=== PATIENT | female | born 1945 | race Caucasian/White ===

== ENCOUNTER 2024-01-08 07:06 | Inpatient (IN) | payer MEDICARE, BC, SELFPAY ==
[2024-01-08] VITALS (22 sets, daily range): BP systolic 117–207; BP diastolic 59–132; PULSE 105–125; RESP 14–28; TEMP 36.4–38.7; O2SAT 92–99; BMI 22.8; BMI 22.5; BMI 22.6
--- NOTE | 2024-01-08 07:14 | CT_ITS ---
EXAM: CT ANGIOGRAPHY HEAD AND NECK WITH INTRAVENOUS CONTRAST CLINICAL INDICATION: Neuro deficit, acute, stroke suspected TECHNIQUE: [place]/head and neck CT angiography protocol performed with intravenous contrast. This CT exam was performed using one or more of the following dose reduction techniques: automated exposure control, adjustment of the mA and/or kV according to patient size, and/or use of iterative reconstruction technique. MIP reconstructed images were created and reviewed. CONTRAST: IV 100mL [id number] RADIATION DOSE: Total DLP: 695.71 mGy-cm. COMPARISON: Nonenhanced cranial CT of this same date. FINDINGS: HEAD: RIGHT ANTERIOR CEREBRAL ARTERY: Nondominant/small A1 segment. No occlusion or significant stenosis. Anterior communicating artery is present. No aneurysm. RIGHT MIDDLE CEREBRAL ARTERY: Unremarkable. No occlusion or significant stenosis. No aneurysm. No filling defect. RIGHT POSTERIOR CEREBRAL ARTERY: Patent posterior communicating artery with hypoplastic P1 segment.. No occlusion or significant stenosis. No aneurysm. RIGHT INTRACRANIAL INTERNAL CAROTID ARTERY: Calcified plaque within the cavernous carotid causes less than 50% stenosis. Calcified plaque in the supraclinoid segment causes moderate stenosis. No dissection or occlusion. RIGHT INTRACRANIAL VERTEBRAL ARTERY: Nondominant. Terminates in PICA. LEFT ANTERIOR CEREBRAL ARTERY: Dominant left A1 segment. No occlusion or significant stenosis. No aneurysm. LEFT MIDDLE CEREBRAL ARTERY: Unremarkable. No occlusion or significant stenosis. No aneurysm. No filling defect. LEFT POSTERIOR CEREBRAL ARTERY: Primarily fills via the basilar tip with a tiny patent posterior communicating artery. 4 mm in length segment of moderate smooth stenosis of the proximal P2 segment, best seen on axial image 85 of series 601 and coronal image 112 of series 605. LEFT INTRACRANIAL INTERNAL CAROTID ARTERY: Calcified plaque in the cavernous carotid causes less than 50% stenosis. Calcified plaque in the supracavernous carotid causes moderate-severe stenosis. No dissection or occlusion. LEFT INTRACRANIAL VERTEBRAL ARTERY: Dominant. Calcified plaque causes mild stenosis of the fourth segment. BASILAR ARTERY: Unremarkable. No occlusion or significant stenosis. No aneurysm. OTHER VASCULATURE: No vascular malformation. The dural venous sinuses enhance normally. No enhancing intracranial mass. No acute infarction identified. NECK: RIGHT COMMON CAROTID ARTERY: Calcified plaque at the carotid bulb causes less than 50% stenosis. No significant stenosis. No dissection or occlusion. RIGHT EXTRACRANIAL INTERNAL CAROTID ARTERY: Unremarkable. No significant stenosis. No dissection or occlusion. RIGHT EXTERNAL CAROTID ARTERY: Severe stenosis at its origin due to calcified plaque. RIGHT EXTRACRANIAL VERTEBRAL ARTERY: Nondominant/very small. No dissection or occlusion. LEFT COMMON CAROTID ARTERY: Calcified plaque at the carotid bulb causes less than 50% stenosis. No significant stenosis. No dissection or occlusion. LEFT EXTRACRANIAL INTERNAL CAROTID ARTERY: Unremarkable. No significant stenosis. No dissection or occlusion. LEFT EXTERNAL CAROTID ARTERY: Calcified plaque at the origin causes less than 50% stenosis. No occlusion. LEFT EXTRACRANIAL VERTEBRAL ARTERY: Dominant. Calcified and noncalcified plaque within the first segment causes a short segment of moderate stenosis. Noncalcified plaque in the proximal second segment causes moderate eccentric stenosis. Calcified plaque in the third segment causes less than 50% stenosis. No dissection or occlusion. BRACHIOCEPHALIC AND SUBCLAVIAN ARTERIES: Unremarkable as visualized. No occlusion or significant stenosis. LUNG APICES: Visualized upper lungs are clear. The upper lobe pulmonary arteries show no filling defects. Aortic arch is normal in caliber and shows no intimal flap. HEAD and NECK: BONES/JOINTS: Severe narrowing of the upper thoracic disc spaces with flowing osteophytes. Degenerative narrowing of the C5/6 disc space. No discrete lytic or blastic abnormalities. SOFT TISSUES: Multiple thyroid nodules are present, larger on the left; calcified thyroid nodules are present and there is also a 2.8 cm heterogeneously enhancing left thyroid nodule, slightly displacing the trachea to the right. CAROTID STENOSIS REFERENCE USING NASCET CRITERIA: % ICA stenosis = (1 - narrowest ICA diameter/diameter of distal cervical ICA) x 100. Mild - <50% stenosis. Moderate - 50-69% stenosis. Severe - 70-94% stenosis. Near occlusion - 95-99% stenosis. Occluded - 100% stenosis. CT/STROKE CTA Head AND Neck W/Con IMPRESSION: No large vessel occlusion or MCA thrombus. Atherosclerotic disease with moderate-severe stenosis distal right ICA, moderate stenosis of the proximal left [employer] HEAD, and 2 segments of moderate stenoses of the left vertebral artery. 2.8 cm heterogeneously enhancing left thyroid nodule; ACR White Paper guidelines (Alfie BRITTON, et al. JACR 2015;12(2):143-50) suggest further evaluation with nonemergent thyroid ultrasound. Nonstandard communication protocol initiated and completed. N.B. : The above Results were Read Back by Marty Weaver MD to Edmond Irwin DO, and understanding confirmed on 01/08/2024 07:57:02 (ET). Electronically Signed: Marty Weaver MD at 8:01 EDT ,
--- NOTE | 2024-01-08 07:14 | EKG12_ITS ---
Test Reason : ALT LOC Blood Pressure : / mmHG Vent. Rate : 110 BPM Atrial Rate : 110 BPM P-R Int : 188 ms QRS Dur : 088 ms QT Int : 338 ms P-R-T Axes : 063 -03 045 degrees QTc Int : 457 ms Sinus tachycardia Otherwise normal ECG Confirmed by Charlie Maravilla ([id number]), makeup editor SULMA HADDAD ([id number]) on 01/09/2024 9:17:21 AM Referred By: Confirmed By:Charlie Maravilla
--- NOTE | 2024-01-08 07:14 | CT_ITS ---
STUDY: CT BRAIN WITHOUT CONTRAST REASON FOR EXAM: Female, 78 years old. Altered mental status. Stroke alert. RADIATION DOSAGE (If Supplied By Facility): CTDIvol = ( 44.99 ) mGy, DLP = ( 1659.71 ) mGycm TECHNIQUE: Transaxial CT imaging of the brain was performed without administration of intravenous contrast material. Individualized dose optimization techniques were used for this CT. COMPARISON: No relevant prior comparison study available FINDINGS: PARENCHYMA: There is no acute bleed or infarct. There are stable chronic ischemic and atrophic changes. VENTRICLES: There is no hydrocephalus. MASTOID AIR CELLS AND PARANASAL SINUSES: The visualized paranasal sinuses are clear. The mastoid air cells are clear. BONES: There is no skull fracture. SOFT TISSUES: The visualized soft tissues are within normal limits. CT/STROKE Brain/Head without Cont IMPRESSION: Stable chronic ischemic and atrophic changes. No acute intracranial abnormality. N.B. : The above Results were Read Back by Sarmad Talley MD to Corey Amador MD, and understanding confirmed on 01/08/2024 07:35:34 (ET). Electronically Signed: Sarmad Talley MD at 7:37 EDT ,
--- NOTE | 2024-01-08 07:42 | EX.ED.DYSGE1 ---
HPI History of Present Illness Chief Complaint: Alt LOC Narrative Narrative: 78-year-old female presenting with confusion. Stroke team was called due to garbled speech and confusion. was not here on arrival. Patient was met at the door by overnight ED physician and patient was taken to CT. Patient's showed up as I entered the room after CAT scan and he tells me that the last known well was 1130 last night when she started acting very erratic. He states he could hear her coming down the hallway with a walker and running into the ramirez and he feels like to look at her it looks like she could not see anything. He stated she walked out to the television and knocked off a speaker and he tried to get her back to bed. He put her in bed and lay down next to her but she was very restless and ended up walking back out to the living room onto their loveseat and was laying in odd positions per the and he states she did not look very comfortable manage to spend about 2 to 3 hours in the loveseat. Eventually he called EMS. Patient's states that they just recently moved and he states it was a very difficult move from [place]. He states that other than this she had done pretty well. She does not have a history of dementia. She does not take any sleep aids, opioids, drugs or abuse. He states that before they left [place] to move here they were constantly at the doctor's office which is more frequent than usual and as of late. Patient is unable to state her name, her speech is somewhat garbled at times. She believes her age is 33 years old. She denies any pain. also states that she was reaching for things in the air that were not there. 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 [facility] Home Medications ?Medication ?Instructions ?Recorded ?Last Taken ?Type atorvastatin 10 mg tablet 10 mg PO DAILY CHOLESTEROL 01/08/24 Unknown History carvedilol 25 mg tablet 25 mg PO BID HEART 01/08/24 Unknown History diltiazem HCl 120 mg 120 mg PO DAILY BLOOD PRESSURE 01/08/24 Unknown History capsule,extended release 24 hr duloxetine 30 mg capsule,delayed 30 mg PO DAILY DEPRESSION 01/08/24 Unknown History release glipizide 2.5 mg tablet, extended 2.5 mg PO DAILY BLOOD SUGAR 01/08/24 Unknown History release 24 hr lisinopril 20 mg tablet 20 mg PO DAILY BLOOD PRESSURE 01/08/24 Unknown History metformin 1,000 mg tablet 1,000 mg PO BID BLOOD SUGAR 01/08/24 Unknown History methimazole 5 mg tablet 5 mg PO UD THYROID 01/08/24 Unknown History omeprazole 20 mg capsule,delayed 20 mg PO DAILY GERD 01/08/24 Unknown History release Allergy/AdvReac Type Severity Reaction Status Date / Time Sulfa (Sulfonamide Allergy Intermediate NEEDS Verified 01/08/24 07:24 Antibiotics) FOLLOW-UP Social History Smoking Status: Never smoker ROS ROS ED Review of Systems ROS Unobtainable: due to mental condition and due to mental status EXAM Physical Exam Const Vital Signs: 01/08/24 07:07 01/08/24 07:14 01/08/24 07:21 Temperature 98.5 F 100.7 F H Temperature Source Oral Core Pulse Rate 105 H 115 H Respiratory Rate 22 H 20 H Blood Pressure 183/113 H 183/113 H Blood Pressure Mean 136 136 Pulse Ox 97 98 Oxygen Delivery Method Room Air Room Air Room Air 01/08/24 07:43 01/08/24 07:44 01/08/24 08:10 Temperature 100.3 F H 100.7 F H 100.8 F H Temperature Source Core Core Core Pulse Rate 115 H 118 H 120 H Respiratory Rate 14 18 20 H Blood Pressure 175/132 H 187/127 H 188/112 H Blood Pressure Mean 146 147 137 Pulse Ox 99 96 96 Oxygen Delivery Method Room Air Room Air Room Air 01/08/24 08:10 01/08/24 09:00 01/08/24 10:00 Temperature 100.8 F H 98.9 F 101.4 F H Temperature Source Core Temporal Core Pulse Rate 120 H 123 H 114 H Respiratory Rate 24 H 20 H 18 Blood Pressure 188/112 H 189/89 H 178/70 H Blood Pressure Mean 137 122 106 Pulse Ox 99 97 97 Oxygen Delivery Method Room Air Room Air Room Air Positive well nourished General Appearance ED: NAD HEENT Reports moist mucous membranes Eyes PERRL and EOMs intact bilaterally General Eye ED: Yes pale conjunctiva Chest Wall inspection of chest normal and palpation of chest normal Resp normal respiratory effort and clear to auscultation bilaterally Auscultation: Negative for rales, rhonchi or wheezes Cardio regular rate and regular rhythm GI normal to inspection, nondistended, normoactive bowel sounds Neuro oriented x3 and CN's II-XII intact bilaterally Sensorium / Orientation: alert Psych Psych Narrative: confused Attitude: agitated MDM MDM MDM Narrative Medical decision making narrative: Patient presenting with confusion. Her speech is slurred. She does not have any focal neurologic deficits or lateralizing signs or symptoms. She is able to move all 4 extremities and follow some commands. This appears to be more metabolic. Differential includes but is not limited to TIA, stroke, ACS, UTI, pneumonia, COVID, influenza, RSV, dehydration, anemia, electrolyte abnormalities. Patient has temperature of 100.3 Fahrenheit and she was given Tylenol. CBC will be obtained to assess white blood cell count, hemoglobin, platelets. BMP to assess renal function, electrolytes, glucose. High-sensitivity troponin and EKG to assess for ischemia/dysrhythmia. Chest x-ray to rule out pneumonia. Urinalysis to assess for UTI. CBC shows slight leukocytosis of 12.3. Hemoglobin 12.7. Platelets are normal 331. Creatinine today is 1.43 with no comparison because she is from out of town. Glucose 566 without anion gap and sodium noted to be low at 130 likely due to the hyperglycemia. Lactic acid minimally elevated at 2.1. High-sensitivity troponin 54. EKG interpreted by myself shows a sinus tachycardia at 110 bpm. Chest x-ray on my interpretation shows no acute cardiopulmonary process. Radiologist interprets this and agrees. CT of the brain and CTA were negative. This does appear to be more metabolic. Urinalysis is negative for infection. Patient's fever was treated with a gram of Tylenol. COVID, influenza, RSV all negative. Patient was given 2 L of IV fluids. Her blood sugar still 531. Patient was given insulin. Discussed all findings with her and we plan to admit the patient due to altered mental status and hyperglycemia. Impression: 1. Altered mental status 2. Hyperglycemia 3. Renal insufficiency Lab Data Labs: Laboratory Results - last 24 hr 01/08/24 01/08/24 01/08/24 06:48 07:42 08:21 WBC 12.3 H RBC 4.58 Hgb 12.7 Hct 40.1 MCV 87.6 MCH 27.7 MCHC 31.7 L RDW Std Deviation 39.3 RDW Coeff of Carmen 12.2 Plt Count 331 MPV 11.1 Immature Gran % (Auto) 0.200 Neut % (Auto) 88.4 H Lymph % (Auto) 6.7 L [place] % (Auto) 3.7 Eos % (Auto) 0.4 Baso % (Auto) 0.6 Absolute Neuts (auto) 10.9 H Absolute Lymphs (auto) 0.82 L Nucleated RBC % 0 PT 15.1 H INR 1.2 APTT 34.3 Sodium 130 L Potassium 4.0 Chloride 93 L Carbon Dioxide 31.0 Anion Gap 6 BUN 26 H Creatinine 1.43 H Estim Creat Clear Calc 31.33 Est GFR (MDRD) Af Amer 46 L Est GFR (MDRD) Non-Af 38 L BUN/Creatinine Ratio 18.2 Glucose 566 H* Lactic Acid 2.1 H* Calcium 10.3 H Total Bilirubin 0.60 Direct Bilirubin 0.21 AST 17 ALT 19 Alkaline Phosphatase 176 H Ammonia 13.0 Troponin I High Sens 54 Total Protein 8.4 H Albumin 4.2 Globulin 4.2 Urine Color Yellow Urine Clarity Clear Urine pH 8.0 Ur Specific [place] 1.010 Urine Protein 30 H Urine Glucose (UA) 1000 H Urine Ketones 15 H Urine Occult Blood 25 H Urine Nitrite Negative Urine Bilirubin Negative Urine Urobilinogen Normal Ur Leukocyte Esterase Negative Urine RBC 0-5 SEEN Urine WBC 0 SEEN Ur Squamous Epith Cells 0 SEEN Urine Bacteria 0 SEEN Urine Mucus 0 SEEN Radiography Diagnostic Testing: Clinical Impression(s) from Imaging Studies Brain CT 01/08/24 07:14 IMPRESSION: Stable chronic ischemic and atrophic changes. No acute intracranial abnormality. N.B. : The above Results were Read Back by Sarmad Talley MD to Corey Amador MD, and understanding confirmed on 01/08/2024 07:35:34 (ET). Electronically Signed: Sarmad Talley MD at 7:37 EDT , ADDENDUM: 01/08/24 0743 IMPRESSION: Stable chronic ischemic and atrophic changes. No acute intracranial abnormality. N.B. : The above Results were Read Back by Sarmad Talley MD to Corey Amador MD, and understanding confirmed on 01/08/2024 07:35:34 (ET). Electronically Signed: Sarmad Talley MD at 7:37 EDT , Head/Neck CTA 01/08/24 07:14 IMPRESSION: No large vessel occlusion or MCA thrombus. 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 2.8 cm heterogeneously enhancing left thyroid nodule; ACR White Paper guidelines (Judge JK, et al. JACR 2015;12(2):143-50) suggest further evaluation with nonemergent thyroid ultrasound. Nonstandard communication protocol initiated and completed. N.B. : The above Results were Read Back by Marty Weaver MD to Edmond Irwin DO, and understanding confirmed on 01/08/2024 07:57:02 (ET). Electronically Signed: Marty Weaver MD at 8:01 EDT , ADDENDUM: 01/08/24 0808 IMPRESSION: No large vessel occlusion or MCA thrombus. 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 2.8 cm heterogeneously enhancing left thyroid nodule; ACR White Paper guidelines (Alfie BRITTON, et al. JACR 2015;12(2):143-50) suggest further evaluation with nonemergent thyroid ultrasound. Nonstandard communication protocol initiated and completed. N.B. : The above Results were Read Back by Marty Weaver MD to Edmond Irwin DO, and understanding confirmed on 01/08/2024 07:57:02 (ET). Electronically Signed: Marty Weaver MD at 8:01 EDT , Chest X-Ray 01/08/24 08:10 IMPRESSION: No acute thoracic pathology. Electronically Signed: Sarmad Talley MD at 8:39 EDT , Discharge Plan Triage Chief Complaint: Alt LOC ED Provider: Edmond Irwin Dx/Rx/DC Orders Prescriptions: No Action methimazole 5 mg tablet 5 mg PO UD Rx Instructions: TAKE ONE TABLET (5 MG) BY MOUTH THREE TIMES A WEEK AND ALSO TAKE 1/2 TABLET (2.5 MG) ONCE A WEEK. diltiazem HCl 120 mg capsule,extended release 24hr 120 mg PO DAILY carvedilol 25 mg tablet 25 mg PO BID atorvastatin 10 mg tablet 10 mg PO DAILY lisinopril 20 mg tablet 20 mg PO DAILY glipizide 2.5 mg tablet extended release 24hr 2.5 mg PO DAILY metformin 1,000 mg tablet 1,000 mg PO BID omeprazole 20 mg capsule,delayed release(DR/EC) 20 mg PO DAILY duloxetine 30 mg capsule,delayed release(DR/EC) 30 mg PO DAILY Primary Care Provider: Radha Orlando Referrals: Radha Orlando DO [Primary Care Provider] - Print Language: Kyrgyz
[2024-01-08 07:53] LABS: Bacteria 0 SEEN /hpf (None Seen); Mucous, Urine 0 SEEN /hpf (<or=2+); Squamous Epithelial Cells - UA 0 SEEN /hpf (5-10); White Blood Cells 0 SEEN /hpf (0-5)
[2024-01-08 07:54] LABS: Color, Urine Yellow (Yellow); Glucose, Dipstick 1000 mg/dl (Normal); Ketone-Dipstick 15 mg/dl (Negative); Leukocyte Esterase-Dipstick Negative /ul (Negative); Nitrite-Dipstick Negative (Negative); Occult Blood-Urine 25 /ul (Negative); Protein-Dipstick 30 mg/dl (Negative); Urine Bilirubin Dipstick Negative (Negative); Urine Clarity Clear (Clear); Urine Urobilinogen Normal (Normal)
[2024-01-08] MEDS: Acetaminophen 500 MG Tablet 1000 MG PO (08:00)
[2024-01-08] MEDS: 0.9% Normal Saline (1000mL) 1,000 ML 999 ML IV ×2 (08:00→09:46)
[2024-01-08 08:04] LABS: Red Blood Cells-Urine 0-5 SEEN /hpf (0-5)
[2024-01-08 08:06] LABS: Anion Gap 6 (5-15); BUN 26 mg/dL (7-18); BUN/Creat Ratio 18.2 RATIO (10-20); Calcium,Total 10.3 mg/dL (8.5-10.1); Chloride 93 mmol/L (98-107); Creatinine, Serum 1.43 mg/dL (0.55-1.02); EST Glomerular Filtration Rate 38 mL/min (>60); Est Glom Filt Rate - Afr Amer 46 mL/min (>60); Estimated Creatinine Clearance 31.33 ml/min; Glucose 566 mg/dL (74-106); Sodium Level 130 mmol/L (136-145); Troponin-I HS 54 pg/mL (3.0-54.0)
--- NOTE | 2024-01-08 08:10 | RAD_ITS ---
STUDY: X-RAY CHEST REASON FOR EXAM: Female, 78 years old. Altered mental status TECHNIQUE: Frontal view of the chest COMPARISON: None. FINDINGS: The lungs are clear. There are no pleural effusions. There is no pneumothorax. The heart is normal in size. The visualized osseous structures are within normal limits. RAD/Chest 1 View IMPRESSION: No acute thoracic pathology. Electronically Signed: Sarmad Talley MD at 8:39 EDT ,
[2024-01-08 08:20] LABS: Absolute Lymphocyte Count 0.82 X10^3/uL (0.83-4.51); Absolute Neutrophil Count 10.9 X10^3/uL (2.0-7.7); Basophil# 0.07 X10^3/uL; Basophil% 0.6 % (0-1); Eosinophil# 0.05 X10^3/uL; Eosinophils% 0.4 % (0-5); Hematocrit 40.1 % (37-47); Hemoglobin 12.7 g/dL (12.0-15.0); Lymphocyte # 0.82 X10^3/ul (0.83-4.51); Lymphocyte % 6.7 % (19-41); Mean Corp Hgb Conc 31.7 g/dL (32-36); Mean Corpuscular Hgb 27.7 pg (27.0-32.0); Mean Corpuscular Volume 87.6 fL (81-99); Mean Platelet Vol. 11.1 fl (6.2-12.0); Monocyte# 0.46 X10^3/uL; Monocyte% 3.7 % (0-10); NRBC Flagged by Analyzer 0 % (0-5); Neutrophil # 10.86 X10^3/uL (2.7-7.7); Neutrophil % 88.4 % (47-70); Platelet Count 331 K/mm3 (150-450); RBC Distribution Width CV 12.2 % (11.6-14.6); RBC Distribution Width SD 39.3 fl (35.1-43.9); Red Blood Count 4.58 M/mm3 (4.2-5.4); White Blood Count 12.3 K/mm3 (4.4-11.0)
[2024-01-08 09:12] LABS: Lactic Acid 2.1 mmol/L (0.4-1.9)
--- NOTE | 2024-01-08 09:12 | ED.RN ---
Critical lab result of a lactic of 2.1. Dr. Irwin notified
[2024-01-08 09:28] LABS: AST(SGOT) 17 U/L (15-37); Alanine Aminotransfer ALT/SGPT 19 U/L (13-56); Albumin, Serum 4.2 g/dL (3.2-5.0); Alkaline Phosphatase 176 U/L (45-117); Bilirubin, Direct 0.21 mg/dL (0.00-0.30); Globulin 4.2 g/dL (2.2-4.2); Protein, Total 8.4 g/dL (6.4-8.2)
[2024-01-08 09:46] LABS: International Normalized Ratio 1.2; Prothrombin Time (Protime)PT. 15.1 SECONDS (11.7-14.9)
[2024-01-08 09:47] LABS: Partial Thromboplast Time 34.3 Seconds (24.1-36.2)
[2024-01-08] MEDS: LORazepam 2 MG/ML Syringe 1 MG IV (09:51)
--- NOTE | 2024-01-08 10:06 | PCM.HP.STD ---
HPI - General General Date of Admission: 01/08/24 Date of Service: 01/08/24 Chief Complaint: Altered mental status with headache HPI Narrative OLY REYES, is a 78 F who presented to [facility] ED on 01/08/2024 with altered mental status and headache. Saw patient at bedside in the ED. Patient's was there initially per ED staff but had left by the time I saw the patient. Patient was very somnolent when I saw her. Per ED staff, had been given a dose of Ativan for altered mentation with agitation, and this was quickly effective but did make her somnolent. She was maintaining her airway without issue and had good oxygen saturations, but she was not responding to any verbal commands and only arousing some to tactile stimulus. Per ED physician, on arrival patient was fairly agitated and was talking nonsensically and not answering questions appropriately. She was apparently grasping for things in the air that were not there. History is obtained from the patient's . Patient and recently moved back to [place] from [place] in early to mid November. noted that patient has had some cognitive decline over the past several months but she was still able to complete all ADLs and was not hindered much by this. He did note that since moving back they have constantly been on the go, and he has been concerned that this has been overwhelming for her and he does note that she has appeared more anxious than normal over the past month or so. Patient has history of anxiety/depression, [id number] type 2 diabetes mellitus, hypothyroidism, hypertension and hyperlipidemia. notes that they have been trying to take her medications on a regular basis but they have both missed some doses over the past few weeks. However, patient was generally in her normal state health until a few days ago. At that time she started to report a slight headache that did not seem to go away with conservative management. Patient then started to become more confused yesterday afternoon and into the evening. She seemed more agitated and twitching then normal and appeared to be having some mild hallucinations. Patient was not able to sleep much overnight and continued to have the symptoms, so brought her in for further evaluation. In the ED, patient was found to be hypertensive with sinus tachycardia and developed fever of 101F. Chest x-ray was unremarkable. UA was unremarkable. Abdomen was soft and nontender to palpation on exam. CT brain without contrast was unremarkable. CTA head/neck showed no large vessel occlusion or MCA thrombus, moderate to severe stenosis of distal right ICA and moderate stenosis of proximal left VISUAL SUPERVISOR; 2.8 cm heterogenously enhancing left thyroid nodule was also noted. Labs were notable for WBC count 12.3, sodium 130, chloride 93, BUN 26, creatinine 1.43 (baseline unknown), glucose 566, A1c 10.6, calcium 10.3. Patient was given some IV fluids and Humalog for the elevated blood sugar and was then admitted for further management. Given concern for possible meningitis, orders were placed for MRI brain with contrast and LP along with a teleneurology consult. MRI brain showed diffuse restricted diffusion in the cerebral cortex bilaterally most pronounced in the parietal occipital regions of indeterminate etiology. Unfortunately, LP was unable to be performed due to patient's severe scoliosis. Discussed patient over the phone with neurology this afternoon and is highest concern was for HSV encephalitis versus bacterial meningitis. He recommended that patient be started on vancomycin, cefepime, ampicillin and IV acyclovir for treatment. Spot EEG ordered. Also recommended that we attempt to complete an LP tomorrow if possible. He also recommended improved control of patient's blood sugars with volume resuscitation to see if this improves her mental status as well. [facility] Home Medications ?Medication ?Instructions ?Recorded ?Last Taken ?Type atorvastatin 10 mg tablet 10 mg PO DAILY CHOLESTEROL 01/08/24 Unknown History carvedilol 25 mg tablet 25 mg PO BID HEART 01/08/24 Unknown History diltiazem HCl 120 mg 120 mg PO DAILY BLOOD PRESSURE 01/08/24 Unknown History capsule,extended release 24 hr duloxetine 30 mg capsule,delayed 30 mg PO DAILY DEPRESSION 01/08/24 Unknown History release glipizide 2.5 mg tablet, extended 2.5 mg PO DAILY BLOOD SUGAR 01/08/24 Unknown History release 24 hr lisinopril 20 mg tablet 20 mg PO DAILY BLOOD PRESSURE 01/08/24 Unknown History metformin 1,000 mg tablet 1,000 mg PO BID BLOOD SUGAR 01/08/24 Unknown History methimazole 5 mg tablet 5 mg PO UD THYROID 01/08/24 Unknown History omeprazole 20 mg capsule,delayed 20 mg PO DAILY GERD 01/08/24 Unknown History release Allergy/AdvReac Type Severity Reaction Status Date / Time Sulfa (Sulfonamide Allergy Intermediate NEEDS Verified 01/08/24 07:24 Antibiotics) FOLLOW-UP Social History Smoking Status: Never smoker ROS Review of Systems ROS Unobtainable: due to encephalopathy Vital Signs Vital Signs Vital Signs: 01/08/24 07:07 01/08/24 07:14 01/08/24 07:21 Temperature 98.5 F 100.7 F H Temperature Source Oral Core Pulse Rate 105 H 115 H Respiratory Rate 22 H 20 H Blood Pressure 183/113 H 183/113 H Blood Pressure Mean 136 136 Pulse Ox 97 98 Oxygen Delivery Method Room Air Room Air Room Air 01/08/24 07:43 01/08/24 07:44 01/08/24 08:10 Temperature 100.3 F H 100.7 F H 100.8 F H Temperature Source Core Core Core Pulse Rate 115 H 118 H 120 H Respiratory Rate 14 18 20 H Blood Pressure 175/132 H 187/127 H 188/112 H Blood Pressure Mean 146 147 137 Pulse Ox 99 96 96 Oxygen Delivery Method Room Air Room Air Room Air 01/08/24 08:10 01/08/24 09:00 01/08/24 10:00 Temperature 100.8 F H 98.9 F 101.4 F H Temperature Source Core Temporal Core Pulse Rate 120 H 123 H 114 H Respiratory Rate 24 H 20 H 18 Blood Pressure 188/112 H 189/89 H 178/70 H Blood Pressure Mean 137 122 106 Pulse Ox 99 97 97 Oxygen Delivery Method Room Air Room Air Room Air Weight Weight: 64.41 kg Body Mass Index (BMI) 22.8 Physical Exam Const Constitutional Narrative: Very somnolent, not arousing to voice and minimally arousing to tactile stimulation. Maintaining airway without issue, breathing comfortably with good oxygen saturations. In no acute distress. HEENT normocephalic and head/scalp atraumatic Chest inspection of chest normal Resp normal respiratory effort, normal air movement, no use of accessory muscles and clear to auscultation bilaterally Cardio no murmurs and peripheral pulses 2+ throughout Cardio Narrative: Tachycardic, regular rhythm. GI normal to inspection, nondistended, normoactive bowel sounds, soft to palpation, non-tender and non-distended Back/Spine normal to inspection Extremity normal to inspection Skin no rashes or lesions noted Results Lab / Micro Data 01/08/24 06:48 01/08/24 06:48 Labs: Laboratory Results - last 24 hr 01/08/24 06:48: WBC 12.3 H, RBC 4.58, Hgb 12.7, Hct 40.1, MCV 87.6, MCH 27.7, MCHC 31.7 L, RDW Std Deviation 39.3, RDW Coeff of Carmen 12.2, Plt Count 331, MPV 11.1, Immature Gran % (Auto) 0.200, Neut % (Auto) 88.4 H, Lymph % (Auto) 6.7 L, Warrick % (Auto) 3.7, Eos % (Auto) 0.4, Baso % (Auto) 0.6, Absolute Neuts (auto) 10.9 H, Absolute Lymphs (auto) 0.82 L, Nucleated RBC % 0, PT 15.1 H, INR 1.2, APTT 34.3, Sodium 130 L, Potassium 4.0, Chloride 93 L, Carbon Dioxide 31.0, Anion Gap 6, BUN 26 H, Creatinine 1.43 H, Estim Creat Clear Calc 31.33, Est GFR (MDRD) Af Amer 46 L, Est GFR (MDRD) Non-Af 38 L, BUN/Creatinine Ratio 18.2, Glucose 566 H*, Calcium 10.3 H, Total Bilirubin 0.60, Direct Bilirubin 0.21, AST 17, ALT 19, Alkaline Phosphatase 176 H, Troponin I High Sens 54, Total Protein 8.4 H, Albumin 4.2, Globulin 4.2 01/08/24 07:42: Urine Color Yellow, Urine Clarity Clear, Urine pH 8.0, Ur Specific [place] 1.010, Urine Protein 30 H, Urine Glucose (UA) 1000 H, Urine Ketones 15 H, Urine Occult Blood 25 H, Urine Nitrite Negative, Urine Bilirubin Negative, Urine Urobilinogen Normal, Ur Leukocyte Esterase Negative, Urine RBC 0-5 SEEN, Urine WBC 0 SEEN, Ur Squamous Epith Cells 0 SEEN, Urine Bacteria 0 SEEN, Urine Mucus 0 SEEN 01/08/24 08:21: Lactic Acid 2.1 H*, Ammonia 13.0 Micro: Microbiology 01/08/24 07:53 Mucosa - Nasopharyngeal SARS-CoV-2, Influenza & RSV (PCR) - Final Imaging Radiology Impression Brain CT 01/08/24 07:14 IMPRESSION: Stable chronic ischemic and atrophic changes. No acute intracranial abnormality. N.B. : The above Results were Read Back by Sarmad Talley MD to Corey Amador MD, and understanding confirmed on 01/08/2024 07:35:34 (ET). Electronically Signed: Sarmad Talley MD at 7:37 EDT , ADDENDUM: 01/08/24 0743 IMPRESSION: Stable chronic ischemic and atrophic changes. No acute intracranial abnormality. N.B. : The above Results were Read Back by Sarmad Talley MD to Corey Amador MD, and understanding confirmed on 01/08/2024 07:35:34 (ET). Electronically Signed: Sarmad Talley MD at 7:37 EDT , Head/Neck CTA 01/08/24 07:14 IMPRESSION: No large vessel occlusion or MCA thrombus. Atherosclerotic disease with moderate-severe stenosis distal right ICA, moderate stenosis of the proximal left V[employer]UAL SUPERVISOR, and 2 segments of moderate stenoses of the left vertebral artery. 2.8 cm heterogeneously enhancing left thyroid nodule; ACR White Paper guidelines (Alfie BRITTON et al. JACR 2015;12(2):143-50) suggest further evaluation with nonemergent thyroid ultrasound. Nonstandard communication protocol initiated and completed. N.B. : The above Results were Read Back by Marty Weaver MD to Edmond Irwin DO, and understanding confirmed on 01/08/2024 07:57:02 (ET). Electronically Signed: Marty Weaver MD at 8:01 EDT , ADDENDUM: 01/08/24 0808 IMPRESSION: No large vessel occlusion or MCA thrombus. Atherosclerotic disease with moderate-severe stenosis distal right ICA, moderate stenosis of the proximal left VISUAL SUPERVISOR, and 2 segments of moderate stenoses of the left vertebral artery. 2.8 cm heterogeneously enhancing left thyroid nodule; ACR White Paper guidelines (Alfie JK, et al. JACR 2015;12(2):143-50) suggest further evaluation with nonemergent thyroid ultrasound. Nonstandard communication protocol initiated and completed. N.B. : The above Results were Read Back by Marty Weaver MD to Edmond Irwin DO, and understanding confirmed on 01/08/2024 07:57:02 (ET). Electronically Signed: Marty Weaver MD at 8:01 EDT , Chest X-Ray 01/08/24 08:10 IMPRESSION: No acute thoracic pathology. Electronically Signed: Sarmad Talley MD at 8:39 EDT , Assessment & Plan Assessment/Plan (1) Acute metabolic encephalopathy: (2) Meningitis: (3) Hyperglycemia due to type 2 diabetes mellitus: (4) Hyponatremia: PLAN: Plan Patient is a 78-year-old female who presented to [facility] ED on 01/08/2024 with altered mental status and headache. 1. 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 Admit under inpatient status to PCU. Teleneurology consulted. MRI brain with contrast on admit with findings concerning for encephalitis versus meningitis. LP unfortunately unable to be performed on day of admission due to severe scoliosis. Given altered mentation, febrile on admission and reported history of headaches for a few days prior to hospitalization, highest concern is for HSV encephalitis versus bacterial meningitis. Per neurology recommendations, patient started on IV vancomycin, cefepime, ampicillin and IV acyclovir. Monitor patient's mental status closely. Will discuss with radiology tomorrow about possibly retrying LP. Avoid deliriogenic medications as able. N.p.o. for now. 2. Poorly controlled type 2 diabetes mellitus with severe hyperglycemia ? A1c 10.6% on admit. Home regimen of glipizide 2.5 mg daily, metformin 1000 mg twice daily. Per , patient has never been on insulin therapy. No prior A1c's available in our system for comparison. Blood glucose 566 on admit. Bicarb normal, no anion gap, no concern for DKA. However, given metabolic encephalopathy there is concern for a possible mild HHS type picture. Patient notably did not appear significantly volume depleted on admit. Will start Lantus 15 units at night, Humalog 5 units with meals plus sliding scale insulin, adjust as needed. Patient currently n.p.o. as noted above. 3. History of hypothyroidism with thyroid nodule ? On home methimazole. TSH 0.39, free T4 1.31 on admit (both in normal range). CTA head/neck did show 2.8 cm heterogenously enhancing thyroid nodule. Thyroid ultrasound ordered for further workup, study completed but read pending. Per , patient has had thyroid nodule followed for the past few years back in [place]. Likely no further inpatient needs once ultrasound has been read, will need outpatient follow-up. 4. Hyponatremia ? Sodium 130 on admit. Chloride 93. Seems most likely secondary to dehydration versus infection. Given supplemental IV fluids on admission. Follow-up a.m. BMP. 5. Elevated creatinine ? Creatinine 1.43 on admit, baseline unknown. Suspect mild bump from baseline due to some degree of dehydration. Given IV fluids on admit as noted above. Follow-up a.m. BMP and urine output. Notably has had clear urine output since admission and UA was noninfectious appearing. Chronic medical conditions: ? Hypertension: Continue home Coreg when able, holding home lisinopril and diltiazem for now. ? Depression/anxiety: Continue home duloxetine when able. ? GERD: Continue home PPI when able. ? Hyperlipidemia: Continue home statin when able. DVT prophylaxis: Heparin subcu CODE STATUS: Full code, unverified Expected disposition: TBD Total clinical time spent by myself addressing the patient's medical issues, reviewing all the data, and collaborating with patient's care team: 75 minutes. Charges/Coding Visit Charges Inpatient E&M: 49490 Init Hosp L3
--- NOTE | 2024-01-08 10:12 | ECHOD_ITS ---
Reason For Study: TIA/CVA Procedure This was a 2D Doppler, Color Flow transthoracic echocardiogram. The study was technically difficult. The study was technically limited. PT unable to follow directions, shaking and agitated nonverbal.,. Exam performed portable in patient room. Left Ventricle Mild concentric left ventricular hypertrophy. Normal LV size. The left ventricular ejection fraction is 65 %. Unable to assess diastolic function based on available data. Right Ventricle Normal right ventricle. Atria The left atrium is moderately enlarged. Normal right atrium. Bubble contrast study is negative for PFO/ASD. Mitral Valve Severe mitral annular calcification. Mild mitral valve stenosis. Tricuspid Valve The tricuspid valve is not well visualized. Aortic Valve Mild diffuse aortic valve thickening. Mild focal aortic valve calcification. Aortic sclerosis, no stenosis. Pulmonic Valve The pulmonic valve is not well visualized. Great Vessels Mildly dilated aortic root. Pericardium/Pleural No pericardial effusion. Medication Performed a rapid injection of agitated mix of 9 cc saline and 1cc air to assess for atrial septal defect. MMode/2D Measurements & Calculations LVIDd: 3.1 cm IVSd: 1.2 cm Ao root diam: 3.3 cm LVIDs: 2.0 cm LVPWd: 1.1 cm FS: 34.2 % LAV(MOD-bp): 59.5 ml LVAd ap4: 16.2 cm2 SV(MOD-sp4): 20.6 ml LAV(MOD-bp) Indexed: 34.4 ml/m2 LVLd ap4: 6.7 cm LAV(MOD-sp2): 57.2 ml EDV(MOD-sp4): 32.2 ml LAV(MOD-sp4): 58.2 ml EDV(sp4-el): 33.1 ml LVAs ap4: 8.6 cm2 LVLs ap4: 5.6 cm ESV(MOD-sp4): 11.5 ml ESV(sp4-el): 11.3 ml EF(MOD-sp4): 64.2 % EF(sp4-el): 65.9 % SV(sp4-el): 21.8 ml LA A4 area: 19.9 cm2 LA dimension(2D): 4.2 cm Doppler Measurements & Calculations Lat Peak E' Yuval: 9.4 cm/sec MV V2 max: 192.8 cm/sec MV P1/2t max yuval: 140.8 cm/sec MV max P.9 mmHg MV P1/2t: 25.6 msec MV V2 mean: 114.4 cm/sec MV mean P.1 mmHg MV dec slope: 1610 cm/sec2 MV V2 VTI: 30.2 cm MVA(P1/2t): 8.6 cm2 Ao V2 max: 119.9 cm/sec LV V1 max: 83.7 cm/sec Ao max P.7 mmHg LV V1 max P.8 mmHg Ao V2 mean: 83.9 cm/sec LV V1 mean P.3 mmHg Ao mean P.1 mmHg LV V1 mean: 54.0 cm/sec Ao V2 VTI: 17.3 cm LV V1 VTI: 11.6 cm AV (velocity ratio): 0.67 ECHO/Echo Complete Interpretation Summary The study was technically difficult. Mild concentric left ventricular hypertrophy. The left ventricular ejection fraction is 65 %. The left atrium is moderately enlarged. Severe mitral annular calcification. Mild mitral valve stenosis. Aortic sclerosis, no stenosis. Mildly dilated aortic root. Bubble contrast study is negative for PFO/ASD. Ordering Physician: Bc Zeng Referring Physician: Radha Orlando Performed By: Ivonne Toussaint RDCS, RVT
--- NOTE | 2024-01-08 10:12 | MRI_ITS ---
STUDY: MRI BRAIN WITH AND WITHOUT CONTRAST REASON FOR EXAM: Female, 78 years old. CVA r/o, assess for infectious findings TECHNIQUE: Standardized multiplanar fat and water weighted pulse sequences were obtained. IV 13cc clariscan was administered for the contrast portion of the examination. COMPARISON: CT of the brain January 08, 2024 FINDINGS: Mild atrophy and minor periventricular white matter disease most likely representing chronic small vessel ischemic changes more pronounced in the frontal lobes. There is nonspecific restricted diffusion within the cerebral cortex bilaterally pronounced involvement of the parietal and occipital regions. Normal bilateral basal ganglia. Normal thalami. There is no extra-axial fluid accumulation. Normal flow voids within the major intracranial circulation suggesting patency by spin echo criteria. Normal venous enhancement. There is no enhancing intra-axial or extra-axial abnormality. Normal sella turcica, pituitary gland, infundibular stalk, optic chiasm and hypothalamus. Normal tectal plate and pineal gland. Normal midbrain, marlen and medulla. Normal cerebellum. Normal basal cisterns. Normal bilateral temporal bones. Normal bilateral internal auditory canals. Postsurgical changes of the orbits. Normal visualized paranasal sinuses. Normal calvarium and skull base. Normal visualized soft tissue structures. Normal visualized upper cervical spine. MRI/Brain W/WO Contrast IMPRESSION: Mild atrophy and minor periventricular white matter ischemic changes Diffuse restricted diffusion in the cerebral cortex bilaterally most pronounced in the parietal occipital regions of indeterminate etiology possibly due to inflammatory disease or less likely anoxic event. There is no enhancement following contrast administration. Clinical correlation is recommended Electronically Signed: Willie Almeida MD at 16:17 EDT ,
[2024-01-08] MEDS: Insulin Lispro 100 UNIT/ML INSULN.PEN 10 UNIT SC (10:30)
[2024-01-08 10:40] LABS: Amphetamine Urine VISTA NEGATIVE (<1000 ng/mL); Barbiturate Urine VISTA NEGATIVE (< 200 ng/mL); Benzodiazepine Urine VISTA NEGATIVE (< 200 ng/mL); Cocaine Urine VISTA NEGATIVE (< 300 ng/mL); Ecstacy Urine VISTA NEGATIVE (< 500 ng/mL); Methadone Urine VISTA NEGATIVE (< 300 ng/mL); PCP Urine VISTA NEGATIVE (< 25 ng/mL); THC Urine VISTA NEGATIVE (< 50 ng/mL); Vista UDS pH Range 6
[2024-01-08 10:55] LABS: T4 Free Direct 1.31 ng/dL (0.76-1.46); Thyroid Stim Hormone (TSH) 0.39 uIU/mL (0.358-3.74)
--- NOTE | 2024-01-08 11:09 | US_ITS ---
INDICATION: heterogenously enhancing thyroid nodule EXAMINATION: Ultrasound US Thyroid (eg thyroid, parathyroid, parotid) TECHNIQUE: An scale and color doppler imaging was performed of the thyroid gland. COMPARISON: January 08, 2024 CT. FINDINGS: RIGHT THYROID LOBE: 4.1 x 1.4 x 1.9 cm. Heterogeneous echotexture with normal vascularity. [ Nodules:. 1. Superior 0.8 x 0.7 x 0.67 mixed cystic solid isoechoic nodule wider than tall with smooth margins and macrocalcifications, TI-RAD 3 2. Mid 1.0 x 0.9 x 0.8 cm mixed cystic solid hypoechoic nodule wider than tall margins and no calcifications, TI RAD 3 3. Inferior 1.2 x 0.9 x 0.8 cm mixed cystic solid hypoechoic nodule wider than tall with smooth margins and punctate echogenic foci, TI RAD 4 LEFT THYROID LOBE: 5.5 x 2.7 x 2.7 cm. Heterogeneous echotexture with normal vascularity. [ Nodules: 1. Superior 1.2 x 1.2 x 1.1 cm mixed cystic solid isoechoic nodule wider than tall with smooth margins and no calcifications, TI RADS 2 2. Mid 1.8 x 2.3 x 2.3 cm spongiform isoechoic nodule wider than tall with smooth margins and no calcification, TI RAD 1 3. Inferior 2.3 x 2.0 x 2.3 cm mixed cystic solid hypoechoic nodule wider than tall with smooth margins and echogenic likely prominent tissue interfaces, TI RAD 3 ISTHMUS: 0.3 cm. No thyroid nodules are present. US/Thyroid IMPRESSION: Multinodular goiter with up to 2.3 cm left thyroid TI-RAD 3 lesion and 1.2 cm right thryoid TI-RAD 4 lesion for which 1 year follow-up ultrasound is recommended by ACR TI RADS criteria Electronically Signed: Danielito Moore MD at 3:00 EDT ,
[2024-01-08 11:18] LABS: Bedside Glucose > 500 mg/dL (74-106)
[2024-01-08 11:42] LABS: Hemoglobin A1c 10.6 % (3.8-5.6)
[2024-01-08 12:28] LABS: Reflex Lactate? Y
[2024-01-08] MEDS: LORazepam 2 MG/ML Syringe 0.5 MG IV (13:50)
[2024-01-08] MEDS: Insulin Lispro 100 UNIT/ML INSULN.PEN SC ×3 (16:04→21:53)
[2024-01-08 16:37] LABS: Bedside Glucose 340 mg/dL (74-106)
--- NOTE | 2024-01-08 17:10 | NEURO.CONS ---
Assessment and Plan: Neuro Assessment/Plan 78 yo woman with HTN, HLD who is presenting with confusion that developed over night, fever, and reported headache for the past few days preceding her presentation. MRI brain inconclusive for abnormal findings, will need to repeat. Presentation is concerning for INTERLOCKER infection/HSV. Attempted LP with no success due to scoliosis. HHS can cause fevers, but would expect a higher level of sugar. Hyperglycemia as a cause of her presentation remain on the differential Recommendations: -? INTERLOCKER coverage with Acyclovir/Vanc/Cef/Amp -? IR for attempting repeat LP tomorrow -? EEG -? Appropriate correction of sugar -? Medical infectious workup Will follow how she is doing tomorrow I personally attended this patient and spent a total time of 60 minutes evaluating this patient including clinical assessment, review of chart, medical history imaging, and determining appropriate treatment and workup. HPI Consult Data Date of Consult: 01/08/24 HPI Narrative HPI Narrative: 78 yo woman who presented with altered mental status She has a past medical history of HLD, HTN, DM, Hyperthyroidism Per , at baseline she uses a walker, they go out for limited walks and to the store but not much. She takes care of all her ADLs at home. Cognitively, there has been increasing amount of loss of memory over the past few years, ?things don?t stick that long?. Per , what happened last night is absolutely abnormal, She was at her baseline prior going to bed, she had a phone call with her sister right before 10 PM. She went into the master bedroom. The following events happened over the course of 3-4 hours. Shortly after going to bed, around midnight, he realized she was up moving around on her walker. She was coming down the hallway and bumping into things. When he saw her coming around the corner, she was leaning forward on the R side onto the walker, knocked over few things, she seemed confused, she was trying to express herself, but not clearly able to do so and she was getting frustrated, this gradually got worse. He got to calm her down a bit and was able to get her back in bed, she stayed there for a bit, then got up again and continued to wander around the house, and then she got very week and was unable to carry herself around. She rarely complains about headaches, but over the past couple days she has been bad headache and was taking extra OTC for headache. No prior history of seizures. She used to check her sugar at home but has not checked it in months. Usually her sugar runs in the mid 100s. In the ER, Febrile 101, WBC 12, BG 500s, Na 139, Cr 1.43, Utox negative, UA non-infections, CXR clear. TSH wnl LP was attempted but unsuccessful due to severe scoliosis MRI brain read with diffuse cortical DWI but on my personal review, these findings are not clear enough and could be artifactual due to movement. ?Will need to repeat MRI brain in a couple days. [facility] Home Medications ?Medication ?Instructions ?Recorded ?Last Taken ?Type atorvastatin 10 mg tablet 10 mg PO DAILY CHOLESTEROL 01/08/24 Unknown History carvedilol 25 mg tablet 25 mg PO BID HEART 01/08/24 Unknown History diltiazem HCl 120 mg 120 mg PO DAILY BLOOD PRESSURE 01/08/24 Unknown History capsule,extended release 24 hr duloxetine 30 mg capsule,delayed 30 mg PO DAILY DEPRESSION 01/08/24 Unknown History release glipizide 2.5 mg tablet, extended 2.5 mg PO DAILY BLOOD SUGAR 01/08/24 Unknown History release 24 hr lisinopril 20 mg tablet 20 mg PO DAILY BLOOD PRESSURE 01/08/24 Unknown History metformin 1,000 mg tablet 1,000 mg PO BID BLOOD SUGAR 01/08/24 Unknown History methimazole 5 mg tablet 5 mg PO UD THYROID 01/08/24 Unknown History omeprazole 20 mg capsule,delayed 20 mg PO DAILY GERD 01/08/24 Unknown History release Allergy/AdvReac Type Severity Reaction Status Date / Time Sulfa (Sulfonamide Allergy Intermediate NEEDS Verified 01/08/24 07:24 Antibiotics) FOLLOW-UP Social History Smoking Status: Never smoker Vital Signs Vital Signs Vital Signs: 01/08/24 07:07 01/08/24 07:14 01/08/24 07:21 Temperature 98.5 F 100.7 F H Temperature Source Oral Core Pulse Rate 105 H 115 H Respiratory Rate 22 H 20 H Respiratory Pattern Blood Pressure 183/113 H 183/113 H Blood Pressure Mean 136 136 Blood Pressure Source Blood Pressure Position Blood Pressure Location Pulse Ox 97 98 Oxygen Delivery Method Room Air Room Air Room Air 01/08/24 07:43 01/08/24 07:44 01/08/24 08:10 Temperature 100.3 F H 100.7 F H 100.8 F H Temperature Source Core Core Core Pulse Rate 115 H 118 H 120 H Respiratory Rate 14 18 20 H Respiratory Pattern Blood Pressure 175/132 H 187/127 H 188/112 H Blood Pressure Mean 146 147 137 Blood Pressure Source Blood Pressure Position Blood Pressure Location Pulse Ox 99 96 96 Oxygen Delivery Method Room Air Room Air Room Air 01/08/24 08:10 01/08/24 09:00 01/08/24 10:00 Temperature 100.8 F H 98.9 F 101.4 F H Temperature Source Core Temporal Core Pulse Rate 120 H 123 H 114 H Respiratory Rate 24 H 20 H 18 Respiratory Pattern Blood Pressure 188/112 H 189/89 H 178/70 H Blood Pressure Mean 137 122 106 Blood Pressure Source Blood Pressure Position Blood Pressure Location Pulse Ox 99 97 97 Oxygen Delivery Method Room Air Room Air Room Air 01/08/24 10:25 01/08/24 11:00 01/08/24 11:31 Temperature 101.6 F H 97.6 F L 97.6 F L Temperature Source Temporal Temporal Pulse Rate 113 H 123 H 123 H Respiratory Rate 18 18 18 Respiratory Pattern Blood Pressure 176/64 H 182/68 H 182/68 H Blood Pressure Mean 101 106 106 Blood Pressure Source Monitor Blood Pressure Position Supine Blood Pressure Location Right Arm Pulse Ox 98 98 98 Oxygen Delivery Method Room Air Room Air 01/08/24 13:02 01/08/24 13:30 01/08/24 13:34 Temperature 97.9 F Temperature Source Temporal Pulse Rate 123 H 122 H Respiratory Rate 18 18 Respiratory Pattern Normal Blood Pressure 157/92 H 152/75 H Blood Pressure Mean 113 100 Blood Pressure Source Monitor Monitor Blood Pressure Position Supine Supine Blood Pressure Location Right Arm Right Arm Pulse Ox 99 99 98 Oxygen Delivery Method Room Air Room Air Room Air 01/08/24 14:00 01/08/24 14:49 01/08/24 15:04 Temperature 100.5 F H Temperature Source Axillary Pulse Rate 117 H 117 H Respiratory Rate 20 H 20 H Respiratory Pattern Blood Pressure 166/88 H 166/88 H 193/100 H Blood Pressure Mean 114 114 131 Blood Pressure Source Monitor Monitor Monitor Blood Pressure Position Sitting Supine Supine Blood Pressure Location Right Arm Right Arm Right Arm Pulse Ox 97 97 92 Oxygen Delivery Method Room Air Room Air Room Air 01/08/24 15:14 01/08/24 15:24 01/08/24 16:06 Temperature 97.8 F Temperature Source Temporal Pulse Rate 125 H 122 H 116 H Respiratory Rate 16 20 H Respiratory Pattern Blood Pressure 207/95 H 194/106 H 149/99 H Blood Pressure Mean 132 135 115 Blood Pressure Source Monitor Monitor Monitor Blood Pressure Position Supine Supine Supine Blood Pressure Location Right Arm Left Arm Right Arm Pulse Ox 97 97 99 Oxygen Delivery Method Room Air Room Air Room Air 01/08/24 16:50 Temperature 100.6 F H Temperature Source Axillary Pulse Rate 114 H Respiratory Rate 21 H Respiratory Pattern Blood Pressure 149/99 H Blood Pressure Mean 115 Blood Pressure Source Monitor Blood Pressure Position Sitting Blood Pressure Location Right Arm Pulse Ox 99 Oxygen Delivery Method Room Air Weight Weight: 63.5 kg Body Mass Index (BMI) 22.5 EEG Results Procedure Details EEG Procedure Details: OLY REYES is a 78 year old F with a past medical history of , who presents for evaluation of Electroencephalogram on DATE at TIME NIHSS NIHSS Nursing Documentation NIHSS Nursing Documentation: NIHSS: Ischemic Stroke/TIA Start: 01/08/24 11:07 Text: For ICU Patients: NIH sroke scale at Status: Active presentation and every 2 hours or with change in RN caregiver Freq: [id number] Protocol: Activity Type Activity Date Activity User E-sign Co-sign Detail Recorded Client Recorded Date Recorded By Document 01/08/24 16:00 NB desktop 01/08/24 16:14 01/08/24 16:00 NIH Stroke Scale [NIHSS] A score of 0 is normal or asymptomatic . Total possible score is 42. Inpatient: RN or Physician to activate a stroke alert for onset of new stroke symptoms or with NIHSS increase >/= 3 points. Following change in neurological status, NIHSS will be performed per physician order or more frequently PRN. -1a. Level of Consciousness Not alert; -1b. LOC Questions Answers neither question correctly. -1c. LOC Commands Performs neither task correctly. -2. Best Gaze Partial gaze palsy; -5a. Left Arm UN=Amputation or joint fusion , explain: -'UN' explanation pt unable to follow commands -5b. Right Arm UN=Amputation or joint fusion , explain: -'UN' explanation pt unable to follow commands -6a. Left Leg UN= Amputation or joint fusion , explain: -'UN' explanation pt unable to follow commands -6b. Right Leg UN= Amputation or joint fusion , explain: -'UN' explanation pt unable to follow commands -7. Limb Ataxia UN=Amputation or joint fusion , explain -'UN' explanation pt unable to follow commands -9. Best Language Mute, global aphasia; -10. Dysarthria UN=Intubated or other physical barrier, explain: -'UN' explanation pt not responding verbally -Total 10 Query Text:A score of 0 is normal or asymptomatic. Total possible score is 42 . ED: Notify Physician for NIHSS increase by > / = 3 points. Inpatient: RN or Physician to activate a stroke alert for NIHSS increase of > / = 3 points. Coma Scale [Assess] -Eye Opening To Voice -Motor Withdraws to Pain -Verbal None [Total] -Coma Scale Total 8 Physical Exam Narrative Exam limited She is lying in bed, opens eyes to voice briefly, withdraws to pain in all extremities Lab / Micro Data 01/08/24 06:48 01/08/24 06:48 Labs: Laboratory Results - last 24 hr 01/08/24 06:48: WBC 12.3 H, RBC 4.58, Hgb 12.7, Hct 40.1, MCV 87.6, MCH 27.7, MCHC 31.7 L, RDW Std Deviation 39.3, RDW Coeff of Carmen 12.2, Plt Count 331, MPV 11.1, Immature Gran % (Auto) 0.200, Neut % (Auto) 88.4 H, Lymph % (Auto) 6.7 L, Patrick % (Auto) 3.7, Eos % (Auto) 0.4, Baso % (Auto) 0.6, Absolute Neuts (auto) 10.9 H, Absolute Lymphs (auto) 0.82 L, Nucleated RBC % 0, PT 15.1 H, INR 1.2, APTT 34.3, Sodium 130 L, Potassium 4.0, Chloride 93 L, Carbon Dioxide 31.0, Anion Gap 6, BUN 26 H, Creatinine 1.43 H, Estim Creat Clear Calc 31.33, Est GFR (MDRD) Af Amer 46 L, Est GFR (MDRD) Non-Af 38 L, BUN/Creatinine Ratio 18.2, Glucose 566 H*, Hemoglobin A1c 10.6 H, Calcium 10.3 H, Total Bilirubin 0.60, Direct Bilirubin 0.21, AST 17, ALT 19, Alkaline Phosphatase 176 H, Troponin I High Sens 54, Total Protein 8.4 H, Albumin 4.2, Globulin 4.2, TSH 0.39, Free T4 1.31 01/08/24 07:42: Urine Color Yellow, Urine Clarity Clear, Urine pH 8.0, Ur Specific [place] 1.010, Urine Protein 30 H, Urine Glucose (UA) 1000 H, Urine Ketones 15 H, Urine Occult Blood 25 H, Urine Nitrite Negative, Urine Bilirubin Negative, Urine Urobilinogen Normal, Ur Leukocyte Esterase Negative, Urine RBC 0-5 SEEN, Urine WBC 0 SEEN, Ur Squamous Epith Cells 0 SEEN, Urine Bacteria 0 SEEN, Urine Mucus 0 SEEN, Urine Opiates Screen NEGATIVE, Urine Methadone Screen NEGATIVE, Ur Barbiturates Screen NEGATIVE, Ur Phencyclidine Scrn NEGATIVE, Ur Amphetamines Screen NEGATIVE, MDMA (Ecstasy) Screen NEGATIVE, U Benzodiazepines Scrn NEGATIVE, Urine Cocaine Screen NEGATIVE, U Cannabinoids Screen NEGATIVE, Ur Drug Screen Comment 01/08/24 08:21: Lactic Acid 2.1 H*, Ammonia 13.0 01/08/24 09:53: POC Glucose > 500 H* 01/08/24 16:00: POC Glucose 340 H Micro: Microbiology 01/08/24 07:53 Mucosa - Nasopharyngeal SARS-CoV-2, Influenza & RSV (PCR) - Final Imaging Radiology Impression Brain CT 01/08/24 07:14 IMPRESSION: Stable chronic ischemic and atrophic changes. No acute intracranial abnormality. N.B. : The above Results were Read Back by Sarmad Talley MD to Corey Amador MD, and understanding confirmed on 01/08/2024 07:35:34 (ET). Electronically Signed: Sarmad Talley MD at 7:37 EDT , ADDENDUM: 01/08/24 0743 IMPRESSION: Stable chronic ischemic and atrophic changes. No acute intracranial abnormality. N.B. : The above Results were Read Back by Sarmad Talley MD to Corey Amador MD, and understanding confirmed on 01/08/2024 07:35:34 (ET). Electronically Signed: Sarmad Talley MD at 7:37 EDT , Head/Neck CTA 01/08/24 07:14 IMPRESSION: No large vessel occlusion or MCA thrombus. 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 2.8 cm heterogeneously enhancing left thyroid nodule; ACR White Paper guidelines (Judge JK, et al. JACR 2015;12(2):143-50) suggest further evaluation with nonemergent thyroid ultrasound. Nonstandard communication protocol initiated and completed. N.B. : The above Results were Read Back by Marty Weaver MD to Edmond Irwin DO, and understanding confirmed on 01/08/2024 07:57:02 (ET). Electronically Signed: Marty Weaver MD at 8:01 EDT , ADDENDUM: 01/08/24 0808 IMPRESSION: No large vessel occlusion or MCA thrombus. 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 2.8 cm heterogeneously enhancing left thyroid nodule; ACR White Paper guidelines (Alfie BRITTON, et al. JACR 2015;12(2):143-50) suggest further evaluation with nonemergent thyroid ultrasound. Nonstandard communication protocol initiated and completed. N.B. : The above Results were Read Back by Marty Weaver MD to Edmond Irwin DO, and understanding confirmed on 01/08/2024 07:57:02 (ET). Electronically Signed: Marty Weaver MD at 8:01 EDT , Chest X-Ray 01/08/24 08:10 IMPRESSION: No acute thoracic pathology. Electronically Signed: Sarmad Talley MD at 8:39 EDT , Brain MRI 01/08/24 10:12 IMPRESSION: Mild atrophy and minor periventricular white matter ischemic changes Diffuse restricted diffusion in the cerebral cortex bilaterally most pronounced in the parietal occipital regions of indeterminate etiology possibly due to inflammatory disease or less likely anoxic event. There is no enhancement following contrast administration. Clinical correlation is recommended Electronically Signed: Willie Almeida MD at 16:17 EDT , ADDENDUM: 01/08/24 1628 IMPRESSION: undefined Echocardiogram 01/08/24 10:12 Interpretation Summary The study was technically difficult. Mild concentric left ventricular hypertrophy. The left ventricular ejection fraction is 65 %. The left atrium is moderately enlarged. Severe mitral annular calcification. Mild mitral valve stenosis. Aortic sclerosis, no stenosis. Mildly dilated aortic root. Bubble contrast study is negative for PFO/ASD. Ordering Physician: Bc Zeng Referring Physician: Radha Orlando Performed By: Ivonne Toussaint, SHAHEEN, RVT Active Medications Active Medications Active Medications: Current Medications Generic Name Dose Route Start Last Admin Trade Name Freq PRN Reason Stop Dose Admin Acetaminophen 650 mg 01/08/24 11:07 Acetaminophen 325 Mg Tablet PO Q4H PRN PRN Pain 1-10 Or Fever>99.6 Aspirin 81 mg 01/09/24 08:00 Aspirin 81 Mg Tab.Chew PO BREAKFAST [facility] Atorvastatin Calcium 40 mg 01/08/24 22:00 Atorvastatin Calcium 40 Mg Tablet PO QHS [facility] Carvedilol 25 mg 01/08/24 10:25 01/08/24 11:56 Carvedilol 25 Mg Tablet PO Not Given BID [facility] Protocol Duloxetine HCl 30 mg 01/09/24 10:00 Duloxetine Hcl 30 Mg Capsule PO DAILY [facility] Glucagon 1 mg 01/08/24 11:07 Glucagon 1 Mg/Ml Syringe IM X1 PRN Hypoglycemia Protocol Hydralazine HCl 5 mg 01/08/24 11:07 Hydralazine 20 Mg/Ml Vial IV 01/09/24 11:07 Q30M PRN maintain BP parameters with HR <60 Dextrose 250 mls @ 0 mls/hr 01/08/24 11:07 Dextrose 10%-Water IV .Q0M PRN HYPOGLYCEMIA Protocol As Directed Vancomycin IV-PHARMACY TO DOSE 500 mls @ 250 mls/hr 01/08/24 15:56 1 each/ Sodium Chloride IV X1 PRN Rx to Dose Protocol Cefepime HCl 2 gm/ Sodium 100 mls @ 200 mls/hr 01/08/24 16:00 Chloride IV Q12 [facility] Vancomycin HCl 1,500 mg/ 530 mls @ 250 mls/hr 01/08/24 16:30 Sodium Chloride IV 01/08/24 18:37 X1 ONE Acyclovir Sodium 595 mg/ 261.9 mls @ 261.9 mls/hr 01/08/24 17:10 Dextrose IV Q8 [facility] Ampicillin Sodium 2 gm/ Sodium 100 mls @ 200 mls/hr 01/08/24 17:10 Chloride IV Q4 [facility] Insulin Glargine 15 unit 01/08/24 22:00 Insulin Glargine-Yfgn 100 Unit/Ml Pen SC QHS [facility] Protocol Insulin Human Lispro 5 unit 01/08/24 11:07 01/08/24 16:04 Insulin Lispro 100 Unit/Ml Insuln.Pen SC 5 unit TIDAC [facility] Administration Protocol Insulin Human Lispro 0 unit 01/08/24 11:07 01/08/24 16:05 Insulin Lispro 100 Unit/Ml Insuln.Pen SC 8 u ACHS [facility] Administration Protocol Labetalol HCl 20 mg 01/08/24 07:14 Labetalol (Compound) 20 Mg/4 Ml Syringe IV 01/09/24 07:14 X1 PRN BLOOD PRESSURE Labetalol HCl 10 - 20 mg 01/08/24 11:07 Labetalol (Compound) 20 Mg/4 Ml Syringe IV 01/09/24 11:07 Q10M PRN PRN maintain BP parameters with HR >/=60 Melatonin 3 mg 01/08/24 11:07 Melatonin 3 Mg Tablet PO QHS PRN PRN INSOMNIA Methimazole 2.5 mg 01/08/24 16:30 Methimazole 5 Mg Tablet PO DAILY [facility] Ondansetron HCl 4 mg 01/08/24 11:07 Ondansetron 4 Mg/2 Ml Vial IV Q8H PRN PRN NAUSEA/VOMITING Pantoprazole Sodium 20 mg 01/09/24 10:00 Pantoprazole Sodium 20 Mg Tablet PO DAILY [facility]ARIS Sodium Chloride 10 - 40 ml 01/08/24 11:55 0.9% Saline Lock 10 Ml Syringe IV UD PRN SALINE FLUSH
[2024-01-08] MEDS: Cefepime HCl 2 GM in 0.9% Normal Saline (100mL MB+) 100 ML IV ×2 (17:12→21:57)
[2024-01-08 17:13] LABS: Lactic Acid 1.7 mmol/L (0.4-1.9)
[2024-01-08] MEDS: Vancomycin HCl 1,500 MG in 0.9% Normal Saline (500mL Bag) 500 ML 250 MG IV (17:45)
[2024-01-08] MEDS: WATER IV (18:28)
[2024-01-08] MEDS: DEXTROSE 5% IV (18:28)
[2024-01-08] MEDS: ACYCLOVIR IV (18:28)
--- NOTE | 2024-01-08 19:37 | PCM.RX.CS ---
Consult Antibiotic Management Pharmacy has been consulted to manage selected antibiotic: Vancomycin Type of Intervention Type of Consult: New start Suspected Infection Suspected Infection: Meningitis Labs Labs: Sodium 130 mmol/L (136-145) L 01/08/24 06:48 Potassium 4.0 mmol/L (3.5-5.1) 01/08/24 06:48 Chloride 93 mmol/L (98-107) L 01/08/24 06:48 Carbon Dioxide 31.0 mmol/L (21.0-32.0) 01/08/24 06:48 Anion Gap 6 (5-15) 01/08/24 06:48 BUN 26 mg/dL (7-18) H 01/08/24 06:48 Creatinine 1.43 mg/dL (0.55-1.02) H 01/08/24 06:48 Est GFR (MDRD) Af Amer 46 mL/min (>60) L 01/08/24 06:48 Est GFR (MDRD) Non-Af 38 mL/min (>60) L 01/08/24 06:48 BUN/Creatinine Ratio 18.2 RATIO (10-20) 01/08/24 06:48 Glucose 566 mg/dL (74-106) H* 01/08/24 06:48 Microbiology Microbiology: Microbiology 01/08/24 07:53 Mucosa - Nasopharyngeal SARS-CoV-2, Influenza & RSV (PCR) - Final Dosing Weight Weight used for dosin.5 kg Goal Trough Goal Trough: 15-20 mcg/mL Pharmacy Plan for Drug Dosing Pharmacy Plan for Drug Dosing: NEW START IV VANCOMYCIN Consulting Physician: Dr. Zeng Indication: Possible meningitis Goal Trough: 15-20 SrCr: 1.43 CrCl: 31 ml/min Comments: pt received a 1500mg loading dose on 01/08/24 at 1745 Vancomycin Dose: based on patients weight and renal function, recommend an initial dose of 750mg q24h starting 01/09/24 at 1800. trough prior to the 3rd dose Pending Level: 01/10/24 at 1730 Pharmacy Service will continue to monitor and adjust dosing as required. Follow-Up Labs Follow-Up Labs: Trough: Vancomycin (01/10/24 at 1730)
[2024-01-08] MEDS: Ampicillin 2 GM in 0.9% Normal Saline (100mL MB+) 100 ML IV (19:56)
[2024-01-08] MEDS: Insulin Glargine-YFGN 100 UNIT/ML Pen 15 UNIT SC (21:55)
[2024-01-08 22:32] LABS: Bedside Glucose 240 mg/dL (74-106)
[2024-01-09] VITALS (7 sets, daily range): BP systolic 121–151; BP diastolic 63–94; PULSE 80–112; RESP 11–18; TEMP 36.5–38.1; O2SAT 96–100; BMI 22.5
[2024-01-09] MEDS: Acetaminophen 650 MG Suppository RC (02:06)
[2024-01-09] MEDS: Ampicillin 2 GM in 0.9% Normal Saline (100mL MB+) 100 ML IV ×3 (05:44→21:25)
[2024-01-09 06:39] LABS: Absolute Neutrophil Count 10.1 X10^3/uL (2.0-7.7); Basophil# 0.05 X10^3/uL; Basophil% 0.4 % (0-1); Hematocrit 34.5 % (37-47); Hemoglobin 10.9 g/dL (12.0-15.0); Lymphocyte % 13.5 % (19-41); Mean Corp Hgb Conc 31.6 g/dL (32-36); Mean Corpuscular Hgb 27.5 pg (27.0-32.0); Mean Corpuscular Volume 87.1 fL (81-99); Mean Platelet Vol. 11.1 fl (6.2-12.0); Monocyte# 1.33 X10^3/uL; NRBC Flagged by Analyzer 0 % (0-5); Neutrophil # 10.05 X10^3/uL (2.7-7.7); Neutrophil % 75.6 % (47-70); Platelet Count 286 K/mm3 (150-450); RBC Distribution Width CV 12.5 % (11.6-14.6); RBC Distribution Width SD 39.9 fl (35.1-43.9); Red Blood Count 3.96 M/mm3 (4.2-5.4); White Blood Count 13.3 K/mm3 (4.4-11.0)
[2024-01-09 07:05] LABS: Anion Gap 7 (5-15); BUN 26 mg/dL (7-18); BUN/Creat Ratio 20.6 RATIO (10-20); Calcium,Total 10.2 mg/dL (8.5-10.1); Chloride 104 mmol/L (98-107); Creatinine, Serum 1.26 mg/dL (0.55-1.02); EST Glomerular Filtration Rate 44 mL/min (>60); Est Glom Filt Rate - Afr Amer 53 mL/min (>60); Estimated Creatinine Clearance 35.56 ml/min; Glucose 218 mg/dL (74-106); Potassium 3.4 mmol/L (3.5-5.1); Sodium Level 139 mmol/L (136-145)
[2024-01-09 07:09] LABS: Cholesterol 135 mg/dL (200); High Density Lipoprotein 68 mg/dL; Triglycerides 64 mg/dL; Very Low Density Lipoprotein 13 mg/dL (5-40)
[2024-01-09] MEDS: Cefepime HCl 2 GM in 0.9% Normal Saline (100mL MB+) 100 ML IV ×2 (08:26→21:35)
[2024-01-09] MEDS: Insulin Lispro 100 UNIT/ML INSULN.PEN SC ×3 (08:26→15:47)
--- NOTE | 2024-01-09 09:19 | NEURO.PNOTE ---
Assessment and Plan: Neuro Assessment/Plan 78 yo woman with HTN, HLD who is presenting with confusion that developed over one night, fever, and reported headache for the past few days preceding her presentation. MRI brain inconclusive for abnormal findings, will need to repeat. Presentation is concerning for ACTIVITIES OFFICER infection/HSV. Attempted LP with no success due to scoliosis. HHS can cause fevers, but would expect a higher level of sugar. Hyperglycemia as a cause of her presentation remain on the differential Today she is a little bit better, she is waking up opening eyes, trying to speak, following some simple commands with coaching but inconsistently. Low grade fever 100. Recommendations: -? Would continue ACTIVITIES OFFICER coverage with Acyclovir/Vanc/Cef/Amp and touch base again wtih IR regarding re-attempting lumbar puncture -? Pending EEG - Repeat MRI brain tomorrow -? Appropriate correction of sugar -? Medical infectious workup - Will continue to follow clinically if she makes significant improvement will consider de-escalating ACTIVITIES OFFICER coverage as wouldn't expect such dramatic improvement over a day of Abx. I personally attended this patient and spent a total time of 30 minutes evaluating this patient including clinical assessment, review of chart, medical history imaging, and determining appropriate treatment and workup. Subject: Neurology Subjective No acute events over night. Temp 100 She is more awake today, remain confused. Following some simple commands intermittently. NIHSS NIHSS Nursing Documentation NIHSS Nursing Documentation: NIHSS: Ischemic Stroke/TIA Start: 01/08/24 11:07 Text: For ICU Patients: NIH sroke scale at Status: Complete presentation and every 2 hours or with change in RN caregiver Freq: [id number] Protocol: Activity Type Activity Date Activity User E-sign Co-sign Detail Recorded Client Recorded Date Recorded By Document 01/08/24 18:00 NB desktop 01/08/24 18:15 NB 01/08/24 18:00 NIH Stroke Scale [NIHSS] A score of 0 is normal or asymptomatic . Total possible score is 42. Inpatient: RN or Physician to activate a stroke alert for onset of new stroke symptoms or with NIHSS increase >/= 3 points. Following change in neurological status, NIHSS will be performed per physician order or more frequently PRN. -1a. Level of Consciousness Not alert; -1b. LOC Questions Answers neither question correctly. -1c. LOC Commands Performs neither task correctly. -2. Best Gaze Partial gaze palsy; -5a. Left Arm UN=Amputation or joint fusion , explain: -'UN' explanation pt unable to follow commands -5b. Right Arm UN=Amputation or joint fusion , explain: -'UN' explanation pt unable to follow commands -6a. Left Leg UN= Amputation or joint fusion , explain: -'UN' explanation pt unable to follow commands -6b. Right Leg UN= Amputation or joint fusion , explain: -'UN' explanation pt unable to follow commands -7. Limb Ataxia UN=Amputation or joint fusion , explain -'UN' explanation pt unable to follow commands -9. Best Language Mute, global aphasia; -10. Dysarthria UN=Intubated or other physical barrier, explain: -'UN' explanation pt not responding verbally -Total 10 Query Text:A score of 0 is normal or asymptomatic. Total possible score is 42 . ED: Notify Physician for NIHSS increase by > / = 3 points. Inpatient: RN or Physician to activate a stroke alert for NIHSS increase of > / = 3 points. Coma Scale [Assess] -Eye Opening To Voice -Motor Withdraws to Pain -Verbal None [Total] -Coma Scale Total 8 NIHSS: Ischemic Stroke/TIA Start: 01/08/24 11:07 Text: For PCU Patients: NIH and Neuro Check every 4 Status: Complete hours, PRN and with change in RN caregiver. Freq: [id number] Protocol: Activity Type Activity Date Activity User E-sign Co-sign Detail Recorded Client Recorded Date Recorded By Document 01/08/24 18:00 NB desktop 01/08/24 18:15 NB 01/08/24 18:00 NIH Stroke Scale [NIHSS] A score of 0 is normal or asymptomatic . Total possible score is 42. Inpatient: RN or Physician to activate a stroke alert for onset of new stroke symptoms or with NIHSS increase >/= 3 points. Following change in neurological status, NIHSS will be performed per physician order or more frequently PRN. -1a. Level of Consciousness Not alert; -1b. LOC Questions Answers neither question correctly. -1c. LOC Commands Performs neither task correctly. -2. Best Gaze Partial gaze palsy; -5a. Left Arm UN=Amputation or joint fusion , explain: -'UN' explanation pt unable to follow commands -5b. Right Arm UN=Amputation or joint fusion , explain: -'UN' explanation pt unable to follow commands -6a. Left Leg UN= Amputation or joint fusion , explain: -'UN' explanation pt unable to follow commands -6b. Right Leg UN= Amputation or joint fusion , explain: -'UN' explanation pt unable to follow commands -7. Limb Ataxia UN=Amputation or joint fusion , explain -'UN' explanation pt unable to follow commands -9. Best Language Mute, global aphasia; -10. Dysarthria UN=Intubated or other physical barrier, explain: -'UN' explanation pt not responding verbally -Total 10 Query Text:A score of 0 is normal or asymptomatic. Total possible score is 42 . ED: Notify Physician for NIHSS increase by > / = 3 points. Inpatient: RN or Physician to activate a stroke alert for NIHSS increase of > / = 3 points. Coma Scale [Assess] -Eye Opening To Voice -Motor Withdraws to Pain -Verbal None [Total] -Coma Scale Total 8 EEG Results Procedure Details EEG Procedure Details: OLY REYES is a 78 year old F with a past medical history of , who presents for evaluation of Electroencephalogram on DATE at TIME Objective Data Objective Data Vital Signs: Vital Signs Temp Pulse Resp BP Pulse Ox O2 Del Method 100.0 F H 91 18 144/63 H 96 Room Air 01/09/24 07:00 01/09/24 07:00 01/09/24 07:00 01/09/24 07:00 01/09/24 07:00 01/09/24 07:00 Oxygen Delivery Method Room Air Weight: 63.5 kg Body Mass Index (BMI) 22.5 Intake & Output: Intake and Output for Last 24 Hours 01/07/24 01/08/24 01/09/24 23:59 23:59 23:59 Intake Total 3091.9 / 3091.9 200 / 200 Output Total 500 / 800 650 / 650 Balance 2591.9 / 2291.9 -450 / -450 Lab / Micro Data 01/09/24 05:58 01/09/24 05:58 Labs: Laboratory Results - last 24 hr 01/08/24 06:48: WBC 12.3 H, RBC 4.58, Hgb 12.7, Hct 40.1, MCV 87.6, MCH 27.7, MCHC 31.7 L, RDW Std Deviation 39.3, RDW Coeff of Carmen 12.2, Plt Count 331, MPV 11.1, Immature Gran % (Auto) 0.200, Neut % (Auto) 88.4 H, Lymph % (Auto) 6.7 L, [place] % (Auto) 3.7, Eos % (Auto) 0.4, Baso % (Auto) 0.6, Absolute Neuts (auto) 10.9 H, Absolute Lymphs (auto) 0.82 L, Nucleated RBC % 0, PT 15.1 H, INR 1.2, APTT 34.3, Hemoglobin A1c 10.6 H, Total Bilirubin 0.60, Direct Bilirubin 0.21, AST 17, ALT 19, Alkaline Phosphatase 176 H, Total Protein 8.4 H, Albumin 4.2, Globulin 4.2, TSH 0.39, Free T4 1.31 01/08/24 07:42: Urine Opiates Screen NEGATIVE, Urine Methadone Screen NEGATIVE, Ur Barbiturates Screen NEGATIVE, Ur Phencyclidine Scrn NEGATIVE, Ur Amphetamines Screen NEGATIVE, MDMA (Ecstasy) Screen NEGATIVE, U Benzodiazepines Scrn NEGATIVE, Urine Cocaine Screen NEGATIVE, U Cannabinoids Screen NEGATIVE, Ur Drug Screen Comment 01/08/24 09:53: POC Glucose > 500 H* 01/08/24 16:00: POC Glucose 340 H 01/08/24 16:26: Lactic Acid 1.7 01/08/24 21:51: POC Glucose 240 H 01/09/24 05:58: WBC 13.3 H, RBC 3.96 L, Hgb 10.9 L, Hct 34.5 L, MCV 87.1, MCH 27.5, MCHC 31.6 L, RDW Std Deviation 39.9, RDW Coeff of Carmen 12.5, Plt Count 286, MPV 11.1, Immature Gran % (Auto) 0.500, Neut % (Auto) 75.6 H, Lymph % (Auto) 13.5 L, [place] % (Auto) 10.0, Eos % (Auto) 0.0, Baso % (Auto) 0.4, Absolute Neuts (auto) 10.1 H, Absolute Lymphs (auto) 1.80, Nucleated RBC % 0, Sodium 139, Potassium 3.4 L, Chloride 104, Carbon Dioxide 28.0, Anion Gap 7, BUN 26 H, Creatinine 1.26 H, Estim Creat Clear Calc 35.56, Est GFR (MDRD) Af Amer 53 L, Est GFR (MDRD) Non-Af 44 L, BUN/Creatinine Ratio 20.6 H, Glucose 218 H, Calcium 10.2 H, Triglycerides 64, Cholesterol 135, LDL Cholesterol 54, VLDL Cholesterol 13, HDL Cholesterol 68 Micro: Microbiology 01/08/24 07:53 Mucosa - Nasopharyngeal SARS-CoV-2, Influenza & RSV (PCR) - Final Radiography Diagnostic Testing: Radiology Impression Brain MRI 01/08/24 10:12 IMPRESSION: Mild atrophy and minor periventricular white matter ischemic changes Diffuse restricted diffusion in the cerebral cortex bilaterally most pronounced in the parietal occipital regions of indeterminate etiology possibly due to inflammatory disease or less likely anoxic event. There is no enhancement following contrast administration. Clinical correlation is recommended Electronically Signed: Willie Almeida MD at 16:17 EDT Reading Location ID and State: [facility] / [place] Tel , Service support , ADDENDUM: 01/08/24 1628 IMPRESSION: undefined Echocardiogram 01/08/24 10:12 Interpretation Summary The study was technically difficult. Mild concentric left ventricular hypertrophy. The left ventricular ejection fraction is 65 %. The left atrium is moderately enlarged. Severe mitral annular calcification. Mild mitral valve stenosis. Aortic sclerosis, no stenosis. Mildly dilated aortic root. Bubble contrast study is negative for PFO/ASD. Ordering Physician: Bc Zeng Referring Physician: Radha Orlando Performed By: Ivonne Toussaint, RDCS, RVT Physical Exam Narrative Today, she opens her eyes to voice and tries to speak. She remain confused but able to verbalize some words. She repeats name, birthday, but can not answer questions, she seems frustrated when can't bring her words out. Followed some simple commands inconsistently and with coaching. Able to raise both arms off of the bed.
[2024-01-09] MEDS: DEXTROSE 5% IV ×2 (10:31→21:21)
[2024-01-09] MEDS: WATER IV ×2 (10:31→21:21)
[2024-01-09] MEDS: ACYCLOVIR IV ×2 (10:31→21:21)
[2024-01-09 11:37] LABS: Bedside Glucose 199 mg/dL (74-106)
--- NOTE | 2024-01-09 11:48 | PN.HOSP_ITS ---
Reason for Visit Reason for Visit: Diagnoses Type 2 diabetes mellitus with hyperglycemia (01/08/24) Hypo-osmolality and hyponatremia (01/08/24) Meningitis, unspecified (01/08/24) Metabolic encephalopathy (01/08/24) Subjective Subjective No acute events overnight. Saw patient at bedside this morning, present. Patient appeared to be showing signs of improvement this morning. She opened her eyes and sat up for me on verbal command and attempted to answer my questions but had difficulty putting words together. She did have intermittent twitching noted in her shoulders and arms but this was improved from yesterday. She did not appear acutely anxious this morning. She was able to look at her and smile when I asked who he was. No other new concerns morning. Discussed with teleneurology over the phone later this morning. I notably talked with radiology this morning and they will not be able to do an LP for the patient while here due to her severe scoliosis. Neurologist had seen the patient by screen before talking with me and agreed the patient looked to be improving with treatment for encephalitis/meningitis. He requested that we repeat an MRI brain with contrast this afternoon for further evaluation. Noted that there was no need for transfer to [facility] for now for LP as patient is improving on treatment, could discuss further tomorrow if patient does not continue to improve. Objective Data Objective Data Vital Signs: Vital Signs Temp Pulse Resp BP Pulse Ox O2 Del Method 99.3 F H 91 18 144/63 H 96 Room Air 01/09/24 10:35 01/09/24 07:00 01/09/24 07:00 01/09/24 07:00 01/09/24 07:00 01/09/24 07:00 Oxygen Delivery Method Room Air Weight: 63.5 kg Body Mass Index (BMI) 22.5 Intake & Output: Intake and Output for Last 24 Hours 01/07/24 01/08/24 01/09/24 23:59 23:59 23:59 Intake Total 3091.9 / 3091.9 461.9 / 461.9 Output Total 500 / 800 650 / 650 Balance 2591.9 / 2291.9 -188.1 / -188.1 Lab / Micro Data 01/09/24 05:58 01/09/24 05:58 Labs: Laboratory Results - last 24 hr 01/08/24 16:00: POC Glucose 340 H 01/08/24 16:26: Lactic Acid 1.7 01/08/24 21:51: POC Glucose 240 H 01/09/24 05:58: WBC 13.3 H, RBC 3.96 L, Hgb 10.9 L, Hct 34.5 L, MCV 87.1, MCH 27.5, MCHC 31.6 L, RDW Std Deviation 39.9, RDW Coeff of Carmen 12.5, Plt Count 286, MPV 11.1, Immature Gran % (Auto) 0.500, Neut % (Auto) 75.6 H, Lymph % (Auto) 13.5 L, [place] % (Auto) 10.0, Eos % (Auto) 0.0, Baso % (Auto) 0.4, Absolute Neuts (auto) 10.1 H, Absolute Lymphs (auto) 1.80, Nucleated RBC % 0, Sodium 139, P otassium 3.4 L, Chloride 104, Carbon Dioxide 28.0, Anion Gap 7, BUN 26 H, C reatinine 1.26 H, Estim Creat Clear Calc 35.56, Est GFR (MDRD) Af Amer 53 L, Est GFR (MDRD) Non-Af 44 L, BUN/Creatinine Ratio 20.6 H, Glucose 218 H, Calcium 10.2 H, Triglycerides 64, Cholesterol 135, LDL Cholesterol 54, VLDL Cholesterol 13, HDL Cholesterol 68 01/09/24 11:12: POC Glucose 199 H Micro: Microbiology 01/08/24 07:53 Mucosa - Nasopharyngeal SARS-CoV-2, Influenza & RSV (PCR) - Final Radiography Diagnostic Testing: Radiology Impression Brain MRI 01/08/24 10:12 IMPRESSION: Mild atrophy and minor periventricular white matter ischemic changes Diffuse restricted diffusion in the cerebral cortex bilaterally most pronounced in the parietal occipital regions of indeterminate etiology possibly due to inflammatory disease or less likely anoxic event. There is no enhancement following contrast administration. Clinical correlation is recommended Electronically Signed: Willie Almeida MD at 16:17 EDT , ADDENDUM: 01/08/24 [id number] IMPRESSION: undefined Echocardiogram 01/08/24 10:12 Interpretation Summary The study was technically difficult. Mild concentric left ventricular hypertrophy. The left ventricular ejection fraction is 65 %. The left atrium is moderately enlarged. Severe mitral annular calcification. Mild mitral valve stenosis. Aortic sclerosis, no stenosis. Mildly dilated aortic root. Bubble contrast study is negative for PFO/ASD. Ordering Physician: Bc Zeng Referring Physician: Radha Orlando Performed By: Ivonne Toussaint, SHAHEEN, RVT Physical Exam Const alert and no apparent distress Constitutional Narrative: Elderly female, open eyes and set up to verbal command today, much improved from yesterday. Attempting to answer questions but not able to put words together yet. No agitation noted. Not in any acute distress. HEENT normocephalic and head/scalp atraumatic Eyes PERRL, EOMs intact bilaterally and conjunctivae normal Neck supple Chest inspection of chest normal Resp normal respiratory effort, normal air movement, no use of accessory muscles and clear to auscultation bilaterally Cardio regular rate, regular rhythm, no murmurs and peripheral pulses 2+ throughout GI normal to inspection, nondistended, normoactive bowel sounds, soft to palpation, non-tender and non-distended Back/Spine normal to inspection Extremity normal to inspection Skin no rashes or lesions noted Neuro no focal motor deficits and no sensory deficits noted Assessment & Plan Assessment/Plan (1) Acute metabolic encephalopathy: (2) Meningitis: (3) Hyperglycemia due to type 2 diabetes mellitus: (4) Hyponatremia: PLAN: Plan Patient is a 78-year-old female who presented to [facility] ED on 01/08/2024 with altered mental status and headache. 1. 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 Admit under inpatient status to PCU. Teleneurology followed. MRI brain with contrast on admit with findings concerning for encephalitis versus meningitis. LP unfortunately unable to be performed on day of admission due to severe scoliosis. Given altered mentation, febrile on admission and reported history of headaches for a few days prior to hospitalization, highest concern is for HSV encephalitis versus bacterial meningitis. Per neurology recommendation, patient started on IV vancomycin, cefepime, ampicillin and IV acyclovir. Showing good signs of improvement with treatment on 01/08. Per neurology recs, will repeat MRI brain with contrast this evening for further evaluation. Notably, radiology here will not be able to perform an LP so if patient shows signs of worsening or does not continue to improve, will need to consider transfer to [facility] or another tertiary center for lumbar puncture. Continue to avoid deliriogenic medications as able. Remain n.p.o. for now. 2. Poorly controlled type 2 diabetes mellitus with severe hyperglycemia ? A1c 10.6% on admit. Home regimen of glipizide 2.5 mg daily, metformin 1000 mg twice daily. Per , patient has never been on insulin therapy. No prior A1c's available in our system for comparison. Blood glucose 566 on admit. Bicarb normal, no anion gap, no concern for DKA. Had mild concern for an HHS type picture but with patient proving on treatments as noted above, suspect sugars were elevated due to active infection. Continue to treat with Lantus 15 units at night, Humalog 5 units with meals plus sliding scale insulin, adjust as needed. Patient currently n.p.o. as noted above. 3. History of hypothyroidism with thyroid nodule ? On home methimazole. TSH 0.39, free T4 1.31 on admit (both in normal range). CTA head/neck did show 2.8 cm heterogenously enhancing thyroid nodule. Thyroid ultrasound ordered for further workup, study completed but read pending. Per , patient has had thyroid nodule followed for the past few years back in [place]. Likely no further inpatient needs once ultrasound has been read, will need outpatient follow-up. 4. Hyponatremia, resolved ? Sodium 130 on admit. Chloride 93. Seems most likely secondary to dehydration versus infection. Given supplemental IV fluids on admission. Repeat sodium 139 on hospital day 2. Continue to monitor daily BMP. 5. Elevated creatinine ? Creatinine 1.43 on admit, baseline unknown. Suspect mild bump from baseline due to some degree of dehydration. Given IV fluids on admit as noted above. Creatinine improved to 1.26 on hospital day 2 and patient with adequate urine output. Notably, UA was noninfectious appearing. Continue to monitor BMP and urine output daily. Chronic medical conditions: ? Hypertension: Continue home Coreg when able, holding home lisinopril and diltiazem for now. ? Depression/anxiety: Continue home duloxetine when able. ? GERD: Continue home PPI when able. ? Hyperlipidemia: Continue home statin when able. DVT prophylaxis: Heparin subcu CODE STATUS: Full code, unverified Expected disposition: TBD Total clinical time spent by myself addressing the patient's medical issues, reviewing all the data, and collaborating with patient's care team: 35 minutes. Charges/Coding Visit Charges Inpatient E&M: 95720 Subs Hosp L2
--- NOTE | 2024-01-09 14:08 | CASEMGMT ---
Social Work- Pt presents with altered mental state and is unable to appropriately complete PHQ9 questionaire. MARILU Kincaid
[2024-01-09 16:06] LABS: Bedside Glucose 182 mg/dL (74-106)
[2024-01-09] MEDS: Vancomycin HCl 750 MG in 0.9% Normal Saline (250mL Bag) 250 ML 250 MG IV (19:00)
[2024-01-09 22:45] LABS: Bedside Glucose 171 mg/dL (74-106)
[2024-01-10 04:05] VITALS: BP 137/90; PULSE 89; RESP 14; TEMP 36.3; O2SAT 98
[2024-01-10] MEDS: Ampicillin 2 GM in 0.9% Normal Saline (100mL MB+) 100 ML IV ×3 (05:29→23:48)
[2024-01-10 05:43] LABS: Hematocrit 35.7 % (37-47); Hemoglobin 11.2 g/dL (12.0-15.0); Mean Corp Hgb Conc 31.4 g/dL (32-36); Mean Corpuscular Hgb 27.7 pg (27.0-32.0); Mean Corpuscular Volume 88.1 fL (81-99); Mean Platelet Vol. 10.7 fl (6.2-12.0); Platelet Count 246 K/mm3 (150-450); RBC Distribution Width CV 12.6 % (11.6-14.6); RBC Distribution Width SD 40.6 fl (35.1-43.9); Red Blood Count 4.05 M/mm3 (4.2-5.4); White Blood Count 8.6 K/mm3 (4.4-11.0)
[2024-01-10 06:19] LABS: Anion Gap 9 (5-15); BUN 29 mg/dL (7-18); BUN/Creat Ratio 24.2 RATIO (10-20); Calcium,Total 9.7 mg/dL (8.5-10.1); Chloride 107 mmol/L (98-107); EST Glomerular Filtration Rate 46 mL/min (>60); Est Glom Filt Rate - Afr Amer 56 mL/min (>60); Estimated Creatinine Clearance 37.34 ml/min; Glucose 225 mg/dL (74-106); Potassium 3.3 mmol/L (3.5-5.1); Sodium Level 139 mmol/L (136-145)
[2024-01-10 07:00] VITALS: BP 187/83; PULSE 95; RESP 18; TEMP 36.5; O2SAT 98
[2024-01-10] MEDS: Insulin Lispro 100 UNIT/ML INSULN.PEN SC ×3 (08:18→17:07)
--- NOTE | 2024-01-10 09:05 | PN.HOSP_ITS ---
Reason for Visit Reason for Visit: Diagnoses Type 2 diabetes mellitus with hyperglycemia (01/08/24) Hypo-osmolality and hyponatremia (01/08/24) Meningitis, unspecified (01/08/24) Metabolic encephalopathy (01/08/24) Objective Data Objective Data Vital Signs: Vital Signs Temp Pulse Resp BP Pulse Ox O2 Del Method 97.7 F L 95 18 187/83 H 98 Room Air 01/10/24 07:00 01/10/24 07:00 01/10/24 07:00 01/10/24 07:00 01/10/24 07:00 01/10/24 07:08 Oxygen Delivery Method Room Air Weight: 139 lb 15.896 oz Body Mass Index (BMI) 22.5 Intake & Output: Intake and Output for Last 24 Hours 01/08/24 01/09/24 01/10/24 23:59 23:59 23:59 Intake Total 3091.9 / 3091.9 826.9 / 826.9 561.9 / 561.9 Output Total 500 / 800 1200 / 1375 525 / 525 Balance 2591.9 / 2291.9 -373.1 / -548.1 36.9 / 36.9 Lab / Micro Data 01/10/24 05:24 01/10/24 05:24 Labs: Laboratory Results - last 24 hr 01/09/24 11:12: POC Glucose 199 H 01/09/24 15:44: POC Glucose 182 H 01/09/24 21:38: POC Glucose 171 H 01/10/24 05:24: WBC 8.6, RBC 4.05 L, Hgb 11.2 L, Hct 35.7 L, MCV 88.1, MCH 27.7, MCHC 31.4 L, RDW Std Deviation 40.6, RDW Coeff of Carmen 12.6, Plt Count 246, MPV 10.7, Sodium 139, Potassium 3.3 L, Chloride 107, Carbon Dioxide 23.0, Anion Gap 9, BUN 29 H, Creatinine 1.20 H, Estim Creat Clear Calc 37.34, Est GFR (MDRD) Af Amer 56 L, Est GFR (MDRD) Non-Af 46 L, BUN/Creatinine Ratio 24.2 H, Glucose 225 H, Calcium 9.7 Micro: Microbiology 01/08/24 07:53 Mucosa - Nasopharyngeal SARS-CoV-2, Influenza & RSV (PCR) - Final Radiography Diagnostic Testing: Radiology Impression Thyroid Ultrasound 01/08/24 11:09 IMPRESSION: Multinodular goiter with up to 2.3 cm left thyroid TI-RAD 3 lesion and 1.2 cm right thryoid TI-RAD 4 lesion for which 1 year follow-up ultrasound is recommended by ACR TI RADS criteria Electronically Signed: Danielito Moore MD at 3:00 EDT , Physical Exam Narrative Seen and examined. Blood pressure is elevated. Patient confused, noncommunicable and disoriented Physical exam General: Confused and disoriented. Eyes open. HEENT: No neck rigidity. Atraumatic, PERRLA, EOMI, Normocephalic Oral: No Gingival or Mucosal Lesions/ Ulcerations Neck: Supple, No JVD, Negative Carotid Bruits Chest wall/Lungs: Air entry diminished in bilateral lung bases. No crepitation/rhonchi Cardiovascular: Regular rate, Regular Rhythm, Normal S1, Normal S2, No M/G/R Abdomen: Bowel Sounds Present, Soft, Non Tender, Non-Distended : No dysuria. No renal angle tenderness. No suprapubic tenderness. Extremities: No edema, Capillary Refill Less than 3 Seconds Skin: No rashes, No breakdown Musculoskeletal: No Tenderness to Palpation of Joints or Extremities Neurological: Nonfocal exam. Sound with incomprehensible words. DTR 2+/4. No acute focal neurological deficit. Psych/Mental Status: Flat affect. Assessment & Plan Assessment/Plan (1) Acute metabolic encephalopathy: (2) Meningitis: (3) Hyperglycemia due to type 2 diabetes mellitus: (4) Hyponatremia: PLAN: Plan Patient is a 78-year-old female who presented to [facility] ED on 01/08/2024 with altered mental status and headache. 1. 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 Admit under inpatient status to PCU. Teleneurology followed. MRI brain with contrast on admit with findings concerning for encephalitis versus meningitis. LP unfortunately unable to be performed on day of admission due to severe scoliosis. Given altered mentation, febrile on admission and reported history of headaches for a few days prior to hospitalization, highest concern is for HSV encephalitis versus bacterial meningitis. Per neurology recommendation, patient started on IV vancomycin, cefepime, ampicillin and IV acyclovir. Showing good signs of improvement with treatment on 01/08. Per neurology recs, will repeat MRI brain with contrast this evening for further evaluation. Notably, radiology here will not be able to perform an LP so if patient shows signs of worsening or does not continue to improve, will need to consider transfer to [facility] or another tertiary center for lumbar puncture. Continue to avoid deliriogenic medications as able. Remain n.p.o. for now. 01/09: Patient very confused disoriented. Incomprehensible sound. GCS 10. Discussed with the neurologist. He states to transfer the patient to [facility] for further evaluation and management after the MRI is done. MRI could not be done as she will need propofol to sedate. 2. Poorly controlled type 2 diabetes mellitus with severe hyperglycemia ? A1c 10.6% on admit. Home regimen of glipizide 2.5 mg daily, metformin 1000 mg twice daily. Per , patient has never been on insulin therapy. No prior A1c's available in our system for comparison. Blood glucose 566 on admit. Bicarb normal, no anion gap, no concern for DKA. Had mild concern for an HHS type picture but with patient proving on treatments as noted above, suspect sugars were elevated due to active infection. Continue to treat with Lantus 15 units at night, Humalog 5 units with meals plus sliding scale insulin, adjust as needed. Patient currently n.p.o. as noted above. 01/09: Glucose level is very high. Humalog and Lantus dose increased. 3. History of hypothyroidism with thyroid nodule ? On home methimazole. TSH 0.39, free T4 1.31 on admit (both in normal range). CTA head/neck did show 2.8 cm heterogenously enhancing thyroid nodule. Thyroid ultrasound ordered for further workup, study completed but read pending. Per , patient has had thyroid nodule followed for the past few years back in [place]. Likely no further inpatient needs once ultrasound has been read, will need outpatient follow-up. 4. Hyponatremia, resolved ? Sodium 130 on admit. Chloride 93. Seems most likely secondary to dehydration versus infection. Given supplemental IV fluids on admission. Repeat sodium 139 on hospital day 2. Continue to monitor daily BMP. 5. Elevated creatinine ? Creatinine 1.43 on admit, baseline unknown. Suspect mild bump from baseline due to some degree of dehydration. Given IV fluids on admit as noted above. Creatinine improved to 1.26 on hospital day 2 and patient with adequate urine output. Notably, UA was noninfectious appearing. Continue to monitor BMP and urine output daily. 01/09: Creatinine improving. 1.2. Chronic medical conditions: ? Hypertension: Continue home Coreg when able, holding home lisinopril and diltiazem for now. ? Depression/anxiety: Continue home duloxetine when able. ? GERD: Continue home PPI when able. ? Hyperlipidemia: Continue home statin when able. DVT prophylaxis: Heparin subcu CODE STATUS: Full code, unverified Expected disposition: Transfer to [facility] Microbiology Past 72 Hours 01/08/24 07:53 Mucosa - Nasopharyngeal SARS-CoV-2, Influenza & RSV (PCR) - Final Laboratory Results 01/08/24 10:26: Enterovirus RNA (PCR) Pending 01/09/24 15:44: POC Glucose 182 H 01/09/24 21:38: POC Glucose 171 H 01/10/24 05:24: WBC 8.6, RBC 4.05 L, Hgb 11.2 L, Hct 35.7 L, MCV 88.1, MCH 27.7, MCHC 31.4 L, RDW Std Deviation 40.6, RDW Coeff of Carmen 12.6, Plt Count 246, MPV 10.7, Sodium 139, Potassium 3.3 L, Chloride 107, Carbon Dioxide 23.0, Anion Gap 9, BUN 29 H, Creatinine 1.20 H, Estim Creat Clear Calc 37.34, Est GFR (MDRD) Af Amer 56 L, Est GFR (MDRD) Non-Af 46 L, BUN/Creatinine Ratio 24.2 H, Glucose 225 H, Calcium 9.7 01/10/24 10:46: EBV Capsid Ag IgM Ab Pending, Herpes Simplex Typing Pending, MICHELINE Virus DNA (PCR) Pending 01/10/24 11:23: POC Glucose 266 H Charges/Coding Visit Charges Inpatient E&M: 37421 Subs Hosp L2
--- NOTE | 2024-01-10 09:47 | PN.NEURO_ITS ---
Assessment and Plan: Neuro Assessment/Plan 78 yo woman with HTN, HLD who is presenting with confusion that developed over the night of 01/07. She was febrile on presentation and reportedly have had worsening headache for a couple days prior to presentation. MRI brain inconclusive for abnormal findings, will need to repeat. Spot EEG with moderate slowing, and no epileptic activity. Presentation is concerning for [employer] WORKER infection/HSV. Attempted LP with no success due to scoliosis. Her blood glucose was 500 upon presentaiton and hyperglycemia/HHS was a consideration upon presentation, but would expect fever with dramatically higher numbers of sugar, and would expect further improvement by now with correction of sugars. She is more awake today, but continues to be confused and aphasic unable to carry a conversation Recommendations: -? Continue [employer] coverage with Acyclovir/Vanc/Cef/Amp - Repeat MRI brain tomorrow Transfer to [facility] for LP Under IR. Discussed with primary team. I personally attended this patient and spent a total time of 30 minutes evaluating this patient including clinical assessment, review of chart, medical history imaging, and determining appropriate treatment and workup. Subject: Neurology Subjective Afebrile over night. She is more awake this morning, but continues to be confused, aphasic, unable to speak or have a conversation NIHSS NIHSS Nursing Documentation NIHSS Nursing Documentation: NIHSS: Ischemic Stroke/TIA Start: 01/08/24 11:07 Text: For ICU Patients: NIH sroke scale at Status: Complete presentation and every 2 hours or with change in RN caregiver Freq: [id number] Protocol: Activity Type Activity Date Activity User E-sign Co-sign Detail Recorded Client Recorded Date Recorded By Document 01/08/24 18:00 NB desktop 01/08/24 18:15 NB 01/08/24 18:00 NIH Stroke Scale [NIHSS] A score of 0 is normal or asymptomatic . Total possible score is 42. Inpatient: RN or Physician to activate a stroke alert for onset of new stroke symptoms or with NIHSS increase >/= 3 points. Following change in neurological status, NIHSS will be performed per physician order or more frequently PRN. -1a. Level of Consciousness Not alert; -1b. LOC Questions Answers neither question correctly. -1c. LOC Commands Performs neither task correctly. -2. Best Gaze Partial gaze palsy; -5a. Left Arm UN=Amputation or joint fusion , explain: -'UN' explanation pt unable to follow commands -5b. Right Arm UN=Amputation or joint fusion , explain: -'UN' explanation pt unable to follow commands -6a. Left Leg UN= Amputation or joint fusion , explain: -'UN' explanation pt unable to follow commands -6b. Right Leg UN= Amputation or joint fusion , explain: -'UN' explanation pt unable to follow commands -7. Limb Ataxia UN=Amputation or joint fusion , explain -'UN' explanation pt unable to follow commands -9. Best Language Mute, global aphasia; -10. Dysarthria UN=Intubated or other physical barrier, explain: -'UN' explanation pt not responding verbally -Total 10 Query Text:A score of 0 is normal or asymptomatic. Total possible score is 42 . ED: Notify Physician for NIHSS increase by > / = 3 points. Inpatient: RN or Physician to activate a stroke alert for NIHSS increase of > / = 3 points. Coma Scale [Assess] -Eye Opening To Voice -Motor Withdraws to Pain -Verbal None [Total] -Coma Scale Total 8 NIHSS: Ischemic Stroke/TIA Start: 01/08/24 11:07 Text: For PCU Patients: NIH and Neuro Check every 4 Status: Complete hours, PRN and with change in RN caregiver. Freq: [id number] Protocol: Activity Type Activity Date Activity User E-sign Co-sign Detail Recorded Client Recorded Date Recorded By Document 01/08/24 18:00 NB desktop 01/08/24 18:15 NB 01/08/24 18:00 NIH Stroke Scale [NIHSS] A score of 0 is normal or asymptomatic . Total possible score is 42. Inpatient: RN or Physician to activate a stroke alert for onset of new stroke symptoms or with NIHSS increase >/= 3 points. Following change in neurological status, NIHSS will be performed per physician order or more frequently PRN. -1a. Level of Consciousness Not alert; -1b. LOC Questions Answers neither question correctly. -1c. LOC Commands Performs neither task correctly. -2. Best Gaze Partial gaze palsy; -5a. Left Arm UN=Amputation or joint fusion , explain: -'UN' explanation pt unable to follow commands -5b. Right Arm UN=Amputation or joint fusion , explain: -'UN' explanation pt unable to follow commands -6a. Left Leg UN= Amputation or joint fusion , explain: -'UN' explanation pt unable to follow commands -6b. Right Leg UN= Amputation or joint fusion , explain: -'UN' explanation pt unable to follow commands -7. Limb Ataxia UN=Amputation or joint fusion , explain -'UN' explanation pt unable to follow commands -9. Best Language Mute, global aphasia; -10. Dysarthria UN=Intubated or other physical barrier, explain: -'UN' explanation pt not responding verbally -Total 10 Query Text:A score of 0 is normal or asymptomatic. Total possible score is 42 . ED: Notify Physician for NIHSS increase by > / = 3 points. Inpatient: RN or Physician to activate a stroke alert for NIHSS increase of > / = 3 points. Coma Scale [Assess] -Eye Opening To Voice -Motor Withdraws to Pain -Verbal None [Total] -Coma Scale Total 8 EEG Results Procedure Details EEG Procedure Details: Procedure Orders GENERAL PROCEDURE [[id number]] ordered by Liyah Tolentino MD at 01/09/24 9202 Summary: EEG Report- [place] Inpatient routine EEG report performed at [facility] Study start time: 0958 AM on 01/09/24 End Time: 1021 AM on 01/09/24 History: Patient presenting with altered mental status and fever Indication: Rule out seizures Technical Description: This is a 18-channel digital EEG recording with time- locked video and single-channel electrocardiogram. Electrodes are placed according to the 10 to 20 International System. The patient was monitored continuously by EEG technicians and EEG recording was reviewed intermittently with annotations to the EEG record. Portions of this record are reviewed using bandpass filters of 1 to 70 Hz and sensitivity of 7mV/mm. EEG DESCRIPTION Background: This recording was obtained during awake state and sleep-like state. There is generalized continuous slowing of mixed delta/theta frequencies, at times with triphasic morphology. In the maximally alert state, a posterior dominant rhythm was a symmetric, reactive, well-modulated 6 Hz with a normal frequency-amplitude gradient. No clear sleep architecture were seen. Activation Procedures: Photic stimulation was performed. No abnormal or epileptic activity was triggered by this procedure. Sporadic Epileptiform Discharges: none Focal slow activity: none Rhythmic or Periodic activity: none Seizures: none Patient Events: none EEG DIAGNOSIS: Encephalopathy CLINICAL INTERPRETATION This is an abnormal EEG consistent with moderate diffuse encephalopathy. No epileptiform discharges or lateralizing signs were seen. Jose G Tolentino MD Objective Data Objective Data Vital Signs: Vital Signs Temp Pulse Resp BP Pulse Ox O2 Del Method 97.7 F L 95 18 187/83 H 98 Room Air 01/10/24 07:00 01/10/24 07:00 01/10/24 07:00 01/10/24 07:00 01/10/24 07:00 01/10/24 07:08 Oxygen Delivery Method Room Air Weight: 63.5 kg Body Mass Index (BMI) 22.5 Intake & Output: Intake and Output for Last 24 Hours 01/08/24 01/09/24 01/10/24 23:59 23:59 23:59 Intake Total 3091.9 / 3091.9 826.9 / 826.9 561.9 / 561.9 Output Total 500 / 800 1200 / 1375 525 / 525 Balance 2591.9 / 2291.9 -373.1 / -548.1 36.9 / 36.9 Lab / Micro Data 01/10/24 05:24 01/10/24 05:24 Labs: Laboratory Results - last 24 hr 01/09/24 11:12: POC Glucose 199 H 01/09/24 15:44: POC Glucose 182 H 01/09/24 21:38: POC Glucose 171 H 01/10/24 05:24: WBC 8.6, RBC 4.05 L, Hgb 11.2 L, Hct 35.7 L, MCV 88.1, MCH 27.7, MCHC 31.4 L, RDW Std Deviation 40.6, RDW Coeff of Carmen 12.6, Plt Count 246, MPV 10.7, Sodium 139, Potassium 3.3 L, Chloride 107, Carbon Dioxide 23.0, Anion Gap 9, BUN 29 H, Creatinine 1.20 H, Estim Creat Clear Calc 37.34, Est GFR (MDRD) Af Amer 56 L, Est GFR (MDRD) Non-Af 46 L, BUN/Creatinine Ratio 24.2 H, Glucose 225 H, Calcium 9.7 Micro: Microbiology 01/08/24 07:53 Mucosa - Nasopharyngeal SARS-CoV-2, Influenza & RSV (PCR) - Final Radiography Diagnostic Testing: Radiology Impression Thyroid Ultrasound 01/08/24 11:09 IMPRESSION: Multinodular goiter with up to 2.3 cm left thyroid TI-RAD 3 lesion and 1.2 cm right thryoid TI-RAD 4 lesion for which 1 year follow-up ultrasound is recommended by ACR TI RADS criteria Electronically Signed: Danielito Moore MD at 3:00 EDT , Physical Exam Narrative lyin in bed, alert, eyes open, looks comfortable, not following appropriately, aphasic
[2024-01-10] MEDS: WATER IV ×2 (10:13→23:47)
[2024-01-10] MEDS: ACYCLOVIR IV ×2 (10:13→23:47)
[2024-01-10] MEDS: Cefepime HCl 2 GM in 0.9% Normal Saline (100mL MB+) 100 ML IV ×2 (10:13→23:23)
[2024-01-10] MEDS: DEXTROSE 5% IV ×2 (10:13→23:47)
[2024-01-10 11:00] VITALS: BMI 22.5
[2024-01-10] MEDS: Potassium Chloride 10mEq/100mL 10 MEQ/100 ML IV.SOLN. 100 MEQ IV BOLUS ×2 (11:27→13:12)
[2024-01-10 11:49] LABS: Bedside Glucose 266 mg/dL (74-106)
[2024-01-10] MEDS: Acetaminophen 650 MG Suppository RC (13:11)
[2024-01-10 14:02] VITALS: BP 178/99; PULSE 101; RESP 18; TEMP 36.8; O2SAT 97
[2024-01-10] MEDS: Haloperidol Lactate 5 MG/ML Vial 2 MG IV (14:13)
--- NOTE | 2024-01-10 14:32 | CHAPLAIN ---
Type of Pastoral Visit _x__ Initial Visit ___ Follow-up Visit ___ On-call Visit ___ General Patient Visit ___ Spiritual Assessment ___ Family Conference ___ Bereavement ___ Rapid Response ___ Code Blue ___ Other (describe below) Pastoral Care Referral From ___ Patient ___ Family ___ Nurse ___ Physician ___ Balance Wheel Screw Hole Tapper ___ Geriatric Aide _x__ Other (describe below) Sacrament/Intervention ___ Active listening ___ Anointing ___ Presybeterian ___ Bereavement ___ Communion ___ Sara exploration ___ ___ Life review _x__ Prayer ___ Reconciliation ___ Sacrament of Sick _x__ Supportive presence ___ Wedding ___ Other (describe below) Pastoral Comments patient is limited in ability to carry on a conversation; pt does track with eyes of this relations coordinator and responds with one words to questions; pt is able to say yes to visit, to an offer of prayer, and to then say thank you, thank you,; pt is given assurance that she is in a good place with good people and that she can rest and relax
--- NOTE | 2024-01-10 15:02 | CON.PCM.ID_ITS ---
Assessment & Plan Assessment/Plan (1) Acute metabolic encephalopathy: PLAN: fever to 101.6 on admit. No neck stiffness on exam, no recent headache per . Low suspicion overall for acute bacterial meningitis. Transfer planned so LP can be obtained. Bcx neg so far. Fever has resolved. Covid and resp pcr panel neg. Brain MRI showed no enhancement. On empiric vanc/amp/cefepime/acyclovir. Will follow, thank you HPI Consult Data Date of Consult: 01/10/24 HPI Narrative Reason for Consultation: encephalopathy HPI Narrative: OLY REYES, is a 78 F with h/o DM, presented 01/07 to ED with two days progressive altered mental status, difficulty ambulating, and incomprehensible speech. No sick contacts, no recent travel, no recent bug bites/ticks, no new medications, no recent surgical procedures. Moved to [place] from [place] 11/23/23 with her . No h/o HSV or cold sores. Only animal contact is their dog, a Weimaraner. reports she had some headaches around the time of the move last month, but not since then. Pt did not want to go to hospital, called 911, she was admitted, found to have fever, started on vanc/amp/cefepime/acyclovir, seen by neuro. MRI done. LP unobtainable due to scoliosis. Today, mental status slightly better than on admit per . ROS unobtainable due to mental status PFSH Medical History unable to obtain Home Medications ?Medication ?Instructions ?Recorded ?Last Taken ?Type atorvastatin 10 mg tablet 10 mg PO DAILY CHOLESTEROL 01/08/24 Unknown History carvedilol 25 mg tablet 25 mg PO BID HEART 01/08/24 Unknown History diltiazem HCl 120 mg 120 mg PO DAILY BLOOD PRESSURE 01/08/24 Unknown History capsule,extended release 24 hr duloxetine 30 mg capsule,delayed 30 mg PO DAILY DEPRESSION 01/08/24 Unknown History release glipizide 2.5 mg tablet, extended 2.5 mg PO DAILY BLOOD SUGAR 01/08/24 Unknown History release 24 hr lisinopril 20 mg tablet 20 mg PO DAILY BLOOD PRESSURE 01/08/24 Unknown History metformin 1,000 mg tablet 1,000 mg PO BID BLOOD SUGAR 01/08/24 Unknown History methimazole 5 mg tablet 5 mg PO UD THYROID 01/08/24 Unknown History omeprazole 20 mg capsule,delayed 20 mg PO DAILY GERD 01/08/24 Unknown History release Allergy/AdvReac Type Severity Reaction Status Date / Time Sulfa (Sulfonamide Allergy Intermediate NEEDS Verified 01/08/24 07:24 Antibiotics) FOLLOW-UP Social History Smoking Status: Never smoker Physical Exam Const Constitutional Narrative: awake, tracks, does not follow commands, some intelligible speech, mild agitation Orientation / Consciousness: confused HEENT normocephalic and head/scalp atraumatic Eyes PERRL and EOMs intact bilaterally Neck supple and No nodes Neck Narrative: no meningismus Resp normal air movement and clear to auscultation bilaterally Cardio regular rate and regular rhythm GI soft to palpation, non-tender and non-distended Extremity General Extremity: Negative for edema Skin no rashes or lesions noted Neuro CN's II-XII intact bilaterally Lab / Micro Data Attestation: I reviewed the patient's lab results. 01/10/24 05:24 01/10/24 05:24 Labs: Laboratory Results - last 24 hr 01/09/24 15:44: POC Glucose 182 H 01/09/24 21:38: POC Glucose 171 H 01/10/24 05:24: WBC 8.6, RBC 4.05 L, Hgb 11.2 L, Hct 35.7 L, MCV 88.1, MCH 27.7, MCHC 31.4 L, RDW Std Deviation 40.6, RDW Coeff of Carmen 12.6, Plt Count 246, MPV 10.7, Sodium 139, Potassium 3.3 L, Chloride 107, Carbon Dioxide 23.0, Anion Gap 9, BUN 29 H, Creatinine 1.20 H, Estim Creat Clear Calc 37.34, Est GFR (MDRD) Af Amer 56 L, Est GFR (MDRD) Non-Af 46 L, BUN/Creatinine Ratio 24.2 H, Glucose 225 H, Calcium 9.7 01/10/24 11:23: POC Glucose 266 H Imaging Radiology Impression Thyroid Ultrasound 01/08/24 11:09 IMPRESSION: Multinodular goiter with up to 2.3 cm left thyroid TI-RAD 3 lesion and 1.2 cm right thryoid TI-RAD 4 lesion for which 1 year follow-up ultrasound is recommended by ACR TI RADS criteria Electronically Signed: Danielito Moore MD at 3:00 EDT ,
[2024-01-10 16:27] VITALS: BP 167/90; PULSE 104; RESP 18; TEMP 37.1; O2SAT 99
[2024-01-10 17:00] VITALS: BMI 22.5
[2024-01-10] MEDS: Insulin Lispro 100 UNIT/ML INSULN.PEN 8 UNIT SC (17:08)
[2024-01-10 17:41] LABS: Bedside Glucose 201 mg/dL (74-106)
[2024-01-10 17:59] LABS: Vancomycin, Trough Level 14.5 ug/mL (5.0-15.0)
[2024-01-10] MEDS: Vancomycin IV 1,000 MG/200 ML BAG 200 MG IV (18:52)
--- NOTE | 2024-01-10 18:58 | PCM.RX.CS ---
Consult Antibiotic Management Pharmacy has been consulted to manage selected antibiotic: Vancomycin Type of Intervention Type of Consult: Follow-up Suspected Infection Suspected Infection: Meningitis Prior Doses of Antibiotics Prior Doses of Antibiotics Received/Current Regimen: Received 1500mg iv x 1 and 750mg iv x 1. Labs Labs: Sodium 139 mmol/L (136-145) 01/10/24 05:24 Potassium 3.3 mmol/L (3.5-5.1) L 01/10/24 05:24 Chloride 107 mmol/L (98-107) 01/10/24 05:24 Carbon Dioxide 23.0 mmol/L (21.0-32.0) 01/10/24 05:24 Anion Gap 9 (5-15) 01/10/24 05:24 BUN 29 mg/dL (7-18) H 01/10/24 05:24 Creatinine 1.20 mg/dL (0.55-1.02) H 01/10/24 05:24 Est GFR (MDRD) Af Amer 56 mL/min (>60) L 01/10/24 05:24 Est GFR (MDRD) Non-Af 46 mL/min (>60) L 01/10/24 05:24 BUN/Creatinine Ratio 24.2 RATIO (10-20) H 01/10/24 05:24 Glucose 225 mg/dL (74-106) H 01/10/24 05:24 Vancomycin Trough 14.5 ug/mL (5.0-15.0) 01/10/24 17:13 Microbiology Microbiology: Microbiology 01/10/24 10:26 Mucosa - Nasopharyngeal Respiratory Panel (PCR) - Final 01/08/24 07:53 Mucosa - Nasopharyngeal SARS-CoV-2, Influenza & RSV (PCR) - Final Dosing Weight Weight used for dosin.5 kg Estimated Creatinine Clearance Estimated Creatinine Clearance: 37ml/min Goal Trough Goal Trough: 15-20 mcg/mL Pharmacy Plan for Drug Dosing Pharmacy Plan for Drug Dosing: Trough today 14.5 (~22 hrs post dose) and slightly below desired range of 15-20. Recommend increasing dose to 1000mg iv q24h with trough before 3rd dose. Pharmacy Service will continue to monitor and adjust dosing as required. Follow-Up Labs Follow-Up Labs: Trough: Vancomycin (6.29.24 @1830)
[2024-01-10 20:00] VITALS: BP 164/84; PULSE 107; RESP 18; TEMP 36.4; O2SAT 98
[2024-01-11] MEDS: Haloperidol Lactate 5 MG/ML Vial 2 MG IV
[2024-01-11 04:00] VITALS: BP 178/137; PULSE 120; RESP 18; TEMP 36.7; O2SAT 98
[2024-01-11 04:06] VITALS: BMI 22.5
[2024-01-11 04:09] LABS: Absolute Lymphocyte Count 1.26 X10^3/uL (0.83-4.51); Absolute Neutrophil Count 9.3 X10^3/uL (2.0-7.7); Basophil# 0.07 X10^3/uL; Basophil% 0.6 % (0-1); Eosinophil# 0.08 X10^3/uL; Eosinophils% 0.7 % (0-5); Hemoglobin 12.4 g/dL (12.0-15.0); Lymphocyte # 1.26 X10^3/ul (0.83-4.51); Lymphocyte % 10.9 % (19-41); Mean Corp Hgb Conc 31.8 g/dL (32-36); Mean Corpuscular Hgb 27.8 pg (27.0-32.0); Mean Corpuscular Volume 87.4 fL (81-99); Mean Platelet Vol. 10.3 fl (6.2-12.0); Monocyte# 0.85 X10^3/uL; Monocyte% 7.4 % (0-10); NRBC Flagged by Analyzer 0 % (0-5); Neutrophil # 9.25 X10^3/uL (2.7-7.7); Neutrophil % 80.1 % (47-70); Platelet Count 270 K/mm3 (150-450); RBC Distribution Width CV 12.3 % (11.6-14.6); RBC Distribution Width SD 39.7 fl (35.1-43.9); Red Blood Count 4.46 M/mm3 (4.2-5.4); White Blood Count 11.6 K/mm3 (4.4-11.0)
[2024-01-11 04:37] LABS: Anion Gap 12 (5-15); BUN 22 mg/dL (7-18); BUN/Creat Ratio 20.6 RATIO (10-20); Chloride 102 mmol/L (98-107); Creatinine, Serum 1.07 mg/dL (0.55-1.02); EST Glomerular Filtration Rate 53 mL/min (>60); Est Glom Filt Rate - Afr Amer 64 mL/min (>60); Estimated Creatinine Clearance 41.87 ml/min; Glucose 274 mg/dL (74-106); Potassium 3.5 mmol/L (3.5-5.1); Sodium Level 136 mmol/L (136-145)
[2024-01-11] MEDS: Ampicillin 2 GM in 0.9% Normal Saline (100mL MB+) 100 ML IV (05:15)
--- NOTE | 2024-01-11 07:21 | PCM.DC.SUM ---
Providers Date of Admission: 01/08/24 Date of Discharge: 01/11/24 Primary Care Physician: Dr. Radha Orlando, Consultations 01/08/24 11:07 Consult: Tele-Neurology Routine Consulting Provider: [facility] Reason for Consult: Acute Ischemic Stroke/TIA EMERGENT Consult: No Notified: Yes Date Notified: 01/08/24 Time Notified: 11:11 Method of Notification: Answering Service Method of Consult:: Telemedicine Nursing Unit Staff Notify [facility] of Tele-Neurology Consult: Yes 01/10/24 09:06 Consult: Infectious Disease Routine Consulting Provider: Martin Banuelos Reason for Consult: suspected HSV encephalitis or bact meningitis EMERGENT Consult: No Notified: Yes Date Notified: 01/10/24 Time Notified: 09:06 Method of Notification: Text Reason For Visit: ALTERED MENTAL STATUS WITH FEVERS Diagnosis Discharge Diagnosis (1) Acute metabolic encephalopathy: Status: Acute Code(s): G93.41 - Metabolic encephalopathy Plan Patient is a 78-year-old female who presented to [facility] ED on 01/08/2024 with altered mental status and headache, bizarre behavior and incoherent speech. 1. 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 Admit under inpatient status to PCU. Teleneurology followed. MRI brain with contrast on admit with findings concerning for encephalitis versus meningitis. LP unfortunately unable to be performed on day of admission due to severe scoliosis. Given altered mentation, febrile on admission and reported history of headaches for a few days prior to hospitalization, highest concern is for HSV encephalitis versus bacterial meningitis. Per neurology recommendation, patient started on IV vancomycin, cefepime, ampicillin and IV acyclovir. Showing good signs of improvement with treatment on 01/08. Per neurology recs, will repeat MRI brain with contrast this evening for further evaluation. Notably, radiology here will not be able to perform an LP so if patient shows signs of worsening or does not continue to improve, will need to consider transfer to [facility] or another tertiary center for lumbar puncture. Continue to avoid deliriogenic medications as able. Remain n.p.o. for now. 01/09: Patient very confused disoriented. Incomprehensible sound. GCS 10. Discussed with the neurologist. He states to transfer the patient to [facility] for further evaluation and management after the MRI is done. MRI could not be done as she will need propofol to sedate. 01/10: Patient is still confused and disoriented but eyes are open. Incomprehensible sounds. GCS 10. Patient is supposed to be picked up at 7:30 PM to be transferred to [facility] 2. Poorly controlled type 2 diabetes mellitus with severe hyperglycemia ? A1c 10.6% on admit. Home regimen of glipizide 2.5 mg daily, metformin 1000 mg twice daily. Per , patient has never been on insulin therapy. No prior A1c's available in our system for comparison. Blood glucose 566 on admit. Bicarb normal, no anion gap, no concern for DKA. Had mild concern for an HHS type picture but with patient proving on treatments as noted above, suspect sugars were elevated due to active infection. Continue to treat with Lantus 15 units at night, Humalog 5 units with meals plus sliding scale insulin, adjust as needed. Patient currently n.p.o. as noted above. 01/09: Glucose level is very high. Humalog and Lantus dose increased. 01/10 glucose level still high at 274 but Accu-Cheks are better. 3. History of hypothyroidism with thyroid nodule ? On home methimazole. TSH 0.39, free T4 1.31 on admit (both in normal range). CTA head/neck did show 2.8 cm heterogenously enhancing thyroid nodule. Thyroid ultrasound ordered for further workup, study completed but read pending. Per , patient has had thyroid nodule followed for the past few years back in [place]. 01/10: TSH at lower end of normal at 0.39 and free T4 at higher upper normal 1.316 and patient is on methimazole 2.5 mg daily is the lowest dose. The patient should consult his general laborer about the doses of methimazole. Thyroid ultrasound show multinodular goiter. likely no further inpatient needs once ultrasound has been read, will need outpatient follow-up. 4. Hyponatremia, resolved ? Sodium 130 on admit. Chloride 93. Seems most likely secondary to dehydration versus infection. Given supplemental IV fluids on admission. Repeat sodium 139 on hospital day 2. Continue to monitor daily BMP. 5. Elevated creatinine ? Creatinine 1.43 on admit, baseline unknown. Suspect mild bump from baseline due to some degree of dehydration. Given IV fluids on admit as noted above. Creatinine improved to 1.26 on hospital day 2 and patient with adequate urine output. Notably, UA was noninfectious appearing. Continue to monitor BMP and urine output daily. 01/09: Creatinine improving. 1.2. 01/10 creatinine 1.07. Chronic medical conditions: ? Hypertension: Continue home Coreg when able, holding home lisinopril and diltiazem for now. ? Depression/anxiety: Continue home duloxetine when able. ? GERD: Continue home PPI when able. ? Hyperlipidemia: Continue home statin when able. DVT prophylaxis: Heparin subcu CODE STATUS: Full code, unverified The patient is going for transfer to [facility] Microbiology Past 72 Hours 01/08/24 07:53 Mucosa - Nasopharyngeal SARS-CoV-2, Influenza & RSV (PCR) - Final Laboratory Results 01/08/24 10:26: Enterovirus RNA (PCR) Pending 01/09/24 15:44: POC Glucose 182 H 01/09/24 21:38: POC Glucose 171 H 01/10/24 05:24: WBC 8.6, RBC 4.05 L, Hgb 11.2 L, Hct 35.7 L, MCV 88.1, MCH 27.7, MCHC 31.4 L, RDW Std Deviation 40.6, RDW Coeff of Carmen 12.6, Plt Count 246, MPV 10.7, Sodium 139, Potassium 3.3 L, Chloride 107, Carbon Dioxide 23.0, Anion Gap 9, BUN 29 H, Creatinine 1.20 H, Estim Creat Clear Calc 37.34, Est GFR (MDRD) Af Amer 56 L, Est GFR (MDRD) Non-Af 46 L, BUN/Creatinine Ratio 24.2 H, Glucose 225 H, Calcium 9.7 01/10/24 10:46: EBV Capsid Ag IgM Ab Pending, Herpes Simplex Typing Pending, MICHELINE Virus DNA (PCR) Pending 01/10/24 11:23: POC Glucose 266 H Medications at Discharge Home Medications atorvastatin 10 mg tablet 10 mg PO DAILY CHOLESTEROL 01/08/24 carvedilol 25 mg tablet 25 mg PO BID HEART 01/08/24 diltiazem HCl 120 mg capsule,extended release 24 hr 120 mg PO DAILY BLOOD PRESSURE 01/08/24 duloxetine 30 mg capsule,delayed release 30 mg PO DAILY DEPRESSION 01/08/24 glipizide 2.5 mg tablet, extended release 24 hr 2.5 mg PO DAILY BLOOD SUGAR 01/08/24 lisinopril 20 mg tablet 20 mg PO DAILY BLOOD PRESSURE 01/08/24 metformin 1,000 mg tablet 1,000 mg PO BID BLOOD SUGAR 01/08/24 methimazole 5 mg tablet 5 mg PO UD THYROID 01/08/24 omeprazole 20 mg capsule,delayed release 20 mg PO DAILY GERD 01/08/24 Physical Exam Narrative Seen and examined. When I entered the room, IV stent was already fallen on the ground and patient bed was in disarray. The nursing staff was informed and was taking care of. Blood pressure is elevated but is variable from 121/71-178/137. Patient confused, incomprehensible words and disoriented. Nursing staff Physical exam General: Confused and disoriented. Eyes open. HEENT: No neck rigidity. Atraumatic, PERRLA, EOMI, Normocephalic Oral: No Gingival or Mucosal Lesions/ Ulcerations Neck: Supple, No JVD, Negative Carotid Bruits Chest wall/Lungs: Air entry diminished in bilateral lung bases. No crepitation/rhonchi Cardiovascular: Regular rate, Regular Rhythm, Normal S1, Normal S2, No M/G/R Abdomen: Bowel Sounds Present, Soft, Non Tender, Non-Distended : No dysuria. No renal angle tenderness. No suprapubic tenderness. Extremities: No edema, Capillary Refill Less than 3 Seconds Skin: No rashes, No breakdown Musculoskeletal: No Tenderness to Palpation of Joints or Extremities Neurological: Nonfocal exam. Sound with incomprehensible words. DTR 2+/4. No acute focal neurological deficit. Psych/Mental Status: Flat affect. Weight / BMI Weight Weight: 139 lb 15.896 oz Body Mass Index (BMI) 22.5 ABG / Lab / Microbiology Data 01/11/24 03:50 01/11/24 03:50 Laboratory: Laboratory Results - last 24 hr 01/10/24 11:23: POC Glucose 266 H 01/10/24 17:06: POC Glucose 201 H 01/10/24 17:13: Vancomycin Trough 14.5 01/11/24 03:50: WBC 11.6 H, RBC 4.46, Hgb 12.4, Hct 39.0, MCV 87.4, MCH 27.8, MCHC 31.8 L, RDW Std Deviation 39.7, RDW Coeff of Carmen 12.3, Plt Count 270, MPV 10.3, Immature Gran % (Auto) 0.300, Neut % (Auto) 80.1 H, Lymph % (Auto) 10.9 L, [place] % (Auto) 7.4, Eos % (Auto) 0.7, Baso % (Auto) 0.6, Absolute Neuts (auto) 9.3 H, Absolute Lymphs (auto) 1.26, Nucleated RBC % 0, Sodium 136, Potassium 3.5, Chloride 102, Carbon Dioxide 22.0, Anion Gap 12, BUN 22 H, Creatinine 1.07 H, Estim Creat Clear Calc 41.87, Est GFR (MDRD) Af Amer 64, Est GFR (MDRD) Non-Af 53 L, BUN/Creatinine Ratio 20.6 H, Glucose 274 H, Calcium 10.0 Microbiology: Microbiology 01/10/24 10:26 Mucosa - Nasopharyngeal Respiratory Panel (PCR) - Final 01/08/24 07:53 Mucosa - Nasopharyngeal SARS-CoV-2, Influenza & RSV (PCR) - Final Meaningful Use Info Meaningful Use Meaningful Use Diagnoses (Choose all that apply): None applicable Ischemic Stroke Statin Dosing Therapy Reference: STATIN DOSE THERAPY REFERENCE: * Patients > 75 years receive moderate or high dose statin therapy. * Patients 75 years or YOUNGER should receive HIGH intensity statin dose unless contraindicated. You will be required to document reason for non-treatment if statin daily dose does not meet guidelines. HIGH DOSE STATIN THERAPY DAILY Atorvastatin > than or = to 40 mg Rosuvastatin > than or = to 20 mg Amlodipine + Atorvastatin > than or = to 2.5/40 mg Ezetimibe + Simvastatin 10/80 mg Simvastatin 80mg Discharge Plan Admission Admit Date/Time: 01/08/24 10:07 Attending Provider: Ventura De Leon Primary Care Provider: Radha Orlando Consulting Providers: Victor Hugo Dyson; Dante Roth; Karly De Souza; Heaven Bloom; Alana Ramírez; Ortiz Sommers; Tosha Mcclellan; Jair Beard; Jose Paige; Fabrice Duenas; Mecca Braun; Danielito Betancourt; Mayela Viramontes; Eleni Perez; Jaimiematilda Cesar; Israel Kapadia; Liyah Tolentino; Margarito Walters; Veronica Stubbs; Gracie Hermosillo; Gracy Alas; Ad Chapa; Norma Brooke; KRISTY DORANTES; Leonidas Silva; Maegan Saavedra; Bc Zeng; Martin Banuelos Discharge Orders/Prescriptions Prescriptions: No Action methimazole 5 mg tablet 5 mg PO UD Rx Instructions: TAKE ONE TABLET (5 MG) BY MOUTH THREE TIMES A WEEK AND ALSO TAKE 1/2 TABLET (2.5 MG) ONCE A WEEK. diltiazem HCl 120 mg capsule,extended release 24hr 120 mg PO DAILY carvedilol 25 mg tablet 25 mg PO BID atorvastatin 10 mg tablet 10 mg PO DAILY lisinopril 20 mg tablet 20 mg PO DAILY glipizide 2.5 mg tablet extended release 24hr 2.5 mg PO DAILY metformin 1,000 mg tablet 1,000 mg PO BID omeprazole 20 mg capsule,delayed release(DR/EC) 20 mg PO DAILY duloxetine 30 mg capsule,delayed release(DR/EC) 30 mg PO DAILY Referrals / Follow Up: Radha Orlando DO [Primary Care Provider] - Disposition Discharge Orders: Discharge Patient (Routine); Ordered 01/10/24 Ordered By: Dr. Ventura De Leon Charges/Coding Visit Charges Inpatient E&M: 77017 Disch Hosp >30min
[2024-01-11 07:33] VITALS: BP 174/90; PULSE 113; RESP 20; TEMP 36.7; O2SAT 100
[2024-01-11 07:35] VITALS: PULSE 113; RESP 20; O2SAT 100
--- NOTE | 2024-01-11 07:46 | NURSING ---
Pt. was resting in bed with eyes open, appearing withdrawn @ beginning of shift with @ bedside. Pt. became aggressive with staff shortly after left @ approx. 2200. Pt. began yelling and swinging arms/grabbing @ staff. When approached by a different staff member, pt. would talk with them calmly for a few minutes but then begin yelling and attempting to hit that staff. Was approached by multiple staff members but pt. did not seem to prefer anyone. Pt. also pulled out 2 IVs and began pulling on argueta catheter tubing. Dr. Hughes was notified and gave order to give pt. haldol. This helped pt. appear to calm down somewhat but whenever reapproached by someone, pt. became aggressive/combative again. Pt. refused multiple attempts by this nurse to check blood glocose, vital signs, and hygiene care. Pt. awaiting transport to [facility]- report called to floor to JESSICA Cota, @ approx. 0445 and advised him of current hospitalization findings and current LOC/behavior.
[2024-01-11 07:57] LABS: Bedside Glucose 267 mg/dL (74-106)
[2024-01-11 08:04] VITALS: BMI 22.5
[2024-01-14 11:07] LABS: EBV Acute VCA IgM < 36.0 U/mL (0.0-35.9)
[2024-01-16 14:10] LABS: Enterovirus By PCR Negative (Negative)
== END 2024-01-11 08:07 | disposition short-term general hospital (02) | DRG 97 ==
LOC: ED 08:27 → PCU 10:43
PROVIDERS: Admitting Provider Hospitalist; Emergency Provider Student in an Organized Health Care Education/Training Program; PCP Internal Medicine; Visit Provider Internal Medicine
DX: G03.9 Meningitis, unspecified (principal); G93.41 Metabolic encephalopathy; E87.1 Hypo-osmolality and hyponatremia; I65.02 Occlusion and stenosis of left vertebral artery; E11.65 Type 2 diabetes mellitus with hyperglycemia; I10 Essential (primary) hypertension; F32.A Depression, unspecified; E03.9 Hypothyroidism, unspecified; E04.1 Nontoxic single thyroid nodule; M41.9 Scoliosis, unspecified; E78.5 Hyperlipidemia, unspecified; K21.9 Gastro-esophageal reflux disease without esophagitis; I65.21 Occlusion and stenosis of right carotid artery; F41.9 Anxiety disorder, unspecified; R50.9 Fever, unspecified; Z79.84 Long term (current) use of oral hypoglycemic drugs
CPT/HCPCS: 36415; 51702; 70450; 70496; 70498; 70553; 71045; 76536; 80048; 80061; 80076; 80202; 80307; 81001; 82140; 82962; 83036; 83605; 84439; 84443; 84484; 85025; 85027; 85610; 85730; 86665; 87040; 87255; 87498; 87631; 87633; 87798; 92610; 93005; 93306; 95819; 97802; 99285; A9575; J7030; J7040; J7050; Q9967; A4216

== ENCOUNTER 2024-06-17 12:18 | Inpatient (IN) | payer MEDICARE, BC, SELFPAY ==
[2024-06-17 12:21] VITALS: BP 149/133; PULSE 105; RESP 18; TEMP 36.8; O2SAT 97; BMI 23.7
--- NOTE | 2024-06-17 12:26 | CT_ITS ---
STUDY: CT BRAIN WITHOUT CONTRAST REASON FOR EXAM: Female, 79 years old. History of fall. RADIATION DOSAGE (If Supplied By Facility): CTDIvol = ( 44.99 ) mGy, DLP = ( 1625.96 ) mGycm TECHNIQUE: Transaxial CT imaging of the brain was performed without administration of intravenous contrast material. Individualized dose optimization techniques were used for this CT. COMPARISON: Comparison is made with prior study dated January 08, 2024. FINDINGS: Normal soft tissue structures. Normal calvarium. There is moderate cerebral atrophy with widening of the extra-axial spaces and ventricular dilatation. There are areas of decreased attenuation within the white matter tracts of the supratentorial brain, consistent with microvascular disease changes. Normal basal ganglia and thalami. Normal brainstem. Normal cerebellum. There is no intracranial hemorrhage. There are no findings of an acute ischemic infarction. Atherosclerotic plaque formation of the vertebral arteries and cavernous portions of the internal carotid arteries bilaterally. Normal visualized paranasal sinuses. CT/Brain/Head without Contrast IMPRESSION: Chronic involutional changes of the brain. Electronically Signed: Jesus Linares MD at 13:35 EST ,
--- NOTE | 2024-06-17 12:26 | CT_ITS ---
STUDY: CT CERVICAL SPINE WITHOUT CONTRAST REASON FOR EXAM: Female, 79 years old. Neck injury due to a fall. RADIATION DOSAGE (If Supplied By Facility): CTDIvol = ( 16.37 ) mGy, DLP = ( 328.51 ) mGycm TECHNIQUE: High resolution transaxial imaging was performed without contrast material. Sagittal and coronal images were reconstructed. Individualized dose optimization techniques were used for this CT. COMPARISON: None FINDINGS: Normal craniovertebral junction. Normal anterior atlantoaxial articulation. Normal odontoid process. Normal cervical lordosis. Normal vertebral bodies and posterior osseous elements. C2-3: Normal endplates. Normal disc height and morphology. Normal central canal and intervertebral neuroforamina. C3-4: Normal endplates. Normal disc height and morphology. Normal central canal and intervertebral neuroforamina. C4-5: Normal endplates. Normal disc height and morphology. Normal central canal and intervertebral neuroforamina. C5-6: Marked degree of disc space narrowing with the subchondral sclerosis and mild spondylosis. Large central disc herniation causing central canal stenosis. C6-7: Normal endplates. Normal disc height and morphology. Normal central canal and intervertebral neuroforamina. C7-T1: Normal endplates. Normal disc height and morphology. Normal central canal and intervertebral neuroforamina. Atherosclerotic plaque formation of the vertebral arteries and carotid bifurcations bilaterally. CT/Spine Cervical without Contras IMPRESSION: Multilevel degenerative changes, as described above. Large central disc herniation at the C5-C6 level causing central canal stenosis. Electronically Signed: Jesus Linares MD at 13:42 EST ,
--- NOTE | 2024-06-17 12:27 | EKG12_ITS ---
Test Reason : BACK PAIN Blood Pressure : */* mmHG Vent. Rate : 104 BPM Atrial Rate : 104 BPM P-R Int : 182 ms QRS Dur : 98 ms QT Int : 370 ms P-R-T Axes : 64 5 59 degrees QTcB Int : 486 ms Sinus tachycardia Nonspecific ST abnormality Abnormal ECG Confirmed by Charlie Maravilla ([id number]), department editor ANTONIA CADET ([id number]) on 06/18/2024 6:31:44 AM Referred By: Confirmed By: Charlie Maravilla
--- NOTE | 2024-06-17 12:28 | EDS_ITS ---
HPI HPI - Fall History of Present Illness Chief Complaint: Fall Detail of Chief Complaint: Fall with right hip injury Informant: EMS Narrative Narrative: Patient presents via EMS from home after a fall. Patient cannot give any history as she has history of confusion and dementia. Patient apparently was on a carpeted floor for about 7 hours before the called EMS. Cannot get much history from the patient and currently not present. Patient was noted to have a shortened right hip. PFSH PFSH Medical History unable to obtain Home Medications ?Medication ?Instructions ?Recorded ?Last Taken ?Type atorvastatin 10 mg tablet 10 mg PO DAILY CHOLESTEROL 01/08/24 Unknown History carvedilol 25 mg tablet 25 mg PO BID HEART 01/08/24 Unknown History diltiazem HCl 120 mg 120 mg PO DAILY BLOOD PRESSURE 01/08/24 Unknown History capsule,extended release 24 hr duloxetine 30 mg capsule,delayed 30 mg PO DAILY DEPRESSION 01/08/24 Unknown History release glipizide 2.5 mg tablet, extended 2.5 mg PO DAILY BLOOD SUGAR 01/08/24 Unknown History release 24 hr lisinopril 20 mg tablet 20 mg PO DAILY BLOOD PRESSURE 01/08/24 Unknown History metformin 1,000 mg tablet 1,000 mg PO BID BLOOD SUGAR 01/08/24 Unknown History methimazole 5 mg tablet 5 mg PO UD THYROID 01/08/24 Unknown History omeprazole 20 mg capsule,delayed 20 mg PO DAILY GERD 01/08/24 Unknown History release Allergy/AdvReac Type Severity Reaction Status Date / Time Sulfa (Sulfonamide Allergy Intermediate NEEDS Verified 01/08/24 07:24 Antibiotics) FOLLOW-UP Social History Smoking Status: Never smoker ROS ROS ED Review of Systems ROS Unobtainable: due to mental condition EXAM Physical Exam Const Vital Signs: 06/17/24 12:21 06/17/24 12:58 Temperature 98.2 F Temperature Source Oral Pulse Rate 105 H Respiratory Rate 18 Respiratory Effort Normal Respiratory Depth Normal Respiratory Pattern Normal Blood Pressure 149/133 H Blood Pressure Mean 138 Pulse Ox 97 Oxygen Delivery Method Room Air Positive well nourished and well developed General Appearance ED: well developed and NAD HEENT Reports TM's clear and moist mucous membranes HEENT Narrative: No external evidence of trauma to her head. normocephalic and atraumatic; Negative for trauma or tenderness Tympanic Membrane ED: Yes TM's clear Eyes PERRL and EOMs intact bilaterally General Eye ED: Negative for pale conjunctiva or scleral icterus Neck no lymphadenopathy, supple and no JVD General: Negative for tenderness Chest Wall inspection of chest normal and palpation of chest normal Chest: Negative for tenderness Resp normal respiratory effort and clear to auscultation bilaterally Effort and Inspection: Negative for respiratory distress or pain with movement Auscultation: Negative for rhonchi, wheezes or diminished lung sounds Cardio regular rate, regular rhythm, S1 normal heart sound, S2 normal heart sound and no murmurs Peripheral Pulses: pulses 2+ throughout GI normal to inspection, nondistended, normoactive bowel sounds, soft to palpation, non-tender, non-distended and no masses Back/Spine no CVA tenderness and no thoracic nor lumbar tenderness Extremity Extremity Narrative: Right hip-shortened and slightly externally rotated. Tenderness with range of motion and logrolling. Mild tenderness over the right hip. General Extremety ED: Negative for edema General Extremity: Negative for edema Neuro oriented x3, CN's II-XII intact bilaterally, no sensory deficits noted and gait normal Sensorium / Orientation: awake, alert, oriented to person, oriented to place and oriented to time Motor Exam: strength 5/5 throughout and strength abnormal Psych mental status grossly normal Skin no rashes or lesions noted and no wounds MDM MDM MDM Narrative Medical decision making narrative: Patient presents after a fall and unable to get up. Prior surgery to right hip 2 and half years ago in [place]. She presents with a shortened right lower extremity. is not sure if that is sequela of prior hip fracture. He thinks it is. Normally she walks with a rollator or uses wheelchair. Patient had an IV line established. CBC with differential count of 13.4 with hemoglobin 15 and platelet count of 273. Chemistries unremarkable. BUN 27 and creatinine 1.3. Glucose 465. CPK was [address] showed chronic involutional changes. CT of the C-spine showed no fractures but showed large central disc herniation at C5-6 level causing central canal stenosis. Chest x- ray unremarkable. X-ray of right hip and pelvis shows patient to be status post ORIF right intertrochanteric fracture nonhealed. Patient was given insulin 10 units subcu. She was ordered a liter normal saline fluid bolus. Case discussed with hospitalist to evaluate patient for admission. Lab Data Attestation: I reviewed the patient's lab results. Labs: Laboratory Results - last 24 hr 06/17/24 12:24 WBC 13.4 H RBC 5.79 H Hgb 15.0 Hct 48.2 H MCV 83.2 MCH 25.9 L MCHC 31.1 L RDW Std Deviation 48.9 H RDW Coeff of Carmen 16.7 H Plt Count 273 MPV 11.2 Immature Gran % (Auto) 0.500 Neut % (Auto) 90.6 H Lymph % (Auto) 4.7 L [place] % (Auto) 3.8 Eos % (Auto) 0.0 Baso % (Auto) 0.4 Absolute Neuts (auto) 12.1 H Absolute Lymphs (auto) 0.63 L Nucleated RBC % 0 Sodium 138 Potassium 3.5 Chloride 100 Carbon Dioxide 25.0 Anion Gap 14 BUN 27 H Creatinine 1.30 H Estim Creat Clear Calc 33.93 Est GFR (MDRD) Af Amer 51 L Est GFR (MDRD) Non-Af 42 L BUN/Creatinine Ratio 20.8 H Glucose 465 H* Calcium 11.4 H Total Creatine Kinase 526 H Troponin I High Sens 47 Radiography Diagnostic Testing: Clinical Impression(s) from Imaging Studies Brain CT 06/17/24 12:26 IMPRESSION: Chronic involutional changes of the brain. Electronically Signed: Jesus Linares MD at 13:35 EST , Cervical Spine CT 06/17/24 12:26 IMPRESSION: Multilevel degenerative changes, as described above. Large central disc herniation at the C5-C6 level causing central canal stenosis. Electronically Signed: Jesus Linares MD at 13:42 EST , Chest X-Ray 06/17/24 13:00 IMPRESSION: The lungs are clear. Electronically Signed: Jesus Linares MD at 13:37 EST , Hip/Pelvis X-Ray 06/17/24 13:00 IMPRESSION: Status post ORIF of a right intertrochanteric fracture. Nonhealed. Electronically Signed: Jesus Linares MD at 13:39 EST , EKG Initial EKG: Attestation: I personally reviewed and interpreted this EKG as follows: Comments: Sinus rhythm with rate of [address] changes Discharge Plan Triage Chief Complaint: Fall ED Provider: Nadeem Taylor Dx/Rx/DC Orders Clinical Impression: Fall, Dementia, Hyperglycemia, Dehydration, Acute pain of right hip Prescriptions: No Action methimazole 5 mg tablet 5 mg PO UD Rx Instructions: TAKE ONE TABLET (5 MG) BY MOUTH THREE TIMES A WEEK AND ALSO TAKE 1/2 TABLET (2.5 MG) ONCE A WEEK. diltiazem HCl 120 mg capsule,extended release 24hr 120 mg PO DAILY carvedilol 25 mg tablet 25 mg PO BID atorvastatin 10 mg tablet 10 mg PO DAILY lisinopril 20 mg tablet 20 mg PO DAILY glipizide 2.5 mg tablet extended release 24hr 2.5 mg PO DAILY metformin 1,000 mg tablet 1,000 mg PO BID omeprazole 20 mg capsule,delayed release(DR/EC) 20 mg PO DAILY duloxetine 30 mg capsule,delayed release(DR/EC) 30 mg PO DAILY Primary Care Provider: Radha Orlando Referrals: Radha Orlando DO [Primary Care Provider] - Print Language: Maltese Disposition Disposition: Acute Care Hospital [facility]
[2024-06-17] MEDS: 0.9% Normal Saline (1000mL) 1,000 ML 1000 ML IV (12:37)
[2024-06-17 12:46] LABS: Absolute Lymphocyte Count 0.63 X10^3/uL (0.83-4.51); Absolute Neutrophil Count 12.1 X10^3/uL (2.0-7.7); Basophil# 0.06 X10^3/uL; Basophil% 0.4 % (0-1); Hematocrit 48.2 % (37-47); Lymphocyte # 0.63 X10^3/ul (0.83-4.51); Lymphocyte % 4.7 % (19-41); Mean Corp Hgb Conc 31.1 g/dL (32-36); Mean Corpuscular Hgb 25.9 pg (27.0-32.0); Mean Corpuscular Volume 83.2 fL (81-99); Mean Platelet Vol. 11.2 fl (6.2-12.0); Monocyte# 0.51 X10^3/uL; Monocyte% 3.8 % (0-10); NRBC Flagged by Analyzer 0 % (0-5); Neutrophil # 12.11 X10^3/uL (2.7-7.7); Neutrophil % 90.6 % (47-70); Platelet Count 273 K/mm3 (150-450); RBC Distribution Width CV 16.7 % (11.6-14.6); RBC Distribution Width SD 48.9 fl (35.1-43.9); Red Blood Count 5.79 M/mm3 (4.2-5.4); White Blood Count 13.4 K/mm3 (4.4-11.0)
--- NOTE | 2024-06-17 13:00 | RAD_ITS ---
STUDY: X-RAY CHEST REASON FOR EXAM: Female, 79 years old. Fall TECHNIQUE: Single AP portable view of the chest. COMPARISON: Comparison is made with prior study January 08, 2024. FINDINGS: The lungs are clear and expanded. There is no demonstrated pleural abnormality. Normal size heart. Normal mediastinum and tucker. Normal visualized pulmonary arteries. There is atherosclerotic tortuosity of the aortic arch and descending thoracic aorta. There are diffuse degenerative changes of the visualized thoracic spine. Dextroscoliosis. Normal visualized ribs, clavicles, and shoulders. There is no demonstrated abnormality of the visualized soft tissue structures of the upper abdomen. RAD/Chest 1 View (Portable) IMPRESSION: The lungs are clear. Electronically Signed: Jesus Linares MD at 13:37 EST ,
--- NOTE | 2024-06-17 13:00 | RAD_ITS ---
STUDY: X-RAY - PELVIS AND RIGHT HIP REASON FOR EXAM: Female, 79 years old. Fall TECHNIQUE: 3 views of the pelvis and hip. COMPARISON: None. FINDINGS: There is a non-specific bowel gas pattern. Normal visualized soft tissue structures. There is narrowing with cortical sclerosis and osteophyte formation of the sacroiliac joint consistent with degenerative osteoarthritic changes. Normal bilateral superior and inferior pubic rami. There are degenerative changes of the pubic symphysis with articular narrowing and sclerosis. Normal bilateral ischial tuberosities. The patient is status post open reduction and internal fixation of a right anterior to enteric fracture with the side plate compressive screw and intramedullary tigist fixation device. The fracture is not healed at this time. RAD/HIP, UNI W/ Pelvis 2-3 Views IMPRESSION: Status post ORIF of a right intertrochanteric fracture. Nonhealed. Electronically Signed: Jesus Linares MD at 13:39 EST ,
[2024-06-17 13:07] LABS: Anion Gap 14 (5-15); BUN 27 mg/dL (7-18); BUN/Creat Ratio 20.8 RATIO (10-20); CPK Total, Creatine Kinase 526 U/L (26-192); Calcium,Total 11.4 mg/dL (8.5-10.1); Chloride 100 mmol/L (98-107); EST Glomerular Filtration Rate 42 mL/min (>60); Est Glom Filt Rate - Afr Amer 51 mL/min (>60); Estimated Creatinine Clearance 33.93 ml/min; Glucose 465 mg/dL (74-106); Potassium 3.5 mmol/L (3.5-5.1); Sodium Level 138 mmol/L (136-145); Troponin-I HS 47 pg/mL (3.0-54.0)
[2024-06-17 14:19] VITALS: BP 193/96; PULSE 103; RESP 18; O2SAT 98
[2024-06-17] MEDS: Insulin Lispro 100 UNIT/ML INSULN.PEN 10 UNIT SC (14:55)
--- NOTE | 2024-06-17 14:58 | PCM.HP.STD ---
HPI - General General Date of Admission: 06/17/24 Date of Service: 06/17/24 Chief Complaint: R hip pain, ams HPI Narrative OLY REYES, is a 79-year-old female history of depression, hypertension, hyperthyroidism, GERD, diabetes who presented to [facility] ED 06/17/2024 due to being unable to get up from the ground. present at bedside who provides history given patient's mental status. Reportedly yesterday evening he went up to check on her and she had slid down a chest of drawers and he does not think she fell, she laid on the ground and they had been trying to get her up to wheelchair, this morning they were still unable to get her up prompting them to come in. He remarks that if they have been able to get her into a wheelchair he likely would not brought her here. Does note that overnight she has been more altered, she was not feeling particularly well yesterday during the day so they rescheduled a doctor's appointment but he was adamant that this has nothing to do with what is currently going on and that this is all started since she slid down the doors last night. In the ED she was noted to have a shorter right leg compared to left and confirms she walks with a limp and he is unsure if legs at his baseline or not but she does not necessarily think she fell. Patient does have some right thigh pain but she cannot comment any further on that. Patient does have right ORIF on the right and hip/pelvis redemonstrated the fracture, her surgery was 2 and half years ago, unclear if this had never healed correctly or if there is new fracture and patient unable to give history. In the ED she was also noted to be hypertensive with blood pressure up to 190s, glucose 456 and patient appeared significantly volume depleted both clinically and she had a hemoglobin of 15 with a baseline between 8-9, also calcium is 11.7. Of note she was here in December and had to be transferred to [facility] due to concerns for meningitis, reports she was on antibiotics for 2 weeks for treatment for meningitis but during that hospitalization she also ended up with a bowel obstruction and she had some of her small bowel removed so she was in the hospital for a couple months and then she was in [facility] for 21 days. Has been home since then. reports she has been eating and drinking well but he agrees that she appears very dehydrated at this time. Reports her memory at baseline is not good but currently she is more altered than usual. PENDING SALE TO [facility] Medical History unable to obtain Home Medications ?Medication ?Instructions ?Recorded ?Last Taken ?Type atorvastatin 10 mg tablet 10 mg PO DAILY CHOLESTEROL 01/08/24 Unknown History carvedilol 25 mg tablet 25 mg PO BID HEART 01/08/24 Unknown History diltiazem HCl 120 mg 120 mg PO DAILY BLOOD PRESSURE 01/08/24 Unknown History capsule,extended release 24 hr duloxetine 30 mg capsule,delayed 30 mg PO DAILY DEPRESSION 01/08/24 Unknown History release glipizide 2.5 mg tablet, extended 2.5 mg PO DAILY BLOOD SUGAR 01/08/24 Unknown History release 24 hr lisinopril 20 mg tablet 20 mg PO DAILY BLOOD PRESSURE 01/08/24 Unknown History metformin 1,000 mg tablet 1,000 mg PO BID BLOOD SUGAR 01/08/24 Unknown History methimazole 5 mg tablet 5 mg PO UD THYROID 01/08/24 Unknown History omeprazole 20 mg capsule,delayed 20 mg PO DAILY GERD 01/08/24 Unknown History release Allergy/AdvReac Type Severity Reaction Status Date / Time Sulfa (Sulfonamide Allergy Intermediate NEEDS Verified 01/08/24 07:24 Antibiotics) FOLLOW-UP Social History Smoking Status: Never smoker ROS ROS Narrative Unable to obtain secondary to patient mental status Vital Signs Vital Signs Vital Signs: 06/17/24 12:21 06/17/24 12:58 06/17/24 14:19 Temperature 98.2 F Temperature Source Oral Pulse Rate 105 H 103 H Respiratory Rate 18 18 Respiratory Effort Normal Respiratory Depth Normal Respiratory Pattern Normal Blood Pressure 149/133 H 193/96 H Blood Pressure Mean 138 128 Pulse Ox 97 98 Oxygen Delivery Method Room Air Room Air Weight Weight: 66.7 kg Body Mass Index (BMI) 23.7 Physical Exam Narrative General: Patient wakes up and attempts to answer questions but has difficulty doing so due to mental status HEENT: Appears to be normocephalic Eyes: Anicteric, patient difficulty with participating in exam but extraocular movements grossly intact Neck: Supple Respiratory: Clear to auscultation bilaterally, normal respiratory effort Cardiovascular: Low-grade sinus tachycardia GI: Soft, nontender, nondistended Extremities: No edema Musculoskeletal: Moving all extremities, right extremity is shorter than left extremity Neuro: Unable to participate in neuroexam, no neck tenderness and able to move neck freely, reflexes symmetric, patient is slightly tremulous all over Skin: No rashes appreciated Psych: Cooperative Results Lab / Micro Data 06/17/24 12:24 06/17/24 12:24 Labs: Laboratory Results - last 24 hr 06/17/24 12:24: WBC 13.4 H, RBC 5.79 H, Hgb 15.0, Hct 48.2 H, MCV 83.2, MCH 25.9 L, MCHC 31.1 L, RDW Std Deviation 48.9 H, RDW Coeff of Carmen 16.7 H, Plt Count 273, MPV 11.2, Immature Gran % (Auto) 0.500, Neut % (Auto) 90.6 H, Lymph % (Auto) 4.7 L, [place] % (Auto) 3.8, Eos % (Auto) 0.0, Baso % (Auto) 0.4, Absolute Neuts (auto) 12.1 H, Absolute Lymphs (auto) 0.63 L, Nucleated RBC % 0, Sodium 138, Potassium 3.5, Chloride 100, Carbon Dioxide 25.0, Anion Gap 14, BUN 27 H, Creatinine 1.30 H, Estim Creat Clear Calc 33.93, Est GFR (MDRD) Af Amer 51 L, Est GFR (MDRD) Non-Af 42 L, BUN/Creatinine Ratio 20.8 H, Glucose 465 H*, Calcium 11.4 H, Total Creatine Kinase 526 H, Troponin I High Sens 47 Imaging Radiology Impression Brain CT 06/17/24 12:26 IMPRESSION: Chronic involutional changes of the brain. Electronically Signed: Jesus Linares MD at 13:35 EST , Cervical Spine CT 06/17/24 12:26 IMPRESSION: Multilevel degenerative changes, as described above. Large central disc herniation at the C5-C6 level causing central canal stenosis. Electronically Signed: Jesus Linares MD at 13:42 EST , Chest X-Ray 06/17/24 13:00 IMPRESSION: The lungs are clear. Electronically Signed: Jesus Linares MD at 13:37 EST , Hip/Pelvis X-Ray 06/17/24 13:00 IMPRESSION: Status post ORIF of a right intertrochanteric fracture. Nonhealed. Electronically Signed: Jesus Linares MD at 13:39 EST , Assessment & Plan Assessment/Plan (1) Dehydration: PLAN: Plan # Altered mental status, suspect metabolic encephalopathy -Patient appears significantly volume depleted, hemoglobin 15 with a baseline closer to 8-9, additionally BUN 27 creatinine 130 -Glucose 465 -Additionally patient with calcium of 11.4, though not severely elevated and is higher than patient's baseline and could be causing or contributing to the altered mental status -Will check vitamin D, Phos, PTH -Check ammonia -UA ordered -IV fluids ordered -Hold her thyroid studies as well -Per this is all been since overnight -Patient able to move her neck and has no tenderness there #Dehydration -Unclear if this is due to the elevated calcium or glucose or if those are from the dehydration -IV fluids # Right hip pain in setting of previous right ORIF -X-ray shows ORIF of right intertrochanteric fracture that is unhealed -No previous films, unclear if this is previous fracture that was not healed or new fracture -Does have shortened right extremity but has been reports she walks with a limp and is unclear if this is new or not -Will obtain CT of the limb for better characterization -May need Ortho consult -Will need PT/OT -Case management # Hypertensive urgency -Blood pressure 193/96, will resume patient's home medications carvedilol and diltiazem and add as needed medication -Given some increase in BUN and creatinine we will hold lisinopril # Hyperthyroidism -Check TSH and free T4 -Continue home methimazole #Hyperglycemia in setting of Type 2 diabetes mellitus -Received 10 units in the ED -Glucose checks and sliding scale insulin #GERD -Continue PPI #Depression/anxiety -Continue home medications #DVT ppx: SCDs Charges/Coding Visit Charges Inpatient E&M: 04374 Init Hosp L2
[2024-06-17 16:00] VITALS: BP 167/119; PULSE 109; RESP 18; O2SAT 98
[2024-06-17 16:00] LABS: PTHIN 55.4 pg/mL (18.4-80.1)
[2024-06-17] MEDS: 0.9% Normal Saline (1000mL) 1,000 ML 999 ML IV (16:18)
--- NOTE | 2024-06-17 16:20 | CT_ITS ---
CT RIGHT LOWER EXTREMITY WITH 3-D IMAGING CLINICAL INDICATION: evaluate possible new fracture TECHNIQUE: Axial CT images of the RIGHT lower extremity was performed IV contrast material. Coronal and sagittal reformats were provided. The protocol utilizes one or more of the following dose reduction techniques: automated exposure control, adjustment of mA and/or kV according to patient size,and/or use of iterative reconstruction technique. RADIATION DOSAGE (If Supplied By Facility): CTDIvol = ( 16.33 ) mGy, DLP = ( 957.54 ) mGycm COMPARISON: FINDINGS: Bones: There is an incompletely healed intertrochanteric fracture of the right hip status post ORIF with fracture fragments in near-anatomic alignment and position. The acetabulum is intact No lytic or blastic osseous masses. Soft Tissues: The deep soft tissue structures are unremarkable. The superficial soft tissues are unremarkable without evidence of edema, hematoma, or foreign body. CT/Extremity Lower without Contra IMPRESSION: Incompletely healed intertrochanteric fracture status post ORIF. Without benefit of old films for comparison purposes is difficult to say whether this represents coexisting new injury. Would recommend correlation with prior studies when available No other fractures identified. Electronically Signed: Willie Almeida MD at 17:13 EST ,
[2024-06-17 16:23] LABS: Free T3 3.8 pg/mL (2.18-3.98); Magnesium 1.6 mg/dL (1.6-2.6)
[2024-06-17 16:32] VITALS: BP 148/92; PULSE 109; RESP 16; TEMP 36.6; O2SAT 97
[2024-06-17 16:54] VITALS: BP 157/83; PULSE 108; RESP 16; TEMP 37.4; O2SAT 100
[2024-06-17] MEDS: 0.9% Normal Saline (1000mL) 1,000 ML 200 ML IV (17:16)
[2024-06-17 17:40] LABS: AST(SGOT) 33 U/L (15-37); Alanine Aminotransfer ALT/SGPT 23 U/L (13-56); Albumin, Serum 4.6 g/dL (3.2-5.0); Alkaline Phosphatase 97 U/L (45-117); Bilirubin, Direct 0.31 mg/dL (0.00-0.30); Globulin 4.4 g/dL (2.2-4.2)
[2024-06-17] MEDS: Insulin Lispro 100 UNIT/ML INSULN.PEN SC ×2 (17:50→21:05)
[2024-06-17 18:20] LABS: Bedside Glucose 335 mg/dL (74-106)
--- NOTE | 2024-06-17 18:37 | CASEMGMT ---
Care Management Face to Face with patient for initial transition planning/care coordination assessment in the ED.? This remote mortgage underwriter introduced self and role at [facility]. Patient lying in bed asleep. Patient?s at bedside who was willing to participate in assessment and is able to answer all questions appropriately.? Care providers, pharmacy, and demographics verified. Admitting Diagnosis: right hip pain, altered mental status Other diagnosis history: hypertension, hyperthyroidism, diabetes PCP: Radha Orlando Specialists: PCP referred patient to a sample taker operator through [facility], but patient?s did not remember the doctor?s name. Preferred Pharmacy: [facility] [address]. Insurance: Medicare Part A and B (primary). [place] (secondary). Prescription Benefit:?yes Living Will/HPOA: none currently, but patient?s stated they would like to complete this while patient is admitted. LNOK: , Jaime. One son, Leandro, who lives in [place]. Registration added Leandro to patient?s contact. Living Arrangements: single story home; 4 small steps to enter from garage. Patient?s reports having a basement, but reports that he and patient never have a need to go downstairs. Transportation: patient can reportedly still drive, but patient?s reports that he drives her to appointments. ? DME: rollator x2, wheelchair, cane, grab bars, shower chair, walk-in shower, raised toilet, glucometer and testing strips. HHC: Dr. Orlando reportedly set up some HHC, but patient reportedly ?got tired of it.? Patient reportedly did outpatient PT, but patient?s could not remember where. SNF/Rehab: [facility] for 3 weeks after having bout with meningitis and removal of part of small intestine. Community Resources: patient?s reports they currently do not use any resources, but patient?s stated they would be open to receiving resources that could help ?older adults.? Patient goals: Patient?s reports that patient wishes to discharge home with HHC if needed. Patient?s reports that patient ?would take more kindly to? outpatient therapy due to previous HHC not being liked. ? Disposition Plan: admission to acute; RN CM/SW team to follow for discharge planning needs that may arise. Jazmyn Cummings, [employer] POWER PLANT OPERATOR, HEEL SCOURER
[2024-06-17 18:39] LABS: Ammonia < 10.0 umol/L (11-32)
--- NOTE | 2024-06-17 20:02 | PCM.HOSP.N ---
Hospitalist Note CT scan reports incompletely healed intertrochanteric fracture status post ORIF but given no previous films it is difficult to say if this represents coexisting new injury. Order placed to request imaging from office in [place]
[2024-06-17 20:32] VITALS: BP 154/83; PULSE 109; RESP 16; TEMP 37.2; O2SAT 98
[2024-06-17] MEDS: Magnesium Sulfate 2 GM in Dextrose 5%-Water (100mL Bag) 100 ML IV (20:57)
[2024-06-17] MEDS: Acetaminophen 500 MG Tablet 1000 MG PO (20:58)
[2024-06-17] MEDS: Senna/Docusate Sodium 1 Tablet 2 TABLET PO (20:58)
[2024-06-17] MEDS: Carvedilol 25 MG Tablet PO (20:59)
[2024-06-17] MEDS: Menthol/Lanolin/Calamine/Znox 113 GM Tube 1 APPLIC TOPICAL (21:26)
[2024-06-17 21:30] LABS: Bedside Glucose 356 mg/dL (74-106)
[2024-06-18] MEDS: 0.9% Normal Saline (1000mL) 1,000 ML 200 ML IV (00:17)
[2024-06-18] MEDS: oxyCODONE 5 MG Tablet 2.5 MG PO (01:21)
[2024-06-18] MEDS: MELATONIN 3 MG TABLET PO (01:21)
[2024-06-18 02:00] VITALS: BP 126/65; PULSE 95; RESP 16; TEMP 36.6; O2SAT 98
[2024-06-18 06:43] LABS: Bedside Glucose 408 mg/dL (74-106)
[2024-06-18] MEDS: Insulin Lispro 100 UNIT/ML INSULN.PEN SC ×4 (07:31→22:20)
[2024-06-18 07:33] LABS: Absolute Lymphocyte Count 0.81 X10^3/uL (0.83-4.51); Absolute Neutrophil Count 13.1 X10^3/uL (2.0-7.7); Basophil# 0.03 X10^3/uL; Basophil% 0.2 % (0-1); Hematocrit 41.4 % (37-47); Hemoglobin 12.8 g/dL (12.0-15.0); Lymphocyte # 0.81 X10^3/ul (0.83-4.51); Lymphocyte % 5.5 % (19-41); Mean Corp Hgb Conc 30.9 g/dL (32-36); Mean Corpuscular Hgb 26.1 pg (27.0-32.0); Mean Corpuscular Volume 84.5 fL (81-99); Monocyte# 0.77 X10^3/uL; Monocyte% 5.2 % (0-10); NRBC Flagged by Analyzer 0 % (0-5); Neutrophil # 13.14 X10^3/uL (2.7-7.7); Neutrophil % 88.6 % (47-70); Platelet Count 254 K/mm3 (150-450); RBC Distribution Width CV 16.4 % (11.6-14.6); RBC Distribution Width SD 51.1 fl (35.1-43.9); White Blood Count 14.8 K/mm3 (4.4-11.0)
[2024-06-18 07:36] LABS: Mucous, Urine 0 SEEN /hpf (<or=2+)
[2024-06-18 08:00] VITALS: BP 149/74; PULSE 88; RESP 23; TEMP 37.7; O2SAT 95
[2024-06-18 08:07] LABS: Color, Urine Yellow (Yellow); Glucose, Dipstick 1000 mg/dl (Normal); Ketone-Dipstick 15 mg/dl (Negative); Leukocyte Esterase-Dipstick 500 /ul (Negative); Nitrite-Dipstick Negative (Negative); Occult Blood-Urine 150 /ul (Negative); Protein-Dipstick 500 mg/dl (Negative); Urine Bilirubin Dipstick Negative (Negative); Urine Clarity Sl. Cloudy (Clear); Urine Urobilinogen Normal (Normal)
[2024-06-18 08:14] LABS: ALB/GLOB Ratio 0.9 RATIO (0.9-2.4); AST(SGOT) 35 U/L (15-37); Alanine Aminotransfer ALT/SGPT 23 U/L (13-56); Albumin, Serum 3.4 g/dL (3.2-5.0); Alkaline Phosphatase 128 U/L (45-117); Anion Gap 8 (5-15); BUN 29 mg/dL (7-18); BUN/Creat Ratio 23.2 RATIO (10-20); Calcium,Total 9.6 mg/dL (8.5-10.1); Chloride 108 mmol/L (98-107); Creatinine, Serum 1.25 mg/dL (0.55-1.02); EST Glomerular Filtration Rate 44 mL/min (>60); Est Glom Filt Rate - Afr Amer 53 mL/min (>60); Estimated Creatinine Clearance 36.68 ml/min; Globulin 3.6 g/dL (2.2-4.2); Glucose 355 mg/dL (74-106); Phosphorus 3.1 mg/dL (2.5-4.9); Potassium 3.5 mmol/L (3.5-5.1); Sodium Level 140 mmol/L (136-145)
[2024-06-18 08:30] VITALS: O2SAT 95
[2024-06-18] MEDS: Menthol/Lanolin/Calamine/Znox 113 GM Tube 1 APPLIC TOPICAL ×2 (08:36→22:19)
[2024-06-18 08:55] LABS: White Blood Cells 10-25 SEEN /hpf (0-5)
[2024-06-18 08:56] LABS: Bacteria 2+ /hpf (None Seen); Red Blood Cells-Urine 0-5 SEEN /hpf (0-5); Squamous Epithelial Cells - UA 0-5 SEEN /hpf (5-10)
--- NOTE | 2024-06-18 09:34 | PN.HOSP_ITS ---
Reason for Visit Reason for Visit: Diagnoses Dehydration (06/17/24) Subjective Subjective Patient is a 79-year-old lady who brought from home following fall. Patient was found to have leukocytosis as well as abnormal urinalysis and assessment of acute metabolic encephalopathy made admitted to regular nursing floor. Objective Data Objective Data Vital Signs: Vital Signs Temp Pulse Resp BP Pulse Ox O2 Del Method 99.8 F H 88 23 H 149/74 H 95 Room Air 06/18/24 08:00 06/18/24 08:00 06/18/24 08:00 06/18/24 08:00 06/18/24 08:30 06/18/24 08:30 Oxygen Delivery Method Room Air Weight: 61.643 kg Body Mass Index (BMI) 20.0 Intake & Output: Intake and Output for Last 24 Hours 06/16/24 06/17/24 06/18/24 23:59 23:59 23:59 Intake Total 3140.67 / 3140.67 1263.33 / 1263.33 Output Total 250 / 250 Balance 3140.67 / 3140.67 1013.33 / 1013.33 Lab / Micro Data 06/18/24 06:09 06/18/24 06:09 Labs: Laboratory Results - last 24 hr 06/17/24 05:55: Urine Color Yellow, Urine Clarity Sl. Cloudy, Urine pH 6.0, Ur Specific Bee 1.020, Urine Protein 500 H, Urine Glucose (UA) 1000 H, Urine Ketones 15 H, Urine Occult Blood 150 H, Urine Nitrite Negative, Urine Bilirubin Negative, Urine Urobilinogen Normal, Ur Leukocyte Esterase 500 H, Urine RBC 0-5 SEEN, Urine WBC 10-25 SEEN, Ur Squamous Epith Cells 0-5 SEEN, Urine Bacteria 2+, Urine Mucus 0 SEEN 06/17/24 12:24: WBC 13.4 H, RBC 5.79 H, Hgb 15.0, Hct 48.2 H, MCV 83.2, MCH 25.9 L, MCHC 31.1 L, RDW Std Deviation 48.9 H, RDW Coeff of Carmen 16.7 H, Plt Count 273, MPV 11.2, Immature Gran % (Auto) 0.500, Neut % (Auto) 90.6 H, Lymph % (Auto) 4.7 L, [place] % (Auto) 3.8, Eos % (Auto) 0.0, Baso % (Auto) 0.4, Absolute Neuts (auto) 12.1 H, Absolute Lymphs (auto) 0.63 L, Nucleated RBC % 0, Sodium 138, Potassium 3.5, Chloride 100, Carbon Dioxide 25.0, Anion Gap 14, BUN 27 H, C reatinine 1.30 H, Estim Creat Clear Calc 33.93, Est GFR (MDRD) Af Amer 51 L, Est GFR (MDRD) Non-Af 42 L, BUN/Creatinine Ratio 20.8 H, Glucose 465 H*, Calcium 11.4 H, Total Creatine Kinase 526 H, Troponin I High Sens 47 06/17/24 12:29: Magnesium 1.6, Total Bilirubin 0.90, Direct Bilirubin 0.31 H, AST 33, ALT 23, Alkaline Phosphatase 97, Total Protein 9.0 H, Albumin 4.6, G lobulin 4.4 H, Free T4 1.50 H, Free T3 pg/dL 3.8, PTH Intact 55.4 06/17/24 17:49: POC Glucose 335 H 06/17/24 18:05: Ammonia < 10.0 L 06/17/24 21:05: POC Glucose 356 H 06/18/24 06:09: WBC 14.8 H, RBC 4.90, Hgb 12.8, Hct 41.4, MCV 84.5, MCH 26.1 L, MCHC 30.9 L, RDW Std Deviation 51.1 H, RDW Coeff of Carmen 16.4 H, Plt Count 254, MPV 11.0, Immature Gran % (Auto) 0.500, Neut % (Auto) 88.6 H, Lymph % (Auto) 5.5 L, [place] % (Auto) 5.2, Eos % (Auto) 0.0, Baso % (Auto) 0.2, Absolute Neuts (auto) 13.1 H, Absolute Lymphs (auto) 0.81 L, Nucleated RBC % 0, Sodium 140, Potassium 3.5, Chloride 108 H, Carbon Dioxide 24.0, Anion Gap 8, BUN 29 H, Creatinine 1.25 H, Estim Creat Clear Calc 36.68, Est GFR (MDRD) Af Amer 53 L, Est GFR (MDRD) Non-Af 44 L, BUN/Creatinine Ratio 23.2 H, Glucose 355 H, Calcium 9.6, Phosphorus 3.1, Total Bilirubin 0.80, AST 35, ALT 23, Alkaline Phosphatase 128 H, Total Protein 7.0, Albumin 3.4, Globulin 3.6, Albumin/Globulin Ratio 0.9, TSH 0.160 L 06/18/24 06:23: POC Glucose 408 H Radiography Diagnostic Testing: Radiology Impression Brain CT 06/17/24 12:26 IMPRESSION: Chronic involutional changes of the brain. Electronically Signed: Jesus Linares MD at 13:35 EST , Cervical Spine CT 06/17/24 12:26 IMPRESSION: Multilevel degenerative changes, as described above. Large central disc herniation at the C5-C6 level causing central canal stenosis. Electronically Signed: Jesus Linares MD at 13:42 EST , Chest X-Ray 06/17/24 13:00 IMPRESSION: The lungs are clear. Electronically Signed: Jesus Linares MD at 13:37 EST , Hip/Pelvis X-Ray 06/17/24 13:00 IMPRESSION: Status post ORIF of a right intertrochanteric fracture. Nonhealed. Electronically Signed: Jesus Linares MD at 13:39 EST , Lower Extremity CT 06/17/24 16:20 IMPRESSION: Incompletely healed intertrochanteric fracture status post ORIF. Without benefit of old films for comparison purposes is difficult to say whether this represents coexisting new injury. Would recommend correlation with prior studies when available No other fractures identified. Electronically Signed: Willie Almeida MD at 17:13 EST Reading Location ID and State: [facility] / [place] Tel , Service support , Physical Exam Narrative GENERAL: Patient is sleepy but responds to sternal rub with moaning and groaning HEENT: Atraumatic; normocephalic EYES; Anicteric, Normal Conjunctiva NECK; supple, normal thyroid, RESPIRATORY: Diminished to auscultation CARDIOVASCULAR: Regular S1 S2, GI: soft, normoactive bowel sounds, : No Renal angle tenderness; EXTREMITIES: No edema, no clubbing, MUSCULOSKELETAL: no muscle wasting NEURO: Awake; no lateralizing signs. SKIN: No Rash PSYCH; Flat affect Assessment & Plan Assessment/Plan (1) Dehydration: PLAN: Plan Patient is a 79-year-old lady who brought from home following fall. Patient was found to have leukocytosis as well as abnormal urinalysis and assessment of acute metabolic encephalopathy made admitted to regular nursing floor. 1. Acute metabolic encephalopathy ? Secondary to acute cystitis as well as dehydration admitted to regular nursing floor for further management. Per patient's had a similar presentation in December was transferred to [facility] where patient underwent lumbar puncture and was treated for suspected meningitis. An order was placed for old records and consultation placed to ID 2. Acute cystitis ? Patient was started on ceftriaxone urine culture sent 3. Acute renal insufficiency ? Creatinine from 02/07/2024 was 1.02 creatinine on admission was 1.30 patient is on IV fluids with monitoring of electrolyte 4. Right hip pain ? Patient has history of fall with hip fracture with subsequent right ORIF 2 years prior. Imaging studies obtained did show incompletely healed intertrochanteric fracture status post ORIF. Will continue with pain management with PT OT consulted for eval and treatment 5. Acute hypertensive urgency ? Blood pressure on admission was 193/96; Patient is on carvedilol diltiazem and lisinopril has not been able to take the medication given her encephalopathy was placed on hydralazine as needed patient blood pressure has since stabilized 6. Hypothyroidism ? Patient is on methimazole will resume once patient level of sensorium improves 7. Diabetes mellitus type 2 ? Patient presented with hyperglycemia patient is on metformin and glipizide held, placed on long-acting insulin in addition to Accu-Cheks before meals and at bedtime with sliding scale coverage 8. GERD ? On PPI 9. Depression with anxiety ? Plan is to resume home meds once patient level of sensorium improves 10. Dyslipidemia ? Patient is on atorvastatin 11. DVT prophylaxis Subcu heparin Time spent in the patient's overall evaluation,decision-making process, review of diagnostic data, adjustment of management, discussion with other providers, nursing nursing and ancillary staff involved in patient's care documentation, 52 Minutes Charges/Coding Visit Charges Inpatient E&M: 18993 Subs Hosp L3
[2024-06-18 10:36] LABS: Hemoglobin A1c 8.5 % (3.8-5.6)
[2024-06-18] MEDS: Ceftriaxone 1 GM/50 ML BAG IV (11:09)
[2024-06-18] MEDS: 0.9% Saline Lock 10 ML Syringe IV (11:14)
[2024-06-18 11:37] LABS: Bedside Glucose 234 mg/dL (74-106)
[2024-06-18 13:15] LABS: Vitamin D,25 Hydroxy 83.4 ng/mL
[2024-06-18 14:24] VITALS: BP 134/58; PULSE 93; RESP 20; TEMP 36.9; O2SAT 94
--- NOTE | 2024-06-18 15:18 | CON.PCM.ID_ITS ---
Assessment & Plan Assessment/Plan (1) Fall: (2) Acute metabolic encephalopathy: PLAN: H/o meningitis 12/2023 requiring transfer to [facility]. Records requested, but CSF there on 01/11/24 showed wbc 5, neg pcr panel, so not clear how true of an infection that was (she was day 3 of broad spectrum abx at that point). Will order Ucx, cont ceftriaxone. If does not improve, will need to consider brain MRI and LP. Will follow, thank you HPI Consult Data Date of Consult: 06/18/24 HPI Narrative Reason for Consultation: encephalopathy HPI Narrative: OLY REYES, is a 79 F with h/o T2DM, admitted end of December with meningitis requiring transfer to [facility] for LP and treatment. Has been doing ok since then, but noticed some trouble with speech for a day or two, then 06/17 found her down at home after about an hour, unresponsive. No recent fever, headache, neck pain, sick contacts, or travel. Admitted here, started on ceftriaxone. Pt unable to provide ROS due to mental status. [facility] Medical History Hypothyroidism Diabetes GERD (gastroesophageal reflux disease) Non-smoker Hypertension Home Medications ?Medication ?Instructions ?Recorded ?Last Taken ?Type atorvastatin 10 mg tablet 10 mg PO DAILY CHOLESTEROL 01/08/24 Unknown History carvedilol 25 mg tablet 25 mg PO BID HEART 01/08/24 Unknown History diltiazem HCl 120 mg 120 mg PO DAILY BLOOD PRESSURE 01/08/24 Unknown History capsule,extended release 24 hr duloxetine 30 mg capsule,delayed 30 mg PO DAILY DEPRESSION 01/08/24 Unknown History release glipizide 2.5 mg tablet, extended 2.5 mg PO DAILY BLOOD SUGAR 01/08/24 Unknown History release 24 hr lisinopril 20 mg tablet 20 mg PO DAILY BLOOD PRESSURE 01/08/24 Unknown History metformin 1,000 mg tablet 1,000 mg PO BID BLOOD SUGAR 01/08/24 Unknown History methimazole 5 mg tablet 5 mg PO UD THYROID 01/08/24 Unknown History omeprazole 20 mg capsule,delayed 20 mg PO DAILY GERD 01/08/24 Unknown History release Allergy/AdvReac Type Severity Reaction Status Date / Time Sulfa (Sulfonamide Allergy Intermediate NEEDS Verified 01/08/24 07:24 Antibiotics) FOLLOW-UP Surgical History (Updated 06/17/24 @ 15:36 by Wendy Lynn) History of appendectomy History of cholecystectomy Social History Smoking Status: Never smoker Physical Exam Const no apparent distress Constitutional Narrative: stirs briefly to voice/light stim but does not open eyes or speak. General Appearance: lethargic HEENT normocephalic and head/scalp atraumatic Eyes PERRL Neck supple and No nodes Resp normal air movement and clear to auscultation bilaterally Cardio regular rate, regular rhythm and no murmurs GI soft to palpation, non-tender and non-distended Extremity General Extremity: Negative for edema Skin no rashes or lesions noted Neuro Neuro Narrative: not following commands Lab / Micro Data Attestation: I reviewed the patient's lab results. 06/18/24 06:09 06/18/24 06:09 Labs: Laboratory Results - last 24 hr 06/17/24 05:55: Urine Color Yellow, Urine Clarity Sl. Cloudy, Urine pH 6.0, Ur Specific [place] 1.020, Urine Protein 500 H, Urine Glucose (UA) 1000 H, Urine Ketones 15 H, Urine Occult Blood 150 H, Urine Nitrite Negative, Urine Bilirubin Negative, Urine Urobilinogen Normal, Ur Leukocyte Esterase 500 H, Urine RBC 0-5 SEEN, Urine WBC 10-25 SEEN, Ur Squamous Epith Cells 0-5 SEEN, Urine Bacteria 2+, Urine Mucus 0 SEEN 06/17/24 12:29: Magnesium 1.6, Total Bilirubin 0.90, Direct Bilirubin 0.31 H, AST 33, ALT 23, Alkaline Phosphatase 97, Total Protein 9.0 H, Albumin 4.6, G lobulin 4.4 H, Free T4 1.50 H, Free T3 pg/dL 3.8, PTH Intact 55.4 06/17/24 17:49: POC Glucose 335 H 06/17/24 18:05: Ammonia < 10.0 L 06/17/24 21:05: POC Glucose 356 H 06/18/24 06:09: WBC 14.8 H, RBC 4.90, Hgb 12.8, Hct 41.4, MCV 84.5, MCH 26.1 L, MCHC 30.9 L, RDW Std Deviation 51.1 H, RDW Coeff of Carmen 16.4 H, Plt Count 254, MPV 11.0, Immature Gran % (Auto) 0.500, Neut % (Auto) 88.6 H, Lymph % (Auto) 5.5 L, [place] % (Auto) 5.2, Eos % (Auto) 0.0, Baso % (Auto) 0.2, Absolute Neuts (auto) 13.1 H, Absolute Lymphs (auto) 0.81 L, Nucleated RBC % 0, Sodium 140, Potassium 3.5, Chloride 108 H, Carbon Dioxide 24.0, Anion Gap 8, BUN 29 H, Creatinine 1.25 H, Estim Creat Clear Calc 36.68, Est GFR (MDRD) Af Amer 53 L, Est GFR (MDRD) Non-Af 44 L, BUN/Creatinine Ratio 23.2 H, Glucose 355 H, Hemoglobin A1c 8.5 H, Calcium 9.6, Phosphorus 3.1, Total Bilirubin 0.80, AST 35, ALT 23, Alkaline Phosphatase 128 H, Total Protein 7.0, Albumin 3.4, Globulin 3.6, Albumin/Globulin Ratio 0.9, Vitamin D 25-Hydroxy 83.4, TSH 0.160 L 06/18/24 06:23: POC Glucose 408 H 06/18/24 11:16: POC Glucose 234 H Imaging Radiology Impression Lower Extremity CT 06/17/24 16:20 IMPRESSION: Incompletely healed intertrochanteric fracture status post ORIF. Without benefit of old films for comparison purposes is difficult to say whether this represents coexisting new injury. Would recommend correlation with prior studies when available No other fractures identified. Electronically Signed: Willie Almeida MD at 17:13 EST ,
--- NOTE | 2024-06-18 18:04 | NURSING ---
Urine Culture was ordered today 06/18/24, pt had UA collected yesterday 06/17/24. This RN called spoke with Ad from lab and asked if culture could be run off the UA. Ad said it could and she would do that.
[2024-06-18 18:41] LABS: Bedside Glucose 309 mg/dL (74-106)
[2024-06-18 22:15] VITALS: BP 135/66; PULSE 91; RESP 18; TEMP 37.2; O2SAT 97
[2024-06-18] MEDS: Carvedilol 25 MG Tablet PO (22:20)
[2024-06-18] MEDS: Senna/Docusate Sodium 1 Tablet 2 TABLET PO (22:22)
[2024-06-18] MEDS: Acetaminophen 500 MG Tablet 1000 MG PO (22:22)
[2024-06-18] MEDS: Atorvastatin Calcium 10 MG Tablet PO (22:22)
[2024-06-18 23:39] LABS: Bedside Glucose 245 mg/dL (74-106)
[2024-06-19 04:28] VITALS: BP 143/76; PULSE 92; RESP 16; TEMP 37.3; O2SAT 100
[2024-06-19] MEDS: Acetaminophen 500 MG Tablet 1000 MG PO ×3 (05:34→21:25)
[2024-06-19] MEDS: Insulin Lispro 100 UNIT/ML INSULN.PEN SC ×4 (05:40→21:40)
[2024-06-19 06:02] LABS: Bedside Glucose 255 mg/dL (74-106)
[2024-06-19 08:00] VITALS: BP 145/70; PULSE 86; RESP 18; TEMP 36.7; O2SAT 95
--- NOTE | 2024-06-19 08:45 | PN.HOSP_ITS ---
Reason for Visit Reason for Visit: Diagnoses Dehydration (06/17/24) Metabolic encephalopathy (06/17/24) Unspecified fall, initial encounter (06/17/24) Subjective Subjective Patient level of sensorium much improved. Patient is awake and interactive. Patient kidney function however did worsen necessitating patient being started on IV fluid. Patient was also seen in consultation by Dr. Banuelos with ID the day prior. Urine culture still pending Objective Data Objective Data Vital Signs: Vital Signs Temp Pulse Resp BP Pulse Ox O2 Del Method 99.1 F 92 16 143/76 H 100 Room Air 06/19/24 04:28 06/19/24 04:28 06/19/24 04:28 06/19/24 04:28 06/19/24 04:28 06/19/24 04:40 Oxygen Delivery Method Room Air Weight: 61.6 kg Body Mass Index (BMI) 20.0 Intake & Output: Intake and Output for Last 24 Hours 06/17/24 06/18/24 06/19/24 23:59 23:59 23:59 Intake Total 3140.67 / 3140.67 1653.33 / 1653.33 325 / 325 Output Total 950 / 950 350 / 350 Balance 3140.67 / 3140.67 703.33 / 703.33 -25 / -25 Lab / Micro Data 06/19/24 09:02 06/19/24 09:02 Labs: Laboratory Results - last 24 hr 06/17/24 05:55: Urine RBC 0-5 SEEN, Urine WBC 10-25 SEEN, Ur Squamous Epith Cells 0-5 SEEN, Urine Bacteria 2+, Urine Mucus 0 SEEN 06/18/24 06:09: Hemoglobin A1c 8.5 H, Vitamin D 25-Hydroxy 83.4 06/18/24 11:16: POC Glucose 234 H 06/18/24 18:23: POC Glucose 309 H 06/18/24 22:10: POC Glucose 245 H 06/19/24 05:39: POC Glucose 255 H Physical Exam Narrative GENERAL: Patient is sleepy but responds to sternal rub with moaning and groaning HEENT: Atraumatic; normocephalic EYES; Anicteric, Normal Conjunctiva NECK; supple, normal thyroid, RESPIRATORY: Diminished to auscultation CARDIOVASCULAR: Regular S1 S2, GI: soft, normoactive bowel sounds, : No Renal angle tenderness; EXTREMITIES: No edema, no clubbing, MUSCULOSKELETAL: no muscle wasting NEURO: Awake; no lateralizing signs. SKIN: No Rash PSYCH; Flat affect Assessment & Plan Assessment/Plan (1) Dehydration: PLAN: Plan Patient is a 79-year-old lady who brought from home following fall. Patient was found to have leukocytosis as well as abnormal urinalysis and assessment of acute metabolic encephalopathy made admitted to regular nursing floor. 1. Acute metabolic encephalopathy ? Secondary to acute cystitis as well as dehydration admitted to regular nursing floor for further management. Per patient's had a similar presentation in December was transferred to [facility] where patient underwent lumbar puncture and was treated for suspected meningitis. An order was placed for old records and consultation placed to ID ? 06/19/2024; patient kidney function did improve 2. Acute cystitis ? Patient was started on ceftriaxone urine culture sent ? 06/19/2024; urine cultures pending 3. Acute kidney injury ? Creatinine from 02/07/2024 was 1.02 creatinine on admission was 1.30 patient is on IV fluids with monitoring of electrolyte Patient kidney function did worsen necessitating patient being started on IV fluid. P 4. Right hip pain ? Patient has history of fall with hip fracture with subsequent right ORIF 2 years prior. Imaging studies obtained did show incompletely healed intertrochanteric fracture status post ORIF. Will continue with pain management with PT OT consulted for eval and treatment 5. Acute hypertensive urgency ? Blood pressure on admission was 193/96; Patient is on carvedilol diltiazem and lisinopril has not been able to take the medication given her encephalopathy was placed on hydralazine as needed patient blood pressure has since stabilized 6. Hypothyroidism ? Patient is on methimazole will resume once patient level of sensorium improves 7. Diabetes mellitus type 2 ? Patient presented with hyperglycemia patient is on metformin and glipizide held, placed on long-acting insulin in addition to Accu-Cheks before meals and at bedtime with sliding scale coverage 8. GERD ? On PPI 9. Depression with anxiety ? Plan is to resume home meds once patient level of sensorium improves 10. Dyslipidemia ? Patient is on atorvastatin 11. DVT prophylaxis Subcu heparin Time spent in the patient's overall evaluation,decision-making process, review of diagnostic data, adjustment of management, discussion with other providers, nursing nursing and ancillary staff involved in patient's care documentation, 38 Minutes Charges/Coding Visit Charges Inpatient E&M: 73358 Subs Hosp L2
[2024-06-19 09:17] LABS: Basophil# 0.04 X10^3/uL; Basophil% 0.4 % (0-1); Eosinophil# 0.03 X10^3/uL; Eosinophils% 0.3 % (0-5); Hematocrit 37.9 % (37-47); Hemoglobin 11.9 g/dL (12.0-15.0); Mean Corp Hgb Conc 31.4 g/dL (32-36); Mean Corpuscular Hgb 26.6 pg (27.0-32.0); Mean Corpuscular Volume 84.8 fL (81-99); Mean Platelet Vol. 10.7 fl (6.2-12.0); Monocyte# 0.77 X10^3/uL; Monocyte% 8.2 % (0-10); NRBC Flagged by Analyzer 0 % (0-5); Neutrophil # 7.02 X10^3/uL (2.7-7.7); Neutrophil % 74.7 % (47-70); Platelet Count 217 K/mm3 (150-450); RBC Distribution Width CV 16.7 % (11.6-14.6); RBC Distribution Width SD 52.4 fl (35.1-43.9); Red Blood Count 4.47 M/mm3 (4.2-5.4); White Blood Count 9.4 K/mm3 (4.4-11.0)
[2024-06-19 09:36] LABS: Anion Gap 10 (5-15); BUN 43 mg/dL (7-18); BUN/Creat Ratio 27.9 RATIO (10-20); Calcium,Total 9.6 mg/dL (8.5-10.1); Chloride 108 mmol/L (98-107); Creatinine, Serum 1.54 mg/dL (0.55-1.02); EST Glomerular Filtration Rate 35 mL/min (>60); Est Glom Filt Rate - Afr Amer 42 mL/min (>60); Estimated Creatinine Clearance 29.75 ml/min; Glucose 227 mg/dL (74-106); Phosphorus 2.4 mg/dL (2.5-4.9); Potassium 3.3 mmol/L (3.5-5.1); Sodium Level 139 mmol/L (136-145)
[2024-06-19] MEDS: dilTIAZem CD 120 MG Capsule PO (09:41)
[2024-06-19] MEDS: Carvedilol 25 MG Tablet PO ×2 (09:41→21:26)
[2024-06-19] MEDS: Menthol/Lanolin/Calamine/Znox 113 GM Tube 1 APPLIC TOPICAL ×2 (09:41→21:40)
[2024-06-19] MEDS: Senna/Docusate Sodium 1 Tablet 2 TABLET PO ×2 (09:42→21:26)
[2024-06-19] MEDS: Pantoprazole Sodium 20 MG Tablet PO (09:42)
[2024-06-19] MEDS: DULoxetine Hcl 30 MG Capsule PO (09:42)
[2024-06-19] MEDS: 0.9% Saline Lock 10 ML Syringe IV (09:43)
[2024-06-19] MEDS: Ceftriaxone 1 GM/50 ML BAG IV (09:49)
--- NOTE | 2024-06-19 10:45 | PCM.PN.ID ---
Physical Exam Narrative Feeling better, no fever, no abd pain, no dysuria. No headache or neck pain. Const alert and no apparent distress Constitutional Narrative: oriented x2 Neck supple Resp normal air movement and clear to auscultation bilaterally Cardio regular rate and regular rhythm GI soft to palpation, non-tender and non-distended Skin no rashes or lesions noted ID ID: Route of nutrition/ use of supplements: [] Nutritional Intake: [] IV Site: [] Leonard Catheter: [] Assessment & Plan Assessment/Plan (1) Fall: (2) Acute metabolic encephalopathy: PLAN: H/o meningitis 12/2023 requiring transfer to [facility]. Records requested, but CSF there on 01/11/24 showed wbc 5, neg pcr panel, so not clear how true of an infection that was (she was day 3 of broad spectrum abx at that point). Pending Ucx, cont ceftriaxone. Mental status dramatically better this AM. Will follow
[2024-06-19] MEDS: 0.9% Normal Saline (1000mL) 1,000 ML 125 ML IV ×2 (11:17→18:10)
[2024-06-19 11:41] LABS: Bedside Glucose 281 mg/dL (74-106)
--- NOTE | 2024-06-19 15:58 | CASEMGMT ---
Social Work SW received referral from therapy that pt will benefit from SNF at time of discharge. SW met with pt and pt's spouse and discussed discharge plan. Pt and are agreeable that pt cannot return home at this time and will need short term rehab prior to return home. A list of SNF providers including quality and resource use data and consistent with the patient?s preferred geographic region, medical needs, and insurance network were provided from the [employer] Guide. Pt's spouse states preferred provider is [facility]. Referral made to TCU at this time. SW will await determination of acceptance. While in ED, pt's spouse requested resources for older adults. SW provided pt's spouse resources from [facility]. MARILU Chen
[2024-06-19 16:56] VITALS: BP 128/59; PULSE 72; RESP 18; TEMP 36.7; O2SAT 99
[2024-06-19 17:12] LABS: Bedside Glucose 233 mg/dL (74-106)
[2024-06-19 21:18] VITALS: BP 155/73; PULSE 71; RESP 15; TEMP 36.5; O2SAT 100
[2024-06-19] MEDS: Atorvastatin Calcium 10 MG Tablet PO (21:26)
[2024-06-19 22:12] LABS: Bedside Glucose 241 mg/dL (74-106)
[2024-06-20 02:55] VITALS: BP 138/61; PULSE 72; RESP 15; TEMP 36.4; O2SAT 98
[2024-06-20 06:30] LABS: Absolute Neutrophil Count 4.1 X10^3/uL (2.0-7.7); Basophil# 0.04 X10^3/uL; Basophil% 0.6 % (0-1); Eosinophils% 3.1 % (0-5); Hematocrit 39.3 % (37-47); Hemoglobin 12.1 g/dL (12.0-15.0); Lymphocyte % 23.1 % (19-41); Mean Corp Hgb Conc 30.8 g/dL (32-36); Mean Corpuscular Hgb 26.2 pg (27.0-32.0); Mean Corpuscular Volume 85.2 fL (81-99); Mean Platelet Vol. 10.9 fl (6.2-12.0); Monocyte# 0.58 X10^3/uL; NRBC Flagged by Analyzer 0 % (0-5); Neutrophil # 4.13 X10^3/uL (2.7-7.7); Neutrophil % 63.7 % (47-70); Platelet Count 196 K/mm3 (150-450); RBC Distribution Width CV 16.7 % (11.6-14.6); RBC Distribution Width SD 51.9 fl (35.1-43.9); Red Blood Count 4.61 M/mm3 (4.2-5.4); White Blood Count 6.5 K/mm3 (4.4-11.0)
[2024-06-20] MEDS: Insulin Lispro 100 UNIT/ML INSULN.PEN SC ×3 (06:50→16:57)
[2024-06-20] MEDS: 0.9% Normal Saline (1000mL) 1,000 ML 125 ML IV (06:51)
[2024-06-20] MEDS: Acetaminophen 500 MG Tablet 1000 MG PO ×2 (06:52→13:56)
[2024-06-20 06:54] LABS: Anion Gap 8 (5-15); BUN 46 mg/dL (7-18); Calcium,Total 9.4 mg/dL (8.5-10.1); Chloride 107 mmol/L (98-107); Creatinine, Serum 1.21 mg/dL (0.55-1.02); EST Glomerular Filtration Rate 46 mL/min (>60); Est Glom Filt Rate - Afr Amer 56 mL/min (>60); Estimated Creatinine Clearance 37.86 ml/min; Glucose 228 mg/dL (74-106); Potassium 3.1 mmol/L (3.5-5.1); Sodium Level 138 mmol/L (136-145)
[2024-06-20 07:14] LABS: Bedside Glucose 230 mg/dL (74-106)
--- NOTE | 2024-06-20 07:29 | PCM.PN.HOSP ---
Reason for Visit Reason for Visit: Diagnoses Dehydration (06/17/24) Metabolic encephalopathy (06/17/24) Unspecified fall, initial encounter (06/17/24) Subjective Subjective Patient urine cultures so far positive for gram-negative tigist lactose geriatric social worker final identification and sensitivity pending Objective Data Objective Data Vital Signs: Vital Signs Temp Pulse Resp BP Pulse Ox O2 Del Method 97.6 F L 72 15 138/61 H 98 Room Air 06/20/24 02:55 06/20/24 02:55 06/20/24 02:55 06/20/24 02:55 06/20/24 02:55 06/20/24 04:00 Oxygen Delivery Method Room Air Weight: 61.6 kg Body Mass Index (BMI) 20.0 Intake & Output: Intake and Output for Last 24 Hours 06/18/24 06/19/24 06/20/24 23:59 23:59 23:59 Intake Total 1653.33 / 1653.33 1235.42 / 1235.42 1000 / 1000 Output Total 950 / 950 350 / 550 200 / 200 Balance 703.33 / 703.33 885.42 / 685.42 800 / 800 Lab / Micro Data 06/20/24 05:59 06/20/24 05:59 Labs: Laboratory Results - last 24 hr 06/19/24 09:02: WBC 9.4, RBC 4.47, Hgb 11.9 L, Hct 37.9, MCV 84.8, MCH 26.6 L, MCHC 31.4 L, RDW Std Deviation 52.4 H, RDW Coeff of Carmen 16.7 H, Plt Count 217, MPV 10.7, Immature Gran % (Auto) 0.400, Neut % (Auto) 74.7 H, Lymph % (Auto) 16.0 L, [place] % (Auto) 8.2, Eos % (Auto) 0.3, Baso % (Auto) 0.4, Absolute Neuts (auto) 7.0, Absolute Lymphs (auto) 1.50, Nucleated RBC % 0, Sodium 139, Potassium 3.3 L, Chloride 108 H, Carbon Dioxide 22.0, Anion Gap 10, BUN 43 H, Creatinine 1.54 H, Estim Creat Clear Calc 29.75, Est GFR (MDRD) Af Amer 42 L, Est GFR (MDRD) Non-Af 35 L, BUN/Creatinine Ratio 27.9 H, Glucose 227 H, Calcium 9.6, Phosphorus 2.4 L, Magnesium 2.0 06/19/24 11:15: POC Glucose 281 H 06/19/24 16:41: POC Glucose 233 H 06/19/24 21:38: POC Glucose 241 H 06/20/24 05:59: WBC 6.5, RBC 4.61, Hgb 12.1, Hct 39.3, MCV 85.2, MCH 26.2 L, MCHC 30.8 L, RDW Std Deviation 51.9 H, RDW Coeff of Carmen 16.7 H, Plt Count 196, MPV 10.9, Immature Gran % (Auto) 0.500, Neut % (Auto) 63.7, Lymph % (Auto) 23.1, [place] % (Auto) 9.0, Eos % (Auto) 3.1, Baso % (Auto) 0.6, Absolute Neuts (auto) 4.1, Absolute Lymphs (auto) 1.50, Nucleated RBC % 0, Sodium 138, Potassium 3.1 L, Chloride 107, Carbon Dioxide 24.0, Anion Gap 8, BUN 46 H, Creatinine 1.21 H, Estim Creat Clear Calc 37.86, Est GFR (MDRD) Af Amer 56 L, Est GFR (MDRD) Non-Af 46 L, BUN/Creatinine Ratio 38.0 H, Glucose 228 H, Calcium 9.4 06/20/24 06:48: POC Glucose 230 H Micro: Microbiology 06/18/24 05:55 Urine, Clean Catch Urine Culture - Preliminary GNR lactose geriatric social worker Physical Exam Narrative GENERAL: Cooperative HEENT: Atraumatic; normocephalic EYES; Anicteric, Normal Conjunctiva NECK; supple, normal thyroid, RESPIRATORY: Diminished to auscultation CARDIOVASCULAR: Regular S1 S2, GI: soft, normoactive bowel sounds, : No Renal angle tenderness; EXTREMITIES: No edema, no clubbing, MUSCULOSKELETAL: no muscle wasting NEURO: Awake; no lateralizing signs. SKIN: No Rash PSYCH; Flat affect Assessment & Plan Assessment/Plan (1) Dehydration: PLAN: Plan Patient is a 79-year-old lady who brought from home following fall. Patient was found to have leukocytosis as well as abnormal urinalysis and assessment of acute metabolic encephalopathy made admitted to regular nursing floor. 1. Acute metabolic encephalopathy ? Secondary to acute cystitis as well as dehydration admitted to regular nursing floor for further management. Per patient's had a similar presentation in December was transferred to [facility] where patient underwent lumbar puncture and was treated for suspected meningitis. An order was placed for old records and consultation placed to ID ? 06/19/2024; patient kidney function did improve ? 06/20/2024; patient back to baseline 2. Acute cystitis with Klebsiella pneumonia ? Patient was started on ceftriaxone urine culture sent ? 06/19/2024; urine cultures pending ? 06/20/2024;Patient urine cultures positive Klebsiella pneumoniae sp pneum. Patient has been treated appropriate 3. Acute kidney injury ? Creatinine from 02/07/2024 was 1.02 creatinine on admission was 1.30 patient is on IV fluids with monitoring of electrolyte Patient kidney function did worsen necessitating patient being started on IV fluid. P 4. Right hip pain ? Patient has history of fall with hip fracture with subsequent right ORIF 2 years prior. Imaging studies obtained did show incompletely healed intertrochanteric fracture status post ORIF. Will continue with pain management with PT OT consulted for eval and treatment 5. Acute hypertensive urgency ? Blood pressure on admission was 193/96; Patient is on carvedilol diltiazem and lisinopril has not been able to take the medication given her encephalopathy was placed on hydralazine as needed patient blood pressure has since stabilized 6. Hypothyroidism ? Patient is on methimazole will resume once patient level of sensorium improves 7. Diabetes mellitus type 2 ? Patient presented with hyperglycemia patient is on metformin and glipizide held, placed on long-acting insulin in addition to Accu-Cheks before meals and at bedtime with sliding scale coverage 8. GERD ? On PPI 9. Depression with anxiety ? Plan is to resume home meds once patient level of sensorium improves 10. Dyslipidemia ? Patient is on atorvastatin 11. DVT prophylaxis Subcu heparin 12. Hypokalemia Corrected for protocol 13. Physical deconditioning ? Requested for PT OT eval and social services designee to assist with discharge planning Time spent in the patient's overall evaluation,decision-making process, review of diagnostic data, adjustment of management, discussion with other providers, nursing nursing and ancillary staff involved in patient's care documentation, 38 Minutes Charges/Coding Visit Charges Inpatient E&M: 94637 Subs Hosp L2
[2024-06-20] MEDS: Ceftriaxone 1 GM/50 ML BAG IV (08:33)
[2024-06-20] MEDS: Carvedilol 25 MG Tablet PO (08:34)
[2024-06-20] MEDS: Senna/Docusate Sodium 1 Tablet 2 TABLET PO (08:34)
[2024-06-20] MEDS: Menthol/Lanolin/Calamine/Znox 113 GM Tube 1 APPLIC TOPICAL (08:34)
[2024-06-20] MEDS: Pantoprazole Sodium 20 MG Tablet PO (08:35)
[2024-06-20] MEDS: DULoxetine Hcl 30 MG Capsule PO (08:35)
[2024-06-20] MEDS: dilTIAZem CD 120 MG Capsule PO (08:35)
[2024-06-20] MEDS: Methimazole 5 MG Tablet 2.5 MG PO (08:36)
[2024-06-20 09:00] VITALS: BP 127/63; PULSE 64; RESP 16; TEMP 36.6; O2SAT 100
--- NOTE | 2024-06-20 09:50 | CASEMGMT ---
Social Work TCU is able to accept pt. Physician notified and pt is ready for dc today. SW met with pt and her spouse and updated. they are agreeable to discharge to TCU. Discharge orders faxed to TCU and RN updated. MARILU Chen
--- NOTE | 2024-06-20 10:27 | PCM.DC.SUM ---
Providers Date of Admission: 06/17/24 Date of Discharge: 06/20/24 Primary Care Physician: Dr. Radha Orlando, DO Consultations 06/18/24 09:41 Consult: Infectious Disease Routine Consulting Provider: Martin Banuelos Reason for Consult: cystitis, recent meningitis EMERGENT Consult: No MD Notified: Yes Date Notified: 06/18/24 Time Notified: 10:21 Method of Notification: Text Reason For Visit: R HIP PAIN, AMS Diagnosis Discharge Diagnosis (1) Dehydration: Status: Acute Code(s): E86.0 - Dehydration Plan Patient is a 79-year-old lady who brought from home following fall. Patient was found to have leukocytosis as well as abnormal urinalysis and assessment of acute metabolic encephalopathy made admitted to regular nursing floor. 1. Acute metabolic encephalopathy ? Secondary to acute cystitis as well as dehydration admitted to regular nursing floor for further management. Per patient's had a similar presentation in December was transferred to [facility] where patient underwent lumbar puncture and was treated for suspected meningitis. An order was placed for old records and consultation placed to ID ? 06/19/2024; patient kidney function did improve ? 06/20/2024; patient back to baseline 2. Acute cystitis with Klebsiella pneumonia ? Patient was started on ceftriaxone urine culture sent ? 06/19/2024; urine cultures pending ? 06/20/2024;Patient urine cultures positive Klebsiella pneumoniae sp pneum. Patient has been treated appropriate 3. Acute kidney injury ? Creatinine from 02/07/2024 was 1.02 creatinine on admission was 1.30 patient is on IV fluids with monitoring of electrolyte Patient kidney function did worsen necessitating patient being started on IV fluid. P 4. Right hip pain ? Patient has history of fall with hip fracture with subsequent right ORIF 2 years prior. Imaging studies obtained did show incompletely healed intertrochanteric fracture status post ORIF. Will continue with pain management with PT OT consulted for eval and treatment 5. Acute hypertensive urgency ? Blood pressure on admission was 193/96; Patient is on carvedilol diltiazem and lisinopril has not been able to take the medication given her encephalopathy was placed on hydralazine as needed patient blood pressure has since stabilized 6. Hypothyroidism ? Patient is on methimazole will resume once patient level of sensorium improves 7. Diabetes mellitus type 2 ? Patient presented with hyperglycemia patient is on metformin and glipizide held, placed on long-acting insulin in addition to Accu-Cheks before meals and at bedtime with sliding scale coverage 8. GERD ? On PPI 9. Depression with anxiety ? Plan is to resume home meds once patient level of sensorium improves 10. Dyslipidemia ? Patient is on atorvastatin 11. DVT prophylaxis Subcu heparin 12. Hypokalemia Corrected for protocol 13. Physical deconditioning ? Requested for PT OT eval and licensed master social worker to assist with discharge planning Time spent in the patient's overall evaluation,decision-making process, review of diagnostic data, adjustment of management, discussion with other providers, nursing nursing and ancillary staff involved in patient's care documentation, 38 Minutes Medications at Discharge Home Medications atorvastatin 10 mg tablet 10 mg PO DAILY CHOLESTEROL 01/08/24 carvedilol 25 mg tablet 25 mg PO BID HEART 01/08/24 diltiazem HCl 120 mg capsule,extended release 24 hr 120 mg PO DAILY BLOOD PRESSURE 01/08/24 duloxetine 30 mg capsule,delayed release 30 mg PO DAILY DEPRESSION 01/08/24 glipizide 2.5 mg tablet, extended release 24 hr 2.5 mg PO DAILY BLOOD SUGAR 01/08/24 metformin 1,000 mg tablet 1,000 mg PO BID BLOOD SUGAR 01/08/24 methimazole 5 mg tablet 5 mg PO UD THYROID 01/08/24 omeprazole 20 mg capsule,delayed release 20 mg PO DAILY GERD 01/08/24 acetaminophen 500 mg tablet 1,000 mg (2 x 500 mg) PO Q8 #0 tabs 06/20/24 cephalexin 250 mg capsule 250 mg PO Q8 #0 caps 06/20/24 insulin lispro 100 unit/mL subcutaneous pen (Humalog KwikPen (U-100) Insulin) See Protocol subcut ACHS #0 mL 06/20/24 melatonin 3 mg tablet 3 mg PO QHS PRN PRN Insomnia #0 tabs 06/20/24 oxycodone 5 mg tablet 2.5 mg (1/2 x 5 mg) PO Q4H PRN PRN Pain Score 4-10 #0 tabs 06/20/24 potassium chloride 20 mEq tablet,extended release(part/cryst) 20 meq PO BIDCM #0 tabs 06/20/24 sennosides 8.6 mg-docusate sodium 50 mg tablet (Stimulant Laxative Plus) 2 tab PO BID #0 tabs 06/20/24 Physical Exam Narrative GENERAL: Cooperative HEENT: Atraumatic; normocephalic EYES; Anicteric, Normal Conjunctiva NECK; supple, normal thyroid, RESPIRATORY: Diminished to auscultation CARDIOVASCULAR: Regular S1 S2, GI: soft, normoactive bowel sounds, : No Renal angle tenderness; EXTREMITIES: No edema, no clubbing, MUSCULOSKELETAL: no muscle wasting NEURO: Awake; no lateralizing signs. SKIN: No Rash PSYCH; Flat affect Weight / BMI Weight Weight: 61.6 kg Body Mass Index (BMI) 20.0 ABG / Lab / Microbiology Data 06/20/24 05:59 06/20/24 05:59 Laboratory: Laboratory Results - last 24 hr 06/19/24 11:15: POC Glucose 281 H 06/19/24 16:41: POC Glucose 233 H 06/19/24 21:38: POC Glucose 241 H 06/20/24 05:59: WBC 6.5, RBC 4.61, Hgb 12.1, Hct 39.3, MCV 85.2, MCH 26.2 L, MCHC 30.8 L, RDW Std Deviation 51.9 H, RDW Coeff of Carmen 16.7 H, Plt Count 196, MPV 10.9, Immature Gran % (Auto) 0.500, Neut % (Auto) 63.7, Lymph % (Auto) 23.1, Potter % (Auto) 9.0, Eos % (Auto) 3.1, Baso % (Auto) 0.6, Absolute Neuts (auto) 4.1, Absolute Lymphs (auto) 1.50, Nucleated RBC % 0, Sodium 138, Potassium 3.1 L, Chloride 107, Carbon Dioxide 24.0, Anion Gap 8, BUN 46 H, Creatinine 1.21 H, Estim Creat Clear Calc 37.86, Est GFR (MDRD) Af Amer 56 L, Est GFR (MDRD) Non-Af 46 L, BUN/Creatinine Ratio 38.0 H, Glucose 228 H, Calcium 9.4 06/20/24 06:48: POC Glucose 230 H Microbiology: Microbiology 06/18/24 05:55 Urine, Clean Catch Urine Culture - Final Klebsiella pneumoniae sp pneum D/C Instructions Discharge Diet: 1800 Calorie Control Diet Discharge Activity: Return to Normal Activity Call your doctor if you observe: Fever of 101 or Higher, Shortness of breath, Fainting spells and Chest pain DC O2, CPAP, BIPAP Needs Additional Home O2 Discharge instructions: No DC home with Oxygen: No Meaningful Use Info Meaningful Use Meaningful Use Diagnoses (Choose all that apply): None applicable Ischemic Stroke Statin Dosing Therapy Reference: STATIN DOSE THERAPY REFERENCE: * Patients > 75 years receive moderate or high dose statin therapy. * Patients 75 years or YOUNGER should receive HIGH intensity statin dose unless contraindicated. You will be required to document reason for non-treatment if statin daily dose does not meet guidelines. HIGH DOSE STATIN THERAPY DAILY Atorvastatin > than or = to 40 mg Rosuvastatin > than or = to 20 mg Amlodipine + Atorvastatin > than or = to 2.5/40 mg Ezetimibe + Simvastatin 10/80 mg Simvastatin 80mg Discharge Plan Admission Admit Date/Time: 06/17/24 14:58 Attending Provider: Guy Frausto Primary Care Provider: Radha Orlando Consulting Providers: Kasia Arnold; Martin Banuelos Discharge Orders/Prescriptions Prescriptions: New cephalexin 250 mg Capsule 250 mg PO Q8 Qty: 0 0RF sennosides-docusate sodium [Stimulant Laxative Plus] 8.6-50 mg Tablet 2 tab PO BID Qty: 0 0RF melatonin 3 mg Tablet 3 mg PO QHS PRN PRN (Reason: Insomnia) Qty: 0 0RF acetaminophen 500 mg Tablet 1,000 mg PO Q8 Qty: 0 0RF potassium chloride 20 mEq Tablet,Er Particles/Crystals 20 meq PO BIDCM Qty: 0 0RF oxycodone 5 mg Tablet 2.5 mg PO Q4H PRN PRN (Reason: Pain Score 4-10) Qty: 0 0RF insulin lispro [Humalog KwikPen Insulin] 100 unit/mL Insulin Pen See Protocol subcut ACHS Qty: 0 0RF Protocol: 4. Sliding Scale Insulin High-Med Dosing Condition: 150-199 mg/dl = 2 units Condition: 200-259 mg/dl = 4 units Condition: 260-324 mg/dl = 6 units Condition: 325-374 mg/dl = 8 units Condition: 375-409 mg/dl = 10 units Condition: 410-449 mg/dl = 11 units Condition: Greater than 449 call physician Protocol Text: Suggested for: - Patients on Total Daily Insulin Dose of 56-80 units - Patient who are known to be insulin resistant or septic HIGH MEDIUM DOSING ALGORITHM Continued methimazole 5 mg tablet 5 mg PO UD Rx Instructions: TAKE ONE TABLET (5 MG) BY MOUTH THREE TIMES A WEEK AND ALSO TAKE 1/2 TABLET (2.5 MG) ONCE A WEEK. diltiazem HCl 120 mg capsule,extended release 24hr 120 mg PO DAILY carvedilol 25 mg tablet 25 mg PO BID atorvastatin 10 mg tablet 10 mg PO DAILY glipizide 2.5 mg tablet extended release 24hr 2.5 mg PO DAILY metformin 1,000 mg tablet 1,000 mg PO BID omeprazole 20 mg capsule,delayed release(DR/EC) 20 mg PO DAILY duloxetine 30 mg capsule,delayed release(DR/EC) 30 mg PO DAILY Discontinued lisinopril 20 mg tablet 20 mg PO DAILY Referrals / Follow Up: Fast,Radha, DO [Primary Care Provider] - Within 2 Weeks Disposition Disposition (needs filled in before D/C Order can be placed): Group Home Facility Charges/Coding Visit Charges Inpatient E&M: 44566 Disch Hosp >30min
--- NOTE | 2024-06-20 10:33 | PCM.TXEXTCAR ---
Diet Diet Order/Speech Therapy: 06/18/24 10:27 Diet: Carbohydrate Controlled Food consistency:: Regular Liquid Consistency:: Regular/Thin Type of Dietary Supplement:: 120mL Glucerna w/ meals Diet Comments: fortified pudding w/ lunch and dinner Routine Orders/Code Status Code Status: Full Code DC O2, CPAP, BIPAP needs Additional Home O2 Discharge instructions: No Therapies Physical Therapy: Eval and Treat Occupational Therapy: Eval and Treat Problem/Diagnosis (1) Dehydration: Status: Acute Code(s): E86.0 - Dehydration Plan Patient is a 79-year-old lady who brought from home following fall. Patient was found to have leukocytosis as well as abnormal urinalysis and assessment of acute metabolic encephalopathy made admitted to regular nursing floor. 1. Acute metabolic encephalopathy ? Secondary to acute cystitis as well as dehydration admitted to regular nursing floor for further management. Per patient's had a similar presentation in December was transferred to [facility] where patient underwent lumbar puncture and was treated for suspected meningitis. An order was placed for old records and consultation placed to ID ? 06/19/2024; patient kidney function did improve ? 06/20/2024; patient back to baseline 2. Acute cystitis with Klebsiella pneumonia ? Patient was started on ceftriaxone urine culture sent ? 06/19/2024; urine cultures pending ? 06/20/2024;Patient urine cultures positive Klebsiella pneumoniae sp pneum. Patient has been treated appropriate 3. Acute kidney injury ? Creatinine from 02/07/2024 was 1.02 creatinine on admission was 1.30 patient is on IV fluids with monitoring of electrolyte Patient kidney function did worsen necessitating patient being started on IV fluid. P 4. Right hip pain ? Patient has history of fall with hip fracture with subsequent right ORIF 2 years prior. Imaging studies obtained did show incompletely healed intertrochanteric fracture status post ORIF. Will continue with pain management with PT OT consulted for eval and treatment 5. Acute hypertensive urgency ? Blood pressure on admission was 193/96; Patient is on carvedilol diltiazem and lisinopril has not been able to take the medication given her encephalopathy was placed on hydralazine as needed patient blood pressure has since stabilized 6. Hypothyroidism ? Patient is on methimazole will resume once patient level of sensorium improves 7. Diabetes mellitus type 2 ? Patient presented with hyperglycemia patient is on metformin and glipizide held, placed on long-acting insulin in addition to Accu-Cheks before meals and at bedtime with sliding scale coverage 8. GERD ? On PPI 9. Depression with anxiety ? Plan is to resume home meds once patient level of sensorium improves 10. Dyslipidemia ? Patient is on atorvastatin 11. DVT prophylaxis Subcu heparin 12. Hypokalemia Corrected for protocol 13. Physical deconditioning ? Requested for PT OT eval and social sciences chair to assist with discharge planning Time spent in the patient's overall evaluation,decision-making process, review of diagnostic data, adjustment of management, discussion with other providers, nursing nursing and ancillary staff involved in patient's care documentation, 38 Minutes Allergies/Procedures Done in Hospital Allergies Sulfa (Sulfonamide Antibiotics) Allergy (Intermediate, Verified 01/08/24 07:24) NEEDS FOLLOW-UP spouse does not know reaction Type of Care/Length of Stay Estimated LOS: Convalescent Care Less Than 30 days Type of Care Needed: Skilled Rehab Potential: Good Prognosis: Good Additional Orders/Day of Discharge Day of Discharge: 06/20/24 Dietary and Speech Recommendations Dietitian Recommendations/Changes: Continue consistent carbohydrate diet without caloric restriction. Will add 120mL glucerna shake 3 times per day w/ medpass. Will add fortified pudding w/ lunch and dinner for tolerance. Consider CONSULTANTS INTERN swallowing evaluation to better provide appropriate consistency/texture of food and drink. Pt is dependent at meals---total feed. Discharge Plan Admission Admit Date/Time: 06/17/24 14:58 Attending Provider: Guy Frausto Primary Care Provider: Radha Orlando Consulting Providers: Kasia Arnold; Martin Banuelos Discharge Orders/Prescriptions Prescriptions: New cephalexin 250 mg Capsule 250 mg PO Q8 Qty: 0 0RF sennosides-docusate sodium [Stimulant Laxative Plus] 8.6-50 mg Tablet 2 tab PO BID Qty: 0 0RF melatonin 3 mg Tablet 3 mg PO QHS PRN PRN (Reason: Insomnia) Qty: 0 0RF acetaminophen 500 mg Tablet 1,000 mg PO Q8 Qty: 0 0RF potassium chloride 20 mEq Tablet,Er Particles/Crystals 20 meq PO BIDCM Qty: 0 0RF oxycodone 5 mg Tablet 2.5 mg PO Q4H PRN PRN (Reason: Pain Score 4-10) Qty: 0 0RF insulin lispro [Humalog KwikPen Insulin] 100 unit/mL Insulin Pen See Protocol subcut ACHS Qty: 0 0RF Protocol: 4. Sliding Scale Insulin High-Med Dosing Condition: 150-199 mg/dl = 2 units Condition: 200-259 mg/dl = 4 units Condition: 260-324 mg/dl = 6 units Condition: 325-374 mg/dl = 8 units Condition: 375-409 mg/dl = 10 units Condition: 410-449 mg/dl = 11 units Condition: Greater than 449 call physician Protocol Text: Suggested for: - Patients on Total Daily Insulin Dose of 56-80 units - Patient who are known to be insulin resistant or septic HIGH MEDIUM DOSING ALGORITHM Continued methimazole 5 mg tablet 5 mg PO UD Rx Instructions: TAKE ONE TABLET (5 MG) BY MOUTH THREE TIMES A WEEK AND ALSO TAKE 1/2 TABLET (2.5 MG) ONCE A WEEK. diltiazem HCl 120 mg capsule,extended release 24hr 120 mg PO DAILY carvedilol 25 mg tablet 25 mg PO BID atorvastatin 10 mg tablet 10 mg PO DAILY glipizide 2.5 mg tablet extended release 24hr 2.5 mg PO DAILY metformin 1,000 mg tablet 1,000 mg PO BID omeprazole 20 mg capsule,delayed release(DR/EC) 20 mg PO DAILY duloxetine 30 mg capsule,delayed release(DR/EC) 30 mg PO DAILY Discontinued lisinopril 20 mg tablet 20 mg PO DAILY Referrals / Follow Up: Fast,Radha, DO [Primary Care Provider] - Within 2 Weeks Disposition Disposition (needs filled in before D/C Order can be placed): [facility]
[2024-06-20] MEDS: Potassium Chloride Oral Tablet 20 MEQ 40 MEQ PO (11:36)
[2024-06-20 11:57] LABS: Bedside Glucose 350 mg/dL (74-106)
--- NOTE | 2024-06-20 12:46 | PCM.PN.ID ---
Physical Exam Narrative Feeling better, no fever, no abd pain Const alert and no apparent distress General Appearance: cooperative Resp normal air movement and clear to auscultation bilaterally Cardio regular rate and regular rhythm GI soft to palpation, non-tender and non-distended Skin no rashes or lesions noted ID ID: Route of nutrition/ use of supplements: [] Nutritional Intake: [] IV Site: [] Leonard Catheter: [] Assessment & Plan Assessment/Plan (1) Fall: (2) Acute metabolic encephalopathy: PLAN: H/o meningitis 12/2023 requiring transfer to [facility]. Records requested, but CSF there on 01/11/24 showed wbc 5, neg pcr panel, so not clear how true of an infection that was (she was day 3 of broad spectrum abx at that point). Klebs on Ucx, cont ceftriaxone. Mental status dramatically better this AM. Completing abx, discharge planned. Will follow
[2024-06-20] MEDS: Cephalexin 250 MG Capsule PO (13:56)
--- NOTE | 2024-06-20 14:44 | NURSING ---
report called and given to Shavonne in TCU
[2024-06-20 15:00] VITALS: BP 123/72; PULSE 86; RESP 16; TEMP 36.8; O2SAT 100
[2024-06-20] MEDS: Potassium Chloride Oral Tablet 20 MEQ PO (16:58)
[2024-06-20 17:17] LABS: Bedside Glucose 328 mg/dL (74-106)
== END 2024-06-20 17:35 | disposition skilled nursing facility (03) | DRG 871 ==
LOC: ED 14:08 → MS3 15:49
PROVIDERS: Admitting Provider Internal Medicine; Emergency Provider Emergency Medicine; PCP Internal Medicine; Visit Provider Internal Medicine
DX: A41.50 Gram-negative sepsis, unspecified (principal); G93.41 Metabolic encephalopathy; F03.94 Unspecified dementia, unspecified severity, with anxiety; N17.9 Acute kidney failure, unspecified; F03.93 Unspecified dementia, unspecified severity, with mood disturbance; S72.141K Displaced intertrochanteric fracture of right femur, subsequent encounter for closed fracture with nonunion; N39.0 Urinary tract infection, site not specified; E11.65 Type 2 diabetes mellitus with hyperglycemia; I16.0 Hypertensive urgency; E03.9 Hypothyroidism, unspecified; E86.0 Dehydration; K21.9 Gastro-esophageal reflux disease without esophagitis; M50.222 Other cervical disc displacement at C5-C6 level; I10 Essential (primary) hypertension; E78.5 Hyperlipidemia, unspecified; W19.XXXA Unspecified fall, initial encounter; M48.02 Spinal stenosis, cervical region; E87.8 Other disorders of electrolyte and fluid balance, not elsewhere classified; Z79.4 Long term (current) use of insulin; F41.8 Other specified anxiety disorders; E87.6 Hypokalemia; B96.1 Klebsiella pneumoniae [K. pneumoniae] as the cause of diseases classified elsewhere; B96.89 Other specified bacterial agents as the cause of diseases classified elsewhere; Z79.84 Long term (current) use of oral hypoglycemic drugs; Z98.890 Other specified postprocedural states; Z99.89 Dependence on other enabling machines and devices; Z96.698 Presence of other orthopedic joint implants; Z79.891 Long term (current) use of opiate analgesic; Z79.02 Long term (current) use of antithrombotics/antiplatelets; G47.00 Insomnia, unspecified; Z86.61 Personal history of infections of the central nervous system; Z90.49 Acquired absence of other specified parts of digestive tract
CPT/HCPCS: 36415; 70450; 71045; 72125; 73502; 73700; 80048; 80053; 80076; 81001; 82140; 82306; 82550; 82962; 83036; 83735; 83970; 84100; 84439; 84443; 84481; 84484; 85025; 87077; 87086; 87088; 87186; 93005; 97116; 97162; 97166; 97535; 97802; 99285; A4216

== ENCOUNTER 2024-06-20 17:58 | Inpatient (IN) | payer MEDICARE, BC, SELFPAY ==
[2024-06-20 18:11] VITALS: BP 176/87; PULSE 80; RESP 16; TEMP 36.6; O2SAT 100
--- NOTE | 2024-06-20 18:54 | NURSING ---
pt brought out to nurses station, pt attempting to get up on own with out assistance couple times since being transferred from acute. alarm placed in chair and bed.
--- NOTE | 2024-06-20 19:20 | HP.PCM_ITS ---
HPI - General General Date of Admission: 06/20/24 Date of Service: 06/20/24 Chief Complaint: Here for rehabilitation. HPI Narrative OLY REYES, is a 79 Female who presents with followin06/17/2024 [facility] ED with fall. Fall, right hip injury, arrived via EMS. Demented, confused, lied on carpeted floor x 7 hours after fall. attempted to get her up but was unable. Shortened right hip, usually walks with rollator or uses wheelchair. Glucose 465, CPK 526, Troponin 47. CT brain okay, CT c spine C5-6 disc herniation causing central canal stenosis. X-ray right hip showed ORIF right hip fracture, non-healed. Insulin 10 units given, IV fluids given. 06/17/2024 Admit [facility]. IV fluids for RICK, dehydration. CT right hip shows incompletely healed intertrochanteric fracture status post ORIF. 06/18/2024 Elevated WBC, abnormal urinalysis, acute encephalopathy. Ceftriaxone IV for UTI. IV fluids for RICK. PT/OT for debility. 06/18/2024 Dr. Banuelos noted history of meningitis, continue Ceftriaxone, urine culture for UTI. If no improvement in mental status, then MRI of brain, and lumbar puncture. 06/19/2024 Awake, interactive, sensorium improved. IV fluids for RICK, urine culture pending. Kidney function improved. PT/OT for debility. Feeling better, continue Ceftriaxone IV for UTI. 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 Encephalopathy resolved. Urine culture growing Klebsiella Pneumoniae, completing antibiotics. 06/20/2024 Admit to TCU with debility, here for rehabilitation, strengthening, prior to discharge home with . Resident and moved back to [place] from the [facility] 7 months ago. Their 22 year old daughter years ago and is buried here, and they wanted to be close by when they to be buried next to their daughter. They have no other children, but both have siblings in the region. [facility] Medical History Hypothyroidism Diabetes GERD (gastroesophageal reflux disease) Non-smoker Hypertension Home Medications ?Medication ?Instructions ?Recorded ?Last Taken ?Type atorvastatin 10 mg tablet 10 mg PO DAILY CHOLESTEROL 01/08/24 Unknown History carvedilol 25 mg tablet 25 mg PO BID HEART 01/08/24 Unknown History diltiazem HCl 120 mg 120 mg PO DAILY BLOOD PRESSURE 01/08/24 Unknown History capsule,extended release 24 hr duloxetine 30 mg capsule,delayed 30 mg PO DAILY DEPRESSION 01/08/24 Unknown History release glipizide 2.5 mg tablet, extended 2.5 mg PO DAILY BLOOD SUGAR 01/08/24 Unknown History release 24 hr metformin 1,000 mg tablet 1,000 mg PO BID BLOOD SUGAR 01/08/24 Unknown History methimazole 5 mg tablet 5 mg PO UD THYROID 01/08/24 Unknown History omeprazole 20 mg capsule,delayed 20 mg PO DAILY GERD 01/08/24 Unknown History release acetaminophen 500 mg tablet 1,000 mg (2 x 500 mg) PO Q8 pain 06/20/24 Unknown Rx #0 tabs cephalexin 250 mg capsule 250 mg PO Q8 antibiotic #0 caps 06/20/24 Unknown Rx insulin lispro 100 unit/mL See Protocol subcut ACHS diabetes 06/20/24 Unknown Rx subcutaneous pen (Humalog KwikPen #0 mL (U-100) Insulin) melatonin 3 mg tablet 3 mg PO QHS PRN PRN Insomnia #0 06/20/24 Unknown Rx tabs oxycodone 5 mg tablet 2.5 mg (1/2 x 5 mg) PO Q4H PRN PRN 06/20/24 Unknown Rx Pain Score 4-10 #0 tabs potassium chloride 20 mEq 20 meq PO BIDCM supplement #0 tabs 06/20/24 Unknown Rx tablet,extended release(part/cryst) sennosides 8.6 mg-docusate sodium 2 tab PO BID stool softener #0 tabs 06/20/24 Unknown Rx 50 mg tablet (Stimulant Laxative Plus) Allergy/AdvReac Type Severity Reaction Status Date / Time Sulfa (Sulfonamide Allergy Intermediate NEEDS Verified 01/08/24 07:24 Antibiotics) FOLLOW-UP Surgical History History of appendectomy History of cholecystectomy Social History (Updated 06/20/24 @ 19:[address] Leo Jacob MD) household members: spouse Smoking Status: Never smoker alcohol intake: never substance use type: does not use ROS Constitutional Constitutional: Reports weakness; Denies chills, fever(s) or weight gain ENT HEENT: Denies headache(s), nasal congestion or nasal discharge Cardiovascular Cardiovascular: Denies chest pain or palpitations Respiratory/Chest Respiratory/Chest: Denies cough, excessive phlegm production or shortness of breath with exertion Gastrointestinal Gastrointestinal: Denies abdominal pain, nausea or vomiting Genitourinary Genitourinary: Denies dysuria Musculoskeletal Musculoskeletal: Denies joint pain or joint swelling Integumentary Integumentary: Denies rash or wounds Neurologic Neurologic: Denies focal weakness, numbness or tingling Psychiatric Psychiatric: Denies anxiety, auditory hallucinations, depression, homicidal ideation or suicidal ideation Vital Signs Vital Signs Vital Signs: 06/20/24 18:11 06/20/24 18:11 Temperature 97.8 F Temperature Source Temporal Pulse Rate 80 Pulse Rhythm Regular Respiratory Rate 16 Respiratory Effort Normal Non-Labored Respiratory Depth Normal Respiratory Pattern Normal Blood Pressure 176/87 H Blood Pressure Mean 116 Blood Pressure Source Monitor Blood Pressure Position Sitting Blood Pressure Location Right Arm Pulse Ox 100 Oxygen Delivery Method Room Air Room Air Physical Exam Const alert General Appearance: cooperative HEENT normocephalic Eyes PERRL and EOMs intact bilaterally Neck supple, no JVD and no carotid bruits Resp normal respiratory effort, normal air movement and clear to auscultation bilaterally Cardio regular rate and regular rhythm GI normal to inspection, nondistended, normoactive bowel sounds, non-tender and non-distended Extremity normal capillary refill General Extremity: Negative for edema Skin no rashes or lesions noted General Skin Exam: no breakdown Psych affect normal Appearance: appropriate Assessment & Plan Assessment/Plan (1) Debility: (2) Fall: (3) Acute kidney injury: (4) Dehydration: (5) Urinary tract infection: (6) Acute encephalopathy: (7) Right hip pain: (8) Essential (primary) hypertension: (9) Hyperlipidemia, unspecified: (10) Depression: (11) Hyperglycemia due to type 2 diabetes mellitus: (12) Hyperthyroidism: PLAN: Plan 79 year old female with below past medical history hospitalized for fall, right hip pain, 2/2 urinary tract infection, RICK, dehydration, complicated by encephalopathy, admitted to TCU with debility, here for rehabilitation, strengthening, prior to discharge home with . * Debility - PT/OT. * Pain - Tylenol 1000mg q8, Oxycodone 2.5mg q4 prn pain (4-10). * Bowel - senna/colace 2 tablets bid, Magnesium citrate 300mL daily prn * Adult immunization - Administer pneumonia vaccine, covid vaccine, flu vaccine as appropriate. * DVT prophylaxis - Lovenox 30mg sc daily. * Hyperlipidemia - Atorvastatin 10mg qhs. * Hypertension - Coreg 25mg bid, Diltiazem 120mg daily. * K. Pneumoniae UTI - Cipro 250mg po bid thru 06/28/2024. * Depression - Duloxetine 30mg daily, stable chronic long term care social worker use, GDR not recommended. * Diabetes Mellitus II - Metformin 1000mg bidcm, Glipizide ER 2.5mge daily. * Insomnia - Melatonin 3mg qhs prn. * Hyperthyroidism - Methimazole 5mg 6 days per week, 2.5mg 1 day per week. * GERD - Pantoprazole 20mg daily. * Hypokalemia - KCL 20meq bidcm.
[2024-06-20 21:34] LABS: Bedside Glucose 270 mg/dL (74-106)
[2024-06-20] MEDS: Cephalexin 250 MG Capsule PO (21:35)
[2024-06-20] MEDS: Atorvastatin Calcium 10 MG Tablet PO (21:35)
[2024-06-20] MEDS: Acetaminophen 500 MG Tablet 1000 MG PO (21:35)
[2024-06-20] MEDS: Carvedilol 25 MG Tablet PO (21:35)
[2024-06-20 21:51] VITALS: BMI 24.6
[2024-06-20] MEDS: MELATONIN 3 MG TABLET PO (23:39)
[2024-06-21] MEDS: Acetaminophen 500 MG Tablet 1000 MG PO ×3 (05:28→22:15)
[2024-06-21] MEDS: Enoxaparin 30 MG/0.3 ML Syringe SC (05:28)
[2024-06-21] MEDS: Cephalexin 250 MG Capsule PO ×3 (05:28→22:15)
[2024-06-21 06:40] LABS: Bedside Glucose 303 mg/dL (74-106)
[2024-06-21 07:15] LABS: Absolute Lymphocyte Count 1.03 X10^3/uL (0.83-4.51); Absolute Neutrophil Count 3.7 X10^3/uL (2.0-7.7); Basophil# 0.03 X10^3/uL; Basophil% 0.5 % (0-1); Eosinophil# 0.24 X10^3/uL; Eosinophils% 4.3 % (0-5); Hemoglobin 11.3 g/dL (12.0-15.0); Lymphocyte # 1.03 X10^3/ul (0.83-4.51); Lymphocyte % 18.6 % (19-41); Mean Corp Hgb Conc 30.5 g/dL (32-36); Mean Corpuscular Hgb 25.6 pg (27.0-32.0); Mean Corpuscular Volume 83.9 fL (81-99); Mean Platelet Vol. 10.9 fl (6.2-12.0); Monocyte# 0.47 X10^3/uL; Monocyte% 8.5 % (0-10); NRBC Flagged by Analyzer 0 % (0-5); Neutrophil # 3.74 X10^3/uL (2.7-7.7); Neutrophil % 67.7 % (47-70); Platelet Count 224 K/mm3 (150-450); RBC Distribution Width CV 16.3 % (11.6-14.6); RBC Distribution Width SD 50.3 fl (35.1-43.9); Red Blood Count 4.41 M/mm3 (4.2-5.4); White Blood Count 5.5 K/mm3 (4.4-11.0)
[2024-06-21 07:39] LABS: Anion Gap 7 (5-15); BUN 35 mg/dL (7-18); Calcium,Total 9.3 mg/dL (8.5-10.1); Chloride 107 mmol/L (98-107); Creatinine, Serum 0.95 mg/dL (0.55-1.02); EST Glomerular Filtration Rate 61 mL/min (>60); Est Glom Filt Rate - Afr Amer 74 mL/min (>60); Estimated Creatinine Clearance 44.39 ml/min; Glucose 336 mg/dL (74-106); Potassium 3.4 mmol/L (3.5-5.1); Sodium Level 138 mmol/L (136-145)
[2024-06-21 09:40] VITALS: BP 143/54; PULSE 89; RESP 17; TEMP 36.2; O2SAT 96
[2024-06-21] MEDS: glipiZIDE 2.5 MG TAB.ER.24 PO (09:42)
[2024-06-21] MEDS: metFORMIN HCl 1,000 MG Tablet 1000 MG PO ×2 (09:43→17:55)
[2024-06-21] MEDS: Carvedilol 25 MG Tablet PO ×2 (09:43→22:15)
[2024-06-21] MEDS: dilTIAZem CD 120 MG Capsule PO (09:43)
[2024-06-21] MEDS: Potassium Chloride Oral Tablet 20 MEQ PO ×2 (09:43→17:55)
[2024-06-21] MEDS: DULoxetine Hcl 30 MG Capsule PO (09:44)
[2024-06-21] MEDS: Senna/Docusate Sodium 1 Tablet 2 TABLET PO (09:44)
[2024-06-21] MEDS: Pantoprazole Sodium 20 MG Tablet PO (09:44)
--- NOTE | 2024-06-21 10:30 | PHA.CONS_ITS ---
Documented by User: Gabriel Melton 06/21/24 11:03 TCU RX Drug Regimen Review Subjective/Objective Subjective/Objective Subjective: TCU admission note. 79 year old female with below past medical history hospitalized for fall, right hip pain, 2/2 urinary tract infection, RICK, dehydration, complicated by encephalopathy, admitted to TCU with debility, here for rehabilitation, strengthening, prior to discharge home with . Objective: Allergies Sulfa (Sulfonamide Antibiotics) Allergy (Intermediate, Verified 01/08/24 07:24) NEEDS FOLLOW-UP spouse does not know reaction Current Medications Generic Name Dose Route Start Last Admin Trade Name Freq PRN Reason Stop Dose Admin Acetaminophen 1,000 mg 06/20/24 22:00 06/21/24 05:28 Acetaminophen 500 Mg Tablet PO 1,000 mg Q8 KARIS Administration Atorvastatin Calcium 10 mg 06/20/24 22:00 06/20/24 21:35 Atorvastatin Calcium 10 Mg Tablet PO 10 mg QHS KARIS Administration Carvedilol 25 mg 06/20/24 22:00 06/21/24 09:43 Carvedilol 25 Mg Tablet PO 25 mg BID KARIS Administration Protocol Cephalexin 250 mg 06/20/24 22:00 06/21/24 05:28 Cephalexin 250 Mg Capsule PO 06/28/24 23:59 250 mg Q8 KARIS Administration Diltiazem HCl 120 mg 06/21/24 10:00 06/21/24 09:43 Diltiazem Cd 120 Mg Capsule PO 120 mg DAILY KARIS Administration Protocol Duloxetine HCl 30 mg 06/21/24 10:00 06/21/24 09:44 Duloxetine Hcl 30 Mg Capsule PO 30 mg DAILY KARIS Administration Enoxaparin Sodium 30 mg 06/21/24 06:00 06/21/24 05:28 Enoxaparin 30 Mg/0.3 Ml Syringe SC 30 mg DAILY@0600 KARIS Administration Glipizide 2.5 mg 06/21/24 08:00 06/21/24 09:42 Glipizide 2.5 Mg Tab.Er.24 PO 2.5 mg DAILYCM KARIS Administration Magnesium Citrate 300 ml 06/20/24 19:46 Magnesium Citrate 300 Ml PO DAILY PRN CONSTIPATION Melatonin 3 mg 06/20/24 18:14 06/20/24 23:39 Melatonin 3 Mg Tablet PO 3 mg QHS PRN PRN Administration Insomnia Metformin HCl 1,000 mg 06/21/24 08:00 06/21/24 09:43 Metformin Hcl 1,000 Mg Tablet PO 1,000 mg BIDCM KARIS Administration Methimazole 5 mg 06/23/24 10:00 Methimazole 5 Mg Tablet PO MoTuWe@1000 KARIS Methimazole 2.5 mg 06/27/24 10:00 Methimazole 5 Mg Tablet PO Fr@1000 [facility] Oxycodone HCl 2.5 mg 06/20/24 18:14 Oxycodone 5 Mg Tablet PO Q4H PRN PRN Pain Score 4-10 Pantoprazole Sodium 20 mg 06/21/24 10:00 06/21/24 09:44 Pantoprazole Sodium 20 Mg Tablet PO 20 mg DAILY KARIS Administration Potassium Chloride 20 meq 06/21/24 08:00 06/21/24 09:43 Potassium Chloride Oral Tablet 20 Meq PO 20 meq BIDCM KARIS Administration Senna/Docusate Sodium 2 tablet 06/20/24 22:00 06/21/24 09:44 Senna/Docusate Sodium 1 Tablet PO 2 tablet BID KARIS Administration Tuberculin PPD 0.1 ml 06/28/24 10:00 Tuberculin,Purif.Prot.Deriv. 50 Tu/Ml Vial ID 06/28/24 10:01 X1 ONE Problem List Hyperthyroidism (Acute) Depression (Acute) Hyperlipidemia, unspecified (Acute) Essential (primary) hypertension (Acute) Right hip pain (Acute) Acute encephalopathy (Acute) Urinary tract infection (Acute) Acute kidney injury (Acute) Debility (Acute) Dehydration (Acute) Fall (Acute) Hyperglycemia due to type 2 diabetes mellitus (Acute) Vital Signs Temp Pulse Resp BP Pulse Ox O2 Del Method 97.2 F L 89 17 143/54 H 96 Room Air 06/21/24 09:40 06/21/24 09:40 06/21/24 09:40 06/21/24 09:40 06/21/24 09:40 06/21/24 09:40 Oxygen Delivery Method Room Air Weight: 63.163 kg Body Mass Index (BMI) 24.6 Sodium 138 mmol/L (136-145) 06/21/24 06:49 Potassium 3.4 mmol/L (3.5-5.1) L 06/21/24 06:49 Chloride 107 mmol/L (98-107) 06/21/24 06:49 Carbon Dioxide 24.0 mmol/L (21.0-32.0) 06/21/24 06:49 Anion Gap 7 (5-15) 06/21/24 06:49 BUN 35 mg/dL (7-18) H 06/21/24 06:49 Creatinine 0.95 mg/dL (0.55-1.02) 06/21/24 06:49 Est GFR (MDRD) Af Amer 74 mL/min (>60) 06/21/24 06:49 Est GFR (MDRD) Non-Af 61 mL/min (>60) 06/21/24 06:49 BUN/Creatinine Ratio 37.0 RATIO (10-20) H 06/21/24 06:49 Glucose 336 mg/dL (74-106) H 06/21/24 06:49 Assessment/Plan: 1. Pain: acetaminophen 1000 mg PO Q8H, oxycodone 2.5 mg PO Q4H PRN pain (4-10). The patient has not required any PRN doses of oxycodone so far this admission. Please continue to monitor pain levels, PRN medication administration, LFTs (AST/ALT = 35/23 U/L on 06/18/24), for respiratory depression, constipation, dizziness/drowsiness, and for syncope/ataxia/falls. 2. Bowel: senna/docusate 2 tablets Po BID, magnesium citrate 300 mL PO daily PRN constipation. The patient has not required any PRN doses of magnesium citrate, and the patient's last bowel movement was 06/19/24. Please continue to monitor for constipation, diarrhea, bowel movements and PRN medication administrations. 3. DVT prophylaxis: enoxaparin 30 mg SC daily. Please continue to monitor for s/ s of a DVT such as pain/erythema/edema in an extremity, renal function (serum creatinine = 0.95 with creatinine clearance ~ 44 mL/min on 06/21/24), hemoglobin levels (Hgb = 11.3 g/dL on 06/21/24), platelet count (Plt = 224 K/mm3 on 06/21/24), and for s/s of bruising/bleeding. Due to improvement in renal function the enoxaparin dose will be increased to 40 mg SC daily. 4. K Pneumoniae UTI: cephalexin 250 mg PO three times daily through 06/28/24. Please continue to monitor for s/s of a UTI such as dysuria/frequency/urgency, for fever/chills (recent temp = 97.2 F), WBC counts (WBC = 5.5 K/mm3 on ), and for diarrhea. 5. Hypertension: carvedilol 25 mg PO BID, diltiazem 120 mg PO daily. Please continue to monitor blood pressures (recent range = 123-176/54-87 mmHg), heart rates (recent range = 64-109 beats/min), for fatigue and for constipation. The patient's blood pressures have mostly been elevated over the past several days. Please consider adding an additional agent for blood pressure control such as lisinopril 5 mg PO daily. 6. Diabetes Mellitus II: metformin 1000 mg PO BID with meals, glipizide ER 2.5 mg PO daily. Please continue to monitor blood glucose levels (recent range = 230-350 mg/dL), hemoglobin A1C levels (A1C = 8.5% on 06/18/24), for GI distress with metformin administration, renal function (serum creatinine = 0.95 with creatinine clearance ~ 44 mL/min and GFR = 61 mL/min on 06/21/24), and vitamin B12 levels (no recent vitamin B12 level documented). The patient's blood sugars have been significantly elevated over the past several days. Please consider the addition of a sliding scale insulin to help control the patient's blood sugars, and potentially adding a long-acting insulin once the patient's daily insulin requirements are determined using the sliding scale. 7. Hyperlipidemia: atorvastatin 10 mg PO QHS. Please continue to monitor lipid levels (cholesterol = 135 mg/dL with LDL = 54 mg/dL on 01/09/24), LFTs (AST/ALT = 35/23 U/L on 06/18/24), and for myalgias. 8. Hyperthyroidism: methimazole 2.5 mg PO on Fridays, methimazole 5 mg PO daily except Fridays. Please continue to monitor LFTs (AST/ALT = 35/23 U/L on 06/18/24), for s/s of hyper/hypothyroidism, and thyroid hormone levels (TSH = 0.160 uIU/mL with T4 = 1.50 ng/dL on 06/17/24). 9. GERD: pantoprazole 20 mg PO daily. Please continue to monitor for s/s of GERD, for diarrhea that could indicate clostridium difficile infection, for s/s of bone resorption such as fractures, and magnesium levels (Mg = 2.0 mg/dL on 06/19/24). 10. Hypokalemia: potassium chloride 20 mEq PO BID with meals. Please continue to monitor potassium levels (K = 3.4 mmol/L on 06/21/24), and for GI distress with potassium administration. 11. Insomnia: melatonin 3 mg PO QHS PRN insomnia. The patient has not required a [place] PRN doses of melatonin so far this admission. Please continue to monitor for insomnia, for PRN medication administrations, and for drowsiness/dizziness. Assessment/Plan for indications treated with psychotropic medications: 1. Depression: duloxetine 30 mg PO daily. Please see provider note regarding stable chronic long-term use GDR not recommended. Please continue to monitor for depression, for SI, LFTs (AST/ALT = 35/23 U/L on 06/18/24), sodium levels (Na = 138 mmol/L on 06/21/24), for s/s of serotonin syndrome, abdominal pain, nausea, drowsiness and fatigue. Medical chart and medication regimen reviewed. The following medication irregularities or issues were identified: 1. Hypertension: carvedilol 25 mg PO BID, diltiazem 120 mg PO daily. The patient's blood pressures have mostly been elevated over the past several days. Please consider adding an additional agent for blood pressure control such as lisinopril 5 mg PO daily. 2. Diabetes Mellitus II: metformin 1000 mg PO BID with meals, glipizide ER 2.5 mg PO daily. The patient's blood sugars have been significantly elevated over the past several days. Please consider the addition of a sliding scale insulin to help control the patient's blood sugars, and potentially adding a long-acting insulin once the patient's daily insulin requirements are determined using the sliding scale. Date Date of Note: 06/21/24 Documented by User: Dr. Leo Jacob MD 06/21/24 11:49 TCU RX Drug Regimen Review Provider Comments Provider responsibility Provider Comments to Recommendations by Pharmacy Agree
--- NOTE | 2024-06-21 11:41 | NURSING ---
Addendum entered by Whitley Jolley 06/21/24 13:30: Updated Dr. Jacob on elevated BGT. New order 10 units Lispro. VORB. Original Note: Call placed to Dr. Jacob. Updated on elevated BGT. Patient impulsive, getting up w/o assist. Patient's potassium 3.4. New order for 10 units Lispro, personal alarm, and BMP for tomorrow. VORB.
[2024-06-21 11:43] LABS: Bedside Glucose 464 mg/dL (74-106)
[2024-06-21] MEDS: Insulin Lispro 100 UNIT/ML INSULN.PEN 10 UNIT SC ×3 (12:06→17:54)
[2024-06-21 13:33] LABS: Bedside Glucose 436 mg/dL (74-106)
[2024-06-21 13:42] VITALS: BP 158/69; PULSE 87
[2024-06-21] MEDS: Losartan Potassium 100 MG Tablet PO (13:45)
[2024-06-21] MEDS: Tuberculin,Purif.prot.deriv. 50 TU/ML Vial 0.1 ML ID (13:45)
--- NOTE | 2024-06-21 17:02 | NURSING ---
Arrived in room, patient's trying to transfer patient in bathroom at the bar. Resident was standing with no staff in the room. Patient's educated not to transfer patient. Reported to RN.
[2024-06-21 17:06] LABS: Bedside Glucose 205 mg/dL (74-106)
--- NOTE | 2024-06-21 17:06 | NURSING ---
Nurse aid requested assistance with patient and family education. Aid found to be transferring patient without assistance from staff. This nurse educated patient and that staff must be present for all transfers. stated, see, leave me alone patient stated, well I'm sorry for you guys both patient and verbalized understanding. agreed to use call light when patient asks to go to the bathroom.
[2024-06-21 22:11] LABS: Bedside Glucose 84 mg/dL (74-106)
[2024-06-21 22:12] VITALS: BP 120/55; PULSE 84
[2024-06-21] MEDS: Atorvastatin Calcium 10 MG Tablet PO (22:15)
[2024-06-22] MEDS: Insulin Glargine-YFGN 100 UNIT/ML Pen 30 UNIT SC ×2 (00:40→22:24)
[2024-06-22 01:22] LABS: Bedside Glucose 173 mg/dL (74-106)
[2024-06-22 04:15] LABS: Bedside Glucose 190 mg/dL (74-106)
[2024-06-22] MEDS: Enoxaparin 40 MG/0.4 ML Syringe SC (06:10)
[2024-06-22] MEDS: Cephalexin 250 MG Capsule PO ×3 (06:10→22:20)
[2024-06-22] MEDS: Acetaminophen 500 MG Tablet 1000 MG PO ×3 (06:10→22:21)
[2024-06-22 06:54] LABS: Bedside Glucose 196 mg/dL (74-106)
[2024-06-22 08:11] VITALS: BP 133/60; PULSE 88; RESP 16; TEMP 36.5; O2SAT 96
[2024-06-22] MEDS: Insulin Lispro 100 UNIT/ML INSULN.PEN SC ×3 (08:14→17:53)
[2024-06-22] MEDS: glipiZIDE 2.5 MG TAB.ER.24 PO (08:15)
[2024-06-22] MEDS: Potassium Chloride Oral Tablet 20 MEQ PO ×2 (08:15→17:53)
[2024-06-22] MEDS: metFORMIN HCl 1,000 MG Tablet 1000 MG PO ×2 (08:15→17:53)
[2024-06-22] MEDS: dilTIAZem CD 120 MG Capsule PO (08:16)
[2024-06-22] MEDS: DULoxetine Hcl 30 MG Capsule PO (08:16)
[2024-06-22] MEDS: Carvedilol 25 MG Tablet PO ×2 (08:16→22:22)
[2024-06-22] MEDS: Losartan Potassium 100 MG Tablet PO (08:16)
[2024-06-22] MEDS: Pantoprazole Sodium 20 MG Tablet PO (08:17)
[2024-06-22] MEDS: Menthol/Lanolin/Calamine/Znox 113 GM Tube 1 APPLIC TOPICAL ×2 (08:19→22:23)
[2024-06-22 08:22] LABS: Anion Gap 6 (5-15); BUN 47 mg/dL (7-18); BUN/Creat Ratio 33.1 RATIO (10-20); Chloride 107 mmol/L (98-107); Creatinine, Serum 1.42 mg/dL (0.55-1.02); EST Glomerular Filtration Rate 38 mL/min (>60); Est Glom Filt Rate - Afr Amer 46 mL/min (>60); Glucose 207 mg/dL (74-106); Potassium 4.1 mmol/L (3.5-5.1); Sodium Level 139 mmol/L (136-145)
[2024-06-22 11:51] LABS: Bedside Glucose 168 mg/dL (74-106)
[2024-06-22 16:49] LABS: Bedside Glucose 126 mg/dL (74-106)
--- NOTE | 2024-06-22 21:30 | NURSING ---
FIELD ADMINISTRATOR informs this nurse resident's spouse is asleep in recliner in her room. This nurse gently approaches spouse to awaken him. Questions spouse when he arrived to unit and notes 0830. Notes he drove himself to the hospital and does not have any local support system. Informed during report from dayshift RN that spouse was intermittently sleeping in resident's room during the shift. Will leave a vm for SW to f/u. Staff to continue to monitor.
[2024-06-22 21:38] LABS: Bedside Glucose 102 mg/dL (74-106)
[2024-06-22] MEDS: MELATONIN 3 MG TABLET PO (22:20)
[2024-06-22] MEDS: Senna/Docusate Sodium 1 Tablet 2 TABLET PO (22:21)
[2024-06-22] MEDS: Atorvastatin Calcium 10 MG Tablet PO (22:22)
--- NOTE | 2024-06-22 22:30 | NURSING ---
HS snack of regular vanilla pudding and apple juice given prior to scheduled dose of hs Glargine. Meds given whole 1 at a time in pudding. Will continue to monitor.
[2024-06-22 22:33] VITALS: BP 146/64; PULSE 78
[2024-06-23] MEDS: Cephalexin 250 MG Capsule PO ×3 (05:55→21:05)
[2024-06-23] MEDS: Acetaminophen 500 MG Tablet 1000 MG PO ×3 (05:55→21:03)
[2024-06-23] MEDS: Enoxaparin 40 MG/0.4 ML Syringe SC (05:56)
--- NOTE | 2024-06-23 06:07 | NURSING ---
Blood sugar 61 this am. Resident is alert and talking w/ staff. 4oz of orange juice given w/ two packets of sugar, a packet of brandon crackers, and one cup of regular vanilla pudding given per assistance from staff. Will continue to monitor.
[2024-06-23 06:44] LABS: Bedside Glucose 61 mg/dL (74-106)
[2024-06-23 06:45] LABS: Bedside Glucose 119 mg/dL (74-106)
--- NOTE | 2024-06-23 07:51 | NURSING ---
Left vm for KATIE Herrera, to update on concerns about spouse as documented per previous note per this nurse.
[2024-06-23 10:09] VITALS: BP 149/74; PULSE 76; TEMP 36.7; O2SAT 96
[2024-06-23] MEDS: dilTIAZem CD 120 MG Capsule PO (10:15)
[2024-06-23] MEDS: Losartan Potassium 100 MG Tablet PO (10:15)
[2024-06-23] MEDS: metFORMIN HCl 1,000 MG Tablet 1000 MG PO ×2 (10:15→17:29)
[2024-06-23] MEDS: DULoxetine Hcl 30 MG Capsule PO (10:15)
[2024-06-23] MEDS: Potassium Chloride Oral Tablet 20 MEQ PO ×2 (10:15→17:29)
[2024-06-23] MEDS: Pantoprazole Sodium 20 MG Tablet PO (10:15)
[2024-06-23] MEDS: glipiZIDE 2.5 MG TAB.ER.24 PO (10:15)
[2024-06-23] MEDS: Carvedilol 25 MG Tablet PO ×2 (10:15→21:04)
[2024-06-23] MEDS: Methimazole 5 MG Tablet PO (10:16)
--- NOTE | 2024-06-23 10:22 | NURSING ---
Cook Night Note; Activity Asset: Darrel Sy is independent in her choice of daily activities w/reminders. She prefers to be called Mary. Her will be her every day and bring in her anything she may need. She enjoys reading books, will watch tv and rest. Welcomes visits from the drier unloader and therapy dog when available. Staff will remind her of weekly activities and respect her right to say no.
--- NOTE | 2024-06-23 11:15 | CASEMGMT ---
Addendum entered by Sharon Win 06/24/24 15:31: SW left VM with son. SW wishes to discuss son's perspective of pt and living at home alone and invite to POC meeting. Will continue to follow. Original Note: Social Work SW met with patient to complete initial assessment. Introduced self and role. present and pt agreed for remain for assessment. Verified contacts. Patient confirmed code status as full code. D/t pt's cognition, pt is unable to have advanced directives completed. SW educated to Medicare benefit and copay coverage. Pt and 's goal is for pt to return home at [facility]. made it clear that pt just needs to return to baseline - no better. We don't want to be here if we don't need to be. SW noted pt is a SPT x2 assist and recommendations home would be a one person assist, specifically having the being able to provide assistance to pt. D/t to pt's poor cognition, answered majority of assessment questions. Pt presented with blank stare, empty eyes - consistent with Dementia diagnosis. Pt struggled answering questions and deferred to . See SW assessment for details, however, this worker had discussion with about ensuring pt's safety and well-being at home. explained there are no groceries kept in the home. SW explicitly asked about breakfast, snacks, milk, coffee. denied and pt answered we go to [employer] every morning for coffee and a McMuffin. reported their son bought $500-600 worth of groceries before and it all went bad because we don't eat groceries. reported managing pt's medication, though, was not confident in telling this worker what pt is taking. SW inquired how long pt had Dementia. jokingly replied, me or her?. Before pt and moved to [place], Dr. Orlando was their PCP, and they reestablished upon return to [place] in November. Dr. Orlando noticed the Dementia and made the dx, per pt's . stated he does not leave pt home alone because pt does not want to be alone and wants to go places with . SW expressed initial concern with pt and living independently at home, and the lack of support. Though, SW explained pt is a new admission and after a week or two of therapy, IDT will better assess pt's progress and recommendations for DC. SW will assist with DC planning and encouraged to be present for therapy sessions to remain informed of pt's progress. inquired about visiting hours. SW explained therapy starts about 0900, and nighttime routine begins about 1900. agreed to visit within that timeframe and that will give him time at home to complete his errands. SW will continue to follow. OPAL ShinW
[2024-06-23 11:55] LABS: Bedside Glucose 110 mg/dL (74-106)
[2024-06-23] MEDS: Insulin Lispro 100 UNIT/ML INSULN.PEN SC (12:56)
[2024-06-23] MEDS: Menthol/Lanolin/Calamine/Znox 113 GM Tube 1 APPLIC TOPICAL ×2 (14:17→21:05)
[2024-06-23 17:28] LABS: Bedside Glucose 87 mg/dL (74-106)
[2024-06-23 17:28] LABS: Bedside Glucose 44 mg/dL (74-106)
[2024-06-23 21:00] VITALS: BP 134/64; PULSE 71; RESP 16
[2024-06-23] MEDS: Atorvastatin Calcium 10 MG Tablet PO (21:03)
[2024-06-23] MEDS: MELATONIN 3 MG TABLET PO (21:04)
[2024-06-23] MEDS: Insulin Glargine-YFGN 100 UNIT/ML Pen 20 UNIT SC (21:04)
[2024-06-23 21:29] LABS: Bedside Glucose 129 mg/dL (74-106)
[2024-06-23 22:00] VITALS: RESP 16
[2024-06-24] MEDS: Acetaminophen 500 MG Tablet 1000 MG PO ×3 (05:45→20:21)
[2024-06-24] MEDS: Cephalexin 250 MG Capsule PO ×3 (05:45→20:20)
[2024-06-24] MEDS: Enoxaparin 40 MG/0.4 ML Syringe SC (05:45)
[2024-06-24 06:32] LABS: Bedside Glucose 59 mg/dL (74-106)
[2024-06-24 06:52] LABS: Bedside Glucose 88 mg/dL (74-106)
--- NOTE | 2024-06-24 07:01 | NURSING ---
Hypoglycemia this AM, snack and juice provided. Glucose recheck 88, asymptomatic. Written communication left for Dr. Jacob.
[2024-06-24] MEDS: glipiZIDE 2.5 MG TAB.ER.24 PO (09:51)
[2024-06-24] MEDS: Potassium Chloride Oral Tablet 20 MEQ PO ×2 (09:51→17:12)
[2024-06-24] MEDS: metFORMIN HCl 1,000 MG Tablet 1000 MG PO ×2 (09:51→17:12)
[2024-06-24] MEDS: Losartan Potassium 100 MG Tablet PO (09:52)
[2024-06-24] MEDS: Carvedilol 25 MG Tablet PO ×2 (09:52→20:20)
[2024-06-24] MEDS: Pantoprazole Sodium 20 MG Tablet PO (09:52)
[2024-06-24] MEDS: DULoxetine Hcl 30 MG Capsule PO (09:52)
[2024-06-24] MEDS: Senna/Docusate Sodium 1 Tablet 2 TABLET PO ×2 (09:53→20:21)
[2024-06-24] MEDS: dilTIAZem CD 120 MG Capsule PO (09:53)
[2024-06-24] MEDS: Menthol/Lanolin/Calamine/Znox 113 GM Tube 1 APPLIC TOPICAL ×2 (09:54→20:23)
[2024-06-24] MEDS: Methimazole 5 MG Tablet PO (09:54)
[2024-06-24 10:38] VITALS: BP 138/72; PULSE 78; RESP 16; TEMP 36.6; O2SAT 98; BMI 26.1
[2024-06-24 10:40] VITALS: PULSE 78; RESP 16
--- NOTE | 2024-06-24 10:54 | NURSING ---
Offered covid vaccine, VIS provided. Resident refuses at this time.
[2024-06-24 11:58] LABS: Bedside Glucose 147 mg/dL (74-106)
--- NOTE | 2024-06-24 15:37 | CHAPLAIN ---
Type of Pastoral Visit _x__ Initial Visit ___ Follow-up Visit ___ On-call Visit ___ General Patient Visit ___ Spiritual Assessment ___ Family Conference ___ Bereavement ___ Rapid Response ___ Code Blue ___ Other (describe below) Pastoral Care Referral From _x__ Patient _x__ Family ___ Nurse ___ Physician ___ Vegetable Cook ___ Visualizer ___ Other (describe below) Sacrament/Intervention _x__ Active listening ___ Anointing ___ Baptist ___ Bereavement ___ Communion ___ Sara exploration ___ _x__ Life review _x__ Prayer ___ Reconciliation ___ Sacrament of Sick _x__ Supportive presence ___ Wedding ___ Other (describe below) Pastoral Comments patient and spouse are in the room; pt states that she is fine and asks where she is and when can she go home; spouse is more informative and details how they moved back to [place] in November to finish out their lives here and that ever since they have had bad luck and she has been sick; pt refers to her parents and living in [place] when asked about her family and life; spouse attempts to reorient pt to time and place; pt speaks of her father the bioinformatics developer; spouse admits that this is a difficult season for them and that 'both are weak in the legs'; conversation continues with orientation and clarifying comments; pt welcomes prayer for support today
[2024-06-24 17:10] LABS: Bedside Glucose 172 mg/dL (74-106)
[2024-06-24] MEDS: Atorvastatin Calcium 10 MG Tablet PO (20:21)
[2024-06-24] MEDS: MELATONIN 3 MG TABLET PO (20:21)
[2024-06-24 21:46] LABS: Bedside Glucose 90 mg/dL (74-106)
[2024-06-25] MEDS: Enoxaparin 40 MG/0.4 ML Syringe SC (05:28)
[2024-06-25] MEDS: Acetaminophen 500 MG Tablet 1000 MG PO ×3 (05:28→21:13)
[2024-06-25] MEDS: Cephalexin 250 MG Capsule PO ×3 (05:28→21:13)
[2024-06-25 06:31] LABS: Bedside Glucose 98 mg/dL (74-106)
[2024-06-25 08:45] VITALS: BP 128/54; PULSE 86; RESP 16; TEMP 36.2; O2SAT 98
[2024-06-25] MEDS: Methimazole 5 MG Tablet PO (08:52)
[2024-06-25] MEDS: Potassium Chloride Oral Tablet 20 MEQ PO ×2 (08:52→16:34)
[2024-06-25] MEDS: dilTIAZem CD 120 MG Capsule PO (08:52)
[2024-06-25] MEDS: Senna/Docusate Sodium 1 Tablet 2 TABLET PO ×2 (08:52→21:14)
[2024-06-25] MEDS: Carvedilol 25 MG Tablet PO ×2 (08:53→21:14)
[2024-06-25] MEDS: metFORMIN HCl 1,000 MG Tablet 1000 MG PO ×2 (08:53→16:34)
[2024-06-25] MEDS: DULoxetine Hcl 30 MG Capsule PO (08:53)
[2024-06-25] MEDS: Losartan Potassium 100 MG Tablet PO (08:53)
[2024-06-25] MEDS: Pantoprazole Sodium 20 MG Tablet PO (08:53)
[2024-06-25] MEDS: Menthol/Lanolin/Calamine/Znox 113 GM Tube 1 APPLIC TOPICAL ×2 (08:53→21:14)
[2024-06-25] MEDS: glipiZIDE 2.5 MG TAB.ER.24 PO (08:53)
--- NOTE | 2024-06-25 09:00 | CASEMGMT ---
Social Work SW received return VM from son. Phoned son, introduced self and role. Inquired about son's perspective on pt and living alone. Son expressed concerns and citing both cognitive impairment. Son stated pt has been declining for awhile but has noticed father declining cognitively as well. Son gave the example when son was in town when pt got hospitalized and they went to dinner, could not calculate a tip for the wire bound box machine operator, son had to assist. Son explained father would lose his thought during conversation or talk in circles. Son also confirmed the story, without prompting from this worker, of him buying pt and father $500 worth of groceries and when he returned to town, the groceries had not been touched. SW expressed the same concern IDT is noting with pt/ living together and being able to safely manage pt's meds and finances. Son agreed. SW inquired about POC. Son was not aware but agreeable to participate. SW explained if pt/ are agreeable to son participating, SW will phone son. Son appreciative. Sharon Win, OPAL MICHEL
[2024-06-25 10:00] VITALS: PULSE 86
--- NOTE | 2024-06-25 10:11 | CASEMGMT ---
Social Work IDT met with patient and for care plan meeting. agreed to include son. SW phoned. Discussed patient's progress in PT/OT/SN. Educated to Medicare benefit. Provided with written communication on insurance process and copay coverage during stay. ST evaluated pt and reported to pt being at baseline; severe Dementia. Pt was unable to recall 's name. expressed wanting pt to be able using the rollator vs the standard FWW. CLAMPER to trial safety. SW educated to insurance covering F[place] at [place]. does turn to pt to keep her involved in answering, though, pt is unable to converse appropriately. SW discussed concern with pt and home together, and being able to properly care for pt, i.e. was attempting to take pt to the bathroom upon entry to room for POC meeting. Educated to not assist pt. also admitted to drinking and eating pt's food that she does not eat on her tray. Dietary educated to allow pt to eat and drink her own tray. SW reiterated the importance of pt's nutrition and nursing tracking pt's input; explained if does eat off pt's tray, to notify nursing/hr systems analyst so pt's intake is recorded accurately. SW educated to purchase of guest tray for meals, if is interested. expressed understanding. SW discussed recommendations for AL or SNF at [place], and offered for to move in with pt. adamantly denied placement. SW offered hiring aides in the home to assist. to consider that option. SW offered to transfer pharmacy's to [facility] to allow for prepackaging of pt's meds to ensure accuracy, less room for error with . agreeable. SW stressed the concern IDT has for pt and together in the home. Suggested and son to discuss further and encouraged them to discuss financial protection. and son agreed as mentioned during SW admit assessment that son would be POA and manage the finances, but no paperwork or steps are in place to ensure that formally. SW offered to discuss further with and son the DC plan once pt is closer to [place]. Both in agreement. SW noted walking on unit with rollator, shuffled gait, at a slow pace. Solidfying concerns with being able to safely care for pt at home. SW will continue to follow. Sharon Win, RECREATIONAL THERAPIST HEEL PAINTER
[2024-06-25 11:55] LABS: Bedside Glucose 127 mg/dL (74-106)
[2024-06-25 16:31] LABS: Bedside Glucose 100 mg/dL (74-106)
[2024-06-25 20:35] VITALS: BP 149/59; PULSE 82; RESP 16
[2024-06-25] MEDS: MELATONIN 3 MG TABLET PO (21:13)
[2024-06-25] MEDS: Atorvastatin Calcium 10 MG Tablet PO (21:13)
[2024-06-25 22:50] LABS: Bedside Glucose 57 mg/dL (74-106)
[2024-06-25 22:50] LABS: Bedside Glucose 56 mg/dL (74-106)
[2024-06-25 22:55] LABS: Bedside Glucose 87 mg/dL (74-106)
[2024-06-26] MEDS: Acetaminophen 500 MG Tablet 1000 MG PO ×3 (05:20→21:11)
[2024-06-26] MEDS: Enoxaparin 40 MG/0.4 ML Syringe SC (05:20)
[2024-06-26] MEDS: Cephalexin 250 MG Capsule PO ×3 (05:20→21:11)
[2024-06-26 05:44] VITALS: PULSE 87; RESP 18; O2SAT 97
[2024-06-26 06:10] LABS: Bedside Glucose 159 mg/dL (74-106)
[2024-06-26] MEDS: metFORMIN HCl 1,000 MG Tablet 1000 MG PO ×2 (08:23→17:25)
[2024-06-26] MEDS: glipiZIDE 2.5 MG TAB.ER.24 PO (08:23)
[2024-06-26] MEDS: Losartan Potassium 100 MG Tablet PO (08:24)
[2024-06-26] MEDS: Pantoprazole Sodium 20 MG Tablet PO (08:24)
[2024-06-26] MEDS: Potassium Chloride Oral Tablet 20 MEQ PO ×2 (08:24→17:25)
[2024-06-26] MEDS: DULoxetine Hcl 30 MG Capsule PO (08:24)
[2024-06-26] MEDS: dilTIAZem CD 120 MG Capsule PO (08:24)
[2024-06-26] MEDS: Carvedilol 25 MG Tablet PO ×2 (08:24→21:11)
[2024-06-26] MEDS: Senna/Docusate Sodium 1 Tablet 2 TABLET PO ×2 (08:25→21:11)
[2024-06-26] MEDS: Menthol/Lanolin/Calamine/Znox 113 GM Tube 1 APPLIC TOPICAL ×2 (08:28→21:12)
--- NOTE | 2024-06-26 09:25 | CASEMGMT ---
Social Work SW completed BIMS (10/28) and PHQ-2 () for MDS assessment. Sharon Win MSW IDENTIFICATION OFFICER
--- NOTE | 2024-06-26 10:27 | CASEMGMT ---
Addendum entered by Sharon Win 06/26/24 16:12: SW provided verbal update to Dr. Jacob on below situation to prepare for conversation with pt and . Notified RN. Original Note: Social Work SW heard pt's personal alarm alerting as this worker was walking down the hallway. Presented to room to observe completing the transfer of pt from recliner to w/c and attempting to turn off the PA. SW silenced PA as BATCH MIXER entered room. SW began to inquire about the observation, at which time, was taking a step backwards, began losing his balance, leaning backwards into the rail of the bed, continued losing balance, but moved body to the left away from the bedrail, lowered onto the bed. Both SW and BATCH MIXER ensured his well-being, stabilizing him. SW again asked where pt was going in her w/c. stated, I'm taking her out of here! We're going to the ground floor to get some coffee!. SW explained cannot take pt off unit or transfer/ambulate her without assistance. corrected this worker, referring to the communication board in the pt's room, confirming can tx pt with WW or rollator. SW and BATCH MIXER both were unaware of the permission, but equally expressed concern for pt and safety. SW requested and pt to kindly wait for this worker to verify. aggravated with this worker throughout conversation, having disorganized flow of thinking, though blaming this worker for inserting self into this situation and not wanting to speak with this worker anymore as this worker is not of someone with authority. SW exited room to follow up with therapy. SW spoke to SPRINKLER FITTER APPRENTICE covering caseload for pt's treating SPRINKLER FITTER APPRENTICE on this date. SPRINKLER FITTER APPRENTICE explained the hand off given to her, but confirmed treating SPRINKLER FITTER APPRENTICE did write on the communication board giving permission for to transfer pt. SW spoke with Therapy Meeting Manager of the situation, and Meeting Manager agreed it is not safe for to transfer pt and revoked husbands privileges. SW requested Meeting Manager's assistance in having the conversation with the . Meeting Manager agreed. As SW and Meeting Manager entered TCU, the had patient in the w/c at the nurse's station, exiting toward the elevators. SW approached and pt requesting to stop ambulating, apologizing the pt/ cannot go off the unit. reiterated he wants to talk to someone of authority. KATIE directed to Therapy Meeting Manager. Meeting Manager explained being informed about the situation, and concerned for 's safety d/t near fall, and pt's safety, and explained discontinued ability for to transfer pt. became increasingly aggravated, though having disorganized thinking, difficulty forming thoughtful, full sentences, and not connecting ideas. Staff was present at the nurse's station and called for assistance from security. SW and Meeting Manager continued with attempts to deescalate . Acknowledged difficulty with adhering to the rules of the unit but focusing on ensuring the safety of pt/, and achieving the same goal of improving pt's strength and independence to return home together. explained, we just need time to ourselves. Meeting Manager expressed understanding and offered central lounge as a change in scenery, without the interruptions of being in pt's room, but still in close proximity to staff, if something is needed. refuted. asked to speak to the Dr on the unit. Explained the Dr will round this evening after office hours, and agreed to have Dr speak with and pt. appreciative and agreed to return pt to room. Meeting Manager erased communication on pt's whiteboard. Pt opted to remain in w/c. SW offered to get pt and coffee. Pt answered yes please, with cream but interjected speaking rudely, waving away this worker, you've done enough. I will get it. SW agreed to leave room. Security then arrived on the unit and staff in agreement that has deescalated and did not want security intervening to re-aggravate. KATIE notified nursing of pt being in a w/c w/o PA. Nurse followed up. Written communication left for Dr. Jacob to speak with and pt. -- KATIE collaborated with pai gow manager Management to apprise her of the situation. Both agreed for this worker to contact the son to update, and inquire about availability to call the , and visit pt/ to assist with planning for DC. KATIE phoned Leandro dash. Updated him on above. Son apologetic, but did note his father has always been a grumpy man; this is not related to aging or memory impairment. Son acknowledged safety is an issue and was planning on calling his father today. Son to determine when he can visit soon, agreeable pt/ need assistance in the home. SW informed there are resources available to hire aides in the home, adult day center, transportation, medication assistance, and this worker can provide son/ with resources. SW empathized with son and the difficulty of the situation and home going. Informed son this worker acknowledges will take pt home at [place], and an APS referral will be made to provide additional assistance for safety in the home. Son expressed understanding. SW appreciative. Will continue to follow. OPAL ShinW
[2024-06-26 11:46] LABS: Bedside Glucose 181 mg/dL (74-106)
[2024-06-26 13:56] VITALS: BP 119/50; PULSE 83; RESP 14; TEMP 36.9; O2SAT 95
[2024-06-26 17:06] LABS: Bedside Glucose 66 mg/dL (74-106)
[2024-06-26 18:12] LABS: Bedside Glucose 120 mg/dL (74-106)
[2024-06-26 21:10] VITALS: BP 146/66; PULSE 80; RESP 16
[2024-06-26] MEDS: Atorvastatin Calcium 10 MG Tablet PO (21:11)
[2024-06-26] MEDS: MELATONIN 3 MG TABLET PO (21:11)
[2024-06-26 21:30] LABS: Bedside Glucose 107 mg/dL (74-106)
[2024-06-27] MEDS: Enoxaparin 40 MG/0.4 ML Syringe SC (05:26)
[2024-06-27] MEDS: Cephalexin 250 MG Capsule PO ×3 (05:27→21:04)
[2024-06-27] MEDS: Acetaminophen 500 MG Tablet 1000 MG PO ×3 (05:27→21:03)
[2024-06-27 05:47] VITALS: PULSE 78; RESP 16; O2SAT 96
[2024-06-27 06:17] LABS: Absolute Lymphocyte Count 1.74 X10^3/uL (0.83-4.51); Absolute Neutrophil Count 3.3 X10^3/uL (2.0-7.7); Basophil# 0.03 X10^3/uL; Basophil% 0.5 % (0-1); Eosinophil# 0.29 X10^3/uL; Eosinophils% 4.9 % (0-5); Hematocrit 37.3 % (37-47); Hemoglobin 11.1 g/dL (12.0-15.0); Lymphocyte # 1.74 X10^3/ul (0.83-4.51); Lymphocyte % 29.2 % (19-41); Mean Corp Hgb Conc 29.8 g/dL (32-36); Mean Corpuscular Hgb 25.8 pg (27.0-32.0); Mean Corpuscular Volume 86.7 fL (81-99); Mean Platelet Vol. 10.5 fl (6.2-12.0); Monocyte# 0.56 X10^3/uL; Monocyte% 9.4 % (0-10); NRBC Flagged by Analyzer 0 % (0-5); Neutrophil # 3.29 X10^3/uL (2.7-7.7); Neutrophil % 55.3 % (47-70); Platelet Count 272 K/mm3 (150-450); RBC Distribution Width CV 17.1 % (11.6-14.6); RBC Distribution Width SD 53.7 fl (35.1-43.9)
[2024-06-27 06:28] LABS: Bedside Glucose 124 mg/dL (74-106)
[2024-06-27 06:43] LABS: Anion Gap 3 (5-15); BUN 24 mg/dL (7-18); BUN/Creat Ratio 21.1 RATIO (10-20); Calcium,Total 9.6 mg/dL (8.5-10.1); Chloride 110 mmol/L (98-107); Creatinine, Serum 1.14 mg/dL (0.55-1.02); EST Glomerular Filtration Rate 49 mL/min (>60); Est Glom Filt Rate - Afr Amer 59 mL/min (>60); Estimated Creatinine Clearance 37.97 ml/min; Glucose 111 mg/dL (74-106); Potassium 4.9 mmol/L (3.5-5.1); Sodium Level 140 mmol/L (136-145)
[2024-06-27] MEDS: metFORMIN HCl 1,000 MG Tablet 1000 MG PO ×2 (09:02→17:01)
[2024-06-27] MEDS: glipiZIDE 2.5 MG TAB.ER.24 PO (09:02)
[2024-06-27] MEDS: Losartan Potassium 100 MG Tablet PO (09:03)
[2024-06-27] MEDS: Carvedilol 25 MG Tablet PO ×2 (09:03→21:06)
[2024-06-27] MEDS: Potassium Chloride Oral Tablet 20 MEQ PO ×2 (09:03→17:01)
[2024-06-27] MEDS: dilTIAZem CD 120 MG Capsule PO (09:03)
[2024-06-27] MEDS: DULoxetine Hcl 30 MG Capsule PO (09:03)
[2024-06-27] MEDS: Pantoprazole Sodium 20 MG Tablet PO (09:04)
[2024-06-27] MEDS: Methimazole 5 MG Tablet 2.5 MG PO (09:04)
[2024-06-27] MEDS: Senna/Docusate Sodium 1 Tablet 2 TABLET PO ×2 (09:04→21:03)
[2024-06-27] MEDS: Menthol/Lanolin/Calamine/Znox 113 GM Tube 1 APPLIC TOPICAL ×2 (09:08→21:05)
--- NOTE | 2024-06-27 12:39 | NURSING ---
Mortar Worker Note; MDS for06/27/2024 Complete
[2024-06-27 15:06] VITALS: BP 127/64; PULSE 82; RESP 18; TEMP 37.1; O2SAT 97
--- NOTE | 2024-06-27 16:14 | CASEMGMT ---
Social Work SW reviewed Dr. Jacob's note from conversation with pt and . SW met with pt and at bedside. Inquired how the conversation went with Dr. Jacob, if 's questions were answered, and if he has any other questions. stated he felt the conversation was fair and satisfactory. then genuinely apologized to this worker for his behavior and demeanor toward this worker. SW appreciated the apology. Empathized with the difficulty and change in lifestyle for pt/ on following rules in the facility, not having control over this situation. SW acknowledged and commended 's attentiveness, love and advocation for pt during this stay. SW assured that this worker and IDT have the same goals for pt. SW acknowledged pt and will choose to DC home, but for this worker to assist in connecting him with support to care for pt and household tasks at home to ensure success and safety for both and pt, and reduce risk for further injury of pt or rehospitalization. agreed and stated Dr. Jacob discussed HHC and hiring caregivers, which is agreeable to. SW agreed to those resources and offered to provide list of caregivers for to discuss with son and begin contacting. SW educated that this worker will place referral to skilled HHC agency at [place]. SW inquired if had spoken to son since POC meeting. stated he spoke to him during the day yesterday and is going to contact this evening, and will indeed discuss the caregivers assistance. SW agreed and provided with the list of nonskilled HHC agencies. appreciative and is agreeable to have pt remain in TCU as needed. SW to follow up next week. OPAL Shin
[2024-06-27 21:00] VITALS: BP 117/66; PULSE 85
[2024-06-27] MEDS: Atorvastatin Calcium 10 MG Tablet PO (21:04)
[2024-06-27] MEDS: MELATONIN 3 MG TABLET PO (21:05)
[2024-06-27 21:06] LABS: Bedside Glucose 88 mg/dL (74-106)
[2024-06-28] MEDS: Enoxaparin 40 MG/0.4 ML Syringe SC (05:47)
[2024-06-28] MEDS: Acetaminophen 500 MG Tablet 1000 MG PO ×3 (05:47→20:45)
[2024-06-28] MEDS: Cephalexin 250 MG Capsule PO ×3 (05:48→20:46)
[2024-06-28 06:34] LABS: Bedside Glucose 97 mg/dL (74-106)
[2024-06-28 08:17] VITALS: BP 165/77; PULSE 82; TEMP 36.8; O2SAT 99
[2024-06-28] MEDS: glipiZIDE 2.5 MG TAB.ER.24 PO (08:24)
[2024-06-28] MEDS: Potassium Chloride Oral Tablet 20 MEQ PO ×2 (08:24→16:11)
[2024-06-28] MEDS: metFORMIN HCl 1,000 MG Tablet 1000 MG PO ×2 (08:24→16:11)
[2024-06-28] MEDS: Menthol/Lanolin/Calamine/Znox 113 GM Tube 1 APPLIC TOPICAL ×2 (08:25→20:45)
[2024-06-28] MEDS: Carvedilol 25 MG Tablet PO ×2 (08:25→20:46)
[2024-06-28] MEDS: Losartan Potassium 100 MG Tablet PO (08:25)
[2024-06-28] MEDS: dilTIAZem CD 120 MG Capsule PO (08:25)
[2024-06-28] MEDS: DULoxetine Hcl 30 MG Capsule PO (08:26)
[2024-06-28] MEDS: Pantoprazole Sodium 20 MG Tablet PO (08:26)
[2024-06-28] MEDS: Senna/Docusate Sodium 1 Tablet 2 TABLET PO ×2 (08:26→20:46)
[2024-06-28 12:05] LABS: Bedside Glucose 142 mg/dL (74-106)
[2024-06-28] MEDS: Tuberculin,Purif.prot.deriv. 50 TU/ML Vial 0.1 ML ID (15:12)
[2024-06-28 16:45] LABS: Bedside Glucose 97 mg/dL (74-106)
[2024-06-28] MEDS: MELATONIN 3 MG TABLET PO (20:45)
[2024-06-28] MEDS: Atorvastatin Calcium 10 MG Tablet PO (20:46)
[2024-06-28 22:08] LABS: Bedside Glucose 80 mg/dL (74-106)
[2024-06-29] MEDS: Acetaminophen 500 MG Tablet 1000 MG PO ×3 (05:24→20:13)
[2024-06-29] MEDS: Enoxaparin 40 MG/0.4 ML Syringe SC (05:24)
[2024-06-29 05:53] LABS: Bedside Glucose 94 mg/dL (74-106)
[2024-06-29 06:54] VITALS: PULSE 76; RESP 17
[2024-06-29 08:44] VITALS: BP 131/62; PULSE 89; RESP 16; TEMP 36.8
[2024-06-29] MEDS: glipiZIDE 2.5 MG TAB.ER.24 PO (08:50)
[2024-06-29] MEDS: Potassium Chloride Oral Tablet 20 MEQ PO ×2 (08:50→16:34)
[2024-06-29] MEDS: Menthol/Lanolin/Calamine/Znox 113 GM Tube 1 APPLIC TOPICAL ×2 (08:50→20:15)
[2024-06-29] MEDS: metFORMIN HCl 1,000 MG Tablet 1000 MG PO ×2 (08:50→16:34)
[2024-06-29] MEDS: Pantoprazole Sodium 20 MG Tablet PO (08:51)
[2024-06-29] MEDS: DULoxetine Hcl 30 MG Capsule PO (08:51)
[2024-06-29] MEDS: Carvedilol 25 MG Tablet PO ×2 (08:51→20:14)
[2024-06-29] MEDS: dilTIAZem CD 120 MG Capsule PO (08:51)
[2024-06-29] MEDS: Losartan Potassium 100 MG Tablet PO (08:51)
--- NOTE | 2024-06-29 08:55 | NURSING ---
this nurse spoke to patients about pt meals. has been eating pt meals-unsure how much pt is getting- this nurse explained to pt BS has been running low and importance of the staff getting an accurate picture of what pt is eating- requested staff be notified after pt is done eating so we can document- then can finish meal if he choses to
[2024-06-29 11:34] LABS: Bedside Glucose 214 mg/dL (74-106)
[2024-06-29 17:10] LABS: Bedside Glucose 59 mg/dL (74-106)
[2024-06-29 18:02] LABS: Bedside Glucose 112 mg/dL (74-106)
[2024-06-29] MEDS: Atorvastatin Calcium 10 MG Tablet PO (20:14)
[2024-06-29] MEDS: MELATONIN 3 MG TABLET PO (20:15)
[2024-06-29 20:17] VITALS: BP 124/62; PULSE 92
[2024-06-29 22:00] LABS: Bedside Glucose 90 mg/dL (74-106)
[2024-06-30] MEDS: Acetaminophen 500 MG Tablet 1000 MG PO ×3 (05:22→21:13)
[2024-06-30] MEDS: Enoxaparin 40 MG/0.4 ML Syringe SC (05:22)
[2024-06-30 06:45] LABS: Bedside Glucose 118 mg/dL (74-106)
[2024-06-30] MEDS: Methimazole 5 MG Tablet PO (08:07)
[2024-06-30] MEDS: metFORMIN HCl 1,000 MG Tablet 1000 MG PO (08:07)
[2024-06-30] MEDS: glipiZIDE 2.5 MG TAB.ER.24 PO (08:07)
[2024-06-30] MEDS: Pantoprazole Sodium 20 MG Tablet PO (08:07)
[2024-06-30] MEDS: DULoxetine Hcl 30 MG Capsule PO (08:08)
[2024-06-30] MEDS: Carvedilol 25 MG Tablet PO ×2 (08:08→21:13)
[2024-06-30] MEDS: dilTIAZem CD 120 MG Capsule PO (08:08)
[2024-06-30] MEDS: Menthol/Lanolin/Calamine/Znox 113 GM Tube 1 APPLIC TOPICAL ×2 (08:08→21:14)
[2024-06-30] MEDS: Potassium Chloride Oral Tablet 20 MEQ PO ×2 (08:08→17:47)
[2024-06-30] MEDS: Losartan Potassium 100 MG Tablet PO (08:08)
[2024-06-30 08:16] VITALS: BP 139/67; PULSE 78
[2024-06-30 11:46] LABS: Bedside Glucose 116 mg/dL (74-106)
[2024-06-30 15:19] VITALS: BP 130/68; PULSE 74; RESP 16; TEMP 36.6; O2SAT 99
--- NOTE | 2024-06-30 16:23 | NURSING ---
Pt Blood Sugar 42 pt Awake and able to eat and drink. Pt given apple juice peanut butter and [employer]
[2024-06-30 17:19] LABS: Bedside Glucose 42 mg/dL (74-106)
[2024-06-30 17:19] LABS: Bedside Glucose 88 mg/dL (74-106)
[2024-06-30] MEDS: metFORMIN HCl 500 MG Tablet PO (17:48)
[2024-06-30 21:00] VITALS: BP 158/83; PULSE 87; RESP 16
[2024-06-30] MEDS: Atorvastatin Calcium 10 MG Tablet PO (21:13)
[2024-06-30] MEDS: Senna/Docusate Sodium 1 Tablet 2 TABLET PO (21:13)
[2024-06-30] MEDS: MELATONIN 3 MG TABLET PO (21:13)
[2024-06-30 22:06] LABS: Bedside Glucose 146 mg/dL (74-106)
[2024-07-01] MEDS: Enoxaparin 40 MG/0.4 ML Syringe SC (05:10)
[2024-07-01] MEDS: Acetaminophen 500 MG Tablet 1000 MG PO ×3 (05:10→20:52)
[2024-07-01 05:19] VITALS: PULSE 80; RESP 16; O2SAT 96
[2024-07-01 06:23] LABS: Bedside Glucose 96 mg/dL (74-106)
[2024-07-01] MEDS: Losartan Potassium 100 MG Tablet PO (08:34)
[2024-07-01] MEDS: Carvedilol 25 MG Tablet PO ×2 (08:34→20:51)
[2024-07-01] MEDS: DULoxetine Hcl 30 MG Capsule PO (08:34)
[2024-07-01] MEDS: Methimazole 5 MG Tablet PO (08:34)
[2024-07-01] MEDS: dilTIAZem CD 120 MG Capsule PO (08:35)
[2024-07-01] MEDS: Potassium Chloride Oral Tablet 20 MEQ PO ×2 (08:35→17:38)
[2024-07-01] MEDS: Menthol/Lanolin/Calamine/Znox 113 GM Tube 1 APPLIC TOPICAL ×2 (08:35→20:55)
[2024-07-01] MEDS: Pantoprazole Sodium 20 MG Tablet PO (08:35)
[2024-07-01] MEDS: metFORMIN HCl 500 MG Tablet PO ×2 (08:35→17:38)
[2024-07-01 08:38] VITALS: BP 132/63; PULSE 80
--- NOTE | 2024-07-01 08:46 | MDS.RN ---
Information for the MDS was obtained from review of the clinical record, interview of resident, staff, and direct observation of resident?s care.
[2024-07-01 11:31] VITALS: BMI 25.2
[2024-07-01 11:45] LABS: Bedside Glucose 123 mg/dL (74-106)
[2024-07-01 16:00] VITALS: BP 133/70; PULSE 76; RESP 16; TEMP 36.7; O2SAT 97
--- NOTE | 2024-07-01 16:27 | CHAPLAIN ---
Type of Pastoral Visit ___ Initial Visit _x__ Follow-up Visit ___ On-call Visit ___ General Patient Visit ___ Spiritual Assessment ___ Family Conference ___ Bereavement ___ Rapid Response ___ Code Blue ___ Other (describe below) Pastoral Care Referral From ___ Patient _x__ Family ___ Nurse ___ Physician ___ Salesperson Art Objects ___ Group Insurance Special Agent ___ Other (describe below) Sacrament/Intervention _x__ Active listening ___ Anointing ___ Denominational ___ Bereavement ___ Communion ___ Sara exploration ___ _x__ Life review _x__ Prayer ___ Reconciliation ___ Sacrament of Sick _x__ Supportive presence ___ Wedding ___ Other (describe below) Pastoral Comments this is a follow up visit to the patient and to her spouse that is also present; pt is pleasant but confused as to where she is and what has been happening; pt does state several times that she wants to go home; spouse is more talkative and gives some stories and explanations of the situation; pt offers this shoe cleaner some beverages (did not take) and when the visit is over she asks him to stay a while longer; prayer is given;
[2024-07-01 16:59] LABS: Bedside Glucose 114 mg/dL (74-106)
[2024-07-01] MEDS: hydrOXYzine 10 MG Tablet PO (20:49)
[2024-07-01] MEDS: Atorvastatin Calcium 10 MG Tablet PO (20:51)
[2024-07-01] MEDS: MELATONIN 3 MG TABLET PO (20:51)
[2024-07-01] MEDS: Senna/Docusate Sodium 1 Tablet 2 TABLET PO (20:52)
[2024-07-02] MEDS: Acetaminophen 500 MG Tablet 1000 MG PO ×3 (06:11→19:59)
[2024-07-02] MEDS: Enoxaparin 40 MG/0.4 ML Syringe SC (06:11)
[2024-07-02 06:15] LABS: Bedside Glucose 109 mg/dL (74-106)
[2024-07-02] MEDS: metFORMIN HCl 500 MG Tablet PO ×2 (09:48→17:11)
[2024-07-02] MEDS: Carvedilol 25 MG Tablet PO ×2 (09:48→19:55)
[2024-07-02] MEDS: DULoxetine Hcl 30 MG Capsule PO (09:48)
[2024-07-02] MEDS: Pantoprazole Sodium 20 MG Tablet PO (09:48)
[2024-07-02] MEDS: Menthol/Lanolin/Calamine/Znox 113 GM Tube 1 APPLIC TOPICAL ×2 (09:48→19:53)
[2024-07-02] MEDS: Senna/Docusate Sodium 1 Tablet 2 TABLET PO (09:48)
[2024-07-02] MEDS: Losartan Potassium 100 MG Tablet PO (09:49)
[2024-07-02] MEDS: Potassium Chloride Oral Tablet 20 MEQ PO ×2 (09:49→17:11)
[2024-07-02] MEDS: Methimazole 5 MG Tablet PO (09:49)
[2024-07-02] MEDS: dilTIAZem CD 120 MG Capsule PO (09:49)
[2024-07-02 09:53] VITALS: BP 126/55; PULSE 79; RESP 17; TEMP 36.8; O2SAT 98
[2024-07-02 12:06] LABS: Bedside Glucose 159 mg/dL (74-106)
--- NOTE | 2024-07-02 15:50 | CASEMGMT ---
Addendum entered by Sharon Win 07/04/24 15:21: requesting FWW to [facility], who notified this worker. SW sent referral to [facility] via [facility]. Original Note: Social Work SW phoned son to inquire about any updates between son and father. Son denied, but is planning to call father this evening to confirm travel plans. Son explained he wants to be in town when pt gets discharged. Son can arrive 07/05, and requesting DC 07/06. SW agreed. Then son is off work for the holiday week, and can assist pt/ in the home, and arranging caregivers. SW will coordinate skilled HHC. Son agreed and appreciative. SW spoke with pt and at bedside to discuss DC. SW explained this worker spoke with son, who will call the this evening to confirm travel plans, but explained above conversation. Pt and are agreeable to DC 07/06, hiring caregivers, having son in town, and skilled HHC. SW confirmed still prefers [facility]. SW inquired about rollator. reported he has a rollator of his own at home and pt can use her rollator. and son to transport pt home. SW phoned [facility] PT/OT/SN/BEAL/SW. SW to refer to APS. Plan: DC home with 07/06, [facility] PT/OT/SN/BELA/SW Sharon Win, OPAL MICHEL
[2024-07-02 17:49] LABS: Bedside Glucose 110 mg/dL (74-106)
[2024-07-02] MEDS: MELATONIN 3 MG TABLET PO (19:54)
[2024-07-02] MEDS: Atorvastatin Calcium 10 MG Tablet PO (19:54)
[2024-07-02 21:53] LABS: Bedside Glucose 151 mg/dL (74-106)
[2024-07-03] MEDS: Enoxaparin 40 MG/0.4 ML Syringe SC (05:48)
[2024-07-03] MEDS: Acetaminophen 500 MG Tablet 1000 MG PO ×3 (05:48→20:45)
[2024-07-03 06:31] LABS: Bedside Glucose 119 mg/dL (74-106)
[2024-07-03] MEDS: Potassium Chloride Oral Tablet 20 MEQ PO ×2 (08:17→16:44)
[2024-07-03] MEDS: Senna/Docusate Sodium 1 Tablet 2 TABLET PO ×2 (08:18→20:46)
[2024-07-03] MEDS: Carvedilol 25 MG Tablet PO ×2 (08:18→20:45)
[2024-07-03] MEDS: metFORMIN HCl 500 MG Tablet PO ×2 (08:18→16:44)
[2024-07-03] MEDS: Menthol/Lanolin/Calamine/Znox 113 GM Tube 1 APPLIC TOPICAL ×2 (08:19→20:48)
[2024-07-03] MEDS: Pantoprazole Sodium 20 MG Tablet PO (08:19)
[2024-07-03] MEDS: dilTIAZem CD 120 MG Capsule PO (08:19)
[2024-07-03] MEDS: Losartan Potassium 100 MG Tablet PO (08:19)
[2024-07-03] MEDS: DULoxetine Hcl 30 MG Capsule PO (08:19)
[2024-07-03 08:23] VITALS: BP 125/62; PULSE 91; RESP 16; TEMP 36.7; O2SAT 98
--- NOTE | 2024-07-03 10:05 | MDS.RN ---
MDS pain interview completed.
[2024-07-03 12:07] LABS: Bedside Glucose 220 mg/dL (74-106)
[2024-07-03 17:01] LABS: Bedside Glucose 130 mg/dL (74-106)
--- NOTE | 2024-07-03 19:37 | DS.PCM_ITS ---
Providers Date of Admission: 06/20/24 Primary Care Physician: Dr. Radha Orlando DO Reason For Visit: FALL, RIGHT HIP PAIN, ALTERED MENTAL STATUS Diagnosis Discharge Diagnosis (1) Debility: Status: Acute Code(s): R53.81 - Other malaise (2) Fall: Status: Acute Code(s): W19.XXXA - Unspecified fall, initial encounter (3) Acute kidney injury: Status: Acute Code(s): N17.9 - Acute kidney failure, unspecified (4) Dehydration: Status: Resolved Code(s): E86.0 - Dehydration (5) Urinary tract infection: Status: Acute Code(s): N39.0 - Urinary tract infection, site not specified (6) Acute encephalopathy: Status: Acute Code(s): G93.40 - Encephalopathy, unspecified (7) Right hip pain: Status: Acute Code(s): M25.551 - Pain in right hip (8) Essential (primary) hypertension: Status: Acute Code(s): I10 - Essential (primary) hypertension (9) Hyperlipidemia, unspecified: Status: Acute Code(s): E78.5 - Hyperlipidemia, unspecified (10) Depression: Status: Acute Code(s): F32.A - Depression, unspecified (11) Hyperglycemia due to type 2 diabetes mellitus: Status: Acute Code(s): E11.65 - Type 2 diabetes mellitus with hyperglycemia (12) Hyperthyroidism: Status: Acute Code(s): E05.90 - Thyrotoxicosis, unspecified without thyrotoxic crisis or storm Plan 79 year old female with below past medical history hospitalized for fall, right hip pain, 2/2 urinary tract infection, RICK, dehydration, complicated by encephalopathy, admitted to TCU with debility, here for rehabilitation, strengthening, prior to discharge home with . * Debility - PT/OT. * Pain - Tylenol 1000mg q8, Oxycodone 2.5mg q4 prn pain (4-10). * Bowel - senna/colace 2 tablets bid, Magnesium citrate 300mL daily prn * Adult immunization - Administer pneumonia vaccine, covid vaccine, flu vaccine as appropriate. * DVT prophylaxis - Lovenox 30mg sc daily. * Hyperlipidemia - Atorvastatin 10mg qhs. * Hypertension - Coreg 25mg bid, Diltiazem 120mg daily. * K. Pneumoniae UTI - Cipro 250mg po bid thru 06/28/2024. * Depression - Duloxetine 30mg daily, stable chronic intermediate use, GDR not recommended. * Diabetes Mellitus II - Metformin 1000mg bidcm, Glipizide ER 2.5mge daily. * Insomnia - Melatonin 3mg qhs prn. * Hyperthyroidism - Methimazole 5mg 6 days per week, 2.5mg 1 day per week. * GERD - Pantoprazole 20mg daily. * Hypokalemia - KCL 20meq bidcm. Medications at Discharge Home Medications atorvastatin 10 mg tablet 10 mg PO DAILY CHOLESTEROL 01/08/24 carvedilol 25 mg tablet 25 mg PO BID HEART 01/08/24 diltiazem HCl 120 mg capsule,extended release 24 hr 120 mg PO DAILY BLOOD PRESSURE 01/08/24 duloxetine 30 mg capsule,delayed release 30 mg PO DAILY DEPRESSION 01/08/24 methimazole 5 mg tablet 5 mg PO UD THYROID 01/08/24 omeprazole 20 mg capsule,delayed release 20 mg PO DAILY GERD 01/08/24 melatonin 3 mg tablet 3 mg PO QHS PRN PRN Insomnia #0 tabs 06/20/24 potassium chloride 20 mEq tablet,extended release(part/cryst) 20 meq PO BIDCM supplement #0 tabs 06/20/24 acetaminophen 500 mg tablet 1,000 mg (2 x 500 mg) PO Q8 #0 tabs 07/03/24 losartan 100 mg tablet 100 mg PO DAILY 30 days #30 tabs 07/03/24 metformin 500 mg tablet 500 mg PO BIDCM 30 days #60 tabs 07/03/24 Hospital Course Operations None Procedures None Summary of Care Provided Minutes Spent on Discharge: 35 Hospital Course: 79 year old female with below past medical history hospitalized for fall, right hip pain, 2/2 urinary tract infection, RICK, dehydration, complicated by encephalopathy, admitted to TCU with debility, here for rehabilitation, strengthening, prior to discharge home with . Discharge home with 07/06/2024, [facility] PT/OT/SN/BEAL/SW. Physical Exam Const alert General Appearance: cooperative HEENT normocephalic Eyes PERRL and EOMs intact bilaterally Neck supple, no JVD and no carotid bruits Resp normal respiratory effort, normal air movement and clear to auscultation bilaterally Cardio regular rate and regular rhythm GI normal to inspection, nondistended, normoactive bowel sounds, non-tender and non-distended Extremity normal capillary refill General Extremity: Negative for edema Skin no rashes or lesions noted General Skin Exam: no breakdown Psych affect normal Appearance: appropriate Weight / BMI Weight Weight: 64.592 kg Body Mass Index (BMI) 25.2 ABG / Lab / Microbiology Data 06/27/24 05:38 06/27/24 05:38 Laboratory: Laboratory Results - last 24 hr 07/02/24 21:30: POC Glucose 151 H 07/03/24 06:04: POC Glucose 119 H 07/03/24 11:36: POC Glucose 220 H 07/03/24 16:36: POC Glucose 130 H Microbiology: Microbiology 06/30/24 09:45 Nasal Secretion SARS-CoV-2 Antigen (Rapid) - Final 06/23/24 05:30 Nasal Secretion SARS-CoV-2 Antigen (Rapid) - Final D/C Instructions Discharge Diet: No restrictions Discharge Activity: Return to Normal Activity, May Shower and Use Walker Weight Bearing Status: Weight bearing as tolerated Call your doctor if you observe: Fever of 101 or Higher, Inability to urinate, Inability to have a bowel movement, Shortness of breath, Dizziness, Fainting spells, Swelling in the ankles, Chest pain and Uncontrolled pain DC O2, CPAP, BIPAP Needs Home O2 Discharge instructions: No DC home with Oxygen: No Additional Instructions: Discharge home with 07/06/2024, [facility] PT/OT/SN/BEAL/SW. Meaningful Use Info Meaningful Use Meaningful Use Diagnoses (Choose all that apply): None applicable Ischemic Stroke Statin Dosing Therapy Reference: STATIN DOSE THERAPY REFERENCE: * Patients > 75 years receive moderate or high dose statin therapy. * Patients 75 years or YOUNGER should receive HIGH intensity statin dose unless contraindicated. You will be required to document reason for non-treatment if statin daily dose does not meet guidelines. HIGH DOSE STATIN THERAPY DAILY Atorvastatin > than or = to 40 mg Rosuvastatin > than or = to 20 mg Amlodipine + Atorvastatin > than or = to 2.5/40 mg Ezetimibe + Simvastatin 10/80 mg Simvastatin 80mg Discharge Plan Admission Admit Date/Time: 06/20/24 17:58 Primary Reason for Your Visit: Debility. Attending Provider: Leo Jacob Chi Primary Care Provider: Fast,Radha Instructions Additional Instructions / Restrictions: Discharge home with 07/06/2024, [facility] PT/OT/SN/BEAL/SW. Discharge Orders/Prescriptions Prescriptions: New metformin 500 mg Tablet 500 mg PO BIDCM 30 Days Qty: 60 0RF acetaminophen 500 mg Tablet 1,000 mg PO Q8 Qty: 0 0RF losartan 100 mg Tablet 100 mg PO DAILY 30 Days Qty: 30 0RF Continued melatonin 3 mg Tablet 3 mg PO QHS PRN PRN (Reason: Insomnia) Qty: 0 0RF potassium chloride 20 mEq Tablet,Er Particles/Crystals 20 meq PO BIDCM Qty: 0 0RF methimazole 5 mg tablet 5 mg PO UD Rx Instructions: TAKE ONE TABLET (5 MG) BY MOUTH THREE TIMES A WEEK AND ALSO TAKE 1/2 TABLET (2.5 MG) ONCE A WEEK. diltiazem HCl 120 mg capsule,extended release 24hr 120 mg PO DAILY carvedilol 25 mg tablet 25 mg PO BID atorvastatin 10 mg tablet 10 mg PO DAILY omeprazole 20 mg capsule,delayed release(DR/EC) 20 mg PO DAILY duloxetine 30 mg capsule,delayed release(DR/EC) 30 mg PO DAILY Discontinued cephalexin 250 mg Capsule 250 mg PO Q8 Qty: 0 0RF sennosides-docusate sodium [Stimulant Laxative Plus] 8.6-50 mg Tablet 2 tab PO BID Qty: 0 0RF acetaminophen 500 mg Tablet 1,000 mg PO Q8 Qty: 0 0RF oxycodone 5 mg Tablet 2.5 mg PO Q4H PRN PRN (Reason: Pain Score 4-10) Qty: 0 0RF insulin lispro [Humalog KwikPen Insulin] 100 unit/mL Insulin Pen See Protocol subcut ACHS Qty: 0 0RF Protocol: 4. Sliding Scale Insulin High-Med Dosing Condition: 150-199 mg/dl = 2 units Condition: 200-259 mg/dl = 4 units Condition: 260-324 mg/dl = 6 units Condition: 325-374 mg/dl = 8 units Condition: 375-409 mg/dl = 10 units Condition: 410-449 mg/dl = 11 units Condition: Greater than 449 call physician Protocol Text: Suggested for: - Patients on Total Daily Insulin Dose of 56-80 units - Patient who are known to be insulin resistant or septic HIGH MEDIUM DOSING ALGORITHM glipizide 2.5 mg tablet extended release 24hr 2.5 mg PO DAILY metformin 1,000 mg tablet 1,000 mg PO BID Referrals / Follow Up: Fast,Radha, DO [Primary Care Provider] - Disposition Disposition (needs filled in before D/C Order can be placed): Home Health Service
[2024-07-03 20:40] VITALS: O2SAT 95
[2024-07-03] MEDS: Atorvastatin Calcium 10 MG Tablet PO (20:44)
[2024-07-03] MEDS: MELATONIN 3 MG TABLET PO (20:46)
[2024-07-03 22:28] LABS: Bedside Glucose 265 mg/dL (74-106)
[2024-07-04 05:20] LABS: Absolute Lymphocyte Count 1.58 X10^3/uL (0.83-4.51); Basophil# 0.05 X10^3/uL; Basophil% 0.8 % (0-1); Eosinophil# 0.21 X10^3/uL; Eosinophils% 3.3 % (0-5); Hematocrit 36.1 % (37-47); Hemoglobin 10.9 g/dL (12.0-15.0); Lymphocyte # 1.58 X10^3/ul (0.83-4.51); Lymphocyte % 24.8 % (19-41); Mean Corp Hgb Conc 30.2 g/dL (32-36); Mean Corpuscular Volume 86.2 fL (81-99); Mean Platelet Vol. 10.2 fl (6.2-12.0); Monocyte# 0.55 X10^3/uL; Monocyte% 8.6 % (0-10); NRBC Flagged by Analyzer 0 % (0-5); Neutrophil # 3.96 X10^3/uL (2.7-7.7); Neutrophil % 62.2 % (47-70); Platelet Count 261 K/mm3 (150-450); RBC Distribution Width CV 16.9 % (11.6-14.6); RBC Distribution Width SD 52.9 fl (35.1-43.9); Red Blood Count 4.19 M/mm3 (4.2-5.4); White Blood Count 6.4 K/mm3 (4.4-11.0)
[2024-07-04 05:49] LABS: Anion Gap 3 (5-15); BUN 33 mg/dL (7-18); Calcium,Total 9.7 mg/dL (8.5-10.1); Chloride 111 mmol/L (98-107); Creatinine, Serum 1.18 mg/dL (0.55-1.02); EST Glomerular Filtration Rate 47 mL/min (>60); Est Glom Filt Rate - Afr Amer 57 mL/min (>60); Glucose 169 mg/dL (74-106); Potassium 4.9 mmol/L (3.5-5.1); Sodium Level 139 mmol/L (136-145)
[2024-07-04] MEDS: Enoxaparin 40 MG/0.4 ML Syringe SC (05:56)
[2024-07-04] MEDS: Acetaminophen 500 MG Tablet 1000 MG PO ×3 (05:56→21:26)
[2024-07-04 06:49] LABS: Bedside Glucose 151 mg/dL (74-106)
[2024-07-04 08:13] VITALS: BP 140/69; PULSE 78; RESP 17; TEMP 36.3; O2SAT 96
[2024-07-04] MEDS: dilTIAZem CD 120 MG Capsule PO (08:16)
[2024-07-04] MEDS: Potassium Chloride Oral Tablet 20 MEQ PO ×2 (08:16→16:46)
[2024-07-04] MEDS: Carvedilol 25 MG Tablet PO ×2 (08:16→21:27)
[2024-07-04] MEDS: Menthol/Lanolin/Calamine/Znox 113 GM Tube 1 APPLIC TOPICAL ×2 (08:16→21:22)
[2024-07-04] MEDS: metFORMIN HCl 500 MG Tablet PO ×2 (08:16→16:46)
[2024-07-04] MEDS: Losartan Potassium 100 MG Tablet PO (08:17)
[2024-07-04] MEDS: Senna/Docusate Sodium 1 Tablet 2 TABLET PO ×2 (08:17→21:26)
[2024-07-04] MEDS: Pantoprazole Sodium 20 MG Tablet PO (08:17)
[2024-07-04] MEDS: DULoxetine Hcl 30 MG Capsule PO (08:17)
[2024-07-04] MEDS: Methimazole 5 MG Tablet 2.5 MG PO (08:18)
[2024-07-04 11:32] LABS: Bedside Glucose 197 mg/dL (74-106)
--- NOTE | 2024-07-04 14:36 | CASEMGMT ---
SW completed a BIMS- 01/27 and PHQ 2- 07/17 for MDS assessment. [employer] PRODUCTION PROOFREADER SHAYNA
--- NOTE | 2024-07-04 16:03 | CASEMGMT ---
Social Work SW left for Wolf at [facility] to place referral. Will await return phone call. OPAL ShinW
[2024-07-04 21:25] VITALS: BP 138/63; PULSE 75; RESP 16
[2024-07-04] MEDS: MELATONIN 3 MG TABLET PO (21:26)
[2024-07-04] MEDS: Atorvastatin Calcium 10 MG Tablet PO (21:26)
[2024-07-04 21:43] LABS: Bedside Glucose 192 mg/dL (74-106)
[2024-07-05] MEDS: Acetaminophen 500 MG Tablet 1000 MG PO ×3 (05:32→20:19)
[2024-07-05] MEDS: Enoxaparin 40 MG/0.4 ML Syringe SC (05:32)
[2024-07-05 06:09] LABS: Bedside Glucose 137 mg/dL (74-106)
[2024-07-05] MEDS: Potassium Chloride Oral Tablet 20 MEQ PO ×2 (08:52→16:59)
[2024-07-05] MEDS: metFORMIN HCl 500 MG Tablet PO ×2 (08:52→16:59)
[2024-07-05] MEDS: dilTIAZem CD 120 MG Capsule PO (08:53)
[2024-07-05] MEDS: Losartan Potassium 100 MG Tablet PO (08:53)
[2024-07-05] MEDS: DULoxetine Hcl 30 MG Capsule PO (08:54)
[2024-07-05] MEDS: Carvedilol 25 MG Tablet PO ×2 (08:54→20:18)
[2024-07-05] MEDS: Pantoprazole Sodium 20 MG Tablet PO (08:54)
[2024-07-05] MEDS: Menthol/Lanolin/Calamine/Znox 113 GM Tube 1 APPLIC TOPICAL ×2 (08:55→20:18)
[2024-07-05] MEDS: Senna/Docusate Sodium 1 Tablet 2 TABLET PO ×2 (08:55→20:17)
[2024-07-05 09:01] VITALS: BP 138/66; PULSE 83; O2SAT 97
[2024-07-05 12:00] LABS: Bedside Glucose 238 mg/dL (74-106)
[2024-07-05 16:00] VITALS: RESP 22; TEMP 36.2
--- NOTE | 2024-07-05 16:24 | NURSING ---
CAUGHT WITH PT IN FRONT OF CLOSET HELPING PT GET CLOTHES OUT FOR TOMORROW. EDUCATED THEM BOTH ON CALLING FOR HELP IF PT NEEDS ANY THING. AND STATED IF PT FALLS SHE MAY GET HURT AND NOT BE ABLE TO GO HOME TOMORROW. BOTH STATED THEY UNDER STOOD BUT THIS NURSE FEELS THEY BOTH DO NOT,PT DOES HAVE DEMENTIA. NOT SURE ABOUT .
[2024-07-05 16:53] LABS: Bedside Glucose 206 mg/dL (74-106)
[2024-07-05] MEDS: hydrOXYzine 10 MG Tablet PO (20:17)
[2024-07-05] MEDS: Atorvastatin Calcium 10 MG Tablet PO (20:18)
[2024-07-05] MEDS: MELATONIN 3 MG TABLET PO (20:18)
[2024-07-05 21:27] LABS: Bedside Glucose 231 mg/dL (74-106)
[2024-07-06] MEDS: Acetaminophen 500 MG Tablet 1000 MG PO (06:11)
[2024-07-06] MEDS: Enoxaparin 40 MG/0.4 ML Syringe SC (06:11)
[2024-07-06 06:39] LABS: Bedside Glucose 143 mg/dL (74-106)
[2024-07-06] MEDS: metFORMIN HCl 500 MG Tablet PO (08:10)
[2024-07-06] MEDS: Potassium Chloride Oral Tablet 20 MEQ PO (08:11)
[2024-07-06] MEDS: Menthol/Lanolin/Calamine/Znox 113 GM Tube 1 APPLIC TOPICAL (08:12)
[2024-07-06] MEDS: Carvedilol 25 MG Tablet PO (08:14)
[2024-07-06] MEDS: dilTIAZem CD 120 MG Capsule PO (08:14)
[2024-07-06] MEDS: DULoxetine Hcl 30 MG Capsule PO (08:15)
[2024-07-06] MEDS: Losartan Potassium 100 MG Tablet PO (08:15)
[2024-07-06] MEDS: Pantoprazole Sodium 20 MG Tablet PO (08:16)
[2024-07-06 08:28] VITALS: BP 156/69; PULSE 86; RESP 16; TEMP 36.4; O2SAT 98
--- NOTE | 2024-07-07 08:22 | CASEMGMT ---
Social Work Received return call from Wolf at [facility] provided referral. Wolf plans to open the case. OPAL ShinW
== END 2024-07-06 09:40 | disposition home health service (06) | DRG 690 ==
PROVIDERS: Admitting Provider Family Medicine Geriatric Medicine; PCP Internal Medicine; Referring Provider Family Medicine Geriatric Medicine; Visit Provider Family Medicine Geriatric Medicine
DX: N39.0 Urinary tract infection, site not specified (principal); N17.9 Acute kidney failure, unspecified; B96.1 Klebsiella pneumoniae [K. pneumoniae] as the cause of diseases classified elsewhere; E11.65 Type 2 diabetes mellitus with hyperglycemia; F03.90 Unspecified dementia, unspecified severity, without behavioral disturbance, psychotic disturbance, mood disturbance, and anxiety; F32.A Depression, unspecified; I10 Essential (primary) hypertension; E05.90 Thyrotoxicosis, unspecified without thyrotoxic crisis or storm; Z79.4 Long term (current) use of insulin; E78.5 Hyperlipidemia, unspecified; K21.9 Gastro-esophageal reflux disease without esophagitis; E87.6 Hypokalemia; F41.9 Anxiety disorder, unspecified; G47.00 Insomnia, unspecified; Z79.899 Other long term (current) drug therapy; S72.141G Displaced intertrochanteric fracture of right femur, subsequent encounter for closed fracture with delayed healing; X58.XXXD Exposure to other specified factors, subsequent encounter; Z91.81 History of falling; Z79.84 Long term (current) use of oral hypoglycemic drugs
CPT/HCPCS: 36415; 80048; 82962; 85025; 87811; 92523; 97110; 97116; 97162; 97166; 97530; 97535; 97802

== ENCOUNTER → 2024-08-19 | Outpatient (CLI) | payer MEDICARE, BC, SELFPAY ==
[2024-08-19 15:53] LABS: BNP,B-Type NATRIURETIC PEPTIDE 220.1 pg/mL (0-100)
== END | disposition home or self-care (01) ==
LOC: MTLAB 13:06
PROVIDERS: PCP Internal Medicine; Referring Provider Internal Medicine; Visit Provider Internal Medicine
DX: R06.02 Shortness of breath (principal); R60.9 Edema, unspecified
CPT/HCPCS: 36415; 83880

== ENCOUNTER 2025-02-01 13:22 | Emergency (ER) | payer MEDICARE, BC, SELFPAY ==
[2025-02-01] VITALS (18 sets, daily range): BP systolic 83–119; BP diastolic 49–93; PULSE 57–74; RESP 15–118; TEMP 36.4–36.6; O2SAT 98–100; BMI 26.6
--- NOTE | 2025-02-01 14:06 | RAD_ITS ---
PROCEDURE: CHEST PA AND LATERAL 02/01/2025 REASON FOR EXAM: WEAKNESS TECHNIQUE: CHEST PA AND LATERAL COMPARISON: 06/17/2024 FINDINGS: No consolidation or edema. No effusion. Normal mediastinum RAD/Chest PA and Lateral IMPRESSION: Negative chest Reading [facility]
--- NOTE | 2025-02-01 14:06 | EKG12_ITS ---
Test Reason : GENERAL Blood Pressure : */* mmHG Vent. Rate : 71 BPM Atrial Rate : 71 BPM P-R Int : 202 ms QRS Dur : 84 ms QT Int : 388 ms P-R-T Axes : 33 6 41 degrees QTcB Int : 421 ms Normal sinus rhythm Normal ECG Confirmed by Charlie Maravilla ([id number]), news copy editor SULMA HADDAD ([id number]) on 02/03/2025 1:09:15 PM Referred By: Corey Amador Confirmed By: Charlie Maravilla
--- NOTE | 2025-02-01 14:06 | CT_ITS ---
PROCEDURE: BRAIN/HEAD WITHOUT CONTRAST 02/01/2025 REASON FOR EXAM: ALOC TECHNIQUE: BRAIN/HEAD WITHOUT CONTRAST Coronal and Sagittal reconstruction series were provided. One or more dose reduction techniques were used (e.g., Automated exposure control, adjustment of the mA and/or kV according to patient size, use of iterative reconstruction technique. RADIATION DOSE SUMMARY: CTDlvol: 45 mGy DLP: 780 mGycm COMPARISON: 06/17/2024 FINDINGS: Vascular calcification. Mild atrophy. Mild periventricular chronic small- vessel disease. Prior lacunar infarct left basal ganglia. No intracranial mass, hemorrhage or edema. CT/Brain/Head without Contrast IMPRESSION: No acute abnormality Reading [facility]
--- NOTE | 2025-02-01 14:08 | EX.ED.DYSGE1 ---
HPI History of Present Illness Chief Complaint: Wound Informant: patient, spouse/S.O. and family (Son at bedside with the patient's .) Onset/Context/Timing Onset: Days Context: Gradual Onset Timing: Continuous Current Severity: Moderate Maximum Severity: Moderate Narrative Narrative: 79-year-old female history of hypothyroidism, diabetes hypertension. According to her and son patient's had a decline over the last several days. She lowered herself to the ground and was unable to get up and laid on the floor for at least a day maybe several days. Has had decreased oral intake. No vomiting. Loose stools. No fever. Son came in from [place] when he got there his mom did not land on the floor for hours if not much longer. No recent hospitalization. Prior similar symptoms: No Recent Illness/Hospitalization: No [facility] Medical History Hypothyroidism Diabetes GERD (gastroesophageal reflux disease) Non-smoker Hypertension Home Medications ?Medication ?Instructions ?Recorded ?Last Taken ?Type atorvastatin 10 mg tablet 10 mg PO DAILY CHOLESTEROL 01/08/24 02/01/25 History carvedilol 25 mg tablet 25 mg PO BID HEART 01/08/24 02/01/25 History diltiazem HCl 120 mg 120 mg PO DAILY BLOOD PRESSURE 01/08/24 02/01/25 History capsule,extended release 24 hr duloxetine 30 mg capsule,delayed 30 mg PO DAILY DEPRESSION 01/08/24 02/01/25 History release methimazole 5 mg tablet 5 mg PO UD THYROID 01/08/24 Unknown History omeprazole 20 mg capsule,delayed 20 mg PO DAILY GERD 01/08/24 02/01/25 History release melatonin 3 mg tablet 3 mg PO QHS PRN PRN Insomnia #0 06/20/24 Unknown Rx tabs potassium chloride 20 mEq 20 meq PO BIDCM supplement #0 tabs 06/20/24 02/01/25 Rx tablet,extended release(part/cryst) acetaminophen 500 mg tablet 1,000 mg (2 x 500 mg) PO Q8 #0 tabs 07/03/24 Unknown Rx losartan 100 mg tablet 100 mg PO DAILY 30 days #30 tabs 07/03/24 02/01/25 Rx amlodipine 5 mg tablet 5 mg PO DAILY 02/01/25 02/01/25 History furosemide 40 mg tablet 40 mg PO DAILY 02/01/25 02/01/25 History glipizide 5 mg tablet 2.5 mg PO DAILY 02/01/25 02/01/25 History ibuprofen 200 mg tablet (Advil) 200 mg PO Q8H PRN fever or pain 02/01/25 02/01/25 History metformin 1,000 mg tablet 1,000 mg PO BID 02/01/25 02/01/25 History Allergy/AdvReac Type Severity Reaction Status Date / Time Sulfa (Sulfonamide Allergy Intermediate NEEDS Verified 02/01/25 13:39 Antibiotics) FOLLOW-UP Surgical History History of appendectomy History of cholecystectomy Social History household members: spouse Smoking Status: Never smoker alcohol intake: never substance use type: does not use ROS ROS ED ROS Narrative Generalized weakness. Confusion. Constitutional Constitutional ED: Denies chills or fever(s) Eyes Eyes: Denies blurry vision ENT ENT ED: Denies ear pain Cardiovascular Cardiovascular: Denies chest pain Respiratory/Chest Respiratory/Chest: Denies cough or dyspnea Gastrointestinal Gastrointestinal: Reports diarrhea; Denies abdominal pain Genitourinary Genitourinary ED: Denies dysuria or hematuria Musculoskeletal Musculoskeletal: Denies arthralgias or back pain Integumentary Denies abscess or Abrasions Neurologic Neurologic: Denies headache(s) Psychiatric Psychiatric: Denies anxiety Endocrine Endocrinology: Denies cold intolerance Hematologic/Lymphatic Hematologic/Lymphatic: Reports none Allergic/Immunologic Allergic/Immunologic ED: Denies mouth swelling, tongue swelling or urticaria EXAM Physical Exam Narrative Exam Narrative: 79-year-old female lying in bed vital signs are stable she is a borderline pressure 103/53. Pulse ox 100% on room air no signs hypoxia. Son and are at bedside. She is in no acute distress. H EENT exam pupils round reactive light. Mild dry mucous membranes. No signs of trauma to her face or scalp. Nontender no hematoma. C-spine nontender. Trachea midline. Back nontender no bruising. Lungs clear to auscultation bilaterally. Heart regular rhythm rate about 70 no murmur. Chest wall ribs nontender. Abdomen soft nontender. Moving all 4 extremities. Dorsi plantarflexion intact. Normal ase master mechanic strength. She has a wound on her right hip with surrounding redness consistent with early cellulitis and infection. There is no pus. There is no blistering. There is breakdown of the skin. There is no shortening or rotation of her hip. She is able to flex and extend the right hip. There is no septic joint. Neurologically she is awake. Her eyes are open. She will follow commands. She does not know the month, year or president [facility] states. Const Vital Signs: 02/01/25 13:25 02/01/25 13:37 02/01/25 14:29 Temperature 97.7 F L 97.7 F L Temperature Source Oral Oral Pulse Rate 74 71 70 Respiratory Rate 16 16 16 Blood Pressure 103/53 L 98/54 L 113/64 Blood Pressure Mean 69 68 80 Pulse Ox 100 98 98 Oxygen Delivery Method Room Air Room Air 02/01/25 14:37 02/01/25 15:00 Temperature 97.6 F L 97.9 F Temperature Source Oral Oral Pulse Rate 66 66 Respiratory Rate 17 20 H Blood Pressure 83/54 L 88/49 L Blood Pressure Mean 63 62 Pulse Ox 99 100 Oxygen Delivery Method Room Air Room Air Positive well developed; Negative for cachectic, contractures or unkempt General Appearance ED: well developed and NAD; Negative for unkempt, cachectic, contractures, cyanotic, diaphoretic or pallor Nutritional Appearance: Negative for cachectic HEENT Reports dry mucous membranes Mouth ED: Yes dry mucous membranes Mouth: dry mucous membranes Eyes PERRL and EOMs intact bilaterally General Eye ED: Negative for pale conjunctiva or scleral icterus Neck no lymphadenopathy, supple and no JVD Chest Wall inspection of chest normal and palpation of chest normal Resp normal respiratory effort and clear to auscultation bilaterally Cardio regular rate, regular rhythm, S1 normal heart sound, S2 normal heart sound and no murmurs GI normal to inspection, nondistended, normoactive bowel sounds, non-tender, non-distended and no masses Auscultation: normoactive bowel sounds Palpation: soft; Negative for tender, guarding or rebound tenderness present Back/Spine no CVA tenderness General Back: Negative for CVA tenderness Cervical Spine: Negative for cervical spine tenderness Thoracic Spine / Upper Back: Negative for thoracic spinal tenderness or paraspinal muscle tenderness Lumbar Spine / Lower Back: Negative for lumbar spinal tenderness Extremity Negative for normal to inspection Extremity Narrative: While in the right hip. Surrounding redness possibly early cellulitis. No pus. No blistering. Normal range of motion of the hip. No shortening or rotation. Mildly tender. General Extremety ED: Yes tenderness Neuro No oriented x3 and CN's II-XII intact bilaterally Sensorium / Orientation: alert and lethargic Motor Exam: general weakness Psych mental status grossly normal Appearance: Negative for unkempt Skin No no rashes or lesions noted, No no wounds and skin turgor normal Skin Narrative: Right hip wound. Mild cellulitis. Mildly tender. Breakdown of the skin. General Skin Exam: Negative for jaundice or pallor Lesions: No lesion noted Rashes: rashes noted Wounds: wounds noted MDM MDM MDM Narrative Medical decision making narrative: As needed. 79-year-old female generalized weakness with altered mental status. She went down at home and was unable to stand. She will need to be admitted to the hospital. CAT scan of her brain due to altered mental status this may be from dementia or infection. She has a wound on her right hip that appears to be early infection with cellulitis. She also may be dehydrated and could even have rhabdo due to her laying on the floor at home for probably more than a day. Workup with CT chest x-ray and EKG. Labs. IV fluids. IV Zosyn. Repeat exam patient is sitting upright in bed. She is hypotensive but she is tolerating it well. She is receiving her first liter of fluid which was ordered initially I have ordered a second. Hospitalist is on page for admission. No significant change in her exam. The wound on her right hip has been no significant change. There is a breakdown of skin with some mild cellulitis around it. There is no crepitus. There is no lymphangitic streaking. There is no necrotic skin. History & Record Review Discussion w/independent historian: Patient and Family Additional record(s) reviewed:: Prior inpatient record, Prior outpatient record, Prior ED visit and Prior labs Lab Data Attestation: I reviewed the patient's lab results. Lab results narrative: CBC shows a white count 8 H&H 11.4 and 33.7. Platelets 286. Electrolytes show sodium 131. Gap 14. BUN and creatinine are 53 and 1.7 consistent with dehydration. Glucose 255. Lactic acid 2.7. Liver enzymes unremarkable. CPK was 80. Urinalysis shows 10-25 white cells 5-10 epithelial cells 3+ bacteria. No nitrites. This was a cath specimen Labs are consistent with prior. Labs: Laboratory Results - last 24 hr 02/01/25 02/01/25 13:54 14:24 WBC 8.0 RBC 4.10 L Hgb 11.4 L Hct 33.7 L MCV 82.2 MCH 27.8 MCHC 33.8 RDW Std Deviation 37.4 RDW Coeff of Carmen 12.5 Plt Count 286 MPV 10.2 Immature Gran % (Auto) 0.400 Neut % (Auto) 73.1 H Lymph % (Auto) 17.7 L [place] % (Auto) 6.1 Eos % (Auto) 2.1 Baso % (Auto) 0.6 Absolute Neuts (auto) 5.9 Absolute Lymphs (auto) 1.42 Nucleated RBC % 0 Sodium 131 L Potassium 4.8 Chloride 95 L Carbon Dioxide 20.8 L Anion Gap 14 BUN 53 H Creatinine 1.70 H Estim Creat Clear Calc 25.72 L Est GFR (MDRD) Non-Af 31 L BUN/Creatinine Ratio 31.2 H Glucose 255 H Lactic Acid 2.7 H* Calcium 10.3 Total Bilirubin 0.29 AST 20 ALT 12 Alkaline Phosphatase 152 H Total Creatine Kinase 80 Total Protein 6.9 Albumin 3.4 Globulin 3.4 Albumin/Globulin Ratio 1.0 Urine Color Yellow Urine Clarity Cloudy Urine pH 5.0 Ur Specific Leonard 1.020 Urine Protein 15 H Urine Glucose (UA) 250 H Urine Ketones 5 H Urine Occult Blood 10 H Urine Nitrite Negative Urine Bilirubin Negative Urine Urobilinogen Normal Ur Leukocyte Esterase 500 H Urine RBC 0 SEEN Urine WBC 10-25 SEEN Ur Squamous Epith Cells 5-10 SEEN Ur Transition Epith Cell 0-5 SEEN Urine Bacteria 3+ Urine Mucus 0 SEEN Radiography Chest X-Ray - ED: 2 View, Read by ED Physician, Heart, Lungs, Mediastinum, Bony Structures, No Acute Disease and Chronic Changes Diagnostic Testing: Clinical Impression(s) from Imaging Studies Brain CT 02/01/25 14:06 IMPRESSION: No acute abnormality Reading Location: [facility] Chest X-Ray 02/01/25 14:06 IMPRESSION: Negative chest Reading Location: [facility] Chest x-ray, 2 views, interpreted by myself shows no acute abnormality. Chronic changes. No pneumonia. No effusion. No significant cardiomegaly. Rhythm Strip Rhythm Strip: Sinus Rhythm Rate: 71 Ectopy: None EKG Initial EKG: Attestation: I personally reviewed and interpreted this EKG as follows: Interpretation: Sinus Rhythm and No Acute Injury Pattern Comments: Normal sinus rhythm rate of 71 no acute signs of HI or ischemia. Critical Care Time Critical Care Time: Yes Critical care time (excluding procedures): 30-74 minutes, Including time spent:, Discussing w/Patient &/or Family/Fraud Analyst, Discussing w/Consultants, Arranging Admission or Transfer, Performing Direct Patient Care at Bedside and - (33 minutes) Discharge Plan Dx/Rx/DC Orders Clinical Impression: Debility, Generalized weakness, Unable to ambulate, Wound cellulitis, Acute dehydration, Acute hypotension, History of diabetes mellitus, Acute kidney injury Disposition Disposition: Acute Care Hospital [facility]
[2025-02-01 14:15] LABS: Hematocrit 33.7 % (37-47); Hemoglobin 11.4 g/dL (12.0-15.0); Immature Granulocytes Count 0.030 X10^3/uL (0.0-0.0); Mean Corp Hgb Conc 33.8 g/dL (32-36); Mean Corpuscular Volume 82.2 fL (81-99); Mean Platelet Vol. 10.2 fl (6.2-12.0); NRBC Flagged by Analyzer 0 % (0-5); Platelet Count 286 K/mm3 (150-450); RBC Distribution Width CV 12.5 % (11.6-14.6); RBC Distribution Width SD 37.4 fl (35.1-43.9); Red Blood Count 4.10 M/mm3 (4.2-5.4); White Blood Count 8.0 K/mm3 (4.4-11.0)
[2025-02-01 14:29] LABS: Mucous, Urine 0 SEEN /hpf (<or=2+); Red Blood Cells-Urine 0 SEEN /hpf (0-5)
[2025-02-01 14:35] LABS: Color, Urine Yellow (Yellow); Glucose, Dipstick 250 mg/dl (Normal); Ketone-Dipstick 5 mg/dl (Negative); Leukocyte Esterase-Dipstick 500 /ul (Negative); Nitrite-Dipstick Negative (Negative); Occult Blood-Urine 10 /ul (Negative); Protein-Dipstick 15 mg/dl (Negative); Specific Gravity, Urine 1.020 (1.002-1.030); Urine Bilirubin Dipstick Negative (Negative)
--- OUTSIDE RECORDS SUMMARY | 2025-02-01 14:35 | XMS RPT_ITS | CCD ---
Author Organization [facility] Care Team Providers Care Physical Therapy Manager Name Role Phone Christy Leonard [facility] Un[facility] Un available Ana England MD Unavailable Unavailable Primary Care Provider UnavailANNIE Mcneil Attending Unavail able SELF, SELF Referring Unavailable JAIME CHAMBERS II Attending Unavailable NATIVIDAD RAMIREZ Admitting Unavailable CONSULT, NEUROLOGY Consulting Unavailable SELF, SELF Referring Unavailable Fast DO, Julieta A Unavailable Fast DO, Julieta A Primary Care Provider MASCI, ADAN A Referring Unavailable FAST, JULIETA A Primary Care Unavailable MASCI, ADAN A Referring Unavailable MASCI, ADAN A Attending Unavailable TERESSA BRENNAN Attending Unavailable FAST, JULIETA A Primary Care Unavailable FAST, JULIETA A Primary Care Unavailable MASCI, ADAN A Referring Unavailable FAST, JULIETA A Primary Care Unavailable MASCI, ADAN A Referring Unavailable FAST, JULIETA A Primary Care Unavailable MASCI, ADAN A Referring Unavailable FAST, JULIETA A Primary Care Unavailable MASCI, ADAN A Referring Unavailable FAST, JULIETA A Primary Care Unavailable Bc Zeng Admitting Unavailable Victor Hugo Dyson Consulting Unavailable Fast, Julieta Primary Care Unavailable Ventura De Leon Attending Unavailable Adeli, Amir Consulting Unavailable Hinduja, Karly Consulting Unavailable Wolf Heaven Consulting Unavailable Zha, Alana Consulting Unavailable Tootie, Ortiz Consulting Unavailable Vy, Tosha Consulting Unavailable Jair Beard Consulting Unavailable Jose Paige Consulting Unavailable Fabrice Duenas Consulting Unavailable Mecca Braun Consulting Unavailable Danielito Betancourt Consulting Unavailable Mayela Viramontes Consulting Unavailable Eleni Perez Consulting Unavailable Alison Etienne Consulting UnavailIsrael Jain Consulting Unavailable Liyah Tolentino Consulting Unavailable Margarito Walters Consulting Unavailable Veronica Stubbs Consulting Unavailable Gracie Hermosillo Consulting Unavailable Gracy Alas Consulting Unavailable Ad Chapa Consulting Unavailable Norma Brooke Consulting Unavailable KRISTY DORANTES Consulting Unavailable Shira, Leonidas Consulting Unavailable Keri, Maegan Consulting Unavailable Bc Zeng Consulting Unavailable Martin Banuelos Consulting Unavailable Arnold, Kasia Admitting Unavailable Fast, Julieta Primary Care Unavailable Theresa Arnoldge Consulting Unavailable Guy Frausto Attending Unavailable Martin Banuelos Consulting Unavailable Fast, Julieta Primary Care Unavailable Cecil, Leo Chi Attending Unavailable Cecil, Leo Chi Referring Unavailable Cecil, Leo Chi Admitting Unavailable Arnold, Kasia Attending Unavailable Fast, Julieta Primary Care Unavailable Arnold, Kasia Consulting Unavailable Clayton, Kasia Admitting Unavailable Guy Frausto Attending Unavailable Martin Banuelos Consulting Unavailable Guy Frausto Consulting Unavailable Bc Zeng Attending Unavailable Bc Zeng Admitting Unavailable Victor Hugo Dyson Consulting Unavailable Fast, Julieta Primary Care Unavailable Adedexter, Charmainer Consulting Unavailable Karly De Souza Consulting Unavailable Heaven Bloom Consulting Unavailable Desiree, Alana Consulting Unavailable TootieOrtiz castillo Consulting Unavailable Vy, Tosha Consulting Unavailable BitJair anton Consulting Unavailable Jose Paige Consulting Unavailable Fabrice Duenas Consulting Unavailable Mecca Braun Consulting Unavailable Danielito Betancourt Consulting Unavailable Mayela Viramontes Consulting Unavailable Eleni Perez Consulting Unavailable Jaimie, Alison Cesar Consulting UnavailIsrael Jain Consulting Unavailable Tolentino, Ramgeorgiana Consulting Unavailable Margarito Walters Consulting Unavailable Veronica Stubbs Consulting Unavailable Gracie Hermosillo Consulting Unavailable Gracy Alas Consulting Unavailable Ad Chapa Consulting Unavailable oNrma Brooke Consulting Unavailable KASIA, WAGNER Consulting Unavailable Shira, Leonidas Consulting Unavailable Keri, Maegan Consulting Unavailable Bc Zeng Consulting Unavailable Ventura De Leon Attending Unavailable Martin Banuelos Consulting Unavailable Moises, Ventura Consulting Unavailable Fast, Julieta Primary Care Unavailable Rebecca Kaye Attending Unavailable Fast, Julieta Primary Care Unavailable Fast, Julieta Attending Unavailable Fast, Julieta Referring Unavailable Fast, Julieta Primary Care Unavailable Adan Perez Attending Unavailable Fast, Julieta Primary Care Unavailable Adan Perez Referring Unavailable Adan Perez Attending Unavailable Fast DO, Dr. Garcia Primary Care Provider [phone] Darion SINGER, Dr. Garcia Attending Provider Fast DO, Dr. Garcia Referring Provider [phone] Allergies Allergy Classification Reported Allergen(s) Allergy Type Date of Onset Reaction(s) Facility (12 sources) Sulfonamides (Antibiotic) Propensity to adverse reactions to drug 4 Itching [facility] (3 sources) Sulfonamides (Antibiotic); Translations: [SULFA (SULFONAMIDE ANTIBIOTICS)] Propensity to adverse reactions to drug (disorder) 4 NEEDS FOLLOW-UP [facility] Repository Comment on above: spouse does not know reaction Medications Current Medications Medication Drug Class(es) Dates Sig (Normalized) Sig (Original) acetaminophen 500 mg oral tablet (7 sources) Start: 06-20-2024 End: 07-03-2024 take 2 tablets by mouth every eight hours Acetaminophen 500 mg Tablet Active 1000 mg PO EVERY 8 HOURS 0 July 03, 2024 1:00am Start: 01-30-2024 take 650 mg by mouth every six hours as needed Acetaminophen 160 MG/5ML Solution Take 20.3 mL by mouth every 6 hours as needed for Moderate Pain. 01/30/2024 Active Start: 01-30-2024 take 650 mg by mouth every six hours as needed Start: 01-11-2024 End: 01-19-2024 take 650 mg by mouth every six hours as needed take 650 mg rectal r oute every four hours as needed Acetaminophen 650 MG Suppository Insert 1 suppository rectally every 4 hours as needed for Mild Pain. Do not exceed 4gm in 24 hrs Active ALUMINUM & MAGNESIUM HYDROXIDE PO (1 source) take 30 mL by mouth every four hours as needed ALUMINUM & MAGNESIUM HYDROXIDE PO Take 30 mL by mouth every 4 hours as needed for Other (GI distress). 225-200mg/5ml Active aspirin 81 mg delayed release oral tablet (1 source) Platelet Aggregation Inhibitor, Nonsteroidal Anti-inflammatory Drug take 1 tablet by mouth once daily aspirin, enteric coated (ASPIRIN, ENTERIC COATED) 81 mg EC tablet Take 81 mg by mouth once daily. Active atorvastatin 10 mg oral tablet (15 sources) HMG-CoA Reductase Inhibitor Start: 01-06-20 End: 01-30-20 take 1 tablet by mouth once daily Atorvastatin 10 mg tablet Active 10 mg PO DAILY January 08, 2024 12:00am carvedilol 12.5 mg oral tablet (17 sources) alpha-Adrenergic Renetta, beta-Adrenergic Renetta Start: 01-30-20 take 1 tablet by mouth twice daily carveDILOL 12.5 MG tablet Take 1 tablet by mouth 2 times daily. 01/30/2024 Active Start: 01-23-2024 End: 01-30-2024 Start: 10-11-2023 End: 01-30-2024 take 1 tablet by mouth twice daily Carvedilol 25 mg tablet Active 25 mg PO TWICE A DAY January 08, 2024 12:00am cholecalciferol 0.125 mg oral tablet (1 source) Vitamin D take 1 tablet by mouth once daily cholecalciferol (VITAMIN D-3) 5,000 unit tab Take 5,000 Units by mouth once daily. Active Dextrose, Diabetic Use, (GLUCOSE PO) (1 source) take 1 dose by mouth once as needed Dextrose, Diabetic Use, (GLUCOSE PO) Take 1 Dose by mouth once. As needed for hypoglycemic episode Active DULoxetine 30 mg delayed release oral capsule (14 sources) Serotonin and Norepinephrine Reuptake Inhibitor Start: End: take 1 capsule by mouth once daily Duloxetine 30 mg capsule,delayed release(DR/EC) Active 30 mg PO DAILY January 08, 2024 12:00am Glucagon, rDNA, (GLUCAGON EMERGENCY IJ) (1 source) Glucagon, rDNA, (GLUCAGON EMERGENCY IJ) Inject 1 mL as directed. As needed for symptomatic hypoglycemia not responsive to oral intervention symptomatic hypoglycemia no responsive to oral intervention. Active 1000 ml glucose 500 mg/ml injection (4 sources) Start: glucose 40 % gel Take 15 g by mouth As directed PRN. 01/30/2024 Active Start: 01-30-2024 Dextrose 50% i njection 15-50 mL by Intravenous route As directed PRN. 01/30/2024 Active Start: 01-30-2024 Start: 01-30-2024 guaiFENesin (1 source) take 10 mL by mouth every four hours as needed GUAIFENESIN PO Take 10 mL by mouth every 4 hours as needed for Other (cough congestion). Active 3 ml insulin glargine 100 unt/ml pen injector (2 sources) Insulin Analog Start: 07-17-202 4 inject 7 [IU] by subcutaneous injection at bedtime Lantus SoloStar 100 UNIT/ML Solution Pen-injector injection Inject 7 Units under the skin at bedtime. 01/30/2024 Active Start: 01-30-2024 Insulin lispro 100 UNIT/ML Solution (1 source) Start: 01-30-2024 inject 2 [IU] by subcutaneous injection at bedtime Insulin lispro 100 UNIT/ML Solution Inject 2 Units under the skin before meals & at bedtime. 01/30/2024 Active losartan potassium 100 mg oral tablet (1 source) Angiotensin 2 Receptor Renetta Start: 07-03-2024 take 1 tablet by mouth once daily Losartan 100 mg Tablet Active 100 mg PO DAILY 30 July 03, 2024 1:00am magnesium citrate 58.2 mg/ml oral solution (1 source) magnesium citrate Solution Take by mouth once. Active Magnesium Hydroxide (1 source) Magnesium Hydroxide (MILK OF MAGNESIA PO) Take 30 mL by mouth as needed for Other (constipation). Active melatonin 3 mg oral tablet (4 sources) Start: 06-20-2024 take 1 tablet by mouth at bedtime as needed Melatonin 3 mg Tablet Active 3 mg PO AT BEDTIME NEEDED as needed for Insomnia 0 June 20, 2024 1:00am Start: 01-30-2024 take 2 tablets by mo ut at bedtime as needed Melatonin 3 MG tablet Take 2 tablets by mouth at bedtime as needed for Insomnia. 01/30/2024 Active Start: 01-11-2024 End: 01-30-2024 metFORMIN hydrochloride 500 mg oral tablet (12 sources) Biguanide Start: 07-03-2024 take 1 tablet by mouth twice daily at mealtime Metformin 500 mg Tablet Active 500 mg PO TWICE DAILY WITH MEALS 60 July 03, 2024 1:00am Start: 07-10-2023 End: 07-09-2024 take 1 tablet by mouth twice daily Metformin 1,000 mg tablet Discontinued 1000 mg PO TWICE A DAY January 08, 2024 12:00am July 03, 2024 8:40pm methIMAzole 5 mg oral tablet (14 sources) Thyroid Hormone Synthesis Inhibitor Start: 01-08-2024 take 1 tablet by mouth three times weekly, then take 0.5 tablet by mouth every week Methimazole 5 mg tablet Active 5 mg PO DIRECTED January 08, 2024 12:00am TAKE ONE TABLET (5 MG) BY MOUTH THREE TIMES A WEEK AND ALSO TAKE 1/2 TABLET (2.5 MG) ONCE A WEEK. Start: 01-06-2024 take 1 tablet by trinity th once daily methIMAzole (TAPAZOLE) 5 mg tablet Take 1 tablet by mouth once daily. 01/06/2024 Active Start: 01-06-2024 End: 01-30-2024 take 1 tablet by mouth three times daily methIMAzole (TAPAZOLE) 5 mg tablet Take 1 tablet by mouth three times a day. 01/06/2024 Active omeprazole 20 mg delayed release oral capsule (13 sources) Proton Pump Inhibitor Start: 10-11-2023 take 1 capsule by mouth once daily Omeprazole 20 mg capsule,delayed release(DR/EC) Active 20 mg PO DAILY January 08, 2024 12:00am polyethylene glycol 3350 [id number] mg powder for oral solution (4 sources) Osmotic Laxative Start: 01-20-2024 End: 01-30-2024 take 1 dose by mouth once daily as needed Polyethylene glycol 17 g Pack packet Take 1 packet by mouth daily as needed. 01/30/2024 Active microencapsulated potassium chloride 20 meq extended release oral tablet (1 source) Start: 06-20-2024 take 1 tablet by mouth twice daily at mealtime Potassium Chloride 20 mEq Tablet,Er Particles/Crystals Active 20 meq PO TWICE DAILY WITH MEALS 0 June 20, 2024 1:00am sennosides, fpc 8.6 mg oral tablet (4 sources) Start: 01-19-2024 End: 01-30-2024 take 1 tablet by mouth every twelve hours as needed Senna 8.6 MG tablet Take 1 tablet by mouth every 12 hours as needed. 01/30/2024 Active Sodium Phosphates (FLEET ENEMA RE) (1 source) take 1 dose rectal route once Sodium Phosphates (FLEET ENEMA RE) Insert 1 Dose rectally. X2 per episodes if dulcolax suppository ineffective. Active Tuberculin PPD (TUBERSOL ID) (1 source) Start: 02-08-2024 End: 02-08-2024 Tuberculin PPD (TUBERSOL ID) Inject into the skin once. 02/08/2024 Active (1 source) Start: 01-30-2024 Completed/Discontinued Medications Medication Drug Class(es) Dates Sig (Normalized) Sig (Original) aluminum hydroxide 40 mg/ml / magnesium hydroxide 40 mg/ml / simethicone 4 mg/ml oral suspension (1 source) Start: 01-18-2024 End: 01-30-2024 take 30 mL by mouth every six hours as needed bisacodyl 10 mg rectal suppository (12 sources) Stimulant Laxative Start: 01-20-2024 End: 01-30-2024 calcium chloride 0.0014 meq/ml / potassium chloride 0.004 meq/ml / sodium chloride 0.103 meq/ml / sodium lactate 0.028 meq/ml injectable solution (6 sources) Start: 01-29-2024 End: 01-29-2024 Start: 01-20-2024 End: 01-23-2024 Start: 01-17-2024 End: 01-19-2024 cefTRIAXone 2000 mg injection (1 source) Cephalosporin Antibacterial Start: 01-11-2024 End: 01-14-2024 cephalexin 250 mg oral capsule (1 source) Cephalosporin Antibacterial Start: 06-20-2024 End: 07-03-2024 take 1 capsule by mouth every eight hours Cephalexin 250 mg Capsule Discontinued 250 mg PO EVERY 8 HOURS 0 June 20, 2024 1:00am July 03, 2024 8:40pm 24 hr dilTIAZem hydrochloride 120 mg extended release oral capsule (14 sources) Calcium Channel Renetta Start: 01-08-2024 End: 01-30-2024 Start: 01-06-2024 take 1 tablet by trinity once daily dilTIAZem (CARDIZEM) 120 mg tablet Take 120 mg by mouth once daily. 01/06/2024 Active docusate sodium 50 mg / sennosides, fpc 8.6 mg oral tablet (1 source) Start: 06-20-2024 End: 07-03-2024 Sennosides-Docusate Sodium (Stimulant Laxative Plus) 8.6-50 mg Tablet Discontinued 2 {tbl} PO TWICE A DAY 0 June 20, 2024 1:00am July 03, 2024 8:41pm 0.4 ml enoxaparin sodium 100 mg/ml prefilled syringe (1 source) Low Molecular Weight Heparin Start: 01-12-2024 End: 01-17-2024 glipiZIDE er 2.5 mg 24 hr extended release oral tablet (12 sources) Sulfonylurea Start: 10-11-2023 End: 07-03-2024 take 1 tablet by mouth once daily Glipizide 2.5 mg tablet extended release 24hr Discontinued 2.5 mg PO DAILY January 08, 2024 12:00am July 03, 2024 8:40pm End: 01-30-2024 1000 ml glucose 50 mg/ml / potassium chloride 0.02 meq/ml / sodium chloride 9 mg/ml injection (1 source) Start: 01-24-2024 End: 01-25-2024 1 ml haloperidol 5 mg/ml prefilled syringe (1 source) Typical Antipsychotic Start: 01-22-2024 End: 01-22-2024 1 ml heparin sodium, porcine 5000 unt/ml prefilled syringe (1 source) Unfractionated Heparin, Anti-coagulant Start: 01-17-2024 End: 01-30-2024 1 ml HYDROmorphone hydrochloride 1 mg/ml cartridge (1 source) Opioid Agonist Start: 01-22-2024 End: 01-22-2024 3 ml insulin lispro 100 unt/ml pen injector (1 source) Insulin Analog Start: 06-20-2024 End: 07-03-2024 Insulin Lispro (Humalog Kwikpen Insulin) 100 unit/mL Insulin Pen Discontinued 0 U SC BEFORE MEALS AND AT BEDTIME 0 June 20, 2024 1:00am July 03, 2024 8:40pm Please contact the information source for Protocol details. 10 ml iron sucrose 20 mg/ml injection (2 sources) Parenteral Iron Replacement Start: 04-29-2024 End: 04-29-2024 200 mg, INTRAVENOUS, ONCE, 1 dose, On Sun04/29/24 at 1030, Please conduct a 30 minute post dose observation. IVP over 5-10 minutes Start: 04-25-2024 End: 04-25-2024 200 mg, INTRAVENOUS, ONCE, 1 dose, On Sun04/25/24 at 1500, may administer up to 200 mg IV push over 5 minutes iron sucrose iv piggyback 20 0 mg in NaCl 0.9% 100 mL (VENOFER) (3 sources) Start: 04-23-2024 End: 04-23-2024 200 mg, INTRAVENOUS, at 400 mL/hr, Administer over 15 Minutes, ONCE, 1 dose, On 04/23/24 at 1230, Please conduct a 30 minute post dose observation. Refrigerate Start: 04-21-2024 End: 04-21-2024 200 mg, INTRAVENOUS, at 400 mL/hr, Administer over 15 Minutes, ONCE, 1 dose, On 04/21/24 at 1000, Please conduct a 30 minute post dose observation. Refrigerate Start: 04-17-2024 End: 04-17-2024 200 mg, INTRAVENOUS, at 400 mL/hr, Administer over 15 Minutes, ONCE, 1 dose, On Eli 04/17/24 at 1100, Please conduct a 30 minute post dose observation. Refrigerate 10 ml lidocaine hydrochloride 10 mg/ml injection (1 source) Antiarrhythmic, Amide Local Anesthetic Start: 01-11-2024 End: 01-11-2024 lisinopril 20 mg oral tablet (15 sources) Angiotensin Converting Enzyme Inhibitor Start: 01-06-2024 End: 06-20-2024 take 1 tablet by mouth once daily Lisinopril 20 mg tablet Discontinued 20 mg PO DAILY January 08, 2024 12:00am June 20, 2024 10:42am 50 ml magnesium sulfate 80 mg/ml injection (4 sources) Start: 01-27-2024 End: 01-27-2024 Start: 01-23-2024 End: 01-23-2024 Start: 01-19-2024 End: 01-19-2024 Start: 01-13-2024 End: 01-13-2024 1 ml morphine sulfate 2 mg/ml cartridge (1 source) Opioid Agonist Start: 01-22-2024 End: 01-30-2024 take 1 mg intravenously every three hours as needed oxyCODONE hydrochloride 5 mg oral tablet (1 source) Opioid Agonist Start: 06-20-2024 End: 07-03-2024 take 2.5 mg by mouth every four hours as needed for pain Oxycodone 5 mg Tablet Discontinued 2.5 mg PO EVERY 4 HOURS NEEDED as needed for Pain Score 4-10 0 June 20, 2024 July 03, 2024 8:41pm pantoprazole 40 mg delayed release oral tablet (3 sources) Proton Pump Inhibitor Start: 01-13-2024 End: 01-30-2024 Start: 01-12-2024 End: 01-12-2024 1000 ml potassium chloride 0 .02 meq/ml / sodium chloride 9 mg/ml injection (3 sources) Start: 01-25-2024 End: 01-27-2024 Start: 01-23-2024 End: 01-24-2024 Start: 01-11-2024 End: 01-13-2024 prochlorperazine 5 mg/ml injectable solution (1 source) Phenothiazine Start: 01-19-2024 End: 01-30-2024 take 10 mg intravenously every six hours as needed simethicone 80 mg chewable tablet (1 source) Start: 01-21-2024 End: 01-22-2024 20 ml sodium chloride 9 mg/ml injection (4 sources) Start: 01-22-2024 End: 01-22-2024 Start: 01-11-2024 End: 01-30-2024 200 ml vancomycin 5 mg/ml injection (2 sources) Glycopeptide Antibacterial Start: 01-16-2024 End: 01-18-2024 take 1000 mg intravenously every twenty-four hours Start: 01-11-2024 End: 01-13-2024 (17 sources) Start: 01-29-2024 End: 01-30-2024 [Order 1 Start] Name: insuli n glargine-yfgn (SEMGLEE) injection 7 Units Signed Summary: 7 Units, Subcutaneous, DAILY AT BEDTIME, First dose (after last modification) on Sun01/29/24 at 2100, Until Discontinued, Do not mix in syringe with other insulins. [Order 1 End] [Order 2 Start] Name: NOTIFY PHYSICIAN, OTHER Signed Summary: Routine, CONTINUOUS, Starting on Sun01/29/24 at 0722, Until Specified, Who to Notify: [facility] [employer]pensing, Call [facility]ician [facility]rentice Dispensing if a.m. Glucose is less than 80 and dose reduction not already ordered. [Order 2 End] [Order 3 Start] Name: BLOOD GLUCOSE (POC DEVICE) Signed Summary: Routine, DIRECTED, Starting on Sun01/29/24 at 0721, Until Specified, Symptoms of Hypoglycemia: sweating, shaking, fatigue, rapid pulse, slow thinking & dizziness. Notify physician w/results. Symptoms of Hyperglycemia: excessive thirst, blurred vision, excessive urination & tiredness. Notify physician w/results. If patient NPO, obtain Blood Glucose (POC) prior to administration of all insulin products. [Order 3 End] Start: 01-28-2024 End: 01-30-2024 apply 7.5 g by subcutaneous injection once [Order 1 Start] Name: Insulin lispro (HUMALOG) injection Signed Summary: Subcutaneous, 4 TIMES DAILY WITH MEALS & AT BEDTIME, First dose (after last modification) on Sun01/28/24 at 0800, Until Discontinued, Correction Factor: 151-250 = 2 unit; 251-350 = 3 units; 351-450 = 4 units; Kwikpen: Prime pen before each injection; refer to Pen Priming and Care Handout for further details. Warning! Confirm patient. Insulin pen is for labeled individual patient use ONLY. [Order 1 End] [Order 2 Start] Name: BLOOD GLUCOSE (POC DEVICE) Signed Summary: Routine, 3 TIMES DAILY BEFORE MEALS, First occurrence on Sun01/28/24 at 0745, If any Blood Glucose (POC) is greater than 300mg/dl, then repeat Blood Glucose (POC) in 2 hours. If the initial blood glucose was greater than 300mg/dl and if second blood glucose is greater than 200md/dl, then notify [facility] [employer]pensing. [Order 2 End] [Order 3 Start] Name: BLOOD GLUCOSE (POC DEVICE) Signed Summary: Routine, DIRECTED, Starting on Sun01/28/24 at 0738, Until Specified, For all Blood Glucose LESS THAN 80 mg/dL, treat per Hypoglycemia in Non- Adults Clinical Practice Guideline (CPG) and recheck glucose 15 min after treatment. Repeat per CPG until glucose GREATER THAN 80 mg/dL. Once glucose IS GREATER THAN 80 mg/dL, recheck Blood Glucose every 1 hour x2, then resume as previously ordered. For Blood Glucose LESS THAN 80 mg/dL on admission OR LESS than 45 mg/dL at any time, obtain POC Blood Glucose every 4 hours for 6 occurrences AFTER treating per CPG. Obtain blood glucose for symptoms of hypoglycemia: sweating, shaking, fatigue, rapid pulse, slow thinking & dizziness. Notify physician w/results. Obtain blood glucose for symptoms of hyperglycemia: excessive thirst, blurred vision, excessive urination & tiredness. Notify physician w/results. If patient NPO, obtain POC Blood Glucose prior to administration of any insulin products. [Order 3 End] [Order 4 Start] Name: COMMUNICATION ORDER FOR NURSING CARE: For Blood Glucose LESS THAN 80 mg/dl Signed Summary: Routine, CONTINUOUS, Starting on Sun01/28/24 at 0739, Until Specified, For Blood Glucose LESS THAN 80 mg/dl follow Hypoglycemia in Non- Adults Clinical Practice Guideline (CPG) [Order 4 End] [Order 5 Start] Name: Dextrose 50% injection 7.5-25 g Signed Summary: 7.5-25 g, Intravenous, ADMINISTER DIRECTED, Starting on Sun01/28/24 at 0738, Until Sun01/30/24 at 1811, Blood glucose <80 mg/dL, For patients who are not alert, are NPO, or are on IV insulin infusion administer as directed per Hypoglycemia in Non- Adults Clinical Practice Guideline. For Blood Glucose: 60-79 mg/dL administer 7.5 gm (15ml); 45-59 mg/dL administer 12.5 gm (25ml); less than 45mg/dL administer 25gm (50ml). ++ If additional dextrose 50% needed, contact pharmacy or obtain from [facility] ++ [Order 5 End] [Order 6 Start] Name: glucose (GLUTOSE) 40 % oral gel 1-2 Tube Signed Summary: 1-2 Tube, Oral, ADMINISTER DIRECTED, Starting on Sun01/28/24 at 0738, Until Sun01/30/24 at 1811, Blood glucose <80 mg/dL, For patients who are alert, able to tolerate PO intake and with intact cognitive status administer as directed per Hypoglycemia in Non- Adults Clinical Practice Guideline. For Blood Glucose: 60-79 mg/dL administer 1 tube; 45-59 mg/dl administer 1.5 tubes; less than 45 mg/dL administer 2 tubes. Each tube of 37.5g delivers 15g of carbohydrate. [Order 6 End] [Order 7 Start] Name: NOTIFY PHYSICIAN, Blood Glucose LESS THAN 80 mg/dl Signed Summary: Routine, CONTINUOUS, Starting on Sun01/28/24 at 0739, Until Specified, Who to Notify: [facility]ice [employer]pensing, For all Blood Glucose LESS THAN 80 mg/dl, notify Optician Apprentice Dispensing after treatment per Hypoglycemia in Non- Adults Clinical Practice Guideline [Order 7 End] Start: 01-27-2024 End: 01-30-2024 take 650 mg by mouth every six hours as needed [Order 1 Start] Name: Acetaminophen (TYLENOL) oral solution 650 mg Signed Summary: 650 mg, Oral, EVERY 6 HOURS NEEDED, Starting on 01/27/24 at 0745, Until Sun01/30/24 at 181, Moderate Pain, Maximum dose of acetaminophen is 4000 mg from all sources in 24 hours. [Order 1 End] [Order 2 Start] Name: Acetaminophen (TYLENOL) tablet 650 mg Signed Summary: 650 mg, Oral, EVERY 6 HOURS NEEDED, Starting on Sun01/27/24 at 0745, Until Sun01/30/24 at 181, Moderate Pain, Maximum dose of acetaminophen is 4000 mg from all sources in 24 hours. [Order 2 End] [Order 3 Start] Name: Acetaminophen (TYLENOL) suppository 650 mg Signed Summary: 650 mg, Rectal, EVERY 6 HOURS NEEDED, Starting on Sun01/27/24 at 0745, Until Sun01/30/24 at 181, Moderate Pain, Maximum dose of acetaminophen is 4000 mg from all sources in 24 hours. [Order 3 End] Start: 01-26-2024 End: 01-29-2024 Start: 01-25-2024 End: 01-28-2024 Start: 01-24-2024 End: 01-25-2024 Start: 01-24-2024 End: 01-27-2024 Start: 01-23-2024 End: 01-26-2024 Start: 01-22-2024 End: 01-22-2024 Start: 01-21-2024 End: 01-23-2024 Start: 01-21-2024 End: 01-30-2024 [Order 1 Start] Name: Dextro se 50% injection 7.5-25 g Signed Summary: 7.5-25 g, Intravenous, ADMINISTER DIRECTED, Starting on 01/21/24 at 0842, Until Sun01/30/24 at 1811, Blood glucose <80 mg/dL, For patients who are not alert, are NPO, or are on IV insulin infusion administer as directed per Hypoglycemia in Non- Adults Clinical Practice Guideline. For Blood Glucose: 60-79 mg/dL administer 7.5 gm (15ml); 45-59 mg/dL administer 12.5 gm (25ml); less than 45mg/dL administer 25gm (50ml). ++ If additional dextrose 50% needed, contact pharmacy or obtain from [facility] ++ [Order 1 End] [Order 2 Start] Name: glucose (GLUTOSE) 40 % oral gel 1-2 Tube Signed Summary: 1-2 Tube, Oral, ADMINISTER DIRECTED, Starting on Sun01/21/24 at 0842, Until Sun01/30/24 at 1811, Blood glucose <80 mg/dL, For patients who are alert, able to tolerate PO intake and with intact cognitive status administer as directed per Hypoglycemia in Non- Adults Clinical Practice Guideline. For Blood Glucose: 60-79 mg/dL administer 1 tube; 45-59 mg/dl administer 1.5 tubes; less than 45 mg/dL administer 2 tubes. Each tube of 37.5g delivers 15g of carbohydrate. [Order 2 End] [Order 3 Start] Name: NOTIFY PHYSICIAN, Blood Glucose LESS THAN 80 mg/dl Signed Summary: Routine, CONTINUOUS, Starting on Sun01/21/24 at 0843, Until Specified, Who to Notify: [employer] [employer], For all Blood Glucose LESS THAN 80 mg/dl, notify [employer] after treatment per Hypoglycemia in Non- Adults Clinical Practice Guideline [Order 3 End] Start: 01-19-2024 End: 01-30-2024 take 4 mg by mouth every six hours as needed [Order 1 Start] Name: Ondansetron (ZOFRAN) tablet 4 mg Signed Summary: 4 mg, Oral, EVERY 6 HOURS NEEDED, Starting on 01/19/24 at 0245, Until Sun01/30/24 at 1811, Nausea / Vomiting [Order 1 End] [Order 2 Start] Name: Ondansetron 4mg/2ml (ZOFRAN) injection 4 mg Signed Summary: 4 mg, Intravenous, EVERY 6 HOURS NEEDED, Starting on 01/19/24 at 0245, Until Sun01/30/24 at 1811, Nausea / Vomiting [Order 2 End] Start: 01-19-2024 End: 01-24-2024 take 650 mg by mouth every four hours as needed Start: 01-14-2024 End: 01-20-2024 take 2 g intravenously every twelve hours Start: 01-11-2024 End: 01-21-2024 Start: 01-11-2024 End: 01-14-2024 take 2 g intravenously every six hours Start: 01-11-2024 End: 01-12-2024 (1 source) Start: 01-22-2024 End: 01-22-2024 (2 sources) Start: 01-19-2024 End: 01-19-2024 Start: 01-13-2024 End: 01-16-2024 take 1250 mg intravenously every twenty-four hours Problems Active Problems Problem Classification Problem Date Documented Da te Episodic/Chronic Acute and unspecified renal failure (1 source) Acute renal failure syndrome; Translations: [Acute kidney failure, unspecified] 07-14-2024 Episodic Deficiency and other anemia (3 sources) Anemia; Translations: [Anemia, unspecified] Onset: 4 01-16-2024 Episodic Deficiency and other anemia (2 sources) Iron deficiency anemia; Translations: [Iron deficiency anemia, unspecified] 04-08-2024 Episodic Deficiency and other anemia (16 sources) Iron deficiency anemia secondary to inadequate dietary iron intake; Translations: [Other iron deficiency anemias] Onset: 4 04-09-2024 Episodic Deficiency and other anemia (1 source) Other iron deficiency anemias; Translations: [Iron deficiency anemia secondary to inadequate dietary iron intake] Onset: 4 Episodic Deficiency and other anemia (1 source) Iron deficiency anemia, unspecified; Translations: [Iron deficiency anemia, unspecified iron deficiency anemia type] Onset: 4 Episodic Delirium, dementia, and amnestic and other cognitive disorders (2 sources) Alzheimer's disease, unspecified; Translations: [Dementia] Onset: 4 06-17-2024 Chronic Diabetes mellitus with complications (5 sources) Insulin treated type 2 diabetes mellitus; Translations: [Type 2 diabetes mellitus with hyperglycemia] Onset: 4 01-11-2024 Chronic Diabetes mellitus without complication (1 source) Hyperglycemia; Translations: [Hyperglycemia, unspecified] 06-17-2024 Episodic Disorders of lipid metabolism (1 source) Hyperlipidemia; Translations: [Hyperlipidemia, unspecified] 06-20-2024 Chronic E Codes: Fall (2 sources) Unspecified fall, initial encounter; Translations: [Fall] Onset: 4 07-14-2024 Episodic Essential hypertension (4 sources) Essential hypertension; Translations: [Essential (primary) hypertension] Onset: 4 01-11-2024 Chronic Fluid and electrolyte disorders (7 sources) Disorder of electrolytes; Translations: [Other disorders of electrolyte and fluid balance, not elsewhere classified] Onset: 4 01-21-2024 Episodic Fracture of neck of femur (hip) (1 source) Displaced intertrochanteric fracture of right femur, subsequent encounter for closed fracture with nonunion; Translations: [Displaced intertrochanteric fracture of right femur, subsequent encounter for closed fracture with nonunion] Onset: 4 Episodic Intestinal obstruction without hernia (8 sources) Small bowel obstruction; Translations: [Unspecified intestinal obstruction, unspecified as to partial versus complete obstruction] Onset: 4 01-29-2024 Episodic Malaise and fatigue (1 source) Asthenia; Translations: [Other malaise] 06-20-2024 Episodic Meningitis (except that caused by tuberculosis or sexually transmitted disease) (5 sources) Meningitis; Translations: [Meningitis, unspecified] Onset: 4 01-14-2024 Episodic Mood disorders (1 source) Depressive disorder; Translations: [Depression] 06-20-2024 Chronic Other diseases of kidney and ureters (3 sources) Kidney disease; Translations: [Disorder of kidney and ureter, unspecified] Onset: 4 01-17-2024 Episodic Other gastrointestinal disorders (15 sources) Malabsorption - iron; Translations: [Intestinal malabsorption, unspecified] Onset: 4 04-09-2024 Chronic Other lower respiratory disease (1 source) Shortness of breath; Translations: [Shortness of breath] Onset: 5 Episodic Other nervous system disorders (1 source) Metabolic encephalopathy; Translations: [Metabolic encephalopathy] Onset: 4 Chronic Other nervous system disorders (1 source) Disorder of brain; Translations: [Encephalopathy, unspecified] 07-14-2024 Chronic Other nervous system disorders (1 source) Metabolic encephalopathy; Translations: [Metabolic encephalopathy] 06-28-2024 Chronic Other nervous system disorders (1 source) Reduced mobility; Translations: [Other abnormalities of gait and mobility] 01-14-2024 Episodic Other nervous system disorders (1 source) Impaired cognition; Translations: [Other symptoms and signs involving cognitive functions and awareness] 01-15-2024 Episodic Other nervous system disorders (2 sources) Other abnormalities of gait and mobility; Translations: [Other abnormalities of gait and mobility] Onset: 4 Episodic Other nervous system disorders (2 sources) Other symptoms and signs involving cognitive functions and awareness; Translations: [Other symptoms and signs involving cognitive functions and awareness] Onset: 4 Episodic Other non-traumatic joint disorders (2 sources) Hip pain; Translations: [Pain in right hip] 06-17-2024 Episodic Other screening for suspected conditions (not mental disorders or infectious disease) (3 sources) MRI of head abnormal; Translations: [Abnormal findings on diagnostic imaging of skull and head, not elsewhere classified] Onset: 4 01-11-2024 Episodic Residual codes; unclassified (4 sources) Delirium; Translations: [Disorientation, unspecified] Onset: 4 01-29-2024 Episodic Residual codes; unclassified (2 sources) Disorientation, unspecified; Translations: [Disorientation, unspecified] Onset: 4 Episodic Thyroid disorders (4 sources) Hyperthyroidism; Translations: [Thyrotoxicosis, unspecified without thyrotoxic crisis or storm] Onset: 4 01-11-2024 Chronic Unclassified (1 source) Non-Chemotherapy Treatment Onset: 4 Urinary tract infections (2 sources) Urinary tract infection, site not specified; Translations: [Urinary tract infectious disease] Onset: 4 07-14-2024 Episodic Past or Other Problems Problem Classification Problem Date Documented Da te Episodic/Chronic Unclassified (1 source) Onset: 01-30-2024 01-30-2024 Results Test Name Value Interpretation Reference Range Facility BNP (brain natriuretic pepti de measurement)Ordered By: Julieta Orlando on 08-19-2024 Natriuretic peptide B (Bld) [Mass/Vol] 220.1 pg/mL High 0-100 [facility] BNP,B-Type NATRIURETIC PEPTI Rah 08-19-2024 Natriuretic peptide B (Bld) [Mass/Vol] 220.1 pg/mL High 0-100 [facility] Comment on above: Performed By: #### L 503.6620 ####[facility] [address] [place], [address] Basic Metabolic Profile (BMP )on 08-01-2024 BUN Normal 7-18 [facility] Comment on above: Result Comment: Canc elled via OM: Order cancelled - Patient discharged Performed By: #### L 100.0100, L500.2500 ####[facility] [address] [place], [address] BUN/CRE Normal 10-20 [facility] Comment on above: Result Comment: Canc elled via OM: Order cancelled - Patient discharged Performed By: #### L 100.0100, L500.2500 ####[facility] [address] [place], [address] CA,Total Normal 8.5-10.1 [facility] Comment on above: Result Comment: Canc elled via OM: Order cancelled - Patient discharged Performed By: #### L 100.0100, L500.2500 ####[facility] [address] [place], [address] CL Normal 98-107 [facility] Comment on above: Result Comment: Canc elled via OM: Order cancelled - Patient discharged Performed By: #### L 100.0100, L500.2500 ####[facility] [address] [place], [address] CO2 Normal 21.0-32.0 [facility] Comment on above: Result Comment: Canc elled via OM: Order cancelled - Patient discharged Performed By: #### L 100.0100, L500.2500 ####[facility] [address] [place], [address] CREAT,SERUM Normal 0.55-1.02 [facility] Comment on above: Result Comment: Canc elled via OM: Order cancelled - Patient discharged Performed By: #### L 100.0100, L500.2500 ####[facility] [address] [place], [address] EST GFR Normal >60 [facility] Comment on above: Result Comment: Canc elled via OM: Order cancelled - Patient discharged Performed By: #### L 100.0100, L500.2500 ####[facility] [address] [place], [address] EST GFR - AA Normal >60 [facility] Comment on above: Result Comment: Canc elled via OM: Order cancelled - Patient discharged Performed By: #### L 100.0100, L500.2500 ####[facility] [address] [place], [address] GAP Normal 5-15 [facility] Comment on above: Result Comment: Canc elled via OM: Order cancelled - Patient discharged Performed By: #### L 100.0100, L500.2500 ####[facility] [address] [place], [address] GLU Normal 74-106 [facility] Comment on above: Result Comment: Canc elled via OM: Order cancelled - Patient discharged Performed By: #### L 100.0100, L500.2500 ####[facility] [address] [place], [address] Potassium Normal 3.5-5.1 [facility] Comment on above: Result Comment: Canc elled via OM: Order cancelled - Patient discharged Performed By: #### L 100.0100, L500.2500 ####[facility] [address] [place], [address] Basic Metabolic Profile (BMP) Normal 136-145 [facility] Comment on above: Result Comment: Canc elled via OM: Order cancelled - Patient discharged Performed By: #### L 100.0100, L500.2500 ####[facility] [address] [place], [address] CBC W/Diff, Automatedon - Absolute Neut Normal 2.0-7.7 [facility] Comment on above: Result Comment: Canc elled via OM: Order cancelled - Patient discharged Performed By: #### L 100.0100, L500.2500 ####[facility] [address] [place], [address] HCT Normal 37-47 [facility] Comment on above: Result Comment: Canc elled via OM: Order cancelled - Patient discharged Performed By: #### L 100.0100, L500.2500 ####[facility] [address] [place], [address] HGB Normal 12.0-15.0 [facility] Comment on above: Result Comment: Canc elled via OM: Order cancelled - Patient discharged Performed By: #### L 100.0100, L500.2500 ####[facility] [address] [place], [address] MCH Normal 27.0-32.0 [facility] Comment on above: Result Comment: Canc elled via OM: Order cancelled - Patient discharged Performed By: #### L 100.0100, L500.2500 ####[facility] [address] [place], [address] MCHC Normal 32-36 [facility] Comment on above: Result Comment: Canc elled via OM: Order cancelled - Patient discharged Performed By: #### L 100.0100, L500.2500 ####[facility] [address] [place], [address] MCV Normal 81-99 [facility] Comment on above: Result Comment: Canc elled via OM: Order cancelled - Patient discharged Performed By: #### L 100.0100, L500.2500 ####[facility] [address] [place], [address] NEUT% Normal 47-70 [facility] Comment on above: Result Comment: Canc elled via OM: Order cancelled - Patient discharged Performed By: #### L 100.0100, L500.2500 ####[facility] [address] [place], [address] PLT Normal 150-450 [facility] Comment on above: Result Comment: Canc elled via OM: Order cancelled - Patient discharged Performed By: #### L 100.0100, L500.2500 ####[facility] [address] [place], [address] RBC Normal 4.2-5.4 [facility] Comment on above: Result Comment: Canc elled via OM: Order cancelled - Patient discharged Performed By: #### L 100.0100, L500.2500 ####[facility] [address] [place], [address] RDW CV Normal 11.6-14.6 [facility] Comment on above: Result Comment: Canc elled via OM: Order cancelled - Patient discharged Performed By: #### L 100.0100, L500.2500 ####[facility] [address] [place], [address] RDW SD Normal 35.1-43.9 [facility] Comment on above: Result Comment: Canc elled via OM: Order cancelled - Patient discharged Performed By: #### L 100.0100, L500.2500 ####[facility] [address] [place], [address] WBC Normal 4.4-11.0 [facility] Comment on above: Result Comment: Canc elled via OM: Order cancelled - Patient discharged Performed By: #### L 100.0100, L500.2500 ####[facility] [address] [place], [address] Basic Metabolic Profile (BMP )on 07-25-2024 BUN Normal 7-18 [facility] Comment on above: Result Comment: Canc elled via OM: Order cancelled - Patient discharged Performed By: #### L 100.0100, L500.2500 ####[facility] [address] [place], [address] BUN/CRE Normal 10-20 [facility] Comment on above: Result Comment: Canc elled via OM: Order cancelled - Patient discharged Performed By: #### L 100.0100, L500.2500 ####[facility] [address] [place], [address] CA,Total Normal 8.5-10.1 [facility] Comment on above: Result Comment: Canc elled via OM: Order cancelled - Patient discharged Performed By: #### L 100.0100, L500.2500 ####[facility] [address] [place], [address] CL Normal 98-107 [facility] Comment on above: Result Comment: Canc elled via OM: Order cancelled - Patient discharged Performed By: #### L 100.0100, L500.2500 ####[facility] [address] [place], [address] CO2 Normal 21.0-32.0 [facility] Comment on above: Result Comment: Canc elled via OM: Order cancelled - Patient discharged Performed By: #### L 100.0100, L500.2500 ####[facility] [address] [place], [address] CREAT,SERUM Normal 0.55-1.02 [facility] Comment on above: Result Comment: Canc elled via OM: Order cancelled - Patient discharged Performed By: #### L 100.0100, L500.2500 ####[facility] [address] [place], [address] EST GFR Normal >60 [facility] Comment on above: Result Comment: Canc elled via OM: Order cancelled - Patient discharged Performed By: #### L 100.0100, L500.2500 ####[facility] [address] [place], [address] EST GFR - AA Normal >60 [facility] Comment on above: Result Comment: Canc elled via OM: Order cancelled - Patient discharged Performed By: #### L 100.0100, L500.2500 ####[facility] [address] [place], [address] GAP Normal 5-15 [facility] Comment on above: Result Comment: Canc elled via OM: Order cancelled - Patient discharged Performed By: #### L 100.0100, L500.2500 ####[facility] [address] [place], [address] GLU Normal 74-106 [facility] Comment on above: Result Comment: Canc elled via OM: Order cancelled - Patient discharged Performed By: #### L 100.0100, L500.2500 ####[facility] [address] [place], [address] Potassium Normal 3.5-5.1 [facility] Comment on above: Result Comment: Canc elled via OM: Order cancelled - Patient discharged Performed By: #### L 100.0100, L500.2500 ####[facility] [address] [place], [address] Basic Metabolic Profile (BMP) Normal 136-145 [facility] Comment on above: Result Comment: Canc elled via OM: Order cancelled - Patient discharged Performed By: #### L 100.0100, L500.2500 ####[facility] [address] [place], [address] CBC W/Diff, Automatedon 07-16 Absolute Neut Normal 2.0-7.7 [facility] Comment on above: Result Comment: Canc elled via OM: Order cancelled - Patient discharged Performed By: #### L 100.0100, L500.2500 ####[facility] [address] [place], [address] HCT Normal 37-47 [facility] Comment on above: Result Comment: Canc elled via OM: Order cancelled - Patient discharged Performed By: #### L 100.0100, L500.2500 ####[facility] [address] [place], [address] HGB Normal 12.0-15.0 [facility] Comment on above: Result Comment: Canc elled via OM: Order cancelled - Patient discharged Performed By: #### L 100.0100, L500.2500 ####[facility] [address] [place], [address] MCH Normal 27.0-32.0 [facility] Comment on above: Result Comment: Canc elled via OM: Order cancelled - Patient discharged Performed By: #### L 100.0100, L500.2500 ####[facility] [address] [place], [address] MCHC Normal 32-36 [facility] Comment on above: Result Comment: Canc elled via OM: Order cancelled - Patient discharged Performed By: #### L 100.0100, L500.2500 ####[facility] [address] [place], [address] MCV Normal 81-99 [facility] Comment on above: Result Comment: Canc elled via OM: Order cancelled - Patient discharged Performed By: #### L 100.0100, L500.2500 ####[facility] [address] [place], [address] NEUT% Normal 47-70 [facility] Comment on above: Result Comment: Canc elled via OM: Order cancelled - Patient discharged Performed By: #### L 100.0100, L500.2500 ####[facility] [address] [place], [address] PLT Normal 150-450 [facility] Comment on above: Result Comment: Canc elled via OM: Order cancelled - Patient discharged Performed By: #### L 100.0100, L500.2500 ####[facility] [address] [place], [address] RBC Normal 4.2-5.4 [facility] Comment on above: Result Comment: Canc elled via OM: Order cancelled - Patient discharged Performed By: #### L 100.0100, L500.2500 ####[facility] [address] [place], [address] RDW CV Normal 11.6-14.6 [facility] Comment on above: Result Comment: Canc elled via OM: Order cancelled - Patient discharged Performed By: #### L 100.0100, L500.2500 ####[facility] [address] [place], [address] RDW SD Normal 35.1-43.9 [facility] Comment on above: Result Comment: Canc elled via OM: Order cancelled - Patient discharged Performed By: #### L 100.0100, L500.2500 ####[facility] [address] [place], [address] WBC Normal 4.4-11.0 [facility] Comment on above: Result Comment: Canc elled via OM: Order cancelled - Patient discharged Performed By: #### L 100.0100, L500.2500 ####[facility] [address] [place], [address] Basic Metabolic Profile (BMP )on 07-18-2024 BUN Normal 7-18 [facility] Comment on above: Result Comment: Canc elled via OM: Order cancelled - Patient discharged Performed By: #### L 500.2500, L100.0100 ####[facility] [address] [place], [address] BUN/CRE Normal 10-20 [facility] Comment on above: Result Comment: Canc elled via OM: Order cancelled - Patient discharged Performed By: #### L 500.2500, L100.0100 ####[facility] [address] [place], [address] CA,Total Normal 8.5-10.1 [facility] Comment on above: Result Comment: Canc elled via OM: Order cancelled - Patient discharged Performed By: #### L 500.2500, L100.0100 ####[facility] [address] [place], [address] CL Normal 98-107 [facility] Comment on above: Result Comment: Canc elled via OM: Order cancelled - Patient discharged Performed By: #### L 500.2500, L100.0100 ####[facility] [address] [place], [address] CO2 Normal 21.0-32.0 [facility] Comment on above: Result Comment: Canc elled via OM: Order cancelled - Patient discharged Performed By: #### L 500.2500, L100.0100 ####[facility] [address] [place], [address] CREAT,SERUM Normal 0.55-1.02 [facility] [facility] Comment on above: Result Comment: Canc elled via OM: Order cancelled - Patient discharged Performed By: #### L 500.2500, L100.0100 ####[facility] [address] [place], [address] EST GFR Normal >60 [facility] Comment on above: Result Comment: Canc elled via OM: Order cancelled - Patient discharged Performed By: #### L 500.2500, L100.0100 ####[facility] [address] [place], [address] EST GFR - AA Normal >60 [facility] Comment on above: Result Comment: Canc elled via OM: Order cancelled - Patient discharged Performed By: #### L 500.2500, L100.0100 ####[facility] [address] [place], [address] GAP Normal 5-15 [facility] Comment on above: Result Comment: Canc elled via OM: Order cancelled - Patient discharged Performed By: #### L 500.2500, L100.0100 ####[facility] [address] [place], [address] GLU Normal 74-106 [facility] Comment on above: Result Comment: Canc elled via OM: Order cancelled - Patient discharged Performed By: #### L 500.2500, L100.0100 ####[facility] [address] [place], [address] Potassium Normal 3.5-5.1 [facility] Comment on above: Result Comment: Canc elled via OM: Order cancelled - Patient discharged Performed By: #### L 500.2500, L100.0100 ####[facility] [address] [place], [address] Basic Metabolic Profile (BMP) Normal 136-145 [facility] Comment on above: Result Comment: Canc elled via OM: Order cancelled - Patient discharged Performed By: #### L 500.2500, L100.0100 ####[facility] [address] [place], [address] CBC W/Diff, Automatedon 01-0 Absolute Neut Normal 2.0-7.7 [facility] Comment on above: Result Comment: Canc elled via OM: Order cancelled - Patient discharged Performed By: #### L 500.2500, L100.0100 ####[facility] [address] [place], [address] HCT Normal 37-47 [facility] Comment on above: Result Comment: Canc elled via OM: Order cancelled - Patient discharged Performed By: #### L 500.2500, L100.0100 ####[facility] [address] [place], [address] HGB Normal 12.0-15.0 [facility] Comment on above: Result Comment: Canc elled via OM: Order cancelled - Patient discharged Performed By: #### L 500.2500, L100.0100 ####[facility] [address] [place], [address] MCH Normal 27.0-32.0 [facility] Comment on above: Result Comment: Canc elled via OM: Order cancelled - Patient discharged Performed By: #### L 500.2500, L100.0100 ####[facility] [address] [place], [address] MCHC Normal 32-36 [facility] Comment on above: Result Comment: Canc elled via OM: Order cancelled - Patient discharged Performed By: #### L 500.2500, L100.0100 ####[facility] [address] [place], [address] MCV Normal 81-99 [facility] Comment on above: Result Comment: Canc elled via OM: Order cancelled - Patient discharged Performed By: #### L 500.2500, L100.0100 ####[facility] [address] [place], [address] NEUT% Normal 47-70 [facility] Comment on above: Result Comment: Canc elled via OM: Order cancelled - Patient discharged Performed By: #### L 500.2500, L100.0100 ####[facility] [address] [place], [address] PLT Normal 150-450 [facility] Comment on above: Result Comment: Canc elled via OM: Order cancelled - Patient discharged Performed By: #### L 500.2500, L100.0100 ####[facility] [address] [place], [address] RBC Normal 4.2-5.4 [facility] Comment on above: Result Comment: Canc elled via OM: Order cancelled - Patient discharged Performed By: #### L 500.2500, L100.0100 ####[facility] [address] [place], [address] RDW CV Normal 11.6-14.6 [facility] Comment on above: Result Comment: Canc elled via OM: Order cancelled - Patient discharged Performed By: #### L 500.2500, L100.0100 ####[facility] [address] [place], [address] RDW SD Normal 35.1-43.9 [facility] Comment on above: Result Comment: Canc elled via OM: Order cancelled - Patient discharged Performed By: #### L 500.2500, L100.0100 ####[facility] [address] [place], [address] WBC Normal 4.4-11.0 [facility] Comment on above: Result Comment: Canc elled via OM: Order cancelled - Patient discharged Performed By: #### L 500.2500, L100.0100 ####[facility] [address] [place], [address] Basic Metabolic Profile (BMP )on 07-11-2024 BUN Normal 7-18 [facility] Comment on above: Result Comment: Canc elled via OM: Order cancelled - Patient discharged Performed By: #### L 100.0100, L500.2500 ####[facility] [address] [place], [address] BUN/CRE Normal 10-20 [facility] Comment on above: Result Comment: Canc elled via OM: Order cancelled - Patient discharged Performed By: #### L 100.0100, L500.2500 ####[facility] [address] [place], [address] CA,Total Normal 8.5-10.1 [facility] Comment on above: Result Comment: Canc elled via OM: Order cancelled - Patient discharged Performed By: #### L 100.0100, L500.2500 ####[facility] [address] [place], [address] CL Normal 98-107 [facility] Comment on above: Result Comment: Canc elled via OM: Order cancelled - Patient discharged Performed By: #### L 100.0100, L500.2500 ####[facility] [address] [place], [address] CO2 Normal 21.0-32.0 [facility] Comment on above: Result Comment: Canc elled via OM: Order cancelled - Patient discharged Performed By: #### L 100.0100, L500.2500 ####[facility] [address] [place], [address] CREAT,SERUM Normal 0.55-1.02 [facility] Comment on above: Result Comment: Canc elled via OM: Order cancelled - Patient discharged Performed By: #### L 100.0100, L500.2500 ####[facility] [address] [place], [address] EST GFR Normal >60 [facility] Comment on above: Result Comment: Canc elled via OM: Order cancelled - Patient discharged Performed By: #### L 100.0100, L500.2500 ####[facility] [address] [place], [address] EST GFR - AA Normal >60 [facility] Comment on above: Result Comment: Canc elled via OM: Order cancelled - Patient discharged Performed By: #### L 100.0100, L500.2500 ####[facility] [address] [place], [address] GAP Normal 5-15 [facility] Comment on above: Result Comment: Canc elled via OM: Order cancelled - Patient discharged Performed By: #### L 100.0100, L500.2500 ####[facility] [address] [place], [address] GLU Normal 74-106 [facility] Comment on above: Result Comment: Canc elled via OM: Order cancelled - Patient discharged Performed By: #### L 100.0100, L500.2500 ####[facility] [address] [place], [address] Potassium Normal 3.5-5.1 [facility] Comment on above: Result Comment: Canc elled via OM: Order cancelled - Patient discharged Performed By: #### L 100.0100, L500.2500 ####[facility] [address] [place], [address] Basic Metabolic Profile (BMP) Normal 136-145 [facility] Comment on above: Result Comment: Canc elled via OM: Order cancelled - Patient discharged Performed By: #### L 100.0100, L500.2500 ####[facility] [address] [place], [address] CBC W/Diff, Automatedon 12-2 Absolute Neut Normal 2.0-7.7 [facility] Comment on above: Result Comment: Canc elled via OM: Order cancelled - Patient discharged Performed By: #### L 100.0100, L500.2500 ####[facility] [address] [place], [address] HCT Normal 37-47 [facility] Comment on above: Result Comment: Canc elled via OM: Order cancelled - Patient discharged Performed By: #### L 100.0100, L500.2500 ####[facility] [address] [place], [address] HGB Normal 12.0-15.0 [facility] Comment on above: Result Comment: Canc elled via OM: Order cancelled - Patient discharged Performed By: #### L 100.0100, L500.2500 ####[facility] [address] [place], [address] MCH Normal 27.0-32.0 [facility] Comment on above: Result Comment: Canc elled via OM: Order cancelled - Patient discharged Performed By: #### L 100.0100, L500.2500 ####[facility] [address] [place], [address] MCHC Normal 32-36 [facility] Comment on above: Result Comment: Canc elled via OM: Order cancelled - Patient discharged Performed By: #### L 100.0100, L500.2500 ####[facility] [address] [place], [address] MCV Normal 81-99 [facility] Comment on above: Result Comment: Canc elled via OM: Order cancelled - Patient discharged Performed By: #### L 100.0100, L500.2500 ####[facility] [address] [place], [address] NEUT% Normal 47-70 [facility] Comment on above: Result Comment: Canc elled via OM: Order cancelled - Patient discharged Performed By: #### L 100.0100, L500.2500 ####[facility] [address] [place], [address] PLT Normal 150-450 [facility] Comment on above: Result Comment: Canc elled via OM: Order cancelled - Patient discharged Performed By: #### L 100.0100, L500.2500 ####[facility] [address] [place], [address] RBC Normal 4.2-5.4 [facility] Comment on above: Result Comment: Canc elled via OM: Order cancelled - Patient discharged Performed By: #### L 100.0100, L500.2500 ####[facility] [address] [place], [address] RDW CV Normal 11.6-14.6 [facility] Comment on above: Result Comment: Canc elled via OM: Order cancelled - Patient discharged Performed By: #### L 100.0100, L500.2500 ####[facility] [address] [place], [address] RDW SD Normal 35.1-43.9 [facility] Comment on above: Result Comment: Canc elled via OM: Order cancelled - Patient discharged Performed By: #### L 100.0100, L500.2500 ####[facility] [address] [place], [address] WBC Normal 4.4-11.0 [facility] Comment on above: Result Comment: Canc elled via OM: Order cancelled - Patient discharged Performed By: #### L 100.0100, L500.2500 ####[facility] [address] [place], [address] Bedside Glucoseon 07-06-2024 FINGERSTICK GLU 143 mg/dL High 74-106 [facility] Comment on above: Result Comment: ADAL GEMENT OF PATIENT CARE PER NURSING PROTOCOL Performed By: #### L 501.080 ####[facility] [address] [place], [address] Bedside Glucoseon 4 FINGERSTICK GLU 231 mg/dL High 74-106 [facility] Comment on above: Result Comment: ADAL GEMENT OF PATIENT CARE PER NURSING PROTOCOL Performed By: #### L 501.080 ####[facility] [address] [place], [address] FINGERSTICK GLU 206 mg/dL High 74-106 [facility] Comment on above: Result Comment: ADAL GEMENT OF PATIENT CARE PER NURSING PROTOCOL Performed By: #### L 501.080 ####[facility] [address] [place], [address] FINGERSTICK GLU 238 mg/dL High 74-106 [facility] Comment on above: Result Comment: ADAL GEMENT OF PATIENT CARE PER NURSING PROTOCOL Performed By: #### L 501.080 ####[facility] [address] [place], [address] FINGERSTICK GLU 137 mg/dL High 74-106 [facility] Comment on above: Result Comment: ADAL GEMENT OF PATIENT CARE PER NURSING PROTOCOL Performed By: #### L 501.080 ####[facility] [address] [place], [address] Basic Metabolic Profile (BMP )on 07-04-2024 BUN/CRE 28.0 RATIO High 10-20 [facility] Comment on above: Performed By: #### L 100.0100, L500.2500 ####[facility] [address] [place], [address] CA,Total 9.7 mg/dL Normal 8.5-10.1 [facility] Comment on above: Performed By: #### L 100.0100, L500.2500 ####[facility] [address] [place], [address] Chloride [Moles/Vol] 111 mmol/L High 98-[address] [facility] Comment on above: Performed By: #### L 100.0100, L500.2500 ####[facility] [address] [place], [address] CO2 [Moles/Vol] 25.0 mmol/L Normal 21.0-32.0 [facility] Comment on above: Performed By: #### L 100.0100, L500.2500 ####[facility] [address] [place], [address] Creatinine [Mass/Vol] 1.18 mg/dL High 0.55-1.02 [facility] Comment on above: Result Comment: The validity of the calculated GFR GFRAA in patients over70 years has not been determined. Clinical correlation isessential. Performed By: #### L 100.0100, L500.2500 ####[facility] [address] [place], [address] ECRCL 36.10 ml/min Normal [facility] Comment on above: Performed By: #### L 100.0100, L500.2500 ####[facility] [address] [place], [address] EST GFR - AA 57 mL/min Low >60 [facility] Comment on above: Result Comment: Afri can Mongolian GFR Calc Performed By: #### L 100.0100, L500.2500 ####[facility] [address] [place], [address] GAP 3 Low 5-15 [facility] Comment on above: Performed By: #### L 100.0100, L500.2500 ####[facility] [address] [place], [address] GFR/1.73 sq M.predicted among non-blacks MDRD (S/P/Bld) [Vol rate/Area] 47 mL/min/{1.73_m2} Low >60 [facility] Comment on above: Result Comment: Non- GFR Calc Performed By: #### L 100.0100, L500.2500 ####[facility] [address] [place], [address] Glucose [Mass/Vol] 169 mg/dL High 74-106 [facility] Comment on above: Result Comment: Fast ing Glucose result greater than or equal to 126 mg/dLsuggests DIABETES MELLITUS per A.D.A. criteria. Performed By: #### L 100.0100, L500.2500 ####[facility] [address] [place], [address] Potassium [Moles/Vol] 4.9 mmol/L Normal 3.5-5.1 [facility] Comment on above: Performed By: #### L 100.0100, L500.2500 ####[facility] [address] [place], [address] Sodium [Moles/Vol] 139 mmol/L Normal 136-145 [facility] Comment on above: Performed By: #### L 100.0100, L500.2500 ####[facility] [address] [place], [address] Urea nitrogen [Mass/Vol] 33 mg/dL High 7-18 [facility] Comment on above: Performed By: #### L 100.0100, L500.2500 ####[facility] [address] [place], [address] Bedside Glucoseon 07-04-2024 FINGERSTICK GLU 192 mg/dL High 74-106 [facility] Comment on above: Result Comment: ADAL GEMENT OF PATIENT CARE PER NURSING PROTOCOL Performed By: #### L 501.080 ####[facility] [address] [place], [address] FINGERSTICK GLU 197 mg/dL High 74-106 [facility] Comment on above: Result Comment: ADAL GEMENT OF PATIENT CARE PER NURSING PROTOCOL Performed By: #### L 501.080 ####[facility] [address] [place], [address] FINGERSTICK GLU 151 mg/dL High 74-106 [facility] Comment on above: Result Comment: ADAL GEMENT OF PATIENT CARE PER NURSING PROTOCOL Performed By: #### L 501.080 ####[facility] [address] [place], [address] CBC W/Diff, Automatedon 12-2 0-2023 Absolute Lymph 1.58 X10 3/uL Normal 0.83-4.51 [facility] Comment on above: Performed By: #### L 100.0100, L500.2500 ####[facility] [address] [place], [address] Absolute Neut 4.0 X10 3/uL Normal 2.0-7.7 [facility] Comment on above: Performed By: #### L 100.0100, L500.2500 ####[facility] [address] [place], [address] Basophils/100 WBC (Bld) 0.8 % Normal 0-1 [facility] Comment on above: Performed By: #### L 100.0100, L500.2500 ####[facility] [address] [place], [address] Eosinophils/100 WBC (Bld) 3.3 % Normal 0-5 [facility] Comment on above: Performed By: #### L 100.0100, L500.2500 ####[facility] [address] [place], [address] Erythrocyte distribution width (RBC) [Ratio] 16.9 % High 11.6-14.6 [facility] Comment on above: Performed By: #### L 100.0100, L500.2500 ####[facility] [address] [place], [address] Hematocrit (Bld) [Volume fraction] 36.1 % Low 37-47 [facility] Comment on above: Performed By: #### L 100.0100, L500.2500 ####[facility] [address] [place], [address] Hemoglobin (Bld) [Mass/Vol] 10.9 g/dL Low 12.0-15.0 [facility] Comment on above: Performed By: #### L 100.0100, L500.2500 ####[facility] [address] [place], [address] IG% 0.300 Normal 0.0-0.9 [facility] Comment on above: Result Comment: IG% - Immature Granulocytes (promyelocytes, myelocytes andmetamyelocytes) > 1% indicates that a LEFT SHIFT is Present. Performed By: #### L 100.0100, L500.2500 ####[facility] [address] [place], [address] Lymphocytes/100 WBC (Bld) 24.8 % Normal 19-41 [facility] Comment on above: Performed By: #### L 100.0100, L500.2500 ####[facility] [address] [place], [address] MCH (RBC) [Entitic mass] 26.0 pg Low 27.0-32.0 [facility] Comment on above: Performed By: #### L 100.0100, L500.2500 ####[facility] [address] [place], [address] MCHC (RBC) [Mass/Vol] 30.2 g/dL Low 32-36 [facility] Comment on above: Performed By: #### L 100.0100, L500.2500 ####[facility] [address] [place], [address] MCV (RBC) [Entitic vol] 86.2 fL Normal 81-99 [facility] Comment on above: Performed By: #### L 100.0100, L500.2500 ####[facility] [address] [place], [address] Monocytes/100 WBC (Bld) 8.6 % Normal 0-10 [facility] Comment on above: Performed By: #### L 100.0100, L500.2500 ####[facility] [address] [place], [address] Neutrophils/100 WBC (Bld) 62.2 % Normal 47-70 [facility] Comment on above: Performed By: #### L 100.0100, L500.2500 ####[facility] [address] [place], [address] Nucleated RBC (Bld) [#/Vol] 0 10*3/uL Normal 0-5 [facility] Comment on above: Performed By: #### L 100.0100, L500.2500 ####[facility] [address] [place], [address] Platelet mean volume (Bld) [Entitic vol] 10.2 fL Normal 6.2-12.0 [facility] Comment on above: Performed By: #### L 100.0100, L500.2500 ####[facility] [address] [place], [address] Platelets (Bld) [#/Vol] 261 10*3/uL Normal 150-450 [facility] Comment on above: Performed By: #### L 100.0100, L500.2500 ####[facility] [address] [place], [address] RBC (Bld) [#/Vol] 4.19 10*6/uL Low 4.2-5.4 [facility] Comment on above: Performed By: #### L 100.0100, L500.2500 ####[facility] [address] [place], [address] RDW SD 52.9 fl High 35.1-43.9 [facility] Comment on above: Performed By: #### L 100.0100, L500.2500 ####[facility] [address] [place], [address] WBC (Bld) [#/Vol] 6.4 10*3/uL Normal 4.4-11.0 [facility] Comment on above: Performed By: #### L 100.0100, L500.2500 ####[facility] [address] [place], [address] Bedside Glucoseon 12-19-2024 FINGERSTICK GLU 265 mg/dL High 74-106 [facility] Comment on above: Result Comment: ADAL GEMENT OF PATIENT CARE PER NURSING PROTOCOL Performed By: #### L 501.080 ####[facility] [address] [place], [address] FINGERSTICK GLU 130 mg/dL High [facility]106 [facility] Comment on above: Result Comment: ADAL GEMENT OF PATIENT CARE PER NURSING PROTOCOL Performed By: #### L 501.080 ####[facility] [address] [facility] [address] FINGERSTICK GLU 220 mg/dL High [address] [place] [address] Comment on above: Result Comment: ADAL GEMENT OF PATIENT CARE PER NURSING PROTOCOL Performed By: #### L 501.080 ####[facility] [address] [facility] [address] FINGERSTICK GLU 119 mg/dL High [address] [place] [address] Comment on above: Result Comment: ADAL GEMENT OF PATIENT CARE PER NURSING PROTOCOL Performed By: #### L 501.080 ####[facility] [address] [place], [address] Bedside Glucoseon 4 FINGERSTICK GLU 151 mg/dL High [address] [place] [address] Comment on above: Result Comment: ADAL GEMENT OF PATIENT CARE PER NURSING PROTOCOL Performed By: #### L 501.080 ####[facility] [address] [place], [address] FINGERSTICK GLU 110 mg/dL High [address] [place] [address] Comment on above: Result Comment: ADAL GEMENT OF PATIENT CARE PER NURSING PROTOCOL Performed By: #### L 501.080 ####[facility] [address] [place], [address] FINGERSTICK GLU 159 mg/dL High [facility]106 [facility] Comment on above: Result Comment: ADAL GEMENT OF PATIENT CARE PER NURSING PROTOCOL Performed By: #### L 501.080 ####[facility] [address] [place], [address] FINGERSTICK GLU 109 mg/dL High [facility]106 [facility] Comment on above: Result Comment: ADAL GEMENT OF PATIENT CARE PER NURSING PROTOCOL Performed By: #### L 501.080 ####[facility] [address] [place], [address] Bedside Glucoseon 12-4 FINGERSTICK GLU 114 mg/dL High -106 [facility] Comment on above: Result Comment: ADAL GEMENT OF PATIENT CARE PER NURSING PROTOCOL Performed By: #### L 501.080 ####[facility] [address] [place], [address] FINGERSTICK GLU 123 mg/dL High -[address] [place] [address] Comment on above: Result Comment: ADAL GEMENT OF PATIENT CARE PER NURSING PROTOCOL Performed By: #### L 501.080 ####[facility] [address] [place], [address] FINGERSTICK GLU 96 mg/dL Normal -[address] [place] [address] Comment on above: Result Comment: ADAL GEMENT OF PATIENT CARE PER NURSING PROTOCOL Performed By: #### L 501.080 ####[facility] [address] [place], [address] Bedside Glucoseon 16-4 FINGERSTICK GLU 146 mg/dL High [address] [place] [address] Comment on above: Result Comment: ADAL GEMENT OF PATIENT CARE PER NURSING PROTOCOL Performed By: #### L 501.080 ####[facility] [address] [place], [address] FINGERSTICK GLU 42 mg/dL Invalid Interpretation Code 74-106 [facility] Comment on above: Result Comment: Dr Prisca griffith FollowedMANAGEMENT OF PATIENT CARE PER NURSING PROTOCOL Performed By: #### L 501.080 ####[facility] [address] [place], [address] FINGERSTICK GLU 88 mg/dL Normal 74-106 [facility] Comment on above: Result Comment: ADAL GEMENT OF PATIENT CARE PER NURSING PROTOCOL Performed By: #### L 501.080 ####[facility] [address] [place], [address] FINGERSTICK GLU 116 mg/dL High 74-106 [facility] Comment on above: Result Comment: ADAL GEMENT OF PATIENT CARE PER NURSING PROTOCOL Performed By: #### L 501.080 ####[facility] [address] [place], [address] FINGERSTICK GLU 118 mg/dL High 74-106 [facility] Comment on above: Result Comment: ADAL GEMENT OF PATIENT CARE PER NURSING PROTOCOL Performed By: #### L 501.080 ####[facility] [address] [place], [address] COVID 19 AG RAPID (RN DANIEL Head)on 06-30-2024 SARS-CoV-2 (COVID-19) RNA JAYLIN+probe Ql (Unsp spec) SARS-CoV-2 (COVID 19) Negative RAPID METHOD BinaxNow COVID[address] [facility] Comment on above: Performed By: #### M 100.505 ####[facility] [address] [place], [address] Bedside Glucoseon 06-29-2024 FINGERSTICK GLU 90 mg/dL Normal 74-106 [facility] Comment on above: Result Comment: ADAL GEMENT OF PATIENT CARE PER NURSING PROTOCOL Performed By: #### L 501.080 ####[facility] [address] [place], [address] FINGERSTICK GLU 112 mg/dL High 74-106 [facility] Comment on above: Result Comment: ADAL GEMENT OF PATIENT CARE PER NURSING PROTOCOL Performed By: #### L 501.080 ####[facility] [address] [place], [address] FINGERSTICK GLU 59 mg/dL Low 74-106 [facility] Comment on above: Result Comment: ADAL GEMENT OF PATIENT CARE PER NURSING PROTOCOL Performed By: #### L 501.080 ####[facility] [address] [place], [address] FINGERSTICK GLU 214 mg/dL High 74-106 [facility] Comment on above: Result Comment: ADAL GEMENT OF PATIENT CARE PER NURSING PROTOCOL Performed By: #### L 501.080 ####[facility] [address] [place], [address] FINGERSTICK GLU 94 mg/dL Normal 74-106 [facility] Comment on above: Result Comment: ADAL GEMENT OF PATIENT CARE PER NURSING PROTOCOL Performed By: #### L 501.080 ####[facility] [address] [place], [address] Bedside Glucoseon 06-28-2024 FINGERSTICK GLU 80 mg/dL Normal 74-106 [facility] Comment on above: Result Comment: ADAL GEMENT OF PATIENT CARE PER NURSING PROTOCOL Performed By: #### L 501.080 ####[facility] [address] [place], [address] FINGERSTICK GLU 97 mg/dL Normal 74-106 [facility] Comment on above: Result Comment: ADAL GEMENT OF PATIENT CARE PER NURSING PROTOCOL Performed By: #### L 501.080 ####[facility] [address] [place], [address] FINGERSTICK GLU 142 mg/dL High 74-106 [facility] Comment on above: Result Comment: ADAL GEMENT OF PATIENT CARE PER NURSING PROTOCOL Performed By: #### L 501.080 ####[facility] [address] [place], [address] FINGERSTICK GLU 97 mg/dL Normal 74-106 [facility] Comment on above: Result Comment: ADAL GOODEN OF PATIENT CARE PER NURSING PROTOCOL Performed By: #### L 501.080 ####[facility] [address] [place], [address] Basic Metabolic Profile (BMP )on 06-27-2024 BUN/CRE 21.1 RATIO High 10-20 [facility] Comment on above: Performed By: #### L 500.2500, L100.0100 ####[facility] [address] [place], [address] CA,Total 9.6 mg/dL Normal 8.5-10.1 [facility] Comment on above: Performed By: #### L 500.2500, L100.0100 ####[facility] [address] [place], [address] Chloride [Moles/Vol] 110 mmol/L High 98-[address] [facility] Comment on above: Performed By: #### L 500.2500, L100.0100 ####[facility] [address] [place], [address] CO2 [Moles/Vol] 27.0 mmol/L Normal 21.0-32.0 [facility] Comment on above: Performed By: #### L 500.2500, L100.0100 ####[facility] [address] [place], [address] Creatinine [Mass/Vol] 1.14 mg/dL High 0.55-1.02 [facility] Comment on above: Result Comment: The validity of the calculated GFR GFRAA in patients over70 years has not been determined. Clinical correlation isessential. Performed By: #### L 500.2500, L100.0100 ####[facility] [address] [place], [address] ECRCL 37.97 ml/min Normal [facility] Comment on above: Performed By: #### L 500.2500, L100.0100 ####[facility] [address] [place], [address] EST GFR - AA 59 mL/min Low >60 [facility] Comment on above: Result Comment: Afri can Mongolian GFR Calc Performed By: #### L 500.2500, L100.0100 ####[facility] [address] [place], [address] GAP 3 Low 5-15 [facility] Comment on above: Performed By: #### L 500.2500, L100.0100 ####[facility] [address] [place], [address] GFR/1.73 sq M.predicted among non-blacks MDRD (S/P/Bld) [Vol rate/Area] 49 mL/min/{1.73_m2} Low >60 [facility] Comment on above: Result Comment: Non- GFR Calc Performed By: #### L 500.2500, L100.0100 ####[facility] [address] [place], [address] Glucose [Mass/Vol] 111 mg/dL High 74-106 [facility] Comment on above: Result Comment: Fast ing Glucose result from 100 to 125 mg/dLsuggests IMPAIRED HOMEOSTASIS per A.D.A. criteria. Performed By: #### L 500.2500, L100.0100 ####[facility] [address] [place], [address] Potassium [Moles/Vol] 4.9 mmol/L Normal 3.5-5.1 [facility] Comment on above: Performed By: #### L 500.2500, L100.0100 ####[facility] [address] [place], [address] Sodium [Moles/Vol] 140 mmol/L Normal 136-145 [facility] Comment on above: Performed By: #### L 500.2500, L100.0100 ####[facility] [address] [place], [address] Urea nitrogen [Mass/Vol] 24 mg/dL High 7-18 [facility] Comment on above: Performed By: #### L 500.2500, L100.0100 ####[facility] [address] [place], [address] Bedside Glucoseon 06-27-2024 FINGERSTICK GLU 88 mg/dL Normal 74-106 [facility] Comment on above: Result Comment: ADAL GEMENT OF PATIENT CARE PER NURSING PROTOCOL Performed By: #### L 501.080 ####[facility] [address] [place], [address] FINGERSTICK GLU 124 mg/dL High 74-106 [facility] Comment on above: Result Comment: ADAL GEMENT OF PATIENT CARE PER NURSING PROTOCOL Performed By: #### L 501.080 ####[facility] [address] [place], [address] CBC W/Diff, Automatedon - Absolute Lymph 1.74 X10 3/uL Normal 0.83-4.51 [facility] Comment on above: Performed By: #### L 500.2500, L100.0100 ####[facility] [address] [place], [address] Absolute Neut 3.3 X10 3/uL Normal 2.0-7.7 [facility] Comment on above: Performed By: #### L 500.2500, L100.0100 ####[facility] [address] [place], [address] Basophils/100 WBC (Bld) 0.5 % Normal 0-1 [facility] Comment on above: Performed By: #### L 500.2500, L100.0100 ####[facility] [address] [place], [address] Eosinophils/100 WBC (Bld) 4.9 % Normal 0-5 [facility] Comment on above: Performed By: #### L 500.2500, L100.0100 ####[facility] [address] [place], [address] Erythrocyte distribution width (RBC) [Ratio] 17.1 % High 11.6-14.6 [facility] Comment on above: Performed By: #### L 500.2500, L100.0100 ####[facility] [address] [place], [address] Hematocrit (Bld) [Volume fraction] 37.3 % Normal 37-47 [facility] Comment on above: Performed By: #### L 500.2500, L100.0100 ####[facility] [address] [place], [address] Hemoglobin (Bld) [Mass/Vol] 11.1 g/dL Low 12.0-15.0 [facility] Comment on above: Performed By: #### L 500.2500, L100.0100 ####[facility] [address] [place], [address] IG% 0.700 Normal 0.0-0.9 [facility] Comment on above: Result Comment: IG% - Immature Granulocytes (promyelocytes, myelocytes andmetamyelocytes) > 1% indicates that a LEFT SHIFT is Present. Performed By: #### L 500.2500, L100.0100 ####[facility] [address] [place], [address] Lymphocytes/100 WBC (Bld) 29.2 % Normal 19-41 [facility] Comment on above: Performed By: #### L 500.2500, L100.0100 ####[facility] [address] [place], [address] MCH (RBC) [Entitic mass] 25.8 pg Low 27.0-32.0 [facility] Comment on above: Performed By: #### L 500.2500, L100.0100 ####[facility] [address] [place], [address] MCHC (RBC) [Mass/Vol] 29.8 g/dL Low 32-36 [facility] Comment on above: Performed By: #### L 500.2500, L100.0100 ####[facility] [address] [place], [address] MCV (RBC) [Entitic vol] 86.7 fL Normal 81-99 [facility] Comment on above: Performed By: #### L 500.2500, L100.0100 ####[facility] [address] [place], [address] Monocytes/100 WBC (Bld) 9.4 % Normal 0-10 [facility] Comment on above: Performed By: #### L 500.2500, L100.0100 ####[facility] [address] [place], [address] Neutrophils/100 WBC (Bld) 55.3 % Normal 47-70 [facility] Comment on above: Performed By: #### L 500.2500, L100.0100 ####[facility] [address] [place], [address] Nucleated RBC (Bld) [#/Vol] 0 10*3/uL Normal 0-5 [facility] Comment on above: Performed By: #### L 500.2500, L100.0100 ####[facility] [address] [place], [address] Platelet mean volume (Bld) [Entitic vol] 10.5 fL Normal 6.2-12.0 [facility] Comment on above: Performed By: #### L 500.2500, L100.0100 ####[facility] [address] [place], [address] Platelets (Bld) [#/Vol] 272 10*3/uL Normal 150-450 [facility] Comment on above: Performed By: #### L 500.2500, L100.0100 ####[facility] [address] [place], [address] RBC (Bld) [#/Vol] 4.30 10*6/uL Normal 4.2-5.4 [facility] Comment on above: Performed By: #### L 500.2500, L100.0100 ####[facility] [address] [place], [address] RDW SD 53.7 fl High 35.1-43.9 [facility] Comment on above: Performed By: #### L 500.2500, L100.0100 ####[facility] [address] [place], [address] WBC (Bld) [#/Vol] 6.0 10*3/uL Normal 4.4-11.0 [facility] Comment on above: Performed By: #### L 500.2500, L100.0100 ####[facility] [address] [place], [address] Bedside Glucoseon 06-26-2024 FINGERSTICK GLU 107 mg/dL High 74-106 [facility] Comment on above: Result Comment: ADAL GEMENT OF PATIENT CARE PER NURSING PROTOCOL Performed By: #### L 501.080 ####[facility] [address] [place], [address] FINGERSTICK GLU 120 mg/dL High 74-106 [facility] Comment on above: Result Comment: ADAL GEMENT OF PATIENT CARE PER NURSING PROTOCOL Performed By: #### L 501.080 ####[facility] [address] [place], [address] FINGERSTICK GLU 66 mg/dL Low 74-106 [facility] Comment on above: Result Comment: ADAL GEMENT OF PATIENT CARE PER NURSING PROTOCOL Performed By: #### L 501.080 ####[facility] [address] [place], [address] FINGERSTICK GLU 181 mg/dL High 74-106 [facility] Comment on above: Result Comment: ADAL GEMENT OF PATIENT CARE PER NURSING PROTOCOL Performed By: #### L 501.080 ####[facility] [address] [place], [address] FINGERSTICK GLU 159 mg/dL High 74-106 [facility] Comment on above: Result Comment: ADAL GEMENT OF PATIENT CARE PER NURSING PROTOCOL Performed By: #### L 501.080 ####[facility] [address] [place], [address] Bedside Glucoseon 06-25-2024 FINGERSTICK GLU 87 mg/dL Normal 74-106 [facility] Comment on above: Result Comment: ADAL GEMENT OF PATIENT CARE PER NURSING PROTOCOL Performed By: #### L 501.080 ####[facility] [address] [place], [address] FINGERSTICK GLU 56 mg/dL Low 74-106 [facility] Comment on above: Result Comment: ADAL GEMENT OF PATIENT CARE PER NURSING PROTOCOL Performed By: #### L 501.080 ####[facility] [address] [place], [address] FINGERSTICK GLU 57 mg/dL Low 74-106 [facility] Comment on above: Result Comment: ADAL GEMENT OF PATIENT CARE PER NURSING PROTOCOL Performed By: #### L 501.080 ####[facility] [address] [place], [address] FINGERSTICK GLU 100 mg/dL Normal 74-106 [facility] Comment on above: Result Comment: ADAL GEMENT OF PATIENT CARE PER NURSING PROTOCOL Performed By: #### L 501.080 ####[facility] [address] [place], [address] FINGERSTICK GLU 127 mg/dL High 74-106 [facility] Comment on above: Result Comment: ADAL GEMENT OF PATIENT CARE PER NURSING PROTOCOL Performed By: #### L 501.080 ####[facility] [address] [place], [address] FINGERSTICK GLU 98 mg/dL Normal 74-106 [facility] Comment on above: Result Comment: ADAL GEMENT OF PATIENT CARE PER NURSING PROTOCOL Performed By: #### L 501.080 ####[facility] [address] [place], [address] Bedside Glucoseon 06-24-2024 FINGERSTICK GLU 90 mg/dL Normal 74-106 [facility] Comment on above: Result Comment: ADAL GEMENT OF PATIENT CARE PER NURSING PROTOCOL Performed By: #### L 501.080 ####[facility] [address] [place], [address] FINGERSTICK GLU 172 mg/dL High 74-106 [facility] Comment on above: Result Comment: ADAL GEMENT OF PATIENT CARE PER NURSING PROTOCOL Performed By: #### L 501.080 ####[facility] [address] [place], [address] FINGERSTICK GLU 147 mg/dL High 74-106 [facility] Comment on above: Result Comment: ADAL GEMENT OF PATIENT CARE PER NURSING PROTOCOL Performed By: #### L 501.080 ####[facility] [address] [place], [address] FINGERSTICK GLU 88 mg/dL Normal 74-106 [facility] Comment on above: Result Comment: ADAL GEMENT OF PATIENT CARE PER NURSING PROTOCOL Performed By: #### L 501.080 ####[facility] [address] [place], [address] FINGERSTICK GLU 59 mg/dL Low 74-106 [facility] Comment on above: Result Comment: ADAL GEMENT OF PATIENT CARE PER NURSING PROTOCOL Performed By: #### L 501.080 ####[facility] [address] [place], [address] Bedside Glucoseon 06-23-2024 FINGERSTICK GLU 129 mg/dL High [address] [place] [address] Comment on above: Result Comment: ADAL GEMENT OF PATIENT CARE PER NURSING PROTOCOL Performed By: #### L 501.080 ####[facility] [address] [place], [address] FINGERSTICK GLU 44 mg/dL Invalid Interpretation Code [address] [place] [address] Comment on above: Result Comment: [facility] k GivenRepeat TestMANAGEMENT OF PATIENT CARE PER NURSING PROTOCOL Performed By: #### L 501.080 ####[facility] [address] [place], [address] FINGERSTICK GLU 87 mg/dL Normal [address] [place] [address] Comment on above: Result Comment: ADAL GEMENT OF PATIENT CARE PER NURSING PROTOCOL Performed By: #### L 501.080 ####[facility] [address] [place], [address] FINGERSTICK GLU 110 mg/dL High [address] [place] [address] Comment on above: Result Comment: ADAL GEMENT OF PATIENT CARE PER NURSING PROTOCOL Performed By: #### L 501.080 ####[facility] [address] [place], [address] FINGERSTICK GLU 119 mg/dL High [address] [place] [address] Comment on above: Result Comment: ADAL GEMENT OF PATIENT CARE PER NURSING PROTOCOL Performed By: #### L 501.080 ####[facility] [address] [place], [address] FINGERSTICK GLU 61 mg/dL Low [address] [place] [address] Comment on above: Result Comment: ADAL GEMENT OF PATIENT CARE PER NURSING PROTOCOL Performed By: #### L 501.080 ####[facility] [address] [place], [address] COVID 19 AG RAPID (JESSICA Head)on 06-23-2024 SARS-CoV-2 (COVID-19) RNA JAYLIN+probe Ql (Unsp spec) Normal [facility] Comment on above: Performed By: #### M 100.505 ####[facility] [address] [place], [address] Basic Metabolic Profile (BMP )on 06-22-2024 BUN/CRE 33.1 RATIO High 10-20 [facility] Comment on above: Performed By: #### L 500.2500 ####[facility] [address] [place], [address] CA,Total 9.0 mg/dL Normal 8.5-10.1 [facility] Comment on above: Performed By: #### L 500.2500 ####[facility] [address] [place], [address] Chloride [Moles/Vol] 107 mmol/L Normal 98-[address] [facility] Comment on above: Performed By: #### L 500.2500 ####[facility] [address] [place], [address] CO2 [Moles/Vol] 26.0 mmol/L Normal 21.0-32.0 [facility] Comment on above: Performed By: #### L 500.2500 ####[facility] [address] [place], [address] Creatinine [Mass/Vol] 1.42 mg/dL High 0.55-1.02 [facility] Comment on above: Result Comment: The validity of the calculated GFR GFRAA in patients over70 years has not been determined. Clinical correlation isessential. Performed By: #### L 500.2500 ####[facility] [address] [place], [address] ECRCL 29.70 ml/min Normal [facility] Comment on above: Performed By: #### L 500.2500 ####[facility] [address] [place], [address] EST GFR - AA 46 mL/min Low >60 [facility] Comment on above: Result Comment: Afri can Mongolian GFR Calc Performed By: #### L 500.2500 ####[facility] [address] [place], [address] GAP 6 Normal 5-15 [address] [facility] Comment on above: Performed By: #### L 500.2500 ####[facility] [address] [place], [address] GFR/1.73 sq M.predicted among non-blacks MDRD (S/P/Bld) [Vol rate/Area] 38 mL/min/{1.73_m2} Low >60 [facility] Comment on above: Result Comment: Non- GFR Calc Performed By: #### L 500.2500 ####[facility] [address] [place], [address] Glucose [Mass/Vol] 207 mg/dL High 74-106 [facility] Comment on above: Result Comment: Gluc ose result greater than or equal to 200 mg/dLsuggests DIABETES MELLITUS per A.D.A. criteria. Performed By: #### L 500.2500 ####[facility] [address] [place], [address] Potassium [Moles/Vol] 4.1 mmol/L Normal 3.5-5.1 [facility] Comment on above: Performed By: #### L 500.2500 ####[facility] [address] [place], [address] Sodium [Moles/Vol] 139 mmol/L Normal 136-145 [facility] Comment on above: Performed By: #### L 500.2500 ####[facility] [address] [place], [address] Urea nitrogen [Mass/Vol] 47 mg/dL High 7-18 [facility] Comment on above: Performed By: #### L 500.2500 ####[facility] [address] [place], [address] BUN Normal 7-18 [facility] Comment on above: Result Comment: Canc elled via OM: Order cancelled - Patient discharged Performed By: #### L 100.0100, L500.2500 ####[facility] [address] [place], [address] BUN/CRE Normal 10-20 [facility] Comment on above: Result Comment: Canc elled via OM: Order cancelled - Patient discharged Performed By: #### L 100.0100, L500.2500 ####[facility] [address] [place], [address] CA,Total Normal 8.5-10.1 [facility] Comment on above: Result Comment: Canc elled via OM: Order cancelled - Patient discharged Performed By: #### L 100.0100, L500.2500 ####[facility] [address] [place], [address] CL Normal 98-107 [facility] Comment on above: Result Comment: Canc elled via OM: Order cancelled - Patient discharged Performed By: #### L 100.0100, L500.2500 ####[facility] [address] [place], [address] CO2 Normal 21.0-32.0 [facility] Comment on above: Result Comment: Canc elled via OM: Order cancelled - Patient discharged Performed By: #### L 100.0100, L500.2500 ####[facility] [address] [place], [address] CREAT,SERUM Normal 0.55-1.02 [facility] Comment on above: Result Comment: Canc elled via OM: Order cancelled - Patient discharged Performed By: #### L 100.0100, L500.2500 ####[facility] [address] [place], [address] EST GFR Normal >60 [facility] Comment on above: Result Comment: Canc elled via OM: Order cancelled - Patient discharged Performed By: #### L 100.0100, L500.2500 ####[facility] [address] [place], [address] EST GFR - AA Normal >60 [facility] Comment on above: Result Comment: Canc elled via OM: Order cancelled - Patient discharged Performed By: #### L 100.0100, L500.2500 ####[facility] [address] [place], [address] GAP Normal 5-15 [facility] Comment on above: Result Comment: Canc elled via OM: Order cancelled - Patient discharged Performed By: #### L 100.0100, L500.2500 ####[facility] [address] [place], [address] GLU Normal 74-106 [facility] Comment on above: Result Comment: Canc elled via OM: Order cancelled - Patient discharged Performed By: #### L 100.0100, L500.2500 ####[facility] [address] [place], [address] Potassium Normal 3.5-5.1 [facility] Comment on above: Result Comment: Canc elled via OM: Order cancelled - Patient discharged Performed By: #### L 100.0100, L500.2500 ####[facility] [address] [place], [address] Basic Metabolic Profile (BMP) Normal 136-145 [facility] Comment on above: Result Comment: Canc elled via OM: Order cancelled - Patient discharged Performed By: #### L 100.0100, L500.2500 ####[facility] [address] [place], [address] Bedside Glucoseon 06-22-2024 FINGERSTICK GLU 102 mg/dL Normal 74-106 [facility] Comment on above: Result Comment: ADAL GEMENT OF PATIENT CARE PER NURSING PROTOCOL Performed By: #### L 501.080 ####[facility] [address] [place], [address] FINGERSTICK GLU 126 mg/dL High 74-106 [facility] Comment on above: Result Comment: ADAL GEMENT OF PATIENT CARE PER NURSING PROTOCOL Performed By: #### L 501.080 ####[facility] [address] [place], [address] FINGERSTICK GLU 168 mg/dL High 74-106 [facility] Comment on above: Result Comment: ADAL GEMENT OF PATIENT CARE PER NURSING PROTOCOL Performed By: #### L 501.080 ####[facility] [address] [place], [address] FINGERSTICK GLU 196 mg/dL High 74-106 [facility] Comment on above: Result Comment: ADAL GEMENT OF PATIENT CARE PER NURSING PROTOCOL Performed By: #### L 501.080 ####[facility] [address] [place], [address] FINGERSTICK GLU 190 mg/dL High 74-106 [facility] Comment on above: Result Comment: ADAL GEMENT OF PATIENT CARE PER NURSING PROTOCOL Performed By: #### L 501.080 ####[facility] [address] [place], [address] FINGERSTICK GLU 173 mg/dL High -106 [facility] Comment on above: Result Comment: ADAL GEMENT OF PATIENT CARE PER NURSING PROTOCOL Performed By: #### L 501.080 ####[facility] [address] [place], [address] CBC W/Diff, Automatedon 12-0 -2023 Absolute Neut Normal 2.0-7.7 [facility] Comment on above: Result Comment: Canc elled via OM: Order cancelled - Patient discharged Performed By: #### L 100.0100, L500.2500 ####[facility] [address] [place], [address] HCT Normal 37-47 [facility] Comment on above: Result Comment: Canc elled via OM: Order cancelled - Patient discharged Performed By: #### L 100.0100, L500.2500 ####[facility] [address] [place], [address] HGB Normal 12.0-15.0 [facility] Comment on above: Result Comment: Canc elled via OM: Order cancelled - Patient discharged Performed By: #### L 100.0100, L500.2500 ####[facility] [address] [place], [address] MCH Normal 27.0-32.0 [facility] Comment on above: Result Comment: Canc elled via OM: Order cancelled - Patient discharged Performed By: #### L 100.0100, L500.2500 ####[facility] [address] [place], [address] MCHC Normal 32-36 [facility] Comment on above: Result Comment: Canc elled via OM: Order cancelled - Patient discharged Performed By: #### L 100.0100, L500.2500 ####[facility] [address] [place], [address] MCV Normal 81-99 [facility] Comment on above: Result Comment: Canc elled via OM: Order cancelled - Patient discharged Performed By: #### L 100.0100, L500.2500 ####[facility] [address] [place], [address] NEUT% Normal 47-70 [facility] Comment on above: Result Comment: Canc elled via OM: Order cancelled - Patient discharged Performed By: #### L 100.0100, L500.2500 ####[facility] [address] [place], [address] PLT Normal 150-450 [facility] Comment on above: Result Comment: Canc elled via OM: Order cancelled - Patient discharged Performed By: #### L 100.0100, L500.2500 ####[facility] [address] [place], [address] RBC Normal 4.2-5.4 [facility] Comment on above: Result Comment: Canc elled via OM: Order cancelled - Patient discharged Performed By: #### L 100.0100, L500.2500 ####[facility] [address] [place], [address] RDW CV Normal 11.6-14.6 [facility] Comment on above: Result Comment: Canc elled via OM: Order cancelled - Patient discharged Performed By: #### L 100.0100, L500.2500 ####[facility] [address] [place], [address] RDW SD Normal 35.1-43.9 [facility] Comment on above: Result Comment: Canc elled via OM: Order cancelled - Patient discharged Performed By: #### L 100.0100, L500.2500 ####[facility] [address] [place], [address] WBC Normal 4.4-11.0 [facility] Comment on above: Result Comment: Canc elled via OM: Order cancelled - Patient discharged Performed By: #### L 100.0100, L500.2500 ####[facility] [address] [place], [address] Basic Metabolic Profile (BMP )on 06-21-2024 BUN/CRE 37.0 RATIO High 10-20 [facility] Comment on above: Performed By: #### L 100.0100, L500.2500 ####[facility] [address] [place], [address] CA,Total 9.3 mg/dL Normal 8.5-10.1 [facility] Comment on above: Performed By: #### L 100.0100, L500.2500 ####[facility] [address] [place], [address] Chloride [Moles/Vol] 107 mmol/L Normal 98-[address] [facility] Comment on above: Performed By: #### L 100.0100, L500.2500 ####[facility] [address] [place], [address] CO2 [Moles/Vol] 24.0 mmol/L Normal 21.0-32.0 [facility] Comment on above: Performed By: #### L 100.0100, L500.2500 ####[facility] [address] [place], [address] Creatinine [Mass/Vol] 0.95 mg/dL Normal 0.55-1.02 [facility] Comment on above: Result Comment: The validity of the calculated GFR GFRAA in patients over70 years has not been determined. Clinical correlation isessential. Performed By: #### L 100.0100, L500.2500 ####[facility] [address] [place], [address] ECRCL 44.39 ml/min Normal [facility] Comment on above: Performed By: #### L 100.0100, L500.2500 ####[facility] [address] [place], [address] EST GFR - AA 74 mL/min Normal >60 [facility] Comment on above: Result Comment: Afri can Mongolian GFR Calc Performed By: #### L 100.0100, L500.2500 ####[facility] [address] [place], [address] GAP 7 Normal 5-15 [facility] Comment on above: Performed By: #### L 100.0100, L500.2500 ####[facility] [address] [place], [address] GFR/1.73 sq M.predicted among non-blacks MDRD (S/P/Bld) [Vol rate/Area] 61 mL/min/{1.73_m2} Normal >60 [facility] Comment on above: Result Comment: Non- GFR Calc Performed By: #### L 100.0100, L500.2500 ####[facility] [address] [place], [address] Glucose [Mass/Vol] 336 mg/dL High 74-106 [facility] Comment on above: Result Comment: Gluc ose result greater than or equal to 200 mg/dLsuggests DIABETES MELLITUS per A.D.A. criteria. Performed By: #### L 100.0100, L500.2500 ####[facility] [address] [place], [address] Potassium [Moles/Vol] 3.4 mmol/L Low 3.5-5.1 [facility] Comment on above: Performed By: #### L 100.0100, L500.2500 ####[facility] [address] [place], [address] Sodium [Moles/Vol] 138 mmol/L Normal 136-145 [facility] Comment on above: Performed By: #### L 100.0100, L500.2500 ####[facility] [address] [place], [address] Urea nitrogen [Mass/Vol] 35 mg/dL High 7-18 [facility] Comment on above: Performed By: #### L 100.0100, L500.2500 ####[facility] [address] [place], [address] BUN Normal 7-18 [facility] Comment on above: Result Comment: Canc elled via OM: Order cancelled - Patient discharged Performed By: #### L 100.0100, L500.2500 ####[facility] [address] [place], [address] BUN/CRE Normal 10-20 [facility] Comment on above: Result Comment: Canc elled via OM: Order cancelled - Patient discharged Performed By: #### L 100.0100, L500.2500 ####[facility] [address] [place], [address] CA,Total Normal 8.5-10.1 [facility] Comment on above: Result Comment: Canc elled via OM: Order cancelled - Patient discharged Performed By: #### L 100.0100, L500.2500 ####[facility] [address] [place], [address] CL Normal 98-107 [facility] Comment on above: Result Comment: Canc elled via OM: Order cancelled - Patient discharged Performed By: #### L 100.0100, L500.2500 ####[facility] [address] [place], [address] CO2 Normal 21.0-32.0 [facility] Comment on above: Result Comment: Canc elled via OM: Order cancelled - Patient discharged Performed By: #### L 100.0100, L500.2500 ####[facility] [address] [place], [address] CREAT,SERUM Normal 0.55-1.02 [facility] Comment on above: Result Comment: Canc elled via OM: Order cancelled - Patient discharged Performed By: #### L 100.0100, L500.2500 ####[facility] [address] [place], [address] EST GFR Normal >60 [facility] Comment on above: Result Comment: Canc elled via OM: Order cancelled - Patient discharged Performed By: #### L 100.0100, L500.2500 ####[facility] [address] [place], [address] EST GFR - AA Normal >60 [facility] Comment on above: Result Comment: Canc elled via OM: Order cancelled - Patient discharged Performed By: #### L 100.0100, L500.2500 ####[facility] [address] [place], [address] GAP Normal 5-15 [facility] Comment on above: Result Comment: Canc elled via OM: Order cancelled - Patient discharged Performed By: #### L 100.0100, L500.2500 ####[facility] [address] [place], [address] GLU Normal 74-106 [facility] Comment on above: Result Comment: Canc elled via OM: Order cancelled - Patient discharged Performed By: #### L 100.0100, L500.2500 ####[facility] [address] [place], [address] Potassium Normal 3.5-5.1 [facility] Comment on above: Result Comment: Canc elled via OM: Order cancelled - Patient discharged Performed By: #### L 100.0100, L500.2500 ####[facility] [address] [place], [address] Basic Metabolic Profile (BMP) Normal 136-145 [facility] Comment on above: Result Comment: Canc elled via OM: Order cancelled - Patient discharged Performed By: #### L 100.0100, L500.2500 ####[facility] [address] [place], [address] Bedside Glucoseon 06-21-2024 FINGERSTICK GLU 84 mg/dL Normal 74-106 [facility] Comment on above: Result Comment: ADAL GEMENT OF PATIENT CARE PER NURSING PROTOCOL Performed By: #### L 501.080 ####[facility] [address] [place], [address] FINGERSTICK GLU 205 mg/dL High [address] [place] [address] Comment on above: Result Comment: ADAL GEMENT OF PATIENT CARE PER NURSING PROTOCOL Performed By: #### L 501.080 ####[facility] [address] [place], [address] FINGERSTICK GLU 436 mg/dL High [address] [place] [address] Comment on above: Result Comment: ADAL GEMENT OF PATIENT CARE PER NURSING PROTOCOL Performed By: #### L 501.080 ####[facility] [address] [place], [address] FINGERSTICK GLU 464 mg/dL Invalid Interpretation Code [address] [place] [address] Comment on above: Result Comment: Dr Prisca griffith FollowedMANAGEMENT OF PATIENT CARE PER NURSING PROTOCOL Performed By: #### L 501.080 ####[facility] [address] [place], [address] FINGERSTICK GLU 303 mg/dL High [address] [place] [address] Comment on above: Result Comment: ADAL GEMENT OF PATIENT CARE PER NURSING PROTOCOL Performed By: #### L 501.080 ####[facility] [address] [place], [address] CBC W/Diff, Automatedon 12-0 Absolute Lymph 1.03 X10 3/uL Normal 0.83-4.51 [facility] Comment on above: Performed By: #### L 100.0100, L500.2500 ####[facility] [address] [place], [address] Absolute Neut 3.7 X10 3/uL Normal 2.0-7.7 [facility] Comment on above: Performed By: #### L 100.0100, L500.2500 ####[facility] [address] [place], [address] Basophils/100 WBC (Bld) 0.5 % Normal 0-1 [facility] Comment on above: Performed By: #### L 100.0100, L500.2500 ####[facility] [address] [place], [address] Eosinophils/100 WBC (Bld) 4.3 % Normal 0-5 [facility] Comment on above: Performed By: #### L 100.0100, L500.2500 ####[facility] [address] [place], [address] Erythrocyte distribution width (RBC) [Ratio] 16.3 % High 11.6-14.6 [facility] Comment on above: Performed By: #### L 100.0100, L500.2500 ####[facility] [address] [place], [address] Hematocrit (Bld) [Volume fraction] 37.0 % Normal 37-47 [facility] Comment on above: Performed By: #### L 100.0100, L500.2500 ####[facility] [address] [place], [address] Hemoglobin (Bld) [Mass/Vol] 11.3 g/dL Low 12.0-15.0 [facility] Comment on above: Performed By: #### L 100.0100, L500.2500 ####[facility] [address] [place], [address] IG% 0.400 Normal 0.0-0.9 [facility] Comment on above: Result Comment: IG% - Immature Granulocytes (promyelocytes, myelocytes andmetamyelocytes) > 1% indicates that a LEFT SHIFT is Present. Performed By: #### L 100.0100, L500.2500 ####[facility] [address] [place], [address] Lymphocytes/100 WBC (Bld) 18.6 % Low 19-41 [facility] Comment on above: Performed By: #### L 100.0100, L500.2500 ####[facility] [address] [place], [address] MCH (RBC) [Entitic mass] 25.6 pg Low 27.0-32.0 [facility] Comment on above: Performed By: #### L 100.0100, L500.2500 ####[facility] [address] [place], [address] MCHC (RBC) [Mass/Vol] 30.5 g/dL Low 32-36 [facility] Comment on above: Performed By: #### L 100.0100, L500.2500 ####[facility] [address] [place], [address] MCV (RBC) [Entitic vol] 83.9 fL Normal 81-99 [facility] Comment on above: Performed By: #### L 100.0100, L500.2500 ####[facility] [address] [place], [address] Monocytes/100 WBC (Bld) 8.5 % Normal 0-10 [facility] Comment on above: Performed By: #### L 100.0100, L500.2500 ####[facility] [address] [place], [address] Neutrophils/100 WBC (Bld) 67.7 % Normal 47-70 [facility] Comment on above: Performed By: #### L 100.0100, L500.2500 ####[facility] [address] [place], [address] Nucleated RBC (Bld) [#/Vol] 0 10*3/uL Normal 0-5 [facility] Comment on above: Performed By: #### L 100.0100, L500.2500 ####[facility] [address] [place], [address] Platelet mean volume (Bld) [Entitic vol] 10.9 fL Normal 6.2-12.0 [facility] Comment on above: Performed By: #### L 100.0100, L500.2500 ####[facility] [address] [place], [address] Platelets (Bld) [#/Vol] 224 10*3/uL Normal 150-450 [facility] Comment on above: Performed By: #### L 100.0100, L500.2500 ####[facility] [address] [place], [address] RBC (Bld) [#/Vol] 4.41 10*6/uL Normal 4.2-5.4 [facility] Comment on above: Performed By: #### L 100.0100, L500.2500 ####[facility] [address] [place], [address] RDW SD 50.3 fl High 35.1-43.9 [facility] Comment on above: Performed By: #### L 100.0100, L500.2500 ####[facility] [address] [place], [address] WBC (Bld) [#/Vol] 5.5 10*3/uL Normal 4.4-11.0 [facility] Comment on above: Performed By: #### L 100.0100, L500.2500 ####[facility] [address] [place], [address] Absolute Neut Normal 2.0-7.7 [facility] Comment on above: Result Comment: Canc elled via OM: Order cancelled - Patient discharged Performed By: #### L 100.0100, L500.2500 ####[facility] [address] [place], [address] HCT Normal 37-47 [facility] Comment on above: Result Comment: Canc elled via OM: Order cancelled - Patient discharged Performed By: #### L 100.0100, L500.2500 ####[facility] [address] [place], [address] HGB Normal 12.0-15.0 [facility] Comment on above: Result Comment: Canc elled via OM: Order cancelled - Patient discharged Performed By: #### L 100.0100, L500.2500 ####[facility] [address] [place], [address] MCH Normal 27.0-32.0 [facility] Comment on above: Result Comment: Canc elled via OM: Order cancelled - Patient discharged Performed By: #### L 100.0100, L500.2500 ####[facility] [address] [place], [address] MCHC Normal 32-36 [facility] Comment on above: Result Comment: Canc elled via OM: Order cancelled - Patient discharged Performed By: #### L 100.0100, L500.2500 ####[facility] [address] [place], [address] MCV Normal 81-99 [facility] Comment on above: Result Comment: Canc elled via OM: Order cancelled - Patient discharged Performed By: #### L 100.0100, L500.2500 ####[facility] [address] [place], [address] NEUT% Normal 47-70 [facility] Comment on above: Result Comment: Canc elled via OM: Order cancelled - Patient discharged Performed By: #### L 100.0100, L500.2500 ####[facility] [address] [place], [address] PLT Normal 150-450 [facility] Comment on above: Result Comment: Canc elled via OM: Order cancelled - Patient discharged Performed By: #### L 100.0100, L500.2500 ####[facility] [address] [place], [address] RBC Normal 4.2-5.4 [facility] Comment on above: Result Comment: Canc elled via OM: Order cancelled - Patient discharged Performed By: #### L 100.0100, L500.2500 ####[facility] [address] [place], [address] RDW CV Normal 11.6-14.6 [facility] Comment on above: Result Comment: Canc elled via OM: Order cancelled - Patient discharged Performed By: #### L 100.0100, L500.2500 ####[facility] [address] [place], [address] RDW SD Normal 35.1-43.9 [facility] Comment on above: Result Comment: Canc elled via OM: Order cancelled - Patient discharged Performed By: #### L 100.0100, L500.2500 ####[facility] [address] [place], [address] WBC Normal 4.4-11.0 [facility] Comment on above: Result Comment: Canc elled via OM: Order cancelled - Patient discharged Performed By: #### L 100.0100, L500.2500 ####[facility] [address] [place], [address] Basic Metabolic Profile (BMP )on 06-20-2024 BUN/CRE 38.0 RATIO High 10-20 [facility] Comment on above: Performed By: #### L 500.2500, L100.0100 ####[facility] [address] [place], [address] CA,Total 9.4 mg/dL Normal 8.5-10.1 [facility] Comment on above: Performed By: #### L 500.2500, L100.0100 ####[facility] [address] [place], [address] Chloride [Moles/Vol] 107 mmol/L Normal 98-[address] [facility] Comment on above: Performed By: #### L 500.2500, L100.0100 ####[facility] [address] [place], [address] CO2 [Moles/Vol] 24.0 mmol/L Normal 21.0-32.0 [facility] Comment on above: Performed By: #### L 500.2500, L100.0100 ####[facility] [address] [place], [address] Creatinine [Mass/Vol] 1.21 mg/dL High 0.55-1.02 [facility] Comment on above: Result Comment: The validity of the calculated GFR GFRAA in patients over70 years has not been determined. Clinical correlation isessential. Performed By: #### L 500.2500, L100.0100 ####[facility] [address] [place], [address] ECRCL 37.86 ml/min Normal [facility] Comment on above: Performed By: #### L 500.2500, L100.0100 ####[facility] [address] [place], [address] EST GFR - AA 56 mL/min Low >60 [facility] Comment on above: Result Comment: Afri can Mongolian GFR Calc Performed By: #### L 500.2500, L100.0100 ####[facility] [address] [place], [address] GAP 8 Normal 5-15 [facility] Comment on above: Performed By: #### L 500.2500, L100.0100 ####[facility] [address] [place], [address] GFR/1.73 sq M.predicted among non-blacks MDRD (S/P/Bld) [Vol rate/Area] 46 mL/min/{1.73_m2} Low >60 [facility] Comment on above: Result Comment: Non- GFR Calc Performed By: #### L 500.2500, L100.0100 ####[facility] [address] [place], [address] Glucose [Mass/Vol] 228 mg/dL High 74-106 [facility] Comment on above: Result Comment: Gluc ose result greater than or equal to 200 mg/dLsuggests DIABETES MELLITUS per A.D.A. criteria. Performed By: #### L 500.2500, L100.0100 ####[facility] [address] [place], [address] Potassium [Moles/Vol] 3.1 mmol/L Low 3.5-5.1 [facility] Comment on above: Performed By: #### L 500.2500, L100.0100 ####[facility] [address] [place], [address] Sodium [Moles/Vol] 138 mmol/L Normal 136-145 [facility] Comment on above: Performed By: #### L 500.2500, L100.0100 ####[facility] [address] [place], [address] Urea nitrogen [Mass/Vol] 46 mg/dL High 7-18 [facility] Comment on above: Performed By: #### L 500.2500, L100.0100 ####[facility] [address] [place], [address] Bedside Glucoseon 06-20-2024 FINGERSTICK GLU 270 mg/dL High 74-106 [facility] Comment on above: Result Comment: ADAL GOODEN OF PATIENT CARE PER NURSING PROTOCOL Performed By: #### L 501.080 ####[facility] [address] [place], [address] FINGERSTICK GLU 328 mg/dL High 74-106 [facility] Comment on above: Result Comment: ADAL GEMENT OF PATIENT CARE PER NURSING PROTOCOL Performed By: #### L 501.080 ####[facility] [address] [place], [address] FINGERSTICK GLU 350 mg/dL High 74-106 [facility] Comment on above: Result Comment: ADAL GEMENT OF PATIENT CARE PER NURSING PROTOCOL Performed By: #### L 501.080 ####[facility] [address] [place], [address] FINGERSTICK GLU 230 mg/dL High 74-106 [facility] Comment on above: Result Comment: ADAL GEMENT OF PATIENT CARE PER NURSING PROTOCOL Performed By: #### L 501.080 ####[facility] [address] [place], [address] CBC W/Diff, Automatedon 12-0 6-4 Absolute Lymph 1.50 X10 3/uL Normal 0.83-4.51 [facility] Comment on above: Performed By: #### L 500.2500, L100.0100 ####[facility] [address] [place], [address] Absolute Neut 4.1 X10 3/uL Normal 2.0-7.7 [facility] Comment on above: Performed By: #### L 500.2500, L100.0100 ####[facility] [address] [place], [address] Basophils/100 WBC (Bld) 0.6 % Normal 0-1 [facility] Comment on above: Performed By: #### L 500.2500, L100.0100 ####[facility] [address] [place], [address] Eosinophils/100 WBC (Bld) 3.1 % Normal 0-5 [facility] Comment on above: Performed By: #### L 500.2500, L100.0100 ####[facility] [address] [place], [address] Erythrocyte distribution width (RBC) [Ratio] 16.7 % High 11.6-14.6 [facility] Comment on above: Performed By: #### L 500.2500, L100.0100 ####[facility] [address] [place], [address] Hematocrit (Bld) [Volume fraction] 39.3 % Normal 37-47 [facility] Comment on above: Performed By: #### L 500.2500, L100.0100 ####[facility] [address] [place], [address] Hemoglobin (Bld) [Mass/Vol] 12.1 g/dL Normal 12.0-15.0 [facility] Comment on above: Performed By: #### L 500.2500, L100.0100 ####[facility] [address] [place], [address] IG% 0.500 Normal 0.0-0.9 [facility] Comment on above: Result Comment: IG% - Immature Granulocytes (promyelocytes, myelocytes andmetamyelocytes) > 1% indicates that a LEFT SHIFT is Present. Performed By: #### L 500.2500, L100.0100 ####[facility] [address] [place], [address] Lymphocytes/100 WBC (Bld) 23.1 % Normal 19-41 [facility] Comment on above: Performed By: #### L 500.2500, L100.0100 ####[facility] [address] [place], [address] MCH (RBC) [Entitic mass] 26.2 pg Low 27.0-32.0 [facility] Comment on above: Performed By: #### L 500.2500, L100.0100 ####[facility] [address] [place], [address] MCHC (RBC) [Mass/Vol] 30.8 g/dL Low 32-36 [facility] Comment on above: Performed By: #### L 500.2500, L100.0100 ####[facility] [address] [place], [address] MCV (RBC) [Entitic vol] 85.2 fL Normal 81-99 [facility] Comment on above: Performed By: #### L 500.2500, L100.0100 ####[facility] [address] [place], [address] Monocytes/100 WBC (Bld) 9.0 % Normal 0-10 [facility] Comment on above: Performed By: #### L 500.2500, L100.0100 ####[facility] [address] [place], [address] Neutrophils/100 WBC (Bld) 63.7 % Normal 47-70 [facility] Comment on above: Performed By: #### L 500.2500, L100.0100 ####[facility] [address] [place], [address] Nucleated RBC (Bld) [#/Vol] 0 10*3/uL Normal 0-5 [facility] Comment on above: Performed By: #### L 500.2500, L100.0100 ####[facility] [address] [place], [address] Platelet mean volume (Bld) [Entitic vol] 10.9 fL Normal 6.2-12.0 [facility] Comment on above: Performed By: #### L 500.2500, L100.0100 ####[facility] [address] [place], [address] Platelets (Bld) [#/Vol] 196 10*3/uL Normal 150-450 [facility] Comment on above: Performed By: #### L 500.2500, L100.0100 ####[facility] [address] [place], [address] RBC (Bld) [#/Vol] 4.61 10*6/uL Normal 4.2-5.4 [facility] Comment on above: Performed By: #### L 500.2500, L100.0100 ####[facility] [address] [place], [address] RDW SD 51.9 fl High 35.1-43.9 [facility] Comment on above: Performed By: #### L 500.2500, L100.0100 ####[facility] [address] [place], [address] WBC (Bld) [#/Vol] 6.5 10*3/uL Normal 4.4-11.0 [facility] Comment on above: Performed By: #### L 500.2500, L100.0100 ####[facility] [address] [place], [address] Urine Cultureon 06-20-[address] [facility] Comment on above: Performed By: #### M 100.2200 ####[facility] [address] [place], [address] Basic Metabolic Profile (BMP )on 06-19-2024 BUN/CRE 27.9 RATIO High 10-20 [facility] Comment on above: Performed By: #### L 500.2500, L501.5200, L100.0100, L501.2300 ####[facility] [address] [place], [address] CA,Total 9.6 mg/dL Normal 8.5-10.1 [facility] Comment on above: Performed By: #### L 500.2500, L501.5200, L100.0100, L501.2300 ####[facility] [address] [place], [address] Chloride [Moles/Vol] 108 mmol/L High 98-[address] [facility] Comment on above: Performed By: #### L 500.2500, L501.5200, L100.0100, L501.2300 ####[facility] [address] [place], [address] CO2 [Moles/Vol] 22.0 mmol/L Normal 21.0-32.0 [facility] Comment on above: Performed By: #### L 500.2500, L501.5200, L100.0100, L501.2300 ####[facility] [address] [place], [address] Creatinine [Mass/Vol] 1.54 mg/dL High 0.55-1.02 [facility] Comment on above: Result Comment: The validity of the calculated GFR GFRAA in patients over70 years has not been determined. Clinical correlation isessential. Performed By: #### L 500.2500, L501.5200, L100.0100, L501.2300 ####[facility] [address] [place], [address] ECRCL 29.75 ml/min Normal [facility] Comment on above: Performed By: #### L 500.2500, L501.5200, L100.0100, L501.2300 ####[facility] [address] [place], [address] EST GFR - AA 42 mL/min Low >60 [facility] Comment on above: Result Comment: Afri can Mongolian GFR Calc Performed By: #### L 500.2500, L501.5200, L100.0100, L501.2300 ####[facility] [address] [place], [address] GAP 10 Normal 5-15 [facility] Comment on above: Performed By: #### L 500.2500, L501.5200, L100.0100, L501.2300 ####[facility] [address] [place], [address] GFR/1.73 sq M.predicted among non-blacks MDRD (S/P/Bld) [Vol rate/Area] 35 mL/min/{1.73_m2} Low >60 [facility] Comment on above: Result Comment: Non- GFR Calc Performed By: #### L 500.2500, L501.5200, L100.0100, L501.2300 ####[facility] [address] [place], [address] Glucose [Mass/Vol] 227 mg/dL High 74-106 [facility] Comment on above: Result Comment: Gluc ose result greater than or equal to 200 mg/dLsuggests DIABETES MELLITUS per A.D.A. criteria. Performed By: #### L 500.2500, L501.5200, L100.0100, L501.2300 ####[facility] [address] [place], [address] Potassium [Moles/Vol] 3.3 mmol/L Low 3.5-5.1 [facility] Comment on above: Performed By: #### L 500.2500, L501.5200, L100.0100, L501.2300 ####[facility] [address] [place], [address] Sodium [Moles/Vol] 139 mmol/L Normal 136-145 [facility] Comment on above: Performed By: #### L 500.2500, L501.5200, L100.0100, L501.2300 ####[facility] [address] [place], [address] Urea nitrogen [Mass/Vol] 43 mg/dL High 7-18 [facility] Comment on above: Performed By: #### L 500.2500, L501.5200, L100.0100, L501.2300 ####[facility] [address] [place], [address] Bedside Glucoseon 06-19-2024 FINGERSTICK GLU 241 mg/dL High 74-106 [facility] Comment on above: Result Comment: ADAL GEMENT OF PATIENT CARE PER NURSING PROTOCOL Performed By: #### L 501.080 ####[facility] [address] [place], [address] FINGERSTICK GLU 233 mg/dL High [facility]106 [facility] Comment on above: Result Comment: ADAL GEMENT OF PATIENT CARE PER NURSING PROTOCOL Performed By: #### L 501.080 ####[facility] [address] [place], [address] FINGERSTICK GLU 281 mg/dL High [facility]106 [facility] Comment on above: Result Comment: ADAL GEMENT OF PATIENT CARE PER NURSING PROTOCOL Performed By: #### L 501.080 ####[facility] [address] [place], [address] FINGERSTICK GLU 255 mg/dL High [facility]106 [facility] Comment on above: Result Comment: ADAL GEMENT OF PATIENT CARE PER NURSING PROTOCOL Performed By: #### L 501.080 ####[facility] [address] [place], [address] CBC W/Diff, Automatedon Absolute Lymph 1.50 X10 3/uL Normal 0.83-4.51 [facility] Comment on above: Performed By: #### L 500.2500, L501.5200, L100.0100, L501.2300 ####[facility] [address] [place], [address] Absolute Neut 7.0 X10 3/uL Normal 2.0-7.7 [facility] Comment on above: Performed By: #### L 500.2500, L501.5200, L100.0100, L501.2300 ####[facility] [address] [place], [address] Basophils/100 WBC (Bld) 0.4 % Normal 0-1 [facility] Comment on above: Performed By: #### L 500.2500, L501.5200, L100.0100, L501.2300 ####[facility] [address] [place], [address] Eosinophils/100 WBC (Bld) 0.3 % Normal 0-5 [facility] Comment on above: Performed By: #### L 500.2500, L501.5200, L100.0100, L501.2300 ####[facility] [address] [place], [address] Erythrocyte distribution width (RBC) [Ratio] 16.7 % High 11.6-14.6 [facility] Comment on above: Performed By: #### L 500.2500, L501.5200, L100.0100, L501.2300 ####[facility] [address] [place], [address] Hematocrit (Bld) [Volume fraction] 37.9 % Normal 37-47 [facility] Comment on above: Performed By: #### L 500.2500, L501.5200, L100.0100, L501.2300 ####[facility] [address] [place], [address] Hemoglobin (Bld) [Mass/Vol] 11.9 g/dL Low 12.0-15.0 [facility] Comment on above: Performed By: #### L 500.2500, L501.5200, L100.0100, L501.2300 ####[facility] [address] [place], [address] IG% 0.400 Normal 0.0-0.9 [facility] Comment on above: Result Comment: IG% - Immature Granulocytes (promyelocytes, myelocytes andmetamyelocytes) > 1% indicates that a LEFT SHIFT is Present. Performed By: #### L 500.2500, L501.5200, L100.0100, L501.2300 ####[facility] [address] [place], [address] Lymphocytes/100 WBC (Bld) 16.0 % Low 19-41 [facility] Comment on above: Performed By: #### L 500.2500, L501.5200, L100.0100, L501.2300 ####[facility] [address] [place], [address] MCH (RBC) [Entitic mass] 26.6 pg Low 27.0-32.0 [facility] Comment on above: Performed By: #### L 500.2500, L501.5200, L100.0100, L501.2300 ####[facility] [address] [place], [address] MCHC (RBC) [Mass/Vol] 31.4 g/dL Low 32-36 [facility] Comment on above: Performed By: #### L 500.2500, L501.5200, L100.0100, L501.2300 ####[facility] [address] [place], [address] MCV (RBC) [Entitic vol] 84.8 fL Normal 81-99 [facility] Comment on above: Performed By: #### L 500.2500, L501.5200, L100.0100, L501.2300 ####[facility] [address] [place], [address] Monocytes/100 WBC (Bld) 8.2 % Normal 0-10 [facility] Comment on above: Performed By: #### L 500.2500, L501.5200, L100.0100, L501.2300 ####[facility] [address] [place], [address] Neutrophils/100 WBC (Bld) 74.7 % High 47-70 [facility] Comment on above: Performed By: #### L 500.2500, L501.5200, L100.0100, L501.2300 ####[facility] [address] [place], [address] Nucleated RBC (Bld) [#/Vol] 0 10*3/uL Normal 0-5 [facility] Comment on above: Performed By: #### L 500.2500, L501.5200, L100.0100, L501.2300 ####[facility] [address] [place], [address] Platelet mean volume (Bld) [Entitic vol] 10.7 fL Normal 6.2-12.0 [facility] Comment on above: Performed By: #### L 500.2500, L501.5200, L100.0100, L501.2300 ####[facility] [address] [place], [address] Platelets (Bld) [#/Vol] 217 10*3/uL Normal 150-450 [facility] Comment on above: Performed By: #### L 500.2500, L501.5200, L100.0100, L501.2300 ####[facility] [address] [place], [address] RBC (Bld) [#/Vol] 4.47 10*6/uL Normal 4.2-5.4 [facility] Comment on above: Performed By: #### L 500.2500, L501.5200, L100.0100, L501.2300 ####[facility] [address] [place], [address] RDW SD 52.4 fl High 35.1-43.9 [facility] Comment on above: Performed By: #### L 500.2500, L501.5200, L100.0100, L501.2300 ####[facility] [address] [place], [address] WBC (Bld) [#/Vol] 9.4 10*3/uL Normal 4.4-11.0 [facility] Comment on above: Performed By: #### L 500.2500, L501.5200, L100.0100, L501.2300 ####[facility] [address] [place], [address] Magnesiumon 06-19-2024 Magnesium [Mass/Vol] 2.0 mg/dL Normal 1.6-2.[address] [facility] Comment on above: Performed By: #### L 500.2500, L501.5200, L100.0100, L501.2300 ####[facility] [address] [place], [address] Phosphoruson 06-19-2024 Phosphate [Mass/Vol] 2.4 mg/dL Low 2.5-4.[address] [facility] Comment on above: Performed By: #### L 500.2500, L501.5200, L100.0100, L501.2300 ####[facility] [address] [place], [address] Bedside Glucoseon 06-18-2024 FINGERSTICK GLU 245 mg/dL High 74-106 [facility] Comment on above: Result Comment: ADAL GEMENT OF PATIENT CARE PER NURSING PROTOCOL Performed By: #### L 501.080 ####[facility] [id number] [place], [address] FINGERSTICK GLU 309 mg/dL High 74-106 [facility] Comment on above: Result Comment: ADAL GEMENT OF PATIENT CARE PER NURSING PROTOCOL Performed By: #### L 501.080 ####[facility] [id number] [place], [address] FINGERSTICK GLU 234 mg/dL High 74-106 [facility] Comment on above: Result Comment: ADAL GEMENT OF PATIENT CARE PER NURSING PROTOCOL Performed By: #### L 501.080 ####[facility] [id number] [place], [place], [address] [address] GLU 408 mg/dL High 74-106 [facility] Comment on above: Result Comment: ADAL GEMENT OF PATIENT CARE PER NURSING PROTOCOL Performed By: #### L 501.080 ####[facility] [address] [place], [address] CBC W/Diff, Automatedon 12-0 -2023 Absolute Lymph 0.81 X10 3/uL Low 0.83-4.51 [facility] Comment on above: Performed By: #### L 500.4050, L100.0100, L501.9985, L501.9520, L501.2300 ####[facility] [address] [place], [address] Absolute Neut 13.1 X10 3/uL High 2.0-7.7 [facility] Comment on above: Performed By: #### L 500.4050, L100.0100, L501.9985, L501.9520, L501.2300 ####[facility] [address] [place], [address] Basophils/100 WBC (Bld) 0.2 % Normal 0-1 [facility] Comment on above: Performed By: #### L 500.4050, L100.0100, L501.9985, L501.9520, L501.2300 ####[facility] [address] [place], [address] Eosinophils/100 WBC (Bld) 0.0 % Normal 0-5 [facility] Comment on above: Performed By: #### L 500.4050, L100.0100, L501.9985, L501.9520, L501.2300 ####[facility] [address] [place], [address] Erythrocyte distribution width (RBC) [Ratio] 16.4 % High 11.6-14.6 [facility] Comment on above: Performed By: #### L 500.4050, L100.0100, L501.9985, L501.9520, L501.2300 ####[facility] [address] [place], [address] Hematocrit (Bld) [Volume fraction] 41.4 % Normal 37-47 [facility] Comment on above: Performed By: #### L 500.4050, L100.0100, L501.9985, L501.9520, L501.2300 ####[facility] [address] [place], [address] Hemoglobin (Bld) [Mass/Vol] 12.8 g/dL Normal 12.0-15.0 [facility] Comment on above: Performed By: #### L 500.4050, L100.0100, L501.9985, L501.9520, L501.2300 ####[facility] [address] [place], [address] IG% 0.500 Normal 0.0-0.9 [facility] Comment on above: Result Comment: IG% - Immature Granulocytes (promyelocytes, myelocytes andmetamyelocytes) > 1% indicates that a LEFT SHIFT is Present. Performed By: #### L 500.4050, L100.0100, L501.9985, L501.9520, L501.2300 ####[facility] [address] [place], [address] Lymphocytes/100 WBC (Bld) 5.5 % Low 19-41 [facility] Comment on above: Performed By: #### L 500.4050, L100.0100, L501.9985, L501.9520, L501.2300 ####[facility] [address] [place], [address] MCH (RBC) [Entitic mass] 26.1 pg Low 27.0-32.0 [facility] Comment on above: Performed By: #### L 500.4050, L100.0100, L501.9985, L501.9520, L501.2300 ####[facility] [address] [place], [address] MCHC (RBC) [Mass/Vol] 30.9 g/dL Low 32-36 [facility] Comment on above: Performed By: #### L 500.4050, L100.0100, L501.9985, L501.9520, L501.2300 ####[facility] [address] [place], [address] MCV (RBC) [Entitic vol] 84.5 fL Normal 81-99 [facility] Comment on above: Performed By: #### L 500.4050, L100.0100, L501.9985, L501.9520, L501.2300 ####[facility] [address] [place], [address] Monocytes/100 WBC (Bld) 5.2 % Normal 0-10 [facility] Comment on above: Performed By: #### L 500.4050, L100.0100, L501.9985, L501.9520, L501.2300 ####[facility] [address] [place], [address] Neutrophils/100 WBC (Bld) 88.6 % High 47-70 [facility] Comment on above: Performed By: #### L 500.4050, L100.0100, L501.9985, L501.9520, L501.2300 ####[facility] [address] [place], [address] Nucleated RBC (Bld) [#/Vol] 0 10*3/uL Normal 0-5 [facility] Comment on above: Performed By: #### L 500.4050, L100.0100, L501.9985, L501.9520, L501.2300 ####[facility] [address] [place], [address] Platelet mean volume (Bld) [Entitic vol] 11.0 fL Normal 6.2-12.0 [facility] Comment on above: Performed By: #### L 500.4050, L100.0100, L501.9985, L501.9520, L501.2300 ####[facility] [address] [place], [address] Platelets (Bld) [#/Vol] 254 10*3/uL Normal 150-450 [facility] Comment on above: Performed By: #### L 500.4050, L100.0100, L501.9985, L501.9520, L501.2300 ####[facility] [address] [place], [address] RBC (Bld) [#/Vol] 4.90 10*6/uL Normal 4.2-5.4 [facility] Comment on above: Performed By: #### L 500.4050, L100.0100, L501.9985, L501.9520, L501.2300 ####[facility] [address] [place], [address] RDW SD 51.1 fl High 35.1-43.9 [facility] Comment on above: Performed By: #### L 500.4050, L100.0100, L501.9985, L501.9520, L501.2300 ####[facility] [address] [place], [address] WBC (Bld) [#/Vol] 14.8 10*3/uL High 4.4-11.0 [facility] Comment on above: Performed By: #### L 500.4050, L100.0100, L501.9985, L501.9520, L501.2300 ####[facility] [address] [place], [address] Comprehensive Metabolic Prof ilon 06-18-2024 Albumin [Mass/Vol] 3.4 g/dL Normal 3.2-5.0 [facility] Comment on above: Performed By: #### L 500.4050, L100.0100, L501.9985, L501.9520, L501.2300 ####[facility] [address] [place], [address] Albumin/Globulin [Mass ratio] 0.9 {ratio} Normal 0.9-2.4 [facility] Comment on above: Performed By: #### L 500.4050, L100.0100, L501.9985, L501.9520, L501.2300 ####[facility] [address] [place], [address] ALK P 128 U/L High 45-117 [facility] Comment on above: Performed By: #### L 500.4050, L100.0100, L501.9985, L501.9520, L501.2300 ####[facility] [address] [place], [address] ALT [Catalytic activity/Vol] 23 U/L Normal 13-56 [facility] Comment on above: Performed By: #### L 500.4050, L100.0100, L501.9985, L501.9520, L501.2300 ####[facility] [address] [place], [address] AST [Catalytic activity/Vol] 35 U/L Normal 15-37 [facility] Comment on above: Performed By: #### L 500.4050, L100.0100, L501.9985, L501.9520, L501.2300 ####[facility] [address] [place], [address] Bilirubin [Mass/Vol] 0.80 mg/dL Normal 0.20-1.[address] [facility] Comment on above: Result Comment: For patients on eltrombopag therapy, use of Dimension [place] TBIL is not recommended. Performed By: #### L 500.4050, L100.0100, L501.9985, L501.9520, L501.2300 ####[facility] [address] [place], [address] BUN/CRE 23.2 RATIO High 10-20 [facility] Comment on above: Performed By: #### L 500.4050, L100.0100, L501.9985, L501.9520, L501.2300 ####[facility] [address] [place], [address] CA,Total 9.6 mg/dL Normal 8.5-10.1 [facility] Comment on above: Performed By: #### L 500.4050, L100.0100, L501.9985, L501.9520, L501.2300 ####[facility] [address] [place], [address] Chloride [Moles/Vol] 108 mmol/L High 98-[address] [facility] Comment on above: Performed By: #### L 500.4050, L100.0100, L501.9985, L501.9520, L501.2300 ####[facility] [address] [place], [address] CO2 [Moles/Vol] 24.0 mmol/L Normal 21.0-32.0 [facility] Comment on above: Performed By: #### L 500.4050, L100.0100, L501.9985, L501.9520, L501.2300 ####[facility] [address] [place], [address] Creatinine [Mass/Vol] 1.25 mg/dL High 0.55-1.02 [facility] Comment on above: Result Comment: The validity of the calculated GFR GFRAA in patients over70 years has not been determined. Clinical correlation isessential. Performed By: #### L 500.4050, L100.0100, L501.9985, L501.9520, L501.2300 ####[facility] [address] [place], [address] ECRCL 36.68 ml/min Normal [facility] Comment on above: Performed By: #### L 500.4050, L100.0100, L501.9985, L501.9520, L501.2300 ####[facility] [address] [place], [address] EST GFR - AA 53 mL/min Low >60 [facility] Comment on above: Result Comment: Afri can Mongolian GFR Calc Performed By: #### L 500.4050, L100.0100, L501.9985, L501.9520, L501.2300 ####[facility] [address] [place], [address] GAP 8 Normal 5-15 [facility] Comment on above: Performed By: #### L 500.4050, L100.0100, L501.9985, L501.9520, L501.2300 ####[facility] [address] [place], [address] GFR/1.73 sq M.predicted among non-blacks MDRD (S/P/Bld) [Vol rate/Area] 44 mL/min/{1.73_m2} Low >60 [facility] Comment on above: Result Comment: Non- GFR Calc Performed By: #### L 500.4050, L100.0100, L501.9985, L501.9520, L501.2300 ####[facility] [address] [place], [address] Globulin (S) [Mass/Vol] 3.6 g/dL Normal 2.2-4.2 [facility] Comment on above: Performed By: #### L 500.4050, L100.0100, L501.9985, L501.9520, L501.2300 ####[facility] [address] [place], [address] Glucose [Mass/Vol] 355 mg/dL High 74-106 [facility] Comment on above: Result Comment: Gluc ose result greater than or equal to 200 mg/dLsuggests DIABETES MELLITUS per A.D.A. criteria. Performed By: #### L 500.4050, L100.0100, L501.9985, L501.9520, L501.2300 ####[facility] [address] [place], [address] Potassium [Moles/Vol] 3.5 mmol/L Normal 3.5-5.1 [facility] Comment on above: Performed By: #### L 500.4050, L100.0100, L501.9985, L501.9520, L501.2300 ####[facility] [address] [place], [address] Sodium [Moles/Vol] 140 mmol/L Normal 136-145 [facility] Comment on above: Performed By: #### L 500.4050, L100.0100, L501.9985, L501.9520, L501.2300 ####[facility] [address] [place], [address] T PROT 7.0 g/dL Normal 6.4-8.2 [facility] Comment on above: Performed By: #### L 500.4050, L100.0100, L501.9985, L501.9520, L501.2300 ####[facility] [address] [place], [address] Urea nitrogen [Mass/Vol] 29 mg/dL High 7-18 [facility] Comment on above: Performed By: #### L 500.4050, L100.0100, L501.9985, L501.9520, L501.2300 ####[facility] [address] [place], [address] Consultation - Infectious Dx on 06-18-2024 Consultation - Infectious Dx Normal [facility] Hemoglobin A1con 06-18-2024 HbA1c (Bld) [Mass fraction] 8.5 % High 3.8-5.6 [facility] Comment on above: Result Comment: Norm al < 5.7 % Prediabetic 5.7 - 6.4 % Diabetic >or= 6.5 % Please note range changes. Performed By: #### L 500.4050, L100.0100, L501.9985, L501.9520, L501.2300 ####[facility] [address] [place], [address] Phosphoruson 06-18-2024 Phosphate [Mass/Vol] 3.1 mg/dL Normal 2.5-4.[address] [facility] Comment on above: Performed By: #### L 500.4050, L100.0100, L501.9985, L501.9520, L501.2300 ####[facility] [address] [place], [address] Thyroid Stim Hormone (TSH)on 06-18-2024 TSH 0.160 uIU/mL Low 0.358-3.740 [facility] Comment on above: Performed By: #### L 500.4050, L100.0100, L501.9985, L501.9520, L501.2300 ####[facility] [address] [place], [address] Urinalysis, Completeon 06-18 BACTERIA 2+ /hpf Normal None Seen [facility] Comment on above: Order Comment: SENT LABEL TO MS3 TO COLLECTCOLLECTOR TO SPECIFY Performed By: #### L 400.0001 ####[facility] [address] [place], [address] EPI,SQUAMOUS 0-5 SEEN Normal 5-10 [facility] Comment on above: Order Comment: SENT LABEL TO MS3 TO COLLECTCOLLECTOR TO SPECIFY Performed By: #### L 400.0001 ####[facility] [address] [place], [address] RBC 0-5 SEEN Normal 0-5 [facility] Comment on above: Order Comment: SENT LABEL TO MS3 TO COLLECTCOLLECTOR TO SPECIFY Performed By: #### L 400.0001 ####[facility] [address] [place], [address] WBC 10-25 SEEN Normal 0-5 [facility] Comment on above: Order Comment: SENT LABEL TO MS3 TO COLLECTCOLLECTOR TO SPECIFY Performed By: #### L 400.0001 ####[facility] [address] [place], [address] Mucus Ql (Urine sed) [address] [facility] Comment on above: Order Comment: SENT LABEL TO MS3 TO COLLECTCOLLECTOR TO SPECIFY Performed By: #### L 400.0001 ####[facility] [address] [place], [address] Vitamin D,25 Hydroxyon 06-18 Vitamin D 25-OH 83.4 ng/mL Normal [facility] Comment on above: Result Comment: Jenni min D 25(OH) Status Range Deficiency <20 ng/mL (50nmol/L) Insufficiency 20 - 30 ng/mL (50 - 75 nmol/L) Sufficiency 30 - 100 ng/mL (75 - 250 nmol/L) Toxicity >100 ng/mL (>250 nmol/L) Performed By: #### L 506.1000, L500.3400 ####[facility] [address] [place], [address] 12 Lead EKGon 06-17-[address] [facility] Ammoniaon 06-17-2024 Ammonia (P) [Mass/Vol] ug/dL Low 11-32 [facility] Comment on above: Performed By: #### L 503.5510 ####[facility] [address] [place], [address] Basic Metabolic Profile (BMP )on 06-17-2024 BUN/CRE 20.8 RATIO High 10-20 [facility] Comment on above: Order Comment: 'TROP ' Serial specimen #1, #2 or #3: 1 Performed By: #### L 500.2500, L100.0100, L501.3620, L501.4020 ####[facility] [address] [place], [address] CA,Total 11.4 mg/dL High 8.5-10.1 [facility] Comment on above: Order Comment: 'TROP ' Serial specimen #1, #2 or #3: 1 Performed By: #### L 500.2500, L100.0100, L501.3620, L501.4020 ####[facility] [address] [place], [address] Chloride [Moles/Vol] 100 mmol/L Normal 98-[address] [facility] Comment on above: Order Comment: 'TROP ' Serial specimen #1, #2 or #3: 1 Performed By: #### L 500.2500, L100.0100, L501.3620, L501.4020 ####[facility] [address] [place], [address] CO2 [Moles/Vol] 25.0 mmol/L Normal 21.0-32.0 [facility] Comment on above: Order Comment: 'TROP ' Serial specimen #1, #2 or #3: 1 Performed By: #### L 500.2500, L100.0100, L501.3620, L501.4020 ####[facility] [address] [place], [address] Creatinine [Mass/Vol] 1.30 mg/dL High 0.55-1.02 [facility] Comment on above: Order Comment: 'TROP ' Serial specimen #1, #2 or #3: 1 Result Comment: The validity of the calculated GFR GFRAA in patients over70 years has not been determined. Clinical correlation isessential. Performed By: #### L 500.2500, L100.0100, L501.3620, L501.4020 ####[facility] [address] [place], [address] ECRCL 33.93 ml/min Normal [facility] Comment on above: Order Comment: 'TROP ' Serial specimen #1, #2 or #3: 1 Performed By: #### L 500.2500, L100.0100, L501.3620, L501.4020 ####[facility] [address] [place], [address] EST GFR - AA 51 mL/min Low >60 [facility] Comment on above: Order Comment: 'TROP ' Serial specimen #1, #2 or #3: 1 Result Comment: Afri can Mongolian GFR Calc Performed By: #### L 500.2500, L100.0100, L501.3620, L501.4020 ####[facility] [address] [place], [address] GAP 14 Normal 5-15 [facility] Comment on above: Order Comment: 'TROP ' Serial specimen #1, #2 or #3: 1 Performed By: #### L 500.2500, L100.0100, L501.3620, L501.4020 ####[facility] [address] [place], [address] GFR/1.73 sq M.predicted among non-blacks MDRD (S/P/Bld) [Vol rate/Area] 42 mL/min/{1.73_m2} Low >60 [facility] Comment on above: Order Comment: 'TROP ' Serial specimen #1, #2 or #3: 1 Result Comment: Non- GFR Calc Performed By: #### L 500.2500, L100.0100, L501.3620, L501.4020 ####[facility] [address] [place], [address] Glucose [Mass/Vol] 465 mg/dL Invalid Interpretation Code 74-106 [facility] Comment on above: Order Comment: 'TROP ' Serial specimen #1, #2 or #3: 1 Result Comment: Crit ical Result(s) Called at: 13:05:53 06/17/2024 by:Marilynn Marie. Results read back by same.Glucose result greater than or equal to 200 mg/dLsuggests DIABETES MELLITUS per A.D.A. criteria. Performed By: #### L 500.2500, L100.0100, L501.3620, L501.4020 ####[facility] [address] [place], [address] Potassium [Moles/Vol] 3.5 mmol/L Normal 3.5-5.1 [facility] Comment on above: Order Comment: 'TROP ' Serial specimen #1, #2 or #3: 1 Performed By: #### L 500.2500, L100.0100, L501.3620, L501.4020 ####[facility] [address] [place], [address] Sodium [Moles/Vol] 138 mmol/L Normal 136-145 [facility] Comment on above: Order Comment: 'TROP ' Serial specimen #1, #2 or #3: 1 Performed By: #### L 500.2500, L100.0100, L501.3620, L501.4020 ####[facility] [address] [place], [address] Urea nitrogen [Mass/Vol] 27 mg/dL High 7-18 [facility] Comment on above: Order Comment: 'TROP ' Serial specimen #1, #2 or #3: 1 Performed By: #### L 500.2500, L100.0100, L501.3620, L501.4020 ####[facility] [address] [place], [address] Bedside Glucoseon 06-17-2024 FINGERSTICK GLU 356 mg/dL High 74-106 [facility] Comment on above: Result Comment: ADAL GEMENT OF PATIENT CARE PER NURSING PROTOCOL Performed By: #### L 501.080 ####[facility] [address] [place], [address] FINGERSTICK GLU 335 mg/dL High 74-106 [facility] Comment on above: Result Comment: ADAL GEMENT OF PATIENT CARE PER NURSING PROTOCOL Performed By: #### L 501.080 ####[facility] [address] [place], [address] Brain/Head without Contrasto n 06-17-2024 Brain/Head without Contrast Normal [facility] CBC W/Diff, Automatedon 12-0 Absolute Lymph 0.63 X10 3/uL Low 0.83-4.51 [facility] Comment on above: Performed By: #### L 500.2500, L100.0100, L501.3620, L501.4020 ####[facility] [address] [place], [address] Absolute Neut 12.1 X10 3/uL High 2.0-7.7 [facility] Comment on above: Performed By: #### L 500.2500, L100.0100, L501.3620, L501.4020 ####[facility] [address] [place], [address] Basophils/100 WBC (Bld) 0.4 % Normal 0-1 [facility] Comment on above: Performed By: #### L 500.2500, L100.0100, L501.3620, L501.4020 ####[facility] [address] [place], [address] Eosinophils/100 WBC (Bld) 0.0 % Normal 0-5 [facility] Comment on above: Performed By: #### L 500.2500, L100.0100, L501.3620, L501.4020 ####[facility] [address] [place], [address] Erythrocyte distribution width (RBC) [Ratio] 16.7 % High 11.6-14.6 [facility] Comment on above: Performed By: #### L 500.2500, L100.0100, L501.3620, L501.4020 ####[facility] [address] [place], [address] Hematocrit (Bld) [Volume fraction] 48.2 % High 37-47 [facility] Comment on above: Performed By: #### L 500.2500, L100.0100, L501.3620, L501.4020 ####[facility] [address] [place], [address] Hemoglobin (Bld) [Mass/Vol] 15.0 g/dL Normal 12.0-15.0 [facility] Comment on above: Performed By: #### L 500.2500, L100.0100, L501.3620, L501.4020 ####[facility] [address] [place], [address] IG% 0.500 Normal 0.0-0.9 [facility] Comment on above: Result Comment: IG% - Immature Granulocytes (promyelocytes, myelocytes andmetamyelocytes) > 1% indicates that a LEFT SHIFT is Present. Performed By: #### L 500.2500, L100.0100, L501.3620, L501.4020 ####[facility] [id number] [place], [address] Lymphocytes/100 WBC (Bld) 4.7 % Low 19-41 [facility] Comment on above: Performed By: #### L 500.2500, L100.0100, L501.3620, L501.4020 ####[facility] [id number] [place], [address] MCH (RBC) [Entitic mass] 25.9 pg Low 27.0-32.0 [facility] Comment on above: Performed By: #### L 500.2500, L100.0100, L501.3620, L501.4020 ####[facility] [id number] [place], [address] MCHC (RBC) [Mass/Vol] 31.1 g/dL Low 32-36 [facility] Comment on above: Performed By: #### L 500.2500, L100.0100, L501.3620, L501.4020 ####[facility] [id number] [place], [address] MCV (RBC) [Entitic vol] 83.2 fL Normal 81-99 [facility] Comment on above: Performed By: #### L 500.2500, L100.0100, L501.3620, L501.4020 ####[facility] [id number] [place], [address] Monocytes/100 WBC (Bld) 3.8 % Normal 0-10 [facility] Comment on above: Performed By: #### L 500.2500, L100.0100, L501.3620, L501.4020 ####[facility] [id number] [place], [address] Neutrophils/100 WBC (Bld) 90.6 % High 47-70 [facility] Comment on above: Performed By: #### L 500.2500, L100.0100, L501.3620, L501.4020 ####[facility] [address] [place], [address] Nucleated RBC (Bld) [#/Vol] 0 10*3/uL Normal 0-5 [facility] Comment on above: Performed By: #### L 500.2500, L100.0100, L501.3620, L501.4020 ####[facility] [address] [place], [address] Platelet mean volume (Bld) [Entitic vol] 11.2 fL Normal 6.2-12.0 [facility] Comment on above: Performed By: #### L 500.2500, L100.0100, L501.3620, L501.4020 ####[facility] [address] [place], [address] Platelets (Bld) [#/Vol] 273 10*3/uL Normal 150-450 [facility] Comment on above: Performed By: #### L 500.2500, L100.0100, L501.3620, L501.4020 ####[facility] [address] [place], [address] RBC (Bld) [#/Vol] 5.79 10*6/uL High 4.2-5.4 [facility] Comment on above: Performed By: #### L 500.2500, L100.0100, L501.3620, L501.4020 ####[facility] [address] [place], [address] RDW SD 48.9 fl High 35.1-43.9 [facility] Comment on above: Performed By: #### L 500.2500, L100.0100, L501.3620, L501.4020 ####[facility] [address] [place], [address] WBC (Bld) [#/Vol] 13.4 10*3/uL High 4.4-11.0 [facility] Comment on above: Performed By: #### L 500.2500, L100.0100, L501.3620, L501.4020 ####[facility] [address] [place], [address] CPK Total, Creatine Kinaseon 06-17-2024 CPK TOTAL 526 U/L High 26-192 [facility] Comment on above: Order Comment: 'TROP ' Serial specimen #1, #2 or #3: 1 Performed By: #### L 500.2500, L100.0100, L501.3620, L501.4020 ####[facility] [address] [place], [address] Chest 1 View (Portable)on Chest 1 View (Portable) Normal [facility] Emergency Department Summary on 06-17-2024 Emergency Department Summary Normal [facility] Extremity Lower without Cont raon 06-17-2024 Extremity Lower without Contra Normal [facility] Free T3on 06-17-2024 Free T3 [Mass/Vol] 3.8 pg/mL Normal 2.18-3.98 [facility] Comment on above: Performed By: #### L 501.22215, L501.5200, L506.0400 ####[facility] [address] [place], [address] H AND P Exam - Hospitaliston 06-17-2024 H&P Exam - Hospitalist Normal [facility] HIP, UNI W/ Pelvis 2-3 Views on 06-17-2024 HIP, UNI W/ Pelvis 2-[address] [facility] L501.4020on 06-17-2024 TROPONIN-I HS 47 pg/mL Normal 3.0-54.0 [facility] Comment on above: Order Comment: 'TROP ' Serial specimen #1, #2 or #3: 1 Result Comment: Plea Note: New Test Units and Gender Specific Reference Ranges. For more information see Policy Stat Procedure Grand View High Sensitivity Troponin (TNIH) and attachments. Performed By: #### L 500.2500, L100.0100, L501.3620, L501.4020 ####[facility] [address] [place], [address] Liver Profileon 06-17-2024 Albumin [Mass/Vol] 4.6 g/dL Normal 3.2-5.0 [facility] Comment on above: Performed By: #### L 506.1000, L500.3400 ####[facility] [address] [place], [address] ALK P 97 U/L Normal 45-117 [facility] Comment on above: Performed By: #### L 506.1000, L500.3400 ####[facility] [address] [place], [address] ALT [Catalytic activity/Vol] 23 U/L Normal 13-56 [facility] Comment on above: Performed By: #### L 506.1000, L500.3400 ####[facility] [address] [place], [address] AST [Catalytic activity/Vol] 33 U/L Normal 15-37 [facility] Comment on above: Performed By: #### L 506.1000, L500.3400 ####[facility] [address] [place], [address] Bilirubin [Mass/Vol] 0.90 mg/dL Normal 0.20-1.[address] [facility] Comment on above: Result Comment: For patients on eltrombopag therapy, use of Dimension Grand View TBIL is not recommended. Performed By: #### L 506.1000, L500.3400 ####[facility] [address] [place], [address] Bilirubin.direct [Mass/Vol] 0.31 mg/dL High 0.00-0.30 [facility] Comment on above: Performed By: #### L 506.1000, L500.3400 ####[facility] [address] [place], [address] Globulin (S) [Mass/Vol] 4.4 g/dL High 2.2-4.2 [facility] Comment on above: Performed By: #### L 506.1000, L500.3400 ####[facility] [address] [place], [address] T PROT 9.0 g/dL High 6.4-8.2 [facility] Comment on above: Performed By: #### L 506.1000, L500.3400 ####[facility] [address] [place], [address] Magnesiumon 06-17-2024 Magnesium [Mass/Vol] 1.6 mg/dL Normal 1.6-2.[address] [facility] Comment on above: Performed By: #### L 501.78111, L501.5200, L506.0400 ####[facility] [address] [place], [address] PTHINon 06-17-2024 PTH 55.4 pg/mL Normal 18.4-80.1 [facility] Comment on above: Performed By: #### L 509.1000 ####[facility] [address] [place], [address] Spine Cervical without Contr ason 06-17-2024 Spine Cervical without Contras Normal [facility] T4 Free Directon 06-17-2024 T4 FREE DIRECT 1.50 ng/dL High 0.76-1.46 [facility] Comment on above: Performed By: #### L 501.04462, L501.5200, L506.0400 ####[facility] [address] [place], [address] CBC W Auto Differential pane l (Bld)on 06-03-2024 Basophils (Bld) [#/Vol] 0.05 10*3/uL Normal <0.11 [facility] Comment on above: Order Comment: Speci men Type: BLOOD SPECIMENOrdering Facility: [facility] Address: [address] [place] [address] Performed By: #### 1 4196-0, 25340-3 ####[facility] JONATHANDA[address] [id number] [place] [address] [place] Basophils/100 WBC (Bld) 0.8 % Normal [facility] Comment on above: Order Comment: Speci men Type: BLOOD SPECIMENOrdering Facility: [facility] Address: [address] [place] [address] Performed By: #### 1 4196-0, 76327-9 ####[facility] MIAMIBRITTANYNaz [id number] [place] [address] [place] Differential cell count method Nom (Bld) Auto Normal [facility] Comment on above: Order Comment: Speci men Type: BLOOD SPECIMENOrdering Facility: [facility] Address: [address] [place] [address] Performed By: #### 1 4196-0, 72105-7 ####[facility] MIAMIAR[facility]ELA [id number] [place] [address] [place] Eosinophils (Bld) [#/Vol] 0.30 10*3/uL Normal <0.46 [facility] Comment on above: Order Comment: Speci men Type: BLOOD SPECIMENOrdering Facility: [facility] Address: [address] [place] [address] Performed By: #### 1 4196-0, 30496-0 ####[facility] [id number] [place] [address] [place] Eosinophils/100 WBC (Bld) 5.0 % Normal [facility] Comment on above: Order Comment: Speci men Type: BLOOD SPECIMENOrdering Facility: [facility] Address: [address] [place] [address] Performed By: #### 1 4196-0, 30631-2 ####[facility] [id number] [place] [address] [place] Erythrocyte distribution width (RBC) [Ratio] 17.2 % High 11.5-15.0 [facility] Comment on above: Order Comment: Speci men Type: BLOOD SPECIMENOrdering Facility: [facility] Address: [address] [place] [address] Performed By: #### 1 4196-0, 39780-8 ####[facility] [id number] [place] [address] [place] Hematocrit (Bld) [Volume fraction] 38.4 % Normal 36.0-46.0 [facility] Comment on above: Order Comment: Speci men Type: BLOOD SPECIMENOrdering Facility: [facility] Address: [address] [place] [address] Performed By: #### 1 4196-0, 01412-6 ####[facility] HOSPITALLINaz [id number] [place] [address] [place] Hemoglobin (Bld) [Mass/Vol] 11.6 g/dL Normal 11.5-15.5 [facility] Comment on above: Order Comment: Speci men Type: BLOOD SPECIMENOrdering Facility: [facility] Address: [address] [place] [address] Performed By: #### 1 4196-0, 79743-4 ####[facility] [id number] [place] [address] [place] Immature granulocytes (Bld) [#/Vol] 10*3/uL Normal <0.10 [facility] Comment on above: Order Comment: Speci men Type: BLOOD SPECIMENOrdering Facility: [facility] Address: [address] [place] [address] Performed By: #### 1 4196-0, 20971-4 ####[facility] [id number] [place] [address] [place] Immature granulocytes/100 WBC (Bld) 0.2 % Normal [facility] Comment on above: Order Comment: Speci men Type: BLOOD SPECIMENOrdering Facility: [facility] Address: [address] [place] [address] Performed By: #### 1 4196-0, 12192-1 ####[facility] [id number] [place] [address] [place] Lymphocytes (Bld) [#/Vol] 1.39 10*3/uL Normal 1.00-4.00 [facility] Comment on above: Order Comment: Speci men Type: BLOOD SPECIMENOrdering Facility: [facility] Address: [address] [place] [address] Performed By: #### 1 4196-0, 98682-6 ####[facility] [id number] [place] [address] [place] Lymphocytes/100 WBC (Bld) 23.0 % Normal [facility] Comment on above: Order Comment: Speci men Type: BLOOD SPECIMENOrdering Facility: [facility] Address: [address] [place] [address] Performed By: #### 1 4196-0, 92465-6 ####[facility] [id number] [place] [address] [place] MCH (RBC) [Entitic mass] 25.5 pg Low 26.0-34.0 [facility] Comment on above: Order Comment: Speci men Type: BLOOD SPECIMENOrdering Facility: [facility] Address: [address] [place] [address] Performed By: #### 1 4196-0, 84639-2 ####[facility] [id number] [place] [address] [place] MCHC (RBC) [Mass/Vol] 30.2 g/dL Low 30.5-36.0 [facility] Comment on above: Order Comment: Speci men Type: BLOOD SPECIMENOrdering Facility: [facility] Address: [address] [place] [address] Performed By: #### 1 4196-0, 33325-1 ####[facility] [id number] [place] [address] [place] MCV (RBC) [Entitic vol] 84.4 fL Normal 80.0-100.0 [facility] Comment on above: Order Comment: Speci men Type: BLOOD SPECIMENOrdering Facility: [facility] Address: [address] [place] [address] Performed By: #### 1 4196-0, 46177-7 ####[facility] [id number] [place] [address] [place] Monocytes (Bld) [#/Vol] 0.56 10*3/uL Normal <0.87 [facility] Comment on above: Order Comment: Speci men Type: BLOOD SPECIMENOrdering Facility: [facility] Address: [address] [place] [address] Performed By: #### 1 4196-0, 82346-3 ####[facility] MIAMIMAYUR[facility] [id number] [place] [address] [place] Monocytes/100 WBC (Bld) 9.3 % Normal [facility] Comment on above: Order Comment: Speci men Type: BLOOD SPECIMENOrdering Facility: [facility] Address: [address] [place] [address] Performed By: #### 1 4196-0, 14974-0 ####[facility] MIAMINCL[facility] [id number] [place] [address] [place] Neutrophils (Bld) [#/Vol] 3.74 10*3/uL Normal 1.45-7.50 [facility] Comment on above: Order Comment: Speci men Type: BLOOD SPECIMENOrdering Facility: [facility] Address: [address] [place] [address] Performed By: #### 1 4196-0, 29959-3 ####[facility] [id number] [place] [address] [place] Neutrophils/100 WBC (Bld) 61.7 % Normal [facility] Comment on above: Order Comment: Speci men Type: BLOOD SPECIMENOrdering Facility: [facility] Address: [address] [place] [address] Performed By: #### 1 4196-0, 95497-5 ####[facility] [id number] [place] [address] [place] Nucleated RBC (Bld) [#/Vol] 10*3/uL Normal <0.01 [facility] Comment on above: Order Comment: Speci men Type: BLOOD SPECIMENOrdering Facility: [facility] Address: [address] [place] [address] Performed By: #### 1 4196-0, 25757-0 ####[facility] [id number] [place] [address] [place] Nucleated RBC/100 WBC (Bld) [Ratio] 0.0 /100 WBC Normal [facility] Comment on above: Order Comment: Speci men Type: BLOOD SPECIMENOrdering Facility: [facility] Address: [address] [place] [address] Performed By: #### 1 4196-0, 77410-4 ####[facility] [id number] [place] [address] [place] Platelet mean volume (Bld) [Entitic vol] 10.0 fL Normal 9.0-12.7 [facility] Comment on above: Order Comment: Speci men Type: BLOOD SPECIMENOrdering Facility: [facility] Address: [address] [place] [address] Performed By: #### 1 4196-0, 44493-5 ####[facility] ARJUN SALDIVARNCDEXTERA [id number] [place] [address] [place] Platelets (Bld) [#/Vol] 280 10*3/uL Normal 150-400 [facility] Comment on above: Order Comment: Speci men Type: BLOOD SPECIMENOrdering Facility: [facility] Address: [address] [place] [address] Performed By: #### 1 4196-0, 50131-7 ####[facility] MIAMINCDEXTER[facility] [id number] [place] [address] [place] RBC (Bld) [#/Vol] 4.55 10*6/uL Normal 3.90-5.20 [facility] Comment on above: Order Comment: Speci men Type: BLOOD SPECIMENOrdering Facility: [facility] Address: [address] [place] [address] Performed By: #### 1 4196-0, 46476-4 ####[facility] MIAMINCL[facility] [id number] [place] [address] [place] WBC (Bld) [#/Vol] 6.05 10*3/uL Normal 3.70-11.00 [facility] Comment on above: Order Comment: Speci men Type: BLOOD SPECIMENOrdering Facility: [facility] Address: [address] [place] [address] Performed By: #### 1 4196-0, 67863-3 ####[facility] MIAMINCL[facility] [id number] [place] [address] [place] CNOVSPon 06-03-2024 CNOVSP Visit (SP) Office ([facility]) -- KERRIE KEARNEY ([id number]) 1945 F Date Time Provider Department 06/03/24 1:30 PM TERESSA BRENNAN SLIM During your visit today, we recorded the following information about you: Temperature Pulse Blood pressure Weight 97.1 degrees 78/minute 155/77 68 kg Teressa Brennan 06/03/2024 3:32 PM Signed Kerrie Kearney 1945 06/03/2024 Kerrie Kearney is a 78 year old female referred by Dr. Orlando for monoclonal gammopathy. HPI: The patient is a 78-year-old female with a past medical history significant for meningitis, elevated LFTs, cognitive impairment, imbalance, dysphagia, psoriasis, IBS, GERD, ectatic thoracic aorta, hypertension, hyperlipidemia, type 2 diabetes, thyrotoxicosis, hypothyroidism, anemia and monoclonal gammopathy. Lab work showed elevated serum kappa and lambda light chain with normal ratio. Immunofixation serum detected no monoclonal protein. Total IgM was mildly elevated at 233 mg/dL. The serum IgG and IgA levels were normal. Immunofixation spot urine was negative. CBC showed a white count of 8000. Hemoglobin 10.2 g/dL with an MCH low at 26.4 pg. MCHC was low at 31.1 g/dL. Serum creatinine 1.19 mg/dL with calcium normal at 10.2 mg/dL. Serum ferritin is 15 ng/mL. Iron saturation 9%. TIBC 371. LDH 176. Vitamin B12 was 447 pg/mL. Serum folic acid 6.6 ng/mL. Hemoglobin A1c 9.5%. Started on liquid iron supplement about a month ago. recalls getting it at [facility]. Was living in [place]. Moved back to [place] early summer. Was admitted to [facility] for meningitis 12/2023. Transferred to [facility]. Course complicated by SBO. Had surgery for that 01/22/2024. Interval Hx: I feel good. No complaints Pt presents today with her spouse. Denies new issues. No recent illness, fevers, chills or NS. Denies bleeding or bruising. No changes in bowel or bladder habits. No dark or tarry stools. Appetite is good. Energy level is stable. No N/V. PAST SURGICAL HISTORY Procedure Laterality Date APPENDECTOMY BOWEL RESECTION HX DELIVERY ONLY REMOVAL GALLBLADDER ALLERGIES Allergen Reactions Sulfa (Sulfonamide * Itching Social History Tobacco Use Smoking status: Never Smokeless tobacco: Never Vaping Use Vaping status: Never Used Substance Use Topics Alcohol use: Never Drug use: Never REVIEW OF SYSTEMS: Constitutional: No episodes of fever and night sweats. Neuro: Uses walker. All systems reviewed on 06/03/2024 with pertinent positives and negatives as outlined in the interval history. PHYSICAL EXAM: Vitals: Blood pressure 155/77, pulse 78, temperature 36.2 ?C (97.1 ?F), temperature source Temporal, weight 68 kg (150 lb), SpO2 98%. Well-appearing and in no acute distress. EYES: Sclerae are anicteric bilaterally. LYMPHATIC: There is no palpable adenopathy. RESPIRATORY: Normal passive respiration. CARDIOVASCULAR: Rhythm is regular. No murmur. ABDOMEN: The abdomen is nondistended.. Extremities: No swelling or edema. SKIN: No jaundice. I have performed the physical exam today (06/03/2024) and have edited the note to correlate with current findings. LABS: Latest Reference Range AND Units 04/08/24 14:57 06/03/24 13:24 WBC 3.70 - 11.00 k/uL 8.31 6.05 RBC 3.90 - 5.20 m/uL 3.85 (L) 4.55 Hemoglobin 11.5 - 15.5 g/dL 9.6 (L) 11.6 Hematocrit 36.0 - 46.0 % 32.1 (L) 38.4 Platelet Count 150 - 400 k/uL 317 280 MCV 80.0 - 100.0 fL 83.4 84.4 MCH 26.0 - 34.0 pg 24.9 (L) 25.5 (L) MCHC 30.5 - 36.0 g/dL 29.9 (L) 30.2 (L) MPV 9.0 - 12.7 fL 10.2 10.0 RDW-CV 11.5 - 15.0 % 13.0 17.2 (H) Retic % 0.4 - 2.0 % 0.6 Abs Retic 0.018 - 0.100 M/uL 0.029 (L): Data is abnormally low (H): Data is abnormally high Latest Reference Range AND Units 04/08/24 14:57 Ferritin 14.7 - 205.1 ng/mL 9.4 (L) Iron 41 - 186 ug/dL 20 (L) TIBC 232 - 386 ug/dL 444 (H) Transferrin Saturation 15.0 - 57.0 % 4.5 (L) (L): Data is abnormally low (H): Data is abnormally high ASSESSMENT/PLAN: (D50.9) Iron deficiency anemia, unspecified iron deficiency anemia type (primary encounter diagnosis) Assessment: -78 yo female with PMH as outlined above. -Admitted for meningitis complicated by SBO. -Mild increase in serum IgM with no MP by SPEP or AYLEEN. -Serum light chains increased but ratio normal. - reviewed with pt and spouse today, no concerns. -Iron deficient. Started oral iron supplement. -May not be absorbing well due to PPI. - received IV iron sucrose 200mg x5 - anemia improved Plan: Repeat CBC, iron studies in 3 months RTC in 6 months with labs Teressa Brennan APRN.PUBLIC HEALTH PROFESSOR I spent a total of 30 minutes on the date of the service which included preparing to see the patient, glhs-cy-uhll patient care, completing clinical documentation, and counseling and educating the patient/family/caregiver. Portions of this note including HPI, ROS, impression/plan may have b (more content not included)... Normal [facility] Ferritin SerPl-mCncon 2023 Ferritin [Mass/Vol] 183.0 ng/mL Normal 14.7-205.1 [facility] Comment on above: Order Comment: Speci men Type: BLOOD SPECIMENOrdering Facility: [facility] Address: [address] [place] [address] Performed By: #### 5 0190-8, 2276-4 ####[facility] LABCLIA [id number] [place] [address] [place] Iron and Iron binding capaci ty panelon 06-03-2024 Iron [Mass/Vol] 55 ug/dL Normal 41-186 [facility] Comment on above: Order Comment: Speci men Type: BLOOD SPECIMENOrdering Facility: [facility] Address: [address] [place] [address] Performed By: #### 5 0190-8, 2276-4 ####[facility] LABCLIA [id number] [place] [address] [place] Iron binding capacity [Mass/Vol] 303 ug/dL Normal 232-386 [facility] Comment on above: Order Comment: Speci men Type: BLOOD SPECIMENOrdering Facility: [facility] Address: [address] [place] [address] Performed By: #### 5 0190-8, 2275-4 ####[facility] LABIA [id number] [place] [address] [place] Iron/TIBC [Molar ratio] 18.2 % Normal 15.0-57.0 [facility] Comment on above: Order Comment: Speci men Type: BLOOD SPECIMENOrdering Facility: [facility] Address: [address] [place] [address] Performed By: #### 5 0190-8, 2275-4 ####[facility] LABIA [id number] [place] [address] [place] Retics #on 06-03-2024 Reticulocytes (Bld) [#/Vol] 0.93854 10*3/uL Normal 0.018-0.100 [facility] Comment on above: Order Comment: Speci men Type: BLOOD SPECIMENOrdering Facility: [facility] Address: [address] [place] [address] Performed By: #### 1 4196-0, 59963-5 ####[facility] ARJUN CASTILLOOKLAHOMA CITYARIELA [id number] [place] [address] [place] Reticulocytes (Bld) [#/Vol]o n 06-03-2024 Reticulocytes/100 RBC (Bld) 0.6 % Normal 0.4-2.0 [facility] Comment on above: Order Comment: Aime grace Type: BLOOD SPECIMENOrdering Facility: [facility] Address: [place] [address] Performed By: #### 1 4196-0, 16558-6 ####[facility] ARJUN CASTILLOOKLAHOMA CITYARIELA [id number] [address] OF [facility] CNOVSPon 04-29-2024 CNOVSP Visit (SP) Office ([facility]) -- KERRIE KEARNEY ([id number]) 1945 F Date Time Provider Department 04/29/24 10:30 AM TREATMENT RM 15 [facility] WSTRHEMAWS During your visit today, we recorded the following information about you: Temperature Pulse Respiration Blood pressure 98.2 degrees 78/minute 16/minute 144/75 Referring Provider: ADAN SCOTT [[id number]] Allergies As of Date: 04/29/2024 Noted Allergy Reaction SULFA (SULFONAMIDE ANTIBIOTICS) 04/08/2024 9 - Itching Date Reviewed: 04/29/2024 Reviewed by: Madai Hunter RN - Fully Assessed Reason for Visit: Non-Chemotherapy Treatment [795] 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] Other Visit Diagnosis:Iron deficiency anemia secondary to inadequate dietary iron intake [D50.8] Order(s):TREATMENT PARAMETER-NOT NEEDED [9990723] Order #: [id number]: 1 BCN NURSING COMMUNICATION [9990720] Order #: [id number]: 1 STANDING BCN NURSING COMMUNICATION [9990720] Order #: [id number]: 1 STANDING [] iron sucrose 200 mg injection (VENOFER)Disp: Rfl: NaCl 0.9% iv infusionDisp: Rfl: diphenhydrAMINE 50 mg injection (BENADRYL)Disp: Rfl: hydrocortisone sodium succinate (PF) 100 mg injection (Solu-CORTEF)Disp: Rfl: EPINEPHrine HCl (PF) 1 mg/mL (1 mL) 0.3 mg injectionDisp: Rfl: N NURSING COMMUNICATION [[id number]] Order #: [id number]: 1 STANDING Prescriptions as of 04/29/2024 - atorvastatin (LIPITOR) 10 mg tablet Take 1 tablet by mouth once daily. - carvedilol (COREG) 25 mg tablet Take 1 tablet by mouth two times a day. - dilTIAZem (CARDIZEM) 120 mg tablet Take 120 mg by mouth once daily. - DULoxetine (CYMBALTA) 30 mg capsule Take 1 capsule by mouth once daily. - glipiZIDE (GLUCOTROL XL) 2.5 mg 24 hr tablet Take 1 tablet by mouth once daily. - lisinopril (ZESTRIL) 20 mg tablet Take 1 tablet by mouth once daily. - methIMAzole (TAPAZOLE) 5 mg tablet Take 1 tablet by mouth three times a day. - omeprazole (PRILOSEC) 20 mg capsule Take 1 capsule by mouth once daily. - metFORMIN (GLUCOPHAGE) 1,000 mg tablet Take 1,000 mg by mouth two times a day with meals. - bisacodyl (DULCOLAX) 10 mg supp 10 mg by RECTAL route at bedtime as needed. Facility-Administered Medications as of 04/29/2024 - NaCl 0.9% iv infusion - diphenhydrAMINE 50 mg injection (BENADRYL) - hydrocortisone sodium succinate (PF) 100 mg injection (Solu-CORTEF) - EPINEPHrine HCl (PF) 1 mg/mL (1 mL) 0.3 mg injection Problem List As Of Date 04/29/2024 Noted Resolved Iron deficiency anemia secondary to inadequate *04/09/2024 Iron malabsorption [K90.9] 04/09/2024 Encounter Status:Closed by MADAI HUNTER on 04/29/24 [facility] [place] 04-28-2024 KESHIA Telephone (HEMAWS) -- KERRIE KEARNEY ([id number]) 1945 F Date Time Provider Department 04/28/24 SAMANTHA MCDONALD During your visit today, we recorded the following information about you: Samantha Mcdonald LISW 04/28/2024 11:21 AM Signed SOCIAL WORK FOLLOW UP NOTE: [facility] Pt noted on [facility] 1st time treatment report. Pt has a non-oncology regimen. No social work follow up indicated. SHAYNA Carrillo-S Allergies As of Date: 04/28/2024 Noted Allergy Reaction SULFA (SULFONAMIDE ANTIBIOTICS) 04/08/2024 9 - Itching Date Reviewed: 04/25/2024 Reviewed by: Veronique Barbour RN - Fully Assessed Reason for Visit: SOCIAL WORK SERVICES (1ST TIME TREATMENT) [Other] Prescriptions as of 04/28/2024 - atorvastatin (LIPITOR) 10 mg tablet Take 1 tablet by mouth once daily. - carvedilol (COREG) 25 mg tablet Take 1 tablet by mouth two times a day. - dilTIAZem (CARDIZEM) 120 mg tablet Take 120 mg by mouth once daily. - DULoxetine (CYMBALTA) 30 mg capsule Take 1 capsule by mouth once daily. - glipiZIDE (GLUCOTROL XL) 2.5 mg 24 hr tablet Take 1 tablet by mouth once daily. - lisinopril (ZESTRIL) 20 mg tablet Take 1 tablet by mouth once daily. - methIMAzole (TAPAZOLE) 5 mg tablet Take 1 tablet by mouth three times a day. - omeprazole (PRILOSEC) 20 mg capsule Take 1 capsule by mouth once daily. - metFORMIN (GLUCOPHAGE) 1,000 mg tablet Take 1,000 mg by mouth two times a day with meals. - bisacodyl (DULCOLAX) 10 mg supp 10 mg by RECTAL route at bedtime as needed. Problem List As Of Date 04/28/2024 Noted Resolved Iron deficiency anemia secondary to inadequate *04/09/2024 Iron malabsorption [K90.9] 04/09/2024 Encounter Status:Closed by SAMANTHA MCDONALD on 04/28/24 Normal [facility] CNOVSPon 10-11-2024 CNOVSP Visit (SP) Office (H EMAWS) -- KERRIE KEARNEY ([id number]) 1945 F Date Time Provider Department 04/25/24 3:30 PM TREATMENT RM 14 [facility] During your visit today, we recorded the following information about you: Referring Provider: ADAN SCOTT [[id number]] Allergies As of Date: 04/25/2024 Noted Allergy Reaction SULFA (SULFONAMIDE ANTIBIOTICS) 04/08/2024 9 - Itching Date Reviewed: 04/25/2024 Reviewed by: Veronique Barbour, RN - Fully Assessed Reason for Visit: Non-Chemotherapy Treatment [795] Primary Visit Diagnosis:Iron deficiency anemia secondary to inadequate dietary iron intake [D50.8] 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] Order(s):[] iron sucrose 200 mg injection (VENOFER)Disp: Rfl: TREATMENT PARAMETER-NOT NEEDED [9990723] Order #: [id number]: 1 BCN NURSING COMMUNICATION [9990720] Order #: [id number]: 1 STANDING BCN NURSING COMMUNICATION [[id number]] Order #: [id number]: 1 STANDING NaCl 0.9% iv infusionDisp: Rfl: diphenhydrAMINE 50 mg injection (BENADRYL)Disp: Rfl: hydrocortisone sodium succinate (PF) 100 mg injection (Solu-CORTEF)Disp: Rfl: EPINEPHrine HCl (PF) 1 mg/mL (1 mL) 0.3 mg injectionDisp: Rfl: BCN NURSING COMMUNICATION [9990720] Order #: [id number]: 1 STANDING BCN NURSING COMMUNICATION [9990720] Order #: [id number]: 1 STANDING sodium chloride 0.9 % (flush) 10-20 mL (BD POSIFLUSH)Disp: Rfl: sodium chloride 0.9 % (flush) 10-20 mL (BD POSIFLUSH)Disp: Rfl: [facility] NURSING COMMUNICATION [[id number]] Order #: [id number]: 1 STANDING [facility] NURSING COMMUNICATION [[id number]] Order #: [id number]: 1 STANDING Prescriptions as of 04/25/2024 - atorvastatin (LIPITOR) 10 mg tablet Take 1 tablet by mouth once daily. - carvedilol (COREG) 25 mg tablet Take 1 tablet by mouth two times a day. - dilTIAZem (CARDIZEM) 120 mg tablet Take 120 mg by mouth once daily. - DULoxetine (CYMBALTA) 30 mg capsule Take 1 capsule by mouth once daily. - glipiZIDE (GLUCOTROL XL) 2.5 mg 24 hr tablet Take 1 tablet by mouth once daily. - lisinopril (ZESTRIL) 20 mg tablet Take 1 tablet by mouth once daily. - methIMAzole (TAPAZOLE) 5 mg tablet Take 1 tablet by mouth three times a day. - omeprazole (PRILOSEC) 20 mg capsule Take 1 capsule by mouth once daily. - metFORMIN (GLUCOPHAGE) 1,000 mg tablet Take 1,000 mg by mouth two times a day with meals. - bisacodyl (DULCOLAX) 10 mg supp 10 mg by RECTAL route at bedtime as needed. Facility-Administered Medications as of 04/25/2024 - NaCl 0.9% iv infusion - diphenhydrAMINE 50 mg injection (BENADRYL) - hydrocortisone sodium succinate (PF) 100 mg injection (Solu-CORTEF) - EPINEPHrine HCl (PF) 1 mg/mL (1 mL) 0.3 mg injection - sodium chloride 0.9 % (flush) 10-20 mL (BD POSIFLUSH) - sodium chloride 0.9 % (flush) 10-20 mL (BD POSIFLUSH) Problem List As Of Date 04/25/2024 Noted Resolved Iron deficiency anemia secondary to inadequate *04/09/2024 Iron malabsorption [K90.9] 04/09/2024 Encounter Status:Closed by VERONIQUE BARBOUR on 04/25/24 [facility] CNOVSPon 04-23-2024 CNOVSP Visit (SP) Office (H EMAWS) -- KERRIE KERANEY ([id number]) 1945 F Date Time Provider Department 04/23/24 1:00 PM TREATMENT RM 15 [facility] During your visit today, we recorded the following information about you: Temperature Pulse Blood pressure 98.2 degrees 85/minute 126/64 Referring Provider: ADAN SCOTT [[id number]] Allergies As of Date: 04/23/2024 Noted Allergy Reaction SULFA (SULFONAMIDE ANTIBIOTICS) 04/08/2024 9 - Itching Date Reviewed: 04/21/2024 Reviewed by: Oksana Masters RN - Fully Assessed Reason for Visit: Non-Chemotherapy Treatment [795] 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] Other Visit Diagnosis:Iron deficiency anemia secondary to inadequate dietary iron intake [D50.8] Order(s):TREATMENT PARAMETER-NOT NEEDED [[id number]] Order #: [id number]: 1 BCN NURSING COMMUNICATION [[id number]] Order #: [id number]: 1 STANDING BCN NURSING COMMUNICATION [[id number]] Order #: [id number]: 1 STANDING [] iron sucrose iv piggyback 200 mg in NaCl 0.9% 100 mL (VENOFER)Disp: Rfl: NaCl 0.9% iv infusionDisp: Rfl: diphenhydrAMINE 50 mg injection (BENADRYL)Disp: Rfl: hydrocortisone sodium succinate (PF) 100 mg injection (Solu-CORTEF)Disp: Rfl: EPINEPHrine HCl (PF) 1 mg/mL (1 mL) 0.3 mg injectionDisp: Rfl: BCN NURSING COMMUNICATION [[id number]] Order #: [id number]: 1 STANDING Prescriptions as of 04/23/2024 - atorvastatin (LIPITOR) 10 mg tablet Take 1 tablet by mouth once daily. - carvedilol (COREG) 25 mg tablet Take 1 tablet by mouth two times a day. - dilTIAZem (CARDIZEM) 120 mg tablet Take 120 mg by mouth once daily. - DULoxetine (CYMBALTA) 30 mg capsule Take 1 capsule by mouth once daily. - glipiZIDE (GLUCOTROL XL) 2.5 mg 24 hr tablet Take 1 tablet by mouth once daily. - lisinopril (ZESTRIL) 20 mg tablet Take 1 tablet by mouth once daily. - methIMAzole (TAPAZOLE) 5 mg tablet Take 1 tablet by mouth three times a day. - omeprazole (PRILOSEC) 20 mg capsule Take 1 capsule by mouth once daily. - metFORMIN (GLUCOPHAGE) 1,000 mg tablet Take 1,000 mg by mouth two times a day with meals. - bisacodyl (DULCOLAX) 10 mg supp 10 mg by RECTAL route at bedtime as needed. Facility-Administered Medications as of 04/23/2024 - NaCl 0.9% iv infusion - diphenhydrAMINE 50 mg injection (BENADRYL) - hydrocortisone sodium succinate (PF) 100 mg injection (Solu-CORTEF) - EPINEPHrine HCl (PF) 1 mg/mL (1 mL) 0.3 mg injection Problem List As Of Date 04/23/2024 Noted Resolved Iron deficiency anemia secondary to inadequate *04/09/2024 Iron malabsorption [K90.9] 04/09/2024 Encounter Status:Closed by RADHA GRESHAM on 04/23/24 [facility] CNOVSPon 04-21-2024 CNOVSP Visit (SP) Office (H EMAWS) -- KERRIE KEARNEY ([id number]) 1945 F Date Time Provider Department 04/21/24 10:00 AM TREATMENT RM 14 [facility] During your visit today, we recorded the following information about you: Temperature Pulse Respiration Blood pressure 98.1 degrees 70/minute 14/minute 127/63 Referring Provider: ADAN SCOTT [[id number]] Allergies As of Date: 04/21/2024 Noted Allergy Reaction SULFA (SULFONAMIDE ANTIBIOTICS) 04/08/2024 9 - Itching Date Reviewed: 04/21/2024 Reviewed by: Oksana Masters RN - Fully Assessed Reason for Visit: Non-Chemotherapy Treatment [795] 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] Other Visit Diagnosis:Iron deficiency anemia secondary to inadequate dietary iron intake [D50.8] Order(s):TREATMENT PARAMETER-NOT NEEDED [[id number]] Order #: [id number]: 1 N NURSING COMMUNICATION [3270628] Order #: [id number]: 1 STANDING N NURSING COMMUNICATION [3019332] Order #: [id number]: 1 STANDING [] iron sucrose iv piggyback 200 mg in NaCl 0.9% 100 mL (VENOFER)Disp: Rfl: NaCl 0.9% iv infusionDisp: Rfl: diphenhydrAMINE 50 mg injection (BENADRYL)Disp: Rfl: hydrocortisone sodium succinate (PF) 100 mg injection (Solu-CORTEF)Disp: Rfl: EPINEPHrine HCl (PF) 1 mg/mL (1 mL) 0.3 mg injectionDisp: Rfl: N NURSING COMMUNICATION [[id number]] Order #: [id number]: 1 STANDING Prescriptions as of 04/21/2024 - atorvastatin (LIPITOR) 10 mg tablet Take 1 tablet by mouth once daily. - carvedilol (COREG) 25 mg tablet Take 1 tablet by mouth two times a day. - dilTIAZem (CARDIZEM) 120 mg tablet Take 120 mg by mouth once daily. - DULoxetine (CYMBALTA) 30 mg capsule Take 1 capsule by mouth once daily. - glipiZIDE (GLUCOTROL XL) 2.5 mg 24 hr tablet Take 1 tablet by mouth once daily. - lisinopril (ZESTRIL) 20 mg tablet Take 1 tablet by mouth once daily. - methIMAzole (TAPAZOLE) 5 mg tablet Take 1 tablet by mouth three times a day. - omeprazole (PRILOSEC) 20 mg capsule Take 1 capsule by mouth once daily. - metFORMIN (GLUCOPHAGE) 1,000 mg tablet Take 1,000 mg by mouth two times a day with meals. - bisacodyl (DULCOLAX) 10 mg supp 10 mg by RECTAL route at bedtime as needed. Facility-Administered Medications as of 04/21/2024 - NaCl 0.9% iv infusion - diphenhydrAMINE 50 mg injection (BENADRYL) - hydrocortisone sodium succinate (PF) 100 mg injection (Solu-CORTEF) - EPINEPHrine HCl (PF) 1 mg/mL (1 mL) 0.3 mg injection Problem List As Of Date 04/21/2024 Noted Resolved Iron deficiency anemia secondary to inadequate *04/09/2024 Iron malabsorption [K90.9] 04/09/2024 Encounter Status:Closed by OKSANA MASTERS on 04/21/24 Normal [facility] CNOVSPon 04-17-2024 CNOVSP Visit (SP) Office (H EMAWS) -- KERRIE KEARNEY ([id number]) 1945 F Date Time Provider Department 04/17/24 11:00 AM TREATMENT RM 16 [facility] During your visit today, we recorded the following information about you: Temperature Pulse Blood pressure 97.4 degrees 90/minute 147/72 Referring Provider: ADAN SCOTT [[id number]] Allergies As of Date: 04/17/2024 Noted Allergy Reaction SULFA (SULFONAMIDE ANTIBIOTICS) 04/08/2024 9 - Itching Date Reviewed: 04/17/2024 Reviewed by: Veronique Barbour, RN - Fully Assessed Reason for Visit: Non-Chemotherapy Treatment [795] Primary Visit Diagnosis:Iron deficiency anemia secondary to inadequate dietary iron intake [D50.8] 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] Order(s):[] iron sucrose iv piggyback 200 mg in NaCl 0.9% 100 mL (VENOFER)Disp: Rfl: NaCl 0.9% iv infusionDisp: Rfl: diphenhydrAMINE 50 mg injection (BENADRYL)Disp: Rfl: hydrocortisone sodium succinate (PF) 100 mg injection (Solu-CORTEF)Disp: Rfl: EPINEPHrine HCl (PF) 1 mg/mL (1 mL) 0.3 mg injectionDisp: Rfl: sodium chloride 0.9 % (flush) 10-20 mL (BD POSIFLUSH)Disp: Rfl: sodium chloride 0.9 % (flush) 10-20 mL (BD POSIFLUSH)Disp: Rfl: TREATMENT PARAMETER-NOT NEEDED [9990723] Order #: [id number]: 1 BCN NURSING COMMUNICATION [9990720] Order #: [id number]: 1 STANDING N NURSING COMMUNICATION [9990720] Order #: [id number]: 1 STANDING BCN NURSING COMMUNICATION [9990720] Order #: [id number]: 1 STANDING BCN NURSING COMMUNICATION [9990720] Order #: [id number]: 1 STANDING BCN NURSING COMMUNICATION [9990720] Order #: [id number]: 1 STANDING N NURSING COMMUNICATION [9990720] Order #: [id number]: 1 STANDING Prescriptions as of 04/17/2024 - atorvastatin (LIPITOR) 10 mg tablet Take 1 tablet by mouth once daily. - carvedilol (COREG) 25 mg tablet Take 1 tablet by mouth two times a day. - dilTIAZem (CARDIZEM) 120 mg tablet Take 120 mg by mouth once daily. - DULoxetine (CYMBALTA) 30 mg capsule Take 1 capsule by mouth once daily. - glipiZIDE (GLUCOTROL XL) 2.5 mg 24 hr tablet Take 1 tablet by mouth once daily. - lisinopril (ZESTRIL) 20 mg tablet Take 1 tablet by mouth once daily. - methIMAzole (TAPAZOLE) 5 mg tablet Take 1 tablet by mouth three times a day. - omeprazole (PRILOSEC) 20 mg capsule Take 1 capsule by mouth once daily. - metFORMIN (GLUCOPHAGE) 1,000 mg tablet Take 1,000 mg by mouth two times a day with meals. - bisacodyl (DULCOLAX) 10 mg supp 10 mg by RECTAL route at bedtime as needed. Facility-Administered Medications as of 04/17/2024 - NaCl 0.9% iv infusion - diphenhydrAMINE 50 mg injection (BENADRYL) - hydrocortisone sodium succinate (PF) 100 mg injection (Solu-CORTEF) - EPINEPHrine HCl (PF) 1 mg/mL (1 mL) 0.3 mg injection - sodium chloride 0.9 % (flush) 10-20 mL (BD POSIFLUSH) - sodium chloride 0.9 % (flush) 10-20 mL (BD POSIFLUSH) Problem List As Of Date 04/17/2024 Noted Resolved Iron deficiency anemia secondary to inadequate *04/09/2024 Iron malabsorption [K90.9] 04/09/2024 Encounter Status:Closed by VERONIQUE BARBOUR on 04/17/24 [facility] [place] 04-15-2024 CNPN Telephone (PFS) -- KERRIE KEARNEY ([id number]) 1945 F Date Time Provider Department 04/15/24 FINANCIAL NAVIGATOR SEKOU GARCIA During your visit today, we recorded the following information about you: Joce Bustamante 04/15/2024 10:21 AM Signed I reviewed the patient on the 1st-time treatment report. The patient does not have a cancer diagnosis or a chemo/radiation regimen. No further Financial Navigator intervention is needed at this time. Allergies As of Date: 04/15/2024 Noted Allergy Reaction SULFA (SULFONAMIDE ANTIBIOTICS) 04/08/2024 9 - Itching Date Reviewed: 04/08/2024 Reviewed by: Adan Scott DO - Fully Assessed Reason for Visit: Benefits Investigation [6778] Prescriptions as of 04/15/2024 - atorvastatin (LIPITOR) 10 mg tablet Take 1 tablet by mouth once daily. - carvedilol (COREG) 25 mg tablet Take 1 tablet by mouth two times a day. - dilTIAZem (CARDIZEM) 120 mg tablet Take 120 mg by mouth once daily. - DULoxetine (CYMBALTA) 30 mg capsule Take 1 capsule by mouth once daily. - glipiZIDE (GLUCOTROL XL) 2.5 mg 24 hr tablet Take 1 tablet by mouth once daily. - lisinopril (ZESTRIL) 20 mg tablet Take 1 tablet by mouth once daily. - methIMAzole (TAPAZOLE) 5 mg tablet Take 1 tablet by mouth three times a day. - omeprazole (PRILOSEC) 20 mg capsule Take 1 capsule by mouth once daily. - metFORMIN (GLUCOPHAGE) 1,000 mg tablet Take 1,000 mg by mouth two times a day with meals. - bisacodyl (DULCOLAX) 10 mg supp 10 mg by RECTAL route at bedtime as needed. Problem List As Of Date 04/15/2024 Noted Resolved Iron deficiency anemia secondary to inadequate *04/09/2024 Iron malabsorption [K90.9] 04/09/2024 Encounter Status:Closed by JOCE BUSTAMANTE on 04/15/24 Normal [facility] CNPWanda 04-09-2024 CNPN Telephone (HEMDANICA) -- KERRIE KEARNEY ([id number]) 1945 F Date Time Provider Department 04/09/24 ADAN SCOTT During your visit today, we recorded the following information about you: Adan Scott DO 04/09/2024 8:24 AM Signed Can let her or her know that her iron levels remain very low despite taking iron supplement. Please schedule for 5 doses of iron sucrose. Recheck CBC/iron studies and reticulocyte count about 4 to 6 weeks after completing iron then office visit with Teressa. Please fax a copy of this note as well as today's lab work to Dr. Orlando's office. DO Herb Recio Melanie, LPN 04/09/2024 8:32 AM Signed Patient's aware of all information. This note and lab results faxed to Dr. Orlando. PSS- please contact patient/ to schedule as directed below. RAJENDRA Purvis Angela 04/09/2024 11:08 AM Signed 1st attempt lvm for patient to return the call. Maria Eugenia Israel 04/09/2024 3:24 PM Signed Spouse returned call. Scheduled first 2 infusions. Spouse states will have to schedule more appointments as they go. Notes added to appointment notes for future appts. 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 - carvedilol (COREG) 25 mg tablet Take 1 tablet by mouth two times a day. - dilTIAZem (CARDIZEM) 120 mg tablet Take 120 mg by mouth once daily. - DULoxetine (CYMBALTA) 30 mg capsule Take 1 capsule by mouth once daily. - glipiZIDE (GLUCOTROL XL) 2.5 mg 24 hr tablet Take 1 tablet by mouth once daily. - lisinopril (ZESTRIL) 20 mg tablet Take 1 tablet by mouth once daily. - methIMAzole (TAPAZOLE) 5 mg tablet Take 1 tablet by mouth three times a day. - omeprazole (PRILOSEC) 20 mg capsule Take 1 capsule by mouth once daily. - metFORMIN (GLUCOPHAGE) 1,000 mg tablet Take 1,000 mg by mouth two times a day with meals. - bisacodyl (DULCOLAX) 10 mg supp 10 mg by RECTAL route at bedtime as needed. Problem List As Of Date 04/09/2024 Noted Resolved Iron deficiency anemia secondary to inadequate *04/09/2024 Iron malabsorption [K90.9] 04/09/2024 Encounter Status:Closed by CARLEEN BALES on 04/09/24 [facility] Auto Differential pane l (Bld)on 04-08-2024 Basophils (Bld) [#/Vol] 0.06 10*3/uL NINF [facility] Basophils/100 WBC (Bld) 0.7 % [facility] Differential cell count method Nom (Bld) Auto [facility] Eosinophils (Bld) [#/Vol] 0.16 10*3/uL [facility] Eosinophils/100 WBC (Bld) 1.9 % [facility] Erythrocyte distribution width (RBC) [Ratio] 13.0 % 11.5 - 15.0 % [facility] Hematocrit (Bld) [Volume fraction] 32.1 % Low 36.0 - 46.0 % [facility] Hemoglobin (Bld) [Mass/Vol] 9.6 g/dL Low 11.5 - 15.5 g/dL [facility] Immature granulocytes (Bld) [#/Vol] [facility] Immature granulocytes/100 WBC (Bld) 0.1 % [facility] Interpretation and review of laboratory results Abnormal [facility] Lymphocytes (Bld) [#/Vol] 1.47 10*3/uL [facility] Lymphocytes/100 WBC (Bld) 17.7 % [facility] MCH (RBC) [Entitic mass] 24.9 pg Low 26.0 - 34.0 pg [facility] MCHC (RBC) [Mass/Vol] 29.9 g/dL Low 30.5 - 36.0 g/dL [facility] MCV (RBC) [Entitic vol] 83.4 fL 80.0 - 100.0 fL [facility] Monocytes (Bld) [#/Vol] 0.59 10*3/uL [facility] Monocytes/100 WBC (Bld) 7.1 % [facility] Neutrophils (Bld) [#/Vol] 6.02 10*3/uL [facility] Neutrophils/100 WBC (Bld) 72.5 % [facility] Nucleated RBC (Bld) [#/Vol] [facility] Nucleated RBC/100 WBC (Bld) [Ratio] 0.0 % /100 WBC [facility] Platelet mean volume (Bld) [Entitic vol] 10.2 fL 9.0 - 12.7 fL [facility] Platelets (Bld) [#/Vol] 317 10*3/uL [facility] RBC (Bld) [#/Vol] 3.85 10*6/uL Low 3.90 - 5.2 0 m/uL [facility] WBC (Bld) [#/Vol] 8.31 10*3/uL [facility] Basophils (Bld) [#/Vol] 0.06 10*3/uL Normal <0.11 [facility] Comment on above: Order Comment: Speci men Type: BLOOD SPECIMENOrdering Facility: [facility] Address: [address] [place] [address] Performed By: #### 5 7021-8 ####[facility] JONATHANJUSTOLIA [id number] [place] [address] [place] Basophils/100 WBC (Bld) 0.7 % Normal [facility] Comment on above: Order Comment: Speci men Type: BLOOD SPECIMENOrdering Facility: [facility] Address: [address] [place] [address] Performed By: #### 5 7021-8 ####[facility] MIAMIBRITTANYLIA [id number] [place] [address] [place] Differential cell count method Nom (Bld) Auto Normal [facility] Comment on above: Order Comment: Speci men Type: BLOOD SPECIMENOrdering Facility: [facility] Address: [address] [place] [address] Performed By: #### 5 7021-8 ####[facility] H[facility]IT[facility] [id number] [place] [address] [place] Eosinophils (Bld) [#/Vol] 0.16 10*3/uL Normal <0.46 [facility] Comment on above: Order Comment: Speci men Type: BLOOD SPECIMENOrdering Facility: [facility] Address: [address] [place] [address] Performed By: #### 5 7021-8 ####[facility] MILLWNCLIA [id number] [place] [address] [place] Eosinophils/100 WBC (Bld) 1.9 % Normal [facility] Comment on above: Order Comment: Speci men Type: BLOOD SPECIMENOrdering Facility: [facility] Address: [address] [place] [address] Performed By: #### 5 7021-8 ####[facility] JONATHANWNCLIA [id number] [place] [address] [place] Erythrocyte distribution width (RBC) [Ratio] 13.0 % Normal 11.5-15.0 [facility] Comment on above: Order Comment: Speci men Type: BLOOD SPECIMENOrdering Facility: [facility] Address: [address] [place] [address] Performed By: #### 5 7021-8 ####[facility] [id number] [place] [address] [place] Hematocrit (Bld) [Volume fraction] 32.1 % Low 36.0-46.0 [facility] Comment on above: Order Comment: Speci men Type: BLOOD SPECIMENOrdering Facility: [facility] Address: [address] [place] [address] Performed By: #### 5 7021-8 ####[facility] [id number] [place] [address] [place] Hemoglobin (Bld) [Mass/Vol] 9.6 g/dL Low 11.5-15.5 [facility] Comment on above: Order Comment: Speci men Type: BLOOD SPECIMENOrdering Facility: [facility] Address: [address] [place] [address] Performed By: #### 5 7021-8 ####[facility]ITALLIA [id number] [place] [address] [place] Immature granulocytes (Bld) [#/Vol] 10*3/uL Normal <0.10 [facility] Comment on above: Order Comment: Speci men Type: BLOOD SPECIMENOrdering Facility: [facility] Address: [address] [place] [address] Performed By: #### 5 7021-8 ####[facility] MIAMINCLIA [id number] [place] [address] [place] Immature granulocytes/100 WBC (Bld) 0.1 % Normal [facility] Comment on above: Order Comment: Speci men Type: BLOOD SPECIMENOrdering Facility: [facility] Address: [address] [place] [address] Performed By: #### 5 7021-8 ####[facility]INC[facility] [id number] [place] [address] [place] Lymphocytes (Bld) [#/Vol] 1.47 10*3/uL Normal 1.00-4.00 [facility] Comment on above: Order Comment: Speci men Type: BLOOD SPECIMENOrdering Facility: [facility] Address: [address] [place] [address] Performed By: #### 5 7021-8 ####[facility] [id number] [place] [address] [place] Lymphocytes/100 WBC (Bld) 17.7 % Normal [facility] Comment on above: Order Comment: Speci men Type: BLOOD SPECIMENOrdering Facility: [facility] Address: [address] [place] [address] Performed By: #### 5 7021-8 ####[facility] MIAMINCLI [id number] [place] [address] [place] MCH (RBC) [Entitic mass] 24.9 pg Low 26.0-34.0 [facility] Comment on above: Order Comment: Speci men Type: BLOOD SPECIMENOrdering Facility: [facility] Address: [address] [place] [address] Performed By: #### 5 7021-8 ####[facility] [id number] [place] [address] [place] MCHC (RBC) [Mass/Vol] 29.9 g/dL Low 30.5-36.0 [facility] Comment on above: Order Comment: Speci men Type: BLOOD SPECIMENOrdering Facility: [facility] Address: [address] [place] [address] Performed By: #### 5 7021-8 ####[facility] JONATHANOKLAHOMA CITYARIELA [id number] [place] [address] [place] MCV (RBC) [Entitic vol] 83.4 fL Normal 80.0-100.0 [facility] Comment on above: Order Comment: Speci men Type: BLOOD SPECIMENOrdering Facility: [facility] Address: [address] [place] [address] Performed By: #### 5 7021-8 ####[facility]INC[facility] [id number] [place] [address] [place] Monocytes (Bld) [#/Vol] 0.59 10*3/uL Normal <0.87 [facility] Comment on above: Order Comment: Speci men Type: BLOOD SPECIMENOrdering Facility: [facility] Address: [address] [place] [address] Performed By: #### 5 7021-8 ####[facility] MIAMINCA [id number] [place] [address] [place] Monocytes/100 WBC (Bld) 7.1 % Normal [facility] Comment on above: Order Comment: Speci men Type: BLOOD SPECIMENOrdering Facility: [facility] Address: [address] [place] [address] Performed By: #### 5 7021-8 ####[facility] MIAMINCLIA [id number] [place] [address] [place] Neutrophils (Bld) [#/Vol] 6.02 10*3/uL Normal 1.45-7.50 [facility] Comment on above: Order Comment: Speci men Type: BLOOD SPECIMENOrdering Facility: [facility] Address: [address] [place] [address] Performed By: #### 5 7021-8 ####[facility] JONATHANWBRITTANYLIA [id number] [place] [address] [place] Neutrophils/100 WBC (Bld) 72.5 % Normal [facility] Comment on above: Order Comment: Speci men Type: BLOOD SPECIMENOrdering Facility: [facility] Address: [address] [place] [address] Performed By: #### 5 7021-8 ####[facility] MIAMIBRITTANYLIA [id number] [place] [address] [place] Nucleated RBC (Bld) [#/Vol] 10*3/uL Normal <0.01 [facility] Comment on above: Order Comment: Speci men Type: BLOOD SPECIMENOrdering Facility: [facility] Address: [address] [place] [address] Performed By: #### 5 7021-8 ####[facility] [id number] [place] [address] [place] Nucleated RBC/100 WBC (Bld) [Ratio] 0.0 /100 WBC Normal [facility] Comment on above: Order Comment: Speci men Type: BLOOD SPECIMENOrdering Facility: [facility] Address: [address] [place] [address] Performed By: #### 5 7021-8 ####[facility] HOSPITALDEXTERA [id number] [place] [address] [place] Platelet mean volume (Bld) [Entitic vol] 10.2 fL Normal 9.0-12.7 [facility] Comment on above: Order Comment: Speci men Type: BLOOD SPECIMENOrdering Facility: [facility] Address: [address] [place] [address] Performed By: #### 5 7021-8 ####[facility]ITALL[facility] [id number] [place] [address] [place] Platelets (Bld) [#/Vol] 317 10*3/uL Normal 150-400 [facility] Comment on above: Order Comment: Speci men Type: BLOOD SPECIMENOrdering Facility: [facility] Address: [address] [place] [address] Performed By: #### 5 7021-8 ####[facility]KAWNCL[facility] [id number] [place] [address] [place] RBC (Bld) [#/Vol] 3.85 10*6/uL Low 3.90-5.20 [facility] Comment on above: Order Comment: Speci men Type: BLOOD SPECIMENOrdering Facility: [facility] Address: [address] [place] [address] Performed By: #### 5 7021-8 ####[facility]AMINCL[facility] [id number] [place] [address] [place] WBC (Bld) [#/Vol] 8.31 10*3/uL Normal 3.70-11.00 [facility] Comment on above: Order Comment: Speci men Type: BLOOD SPECIMENOrdering Facility: [facility] Address: [address] [place] [address] Performed By: #### 5 7021-8 ####[facility] MIAMINCLIA [id number] [place] [address] [place] CNOVSPon 04-08-2024 CNOVSP Visit (SP) Office (H EMAWS) -- KERRIE KEARNEY ([id number]) 1945 F Date Time Provider Department 04/08/24 2:00 PM MASCI, ADAN A HEMAWS During your visit today, we recorded the following information about you: Temperature Pulse Blood pressure Weight 97.5 degrees 85/minute 129/69 66.5 kg Height 1.49 m TylerAdanDO 04/08/2024 2:57 PM Signed Kerrie Kearney is a 78 year old female referred by Dr. Orlando for monoclonal gammopathy. HPI: The patient is a 78-year-old female with a past medical history significant for meningitis, elevated LFTs, cognitive impairment, imbalance, dysphagia, psoriasis, IBS, GERD, ectatic thoracic aorta, hypertension, hyperlipidemia, type 2 diabetes, thyrotoxicosis, hypothyroidism, anemia and monoclonal gammopathy. Lab work showed elevated serum kappa and lambda light chain with normal ratio. Immunofixation serum detected no monoclonal protein. Total IgM was mildly elevated at 233 mg/dL. The serum IgG and IgA levels were normal. Immunofixation spot urine was negative. CBC showed a white count of 8000. Hemoglobin 10.2 g/dL with an MCH low at 26.4 pg. MCHC was low at 31.1 g/dL. Serum creatinine 1.19 mg/dL with calcium normal at 10.2 mg/dL. Serum ferritin is 15 ng/mL. Iron saturation 9%. TIBC 371. LDH 176. Vitamin B12 was 447 pg/mL. Serum folic acid 6.6 ng/mL. Hemoglobin A1c 9.5%. Started on liquid iron supplement about a month ago. recalls getting it at [facility]. Was living in [place]. Moved back to [place] early summer. Was admitted to [facility] for meningitis 12/2023. Transferred to [facility]. Course complicated by SBO. Had surgery for that 01/22/2024. Appetite not great. No dysphagia. No nausea. Takes PPI--No reflux. Bowels move daily. Formed stools. No black or bloody stools. PAST SURGICAL HISTORY Procedure Laterality Date BOWEL RESECTION HX ALLERGIES Allergen Reactions Sulfa (Sulfonamide * Itching Social History Tobacco Use Smoking status: Never Smokeless tobacco: Never Vaping Use Vaping status: Never Used Substance Use Topics Alcohol use: Never Drug use: Never REVIEW OF SYSTEMS: Constitutional: No episodes of fever and night sweats. Neuro: Uses walker. HEENT: No recent change in voice, vision or hearing. Resp: No cough, wheeze and hemoptysis. No shortness of breath at rest. CVS: No exertional chest pain, PND, orthopnea and LE edema. GI: See above. : No dysuria or gross hematuria. Endo: No hot flashes. No polyuria and polydipsia. No heat and cold intolerance. Musculoskeletal: Chronic LBP--curvature of spine. Pain not constant. Derm: No current rash. No history of jaundice or diffuse pruritis. Heme: No unusual bleeding and unexplained bruising. Psych: Normal mood. PHYSICAL EXAM: Vitals: Blood pressure 129/69, pulse 85, temperature 36.4 ?C (97.5 ?F), temperature source Temporal, height 149 cm (4' 10.66), weight 66.5 kg (146 lb 8 oz), SpO2 99%. Well-appearing and in no acute distress. EYES: Sclerae are anicteric bilaterally. LYMPHATIC: There is no palpable adenopathy. RESPIRATORY: Normal passive respiration. CARDIOVASCULAR: Rhythm is regular. No murmur. ABDOMEN: The abdomen is nondistended.. Extremities: No swelling or edema. SKIN: No jaundice. ASSESSMENT/PLAN: (D50.9) Iron deficiency anemia, unspecified iron deficiency anemia type (primary encounter diagnosis) Assessment: -78 yo female with PMH as outlined above. -Admitted for meningitis complicated by SBO. -Mild increase in serum IgM with no MP by SPEP or AYLEEN. -Serum light chains increased but ratio normal. -Iron deficient. Started oral iron supplement. -May not be absorbing well due to PPI. Plan: -Check CBC/Iron. -Parenteral iron if still low. I spent a total of 45 minutes on the date of the service which included preparing to see the patient, hvjo-sy-maih patient care, completing clinical documentation, obtaining and/or reviewing separately obtained history, performing a medically appropriate examination, counseling and educating the patient/family/caregiver, ordering medications, tests, or procedures, communicating with other HCPs (not separately reported), and communicating results to the patient/family/caregiver. Adan Scott DO Allergies As of Date: 04/08/2024 Noted Allergy Reaction SULFA (SULFONAMIDE ANTIBIOTICS) 04/08/2024 9 - Itching Date Reviewed: 04/08/2024 Reviewed by: Adan Scott DO - Fully Assessed Reason for Visit: New Patient [172] Primary Visit Diagnosis:Iron deficiency anemia, unspecified iron deficiency anemia type [D50.9] Order(s):COMPLETE BLOOD COUNT AND DIFFERENTIAL [SQCBCDIF] Order #: [id number] FUTURE IRON AND TIBC [SQIRON] Order #: [id number] FUTURE FERRITIN [SQFERR] Order #: [id number] FUTURE COMPREHENSIVE METABOLIC PANEL [SQCMP] Order #: [id number] FUTURE Follow-up and Disposition History for Encounter Date Pro (more content not included)... Normal [facility] metabolic 2000 panelOrdered By: Radha Mcadams on 04-08-2024 Albumin [Mass/Vol] 4.3 g/dL 3.9 - 4.9 g/dL [facility] ALP [Catalytic activity/Vol] 100 U/L 34 - 123 U/L [facility] ALT [Catalytic activity/Vol] 7 U/L 7 - 38 U/L [facility] Anion gap [Moles/Vol] 14 mmol/L 8 - 15 mmol/L [facility] AST [Catalytic activity/Vol] 11 U/L Low 13 - 35 U/L [facility] Bilirubin [Mass/Vol] 0.2 mg/dL 0.2 - 1 .3 mg/dL [facility] Calcium [Mass/Vol] 10.2 mg/dL 8.5 - 10. 2 mg/dL [facility] Chloride [Moles/Vol] 102 mmol/L 98 - 10 7 mmol/L [facility] CO2 [Moles/Vol] 20 mmol/L Low 22 - 30 mmol/L [facility] Creatinine [Mass/Vol] 1.17 mg/dL High 0.58 - 0.96 mg/dL [facility] GFR/1.73 sq M.predicted among non-blacks MDRD (S/P/Bld) [Vol rate/Area] 48 mL/min/{1.73_m2} Low - PINF [facility] Comment on above: Estimated Glomerular Filtration Rate (eGFR) is calculated using the 2020 CKD-EPI creatinine equation. This equation utilizes serum creatinine, sex, and age as parameters. The creatinine assay has traceable calibration to isotope dilution-mass spectrometry. Refer to KDIGO guidelines for clinical interpretation. In patients with unstable renal function, e.g. those with acute kidney injury, the eGFR may not accurately reflect actual GFR. Glucose [Mass/Vol] 215 mg/dL High 74 - 99 mg/dL [facility] Comment on above: The [place] Diabete s Association (ADA) provides guidance for cutoff values for fasting glucose and random glucose. The ADA defines fasting as no caloric intake for at least 8 hours. Fasting plasma glucose results between 100 to 125 mg/dL indicate increased risk for diabetes (prediabetes). Fasting plasma glucose results greater than or equal to 126 mg/dL meet the criteria for diagnosis of diabetes. In the absence of unequivocal hyperglycemia, results should be confirmed by repeat testing. In a patient with classic symptoms of hyperglycemia or hyperglycemic crisis, random plasma glucose results greater than or equal to 200 mg/dL meet the criteria for diagnosis of diabetes. Reference: Standards of Medical Care in Diabetes 2016, [place] Diabetes Association. Diabetes Care. 2016.39(Suppl 1). Interpretation and review of laboratory results Abnormal [facility] Potassium [Moles/Vol] 4.4 mmol/L 3.7 - 5.1 mmol/L [facility] Protein [Mass/Vol] 7.3 g/dL 6.3 - 8.0 g/dL [facility] Sodium [Moles/Vol] 136 mmol/L 136 - 144 mmol/L [facility] Urea nitrogen [Mass/Vol] 56 mg/dL High 7 - 21 mg/dL [facility] metabolic 2000 panelon 04-08-2024 Albumin [Mass/Vol] 4.3 g/dL Normal 3.9-4.[address] [facility] Comment on above: Order Comment: Speci men Type: BLOOD SPECIMENOrdering Facility: [facility] Address: [address] [place] [address] Performed By: #### 2 4323-8 ####[facility] [id number] [place] [address] [place] ALP [Catalytic activity/Vol] 100 U/L Normal 34-123 [facility] Comment on above: Order Comment: Speci men Type: BLOOD SPECIMENOrdering Facility: [facility] Address: [address] [place] [address] Performed By: #### 2 4323-8 ####[facility] [id number] [place] [address] [place] ALT [Catalytic activity/Vol] 7 U/L Normal 7-38 [facility] Comment on above: Order Comment: Speci men Type: BLOOD SPECIMENOrdering Facility: [facility] Address: [address] [place] [address] Performed By: #### 2 4323-8 ####[facility] JONAHTANWNCLIA [id number] [place] [address] [place] Anion gap [Moles/Vol] 14 mmol/L Normal 8-15 [facility] Comment on above: Order Comment: Speci men Type: BLOOD SPECIMENOrdering Facility: [facility] Address: [address] [place] [address] Performed By: #### 2 4323-8 ####[facility] MIAMINCL[facility] [id number] [place] [address] [place] AST [Catalytic activity/Vol] 11 U/L Low 13-35 [facility] Comment on above: Order Comment: Speci men Type: BLOOD SPECIMENOrdering Facility: [facility] Address: [address] [place] [address] Performed By: #### 2 4323-8 ####[facility]ITAL[facility] [id number] [place] [address] [place] Bilirubin [Mass/Vol] 0.2 mg/dL Normal 0.2-1.3 [facility] Comment on above: Order Comment: Speci men Type: BLOOD SPECIMENOrdering Facility: [facility] Address: [address] [place] [address] Performed By: #### 2 4323-8 ####[facility] MIAMINCLIA [id number] [place] [address] [place] Calcium [Mass/Vol] 10.2 mg/dL Normal 8.5-10.[address] [facility] Comment on above: Order Comment: Speci men Type: BLOOD SPECIMENOrdering Facility: [facility] Address: [address] [place] [address] Performed By: #### 2 4323-8 ####[facility] MILLWNCLIA [id number] [place] [address] [place] Chloride [Moles/Vol] 102 mmol/L Normal 98-107 [facility] Comment on above: Order Comment: Speci men Type: BLOOD SPECIMENOrdering Facility: [facility] Address: [address] [place] [address] Performed By: #### 2 4323-8 ####[facility] MIAMINCL[facility] [id number] [place] [address] [place] CO2 [Moles/Vol] 20 mmol/L Low 22-30 [facility] Comment on above: Order Comment: Speci men Type: BLOOD SPECIMENOrdering Facility: [facility] Address: [address] [place] [address] Performed By: #### 2 4323-8 ####[facility] [id number] [place] [address] [place] Creatinine [Mass/Vol] 1.17 mg/dL High 0.58-0.96 [facility] Comment on above: Order Comment: Speci men Type: BLOOD SPECIMENOrdering Facility: [facility] Address: [address] [place] [address] Performed By: #### 2 4323-8 ####[facility] [id number] [place] [address] [place] [facility] Creatinine and Glomerular filtration rate.predicted panel (S/P/Bld) 48 mL/min/1.73m??? Low >=60 [facility] Comment on above: Order Comment: Speci men Type: BLOOD SPECIMENOrdering Facility: [facility] Address: [address] [place] [address] Result Comment: Isabella mated Glomerular Filtration Rate (eGFR) is calculated using the 2020 CKD-EPI creatinine equation. This equation utilizes serum creatinine, sex, and age as parameters. The creatinine assay has traceable calibration to isotope dilution-mass spectrometry. Refer to KDIGO guidelines for clinical interpretation. In patients with unstable renal function, e.g. those with acute kidney injury, the eGFR may not accurately reflect actual GFR. Performed By: #### 2 4323-8 ####[facility]ANYL[facility] [id number] [place] [address] [place] Glucose [Mass/Vol] 215 mg/dL High 74-[address] [facility] Comment on above: Order Comment: Speci men Type: BLOOD SPECIMENOrdering Facility: [facility] Address: [address] [place], [place] [address] Result Comment: The [place] Diabetes Association (ADA) provides guidance for cutoff values for fasting glucose and random glucose. The ADA defines fasting as no caloric intake for at least 8 hours. Fasting plasma glucose results between 100 to 125 mg/dL indicate increased risk for diabetes (prediabetes). Fasting plasma glucose results greater than or equal to 126 mg/dL meet the criteria for diagnosis of diabetes. In the absence of unequivocal hyperglycemia, results should be confirmed by repeat testing. In a patient with classic symptoms of hyperglycemia or hyperglycemic crisis, random plasma glucose results greater than or equal to 200 mg/dL meet the criteria for diagnosis of diabetes. Reference: Standards of Medical Care in Diabetes 2016, [place] Diabetes Association. Diabetes Care. 2016.39(Suppl 1). Performed By: #### 2 4323-8 ####[facility] [id number] [place] [address] [place] Potassium [Moles/Vol] 4.4 mmol/L Normal 3.7-5.1 [facility] Comment on above: Order Comment: Speci men Type: BLOOD SPECIMENOrdering Facility: [facility] Address: [address] [place] [address] Performed By: #### 2 4323-8 ####[facility]OPKAWNCL[facility] [id number] [place] [address] [place] Protein [Mass/Vol] 7.3 g/dL Normal 6.3-8.[address] [facility] Comment on above: Order Comment: Speci men Type: BLOOD SPECIMENOrdering Facility: [facility] Address: [address] [place] [address] Performed By: #### 2 4323-8 ####[facility] [id number] [place] [address] [place] Sodium [Moles/Vol] 136 mmol/L Normal 136-[address] [facility] Comment on above: Order Comment: Speci men Type: BLOOD SPECIMENOrdering Facility: [facility] Address: [address] [place] [address] Performed By: #### 2 4323-8 ####[facility] [id number] [place] [address] [place] Urea nitrogen [Mass/Vol] 56 mg/dL High 7-21 [facility] Comment on above: Order Comment: Speci men Type: BLOOD SPECIMENOrdering Facility: [facility] Address: [address] [place] [address] Performed By: #### 2 4323-8 ####[facility] [id number] [place] [address] [place] Ferritin SerPl-mCncon 2023 Ferritin [Mass/Vol] 9.4 ng/mL Low 14.7-205.1 [facility] Comment on above: Order Comment: Speci men Type: BLOOD SPECIMENOrdering Facility: [facility] Address: [address] [place] [address] Performed By: #### 2 276-4, 43972-3 ####[facility] LABCLIA [id number] [place] [address] [place] Iron and Iron binding capaci ty panelon 04-08-2024 Iron [Mass/Vol] 20 ug/dL Low 41-186 [facility] Comment on above: Order Comment: Speci men Type: BLOOD SPECIMENOrdering Facility: [facility] Address: [address] [place], [place] [address] Performed By: #### 2 276-4, 00868-1 ####[facility] LABCLIA [id number] [place] [id number] [place] Iron binding capacity [Mass/Vol] 444 ug/dL High 232-386 [facility] Comment on above: Order Comment: Speci men Type: BLOOD SPECIMENOrdering Facility: [facility] Address: [address] [place] [address] Performed By: #### 2 276-4, 39376-4 ####[facility] LABCLIA [id number] [place] [address] [place] Iron/TIBC [Molar ratio] 4.5 % Low 15.0-57.0 [facility] Comment on above: Order Comment: Speci men Type: BLOOD SPECIMENOrdering Facility: [facility] Address: [address] [place] [address] Performed By: #### 2 276-4, 97177-7 ####[facility] LABIA [id number] [place] [address] [place] Basic Metabolic Profile (BMP )on 02-07-2024 BUN/CRE 11.8 RATIO Normal 10-20 [facility] Comment on above: Order Comment: 211.1 Performed By: #### L 500.2500, L100.0500 ####[facility] [address] [place], [address] [place],Total 9.4 mg/dL Normal 8.5-10.1 [facility] Comment on above: Order Comment: 211.1 Performed By: #### L 500.2500, L100.0500 ####[facility] [address] [place], [address] Chloride [Moles/Vol] 109 mmol/L High 98-[address] [facility] Comment on above: Order Comment: 211.1 Performed By: #### L 500.2500, L100.0500 ####[facility] [address] [place], [address] CO2 [Moles/Vol] 29.0 mmol/L Normal 21.0-32.0 [facility] Comment on above: Order Comment: . Performed By: #### L 500.2500, L100.0500 ####[facility] [address] [place], [address] Creatinine [Mass/Vol] 1.02 mg/dL Normal 0.55-1.02 [facility] Comment on above: Order Comment: .1 Result Comment: The validity of the calculated GFR GFRAA in patients over70 years has not been determined. Clinical correlation isessential. Performed By: #### L 500.2500, L100.0500 ####[facility] [address] [place], [address] EST GFR - AA 68 mL/min Normal >60 [facility] Comment on above: Order Comment: .1 Result Comment: Afri can Mongolian GFR Calc Performed By: #### L 500.2500, L100.0500 ####[facility] [address] [place], [address] GAP 4 Low 5-15 [facility] Comment on above: Order Comment: . Performed By: #### L 500.2500, L100.0500 ####[facility] [address] [place], [address] GFR/1.73 sq M.predicted among non-blacks MDRD (S/P/Bld) [Vol rate/Area] 56 mL/min/{1.73_m2} Low >60 [facility] Comment on above: Order Comment: 211.1 Result Comment: Non- GFR Calc Performed By: #### L 500.2500, L100.0500 ####[facility] [address] [place], [address] Glucose [Mass/Vol] 168 mg/dL High 74-106 [facility] Comment on above: Order Comment: 211.1 Result Comment: Fast ing Glucose result greater than or equal to 126 mg/dLsuggests DIABETES MELLITUS per A.D.A. criteria. Performed By: #### L 500.2500, L100.0500 ####[facility] [address] [place], [address] Potassium [Moles/Vol] 3.9 mmol/L Normal 3.5-5.1 [facility] Comment on above: Order Comment: . Performed By: #### L 500.2500, L100.0500 ####[facility] [address] [place], [address] Sodium [Moles/Vol] 142 mmol/L Normal 136-145 [facility] Comment on above: Order Comment: . Performed By: #### L 500.2500, L100.0500 ####[facility] [address] [place], [address] Urea nitrogen [Mass/Vol] 12 mg/dL Normal 7-18 [facility] Comment on above: Order Comment: . Performed By: #### L 500.2500, L100.0500 ####[facility] [address] [place], [address] CBC-Complete Blood Cnt No Di ffon 02-07-2024 Erythrocyte distribution width (RBC) [Ratio] 13.2 % Normal 11.6-14.6 [facility] Comment on above: Order Comment: 211. Performed By: #### L 500.2500, L100.0500 ####[facility] [address] [place], [address] Hematocrit (Bld) [Volume fraction] 29.9 % Low 37-47 [facility] Comment on above: Order Comment: 211.1 Performed By: #### L 500.2500, L100.0500 ####[facility] [address] [place], [address] Hemoglobin (Bld) [Mass/Vol] 9.1 g/dL Low 12.0-15.0 [facility] Comment on above: Order Comment: 211.1 Performed By: #### L 500.2500, L100.0500 ####[facility] [address] [place], [address] MCH (RBC) [Entitic mass] 27.2 pg Normal 27.0-32.0 [facility] Comment on above: Order Comment: 211.1 Performed By: #### L 500.2500, L100.0500 ####[facility] [address] [place], [address] MCHC (RBC) [Mass/Vol] 30.4 g/dL Low 32-36 [facility] Comment on above: Order Comment: 211.1 Performed By: #### L 500.2500, L100.0500 ####[facility] [address] [place], [address] MCV (RBC) [Entitic vol] 89.3 fL Normal 81-99 [facility] Comment on above: Order Comment: 211.1 Performed By: #### L 500.2500, L100.0500 ####[facility] [address] [place], [address] Platelet mean volume (Bld) [Entitic vol] 10.5 fL Normal 6.2-12.0 [facility] Comment on above: Order Comment: 211.1 Performed By: #### L 500.2500, L100.0500 ####[facility] [address] [place], [address] Platelets (Bld) [#/Vol] 359 10*3/uL Normal 150-450 [facility] Comment on above: Order Comment: 211.1 Performed By: #### L 500.2500, L100.0500 ####[facility] [address] [place], [address] RBC (Bld) [#/Vol] 3.35 10*6/uL Low 4.2-5.4 [facility] Comment on above: Order Comment: 211. Performed By: #### L 500.2500, L100.0500 ####[facility] [address] [place], [address] RDW SD 43.1 fl Normal 35.1-43.9 [facility] Comment on above: Order Comment: . Performed By: #### L 500.2500, L100.0500 ####[facility] [address] [place], [address] WBC (Bld) [#/Vol] 5.7 10*3/uL Normal 4.4-11.0 [facility] Comment on above: Order Comment: . Performed By: #### L 500.2500, L100.0500 ####[facility] [address] [place], [address] Basic Metabolic Profile (BMP )on 01-31-2024 BUN/CRE 12.4 RATIO Normal 10-20 [facility] Comment on above: Performed By: #### L 100.0500, L500.2500 ####[facility] [address] [place], [address] CA,Total 8.9 mg/dL Normal 8.5-10.1 [facility] Comment on above: Performed By: #### L 100.0500, L500.2500 ####[facility] [address] [place], [address] Chloride [Moles/Vol] 104 mmol/L Normal 98-[address] [facility] Comment on above: Performed By: #### L 100.0500, L500.2500 ####[facility] [address] [place], [address] CO2 [Moles/Vol] 28.0 mmol/L Normal 21.0-32.0 [facility] Comment on above: Performed By: #### L 100.0500, L500.2500 ####[facility] [address] [place], [address] Creatinine [Mass/Vol] 1.21 mg/dL High 0.55-1.02 [facility] Comment on above: Result Comment: The validity of the calculated GFR GFRAA in patients over70 years has not been determined. Clinical correlation isessential. Performed By: #### L 100.0500, L500.2500 ####[facility] [address] [place], [address] EST GFR - AA 56 mL/min Low >60 [facility] Comment on above: Result Comment: Afri can Mongolian GFR Calc Performed By: #### L 100.0500, L500.2500 ####[facility] [address] [place], [address] GAP 6 Normal 5-15 [facility] Comment on above: Performed By: #### L 100.0500, L500.2500 ####[facility] [address] [place], [address] GFR/1.73 sq M.predicted among non-blacks MDRD (S/P/Bld) [Vol rate/Area] 46 mL/min/{1.73_m2} Low >60 [facility] Comment on above: Result Comment: Non- GFR Calc Performed By: #### L 100.0500, L500.2500 ####[facility] [address] [place], [address] Glucose [Mass/Vol] 177 mg/dL High 74-106 [facility] Comment on above: Result Comment: Fast ing Glucose result greater than or equal to 126 mg/dLsuggests DIABETES MELLITUS per A.D.A. criteria. Performed By: #### L 100.0500, L500.2500 ####[facility] [address] [place], [address] Potassium [Moles/Vol] 3.9 mmol/L Normal 3.5-5.1 [facility] Comment on above: Performed By: #### L 100.0500, L500.2500 ####[facility] [address] [place], [address] Sodium [Moles/Vol] 138 mmol/L Normal 136-145 [facility] Comment on above: Performed By: #### L 100.0500, L500.2500 ####[facility] [address] [place], [address] Urea nitrogen [Mass/Vol] 15 mg/dL Normal 7-18 [facility] Comment on above: Performed By: #### L 100.0500, L500.2500 ####[facility] [address] [place], [address] CBC-Complete Blood Cnt No Di ffon 01-31-2024 Erythrocyte distribution width (RBC) [Ratio] 13.2 % Normal 11.6-14.6 [facility] Comment on above: Performed By: #### L 100.0500, L500.2500 ####[facility] [address] [place], [address] Hematocrit (Bld) [Volume fraction] 27.1 % Low 37-47 [facility] Comment on above: Performed By: #### L 100.0500, L500.2500 ####[facility] [address] [place], [address] Hemoglobin (Bld) [Mass/Vol] 8.3 g/dL Low 12.0-15.0 [facility] Comment on above: Performed By: #### L 100.0500, L500.2500 ####[facility] [address] [place], [address] MCH (RBC) [Entitic mass] 27.4 pg Normal 27.0-32.0 [facility] Comment on above: Performed By: #### L 100.0500, L500.2500 ####[facility] [address] [place], [address] MCHC (RBC) [Mass/Vol] 30.6 g/dL Low 32-36 [facility] Comment on above: Performed By: #### L 100.0500, L500.2500 ####[facility] [address] [place], [address] MCV (RBC) [Entitic vol] 89.4 fL Normal 81-99 [facility] Comment on above: Performed By: #### L 100.0500, L500.2500 ####[facility] [address] [place], [address] Platelet mean volume (Bld) [Entitic vol] 10.4 fL Normal 6.2-12.0 [facility] Comment on above: Performed By: #### L 100.0500, L500.2500 ####[facility] [address] [place], [address] Platelets (Bld) [#/Vol] 337 10*3/uL Normal 150-450 [facility] Comment on above: Performed By: #### L 100.0500, L500.2500 ####[facility] [address] [place], [address] RBC (Bld) [#/Vol] 3.03 10*6/uL Low 4.2-5.4 [facility] Comment on above: Performed By: #### L 100.0500, L500.2500 ####[facility] [address] [place], [address] RDW SD 42.4 fl Normal 35.1-43.9 [facility] Comment on above: Performed By: #### L 100.0500, L500.2500 ####[facility] [address] [place], [address] WBC (Bld) [#/Vol] 8.1 10*3/uL Normal 4.4-11.0 [facility] Comment on above: Performed By: #### L 100.0500, L500.2500 ####[facility] [address] [place], [address] BASIC METABOLIC PANELon - Anion gap [Moles/Vol] 11 mmol/L 7 - 17 [facility]L [facility] Calcium [Mass/Vol] 8.6 mg/dL 8.6 - 10. 5 mg/dL [facility] Chloride [Moles/Vol] 101 mmol/L 98 - 10 8 mmol/L [facility] CO2 [Moles/Vol] 26 mmol/L 21 - 31 mmol/L [facility] Creatinine [Mass/Vol] 1.19 mg/dL 0.50 - 1.20 mg/dL [facility] eGFR, CKD-EPI, Female 47 Low - PINF [facility] Glucose [Mass/Vol] 231 mg/dL High 70 - 99 mg/dL [facility] Interpretation and review of laboratory results Abnormal [facility] Osmolality Calc [Osmolality] 292 [facility] Potassium [Moles/Vol] 4.0 mmol/L 3.5 - 5.0 mmol/L [facility] Sodium [Moles/Vol] 134 mmol/L Low 135 - 145 mmol/L [facility] Urea nitrogen [Mass/Vol] 18 mg/dL 7 - 25 mg/dL [facility] Urea nitrogen/Creatinine [Mass ratio] 15 mg/[facility] Anion gap [Moles/Vol] 11 mmol/L Normal 7-17 [facility] Comment on above: Performed By: #### B FLD #### U [facility] (DEFAULT) [address] [place] [address] Calcium [Mass/Vol] 8.6 mg/dL Normal 8.6-10.5 [facility] Comment on above: Performed By: #### B FLD #### [facility] [facility] (DEFAULT) [address] [place] [address] Chloride [Moles/Vol] 101 mmol/L Normal 98-[address] [facility] Comment on above: Performed By: #### B FLD #### [place] [facility] (DEFAULT) [address] [place] [address] CO2 [Moles/Vol] 26 mmol/L Normal 21-31 [facility] Comment on above: Performed By: #### Genia FLD #### [facility] (DEFAULT) [address] [place] [address] Creatinine [Mass/Vol] 1.19 mg/dL Normal 0.50-1.20 [facility] Comment on above: Performed By: #### B FLD #### [facility] [facility] (DEFAULT) [address] [place] [address] GFR/1.73 sq M.predicted among non-blacks MDRD (S/P/Bld) [Vol rate/Area] 47 mL/min/{1.73_m2} Low >=[address] [facility] Comment on above: Result Comment: Repo rted eGFR is based on the CKD-EPI 2020 equation using creatinine, age, and sex. Performed By: #### B FLD #### [facility] (DEFAULT) [address] [place] [address] Glucose [Mass/Vol] 231 mg/dL High 70-99 [facility] Comment on above: Performed By: #### B FLD #### [place] [facility] (DEFAULT) [address] [address] Osmolality [Osmolality] 292 mosm/kg Normal 278-[address] [facility] Comment on above: Performed By: #### B FLD #### [place] [facility] (DEFAULT) [address] [address] Potassium [Moles/Vol] 4.0 mmol/L Normal 3.5-5.0 [facility] Comment on above: Performed By: #### B FLD #### [facility] (DEFAULT) [address] [place] [address] Sodium [Moles/Vol] 134 mmol/L Low 135-145 [facility] Comment on above: Performed By: #### B FLD #### [facility] (DEFAULT) [address] [place] [address] Urea nitrogen [Mass/Vol] 18 mg/dL Normal 7-[address] [facility] Comment on above: Performed By: #### B FLD #### U [facility] (DEFAULT) [address] [place] [address] Urea nitrogen/Creatinine [Mass ratio] 15 mg/mg Normal [facility] Comment on above: Performed By: #### B FLD #### [facility] (DEFAULT) [address] [place] [address] CBC,PLATELETSon 01-30-2024 Erythrocyte distribution width (RBC) [Ratio] 13.0 % 10.8 - 14.9 % [facility] Hematocrit (Bld) [Volume fraction] 29.7 % Low 34.9 - 44.3 % [facility] Hemoglobin (Bld) [Mass/Vol] 9.1 g/dL Low 11.4 - 15.2 g/dL [facility] Interpretation and review of laboratory results Abnormal [facility] MCH (RBC) [Entitic mass] 27.4 pg 25.9 - 33.9 pg [facility] MCHC (RBC) [Mass/Vol] 30.6 g/dL Low 31.4 - 35.9 g/dL [facility] MCV (RBC) [Entitic vol] 89.5 fL 79.6 - 97.7 fL [facility] Platelet mean volume (Bld) [Entitic vol] 10.8 fL 8.5 - 12.2 fL [facility] Platelets (Bld) [#/Vol] 343 10*3/uL 150 - 393 K/uL [facility] RBC (Bld) [#/Vol] 3.32 10*6/uL Low [facility] WBC (Bld) [#/Vol] 9.55 10*3/uL 3.99 - 11. 19 K/uL [facility] Hematocrit (Bld) [Volume fraction] 29.7 % Low 34.9-44.[address] [facility] Comment on above: Performed By: #### S URGP #### [facility] (DEFAULT) [address] [address] Hemoglobin (Bld) [Mass/Vol] 9.1 g/dL Low 11.4-15.[address] [facility] Comment on above: Performed By: #### S URGP #### [facility] (DEFAULT) [address] [address] MCV (RBC) [Entitic vol] 89.5 fL Normal 79.6-97.[address] [facility] Comment on above: Performed By: #### S URGP #### [facility] (DEFAULT) [address] [address] Mean Cell Hgb 27.4 pg Normal 25.9-33.[address] [facility] Comment on above: Performed By: #### S URGP #### [facility] (DEFAULT) [address] [address] Mean Cell Hgb Conc 30.6 g/dL Low 31.4-35.9 [facility] Comment on above: Performed By: #### S URGP #### [facility] (DEFAULT) [address] [address] Platelet mean volume (Bld) [Entitic vol] 10.8 fL Normal 8.5-12.[address] [facility] Comment on above: Performed By: #### S URGP #### [facility] (DEFAULT) [address] [address] Platelets (Bld) [#/Vol] 343 10*3/uL Normal 150-[address] [facility] Comment on above: Performed By: #### S URGP #### [facility] (DEFAULT) [address] [place] [address] RBC (Bld) [#/Vol] 3.32 10*6/uL Low 3.91-5.[address] [facility] Comment on above: Performed By: #### S URGP #### U [facility] (DEFAULT) [address] [place] [address] RBC Distribution 13.0 % Normal 10.8-14.9 [facility] Comment on above: Performed By: #### S URGP #### U [facility] (DEFAULT) [address] [place] [address] WBC (Bld) [#/Vol] 9.55 10*3/uL Normal 3.99-11.[address] [facility] Comment on above: Performed By: #### S URGP #### [facility] (DEFAULT) [address] [place] [address] GLUCOSE POCon 01-30-2024 Glucose [Mass/Vol] 227 mg/dL High 70 - 99 mg/dL [facility] Interpretation and review of laboratory results Abnormal [facility] POC Sample Type CAPBL [facility] Glucose [Mass/Vol] 225 mg/dL High 70 - 99 mg/dL [facility] Interpretation and review of laboratory results Abnormal [facility] POC Sample Type CAPBL [facility] MAGNESIUMon 01-30-2024 Interpretation and review of laboratory results Normal [facility] Magnesium [Mass/Vol] 1.6 mg/dL 1.6 - 2 .6 mg/dL [facility] Magnesium [Mass/Vol] 1.6 mg/dL Normal 1.6-2.[address] [facility] Comment on above: Performed By: #### S URGP #### [facility] (DEFAULT) [address] [place] [address] No Panel Informationon 01-29 [facility] BASIC METABOLIC PANELon 01-13 Anion gap [Moles/Vol] 12 mmol/L 7 - 17 mmol/L [facility] Calcium [Mass/Vol] 8.3 mg/dL Low 8.6 - 10. 5 mg/dL [facility] Chloride [Moles/Vol] 104 mmol/L 98 - 10 8 mmol/L [facility] CO2 [Moles/Vol] 26 mmol/L 21 - 31 mmol/L [facility] Creatinine [Mass/Vol] 1.30 mg/dL High 0.50 - 1.20 mg/dL [facility] eGFR, CKD-EPI, Female 43 Low - PINF [facility] Glucose [Mass/Vol] 240 mg/dL High 70 - 99 mg/dL [facility] Interpretation and review of laboratory results Abnormal [facility] Osmolality Calc [Osmolality] 300 [facility] Potassium [Moles/Vol] 3.8 mmol/L 3.5 - 5.0 mmol/L [facility] Sodium [Moles/Vol] 138 mmol/L 135 - 145 mmol/L [facility] Urea nitrogen [Mass/Vol] 18 mg/dL 7 - 25 mg/dL [facility] Urea nitrogen/Creatinine [Mass ratio] 14 mg/mg [facility] Anion gap [Moles/Vol] 12 mmol/L Normal 7-17 [facility] Comment on above: Performed By: #### José 7C, MGO #### [facility] (DEFAULT) [address] [place] [address] Calcium [Mass/Vol] 8.3 mg/dL Low 8.6-10.5 [facility] Comment on above: Performed By: #### José 7C, MGO #### [facility] (DEFAULT) [address] [place] [address] Chloride [Moles/Vol] 104 mmol/L Normal 98-[address] [facility] Comment on above: Performed By: #### José Quiñones, MGO #### [facility] (DEFAULT) [address] [place] [address] CO2 [Moles/Vol] 26 mmol/L Normal 21-31 [facility] Comment on above: Performed By: #### José Quiñones, MGO #### [facility] (DEFAULT) [address] [place] [address] Creatinine [Mass/Vol] 1.30 mg/dL High 0.50-1.20 [facility] Comment on above: Performed By: #### José Quiñones, MGO #### [facility] (DEFAULT) [address] [place] [address] GFR/1.73 sq M.predicted among non-blacks MDRD (S/P/Bld) [Vol rate/Area] 43 mL/min/{1.73_m2} Low >=[address] [facility] Comment on above: Result Comment: Repo rted eGFR is based on the CKD-EPI 2020 equation using creatinine, age, and sex. Performed By: #### José Quiñones, MGO #### [facility] (DEFAULT) [address] [place] [address] Glucose [Mass/Vol] 240 mg/dL High 70-99 [facility] Comment on above: Performed By: #### José Quiñones, MGO #### [facility] (DEFAULT) [address] [place] [address] Osmolality [Osmolality] 300 mosm/kg Normal 278-[address] [facility] Comment on above: Performed By: #### José Quiñones, MGO #### [facility] (DEFAULT) [address] [place] [address] Potassium [Moles/Vol] 3.8 mmol/L Normal 3.5-5.0 [facility] Comment on above: Performed By: #### C 7C, MGO #### [facility] (DEFAULT) [address] [place] [address] Sodium [Moles/Vol] 138 mmol/L Normal 135-145 [facility] Comment on above: Performed By: #### C 7C, MGO #### [facility] (DEFAULT) [address] [place] [address] Urea nitrogen [Mass/Vol] 18 mg/dL Normal 7-[address] [facility] Comment on above: Performed By: #### C 7C, MGO #### [facility] (DEFAULT) [address] [place] [address] Urea nitrogen/Creatinine [Mass ratio] 14 mg/mg Normal [facility] Comment on above: Performed By: #### C 7C, MGO #### [facility] (DEFAULT) [address] [place] [address] GLUCOSE POCon 01-29-2024 Glucose [Mass/Vol] 213 mg/dL High 70 - 99 mg/dL [facility] [facility] Interpretation and review of laboratory results Abnormal [facility] POC Sample Type CAPBL [facility] Glucose [Mass/Vol] 164 mg/dL High 70 - 99 mg/dL [facility] Interpretation and review of laboratory results Abnormal [facility] POC Sample Type CAPBL [facility] Glucose [Mass/Vol] 191 mg/dL High 70 - 99 mg/dL [facility] Interpretation and review of laboratory results Abnormal [facility] POC Sample Type CAPBL [facility] Glucose [Mass/Vol] 231 mg/dL High 70 - 99 mg/dL [facility] Interpretation and review of laboratory results Abnormal [facility] POC Sample Type CAPBL [facility] MAGNESIUMon 01-29-2024 Interpretation and review of laboratory results Normal [facility] Magnesium [Mass/Vol] 1.6 mg/dL 1.6 - 2 .6 mg/dL [facility] Magnesium [Mass/Vol] 1.6 mg/dL Normal 1.6-2.[address] [facility] Comment on above: Performed By: #### C 7C, MGO #### [facility] (DEFAULT) [address] [place] [id number] BASIC METABOLIC PANELon 01-13 Anion gap [Moles/Vol] 12 mmol/L 7 - 17 mmol/L [facility] Calcium [Mass/Vol] 8.5 mg/dL Low 8.6 - 10. 5 mg/dL [facility] Chloride [Moles/Vol] 103 mmol/L 98 - 10 8 mmol/L [facility] CO2 [Moles/Vol] 26 mmol/L 21 - 31 mmol/L [facility] Creatinine [Mass/Vol] 1.15 mg/dL 0.50 - 1.20 mg/dL [facility] eGFR, CKD-EPI, Female 49 Low - PINF [facility] Glucose [Mass/Vol] 221 mg/dL High 70 - 99 mg/dL [facility] Interpretation and review of laboratory results Abnormal [facility] Osmolality Calc [Osmolality] 295 [facility] Potassium [Moles/Vol] 4.0 mmol/L 3.5 - 5.0 mmol/L [facility] Sodium [Moles/Vol] 137 mmol/L 135 - 145 mmol/L [facility] Urea nitrogen [Mass/Vol] 14 mg/dL 7 - 25 mg/dL [facility] Urea nitrogen/Creatinine [Mass ratio] 12 mg/mg [facility] Anion gap [Moles/Vol] 12 mmol/L Normal 7-17 [facility] Comment on above: Performed By: #### M GO, CHM7, HFP #### U [facility] (DEFAULT) [address] [place] [address] Calcium [Mass/Vol] 8.5 mg/dL Low 8.6-10.5 [facility] Comment on above: Performed By: #### LYN MALONEY, HFP #### U [facility] (DEFAULT) [address] [place] [address] Chloride [Moles/Vol] 103 mmol/L Normal 98-[address] [facility] Comment on above: Performed By: #### LYN MALONEY, HFP #### [place] [facility] (DEFAULT) [address] [place] [address] CO2 [Moles/Vol] 26 mmol/L Normal 21-31 [facility] Comment on above: Performed By: #### LYN MALONEY, HFP #### [place] [facility] (DEFAULT) [address] [place] [address] Creatinine [Mass/Vol] 1.15 mg/dL Normal 0.50-1.20 [facility] Comment on above: Performed By: #### LYN MALONEY, HFP #### [place] [facility] (DEFAULT) [address] [place] [address] GFR/1.73 sq M.predicted among non-blacks MDRD (S/P/Bld) [Vol rate/Area] 49 mL/min/{1.73_m2} Low >=[address] [facility] Comment on above: Result Comment: Repo rted eGFR is based on the CKD-EPI 2020 equation using creatinine, age, and sex. Performed By: #### LYN MALONEY, HFP #### U [facility] (DEFAULT) [address] [place] [address] Glucose [Mass/Vol] 221 mg/dL High 70-99 [facility] Comment on above: Performed By: #### LYN MALONEY, HFP #### U [facility] (DEFAULT) [address] [place] [address] Osmolality [Osmolality] 295 mosm/kg Normal 278-[address] [facility] Comment on above: Performed By: #### LYN MALONEY, HFP #### [facility] (DEFAULT) [address] [place] [address] Potassium [Moles/Vol] 4.0 mmol/L Normal 3.5-5.0 [facility] Comment on above: Performed By: #### SILVIA MALONEY7, HFP #### [facility] (DEFAULT) [address] [place] [address] Sodium [Moles/Vol] 137 mmol/L Normal 135-145 [facility] Comment on above: Performed By: #### LYN MALONEY, HFP #### [facility] (DEFAULT) [address] [place] [address]1045 Urea nitrogen [Mass/Vol] 14 mg/dL Normal 7-[address] [facility] Comment on above: Performed By: #### LYN MALONEY, HFP #### [facility] (DEFAULT) [address] [place] [address] Urea nitrogen/Creatinine [Mass ratio] 12 mg/mg Normal [facility] Comment on above: Performed By: #### LYN MALONEY, HFP #### [facility] (DEFAULT) [address] [place] [address] CBC,PLATELETSon 01-28-2024 Erythrocyte distribution width (RBC) [Ratio] 12.8 % 10.8 - 14.9 % [facility] Hematocrit (Bld) [Volume fraction] 31.7 % Low 34.9 - 44.3 % [facility] Hemoglobin (Bld) [Mass/Vol] 10.0 g/dL Low 11.4 - 15.2 g/dL [facility] Interpretation and review of laboratory results Abnormal [facility] MCH (RBC) [Entitic mass] 28.2 pg 25.9 - 33.9 pg [facility] MCHC (RBC) [Mass/Vol] 31.5 g/dL 31.4 - 35.9 g/dL [facility] MCV (RBC) [Entitic vol] 89.3 fL 79.6 - 97.7 fL [facility] Platelet mean volume (Bld) [Entitic vol] 10.5 fL 8.5 - 12.2 fL [facility] Platelets (Bld) [#/Vol] 362 10*3/uL 150 - 393 K/uL [facility] RBC (Bld) [#/Vol] 3.55 10*6/uL Low [facility] WBC (Bld) [#/Vol] 7.66 10*3/uL 3.99 - 11. 19 K/uL [facility] Hematocrit (Bld) [Volume fraction] 31.7 % Low 34.9-44.[address] [facility] Comment on above: Performed By: #### José 7C, MGO #### [facility] (DEFAULT) [address] [address] Hemoglobin (Bld) [Mass/Vol] 10.0 g/dL Low 11.4-15.[address] [facility] Comment on above: Performed By: #### José 7C, MGO #### [facility] (DEFAULT) [address] [address] MCV (RBC) [Entitic vol] 89.3 fL Normal 79.6-97.[address] [facility] Comment on above: Performed By: #### C 7C, MGO #### [facility] (DEFAULT) [address] [place] [address] Mean Cell Hgb 28.2 pg Normal 25.9-33.[address] [facility] Comment on above: Performed By: #### C 7C, MGO #### [facility] (DEFAULT) [address] [place] [address]641 Mean Cell Hgb Conc 31.5 g/dL Normal 31.4-35.9 [facility] Comment on above: Performed By: #### C 7C, MGO #### [facility] (DEFAULT) [address] [place] [address] Platelet mean volume (Bld) [Entitic vol] 10.5 fL Normal 8.5-12.[address] [facility] Comment on above: Performed By: #### José Quiñones, MGO #### [facility] (DEFAULT) [address] [place] [address] Platelets (Bld) [#/Vol] 362 10*3/uL Normal 150-[address] [facility] Comment on above: Performed By: #### José 7C, MGO #### [facility] (DEFAULT) [address] [place] [address] RBC (Bld) [#/Vol] 3.55 10*6/uL Low 3.91-5.[address] [facility] Comment on above: Performed By: #### José 7C, MGO #### [facility] (DEFAULT) [address] [place] [address]96 RBC Distribution 12.8 % Normal 10.8-14.9 [facility] Comment on above: Performed By: #### José Quiñones, MGO #### [facility] (DEFAULT) [address] [place] [address] WBC (Bld) [#/Vol] 7.66 10*3/uL Normal 3.99-11.[address] [facility] Comment on above: Performed By: #### José 7C, MGO #### [facility] (DEFAULT) [address] [place] [address]473 GLUCOSE POCon 01-28-2024 Glucose [Mass/Vol] 234 mg/dL High 70 - 99 mg/dL [facility] Interpretation and review of laboratory results Abnormal [facility] POC Sample Type CAPBL [facility] Glucose [Mass/Vol] 193 mg/dL High 70 - 99 mg/dL [facility] Glucose [Mass/Vol] 185 mg/dL High 70 - 99 mg/dL [facility] Glucose [Mass/Vol] 195 mg/dL High 70 - 99 mg/dL [facility] Interpretation and review of laboratory results Abnormal [facility] Glucose [Mass/Vol] 202 mg/dL High 70 - 99 mg/dL [facility] Glucose [Mass/Vol] 258 mg/dL High 70 - 99 mg/dL [facility] MAGNESIUMon 01-28-2024 Interpretation and review of laboratory results Normal [facility] Magnesium [Mass/Vol] 1.9 mg/dL 1.6 - 2 .6 mg/dL [facility] Magnesium [Mass/Vol] 1.9 mg/dL Normal 1.6-2.[address] [facility] Comment on above: Performed By: #### M GIOVANNI, M7, HFP #### [facility] (DEFAULT) [address] [place] [address] No Panel Informationon 01-27 Interpretation and review of laboratory results Abnormal [facility] POC Sample Type [facility] Interpretation and review of laboratory results Abnormal [facility] POC Sample Type [facility] BASIC METABOLIC PANELon 01-13 Anion gap [Moles/Vol] 9 mmol/L 7 - 17 mmol/L [facility] Calcium [Mass/Vol] 8.3 mg/dL Low 8.6 - 10. 5 mg/dL [facility] Chloride [Moles/Vol] 105 mmol/L 98 - 10 8 mmol/L [facility] CO2 [Moles/Vol] 28 mmol/L 21 - 31 mmol/L [facility] Creatinine [Mass/Vol] 1.03 mg/dL 0.50 - 1.20 mg/dL [facility] eGFR, CKD-EPI, Female 56 Low - PINF [facility] Glucose [Mass/Vol] 143 mg/dL High 70 - 99 mg/dL [facility] Osmolality Calc [Osmolality] 291 [facility] Potassium [Moles/Vol] 3.9 mmol/L 3.5 - 5.0 mmol/L [facility] Sodium [Moles/Vol] 138 mmol/L 135 - 145 mmol/L [facility] Urea nitrogen [Mass/Vol] 12 mg/dL 7 - 25 mg/dL [facility] Urea nitrogen/Creatinine [Mass ratio] 12 mg/mg [facility] Anion gap [Moles/Vol] 9 mmol/L Normal 7-17 [facility] Comment on above: Performed By: #### T YPEC #### [facility] (DEFAULT) [address] [address] Calcium [Mass/Vol] 8.3 mg/dL Low 8.6-10.5 [facility] Comment on above: Performed By: #### T YPEC #### [facility] (DEFAULT) [address] [address] Chloride [Moles/Vol] 105 mmol/L Normal 98-[address] [facility] Comment on above: Performed By: #### T YPEC #### [facility] (DEFAULT) [address] [place] [address]752 CO2 [Moles/Vol] 28 mmol/L Normal 21-31 [facility] Comment on above: Performed By: #### T YPEC #### [facility] (DEFAULT) [address] [address] Creatinine [Mass/Vol] 1.03 mg/dL Normal 0.50-1.20 [facility] Comment on above: Performed By: #### T YPEC #### [facility] (DEFAULT) [address] [address] GFR/1.73 sq M.predicted among non-blacks MDRD (S/P/Bld) [Vol rate/Area] 56 mL/min/{1.73_m2} Low >=[address] [facility] Comment on above: Result Comment: Repo rted eGFR is based on the CKD-EPI 2021 equation using creatinine, age, and sex. Performed By: #### T YPEC #### U [facility] (DEFAULT) [address] [place] [address] Glucose [Mass/Vol] 143 mg/dL High 70-99 [facility] Comment on above: Performed By: #### T YPEC #### U [facility] (DEFAULT) [address] [place] [address]697 Osmolality [Osmolality] 291 mosm/kg Normal 278-[address] [facility] Comment on above: Performed By: #### T YPEC #### U [facility] (DEFAULT) [address] [place] [address] Potassium [Moles/Vol] 3.9 mmol/L Normal 3.5-5.0 [facility] Comment on above: Performed By: #### T YPEC #### U [facility] (DEFAULT) [address] [place] [address]16 Sodium [Moles/Vol] 138 mmol/L Normal 135-145 [facility] Comment on above: Performed By: #### T YPEC #### U [facility] (DEFAULT) [address] [place] [address] 89445 Urea nitrogen [Mass/Vol] 12 mg/dL Normal 7-[address] [facility] Comment on above: Performed By: #### T YPEC #### U [facility] (DEFAULT) [address] [place] [address]07 Urea nitrogen/Creatinine [Mass ratio] 12 mg/mg Normal [facility] Comment on above: Performed By: #### T YPEC #### U [facility] (DEFAULT) [address] [place] [address] 17151 GLUCOSE POCon 01-27-2024 Glucose [Mass/Vol] 129 mg/dL High 70 - 99 mg/dL [facility] Glucose [Mass/Vol] 149 mg/dL High 70 - 99 mg/dL [facility] Glucose [Mass/Vol] 174 mg/dL High 70 - 99 mg/dL [facility] Interpretation and review of laboratory results Abnormal [facility] POC Sample Type CAPBL [facility] Glucose [Mass/Vol] 206 mg/dL High 70 - 99 mg/dL [facility] Interpretation and review of laboratory results Abnormal [facility] POC Sample Type CAPBL [facility] MAGNESIUMon 01-27-2024 Magnesium [Mass/Vol] 1.5 mg/dL Low 1.6 - 2 .6 mg/dL [facility] Magnesium [Mass/Vol] 1.5 mg/dL Low 1.6-2.[address] [facility] Comment on above: Performed By: #### T YPEC #### [facility] (DEFAULT) [address] [place] [address] No Panel Informationon 01-26 Interpretation and review of laboratory results Abnormal [facility] POC Sample Type CAPBL [facility] Interpretation and review of laboratory results Abnormal [facility] BASIC METABOLIC PANELOrdered By: Tessie Trevizo on 01-26-2024 Anion gap [Moles/Vol] 12 mmol/L 7 - 17 mmol/L [facility] Calcium [Mass/Vol] 8.3 mg/dL Low 8.6 - 10. 5 mg/dL [facility] Chloride [Moles/Vol] 103 mmol/L 98 - 10 8 mmol/L [facility] CO2 [Moles/Vol] 24 mmol/L 21 - 31 mmol/L [facility] Creatinine [Mass/Vol] 1.11 mg/dL 0.50 - 1.20 mg/dL [facility] eGFR, CKD-EPI, Female 52 Low - PINF [facility] Glucose [Mass/Vol] 222 mg/dL High 70 - 99 mg/dL [facility] Interpretation and review of laboratory results Abnormal [facility] Osmolality Calc [Osmolality] 293 [facility] Potassium [Moles/Vol] 4.1 mmol/L 3.5 - 5.0 mmol/L [facility] Sodium [Moles/Vol] 135 mmol/L 135 - 145 mmol/L [facility] Urea nitrogen [Mass/Vol] 16 mg/dL 7 - 25 mg/dL [facility] Urea nitrogen/Creatinine [Mass ratio] 14 mg/mg [facility] CBC,PLATELETSon 01-26-2024 Hematocrit (Bld) [Volume fraction] 29.3 % Low 34.9-44.[address] [facility] Comment on above: Performed By: #### T YPEC #### [facility] (DEFAULT) [address] [address] Hemoglobin (Bld) [Mass/Vol] 9.3 g/dL Low 11.4-15.[address] [facility] Comment on above: Performed By: #### T YPEC #### [facility] (DEFAULT) [address] [address] MCV (RBC) [Entitic vol] 88.3 fL Normal 79.6-97.[address] [facility] Comment on above: Performed By: #### T YPEC #### [facility] (DEFAULT) [address] [address] Mean Cell Hgb 28.0 pg Normal 25.9-33.[address] [facility] Comment on above: Performed By: #### T YPEC #### [facility] (DEFAULT) [address] [address] Mean Cell Hgb Conc 31.7 g/dL Normal 31.4-35.9 [facility] Comment on above: Performed By: #### T YPEC #### [facility] (DEFAULT) [address] [address] Platelet mean volume (Bld) [Entitic vol] 11.1 fL Normal 8.5-12.[address] [facility] Comment on above: Performed By: #### T YPEC #### [facility] (DEFAULT) [address] [place] [address] Platelets (Bld) [#/Vol] 297 10*3/uL Normal 150-[address] [facility] Comment on above: Performed By: #### T YPEC #### [facility] (DEFAULT) [address] [place] [address] RBC (Bld) [#/Vol] 3.32 10*6/uL Low 3.91-5.[address] [facility] Comment on above: Performed By: #### T YPEC #### [facility] (DEFAULT) [address] [place] [address] RBC Distribution 12.9 % Normal 10.8-14.9 [facility] Comment on above: Performed By: #### T YPEC #### [facility] (DEFAULT) [address] [place] [address] WBC (Bld) [#/Vol] 6.83 10*3/uL Normal 3.99-11.[address] [facility] Comment on above: Performed By: #### T YPEC #### [facility] (DEFAULT) [address] [place] [address]69 Erythrocyte distribution width (RBC) [Ratio] 12.9 % 10.8 - 14.9 % [facility] Hematocrit (Bld) [Volume fraction] 29.3 % Low 34.9 - 44.3 % [facility] Hemoglobin (Bld) [Mass/Vol] 9.3 g/dL Low 11.4 - 15.2 g/dL [facility] Interpretation and review of laboratory results Abnormal [facility] MCH (RBC) [Entitic mass] 28.0 pg 25.9 - 33.9 pg [facility] MCHC (RBC) [Mass/Vol] 31.7 g/dL 31.4 - 35.9 g/dL [facility] MCV (RBC) [Entitic vol] 88.3 fL 79.6 - 97.7 fL [facility] Platelet mean volume (Bld) [Entitic vol] 11.1 fL 8.5 - 12.2 fL [facility] Platelets (Bld) [#/Vol] 297 10*3/uL 150 - 393 K/uL [facility] RBC (Bld) [#/Vol] 3.32 10*6/uL Low [facility] WBC (Bld) [#/Vol] 6.83 10*3/uL 3.99 - 11. 19 K/uL [facility] GLUCOSE POCon 01-26-2024 Glucose [Mass/Vol] 178 mg/dL High 70 - 99 mg/dL [facility] Interpretation and review of laboratory results Abnormal [facility] POC Sample Type CAPBL [facility] Glucose [Mass/Vol] 203 mg/dL High 70 - 99 mg/dL [facility] Interpretation and review of laboratory results Abnormal [facility] POC Sample Type CAPBL [facility] MAGNESIUMon 01-26-2024 Interpretation and review of laboratory results Normal [facility] Magnesium [Mass/Vol] 1.6 mg/dL 1.6 - 2 .6 mg/dL [facility] No Panel InformationOrdered By: Tessie Trevizo on 01-26-2024 [facility] XR ABDOMEN 1 VIEW PORTABLEon 01-26-2024 XR ABDOMEN 1 VIEW PORTABLE EXAM: XR ABDOMEN 1 VIEW PORTABLE, 01/26/2024 05:51 AM COMPARISON: Abdominal radiograph from January 25, 2024. CLINICAL INDICATIONS: serial exams, s/p laporotomy FINDINGS: Tubes: Drainage catheter in the pelvis. Leonard catheter in the bladder. Bowel gas pattern: Stable dilation most of the small bowel keeping with ileus. Colon is normal in caliber. No visible free air. Abnormal calcifications/Radiopaciti es: None. Bones: No acute abnormality. Sigmoid curvature of the thoracolumbar spine. Partially imaged right femoral fixation hardware. Other findings: None. IMPRESSION: Persistent ileus. Normal [facility] XR Abdomen Single viewon RADIOLOGY RADIOLOGY [facility] Radiology Study observation (narrative) [facility] XR Abdomen Single viewOrdere d By: Nichole Burnett on 01-26-2024 [facility] Work Phone: BASIC METABOLIC PANELon 01-13 Anion gap [Moles/Vol] 12 mmol/L Normal 7-17 [facility] Comment on above: Performed By: #### SILVIA MALONEY7, HFP #### [facility] (DEFAULT) [address] [place] [address] Calcium [Mass/Vol] 8.3 mg/dL Low 8.6-10.5 [facility] Comment on above: Performed By: #### LYN MALONEY, HFP #### [facility] (DEFAULT) [address] [place] [address] Chloride [Moles/Vol] 103 mmol/L Normal 98-[address] [facility] Comment on above: Performed By: #### SILVIA MALONEY7, HFP #### [facility] (DEFAULT) [address] [place] [address] CO2 [Moles/Vol] 24 mmol/L Normal 21-31 [facility] Comment on above: Performed By: #### LYN MALONEY, HFP #### [facility] (DEFAULT) [address] [place] [address] Creatinine [Mass/Vol] 1.11 mg/dL Normal 0.50-1.20 [facility] Comment on above: Performed By: #### SILVIA MALONEY7, HFP #### [facility] (DEFAULT) [address] [place] [address] GFR/1.73 sq M.predicted among non-blacks MDRD (S/P/Bld) [Vol rate/Area] 52 mL/min/{1.73_m2} Low >=[address] [facility] Comment on above: Result Comment: Repo rted eGFR is based on the CKD-EPI 2020 equation using creatinine, age, and sex. Performed By: #### LYN MALONEY, HFP #### [facility] (DEFAULT) [address] [place] [address] 38621 Glucose [Mass/Vol] 222 mg/dL High 70-99 [facility] Comment on above: Performed By: #### LYN MALONEY, HFP #### [facility] (DEFAULT) [address] [place] [address] 73166 Osmolality [Osmolality] 293 mosm/kg Normal 278-[address] [facility] Comment on above: Performed By: #### LYN MALONEY, HFP #### [facility] (DEFAULT) [address] [place] [address] 08650 Potassium [Moles/Vol] 4.1 mmol/L Normal 3.5-5.0 [facility] Comment on above: Performed By: #### LYN MALONEY, HFP #### [facility] (DEFAULT) [address] [place] [address] 66517 Sodium [Moles/Vol] 135 mmol/L Normal 135-145 [facility] Comment on above: Performed By: #### LYN MALONEY, HFP #### [facility] (DEFAULT) [address] [place] [address] 94963 Urea nitrogen [Mass/Vol] 16 mg/dL Normal 7-[address] [facility] Comment on above: Performed By: #### LYN MALONEY, HFP #### [facility] (DEFAULT) [address] [place] [address] 56608 Urea nitrogen/Creatinine [Mass ratio] 14 mg/mg Normal [facility] Comment on above: Performed By: #### LYN MALONEY, HFP #### [facility] (DEFAULT) [address] [place] [address] 99061 Anion gap [Moles/Vol] 12 mmol/L 7 - 17 mmol/L [facility] Calcium [Mass/Vol] 8.6 mg/dL 8.6 - 10. 5 mg/dL [facility] Chloride [Moles/Vol] 100 mmol/L 98 - 10 8 mmol/L [facility] CO2 [Moles/Vol] 25 mmol/L 21 - 31 mmol/L [facility] Creatinine [Mass/Vol] 1.11 mg/dL 0.50 - 1.20 mg/dL [facility] eGFR, CKD-EPI, Female 52 Low - PINF [facility] Glucose [Mass/Vol] 177 mg/dL High 70 - 99 mg/dL [facility] Interpretation and review of laboratory results Abnormal [facility] Osmolality Calc [Osmolality] 288 [facility] Potassium [Moles/Vol] 4.4 mmol/L 3.5 - 5.0 mmol/L [facility] Sodium [Moles/Vol] 133 mmol/L Low 135 - 145 mmol/L [facility] Urea nitrogen [Mass/Vol] 19 mg/dL 7 - 25 mg/dL [facility] Urea nitrogen/Creatinine [Mass ratio] 17 mg/mg [facility] Anion gap [Moles/Vol] 12 mmol/L Normal 7-17 [facility] Comment on above: Performed By: #### S URGP #### [facility] (DEFAULT) [address] [place] [address] Calcium [Mass/Vol] 8.6 mg/dL Normal 8.6-10.5 [facility] Comment on above: Performed By: #### S URGP #### [facility] (DEFAULT) [address] [place] [address] Chloride [Moles/Vol] 100 mmol/L Normal 98-[address] [facility] Comment on above: Performed By: #### S URGP #### [facility] (DEFAULT) [address] [place] [address] CO2 [Moles/Vol] 25 mmol/L Normal 21-31 [facility] Comment on above: Performed By: #### S URGP #### [facility] (DEFAULT) [address] [place] [address] 35236 Creatinine [Mass/Vol] 1.11 mg/dL Normal 0.50-1.20 [facility] Comment on above: Performed By: #### S URGP #### [facility] (DEFAULT) [address] [place] [address] 26794 GFR/1.73 sq M.predicted among non-blacks MDRD (S/P/Bld) [Vol rate/Area] 52 mL/min/{1.73_m2} Low >=[address] [facility] Comment on above: Result Comment: Repo rted eGFR is based on the CKD-EPI 2020 equation using creatinine, age, and sex. Performed By: #### S URGP #### [facility] (DEFAULT) [address] [address] Glucose [Mass/Vol] 177 mg/dL High 70-99 [facility] Comment on above: Performed By: #### S URGP #### [facility] (DEFAULT) [address] [address] Osmolality [Osmolality] 288 mosm/kg Normal 278-[address] [facility] Comment on above: Performed By: #### S URGP #### [facility] (DEFAULT) [address] [address] Potassium [Moles/Vol] 4.4 mmol/L Normal 3.5-5.0 [facility] Comment on above: Performed By: #### S URGP #### [facility] (DEFAULT) [address] [address] Sodium [Moles/Vol] 133 mmol/L Low 135-145 [facility] Comment on above: Performed By: #### S URGP #### [facility] (DEFAULT) [address] [place] [address] 47749 Urea nitrogen [Mass/Vol] 19 mg/dL Normal 7-[address] [facility] Comment on above: Performed By: #### S URGP #### [facility] (DEFAULT) [address] [place] [address] 39609 Urea nitrogen/Creatinine [Mass ratio] 17 mg/mg Normal [facility] Comment on above: Performed By: #### S URGP #### [facility] (DEFAULT) [address] [place] [address] GLUCOSE POCon 01-25-2024 Glucose [Mass/Vol] 361 mg/dL High 70 - 99 mg/dL [facility] Interpretation and review of laboratory results Abnormal [facility] POC Sample Type CAPBL [facility] Glucose [Mass/Vol] 182 mg/dL High 70 - 99 mg/dL [facility] Glucose [Mass/Vol] 213 mg/dL High 70 - 99 mg/dL [facility] Glucose [Mass/Vol] 204 mg/dL High 70 - 99 mg/dL [facility] Glucose [Mass/Vol] 222 mg/dL High 70 - 99 mg/dL [facility] Glucose [Mass/Vol] 219 mg/dL High 70 - 99 mg/dL [facility] MAGNESIUMon 01-25-2024 Magnesium [Mass/Vol] 1.6 mg/dL Normal 1.6-2.[address] [facility] Comment on above: Performed By: #### M GIOVANNI, CHM7, HFP #### [facility] (DEFAULT) [address] [place] [address] Interpretation and review of laboratory results Normal [facility] Magnesium [Mass/Vol] 1.7 mg/dL 1.6 - 2 .6 mg/dL [facility] Magnesium [Mass/Vol] 1.7 mg/dL Normal 1.6-2.[address] [facility] Comment on above: Performed By: #### S URGP #### [facility] (DEFAULT) [address] [place] [address]20[address] No Panel Informationon 01-24 Interpretation and review of laboratory results Abnormal [facility] POC Sample Type CAPBL [facility] ABD[facility]EN 1 VIEW PORTABLEon 01-25-2024 XR ABDOMEN 1 VIEW PORTABLE EXAM: XR ABDOMEN 1 VIEW PORTABLE, 01/25/2024 08:09 AM COMPARISON: Compared to prior study dated January 24, 2024 CLINICAL INDICATIONS: serial exams, ileus, s/p SBO w/ laparotomy and necrotic bowel removal FINDINGS/IMPRESSION: Tubes: A Leonard catheter is noted. Bowel gas pattern: Persistent gaseous dilatation of multiple loops of small bowel appear slightly increase in the right hemiabdomen since prior exam. No visible free air. Left-sided skin paula are noted. Partially imaged right femoral fixation hardware. Normal [facility] XR Abdomen Single viewon RADIOLOGY RADIOLOGY [facility] Radiology Study observation (narrative) [facility] XR Abdomen Single viewOrdere d By: Kalen Mayberry on 01-25-2024 [facility] Work Phone: BASIC METABOLIC PANELon 01-13 Anion gap [Moles/Vol] 16 mmol/L 7 - 17 mmol/L [facility] Calcium [Mass/Vol] 8.7 mg/dL 8.6 - 10. 5 mg/dL [facility] Chloride [Moles/Vol] 97 mmol/L Low 98 - 10 8 mmol/L [facility] CO2 [Moles/Vol] 23 mmol/L 21 - 31 mmol/L [facility] Creatinine [Mass/Vol] 1.24 mg/dL High 0.50 - 1.20 mg/dL [facility] eGFR, CKD-EPI, Female 45 Low - PINF [facility] Glucose [Mass/Vol] 122 mg/dL High 70 - 99 mg/dL [facility] Interpretation and review of laboratory results Abnormal [facility] Osmolality Calc [Osmolality] 283 [facility] Potassium [Moles/Vol] 4.8 mmol/L 3.5 - 5.0 mmol/L [facility] Sodium [Moles/Vol] 131 mmol/L Low 135 - 145 mmol/L [facility] Urea nitrogen [Mass/Vol] 23 mg/dL 7 - 25 mg/dL [facility] Urea nitrogen/Creatinine [Mass ratio] 19 mg/mg [facility] Anion gap [Moles/Vol] 16 mmol/L Normal 7-17 [facility] Comment on above: Performed By: #### José 7C, MGO #### [facility] (DEFAULT) [address] [place] [address]45 Calcium [Mass/Vol] 8.7 mg/dL Normal 8.6-10.5 [facility] Comment on above: Performed By: #### José 7C, MGO #### [facility] (DEFAULT) [address] [place] [address] 77581 Chloride [Moles/Vol] 97 mmol/L Low 98-[address] [facility] Comment on above: Performed By: #### José 7C, MGO #### [facility] (DEFAULT) [address] [place] [address] 57040 CO2 [Moles/Vol] 23 mmol/L Normal 21-31 [facility] Comment on above: Performed By: #### José 7C, MGO #### [facility] (DEFAULT) [address] [place] [address] 38687 Creatinine [Mass/Vol] 1.24 mg/dL High 0.50-1.20 [facility] Comment on above: Performed By: #### José 7C, MGO #### [facility] (DEFAULT) [address] [place] [address] 06764 GFR/1.73 sq M.predicted among non-blacks MDRD (S/P/Bld) [Vol rate/Area] 45 mL/min/{1.73_m2} Low >=[address] [facility] Comment on above: Result Comment: Repo rted eGFR is based on the CKD-EPI 2020 equation using creatinine, age, and sex. Performed By: #### José 7C, MGO #### [facility] (DEFAULT) [address] [place] [address] 11649 Glucose [Mass/Vol] 122 mg/dL High 70-99 [facility] Comment on above: Performed By: #### José 7C, MGO #### [facility] (DEFAULT) [address] [place] [address] 39197 Osmolality [Osmolality] 283 mosm/kg Normal 278-[address] [facility] Comment on above: Performed By: #### José 7C, MGO #### [facility] (DEFAULT) [address] [place] [address] 54649 Potassium [Moles/Vol] 4.8 mmol/L Normal 3.5-5.0 [facility] Comment on above: Performed By: #### José 7C, MGO #### [facility] (DEFAULT) [address] [place] [address] 93351 Sodium [Moles/Vol] 131 mmol/L Low 135-145 [facility] Comment on above: Performed By: #### José 7C, MGO #### [facility] (DEFAULT) [address] [place] [address] 61548 Urea nitrogen [Mass/Vol] 23 mg/dL Normal 7-[address] [facility] Comment on above: Performed By: #### José 7C, MGO #### [facility] (DEFAULT) [address] [place] [address] 93563 Urea nitrogen/Creatinine [Mass ratio] 19 mg/mg Normal [facility] Comment on above: Performed By: #### José 7C, MGO #### [facility] (DEFAULT) [address] [place] [address] 12222 CBC,PLATELETSon 01-24-2024 Erythrocyte distribution width (RBC) [Ratio] 13.0 % 10.8 - 14.9 % [facility] Hematocrit (Bld) [Volume fraction] 31.8 % Low 34.9 - 44.3 % [facility] Hemoglobin (Bld) [Mass/Vol] 10.0 g/dL Low 11.4 - 15.2 g/dL [facility] Interpretation and review of laboratory results Abnormal [facility] MCH (RBC) [Entitic mass] 27.7 pg 25.9 - 33.9 pg [facility] MCHC (RBC) [Mass/Vol] 31.4 g/dL 31.4 - 35.9 g/dL [facility] MCV (RBC) [Entitic vol] 88.1 fL 79.6 - 97.7 fL [facility] Platelet mean volume (Bld) [Entitic vol] 11.3 fL 8.5 - 12.2 fL [facility] Platelets (Bld) [#/Vol] 263 10*3/uL 150 - 393 K/uL [facility] RBC (Bld) [#/Vol] 3.61 10*6/uL Low [facility] WBC (Bld) [#/Vol] 10.65 10*3/uL 3.99 - 11 .19 K/uL [facility] Hematocrit (Bld) [Volume fraction] 31.8 % Low 34.9-44.[address] [facility] Comment on above: Performed By: #### LYN MALONEY, HFP #### [facility] (DEFAULT) [address] [address] Hemoglobin (Bld) [Mass/Vol] 10.0 g/dL Low 11.4-15.[address] [facility] Comment on above: Performed By: #### LYN MALONEY, HFP #### [facility] (DEFAULT) [address] [address] MCV (RBC) [Entitic vol] 88.1 fL Normal 79.6-97.[address] [facility] Comment on above: Performed By: #### LYN MALONEY, HFP #### [facility] (DEFAULT) [address] [place] [address] 34005 Mean Cell Hgb 27.7 pg Normal 25.9-33.[address] [facility] Comment on above: Performed By: #### LYN MALONEY, HFP #### [place] [facility] (DEFAULT) [address] [place] [address] 82819 Mean Cell Hgb Conc 31.4 g/dL Normal 31.4-35.9 [facility] Comment on above: Performed By: #### LYN MALONEY, HFP #### [place] [facility] (DEFAULT) [address] [place] [address] 41593 Platelet mean volume (Bld) [Entitic vol] 11.3 fL Normal 8.5-12.[address] [facility] Comment on above: Performed By: #### LYN MALONEY, HFP #### [facility] (DEFAULT) [address] [place] [address] 88266 Platelets (Bld) [#/Vol] 263 10*3/uL Normal 150-[address] [facility] Comment on above: Performed By: #### LYN MALONEY, HFP #### [facility] (DEFAULT) [address] [place] [address] 41654 RBC (Bld) [#/Vol] 3.61 10*6/uL Low 3.91-5.[address] [facility] Comment on above: Performed By: #### LYN MALONEY, HFP #### [facility] (DEFAULT) [address] [place] [address] 94323 RBC Distribution 13.0 % Normal 10.8-14.9 [facility] Comment on above: Performed By: #### LYN MALONEY, HFP #### [facility] (DEFAULT) [address] [place] [address] 57331 WBC (Bld) [#/Vol] 10.65 10*3/uL Normal 3.99-11.[address] [facility] Comment on above: Performed By: #### LYN MALONEY, HFP #### [facility] (DEFAULT) [address] [place] [address] GLUCOSE POCon 01-24-2024 Glucose [Mass/Vol] 108 mg/dL High 70 - 99 mg/dL [facility] Interpretation and review of laboratory results Abnormal [facility] Glucose [Mass/Vol] 103 mg/dL High 70 - 99 mg/dL [facility] Interpretation and review of laboratory results Abnormal [facility] POC Sample Type CAPBL [facility] Glucose [Mass/Vol] 117 mg/dL High 70 - 99 mg/dL [facility] Interpretation and review of laboratory results Abnormal [facility] POC Sample Type CAPBL [facility] Glucose [Mass/Vol] 112 mg/dL High 70 - 99 mg/dL [facility] Interpretation and review of laboratory results Abnormal [facility] POC Sample Type CAPBL [facility] MAGNESIUMon 01-24-2024 Interpretation and review of laboratory results Normal [facility] Magnesium [Mass/Vol] 2.0 mg/dL 1.6 - 2 .6 mg/dL [facility] Magnesium [Mass/Vol] 2.0 mg/dL Normal 1.6-2.[address] [facility] Comment on above: Performed By: #### C 7C, MGO #### [facility] (DEFAULT) [address] [place] [address] XR ABDOMEN 1 VIEWon 01-24-20 24 XR ABDOMEN 1 VIEW EXAM: XR ABDOMEN 1 V IEW, 01/24/2024 08:59 AM COMPARISON: Abdominal radiograph January 21, 2024. CLINICAL INDICATIONS: POD2 small bowel resection; assess for post-op ileus FINDINGS: Tubes: Gastric tube tip terminates in the expected region of the mid stomach. Surgical drain terminates in the left lower quadrant. Leonard catheter in place. Bowel gas pattern: Dilated small bowel in the upper abdomen and left hemiabdomen. Scattered gas within nondilated colon. No visible free air. Abnormal calcifications/Radiopaciti es: None. Bones: Partially visualized right femoral hardware. Similar dextrocurvature of the thoracolumbar spine with multilevel degenerative changes. Other findings: None. IMPRESSION: Dilated small bowel loops which could indicate obstruction versus ileus. Normal [facility] XR Abdomen Single viewon RADIOLOGY RADIOLOGY [facility] Radiology Study observation (narrative) [facility] XR Abdomen Single viewOrdere d By: Charlie Olivera on 01-24-2024 [facility] BASIC METABOLIC PANELon 01-13 Anion gap [Moles/Vol] 10 mmol/L 7 - 17 mmol/L [facility] Calcium [Mass/Vol] 6.2 mg/dL Low 8.6 - 10. 5 mg/dL [facility] Chloride [Moles/Vol] 111 mmol/L High 98 - 10 8 mmol/L [facility] CO2 [Moles/Vol] 20 mmol/L Low 21 - 31 mmol/L [facility] Creatinine [Mass/Vol] 0.95 mg/dL 0.50 - 1.20 mg/dL [facility] eGFR, CKD-EPI, Female 62 - PINF [facility] Glucose [Mass/Vol] 105 mg/dL High 70 - 99 mg/dL [facility] Interpretation and review of laboratory results Abnormal [facility] Osmolality Calc [Osmolality] 291 [facility] Potassium [Moles/Vol] 3.4 mmol/L Low 3.5 - 5.0 mmol/L [facility] Sodium [Moles/Vol] 138 mmol/L 135 - 145 mmol/L [facility] Urea nitrogen [Mass/Vol] 20 mg/dL 7 - 25 mg/dL [facility] Urea nitrogen/Creatinine [Mass ratio] 21 mg/mg [facility] Anion gap [Moles/Vol] 10 mmol/L Normal 7-17 [facility] Comment on above: Performed By: #### José 7C, MGO #### [facility] (DEFAULT) [address] [place] [address] 33482 Calcium [Mass/Vol] 6.2 mg/dL Low 8.6-10.5 [facility] Comment on above: Performed By: #### José 7C, MGO #### [facility] (DEFAULT) [address] [place] [address] 67664 Chloride [Moles/Vol] 111 mmol/L High 98-[address] [facility] Comment on above: Performed By: #### José 7C, MGO #### [facility] (DEFAULT) [address] [place] [address] 33876 CO2 [Moles/Vol] 20 mmol/L Low 21-31 [facility] Comment on above: Performed By: #### José 7C, MGO #### [facility] (DEFAULT) [address] [place] [address] 29877 Creatinine [Mass/Vol] 0.95 mg/dL Normal 0.50-1.20 [facility] Comment on above: Performed By: #### José 7C, MGO #### [facility] (DEFAULT) [address] [place] [address] 38790 GFR/1.73 sq M.predicted among non-blacks MDRD (S/P/Bld) [Vol rate/Area] 62 mL/min/{1.73_m2} Normal >=[address] [facility] Comment on above: Result Comment: Repo rted eGFR is based on the CKD-EPI 2020 equation using creatinine, age, and sex. Performed By: #### José 7C, MGO #### [facility] (DEFAULT) [address] [place] [address] 46[address] Glucose [Mass/Vol] 105 mg/dL High 70-99 [facility] Comment on above: Performed By: #### C 7C, MGO #### [facility] (DEFAULT) [address] [place] [address]43 Osmolality [Osmolality] 291 mosm/kg Normal 278-[address] [facility] Comment on above: Performed By: #### C 7C, MGO #### [facility] (DEFAULT) [address] [place] [address] 19964 Potassium [Moles/Vol] 3.4 mmol/L Low 3.5-5.0 [facility] Comment on above: Performed By: #### C 7C, MGO #### [facility] (DEFAULT) [address] [place] [address] 28071 Sodium [Moles/Vol] 138 mmol/L Normal 135-145 [facility] Comment on above: Performed By: #### José 7C, MGO #### [facility] (DEFAULT) [address] [place] [address] 96149 Urea nitrogen [Mass/Vol] 20 mg/dL Normal 7-[address] [facility] Comment on above: Performed By: #### José 7C, MGO #### [facility] (DEFAULT) [address] [place] [address] 33269 Urea nitrogen/Creatinine [Mass ratio] 21 mg/mg Normal [facility] Comment on above: Performed By: #### C 7C, MGO #### [facility] (DEFAULT) [address] [place] [address] 99244 GLUCOSE POCon 01-23-2024 Glucose [Mass/Vol] 117 mg/dL High 70 - 99 mg/dL [facility] Interpretation and review of laboratory results Abnormal [facility] POC Sample Type CAPBL [facility] Glucose [Mass/Vol] 130 mg/dL High 70 - 99 mg/dL [facility] Interpretation and review of laboratory results Abnormal [facility] POC Sample Type [facility] Glucose [Mass/Vol] 119 mg/dL High 70 - 99 mg/dL [facility] Interpretation and review of laboratory results Abnormal [facility] POC Sample Type CAPBL [facility] Glucose [Mass/Vol] 135 mg/dL High 70 - 99 mg/dL [facility] Interpretation and review of laboratory results Abnormal [facility] POC Sample Type CAPBL [facility] MAGNESIUMon 01-23-2024 Interpretation and review of laboratory results Abnormal [facility] Magnesium [Mass/Vol] 1.2 mg/dL Low 1.6 - 2 .6 mg/dL [facility] Magnesium [Mass/Vol] 1.2 mg/dL Low 1.6-2.[address] [facility] Comment on above: Performed By: #### C 7C, MGO #### [facility] (DEFAULT) [address] [place] [address] ABORH TYPE RECONFIRMATIONon 01-22-2024 ABO/RH(D) TYPE Positive [facility] ABO/RH(D) TYPE Positive Normal [facility] Comment on above: Performed By: #### T YPEC #### [facility] (DEFAULT) [address] [address] BASIC METABOLIC PANELon Anion gap [Moles/Vol] 16 mmol/L 7 - 17 mmol/L [facility] Calcium [Mass/Vol] 9.4 mg/dL 8.6 - 10. 5 mg/dL [facility] Chloride [Moles/Vol] 95 mmol/L Low 98 - 10 8 mmol/L [facility] CO2 [Moles/Vol] 26 mmol/L 21 - 31 mmol/L [facility] Creatinine [Mass/Vol] 1.17 mg/dL 0.50 - 1.20 mg/dL [facility] eGFR, CKD-EPI, Female 48 Low - PINF [facility] Glucose [Mass/Vol] 150 mg/dL High 70 - 99 mg/dL [facility] Interpretation and review of laboratory results Abnormal [facility] Osmolality Calc [Osmolality] 287 [facility] Potassium [Moles/Vol] 3.8 mmol/L 3.5 - 5.0 mmol/L [facility] Sodium [Moles/Vol] 133 mmol/L Low 135 - 145 mmol/L [facility] Urea nitrogen [Mass/Vol] 24 mg/dL 7 - 25 mg/dL [facility] Urea nitrogen/Creatinine [Mass ratio] 21 mg/mg [facility] Anion gap [Moles/Vol] 16 mmol/L Normal 7-17 [facility] Comment on above: Performed By: #### YLN MALONEY, HFP #### [facility] (DEFAULT) [address] [place] [address] Calcium [Mass/Vol] 9.4 mg/dL Normal 8.6-10.5 [facility] Comment on above: Performed By: #### LYN MALONEY, HFP #### [facility] (DEFAULT) [address] [place] [address] Chloride [Moles/Vol] 95 mmol/L Low 98-[address] [facility] Comment on above: Performed By: #### LYN MALONEY, HFP #### [facility] (DEFAULT) [address] [place] [address] CO2 [Moles/Vol] 26 mmol/L Normal 21-31 [facility] Comment on above: Performed By: #### LYN MALONEY, HFP #### [facility] (DEFAULT) [address] [place] [address] Creatinine [Mass/Vol] 1.17 mg/dL Normal 0.50-1.20 [facility] Comment on above: Performed By: #### LYN MALONEY, HFP #### [facility] (DEFAULT) [address] [place] [address] GFR/1.73 sq M.predicted among non-blacks MDRD (S/P/Bld) [Vol rate/Area] 48 mL/min/{1.73_m2} Low >=[address] [facility] Comment on above: Result Comment: Repo rted eGFR is based on the CKD-EPI 2020 equation using creatinine, age, and sex. Performed By: #### LYN MALONEY, HFP #### [place] [facility] (DEFAULT) [address] [place] [address] Glucose [Mass/Vol] 150 mg/dL High 70-99 [facility] Comment on above: Performed By: #### LYN MALONEY, HFP #### [place] [facility] (DEFAULT) [address] [place] [address] Osmolality [Osmolality] 287 mosm/kg Normal 278-[address] [facility] Comment on above: Performed By: #### LYN MALONEY, HFP #### [place] [facility] (DEFAULT) [address] [place] [address] Potassium [Moles/Vol] 3.8 mmol/L Normal 3.5-5.0 [facility] Comment on above: Performed By: #### LYN MALONEY, HFP #### [place] [facility] (DEFAULT) [address] [place] [address] Sodium [Moles/Vol] 133 mmol/L Low 135-145 [facility] Comment on above: Performed By: #### LYN MALONEY, HFP #### [place] [facility] (DEFAULT) [address] [place] [address] Urea nitrogen [Mass/Vol] 24 mg/dL Normal 7-[address] [facility] Comment on above: Performed By: #### LYN MALONEY, HFP #### [place] [facility] (DEFAULT) [address] [place] [address] Urea nitrogen/Creatinine [Mass ratio] 21 mg/mg Normal [facility] Comment on above: Performed By: #### M GO, CHM7, HFP #### [facility] (DEFAULT) [address] [place] [address] CARDIAC RHYTHM (SCANNED)on 0 01-22-2024 [facility] CBC,PLATELETSon 01-22-2024 Erythrocyte distribution width (RBC) [Ratio] 13.1 % 10.8 - 14.9 % [facility] Hematocrit (Bld) [Volume fraction] 32.9 % Low 34.9 - 44.3 % [facility] Hemoglobin (Bld) [Mass/Vol] 10.3 g/dL Low 11.4 - 15.2 g/dL [facility] Interpretation and review of laboratory results Abnormal [facility] MCH (RBC) [Entitic mass] 27.6 pg 25.9 - 33.9 pg [facility] MCHC (RBC) [Mass/Vol] 31.3 g/dL Low 31.4 - 35.9 g/dL [facility] MCV (RBC) [Entitic vol] 88.2 fL 79.6 - 97.7 fL [facility] Platelet mean volume (Bld) [Entitic vol] 11.0 fL 8.5 - 12.2 fL [facility] Platelets (Bld) [#/Vol] 256 10*3/uL 150 - 393 K/uL [facility] RBC (Bld) [#/Vol] 3.73 10*6/uL Low [facility] WBC (Bld) [#/Vol] 8.11 10*3/uL 3.99 - 11. 19 K/uL [facility] Hematocrit (Bld) [Volume fraction] 32.9 % Low 34.9-44.[address] [facility] Comment on above: Performed By: #### T YPEC #### [facility] (DEFAULT) [address] [place] [address] Hemoglobin (Bld) [Mass/Vol] 10.3 g/dL Low 11.4-15.[address] [facility] Comment on above: Performed By: #### T YPEC #### U [facility] (DEFAULT) [address] [address] MCV (RBC) [Entitic vol] 88.2 fL Normal 79.6-97.[address] [facility] Comment on above: Performed By: #### T YPEC #### [facility] (DEFAULT) [address] [address] Mean Cell Hgb 27.6 pg Normal 25.9-33.[address] [facility] Comment on above: Performed By: #### T YPEC #### [facility] (DEFAULT) [address] [address] Mean Cell Hgb Conc 31.3 g/dL Low 31.4-35.9 [facility] Comment on above: Performed By: #### T YPEC #### [facility] (DEFAULT) [address] [address] Platelet mean volume (Bld) [Entitic vol] 11.0 fL Normal 8.5-12.[address] [facility] Comment on above: Performed By: #### T YPEC #### [facility] (DEFAULT) [address] [address] Platelets (Bld) [#/Vol] 256 10*3/uL Normal 150-[address] [facility] Comment on above: Performed By: #### T YPEC #### [facility] (DEFAULT) [address] [address] RBC (Bld) [#/Vol] 3.73 10*6/uL Low 3.91-5.[address] [facility] Comment on above: Performed By: #### T YPEC #### [facility] (DEFAULT) [address] [address] RBC Distribution 13.1 % Normal 10.8-14.9 [facility] Comment on above: Performed By: #### T YPEC #### [facility] (DEFAULT) [address] [place] [address] WBC (Bld) [#/Vol] 8.11 10*3/uL Normal 3.99-11.[address] [facility] Comment on above: Performed By: #### T YPEC #### [facility] (DEFAULT) [address] [place] [address] CT ABDOMEN/PELVIS WITH CONTR Monse 01-22-2024 CT ABDOMEN/PELVIS WITH CONTRAST EXAM: CT ABDOMEN/PELVIS WITH CONTRAST, 01/22/2024 01:50 AM COMPARISON: No prior studies available for comparison. CLINICAL INDICATIONS: Concern for SBO TECHNIQUE: CT scanning was performed of the abdomen and pelvis following the administration of intravenous contrast. PROTOCOL: Standard. CONTRAST: iohexol (OMNIPAQUE) 350 MG/ML injection 1-171 mL; Route of Administration: Intravenous; Dose: 90 mL. FINDINGS: Lung Bases: Small bilateral pleural effusions with adjacent atelectasis. Liver: Normal. Gallbladder: Cholecystectomy. Bile Ducts: Mildly dilated, which may be normal for a patient after cholecystectomy. Spleen: Normal. Pancreas: Mildly atrophic. No ductal dilatation. Adrenals: Normal. Kidneys: Bilateral kidneys are mildly atrophic with some cortical scarring, small hypoattenuating lesions are present which are too small adequately characterize but likely represent cysts. No hydronephrosis or stones. Gastrointestinal: NG tube seen with tip in the body of the stomach. There is fluid-filled distention of the stomach and small bowel. The small bowel is dilated up to 4.5 cm and demonstrates mild bowel wall thickening. There is are 2 suspected transition point in the right mid abdomen seen on series 2 image 108 and 109 with decompressed bowel concerning for a closed loop obstruction. Status post appendectomy. The colon is unremarkable. Peritoneum/retroperitoneum : Moderate volume ascites. Lymph nodes: No enlarged or morphologically abnormal lymph nodes. Vasculature: The abdominal aorta is tortuous and demonstrates mild to moderate atherosclerotic disease. Patent celiac and superior mesenteric arteries. Patent portal, splenic, and superior mesenteric veins. Bladder: Normal. Pelvic Organs: Hysterectomy. No adnexal mass. Body Wall: Normal. Bones: Severe dextroscoliosis of the lumbar spine with a stepwise lateral translation of the L2-4 vertebral bodies. There is significant degenerative disease throughout the visualized spine. No acute fractures. Right femoral fixation. No suspicious osseous lesion. IMPRESSION: 1. Small bowel dilation and mild bowel wall thickening with transition points in the right lower quadrant demonstrating interposed decompressed small bowel concerning for a closed loop obstruction. 2. Moderate volume ascites. 3. Small bilateral pleural effusions. 4. Severe dextroscoliosis and degenerative changes of the lumbar spine.. I personally viewed and interpreted these images and I have reviewed and approved this report. Normal [facility] CT Abdomen and Pelvis W cont rast Cherelle 01-22-2024 [facility] (narrative[facility] CT Abdomen and Pelvis W cont rast IVOrdered By: Doron Rodrigez on 01-22-2024 [facility] ENCEPHALOPATHY, AUTOIMMUNE E VALUATION, CSFon 01-22-2024 AMPAR2 IgG Cell binding assay immunofluorescent assay Ql (CSF) Negative Negative [facility] Amphiphysin Ab IF Ql (CSF) Negative Negative [facility] Annotation comment [Interpretation] Narrative None. [facility] Contactin-associated protein 2 IgG Cell binding assay immunofluorescent assay Ql (CSF) Negative Negative [facility] CV2 Ab IF Ql (CSF) Negative Negative [facility] Dipeptidyl aminopeptidase-like protein 6 IgG Cell binding assay immunofluorescent assay Ql (CSF) Negative Negative [facility] GABABR IgG Cell binding assay immunofluorescent assay Ql (CSF) Negative Negative [facility] Glial fibrillary acidic protein alpha subunit IgG IF Ql (CSF) Negative Negative [facility] Glial nuclear type 1 Ab IF Ql (CSF) Negative Negative [facility] Glutamate decarboxylase 65 IgG+IgM IA (CSF) [Moles/Vol] 0.00 nmol/L NINF - 0.02 nmol/L [facility] IgLON5 CBA, CSF Negative Negative [facility] [employer] Operator review Roger (Unsp spec) [Interp] SEE COMMENTS [facility] Leucine-rich glioma-inactivated protein 1 IgG Cell binding assay immunofluorescent assay Ql (CSF) Negative Negative [facility] Metabotropic glutamate receptor 1 IgG IF Ql (CSF) Negative Negative [facility] Neurochondrin IFA, CSF Negative Negative [facility] Neuronal nuclear type 1 Ab IF Ql (CSF) Negative Negative [facility] Neuronal nuclear type 2 Ab IF Ql (CSF) Negative Negative [facility] Neuronal nuclear type 3 Ab IF Ql (CSF) Negative [facility] NIF IFA, CSF Negative Negative [facility] NMDAR subunit 1 IgG Cell binding assay immunofluorescent assay Ql (CSF) Negative Negative [facility] PACKAGE LINER-1 Ab IF Ql (CSF) Negative Negative [facility] PACKAGE LINER-2 Ab IF Ql (CSF) Negative Negative [facility] PACKAGE LINER-Tr Ab IF Ql (CSF) Negative Negative [facility] PDE10A AB IFA, CSF Negative [facility] IFA, CSF Negative Negative [facility] Tripartite Motif-Containing Protein 46 IgG IFA, CSF Negative Negative [facility] GLUCOSE POCon 01-22-2024 Glucose [Mass/Vol] 156 mg/dL High 70 - 99 mg/dL [facility] Interpretation and review of laboratory results Abnormal [facility] POC Sample Type [facility] Glucose [Mass/Vol] 139 mg/dL High 70 - 99 mg/dL [facility] Interpretation and review of laboratory results Abnormal [facility] POC Sample Type [facility] Glucose [Mass/Vol] 156 mg/dL High 70 - 99 mg/dL [facility] Interpretation and review of laboratory results Abnormal [facility] POC Sample Type [facility] Glucose [Mass/Vol] 120 mg/dL High 70 - 99 mg/dL [facility] Interpretation and review of laboratory results Abnormal [facility] POC Sample Type [facility] Glucose [Mass/Vol] 149 mg/dL High 70 - 99 mg/dL [facility] Interpretation and review of laboratory results Abnormal [facility] POC Sample Type CAPBL [facility] Glucose [Mass/Vol] 141 mg/dL High 70 - 99 mg/dL [facility] Interpretation and review of laboratory results Abnormal [facility] POC Sample Type CAPBL [facility] Glucose [Mass/Vol] 152 mg/dL High 70 - 99 mg/dL [facility] Interpretation and review of laboratory results Abnormal [facility] POC [facility] FUNCTION PANELon Albumin [Mass/Vol] 3.4 g/dL Low 3.5 - 5.0 g/dL [facility] ALP [Catalytic activity/Vol] 72 U/L 32 - 126 U/L [facility] ALT [Catalytic activity/Vol] 10 U/L 9 - 48 U/L [facility] AST [Catalytic activity/Vol] 19 U/L 10 - 39 U/L [facility] Bilirubin [Mass/Vol] 0.5 mg/dL NINF - 1.5 mg/dL [facility] Bilirubin.direct [Mass/Vol] 0.1 mg/dL NINF - 0.3 mg/dL [facility] Interpretation and review of laboratory results Abnormal [facility] Protein [Mass/Vol] 6.3 g/dL Low 6.4 - 8.3 g/dL [facility] Albumin [Mass/Vol] 3.4 g/dL Low 3.5-5.0 [facility] Comment on above: Performed By: #### S URGP #### [facility] (DEFAULT) [address] [place] [address] ALP [Catalytic activity/Vol] 72 U/L Normal 32-[address] [facility] Comment on above: Performed By: #### S URGP #### [facility] (DEFAULT) [address] [place] [address] ALT [Catalytic activity/Vol] 10 U/L Normal 9-[address] [facility] Comment on above: Performed By: #### S URGP #### [facility] (DEFAULT) [address] [place] [address] AST [Catalytic activity/Vol] 19 U/L Normal 10-[address] [facility] Comment on above: Performed By: #### S URGP #### [facility] (DEFAULT) [address] [place] [address] Bilirubin [Mass/Vol] 0.5 mg/dL Normal <1.[address] [facility] Comment on above: Performed By: #### S URGP #### [facility] (DEFAULT) [address] [place] [address] Bilirubin.indirect [Mass/Vol] 0.1 mg/dL Normal <0.[address] [facility] Comment on above: Performed By: #### S URGP #### [facility] (DEFAULT) [address] [place] [address] Protein [Mass/Vol] 6.3 g/dL Low 6.4-8.3 [facility] Comment on above: Performed By: #### S URGP #### [facility] (DEFAULT) [address] [place] [address] LACTATE, BLOODOrdered By: Er in Traver on 01-22-2024 Interpretation and review of laboratory results Normal [facility] Lactate [Moles/Vol] 1.4 mmol/L 0.5 - 1. 6 mmol/L [facility] LACTATE, BLOODon 01-22-2024 Lactate, Blood 1.4 mmol/L Normal 0.5-1.[address] [facility] Comment on above: Performed By: #### M GO, CHM7, HFP #### [facility] (DEFAULT) [address] [place] [address] MAGNESIUMon 01-22-2024 Interpretation and review of laboratory results Normal [facility] Magnesium [Mass/Vol] 1.8 mg/dL 1.6 - 2 .6 mg/dL [facility] Magnesium [Mass/Vol] 1.8 mg/dL Normal 1.6-2.[address] [facility] Comment on above: Performed By: #### LYN MALONEY, HFP #### [facility] (DEFAULT) [address] [place] [address] No Panel Informationon 01-21 [facility] PROTIME-INRon 01-22-2024 INR Coag (Bld) [Relative time] 1.0 {INR} 0.9 - 1.1 [facility] Interpretation and review of laboratory results Normal [facility] PT Coag (PPP) [Time] 13.3 s [facility] INR Coag (PPP) [Relative time] 1.0 {INR} Normal 0.9-1.[address] [facility] Comment on above: Performed By: #### LYN MALONEY, HFP #### [facility] (DEFAULT) [address] [place] [address] PT Coag (PPP) [Time] 13.3 s Normal 11.9-14.[address] [facility] Comment on above: Performed By: #### LYN MALONEY, HFP #### [facility] (DEFAULT) [address] [place] [address] SURG PATH REQUESTon 01-22-20 Case Report Normal [facility] Comment on above: Result Comment: Surg ical Pathology Report Case: [id number] Authorizing Provider: Jacob Chester MD Collected: 01/22/2024 03:02 PM Ordering Location: [facility] Received: 01/23/2024 08:05 AM Pathologist: Rosario Thornton MD Specimen: TISSUE, small bowel Performed By: #### S URGP #### [facility] (DEFAULT) [address] [place] [address] Clinical History Small bowel obstruction. Normal [facility] Comment on above: Performed By: #### S URGP #### [facility] (DEFAULT) [address] [address] Gross Description Normal [facility] Comment on above: Result Comment: The specimen is received in one properly labeled container with the patient's name and accession number. A. The specimen is designated small bowel and consists of an unoriented portion of bowel measuring 14.8 cm in length with a diameter ranging from 1.2 to 3.2 cm. The specimen is unoriented and arbitrarily designated as margin #1 and margin #2. The serosal surface is pale varela to focally dark brown with attached dark brown mesenteric fat. Opening of the bowel reveals a focal varela-green varela-brown roughened area (5.4 x 3.2 cm) located 2.5 cm from margin #1 and 9.1 cm from the margin #2. The remaining mucosa is varela-brown and edematous. Sectioning of the attached fat reveals a dark brown to focally hemorrhagic cut surface. RS 6 Cassettes: A1, margin #1, shave, bisected; A2, margin #2, shave, bisected; A3, varela-brown ragged mucosa; A4, uninvolved mucosa; A5, enrollment representative section of hemorrhagic dark brown areas with the mesenteric fat; A6, additional enrollment representative section mesenteric fat to include vasculature Lab Use Only: JobID [id number] Grosser for this case was: Iman Aponte Performed By: #### S URGP #### [facility] (DEFAULT) [address] [address] Microscopic Description A microscopic examination was performed. Normal [facility] Comment on above: Performed By: #### S URGP #### [facility] (DEFAULT) [address] [address] Pathologic Diagnosis [facility] Comment on above: Result Comment: Navi weller bowel, excision: Small bowel with focal ischemic injury Viable margins Performed By: #### S URGP #### [facility] (DEFAULT) [address] [place] [address] Professional Interpretation Performed at: Normal [facility] Comment on above: Result Comment: [facility] For Immediate Release to Patient's MyChart? Yes [address] [address] Performed By: #### S URGP #### [facility] (DEFAULT) [address] [place] [address] TYPE AND SCREENon 01-22-2024 ABO/RH(D) TYPE Positive [facility] ABO/RH(D) TYPE Positive Normal [facility] Comment on above: Performed By: #### M GO, CHM7, HFP #### [facility] (DEFAULT) [address] [place] [address] BASIC METABOLIC PANELOrdered By: Thierno Morelos on 01-21-2024 Anion gap [Moles/Vol] 11 mmol/L 7 - 17 mmol/L [facility] Calcium [Mass/Vol] 9.5 mg/dL 8.6 - 10. 5 mg/dL [facility] Chloride [Moles/Vol] 96 mmol/L Low 98 - 10 8 mmol/L [facility] CO2 [Moles/Vol] 31 mmol/L 21 - 31 mmol/L [facility] Creatinine [Mass/Vol] 1.52 mg/dL High 0.50 - 1.20 mg/dL [facility] eGFR, CKD-EPI, Female 35 Low - PINF [facility] Glucose [Mass/Vol] 206 mg/dL High 70 - 99 mg/dL [facility] Interpretation and review of laboratory results Abnormal [facility] Osmolality Calc [Osmolality] 293 [facility] Potassium [Moles/Vol] 3.8 mmol/L 3.5 - 5.0 mmol/L [facility] Sodium [Moles/Vol] 134 mmol/L Low 135 - 145 mmol/L [facility] Urea nitrogen [Mass/Vol] 26 mg/dL High 7 - 25 mg/dL [facility] Urea nitrogen/Creatinine [Mass ratio] 17 mg/mg [facility] BASIC METABOLIC PANELon 07-0 Anion gap [Moles/Vol] 11 mmol/L Normal 7-17 [facility] Comment on above: Performed By: #### S URGP #### [facility] (DEFAULT) [address] [place] [address] 34367 Calcium [Mass/Vol] 9.5 mg/dL Normal 8.6-10.5 [facility] Comment on above: Performed By: #### S URGP #### [facility] (DEFAULT) [address] [place] [address] 00541 Chloride [Moles/Vol] 96 mmol/L Low 98-[address] [facility] Comment on above: Performed By: #### S URGP #### [facility] (DEFAULT) [address] [place] [address] 99600 CO2 [Moles/Vol] 31 mmol/L Normal 21-31 [facility] Comment on above: Performed By: #### S URGP #### [facility] (DEFAULT) [address] [place] [address] 89826 Creatinine [Mass/Vol] 1.52 mg/dL High 0.50-1.20 [facility] Comment on above: Performed By: #### S URGP #### [facility] (DEFAULT) [address] [place] [address] 83350 GFR/1.73 sq M.predicted among non-blacks MDRD (S/P/Bld) [Vol rate/Area] 35 mL/min/{1.73_m2} Low >=[address] [facility] Comment on above: Result Comment: Repo rted eGFR is based on the CKD-EPI 2020 equation using creatinine, age, and sex. Performed By: #### S URGP #### [facility] (DEFAULT) [address] [place] [address] 87540 Glucose [Mass/Vol] 206 mg/dL High 70-99 [facility] Comment on above: Performed By: #### S URGP #### [facility] (DEFAULT) [address] [place] [address] 24564 Osmolality [Osmolality] 293 mosm/kg Normal 278-[address] [facility] Comment on above: Performed By: #### S URGP #### [facility] (DEFAULT) [address] [place] [address] 79322 Potassium [Moles/Vol] 3.8 mmol/L Normal 3.5-5.0 [facility] Comment on above: Performed By: #### S URGP #### [facility] (DEFAULT) [address] [place] [address] 80253 Sodium [Moles/Vol] 134 mmol/L Low 135-145 [facility] Comment on above: Performed By: #### S URGP #### [facility] (DEFAULT) [address] [place] [address] 52608 Urea nitrogen [Mass/Vol] 26 mg/dL High 7-[address] [facility] Comment on above: Performed By: #### S URGP #### [facility] (DEFAULT) [address] [place] [address] 87060 Urea nitrogen/Creatinine [Mass ratio] 17 mg/mg Normal [facility] Comment on above: Performed By: #### S URGP #### [facility] (DEFAULT) [address] [place] [address] 19644 GLUCOSE POCon 01-21-2024 Glucose [Mass/Vol] 185 mg/dL High 70 - 99 mg/dL [facility] Glucose [Mass/Vol] 161 mg/dL High 70 - 99 mg/dL [facility] Glucose [Mass/Vol] 193 mg/dL High 70 - 99 mg/dL [facility] Interpretation and review of laboratory results Abnormal [facility] POC Sample Type CAPBL [facility] MAGNESIUMon 01-21-2024 Interpretation and review of laboratory results Normal [facility] Magnesium [Mass/Vol] 2.0 mg/dL 1.6 - 2 .6 mg/dL [facility] Magnesium [Mass/Vol] 2.0 mg/dL Normal 1.6-2.[address] [facility] Comment on above: Performed By: #### T YPEC #### [facility] (DEFAULT) [address] [place] [address] 68523 No Panel Informationon 01-20 Interpretation and review of laboratory results Abnormal [facility] POC Sample Type CAPBL [facility] TSH W/FT4 REFLEXon Interpretation and review of laboratory results Normal [facility] TSH Qn 3.805 m[IU]/L [facility] TSH 3.805 uIU/mL Normal 0.550-4.[address] [facility] Comment on above: Performed By: #### S URGP #### [facility] (DEFAULT) [address] [place] [address] 61912 XR ABDOMEN 1 VIEW PORTABLEon 01-21-2024 XR ABDOMEN 1 VIEW PORTABLE EXAM: XR ABDOMEN 1 VIEW PORTABLE, 01/21/2024 23:45 PM COMPARISON: January 21, 2024 CLINICAL INDICATIONS: ng confirmation FINDINGS: Limited field of view radiograph of the upper abdomen was obtained to evaluate enteric tube positioning. The NG tube is located with its tip and side-port projecting over the mid gastric body.. Gaseous dilatation of bowel in the left abdomen is similar to prior film. No gross free air. IMPRESSION: Enteric tube within the stomach. Normal [facility] XR ABDOMEN 1 VIEW PORTABLE EXAM: XR ABDOMEN 1 VIEW PORTABLE, 01/21/2024 06:41 AM COMPARISON: January 20, 2024 CLINICAL INDICATIONS: NG tube placement FINDINGS: Tubes: NG tube tip and sidehole are in the stomach. Bowel gas pattern: Persistent gas-filled and dilated loops of small bowel in the left upper quadrant and central abdomen. Pelvis is excluded. No visible free air. Abnormal calcifications/Radiopaciti es: None. Bones: No acute abnormality. Severe degenerative changes of the spine with a scoliosis. Other findings: Low lung volumes. IMPRESSION: Satisfactory position of the nasogastric tube. Normal [facility] XR Abdomen Single viewon [facility] X[facility] Abdomen Single viewOrdere d By: Carmelo Rosales on 01-21-2024 [facility] Work Phone: BASIC METABOLIC PANELOrdered By: Alba Ambrose on 01-20-2024 Anion gap [Moles/Vol] 14 mmol/L 7 - 17 mmol/L [facility] Calcium [Mass/Vol] 9.6 mg/dL 8.6 - 10. 5 mg/dL [facility] Chloride [Moles/Vol] 100 mmol/L 98 - 10 8 mmol/L [facility] CO2 [Moles/Vol] 26 mmol/L 21 - 31 mmol/L [facility] Creatinine [Mass/Vol] 1.42 mg/dL High 0.50 - 1.20 mg/dL [facility] eGFR, CKD-EPI, Female 38 Low - PINF [facility] Glucose [Mass/Vol] 216 mg/dL High 70 - 99 mg/dL [facility] Interpretation and review of laboratory results Abnormal [facility] Osmolality Calc [Osmolality] 298 [facility] Potassium [Moles/Vol] 5.0 mmol/L 3.5 - 5.0 mmol/L [facility] Sodium [Moles/Vol] 135 mmol/L 135 - 145 mmol/L [facility] Urea nitrogen [Mass/Vol] 27 mg/dL High 7 - 25 mg/dL [facility] Urea nitrogen/Creatinine [Mass ratio] 19 mg/mg [facility] BASIC METABOLIC PANELon 07-0 Anion gap [Moles/Vol] 14 mmol/L Normal 7-17 [facility] Comment on above: Performed By: #### B FLD #### [facility] (DEFAULT) [address] [place] [address] 99116 Calcium [Mass/Vol] 9.6 mg/dL Normal 8.6-10.5 [facility] Comment on above: Performed By: #### B FLD #### [facility] (DEFAULT) [address] [place] [address] 22471 Chloride [Moles/Vol] 100 mmol/L Normal 98-[address] [facility] Comment on above: Performed By: #### B FLD #### [facility] (DEFAULT) [address] [place] [address] 67918 CO2 [Moles/Vol] 26 mmol/L Normal 21-31 [facility] Comment on above: Performed By: #### B FLD #### [facility] (DEFAULT) [address] [place] [address] 60843 Creatinine [Mass/Vol] 1.42 mg/dL High 0.50-1.20 [facility] Comment on above: Performed By: #### B FLD #### [facility] (DEFAULT) [address] [place] [address] 79537 GFR/1.73 sq M.predicted among non-blacks MDRD (S/P/Bld) [Vol rate/Area] 38 mL/min/{1.73_m2} Low >=[address] [facility] Comment on above: Result Comment: Repo rted eGFR is based on the CKD-EPI 2020 equation using creatinine, age, and sex. Performed By: #### B FLD #### [facility] (DEFAULT) [address] [place] [address] 07289 Glucose [Mass/Vol] 216 mg/dL High 70-99 [facility] Comment on above: Performed By: #### B FLD #### [facility] (DEFAULT) [address] [place] [address] 98576 Osmolality [Osmolality] 298 mosm/kg Normal 278-[address] [facility] Comment on above: Performed By: #### B FLD #### [facility] (DEFAULT) [address] [place] [address] 14360 Potassium [Moles/Vol] 5.0 mmol/L Normal 3.5-5.0 [facility] Comment on above: Performed By: #### B FLD #### [facility] (DEFAULT) [address] [place] [address] 47619 Sodium [Moles/Vol] 135 mmol/L Normal 135-145 [facility] Comment on above: Performed By: #### B FLD #### [facility] (DEFAULT) [address] [place] [address] 75454 Urea nitrogen [Mass/Vol] 27 mg/dL High 7-[address] [facility] Comment on above: Performed By: #### B FLD #### [facility] (DEFAULT) [address] [place] [address] 67529 Urea nitrogen/Creatinine [Mass ratio] 19 mg/mg Normal [facility] Comment on above: Performed By: #### B FLD #### [facility] (DEFAULT) [address] [place] [address] 12424 CBC,PLATELETSon 01-20-2024 Erythrocyte distribution width (RBC) [Ratio] 13.3 % 10.8 - 14.9 % [facility] Hematocrit (Bld) [Volume fraction] 37.2 % 34.9 - 44.3 % [facility] Hemoglobin (Bld) [Mass/Vol] 11.5 g/dL 11.4 - 15.2 g/dL [facility] Interpretation and review of laboratory results Abnormal [facility] MCH (RBC) [Entitic mass] 27.9 pg 25.9 - 33.9 pg [facility] MCHC (RBC) [Mass/Vol] 30.9 g/dL Low 31.4 - 35.9 g/dL [facility] MCV (RBC) [Entitic vol] 90.3 fL 79.6 - 97.7 fL [facility] Platelet mean volume (Bld) [Entitic vol] 11.3 fL 8.5 - 12.2 fL [facility] Platelets (Bld) [#/Vol] 235 10*3/uL 150 - 393 K/uL [facility] RBC (Bld) [#/Vol] 4.12 10*6/uL [facility] WBC (Bld) [#/Vol] 11.68 10*3/uL High 3.99 - 11 .19 K/uL [facility] Hematocrit (Bld) [Volume fraction] 37.2 % Normal 34.9-44.[address] [facility] Comment on above: Performed By: #### LYN MALONEY, HFP #### [facility] (DEFAULT) [address] [address] Hemoglobin (Bld) [Mass/Vol] 11.5 g/dL Normal 11.4-15.[address] [facility] Comment on above: Performed By: #### LYN MALONEY, HFP #### [facility] (DEFAULT) [address] [place] [address] 20684 MCV (RBC) [Entitic vol] 90.3 fL Normal 79.6-97.[address] [facility] Comment on above: Performed By: #### LYN MALONEY, HFP #### [facility] (DEFAULT) [address] [place] [address] 50350 Mean Cell Hgb 27.9 pg Normal 25.9-33.[address] [facility] Comment on above: Performed By: #### LYN MALONEY, HFP #### [facility] (DEFAULT) [address] [place] [address] 58251 Mean Cell Hgb Conc 30.9 g/dL Low 31.4-35.9 [facility] Comment on above: Performed By: #### LYN MALONEY, HFP #### [facility] (DEFAULT) [address] [place] [address] 78626 Platelet mean volume (Bld) [Entitic vol] 11.3 fL Normal 8.5-12.[address] [facility] Comment on above: Performed By: #### LYN MALONEY, HFP #### [facility] (DEFAULT) [address] [place] [address] 14604 Platelets (Bld) [#/Vol] 235 10*3/uL Normal 150-[address] [facility] Comment on above: Performed By: #### LYN MALONEY, HFP #### [facility] (DEFAULT) [address] [place] [address] 92861 RBC (Bld) [#/Vol] 4.12 10*6/uL Normal 3.91-5.[address] [facility] Comment on above: Performed By: #### LYN MALONEY, HFP #### [facility] (DEFAULT) [address] [place] [address] 01879 RBC Distribution 13.3 % Normal 10.8-14.9 [facility] Comment on above: Performed By: #### LYN MALONEY, HFP #### [facility] (DEFAULT) [address] [place] [address] 93966 WBC (Bld) [#/Vol] 11.68 10*3/uL High 3.99-11.[address] [facility] Comment on above: Performed By: #### LYN MALONEY, HFP #### [facility] (DEFAULT) [address] [place] [address] 58074 GLUCOSE POCon 01-20-2024 Glucose [Mass/Vol] 237 mg/dL High 70 - 99 mg/dL [facility] Interpretation and review of laboratory results Abnormal [facility] POC Sample Type CAPBL [facility] Glucose [Mass/Vol] 296 mg/dL High 70 - 99 mg/dL [facility] Interpretation and review of laboratory results Abnormal [facility] POC Sample Type CAPBL [facility] Glucose [Mass/Vol] 210 mg/dL High 70 - 99 mg/dL [facility] Interpretation and review of laboratory results Abnormal [facility] POC Sample Type CAPBL [facility] Glucose [Mass/Vol] 184 mg/dL High 70 - 99 mg/dL [facility] Interpretation and review of laboratory results Abnormal [facility] POC Sample Type CAPBL [facility] Glucose [Mass/Vol] 248 mg/dL High 70 - 99 mg/dL [facility] Interpretation and review of laboratory results Abnormal [facility] POC Sample Type CAPBL [facility] Glucose [Mass/Vol] 253 mg/dL High 70 - 99 mg/dL [facility] Interpretation and review of laboratory results Abnormal [facility] POC Sample Type CAPBL [facility] MAGNESIUMon 01-20-2024 Interpretation and review of laboratory results Normal [facility] Magnesium [Mass/Vol] 2.6 mg/dL 1.6 - 2 .6 mg/dL [facility] Magnesium [Mass/Vol] 2.6 mg/dL Normal 1.6-2.[address] [facility] Comment on above: Performed By: #### B FLD #### [facility] (DEFAULT) [address] [place] [address] 61901 XR ABDOMEN 1 VIEW PORTABLEon 01-20-2024 XR ABDOMEN 1 VIEW PORTABLE EXAM: XR ABDOMEN 1 VIEW PORTABLE, 01/20/2024 08:34 AM COMPARISON: January 19, 2024 CLINICAL INDICATIONS: follow up of ileus FINDINGS: Tubes: None. Bowel gas pattern: Persistent and overall similar gaseous dilation of small bowel. Minimal visible colonic gas. No visible free air. Abnormal calcifications/Radiopaciti es: None. Bones: Advanced degenerative changes with a rightward lumbar scoliosis. ORIF of the right hip. Other findings: None. IMPRESSION: Unchanged likely small bowel ileus versus less likely obstruction. Normal [facility] XR Abdomen Single viewon RADIOLOGY RADIOLOGY [facility] Radiology [facility]narrative) [facility] BASIC METABOLIC PANELOrdered By: Jet Reed on 01-19-2024 Anion gap [Moles/Vol] 14 mmol/L 7 - 17 mmol/L [facility] Calcium [Mass/Vol] 9.4 mg/dL 8.6 - 10. 5 mg/dL [facility] Chloride [Moles/Vol] 97 mmol/L Low 98 - 10 8 mmol/L [facility] CO2 [Moles/Vol] 26 mmol/L 21 - 31 mmol/L [facility] Creatinine [Mass/Vol] 1.33 mg/dL High 0.50 - 1.20 mg/dL [facility] eGFR, CKD-EPI, Female 41 Low - PINF [facility] Glucose [Mass/Vol] 283 mg/dL High 70 - 99 mg/dL [facility] Interpretation and review of laboratory results Abnormal [facility] Osmolality Calc [Osmolality] 295 [facility] Potassium [Moles/Vol] 4.0 mmol/L 3.5 - 5.0 mmol/L [facility] Sodium [Moles/Vol] 133 mmol/L Low 135 - 145 mmol/L [facility] Urea nitrogen [Mass/Vol] 24 mg/dL 7 - 25 mg/dL [facility] Urea nitrogen/Creatinine [Mass ratio] 18 mg/mg [facility] BASIC METABOLIC PANELon Anion gap [Moles/Vol] 14 mmol/L Normal 7-17 [facility] Comment on above: Performed By: #### C 7C, MGO #### [facility] (DEFAULT) [address] [place] [address] 76940 Calcium [Mass/Vol] 9.4 mg/dL Normal 8.6-10.5 [facility] Comment on above: Performed By: #### C 7C, MGO #### [facility] (DEFAULT) [address] [place] [address] 16463 Chloride [Moles/Vol] 97 mmol/L Low 98-[address] [facility] Comment on above: Performed By: #### C 7C, MGO #### [facility] (DEFAULT) [address] [place] [address] 39270 CO2 [Moles/Vol] 26 mmol/L Normal 21-31 [facility] Comment on above: Performed By: #### José 7C, MGO #### [facility] (DEFAULT) [address] [place] [address] 16700 Creatinine [Mass/Vol] 1.33 mg/dL High 0.50-1.20 [facility] Comment on above: Performed By: #### José 7C, MGO #### [facility] (DEFAULT) [address] [place] [address] 08652 GFR/1.73 sq M.predicted among non-blacks MDRD (S/P/Bld) [Vol rate/Area] 41 mL/min/{1.73_m2} Low >=[address] [facility] Comment on above: Result Comment: Repo rted eGFR is based on the CKD-EPI 2020 equation using creatinine, age, and sex. Performed By: #### C 7C, MGO #### [facility] (DEFAULT) [address] [place] [address] 45283 Glucose [Mass/Vol] 283 mg/dL High 70-99 [facility] Comment on above: Performed By: #### C 7C, MGO #### [facility] (DEFAULT) [address] [place] [address] 92370 Osmolality [Osmolality] 295 mosm/kg Normal 278-[address] [facility] Comment on above: Performed By: #### C 7C, MGO #### [facility] (DEFAULT) [address] [place] [address] Potassium [Moles/Vol] 4.0 mmol/L Normal 3.5-5.0 [facility] Comment on above: Performed By: #### José 7C, MGO #### [facility] (DEFAULT) [address] [place] [address] Sodium [Moles/Vol] 133 mmol/L Low 135-145 [facility] Comment on above: Performed By: #### José 7C, MGO #### [facility] (DEFAULT) [address] [place] [address] Urea nitrogen [Mass/Vol] 24 mg/dL Normal 7-[address] [facility] Comment on above: Performed By: #### José 7C, MGO #### [facility] (DEFAULT) [address] [place] [address] 82445 Urea nitrogen/Creatinine [Mass ratio] 18 mg/mg Normal [facility] Comment on above: Performed By: #### José 7C, MGO #### [facility] (DEFAULT) [address] [place] [address] 18477 GLUCOSE POCon 01-19-2024 Glucose [Mass/Vol] 283 mg/dL High 70 - 99 mg/dL [facility] Glucose [Mass/Vol] 294 mg/dL High 70 - 99 mg/dL [facility] Glucose [Mass/Vol] 276 mg/dL High 70 - 99 mg/dL [facility] Glucose [Mass/Vol] 268 mg/dL High 70 - 99 mg/dL [facility] Glucose [Mass/Vol] 246 mg/dL High 70 - 99 mg/dL [facility] MAGNESIUMon 01-19-2024 Interpretation and review of laboratory results Abnormal [facility] Magnesium [Mass/Vol] 1.4 mg/dL Low 1.6 - 2 .6 mg/dL [facility] Magnesium [Mass/Vol] 1.4 mg/dL Low 1.6-2.[address] [facility] Comment on above: Performed By: #### C 7C, MGO #### [facility] (DEFAULT) [address] [place] [address] No Panel Informationon 01-18 Interpretation and review of laboratory results Abnormal [facility] POC Sample Type CAPBL [facility] Interpretation and review of laboratory results Abnormal [facility] POC Sample Type CAPBL [facility] Portable XR Chest Viewson RADIOLOGY RADIOLOGY [facility] Portable XR Chest ViewsOrder ed By: Laisha Tolentino on 01-19-2024 [facility] Work Phone: XR ABDOMEN 1 VIEW PORTABLEon 01-19-2024 XR ABDOMEN 1 VIEW PORTABLE EXAM: XR ABDOMEN 1 VIEW PORTABLE, 01/19/2024 03:11 AM COMPARISON: No prior abdominal radiographs available for comparison. CLINICAL INDICATIONS: increaseing nausea/vomtiing, eval for bstruction/ileus FINDINGS: Tubes: None. Bowel gas pattern: Air-filled and mildly dilated loops of small bowel primarily in the left abdomen. No visible colonic gas. No visible free air. Abnormal calcifications/Radiopaciti es: None. Bones: ORIF of the right hip/proximal femur. Severe scoliosis of the lumbar spine with advanced degenerative changes. Other findings: None. IMPRESSION: Ileus versus small bowel obstruction. Normal [facility] XR Abdomen Single viewon RADIOLOGY RADIOLOGY [facility] Radiology Study observation (narrative) [facility] XR Abdomen Single viewOrdere d By: Malina Leonard on 01-19-2024 [facility] Work Phone: XR CHEST 1 VIEW PORTABLEon 0 01-19-2024 XR CHEST 1 VIEW PORTABLE EXAM: XR CHEST 1 VIEW PORTABLE, 01/18/2024 23:39 PM COMPARISON: No prior studies available for comparison. CLINICAL INDICATIONS: concern for aspiratoon RELEVANT CLINICAL HISTORY: FINDINGS: (Adequate technique) Implanted Devices: None Thorax: No acute findings in the chest. IMPRESSION: No acute cardiopulmonary disease Normal [facility] BASIC METABOLIC PANELon Anion gap [Moles/Vol] 12 mmol/L 7 - 17 mmol/L [facility] Calcium [Mass/Vol] 9.7 mg/dL 8.6 - 10. 5 mg/dL [facility] Chloride [Moles/Vol] 102 mmol/L 98 - 10 8 mmol/L [facility] CO2 [Moles/Vol] 29 mmol/L 21 - 31 mmol/L [facility] Creatinine [Mass/Vol] 1.56 mg/dL High 0.50 - 1.20 mg/dL [facility] eGFR, CKD-EPI, Female 34 Low - PINF [facility] Glucose [Mass/Vol] 162 mg/dL High 70 - 99 mg/dL [facility] [facility] Interpretation and review of laboratory results Abnormal [facility] Osmolality Calc [Osmolality] 299 [facility] Potassium [Moles/Vol] 4.0 mmol/L 3.5 - 5.0 mmol/L [facility] Sodium [Moles/Vol] 139 mmol/L 135 - 145 mmol/L [facility] Urea nitrogen [Mass/Vol] 24 mg/dL 7 - 25 mg/dL [facility] Urea nitrogen/Creatinine [Mass ratio] 15 mg/mg [facility] Anion gap [Moles/Vol] 12 mmol/L Normal 7-17 [facility] Comment on above: Performed By: #### M GIOVANNI, CHM7, HFP #### [facility] (DEFAULT) [address] [place] [address] Calcium [Mass/Vol] 9.7 mg/dL Normal 8.6-10.5 [facility] Comment on above: Performed By: #### LYN MALONEY, HFP #### [facility] (DEFAULT) [address] [place] [address] 63484 Chloride [Moles/Vol] 102 mmol/L Normal 98-[address] [facility] Comment on above: Performed By: #### LYN MALONEY, HFP #### [facility] (DEFAULT) [address] [place] [address] 33923 CO2 [Moles/Vol] 29 mmol/L Normal 21-31 [facility] Comment on above: Performed By: #### LYN MALONEY, HFP #### [facility] (DEFAULT) [address] [place] [address] 40933 Creatinine [Mass/Vol] 1.56 mg/dL High 0.50-1.20 [facility] Comment on above: Performed By: #### LYN MALONEY, HFP #### [place] [facility] (DEFAULT) [address] [place] [address] 82134 GFR/1.73 sq M.predicted among non-blacks MDRD (S/P/Bld) [Vol rate/Area] 34 mL/min/{1.73_m2} Low >=[address] [facility] Comment on above: Result Comment: Repo rted eGFR is based on the CKD-EPI 2020 equation using creatinine, age, and sex. Performed By: #### LYN MALONEY, HFP #### [facility] (DEFAULT) [address] [place] [address] 70508 Glucose [Mass/Vol] 162 mg/dL High 70-99 [facility] Comment on above: Performed By: #### LYN MALONEY, HFP #### [facility] (DEFAULT) [address] [place] [address] 74968 Osmolality [Osmolality] 299 mosm/kg Normal 278-[address] [facility] Comment on above: Performed By: #### M GO, CHM7, HFP #### [facility] (DEFAULT) [address] [place] [address] 88930 Potassium [Moles/Vol] 4.0 mmol/L Normal 3.5-5.0 [facility] Comment on above: Performed By: #### Brian DAVILA CHM7, HFP #### [facility] (DEFAULT) [address] [place] [address] 58992 Sodium [Moles/Vol] 139 mmol/L Normal 135-145 [facility] Comment on above: Performed By: #### Brian DAVILA CHM7, HFP #### [facility] (DEFAULT) [address] [place] [address] 75133 Urea nitrogen [Mass/Vol] 24 mg/dL Normal 7-[address] [facility] Comment on above: Performed By: #### Brian DAVILA CHM7, HFP #### [facility] (DEFAULT) [address] [place] [address] 31320 Urea nitrogen/Creatinine [Mass ratio] 15 mg/mg Normal [facility] Comment on above: Performed By: #### Brian DAVILA CHM7, HFP #### [facility] (DEFAULT) [address] [place] [address] 84551 CBC,PLATELETSon 01-18-2024 Erythrocyte distribution width (RBC) [Ratio] 13.0 % 10.8 - 14.9 % [facility] Hematocrit (Bld) [Volume fraction] 34.9 % 34.9 - 44.3 % [facility] Hemoglobin (Bld) [Mass/Vol] 10.7 g/dL Low 11.4 - 15.2 g/dL [facility] Interpretation and review of laboratory results Abnormal [facility] MCH (RBC) [Entitic mass] 27.1 pg 25.9 - 33.9 pg [facility] MCHC (RBC) [Mass/Vol] 30.7 g/dL Low 31.4 - 35.9 g/dL [facility] MCV (RBC) [Entitic vol] 88.4 fL 79.6 - 97.7 fL [facility] Platelet mean volume (Bld) [Entitic vol] 11.1 fL 8.5 - 12.2 fL [facility] Platelets (Bld) [#/Vol] 251 10*3/uL 150 - 393 K/uL [facility] RBC (Bld) [#/Vol] 3.95 10*6/uL [facility] WBC (Bld) [#/Vol] 6.73 10*3/uL 3.99 - 11. 19 K/uL [facility] Hematocrit (Bld) [Volume fraction] 34.9 % Normal 34.9-44.[address] [facility] Comment on above: Performed By: #### José 7C, MGO #### [facility] (DEFAULT) [address] [place] [address] 32268 Hemoglobin (Bld) [Mass/Vol] 10.7 g/dL Low 11.4-15.[address] [facility] Comment on above: Performed By: #### José 7C, MGO #### [facility] (DEFAULT) [address] [place] [address] 22257 MCV (RBC) [Entitic vol] 88.4 fL Normal 79.6-97.[address] [facility] Comment on above: Performed By: #### José 7C, MGO #### [facility] (DEFAULT) [address] [place] [address] 64444 Mean Cell Hgb 27.1 pg Normal 25.9-33.[address] [facility] Comment on above: Performed By: #### José 7C, MGO #### [facility] (DEFAULT) [address] [place] [address] 57654 Mean Cell Hgb Conc 30.7 g/dL Low 31.4-35.9 [facility] Comment on above: Performed By: #### José 7C, MGO #### [facility] (DEFAULT) [address] [place] [address] 24694 Platelet mean volume (Bld) [Entitic vol] 11.1 fL Normal 8.5-12.[address] [facility] Comment on above: Performed By: #### José 7C, MGO #### [facility] (DEFAULT) [address] [place] [address] 83443 Platelets (Bld) [#/Vol] 251 10*3/uL Normal 150-[address] [facility] Comment on above: Performed By: #### José 7C, MGO #### [facility] (DEFAULT) [address] [place] [address] 75764 RBC (Bld) [#/Vol] 3.95 10*6/uL Normal 3.91-5.[address] [facility] Comment on above: Performed By: #### José 7C, MGO #### [facility] (DEFAULT) [address] [place] [address] 69381 RBC Distribution 13.0 % Normal 10.8-14.9 [facility] Comment on above: Performed By: #### José 7C, MGO #### [facility] (DEFAULT) [address] [place] [address] 43825 WBC (Bld) [#/Vol] 6.73 10*3/uL Normal 3.99-11.[address] [facility] Comment on above: Performed By: #### José 7C, MGO #### [facility] (DEFAULT) [address] [place] [address] 69252 GLUCOSE POCon 01-18-2024 Glucose [Mass/Vol] 256 mg/dL High 70 - 99 mg/dL [facility] Interpretation and review of laboratory results Abnormal [facility] POC Sample Type CAPBL [facility] Glucose [Mass/Vol] 194 mg/dL High 70 - 99 mg/dL [facility] Interpretation and review of laboratory results Abnormal [facility] POC Sample Type CAPBL [facility] Portable XR Chest Viewson Radiology Study observation (narrative) [facility] VANCOMYCIN LEVEL, TROUGH (DE E DRUG LEVEL)on 01-18-2024 Interpretation and review of laboratory results Abnormal [facility] Vancomycin trough [Mass/Vol] 21.0 ug/mL High Therapeutic Range: 10.0-20.0 mcg/mL mcg/mL [facility] Vancomycin, Trough 21.0 mcg/mL High Therapeut ic Range: 10.0-20.0 mcg/mL [facility] Comment on above: Order Comment: Pleas e draw level at specified interval PRIOR to next dose. Performed By: #### B FLD #### [facility] (DEFAULT) [address] [place] [address] BASIC METABOLIC PANELon Anion gap [Moles/Vol] 14 mmol/L 7 - 17 mmol/L [facility] Calcium [Mass/Vol] 9.3 mg/dL 8.6 - 10. 5 mg/dL [facility] Chloride [Moles/Vol] 102 mmol/L 98 - 10 8 mmol/L [facility] CO2 [Moles/Vol] 26 mmol/L 21 - 31 mmol/L [facility] Creatinine [Mass/Vol] 1.63 mg/dL High 0.50 - 1.20 mg/dL [facility] eGFR, CKD-EPI, Female 32 Low - PINF [facility] Glucose [Mass/Vol] 251 mg/dL High 70 - 99 mg/dL [facility] Interpretation and review of laboratory results Abnormal [facility] Osmolality Calc [Osmolality] 303 [facility] Potassium [Moles/Vol] 3.9 mmol/L 3.5 - 5.0 mmol/L [facility] Sodium [Moles/Vol] 138 mmol/L 135 - 145 mmol/L [facility] Urea nitrogen [Mass/Vol] 25 mg/dL 7 - 25 mg/dL [facility] Urea nitrogen/Creatinine [Mass ratio] 15 [facility]SE [facility]Con 01-17-2024 Glucose [Mass/Vol] 240 mg/dL High 70 - 99 mg/dL [facility] Interpretation and review of laboratory results Abnormal [facility] POC Sample Type [facility] Glucose [Mass/Vol] 242 mg/dL High 70 - 99 mg/dL [facility] Interpretation and review of laboratory results Abnormal [facility] POC Sample Type CAP[facility] Glucose [Mass/Vol] 174 mg/dL High 70 - 99 mg/dL [facility] Interpretation and review of laboratory results Abnormal [facility] POC Sample Type CAPBL [facility] Glucose [Mass/Vol] 174 mg/dL High 70 - 99 mg/dL [facility] Interpretation and review of laboratory results Abnormal [facility] POC Sample Type CAPBL [facility] BASIC METABOLIC PANELon 07-0 -2023 Anion gap [Moles/Vol] 14 mmol/L Normal 7-17 [facility] Comment on above: Performed By: #### LYN MALONEY, HFP #### [facility] (DEFAULT) [address] [place] [address] Calcium [Mass/Vol] 9.3 mg/dL Normal 8.6-10.5 [facility] Comment on above: Performed By: #### LYN MALONEY, HFP #### [facility] (DEFAULT) [address] [place] [address] Chloride [Moles/Vol] 102 mmol/L Normal 98-[address] [facility] Comment on above: Performed By: #### LYN MALONEY, HFP #### [facility] (DEFAULT) [address] [place] [address] CO2 [Moles/Vol] 26 mmol/L Normal 21-31 [facility] Comment on above: Performed By: #### LYN MALONEY, HFP #### [facility] (DEFAULT) [address] [place] [address] 22808 Creatinine [Mass/Vol] 1.63 mg/dL High 0.50-1.20 [facility] Comment on above: Performed By: #### LYN MALONEY, HFP #### [facility] (DEFAULT) [address] [place] [address] 21836 GFR/1.73 sq M.predicted among non-blacks MDRD (S/P/Bld) [Vol rate/Area] 32 mL/min/{1.73_m2} Low >=[address] [facility] Comment on above: Result Comment: Repo rted eGFR is based on the CKD-EPI 2020 equation using creatinine, age, and sex. Performed By: #### LYN MALONEY, HFP #### [facility] [facility] (DEFAULT) [address] [place] [address] 82563 Glucose [Mass/Vol] 251 mg/dL High 70-99 [facility] Comment on above: Performed By: #### LYN MALONEY, HFP #### [facility] (DEFAULT) [address] [place] [address] 55166 Osmolality [Osmolality] 303 mosm/kg Normal 278-[address] [facility] Comment on above: Performed By: #### LYN MALONEY, HFP #### [place] [facility] (DEFAULT) [address] [place] [address] 02040 Potassium [Moles/Vol] 3.9 mmol/L Normal 3.5-5.0 [facility] Comment on above: Performed By: #### LYN MALONEY, HFP #### [facility] (DEFAULT) [address] [place] [address] 04565 Sodium [Moles/Vol] 138 mmol/L Normal 135-145 [facility] Comment on above: Performed By: #### LYN MALONEY, HFP #### [facility] (DEFAULT) [address] [place] [address] Urea nitrogen [Mass/Vol] 25 mg/dL Normal 7-[address] [facility] Comment on above: Performed By: #### M LYN DAVILA, HFP #### [facility] (DEFAULT) [address] [place] [address] Urea nitrogen/Creatinine [Mass ratio] 15 mg/mg Normal [facility] Comment on above: Performed By: #### LYN MALONEY, HFP #### [facility] (DEFAULT) [address] [place] [address] Anion gap [Moles/Vol] 13 mmol/L 7 - 17 mmol/L [facility] Calcium [Mass/Vol] 9.6 mg/dL 8.6 - 10. 5 mg/dL [facility] Chloride [Moles/Vol] 107 mmol/L 98 - 10 8 mmol/L [facility] CO2 [Moles/Vol] 25 mmol/L 21 - 31 mmol/L [facility] Creatinine [Mass/Vol] 1.05 mg/dL 0.50 - 1.20 mg/dL [facility] eGFR, CKD-EPI, Female 55 Low - PINF [facility] Glucose [Mass/Vol] 136 mg/dL High 70 - 99 mg/dL [facility] Interpretation and review of laboratory results Abnormal [facility] Osmolality Calc [Osmolality] 299 [facility] Potassium [Moles/Vol] 3.7 mmol/L 3.5 - 5.0 mmol/L [facility] Sodium [Moles/Vol] 141 mmol/L 135 - 145 mmol/L [facility] Urea nitrogen [Mass/Vol] 19 mg/dL 7 - 25 mg/dL [facility] Urea nitrogen/Creatinine [Mass ratio] 18 mg/mg [facility] Anion gap [Moles/Vol] 13 mmol/L Normal 7-17 [facility] Comment on above: Performed By: #### José 7C, MGO #### [facility] (DEFAULT) [address] [place] [address] 09266 Calcium [Mass/Vol] 9.6 mg/dL Normal 8.6-10.5 [facility] Comment on above: Performed By: #### C 7C, MGO #### [facility] (DEFAULT) [address] [place] [address] 89335 Chloride [Moles/Vol] 107 mmol/L Normal 98-[address] [facility] Comment on above: Performed By: #### C 7C, MGO #### [facility] (DEFAULT) [address] [place] [address] 74170 CO2 [Moles/Vol] 25 mmol/L Normal 21-31 [facility] Comment on above: Performed By: #### C 7C, MGO #### [facility] (DEFAULT) [address] [place] [address] 19423 Creatinine [Mass/Vol] 1.05 mg/dL Normal 0.50-1.20 [facility] Comment on above: Performed By: #### C 7C, MGO #### [facility] (DEFAULT) [address] [place] [address] 33490 GFR/1.73 sq M.predicted among non-blacks MDRD (S/P/Bld) [Vol rate/Area] 55 mL/min/{1.73_m2} Low >=[address] [facility] Comment on above: Result Comment: Repo rted eGFR is based on the CKD-EPI 2020 equation using creatinine, age, and sex. Performed By: #### C 7C, MGO #### [facility] (DEFAULT) [address] [place] [address] 72725 Glucose [Mass/Vol] 136 mg/dL High 70-99 [facility] Comment on above: Performed By: #### C 7C, MGO #### [facility] (DEFAULT) [address] [place] [address] 22414 Osmolality [Osmolality] 299 mosm/kg Normal 278-[address] [facility] Comment on above: Performed By: #### C 7C, MGO #### [facility] (DEFAULT) [address] [place] [address] 54589 Potassium [Moles/Vol] 3.7 mmol/L Normal 3.5-5.0 [facility] Comment on above: Performed By: #### C 7C, MGO #### [facility] (DEFAULT) [address] [place] [address] 95903 Sodium [Moles/Vol] 141 mmol/L Normal 135-145 [facility] Comment on above: Performed By: #### C 7C, MGO #### [facility] (DEFAULT) [address] [place] [address] 92466 Urea nitrogen [Mass/Vol] 19 mg/dL Normal 7-[address] [facility] Comment on above: Performed By: #### C 7C, MGO #### [facility] (DEFAULT) [address] [place] [address] 37586 Urea nitrogen/Creatinine [Mass ratio] 18 mg/mg Normal [facility] Comment on above: Performed By: #### C 7C, MGO #### [facility] (DEFAULT) [address] [place] [address] 51014 CBC,PLATELETSon 01-16-2024 Erythrocyte distribution width (RBC) [Ratio] 12.9 % 10.8 - 14.9 % [facility] Hematocrit (Bld) [Volume fraction] 35.4 % 34.9 - 44.3 % [facility] Hemoglobin (Bld) [Mass/Vol] 11.1 g/dL Low 11.4 - 15.2 g/dL [facility] Interpretation and review of laboratory results Abnormal [facility] MCH (RBC) [Entitic mass] 27.8 pg 25.9 - 33.9 pg [facility] MCHC (RBC) [Mass/Vol] 31.4 g/dL 31.4 - 35.9 g/dL [facility] MCV (RBC) [Entitic vol] 88.5 fL 79.6 - 97.7 fL [facility] Platelet mean volume (Bld) [Entitic vol] 10.5 fL 8.5 - 12.2 fL [facility] Platelets (Bld) [#/Vol] 249 10*3/uL 150 - 393 K/uL [facility] RBC (Bld) [#/Vol] 4.00 10*6/uL [facility] WBC (Bld) [#/Vol] 6.67 10*3/uL 3.99 - 11. 19 K/uL [facility] Hematocrit (Bld) [Volume fraction] 35.4 % Normal 34.9-44.[address] [facility] Comment on above: Performed By: #### LYN MALONEY, HFP #### [facility] (DEFAULT) [address] [place] [address] 90452 Hemoglobin (Bld) [Mass/Vol] 11.1 g/dL Low 11.4-15.[address] [facility] Comment on above: Performed By: #### LYN MALONEY, HFP #### [facility] (DEFAULT) [address] [place] [address] 89399 MCV (RBC) [Entitic vol] 88.5 fL Normal 79.6-97.[address] [facility] Comment on above: Performed By: #### LYN MALONEY, HFP #### [facility] (DEFAULT) [address] [place] [address] 66367 Mean Cell Hgb 27.8 pg Normal 25.9-33.[address] [facility] Comment on above: Performed By: #### SILVIA MALONEY7, HFP #### [facility] (DEFAULT) [address] [place] [address] 29016 Mean Cell Hgb Conc 31.4 g/dL Normal 31.4-35.9 [facility] Comment on above: Performed By: #### Brian DAVILA CHM7, HFP #### [facility] (DEFAULT) [address] [place] [address] 38293 Platelet mean volume (Bld) [Entitic vol] 10.5 fL Normal 8.5-12.[address] [facility] Comment on above: Performed By: #### SILVIA MALONEY7, HFP #### [facility] (DEFAULT) [address] [place] [address] 36962 Platelets (Bld) [#/Vol] 249 10*3/uL Normal 150-[address] [facility] Comment on above: Performed By: #### M SILVIA DAVILA7, HFP #### [facility] (DEFAULT) [address] [place] [address] 08674 RBC (Bld) [#/Vol] 4.00 10*6/uL Normal 3.91-5.[address] [facility] Comment on above: Performed By: #### Brian DAVILA CHM7, HFP #### [facility] (DEFAULT) [address] [place] [address] 54357 RBC Distribution 12.9 % Normal 10.8-14.9 [facility] Comment on above: Performed By: #### SILVIA MALONEY7, HFP #### [facility] (DEFAULT) [address] [place] [address] 08321 WBC (Bld) [#/Vol] 6.67 10*3/uL Normal 3.99-11.[address] [facility] Comment on above: Performed By: #### Brian DAVILA CHM7, HFP #### [facility] (DEFAULT) [address] [place] [address] 80943 Enterovirus By PCRon 024 ENTEROVIRUS PCR Negative Normal Negative [facility] Comment on above: Result Comment: No E nteroviral RNA Detected.This test was developed and its performance characteristicsdetermined by [facility]. It has not been cleared or approvedby the Food and Drug Administration. The FDA hasdetermined that such clearance or approval is notnecessary.Performed at: [address] [id number] Director: Johnathon Malik MD, Phone: [phone] Performed By: #### L [id number] ####[facility] [id number] [place], [address] GLUCOSE POCon 01-16-2024 Glucose [Mass/Vol] 295 mg/dL High 70 - 99 mg/dL [facility] Glucose [Mass/Vol] 230 mg/dL High 70 - 99 mg/dL [facility] Glucose [Mass/Vol] 132 mg/dL High 70 - 99 mg/dL [facility] Glucose [Mass/Vol] 266 mg/dL High 70 - 99 mg/dL [facility] Glucose [Mass/Vol] 284 mg/dL High 70 - 99 mg/dL [facility] Glucose [Mass/Vol] 278 mg/dL High 70 - 99 mg/dL [facility] LYME ABon 01-16-2024 B. burgdorferi IgM IA Qn (S) Negative Negative [facility] Interpretation and review of laboratory results Normal [facility] No Panel Informationon 01-15 Interpretation and review of laboratory results Abnormal [facility] POC Sample Type CAPBL [facility] TSH W/FT4 REFLEXon Interpretation and review of laboratory results Normal [facility] TSH Qn 1.610 m[IU]/L [facility] TSH 1.610 uIU/mL Normal 0.550-4.[address] [facility] Comment on above: Performed By: #### C 7C, MGO #### [facility] (DEFAULT) [address] [place] [address] VANCOMYCIN LEVEL, TROUGH (DE E DRUG LEVEL)on 01-16-2024 Interpretation and review of laboratory results Abnormal [facility] Vancomycin trough [Mass/Vol] 20.9 ug/mL High Therapeutic Range: 10.0-20.0 mcg/mL mcg/mL [facility] Vancomycin, Trough 20.9 mcg/mL High Therapeut ic Range: 10.0-20.0 mcg/mL [facility] Comment on above: Order Comment: Pleas e draw level at specified interval PRIOR to next dose. Performed By: #### M GIOVANNI, M7, [facility] #### [facility] (DEFAULT) [address] [place] [address] GLUCOSE POCon 01-15-2024 Glucose [Mass/Vol] 331 mg/dL High 70 - 99 mg/dL [facility] Interpretation and review of laboratory results Abnormal [facility] [facility] POC Sample Type CAPBL [facility] Glucose [Mass/Vol] 187 mg/dL High 70 - 99 mg/dL [facility] Glucose [Mass/Vol] 276 mg/dL High 70 - 99 mg/dL [facility] No Panel Informationon 01-14 Interpretation and review of laboratory results Abnormal [facility] POC Sample Type CAPBL [facility] PLATELET COUNTon 01-15-2024 Interpretation and review of laboratory results Normal [facility] Platelet mean volume (Bld) [Entitic vol] 11.1 fL 8.5 - 12.2 fL [facility] Platelets (Bld) [#/Vol] 252 10*3/uL 150 - 393 K/uL [facility] Platelet mean volume (Bld) [Entitic vol] 11.1 fL Normal 8.5-12.[address] [facility] Comment on above: Performed By: #### T YPEC #### [facility] (DEFAULT) [address] [place] [address] Platelets (Bld) [#/Vol] 252 10*3/uL Normal 150-[address] [facility] Comment on above: Performed By: #### T YPEC #### [facility] (DEFAULT) [address] [place] [address] BASIC METABOLIC PANELon Anion gap [Moles/Vol] 13 mmol/L 7 - 17 mmol/L [facility] Calcium [Mass/Vol] 9.1 mg/dL 8.6 - 10. 5 mg/dL [facility] Chloride [Moles/Vol] 106 mmol/L 98 - 10 8 mmol/L [facility] CO2 [Moles/Vol] 22 mmol/L 21 - 31 mmol/L [facility] Creatinine [Mass/Vol] 1.12 mg/dL 0.50 - 1.20 mg/dL [facility] eGFR, CKD-EPI, Female 51 Low - PINF [facility] Glucose [Mass/Vol] 182 mg/dL High 70 - 99 mg/dL [facility] Interpretation and review of laboratory results Abnormal [facility] Osmolality Calc [Osmolality] 295 [facility] Potassium [Moles/Vol] 3.7 mmol/L 3.5 - 5.0 mmol/L [facility] Sodium [Moles/Vol] 137 mmol/L 135 - 145 mmol/L [facility] Urea nitrogen [Mass/Vol] 21 mg/dL 7 - 25 mg/dL [facility] Urea nitrogen/Creatinine [Mass ratio] 19 mg/mg [facility] Anion gap [Moles/Vol] 13 mmol/L Normal 7-17 [facility] Comment on above: Performed By: #### José 7C, MGO #### [facility] (DEFAULT) [address] [place] [address] Calcium [Mass/Vol] 9.1 mg/dL Normal 8.6-10.5 [facility] Comment on above: Performed By: #### José 7C, MGO #### [facility] (DEFAULT) [address] [place] [address] Chloride [Moles/Vol] 106 mmol/L Normal 98-[address] [facility] Comment on above: Performed By: #### José 7C, MGO #### [facility] (DEFAULT) [address] [place] [address] CO2 [Moles/Vol] 22 mmol/L Normal 21-31 [facility] Comment on above: Performed By: #### José 7C, MGO #### [facility] (DEFAULT) [address] [place] [address] Creatinine [Mass/Vol] 1.12 mg/dL Normal 0.50-1.20 [facility] Comment on above: Performed By: #### José 7C, MGO #### [facility] (DEFAULT) [address] [place] [address] GFR/1.73 sq M.predicted among non-blacks MDRD (S/P/Bld) [Vol rate/Area] 51 mL/min/{1.73_m2} Low >=[address] [facility] Comment on above: Result Comment: Repo rted eGFR is based on the CKD-EPI 2020 equation using creatinine, age, and sex. Performed By: #### José 7C, MGO #### [facility] (DEFAULT) [address] [place] [address] Glucose [Mass/Vol] 182 mg/dL High 70-99 [facility] Comment on above: Performed By: #### José Quiñones, MGO #### [facility] (DEFAULT) [address] [place] [address] Osmolality [Osmolality] 295 mosm/kg Normal 278-[address] [facility] Comment on above: Performed By: #### José 7C, MGO #### [facility] (DEFAULT) [address] [place] [address] Potassium [Moles/Vol] 3.7 mmol/L Normal 3.5-5.0 [facility] Comment on above: Performed By: #### José 7C, MGO #### [facility] (DEFAULT) [address] [place] [address] Sodium [Moles/Vol] 137 mmol/L Normal 135-145 [facility] Comment on above: Performed By: #### José 7C, MGO #### [facility] (DEFAULT) [address] [place] [address] Urea nitrogen [Mass/Vol] 21 mg/dL Normal 7-[address] [facility] Comment on above: Performed By: #### José 7C, MGO #### [facility] (DEFAULT) [address] [place] [address] Urea nitrogen/Creatinine [Mass ratio] 19 mg/mg Normal [facility] Comment on above: Performed By: #### José 7C, MGO #### [facility] (DEFAULT) [address] [place] [address] CBC,PLATELETSon 01-14-2024 Erythrocyte distribution width (RBC) [Ratio] 12.5 % 10.8 - 14.9 % [facility] Hematocrit (Bld) [Volume fraction] 34.1 % Low 34.9 - 44.3 % [facility] Hemoglobin (Bld) [Mass/Vol] 10.6 g/dL Low 11.4 - 15.2 g/dL [facility] Interpretation and review of laboratory results Abnormal [facility] MCH (RBC) [Entitic mass] 27.9 pg 25.9 - 33.9 pg [facility] MCHC (RBC) [Mass/Vol] 31.1 g/dL Low 31.4 - 35.9 g/dL [facility] MCV (RBC) [Entitic vol] 89.7 fL 79.6 - 97.7 fL [facility] Platelet mean volume (Bld) [Entitic vol] 10.6 fL 8.5 - 12.2 fL [facility] Platelets (Bld) [#/Vol] 218 10*3/uL 150 - 393 K/uL [facility] RBC (Bld) [#/Vol] 3.80 10*6/uL Low [facility] WBC (Bld) [#/Vol] 6.23 10*3/uL 3.99 - 11. 19 K/uL [facility] Hematocrit (Bld) [Volume fraction] 34.1 % Low 34.9-44.[address] [facility] Comment on above: Performed By: #### Brian DAVILA CHM7, HFP #### [facility] (DEFAULT) [address] [place] [address] Hemoglobin (Bld) [Mass/Vol] 10.6 g/dL Low 11.4-15.[address] [facility] Comment on above: Performed By: #### Brian DAVILA CHM7, HFP #### [facility] (DEFAULT) [address] [place] [address] MCV (RBC) [Entitic vol] 89.7 fL Normal 79.6-97.[address] [facility] Comment on above: Performed By: #### LYN MALONEY, HFP #### [facility] (DEFAULT) [address] [place] [address] Mean Cell Hgb 27.9 pg Normal 25.9-33.[address] [facility] Comment on above: Performed By: #### LYN MALONEY, HFP #### [facility] (DEFAULT) [address] [place] [address] Mean Cell Hgb Conc 31.1 g/dL Low 31.4-35.9 [facility] Comment on above: Performed By: #### LYN MALONEY, HFP #### [facility] (DEFAULT) [address] [place] [address] Platelet mean volume (Bld) [Entitic vol] 10.6 fL Normal 8.5-12.[address] [facility] Comment on above: Performed By: #### Brian DAVILA CHM7, HFP #### [facility] (DEFAULT) [address] [place] [address] Platelets (Bld) [#/Vol] 218 10*3/uL Normal 150-[address] [facility] Comment on above: Performed By: #### Brian DAVILA CHM7, HFP #### [facility] (DEFAULT) [address] [place] [address] RBC (Bld) [#/Vol] 3.80 10*6/uL Low 3.91-5.[address] [facility] Comment on above: Performed By: #### M GIOVANNI CHM7, HFP #### [facility] (DEFAULT) [address] [place] [address]8485 RBC Distribution 12.5 % Normal 10.8-14.9 [facility] Comment on above: Performed By: #### M GIOVANNI CHM7, HFP #### [facility] (DEFAULT) [address] [place] [address] WBC (Bld) [#/Vol] 6.23 10*3/uL Normal 3.99-11.[address] [facility] Comment on above: Performed By: #### Brian DAVILA CHM7, HFP #### [facility] (DEFAULT) [address] [place] [address] CSF DIFFERENTIALOrdered By: Montez Davis on 01-14-2024 Basophils/100 WBC Manual cnt (CSF) 0 % [facility] Work Phone: Cells Counted Total (CSF) [#] 100 [facility] Work Phone: Eosinophils/100 WBC Manual cnt (CSF) 0 % [facility] Work Phone: Interpretation and review of laboratory results Abnormal [facility] Work Phone: Lymphocytes/100 WBC Manual cnt (CSF) 48 % 40 - 80 % [facility] Work Phone: Monocytes+Macrophages /100 WBC (CSF) 6 % Low 15 - 45 % [facility] Work Phone: Neutrophils/100 WBC Manual cnt (CSF) 44 % High NINF - 6 % [facility] Work Phone: Nucleated RBC/100 WBC (Bld) [Ratio] 2 % [facility] Work Phone: Pathologist review Roger (Unsp spec) [Interp] Montez Davis MD [facility] Work Phone: Pathology report comments [Interpretation] Narrative q6anbFAiJOMydSPnTVAaI1brrn AnXBNqxQPlH1DxvgeuFScyBM6g WV7dhFcpdQIwjCQsPOLcCjZxq6 qsd888lHUgw8tsMOHFDVcyVSAM VWs9bFzkY14dz4R3PbueI18ukV RsMTA8UELnIXThgJTyPDNeWOG7 PSBivTIdU8tnRCRhMU0ghgsoCP ujCFfxINHuiXC7VIMpgXCyI2Sc ZRIjFSxoEVGutgz7OiVeSu4dvQ VyeTcyMFxwYXJkXHBsYWluXGZz LhUbLVzbjp87OUM5o8nieGLyDQ knKstzsOOupvY2YDbGLEVWYQqT TwFzDW2gBLdKO6ZJLYoECfzxBw yyL1bzsSR2f4aceQUaa8z5GZjg DRO9hG6xAINgJFW8wRMpD5IgEK 0pE4EfdTXomcSuRRBpKpHcLxam e5BwxHDgnHJyc3PhnP0eZHZ7aL YzIF4mNLFnop2crLTxgD5ioADk kEY9z9B3BESdtJkrLVGjDLAewd WsMGLMt4NuPGfzrFillkZ6nCTi CCzbZG8vn4XueQ4qVT0sHTZ3lY Q4auGicbElb12dJH0qXNXdz7gl gNUkYOdhBcnxfJSrdmM1WEqABY PYQGeOJiJrGJ7zXTxQV0SWWzT5 UkD0BqB2ORksvWinKjgnbxCucU JjQtIeqM0fiQqiuE5kKcEhZBIo RJQzrcasQSMnULHxddy9SBIAZZ EZGBiEER7ZOITUYDHPXE5DYVbU DqXfMroaV3iuTWV1WiB8HbL9Ui X5BZDWJWJRCXmQPG2QHKBOEFYP ZB5GBvXwV6hMBFYYXrAhXEYQEG NJQBZwQeMMCV3kC6uGTZVAUpDw QLCZNONPUEPrCF1VWTGXGYTTJI 1TLZBJQ41IDIZZJKEAK8WAB5mJ FVSnd3BttMNPo5T2SYLguLciJW QoMVMdTpJoFlCwZF8zNTgMN3AY E0xTBAQnPCZWOCZGKSEvUO9BUH dAJB7EMXUiIEBJQOZDHBIwDtGJ HT0kVIsFIV8BDVYmCKSHAGADFW QtMO6ANWBTHF4CCAHOFDFCH45J UOMUESAOJ7LKA5rNKNQBSGIKKj KTQjKOIT2OYPNKANBDET0OIkZ3 [facility] Work Phone: Tube number Nom (CSF) [ID] CSF TUBE 4 [facility] Work Phone: [facility] Work Phone: EBV Acute VCA IgMon 01-14-20 24 EBV Ab VCA, IgM < 36.0 Normal 0.0-35.9 [facility] Comment on above: Result Comment: Nega tive <36.0 Equivocal 36.0 - 43.9 Positive >43.9 Performed By: #### L 800.7510, L7000.8600, L3100.5900 ####[facility] [id number] [place], [place], [id number] GLUCOSE POCon 01-14-2024 Glucose [Mass/Vol] 253 mg/dL High 70 - 99 mg/dL [facility] Interpretation and review of laboratory results Abnormal [facility] POC Sample Type CAPBL [facility] Glucose [Mass/Vol] 251 mg/dL High 70 - 99 mg/dL [facility] Glucose [Mass/Vol] 241 mg/dL High 70 - 99 mg/dL [facility] Glucose [Mass/Vol] 168 mg/dL High 70 - 99 mg/dL [facility] Interpretation and review of laboratory results Abnormal [facility] POC Sample Type CAPBL [facility] HSV Culture and Typingon HSV CULT/TYPING Comment Normal . [facility] Comment on above: Result Comment: Jigar Middleton Herpes simplex virus isolated. Performed By: #### L 800.7510, L7000.8600, L3100.5900 ####[facility] [id number] [place], [place], [id number] MICHELINE Virus Whole Blood DNA, PC Iain 01-14-2024 JCV WB DNA PCR Normal [facility] Comment on above: Result Comment: TEST RESULTS LIMITSJC Virus DNA,PCR (WholeBlood) Negative Negative No JCV DNA detectedThis test was developed and its performance characteristicsdetermined by [employer]. It has not been cleared or approvedby the Food and Drug Administration. The FDA has determinedthat such clearance or approval is not necessary. ___ TESTING PERFORMED AT [facility]. ORIGINAL REPORT ON FILE IN LAB CONTAINS ADDITIONAL TEST SITE INFORMATION. Performed By: #### L 800.7510, L7000.8600, L3100.5900 ####[facility] [id number] [place], [place], [address] MAGNESIUMon 01-14-2024 Interpretation and review of laboratory results Normal [facility] Magnesium [Mass/Vol] 2.2 mg/dL 1.6 - 2 .6 mg/dL [facility] Magnesium [Mass/Vol] 2.2 mg/dL Normal 1.6-2.[address] [facility] Comment on above: Performed By: #### C 7C, MGO #### [facility] (DEFAULT) [address] [place] [address] No Panel Informationon 01-13 Interpretation and review of laboratory results Abnormal [facility] POC Sample Type CAPBL [facility] BASIC METABOLIC PANELon 12-16 Anion gap [Moles/Vol] 13 mmol/L 7 - 17 mmol/L [facility] Calcium [Mass/Vol] 9.5 mg/dL 8.6 - 10. 5 mg/dL [facility] Chloride [Moles/Vol] 105 mmol/L 98 - 10 8 mmol/L [facility] CO2 [Moles/Vol] 25 mmol/L 21 - 31 mmol/L [facility] Creatinine [Mass/Vol] 0.93 mg/dL 0.50 - 1.20 mg/dL [facility] eGFR, CKD-EPI, Female 64 - PINF [facility] Glucose [Mass/Vol] 159 mg/dL High 70 - 99 mg/dL [facility] Osmolality Calc [Osmolality] 297 [facility] Potassium [Moles/Vol] 3.9 mmol/L 3.5 - 5.0 mmol/L [facility] Sodium [Moles/Vol] 139 mmol/L 135 - 145 mmol/L [facility] Urea nitrogen [Mass/Vol] 20 mg/dL 7 - 25 mg/dL [facility] Urea nitrogen/Creatinine [Mass ratio] 22 mg/mg [facility] Anion gap [Moles/Vol] 13 mmol/L Normal 7-17 [facility] Comment on above: Performed By: #### C 7C, MGO #### [facility] (DEFAULT) [address] [place] [address] Calcium [Mass/Vol] 9.5 mg/dL Normal 8.6-10.5 [facility] Comment on above: Performed By: #### José 7C, MGO #### [facility] (DEFAULT) [address] [place] [address] Chloride [Moles/Vol] 105 mmol/L Normal 98-[address] [facility] Comment on above: Performed By: #### José 7C, MGO #### [facility] (DEFAULT) [address] [place] [address]96 CO2 [Moles/Vol] 25 mmol/L Normal 21-31 [facility] Comment on above: Performed By: #### José 7C, MGO #### [facility] (DEFAULT) [address] [place] [address]444 Creatinine [Mass/Vol] 0.93 mg/dL Normal 0.50-1.20 [facility] Comment on above: Performed By: #### José 7C, MGO #### [facility] (DEFAULT) [address] [place] [address] 67850 GFR/1.73 sq M.predicted among non-blacks MDRD (S/P/Bld) [Vol rate/Area] 64 mL/min/{1.73_m2} Normal >=[address] [facility] Comment on above: Result Comment: Repo rted eGFR is based on the CKD-EPI 2020 equation using creatinine, age, and sex. Performed By: #### José 7C, MGO #### [facility] (DEFAULT) [address] [place] [address]449 Glucose [Mass/Vol] 159 mg/dL High 70-99 [facility] Comment on above: Performed By: #### José 7C, MGO #### [facility] (DEFAULT) [address] [place] [address]777 Osmolality [Osmolality] 297 mosm/kg Normal 278-[address] [facility] Comment on above: Performed By: #### José 7C, MGO #### [facility] (DEFAULT) [address] [place] [address] 32970 Potassium [Moles/Vol] 3.9 mmol/L Normal 3.5-5.0 [facility] Comment on above: Performed By: #### C 7C, MGO #### [facility] (DEFAULT) [address] [place] [address] Sodium [Moles/Vol] 139 mmol/L Normal 135-145 [facility] Comment on above: Performed By: #### C 7C, MGO #### [facility] (DEFAULT) [address] [place] [address] 38877 Urea nitrogen [Mass/Vol] 20 mg/dL Normal 7-[address] [facility] Comment on above: Performed By: #### C 7C, MGO #### [facility] (DEFAULT) [address] [place] [address] 74970 Urea nitrogen/Creatinine [Mass ratio] 22 mg/mg Normal [facility] Comment on above: Performed By: #### C 7C, MGO #### [facility] (DEFAULT) [address] [place] [address] 96560 Bacteria identified Cx Nom ( Body fld)Ordered By: Lina Guaman on 01-13-2024 Bacteria identified Cx Nom (Unsp spec) NO GROWTH DAY 2 OF 2 [facility] Microscopic observation Other stain Nom (Unsp spec) Cytocentrifuge preparation [facility] Microscopic observation Other stain Nom (Unsp spec) Neutrophils, Rare [facility] Microscopic observation Other stain Nom (Unsp spec) Mononuclear cells present [facility] Microscopic observation Other stain Nom (Unsp spec) No organisms seen [facility] CBC,PLATELETSon 01-13-2024 Erythrocyte distribution width (RBC) [Ratio] 12.5 % 10.8 - 14.9 % [facility] Hematocrit (Bld) [Volume fraction] 39.2 % 34.9 - 44.3 % [facility] Hemoglobin (Bld) [Mass/Vol] 12.3 g/dL 11.4 - 15.2 g/dL [facility] Interpretation and review of laboratory results Normal [facility] MCH (RBC) [Entitic mass] 27.6 pg 25.9 - 33.9 pg [facility] MCHC (RBC) [Mass/Vol] 31.4 g/dL 31.4 - 35.9 g/dL [facility] MCV (RBC) [Entitic vol] 88.1 fL 79.6 - 97.7 fL [facility] Platelet mean volume (Bld) [Entitic vol] 10.5 fL 8.5 - 12.2 fL [facility] Platelets (Bld) [#/Vol] 254 10*3/uL 150 - 393 K/uL [facility] RBC (Bld) [#/Vol] 4.45 10*6/uL [facility] WBC (Bld) [#/Vol] 8.81 10*3/uL 3.99 - 11. 19 K/uL [facility] Hematocrit (Bld) [Volume fraction] 39.2 % Normal 34.9-44.[address] [facility] Comment on above: Performed By: #### B FLD #### [facility] (DEFAULT) [address] [place] [address] Hemoglobin (Bld) [Mass/Vol] 12.3 g/dL Normal 11.4-15.[address] [facility] Comment on above: Performed By: #### B FLD #### [facility] (DEFAULT) [address] [place] [address] MCV (RBC) [Entitic vol] 88.1 fL Normal 79.6-97.[address] [facility] Comment on above: Performed By: #### B FLD #### [facility] (DEFAULT) [address] [place] [address] Mean Cell Hgb 27.6 pg Normal 25.9-33.[address] [facility] Comment on above: Performed By: #### B FLD #### [facility] (DEFAULT) [address] [address] Mean Cell Hgb Conc 31.4 g/dL Normal 31.4-35.9 [facility] Comment on above: Performed By: #### B FLD #### [facility] (DEFAULT) [address] [address] Platelet mean volume (Bld) [Entitic vol] 10.5 fL Normal 8.5-12.[address] [facility] Comment on above: Performed By: #### B FLD #### [facility] (DEFAULT) [address] [address] Platelets (Bld) [#/Vol] 254 10*3/uL Normal 150-[address] [facility] Comment on above: Performed By: #### B FLD #### [place] (DEFAULT) [address] [address] RBC (Bld) [#/Vol] 4.45 10*6/uL Normal 3.91-5.[address] [facility] Comment on above: Performed By: #### B FLD #### [facility] (DEFAULT) [address] [address] RBC Distribution 12.5 % Normal 10.8-14.9 [facility] Comment on above: Performed By: #### B FLD #### [facility] (DEFAULT) [address] [place] [address]50 WBC (Bld) [#/Vol] 8.81 10*3/uL Normal 3.99-11.[address] [facility] Comment on above: Performed By: #### B FLD #### [facility] (DEFAULT) [address] [address] Culture, Blood (WB)on 2023 CUB No growth in [address] [facility] Comment on above: Performed By: #### L 500.3400, M200.1000, L503.6005, L503.5510 ####[facility] [id number] [place], [place], [address] Performed By: #### M 200.1000 ####[facility] [id number] [facility] [place], [address] GLUCOSE POCon 01-13-2024 Glucose [Mass/Vol] 350 mg/dL High 70 - 99 mg/dL [facility] Interpretation and review of laboratory results Abnormal [facility] POC Sample Type CAPBL [facility] Glucose [Mass/Vol] 339 mg/dL High 70 - 99 mg/dL [facility] Interpretation and review of laboratory results Abnormal [facility] POC Sample Type CAPBL [facility] Glucose [Mass/Vol] 143 mg/dL High 70 - 99 mg/dL [facility] Glucose [Mass/Vol] 179 mg/dL High 70 - 99 mg/dL [facility] Glucose [Mass/Vol] 264 mg/dL High 70 - 99 mg/dL [facility] Interpretation and review of laboratory results Abnormal [facility] POC Sample Type CAPBL [facility] LYME DISEASE BY PCR, FLUIDon 01-13-2024 B. burgdorferi oppA2 gene JAYLIN+non-probe Ql (Unsp spec) Negative Negative [facility] B. garinii+afzelii oppA2 gene JAYLIN+non-probe Ql (Unsp spec) Negative Negative [facility] B. mayonii oppA2 gene JAYLIN+non-probe Ql (Unsp spec) Negative Negative [facility] Microbiologist review Roger (Unsp spec) [Interp] SEE COMMENTS [facility] Specimen source Nom (Unsp spec) [facility] MAGNESIUMon 01-13-2024 Magnesium [Mass/Vol] 1.4 mg/dL Low 1.6 - 2 .6 mg/dL [facility] Magnesium [Mass/Vol] 1.4 mg/dL Low 1.6-2.[address] [facility] Comment on above: Performed By: #### C 7C, MGO #### [facility] (DEFAULT) [address] [place] [address] No Panel Informationon 01-12 Interpretation and review of laboratory results Abnormal [facility] POC Sample Type CAPBL [facility] Interpretation and review of laboratory results Abnormal [facility] VANCOMYCIN LEVEL, TROUGH (DE E DRUG LEVEL)on 01-13-2024 Interpretation and review of laboratory results Normal [facility] Vancomycin trough [Mass/Vol] 13.6 ug/mL Therapeutic Range: 10.0-20.0 mcg/mL mcg/mL [facility] Vancomycin, Trough 13.6 mcg/mL Normal Therapeut ic Range: 10.0-20.0 mcg/mL [facility] Comment on above: Order Comment: Pleas e draw level at specified interval PRIOR to next dose. Performed By: #### M GIOVANNI, CHM7, HFP #### [facility] (DEFAULT) [address] [address] Basic Metabolic Profile (BMP )on 01-12-2024 BUN Normal 7-18 [facility] Comment on above: Result Comment: Canc elled via OM: Order cancelled - Patient discharged Performed By: #### L 500.2500, L100.0100 ####[facility] [address] [place], [address] BUN/CRE Normal 10-20 [facility] Comment on above: Result Comment: Canc elled via OM: Order cancelled - Patient discharged Performed By: #### L 500.2500, L100.0100 ####[facility] [address] [place], [address] CA,Total Normal 8.5-10.1 [facility] Comment on above: Result Comment: Canc elled via OM: Order cancelled - Patient discharged Performed By: #### L 500.2500, L100.0100 ####[facility] [address] [place], [address] CL Normal 98-107 [facility] Comment on above: Result Comment: Canc elled via OM: Order cancelled - Patient discharged Performed By: #### L 500.2500, L100.0100 ####[facility] [address] [place], [address] CO2 Normal 21.0-32.0 [facility] Comment on above: Result Comment: Canc elled via OM: Order cancelled - Patient discharged Performed By: #### L 500.2500, L100.0100 ####[facility] [address] [place], [address] CREAT,SERUM Normal 0.55-1.02 [facility] Comment on above: Result Comment: Canc elled via OM: Order cancelled - Patient discharged Performed By: #### L 500.2500, L100.0100 ####[facility] [address] [place], [address] EST GFR Normal >60 [facility] Comment on above: Result Comment: Canc elled via OM: Order cancelled - Patient discharged Performed By: #### L 500.2500, L100.0100 ####[facility] [address] [place], [address] EST GFR - AA Normal >60 [facility] Comment on above: Result Comment: Canc elled via OM: Order cancelled - Patient discharged Performed By: #### L 500.2500, L100.0100 ####[facility] [address] [place], [address] GAP Normal 5-15 [facility] Comment on above: Result Comment: Canc elled via OM: Order cancelled - Patient discharged Performed By: #### L 500.2500, L100.0100 ####[facility] [address] [place], [address] GLU Normal 74-106 [facility] Comment on above: Result Comment: Canc elled via OM: Order cancelled - Patient discharged Performed By: #### L 500.2500, L100.0100 ####[facility] [address] [place], [address] Potassium Normal 3.5-5.1 [facility] Comment on above: Result Comment: Canc elled via OM: Order cancelled - Patient discharged Performed By: #### L 500.2500, L100.0100 ####[facility] [address] [place], [address] Basic Metabolic Profile (BMP) Normal 136-145 [facility] Comment on above: Result Comment: Canc elled via OM: Order cancelled - Patient discharged Performed By: #### L 500.2500, L100.0100 ####[facility] [address] [place], [address] CBC W/Diff, Automatedon 06-2 Absolute Neut Normal 2.0-7.7 [facility] Comment on above: Result Comment: Canc elled via OM: Order cancelled - Patient discharged Performed By: #### L 500.2500, L100.0100 ####[facility] [address] [place], [address] HCT Normal 37-47 [facility] Comment on above: Result Comment: Canc elled via OM: Order cancelled - Patient discharged Performed By: #### L 500.2500, L100.0100 ####[facility] [address] [place], [address] HGB Normal 12.0-15.0 [facility] Comment on above: Result Comment: Canc elled via OM: Order cancelled - Patient discharged Performed By: #### L 500.2500, L100.0100 ####[facility] [address] [place], [address] MCH Normal 27.0-32.0 [facility] Comment on above: Result Comment: Canc elled via OM: Order cancelled - Patient discharged Performed By: #### L 500.2500, L100.0100 ####[facility] [address] [place], [address] MCHC Normal 32-36 [facility] Comment on above: Result Comment: Canc elled via OM: Order cancelled - Patient discharged Performed By: #### L 500.2500, L100.0100 ####[facility] [address] [place], [address] MCV Normal 81-99 [facility] Comment on above: Result Comment: Canc elled via OM: Order cancelled - Patient discharged Performed By: #### L 500.2500, L100.0100 ####[facility] [address] [place], [address] NEUT% Normal 47-70 [facility] Comment on above: Result Comment: Canc elled via OM: Order cancelled - Patient discharged Performed By: #### L 500.2500, L100.0100 ####[facility] [address] [place], [address] PLT Normal 150-450 [facility] Comment on above: Result Comment: Canc elled via OM: Order cancelled - Patient discharged Performed By: #### L 500.2500, L100.0100 ####[facility] [address] [place], [address] RBC Normal 4.2-5.4 [facility] Comment on above: Result Comment: Canc elled via OM: Order cancelled - Patient discharged Performed By: #### L 500.2500, L100.0100 ####[facility] [address] [place], [address] RDW CV Normal 11.6-14.6 [facility] Comment on above: Result Comment: Canc elled via OM: Order cancelled - Patient discharged Performed By: #### L 500.2500, L100.0100 ####[facility] [address] [place], [address] RDW SD Normal 35.1-43.9 [facility] Comment on above: Result Comment: Canc elled via OM: Order cancelled - Patient discharged Performed By: #### L 500.2500, L100.0100 ####[facility] [address] [place], [address] WBC Normal 4.4-11.0 [facility] Comment on above: Result Comment: Canc elled via OM: Order cancelled - Patient discharged Performed By: #### L 500.2500, L100.0100 ####[facility] [address] [place], [address] CBC,PLATELETSon 01-12-2024 Erythrocyte distribution width (RBC) [Ratio] 12.6 % 10.8 - 14.9 % [facility] Hematocrit (Bld) [Volume fraction] 36.9 % 34.9 - 44.3 % [facility] Hemoglobin (Bld) [Mass/Vol] 11.6 g/dL 11.4 - 15.2 g/dL [facility] Interpretation and review of laboratory results Normal [facility] MCH (RBC) [Entitic mass] 27.4 pg 25.9 - 33.9 pg [facility] MCHC (RBC) [Mass/Vol] 31.4 g/dL 31.4 - 35.9 g/dL [facility] MCV (RBC) [Entitic vol] 87.2 fL 79.6 - 97.7 fL [facility] Platelet mean volume (Bld) [Entitic vol] 11.4 fL 8.5 - 12.2 fL [facility] Platelets (Bld) [#/Vol] 273 10*3/uL 150 - 393 K/uL [facility] RBC (Bld) [#/Vol] 4.23 10*6/uL [facility] WBC (Bld) [#/Vol] 7.52 10*3/uL 3.99 - 11. 19 K/uL [facility] Hematocrit (Bld) [Volume fraction] 36.9 % Normal 34.9-44.[address] [facility] Comment on above: Performed By: #### S URGP #### [facility] (DEFAULT) [address] [address] Hemoglobin (Bld) [Mass/Vol] 11.6 g/dL Normal 11.4-15.[address] [facility] Comment on above: Performed By: #### S URGP #### [facility] (DEFAULT) [address] [place] [address] MCV (RBC) [Entitic vol] 87.2 fL Normal 79.6-97.[address] [facility] Comment on above: Performed By: #### S URGP #### [facility] (DEFAULT) [address] [address] Mean Cell Hgb 27.4 pg Normal 25.9-33.[address] [facility] Comment on above: Performed By: #### S URGP #### [facility] (DEFAULT) [address] [place] [address] Mean Cell Hgb Conc 31.4 g/dL Normal 31.4-35.9 [facility] Comment on above: Performed By: #### S URGP #### [facility] (DEFAULT) [address] [address] Platelet mean volume (Bld) [Entitic vol] 11.4 fL Normal 8.5-12.[address] [facility] Comment on above: Performed By: #### S URGP #### [facility] (DEFAULT) [address] [place] [address] Platelets (Bld) [#/Vol] 273 10*3/uL Normal 150-[address] [facility] Comment on above: Performed By: #### S URGP #### [facility] (DEFAULT) [address] [place] [address] RBC (Bld) [#/Vol] 4.23 10*6/uL Normal 3.91-5.[address] [facility] Comment on above: Performed By: #### S URGP #### [facility] (DEFAULT) [address] [place] [address] RBC Distribution 12.6 % Normal 10.8-14.9 [facility] Comment on above: Performed By: #### S URGP #### [facility] (DEFAULT) [address] [place] [address] WBC (Bld) [#/Vol] 7.52 10*3/uL Normal 3.99-11.[address] [facility] Comment on above: Performed By: #### S URGP #### [facility] (DEFAULT) [address] [place] [address] CHEM 7 (LYTES,BUN,CREA,GLUC) Ordered By: Rodrigue Jeffries on 01-12-2024 Anion gap [Moles/Vol] 17 mmol/L 7 - 17 mmol/L [facility] Chloride [Moles/Vol] 106 mmol/L 98 - 10 8 mmol/L [facility] CO2 [Moles/Vol] 21 mmol/L 21 - 31 mmol/L [facility] Creatinine [Mass/Vol] 0.98 mg/dL 0.50 - 1.20 mg/dL [facility] eGFR, CKD-EPI, Female 60 - PINF [facility] Glucose [Mass/Vol] 215 mg/dL High 70 - 99 mg/dL [facility] Interpretation and review of laboratory results Abnormal [facility] Osmolality Calc [Osmolality] 303 [facility] Potassium [Moles/Vol] 4.1 mmol/L 3.5 - 5.0 mmol/L [facility] Sodium [Moles/Vol] 140 mmol/L 135 - 145 mmol/L [facility] Urea nitrogen [Mass/Vol] 21 mg/dL 7 - 25 mg/dL [facility] Urea nitrogen/Creatinine [Mass ratio] 21 mg/mg [facility] CHEM 7 (LYTES,BUN,CREA,GLUC) on 01-12-2024 Anion gap [Moles/Vol] 17 mmol/L Normal 7-17 [facility] Comment on above: Performed By: #### LYN MALONEY, HFP #### [facility] (DEFAULT) [address] [place] [address] Chloride [Moles/Vol] 106 mmol/L Normal 98-[address] [facility] Comment on above: Performed By: #### LYN MALONEY, HFP #### [facility] (DEFAULT) [address] [place] [address] CO2 [Moles/Vol] 21 mmol/L Normal 21-31 [facility] Comment on above: Performed By: #### LYN MALONEY, HFP #### [facility] (DEFAULT) [address] [place] [address] Creatinine [Mass/Vol] 0.98 mg/dL Normal 0.50-1.20 [facility] Comment on above: Performed By: #### LYN MALONEY, HFP #### [facility] (DEFAULT) [address] [place] [address] GFR/1.73 sq M.predicted among non-blacks MDRD (S/P/Bld) [Vol rate/Area] 60 mL/min/{1.73_m2} Normal >=[address] [facility] Comment on above: Result Comment: Repo rted eGFR is based on the CKD-EPI 2020 equation using creatinine, age, and sex. Performed By: #### LYN MALONEY, HFP #### [facility] (DEFAULT) [address] [place] [address] Glucose [Mass/Vol] 215 mg/dL High 70-99 [facility] Comment on above: Performed By: #### LYN MALONEY, HFP #### [facility] (DEFAULT) [address] [place] [address] Osmolality [Osmolality] 303 mosm/kg Normal 278-[address] [facility] Comment on above: Performed By: #### LYN MALONEY, HFP #### [facility] (DEFAULT) [address] [place] [address] Potassium [Moles/Vol] 4.1 mmol/L Normal 3.5-5.0 [facility] Comment on above: Performed By: #### LYN MALONEY, HFP #### [facility] (DEFAULT) [address] [place] [address] Sodium [Moles/Vol] 140 mmol/L Normal 135-145 [facility] Comment on above: Performed By: #### LYN MALONEY, HFP #### [facility] (DEFAULT) [address] [place] [address] Urea nitrogen [Mass/Vol] 21 mg/dL Normal 7-[address] [facility] Comment on above: Performed By: #### LYN MALONEY, HFP #### [facility] (DEFAULT) [address] [place] [address] Urea nitrogen/Creatinine [Mass ratio] 21 mg/mg Normal [facility] Comment on above: Performed By: #### LYN MALONEY, HFP #### [facility] (DEFAULT) [address] [place] [address] EXTRA STERILEon 01-12-2024 [facility] GLUCOSE POCon 01-12-2024 Glucose [Mass/Vol] 213 mg/dL High 70 - 99 mg/dL [facility] Interpretation and review of laboratory results Abnormal [facility] POC Sample Type CAPBL [facility] Glucose [Mass/Vol] 198 mg/dL High 70 - 99 mg/dL [facility] Interpretation and review of laboratory results Abnormal [facility] POC Sample Type CAPBL [facility] Glucose [Mass/Vol] 278 mg/dL High 70 - 99 mg/dL [facility] Interpretation and review of laboratory results Abnormal [facility] POC Sample Type CAPBL [facility] Glucose [Mass/Vol] 273 mg/dL High 70 - 99 mg/dL [facility] Glucose [Mass/Vol] 243 mg/dL High 70 - 99 mg/dL [facility] Glucose [Mass/Vol] 230 mg/dL High 70 - 99 mg/dL [facility] HEPATIC FUNCTION PANELon Albumin [Mass/Vol] 3.4 g/dL Low 3.5 - 5.0 g/dL [facility] ALP [Catalytic activity/Vol] 91 U/L 32 - 126 U/L [facility] ALT [Catalytic activity/Vol] 8 U/L Low 9 - 48 U/L [facility] AST [Catalytic activity/Vol] 20 U/L 10 - 39 U/L [facility] Bilirubin [Mass/Vol] 0.4 mg/dL NINF - 1.5 mg/dL [facility] Bilirubin.direct [Mass/Vol] 0.1 mg/dL NINF - 0.3 mg/dL [facility] Interpretation and review of laboratory results Abnormal [facility] Protein [Mass/Vol] 6.3 g/dL Low 6.4 - 8.3 g/dL [facility] Albumin [Mass/Vol] 3.4 g/dL Low 3.5-5.0 [facility] Comment on above: Performed By: #### M GIOVANNI, CHM7, HFP #### [facility] (DEFAULT) [address] [place] [address] ALP [Catalytic activity/Vol] 91 U/L Normal 32-[address] [facility] Comment on above: Performed By: #### LYN MALONEY, HFP #### [facility] (DEFAULT) [address] [place] [address] ALT [Catalytic activity/Vol] 8 U/L Low 9-[address] [facility] Comment on above: Performed By: #### LYN MALONEY, HFP #### [facility] (DEFAULT) [address] [place] [address] AST [Catalytic activity/Vol] 20 U/L Normal 10-[address] [facility] Comment on above: Performed By: #### LYN MALONEY, HFP #### [facility] (DEFAULT) [address] [place] [address] Bilirubin [Mass/Vol] 0.4 mg/dL Normal <1.[address] [facility] Comment on above: Performed By: #### LYN MALONEY, HFP #### [facility] (DEFAULT) [address] [place] [address] Bilirubin.indirect [Mass/Vol] 0.1 mg/dL Normal <0.[address] [facility] Comment on above: Performed By: #### LYN MALONEY, HFP #### [facility] (DEFAULT) [address] [place] [address] Protein [Mass/Vol] 6.3 g/dL Low 6.4-8.3 [facility] Comment on above: Performed By: #### LYN MALONEY, HFP #### [facility] (DEFAULT) [address] [place] [address] MAGNESIUMon 01-12-2024 Interpretation and review of laboratory results Abnormal [facility] Magnesium [Mass/Vol] 1.4 mg/dL Low 1.6 - 2 .6 mg/dL [facility] Magnesium [Mass/Vol] 1.4 mg/dL Low 1.6-2.[address] [facility] Comment on above: Performed By: #### M GO, CHM7, HFP #### [facility] (DEFAULT) [address] [place] [address] No Panel Informationon 01-11 Interpretation and review of laboratory results Abnormal [facility] POC Sample Type CAPBL [facility] BODY FLUID CULTURE AND DIREC T SMEARon 01-11-2024 Bacteria identified Cx Nom (Unsp spec) NO GROWTH DAY 2 OF 2 Normal [facility] Comment on above: Performed By: #### B FLD #### [facility] (DEFAULT) [address] [address] Microscopic observation Gram stain Nom (Unsp spec) Normal [facility] Comment on above: Result Comment: Cyto centrifuge preparation Neutrophils, Rare Mononuclear cells present No organisms seen Performed By: #### B FLD #### [facility] (DEFAULT) [address] [place] [address] Basic Metabolic Profile (BMP )on 01-11-2024 BUN/CRE 20.6 RATIO High 10-20 [facility] Comment on above: Performed By: #### L 500.2500, L100.0100 ####[facility] [address] [place], [address] CA,Total 10.0 mg/dL Normal 8.5-10.1 [facility] Comment on above: Performed By: #### L 500.2500, L100.0100 ####[facility] [address] [place], [address] Chloride [Moles/Vol] 102 mmol/L Normal 98-[address] [facility] Comment on above: Performed By: #### L 500.2500, L100.0100 ####[facility] [address] [place], [address] CO2 [Moles/Vol] 22.0 mmol/L Normal 21.0-32.0 [facility] Comment on above: Performed By: #### L 500.2500, L100.0100 ####[facility] [address] [place], [address] Creatinine [Mass/Vol] 1.07 mg/dL High 0.55-1.02 [facility] Comment on above: Result Comment: The validity of the calculated GFR GFRAA in patients over70 years has not been determined. Clinical correlation isessential. Performed By: #### L 500.2500, L100.0100 ####[facility] [address] [place], [address] ECRCL 41.87 ml/min Normal [facility] Comment on above: Performed By: #### L 500.2500, L100.0100 ####[facility] [address] [place], [address] EST GFR - AA 64 mL/min Normal >60 [facility] Comment on above: Result Comment: Afri can Mongolian GFR Calc Performed By: #### L 500.2500, L100.0100 ####[facility] [address] [place], [address] GAP 12 Normal 5-15 [facility] Comment on above: Performed By: #### L 500.2500, L100.0100 ####[facility] [address] [place], [address] GFR/1.73 sq M.predicted among non-blacks MDRD (S/P/Bld) [Vol rate/Area] 53 mL/min/{1.73_m2} Low >60 [facility] Comment on above: Result Comment: Non- GFR Calc Performed By: #### L 500.2500, L100.0100 ####[facility] [address] [place], [address] Glucose [Mass/Vol] 274 mg/dL High 74-106 [facility] Comment on above: Result Comment: Gluc ose result greater than or equal to 200 mg/dLsuggests DIABETES MELLITUS per A.D.A. criteria. Performed By: #### L 500.2500, L100.0100 ####[facility] [address] [place], [address] Potassium [Moles/Vol] 3.5 mmol/L Normal 3.5-5.1 [facility] Comment on above: Performed By: #### L 500.2500, L100.0100 ####[facility] [address] [place], [address] Sodium [Moles/Vol] 136 mmol/L Normal 136-145 [facility] Comment on above: Performed By: #### L 500.2500, L100.0100 ####[facility] [address] [place], [address] Urea nitrogen [Mass/Vol] 22 mg/dL High 7-18 [facility] Comment on above: Performed By: #### L 500.2500, L100.0100 ####[facility] [address] [place], [address] Bedside Glucoseon 01-11-2024 FINGERSTICK GLU 267 mg/dL High 74-106 [facility] Comment on above: Result Comment: ADAL GOODEN OF PATIENT CARE PER NURSING PROTOCOL Performed By: #### L 501.080 ####[facility] [address] [place], [address] CBC AND ELECTRONIC DIFFOrder ed By: Aparna Amezcua on 01-11-2024 Basophils (Bld) [#/Vol] 0.06 10*3/uL 0.00 - 0.15 [facility] [facility] Bas[facility]/100 [facility]Bld) 0.7 % [facility] Differential cell count method Nom (Bld) Electronic Differential [facility] Eosinophils (Bld) [#/Vol] K/uL 0.00 - 0.42 K/uL [facility] Eosinophils/100 WBC (Bld) 0.3 % [facility] Erythrocyte distribution width (RBC) [Ratio] 12.5 % 10.8 - 14.9 % [facility] Hematocrit (Bld) [Volume fraction] 38.5 % 34.9 - 44.3 % [facility] Hemoglobin (Bld) [Mass/Vol] 12.4 g/dL 11.4 - 15.2 g/dL [facility] Immature granulocytes (Bld) [#/Vol] K/uL NINF - 0.08 K/uL [facility] Immature granulocytes/100 WBC (Bld) 0.2 % [facility] Interpretation and review of laboratory results Abnormal [facility] Lymphocytes (Bld) [#/Vol] 1.06 10*3/uL Low 1.16 - 3.51 K/uL [facility] Lymphocytes/100 WBC (Bld) 11.7 % [facility] MCH (RBC) [Entitic mass] 27.9 pg 25.9 - 33.9 pg [facility] MCHC (RBC) [Mass/Vol] 32.2 g/dL 31.4 - 35.9 g/dL [facility] MCV (RBC) [Entitic vol] 86.7 fL 79.6 - 97.7 fL [facility] Monocytes (Bld) [#/Vol] 0.62 10*3/uL 0.22 - 0.87 K/uL [facility] Monocytes/100 WBC (Bld) 6.9 % [facility] Neutrophils (Bld) [#/Vol] 7.24 10*3/uL 1.64 - 7.28 K/uL [facility] Nucleated RBC/100 WBC (Bld) [Ratio] 0.0 % [facility] Platelet mean volume (Bld) [Entitic vol] 10.8 fL 8.5 - 12.2 fL [facility] Platelets (Bld) [#/Vol] 274 10*3/uL 150 - 393 K/uL [facility] RBC (Bld) [#/Vol] 4.44 10*6/uL [facility] Segmented neutrophils/100 WBC (Bld) 80.2 % [facility] WBC (Bld) [#/Vol] 9.03 10*3/uL 3.99 - 11. 19 K/uL [facility] CBC AND ELECTRONIC DIFFon Abs Eos Auto < Normal 0.00-0.[address] [facility] Comment on above: Performed By: #### S URGP #### [facility] (DEFAULT) [address] [place] [address] Basophils (Bld) [#/Vol] 0.06 10*3/uL Normal 0.00-0.[address] [facility] Comment on above: Performed By: #### S URGP #### [facility] (DEFAULT) [address] [place] [address] Basophils/100 WBC (Bld) 0.7 % Normal [facility] Comment on above: Performed By: #### S URGP #### [facility] (DEFAULT) [address] [place] [address] DIFF STATUS Electronic Differential Normal [facility] Comment on above: Performed By: #### S URGP #### [facility] (DEFAULT) [address] [place] [address] Eosinophils/100 WBC (Bld) 0.3 % Normal [facility] Comment on above: Performed By: #### S URGP #### [facility] (DEFAULT) [address] [address] Hematocrit (Bld) [Volume fraction] 38.5 % Normal 34.9-44.[address] [facility] Comment on above: Performed By: #### S URGP #### [facility] (DEFAULT) [address] [address] Hemoglobin (Bld) [Mass/Vol] 12.4 g/dL Normal 11.4-15.[address] [facility] Comment on above: Performed By: #### S URGP #### [facility] (DEFAULT) [address] [place] [address] Immature Grans % 0.2 % Normal [facility] Comment on above: Performed By: #### S URGP #### [facility] (DEFAULT) [address] [address] Immature Grans Absolute < Normal <=0.[address] [facility] Comment on above: Performed By: #### S URGP #### [facility] (DEFAULT) [address] [address] Lymphocytes (Bld) [#/Vol] 1.06 10*3/uL Low 1.16-3.[address] [facility] Comment on above: Performed By: #### S URGP #### [facility] (DEFAULT) [address] [address] Lymphocytes/100 WBC (Bld) 11.7 % Normal [facility] Comment on above: Performed By: #### S URGP #### [facility] (DEFAULT) [address] [address] MCV (RBC) [Entitic vol] 86.7 fL Normal 79.6-97.[address] [facility] Comment on above: Performed By: #### S URGP #### [facility] (DEFAULT) [address] [address] Mean Cell Hgb 27.9 pg Normal 25.9-33.[address] [facility] Comment on above: Performed By: #### S URGP #### [facility] (DEFAULT) [address] [address] Mean Cell Hgb Conc 32.2 g/dL Normal 31.4-35.9 [facility] Comment on above: Performed By: #### S URGP #### [facility] (DEFAULT) [address] [place] [address] Monocytes (Bld) [#/Vol] 0.62 10*3/uL Normal 0.22-0.[address] [facility] Comment on above: Performed By: #### S URGP #### [facility] (DEFAULT) [address] [place] [address] Monocytes/100 WBC (Bld) 6.9 % Normal [facility] Comment on above: Performed By: #### S URGP #### [facility] (DEFAULT) [address] [place] [address] Nucleated RBC 0.0 /100 WBC Normal <=0.2 [facility] Comment on above: Performed By: #### S URGP #### [facility] (DEFAULT) [address] [place] [address] Platelet mean volume (Bld) [Entitic vol] 10.8 fL Normal 8.5-12.[address] [facility] Comment on above: Performed By: #### S URGP #### [facility] (DEFAULT) [address] [address] Platelets (Bld) [#/Vol] 274 10*3/uL Normal 150-[address] [facility] Comment on above: Performed By: #### S URGP #### [facility] (DEFAULT) [address] [address] RBC (Bld) [#/Vol] 4.44 10*6/uL Normal 3.91-5.[address] [facility] Comment on above: Performed By: #### S URGP #### [facility] (DEFAULT) [address] [place] [address]35 RBC Distribution 12.5 % Normal 10.8-14.9 [facility] Comment on above: Performed By: #### S URGP #### [facility] (DEFAULT) [address] [address] Segs + Bands Auto 80.2 % Normal [facility] Comment on above: Performed By: #### S URGP #### [facility] (DEFAULT) [address] [address] Segs + Bands,Absolute Auto 7.24 K/uL Normal 1.64-7.[address] [facility] Comment on above: Performed By: #### S URGP #### [facility] (DEFAULT) [address] [place] [address] WBC (Bld) [#/Vol] 9.03 10*3/uL Normal 3.99-11.[address] [facility] Comment on above: Performed By: #### S URGP #### [facility] (DEFAULT) [address] [place] [address] CBC W/Diff, Automatedon 12-15 Absolute Lymph 1.26 X10 3/uL Normal 0.83-4.51 [facility] Comment on above: Performed By: #### L 500.2500, L100.0100 ####[facility] [address] [place], [address] Absolute Neut 9.3 X10 3/uL High 2.0-7.7 [facility] Comment on above: Performed By: #### L 500.2500, L100.0100 ####[facility] [address] [place], [address] Basophils/100 WBC (Bld) 0.6 % Normal 0-1 [facility] Comment on above: Performed By: #### L 500.2500, L100.0100 ####[facility] [id number] [place], [address] Eosinophils/100 WBC (Bld) 0.7 % Normal 0-5 [facility] Comment on above: Performed By: #### L 500.2500, L100.0100 ####[facility] [address] [place], [address] Erythrocyte distribution width (RBC) [Ratio] 12.3 % Normal 11.6-14.6 [facility] Comment on above: Performed By: #### L 500.2500, L100.0100 ####[facility] [id number] [place], [address] Hematocrit (Bld) [Volume fraction] 39.0 % Normal 37-47 [facility] Comment on above: Performed By: #### L 500.2500, L100.0100 ####[facility] [id number] [place], [address] Hemoglobin (Bld) [Mass/Vol] 12.4 g/dL Normal 12.0-15.0 [facility] Comment on above: Performed By: #### L 500.2500, L100.0100 ####[facility] [address] [place], [address] IG% 0.300 Normal 0.0-0.9 [facility] Comment on above: Result Comment: IG% - Immature Granulocytes (promyelocytes, myelocytes andmetamyelocytes) > 1% indicates that a LEFT SHIFT is Present. Performed By: #### L 500.2500, L100.0100 ####[facility] [address] [place], [address] Lymphocytes/100 WBC (Bld) 10.9 % Low 19-41 [facility] Comment on above: Performed By: #### L 500.2500, L100.0100 ####[facility] [address] [place], [address] MCH (RBC) [Entitic mass] 27.8 pg Normal 27.0-32.0 [facility] Comment on above: Performed By: #### L 500.2500, L100.0100 ####[facility] [address] [place], [address] MCHC (RBC) [Mass/Vol] 31.8 g/dL Low 32-36 [facility] Comment on above: Performed By: #### L 500.2500, L100.0100 ####[facility] [id number] [place], [address] MCV (RBC) [Entitic vol] 87.4 fL Normal 81-99 [facility] Comment on above: Performed By: #### L 500.2500, L100.0100 ####[facility] [address] [place], [address] Monocytes/100 WBC (Bld) 7.4 % Normal 0-10 [facility] Comment on above: Performed By: #### L 500.2500, L100.0100 ####[facility] [address] [place], [address] Neutrophils/100 WBC (Bld) 80.1 % High 47-70 [facility] Comment on above: Performed By: #### L 500.2500, L100.0100 ####[facility] [id number] [place], [address] Nucleated RBC (Bld) [#/Vol] 0 10*3/uL Normal 0-5 [facility] Comment on above: Performed By: #### L 500.2500, L100.0100 ####[facility] [address] [place], [address] Platelet mean volume (Bld) [Entitic vol] 10.3 fL Normal 6.2-12.0 [facility] Comment on above: Performed By: #### L 500.2500, L100.0100 ####[facility] [address] [place], [address] Platelets (Bld) [#/Vol] 270 10*3/uL Normal 150-450 [facility] Comment on above: Performed By: #### L 500.2500, L100.0100 ####[facility] [address] [place], [address] RBC (Bld) [#/Vol] 4.46 10*6/uL Normal 4.2-5.4 [facility] Comment on above: Performed By: #### L 500.2500, L100.0100 ####[facility] [address] [place], [address] RDW SD 39.7 fl Normal 35.1-43.9 [facility] Comment on above: Performed By: #### L 500.2500, L100.0100 ####[facility] [address] [place], [address] WBC (Bld) [#/Vol] 11.6 10*3/uL High 4.4-11.0 [facility] Comment on above: Performed By: #### L 500.2500, L100.0100 ####[facility] [id number] [place], [address] CHEM 7 (LYTES,BUN,CREA,GLUC) Ordered By: Kwaku Schwab on 01-11-2024 Anion gap [Moles/Vol] 24 mmol/L High 7 - 17 mmol/L [facility] Chloride [Moles/Vol] 99 mmol/L 98 - 10 8 mmol/L [facility] CO2 [Moles/Vol] 18 mmol/L Low 21 - 31 mmol/L [facility] Creatinine [Mass/Vol] 1.11 mg/dL 0.50 - 1.20 mg/dL [facility] eGFR, CKD-EPI, Female 52 Low - PINF [facility] Glucose [Mass/Vol] 294 mg/dL High 70 - 99 mg/dL [facility] Interpretation and review of laboratory results Abnormal [facility] Osmolality Calc [Osmolality] 303 [facility] Potassium [Moles/Vol] 4.1 mmol/L 3.5 - 5.0 mmol/L [facility] Sodium [Moles/Vol] 137 mmol/L 135 - 145 mmol/L [facility] Urea nitrogen [Mass/Vol] 23 mg/dL 7 - 25 mg/dL [facility] Urea nitrogen/Creatinine [Mass ratio] 21 [facility] 7 (LYTES,BUN,CREA,GLUC) on 01-11-2024 Anion gap [Moles/Vol] 24 mmol/L High 7-17 [facility] Comment on above: Performed By: #### José Quiñones, MGO #### [facility] (DEFAULT) [address] [place] [address] Chloride [Moles/Vol] 99 mmol/L Normal 98-[address] [facility] Comment on above: Performed By: #### José Quiñones, MGO #### [facility] (DEFAULT) [address] [place] [address] CO2 [Moles/Vol] 18 mmol/L Low 21-31 [facility] Comment on above: Performed By: #### José Quiñones, MGO #### [facility] (DEFAULT) [address] [place] [address] Creatinine [Mass/Vol] 1.11 mg/dL Normal 0.50-1.20 [facility] Comment on above: Performed By: #### José Quiñones, MGO #### [facility] (DEFAULT) [address] [place] [address] GFR/1.73 sq M.predicted among non-blacks MDRD (S/P/Bld) [Vol rate/Area] 52 mL/min/{1.73_m2} Low >=[address] [facility] Comment on above: Result Comment: Repo rted eGFR is based on the CKD-EPI 2020 equation using creatinine, age, and sex. Performed By: #### José Quiñones, MGO #### [facility] (DEFAULT) [address] [place] [address] Glucose [Mass/Vol] 294 mg/dL High 70-99 [facility] Comment on above: Performed By: #### José 7C, MGO #### [facility] (DEFAULT) [address] [place] [address] Osmolality [Osmolality] 303 mosm/kg Normal 278-[address] [facility] Comment on above: Performed By: #### José Quiñones, MGO #### [facility] (DEFAULT) [address] [place] [address] Potassium [Moles/Vol] 4.1 mmol/L Normal 3.5-5.0 [facility] Comment on above: Performed By: #### C 7C, MGO #### [facility] (DEFAULT) [address] [place] [address] Sodium [Moles/Vol] 137 mmol/L Normal 135-145 [facility] Comment on above: Performed By: #### C 7C, MGO #### [facility] (DEFAULT) [address] [place] [address] Urea nitrogen [Mass/Vol] 23 mg/dL Normal 7-[address] [facility] Comment on above: Performed By: #### José 7C, MGO #### [facility] (DEFAULT) [address] [place] [address] Urea nitrogen/Creatinine [Mass ratio] 21 mg/mg Normal [facility] Comment on above: Performed By: #### José 7C, MGO #### [facility] (DEFAULT) [address] [place] [address] CSF DIFFERENTIALon 4 Basophils (Csf) 0 % Normal [facility] Comment on above: Result Comment: The reference range has not been established for this parameter for this fluid. Clinical correlation is recommended. Performed By: #### L AB951 #### [facility] (DEFAULT) [address] [place] [address] Cells Counted (CSF) [address] [facility] Comment on above: Performed By: #### L AB951 #### [facility] (DEFAULT) [address] [address] Comment (Csf) Normal [facility] Comment on above: Result Comment: No u nequivocal organisms seen. Blood is present. Acute and chronic inflammatory cells present. Correlation with gram stain and culture recommended. Performed By: #### L AB951 #### [facility] (DEFAULT) [address] [place] [address] CSF Tube Number CSF TUBE 4 Normal [facility] Comment on above: Performed By: #### L AB951 #### [facility] (DEFAULT) [address] [place] [address] Performed By: #### B FLD #### [facility] (DEFAULT) [address] [place] [address] Differential Reviewed By Montez Davis MD Normal [facility] Comment on above: Performed By: #### L AB951 #### [facility] (DEFAULT) [address] [place] [address] Eosinophils (Csf) 0 % Normal [facility] Comment on above: Result Comment: The reference range has not been established for this parameter for this fluid. Clinical correlation is recommended. Performed By: #### L AB951 #### [facility] (DEFAULT) [address] [address] Lymphocytes (Csf) 48 % Normal 40-80 [facility] Comment on above: Performed By: #### L AB951 #### [facility] (DEFAULT) [address] [address] Monocytes/Macrophages , CSF 6 % Low 15-[address] [facility] Comment on above: Performed By: #### L AB951 #### [facility] (DEFAULT) [address] [address] Neutrophils (Csf) 44 % High <=6 [facility] Comment on above: Performed By: #### L AB951 #### [facility] (DEFAULT) [address] [address] Nucleated RBC/100 WBC (Bld) [Ratio] 2 % Normal [facility] Comment on above: Result Comment: The reference range has not been established for this parameter for this fluid. Clinical correlation is recommended. Performed By: #### L AB951 #### [facility] (DEFAULT) [address] [place] [address] CSF FLUID COUNT ONLYOrdered By: Lottie White on 01-11-2024 Appearance (Body fld) [facility] Appearance (Body fld) Not Indicated [facility] Interpretation and review of laboratory results Abnormal [facility] RBC Manual cnt (CSF) [#/Vol] 248 /uL High NINF - 3 /uL [facility] Tube number Nom (CSF) [ID] CSF TUBE 4 [facility] WBC Manual cnt (CSF) [#/Vol] 5 /uL NINF - 6 /uL [facility] CSF FLUID COUNT ONLYon 01-10 Gross Appearance (Csf) Normal [facility] Comment on above: Result Comment: Eliz Stone Performed By: #### B FLD #### [facility] (DEFAULT) [address] [place] [address] RBC (Bld) [#/Vol] 0.98926 10*6/uL High <[address] [facility] Comment on above: Performed By: #### B FLD #### [facility] (DEFAULT) [address] [place] [address] Supernatant (Csf) Not Indicated Normal [facility] Comment on above: Performed By: #### B FLD #### [facility] (DEFAULT) [address] [place] [address] Total Nucleated Cells (TNC CSF) 5 /uL Normal <[address] [facility] Comment on above: Performed By: #### B FLD #### [facility] (DEFAULT) [address] [place] [address] CSF TECH DIFFERENTIALOrdered By: Adry Bernard on 01-11-2024 [facility] ENCEPHALOPATHY, AUTOIMMUNE E VALUATION, CSFon 01-11-2024 AGNA-1,CSF Negative Normal Negative [facility] Comment on above: Result Comment: ADDITIONAL INFORMATION This test was developed and its performance characteristics determined by [facility] in a manner consistent with CLIA requirements. This test has not been cleared or approved by the [place]. Food and Drug Administration. Performed By: #### Genia FLGennaro #### CORINNE [facility] (DEFAULT) [address] [place] [address] AMPA-R AB CBA, CSF Negative Normal Negative [facility] Comment on above: Result Comment: ADDITIONAL INFORMATION This test was developed and its performance characteristics determined by [facility] in a manner consistent with CLIA requirements. This test has not been cleared or approved by the [place]. Food and Drug Administration. Performed By: ###Glenna Cormier FLGennaro #### Breanne [facility] (DEFAULT) [address] [place] [address] AMPHIPHYSIN AB, CSF Negative Normal Negative [facility] Comment on above: Result Comment: ADDITIONAL INFORMATION This test was developed and its performance characteristics determined by [facility] in a manner consistent with CLIA requirements. This test has not been cleared or approved by the [place].S. Food and Drug Administration. Performed By: #### Genia FLD #### OS[facility] (DEFAULT) [address] [place] [address] LANRE-1, CSF Negative Normal Negative [facility] Comment on above: Result Comment: ADDITIONAL INFORMATION This test was developed and its performance characteristics determined by [facility] in a manner consistent with CLIA requirements. This test has not been cleared or approved by the [place]. Food and Drug Administration. Performed By: #### Genia FLD #### OS[facility] (DEFAULT) [address] [place] [address] LANRE-2,CSF Negative Normal Negative [facility] Comment on above: Result Comment: ADDITIONAL INFORMATION This test was developed and its performance characteristics determined by [facility] in a manner consistent with CLIA requirements. This test has not been cleared or approved by the [place]. Food and Drug Administration. Performed By: #### B FLD #### [facility] (DEFAULT) [address] [place] [address] LANRE-3,CSF Negative Normal Negative [facility] Comment on above: Result Comment: ADDITIONAL INFORMATION This test was developed and its performance characteristics determined by [facility] in a manner consistent with CLIA requirements. This test has not been cleared or approved by the [place].S. Food and Drug Administration. Performed By: #### Genia FLD #### [facility] (DEFAULT) [address] [place] [address] CASPR2-IgG CBA, CSF Negative Normal Negative [facility] Comment on above: Result Comment: ADDITIONAL INFORMATION This test was developed and its performance characteristics determined by [facility] in a manner consistent with CLIA requirements. This test has not been cleared or approved by the [place].S. Food and Drug Administration. Performed By: #### B FLD #### [facility] (DEFAULT) [address] [place] [id number] CRMP-5-IGG,CSF Negative Normal Negative [facility] Comment on above: Result Comment: ADDITIONAL INFORMATION This test was developed and its performance characteristics determined by [facility] in a manner consistent with CLIA requirements. This test has not been cleared or approved by the U.S. Food and Drug Administration. Performed By: ###Glenna BAUTISTA #### [facility] (DEFAULT) [address] [place] [id number] DPPX AB CBA,CSF Negative Normal Negative [facility] Comment on above: Result Comment: ADDITIONAL INFORMATION This test was developed and its performance characteristics determined by [facility] in a manner consistent with CLIA requirements. This test has not been cleared or approved by the U.S. Food and Drug Administration. Performed By: ###Glenna BAUTISTA #### [facility] (DEFAULT) [address] [place] [id number] Encephalopathy, Interpretation, CSF SEE COMMENTS Normal [facility] Comment on above: Result Comment: No i nformative autoantibodies were detected in this evaluation. However, a negative result does not exclude autoimmune encephalopathy, idiopathic or paraneoplastic. Sensitivity and specificity of antibody testing are enhanced by testing both serum and CSF. Performed By: ##Kevin B MICHELE #### [facility] (DEFAULT) [address] [place] [id number] RICH-B-R AB CBA, CSF Negative Normal Negative [facility] Comment on above: Result Comment: ADDITIONAL INFORMATION This test was developed and its performance characteristics determined by [facility] in a manner consistent with CLIA requirements. This test has not been cleared or approved by the U.S. Food and Drug Administration. Performed By: #### B FLGennaro #### [facility] (DEFAULT) [address] [place] [id number] AB ASSAY, CSF 0.00 nmol/L Normal <= 0.[address] [facility] Comment on above: Result Comment: ADDITIONAL INFORMATION This test was developed and its performance characteristics determined by [facility] in a manner consistent with CLIA requirements. This test has not been cleared or approved by the U.S. Food and Drug Administration. Performed By: #### B FLD #### [facility] (DEFAULT) [address] [place] [address] GFAP IFA, CSF Negative Normal Negative [facility] Comment on above: Result Comment: ADDITIONAL INFORMATION This test was developed and its performance characteristics determined by [facility] in a manner consistent with CLIA requirements. This test has not been cleared or approved by the U.S. Food and Drug Administration. Performed By: #### Genia FLD #### [facility] (DEFAULT) [address] [place] [address] IFA Notes None. Normal [facility] Comment on above: Performed By: #### Genia FLD #### [facility] (DEFAULT) [address] [place] [address] IgLON5 CBA, CSF Negative Normal Negative [facility] Comment on above: Result Comment: ADDITIONAL INFORMATION This test was developed and its performance characteristics determined by [facility] in a manner consistent with CLIA requirements. This test has not been cleared or approved by the U.S. Food and Drug Administration. Performed By: #### Genia FLD #### [facility] (DEFAULT) [address] [place] [address] LGI1-IgG,CBA,csf Negative Normal Negative [facility] Comment on above: Result Comment: ADDITIONAL INFORMATION This test was developed and its performance characteristics determined by [facility] in a manner consistent with CLIA requirements. This test has not been cleared or approved by the U.S. Food and Drug Administration. Performed By: ###Glenna BAUTISTA #### [facility] (DEFAULT) [address] [place] [address] MGLUR1 AB, IFA, CSF Negative Normal Negative [facility] Comment on above: Result Comment: ADDITIONAL INFORMATION This test was developed and its performance characteristics determined by [facility] in a manner consistent with CLIA requirements. This test has not been cleared or approved by the U.S. Food and Drug Administration. Performed By: ###Glenna Cormier FLGennaro #### [facility] (DEFAULT) [address] [place] [phone] Neurochondrin IFA, CSF Negative Normal Negative [facility] Comment on above: Result Comment: ADDITIONAL INFORMATION This test was developed and its performance characteristics determined by [facility] in a manner consistent with CLIA requirements. This test has not been cleared or approved by the U.S. Food and Drug Administration. Performed By: #### Genia FLGennaro #### [facility] (DEFAULT) [address] [place] [address] 22535 NIF IFA, CSF Negative Normal Negative [facility] Comment on above: Result Comment: ADDITIONAL INFORMATION This test was developed and its performance characteristics determined by [facility] in a manner consistent with CLIA requirements. This test has not been cleared or approved by the U.S. Food and Drug Administration. Performed By: #### Genia FLD #### [facility] (DEFAULT) [address] [place] [id number] NMDA-R AB CBA, CSF Negative Normal Negative [facility] Comment on above: Result Comment: ADDITIONAL INFORMATION This test was developed and its performance characteristics determined by [facility] in a manner consistent with CLIA requirements. This test has not been cleared or approved by the U.S. Food and Drug Administration. Performed By: #### B FLD #### [facility] (DEFAULT) [address] [place] [address] PACKAGE LINER-1,CSF Negative Normal Negative [facility] Comment on above: Result Comment: ADDITIONAL INFORMATION This test was developed and its performance characteristics determined by [facility] in a manner consistent with CLIA requirements. This test has not been cleared or approved by the U.S. Food and Drug Administration. Performed By: #### Genia FLD #### [facility] (DEFAULT) [address] [place] [address] PACKAGE LINER-2,CSF Negative Normal Negative [facility] Comment on above: Result Comment: ADDITIONAL INFORMATION This test was developed and its performance characteristics determined by [facility] in a manner consistent with CLIA requirements. This test has not been cleared or approved by the U.S. Food and Drug Administration. Performed By: #### B FLD #### [facility] (DEFAULT) [address] [place] [address] PACKAGE LINER-TR,CSF Negative Normal Negative [facility] Comment on above: Result Comment: ADDITIONAL INFORMATION This test was developed and its performance characteristics determined by [facility] in a manner consistent with CLIA requirements. This test has not been cleared or approved by the U.S. Food and Drug Administration. Performed By: #### Genia FLD #### [facility] (DEFAULT) [address] [address] PDE10A AB IFA, CSF Negative Normal Negative [facility] Comment on above: Result Comment: ADDITIONAL INFORMATION This test was developed and its performance characteristics determined by [facility] in a manner consistent with CLIA requirements. This test has not been cleared or approved by the U.S. Food and Drug Administration. Performed By: ###Glenna Cormier FLD #### [facility] (DEFAULT) [address] [place] [id number] Septin-7 IFA, CSF Negative Normal Negative [facility] Comment on above: Result Comment: ADDITIONAL INFORMATION This test was developed and its performance characteristics determined by [facility] in a manner consistent with CLIA requirements. This test has not been cleared or approved by the U.S. Food and Drug Administration. Performed By: #### Genia FLD #### [facility] (DEFAULT) [address] [place] [phone] Tripartite Motif-Containing Protein 46 IgG IFA, CSF Negative Normal Negative [facility] Comment on above: Result Comment: ADDITIONAL INFORMATION This test was developed and its performance characteristics determined by [facility] in a manner consistent with CLIA requirements. This test has not been cleared or approved by the U.S. Food and Drug Administration. Test Performed by: [address] [address] Sales And Service Advisor: Dennis Shields Ph.D.; CLIA# [id number] Performed By: ###Glenna Cormier FLD #### [facility] (DEFAULT) [address] [address] GENERAL PROCEDUREon 01-11-20 [facility] Radiology Study observation (narrative) [facility] GLUCOSE POCon 01-11-2024 Glucose [Mass/Vol] 268 mg/dL High 70 - 99 mg/dL [facility] Interpretation and review of laboratory results Abnormal [facility] POC Sample Type CAPBL [facility] 1 AND 2 ANTIBODIES/P24 A NTIGENOrdered By: Sandy Fernandez on 01-11-2024 HIV 1+2 Ab+HIV1 p24 Ag IA Ql Non-Reactive Non Reactive [facility] Interpretation and review of laboratory results Normal [facility] HIV 1 AND 2 ANTIBODIES/P24 A NTIGENon 01-11-2024 HIV-1/HIV-2 Ab With p24 Antigen Non-Reactive Normal Non Reactive [facility] Comment on above: Performed By: #### S URGP #### [facility] (DEFAULT) [address] [address] LYME ABon 01-11-2024 Lyme Antibody Negative Normal Negative [facility] Comment on above: Performed By: #### M GO, CHM7, HFP #### [facility] (DEFAULT) [address] [address] LYME DISEASE BY PCR, FLUIDon 01-11-2024 B. BURGDORFERI AB Negative Normal Negative [facility] Comment on above: Performed By: #### B FLD #### [facility] (DEFAULT) [address] [address] B. garinii/B. afzelii Negative Normal Negative [facility] Comment on above: Performed By: #### B FLD #### [facility] (DEFAULT) [address] [address] B. mayonii Negative Normal Negative [facility] Comment on above: Performed By: #### B FLD #### [facility] (DEFAULT) [address] [address] Borrelia Species DNA Detection by PCR SEE COMMENTS Normal [facility] Comment on above: Result Comment: If c linical features of illness are highly indicative of Lyme neuroborreliosis, additional serological testing would be recommended. ADDITIONAL INFORMATION This test was developed and its performance characteristics determined by [facility] in a manner consistent with CLIA requirements. This test has not been cleared or approved by the U.S. Food and Drug Administration. Test Performed by: [facility] [place] [address] Sales And Service Advisor: Dennis Shields Ph.D.; CLIA# [id number] Performed By: #### B FLD #### [facility] (DEFAULT) [address] [address] Borrelia Species Source csf Normal [facility] Comment on above: Performed By: #### B FLD #### [facility] (DEFAULT) [address] [address] MENINGITIS/ENCEPHALITIS PANE L, CSFOrdered By: Binu Gamino on 01-11-2024 C. gattii+neoformans DNA JAYLIN+non-probe Ql (CSF) Not detected Not Detected [facility] CMV DNA JAYLIN+non-probe Ql (CSF) Not detected Not Detected [facility] E. coli K1 DNA JAYLIN+non-probe Ql (CSF) Not detected Not Detected [facility] Enterovirus RNA JAYLIN+non-probe Ql (CSF) Not detected Not Detected [facility] H. influenzae DNA JAYLIN+non-probe Ql (CSF) Not detected Not Detected [facility] HHV 6 DNA JAYLIN+non-probe Ql (CSF) Not detected Not Detected [facility] HSV 1 DNA JAYLIN+non-probe Ql (CSF) Not detected Not Detected [facility] HSV 2 DNA JAYLIN+non-probe Ql (CSF) Not detected Not Detected [facility] Interpretation and review of laboratory results Normal [facility] L. monocytogenes DNA JAYLIN+non-probe Ql (CSF) Not detected Not Detected [facility] N. meningitidis DNA JAYLIN+non-probe Ql (CSF) Not detected Not Detected [facility] Parechovirus A RNA JAYLIN+non-probe Ql (CSF) Not detected Not Detected [facility] S. agalactiae DNA JAYLIN+non-probe Ql (CSF) Not detected Not Detected [facility] S. pneumoniae DNA JAYLIN+non-probe Ql (CSF) Not detected Not Detected [facility] VZV DNA JAYLIN+non-probe Ql (CSF) Not detected Not Detected [facility] MENINGITIS/ENCEPHALITIS PANE L, CSFon 01-11-2024 CMV DNA Not detected Normal Not Detected [facility] Comment on above: Order Comment: A neg ative result does not exclude the possibility of STEWARD/STEWARDESS [employer] infection and should not be used as the sole basis for diagnosis, treatment, or other management decisions. Negative results may occur when the concentration of organism(s), virus(es), or yeast in the specimen is below the limit of detection. The ME panel does not distinguish between latent and active herpesvirus infections(CMV, HHV-6). This test was performed using a film array method for the detection of: Escherichia coli K1, Haemophilus influenza, Listeria monocytogenes, Neisseria meningitidis, Streptococcus agalactiae, Streptococcus pneumoniae, Cytomegalovirus, Enterovirus, Herpes Simplex virus 1 and 2, Human Herpesvirus 6, Human parechovirus, Varicella zoster virus, and Cryptococcus neoformans/bárbara. Performed By: #### B FLD #### [facility] (DEFAULT) [address] [place] [address] Cryptococcus Bárbara/Neoformans DNA Not detected Normal Not Detected [facility] Comment on above: Order Comment: A neg ative result does not exclude the possibility of STEWARD/[employer]EW[employer]ESS [employer] infection and should not be used as the sole basis for diagnosis, treatment, or other management decisions. Negative results may occur when the concentration of organism(s), virus(es), or yeast in the specimen is below the limit of detection. The ME panel does not distinguish between latent and active herpesvirus infections(CMV, HHV-6). This test was performed using a film array method for the detection of: Escherichia coli K1, Haemophilus influenza, Listeria monocytogenes, Neisseria meningitidis, Streptococcus agalactiae, Streptococcus pneumoniae, Cytomegalovirus, Enterovirus, Herpes Simplex virus 1 and 2, Human Herpesvirus 6, Human parechovirus, Varicella zoster virus, and Cryptococcus neoformans/bárbara. Performed By: #### B FLD #### [facility] (DEFAULT) [address] [place] [address] E. Coli K1 DNA Not detected Normal Not Detected [facility] Comment on above: Order Comment: A neg ative result does not exclude the possibility of STEWARD/[employer]ESS [employer] infection and should not be used as the sole basis for diagnosis, treatment, or other management decisions. Negative results may occur when the concentration of organism(s), virus(es), or yeast in the specimen is below the limit of detection. The ME panel does not distinguish between latent and active herpesvirus infections(CMV, HHV-6). This test was performed using a film array method for the detection of: Escherichia coli K1, Haemophilus influenza, Listeria monocytogenes, Neisseria meningitidis, Streptococcus agalactiae, Streptococcus pneumoniae, Cytomegalovirus, Enterovirus, Herpes Simplex virus 1 and 2, Human Herpesvirus 6, Human parechovirus, Varicella zoster virus, and Cryptococcus neoformans/bárbara. Performed By: #### B FLD #### [facility] (DEFAULT) [address] [place] [address] Enterovirus RNA Not detected Normal Not Detected [facility] Comment on above: Order Comment: A neg ative result does not exclude the possibility of STEWARD/STEW[employer]ESS [employer] infection and should not be used as the sole basis for diagnosis, treatment, or other management decisions. Negative results may occur when the concentration of organism(s), virus(es), or yeast in the specimen is below the limit of detection. The ME panel does not distinguish between latent and active herpesvirus infections(CMV, HHV-6). This test was performed using a film array method for the detection of: Escherichia coli K1, Haemophilus influenza, Listeria monocytogenes, Neisseria meningitidis, Streptococcus agalactiae, Streptococcus pneumoniae, Cytomegalovirus, Enterovirus, Herpes Simplex virus 1 and 2, Human Herpesvirus 6, Human parechovirus, Varicella zoster virus, and Cryptococcus neoformans/bárbara. Performed By: #### B FLD #### [facility] (DEFAULT) [address] [address] Haemophilus Influenza DNA Not detected Normal Not Detected [facility] Comment on above: Order Comment: A neg ative result does not exclude the possibility of STEWARD/[employer]ESS [employer] infection and should not be used as the sole basis for diagnosis, treatment, or other management decisions. Negative results may occur when the concentration of organism(s), virus(es), or yeast in the specimen is below the limit of detection. The ME panel does not distinguish between latent and active herpesvirus infections(CMV, HHV-6). This test was performed using a film array method for the detection of: Escherichia coli K1, Haemophilus influenza, Listeria monocytogenes, Neisseria meningitidis, Streptococcus agalactiae, Streptococcus pneumoniae, Cytomegalovirus, Enterovirus, Herpes Simplex virus 1 and 2, Human Herpesvirus 6, Human parechovirus, Varicella zoster virus, and Cryptococcus neoformans/bárbara. Performed By: #### B FLD #### [facility] (DEFAULT) [address] [address] Hhv-6 DNA Not detected Normal Not Detected [facility] Comment on above: Order Comment: A neg ative result does not exclude the possibility of STEWARD/[employer]ESS [employer] infection and should not be used as the sole basis for diagnosis, treatment, or other management decisions. Negative results may occur when the concentration of organism(s), virus(es), or yeast in the specimen is below the limit of detection. The ME panel does not distinguish between latent and active herpesvirus infections(CMV, HHV-6). This test was performed using a film array method for the detection of: Escherichia coli K1, Haemophilus influenza, Listeria monocytogenes, Neisseria meningitidis, Streptococcus agalactiae, Streptococcus pneumoniae, Cytomegalovirus, Enterovirus, Herpes Simplex virus 1 and 2, Human Herpesvirus 6, Human parechovirus, Varicella zoster virus, and Cryptococcus neoformans/bárbara. Performed By: #### B FLD #### [facility] (DEFAULT) [address] [place] [address] Hsv-1 DNA Not detected Normal Not Detected [facility] Comment on above: Order Comment: A neg ative result does not exclude the possibility of STEWARD/STEW[employer]ESS [employer] infection and should not be used as the sole basis for diagnosis, treatment, or other management decisions. Negative results may occur when the concentration of organism(s), virus(es), or yeast in the specimen is below the limit of detection. The ME panel does not distinguish between latent and active herpesvirus infections(CMV, HHV-6). This test was performed using a film array method for the detection of: Escherichia coli K1, Haemophilus influenza, Listeria monocytogenes, Neisseria meningitidis, Streptococcus agalactiae, Streptococcus pneumoniae, Cytomegalovirus, Enterovirus, Herpes Simplex virus 1 and 2, Human Herpesvirus 6, Human parechovirus, Varicella zoster virus, and Cryptococcus neoformans/bárbara. Performed By: #### B FLD #### [facility] (DEFAULT) [address] [place] [address] Hsv-2 DNA Not detected Normal Not Detected [facility] Comment on above: Order Comment: A neg ative result does not exclude the possibility of STEWARD/STEW[employer]ESS [employer] infection and should not be used as the sole basis for diagnosis, treatment, or other management decisions. Negative results may occur when the concentration of organism(s), virus(es), or yeast in the specimen is below the limit of detection. The ME panel does not distinguish between latent and active herpesvirus infections(CMV, HHV-6). This test was performed using a film array method for the detection of: Escherichia coli K1, Haemophilus influenza, Listeria monocytogenes, Neisseria meningitidis, Streptococcus agalactiae, Streptococcus pneumoniae, Cytomegalovirus, Enterovirus, Herpes Simplex virus 1 and 2, Human Herpesvirus 6, Human parechovirus, Varicella zoster virus, and Cryptococcus neoformans/bárbara. Performed By: #### B FLD #### [facility] (DEFAULT) [address] [place] [address] Human Parechovirus RNA Not detected Normal Not Detected [facility] Comment on above: Order Comment: A neg ative result does not exclude the possibility of STEWARD/[employer]ESS [employer] infection and should not be used as the sole basis for diagnosis, treatment, or other management decisions. Negative results may occur when the concentration of organism(s), virus(es), or yeast in the specimen is below the limit of detection. The ME panel does not distinguish between latent and active herpesvirus infections(CMV, HHV-6). This test was performed using a film array method for the detection of: Escherichia coli K1, Haemophilus influenza, Listeria monocytogenes, Neisseria meningitidis, Streptococcus agalactiae, Streptococcus pneumoniae, Cytomegalovirus, Enterovirus, Herpes Simplex virus 1 and 2, Human Herpesvirus 6, Human parechovirus, Varicella zoster virus, and Cryptococcus neoformans/bárbara. Performed By: #### B FLD #### [facility] (DEFAULT) [address] [place] [address] Listeria Monocytogenes DNA Not detected Normal Not Detected [facility] Comment on above: Order Comment: A neg ative result does not exclude the possibility of STEWARD/STEW[employer]ESS [employer] infection and should not be used as the sole basis for diagnosis, treatment, or other management decisions. Negative results may occur when the concentration of organism(s), virus(es), or yeast in the specimen is below the limit of detection. The ME panel does not distinguish between latent and active herpesvirus infections(CMV, HHV-6). This test was performed using a film array method for the detection of: Escherichia coli K1, Haemophilus influenza, Listeria monocytogenes, Neisseria meningitidis, Streptococcus agalactiae, Streptococcus pneumoniae, Cytomegalovirus, Enterovirus, Herpes Simplex virus 1 and 2, Human Herpesvirus 6, Human parechovirus, Varicella zoster virus, and Cryptococcus neoformans/bárbara. Performed By: #### B FLD #### [facility] (DEFAULT) [address] [place] [id number] Neisseria Meningitidis DNA Not detected Normal Not Detected [facility] Comment on above: Order Comment: A neg ative result does not exclude the possibility of STEWARD/STEWARDESS RAILRO[employer] DINING CAR infection and should not be used as the sole basis for diagnosis, treatment, or other management decisions. Negative results may occur when the concentration of organism(s), virus(es), or yeast in the specimen is below the limit of detection. The ME panel does not distinguish between latent and active herpesvirus infections(CMV, HHV-6). This test was performed using a film array method for the detection of: Escherichia coli K1, Haemophilus influenza, Listeria monocytogenes, Neisseria meningitidis, Streptococcus agalactiae, Streptococcus pneumoniae, Cytomegalovirus, Enterovirus, Herpes Simplex virus 1 and 2, Human Herpesvirus 6, Human parechovirus, Varicella zoster virus, and Cryptococcus neoformans/bárbara. Performed By: #### B FLD #### [facility] (DEFAULT) [address] [address] Streptococcus Agalactiae DNA Not detected Normal Not Detected [facility] Comment on above: Order Comment: A neg ative result does not exclude the possibility of STEWARD/STEWARDESS RAILRO[employer] DINING [employer] infection and should not be used as the sole basis for diagnosis, treatment, or other management decisions. Negative results may occur when the concentration of organism(s), virus(es), or yeast in the specimen is below the limit of detection. The ME panel does not distinguish between latent and active herpesvirus infections(CMV, HHV-6). This test was performed using a film array method for the detection of: Escherichia coli K1, Haemophilus influenza, Listeria monocytogenes, Neisseria meningitidis, Streptococcus agalactiae, Streptococcus pneumoniae, Cytomegalovirus, Enterovirus, Herpes Simplex virus 1 and 2, Human Herpesvirus 6, Human parechovirus, Varicella zoster virus, and Cryptococcus neoformans/bárbara. Performed By: #### B FLD #### [facility] (DEFAULT) [address] [address] Streptococcus Pneumoniae DNA Not detected Normal Not Detected [facility] Comment on above: Order Comment: A neg ative result does not exclude the possibility of STEWARD/STEWARDESS RAILRO[employer] DINING [employer] infection and should not be used as the sole basis for diagnosis, treatment, or other management decisions. Negative results may occur when the concentration of organism(s), virus(es), or yeast in the specimen is below the limit of detection. The ME panel does not distinguish between latent and active herpesvirus infections(CMV, HHV-6). This test was performed using a film array method for the detection of: Escherichia coli K1, Haemophilus influenza, Listeria monocytogenes, Neisseria meningitidis, Streptococcus agalactiae, Streptococcus pneumoniae, Cytomegalovirus, Enterovirus, Herpes Simplex virus 1 and 2, Human Herpesvirus 6, Human parechovirus, Varicella zoster virus, and Cryptococcus neoformans/bárbara. Performed By: #### B FLD #### [facility] (DEFAULT) [address] [address] Varicella Zoster DNA Not detected Normal Not Detected [facility] Comment on above: Order Comment: A neg ative result does not exclude the possibility of STEWARD/STEWARDESS RAILRO[employer] DINING [employer] infection and should not be used as the sole basis for diagnosis, treatment, or other management decisions. Negative results may occur when the concentration of organism(s), virus(es), or yeast in the specimen is below the limit of detection. The ME panel does not distinguish between latent and active herpesvirus infections(CMV, HHV-6). This test was performed using a film array method for the detection of: Escherichia coli K1, Haemophilus influenza, Listeria monocytogenes, Neisseria meningitidis, Streptococcus agalactiae, Streptococcus pneumoniae, Cytomegalovirus, Enterovirus, Herpes Simplex virus 1 and 2, Human Herpesvirus 6, Human parechovirus, Varicella zoster virus, and Cryptococcus neoformans/bárbara. Performed By: #### B FLD #### [facility] (DEFAULT) [address] [place] [address] PROTEIN & GLUCOSE, CSFOrdere d By: Mackenzie Barnes on 01-11-2024 Glucose (CSF) [Mass/Vol] 143 mg/dL High 40 - 70 mg/dL [facility] Interpretation and review of laboratory results Abnormal [facility] Protein (CSF) [Mass/Vol] 88 mg/dL High 15 - 45 mg/dL [facility] PROTEIN & GLUCOSE, CSFon CSF Glucose 143 mg/dL High 40-[address] [facility] Comment on above: Performed By: #### B FLD #### [facility] (DEFAULT) [address] [place] [address] CSF Protein 88 mg/dL High 15-[address] [facility] Comment on above: Performed By: #### B FLD #### [facility] (DEFAULT) [address] [place] [address] PT,INR,PTTon 01-11-2024 aPTT Coag (PPP) [Time] 32.7 s [facility] INR Coag (Bld) [Relative time] 1.1 {INR} 0.9 - 1.1 [facility] Interpretation and review of laboratory results Abnormal [facility] PT Coag (PPP) [Time] 14.6 s High [facility] aPTT Coag (Bld) [Time] 32.7 s Normal 24.0-34.[address] [facility] Comment on above: Performed By: #### LYN MALONEY, HFP #### [facility] (DEFAULT) [address] [place] [address] INR Coag (PPP) [Relative time] 1.1 {INR} Normal 0.9-1.[address] [facility] Comment on above: Performed By: #### LYN MALONEY, HFP #### [facility] (DEFAULT) [address] [place] [address] PT Coag (PPP) [Time] 14.6 s High 11.9-14.[address] [facility] Comment on above: Performed By: #### LYN MALONEY, HFP #### [facility] (DEFAULT) [address] [place] [address] RF Guidance for fluid aspira tion of Lumbar spine spaceon 01-11-2024 RADIOLOGY RADIOLOGY [facility] Radiology Study observation (narrative) [facility] RF Guidance for fluid aspira tion of Lumbar spine spaceOrdered By: Que Morelos on 01-11-2024 [facility] Work Phone: RPR WITH TITERon 01-11-2024 Reagin Ab RPR Ql (S) Non-Reactive Normal Non Reactive [facility] Comment on above: Performed By: #### LYN MALONEY, HFP #### [facility] (DEFAULT) [address] [place] [address] T. pallidum Ab Ql (S)Ordered By: Rox Victor on 01-11-2024 Interpretation and review of laboratory results Normal [facility] Reagin Ab RPR Ql (S) Non-Reactive Non Reactive [facility] XR FLUORO LUMBAR PUNCTUREon 01-11-2024 XR FLUORO LUMBAR PUNCTURE EXAM: XR FLUORO LUMBAR PUNCTURE, 01/11/2024 15:04 PM CLINICAL INDICATIONS: 78 years Female Meningitis. RELEVANT CLINICAL HISTORY: Concern for meningitis. COMPARISON: No priors available for comparison. TECHNIQUE AND FINDINGS: TOTAL FLUORO TIME: 0.2 minutes Consent: The risks, benefits, and alternatives of procedure were discussed with the patient's spouse who provided written and verbal consent over the phone with a witness. Position: The patient was placed in a prone position on the fluoroscopy table. The overlying skin was marked, prepped and sterilely draped and prepped utilizing sterile barrier technique at the appropriate vertebral body level. Procedure: A time-out was performed. 3ml 1% Lidocaine was used to locally anesthetize the puncture site. Lumbar puncture was performed under fluoroscopic guidance at the L2-L3 level using a 3.5 inch 20 gauge spinal needle. Opening pressure was 13 cm H2O. 14 ml of clear slightly xanthochromic cerebrospinal fluid was removed and sent to the laboratory for analysis. Closing pressure was <9 cm H2O. The needle was then removed and a bandage applied to the site. The patient tolerated the procedure well without any immediate complications. Blood loss: None. IMPRESSION: Successful fluoroscopic-guided lumbar puncture with 14 ml of clear slightly xanthochromic CSF removed. Opening pressure: 13 cm H2O. Closing pressure: <9 cm H2O. Lumbar puncture performed by ISMA Burrell. Dr. Que Moerlos was physically present for the edwards components of the procedure and was immediately available throughout the remaining portions of the procedure. I personally viewed and interpreted these images and I have reviewed and approved this report. Normal [facility] Basic Metabolic Profile (BMP )on 01-10-2024 BUN/CRE 24.2 RATIO High 10-20 [facility] Comment on above: Performed By: #### L 100.0500, L500.2500 ####[facility] [address] [place], [place], [id number] CA,Total 9.7 mg/dL Normal 8.5-10.1 [facility] Comment on above: Performed By: #### L 100.0500, L500.2500 ####[facility] [address] [place], [address] Chloride [Moles/Vol] 107 mmol/L Normal 98-[address] [facility] Comment on above: Performed By: #### L 100.0500, L500.2500 ####[facility] [address] [place], [address] CO2 [Moles/Vol] 23.0 mmol/L Normal 21.0-32.0 [facility] Comment on above: Performed By: #### L 100.0500, L500.2500 ####[facility] [address] [place], [address] Creatinine [Mass/Vol] 1.20 mg/dL High 0.55-1.02 [facility] Comment on above: Result Comment: The validity of the calculated GFR GFRAA in patients over70 years has not been determined. Clinical correlation isessential. Performed By: #### L 100.0500, L500.2500 ####[facility] [address] [place], [address] ECRCL 37.34 ml/min Normal [facility] Comment on above: Performed By: #### L 100.0500, L500.2500 ####[facility] [address] [place], [address] EST GFR - AA 56 mL/min Low >60 [facility] Comment on above: Result Comment: Afri can Mongolian GFR Calc Performed By: #### L 100.0500, L500.2500 ####[facility] [address] [place], [address] GAP 9 Normal 5-15 [facility] Comment on above: Performed By: #### L 100.0500, L500.2500 ####[facility] [address] [place], [address] GFR/1.73 sq M.predicted among non-blacks MDRD (S/P/Bld) [Vol rate/Area] 46 mL/min/{1.73_m2} Low >60 [facility] Comment on above: Result Comment: Non- GFR Calc Performed By: #### L 100.0500, L500.2500 ####[facility] [address] [place], [address] Glucose [Mass/Vol] 225 mg/dL High 74-106 [facility] Comment on above: Result Comment: Gluc ose result greater than or equal to 200 mg/dLsuggests DIABETES MELLITUS per A.D.A. criteria. Performed By: #### L 100.0500, L500.2500 ####[facility] [address] [place], [address] Potassium [Moles/Vol] 3.3 mmol/L Low 3.5-5.1 [facility] Comment on above: Performed By: #### L 100.0500, L500.2500 ####[facility] [address] [place], [address] Sodium [Moles/Vol] 139 mmol/L Normal 136-145 [facility] Comment on above: Performed By: #### L 100.0500, L500.2500 ####[facility] [address] [place], [address] Urea nitrogen [Mass/Vol] 29 mg/dL High 7-18 [facility] Comment on above: Performed By: #### L 100.0500, L500.2500 ####[facility] [address] [place], [address] Bedside Glucoseon 01-10-2024 FINGERSTICK GLU 201 mg/dL High 74-106 [facility] Comment on above: Result Comment: ADAL GEMENT OF PATIENT CARE PER NURSING PROTOCOL Performed By: #### L 501.080 ####[facility] [address] [place], [address] FINGERSTICK GLU 266 mg/dL High 74-106 [facility] Comment on above: Result Comment: ADAL GEMENT OF PATIENT CARE PER NURSING PROTOCOL Performed By: #### L 501.080 ####[facility] [address] [place], [address] CBC-Complete Blood Cnt No Di ffon 01-10-2024 Erythrocyte distribution width (RBC) [Ratio] 12.6 % Normal 11.6-14.6 [facility] Comment on above: Performed By: #### L 100.0500, L500.2500 ####[facility] [address] [place], [address] Hematocrit (Bld) [Volume fraction] 35.7 % Low 37-47 [facility] Comment on above: Performed By: #### L 100.0500, L500.2500 ####[facility] [address] [place], [address] Hemoglobin (Bld) [Mass/Vol] 11.2 g/dL Low 12.0-15.0 [facility] Comment on above: Performed By: #### L 100.0500, L500.2500 ####[facility] [address] [place], [address] MCH (RBC) [Entitic mass] 27.7 pg Normal 27.0-32.0 [facility] Comment on above: Performed By: #### L 100.0500, L500.2500 ####[facility] [address] [place], [address] MCHC (RBC) [Mass/Vol] 31.4 g/dL Low 32-36 [facility] Comment on above: Performed By: #### L 100.0500, L500.2500 ####[facility] [address] [place], [address] MCV (RBC) [Entitic vol] 88.1 fL Normal 81-99 [facility] Comment on above: Performed By: #### L 100.0500, L500.2500 ####[facility] [address] [place], [address] Platelet mean volume (Bld) [Entitic vol] 10.7 fL Normal 6.2-12.0 [facility] Comment on above: Performed By: #### L 100.0500, L500.2500 ####[facility] [address] [place], [address] Platelets (Bld) [#/Vol] 246 10*3/uL Normal 150-450 [facility] Comment on above: Performed By: #### L 100.0500, L500.2500 ####[facility] [address] [place], [address] RBC (Bld) [#/Vol] 4.05 10*6/uL Low 4.2-5.4 [facility] Comment on above: Performed By: #### L 100.0500, L500.2500 ####[facility] [address] [place], [address] RDW SD 40.6 fl Normal 35.1-43.9 [facility] Comment on above: Performed By: #### L 100.0500, L500.2500 ####[facility] [address] [place], [address] WBC (Bld) [#/Vol] 8.6 10*3/uL Normal 4.4-11.0 [facility] Comment on above: Performed By: #### L 100.0500, L500.2500 ####[facility] [address] [place], [address] Consultation - Infectious Dx on 01-10-2024 Consultation - Infectious Dx Normal [facility] RESPIRATORY PANEL MOLECULARo n 01-10-[address] [facility] Comment on above: Performed By: #### M 100.638 ####[facility] [address] [place], [address] Vancomycin, Trough Levelon 0 01-10-2024 VANCO, TROUGH 14.5 ug/mL Normal 5.0-15.0 [facility] Comment on above: Order Comment: Comme nts: Trough to be drawn 30 mins prior to scheduled [id number] Result Comment: VANC OMYCIN STANDARED DRUG THERAPY TROUGH LEVEL: 5.0 - 15.0 mg/LVANCOMYCIN HIGH INTENSITY THERAPY TROUGH LEVEL: 15.0 - 20.0 mg/LHigh Intensity therapy recommended for serious lifethreatening infections include:- Nlfheanpgo-Csdbxjqebutr-Kxwbbkeuh (Ventilator/Healtcare Associated)-SepsisPLEASE CONTACT PHARMACY SERVICES (#4811) FOR INTERPRETATIONOF RESULTS. Performed By: #### L 501.8820 ####[facility] [address] [place], [address] Basic Metabolic Profile (BMP )on 01-09-2024 BUN/CRE 20.6 RATIO High 10-20 [facility] Comment on above: Performed By: #### L 100.0100, L500.2500 ####[facility] [address] [place], [address] CA,Total 10.2 mg/dL High 8.5-10.1 [facility] Comment on above: Performed By: #### L 100.0100, L500.2500 ####[facility] [address] [place], [address] Chloride [Moles/Vol] 104 mmol/L Normal 98-[address] [facility] Comment on above: Performed By: #### L 100.0100, L500.2500 ####[facility] [address] [place], [address] CO2 [Moles/Vol] 28.0 mmol/L Normal 21.0-32.0 [facility] Comment on above: Performed By: #### L 100.0100, L500.2500 ####[facility] [address] [place], [address] Creatinine [Mass/Vol] 1.26 mg/dL High 0.55-1.02 [facility] Comment on above: Result Comment: The validity of the calculated GFR GFRAA in patients over70 years has not been determined. Clinical correlation isessential. Performed By: #### L 100.0100, L500.2500 ####[facility] [address] [place], [address] ECRCL 35.56 ml/min Normal [facility] Comment on above: Performed By: #### L 100.0100, L500.2500 ####[facility] [address] [place], [address] EST GFR - AA 53 mL/min Low >60 [facility] Comment on above: Result Comment: Afri can Mongolian GFR Calc Performed By: #### L 100.0100, L500.2500 ####[facility] [address] [place], [address] GAP 7 Normal 5-15 [facility] Comment on above: Performed By: #### L 100.0100, L500.2500 ####[facility] [address] [place], [address] GFR/1.73 sq M.predicted among non-blacks MDRD (S/P/Bld) [Vol rate/Area] 44 mL/min/{1.73_m2} Low >60 [facility] Comment on above: Result Comment: Non- GFR Calc Performed By: #### L 100.0100, L500.2500 ####[facility] [address] [place], [address] Glucose [Mass/Vol] 218 mg/dL High 74-106 [facility] Comment on above: Result Comment: Gluc ose result greater than or equal to 200 mg/dLsuggests DIABETES MELLITUS per A.D.A. criteria. Performed By: #### L 100.0100, L500.2500 ####[facility] [address] [place], [address] Potassium [Moles/Vol] 3.4 mmol/L Low 3.5-5.1 [facility] Comment on above: Performed By: #### L 100.0100, L500.2500 ####[facility] [address] [place], [address] Sodium [Moles/Vol] 139 mmol/L Normal 136-145 [facility] Comment on above: Performed By: #### L 100.0100, L500.2500 ####[facility] [address] [place], [address] Urea nitrogen [Mass/Vol] 26 mg/dL High 7-18 [facility] Comment on above: Performed By: #### L 100.0100, L500.2500 ####[facility] [address] [place], [address] Bedside Glucoseon 01-09-2024 FINGERSTICK GLU 171 mg/dL High 74-106 [facility] Comment on above: Result Comment: ADAL GEMENT OF PATIENT CARE PER NURSING PROTOCOL Performed By: #### L 501.080 ####[facility] [address] [place], [address] FINGERSTICK GLU 182 mg/dL High 74-106 [facility] Comment on above: Result Comment: ADAL GEMENT OF PATIENT CARE PER NURSING PROTOCOL Performed By: #### L 501.080 ####[facility] [address] [place], [address] FINGERSTICK GLU 199 mg/dL High 74-106 [facility] Comment on above: Result Comment: ADAL GEMENT OF PATIENT CARE PER NURSING PROTOCOL Performed By: #### L 501.080 ####[facility] [address] [place], [address] CBC W/Diff, Automatedon 06-2 Absolute Lymph 1.80 X10 3/uL Normal 0.83-4.51 [facility] Comment on above: Performed By: #### L 100.0100, L500.2500 ####[facility] [address] [place], [address] Absolute Neut 10.1 X10 3/uL High 2.0-7.7 [facility] Comment on above: Performed By: #### L 100.0100, L500.2500 ####[facility] [address] [place], [address] Basophils/100 WBC (Bld) 0.4 % Normal 0-1 [facility] Comment on above: Performed By: #### L 100.0100, L500.2500 ####[facility] [address] [place], [address] Eosinophils/100 WBC (Bld) 0.0 % Normal 0-5 [facility] Comment on above: Performed By: #### L 100.0100, L500.2500 ####[facility] [address] [place], [address] Erythrocyte distribution width (RBC) [Ratio] 12.5 % Normal 11.6-14.6 [facility] Comment on above: Performed By: #### L 100.0100, L500.2500 ####[facility] [address] [place], [address] Hematocrit (Bld) [Volume fraction] 34.5 % Low 37-47 [facility] Comment on above: Performed By: #### L 100.0100, L500.2500 ####[facility] [address] [place], [address] Hemoglobin (Bld) [Mass/Vol] 10.9 g/dL Low 12.0-15.0 [facility] Comment on above: Performed By: #### L 100.0100, L500.2500 ####[facility] [address] [place], [address] IG% 0.500 Normal 0.0-0.9 [facility] Comment on above: Result Comment: IG% - Immature Granulocytes (promyelocytes, myelocytes andmetamyelocytes) > 1% indicates that a LEFT SHIFT is Present. Performed By: #### L 100.0100, L500.2500 ####[facility] [address] [place], [address] Lymphocytes/100 WBC (Bld) 13.5 % Low 19-41 [facility] Comment on above: Performed By: #### L 100.0100, L500.2500 ####[facility] [address] [place], [address] MCH (RBC) [Entitic mass] 27.5 pg Normal 27.0-32.0 [facility] Comment on above: Performed By: #### L 100.0100, L500.2500 ####[facility] [address] [place], [address] MCHC (RBC) [Mass/Vol] 31.6 g/dL Low 32-36 [facility] Comment on above: Performed By: #### L 100.0100, L500.2500 ####[facility] [address] [place], [address] MCV (RBC) [Entitic vol] 87.1 fL Normal 81-99 [facility] Comment on above: Performed By: #### L 100.0100, L500.2500 ####[facility] [address] [place], [address] Monocytes/100 WBC (Bld) 10.0 % Normal 0-10 [facility] Comment on above: Performed By: #### L 100.0100, L500.2500 ####[facility] [address] [place], [address] Neutrophils/100 WBC (Bld) 75.6 % High 47-70 [facility] Comment on above: Performed By: #### L 100.0100, L500.2500 ####[facility] [address] [place], [address] Nucleated RBC (Bld) [#/Vol] 0 10*3/uL Normal 0-5 [facility] Comment on above: Performed By: #### L 100.0100, L500.2500 ####[facility] [address] [place], [address] Platelet mean volume (Bld) [Entitic vol] 11.1 fL Normal 6.2-12.0 [facility] Comment on above: Performed By: #### L 100.0100, L500.2500 ####[facility] [address] [place], [address] Platelets (Bld) [#/Vol] 286 10*3/uL Normal 150-450 [facility] Comment on above: Performed By: #### L 100.0100, L500.2500 ####[facility] [address] [place], [address] RBC (Bld) [#/Vol] 3.96 10*6/uL Low 4.2-5.4 [facility] Comment on above: Performed By: #### L 100.0100, L500.2500 ####[facility] [address] [place], [address] RDW SD 39.9 fl Normal 35.1-43.9 [facility] Comment on above: Performed By: #### L 100.0100, L500.2500 ####[facility] [address] [place], [address] WBC (Bld) [#/Vol] 13.3 10*3/uL High 4.4-11.0 [facility] Comment on above: Performed By: #### L 100.0100, L500.2500 ####[facility] [address] [place], [address] Lipid Profileon 01-09-2024 Cholesterol [Mass/Vol] 135 mg/dL Normal 200 [facility] Comment on above: Order Comment: Comme nts: NPO at [place] prior to lipid panel Result Comment: <200 mg/dL Desirable 200-240 mg/dL Borderline >240 mg/dL High Risk Performed By: #### L 500.4100 ####[facility] [address] [place], [address] Cholesterol in HDL [Mass/Vol] 68 mg/dL Normal [facility] Comment on above: Order Comment: Comme nts: NPO at [place] prior to lipid panel Result Comment: The drugs N-Acetylcysteine and Metamizole may falselydepress this assay. Reference Range HDL <40 mg/dL Low HDL Cholesterol HDL >or= 60 mg/dL High HDL Cholesterol Performed By: #### L 500.4100 ####[facility] [address] [place], [address] Cholesterol in LDL [Mass/Vol] 54 mg/dL Normal 0-130 [facility] Comment on above: Order Comment: Comme nts: NPO at [place] prior to lipid panel Performed By: #### L 500.4100 ####[facility] [address] [place], [address] Cholesterol in VLDL [Mass/Vol] 13 mg/dL Normal 5-40 [facility] Comment on above: Order Comment: Comme nts: NPO at [place] prior to lipid panel Performed By: #### L 500.4100 ####[facility] [address] [place], [address] Triglyceride [Mass/Vol] 64 mg/dL Normal [facility] Comment on above: Order Comment: Comme nts: NPO at [place] prior to lipid panel Result Comment: The drugs N-Acetylcysteine and Metamizole may falselydepress this assay.Serum Triglycerides Reference Interval Normal <150 mg/dL Borderline high 150 - 199 mg/dL High 200 - 499 mg/dL Very High > or = 500 mg/dL Performed By: #### L 500.4100 ####[facility] [address] [place], [address] 12 Lead EKGon 01-08-2024 [address] [facility] Ammoniaon 01-08-2024 Ammonia (P) [Moles/Vol] 13.0 umol/L Normal 11-32 [facility] Comment on above: Performed By: #### L 500.3400, M200.1000, L503.6005, L503.5510 ####[facility] [address] [place], [address] Basic Metabolic Profile (BMP )on 01-08-2024 BUN/CRE 18.2 RATIO Normal 10-20 [facility] Comment on above: Order Comment: 'TROP ' Serial specimen #1, #2 or #3: 1 Performed By: #### L 300.3900, L300.4310, L100.0100, L500.2500, L501.4020 ####[facility] [address] [place], [address] CA,Total 10.3 mg/dL High 8.5-10.1 [facility] Comment on above: Order Comment: 'TROP ' Serial specimen #1, #2 or #3: 1 Performed By: #### L 300.3900, L300.4310, L100.0100, L500.2500, L501.4020 ####[facility] [address] [place], [address] Chloride [Moles/Vol] 93 mmol/L Low 98-[address] [facility] Comment on above: Order Comment: 'TROP ' Serial specimen #1, #2 or #3: 1 Performed By: #### L 300.3900, L300.4310, L100.0100, L500.2500, L501.4020 ####[facility] [address] [place], [address] CO2 [Moles/Vol] 31.0 mmol/L Normal 21.0-32.0 [facility] Comment on above: Order Comment: 'TROP ' Serial specimen #1, #2 or #3: 1 Performed By: #### L 300.3900, L300.4310, L100.0100, L500.2500, L501.4020 ####[facility] [address] [place], [address] Creatinine [Mass/Vol] 1.43 mg/dL High 0.55-1.02 [facility] Comment on above: Order Comment: 'TROP ' Serial specimen #1, #2 or #3: 1 Result Comment: The validity of the calculated GFR GFRAA in patients over70 years has not been determined. Clinical correlation isessential. Performed By: #### L 300.3900, L300.4310, L100.0100, L500.2500, L501.4020 ####[facility] [address] [place], [address] ECRCL 31.33 ml/min Normal [facility] Comment on above: Order Comment: 'TROP ' Serial specimen #1, #2 or #3: 1 Performed By: #### L 300.3900, L300.4310, L100.0100, L500.2500, L501.4020 ####[facility] [address] [place], [address] EST GFR - AA 46 mL/min Low >60 [facility] Comment on above: Order Comment: 'TROP ' Serial specimen #1, #2 or #3: 1 Result Comment: Afri can Mongolian GFR Calc Performed By: #### L 300.3900, L300.4310, L100.0100, L500.2500, L501.4020 ####[facility] [address] [place], [address] GAP 6 Normal 5-15 [facility] Comment on above: Order Comment: 'TROP ' Serial specimen #1, #2 or #3: 1 Performed By: #### L 300.3900, L300.4310, L100.0100, L500.2500, L501.4020 ####[facility] [address] [place], [address] GFR/1.73 sq M.predicted among non-blacks MDRD (S/P/Bld) [Vol rate/Area] 38 mL/min/{1.73_m2} Low >60 [facility] Comment on above: Order Comment: 'TROP ' Serial specimen #1, #2 or #3: 1 Result Comment: Non- GFR Calc Performed By: #### L 300.3900, L300.4310, L100.0100, L500.2500, L501.4020 ####[facility] [address] [place], [address] Glucose [Mass/Vol] 566 mg/dL Invalid Interpretation Code [address]106 [facility] Comment on above: Order Comment: 'TROP ' Serial specimen #1, #2 or #3: 1 Result Comment: Crit ical Result(s) Called at: 08:03:04 01/08/2024 by:SAI Saldana. Results read back by same.Glucose result greater than or equal to 200 mg/dLsuggests DIABETES MELLITUS per A.D.A. criteria. Performed By: #### L 300.3900, L300.4310, L100.0100, L500.2500, L501.4020 ####[facility] [address] [place], [address] Potassium [Moles/Vol] 4.0 mmol/L Normal 3.5-5.1 [facility] Comment on above: Order Comment: 'TROP ' Serial specimen #1, #2 or #3: 1 Performed By: #### L 300.3900, L300.4310, L100.0100, L500.2500, L501.4020 ####[facility] [address] [place], [address] Sodium [Moles/Vol] 130 mmol/L Low 136-145 [facility] Comment on above: Order Comment: 'TROP ' Serial specimen #1, #2 or #3: 1 Performed By: #### L 300.3900, L300.4310, L100.0100, L500.2500, L501.4020 ####[facility] [address] [place], [address] Urea nitrogen [Mass/Vol] 26 mg/dL High 7-18 [facility] Comment on above: Order Comment: 'TROP ' Serial specimen #1, #2 or #3: 1 Performed By: #### L 300.3900, L300.4310, L100.0100, L500.2500, L501.4020 ####[facility] [address] [place], [address] Bedside Glucoseon 01-08-2024 FINGERSTICK GLU 240 mg/dL High 74-106 [facility] Comment on above: Result Comment: ADAL GEMENT OF PATIENT CARE PER NURSING PROTOCOL Performed By: #### L 501.080 ####[facility] [address] [place], [address] FINGERSTICK GLU 340 mg/dL High 74-106 [facility] Comment on above: Result Comment: ADAL GEMENT OF PATIENT CARE PER NURSING PROTOCOL Performed By: #### L 501.080 ####[facility] [address] [place], [address] FINGERSTICK GLU > 500 Invalid Interpretation Code 74-106 [facility] Comment on above: Result Comment: Dr Prisca griffith FollowedMANAGEMENT OF PATIENT CARE PER NURSING PROTOCOL Performed By: #### L 501.080 ####[facility] [address] [place], [address] Brain W/WO Contraston 2023 Brain W/WO Contrast Normal [facility] CBC W/Diff, Automatedon 12-15 Absolute Lymph 0.82 X10 3/uL Low 0.83-4.51 [facility] Comment on above: Performed By: #### L 300.3900, L300.4310, L100.0100, L500.2500, L501.4020 ####[facility] [address] [place], [address] Absolute Neut 10.9 X10 3/uL High 2.0-7.7 [facility] Comment on above: Performed By: #### L 300.3900, L300.4310, L100.0100, L500.2500, L501.4020 ####[facility] [address] [place], [address] Basophils/100 WBC (Bld) 0.6 % Normal 0-1 [facility] Comment on above: Performed By: #### L 300.3900, L300.4310, L100.0100, L500.2500, L501.4020 ####[facility] [address] [place], [address] Eosinophils/100 WBC (Bld) 0.4 % Normal 0-5 [facility] Comment on above: Performed By: #### L 300.3900, L300.4310, L100.0100, L500.2500, L501.4020 ####[facility] [address] [place], [address] Erythrocyte distribution width (RBC) [Ratio] 12.2 % Normal 11.6-14.6 [facility] Comment on above: Performed By: #### L 300.3900, L300.4310, L100.0100, L500.2500, L501.4020 ####[facility] [address] [place], [address] Hematocrit (Bld) [Volume fraction] 40.1 % Normal 37-47 [facility] Comment on above: Performed By: #### L 300.3900, L300.4310, L100.0100, L500.2500, L501.4020 ####[facility] [address] [place], [address] Hemoglobin (Bld) [Mass/Vol] 12.7 g/dL Normal 12.0-15.0 [facility] Comment on above: Performed By: #### L 300.3900, L300.4310, L100.0100, L500.2500, L501.4020 ####[facility] [address] [place], [address] IG% 0.200 Normal 0.0-0.9 [facility] Comment on above: Result Comment: IG% - Immature Granulocytes (promyelocytes, myelocytes andmetamyelocytes) > 1% indicates that a LEFT SHIFT is Present. Performed By: #### L 300.3900, L300.4310, L100.0100, L500.2500, L501.4020 ####[facility] [address] [place], [address] Lymphocytes/100 WBC (Bld) 6.7 % Low 19-41 [facility] Comment on above: Performed By: #### L 300.3900, L300.4310, L100.0100, L500.2500, L501.4020 ####[facility] [address] [place], [address] MCH (RBC) [Entitic mass] 27.7 pg Normal 27.0-32.0 [facility] Comment on above: Performed By: #### L 300.3900, L300.4310, L100.0100, L500.2500, L501.4020 ####[facility] [address] [place], [address] MCHC (RBC) [Mass/Vol] 31.7 g/dL Low 32-36 [facility] Comment on above: Performed By: #### L 300.3900, L300.4310, L100.0100, L500.2500, L501.4020 ####[facility] [address] [place], [address] MCV (RBC) [Entitic vol] 87.6 fL Normal 81-99 [facility] Comment on above: Performed By: #### L 300.3900, L300.4310, L100.0100, L500.2500, L501.4020 ####[facility] [address] [place], [address] Monocytes/100 WBC (Bld) 3.7 % Normal 0-10 [facility] Comment on above: Performed By: #### L 300.3900, L300.4310, L100.0100, L500.2500, L501.4020 ####[facility] [address] [place], [address] Neutrophils/100 WBC (Bld) 88.4 % High 47-70 [facility] Comment on above: Performed By: #### L 300.3900, L300.4310, L100.0100, L500.2500, L501.4020 ####[facility] [address] [place], [address] Nucleated RBC (Bld) [#/Vol] 0 10*3/uL Normal 0-5 [facility] Comment on above: Performed By: #### L 300.3900, L300.4310, L100.0100, L500.2500, L501.4020 ####[facility] [address] [place], [address] Platelet mean volume (Bld) [Entitic vol] 11.1 fL Normal 6.2-12.0 [facility] Comment on above: Performed By: #### L 300.3900, L300.4310, L100.0100, L500.2500, L501.4020 ####[facility] [address] [place], [address] Platelets (Bld) [#/Vol] 331 10*3/uL Normal 150-450 [facility] Comment on above: Performed By: #### L 300.3900, L300.4310, L100.0100, L500.2500, L501.4020 ####[facility] [address] [place], [address] RBC (Bld) [#/Vol] 4.58 10*6/uL Normal 4.2-5.4 [facility] Comment on above: Performed By: #### L 300.3900, L300.4310, L100.0100, L500.2500, L501.4020 ####[facility] [address] [place], [address] RDW SD 39.3 fl Normal 35.1-43.9 [facility] Comment on above: Performed By: #### L 300.3900, L300.4310, L100.0100, L500.2500, L501.4020 ####[facility] [address] [place], [address] WBC (Bld) [#/Vol] 12.3 10*3/uL High 4.4-11.0 [facility] Comment on above: Performed By: #### L 300.3900, L300.4310, L100.0100, L500.2500, L501.4020 ####[facility] [address] [place], [address] Chest 1 Viewon 01-08-20[address] [facility] Echo Completeon 01-08-[address] [facility] Emergency Department Summary on 01-08-2024 Emergency Department Summary Normal [facility] H AND P Exam - Hospitaliston 01-08-2024 H&P Exam - Hospitalist Normal [facility] Hemoglobin A1con 01-08-2024 HbA1c (Bld) [Mass fraction] 10.6 % High 3.8-5.6 [facility] Comment on above: Result Comment: Norm al < 5.7 % Prediabetic 5.7 - 6.4 % Diabetic >or= 6.5 % Please note range changes. Performed By: #### L 501.9985, L501.9520, L506.0400 ####[facility] [address] [place], [address] L501.4020on 01-08-2024 TROPONIN-I HS 54 pg/mL Normal 3.0-54.0 [facility] Comment on above: Order Comment: 'TROP ' Serial specimen #1, #2 or #3: 1 Result Comment: Plea se Note: New Test Units and Gender Specific Reference Ranges. For more information see Policy Stat Procedure [place] High Sensitivity Troponin (TNIH) and attachments. Performed By: #### L 300.3900, L300.4310, L100.0100, L500.2500, L501.4020 ####[facility] [address] [place], [address] Lactic Acidon 01-08-2024 Lactate [Moles/Vol] 1.7 mmol/L Normal 0.4-1.9 [facility] Comment on above: Order Comment: PT IN ULTRASOUND, FLOOR WILL CALL WHEN BACK Performed By: #### L 503.6005 ####[facility] [address] [place], [address] Lactate [Moles/Vol] 2.1 mmol/L Invalid Interpretation Code 0.4-1.9 [facility] Comment on above: Order Comment: Y Result Comment: Crit ical Result(s) Called at: 09:10:50 01/08/2024 by: BALJINDER TO KARLOS GUADALUPE. Results read back by same. Performed By: #### L 500.3400, M200.1000, L503.6005, L503.5510 ####[facility] [address] [place], [address] Liver Profileon 01-08-2024 Albumin [Mass/Vol] 4.2 g/dL Normal 3.2-5.0 [facility] Comment on above: Performed By: #### L 500.3400, M200.1000, L503.6005, L503.5510 ####[facility] [address] [place], [address] ALK P 176 U/L High 45-117 [facility] Comment on above: Performed By: #### L 500.3400, M200.1000, L503.6005, L503.5510 ####[facility] [address] [place], [address] ALT [Catalytic activity/Vol] 19 U/L Normal 13-56 [facility] Comment on above: Performed By: #### L 500.3400, M200.1000, L503.6005, L503.5510 ####[facility] [address] [place], [address] AST [Catalytic activity/Vol] 17 U/L Normal 15-37 [facility] Comment on above: Performed By: #### L 500.3400, M200.1000, L503.6005, L503.5510 ####[facility] [address] [place], [address] Bilirubin [Mass/Vol] 0.60 mg/dL Normal 0.20-1.[address] [facility] Comment on above: Result Comment: For patients on eltrombopag therapy, use of Dimension [place] TBIL is not recommended. Performed By: #### L 500.3400, M200.1000, L503.6005, L503.5510 ####[facility] [address] [place], [address] Bilirubin.direct [Mass/Vol] 0.21 mg/dL Normal 0.00-0.30 [facility] Comment on above: Performed By: #### L 500.3400, M200.1000, L503.6005, L503.5510 ####[facility] [address] [place], [address] Globulin (S) [Mass/Vol] 4.2 g/dL Normal 2.2-4.2 [facility] Comment on above: Performed By: #### L 500.3400, M200.1000, L503.6005, L503.5510 ####[facility] [address] [place], [address] T PROT 8.4 g/dL High 6.4-8.2 [facility] Comment on above: Performed By: #### L 500.3400, M200.1000, L503.6005, L503.5510 ####[facility] [address] [place], [address] M100.678on 01-08-2024 M100.678 SARS-CoV-2 (COVID 19 ) Negative INFLUENZA A Negative INFLUENZA B Negative RSV PCR Negative Normal [facility] Comment on above: Performed By: #### M 100.678 ####[facility] [address] [place], [address] MR/CON.PCM.NEon 01-08-2024 MR/CON.PCM.NE Normal [facility] Partial Thromboplast Timeon 01-08-2024 aPTT Coag (Bld) [Time] 34.3 s Normal 24.1-36.2 [facility] Comment on above: Performed By: #### L 300.3900, L300.4310, L100.0100, L500.2500, L501.4020 ####[facility] [address] [place], [address] Prothrombin Time w/INRon INR Coag (PPP) [Relative time] 1.2 {INR} Normal [facility] Comment on above: Performed By: #### L 300.3900, L300.4310, L100.0100, L500.2500, L501.4020 ####[facility] [address] [place], [address] PT Coag (PPP) [Time] 15.1 s High 11.7-14.[address] [facility] Comment on above: Performed By: #### L 300.3900, L300.4310, L100.0100, L500.2500, L501.4020 ####[facility] [address] [place], [address] STROKE Brain/Head without Co nton 01-08-2024 STROKE Brain/Head without Cont Normal [facility] STROKE CTA Head AND Neck W/C onon 01-08-2024 STROKE CTA Head AND Neck W/Con Normal [facility] T4 Free Directon 01-08-2024 T4 FREE DIRECT 1.31 ng/dL Normal 0.76-1.46 [facility] Comment on above: Performed By: #### L 501.9985, L501.9520, L506.0400 ####[facility] [address] [place], [address] Thyroidon 01-08-[address] [facility] Thyroid Stim Hormone (TSH)on 01-08-2024 TSH 0.39 uIU/mL Normal 0.358-3.74 [facility] Comment on above: Performed By: #### L 501.9985, L501.9520, L506.0400 ####[facility] [address] [place], [address] Urinalysis, Completeon 01-07 RBC 0-5 SEEN Normal 0-5 [facility] Comment on above: Order Comment: COLLE CTOR TO SPECIFY Performed By: #### L 400.0001 ####[facility] [address] [place], [address] BACTERIA 0 SEEN Normal None Seen [facility] Comment on above: Order Comment: COLLE CTOR TO SPECIFY Performed By: #### L 400.0001 ####[facility] [address] [place], [address] EPI,SQUAMOUS 0 SEEN Normal 5-10 [facility] Comment on above: Order Comment: LUCIA CTOR TO SPECIFY Performed By: #### L 400.0001 ####[facility] [address] [place], [address] Mucus Ql (Urine sed) [address] [facility] Comment on above: Order Comment: COLLE CTOR TO SPECIFY Performed By: #### L 400.0001 ####[facility] [address] [place], [address] WBC 0 SEEN Normal 0-5 [facility] Comment on above: Order Comment: COLLE CTOR TO SPECIFY Performed By: #### L 400.0001 ####[facility] [address] [facility] [id number] Urine Drug Screen (VISTA)on 01-08-2024 AMPHETAMINES Negative Normal <1000 ng/mL [facility] Comment on above: Performed By: #### L 505.5000 ####[facility] [address] [place] [id number] BARBITIURATES Negative Normal < 200 ng/mL [facility] Comment on above: Performed By: #### L 505.5000 ####[facility] [address] [place], [address] BENZODIAZIPINE Negative Normal < 200 ng/mL [facility] Comment on above: Performed By: #### L 505.5000 ####[facility] [address] [place] [id number] COCAINE Negative Normal < 300 ng/mL [facility] Comment on above: Performed By: #### L 505.5000 ####[facility] [address] [place], [address] ECSTACY Negative Normal < 500 ng/mL [facility] Comment on above: Performed By: #### L 505.5000 ####[facility] [id number] [place] [id number] METHADONE Negative Normal < 300 ng/mL [facility] Comment on above: Performed By: #### L 505.5000 ####[facility] [id number] [place], [address] OPIATES Negative Normal < 300 ng/mL [facility] Comment on above: Performed By: #### L 505.5000 ####[facility] [id number] [place], [address] PCP Negative Normal < 25 ng/mL [facility] Comment on above: Performed By: #### L 505.5000 ####[facility] [id number] [place], [address] THC Negative Normal < 50 ng/mL [facility] Comment on above: Performed By: #### L 505.5000 ####[facility] [id number] [place], [address] VISTA UDS PH [address] [facility] Comment on above: Performed By: #### L 505.5000 ####[facility] [address] [place], [address] Vital Signs Date Time Vital Sign Value Performing Clinician Facility 06-03-2024 13:44-0500 Body mass index (BMI) [Ratio] 30.65 kg/m2 Teressa Brennan Work Phone: [facility] 06-03-2024 13:44-0500 Body temperature 97.11 [degF] Teressa Brennan Work Phone: [facility] 06-03-2024 13:44-0500 Body weight 68.04 kg Teressa Brennan Work Phone: [facility] 06-03-2024 13:44-0500 Diastolic blood pressure 77 mm[Hg] Teressa Brennan Work Phone: [facility] 06-03-2024 13:44-0500 Heart rate 78 /min Teressa Brennan Work Phone: [facility] 06-03-2024 13:44-0500 SaO2% (BldA) [Mass fraction] 98 % Teressa Brennan Work Phone: [facility] 06-03-2024 13:44-0500 Systolic blood pressure 155 mm[Hg] Teressa Brennan Work Phone: [facility] 04-29-2024 10:11-0400 Body temperature 98.2 [degF] Treatment Wstr Work Phone: [facility] 04-29-2024 10:11-0400 Diastolic blood pressure 75 mm[Hg] Treatment Wstr Work Phone: [facility] 04-29-2024 10:11-0400 Heart rate 78 /min Treatment Wstr Work Phone: [facility] 04-29-2024 10:11-0400 Respiratory rate 16 /min Treatment Wstr Work Phone: [facility] 04-29-2024 10:11-0400 SaO2% (BldA) [Mass fraction] 98 % Treatment Wstr Work Phone: [facility] 04-29-2024 10:11-0400 Systolic blood pressure 144 mm[Hg] Treatment Wstr Work Phone: [facility] 04-23-2024 12:42-0400 Body temperature 98.2 [degF] Treatment Wstr Work Phone: [facility] 04-23-2024 12:42-0400 Diastolic blood pressure 64 mm[Hg] Treatment Wstr Work Phone: [facility] 04-23-2024 12:42-0400 Heart rate 85 /min Treatment Wstr Work Phone: [facility] 04-23-2024 12:42-0400 SaO2% (BldA) [Mass fraction] 98 % Treatment Wstr Work Phone: [facility] 04-23-2024 12:42-0400 Systolic blood pressure 126 mm[Hg] Treatment Wstr Work Phone: [facility] 04-21-2024 10:00-0400 Body temperature 98.1 [degF] Treatment Wstr Work Phone: [facility] 04-21-2024 10:00-0400 Diastolic blood pressure 63 mm[Hg] Treatment Wstr Work Phone: [facility] 04-21-2024 10:00-0400 Heart rate 70 /min Treatment Wstr Work Phone: [facility] 04-21-2024 10:00-0400 Respiratory rate 14 /min Treatment Wstr Work Phone: [facility] 04-21-2024 10:00-0400 SaO2% (BldA) [Mass fraction] 98 % Treatment Wstr Work Phone: [facility] 04-21-2024 10:00-0400 Systolic blood pressure 127 mm[Hg] Treatment Wstr Work Phone: [facility] 04-17-2024 11:11-0400 Diastolic blood pressure 72 mm[Hg] Treatment Wstr Work Phone: [facility] 04-17-2024 11:11-0400 Heart rate 90 /min Treatment Wstr Work Phone: [facility] 04-17-2024 11:11-0400 Systolic blood pressure 147 mm[Hg] Treatment Wstr Work Phone: [facility] 04-17-2024 10:00-0400 Body temperature 97.39 [degF] Treatment Wstr Work Phone: [facility] 04-08-2024 14:11-0400 Body height 149 cm Adan Mayi DO Work Phone: [facility] 04-08-2024 14:11-0400 Body mass index (BMI) [Ratio] 29.93 kg/m2 Adan Olverai DO Work Phone: [facility] 04-08-2024 14:11-0400 Body temperature 97.5 [degF] Adan Scott DO Work Phone: [facility] 04-08-2024 14:11-0400 Body weight 66.45 kg Adan Scott DO Work Phone: [facility] 04-08-2024 14:11-0400 Diastolic blood pressure 69 mm[Hg] Adna Scott DO Work Phone: [facility] 04-08-2024 14:11-0400 Heart rate 85 /min Adan Scott DO Work Phone: [facility] 04-08-2024 [id number] SaO2% (BldA) [Mass fraction] 99 % Adan Scott DO Work Phone: [facility] 04-08-2024 [id number] Systolic blood pressure 129 mm[Hg] Adan Olverai DO Work Phone: [facility] 02-05-2024 15:28-0400 Body height 154.9 cm Annie Kearney MD Work Phone: [facility] 02-05-2024 15:28-0400 Body temperature 98.8 [degF] Annie Kearney MD Work Phone: [facility] 02-05-2024 15:28-0400 Diastolic blood pressure 76 mm[Hg] Annie Kearney MD Work Phone: [facility] 02-05-2024 15:28-0400 Heart rate 68 /min Annie Kearney MD Work Phone: [facility] 02-05-2024 15:28-0400 Systolic blood pressure 161 mm[Hg] Annie Kearney MD Work Phone: [facility] 01-30-2024 11:57-0400 Body temperature 97.7 [degF] Natividad Ramirez MD Work Phone: [facility] 01-30-2024 11:57-0400 Diastolic blood pressure 65 mm[Hg] Natividad Ramirez MD Work Phone: [facility] 01-30-2024 11:57-0400 Heart rate 73 /min Natividad Ramirez MD Work Phone: [facility] 01-30-2024 11:57-0400 Respiratory rate 18 /min Natividad Ramirez MD Work Phone: [facility] 01-30-2024 11:57-0400 SaO2% (BldA) [Mass fraction] 98 % Natividad Ramirez MD Work Phone: [facility] 01-30-2024 11:57-0400 Systolic blood pressure 147 mm[Hg] Natividad Ramirez MD Work Phone: [facility] 01-27-2024 00:00-0400 Body mass index (BMI) [Ratio] 29.37 kg/m2 Natividad Ramirez MD Work Phone: [facility] 01-27-2024 00:00-0400 Body weight 70.5 kg Natividad Ramirez MD Work Phone: [facility] 01-11-2024 11:49-0400 Body height 154.9 cm Natividad Ramirez MD Work Phone: [facility] Encounters Encounter Date Encounter Type Care Provider Facility Start: 08-19-2024 End: 08-19-[address] [facility] Start: 08-19-2024 End: 08-19-2024 ambulatory Julieta Fast Facility:[facility] Start: 06-20-2024 End: 07-06-2024 Evaluation and management of inpatient Julieta Fast Facility:[facility] Start: 06-17-2024 ambulatory Kasia Arnold Facility:[facility] Start: 06-17-2024 End: 06-20-2024 Evaluation and management of inpatient Kasia Arnold Facility:[facility] Start: 06-03-2024 End: 06-03-2024 Patient encounter procedure Teressa Brennan Work Phone: Hematology/Oncology Start: 06-03-2024 End: 06-03-2024 ambulatory Teressa Brennan Work Phone: Hematology/Oncology Comment on above: Iron deficiency anem ia secondary to inadequate dietary iron intake (Primary Dx); Iron deficiency anemia, unspecified iron deficiency anemia type Start: 04-29-2024 End: 04-29-2024 ambulatory ADAN SCOTT Hematology/Oncology Comment on above: Iron malabsorption ( Primary Dx); Iron deficiency anemia secondary to inadequate dietary iron intake Start: 04-29-2024 End: 04-29-2024 Patient encounter procedure Treatment Rm 15 [facility] Work Phone: Hematology/Oncology Start: 04-28-2024 End: 04-28-2024 Telephone encounter Samantha CORRAL Hematology/Oncology Comment on above: SOCIAL WORK SERVICES (1ST TIME TREATMENT) Start: 04-25-2024 End: 04-25-2024 ambulatory ADAN SCOTT Hematology/Oncology Comment on above: Iron deficiency anem ia secondary to inadequate dietary iron intake (Primary Dx); Iron malabsorption Start: 04-25-2024 End: 04-25-2024 Patient encounter procedure Treatment Rm 14 [facility] [employer] Work Phone: Hematology/Oncology Start: 04-23-2024 End: 04-23-2024 ambulatory ADAN SCOTT Hematology/Oncology Comment on above: Iron malabsorption ( Primary Dx); Iron deficiency anemia secondary to inadequate dietary iron intake Start: 04-23-2024 End: 04-23-2024 Patient encounter procedure Treatment Rm 15 [facility] [employer] Work Phone: Hematology/Oncology Start: 04-21-2024 End: 04-21-2024 ambulatory ADAN SCOTT Hematology/Oncology Comment on above: Iron malabsorption ( Primary Dx); Iron deficiency anemia secondary to inadequate dietary iron intake Start: 04-21-2024 End: 04-21-2024 Patient encounter procedure Treatment Rm 14 [facility] [employer] Work Phone: Hematology/Oncology Start: 04-17-2024 End: 04-17-2024 ambulatory ADAN SCOTT Hematology/Oncology Comment on above: Iron deficiency anem ia secondary to inadequate dietary iron intake (Primary Dx); Iron malabsorption Start: 04-17-2024 End: 04-17-2024 Patient encounter procedure Treatment Rm 16 [facility] Work Phone: Hematology/Oncology Start: 04-15-2024 End: 04-15-2024 Telephone encounter Financial Navigator [employer] Work Phone: Financial Services Comment on above: Benefits Investigati on Start: 04-09-2024 End: 04-09-2024 Telephone encounter Adan Scott DO Work Phone: Hematology/Oncology Start: 04-08-2024 End: 04-08-2024 ambulatory Adan Scott DO Work Phone: Hematology/Oncology Comment on above: Iron deficiency anem ia, unspecified iron deficiency anemia type (Primary Dx) Start: 04-08-2024 End: 04-08-2024 Patient encounter procedure Adan Childs Tyler SINGER Work Phone: Hematology/Oncology Start: 02-07-2024 ambulatory Julieta Fast Facility:[facility] Start: 02-05-2024 ambulatory ANNIE KEARNEY Facility:[facility] Start: 02-05-2024 End: 02-05-2024 Patient encounter procedure Annie Kearney MD Work Phone: Trauma Surgery [facility] Comment on above: SBO (small bowel obs truction) (Primary Dx) Start: 01-31-2024 ambulatory Julieta Fast Facility:[facility] Start: 01-11-2024 End: 01-30-2024 Evaluation and management of inpatient Natividad Ramirez MD Work Phone: [facility] Start: 01-08-2024 ambulatory Julieta Fast Facility:[facility] Start: 01-08-2024 ambulatory Bc Zeng Fac ility:[facility] Start: 01-08-2024 End: 01-11-2024 Evaluation and management of inpatient Bc Zeng Facility:[facility] Procedures Date Procedure Procedure Detail Performing Clinician Start: 01-30-2024 Glucose measurement, blood Jaime Chambers MD Work Phone: Start: 01-30-2024 Glucose measurement, blood Jaime Chambers MD Work Phone: Start: 01-30-2024 Basic metabolic pane l calcium total Martin Kapadia MD Work Phone: Start: 01-29-2024 Glucose measurement, blood Jaime Chambers MD Work Phone: Start: 01-29-2024 Glucose measurement, blood Jaime Chambers MD Work Phone: Start: 01-29-2024 Glucose measurement, blood Jaime Chambers MD Work Phone: Start: 01-29-2024 Glucose measurement, blood Jaime Chambers MD Work Phone: Start: 01-29-2024 Basic metabolic pane l calcium total Martin Kapadia MD Work Phone: Start: 01-28-2024 Glucose measurement, blood Jaime Chambers MD Work Phone: Start: 01-28-2024 Glucose measurement, blood Jaime Chambers MD Work Phone: Start: 01-28-2024 Glucose measurement, blood Jaime Chambers MD Work Phone: Start: 01-28-2024 Glucose measurement, blood Jaime Chambers MD Work Phone: Start: 01-28-2024 Basic metabolic pane l calcium total Martin Kapadia MD Work Phone: Start: 01-27-2024 Glucose measurement, blood Jaime Chambers MD Work Phone: Start: 01-27-2024 Glucose measurement, blood Jaime Chambers MD Work Phone: Start: 01-27-2024 Glucose measurement, blood Jaime Chambers MD Work Phone: Start: 01-27-2024 Glucose measurement, blood Jaime Chambers MD Work Phone: Start: 01-27-2024 Basic metabolic pane l calcium total Martin Kapadia MD Work Phone: Start: 01-26-2024 Blood count complete automated Martin Kapadia MD Work Phone: Start: 01-26-2024 Glucose measurement, blood Jaime Chambers MD Work Phone: Start: 01-26-2024 Glucose measurement, blood Jaime Chambers MD Work Phone: Start: 01-26-2024 Glucose measurement, blood Jaime Chambers MD Work Phone: Start: 01-26-2024 Radiologic exam abdo men 1 view Jaime Chambers MD Work Phone: Start: 01-26-2024 Glucose measurement, blood Jaime Chambers MD Work Phone: Start: 01-25-2024 Basic metabolic pane l calcium total Martin Kapadia MD Work Phone: Start: 01-25-2024 Glucose measurement, blood Jaime Chambers MD Work Phone: Start: 01-25-2024 Glucose measurement, blood Jaime Chambers MD Work Phone: Start: 01-25-2024 Glucose measurement, blood Jaime Chambers MD Work Phone: Start: 01-25-2024 Glucose measurement, blood Jaime Chambers MD Work Phone: Start: 01-25-2024 Radiologic exam abdo men 1 view Jaime Chambers MD Work Phone: Start: 01-25-2024 Basic metabolic pane l calcium total Martin Kapadia MD Work Phone: Start: 01-24-2024 Glucose measurement, blood Jaime Chambers MD Work Phone: Start: 01-24-2024 Glucose measurement, blood Jaime Chambers MD Work Phone: Start: 01-24-2024 Glucose measurement, blood Jaime Chamebrs MD Work Phone: Start: 01-24-2024 Radiologic exam abdo men 1 view Josh Camacho MD Work Phone: Start: 01-24-2024 Glucose measurement, blood Jaime Chambers MD Work Phone: Start: 01-24-2024 Glucose measurement, blood Jaime Chambers MD Work Phone: Start: 01-24-2024 Basic metabolic pane l calcium total Martin Kapadia MD Work Phone: Start: 01-24-2024 Glucose measurement, blood Jaime Chambers MD Work Phone: Start: 01-23-2024 Glucose measurement, blood Martin Kapadia MD Work Phone: Start: 01-23-2024 Glucose measurement, blood Martin Kapadia MD Work Phone: Start: 01-23-2024 Glucose measurement, blood Martin Kapadia MD Work Phone: Start: 01-23-2024 Basic metabolic pane l calcium total Martin Kapadia MD Work Phone: Start: 01-22-2024 Glucose measurement, blood Martin Kapadia MD Work Phone: Start: 01-22-2024 End: 01-22-2024 Glucose measurement, blood Martin khan MD Work Phone: Start: 01-22-2024 Glucose measurement, blood Martin Kapadia MD Work Phone: Start: 01-22-2024 CARDIAC RHYTHM (SCANNED) Other Other Start: 01-22-2024 End: 01-22-2024 Exploratory laparotomy celiotomy w/wo biopsy spx Jacob Chester MD Work Phone: Start: 01-22-2024 End: 01-22-2024 Laps abd prtm&omentum dx w/wo spec br/wa spx Jacob Chester MD Work Phone: Start: 01-22-2024 Glucose measurement, blood Martin Kapadia MD Work Phone: Start: 01-22-2024 Antibody screen Natividad garcia MD Work Phone: Start: 01-22-2024 ABORH TYPE RECONFIRMATION Marlen Richards DO Work Phone: Start: 01-22-2024 Antibody screen KRISTY KEARNEY Comment on above: Performed By: #### M GIOVANNI, CHM7, HFP #### [facility] [address] [place] [address] Start: 01-22-2024 Bilirubin direct Titus Acevedo MD Work Phone: Start: 01-22-2024 Blood typing serologic abo Titus Acevedo MD Work Phone: Start: 01-22-2024 Glucose measurement, blood Martin Kapadia MD Work Phone: Start: 01-22-2024 Comprehensive metabo lic panel Martin Kapadia MD Work Phone: Start: 01-22-2024 Glucose measurement, blood Martin Kapadia MD Work Phone: Start: 01-22-2024 Ct abdomen & pelvis w/contrast material Titus Acevedo MD Work Phone: Start: 01-21-2024 Radiologic exam abdo men 1 view Titus Acevedo MD Work Phone: Start: 01-21-2024 Glucose measurement, blood Martin Kapadia MD Work Phone: Start: 01-21-2024 Glucose measurement, blood Martin Kapadia MD Work Phone: Start: 01-21-2024 Glucose measurement, blood Martin Kapadia MD Work Phone: Start: 01-21-2024 Glucose measurement, blood Martin Kapadia MD Work Phone: Start: 01-21-2024 Radiologic exam abdo men 1 view Lety Rodriguez MD Work Phone: Start: 01-21-2024 Basic metabolic pane l calcium total Martin Kapadia MD Work Phone: Start: 01-20-2024 Glucose measurement, blood Martin Kapadia MD Work Phone: Start: 01-20-2024 Glucose measurement, blood aMrtin Kapadia MD Work Phone: Start: 01-20-2024 Glucose measurement, blood Martin Kapadia MD Work Phone: Start: 01-20-2024 Glucose measurement, blood Martin aKpadia MD Work Phone: Start: 01-20-2024 Radiologic exam abdo men 1 view Martin Kapadia MD Work Phone: Start: 01-20-2024 Basic metabolic pane l calcium total Martin Kapadia MD Work Phone: Start: 01-19-2024 Glucose measurement, blood Martin Kapadia MD Work Phone: Start: 01-19-2024 Glucose measurement, blood Martin Kapadia MD Work Phone: Start: 01-19-2024 Glucose measurement, blood Martin Kapadia MD Work Phone: Start: 01-19-2024 Glucose measurement, blood Martin Kapadia MD Work Phone: Start: 01-19-2024 Basic metabolic pane l calcium total Martin Kapadia MD Work Phone: Start: 01-19-2024 Radiologic exam abdo men 1 view Mick Alas MD Work Phone: Start: 01-19-2024 Glucose measurement, blood Martin Kapadia MD Work Phone: Start: 01-18-2024 Radiologic exam ches t single view Mick Alas MD Work Phone: Start: 01-18-2024 Drug screen quantita tive vancomycin Rico J Brigitte [facility] Start: 01-18-2024 Glucose measurement, blood Martin Kapadia MD Work Phone: Start: 01-18-2024 Glucose measurement, blood Martin Kapadia MD Work Phone: Start: 01-18-2024 Glucose measurement, blood Martin Kapadia MD Work Phone: Start: 01-18-2024 Glucose measurement, blood Martin Kapadia MD Work Phone: Start: 01-18-2024 Basic metabolic pane l calcium total Martin Kapadia MD Work Phone: Start: 01-17-2024 Glucose measurement, blood Martin Kapadia MD Work Phone: Start: 01-17-2024 Glucose measurement, blood Martin Kapadia MD Work Phone: Start: 01-17-2024 Glucose measurement, blood Martin Kapadia MD Work Phone: Start: 01-17-2024 Glucose measurement, blood Martin Kapadia MD Work Phone: Start: 01-16-2024 Basic metabolic pane l calcium total Martin Kapadia MD Work Phone: Start: 01-16-2024 Drug screen quantita tive vancomycin Ricoradha Boyceuse [facility] Start: 01-16-2024 Glucose measurement, blood Martin Kapadia MD Work Phone: Start: 01-16-2024 Glucose measurement, blood Martin Kapadia MD Work Phone: Start: 01-16-2024 Glucose measurement, blood Martin Kapadia MD Work Phone: Start: 01-16-2024 Glucose measurement, blood Martin Kapadia MD Work Phone: Start: 01-16-2024 Basic metabolic pane l calcium total Sunitha Brian Corley DO Work Phone: Start: 01-15-2024 Glucose measurement, blood Martin Kapadia MD Work Phone: Start: 01-15-2024 Glucose measurement, blood Martin Kapadia MD Work Phone: Start: 01-15-2024 Glucose measurement, blood Martin Kapadia MD Work Phone: Start: 01-15-2024 Glucose measurement, blood Martin Kapadia MD Work Phone: Start: 01-15-2024 Glucose measurement, blood Martin Kapadia MD Work Phone: Start: 01-15-2024 Blood count platelet automated Terrence Augustine MD Work Phone: Start: 01-14-2024 Glucose measurement, blood Sunitha M Jory DO Work Phone: Start: 01-14-2024 Glucose measurement, blood Sunitha M Jory DO Work Phone: Start: 01-14-2024 Glucose measurement, blood Sunitha M Jory DO Work Phone: Start: 01-14-2024 Glucose measurement, blood Sunitha M Jory DO Work Phone: Start: 01-14-2024 Basic metabolic pane l calcium total Sunitha M Blanchard DO Work Phone: Start: 01-13-2024 Drug screen quantita tive vancomycin Roddy P Counts [facility] Work Phone: Start: 01-13-2024 Glucose measurement, blood Sunitha M Blanchard DO Work Phone: Start: 01-13-2024 Glucose measurement, blood Sunitha M Blanchard DO Work Phone: Start: 01-13-2024 Glucose measurement, blood Sunitha M Blanchard DO Work Phone: Start: 01-13-2024 Glucose measurement, blood Sunitha M Blanchard DO Work Phone: Start: 01-13-2024 Basic metabolic pane l calcium total Sunitha M Blanchard DO Work Phone: Start: 01-12-2024 Glucose measurement, blood Sunitha M Blanchard DO Work Phone: Start: 01-12-2024 Glucose measurement, blood Sunitha M Blanchard DO Work Phone: Start: 01-12-2024 Glucose measurement, blood Sunitha M Blanchard DO Work Phone: Start: 01-12-2024 Glucose measurement, blood Sunitha M Blanchard DO Work Phone: Start: 01-12-2024 Assay of magnesium Ko Augustine MD Work Phone: Start: 01-12-2024 Hepatic function panel Alisha Armendariz MD, MPH Work Phone: Start: 01-12-2024 IP CONSULT TO SPEECH THERAPY Ron Hand MD Work Phone: Start: 01-12-2024 Glucose measurement, blood Sunitha M Blanchard DO Work Phone: Start: 01-11-2024 Glucose measurement, blood Sunitha M Jory DO Work Phone: Start: 01-11-2024 IP CONSULT TO SPEECH THERAPY Terrence Augustine MD Work Phone: Start: 01-11-2024 Glucose measurement, blood Sunitha M Jory DO Work Phone: Start: 01-11-2024 Cell count misc body fluids w/differential count Terrence Augustine MD Work Phone: Start: 01-11-2024 Concentration infect ious agents Terrence Augustine MD Work Phone: Start: 01-11-2024 EXTRA STERILE Provider Not In System Start: 01-11-2024 EXTRA TUBES Provider N ot In System Start: 01-11-2024 Glucose body fluid o ther than blood Terrence Augustine MD Work Phone: Start: 01-11-2024 Diagnostic lumbar sp inal puncture w/fluor or ct Terrence Augustine MD Work Phone: Start: 01-11-2024 GENERAL PROCEDURE Delicia Momin RA Start: 01-11-2024 Glucose measurement, blood Natividad Ramirez MD Work Phone: Start: 01-11-2024 Antibody borrelia burgdorferi lyme disease Terrence Augustine MD Work Phone: Start: 01-11-2024 Iaad ia hiv-1 ag w/h iv-1 & hiv-2 antbdy single Terrence Augustine MD Work Phone: Start: 01-11-2024 CBC AND ELECTRONIC DIFF Terrence Augustine MD Work Phone: Start: 01-11-2024 Complete blood count with white cell differential, automated Terrence Augustine MD Work Phone: Start: 01-11-2024 Creatinine blood Terrence Augustine MD Work Phone: Plan of Treatment Date Care Activity Detail Author Start: 04-08-2027 Diabetes Screening Diabetes Screenin g [facility] Start: 12-03-2024 End: 12-03-2024 ambulatory Bowdonsaira Carmona [facility] Comment on above: CBC/IRON STUDIES* 6 MO OV/LABS EARLY* Start: 09-03-2024 End: 09-03-2024 ambulatory 09/03/2024 11:30 AM EST Results Only [place] [facility] [address] [place] [address] CBC/IRON STUDIES* [facility] Comment on above: CBC/IRON STUDIES* Start: 06-03-2024 End: 06-03-2024 [facility]ulatory [facility] Laboratory Comment on above: labs ov Start: 04-29-2024 End: 04-29-2024 ambulatory 04/29/2024 10:30 AM EDT Visit (SP) Office Hematology/Oncology [address] [place] [address] 2ND Hematology/Oncology Comment on above: 2ND Start: 04-25-2024 End: 04-25-2024 ambulatory 04/25/2024 3:30 PM EDT Visit (SP) Office Hematology/Oncology [address] [place] [address] 2ND Hematology/Oncology Comment on above: 2ND Start: 04-23-2024 End: 04-23-2024 ambulatory 04/23/2024 1:00 PM EDT Visit (SP) Office Hematology/Oncology [address] [place] [address] 2ND Hematology/Oncology Comment on above: 2ND Start: 04-21-2024 End: 04-21-2024 ambulatory 04/21/2024 10:00 AM EDT Visit (SP) Office Hematology/Oncology [address] [place] [address] 2ND Hematology/Oncology Comment on above: 2ND Start: 04-17-2024 End: 04-17-2024 ambulatory 04/17/2024 11:00 AM EDT Visit (SP) Office Hematology/Oncology [address] [place] [address] 2nd Hematology/Oncology Comment on above: 2nd Start: 04-08-2024 End: 07-08-2024 Ferritin [Mass/volume] in Serum or Plasma [facility] Comment on above: Expected: 04/08/2024 , Expires: 07/08/2024 Start: 04-08-2024 End: 07-08-2024 Iron and Iron binding capacity panel - Serum or Plasma [facility] Work Phone: Comment on above: Expected: 04/08/2024 , Expires: 07/08/2024 Start: 03-16-2024 Covid-19 Vaccine () Covid-19 Vaccine () [facility] Start: 03-16-2024 Influenza vaccination [facility] Start: 03-13-2024 Tetanus vaccination [facility] Start: 03-13-2024 Urine microalbumin profile DTaP,Tdap,Td Vaccine (2 - Td or Tdap) [facility] Start: 02-05-2024 End: 02-05-2024 ambulatory Trauma Surgery [facility] Start: 11-29-2023 Screening for malign ant neoplasm of breast [facility] Start: 07-16-2023 Advance Directive Discussion Advance Directive Discussion [facility] Start: 03-16-2023 COVID-19 VACCINE ( season) COVID-19 VACCINE () [facility] Start: 03-16-2023 [facility] Start: 2022 RSV Vaccine (1 - 1-d ose 75+ series) RSV Vaccine (1 - 1-dose 75+ series) [facility] Start: 10-16-2015 Pneumococcal Vaccine : 65+ (2 of 2 - PPSV23 or PCV20) Pneumococcal Vaccine: 65+ (2 of 2 - PPSV23 or PCV20) [facility] Start: 12-10-2014 Pneumococcal vaccination [facility] Start: 08-28-2014 Shingrix Vaccine (2 of 3) Shingrix Vaccine (2 of 3) [facility] Start: 08-28-2014 Zoster vaccine hzv l shaq for subcutaneous use ZOSTER (SHINGLES) VACCINE (2 of 3) [facility] Start: 08-28-2014 [facility] Start: 2012 Screening for osteoporosis Bone Density Screening [facility] Start: 1992 Screening for malign ant neoplasm of colon [facility] Start: 1968 Screening for malign ant neoplasm of cervix [facility] Start: 1965 Anxiety Screening Anxiety Screening [facility] Start: 1965 Depression Screening Depression Scre ening [facility] Start: 1965 Hepatitis C screening Hepatitis C Sc reening [facility] Start: 1945 Hepatitis C screening [facility] Start: 1945 Screening for osteoporosis [facility] SURG PATH REQUEST [facility] Immunizations Immunization Date Immunization Notes Care Provider Fa cility 03-23-2022 influenza virus vaccine, unspecified formulation Annie Kearney MD Work Phone: [facility] 07-03-2014 zoster vaccine, unspecified formulation Annie Kearney MD Work Phone: [facility] Payers Date Payer Category Payer Self-pay 2019 Unknown [id number] 2019 Unknown [id number] 2012 Medicare [id number] 2012 Medicare [id number] 1945 Unknown [id number] 1945 Unknown [id number] Unknown [id number] Unknown [id number] Unknown [id number] Unknown [id number] Unknown [id number] Unknown [id number] Unknown [id number] Unknown [id number] Unknown [id number] Unknown [id number] Unknown [id number] Unknown [id number] Unknown [id number] Unknown PAOLA Burdick *DO NOT USE* [id number] Social History Date Type Detail Facility Tobacco smoking stat us NCIS Tobacco smoking consumption unknown [facility] Start: 1945 Sex assigned at [facility] Start: 02-05-2024 End: 06-20-2024 Tobacco smoking status NCIS Never smoked tobacco [facility] Start: 02-05-2024 End: 04-08-2024 Tobacco use and exposure Smokeless tobacco non-user [facility] Start: 02-05-2024 Alcoholic beverage intake Ex-drinker (finding) [facility] Start: 02-05-2024 End: 06-03-2024 History of Social function [facility] Start: 02-05-2024 End: 06-03-2024 Tobacco use panel [facility] Start: 04-08-2024 End: 06-03-2024 Alcoholic beverage intake Lifetime non-drinker (finding) [facility] National Score (1-100), lower number is lower risk 64 [facility] Start: 1945 Sex Assigned At Female [facility] Clinical Notes 01-11-2024 to 07-03-2024 Teressa Brennan - 06/03/2024 1:30 PM ESTTelephone Encounter - Samantha Mcdonald LISW - 04/28/2024 11:20 AM EDTTelephone Encounter - Samantha Mcdonald LISW - 04/28/2024 11:20 AM EDTAttachments Note Date & Type Note Facility 07-03-2024 Note [facility] 06-20-2024 Note [facility] 06-20-2024 Note [facility] 06-03-2024 History of Present illness Narrative Kerrie Kearney 1945 06/03/2024 Kerrie Kearney is a 78 year old female referred by Dr. Orlando for monoclonal gammopathy. HPI: The patient is a 78-year-old female with a past medical history significant for meningitis, elevated LFTs, cognitive impairment, imbalance, dysphagia, psoriasis, IBS, GERD, ectatic thoracic aorta, hypertension, hyperlipidemia, type 2 diabetes, thyrotoxicosis, hypothyroidism, anemia and monoclonal gammopathy. Lab work showed elevated serum kappa and lambda light chain with normal ratio. Immunofixation serum detected no monoclonal protein. Total IgM was mildly elevated at 233 mg/dL. The serum IgG and IgA levels were normal. Immunofixation spot urine was negative. CBC showed a white count of 8000. Hemoglobin 10.2 g/dL with an MCH low at 26.4 pg. MCHC was low at 31.1 g/dL. Serum creatinine 1.19 mg/dL with calcium normal at 10.2 mg/dL. Serum ferritin is 15 ng/mL. Iron saturation 9%. TIBC 371. LDH 176. Vitamin B12 was 447 pg/mL. Serum folic acid 6.6 ng/mL. Hemoglobin A1c 9.5%. Started on liquid iron supplement about a month ago. recalls getting it at [facility]. Was living in [place]. Moved back to [place] early summer. Was admitted to [facility] for meningitis 12/2023. Transferred to [facility]. Course complicated by SBO. Had surgery for that 01/22/2024. Interval Hx: I feel good. No complaints Pt presents today with her spouse. Denies new issues. No recent illness, fevers, chills or NS. Denies bleeding or bruising. No changes in bowel or bladder habits. No dark or tarry stools. Appetite is good. Energy level is stable. No N/V. PAST SURGICAL HISTORY Procedure Laterality Date APPENDECTOMY BOWEL RESECTION HX DELIVERY ONLY REMOVAL GALLBLADDER ALLERGIES Allergen Reactions Sulfa (Sulfonamide * Itching Social History Tobacco Use Smoking status: Never Smokeless tobacco: Never Vaping Use Vaping status: Never Used Substance Use Topics Alcohol use: Never Drug use: Never REVIEW OF SYSTEMS: Constitutional: No episodes of fever and night sweats. Neuro: Uses walker. All systems reviewed on 06/03/2024 with pertinent positives and negatives as outlined in the interval history. PHYSICAL EXAM: Vitals: Blood pressure 155/77, pulse 78, temperature 36.2 C (97.1 F), temperature source Temporal, weight 68 kg (150 lb), SpO2 98%. Well-appearing and in no acute distress. EYES: Sclerae are anicteric bilaterally. LYMPHATIC: There is no palpable adenopathy. RESPIRATORY: Normal passive respiration. CARDIOVASCULAR: Rhythm is regular. No murmur. ABDOMEN: The abdomen is nondistended.. Extremities: No swelling or edema. SKIN: No jaundice. I have performed the physical exam today (06/03/2024) and have edited the note to correlate with current findings. LABS: Latest Reference Range & Units 04/08/24 14:57 06/03/24 13:24 WBC 3.70 - 11.00 k/uL 8.31 6.05 RBC 3.90 - 5.20 m/uL 3.85 (L) 4.55 Hemoglobin 11.5 - 15.5 g/dL 9.6 (L) 11.6 Hematocrit 36.0 - 46.0 % 32.1 (L) 38.4 Platelet Count 150 - 400 k/uL 317 280 MCV 80.0 - 100.0 fL 83.4 84.4 MCH 26.0 - 34.0 pg 24.9 (L) 25.5 (L) MCHC 30.5 - 36.0 g/dL 29.9 (L) 30.2 (L) MPV 9.0 - 12.7 fL 10.2 10.0 RDW-CV 11.5 - 15.0 % 13.0 17.2 (H) Retic % 0.4 - 2.0 % 0.6 Abs Retic 0.018 - 0.100 M/uL 0.029 (L): Data is abnormally low (H): Data is abnormally high Latest Reference Range & Units 04/08/24 14:57 Ferritin 14.7 - 205.1 ng/mL 9.4 (L) Iron 41 - 186 ug/dL 20 (L) TIBC 232 - 386 ug/dL 444 (H) Transferrin Saturation 15.0 - 57.0 % 4.5 (L) (L): Data is abnormally low (H): Data is abnormally high ASSESSMENT/PLAN: (D50.9) Iron deficiency anemia, unspecified iron deficiency anemia type (primary encounter diagnosis) Assessment: -78 yo female with PMH as outlined above. -Admitted for meningitis complicated by SBO. -Mild increase in serum IgM with no MP by SPEP or AYLEEN. -Serum light chains increased but ratio normal. - reviewed with pt and spouse today, no concerns. -Iron deficient. Started oral iron supplement. -May not be absorbing well due to PPI. - received IV iron sucrose 200mg x5 - anemia improved Plan: Repeat CBC, iron studies in 3 months RTC in 6 months with labs Teressa Brennan APRN.PUBLIC HEALTH PROFESSOR I spent a total of 30 minutes on the date of the service which included preparing to see the patient, [id number] patient care, completing clinical documentation, and counseling and educating the patient/family/caregiver. Portions of this note including HPI, ROS, impression/plan may have been copied forward as to provide important historical information essential in contributing to medical decision making. Documentation has been reviewed and edited as necessary to support clinical decision making for today's visit and to reflect my own independent evaluation of this patient. documented in this encounter [facility] 06-03-2024 Note HNO ID: [id number] Author: TERESSA BRENNAN, ? Service: ? Author Type: Nurse Practitioner Type: Progress Notes Filed: 06/03/2024 15:32 Note Text: Kerrie Kearney 1945 06/03/2024 Kerrie Kearney is a 78 year old female referred by Dr. Orlando for monoclonal gammopathy. HPI: The patient is a 78-year-old female with a past medical history significant for meningitis, elevated LFTs, cognitive impairment, imbalance, dysphagia, psoriasis, IBS, GERD, ectatic thoracic aorta, hypertension, hyperlipidemia, type 2 diabetes, thyrotoxicosis, hypothyroidism, anemia and monoclonal gammopathy. Lab work showed elevated serum kappa and lambda light chain with normal ratio. Immunofixation serum detected no monoclonal protein. Total IgM was mildly elevated at 233 mg/dL. The serum IgG and IgA levels were normal. Immunofixation spot urine was negative. CBC showed a white count of 8000. Hemoglobin 10.2 g/dL with an MCH low at 26.4 pg. MCHC was low at 31.1 g/dL. Serum creatinine 1.19 mg/dL with calcium normal at 10.2 mg/dL. Serum ferritin is 15 ng/mL. Iron saturation 9%. TIBC 371. LDH 176. Vitamin B12 was 447 pg/mL. Serum folic acid 6.6 ng/mL. Hemoglobin A1c 9.5%. Started on liquid iron supplement about a month ago. recalls getting it at [facility]. Was living in [place]. Moved back to [place] early summer. Was admitted to [facility] for meningitis 12/2023. Transferred to [facility]. Course complicated by SBO. Had surgery for that 01/22/2024. Interval Hx: I feel good. No complaints Pt presents today with her spouse. Denies new issues. No recent illness, fevers, chills or NS. Denies bleeding or bruising. No changes in bowel or bladder habits. No dark or tarry stools. Appetite is good. Energy level is stable. No N/V. PAST SURGICAL HISTORY Procedure Laterality Date APPENDECTOMY BOWEL RESECTION HX DELIVERY ONLY REMOVAL GALLBLADDER ALLERGIES Allergen Reactions Sulfa (Sulfonamide * Itching Social History Tobacco Use Smoking status: Never Smokeless tobacco: Never Vaping Use Vaping status: Never Used Substance Use Topics Alcohol use: Never Drug use: Never REVIEW OF SYSTEMS: Constitutional: No episodes of fever and night sweats. Neuro: Uses walker. All systems reviewed on 06/03/2024 with pertinent positives and negatives as outlined in the interval history. PHYSICAL EXAM: Vitals: Blood pressure 155/77, pulse 78, temperature 36.2 ?C (97.1 ?F), temperature source Temporal, weight 68 kg (150 lb), SpO2 98%. Well-appearing and in no acute distress. EYES: Sclerae are anicteric bilaterally. LYMPHATIC: There is no palpable adenopathy. RESPIRATORY: Normal passive respiration. CARDIOVASCULAR: Rhythm is regular. No murmur. ABDOMEN: The abdomen is nondistended.. Extremities: No swelling or edema. SKIN: No jaundice. I have performed the physical exam today (06/03/2024) and have edited the note to correlate with current findings. LABS: Latest Reference Range AND Units 04/08/24 14:57 06/03/24 13:24 WBC 3.70 - 11.00 k/uL 8.31 6.05 RBC 3.90 - 5.20 m/uL 3.85 (L) 4.55 Hemoglobin 11.5 - 15.5 g/dL 9.6 (L) 11.6 Hematocrit 36.0 - 46.0 % 32.1 (L) 38.4 Platelet Count 150 - 400 k/uL 317 280 MCV 80.0 - 100.0 fL 83.4 84.4 MCH 26.0 - 34.0 pg 24.9 (L) 25.5 (L) MCHC 30.5 - 36.0 g/dL 29.9 (L) 30.2 (L) MPV 9.0 - 12.7 fL 10.2 10.0 RDW-CV 11.5 - 15.0 % 13.0 17.2 (H) Retic % 0.4 - 2.0 % 0.6 Abs Retic 0.018 - 0.100 M/uL 0.029 (L): Data is abnormally low (H): Data is abnormally high Latest Reference Range AND Units 09/24/24 14:57 Ferritin 14.7 - 205.1 ng/mL 9.4 (L) Iron 41 - 186 ug/dL 20 (L) TIBC 232 - 386 ug/dL 444 (H) Transferrin Saturation 15.0 - 57.0 % 4.5 (L) (L): Data is abnormally low (H): Data is abnormally high ASSESSMENT/PLAN: (D50.9) Iron deficiency anemia, unspecified iron deficiency anemia type (primary encounter diagnosis) Assessment: -78 yo female with PMH as outlined above. -Admitted for meningitis complicated by SBO. -Mild increase in serum IgM with no MP by SPEP or AYLEEN. -Serum light chains increased but ratio normal. - reviewed with pt and spouse today, no concerns. -Iron deficient. Started oral iron supplement. -May not be absorbing well due to PPI. - received IV iron sucrose 200mg x5 - anemia improved Plan: Repeat CBC, iron studies in 3 months RTC in 6 months with labs Teressa Brennan APRN.PUBLIC HEALTH PROFESSOR I spent a total of 30 minutes on the date of the service which included preparing to see the patient, [id number] patient care, completing clinical documentation, and counseling and educating the patient/family/caregiver. Portions of this note including HPI, ROS, impression/plan may have been copied forward as to provide important historical information essential in contributing to medical decision making. Documentation has been reviewed and edited as necessary to support clinical decision making for today's visit and to reflect my own independ (more content not included)... [facility] 04-28-2024 Telephone encounter Note SOCIAL WORK FOLLOW UP NOTE: CANCER CENTER Pt noted on [facility] 1st time treatment report. Pt has a non-oncology regimen. No social work follow up indicated. SHAYNA Carrillo-S [facility] 04-28-2024 Miscellaneous Notes SOCIAL WORK FOLLOW UP NOTE: CANCER CENTER Pt noted on [facility] 1st time treatment report. Pt has a non-oncology regimen. No social work follow up indicated. SHAYNA Carrillo-S documented in this encounter [facility] 04-15-2024 Telephone encounter Note I reviewed the patient on the 1st-time treatment report. The patient does not have a cancer diagnosis or a chemo/radiation regimen. No further Financial Navigator intervention is needed at this time. [facility] 04-15-2024 Miscellaneous Notes I reviewed the patient on the 1st-time treatment report. The patient does not have a cancer diagnosis or a chemo/radiation regimen. No further Financial Navigator intervention is needed at this time. documented in this encounter [facility] 04-09-2024 Telephone encounter Note Spouse returned call. Scheduled first 2 infusions. Spouse states will have to schedule more appointments as they go. Notes added to appointment notes for future appts. [facility] Work Phone: 04-09-2024 Miscellaneous Notes Spouse returned call. Scheduled first 2 infusions. Spouse states will have to schedule more appointments as they go. Notes added to appointment notes for future appts. 1st attempt lvm for patient to return the call. Belen Nix Patient's aware of all information. This note and lab results faxed to Dr. Orlando. AGNIESZKA- please contact patient/ to schedule as directed below. Carleen Bales LPN Can let her or her know that her iron levels remain very low despite taking iron supplement. Please schedule for 5 doses of iron sucrose. Recheck CBC/iron studies and reticulocyte count about 4 to 6 weeks after completing iron then office visit with Teressa. Please fax a copy of this note as well as today's lab work to Dr. Orlando's office. Adan Scott DO documented in this encounter [facility] 04-09-2024 Telephone encounter Note 1st attempt lvm for patient to return the call. Belen Nix [facility] 04-09-2024 Telephone encounter Note Patient's aware of all information. This note and lab results faxed to Dr. Orlando. PSS- please contact patient/ to schedule as directed below. Carleen Bales LPN [facility] 04-09-2024 Telephone encounter Note Can let her or her know that her iron levels remain very low despite taking iron supplement. Please schedule for 5 doses of iron sucrose. Recheck CBC/iron studies and reticulocyte count about 4 to 6 weeks after completing iron then office visit with Teressa. Please fax a copy of this note as well as today's lab work to Dr. Orlando's office. Adan Scott DO [facility] 04-08-2024 Note HNO ID: [id number] Author: ADAN SCOTT DO Service: ? Author Type: Physician Type: Progress Notes Filed: 04/08/2024 14:57 Note Text: Kerrie Kearney is a 78 year old female referred by Dr. Orlando for monoclonal gammopathy. HPI: The patient is a 78-year-old female with a past medical history significant for meningitis, elevated LFTs, cognitive impairment, imbalance, dysphagia, psoriasis, IBS, GERD, ectatic thoracic aorta, hypertension, hyperlipidemia, type 2 diabetes, thyrotoxicosis, hypothyroidism, anemia and monoclonal gammopathy. Lab work showed elevated serum kappa and lambda light chain with normal ratio. Immunofixation serum detected no monoclonal protein. Total IgM was mildly elevated at 233 mg/dL. The serum IgG and IgA levels were normal. Immunofixation spot urine was negative. CBC showed a white count of 8000. Hemoglobin 10.2 g/dL with an MCH low at 26.4 pg. MCHC was low at 31.1 g/dL. Serum creatinine 1.19 mg/dL with calcium normal at 10.2 mg/dL. Serum ferritin is 15 ng/mL. Iron saturation 9%. TIBC 371. LDH 176. Vitamin B12 was 447 pg/mL. Serum folic acid 6.6 ng/mL. Hemoglobin A1c 9.5%. Started on liquid iron supplement about a month ago. recalls getting it at [facility]. Was living in [place]. Moved back to [place] early summer. Was admitted to [facility] for meningitis 12/2023. Transferred to [facility]. Course complicated by SBO. Had surgery for that 01/22/2024. Appetite not great. No dysphagia. No nausea. Takes PPI--No reflux. Bowels move daily. Formed stools. No black or bloody stools. PAST SURGICAL HISTORY Procedure Laterality Date BOWEL RESECTION HX ALLERGIES Allergen Reactions Sulfa (Sulfonamide * Itching Social History Tobacco Use Smoking status: Never Smokeless tobacco: Never Vaping Use Vaping status: Never Used Substance Use Topics Alcohol use: Never Drug use: Never REVIEW OF SYSTEMS: Constitutional: No episodes of fever and night sweats. Neuro: Uses walker. HEENT: No recent change in voice, vision or hearing. Resp: No cough, wheeze and hemoptysis. No shortness of breath at rest. CVS: No exertional chest pain, PND, orthopnea and LE edema. GI: See above. : No dysuria or gross hematuria. Endo: No hot flashes. No polyuria and polydipsia. No heat and cold intolerance. Musculoskeletal: Chronic LBP--curvature of spine. Pain not constant. Derm: No current rash. No history of jaundice or diffuse pruritis. Heme: No unusual bleeding and unexplained bruising. Psych: Normal mood. PHYSICAL EXAM: Vitals: Blood pressure 129/69, pulse 85, temperature 36.4 ?C (97.5 ?F), temperature source Temporal, height 149 cm (4' 10.66), weight 66.5 kg (146 lb 8 oz), SpO2 99%. Well-appearing and in no acute distress. EYES: Sclerae are anicteric bilaterally. LYMPHATIC: There is no palpable adenopathy. RESPIRATORY: Normal passive respiration. CARDIOVASCULAR: Rhythm is regular. No murmur. ABDOMEN: The abdomen is nondistended.. Extremities: No swelling or edema. SKIN: No jaundice. ASSESSMENT/PLAN: (D50.9) Iron deficiency anemia, unspecified iron deficiency anemia type (primary encounter diagnosis) Assessment: -78 yo female with PMH as outlined above. -Admitted for meningitis complicated by SBO. -Mild increase in serum IgM with no MP by SPEP or AYLEEN. -Serum light chains increased but ratio normal. -Iron deficient. Started oral iron supplement. -May not be absorbing well due to PPI. Plan: -Check CBC/Iron. -Parenteral iron if still low. I spent a total of 45 minutes on the date of the service which included preparing to see the patient, [id number] patient care, completing clinical documentation, obtaining and/or reviewing separately obtained history, performing a medically appropriate examination, counseling and educating the patient/family/caregiver, ordering medications, tests, or procedures, communicating with other HCPs (not separately reported), and communicating results to the patient/family/caregiver. Adan Scott DO [facility] 04-08-2024 History of Present illness Narrative Kerrie Kearney is a 78 year old female referred by Dr. Orlando for monoclonal gammopathy. HPI: The patient is a 78-year-old female with a past medical history significant for meningitis, elevated LFTs, cognitive impairment, imbalance, dysphagia, psoriasis, IBS, GERD, ectatic thoracic aorta, hypertension, hyperlipidemia, type 2 diabetes, thyrotoxicosis, hypothyroidism, anemia and monoclonal gammopathy. Lab work showed elevated serum kappa and lambda light chain with normal ratio. Immunofixation serum detected no monoclonal protein. Total IgM was mildly elevated at 233 mg/dL. The serum IgG and IgA levels were normal. Immunofixation spot urine was negative. CBC showed a white count of 8000. Hemoglobin 10.2 g/dL with an MCH low at 26.4 pg. MCHC was low at 31.1 g/dL. Serum creatinine 1.19 mg/dL with calcium normal at 10.2 mg/dL. Serum ferritin is 15 ng/mL. Iron saturation 9%. TIBC 371. LDH 176. Vitamin B12 was 447 pg/mL. Serum folic acid 6.6 ng/mL. Hemoglobin A1c 9.5%. Started on liquid iron supplement about a month ago. recalls getting it at [facility]. Was living in [place]. Moved back to [place] early summer. Was admitted to [facility] for meningitis 12/2023. Transferred to [facility]. Course complicated by SBO. Had surgery for that 01/22/2024. Appetite not great. No dysphagia. No nausea. Takes PPI--No reflux. Bowels move daily. Formed stools. No black or bloody stools. PAST SURGICAL HISTORY Procedure Laterality Date BOWEL RESECTION HX ALLERGIES Allergen Reactions Sulfa (Sulfonamide * Itching Social History Tobacco Use Smoking status: Never Smokeless tobacco: Never Vaping Use Vaping status: Never Used Substance Use Topics Alcohol use: Never Drug use: Never REVIEW OF SYSTEMS: Constitutional: No episodes of fever and night sweats. Neuro: Uses walker. HEENT: No recent change in voice, vision or hearing. Resp: No cough, wheeze and hemoptysis. No shortness of breath at rest. CVS: No exertional chest pain, PND, orthopnea and LE edema. GI: See above. : No dysuria or gross hematuria. Endo: No hot flashes. No polyuria and polydipsia. No heat and cold intolerance. Musculoskeletal: Chronic LBP--curvature of spine. Pain not constant. Derm: No current rash. No history of jaundice or diffuse pruritis. Heme: No unusual bleeding and unexplained bruising. Psych: Normal mood. PHYSICAL EXAM: Vitals: Blood pressure 129/69, pulse 85, temperature 36.4 C (97.5 F), temperature source Temporal, height 149 cm (4' 10.66), weight 66.5 kg (146 lb 8 oz), SpO2 99%. Well-appearing and in no acute distress. EYES: Sclerae are anicteric bilaterally. LYMPHATIC: There is no palpable adenopathy. RESPIRATORY: Normal passive respiration. CARDIOVASCULAR: Rhythm is regular. No murmur. ABDOMEN: The abdomen is nondistended.. Extremities: No swelling or edema. SKIN: No jaundice. ASSESSMENT/PLAN: (D50.9) Iron deficiency anemia, unspecified iron deficiency anemia type (primary encounter diagnosis) Assessment: -78 yo female with PMH as outlined above. -Admitted for meningitis complicated by SBO. -Mild increase in serum IgM with no MP by SPEP or AYLEEN. -Serum light chains increased but ratio normal. -Iron deficient. Started oral iron supplement. -May not be absorbing well due to PPI. Plan: -Check CBC/Iron. -Parenteral iron if still low. I spent a total of 45 minutes on the date of the service which included preparing to see the patient, [id number] patient care, completing clinical documentation, obtaining and/or reviewing separately obtained history, performing a medically appropriate examination, counseling and educating the patient/family/caregiver, ordering medications, tests, or procedures, communicating with other HCPs (not separately reported), and communicating results to the patient/family/caregiver. Adan Scott DO documented in this encounter [facility] 02-05-2024 History of Present illness Narrative Subjective: Kerrie Kearney presents to the clinic 2 weeks following laparotomy for small bowel obstruction. Eating a regular diet without difficulty. Bowel movement are Normal. The patient is not having any pain.. Objective: BP 161/76 Pulse 68 Temp 98.8 F (37.1 C) Ht 1.549 m (5' 1) BMI 29.37 kg/m Smoking Status Never General: alert, cooperative, no distress, appears stated age Abdomen: soft, bowel sounds active, non-tender Incision: healing well, no drainage, no erythema, no hernia, no seroma, no swelling, no dehiscence, incision well approximated Assessment: Doing well postoperatively. Plan: 1. Continue any current medications. 2. Wound care discussed. I removed her drain and took out her paula 3. Pt is to increase activities as tolerated. 4. Follow up: PRN documented in this encounter [facility] 01-30-2024 Hospital course Narrative Hospital Medicine Discharge Summary Patient Name Kerrie Kearney Age (Date of ) 78 y.o. (1945) Admit Date 01/11/2024 Discharge Date 01/30/2024 Inpatient Days 19 Primary Diagnoses Acute on chronic cognitive impairment; Presumed meningitis; Small Bowel Obstruction s/p bowel resection 01/22/24 Secondary Diagnoses DM2; HTN; RICK; Thyroid Nodule; Chronic Anemia Action Items Take all medications as prescribed F/up w/ Surgery in ~10-14d for PAOLA drain removal F/up w/ PCP regarding goiter. Repeat Thyroid US in 1 year Start insulin. Stop PO DM2 meds Dear Doctors, I recently had the opportunity to care for Kerrie Kearney during her recent hospital stay at [facility]. As you may know, Ms. Kearney is a 78y/o F w/ h/o chronic cognitive impairment, DM2, hyperthyroidism, an dHTN who was transferred to [facility] on 01/11/24 from [place] for evaluation of encephalopathy and fevers concerning for meningitis. Pt was empirically treated for meningitis as her CSF studies were obtained following initiation of abx. She did have some improvement in her confusion but her baseline cognitive state is poor to begin with. Her describes her as frequently not knowing where she is or the date. He states she can typically carry on a conversation however. Pt's hospital stay was complicated by SBO requiring laparotomy w/ bowel resection on 01/22/24. She has recovered bowel function and is tolerating PO well. She has a PAOLA drain in place that she will f/up w/ Surgery as outpt for removal. Some of her medications were adjusted during the hospital stay including initiation of insulin for DM control, and adjustment of her BP regimen for BP control and RICK (now resolved). She also was incidentally found to have a mulitnodular goiter on imaging. After US obtained it was recommended she have repeat imaging in 1 year w/ Thyroid US. Pt remained sitter and restraint free ~48h prior to discharge. Was pleasant and redirectable. She will discharge to SNF for further care and rehab. Notably, her would like her to be able to return home. He is also responsible for her care but there were RN concerns about his ability to do so given the amount of assistance pt requires. He was agreeable to SNF discharge at least temporarily. Upon discharge the patient's code was Full Code Please see the remainder of this document for relevant data from this admission as well as the patient's discharge instructions and follow-up appointments.. An electronic copy of the patient's records can be obtained via [facility] at [email or web address] It has been my pleasure participating in this patient's care. Please contact me with any questions or concerns regarding her hospital stay. The total time of discharge was 50 minutes. Sincerely, Jaime Chambers II, MD Division of Hospital Medicine Relevant Data from this Admission Vitals BP: 147/65 Pulse (Heart Rate): 73 Resp Rate: 18 Temp: 97.7 F (36.5 C) O2 Sat (%): 98 % Weight: 70.5 kg (155 lb 6.8 oz) Physical Exam on Discharge GEN: lying comfortably in bed, NAD CV: RRR, no m/r/g LUNGS: clear bilaterally, no accessory muscle use ABD: soft, nontender, ND, normal bowel sounds, no HSM, surgical laparotomy scar w/ paula noted w/o surrounding erythema, drain in place EXT: warm and well perfused, no c/c/e NEURO: nothing focal, conversationally confused, A&Ox1 (although did know she was in a hospital today) Lab Results Component Value Date SODIUM 134 (L) 01/30/2024 POTASSIUM 4.0 01/30/2024 MAGNESIUM 1.6 01/30/2024 BUN 18 01/30/2024 CREATSERUM 1.19 01/30/2024 Lab Results Component Value Date WBC 9.55 01/30/2024 HGB 9.1 (L) 01/30/2024 PLATELET 343 01/30/2024 INR 1.0 01/22/2024 Lab Results Component Value Date ALBUMIN 3.4 (L) 01/22/2024 BILITOTAL 0.5 01/22/2024 BILIDIRECT 0.1 01/22/2024 ALKPHOS 72 01/22/2024 ALT 10 01/22/2024 AST 19 01/22/2024 TP 6.3 (L) 01/22/2024 Autoimmune encephalopathy panel - neg Meningitis/Encephalitis panel - neg Lyme/RPR/HIV - negative XR ABDOMEN 1 VIEW PORTABLE Final Result IMPRESSION: Persistent ileus. ABDOMEN 1 VIEW PORTABLE Final Result FINDINGS/IMPRESSION: Tubes: A Leonard catheter is noted. Bowel gas pattern: Persistent gaseous dilatation of multiple loops of small bowel appear slightly increase in the right hemiabdomen since prior exam. No visible free air. Left-sided skin paula are noted. Partially imaged right femoral fixation hardware. ABDOMEN 1 VIEW Final Result IMPRESSION: Dilated small bowel loops which could indicate obstruction versus ileus. ABDOMEN/PELVIS WITH CONTRAST Final Result IMPRESSION: 1. Small bowel dilation and mild bowel wall thickening with transition points in the right lower quadrant demonstrating interposed decompressed small bowel concerning for a closed loop obstruction. 2. Moderate volume ascites. 3. Small bilateral pleural effusions. 4. Severe dextroscoliosis and degenerative changes of the lumbar spine.. I personally viewed and interpreted these images and I have reviewed and approved this report. ABDOMEN 1 VIEW PORTABLE Final Result IMPRESSION: Enteric tube within the stomach. ABDOMEN 1 VIEW PORTABLE Final Result IMPRESSION: Satisfactory position of the nasogastric tube. ABDOMEN 1 VIEW PORTABLE Final Result IMPRESSION: Unchanged likely small bowel ileus versus less likely obstruction. ABDOMEN 1 VIEW PORTABLE Final Result IMPRESSION: Ileus versus small bowel obstruction. CHEST 1 VIEW PORTABLE Final Result IMPRESSION: No acute cardiopulmonary disease FLUORO LUMBAR PUNCTURE Final Result IMPRESSION: Successful fluoroscopic-guided lumbar puncture with 14 ml of clear slightly xanthochromic CSF removed. Opening pressure: 13 cm H2O. Closing pressure: <9 cm H2O. Lumbar puncture performed by ISMA Burrell. Dr. Que Morelos was physically present for the edwards components of the procedure and was immediately available throughout the remaining portions of the procedure. I personally viewed and interpreted these images and I have reviewed and approved this report. 01/22/24 Laparoscopy Abdomen/Peritoneum/Omentum - 20cm necrotic bowel resected. Pathology PENDING @ Discharge BMI (Calculated): 27.6 Patient Instructions on Discharge Future Appointments Date Time Provider Department Center 02/05/2024 2:15 PM Annie Kearney MD [facility] Jacob Chester MD [address] [place] [address] 6th Floor [place] [id number] Follow up Plesae make an appointment 2-3 weeks following initial surgery date [facility] [address] [facility] [address] Medication List START taking these medications Acetaminophen 160 MG/5ML SOLN Commonly known as: TYLENOL Take 20.3 mL by mouth every 6 hours as needed for Moderate Pain. Dextrose 50% injection 15-50 mL by Intravenous route As directed PRN. glucose 40 % gel Commonly known as: GLUTOSE Take 15 g by mouth As directed PRN. Insulin lispro 100 UNIT/ML SOLN Commonly known as: HUMALOG Inject 2 Units under the skin before meals & at bedtime. Lantus SoloStar 100 UNIT/ML SOPN injection Generic drug: insulin glargine Inject 7 Units under the skin at bedtime. Melatonin 3 MG TABS Take 2 tablets by mouth at bedtime as needed for Insomnia. Polyethylene glycol 17 g PACK packet Commonly known as: MIRALAX Take 1 packet by mouth daily as needed. sennosides 8.6 MG TABS Commonly known as: SENNA Take 1 tablet by mouth every 12 hours as needed. CHANGE how you take these medications carveDILOL 12.5 MG TABS Commonly known as: COREG Take 1 tablet by mouth 2 times daily. What changed: medication strength how much to take when to take this CONTINUE taking these medications Atorvastatin 10 MG TABS Commonly known as: LIPITOR Diltiazem 120 MG cap XR capsule XL Commonly known as: CARDIZEM CD DULoxetine [address] Commonly known as: CYMBALTA Lisinopril 20 MG TABS Commonly known as: PRINIVIL methimazole 5 MG TABS Commonly known as: TAPAZOLE omeprazole [address] capsule Commonly known as: PRILOSEC STOP taking these medications glipiZIDE 2.5 MG TABS documented in this encounter [facility] 01-30-2024 History of Present illness Narrative Social Work Final Discharge Plan and Transportation Final Discharge Planning Discharge Disposition: Jail Facility Services at Discharge: Physical Therapy, Occupational Therapy, Jail Community Agency Name(s) For Handoff: [facility] Phone For Handoff: [phone] Fax For Handoff: [phone] Additional Community Agency Name(s): no Selected Continued Care - Admitted Since 01/11/2024 Destination Coordination complete. Service Provider Selected Services Address Phone Fax Patient Preferred [facility] [address] [facility] [place] [address] [phone] -- Plan Plan: Discharge to shelter facility Patient/Family In Agreement With Plan: yes Transportation Transport Request Mode of Transfer: [facility] Name of Discharge Transport Company: [employer] [facility] ETA: 1400 on 01/29 Patient medically stable for discharge per physician/medical team. confirmed with [facility] that they are able to accept the patient this date. Insurance pre-certification is not required and a hospital exemption has been completed. SW arranged transport as indicated above, ETA is 1400 on 01/29. The patient has no specialized equipment needs for transportation. AVS/GAURI completed from a SW standpoint. SW updated the bedside RN, CCM, facility and patient/enrollment representative of the discharge plan and transport time. Patient/Orthotics Assistant remain in agreement with the discharge plan. Bedside RN to call report and fax AVS/GAURI. Ambulance form left at the community outreach coordinator desk with a request for a printed transfer report. Discharge Instruction for Bedside RN: 1. Confirm the Ambulatory Order is in the GAURI. 2. Print the GAURI and AVS. 3. Print the Discharge Summary for facilities (if available). 4. Fax GAURI, AVS and Discharge Summary (when applicable) to agency or facility. 5. Call the agency or facility for report. OPAL Escobar, MARILU Court Attendant, Transplant 01/29/24 1537 Outlier Review Reviewing for: Outlier Meeting Medical Necessity: Yes Medical Necessity Summary: RICK Barriers: Standard Treatment/Therapy;Medical Complications Barrier(s) Comments: Sitter free for almost 24 hours, should be able to discharge to SNF in a day Intervention: No intervention needed Escalated to: None Required OPAL Escobar LSW Court Attendant, Transplant Hospital Medicine Daily Progress Note SUBJECTIVE: Pt doing well this morning. She did not require a sitter in person overnight. She is doing well w/ OT. She did not have any urinary incontinence overnight and got up to the bathroom for voiding. Per d/w her , he is agreeable for pt to discharge to SNF for continued recovery. OBJECTIVE FINDINGS: Physical Exam: Vital Signs (24hrs): Temp: [97.7 F (36.5 C)-98.9 F (37.2 C)] 98.9 F (37.2 C) Pulse (Heart Rate): [71-82] 82 Resp Rate: [16-20] 16 BP: (135-155)/(63-68) 135/63 O2 Sat (%): [95 %-96 %] 96 % O2 Device: room air (01/29/24 1100) Flow (L/min): 0 (01/29/24 1000) GEN: lying comfortably in bed, NAD CV: RRR, no m/r/g LUNGS: clear bilaterally, no accessory muscle use ABD: soft, nontender, ND, normal bowel sounds, no HSM, surgical laparotomy scar w/ paula noted w/o surrounding erythema, drain in place EXT: warm and well perfused, no c/c/e NEURO: nothing focal, conversationally confused, A&Ox1 (although did know she was in a hospital today) Labs Reviewed in [facility]: Lab Results Component Value Date SODIUM 138 01/29/2024 POTASSIUM 3.8 01/29/2024 CREATSERUM 1.30 (H) 01/29/2024 BMI: 27.6 IMPRESSION/PLAN: Kerrie Kearney is a 78 y.o. female with a history of chronic cognitive impairment, hyperthyroidism, DM2, and HTN who presented on 01/11/2024 as a transfer from [place] for further evaluation of encephalopathy and fevers with concern for meningitis. She completed a course of empiric antibiotics for meningitis but hospital course has been complicated by SBO. Small Bowel Obstruction: After complaining of some mild abd pain - followed by vomiting - KUB on 01/18 revealed an ileus vs SBO. Initially seemed to be an ileus as abd exam was fairly benign and she had a few small BMs. However, she later developed worsening feculent vomiting late on 01/[address] demonstrated concern for closed loop small bowel obstruction. -S/p Ex Lap on 01/21 with MERCEDES and SBR with resection of 20cm of necrotic bowel. -Surgery following. Appreciate their assistance -NG removed 01/23. Pt tolerated dinner. + BM beginning 01/24. -continue Regular Carb Controlled diet today -Surgical drain in place. Continue to monitor output. Appreciate Surgery's assistance with management - Surgery to f/up in 2 weeks (~02/10/24)for drain removal or if output <50ml/day it can be removed earlier - bowel regimen PRN - removed leonard catheter 01/28/24 Acute Metabolic Encephalopathy / Presumed Meningitis: Presented with acute confusion (in setting of chronic mild cognitive impairment), headaches, slurred speech, and difficulty ambulating. Febrile to 101.6F at OSH with MRI showing some diffuse restricted diffusion in the cerebral cortex bilaterally most pronounced in the parietal occipital regions - possibly due to inflammation. LP (after a few days of atbx) was largely unrevealing with 5 WBC (44% PMNs), 248 RBC, protein 88, glucose 143, negative culture, negative encephalitis panel, and negative paraneoplastic panel. Ultimately, exact etiology of presentation unclear - but clinically concerning for meningitis. -Evaluated by Neurology and ID. Completed 14 days of empiric antibiotics (Meropenem and Vanc) on 01/20/24 -Continue delirium precautions -DC sitter today - will try abdominal binder to see if this also helps prevent pt from trying to remove PAOLA drain HTN: Normotensive on admission. Home regimen: Coreg 25mg BID, Diltiazem 120mg, Lisinopril 20mg. -Continue Coreg. Reduce dose to 12.5mg BID -Continue Diltiazem 120mg -Continue Lisinopril RICK: slightly worse today -Continue to monitor Cr, renally dose meds, and avoid potentially nephrotoxic agents as able - hold lisinopril today - IVF x12h today @ 75ml/hr DM2 with Hyperglycemia: Hyperglycemic in the 500s on presentation - with A1c 10.6%. Previously on Metformin and Glipizide at home. -Evaluated by Endocrinology and started on Insulin. Plan to continue at discharge. -Continue Lantus 7U this evening w/ increasing PO intake, and SSI for now (plan to switch to fixed dosing at discharge) -Appreciate DM educator and RN's assistance with teaching -Will need all insulin / glucometer supplies at discharge Hyperthyroidism: TSH and fT4 wnl at OSH. Continue home Methimazole. Thyroid Nodules: CTA at OSH revealed incidental 2.8cm L thyroid nodule. Subsequent US showed multinodular goiter with up to 2.3 cm left thyroid TI-RAD 3 lesion and 1.2cm right thyroid TI-RA 4 lesion. Follow up as outpatient for further management / repeat US in 1 year. Oropharyngeal Dysphagia: Has had some dysphagia in setting of encephalopathy but has subsequently been cleared for regular diet once able to resume PO intake. Anxiety: Continue home Cymbalta Hyponatremia: recurring, possibly related to hypotonic saline. Adjust IVF as above. Chronic Anemia: 2/2 chronic disease and phlebotomy. Otherwise, no overt blood loss noted. Continue to monitor FEN: Full liquids + IVF DVT Prophylaxis: SubQ Heparin Code status: Full Code Pt's , Jaime @ [phone], updated via phone 01/29/24 Dispo: Continue inpatient management. Eventually discharge to SNF (she will not need pre-cert) Isac Chambers MD Acute Occupational Therapy Treatment Prior Gross Functional Mobility: used device Current AM-PAC score(s): CURRENT AM-PAC Activity Raw Score: 16 Based on the above AM-PAC score(s), and OT clinical judgment, discharge destination recommendation is: Jail Facility Barriers to discharge home: Patient needs assistance with functional mobility, Patient needs assistance with ADLs, Patient needs assistance with IADLs (see note below), Patient needs assistance with medication management, Patient needs assistance with self-care for medical condition (see note below), Cognitive impairments that impact safety (see note below) Mobility equipment available at home: rollator, straight cane ADL equipment available at home: shower chair, grab bars Equipment recommendations for discharge: 2 wheeled walker, raised toilet seat, bathing equipment, dressing equipment, toileting equipment Current therapy frequency recommendation(s) in acute: 5 times a week Activity Recommendations for outside of rehab session: 1 person assist with gait belt and 2 wheeled walker for short distance mobility. Precautions and Weightbearing Status: OT Existing Precautions/Restrictions: fall, abdominal (Exit alarm.) No critical lines at this time Patient Safety Communication Prior to Visit: Nursing Subjective: Pt reported, It'll feel good to get up! at start of therapy session. Pain: General Pain Documentation (Adult, OB, Peds) Presence of Pain: reports pain/discomfort Pain Location: abdomen Objective/Observation: Vitals/Vitals Responses to Treatment: No adverse reactions noted. O2 Device: room air Vision Screen Currently wearing corrective lenses: No Visual Impairments Observed?: No Speech Speech: no gross deficits noted Hearing Hearing: hard of hearing (Mild.) Cognition Overall Cognitive Status: Impaired Arousal/Alertness: Delayed responses to stimuli Orientation Level: Oriented to person, Oriented to place (Pt oriented to place with multiple choice options, but unable to accurately report month/year.) Following Commands: Follows one step commands with increased time, Follows one step commands with repetition Safety Judgment: Decreased awareness of need for assistance, Decreased awareness of need for safety Awareness of Errors: Decreased awareness of errors Deficits: Decreased awareness of deficits Attention Span: Attends with cues to redirect, Difficulty attending to directions, Difficulty dividing attention Memory: Decreased nursing home memory, Decreased short term memory Problem Solving: Assistance required to identify errors made, Assistance required to generate solutions, Assistance required to implement solutions Cognition Comments: Delayed processing rate/motor planning; Mild-moderate confusion; Easily distracted and limited short-term recall; Overall, decreased insight into deficits/safety awareness. ADL Assessment/Intervention: Grooming Assistance: (CGA-minimal assistance) Grooming Location: seated at sink, standing at sink Grooming Deficit: Wash/dry face, Oral care, Brushing hair, Sequencing, Problem solving, Follows safety/precautions, Retrieval of items, Balance, Increased time to complete Grooming Skilled Rationale (Verbal/Tactile/Visual/Demonstrati on): Setup, Cues for increased safety, Technique of activity, Cues for cognitive deficit, Facilitate postural control, Facilitate positioning Grooming Intervention/Details: Pt mostly required CGA-minimal assistance x 1 to ensure maintenance of standing balance while completing ADL tasks (often assuming flexed/kyphotic posture when not cued). Pt required mildly increased time/effort to manipulate ADL tools/equipment, presenting with mild fine motor coordination/precision limitations. Pt also required mild cues for overall efficient sequencing/problem solving of tasks. Overall, increased time/effort for completion. Toilet Assistance: Moderate Toileting Location: toilet Toileting Deficit: Perineal hygiene, Sequencing, Problem solving, Follows safety/precautions, Balance, Increased time to complete Toilet Skilled Rationale (Verbal/Tactile/Visual/Demonstrati on): Setup, Technique of activity, Cues for cognitive deficit, Cues for increased safety, Facilitate postural control, Facilitate positioning Toileting Intervention/Details: Pt required minimal assistance for safe toilet transfer, however, required moderate assistance for hygiene/mercedes-care performance in standing position due to standing balance limitations and fatigue level. Extremity Assessments: See OT Evaluation flowsheet for Extremity Measurement updates. Balance: Sitting Balance Static Sitting-Level of Assistance: Standby Dynamic Sitting-Level of Assistance: Standby Sitting Balance Skilled Intervention/Details: Seated EOB for about 5 minutes with no difficulty, mostly requiring cues for safety. Standing Balance Static Standing-Level of Assistance: Contact guard Dynamic Standing-Level of Assistance: Contact guard, Minimum assistance Standing Balance Skilled Intervention/Details: Standing for about 6-8 minutes while completing functional transfers/mobility, grooming at sink, and toileting, mostly requiring cues for safety, with mild unsteadiness, and for overall kyphotic/flexed posture. Skin and Edema: Skin Integrity Skin Integrity Description: WFL (Visible areas.) Edema Edema: none noted Mobility Assessment/Intervention: Supine to Sit Mobility Clare Level: Supine->Sit: stand-by assist Bed Features/Set-up: Supine->Sit: Head of bed elevated, Use of bed rail Skilled Rationale: Cues for increased safety, Technique of activity, Verbal cues, Sequencing, Positioning, Hand placement Skilled Intervention/Details: Supine->Sit: Cues for sequencing/safety/use of log-roll technique; Mildly increased time/effort for performance due to pain. Transfer Assessment/Intervention: Sit to Stand Transfer Clare Level: Sit->Stand: contact guard assist (x 1 trial from EOB.) Assistive Device: Sit->Stand: gait belt, 2 wheeled walker Skilled Rationale: Cues for increased safety, Technique of activity, Tactile cues, Verbal cues, Hand placement Skilled Intervention/Details: Sit->Stand: Cues for safety/hand placement on walker. Stand to Sit Transfer Clare Level: Stand->Sit: contact guard assist Assistive Device: Stand->Sit: gait belt, 2 wheeled walker Skilled Rationale: Cues for increased safety, Technique of activity, Tactile cues, Verbal cues, Hand placement Toilet Transfer Clare Level: Toilet: minimum assist (75% patient effort) Assistive Device: Toilet: gait belt, 2 wheeled walker Skilled Rationale: Cues for increased safety, Technique of activity, Controlled descent for sitting, Upright gaze/neck extension, Full extension to upright positioning/posture, Facilitate anterior shift, Tactile cues, Verbal cues, Hand placement, Sequencing, Positioning Skilled Intervention/Details: Toilet: Cues for sequencing/safety/hand placement on walker/grab bars, as well as assisting with eccentric control/body positioning upon descent and initial hip extension and assumption of upright posture upon standing (low elevation surface). Functional Mobility: Functional Mobility Clare Level: Functional Mobility/Gait: (CGA-minimal assistance) Assistive Device: Functional Mobility/Gait: 2 wheeled walker, gait belt (Non-skid socks.) Functional Mobility Distance: Distance needed to access restroom (To restroom and then sink within room.) Skilled Intervention/Details - Functional Mobility/Gait: No LOB/SOB experienced; Pt mildly unsteady and mobilizing at a decreased rate, requiring increased cues/assistance for body positioning within walker, overall walker management, and to assume/maintain upright versus kyphotic/flexed posture. Outcome Score(s): CURRENT AM-PAC Daily Activity Inpatient Short Form Putting on/Taking Off Lower Body Clothin - A Lot of Assistance Bathin - A Lot of Assistance Toiletin - A Lot of Assistance Putting on/Taking Off Upper Body Clothin - A Little Assistance Groomin - A Little Assistance Eatin - No Assistance CURRENT AM-PAC Activity Raw Score: 16 CURRENT AM-PAC Activity Functional Limitation/Modifier: 53.32% Currently Impaired in Daily Activity - CK Assessment & Plan: Pt is demonstrating Fair progress in occupational therapy goals this date, primarily in bed mobility, static seated balance, dynamic seated balance, static standing balance, functional transfers, left UE ROM, right UE ROM, vision, speech, and alertness. However, pt's barriers to discharge and overall inhibitors in ADL/IADL/functional transfer performance/independence include pt's deficits in endurance/activity tolerance, dynamic standing balance, functional mobility, left UE strength, right UE strength, left UE coordination, right UE coordination, and cognition. Pt would benefit from continued acute occupational therapy services prior to discharge to address noted deficits and progress towards achieving increased independence in occupational performance. Patient Instruction/Education this session: Learners: Patient Education provided: Balance training, Bed mobility, Discharge recommendations, Plan of care, Positioning, Role of this discipline, Safety, Activity outside of therapy, Fall precautions, Functional transfers, Gait training safety, Precautions/weight bearing status Plan for next session: Therapist to address further dynamic standing balance/activity tolerance, lower body ADL performance (with use of AE, as needed), and higher-level cognition. Acute OT Goals Plan of Care by Fanny Fregoso OT at 01/29/2024 9:16 AM Version 1 of 1 Problem: OT - ADLs Goal: Lower Body Dressing - Patient will complete lower body dressing tasks with standby assistance using adaptive equipment/compensatory strategies as needed for improved ability to complete self-care activities. Outcome: Ongoing Goal: Bathing - Patient will perform full body bathing routine with standby assistance while seated for improved ability to complete self-care activities Outcome: Ongoing Problem: OT - Strength/ROM Goal: Strength/ROM ADL Participation - Patient will participate in UE exercise program with independence to prevent deconditioning while in hospital and to max UE ROM/Coordination/strength for ADLs. Outcome: Ongoing Problem: OT - Transfers Goal: Transfers Toilet/ Bedside Commode - Patient will transfer to/from toilet/bedside commode with standby assistance for improved ability to safely complete ADLs. Outcome: Progressing Problem: OT - Endurance Goal: Endurance Functional Mobility - Patient will complete distance needed for common household mobility with no greater than 0 rest breaks for improved tolerance to safely complete I/ADL's Outcome: Progressing Problem: OT - Cognition Goal: Cognition Simple ADL - Patient will demonstrate improved cognition, completing simple ADL task for 8-10 minutes with no greater than min cues required to maintain attention. Outcome: Progressing OT treatment consisted of the following to work and progress towards the above goal(s): OT Evaluation and Treatment Time Self Care/Home Management (ADLs) Time Entry: 12 Therapeutic Activity Time Entry: 12 Treating Therapist: Fanny Fregoso OT Additional Details: OT Co-Eval/Treatment Information Co-evaluation/co-treatment performed?: No simultaneous skilled care performed PPE used during patient interaction: facemask, gloves Patient location at end of session: chair Alarms on at end of session: RN aware, chair alarm Needs in reach. Time In: 914 Time Out: 938 Total Visit Time: 24 minutes Total Treatment Time (skilled, billable minutes): 24 minutes Upon discontinuation of Acute Care Occupational Therapy Services or patient discharge from the hospital this note represents the current Occupational Therapy Discharge Summary. [facility] Daily Progress Note SUBJECTIVE: Pt doing well this morning. She does not recall having a BM yesterday. She states she feels well. She denies questions this morning. Per SW, her accepting facility will require her to go without in person & video sitter x24h before they will accept her. OBJECTIVE FINDINGS: Physical Exam: Vital Signs (24hrs): Temp: [97.6 F (36.4 C)-98.7 F (37.1 C)] 98.1 F (36.7 C) Pulse (Heart Rate): [70-92] 83 Resp Rate: [18] 18 BP: (124-167)/(60-77) 135/63 O2 Sat (%): [96 %-100 %] 97 % O2 Device: room air (01/28/24799) Flow (L/min): 0 (01/28/24799) GEN: lying comfortably in bed, NAD CV: RRR, no m/r/g LUNGS: clear bilaterally, no accessory muscle use ABD: soft, nontender, ND, normal bowel sounds, no HSM, surgical laparotomy scar w/ paula noted w/o surrounding erythema, drain in place EXT: warm and well perfused, no c/c/e NEURO: nothing focal, conversationally confused, A&Ox1 Labs Reviewed in Epic: Lab Results Component Value Date SODIUM 137 01/28/2024 POTASSIUM 4.0 01/28/2024 CREATSERUM 1.15 01/28/2024 WBC 7.66 01/28/2024 HGB 10.0 (L) 01/28/2024 PLATELET 362 01/28/2024 BMI: 27.6 IMPRESSION/PLAN: Kerrie Kearney is a 78 y.o. female with a history of chronic cognitive impairment, hyperthyroidism, DM2, and HTN who presented on 01/11/2024 as a transfer from [place] for further evaluation of encephalopathy and fevers with concern for meningitis. She completed a course of empiric antibiotics for meningitis but hospital course has been complicated by SBO. Small Bowel Obstruction: After complaining of some mild abd pain - followed by vomiting - KUB on 01/18 revealed an ileus vs SBO. Initially seemed to be an ileus as abd exam was fairly benign and she had a few small BMs. However, she later developed worsening feculent vomiting late on 01/[address] demonstrated concern for closed loop small bowel obstruction. -S/p Ex Lap on 01/21 with MERCEDES and SBR with resection of 20cm of necrotic bowel. -Surgery following. Appreciate their assistance -NG removed 01/23. Pt tolerated dinner. + BM beginning 01/24. -continue Regular Carb Controlled diet today -Surgical drain in place. Continue to monitor output. Appreciate Surgery's assistance with management - Surgery to f/up in 2 weeks (~02/10/24)for drain removal or if output <50ml/day it can be removed earlier - bowel regimen PRN - remove leonard catheter 01/28/24 Acute Metabolic Encephalopathy / Presumed Meningitis: Presented with acute confusion (in setting of chronic mild cognitive impairment), headaches, slurred speech, and difficulty ambulating. Febrile to 101.6F at OSH with MRI showing some diffuse restricted diffusion in the cerebral cortex bilaterally most pronounced in the parietal occipital regions - possibly due to inflammation. LP (after a few days of atbx) was largely unrevealing with 5 WBC (44% PMNs), 248 RBC, protein 88, glucose 143, negative culture, negative encephalitis panel, and negative paraneoplastic panel. Ultimately, exact etiology of presentation unclear - but clinically concerning for meningitis. -Evaluated by Neurology and ID. Completed 14 days of empiric antibiotics (Meropenem and Vanc) on 01/20/24 -Continue delirium precautions -Continue sitter for now given some ongoing impulsivity to prevent line removal. Will need to discontinue prior to discharge to SNF. -will try to see how involved sitter must be in order to prevent self harm - will try abdominal binder to see if this also helps prevent pt from trying to remove PAOLA drain HTN: Normotensive on admission. Home regimen: Coreg 25mg BID, Diltiazem 120mg, Lisinopril 20mg. -Continue Coreg. Reduce dose to 12.5mg BID (01/22) -Continue Diltiazem 120mg -Continue Lisinopril RICK: @ baseline ~0.9-1.1. -Continue to monitor Cr, renally dose meds, and avoid potentially nephrotoxic agents as able DM2 with Hyperglycemia: Hyperglycemic in the 500s on presentation - with A1c 10.6%. Previously on Metformin and Glipizide at home. -Evaluated by Endocrinology and started on Insulin. Plan to continue at discharge. -Continue Lantus 4U this evening w/ increasing PO intake, and increase SSI for now (plan to switch to fixed dosing at discharge) -Appreciate DM educator and RN's assistance with teaching -Will need all insulin / glucometer supplies at discharge Hyperthyroidism: TSH and fT4 wnl at OSH. Continue home Methimazole. Thyroid Nodules: CTA at OSH revealed incidental 2.8cm L thyroid nodule. Subsequent US showed multinodular goiter with up to 2.3 cm left thyroid TI-RAD 3 lesion and 1.2cm right thyroid TI-RA 4 lesion. Follow up as outpatient for further management / repeat US in 1 year. Oropharyngeal Dysphagia: Has had some dysphagia in setting of encephalopathy but has subsequently been cleared for regular diet once able to resume PO intake. Anxiety: Continue home Cymbalta Hyponatremia: recurring, possibly related to hypotonic saline. Adjust IVF as above. Chronic Anemia: 2/2 chronic disease and phlebotomy. Otherwise, no overt blood loss noted. Continue to monitor FEN: Full liquids + IVF DVT Prophylaxis: SubQ Heparin Code status: Full Code Pt's , Jaime @ [phone], updated at bedside 01/27/24 Dispo: Continue inpatient management. Eventually discharge to SNF (she will not need pre-cert) Isac Chambers MD Acute Care Surgery Progress Note S: No acute events overnight. Afebrile and hemodynamically stable. Tolerating a regular diet with no nausea or vomiting. Having ongoing bowel function. Remains confused and disoriented on exam. PAOLA with 230cc output in past 24 hours. O: BP 147/77 (BP Location: Left arm, BP Position: Lying) Pulse 86 Temp 98.4 F (36.9 C) (Oral) Resp 18 Ht 1.549 m (5' 1) Wt 70.5 kg (155 lb 6.8 oz) SpO2 96% BMI 29.37 kg/m I/O last 3 completed shifts: In: 1895.4 [P.O.:695; I.V.:1200.4] Out: 4440 [Urine:4210; Other:230] Physical Exam: Gen: lying in bed, NAD Lungs: no increased work of breathing Cardiac: regular rate and rhythm Abdomen: soft, non-distended, appropriately tender; midline incision c/d/I closed with paula; paola drain in RLQ with light serosanguinous output Labs: WBC/Hgb/Hct/Plts: 6.83/9.3/29.3/297 (01/25 2309) Na/K+/Phos/Mg/Ca: 138/3.9/--/1.5/8.3 (01/26 417) Bun/Creat/Cl/CO2/Glucose: 12/1.03/105/28/143 (01/26 417) A/P: Kerrie Kearney is a 78 y.o. female with PMH cognitive impairment, hyperthyroidism, T2DM, HTN, and prior open cholecystectomy, appendectomy, ZE/BSO, and who presents with encephalopathy. 5 Days Post-Op s/p small bowel resection (Dr. Chester). Plan: - Progressing well following surgery - Paula to remain in place 10-14 days - If patient remains in the hospital at POD[facility], please reach out to surgery for removal - Plan for discharge with PAOLA drain in place - If drain output <50cc/24h prior to discharge please reach out to surgery team - Please provide drain teaching, supplies, and output logs on discharge - Pain control per primary team - Outpatient follow up with surgery in 2-3 weeks (schedulers emailed) - AVS updated with post operative and wound care - ACS will sign off Irene Ahmadi MD Acute Care Surgery 01/27/24 Associated attestation - Tena Sherman MD, MPH - 01/27/2024 4:39 PM EDT Images from the original note were not included. I have seen and examined this patient with the resident on 01/27/2024. I personally obtained edwards and critical portions of the history and physical exam. I reviewed the resident's documentation and discussed the patient with them. I agree with the medical decision making as documented below. I personally read and reviewed any images obtained in the last 24 hours. In brief, this is a 78 yo F with h/o HTN, T2DM, and hyperthyroidism who presented with closed loop SBO 01/21, now s/p XL, MERCEDES, SBR. HDS, AF. Tolerating a regular diet, continues to have bowel movements. Abdomen soft, ND, NT, drain with s/s fluid c/w ascites, incision c/d/I with paula. WBC WNL. - Patient recovering well. Can follow-up with ACS for staple removal and drain removal in 2 weeks. ACS will sign off, please call back if any questions or concerns. Tena Sherman MD MPH [employer] teacher Division of Trauma, Critical Care, Burn Hospital Medicine Daily Progress Note SUBJECTIVE: Pt seen at bedside this morning w/ RN and . Yesterday evening pt became agitated at and required JUANJO for de-escalation. He was upset by this event yesterday and feels responsible. Pt this morning has no recollection of event and denies any complaints. She is able to tell me about her 14y/o dog, Iliana, today. She cannot recall her son's birthday. She is oriented only to self this morning. She tolerated a full liquid diet well and continued to have BMs yesterday. OBJECTIVE FINDINGS: Physical Exam: Vital Signs (24hrs): Temp: [97.4 F (36.3 C)-98.5 F (36.9 C)] 98.1 F (36.7 C) Pulse (Heart Rate): [70-80] 80 Resp Rate: [16-18] 18 BP: (138-180)/(65-93) 167/93 O2 Sat (%): [96 %-98 %] 96 % Weight: [70.5 kg (155 lb 6.8 oz)] 70.5 kg (155 lb 6.8 oz) O2 Device: room air (01/27/24 0839) Flow (L/min): 0 (01/25/24 0920) GEN: lying comfortably in bed, NAD CV: RRR, no m/r/g LUNGS: clear bilaterally, no accessory muscle use ABD: soft, nontender, ND, normal bowel sounds, no HSM, surgical laparotomy scar w/ paula noted w/o surrounding erythema, drain in place EXT: warm and well perfused, no c/c/e NEURO: nothing focal, conversationally confused, A&Ox1 Labs Reviewed in [facility]: Lab Results Component Value Date SODIUM 138 01/27/2024 POTASSIUM 3.9 01/27/2024 CREATSERUM 1.03 01/27/2024 BMI: 27.6 IMPRESSION/PLAN: Kerrie Kearney is a 78 y.o. female with a history of chronic cognitive impairment, hyperthyroidism, DM2, and HTN who presented on 01/11/2024 as a transfer from [place] for further evaluation of encephalopathy and fevers with concern for meningitis. She completed a course of empiric antibiotics for meningitis but hospital course has been complicated by SBO. Small Bowel Obstruction: After complaining of some mild abd pain - followed by vomiting - KUB on 01/18 revealed an ileus vs SBO. Initially seemed to be an ileus as abd exam was fairly benign and she had a few small BMs. However, she later developed worsening feculent vomiting late on 01/[address] demonstrated concern for closed loop small bowel obstruction. -S/p Ex Lap on 01/21 with MERCEDES and SBR with resection of 20cm of necrotic bowel. -Surgery following. Appreciate their assistance -NG removed 01/23. Pt tolerated dinner. + BM beginning 01/24. -advance to Regular Carb Controlled diet today -Surgical drain in place. Continue to monitor output. Appreciate Surgery's assistance with management. Output slowing down per RN. Given persistent high output, may need to consider discharge w/ drain in place - adjust bowel regimen to PRN given pt had x5 BMs yesterday Acute Metabolic Encephalopathy / Presumed Meningitis: Presented with acute confusion (in setting of chronic mild cognitive impairment), headaches, slurred speech, and difficulty ambulating. Febrile to 101.6F at OSH with MRI showing some diffuse restricted diffusion in the cerebral cortex bilaterally most pronounced in the parietal occipital regions - possibly due to inflammation. LP (after a few days of atbx) was largely unrevealing with 5 WBC (44% PMNs), 248 RBC, protein 88, glucose 143, negative culture, negative encephalitis panel, and negative paraneoplastic panel. Ultimately, exact etiology of presentation unclear - but clinically concerning for meningitis. -Evaluated by Neurology and ID. Completed 14 days of empiric antibiotics (Meropenem and Vanc) on 01/20/24 -Continue delirium precautions -Continue sitter for now given some ongoing impulsivity to prevent line removal. Will need to discontinue prior to discharge to SNF. HTN: Normotensive on admission. Home regimen: Coreg 25mg BID, Diltiazem 120mg, Lisinopril 20mg. -Continue Coreg. Reduce dose to 12.5mg BID (01/22) -Continue Diltiazem 120mg -Resume Lisinopril RICK: @ baseline ~0.9-1.1. -DC IVF -Continue to monitor Cr, renally dose meds, and avoid potentially nephrotoxic agents as able DM2 with Hyperglycemia: Hyperglycemic in the 500s on presentation - with A1c 10.6%. Previously on Metformin and Glipizide at home. -Evaluated by Endocrinology and started on Insulin. Plan to continue at discharge. -Continue Lantus 4U this evening w/ increasing PO intake, and SSI for now (plan to switch to fixed dosing at discharge) -Appreciate DM educator and RN's assistance with teaching -Will need all insulin / glucometer supplies at discharge Hyperthyroidism: TSH and fT4 wnl at OSH. Continue home Methimazole. Thyroid Nodules: CTA at OSH revealed incidental 2.8cm L thyroid nodule. Subsequent US showed multinodular goiter with up to 2.3 cm left thyroid TI-RAD 3 lesion and 1.2cm right thyroid TI-RA 4 lesion. Follow up as outpatient for further management / repeat US in 1 year. Oropharyngeal Dysphagia: Has had some dysphagia in setting of encephalopathy but has subsequently been cleared for regular diet once able to resume PO intake. Anxiety: Continue home Cymbalta Hyponatremia: recurring, possibly related to hypotonic saline. Adjust IVF as above. Chronic Anemia: 2/2 chronic disease and phlebotomy. Otherwise, no overt blood loss noted. Continue to monitor FEN: Full liquids + IVF DVT Prophylaxis: SubQ Heparin Code status: Full Code Pt's , Jaime @ [phone], updated at bedside 01/27/24 Dispo: Continue inpatient management. Eventually discharge to SNF (she will not need pre-cert) Isac Chambers MD [facility] Daily Progress Note SUBJECTIVE: Pt seen at bedside this morning w/ RN and . reports pt has been forgetful but she is generally much more lucid than she currently is. She was A&Ox1 this morning. He did state she may struggle w/ knowing where she is or when it is at baseline. Pt denies passing gas or having BM but she had x2 BMs yesterday and another this morning. She is tolerating her diet well w/o pain. would like to get her to SNF prior to transitioning her back to home w/ HHC upon discharge. Her BGLs climbed yesterday evening so dextrose was removed from her IVF overnight. OBJECTIVE FINDINGS: Physical Exam: Vital Signs (24hrs): Temp: [97.4 F (36.3 C)-98 F (36.7 C)] 98 F (36.7 C) Pulse (Heart Rate): [74-80] 76 Resp Rate: [16-18] 16 BP: (129-177)/(62-86) 177/80 O2 Sat (%): [96 %-98 %] 98 % O2 Device: room air (01/26/24 0744) Flow (L/min): 0 (01/25/24 0920) GEN: lying comfortably in bed, NAD CV: RRR, no m/r/g LUNGS: clear bilaterally, no accessory muscle use ABD: soft, nontender, ND, normal bowel sounds, no HSM, surgical laparotomy scar w/ paula noted w/o surrounding erythema, drain in place EXT: warm and well perfused, no c/c/e NEURO: nothing focal, conversationally confused, A&Ox1 Labs Reviewed in [facility]: Lab Results Component Value Date WBC 6.83 01/26/2024 HGB 9.3 (L) 01/26/2024 PLATELET 297 01/26/2024 Images/Report Reviewed XR ABDOMEN 1 VIEW Final Result FINDINGS/IMPRESSION: Persistent ileus BMI: 27.6 IMPRESSION/PLAN: Kerrie Kearney is a 78 y.o. female with a history of chronic cognitive impairment, hyperthyroidism, DM2, and HTN who presented on 01/11/2024 as a transfer from [place] for further evaluation of encephalopathy and fevers with concern for meningitis. She completed a course of empiric antibiotics for meningitis but hospital course has been complicated by SBO. Small Bowel Obstruction: After complaining of some mild abd pain - followed by vomiting - KUB on 01/18 revealed an ileus vs SBO. Initially seemed to be an ileus as abd exam was fairly benign and she had a few small BMs. However, she later developed worsening feculent vomiting late on 01/[address] demonstrated concern for closed loop small bowel obstruction. -S/p Ex Lap on 01/21 with MERCEDES and SBR with resection of 20cm of necrotic bowel. -Surgery following. Appreciate their assistance -NG removed 01/23. Pt tolerated dinner. + BM beginning 01/24. -per d/w Surgery, may advance diet today slowly - full liquids today -Surgical drain in place. Continue to monitor output. Appreciate Surgery's assistance with management. Given persistent high output, may need to consider discharge w/ drain in place - schedule Tylenol to try to minimize needs for opiate/narcotic pain meds Acute Metabolic Encephalopathy / Presumed Meningitis: Presented with acute confusion (in setting of chronic mild cognitive impairment), headaches, slurred speech, and difficulty ambulating. Febrile to 101.6F at OSH with MRI showing some diffuse restricted diffusion in the cerebral cortex bilaterally most pronounced in the parietal occipital regions - possibly due to inflammation. LP (after a few days of atbx) was largely unrevealing with 5 WBC (44% PMNs), 248 RBC, protein 88, glucose 143, negative culture, negative encephalitis panel, and negative paraneoplastic panel. Ultimately, exact etiology of presentation unclear - but clinically concerning for meningitis. -Evaluated by Neurology and ID. Completed 14 days of empiric antibiotics (Meropenem and Vanc) on 01/20/24 -Continue delirium precautions -Continue sitter for now given some ongoing impulsivity to prevent line removal. Will need to discontinue prior to discharge to SNF. HTN: Normotensive on admission. Home regimen: Coreg 25mg BID, Diltiazem 120mg, Lisinopril 20mg. -Continue Coreg. Reduce dose to 12.5mg BID (01/22) -Continue Diltiazem 120mg -Holding home Lisinopril for RICK RICK: @ baseline ~0.9-1.1. -Continue IVF. Dextrose removed from IVF. Can discontinue as PO improves -Continue to monitor Cr, renally dose meds, and avoid potentially nephrotoxic agents as able DM2 with Hyperglycemia: Hyperglycemic in the 500s on presentation - with A1c 10.6%. Previously on Metformin and Glipizide at home. -Evaluated by Endocrinology and started on Insulin. Plan to continue at discharge. -Continue Lantus, increase to 4U this evening w/ increasing PO intake, and SSI for now (plan to switch to fixed dosing at discharge) -Appreciate DM educator and RN's assistance with teaching -Will need all insulin / glucometer supplies at discharge Hyperthyroidism: TSH and fT4 wnl at OSH. Continue home Methimazole. Thyroid Nodules: CTA at OSH revealed incidental 2.8cm L thyroid nodule. Subsequent US showed multinodular goiter with up to 2.3 cm left thyroid TI-RAD 3 lesion and 1.2cm right thyroid TI-RA 4 lesion. Follow up as outpatient for further management / repeat US in 1 year. Oropharyngeal Dysphagia: Has had some dysphagia in setting of encephalopathy but has subsequently been cleared for regular diet once able to resume PO intake. Anxiety: Continue home Cymbalta Hyponatremia: recurring, possibly related to hypotonic saline. Adjust IVF as above. Chronic Anemia: 2/2 chronic disease and phlebotomy. Otherwise, no overt blood loss noted. Continue to monitor FEN: Full liquids + IVF DVT Prophylaxis: SubQ Heparin Code status: Full Code Pt's , Jaime @ [phone], updated at bedside 01/26/24 Dispo: Continue inpatient management. Eventually discharge to SNF (she will not need pre-cert) Isac Chambers MD Acute Care Surgery Progress Note S: No acute events overnight. Afebrile and hemodynamically stable. Remains confused and intermittently disoriented, has a sitter currently. Patient denies nausea or vomiting. Continue to pass gas and had another BM early this morning. She is tolerating a diet. PAOLA with 270cc output over past 24 hours. O: BP 177/80 (BP Location: Left arm, BP Position: Lying) Pulse 76 Temp 98 F (36.7 C) (Oral) Resp 16 Ht 1.549 m (5' 1) Wt 66.2 kg (146 lb) SpO2 98% BMI 27.59 kg/m I/O last 3 completed shifts: In: 2553.6 [P.O.:895; I.V.:1658.6] Out: 3655 [Urine:3275; Other:380] Physical Exam: Gen: lying in bed, NAD Lungs: no increased work of breathing Cardiac: regular rate and rhythm Abdomen: soft, non-distended, appropriately tender; midline incision c/d/I closed with paula; paola drain in RLQ with serosanguinous output Labs: Na/K+/Phos/Mg/Ca: 135/4.1/--/1.6/8.3 (01/24 2309) Bun/Creat/Cl/CO2/Glucose: 16/1.11/103/24/203 (01/24 2309-01/257) A/P: Kerrie Kearney is a 78 y.o. female with PMH cognitive impairment, hyperthyroidism, T2DM, HTN, and prior open cholecystectomy, appendectomy, ZE/BSO, and who presents with encephalopathy. 4 Days Post-Op s/p small bowel resection (Dr. Chester). Plan: - Patient with ongoing bowel function; okay to DC daily KUB - Obtain daily labs - Paula to remain in place 10-14 days - PAOLA to remain in place, may be discharged with drain in place given ongoing high output - Pain control per primary team - ACS will continue to follow Irene Ahmadi MD Acute Care Surgery 01/26/24 Associated attestation - Jacob Chester MD - 01/26/2024 7:24 PM EDT Acute Care Surgery Attending Attestation Kerrie Kearney was seen and examined with Irene Ahmadi MD on 01/26/24. I personally reviewed relevant laboratory results and studies, as well as preformed critical components of the physical exam. Discussed the plan of care with the resident physician. I agree with the history, physical exam, assessment, and plan of care. Continues to have bowel function though she does not remember. OK to advance diet as tolerated. Jacob Chester MD Acute Care Surgery Fellow Division of Trauma, Critical Care and Burn Department of Surgery NUTRITION FOLLOW-UP Pt with identified nutrition risk factors: Current admit, PMHx, Advanced age, and Altered mental status Nutrition Plan of Care: 1. Continue current diet order. 2. Will provide any flavor Ensure Clear (240 kcal, 8g PRO each)or equivalent based on availability once daily with Dinner to increase calorie and protein intake and to improve po intake 3. Monitor Weight status, Nutrition related Labs, Po intake & GI function -Please obtain a current wt to assist with determining malnutrition risk. 4. Monitor and encourage po intakes with goal of average po being 50-100%. -Please consistently document PO intake (including supplements) to assist with monitoring trends and plan of care goals. 5. Jet Pilot to follow. Samantha Robin NDTR Pager#[phone] ___ Pt unavailable and information obtained via chart review: Pt was with PT care when I stopped by Diet order: DIET CLEAR LIQUID Carb Controlled Per doc flow sheet: Po average over past five days is 100% of 1 meals. Admit wt: 146 Last recorded : Weight: 66.2 kg (146 lb) Height: 154.9 cm (5' 1) unable to assess weight changes Net IO Since Admission: 5,095.68 mL [01/25/24 1402] Skin Arnoldo Score: 15 STAND skin bundle initiated Active Wounds: Wound Incision 01/22/24 1409 Midline Abdomen (3) Wound Incision 01/22/24 1430 Abdomen (3) Edema: - Meds- Acetaminophen 650 mg Oral Q6H Or Acetaminophen 650 mg Oral Q6H Or Acetaminophen 650 mg Rectal Q6H Atorvastatin 10 mg Oral QHS carveDILOL 6.25 mg Oral BID Diltiazem 120 mg Oral Daily DULoxetine 30 mg Oral Daily heparin 5,000 Units Subcutaneous Q8H insulin glargine 2 Units Subcutaneous QHS Insulin lispro Subcutaneous TID AC [Held by provider] Lisinopril 20 mg Oral Daily methimazole 5 mg Oral Once per day on Sunday Pantoprazole 40 mg Oral BID Polyethylene glycol 17 g Oral Daily Senna 8.6 mg Oral Q12H Labs- Latest Reference Range & Units Most Recent SODIUM 135 - 145 mmol/L 133 (L) 01/25/24 06:14 POTASSIUM 3.5 - 5.0 mmol/L 4.4 01/25/24 06:14 CHLORIDE 98 - 108 mmol/L 100 01/25/24 06:14 CARBON DIOXIDE (CO2) 21 - 31 mmol/L 25 01/25/24 06:14 BUN 7 - 25 mg/dL 19 01/25/24 06:14 Creatinine 0.50 - 1.20 mg/dL 1.11 01/25/24 06:14 BUN/CREA RATIO 17 01/25/24 06:14 eGFR, CKD-EPI, Female >=60 mL/min/1.73m2 52 (L) 01/25/24 06:14 MAGNESIUM 1.6 - 2.6 mg/dL 1.7 01/25/24 06:14 CALCIUM 8.6 - 10.5 mg/dL 8.6 01/25/24 06:14 ANION GAP 7 - 17 mmol/L 12 01/25/24 06:14 OSMOLALITY (CALC) 278 - 305 mOsm/kg 288 01/25/24 06:14 BILIRUBIN, TOTAL <1.5 mg/dL 0.5 01/22/24 06:19 PROTEIN, TOTAL 6.4 - 8.3 g/dL 6.3 (L) 01/22/24 06:19 Albumin 3.5 - 5.0 g/dL 3.4 (L) 01/22/24 06:19 GI-Last Bowel Movement: 01/25/24 ELMER LujanR Pager:[phone] [facility] Daily Progress Note SUBJECTIVE: Pt reports that she is doing fairly well this morning. She denies flatus or BMs but she was laying in feces on the bed this morning. She has no recollection of having a BM. She denies pain. No concerns per RN overnight. She ate most of her dinner w/o difficulty last night. OBJECTIVE FINDINGS: Physical Exam: Vital Signs (24hrs): Temp: [97.3 F (36.3 C)-98.3 F (36.8 C)] 97.8 F (36.6 C) Pulse (Heart Rate): [67-81] 77 Resp Rate: [14-18] 18 BP: (124-174)/(61-97) 174/86 O2 Sat (%): [91 %-97 %] 97 % O2 Device: room air (01/25/24 0920) Flow (L/min): 0 (01/25/24 0920) GEN: lying comfortably in bed, NAD CV: RRR, no m/r/g LUNGS: clear bilaterally, no accessory muscle use ABD: soft, nontender, ND, normal bowel sounds, no HSM, surgical laparotomy scar w/ paula noted w/o surrounding erythema, drain in place EXT: warm and well perfused, no c/c/e NEURO: nothing focal, conversationally confused, A&Ox1 Labs Reviewed in Epic: Lab Results Component Value Date SODIUM 133 (L) 01/25/2024 POTASSIUM 4.4 01/25/2024 CREATSERUM 1.11 01/25/2024 XR ABDOMEN 1 VIEW Final Result FINDINGS/IMPRESSION: Tubes: A Leonard catheter is noted. Bowel gas pattern: Persistent gaseous dilatation of multiple loops of small bowel appear slightly increase in the right hemiabdomen since prior exam. No visible free air. Left-sided skin paula are noted. Partially imaged right femoral fixation hardware. BMI: 27.6 IMPRESSION/PLAN: Kerrie Kearney is a 78 y.o. female with a history of chronic cognitive impairment, hyperthyroidism, DM2, and HTN who presented on 01/11/2024 as a transfer from [place] for further evaluation of encephalopathy and fevers with concern for meningitis. She completed a course of empiric antibiotics for meningitis but hospital course has been complicated by SBO. Small Bowel Obstruction: After complaining of some mild abd pain - followed by vomiting - KUB on 01/18 revealed an ileus vs SBO. Initially seemed to be an ileus as abd exam was fairly benign and she had a few small BMs. However, she later developed worsening feculent vomiting late on 01/[address] demonstrated concern for closed loop small bowel obstruction. -S/p Ex Lap on 01/21 with MERCEDES and SBR with resection of 20cm of necrotic bowel. -Surgery following. Appreciate their assistance -NG removed 01/23. Pt tolerated dinner. + BM 01/24 am. -Continue clears and advance diet slowly -Surgical drain in place. Continue to monitor output. Appreciate Surgery's assistance with management. - daily Abd Xrays for evaluation - schedule Tylenol to try to minimize needs for opiate/narcotic pain meds Acute Metabolic Encephalopathy / Presumed Meningitis: Presented with acute confusion (in setting of chronic mild cognitive impairment), headaches, slurred speech, and difficulty ambulating. Febrile to 101.6F at OSH with MRI showing some diffuse restricted diffusion in the cerebral cortex bilaterally most pronounced in the parietal occipital regions - possibly due to inflammation. LP (after a few days of atbx) was largely unrevealing with 5 WBC (44% PMNs), 248 RBC, protein 88, glucose 143, negative culture, negative encephalitis panel, and negative paraneoplastic panel. Ultimately, exact etiology of presentation unclear - but clinically concerning for meningitis. -Evaluated by Neurology and ID. Completed 14 days of empiric antibiotics (Meropenem and Vanc) on 01/20/24 -Continue delirium precautions -Continue sitter for now given some ongoing impulsivity to prevent line removal HTN: Normotensive on admission. Home regimen: Coreg 25mg BID, Diltiazem 120mg, Lisinopril 20mg. -Continue Coreg. Reduce dose to 12.5mg BID (01/22) -Continue Diltiazem 120mg -Holding home Lisinopril for RICK RICK: Cr 1.2 from baseline ~0.9-1.1. -Continue IVF. Change to D5.09+20meqKCl d/t hyponatremia and lack of PO intake -Continue to monitor Cr, renally dose meds, and avoid potentially nephrotoxic agents as able DM2 with Hyperglycemia: Hyperglycemic in the 500s on presentation - with A1c 10.6%. Previously on Metformin and Glipizide at home. -Evaluated by Endocrinology and started on Insulin. Plan to continue at discharge. -Continue Lantus (reduced while NPO, may need to uptitrate as PO increases) and SSI for now (plan to switch to fixed dosing at discharge) -Appreciate DM educator and RN's assistance with teaching -Will need all insulin / glucometer supplies at discharge Hyperthyroidism: TSH and fT4 wnl at OSH. Continue home Methimazole. Thyroid Nodules: CTA at OSH revealed incidental 2.8cm L thyroid nodule. Subsequent US showed multinodular goiter with up to 2.3 cm left thyroid TI-RAD 3 lesion and 1.2cm right thyroid TI-RA 4 lesion. Follow up as outpatient for further management / repeat US in 1 year. Oropharyngeal Dysphagia: Has had some dysphagia in setting of encephalopathy but has subsequently been cleared for regular diet once able to resume PO intake. Anxiety: Continue home Cymbalta Hyponatremia: recurring, possibly related to hypotonic saline. Adjust IVF as above. Chronic Anemia: 2/2 chronic disease and phlebotomy. Otherwise, no overt blood loss noted. Continue to monitor FEN: DIET NPO with meds DVT Prophylaxis: SubQ Heparin Code status: Full Code Pt's , Jaime @ [phone], on 01/24/24 w/o answer Dispo: Continue inpatient management. Eventually discharge to SNF (she will not need pre-cert) Isac Chambers MD Acute Physical Therapy Treatment Prior Gross Functional Mobility: used device Current AM-PAC score(s): CURRENT AM-PAC Mobility Raw Score: 16 Based on the above AM-PAC score(s) and PT clinical judgment, patient is a good [facility] Facility Barriers to discharge home: Patient needs assistance with functional mobility Mobility equipment available at home: rollator, straight cane ADL equipment available at home: shower chair, grab bars Equipment needed for discharge: to be determined Current therapy frequency recommendation in acute: Therapy Frequency: 5 times a week Activity Recommendations for outside of rehab session: x1 bed to chair with walker Precautions and Weightbearing Status: Existing Precautions/Restrictions: fall, abdominal Urinary catheter (JPx1) Patient Safety Communication Prior to Visit: Nursing Subjective: Patient supine in bed and agreeable to therapy. Pain: General Pain Documentation (Adult, OB, Peds) Presence of Pain: reports pain/discomfort Pain Location: abdomen Objective/Observation: Vitals/Vitals Responses to Treatment: VSS O2 Device: room air Cognition Overall Cognitive Status: Impaired Arousal/Alertness: Delayed responses to stimuli Orientation Level: Oriented to person (repeated re-orientation throughout with limited carry-over) Extremity Assessments: See PT Evaluation flowsheet for Extremity Measurement updates. Skin and Edema: Balance: Sitting Balance Static Sitting-Level of Assistance: Standby Dynamic Sitting-Level of Assistance: Contact guard Skilled Rationale: Verbal cues, Hand placement, Positioning, Finding/maintaining midline positioning Sitting Balance Skilled Intervention/Details: Sitting EOB ~2 minutes with no LOB and cues for upright posture. Standing Balance Static Standing-Level of Assistance: Contact guard Dynamic Standing-Level of Assistance: Minimum assistance Standing-Balance Support: Gait belt, 2 wheeled walker Skilled Rationale: Verbal cues, Hand placement, Positioning, Full extension to upright positioning/posture, Upright gaze/neck extension Standing Balance Skilled Intervention/Details: Educated for maintaining appropriate ANGELINA and staying within base of walker to improve stability and decrease postural sway. Mobility Assessment/Intervention: Supine to Sit Mobility Clare Level: Supine->Sit: minimum assist (75% patient effort) Bed Features/Set-up: Supine->Sit: Head of bed elevated, Use of bed rail Skilled Rationale: Verbal cues, Hand placement, Sequencing, Technique of activity Skilled Intervention/Details: Supine->Sit: Educated for log roll with cues for sequencing Transfer Assessment/Intervention: Sit to Stand Transfer Clare Level: Sit->Stand: minimum assist (75% patient effort) Assistive Device: Sit->Stand: gait belt, 2 wheeled walker Skilled Rationale: Verbal cues, Sequencing, Hand placement, Facilitate anterior shift Skilled Intervention/Details: Sit->Stand: Educated for pushing from seat with BUE x1 from EOB, x3 from recliner. Stand to Sit Transfer Clare Level: Stand->Sit: minimum assist (75% patient effort) Assistive Device: Stand->Sit: gait belt, armed chair Skilled Rationale: Verbal cues, Hand placement, Controlled descent for sitting Skilled Intervention/Details: Stand->Sit: Cues for reaching ack for seat with fair compliance this date. Bed-Chair Transfer Clare Level: Bed<->Chair: minimum assist (75% patient effort) Assistive Device: Bed<->Chair: gait belt, 2 wheeled walker Skilled Rationale: Verbal cues, Sequencing Gait/Functional Mobility Assessment/Intervention: Gait Assessment Clare Level: Gait: minimum assist (75% patient effort) Physical Assist: Gait: chair follow Assistive Device: Gait: gait belt, 2 wheeled walker Ambulation Distance (Feet): 30 (30x1, 20x1) Gait Deviations Identified: decreased gait speed, decreased chris, decreased heel strike, decreased stride length, flexed posture, increased postural sway, narrow base of support Gait Skilled Rationale: verbal, tactile, upright posture, increase step length, increase step width, improve foot placement, increase foot clearance, proximity of assistive device Skilled Intervention/Details - Gait: Educated for increasing ANGELINA and stride length to improve independence with fair carry-over. Frequent cues for staying within base of walker to improve stability and independence. Stairs Assessment/Intervention: CURRENT [facility] Basic Mobility Inpatient Short Form Turning over in bed: 3 - A Little Assistance Moving from lying on back to sittin - A Little Assistance Moving to and from bed to chair: 3 - A Little Assistance Sitting/standing from chair: 3 - A Little Assistance Walk in hospital room: 3 - A Little Assistance Climbing 3-5 steps with a railin - Total Assistance CURRENT [facility] Mobility Raw Score: 16 CURRENT [facility] Mobility Functional Limitation: 54.16% Impaired in Basic Mobility Assessment & Plan: Patient progressing with improved bed mobility, transfers, and gait training this date with improved carry-over of education. Patient continues to be limited by impaired balance, strength, and safety judgment with increased risk for falls. Patient would benefit from continued PT to improve functional mobility, independence, and decrease risk for falls to improve quality of life and allow for safe return to prior living environment. Patient Instruction/Education this session: Learners: Patient Education provided: Activity outside of therapy, Plan of care Plan for next session: Progress gait and transfers Acute PT Goals Plan of Care by Leonel Whitaker PT at 01/25/2024 9:35 AM Version 1 of 1 Problem: PT - General Goals Goal: Supine <-> Sit Transfers - Patient will perform supine to/from sit transfers with standby assistance and without use of hospital bed features in order to improve functional mobility and safety. Outcome: Progressing Goal: Sit <-> Stand Transfers - Patient will perform sit to/from stand transfers with standby assistance and wheeled walker in order to improve functional mobility and safety. Outcome: Progressing Goal: Ambulation - Patient will ambulate 100 feet with standby assistance and wheeled walker to improve ability to safely navigate home and community. Outcome: Progressing PT treatment consisted of the following to progress towards the above goal(s): PT Evaluation and Treatment Time Therapeutic Activity Time Entry: 13 Gait Training Time Entry: 11 Treating Therapist: Leonel Whitaker PT Additional Details: PT Co-Eval/Treatment Information Co-evaluation/co-treatment performed?: No simultaneous skilled care performed Assisted by during session: UMER Fuentes PPE used during patient interaction: gloves Patient location at end of session: chair Alarms on at end of session: RN aware, none altered Needs in reach. Time In: 934 Time Out: 958 Total Visit Time: 24 minutes Total Treatment Time (skilled, billable minutes): 24 minutes Upon discontinuation of Acute Care Physical Therapy Services or patient discharge from the hospital this note represents the current Physical Therapy Discharge Summary. Acute Care Surgery Progress Note S: No acute events overnight. Patient resting in bed this morning. Pain well controlled. O: BP 162/75 (BP Location: Left arm, BP Position: Lying) Pulse 67 Temp 97.8 F (36.6 C) (Axillary) Resp 14 Ht 1.549 m (5' 1) Wt 66.2 kg (146 lb) SpO2 95% BMI 27.59 kg/m I/O last 3 completed shifts: In: 180 [P.O.:180] Out: 3120 [Urine:2750; Other:370] Physical Exam: Gen: lying in bed, NAD Lungs: no increased work of breathing Cardiac: regular rate and rhythm Abdomen: soft, non-distended, appropriately tender; midline incision c/d/I closed with apula; paola drain in RLQ with serosanguinous output (370) Labs: Na/K+/Phos/Mg/Ca: 133/4.4/--/1.7/8.6 (01/24 614) Bun/Creat/Cl/CO2/Glucose: 19/1.11/100/25/177 (01/24 614) A/P: Kerrie Kearney is a 78 y.o. female with PMH cognitive impairment, hyperthyroidism, T2DM, HTN, and prior open cholecystectomy, appendectomy, ZE/BSO, and who presents with encephalopathy. POD2 s/p small bowel resection (Dr. Chester). - AROBF - Obtain daily AXR - Obtain daily labs - Pain control per primary team - ACS will continue to follow Josh Camacho MD Acute Care Surgery Pager #: [phone] 01/25/24 Associated attestation - Jacob Chester MD - 01/25/2024 10:57 AM EDT Acute Care Surgery Attending Attestation Kerrie Kearney was seen and examined with Josh Camacho MD on 01/25/24. I personally reviewed relevant laboratory results and studies, as well as preformed critical components of the physical exam. Discussed the plan of care with the resident physician. I agree with the history, physical exam, assessment, and plan of care. Up in a chair. No complaints. Has not passed flatus yet or any Bms. Asking when she can go home. Unfortunately XR today with loops even more dilated than before. She is high aspiration risk. Would re insert NG to suction and wait until she opens up. Jacob Chester MD Acute Care Surgery Fellow Division of Trauma, Critical Care and Burn Department of Surgery Acute Physical Therapy Treatment Prior Gross Functional Mobility: used device Current AM-PAC score(s): CURRENT AM-PAC Mobility Raw Score: 12 Based on the above AM-PAC score(s) and PT clinical judgment, patient is a good [facility] Facility Barriers to discharge home: Patient needs assistance with functional mobility Mobility equipment available at home: rollator, straight cane ADL equipment available at home: shower chair, grab bars Equipment needed for discharge: to be determined Current therapy frequency recommendation in acute: Therapy Frequency: 5 times a week Activity Recommendations for outside of rehab session: 1 person assist with 2 wheeled walker to side-step to bedside commode/chair. Precautions and Weightbearing Status: Existing Precautions/Restrictions: fall, abdominal Urinary catheter (JPx1, NGT) Patient Safety Communication Prior to Visit: Nursing Subjective: Patient seated in recliner and agreeable to therapy. Pain: General Pain Documentation (Adult, OB, Peds) Presence of Pain: reports pain/discomfort Pain Location: abdomen Objective/Observation: Vitals/Vitals Responses to Treatment: VSS O2 Device: room air Cognition Overall Cognitive Status: Impaired Arousal/Alertness: Delayed responses to stimuli Orientation Level: Oriented to person Extremity Assessments: See PT Evaluation flowsheet for Extremity Measurement updates. Skin and Edema: Balance: Standing Balance Static Standing-Level of Assistance: Minimum assistance Dynamic Standing-Level of Assistance: Minimum assistance Standing-Balance Support: Gait belt, 2 wheeled walker Skilled Rationale: Verbal cues, Positioning, Upright gaze/neck extension, Finding/maintaining midline positioning, Hand placement Standing Balance Skilled Intervention/Details: Frequent cues for maintaining appropriate ANGELINA and head up to improve stability. patient requires frequent cues for hand placement on walker often resting elbows on walker. Mobility Assessment/Intervention: Transfer Assessment/Intervention: Sit to Stand Transfer Clare Level: Sit->Stand: moderate assist (50% patient effort) Assistive Device: Sit->Stand: gait belt, 2 wheeled walker Skilled Rationale: Verbal cues, Hand placement, Sequencing, Full extension to upright positioning/posture, Facilitate anterior shift Skilled Intervention/Details: Sit->Stand: x7 from recliner with frequent cues for hand placement and sequencing. patient requires cues for keeping feet back during transfers to facilitate improved BLE engagement. Stand to Sit Transfer Clare Level: Stand->Sit: minimum assist (75% patient effort) Assistive Device: Stand->Sit: gait belt, armed chair Skilled Rationale: Verbal cues, Hand placement, Controlled descent for sitting Skilled Intervention/Details: Stand->Sit: max cues for reaching back with poor compliance throughout. Educated for backing up to seat to improve safety and improve controlled descent. Gait/Functional Mobility Assessment/Intervention: Stairs Assessment/Intervention: CURRENT [facility] Basic Mobility Inpatient Short Form Turning over in bed: 3 - A Little Assistance Moving from lying on back to sittin - A Lot of Assistance Moving to and from bed to chair: 2 - A Lot of Assistance Sitting/standing from chair: 2 - A Lot of Assistance Walk in hospital room: 2 - A Lot of Assistance Climbing 3-5 steps with a railin - Total Assistance CURRENT [facility] Mobility Raw Score: 12 CURRENT [facility] Mobility Functional Limitation: 68.66% Impaired in Basic Mobility Interventions: Standing marching and heel raises x10 bilaterally with BUE support and max cues for sequencing to improve standing balance with functional tasks. Assessment & Plan: Patient making slow progress limited by impaired cognition and balance and strength. Patient with inconsistent carry-over of education throughout session and poor insight to impairments. Patient would benefit from continued PT to improve balance, gait, and functional mobility for improved quality of life. Patient Instruction/Education this session: Learners: Patient, Spouse Education provided: Discharge recommendations, Activity outside of therapy, Precautions/weight bearing status Plan for next session: Progress transfers and gait Acute PT Goals Plan of Care by Leonel Whitaker PT at 01/24/2024 1:43 PM Version 1 of 1 Problem: PT - General Goals Goal: Supine <-> Sit Transfers - Patient will perform supine to/from sit transfers with standby assistance and without use of hospital bed features in order to improve functional mobility and safety. Outcome: Ongoing Goal: Ambulation - Patient will ambulate 100 feet with standby assistance and wheeled walker to improve ability to safely navigate home and community. Outcome: Ongoing Goal: Stairs - Patient will ascend/descend 3 stairs with standby assistance, least restrictive device, and no railing(s) to improve ability to safely navigate home and community. Outcome: Ongoing Problem: PT - General Goals Goal: Sit <-> Stand Transfers - Patient will perform sit to/from stand transfers with standby assistance and wheeled walker in order to improve functional mobility and safety. Outcome: Progressing PT treatment consisted of the following to progress towards the above goal(s): PT Evaluation and Treatment Time Therapeutic Activity Time Entry: 26 Treating Therapist: Leonel Petrozzi, PT Additional Details: PT Co-Eval/Treatment Information Co-evaluation/co-treatment performed?: No simultaneous skilled care performed PPE used during patient interaction: gloves Patient location at end of session: chair Alarms on at end of session: RN aware, none altered Needs in reach. Time In: 1343 Time Out: 1409 Total Visit Time: 26 minutes Total Treatment Time (skilled, billable minutes): 26 minutes Upon discontinuation of Acute Care Physical Therapy Services or patient discharge from the hospital this note represents the current Physical Therapy Discharge Summary. [facility] Daily Progress Note SUBJECTIVE: Pt reports that she is doing fairly well this morning. She is uncertain if she is passing gas but she does not think she is. She has not had any BMs per RN. She tolerated clamping of NG this morning w/o residuals. She states her pain is fairly well controlled at this time. She remains pleasantly confused and commented that this provider shares the same name w/ her several times during my bedside evaluation. OBJECTIVE FINDINGS: Physical Exam: Vital Signs (24hrs): Temp: [97.6 F (36.4 C)-98.8 F (37.1 C)] 98.3 F (36.8 C) Pulse (Heart Rate): [80-88] 81 Resp Rate: [18-27] 20 BP: (123-157)/(58-78) 143/78 O2 Sat (%): [91 %-96 %] 94 % O2 Device: room air (01/24/24 0904) Flow (L/min): 0 (01/23/241922) GEN: sitting upright comfortably in chair, NAD CV: RRR, no m/r/g LUNGS: clear bilaterally, no accessory muscle use ABD: soft, mild diffuse TTP w/o rebound/guarding, ND, normal bowel sounds, no HSM, surgical laparotomy scar w/ paula noted w/o surrounding erythema, drain in place EXT: warm and well perfused, no c/c/e NEURO: nothing focal, conversationally confused, A&Ox2 Labs Reviewed in Epic: Lab Results Component Value Date SODIUM 131 (L) 01/24/2024 POTASSIUM 4.8 01/24/2024 CREATSERUM 1.24 (H) 01/24/2024 WBC 10.65 01/24/2024 HGB 10.0 (L) 01/24/2024 PLATELET 263 01/24/2024 XR ABDOMEN 1 VIEW Final Result IMPRESSION: Dilated small bowel loops which could indicate obstruction versus ileus. BMI: 27.6 IMPRESSION/PLAN: Kerrie Kearney is a 78 y.o. female with a history of chronic cognitive impairment, hyperthyroidism, DM2, and HTN who presented on 01/11/2024 as a transfer from [place] for further evaluation of encephalopathy and fevers with concern for meningitis. She completed a course of empiric antibiotics for meningitis but hospital course has been complicated by SBO. Small Bowel Obstruction: After complaining of some mild abd pain - followed by vomiting - KUB on 01/18 revealed an ileus vs SBO. Initially seemed to be an ileus as abd exam was fairly benign and she had a few small BMs. However, she later developed worsening feculent vomiting late on 01/[address] demonstrated concern for closed loop small bowel obstruction. -S/p Ex Lap on 01/21 with MERCEDES and SBR with resection of 20cm of necrotic bowel. -Surgery following. Appreciate their assistance -Leave NG in place for now - with plans to hook to suction if any recurrent nausea / vomiting. If continues to do well w/o residuals, will consider removal w/ gentle PO intake. -Continue NPO for now until pt passing gas and / or moving bowels -Surgical drain in place. Continue to monitor output. Appreciate Surgery's assistance with management. - daily Abd Xrays for evaluation - schedule Tylenol to try to minimize needs for opiate/narcotic pain meds Acute Metabolic Encephalopathy / Presumed Meningitis: Presented with acute confusion (in setting of chronic mild cognitive impairment), headaches, slurred speech, and difficulty ambulating. Febrile to 101.6F at OSH with MRI showing some diffuse restricted diffusion in the cerebral cortex bilaterally most pronounced in the parietal occipital regions - possibly due to inflammation. LP (after a few days of atbx) was largely unrevealing with 5 WBC (44% PMNs), 248 RBC, protein 88, glucose 143, negative culture, negative encephalitis panel, and negative paraneoplastic panel. Ultimately, exact etiology of presentation unclear - but clinically concerning for meningitis. -Evaluated by Neurology and ID. Completed 14 days of empiric antibiotics (Meropenem and Vanc) on 01/20/24 -Continue delirium precautions -Continue sitter for now given some ongoing impulsivity to prevent line removal HTN: Normotensive on admission. Home regimen: Coreg 25mg BID, Diltiazem 120mg, Lisinopril 20mg. -Continue Coreg. Reduce dose to 12.5mg BID (01/22) -Continue Diltiazem 120mg -Holding home Lisinopril for RICK RICK: Cr 1.2 from baseline ~0.9-1.1. -Continue IVF. Change to D5.45+20meqKCl d/t hyponatremia and lack of PO intake -Continue to monitor Cr, renally dose meds, and avoid potentially nephrotoxic agents as able DM2 with Hyperglycemia: Hyperglycemic in the 500s on presentation - with A1c 10.6%. Previously on Metformin and Glipizide at home. -Evaluated by Endocrinology and started on Insulin. Plan to continue at discharge. -Continue Lantus (reduced while NPO) and SSI for now (plan to switch to fixed dosing at discharge) -Appreciate DM educator and RN's assistance with teaching -Will need all insulin / glucometer supplies at discharge Hyperthyroidism: TSH and fT4 wnl at OSH. Continue home Methimazole. Thyroid Nodules: CTA at OSH revealed incidental 2.8cm L thyroid nodule. Subsequent US showed multinodular goiter with up to 2.3 cm left thyroid TI-RAD 3 lesion and 1.2cm right thyroid TI-RA 4 lesion. Follow up as outpatient for further management / repeat US in 1 year. Oropharyngeal Dysphagia: Has had some dysphagia in setting of encephalopathy but has subsequently been cleared for regular diet once able to resume PO intake. Anxiety: Continue home Cymbalta Hyponatremia: recurring, possibly related to hypotonic saline. Adjust IVF as above. Chronic Anemia: 2/2 chronic disease and phlebotomy. Otherwise, no overt blood loss noted. Continue to monitor FEN: DIET NPO with meds DVT Prophylaxis: SubQ Heparin Code status: Full Code Pt's , Jaime @ [phone], on 01/24/24 w/o answer Dispo: Continue inpatient management. Eventually discharge to SNF (she will not need pre-cert) Isac Chambers MD Acute Occupational Therapy Treatment Prior Gross Functional Mobility: used device Current AM-PAC score(s): CURRENT AM-PAC Activity Raw Score: 14 Based on the above AM-PAC score(s), and OT clinical judgment, discharge destination recommendation is: Jail Facility Barriers to discharge home: Patient needs assistance with functional mobility, Patient needs assistance with ADLs, Patient needs assistance with IADLs (see note below), Patient needs assistance with medication management, Patient needs assistance with self-care for medical condition (see note below), Pain management concerns, Cognitive impairments that impact safety (see note below), Assistance needed to ensure precautions are maintained (see note below) Mobility equipment available at home: rollator, straight cane ADL equipment available at home: shower chair, grab bars Equipment recommendations for discharge: 2 wheeled walker, raised toilet seat, shower chair, bathing equipment, dressing equipment, toileting equipment Current therapy frequency recommendation(s) in acute: 5 times a week Activity Recommendations for outside of rehab session: 1 person assist with 2 wheeled walker to side-step to bedside commode/chair. Precautions and Weightbearing Status: OT Existing Precautions/Restrictions: abdominal, fall, cardiac (sitter) Urinary catheter, Telemetry Patient Safety Communication Prior to Visit: Nursing Subjective: Pt pleasant and agreeable to OT session, reports abdominal pain but unsure why she is having it. My parents are coming to see me later.: Pain: General Pain Documentation (Adult, OB, Peds) Presence of Pain: reports pain/discomfort Pain Location: abdomen DVPRS (Defense and Veterans Pain Rating Scale) DVPRS: Rest: 6- moderate pain DVPRS: Activity: 7- severe pain Objective/Observation: Vitals/Vitals Responses to Treatment: VSS on tele/pulse ox O2 Device: room air Cognition Overall Cognitive Status: Impaired Arousal/Alertness: Delayed responses to stimuli Orientation Level: Oriented to person (pt not aware of place - able to recall hospital at end of session after informed twice during session; re-oriented to date/situation as well) Following Commands: Follows one step commands with increased time, Follows one step commands with repetition Safety Judgment: Decreased awareness of need for assistance, Decreased awareness of need for safety Awareness of Errors: Assistance required to identify errors made, Assistance required to correct errors made Deficits: Decreased awareness of deficits Attention Span: Difficulty dividing attention, Attends with cues to redirect Memory: Decreased short term memory, 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, Decreased recall of recent events, Decreased recall of biographical information, Decreased recall of precautions (no recall of abdominal precautions (re-educated with no carryover at end of session)) Problem Solving: Assistance required to identify errors made, Assistance required to generate solutions, Assistance required to implement solutions Cognition Comments: Pleasantly confused; poor short terl recall of education/information throughout session ADL Assessment/Intervention: ADLs: Eating Assistance: Grooming Assistance: Contact guard assist Grooming Location: seated at sink, standing at sink Grooming Deficit: Wash/dry face, Oral care, Brushing hair, Initiation, Sequencing, Problem solving, Follows safety/precautions, Balance, Retrieval of items, Pain, Generalized weakness, Activity tolerance, Increased time to complete Grooming Skilled Rationale (Verbal/Tactile/Visual/Demonstrati on): Facilitate positioning, Cues for cognitive deficit, Technique of activity, Standing with assistive device, Cues for increased safety, Setup, Supervision Grooming Intervention/Details: Pt stood to brush teeth and wash face, sat to brush hair d/t fatigue. Moderate cueing throughout for simple sequencing and problem solving. Bathing Assistance: UE Dressing Assistance: LE Dressing Assistance: Toilet Assistance: Extremity Assessments: See OT Evaluation flowsheet for Extremity Measurement updates. Balance: Sitting Balance Static Sitting-Level of Assistance: Standby Dynamic Sitting-Level of Assistance: Contact guard Skilled Rationale: Positioning Sitting Balance Skilled Intervention/Details: no LOB EOB during scooting and in prep for standing Standing Balance Static Standing-Level of Assistance: Contact guard Dynamic Standing-Level of Assistance: Minimum assistance Standing-Balance Support: Gait belt, 2 wheeled walker Skilled Rationale: Positioning, Hand placement, Verbal cues, Full extension to upright positioning/posture, Technique of activity, Cues for increased safety Standing Balance Skilled Intervention/Details: Pt tolerated standing sinkside ~6 minutes for g/h w/ forward flexed position and B elbow supported on sink during oral hygiene; able to improve upright positioning w/ cueing during facewashing w/ unilateral UE support on sink edge. Skin and Edema: Mobility Assessment/Intervention: Supine to Sit Mobility Clare Level: Supine->Sit: moderate assist (50% patient effort) Bed Features/Set-up: Supine->Sit: Head of bed elevated, Use of bed rail Skilled Rationale: Positioning, Hand placement, Verbal cues, Technique of activity, Full extension to upright positioning/posture Skilled Intervention/Details: Supine->Sit: Cues for logroll, assist w/ trunk to upright Sit to Supine Mobility Clare Level: Sit->Supine: not tested Transfer Assessment/Intervention: Sit to Stand Transfer Clare Level: Sit->Stand: moderate assist (50% patient effort) Assistive Device: Sit->Stand: gait belt, 2 wheeled walker Skilled Rationale: Positioning, Hand placement, Verbal cues, Full extension to upright positioning/posture Skilled Intervention/Details: Sit->Stand: x1 from EOB, x1 from recliner - cueing each time for hand placement and anterior weightshifting Stand to Sit Transfer Clare Level: Stand->Sit: minimum assist (75% patient effort) Assistive Device: Stand->Sit: gait belt, 2 wheeled walker, armed chair Skilled Rationale: Positioning, Hand placement, Verbal cues, Tactile cues, Controlled descent for sitting, Technique of activity, Cues for increased safety Skilled Intervention/Details: Stand->Sit: x2 to recliner, cueing for proximity, hand placement, and controlled descent Bed-Chair Transfer Clare Level: Bed<->Chair: minimum assist (75% patient effort) Assistive Device: Bed<->Chair: gait belt, 2 wheeled walker Skilled Rationale: Positioning, Hand placement, Verbal cues, Facilitate anterior shift, Full extension to upright positioning/posture, Controlled descent for sitting, Technique of activity, Cues for increased safety Skilled Intervention/Details: Bed<->Chair: Pt performs stand-step transfer bed>recliner w/ Min A at 2ww - pt forward flexed, minimal correction after cueing for upright positioning Functional Mobility: Outcome Score(s): \ CURRENT [facility] Daily Activity Inpatient Short Form Putting on/Taking Off Lower Body Clothin - Total Assistance Bathin - A Lot of Assistance Toiletin - Total Assistance Putting on/Taking Off Upper Body Clothin - A Little Assistance Groomin - A Little Assistance Eatin - No Assistance CURRENT [facility] Activity Raw Score: 14 CURRENT [facility] Activity Functional Limitation/Modifier: 59.67% Currently Impaired in Daily Activity - CK Interventions: Assessment & Plan: Pt tolerated OT session well overall this date. Pt progress towards OT goals is ongoing. Pt continues to be limited most by impaired cognition, pain, impaired activity tolerance, impaired balance, weakness, abdominal precautions, and fatigue during functional mobility and ADL performance. Pt will continue to benefit from skilled OT services to maximize independence and safety with ADLs/functional mobility and reduce burden of care at discharge. Patient Instruction/Education this session: Learners: Patient Education provided: Precautions/weight bearing status Teaching method: Verbal Education/Instruction Learner response: Needs review Learning preferences: Auditory Learning considerations: Cognition Plan for next session: Standing balance/activity tolerance, lower body ADLs (with use of AE PRN), fxl cog Acute OT Goals Plan of Care by Kamilah Diaz OT at 01/24/2024 9:04 AM Version 1 of 1 Problem: OT - Transfers Goal: Transfers Toilet/ Bedside Commode - Patient will transfer to/from toilet/bedside commode with standby assistance for improved ability to safely complete ADLs. Outcome: Ongoing Problem: OT - Cognition Goal: Cognition Simple ADL - Patient will demonstrate improved cognition, completing simple ADL task for 8-10 minutes with no greater than min cues required to maintain attention. Outcome: Ongoing OT treatment consisted of the following to work and progress towards the above goal(s): OT Evaluation and Treatment Time Self Care/Home Management (ADLs) Time Entry: 20 Therapeutic Activity Time Entry: 13 Treating Therapist: Kamilah Diaz OT Additional Details: OT Co-Eval/Treatment Information Co-evaluation/co-treatment performed?: No simultaneous skilled care performed PPE used during patient interaction: facemask, gloves Patient location at end of session: chair, RN aware Alarms on at end of session: chair alarm, RN aware (sitter outside door) Needs in reach. Time In: 903 Time Out: 936 Total Visit Time: 33 minutes Total Treatment Time (skilled, billable minutes): 33 minutes Upon discontinuation of Acute Care Occupational Therapy Services or patient discharge from the hospital this note represents the current Occupational Therapy Discharge Summary. Acute Care Surgery Progress Note S: No acute events overnight. Patient resting in bed this morning. Pain well controlled. Unable to ascertain if patient is passing flatus due to current mental status. O: BP 140/65 (BP Location: Left arm, BP Position: Lying) Pulse 80 Temp 98.1 F (36.7 C) (Oral) Resp 18 Ht 1.549 m (5' 1) Wt 66.2 kg (146 lb) SpO2 94% BMI 27.59 kg/m I/O last 3 completed shifts: In: 0 Out: 1460 [Urine:1175; Other:285] Physical Exam: Gen: lying in bed, NAD Lungs: no increased work of breathing Cardiac: regular rate and rhythm Abdomen: soft, non-distended, appropriately tender; midline incision c/d/I closed with paula; paola drain in RLQ with serosanguinous output (285) Labs: WBC/Hgb/Hct/Plts: 10.65/10.0/31.8/263 (01/23 318) Na/K+/Phos/Mg/Ca: 131/4.8/--/2.0/8.7 (01/23 318) Bun/Creat/Cl/CO2/Glucose: 23/1.24/97/23/117 (01/23 318-01/23 607) A/P: Kerrie Kearney is a 78 y.o. female with PMH cognitive impairment, hyperthyroidism, T2DM, HTN, and prior open cholecystectomy, appendectomy, ZE/BSO, and who presents with encephalopathy. POD1 s/p small bowel resection (Dr. Chester). - AROBF - Maintain drain to self-suction - Take down dressing - KUB - Pain control per primary team - ACS will continue to follow Josh Camacho MD Acute Care Surgery Pager #: [phone] 01/24/24 Associated attestation - Jacob Chester MD - 01/24/2024 10:40 AM EDT Acute Care Surgery Attending Attestation Kerrie Kearney was seen and examined with Josh Camacho MD on 01/24/24. I personally reviewed relevant laboratory results and studies, as well as preformed critical components of the physical exam. Discussed the plan of care with the resident physician. I agree with the history, physical exam, assessment, and plan of care. She is unsure if passing flatus or BMS. NG has been clamped since yesterday morning. AXR with remnant dilated loops, may have ileus though gastric bubble not present. Check NG residuals. If low, may pull and start sips of clears. Obtain daily AXR. Jacob Chester MD Acute Care Surgery Fellow Division of Trauma, Critical Care and Burn Department of Surgery [facility] Daily Progress Note Physician: Martin Kapadia III, MD, Attending Physician, 6 service Today's Date: 01/23/2024 Patient: Kerrie Kearney, : 1945, Admitted: 01/11/2024, Length of stay: 12 days IMPRESSION/PLAN: Krerie Kearney is a 78 y.o. female with a history of chronic cognitive impairment, hyperthyroidism, DMt2, and HTN who presented on 01/11/2024 as a transfer from [place] for further evaluation of encephalopathy and fevers with concern for meningitis. She completed a course of empiric antibiotics for meningitis but hospital course has been complicated by SBO. Small Bowel Obstruction: After complaining of some mild abd pain - followed by vomiting - KUB on 01/18 revealed an ileus vs SBO. Initially seemed to be an ileus as abd exam was fairly benign and she had a few small BMs. However, she later developed worsening feculent vomiting late on 01/[address] demonstrated concern for closed loop small bowel obstruction. -S/p Ex Lap on 01/21 with MERCEDES and SBR with resection of 20cm of necrotic bowel. -Surgery following. Appreciate their assistance -Leave NG in place for now - with plans to hook to suction if any recurrent nausea / vomiting. -Continue NPO for now until pt passing gas and / or moving bowels -Surgical drain in place. Continue to monitor output. Appreciate Surgery's assistance with management. Acute Metabolic Encephalopathy / Presumed Meningitis: Presented with acute confusion (in setting of chronic mild cognitive impairment), headaches, slurred speech, and difficulty ambulating. Febrile to 101.6F at OSH with MRI showing some diffuse restricted diffusion in the cerebral cortex bilaterally most pronounced in the parietal occipital regions - possibly due to inflammation. LP (after a few days of atbx) was largely unrevealing with 5 WBC (44% PMNs), 248 RBC, protein 88, glucose 143, negative culture, negative encephalitis panel, and negative paraneoplastic panel. Ultimately, exact etiology of presentation unclear - but clinically concerning for meningitis. -Evaluated by Neurology and ID. Completed 14 days of empiric antibiotics (Meropenem and Vanc) on 01/20/24 -Continue delirium precautions -Continue sitter for now given some ongoing impulsivity to prevent line removal HTN: Normotensive on admission. Home regimen: Coreg 25mg BID, Diltiazem 120mg, Lisinopril 20mg. -Continue Coreg. Reduce dose to 12.5mg BID (01/22) -Continue Diltiazem 120mg -Holding home Lisinopril for RICK RICK: Cr jumped to 1.6 on - from baseline ~0.9-1.1. Suspect related to elevated Vanc trough plus some effect from Lisinopril -Continue IVF -Appreciate Pharm help with Vanc adjustment -Continue to monitor Cr, renally dose meds, and avoid potentially nephrotoxic agents as able DMt2 with Hyperglycemia: Hyperglycemic in the 500s on presentation - with A1c 10.6%. Previously on Metformin and Glipizide at home. -Evaluated by Endocrinology and started on Insulin. Plan to continue at discharge. -Continue Lantus (reduced while NPO) and SSI for now (plan to switch to fixed dosing at discharge) -Appreciate DM educator and RN's assistance with teaching -Will need all insulin / glucometer supplies at discharge Hyperthyroidism: TSH and fT4 wnl at OSH. Continue home Methimazole. Thyroid Nodules: CTA at OSH revealed incidental 2.8cm L thyroid nodule. Subsequent US showed multinodular goiter with up to 2.3 cm left thyroid TI-RAD 3 lesion and 1.2cm right thyroid TI-RA 4 lesion. Follow up as outpatient for further management / repeat US in 1 year. Oropharyngeal Dysphagia: Has had some dysphagia in setting of encephalopathy but has subsequently been cleared for regular diet. Continue to monitor. Anxiety: Continue home Cymbalta Hyponatremia: 2/2 dehydration and hyperglycemia. Improved with hydration. Continue to monitor. Chronic Anemia: 2/2 chronic disease and phlebotomy. Otherwise, no overt blood loss noted. Continue to monitor FEN: DIET NPO with meds DVT Prophylaxis: SubQ Heparin Code status: Full Code Dispo: Continue inpatient management. Eventually discharge to SNF (she will not need pre-cert) INTERVAL HISTORY/SUBJECTIVE: Had surgery yesterday. It went well. Having some pain but not terrible. at bedside. Pt actually seemed more alert and with it today. No flatus or BMs yet. Discussed plans to remain NPO until showing return of bowel function. OBJECTIVE: Vitals: [range] current Temp: [97.2 F (36.2 C)-97.9 F (36.6 C)] 97.5 F (36.4 C) Pulse (Heart Rate): [60-74] 74 Resp Rate: [12-24] 18 BP: (103-137)/(53-71) 113/64 O2 Sat (%): [90 %-100 %] 98 % O2 Device: nasal cannula (01/23/24314) Flow (L/min): 2 (01/23/24314) Intake/Output last 3 shifts: I/O last 3 completed shifts: In: 1600 [I.V.:1500; IV Piggyback:100] Out: 2560 [Urine:715; Other:1645] Body mass index is 27.59 kg/m . Physical Exam: General: Alert. In no acute distress. Respiratory: Normal Respiratory effort. Lungs clear to auscultation bilaterally. Cardiovascular: Normal rate & regular rhythm. Normal S1 and S2. No murmurs, rubs, or gallops appreciated. Abdomen: Distended but soft. Mild tenderness around surgical incisions. Bowel sounds are hypoactive. Drain in place. Extremities: Warm and well perfused. No peripheral edema Neurological: Oriented to person and place. Not year. Clear memory deficits noted. No focal motor deficits appreciated. Skin: Ex Lap incisions. Some mild bruising on arms. CURRENT MEDICATIONS: Current Facility-Administered Medications Medication Dose Route Frequency Provider Last Rate Last Admin Acetaminophen (TYLENOL) oral solution 650 mg 650 mg Oral Q4H PRN Mick Alas MD 650 mg at 01/21/24 0532 Or Acetaminophen (TYLENOL) tablet 650 mg 650 mg Oral Q4H PRN Mick Alas MD Or Acetaminophen (TYLENOL) suppository 650 mg 650 mg Rectal Q4H PRN Mick Alas MD alum/mag hydrox.-simethicone oral suspension 30 mL 30 mL Oral Q6H PRN Martin Kapadia III, MD 30 mL at 01/18/24 1327 Atorvastatin (LIPITOR) tablet 10 mg 10 mg Oral QHS Martin Kapadia III, MD bisacodyl (DULCOLAX) suppository 10 mg 10 mg Rectal Daily PRN Martin Kapadia III, MD 10 mg at 01/20/24 1648 carveDILOL (COREG) tablet 6.25 mg 6.25 mg Oral BID Martin Kapadia III, MD Insulin regular (HUMULIN R;NOVOLIN R) injection Subcutaneous Q6H Martin Kapadia III, MD 2 Units at 01/22/24 1810 And Dextrose 50% injection 7.5-25 g 7.5-25 g Intravenous As directed PRN Martin Kapadia III, MD And glucose (GLUTOSE) 40 % oral gel 1-2 Tube 1-2 Tube Oral As directed PRN Martin Kapadia III, MD Diltiazem (CARDIZEM CD) capsule XL 120 mg 120 mg Oral Daily Martin Kapadia III, MD 120 mg at 01/22/24 0855 DULoxetine (CYMBALTA) capsule DR 30 mg 30 mg Oral Daily Sunitha Corley, DO 30 mg at 01/22/24 0855 Heparin injection 5,000 Units 5,000 Units Subcutaneous Q8H Martin Kapadia III, MD 5,000 Units at 01/21/24 2018 insulin glargine-yfgn (SEMGLEE) injection 4 Units 4 Units Subcutaneous QHS Titus Acevedo MD 4 Units at 01/22/24 2325 [Held by provider] Lisinopril (PRINIVIL) tablet 20 mg 20 mg Oral Daily Sunitha Corley, DO 20 mg at 01/16/24 0841 Magnesium sulfate 4 g in sterile water 50 ml premix IVPB 4 g Intravenous Once Titus Acevedo MD 12.5 mL/hr at 01/23/24 0501 4 g at 01/23/24 0501 Melatonin tablet 6 mg 6 mg Oral QHS PRN Terrence Augustine MD 6 mg at 01/16/242057 methimazole (TAPAZOLE) tablet 5 mg 5 mg Oral Once per day on Sunday Terrence Augustine MD 5 mg at 01/21/24 0859 Morphine (PF) injection 1 mg 1 mg Intravenous Q3H PRN Que Machado MD 1 mg at 01/22/241949 Ondansetron (ZOFRAN) tablet 4 mg 4 mg Oral Q6H PRN Mick Alas MD Or Ondansetron 4mg/2ml (ZOFRAN) injection 4 mg 4 mg Intravenous Q6H PRN Mick Alas MD 4 mg at 01/21/24 2253 Pantoprazole (PROTONIX) tablet DR 40 mg 40 mg Oral BID Martin Kapadia III, MD 40 mg at 01/22/24 0854 Polyethylene glycol (MIRALAX) packet 17 g 17 g Oral Daily Martin Kapadia III, MD 17 g at 01/21/24 0859 Potassium chloride 10 mEq in sterile water 100 ml premix IVPB 10 mEq Intravenous Once Titus Acevedo MD Followed by Potassium chloride 10 mEq in sterile water 100 ml premix IVPB 10 mEq Intravenous Once Titus Acevedo MD Prochlorperazine (COMPAZINE) injection 10 mg 10 mg Intravenous Q6H PRN Mick Alas MD Senna (SENOKOT) tablet 8.6 mg 8.6 mg Oral Q12H Martin Kapadia III, MD 8.6 mg at 01/22/24 0855 sodium chloride 0.45% 1,000 ml with potassium chloride 20 mEq premix IV solution Intravenous Continuous Martin Kapadia III, MD Sodium chloride 0.9% IV solution 250 mL 250 mL Intravenous PRN Terrence Augustine MD 20 mL/hr at 01/23/24 0513 250 mL at 01/23/24 0513 DATA REVIEW: CBC: Chem: Na/K+/Phos/Mg/Ca: 138/3.4/--/1.2/6.2 (01/22 311) Bun/Creat/Cl/CO2/Glucose: 20/0.95/111/20/119 (01/22 311-01/23 612) Coags: MRI Brain With and Without Contrast - 01/08/24 IMPRESSION: Mild atrophy and minor periventricular white matter ischemic changes Diffuse restricted diffusion in the cerebral cortex bilaterally most pronounced in the parietal occipital regions of indeterminate etiology possibly due to inflammatory disease or less likely anoxic event. There is no enhancement following contrast administration. Clinical correlation is recommended TTE - 01/08/24 Interpretation Summary The study was technically difficult. Mild concentric left ventricular hypertrophy. The left ventricular ejection fraction is 65 %. The left atrium is moderately enlarged. Severe mitral annular calcification. Mild mitral valve stenosis. Aortic sclerosis, no stenosis. Mildly dilated aortic root. Bubble contrast study is negative for PFO/ASD. CT Stroke - 01/08/24 IMPRESSION: Stable chronic ischemic and atrophic changes. No acute intracranial abnormality. All lab, imaging, and procedure results from the last 24 hours were personally reviewed. Signed, Martin Kapadia III, MD Acute Occupational Therapy Treatment Prior Gross Functional Mobility: used device Current AM-PAC score(s): CURRENT AM-PAC Activity Raw Score: 14 Based on the above AM-PAC score(s), and OT clinical judgment, discharge destination recommendation is: [facility] Facility *Pt may decline SNF placement. If pt discharges home, she would benefit from initial 24 hour care, use of AE/DME (noted below), and Home Health Services. Barriers to discharge home: Patient needs assistance with functional mobility, Patient needs assistance with ADLs, Patient needs assistance with IADLs (see note below), Patient needs assistance with medication management, Patient needs assistance with self-care for medical condition (see note below), Pain management concerns, Cognitive impairments that impact safety (see note below), Assistance needed to ensure precautions are maintained (see note below) Mobility equipment available at home: rollator, straight cane ADL equipment available at home: shower chair, grab bars Equipment recommendations for discharge: 2 wheeled walker, raised toilet seat, bathing equipment, dressing equipment, toileting equipment Current therapy frequency recommendation(s) in acute: 5 times a week Activity Recommendations for outside of rehab session: 1 person assist with 2 wheeled walker to side-step to bedside commode/chair. Precautions and Weightbearing Status: OT Existing Precautions/Restrictions: fall, abdominal, cardiac, supplemental oxygen (Sitter.) Urinary catheter, Telemetry (NG.) Patient Safety Communication Prior to Visit: Nursing Subjective: Pt reported, I'm having some pain when completing standing activities. Pain: General Pain Documentation (Adult, OB, Peds) Presence of Pain: reports pain/discomfort Pain Location: back, abdomen DVPRS (Defense and Veterans Pain Rating Scale) DVPRS: Rest: 6- moderate pain DVPRS: Activity: 8- severe pain Objective/Observation: Vitals/Vitals Responses to Treatment: No adverse reactions noted. O2 Device: nasal cannula Vision Screen Currently wearing corrective lenses: No Visual Impairments Observed?: No Speech Speech: no gross deficits noted Hearing Hearing: hard of hearing (Mild.) Cognition Overall Cognitive Status: Impaired Arousal/Alertness: Delayed responses to stimuli Orientation Level: Oriented to person, Oriented to place Following Commands: Follows one step commands with increased time, Follows one step commands with repetition Safety Judgment: Decreased awareness of need for assistance, Decreased awareness of need for safety Awareness of Errors: Assistance required to identify errors made, Assistance required to correct errors made Deficits: Decreased awareness of deficits Attention Span: Difficulty attending to directions, Difficulty dividing attention Memory: Decreased short term memory Problem Solving: Assistance required to identify errors made, Assistance required to generate solutions, Assistance required to implement solutions Cognition Comments: Delayed processing rate/motor planning; Mild-moderate pleasant confusion; Overall, decreased insight into deficits/safety awareness. Pt's spouse present and reporting pt appears close to baseline level of cognitive performance. ADL Assessment/Intervention: Grooming Assistance: (CGA-minimal assistance) Grooming Location: seated at sink, standing at sink Grooming Deficit: Wash/dry face, Oral care, Brushing hair, Initiation, Sequencing, Problem solving, Follows safety/precautions, Balance, Retrieval of items, Pain, Generalized weakness, Activity tolerance, Increased time to complete Grooming Skilled Rationale (Verbal/Tactile/Visual/Demonstrati on): Setup, Cues for increased safety, Technique of activity, Cues for cognitive deficit, Facilitate postural control, Facilitate positioning, Maintain precautions Grooming Intervention/Details: Pt set-up oral care task seated, requiring mildly increased time/effort to manipulate tools due to mild bilateral fine motor coordination/precision limitations. Standing, pt completed oral care task with CGA-minimal assistance x 1 for balance and overall sequencing (brushing, rinsing, and then spitting). Overall, increased cues/assistance to ensure maintain of upright versus kyphotic posture, anticipate pt increasingly limited by pain. Secondary to fatigue/pain, further washing of face/brushing hair completed seated with SBA. Extremity Assessments: See OT Evaluation flowsheet for Extremity Measurement updates. Balance: Sitting Balance Static Sitting-Level of Assistance: Standby Dynamic Sitting-Level of Assistance: Contact guard Sitting Balance Skilled Intervention/Details: Seated EOB for about 6 minutes, mostly requiring cues for safety. Standing Balance Static Standing-Level of Assistance: Contact guard, Minimum assistance Dynamic Standing-Level of Assistance: Minimum assistance Standing Balance Skilled Intervention/Details: Standing for about 3-4 minutes at a time (x several trials) while completing functional transfers/mobility and grooming at sink, mostly requiring cues for safety and with initial hip extension and assumption of upright versus kyphotic posture. Skin and Edema: Skin Integrity Skin Integrity Description: WFL (Visible areas.) Edema Edema: none noted Mobility Assessment/Intervention: Supine to Sit Mobility Clare Level: Supine->Sit: moderate assist (50% patient effort) Physical Assist: Supine->Sit: 2 person assist Bed Features/Set-up: Supine->Sit: Head of bed elevated, Use of bed rail Skilled Rationale: Cues for increased safety, Initiation and execution of task, Technique of activity, Full extension to upright positioning/posture, Facilitate anterior shift, Tactile cues, Verbal cues, Hand placement, Sequencing, Positioning Skilled Intervention/Details: Supine->Sit: Cues for initiation/sequencing/safety/use of log-roll technique, as well as assisting with upper trunk support, LEs, and aligning hips to midline. Increased time/effort for performance due to pain. Transfer Assessment/Intervention: Sit to Stand Transfer Clare Level: Sit->Stand: moderate assist (50% patient effort) (x 1 trial from EOB; x 2 trials from bedside chair.) Assistive Device: Sit->Stand: gait belt, 2 wheeled walker Skilled Rationale: Cues for increased safety, Initiation and execution of task, Technique of activity, Upright gaze/neck extension, Full extension to upright positioning/posture, Facilitate anterior shift, Ischial assist, Arm in arm, Tactile cues, Verbal cues, Hand placement Skilled Intervention/Details: Sit->Stand: Cues for initiation/sequencing/safety/hand placement on walker (minimal carryover between trials), as well as assisting with initial hip extension and assumption of upright versus kyphotic posture. Increased time/effort to assume full upright posture due to pain. Stand to Sit Transfer Clare Level: Stand->Sit: minimum assist (75% patient effort) Assistive Device: Stand->Sit: gait belt, 2 wheeled walker Skilled Rationale: Cues for increased safety, Initiation and execution of task, Technique of activity, Controlled descent for sitting, Ischial assist, Arm in arm, Tactile cues, Verbal cues, Hand placement Bed-Chair Transfer Clare Level: Bed<->Chair: minimum assist (75% patient effort) (EOB>Bedside chair.) Assistive Device: Bed<->Chair: gait belt, 2 wheeled walker Skilled Rationale: Cues for increased safety, Initiation and execution of task, Technique of activity, Upright gaze/neck extension, Controlled descent for sitting, Full extension to upright positioning/posture, Facilitate anterior shift, Arm in arm, Ischial assist, Tactile cues, Verbal cues, Hand placement, Sequencing, Positioning Skilled Intervention/Details: Bed<->Chair: Cues for inititaion/sequencing/safety/walke r management, as well as assisting with maintenance of upright versus kyphotic/flexed posture. Functional Mobility: Functional Mobility Clare Level: Functional Mobility/Gait: minimum assist (75% patient effort) Physical Assist: Functional Mobility/Gait: chair follow Assistive Device: Functional Mobility/Gait: 2 wheeled walker, gait belt (Non-skid socks.) Functional Mobility Distance: (Few feet from bedside chair to sink within room.) Skilled Intervention/Details - Functional Mobility/Gait: No LOB/SOB experienced; Mild unsteadiness with pt mobilizing at a significant decreased rate and with cues to achieve/maintain upright posture (anticipate flexed/kyphotic secondary to pain). Mild cues/assistance also required for walker management. Outcome Score(s): CURRENT [facility] Daily Activity Inpatient Short Form Putting on/Taking Off Lower Body Clothin - Total Assistance Bathin - A Lot of Assistance Toiletin - Total Assistance Putting on/Taking Off Upper Body Clothin - A Little Assistance Groomin - A Little Assistance Eatin - No Assistance CURRENT [facility] Activity Raw Score: 14 CURRENT [facility] Activity Functional Limitation/Modifier: 59.67% Currently Impaired in Daily Activity - CK Interventions: Intervention 1 Intervention Name: Therapist provided pt with education on abdominal precautions with pt verbalizing understanding and requiring mild-moderate cues for adherence throughout session. Assessment & Plan: Pt is demonstrating Fair progress in occupational therapy goals this date, primarily in static seated balance, dynamic seated balance, left UE ROM, right UE ROM, vision, speech, and alertness. However, pt's barriers to discharge and overall inhibitors in ADL/IADL/functional transfer performance/independence include pt's deficits in endurance/activity tolerance, bed mobility, static standing balance, dynamic standing balance, functional transfers, functional mobility, left UE strength, right UE strength, left UE coordination, right UE coordination, and cognition. Pt would benefit from continued acute occupational therapy services prior to discharge to address noted deficits and progress towards achieving increased independence in occupational performance. Patient Instruction/Education this session: Learners: Patient, Spouse Education provided: Balance training, Bed mobility, Discharge recommendations, Plan of care, Positioning, Role of this discipline, Safety, Activity outside of therapy, Fall precautions, Functional transfers, Gait training safety, Pain management Plan for next session: Therapist to address further dynamic standing balance/activity tolerance, lower body ADL performance (with use of AE, as needed), and overall cognitive functioning. Acute OT Goals Plan of Care by Fanny Fregoso OT at 01/23/2024 11:49 AM Version 1 of 1 Problem: OT - ADLs Goal: Lower Body Dressing - Patient will complete lower body dressing tasks with standby assistance using adaptive equipment/compensatory strategies as needed for improved ability to complete self-care activities. Outcome: Ongoing Goal: Bathing - Patient will perform full body bathing routine with standby assistance while seated for improved ability to complete self-care activities Outcome: Ongoing Problem: OT - Transfers Goal: Transfers Toilet/ Bedside Commode - Patient will transfer to/from toilet/bedside commode with standby assistance for improved ability to safely complete ADLs. Outcome: Ongoing Problem: OT - Strength/ROM Goal: Strength/ROM ADL Participation - Patient will participate in UE exercise program with independence to prevent deconditioning while in hospital and to max UE ROM/Coordination/strength for ADLs. Outcome: Ongoing Problem: OT - Endurance Goal: Endurance Functional Mobility - Patient will complete distance needed for common household mobility with no greater than 0 rest breaks for improved tolerance to safely complete I/ADL's Outcome: Progressing Problem: OT - Cognition Goal: Cognition Simple ADL - Patient will demonstrate improved cognition, completing simple ADL task for 8-10 minutes with no greater than min cues required to maintain attention. Outcome: Progressing OT treatment consisted of the following to work and progress towards the above goal(s): OT Evaluation and Treatment Time Self Care/Home Management (ADLs) Time Entry: 15 Therapeutic Activity Time Entry: 14 Treating Therapist: Fanny Fregoso OT Additional Details: OT Co-Eval/Treatment Information Co-evaluation/co-treatment performed?: Yes, simultaneous billable skilled care was necessary due to medical complexity and functional deficits Other discipline: PT Rationale for need to co-eval/treat: cognitive issues, coordination issues, postural control Co-treatment goal focus: balance, mobility, transfer, endurance, coordination, self-care, cognition, strength PPE used during patient interaction: facemask, gloves Patient location at end of session: chair Alarms on at end of session: RN aware, Other (Sitter present.) Needs in reach. Time In: 1148 Time Out: 1217 Total Visit Time: 29 minutes Total Treatment Time (skilled, billable minutes): 29 minutes Upon discontinuation of Acute Care Occupational Therapy Services or patient discharge from the hospital this note represents the current Occupational Therapy Discharge Summary. Acute Physical Therapy Treatment Prior Gross Functional Mobility: used device Current AM-PAC score(s): CURRENT AM-PAC Mobility Raw Score: 11 Based on the above AM-PAC score(s) and PT clinical judgment, patient is a good candidate for discharge to [facility] Facility Barriers to discharge home: Patient needs assistance with functional mobility Mobility equipment available at home: rollator, straight cane ADL equipment available at home: shower chair, grab bars Equipment needed for discharge: to be determined Current therapy frequency recommendation in acute: Therapy Frequency: 5 times a week Activity Recommendations for outside of rehab session: 01/22: x1 person assist, 2 wheeled walker with gait belt pivot transfer to chair (2nd person for line management) Precautions and Weightbearing Status: Existing Precautions/Restrictions: abdominal, fall Urinary catheter, Telemetry (NG.) Patient Safety Communication Prior to Visit: Nursing Subjective: Pain: General Pain Documentation (Adult, OB, Peds) Presence of Pain: reports pain/discomfort Pain Location: back, abdomen DVPRS (Defense and Veterans Pain Rating Scale) DVPRS: Rest: 6- moderate pain DVPRS: Activity: 8- severe pain Objective/Observation: Vitals/Vitals Responses to Treatment: no adverse response with HR and SPO2 WFL throughout, denying LH Cognition Overall Cognitive Status: Impaired Arousal/Alertness: Delayed responses to stimuli Orientation Level: Oriented to person, Oriented to place (Is it the 1899s? Per team not oriented to date at baseline) Following Commands: Follows one step commands with increased time, Follows one step commands with repetition Safety Judgment: Decreased awareness of need for assistance, Decreased awareness of need for safety Awareness of Errors: Assistance required to identify errors made Deficits: Decreased awareness of deficits Attention Span: Difficulty attending to directions Memory: Decreased short term memory, Decreased recall of precautions Problem Solving: Assistance required to identify errors made Cognition Comments: ongoing decreased insight/ awareness/ recall with repeat assist for abdominal precautions and hand placement with delayed initiation and motor planning further limited by post surgical pain Extremity Assessments: See PT Evaluation flowsheet for Extremity Measurement updates. Skin and Edema: Balance: Sitting Balance Static Sitting-Level of Assistance: Standby Dynamic Sitting-Level of Assistance: Contact guard Sitting Balance Skilled Intervention/Details: ~6 min cues for posterior tripod/ decreased pain. Dependent assist for anterior scoot/ feet to floor to reduce pain response Standing Balance Static Standing-Level of Assistance: Contact guard, Minimum assistance Dynamic Standing-Level of Assistance: Minimum assistance Standing Balance Skilled Intervention/Details: Stands 3 trials up to 3 min with increased flexion, chair posterior to perform oral hygiene with safety cues and attempted increase in upright but limited by pain Mobility Assessment/Intervention: Supine to Sit Mobility Clare Level: Supine->Sit: moderate assist (50% patient effort) Physical Assist: Supine->Sit: 2 person assist Bed Features/Set-up: Supine->Sit: Head of bed elevated, Use of bed rail Skilled Intervention/Details: Supine->Sit: Logroll to L for abdominal with step by step sequencing for safety/ participation Transfer Assessment/Intervention: Sit to Stand Transfer Clare Level: Sit->Stand: moderate assist (50% patient effort) Physical Assist: Sit->Stand: 1 person + 1 person to manage equipment Assistive Device: Sit->Stand: gait belt, 2 wheeled walker Skilled Intervention/Details: Sit->Stand: EOB x1, recliner x2. Cues for hand, initiation, and assisted anterior wt shift with decreased upright Stand to Sit Transfer Clare Level: Stand->Sit: moderate assist (50% patient effort) Physical Assist: Stand->Sit: 1 person + 1 person to manage equipment Assistive Device: Stand->Sit: gait belt, 2 wheeled walker Skilled Rationale: Hand placement, Maintain precautions, Cues for increased safety Bed-Chair Transfer Clare Level: Bed<->Chair: minimum assist (75% patient effort) Physical Assist: Bed<->Chair: 1 person + 1 person to manage equipment Assistive Device: Bed<->Chair: gait belt, 2 wheeled walker Skilled Rationale: Cues for increased safety Skilled Intervention/Details: Bed<->Chair: EOB to chair R with steps fwd and chair brought to her Gait/Functional Mobility Assessment/Intervention: Gait Assessment Clare Level: Gait: (min to mod assist) Physical Assist: Gait: 1 person + 1 person to manage equipment, chair follow Assistive Device: Gait: gait belt, 2 wheeled walker Ambulation Distance (Feet): 4 (x2) Gait Deviations Identified: antalgic, decreased chris, decreased heel strike, decreased stride length, flexed posture Gait Skilled Rationale: verbal Skilled Intervention/Details - Gait: assisted proximity to 2WW, cues for increased stance width with decreased tolerance to upright/ progression returning to sitting 2/2 pain Stairs Assessment/Intervention: Outcome Score(s): CURRENT [facility] Basic Mobility Inpatient Short Form Turning over in bed: 2 - A Lot of Assistance Moving from lying on back to sittin - A Lot of Assistance Moving to and from bed to chair: 2 - A Lot of Assistance Sitting/standing from chair: 2 - A Lot of Assistance Walk in hospital room: 2 - A Lot of Assistance Climbing 3-5 steps with a railin - Total Assistance CURRENT [facility] Mobility Raw Score: 11 CURRENT [facility] Mobility Functional Limitation: 72.57% Impaired in Basic Mobility Interventions: Assessment & Plan: Pt limited by increased pain s/p small bowel resection yesterday with increased bed mobility and transfer assist needs and decreased gait distance with precaution education and adherence assist. She is also limited by cognition / decreased recall with delayed motor planning and decreased carryover Patient Instruction/Education this session: Learners: Patient, Spouse Education provided: Precautions/weight bearing status, Safety, Functional transfers, Gait training safety Teaching method: Verbal Education/Instruction Learner response: Returns demonstration, Needs review Learning preferences: Auditory Learning considerations: Cognition Plan for next session: progress OOB mobility Acute PT Goals Plan of Care by Annie Bush, PT at 01/23/2024 11:46 AM Version 1 of 1 Problem: PT - General Goals Goal: Supine <-> Sit Transfers - Patient will perform supine to/from sit transfers with standby assistance and without use of hospital bed features in order to improve functional mobility and safety. Outcome: Ongoing Goal: Sit <-> Stand Transfers - Patient will perform sit to/from stand transfers with standby assistance and wheeled walker in order to improve functional mobility and safety. Outcome: Ongoing Goal: Ambulation - Patient will ambulate 100 feet with standby assistance and wheeled walker to improve ability to safely navigate home and community. Outcome: Ongoing PT treatment consisted of the following to progress towards the above goal(s): PT Evaluation and Treatment Time Therapeutic Activity Time Entry: 21 Neuromuscular Re-Education Time Entry: 10 Treating Therapist: Annie Bush PT Additional Details: PT Co-Eval/Treatment Information Co-evaluation/co-treatment performed?: Yes, simultaneous billable skilled care was necessary due to medical complexity and functional deficits Other discipline: OT Rationale for need to co-eval/treat: cognitive issues, postural control Co-treatment goal focus: mobility PPE used during patient interaction: gloves Patient location at end of session: chair Alarms on at end of session: (PACKAGE LINER present for care setup following tx) Needs in reach. Time In: 1146 Time Out: 1217 Total Visit Time: 31 minutes Total Treatment Time (skilled, billable minutes): 31 minutes Upon discontinuation of Acute Care Physical Therapy Services or patient discharge from the hospital this note represents the current Physical Therapy Discharge Summary. Acute Care Surgery Progress Note S: No acute events overnight. Patient resting in bed this morning. Pain well controlled. Communicative. O: BP 110/61 (BP Location: Left arm, BP Position: Lying) Pulse 77 Temp 97.7 F (36.5 C) (Oral) Resp 17 Ht 1.549 m (5' 1) Wt 66.2 kg (146 lb) SpO2 97% BMI 27.59 kg/m I/O last 3 completed shifts: In: 1600 [I.V.:1500; IV Piggyback:100] Out: 2560 [Urine:715; Other:1645] Physical Exam: Gen: lying in bed, NAD Lungs: no increased work of breathing Cardiac: regular rate and rhythm Abdomen: soft, non-distended, appropriately tender; midline incision c/d/I; paola drain in RLQ with serosanguinous output Labs: Na/K+/Phos/Mg/Ca: 138/3.4/--/1.2/6.2 (01/22 311) Bun/Creat/Cl/CO2/Glucose: 20/0.95/111/20/119 (01/22 311-01/23 612) A/P: Kerrie Kearney is a 78 y.o. female with PMH cognitive impairment, hyperthyroidism, T2DM, HTN, and prior open cholecystectomy, appendectomy, ZE/BSO, and who presents with encephalopathy. POD1 s/p small bowel resection (Dr. Chester). - AROBF - Maintain drain to self-suction - Pain control per primary team - Replete electrolytes - ACS will follow Josh Camacho MD Acute Care Surgery 01/23/24 Associated attestation - Jacob Chester MD - 01/23/2024 11:46 AM EDT Acute Care Surgery Attending Attestation Kerrie Kearney was seen and examined with Josh Camacho MD on 01/23/24. I personally reviewed relevant laboratory results and studies, as well as preformed critical components of the physical exam. Discussed the plan of care with the resident physician. I agree with the history, physical exam, assessment, and plan of care. Minor incisional pain. NG output around 1L. Unsure if passing gas. PAOLA with serosanguineous output, about 350 cc. Keep for now. Jacob Chester MD Acute Care Surgery Fellow Division of Trauma, Critical Care and Burn Department of Surgery Acute Care Surgery Progress Note/Postoperative Check SUBJECTIVE: Patient seen postoperatively. Reports no pain. NG in place and to LIWS. OBJECTIVE: Temp Av.7 F (36.5 C) Min: 97.2 F (36.2 C) Max: 99.1 F (37.3 C)Systolic (24hrs), Av , Min:103 , Max:167 Diastolic (24hrs), Av, Min:53, Max:75 Pulse Av.4 Min: 60 Max: 74 O2 Sat (%): 98 % (01/21 2309) O2 Device: nasal cannula (01/21 2309) Flow (L/min): 2 (01/21 2309) I/O last 3 completed shifts: In: 1600 [I.V.:1500; IV Piggyback:100] Out: 2980 [Urine:590; Other:2190] Physical Exam: GEN: Resting comfortably, in no acute distress. CARD: Regular rate, extremities are warm and well perfused. RESP: No respiratory distress on room air. ABD: Soft, appropriately tender, non-distended. NG in place with minimal output. Drain serosanguinous. EXT: No peripheral edema. SKIN: Warm, dry, and intact. Labs: WBC/Hgb/Hct/Plts: 8.11/10.3/32.9/256 (01/21 358) Na/K+/Phos/Mg/Ca: 133/3.8/--/1.8/9.4 (01/21 358) Bun/Creat/Cl/CO2/Glucose: 24/1.17/95/26/135 (01/21 358-01/21 2307) Ptt/Pt/Inr: --/13.3/1.0 (01/21 619) ASSESSMENT & PLAN: Kerrie Kearney is a 78 y.o. female with PMH cognitive impairment, hyperthyroidism, T2DM, HTN, and prior open cholecystectomy, appendectomy, ZE/BSO, and who presents with encephalopathy. Imaging shows concern for a closed loop bowel obstruction. She is now s/p ex lap and SBR for ischemic closed loop obstruction. - NPO, NG to LIWS (discussed with bedside RN), mIVF - OK to give PO meds with clamping of NG - Would utilize multimodal pain control as able (tylenol, ibuprofen, gabapentin) prior to opioids - Await return of bowel function - OK for DVT prophylaxis - Do not allow PO including ice chips while patient has NG in given mental status - Maintain drain to self-suction Plan discussed with acute care surgery attending. Opal Whaley MD PGY-3 Department of Surgery [phone] [facility] Medicine Daily Progress Note Physician: Martin Kapadia III, MD, Attending Physician, GM6 service Today's Date: 01/22/2024 Patient: Kerrie Kearney, : 1945, Admitted: 01/11/2024, Length of stay: 11 days IMPRESSION/PLAN: Kerrie Kearney is a 78 y.o. female with a history of chronic cognitive impairment, hyperthyroidism, DMt2, and HTN who presented on 01/11/2024 as a transfer from [place] for further evaluation of encephalopathy and fevers with concerns for meningitis. Hospital course has been prolonged by Ileus SBO: Pt complained of abd pain on 01/17 - followed by some vomiting that evening with KUB on 01/18 revealing an ileus vs SBO. Initially seemed like it was an ileus as she had a couple small BMs but after developing worsening feculent vomiting late on 01/20, CT was obtained and demonstrated concern for closed loop small bowel obstruction. -Surgery planning to take to OR today (01/21) -Continue NG to suction -Continue NPO for now Acute Metabolic Encephalopathy / Presumed Meningitis: Presented with acute confusion (in setting of chronic mild cognitive impairment), headaches, and difficulty ambulating. Febrile to 101F at OSH with imaging. Head CT negative for acute pathology. MRI showed some diffuse restricted diffusion in the cerebral cortex bilaterally most pronounced in the parietal occipital regions - possibly due to inflammation. LP (after a few days of atbx) was largely unrevealing with 5 WBC (44% PMNs), 248 RBC, protein 88, glucose 143, negative culture, negative encephalitis panel, and negative paraneoplastic panel. Ultimately, exact etiology of presentation unclear - but clinically difficult to concerning for meningitis. -Evaluated by Neurology and ID. Completed 14 days of empiric antibiotics (Meropenem and Vanc) on 01/20/24 -Continue delirium precautions -Continue sitter for now given some ongoing impulsivity. HTN: Normotensive on admission. Home regimen: Coreg 25mg BID, Diltiazem 120mg, Lisinopril 20mg. -Continue home Coreg, Diltiazem -Holding home Lisinopril for RICK RICK: Cr jumped to 1.6 on m - from baseline ~0.9-1.1. Suspect related to elevated Vanc trough plus some effect from Lisinopril -Continue IVF -Appreciate Pharm help with Vanc adjustment -Continue to monitor Cr, renally dose meds, and avoid potentially nephrotoxic agents as able DMt2 with Hyperglycemia: Hyperglycemic in the 500s on presentation - with A1c 10.6%. Previously on Metformin and Glipizide at home. -Evaluated by Endocrinology and started on Insulin. Plan to continue at discharge. -Continue Lantus and SSI for now (plan to switch to fixed dosing at discharge) -Appreciate DM educator and RN's assistance with teaching -Will need all insulin / glucometer supplies at discharge Hyperthyroidism: TSH and fT4 wnl at OSH. Continue home Methimazole. Thyroid Nodules: CTA at OSH revealed incidental 2.8cm L thyroid nodule. Subsequent US showed multinodular goiter with up to 2.3 cm left thyroid TI-RAD 3 lesion and 1.2cm right thyroid TI-RA 4 lesion. Follow up as outpatient for further management / repeat US in 1 year. Oropharyngeal Dysphagia: Has had some dysphagia in setting of encephalopathy but has subsequently been cleared for regular diet. Continue to monitor. Anxiety: Continue home Cymbalta Hyponatremia: 2/2 dehydration and hyperglycemia. Improved with hydration. Continue to monitor. Chronic Anemia: 2/2 chronic disease and phlebotomy. Otherwise, no overt blood loss noted. Continue to monitor FEN: DIET NPO with meds DVT Prophylaxis: SubQ Heparin Code status: Full Code Dispo: Continue inpatient management. Eventually discharge to SNF INTERVAL HISTORY/SUBJECTIVE: Had worsening vomiting last night, ultimately turning feculent. CT was obtained and was concerning for closed loop obstruction. Surgery was consulted. at bedside on my exam. Pt oriented to person and place but extremely forgetful and doesn't remember anything from last night... talked about plans for surgery. OBJECTIVE: Vitals: [range] current Temp: [98 F (36.7 C)-98.7 F (37.1 C)] 98 F (36.7 C) Pulse (Heart Rate): [65-71] 70 Resp Rate: [14-16] 16 BP: (161-168)/(75-81) 167/75 O2 Sat (%): [92 %-96 %] 96 % O2 Device: room air (01/22/24 0336) Flow (L/min): 0 (01/17/24 0742) Intake/Output last 3 shifts: I/O last 3 completed shifts: In: 1881 [I.V.:1881] Out: 700 [Other:700] Body mass index is 27.59 kg/m . Physical Exam: General: Alert. In no acute distress. Respiratory: Normal Respiratory effort. Lungs clear to auscultation bilaterally. Cardiovascular: Normal rate & regular rhythm. Normal S1 and S2. No murmurs, rubs, or gallops appreciated. Abdomen: Distended but soft and generally non-tender. Bowel sounds are hypoactive Extremities: Warm and well perfused. No peripheral edema Neurological: Oriented to person and place. Not year. Clear memory deficits noted. No focal motor deficits appreciated. Skin: No acute rashes or excoriations noted on exposed skin. CURRENT MEDICATIONS: Current Facility-Administered Medications Medication Dose Route Frequency Provider Last Rate Last Admin Acetaminophen (TYLENOL) oral solution 650 mg 650 mg Oral Q4H PRN Mick Alas MD 650 mg at 01/21/24 0532 Or Acetaminophen (TYLENOL) tablet 650 mg 650 mg Oral Q4H PRN Mick Alas MD Or Acetaminophen (TYLENOL) suppository 650 mg 650 mg Rectal Q4H PRN Mick Alas MD alum/mag hydrox.-simethicone oral suspension 30 mL 30 mL Oral Q6H PRN Martin Kapadia III, MD 30 mL at 01/18/24 1327 Atorvastatin (LIPITOR) tablet 10 mg 10 mg Oral QHS , DO 10 mg at 01/21/242017 bisacodyl (DULCOLAX) suppository 10 mg 10 mg Rectal Daily PRN Martin Kapadia III, MD 10 mg at 01/20/24 1648 carveDILOL (COREG) tablet 25 mg 25 mg Oral BID , DO 25 mg at 01/21/24 1718 Insulin regular (HUMULIN R;NOVOLIN R) injection Subcutaneous Q6H Martin Kapadia III, MD 2 Units at 01/22/24 0004 And Dextrose 50% injection 7.5-25 g 7.5-25 g Intravenous As directed PRN Martin Kapadia III, MD And glucose (GLUTOSE) 40 % oral gel 1-2 Tube 1-2 Tube Oral As directed PRN Martin Kapadia III, MD Diltiazem (CARDIZEM CD) capsule XL 120 mg 120 mg Oral Daily , DO 120 mg at 01/21/24 0859 DULoxetine (CYMBALTA) capsule DR 30 mg 30 mg Oral Daily , DO 30 mg at 01/21/24 0859 [Held by provider] Heparin injection 5,000 Units 5,000 Units Subcutaneous Q8H Martin Kapadia III, MD 5,000 Units at 01/21/242017 insulin glargine-yfgn (SEMGLEE) injection 4 Units 4 Units Subcutaneous QHS Titus Acevedo MD 4 Units at 01/22/24 0004 Lactated ringers IV solution Intravenous Continuous Martin Kapadia III, MD 100 mL/hr at 01/21/242105 New Bag at 01/21/242105 [Held by provider] Lisinopril (PRINIVIL) tablet 20 mg 20 mg Oral Daily Sunitha Corley, DO 20 mg at 01/16/24 0841 Melatonin tablet 6 mg 6 mg Oral QHS PRN Terrence Augustine MD 6 mg at 01/16/242057 methimazole (TAPAZOLE) tablet 5 mg 5 mg Oral Once per day on Sunday Terrence Augustine MD 5 mg at 01/21/2459 Ondansetron (ZOFRAN) tablet 4 mg 4 mg Oral Q6H PRN Mick Alas MD Or Ondansetron 4mg/2ml (ZOFRAN) injection 4 mg 4 mg Intravenous Q6H PRN Mick Alas MD 4 mg at 01/21/24 225 Pantoprazole (PROTONIX) tablet DR 40 mg 40 mg Oral BID Martin Kapadia III, MD 40 mg at 01/21/24 1718 Polyethylene glycol (MIRALAX) packet 17 g 17 g Oral Daily Martin Kapadia III, MD 17 g at 01/21/24 0859 Prochlorperazine (COMPAZINE) injection 10 mg 10 mg Intravenous Q6H PRN Mick Alas MD Senna (SENOKOT) tablet 8.6 mg 8.6 mg Oral Q12H Martin Kapadia III, MD 8.6 mg at 01/21/242017 simethicone (MYLICON) chewable tablet 80 mg 80 mg Oral 4x daily Martin Kapadia III, MD 80 mg at 01/21/24 225 Sodium chloride 0.9% IV solution 250 mL 250 mL Intravenous PRN Terrence Augustine MD Stopped at 01/20/24 1740 DATA REVIEW: CBC: WBC/Hgb/Hct/Plts: 8.11/10.3/32.9/256 (01/21 358) Chem: Na/K+/Phos/Mg/Ca: 133/3.8/--/1.8/9.4 (01/21 358) Bun/Creat/Cl/CO2/Glucose: 24/1.17/95/26/149 (01/21 358-01/22 556) Coags: All lab, imaging, and procedure results from the last 24 hours were personally reviewed. Signed, Martin Kapadia III, MD Occupational Therapy Attempt Note 01/22/2024 OT Therapy Completed: Attempted Attempted Reason: Patient is unavailable due to test/procedure (Pt off floor at OR.) Fanny Fregoso OT Time In: 1246 Time Out: 1246 Total Visit Time: 0 minutes Total Treatment Time (skilled, billable minutes): 0 minutes Physical Therapy Attempt Note 01/22/2024 PT Therapy Completed: Attempted Attempted Reason: Patient is unavailable due to test/procedure Bernardo Molina PT Time In: 1241 Time Out: 1241 Total Visit Time: 0 minutes Total Treatment Time (skilled, billable minutes): 0 minutes 01/22/24 1219 Outlier Review Reviewing for: Outlier Meeting Medical Necessity: Yes Medical Necessity Summary: surgery for new SBO, Acute Metabolic Encephalopathy w/ sitter, diabetes with new insulin requirements Barriers: Medical Complications;Standard Treatment/Therapy Barrier(s) Comments: starting intervention for SBO, eventual plan for SNF Intervention: No intervention needed Escalated to: None Required OPAL Escobar, PRECISION ASSEMBLER Court Attendant, [facility] Medicine Daily Progress Note Physician: Martin Kapadia III, MD, Attending Physician, GM6 service Today's Date: 01/21/2024 Patient: Kerrie Kearney, : 1945, Admitted: 01/11/2024, Length of stay: 10 days IMPRESSION/PLAN: Kerrie Kearney is a 78 y.o. female with a history of chronic cognitive impairment, hyperthyroidism, DMt2, and HTN who presented on 01/11/2024 as a transfer from [place] for further evaluation of encephalopathy and fevers with concerns for meningitis. Hospital course has been prolonged by Ileus Abdominal Pain / Ileus: C/o abdominal pain 01/17 am - followed by vomiting later in the evening. KUB demonstrated evidence of Ileus vs SBO. She's had a few BMs since then - suggesting against SBO (though they've all been relatively small...). Etiology is unclear at this point - decreased mobility is likely contributing. -Had worsening nausea / vomiting on 8 am. NG was placed with production of a few 100ccs of bilious followed by almost feculent appearing fluids. Planned to leave NG to [facility] but she ended up pulling out her tube within an hour or so.... as her symptoms were not uncontrolled at that point, opted to leave NG out. -Continue scheduled Senna and Miralax. Gave enema 01/20 but no success -Start scheduled Simethicone -Keep NPO for now. Continue mIVF -Continue to move / get out of bed as much as possible. Appreciate RN's assistance with this -If recurrent vomiting over night, will replace NG. -Will repeat KUB on 01/21. Will consider CT if still having significant issues Acute Metabolic Encephalopathy / Presumed Meningitis: Presented with acute confusion (in setting of chronic mild cognitive impairment), headaches, and difficulty ambulating. Febrile to 101F at OSH with imaging. Head CT negative for acute pathology. MRI showed some diffuse restricted diffusion in the cerebral cortex bilaterally most pronounced in the parietal occipital regions - possibly due to inflammation. LP (after a few days of atbx) was largely unrevealing with 5 WBC (44% PMNs), 248 RBC, protein 88, glucose 143, negative culture, negative encephalitis panel, and negative paraneoplastic panel. Ultimately, exact etiology of presentation unclear - but clinically difficult to concerning for meningitis. -Evaluated by Neurology and ID. Completed 14 days of empiric antibiotics (Meropenem and Vanc) on 01/20/24 -Continue delirium precautions -Continue sitter for now given some ongoing impulsivity. Anticipate can remove soon. HTN: Normotensive on admission. Home regimen: Coreg 25mg BID, Diltiazem 120mg, Lisinopril 20mg. -Continue home Coreg, Diltiazem -Holding home Lisinopril for RICK RICK: Cr jumped to 1.6 on 74am - from baseline ~0.9-1.1. Suspect related to elevated Vanc trough plus some effect from Lisinopril -Continue IVF -Appreciate Pharm help with Vanc adjustment -Continue to monitor Cr, renally dose meds, and avoid potentially nephrotoxic agents as able DMt2 with Hyperglycemia: Hyperglycemic in the 500s on presentation - with A1c 10.6%. Previously on Metformin and Glipizide at home. -Evaluated by Endocrinology and started on Insulin. Plan to continue at discharge. -Continue Lantus and SSI for now (plan to switch to fixed dosing at discharge) -Appreciate DM educator and RN's assistance with teaching -Will need all insulin / glucometer supplies at discharge Hyperthyroidism: TSH and fT4 wnl at OSH. Continue home Methimazole. Thyroid Nodules: CTA at OSH revealed incidental 2.8cm L thyroid nodule. Subsequent US showed multinodular goiter with up to 2.3 cm left thyroid TI-RAD 3 lesion and 1.2cm right thyroid TI-RA 4 lesion. Follow up as outpatient for further management / repeat US in 1 year. Oropharyngeal Dysphagia: Has had some dysphagia in setting of encephalopathy but has subsequently been cleared for regular diet. Continue to monitor. Anxiety: Continue home Cymbalta Hyponatremia: 2/2 dehydration and hyperglycemia. Improved with hydration. Continue to monitor. Chronic Anemia: 2/2 chronic disease and phlebotomy. Otherwise, no overt blood loss noted. Continue to monitor FEN: DIET NPO with meds DVT Prophylaxis: SubQ Heparin Code status: Full Code Dispo: Continue inpatient management. Eventually discharge to SNF INTERVAL HISTORY/SUBJECTIVE: Had small BM last night around 1999. Around 530 am started having worsening abdominal discomfort and nausea then vomiting this am. NG was placed with production of green bile - followed by more feculent appearance.... KUB with ongoing ileus. She pulled the NG out on her own like an hour or so later. When I saw her, she was oriented to person and place - not year. She could not remember the issues she had over night.... she reported a little nausea but denied significant pain. No dyspnea. Burping a fair amount. Doesn't really feel like needs to move her bowels. at bedside. Discussed plan OBJECTIVE: Vitals: [range] current Temp: [97.4 F (36.3 C)-98.7 F (37.1 C)] 98.1 F (36.7 C) Pulse (Heart Rate): [62-70] 68 Resp Rate: [16-19] 16 BP: (133-146)/(61-67) 138/66 O2 Sat (%): [91 %-98 %] 92 % O2 Device: room air (01/21/24 0337) Flow (L/min): 0 (01/17/24 0742) Intake/Output last 3 shifts: I/O last 3 completed shifts: In: 1324.4 [P.O.:479; I.V.:633.9; IV Piggyback:211.5] Out: - Body mass index is 27.59 kg/m . Physical Exam: General: Alert. In no acute distress. Respiratory: Normal Respiratory effort. Lungs clear to auscultation bilaterally. Cardiovascular: Normal rate & regular rhythm. Normal S1 and S2. No murmurs, rubs, or gallops appreciated. Abdomen: A little distended but soft and generally non-tender. Bowel sounds are hypoactive Extremities: Warm and well perfused. No peripheral edema Neurological: Oriented to person and place. Not year. Clear memory deficits noted. No focal motor deficits appreciated. Skin: No acute rashes or excoriations noted on exposed skin. CURRENT MEDICATIONS: Current Facility-Administered Medications Medication Dose Route Frequency Provider Last Rate Last Admin Acetaminophen (TYLENOL) oral solution 650 mg 650 mg Oral Q4H PRN Mick Alas MD 650 mg at 01/21/24 0532 Or Acetaminophen (TYLENOL) tablet 650 mg 650 mg Oral Q4H PRN Mick Alas MD Or Acetaminophen (TYLENOL) suppository 650 mg 650 mg Rectal Q4H PRN Mick Alas MD alum/mag hydrox.-simethicone oral suspension 30 mL 30 mL Oral Q6H PRN Martin Kapadia III, MD 30 mL at 01/18/24 1327 Atorvastatin (LIPITOR) tablet 10 mg 10 mg Oral QHS , DO 10 mg at 01/20/242025 bisacodyl (DULCOLAX) suppository 10 mg 10 mg Rectal Daily PRN Martin Kapadia III, MD 10 mg at 01/20/24 1648 carveDILOL (COREG) tablet 25 mg 25 mg Oral BID , DO 25 mg at 01/20/24 1612 Insulin lispro (HUMALOG) injection Subcutaneous 4x daily w/meals, HS Himanshu Rouse MD 2 Units at 01/20/242030 And Insulin lispro (HUMALOG) injection Subcutaneous PRN Himanshu Rouse MD 5 Units at 01/15/241820 And Dextrose 50% injection 7.5-25 g 7.5-25 g Intravenous As directed PRN Himanshu Rouse MD And glucose (GLUTOSE) 40 % oral gel 1-2 Tube 1-2 Tube Oral As directed PRN Himanshu Rouse MD Diltiazem (CARDIZEM CD) capsule XL 120 mg 120 mg Oral Daily , DO 120 mg at 01/20/24 09 DULoxetine (CYMBALTA) capsule DR 30 mg 30 mg Oral Daily , DO 30 mg at 01/20/24 09 Heparin injection 5,000 Units 5,000 Units Subcutaneous Q8H Martin Kapadia III, MD 5,000 Units at 01/20/242030 insulin glargine-yfgn (SEMGLEE) injection 8 Units 8 Units Subcutaneous QHS Terrence Augustine MD 8 Units at 01/20/242030 Lactated ringers IV solution Intravenous Continuous Martin Kapadia III, MD 100 mL/hr at 01/20/242153 New Bag at 01/20/242153 [Held by provider] Lisinopril (PRINIVIL) tablet 20 mg 20 mg Oral Daily , DO 20 mg at 01/16/24 0841 Melatonin tablet 6 mg 6 mg Oral QHS PRN Terrence Augustine MD 6 mg at 01/16/242057 methimazole (TAPAZOLE) tablet 5 mg 5 mg Oral Once per day on Sunday Terrence Augustine MD 5 mg at 01/18/24 0808 Ondansetron (ZOFRAN) tablet 4 mg 4 mg Oral Q6H PRN Mick Alas MD Or Ondansetron 4mg/2ml (ZOFRAN) injection 4 mg 4 mg Intravenous Q6H PRN Mick Alas MD 4 mg at 01/21/24 0537 Pantoprazole (PROTONIX) tablet DR 40 mg 40 mg Oral Daily Sunitha Corley DO 40 mg at 01/20/24 0902 Polyethylene glycol (MIRALAX) packet 17 g 17 g Oral Daily Martin Kapadia III, MD 17 g at 01/20/24 1241 Prochlorperazine (COMPAZINE) injection 10 mg 10 mg Intravenous Q6H PRN Mick Alas MD Senna (SENOKOT) tablet 8.6 mg 8.6 mg Oral Q12H Martin Kapadia III, MD 8.6 mg at 01/20/242025 Sodium chloride 0.9% IV solution 250 mL 250 mL Intravenous PRN Terrence Augustine MD 20 mL/hr at 01/20/24 1737 250 mL at 01/20/24 1737 DATA REVIEW: CBC: Chem: Na/K+/Phos/Mg/Ca: 134/3.8/--/2.0/9.5 (01/20 345) Bun/Creat/Cl/CO2/Glucose: 26/1.52/96/31/206 (01/20 345) Coags: All lab, imaging, and procedure results from the last 24 hours were personally reviewed. Signed, Martin Kapadia III, MD Placement Plan Expected Discharge Date: 01/22/2024 Referred Level of Care: shelter facility Barriers: medical readiness and transportation Current Referrals and Status 1. [facility]...... accepted and reserved. KATIE contacted pt's spouse, Jaime. Spouse reported he toured [facility] and confirmed [facility] was choice. SW messaged SNF about pt completing antibiotics, but may still be a few days from discharge due to needing NG placed. AnyMARILU Acosta IRP Fire Hazard Inspector Please note that I am float social scientist and am not the primary social scientist for this service and/or patient. Please contact primary social scientist during the week for any additional needs. Contact info for weekend CM and SW staff (8:00am - 4:30pm): [facility]: CCM: [phone] / Court Attendant: [phone] Munoz: [facility]: [phone] / Court Attendant: [phone] Gregory: [facility] : [phone] / Court Attendant: [phone] Nikolay/MICU/PCU Jose: [facility]: [phone] / Court Attendant: [phone] [facility] Daily Progress Note Physician: Martin Kapadia III, MD, Attending Physician, [facility] service Today's Date: 01/20/2024 Patient: Kerrie Kearney, : 1945, Admitted: 01/11/2024, Length of stay: 9 days IMPRESSION/PLAN: Kerrie Kearney is a 78 y.o. female with a history of chronic cognitive impairment, hyperthyroidism, DMt2, and HTN who presented on 01/11/2024 as a transfer from [place] for further evaluation of encephalopathy and fevers with concerns for meningitis. Acute Metabolic Encephalopathy / Presumed Meningitis: Presented with acute confusion, headaches, and difficulty ambulating. Febrile to 101F at OSH with imaging. Head CT negative for acute pathology. MRI showed some diffuse restricted diffusion in the cerebral cortex bilaterally most pronounced in the parietal occipital regions - possibly due to inflammation. LP (after a few days of atbx) was largely unrevealing with 5 WBC (44% PMNs), 248 RBC, protein 88, glucose 143, negative culture, and negative encephalitis panel. Ultimately, exact etiology of presentation unclear - but clinically highly concerning for meningitis. -Evaluated by Neurology and ID. Completed 14 days of empiric antibiotics (Meropenem and Vanc) on 01/20/24 -Continue delirium precautions -Continue sitter for now given some ongoing impulsivity. Hopefully remove tomorrow Abdominal Pain / Ileus: C/o abdominal pain 01/17 am - followed by vomiting later in the evening. KUB demonstrated evidence of Ileus vs SBO (though no clear transition point). Pt had bowel movement 01/18 am, though, suggesting against bowel obstruction. -KUB updated 01/19 and shows persistent ileus... -Continue scheduled Senna. Add Miralax and will give a suppository -Doing ok with CLD so will try to advance diet this evening. -Move / get out of bed as much as possible -If recurrent vomiting, will have low threshold for NG for decompression - and might consider CT HTN: Normotensive on admission. Home regimen: Coreg 25mg BID, Diltiazem 120mg, Lisinopril 20mg. -Continue home Coreg, Diltiazem -Holding home Lisinopril for RICK -May fold in some Hydralazine to quill picking machine operator the slack while Lisinopril is held RICK: Cr jumped to 1.6 on 74am - from baseline ~0.9-1.1. Suspect related to elevated Vanc trough plus some effect from Lisinopril -Continue some IVF -Appreciate Pharm help with Vanc adjustment -Continue to monitor Cr, renally dose meds, and avoid potentially nephrotoxic agents as able DMt2 with Hyperglycemia: Hyperglycemic in the 500s on presentation - with A1c 10.6%. Previously on Metformin and Glipizide at home. -Evaluated by Endocrinology and started on Insulin. Plan to continue at discharge. -Continue Lantus and SSI for now (plan to switch to fixed dosing at discharge) -Appreciate DM educator and RN's assistance with teaching -Will need all insulin / glucometer supplies at discharge Hyperthyroidism: TSH and fT4 wnl at OSH. Continue home Methimazole. Thyroid Nodules: CTA at OSH revealed incidental 2.8cm L thyroid nodule. Subsequent US showed multinodular goiter with up to 2.3 cm left thyroid TI-RAD 3 lesion and 1.2cm right thyroid TI-RA 4 lesion. Follow up as outpatient for further management / repeat US in 1 year. Oropharyngeal Dysphagia: Has had some dysphagia in setting of encephalopathy but has subsequently been cleared for regular diet. Continue to monitor. Anxiety: Continue home Cymbalta Hyponatremia: 2/2 dehydration and hyperglycemia. Improved with hydration. Continue to monitor. Chronic Anemia: 2/2 chronic disease and phlebotomy. Otherwise, no overt blood loss noted. Continue to monitor FEN: DIET CARB CONTROLLED DVT Prophylaxis: SubQ Heparin Code status: Full Code Dispo: due to logistical reasons, will remain inpatient while completing course of IV antibiotics. Working on discharge to SNF after completion of atbx INTERVAL HISTORY/SUBJECTIVE: No acute events over night. Denies any abdominal pain or nausea. She did have a small BM. She's actually wanting to get out of here. Mentation is same. at bedside. We talked about the Ileus and how I want to see her doing better from this before getting her out of here OBJECTIVE: Vitals: [range] current Temp: [97.3 F (36.3 C)-98.7 F (37.1 C)] 98.7 F (37.1 C) Pulse (Heart Rate): [63-70] 70 Resp Rate: [16-19] 16 BP: (119-162)/(59-69) 133/65 O2 Sat (%): [91 %-98 %] 98 % O2 Device: room air (01/20/241999) Flow (L/min): 0 (01/17/24 0742) Intake/Output last 3 shifts: I/O last 3 completed shifts: In: 794.7 [P.O.:354; I.V.:229.2; IV Piggyback:211.5] Out: - Body mass index is 27.59 kg/m . Physical Exam: General: Alert. In no acute distress. Respiratory: Normal Respiratory effort. Lungs clear to auscultation bilaterally. Cardiovascular: Normal rate & regular rhythm. Normal S1 and S2. No murmurs, rubs, or gallops appreciated. Abdomen: A little distended but soft and generally non-tender. Normal bowel sounds. Extremities: Warm and well perfused. No peripheral edema Neurological: Oriented to person and place. Not year. Clear memory deficits noted. No focal motor deficits appreciated. Skin: No acute rashes or excoriations noted on exposed skin. CURRENT MEDICATIONS: Current Facility-Administered Medications Medication Dose Route Frequency Provider Last Rate Last Admin Acetaminophen (TYLENOL) oral solution 650 mg 650 mg Oral Q4H PRN Mick Alas MD 650 mg at 01/19/24 0226 Or Acetaminophen (TYLENOL) tablet 650 mg 650 mg Oral Q4H PRN Mick Alas MD Or Acetaminophen (TYLENOL) suppository 650 mg 650 mg Rectal Q4H PRN Mick Alas MD alum/mag hydrox.-simethicone oral suspension 30 mL 30 mL Oral Q6H PRN Martin Kapadia III, MD 30 mL at 01/18/24 1327 Atorvastatin (LIPITOR) tablet 10 mg 10 mg Oral QHS , DO 10 mg at 01/20/242025 bisacodyl (DULCOLAX) suppository 10 mg 10 mg Rectal Daily PRN Martin Kapadia III, MD 10 mg at 01/20/24 1648 carveDILOL (COREG) tablet 25 mg 25 mg Oral BID , DO 25 mg at 01/20/24 1612 Insulin lispro (HUMALOG) injection Subcutaneous 4x daily w/meals, HS Himanshu Rouse MD 2 Units at 01/20/242030 And Insulin lispro (HUMALOG) injection Subcutaneous PRN Himanshu Rouse MD 5 Units at 01/15/24 182 And Dextrose 50% injection 7.5-25 g 7.5-25 g Intravenous As directed PRN Himanshu Rouse MD And glucose (GLUTOSE) 40 % oral gel 1-2 Tube 1-2 Tube Oral As directed PRN Himanshu Rouse MD Diltiazem (CARDIZEM CD) capsule XL 120 mg 120 mg Oral Daily , DO 120 mg at 01/20/24 0902 DULoxetine (CYMBALTA) capsule DR 30 mg 30 mg Oral Daily , DO 30 mg at 01/20/24 09 Heparin injection 5,000 Units 5,000 Units Subcutaneous Q8H Martin Kapadia III, MD 5,000 Units at 01/20/242030 insulin glargine-yfgn (SEMGLEE) injection 8 Units 8 Units Subcutaneous QHS Terrence Augustine MD 8 Units at 01/20/242030 Lactated ringers IV solution Intravenous Continuous Martni Kapadia III, MD 100 mL/hr at 01/20/242153 New Bag at 01/20/242153 [Held by provider] Lisinopril (PRINIVIL) tablet 20 mg 20 mg Oral Daily , DO 20 mg at 01/16/24 0841 Melatonin tablet 6 mg 6 mg Oral QHS PRN Terrence Augustine MD 6 mg at 01/16/242057 methimazole (TAPAZOLE) tablet 5 mg 5 mg Oral Once per day on Sunday Terrence Augustine MD 5 mg at 01/18/24 08 Ondansetron (ZOFRAN) tablet 4 mg 4 mg Oral Q6H PRN Mick Alas MD Or Ondansetron 4mg/2ml (ZOFRAN) injection 4 mg 4 mg Intravenous Q6H PRN Mick Alas MD 4 mg at 01/20/24 1319 Pantoprazole (PROTONIX) tablet DR 40 mg 40 mg Oral Daily , DO 40 mg at 01/20/24 09 Polyethylene glycol (MIRALAX) packet 17 g 17 g Oral Daily Martin Kapadia III, MD 17 g at 01/20/24 1241 Prochlorperazine (COMPAZINE) injection 10 mg 10 mg Intravenous Q6H PRN Mick Alas MD Senna (SENOKOT) tablet 8.6 mg 8.6 mg Oral Q12H Martin Kapadia III, MD 8.6 mg at 01/20/242025 Sodium chloride 0.9% IV solution 250 mL 250 mL Intravenous PRN Terrence Augustine MD 20 mL/hr at 01/20/24 173 250 mL at 01/20/241736 DATA REVIEW: CBC: WBC/Hgb/Hct/Plts: 11.68/11.5/37.2/235 (01/19 542) Chem: Na/K+/Phos/Mg/Ca: 135/5.0/--/2.6/9.6 (01/19 542) Bun/Creat/Cl/CO2/Glucose: 27/1.42/100/26/237 (01/19 542-01/20 2004) Coags: All lab, imaging, and procedure results from the last 24 hours were personally reviewed. Signed, Martin Kapadia III, MD [facility] Daily Progress Note Physician: Martin Kapadia III, MD, Attending Physician, 6 service Today's Date: 01/19/2024 Patient: Kerrie Kearney, : 1945, Admitted: 01/11/2024, Length of stay: 8 days IMPRESSION/PLAN: Kerrie Kearney is a 78 y.o. female with a history of chronic cognitive impairment, hyperthyroidism, DMt2, and HTN who presented on 01/11/2024 as a transfer from [place] for further evaluation of encephalopathy and fevers with concerns for meningitis. Acute Metabolic Encephalopathy / Presumed Meningitis: Presented with acute confusion, headaches, and difficulty ambulating. Febrile to 101F at OSH with imaging. Head CT negative for acute pathology. MRI showed some diffuse restricted diffusion in the cerebral cortex bilaterally most pronounced in the parietal occipital regions - possibly due to inflammation. LP (after a few days of atbx) was largely unrevealing with 5 WBC (44% PMNs), 248 RBC, protein 88, glucose 143, negative culture, and negative encephalitis panel. Ultimately, exact etiology of presentation unclear - but clinically highly concerning for meningitis. -Evaluated by Neurology and ID. Plans are to complete 14 days of antibiotics empirically for meningitis (end date: 01/19). -Continue delirium precautions -Continue sitter for now given some ongoing impulsivity HTN: Normotensive on admission. Home regimen: Coreg 25mg BID, Diltiazem 120mg, Lisinopril 20mg. 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 Suspect related to elevated Vanc trough plus some effect from Lisinopril -Continue some IVF -Appreciate Pharm help with Vanc adjustment -Continue to monitor Cr, renally dose meds, and avoid potentially nephrotoxic agents as able Abdominal Pain / Ileus: C/o abdominal pain 7/5 am - followed by vomiting later in the evening. KUB demonstrated evidence of Ileus vs SBO (though no clear transition point). Pt had bowel movement 01/18 am, though, suggesting against bowel obstruction. -Will try to advance diet back to [facility] today (01/18) -Schedule Senna -Move / get out of bed as much as possible -If recurrent vomiting, will have low threshold for NG for decompression - and might consider CT DMt2 with Hyperglycemia: Hyperglycemic in the 500s on presentation - with A1c 10.6%. Previously on Metformin and Glipizide at home. -Evaluated by Endocrinology and started on Insulin. Plan to continue at discharge. -Continue Lantus and SSI for now (plan to switch to fixed dosing at discharge) -Appreciate DM educator and RN's assistance with teaching -Will need all insulin / glucometer supplies at discharge Hyperthyroidism: TSH and fT4 wnl at OSH. Continue home Methimazole. Thyroid Nodules: CTA at OSH revealed incidental 2.8cm L thyroid nodule. Subsequent US showed multinodular goiter with up to 2.3 cm left thyroid TI-RAD 3 lesion and 1.2cm right thyroid TI-RA 4 lesion. Follow up as outpatient for further management / repeat US in 1 year. Oropharyngeal Dysphagia: Has had some dysphagia in setting of encephalopathy but has subsequently been cleared for regular diet. Continue to monitor. Anxiety: Continue home Cymbalta Hyponatremia: 2/2 dehydration and hyperglycemia. Improved with hydration. Continue to monitor. Chronic Anemia: 2/2 chronic disease and phlebotomy. Otherwise, no overt blood loss noted. Continue to monitor FEN: DIET NPO with meds DVT Prophylaxis: SubQ Heparin Code status: Full Code Dispo: due to logistical reasons, will remain inpatient while completing course of IV antibiotics. Working on discharge to SNF after completion of atbx INTERVAL HISTORY/SUBJECTIVE: Had some ongoing abdominal discomfort last evening - followed by actual vomiting unfortunately. XRs were obtained and demonstrated signs of an ileus. On my exam, pt is resting comfortably. She denies any issues with abdominal discomfort and says she doesn't even really remember last night that much.... sitter tells me pt had a BM earlier (per RN it was described as mushy). OBJECTIVE: Vitals: [range] current Temp: [98.4 F (36.9 C)-99.4 F (37.4 C)] 98.4 F (36.9 C) Pulse (Heart Rate): [73-90] 74 Resp Rate: [18-20] 18 BP: (111-155)/(55-86) 128/86 O2 Sat (%): [93 %-98 %] 97 % O2 Device: room air (01/19/24 0314) Flow (L/min): 0 (01/17/24 0742) Intake/Output last 3 shifts: I/O last 3 completed shifts: In: 1263 [P.O.:1263] Out: 350 [Urine:350] Body mass index is 27.59 kg/m . Physical Exam: General: Alert. In no acute distress. Respiratory: Normal Respiratory effort. Lungs clear to auscultation bilaterally. Cardiovascular: Normal rate & regular rhythm. Normal S1 and S2. No murmurs, rubs, or gallops appreciated. Abdomen: A little distended but soft and generally non-tender. Normal bowel sounds. Extremities: Warm and well perfused. No peripheral edema Neurological: Oriented to person and place. Not year. Clear memory deficits noted. No focal motor deficits appreciated. Skin: No acute rashes or excoriations noted on exposed skin. CURRENT MEDICATIONS: Current Facility-Administered Medications Medication Dose Route Frequency Provider Last Rate Last Admin Acetaminophen (TYLENOL) oral solution 650 mg 650 mg Oral Q4H PRN Mick Alas MD 650 mg at 01/19/24 0226 Or Acetaminophen (TYLENOL) tablet 650 mg 650 mg Oral Q4H PRN Mick Alas MD Or Acetaminophen (TYLENOL) suppository 650 mg 650 mg Rectal Q4H PRN Mick Alas MD alum/mag hydrox.-simethicone oral suspension 30 mL 30 mL Oral Q6H PRN Martin Kapadia III, MD 30 mL at 01/18/24 1327 Atorvastatin (LIPITOR) tablet 10 mg 10 mg Oral QHS Sunitha Corley DO 10 mg at 01/18/24 2100 carveDILOL (COREG) tablet 25 mg 25 mg Oral BID , DO 25 mg at 01/18/24 1628 Insulin lispro (HUMALOG) injection Subcutaneous 4x daily w/meals, HS Himanshu Rouse MD 3 Units at 01/18/242100 And Insulin lispro (HUMALOG) injection Subcutaneous PRN Himanshu Rouse MD 5 Units at 01/15/24 182 And Dextrose 50% injection 7.5-25 g 7.5-25 g Intravenous As directed PRN Himanshu Rouse MD And glucose (GLUTOSE) 40 % oral gel 1-2 Tube 1-2 Tube Oral As directed PRN Himanshu Rouse MD Diltiazem (CARDIZEM CD) capsule XL 120 mg 120 mg Oral Daily , DO 120 mg at 01/18/24 0805 DULoxetine (CYMBALTA) capsule DR 30 mg 30 mg Oral Daily , DO 30 mg at 01/18/24 0808 Heparin injection 5,000 Units 5,000 Units Subcutaneous Q8H Martin Kapadia III, MD 5,000 Units at 01/18/24 2238 insulin glargine-yfgn (SEMGLEE) injection 8 Units 8 Units Subcutaneous QHS Terrence Augustine MD 8 Units at 01/18/242100 [Held by provider] Lisinopril (PRINIVIL) tablet 20 mg 20 mg Oral Daily , DO 20 mg at 01/16/24 0841 Melatonin tablet 6 mg 6 mg Oral QHS PRN Terrence Augustine MD 6 mg at 01/16/242057 Meropenem (MERREM) 2 g in Sodium chloride 0.9%, with overfill 110 mL (total volume) IVPB 2 g Intravenous Q12HNS Rin Morales, RPH 36.7 mL/hr at 01/19/24 0610 2 g at 01/19/24 0610 methimazole (TAPAZOLE) tablet 5 mg 5 mg Oral Once per day on Sunday Terrence Augustine MD 5 mg at 01/18/24 0808 Ondansetron (ZOFRAN) tablet 4 mg 4 mg Oral Q6H PRN Mick Alas MD Or Ondansetron 4mg/2ml (ZOFRAN) injection 4 mg 4 mg Intravenous Q6H PRN Mick Alas MD 4 mg at 01/19/24 0250 Pantoprazole (PROTONIX) tablet DR 40 mg 40 mg Oral Daily Sunitha Corley, DO 40 mg at 01/18/24 0805 Prochlorperazine (COMPAZINE) injection 10 mg 10 mg Intravenous Q6H PRN Mick Alas MD Sodium chloride 0.9% IV solution 250 mL 250 mL Intravenous PRN Terrence Augustine MD 20 mL/hr at 01/19/24 0609 250 mL at 01/19/24 0609 Sodium chloride 0.9% IV solution Intravenous Continuous Martin Kapadia III, MD Vancomycin HCl in NaCl (Vancocin) 1,250 mg 287.5 ml premade IVPB 1,250 mg Intravenous Q48H Carleen Gould, [facility] DATA REVIEW: CBC: Chem: Na/K+/Phos/Mg/Ca: 133/4.0/--/--/9.4 (01/18 032) Bun/Creat/Cl/CO2/Glucose: 24/1.33/97/26/283 (01/18 321) Coags: All lab, imaging, and procedure results from the last 24 hours were personally reviewed. Signed, Martin Kapadia III, MD Placement Plan Expected Discharge Date: 01/21/2024 Referred Level of Care: skilled Barriers: medical readiness Current Referrals and Status 1. [facility] (RESERVED) KATIE met with patient's at bedside for follow up re:SNF selection. reported [facility] is a mile from their home and it would be convenient although he had not been in it. SW answered questions he had and encouraged him to tour. agreed to tour with his son tomorrow; son is arriving today from [place]. in agreement with reserving [facility] and will update KATIE if they change their mind. requested SW reach out to [facility] to see if patient would have a private room. SW messaged [facility]. also states he is willing to transport patient to [facility], since he did not want transportation to delay her discharge. SW agreed to follow up with the team to see if patient could go safely by car. SW agreed to update him accordingly. 1520 SW followed up with patient and patient's at bedside to let them know SW did not have any updates from [facility] at this time but that SW would keep them posted tomorrow if there was any response. Lydia South MOLD INSPECTOR,PRECISION ASSEMBLER SW IRP, Please note that I am the weekend IRP and am not the primary social scientist for this service and/or patient. Please contact primary social scientist during the week for any additional needs. Contact info for weekend CM and SW staff (8:00am - 4:30pm): [facility]: CCM: [phone] / Court Attendant: [phone] Munoz: CCM: [phone] / Court Attendant: [phone] Gregory: CCM : [phone] / Court Attendant: [phone] Ross/MICU/PCU Jose: CCM: [phone] / Court Attendant: [phone] Department of Pharmacy Pharmacokinetics Progress Note Patient: Kerrie Kearney Room/Bed: [facility]/A Assessment and Plan: Based upon drug level assessment and interpretation (steady state), I have changed the vancomycin dose and/or dosing interval to 1250 mg IV every 48 hours to start at 1400 on 01/19/24. A pharmacist will continue to follow and order drug levels and adjust dosing as clinically appropriate. I have modified the orders in IHIS to reflect the above plan. Vancomycin regimen at time of level: Vancomycin 1000 mg IV every 24 hours Last Dose Administered: Dose: Date: Time: 1000 mg 01/17/242100 Levels: 21 mcg/mL drawn at 2006 on 01/18/24. Level was a trough. Most Recent Labs: WBC Count Date Value Ref Range Status 01/18/2024 6.73 3.99 - 11.19 K/uL Final BUN Date Value Ref Range Status 01/18/2024 24 7 - 25 mg/dL Final Creatinine Date Value Ref Range Status 01/18/2024 1.56 (H) 0.50 - 1.20 mg/dL Final I/O last 3 completed shifts: In: 1518 [P.O.:1518] Out: 350 [Urine:350] Estimated Creatinine Clearance: 27 mL/min (A) (by C-G formula based on SCr of 1.56 mg/dL (H)). and renal function is worsening. Ongoing Vancomycin Monitoring: The following trough goal is recommended for ongoing therapy based on the suspected/confirmed source of infection and today s calculations: Goal trough range: 15-20 mcg/mL If therapy is to be continued after discharge, please contact pharmacy for appropriate dosing. Please feel free to contact me with any further questions. Name: Carleen Gould RPH Phone: [phone] Date/Time: 01/18/2024 9:08 PM NUTRITION RISK SCREENING NOTE Nutrition Risk Identified: current admit, past medical history, advanced age, inadequate PO intake, nausea Nutrition Plan of Care: 1. Diet Order: continue current diet order 2. Oral Supplement: encourage high protein foods Will provide. 3. Follow up: monitor for significant weight changes, monitor for GI symptoms, monitor skin integrity, encourage PO intake with goal of 75%, administrative dietitian to follow __ Kerrie Kearney is a 78 y.o. female admitted with a past medical history of hypertension, diabetes mellitus and hyperthyroidism who presented to [facility] on 01/07 with a chief complaint of confusion. Past medical history reviewed in chart: Diet order: DIET REGULAR Nutrition Risk Factor Screening Appetite: poor Patient c/o: nausea GI: Last Bowel Movement: 01/18/24 Chewing / Swallowing Problems: no issues with chewing and/or swallowing Cultural or Quaker Restrictions/Preferences: None Food Allergies: None Skin Integrity / Arnoldo Score Reviewed: yes Arnoldo Score: 17 Active Wounds: Edema: none Net IO Since Admission: 4,750.81 mL [01/18/24 1350] Weight Changes: Weight Changes: unsure of any weight changes Anthropometrics Height: 154.9 cm (5' 1) Admit wt: 146 lb IBW: 105 lb %IBW: 139% UBW: 150 lb %UBW: 98% Wt Readings from Last 10 Encounters: 01/11/24 66.2 kg (146 lb) Malnutrition weight loss criteria: (NR-S 01/17* declines supplements) Pt stated having a poor appetite/PO consuming <50% of all meals, thru out this admission with usual PO prior(small frequent meals thru out the day). Pt has been having ongoing episodes of Nausea this admission. Pt was offered supplements until PO improve however declines, dislike the taste. Pt has no other nutritional concerns and denies V, diarrhea, constipation,chewing/swallow issues or severe weight changes over the past three months. Follow for tolerance to PO and weight changes. Bib Sage DTR Pager: [phone] Placement Plan Expected Discharge Date: 01/21/2024 Referred Level of Care: SNF Barriers: Medical stability, Facility choice Current Referrals and Status 1. [facility] - Accepted 2. [facility] - Accepted 3. [facility] - Accepted Went to pt's room to provide SNF list, but no family at bedside. Called and left message for pt's spouse Isac requesting a call back. Will provide list to him when he returns the call. SW will follow. ADDENDUM 15:29: Spoke with pt's spouse Isac via phone. Verbally went over the list of accepting facilities and emailed him the list, per his request. Isac advised that he will review and should have a choice facility by Sunday. Will request weekend SW assistance in following up. JAMAR Mccain Court Attendant *Please note that I am a float social scientist and that I may not cover the same service everyday. Please call the main Social Work office at for up to date coverage. For Social Work assistance for the weekend, please contact for assistance as needed (8:00am - 4:30pm): BAS: [phone] or [phone] Tammy: [phone] or [phone] Gregory: [phone] or [phone] Ross/MICU/PCU Jose: [phone] or [phone] [facility] Daily Progress Note Physician: Martin Kapadia III, MD, Attending Physician, 6 service Today's Date: 01/18/2024 Patient: Kerrie Kearney, : 1945, Admitted: 01/11/2024, Length of stay: 7 days IMPRESSION/PLAN: Kerrie Kearney is a 78 y.o. female with a history of chronic cognitive impairment, hyperthyroidism, DMt2, and HTN who presented on 01/11/2024 as a transfer from [place] for further evaluation of encephalopathy and fevers with concerns for meningitis. Acute Metabolic Encephalopathy / Presumed Meningitis: Presented with acute confusion, headaches, and difficulty ambulating. Febrile to 101F at OSH with imaging. Head CT negative for acute pathology. MRI showed some diffuse restricted diffusion in the cerebral cortex bilaterally most pronounced in the parietal occipital regions - possibly due to inflammation. LP (after a few days of atbx) was largely unrevealing with 5 WBC (44% PMNs), 248 RBC, protein 88, glucose 143, negative culture, and negative encephalitis panel. Ultimately, exact etiology of presentation unclear - but clinically highly concerning for meningitis. -Evaluated by Neurology and ID. Plans are to complete 14 days of antibiotics empirically for meningitis (end date: 01/19). Will plan to keep her here through that date (as not a candidate for PICC and seems unnecessary to pursue a tunneled line with only a few days of atbx left). -Continue sitter for now given some ongoing impulsivity -Continue delirium precautions HTN: Normotensive on admission. Home regimen: Coreg 25mg BID, Diltiazem 120mg, Lisinopril 20mg. 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 Suspect related to elevated Vanc trough plus some effect from Lisinopril -Continue some IVF -Appreciate Pharm help with Vanc adjustment -Continue to monitor Cr, renally dose meds, and avoid potentially nephrotoxic agents as able Abdominal Discomfort: Complained of some lower abdominal discomfort on 01/17. Had BM and didn't seem to affect it. Denies dysuria and PVR negative. Unclear to what to make of it at this time. -Will try some PRN Maalox -Continue to ensure moving bowels -If worsening, will likely order KUB - vs other testing DMt2 with Hyperglycemia: Hyperglycemic in the 500s on presentation - with A1c 10.6%. Previously on Metformin and Glipizide at home. -Evaluated by Endocrinology and started on Insulin. Plan to continue at discharge. -Continue Lantus and SSI for now (plan to switch to fixed dosing at discharge) -Appreciate DM educator and RN's assistance with teaching -Will need all insulin / glucometer supplies at discharge Hyperthyroidism: TSH and fT4 wnl at OSH. Continue home Methimazole. Thyroid Nodules: CTA at OSH revealed incidental 2.8cm L thyroid nodule. Subsequent US showed multinodular goiter with up to 2.3 cm left thyroid TI-RAD 3 lesion and 1.2cm right thyroid TI-RA 4 lesion. Follow up as outpatient for further management / repeat US in 1 year. Oropharyngeal Dysphagia: Has had some dysphagia in setting of encephalopathy but has subsequently been cleared for regular diet. Continue to monitor. Anxiety: Continue home Cymbalta Hyponatremia: 2/2 dehydration and hyperglycemia. Improved with hydration. Continue to monitor. Chronic Anemia: 2/2 chronic disease and phlebotomy. Otherwise, no overt blood loss noted. Continue to monitor FEN: DIET REGULAR DVT Prophylaxis: SubQ Heparin Code status: Full Code Dispo: due to logistical reasons, will remain inpatient while completing course of IV antibiotics. Working on discharge to SNF after completion of atbx INTERVAL HISTORY/SUBJECTIVE: No acute events over night but, unfortunately, she's having some abdominal pain this am. Has a hard time describing it. It doesn't feel like she has to poop and it didn't improve after she pooped this am. No dysuria. Baseline urinary incontinence unchanged. Not a lot of appetite. No nausea. Otherwise, mentation stable. No SOB or CP. at bedside. Discussed plans for management OBJECTIVE: Vitals: [range] current Temp: [98.4 F (36.9 C)-99 F (37.2 C)] 98.4 F (36.9 C) Pulse (Heart Rate): [73-93] 73 Resp Rate: [14-20] 20 BP: (111-181)/(55-82) 111/55 O2 Sat (%): [94 %-98 %] 94 % O2 Device: room air (01/18/24 1122) Flow (L/min): 0 (01/17/24 0742) Intake/Output last 3 shifts: I/O last 3 completed shifts: In: 1752.5 [P.O.:1218; I.V.:334.5; IV Piggyback:200] Out: 1050 [Urine:1050] Body mass index is 27.59 kg/m . Physical Exam: General: Alert. In no acute distress. Respiratory: Normal Respiratory effort. Lungs clear to auscultation bilaterally. Cardiovascular: Normal rate & regular rhythm. Normal S1 and S2. No murmurs, rubs, or gallops appreciated. Abdomen: Soft, non-distended. A little tender in lower abdomen but no rebound/guarding. Normal bowel sounds. Extremities: Warm and well perfused. No peripheral edema Neurological: Oriented to person and place. Not year. Clear memory deficits noted. No focal motor deficits appreciated. Skin: No acute rashes or excoriations noted on exposed skin. CURRENT MEDICATIONS: Current Facility-Administered Medications Medication Dose Route Frequency Provider Last Rate Last Admin Acetaminophen (TYLENOL) tablet 650 mg 650 mg Oral Q6H PRN Terrence Augustine MD 650 mg at 01/18/24 0813 alum/mag hydrox.-simethicone oral suspension 30 mL 30 mL Oral Q6H PRN Martin Kapadia III, MD Atorvastatin (LIPITOR) tablet 10 mg 10 mg Oral QHS Sunitha M Jory, DO 10 mg at 01/17/242109 carveDILOL (COREG) tablet 25 mg 25 mg Oral BID , DO 25 mg at 01/18/24 08 Insulin lispro (HUMALOG) injection Subcutaneous 4x daily w/meals, HS Himanshu Rouse MD 5 Units at 01/18/24 0935 And Insulin lispro (HUMALOG) injection Subcutaneous PRN Himanshu Rouse MD 5 Units at 01/15/24 1821 And Dextrose 50% injection 7.5-25 g 7.5-25 g Intravenous As directed PRN Himanshu Rouse MD And glucose (GLUTOSE) 40 % oral gel 1-2 Tube 1-2 Tube Oral As directed PRN Himanshu Rouse MD Diltiazem (CARDIZEM CD) capsule XL 120 mg 120 mg Oral Daily , DO 120 mg at 01/18/24 0805 DULoxetine (CYMBALTA) capsule DR 30 mg 30 mg Oral Daily , DO 30 mg at 01/18/24 0808 Heparin injection 5,000 Units 5,000 Units Subcutaneous Q8H Martin Kapadia III, MD 5,000 Units at 01/18/24 0804 insulin glargine-yfgn (SEMGLEE) injection 8 Units 8 Units Subcutaneous QHS Terrence Augustine MD 8 Units at 01/17/24 2110 Lactated ringers IV solution Intravenous Continuous Martin Kapadia III, MD 100 mL/hr at 01/18/24 1044 New Bag at 01/18/24 1044 [Held by provider] Lisinopril (PRINIVIL) tablet 20 mg 20 mg Oral Daily , DO 20 mg at 01/16/24 0841 Melatonin tablet 6 mg 6 mg Oral QHS PRN Terrence Augustine MD 6 mg at 01/16/242057 Meropenem (MERREM) 2 g in Sodium chloride 0.9%, with overfill 110 mL (total volume) IVPB 2 g Intravenous Q12HNS Rin Morales, RPH 36.7 mL/hr at 01/18/24 0621 2 g at 01/18/24 0621 methimazole (TAPAZOLE) tablet 5 mg 5 mg Oral Once per day on Sunday Terrence Augustine MD 5 mg at 01/18/24 0808 Pantoprazole (PROTONIX) tablet DR 40 mg 40 mg Oral Daily Sunitha M Jory, DO 40 mg at 01/18/24 0805 Sodium chloride 0.9% IV solution 250 mL 250 mL Intravenous PRN Terrence Augustine MD 20 mL/hr at 01/17/24 1706 250 mL at 01/17/24 170 Vancomycin HCl in NaCl (VANCOCIN) 1,000 mg in 200 ml NS premix IVPB 1,000 mg Intravenous Q24H Lina Stubbs, RPH 100 mL/hr at 01/17/242100 1,000 mg at 01/17/242100 DATA REVIEW: CBC: WBC/Hgb/Hct/Plts: 6.73/10.7/34.9/251 (01/17 226) Chem: Na/K+/Phos/Mg/Ca: 139/4.0/--/--/9.7 (01/17 226) Bun/Creat/Cl/CO2/Glucose: 24/1.56/102/29/256 (01/17 226-01/17 1126) Coags: All lab, imaging, and procedure results from the last 24 hours were personally reviewed. Signed, Martin Kapadia III, MD Placement Plan Expected Discharge Date: 01/21/2024 Referred Level of Care: SNF Barriers: acceptance, choice, precert, transport Current Referrals and Status [facility] - accepted [facility] - accepted [facility] - accepted [facility] - under review [facility] - under review [facility] - under review sent clinical updates, updated facilities that patient will finish her IV abx prior to DC. Extended Aidin timer until tomorrow and asked reviewing facilities to provide determination. [facility] [address] Attendant - Surgical ICU Hospital Medicine Daily Progress Note Physician: Martin Kapadia III, MD, Attending Physician, GM6 service Today's Date: 01/17/2024 Patient: Kerrie Kearney, : 1945, Admitted: 01/11/2024, Length of stay: 6 days IMPRESSION/PLAN: Kerrie Kearney is a 78 y.o. female with a history of chronic cognitive impairment, hyperthyroidism, DMt2, and HTN who presented on 01/11/2024 as a transfer from [place] for further evaluation of encephalopathy and fevers with concerns for meningitis. Acute Metabolic Encephalopathy / Presumed Meningitis: Presented with acute confusion, headaches, and difficulty ambulating. Febrile to 101F at OSH with imaging. Head CT negative for acute pathology. MRI showed some diffuse restricted diffusion in the cerebral cortex bilaterally most pronounced in the parietal occipital regions - possibly due to inflammation. LP (after a few days of atbx) was largely unrevealing with 5 WBC (44% PMNs), 248 RBC, protein 88, glucose 143, negative culture, and negative encephalitis panel. Ultimately, exact etiology of presentation unclear - but clinically highly concerning for meningitis. -Evaluated by Neurology and ID. Plans are to complete 14 days of antibiotics empirically for meningitis (end date: 01/19). Will plan to keep her here through that date (as not a candidate for PICC and seems unnecessary to pursue a tunneled line with only a few days of atbx left). -Continue sitter for now given some ongoing impulsivity -Continue delirium precautions HTN: Normotensive on admission. Home regimen: Coreg 25mg BID, Diltiazem 120mg, Lisinopril 20mg. -Continue home Coreg, Diltiazem -Hold home Lisinopril for RICK RICK: Mild RICK on 01/16. Vanc trough up. Probably related to that and Lisinopril -Hold Lisinopril -Trial some IV fluids -Appreciate Pharm help with Vanc adjustment -Continue to monitor Cr, renally dose meds, and avoid potentially nephrotoxic agents as able DMt2 with Hyperglycemia: Hyperglycemic in the 500s on presentation - with A1c 10.6%. Previously on Metformin and Glipizide at home. -Evaluated by Endocrinology and started on Insulin. Plan to continue at discharge. -Continue Lantus and SSI for now (plan to switch to fixed dosing at discharge) -Appreciate DM educator and RN's assistance with teaching -Will need all insulin / glucometer supplies at discharge Hyperthyroidism: TSH and fT4 wnl at OSH. Continue home Methimazole. Thyroid Nodules: CTA at OSH revealed incidental 2.8cm L thyroid nodule. Subsequent US showed multinodular goiter with up to 2.3 cm left thyroid TI-RAD 3 lesion and 1.2cm right thyroid TI-RA 4 lesion. Follow up as outpatient for further management / repeat US in 1 year. Oropharyngeal Dysphagia: Has had some dysphagia in setting of encephalopathy but has subsequently been cleared for regular diet. Continue to monitor. Anxiety: Continue home Cymbalta Hyponatremia: 2/2 dehydration and hyperglycemia. Improved with hydration. Continue to monitor. Chronic Anemia: 2/2 chronic disease and phlebotomy. Otherwise, no overt blood loss noted. Continue to monitor FEN: DIET REGULAR DVT Prophylaxis: SubQ Heparin Code status: Full Code Dispo: due to logistical reasons, will remain inpatient while completing course of IV antibiotics. Working on discharge to SNF after completion of atbx INTERVAL HISTORY/SUBJECTIVE: Bladder scan elevated this AM but able to urinate with some extra assistance / sitting up. Oriented to person and place. Not year. Denied any complaints. at bedside. Reports she is essentially at baseline. Discussed SNF recommendations and he ultimately agreed that it is needed and is willing to pursue this. OBJECTIVE: Vitals: [range] current Temp: [97.1 F (36.2 C)-98 F (36.7 C)] 97.9 F (36.6 C) Pulse (Heart Rate): [61-76] 72 Resp Rate: [16-18] 18 BP: (111-182)/(56-76) 182/76 O2 Sat (%): [96 %-100 %] 99 % O2 Device: room air (01/17/24 0717) Flow (L/min): 0 (01/12/24 1903) Intake/Output last 3 shifts: I/O last 3 completed shifts: In: 600 [P.O.:600] Out: 300 [Urine:300] Body mass index is 27.59 kg/m . Physical Exam: General: Alert. In no acute distress. Respiratory: Normal Respiratory effort. Lungs clear to auscultation bilaterally. Cardiovascular: Normal rate & regular rhythm. Normal S1 and S2. No murmurs, rubs, or gallops appreciated. Abdomen: Soft, non-distended, non-tender. No rebound/guarding. Normal bowel sounds. Extremities: Warm and well perfused. No peripheral edema Neurological: Oriented to person and place. Not year. Clear memory deficits noted. No focal motor deficits appreciated. Skin: No acute rashes or excoriations noted on exposed skin. CURRENT MEDICATIONS: Current Facility-Administered Medications Medication Dose Route Frequency Provider Last Rate Last Admin Acetaminophen (TYLENOL) tablet 650 mg 650 mg Oral Q6H PRN Terrence Augustine MD 650 mg at 01/16/24 1003 Atorvastatin (LIPITOR) tablet 10 mg 10 mg Oral QHS , DO 10 mg at 01/16/242057 carveDILOL (COREG) tablet 25 mg 25 mg Oral BID , DO 25 mg at 01/16/24 171 Insulin lispro (HUMALOG) injection Subcutaneous 4x daily w/meals, HS Himanshu Rouse MD 3 Units at 01/16/242057 And Insulin lispro (HUMALOG) injection Subcutaneous PRN Himanshu Rouse MD 5 Units at 01/15/241820 And Dextrose 50% injection 7.5-25 g 7.5-25 g Intravenous As directed PRN Himanshu Rouse MD And glucose (GLUTOSE) 40 % oral gel 1-2 Tube 1-2 Tube Oral As directed PRN Himanshu Rouse MD Diltiazem (CARDIZEM CD) capsule XL 120 mg 120 mg Oral Daily , DO 120 mg at 01/16/24 0841 DULoxetine (CYMBALTA) capsule DR 30 mg 30 mg Oral Daily , DO 30 mg at 01/16/24 0843 Enoxaparin Sodium (LOVENOX) injection 40 mg 40 mg Subcutaneous Q24H Terrence Augustine MD 40 mg at 01/16/24 0841 insulin glargine-yfgn (SEMGLEE) injection 8 Units 8 Units Subcutaneous QHS Terrence Augustine MD 8 Units at 01/16/242058 Lisinopril (PRINIVIL) tablet 20 mg 20 mg Oral Daily , DO 20 mg at 01/16/24 0841 Melatonin tablet 6 mg 6 mg Oral QHS PRN Terrence Augustine MD 6 mg at 01/16/242057 Meropenem (MERREM) 2 g in Sodium chloride 0.9%, with overfill 110 mL (total volume) IVPB 2 g Intravenous Q12HNS Rin Morales, RPH 36.7 mL/hr at 01/17/24 0618 2 g at 01/17/24 0618 methimazole (TAPAZOLE) tablet 5 mg 5 mg Oral Once per day on Sunday Terrence Augustine MD 5 mg at 01/16/24 0840 Pantoprazole (PROTONIX) tablet DR 40 mg 40 mg Oral Daily Sunitha Brian Jory, DO 40 mg at 01/16/24 0841 Sodium chloride 0.9% IV solution 250 mL 250 mL Intravenous PRN Terrence Augustine MD 20 mL/hr at 01/16/24 1750 250 mL at 01/16/24 1750 Vancomycin HCl in NaCl (VANCOCIN) 1,000 mg in 200 ml NS premix IVPB 1,000 mg Intravenous Q24H Lina Stubbs, RPH 100 mL/hr at 01/16/24 2252 1,000 mg at 01/16/242251 DATA REVIEW: CBC: Chem: Bun/Creat/Cl/CO2/Glucose: --/--/--/--/278 (01/15 2041) Coags: All lab, imaging, and procedure results from the last 24 hours were personally reviewed. Signed, Martin Kapadia III, MD Department of Pharmacy Pharmacokinetics Progress Note Patient: Kerrie Kearney Room/Bed: [facility] Assessment and Plan: Based upon drug level assessment and interpretation (steady state), I have changed the vancomycin dose and/or dosing interval to 1000 mg IV every 24 hours to start at 2230 on 01/15. A pharmacist will continue to follow and order drug levels and adjust dosing as clinically appropriate. I have modified the orders in IHIS to reflect the above plan. Vancomycin regimen at time of level: Vancomycin 1250 mg IV every 24 hours Last Dose Administered: Dose: Date: Time: 1250mg 01/15 2132 Levels: 20.9 mcg/mL drawn at 2120 on 01/15. Level was a trough drawn ~1hr late. Most Recent Labs: WBC Count Date Value Ref Range Status 01/16/2024 6.67 3.99 - 11.19 K/uL Final BUN Date Value Ref Range Status 01/16/2024 19 7 - 25 mg/dL Final Creatinine Date Value Ref Range Status 01/16/2024 1.05 0.50 - 1.20 mg/dL Final I/O last 3 completed shifts: In: 600 [P.O.:600] Out: - Estimated Creatinine Clearance: 40 mL/min (by C-G formula based on SCr of 1.05 mg/dL). Ongoing Vancomycin Monitoring: The following trough goal is recommended for ongoing therapy based on the suspected/confirmed source of infection and today s calculations: Goal trough range: 15-20 mcg/mL If therapy is to be continued after discharge, please contact pharmacy for appropriate dosing. Please feel free to contact me with any further questions. Name: Lina Stubbs RPH Phone: [phone] Date/Time: 01/16/2024 10:07 PM Acute Care Speech Language Pathology Treatment Diet Recommendations: Recommended Method of Nutrition: PO Recommended Diet Grade: regular Recommended Liquid Consistency: liquid- thin (IDDSI 0) Recommended Medication Administration (as appropriate per MD): Per patient preference Type of Cues/Supervision: intermittent supervision Assistance: nurse/aide, family Best mode of Communication: verbal Discharge Recommendations: Based on the below outcome measures/assessment score(s) and FRAME CLEANER clinical judgment, discharge destination recommendation is: no skilled FRAME CLEANER services anticipated Acute FRAME CLEANER Outcomes Tracking Communicate basic wants and needs?: yes Demo insight/appreciation of deficits?: no Complete basic problem solving?: no Current therapy frequency recommendation in acute: Swallow Therapy Frequency: no therapy warranted Clinical Impression: Kerrie Kearney appears to present with functional oropharyngeal swallow function. Denied subjective concerns. Subjective information: Upright in chair, family present. They denied concerns since upgrade and SO reported she ate an embarassing amount Pain: ,Nonverbal indicator not present Precautions: Patient Safety Communication Prior to Visit: Nursing Lines/Tubes/Drains (Rehab Status): Telemetry Existing Precautions/Restrictions: fall Respiratory Status: O2 Sat (%): 97 % (01/15 1220) O2 Device: room air (01/15 1055) Acute FRAME CLEANER Goals Plan of Care by MAYRA Prakash at 01/16/2024 2:40 PM Version 1 of 1 Problem: Dysphagia Goal: Ongoing Assessment - Patient will participate in ongoing assessment by accepting various PO consistency trials with appropriate participation/oral acceptance and no significant respiratory complications to determine readiness for diet advancement vs MBS. Addressed via regular solids - self-fed trials. With redirection to support attention to po, acceptance, mastication, oral clearance were independent. She appeared to initiate a pharyngeal swallow. No overt signs of penetration/aspiration. Pt denied globus sensation. Unable to fade cues to redirect attention. However, skilled FRAME CLEANER services no longer appear warranted as long as patient has assist to support attention to po intake. Outcome: Met Patient Education/Instruction Learners: Patient, Spouse Education provided: Dysphagia recommendations/impressions Teaching method: Verbal Education/Instruction, Demonstration Learner response: Applies knowledge Learning preferences: Auditory Learning considerations: No barriers/ready to learn Patient Instruction/Education comments: FRAME CLEANER signing off, positioning during po intake Plan for next session: sign off FRAME CLEANER Outcomes: FOIS7 Speech Language Pathologist: MAYRA Prakash Time In: 1415 Time Out: 1430 Total Visit Time: 15 minutes Total Treatment Time (skilled, billable minutes): 15 minutes Non-billable assistance during session: na Assisted by during session: na PPE used during patient interaction: gloves Patient location/status at end of session: chair Patient alarms at end of session: none altered Needs in reach. FRAME CLEANER Evaluation and Treatment Time Swallowing Dysfunction Treatment 31055: 15 Upon discontinuation of Acute Care Speech Therapy Services or patient discharge from the hospital this note represents the current Speech Therapy Discharge Summary [facility] Medicine Daily Progress Note Physician: Martin Kapadia III, MD, Attending Physician, 6 service Today's Date: 01/16/2024 Patient: Kerrie Kearney, : 1945, Admitted: 01/11/2024, Length of stay: 5 days IMPRESSION/PLAN: Kerrie Kearney is a 78 y.o. female with a history of chronic cognitive impairment, hyperthyroidism, DMt2, and HTN who presented on 01/11/2024 as a transfer from [place] for further evaluation of encephalopathy and fevers with concerns for meningitis. Acute Metabolic Encephalopathy / Presumed Meningitis: Presented with acute confusion, headaches, and difficulty ambulating. Febrile to 101F at OSH with imaging. Head CT negative for acute pathology. MRI showed some diffuse restricted diffusion in the cerebral cortex bilaterally most pronounced in the parietal occipital regions - possibly due to inflammation. LP (after a few days of atbx) was largely unrevealing with 5 WBC (44% PMNs), 248 RBC, protein 88, glucose 143, negative culture, and negative encephalitis panel. Ultimately, exact etiology of presentation unclear - but clinically highly concerning for meningitis. -Evaluated by Neurology and ID. Plans are to complete 14 days of antibiotics empirically for meningitis (end date: 01/19). Will plan to keep her here through that date (as not a candidate for PICC and seems unnecessary to pursue a tunneled line with only a few days of atbx left). -Continue sitter for now given some ongoing impulsivity -Continue delirium precautions HTN: Normotensive on admission. Home regimen: Coreg 25mg BID, Diltiazem 120mg, Lisinopril 20mg. -Continue home Coreg, Diltiazem, and Lisinopril DMt2 with Hyperglycemia: Hyperglycemic in the 500s on presentation - with A1c 10.6%. Previously on Metformin and Glipizide at home. -Evaluated by Endocrinology and started on Insulin. Plan to continue at discharge. -Continue Lantus and SSI for now (plan to switch to fixed dosing at discharge) -Appreciate DM educator and RN's assistance with teaching -Will need all insulin / glucometer supplies at discharge Hyperthyroidism: TSH and fT4 wnl at OSH. Continue home Methimazole. Thyroid Nodules: CTA at OSH revealed incidental 2.8cm L thyroid nodule. Subsequent US showed multinodular goiter with up to 2.3 cm left thyroid TI-RAD 3 lesion and 1.2cm right thyroid TI-RA 4 lesion. Follow up as outpatient for further management / repeat US in 1 year. Oropharyngeal Dysphagia: Has had some dysphagia in setting of encephalopathy but has subsequently been cleared for regular diet. Continue to monitor. Anxiety: Continue home Cymbalta Hyponatremia: 2/2 dehydration and hyperglycemia. Improved with hydration. Continue to monitor. Chronic Anemia: 2/2 chronic disease and phlebotomy. Otherwise, no overt blood loss noted. Continue to monitor FEN: DIET REGULAR DVT Prophylaxis: SubQ Lovenox Code status: Full Code Dispo: due to logistical reasons, will remain inpatient while completing course of IV antibiotics. SNF strongly recommended at discharge. Working with to get him on board with this plan INTERVAL HISTORY/SUBJECTIVE: Assumed care today from prior provider. No acute issues over night. On my exam, she oriented to person. She was able to select hospital from multiple choices for location. She guessed that the year was 1914... she denied any pain or dyspnea. OBJECTIVE: Vitals: [range] current Temp: [97 F (36.1 C)-98.2 F (36.8 C)] 97.3 F (36.3 C) Pulse (Heart Rate): [67-74] 67 Resp Rate: [15-18] 16 BP: (143-161)/(63-74) 145/69 O2 Sat (%): [96 %-98 %] 96 % O2 Device: room air (01/16/24 0607) Flow (L/min): 0 (01/12/24 1903) Intake/Output last 3 shifts: I/O last 3 completed shifts: In: 637 [P.O.:637] Out: 500 [Urine:500] Body mass index is 27.59 kg/m . Physical Exam: General: Alert. In no acute distress. Respiratory: Normal Respiratory effort. Lungs clear to auscultation bilaterally. Cardiovascular: Normal rate & regular rhythm. Normal S1 and S2. No murmurs, rubs, or gallops appreciated. Abdomen: Soft, non-distended, non-tender. No rebound/guarding. Normal bowel sounds. Extremities: Warm and well perfused. No peripheral edema Neurological: Oriented to person - and place with multiple choice. Not year. Clear memory deficits noted. No focal motor deficits appreciated. Skin: No acute rashes or excoriations noted on exposed skin. CURRENT MEDICATIONS: Current Facility-Administered Medications Medication Dose Route Frequency Provider Last Rate Last Admin Acetaminophen (TYLENOL) tablet 650 mg 650 mg Oral Q6H PRN Terrence Augustine MD 650 mg at 01/15/242035 Atorvastatin (LIPITOR) tablet 10 mg 10 mg Oral QHS , DO 10 mg at 01/15/242035 carveDILOL (COREG) tablet 25 mg 25 mg Oral BID , DO 25 mg at 01/15/24 172 Insulin lispro (HUMALOG) injection Subcutaneous 4x daily w/meals, HS Himanshu Rouse MD 3 Units at 01/15/242040 And Insulin lispro (HUMALOG) injection Subcutaneous PRN Himanshu Rouse MD 5 Units at 01/15/241820 And Dextrose 50% injection 7.5-25 g 7.5-25 g Intravenous As directed PRN Himanshu Rouse MD And glucose (GLUTOSE) 40 % oral gel 1-2 Tube 1-2 Tube Oral As directed PRN Himanshu Rouse MD Diltiazem (CARDIZEM CD) capsule XL 120 mg 120 mg Oral Daily , DO 120 mg at 01/15/24923 DULoxetine (CYMBALTA) capsule DR 30 mg 30 mg Oral Daily , DO 30 mg at 01/15/24923 Enoxaparin Sodium (LOVENOX) injection 40 mg 40 mg Subcutaneous Q24H Terrence Augustine MD 40 mg at 01/15/24929 insulin glargine-yfgn (SEMGLEE) injection 8 Units 8 Units Subcutaneous QHS Terrence Augustine MD 8 Units at 01/15/242035 Lisinopril (PRINIVIL) tablet 20 mg 20 mg Oral Daily , DO 20 mg at 01/15/24923 Melatonin tablet 6 mg 6 mg Oral QHS PRN Terrence Augustine MD 6 mg at 01/13/242114 Meropenem (MERREM) 2 g in Sodium chloride 0.9%, with overfill 110 mL (total volume) IVPB 2 g Intravenous Q12HNS Rin Morales, RPH 36.7 mL/hr at 01/16/24 0605 2 g at 01/16/24 06 methimazole (TAPAZOLE) tablet 5 mg 5 mg Oral Once per day on Sunday Terrence Augustine MD 5 mg at 01/14/24 09 Pantoprazole (PROTONIX) tablet DR 40 mg 40 mg Oral Daily , DO 40 mg at 01/15/24923 Sodium chloride 0.9% IV solution 250 mL 250 mL Intravenous PRN Terrence Augustine MD 20 mL/hr at 01/14/242145 250 mL at 01/14/242145 Vancomycin HCl in NaCl (Vancocin) 1,250 mg 287.5 ml premade IVPB 1,250 mg Intravenous Q24H Samantha Vallejo, [facility] 143.8 mL/hr at 01/15/242131 1,250 mg at 01/15/242131 DATA REVIEW: CBC: WBC/Hgb/Hct/Plts: 6.67/11.1/35.4/249 (01/15 609) Chem: Bun/Creat/Cl/CO2/Glucose: --/--/--/--/276 (01/14 153) Coags: All lab, imaging, and procedure results from the last 24 hours were personally reviewed. Signed, Martin Kapadia III, MD Acute Physical Therapy Treatment Prior Gross Functional Mobility: used device Current AM-PAC score(s): CURRENT AM-PAC Mobility Raw Score: 16 Based on the above AM-PAC score(s) and PT clinical judgment, patient is a good candidate for discharge to [facility] Barriers to discharge home: Patient needs assistance with functional mobility Mobility equipment available at home: rollator, straight cane ADL equipment available at home: shower chair, grab bars Equipment needed for discharge: to be determined Current therapy frequency recommendation in acute: Therapy Frequency: 5 times a week Precautions and Weightbearing Status: Existing Precautions/Restrictions: fall Telemetry Patient Safety Communication Prior to Visit: Nursing Subjective: Pt agreed to PT Pain: General Pain Documentation (Adult, OB, Peds) Presence of Pain: not present: non-verbal indicator of pain/discomfort Presence of Pain Score (Auto-calculated): 0 Objective/Observation: Vitals/Vitals Responses to Treatment: no adverse response to PT O2 Device: room air Cognition Overall Cognitive Status: Impaired Arousal/Alertness: Delayed responses to stimuli Orientation Level: Oriented to person, Oriented to place (picked year with 2 choices) Following Commands: Follows one step commands with repetition, Follows one step commands with increased time Safety Judgment: Decreased awareness of need for safety, Decreased awareness of need for assistance Awareness of Errors: Assistance required to identify errors made, Assistance required to correct errors made Deficits: Decreased awareness of deficits Extremity Assessments: See PT Evaluation flowsheet for Extremity Measurement updates. Skin and Edema: Balance: Sitting Balance Static Sitting-Level of Assistance: Standby Skilled Rationale: Verbal cues, Tactile cues, Hand placement, Technique of activity Sitting Balance Skilled Intervention/Details: Static sitting with SBA with flexed posture noted Mobility Assessment/Intervention: Supine to Sit Mobility Clare Level: Supine->Sit: stand-by assist Skilled Rationale: Verbal cues, Tactile cues, Hand placement, Full extension to upright positioning/posture, Technique of activity Skilled Intervention/Details: Supine->Sit: supine to sit to EOB with SBA and increased time Transfer Assessment/Intervention: Sit to Stand Transfer Clare Level: Sit->Stand: minimum assist (75% patient effort) Assistive Device: Sit->Stand: gait belt, 2 wheeled walker Skilled Rationale: Verbal cues, Tactile cues, Hand placement, Full extension to upright positioning/posture Skilled Intervention/Details: Sit->Stand: x1 trial from EOB, x1 trial from toilet. Verbal/tactile cues for instruction on hand placement and faciliation of anterior weight shift required to initiate transfer. Gait/Functional Mobility Assessment/Intervention: Gait Assessment Clare Level: Gait: (min to mod A) Assistive Device: Gait: gait belt, 2 wheeled walker Ambulation Distance (Feet): (20, seated break, 20 feet') Gait Deviations Identified: decreased chris, decreased gait speed, decreased heel strike, decreased step length, decreased stride length, flexed posture Gait Skilled Rationale: verbal, tactile, upright posture, increase step length, keeping hands on assistive device, proximity of assistive device, increase foot clearance Skilled Intervention/Details - Gait: verbal/tactile cues for faciliation of gait mechanics (increased bilat foot clearance, increased bilat step length), correction of flexed posture, and WW management. Pt min A for amb with mod A required with promotion of upright posture. Outcome Score(s): CURRENT [facility] Basic Mobility Inpatient Short Form Turning over in bed: 3 - A Little Assistance Moving from lying on back to sittin - A Little Assistance Moving to and from bed to chair: 3 - A Little Assistance Sitting/standing from chair: 3 - A Little Assistance Walk in hospital room: 3 - A Little Assistance Climbing 3-5 steps with a railin - Total Assistance CURRENT [facility] Mobility Raw Score: 16 CURRENT [facility] Mobility Functional Limitation: 54.16% Impaired in Basic Mobility Assessment & Plan: Pt tolerated PT session well with focus on sitting balance, sit to/from stand transfers, gait training, and supine to sit transfer . Pt would benefit from continued PT services to address deficits/impairments including: decreased strength, decreased balance, decreased functional endurance, impaired bed mobility, and altered gait mechanics in order to progress I with functional mobility. Patient Instruction/Education this session: Learners: Patient, Spouse Education provided: Fall precautions, Plan of care, Discharge recommendations Teaching method: Verbal Education/Instruction Patient Instruction/Education comments: Pt's spouse educated on PT recommendation of SNF and reasoning for recommendation. Plan for next session: progress amb, transfers, balance Acute PT Goals Plan of Care by Karuna Masters PT at 01/16/2024 12:06 PM Version 1 of 1 Problem: PT - General Goals Goal: Supine <-> Sit Transfers - Patient will perform supine to/from sit transfers with standby assistance and without use of hospital bed features in order to improve functional mobility and safety. Outcome: Progressing Goal: Sit <-> Stand Transfers - Patient will perform sit to/from stand transfers with standby assistance and wheeled walker in order to improve functional mobility and safety. Outcome: Progressing Goal: Ambulation - Patient will ambulate 100 feet with standby assistance and wheeled walker to improve ability to safely navigate home and community. Outcome: Progressing PT treatment consisted of the following to progress towards the above goal(s): PT Evaluation and Treatment Time Therapeutic Activity Time Entry: 14 Gait Training Time Entry: 10 Treating Therapist: Karuna Masters PT Additional Details: PT Co-Eval/Treatment Information Co-evaluation/co-treatment performed?: Yes, simultaneous billable skilled care was necessary due to medical complexity and functional deficits Other discipline: OT Rationale for need to co-eval/treat: postural control Co-treatment goal focus: balance, mobility, transfer PPE used during patient interaction: gloves Patient location at end of session: chair Alarms on at end of session: chair alarm, RN aware Needs in reach. Time In: 1031 Time Out: 1055 Total Visit Time: 24 minutes Total Treatment Time (skilled, billable minutes): 24 minutes Upon discontinuation of Acute Care Physical Therapy Services or patient discharge from the hospital this note represents the current Physical Therapy Discharge Summary. Acute Occupational Therapy Treatment Prior Gross Functional Mobility: used device Current AM-PAC score(s): CURRENT AM-PAC Activity Raw Score: 16 Based on the above AM-PAC score(s), and OT clinical judgment, discharge destination recommendation is: Jail Facility *If pt and spouse decide to discharge home, pt would benefit from initial 24 hour care, use of AE/DME (noted below), and home health services. Barriers to discharge home: Patient needs assistance with functional mobility, Patient needs assistance with ADLs, Patient needs assistance with IADLs (see note below), Patient needs assistance with medication management, Patient needs assistance with self-care for medical condition (see note below), Cognitive impairments that impact safety (see note below) Mobility equipment available at home: rollator, straight cane ADL equipment available at home: shower chair, grab bars Equipment recommendations for discharge: 2 wheeled walker, bedside commode, bathing equipment, dressing equipment, toileting equipment Current therapy frequency recommendation(s) in acute: 5 times a week Activity Recommendations for outside of rehab session: 1 person assist with 2 wheeled walker and gait belt for short distance mobility in room. Precautions and Weightbearing Status: OT Existing Precautions/Restrictions: fall, cardiac (Exit alarm; Sitter.) Telemetry Patient Safety Communication Prior to Visit: Nursing Subjective: Pt's spouse present and reporting desire to have pt discharge home, however, reports recently experiencing several falls of his own and planning to call the fire department to assist with getting pt into the home. Pain: General Pain Documentation (Adult, OB, Peds) Presence of Pain: reports pain/discomfort Pain Location: head, headache Objective/Observation: Vitals/Vitals Responses to Treatment: No adverse reactions noted. O2 Device: room air Vision Screen Currently wearing corrective lenses: No Visual Impairments Observed?: No Speech Speech: no gross deficits noted Hearing Hearing: hard of hearing (Mild.) Cognition Overall Cognitive Status: Impaired Arousal/Alertness: Delayed responses to stimuli Orientation Level: Oriented to person, Oriented to place (Pt able to report current month, but not year.) Following Commands: Follows one step commands with increased time, Follows one step commands with repetition Safety Judgment: Decreased awareness of need for assistance, Decreased awareness of need for safety Awareness of Errors: Decreased awareness of errors Deficits: Decreased awareness of deficits Attention Span: Difficulty attending to directions, Difficulty dividing attention Memory: Decreased short term memory Problem Solving: Assistance required to identify errors made, Assistance required to generate solutions, Assistance required to implement solutions Cognition Comments: Delayed processing rate/motor planning; Moderate confusion; Overall, decreased insight into deficits/safety awareness; Pt's spouse present and reporting pt is presenting at baseline level in relation to cognition. ADL Assessment/Intervention: Grooming Assistance: Contact guard assist Grooming Location: standing at sink Grooming Deficit: Brushing hair, Problem solving, Follows safety/precautions, Balance, Retrieval of items, Generalized weakness, Activity tolerance, Increased time to complete, Wash/dry hands Grooming Skilled Rationale (Verbal/Tactile/Visual/Demonstrati on): Setup, Cues for increased safety, Technique of activity, Cues for cognitive deficit, Facilitate postural control, Facilitate positioning Grooming Intervention/Details: Pt mostly requiring CGA to ensure standing balance maintenance, assuming a more flexed posture with increased participation in ADL activities and fatigue onset. Mild cues also required for overall efficient/safe performance of tasks with pt appearing mildly delayed in processing rate/motor planning. Toilet Assistance: Moderate Toileting Location: toilet Toileting Deficit: Perineal hygiene, Problem solving, Follows safety/precautions, Balance, Generalized weakness, Activity tolerance, Increased time to complete Toilet Skilled Rationale (Verbal/Tactile/Visual/Demonstrati on): Setup, Cues for increased safety, Technique of activity, Cues for cognitive deficit, Facilitate postural control, Facilitate positioning Toileting Intervention/Details: Pt required minimal assistance for safe toilet transfer, completing aspects of hygiene/mercedes-care seated with CGA for seated balance maintenance. However, further moderate assistance required to ensure thorough hygiene/mercedes-care completed in standing position. Pt appearing mostly limited in performance by deficits in dynamic standing balance/activity tolerance and cognitive processing/problem solving. Pt also required moderate assistance to don/re-don underwear pre/post toileting task. Extremity Assessments: See OT Evaluation flowsheet for Extremity Measurement updates. Balance: Sitting Balance Static Sitting-Level of Assistance: Standby Dynamic Sitting-Level of Assistance: Contact guard Sitting Balance Skilled Intervention/Details: Seated EOB for about 5 minutes with no difficulty, mostly requiring cues for safety. Standing Balance Static Standing-Level of Assistance: Contact guard Dynamic Standing-Level of Assistance: Minimum assistance Standing Balance Skilled Intervention/Details: Standing for about 4-5 minutes at a time (X several trials) while completing functional transfers/mobility and toileting, mostly requiring cues for safety and with initial hip extension and assumption of upright versus kyphotic posture. Skin and Edema: Skin Integrity Skin Integrity Description: WFL (Visible areas.) Edema Edema: none noted Mobility Assessment/Intervention: Supine to Sit Mobility Clare Level: Supine->Sit: stand-by assist Bed Features/Set-up: Supine->Sit: Head of bed elevated, Use of bed rail Skilled Rationale: Cues for increased safety, Technique of activity, Verbal cues Skilled Intervention/Details: Supine->Sit: Cues for safety; Mildly increased time/effort to align hips. Transfer Assessment/Intervention: Sit to Stand Transfer Clare Level: Sit->Stand: minimum assist (75% patient effort) (x 1 trial from EOB.) Assistive Device: Sit->Stand: gait belt, 2 wheeled walker Skilled Rationale: Cues for increased safety, Technique of activity, Full extension to upright positioning/posture, Facilitate anterior shift, Upright gaze/neck extension, Tactile cues, Hand placement, Verbal cues Skilled Intervention/Details: Sit->Stand: Cues for safety/hand placement on walker, as well as assisting with initial hip extension and assumption of upright versus kyphotic posture. Stand to Sit Transfer Clare Level: Stand->Sit: minimum assist (75% patient effort) Assistive Device: Stand->Sit: gait belt, 2 wheeled walker Skilled Rationale: Cues for increased safety, Technique of activity, Controlled descent for sitting, Tactile cues, Verbal cues, Hand placement Toilet Transfer Clare Level: Toilet: minimum assist (75% patient effort) Assistive Device: Toilet: 2 wheeled walker, gait belt, grab bars Skilled Rationale: Cues for increased safety, Technique of activity, Upright gaze/neck extension, Controlled descent for sitting, Full extension to upright positioning/posture, Facilitate anterior shift, Tactile cues, Verbal cues, Hand placement Skilled Intervention/Details: Toilet: Cues for safety/hand placement on walker/grab bars, as well as assisting with initial hip extension and assumption of upright versus kyphotic posture upon standing and eccentric control/body alignment upon descent. Functional Mobility: Functional Mobility Clare Level: Functional Mobility/Gait: minimum assist (75% patient effort) Assistive Device: Functional Mobility/Gait: 2 wheeled walker, gait belt (Non-skid socks.) Functional Mobility Distance: Distance needed to access restroom Skilled Intervention/Details - Functional Mobility/Gait: No LOB/SOB experienced; Mild unsteadiness with pt requiring cues to ensure maintenance of upright posture (often kyphotic and with attempts to rest forearms on walker with fatigue onset) and for overall walker management (body positioning within walker and navigating in environment). Pt mobilizes at a decreased rate overall. Outcome Score(s): CURRENT [facility] Daily Activity Inpatient Short Form Putting on/Taking Off Lower Body Clothin - A Lot of Assistance Bathin - A Lot of Assistance Toiletin - A Lot of Assistance Putting on/Taking Off Upper Body Clothin - A Little Assistance Groomin - A Little Assistance Eatin - No Assistance CURRENT [facility] Activity Raw Score: 16 CURRENT [facility] Activity Functional Limitation/Modifier: 53.32% Currently Impaired in Daily Activity - CK Assessment & Plan: Pt is demonstrating Fair progress in occupational therapy goals this date, primarily in bed mobility, static seated balance, dynamic seated balance, static standing balance, left UE ROM, right UE ROM, vision, speech, and alertness. However, pt's barriers to discharge and overall inhibitors in ADL/IADL/functional transfer performance/independence include pt's deficits in endurance/activity tolerance, dynamic standing balance, functional transfers, functional mobility, left UE coordination, right UE coordination, and cognition. Pt would benefit from continued acute occupational therapy services prior to discharge to address noted deficits and progress towards achieving increased independence in occupational performance. Patient Instruction/Education this session: Learners: Patient, Spouse Education provided: Balance training, Bed mobility, Discharge recommendations, Plan of care, Positioning, Role of this discipline, Safety, Activity outside of therapy, Fall precautions, Functional transfers, Gait training safety Plan for next session: Therapist to address further dynamic standing balance/functional mobility, lower body ADL engagement, and cognitive functioning. Acute OT Goals Plan of Care by Fanny Fregoso OT at 01/16/2024 10:32 AM Version 1 of 1 Problem: OT - ADLs Goal: Lower Body Dressing - Patient will complete lower body dressing tasks with standby assistance using adaptive equipment/compensatory strategies as needed for improved ability to complete self-care activities. Outcome: Ongoing Goal: Bathing - Patient will perform full body bathing routine with standby assistance while seated for improved ability to complete self-care activities Outcome: Ongoing Problem: OT - Strength/ROM Goal: Strength/ROM ADL Participation - Patient will participate in UE exercise program with independence to prevent deconditioning while in hospital and to max UE ROM/Coordination/strength for ADLs. Outcome: Ongoing Problem: OT - Transfers Goal: Transfers Toilet/ Bedside Commode - Patient will transfer to/from toilet/bedside commode with standby assistance for improved ability to safely complete ADLs. Outcome: Progressing Problem: OT - Endurance Goal: Endurance Functional Mobility - Patient will complete distance needed for common household mobility with no greater than 0 rest breaks for improved tolerance to safely complete I/ADL's Outcome: Progressing Problem: OT - Cognition Goal: Cognition Simple ADL - Patient will demonstrate improved cognition, completing simple ADL task for 8-10 minutes with no greater than min cues required to maintain attention. Outcome: Progressing OT treatment consisted of the following to work and progress towards the above goal(s): OT Evaluation and Treatment Time Self Care/Home Management (ADLs) Time Entry: 12 Therapeutic Activity Time Entry: 12 Treating Therapist: Fanny Fregoso OT Additional Details: OT Co-Eval/Treatment Information Co-evaluation/co-treatment performed?: Yes, simultaneous billable skilled care was necessary due to medical complexity and functional deficits Other discipline: PT Rationale for need to co-eval/treat: cognitive issues, coordination issues, postural control Co-treatment goal focus: balance, mobility, transfer, endurance, coordination, self-care, cognition, strength PPE used during patient interaction: facemask, gloves Patient location at end of session: chair Alarms on at end of session: RN aware, chair alarm Needs in reach. Time In: 1031 Time Out: 1055 Total Visit Time: 24 minutes Total Treatment Time (skilled, billable minutes): 24 minutes Upon discontinuation of Acute Care Occupational Therapy Services or patient discharge from the hospital this note represents the current Occupational Therapy Discharge Summary. [facility] Progress Note Patient: Kerrie Kearney, : 1945, Impression / Plan Kerrie Kearney is a 78 y.o. female with PMH HTN, DM2, hyperthyroidism who presented from OSH on 01/07 with altered mental status, headache, and fever. Transferred to [facility] for LP, neurology and further care due to concern for meningitis or encephalitis. Acute metabolic encephalopathy, fever, headaches - improved Delirium, on top of suspected nursing home cognitive decline Suspected bacterial meningitis -Per OSH records, had reported patient acting different, difficulty ambulating, headaches for a couple days prior. Febrile in OSH ED to 101. Concern for meningitis or encephalitis. OSH unable to do LP due to scoliosis so transferred to [facility] -Mental status overall much improved from OSH, had garbled speech, confusion, restlessness, unable to state her name, reaching for things in the air. She remains A&Ox1-2 with poor memory, says she is currently at baseline and the best he has seen her -CT head and CTA negative -For infectious w/up, UA and CXR unremarkable, COVID/flu/RSV neg. Blood cx sent -Mild leukocytosis of 12.3 on admission, lactate 2.1 -HIV, RPR negative -MRI brain showed diffuse restricted diffusion in cerebral cortex bilaterally most pronounced in parietal occipital regions of indeterminate etiology -LP under fluoro completed 01/10 -Only 5 WBCs. Elevated protein and glucose -Meningitis/encephalitis panel negative -Autoimmune encepahlopathy panel in process, lyme negative -Appreciate Neurology and ID - Given substantial improvement in mental status after receiving abx will treat for presumed meningitis although cultures were negative (suspect LP profile was not overtly infectious because she had already received 3 days of empiric treatment prior to LP) -OPAT note placed 01/13: Meropenem 2g q12h and vancomycin x 14 days (EOT 01/20/2024) -Unfortunately, PICC team evaluated patient and her veins are too small for PICC or midline -Discussed with ID and no oral abx options for patient -SNF unlikely to take central line. Case management checking with SNFs to see if they would take her with a peripheral IV -PT/OT recommends SNF however patient and prefer home with home health -I don't think patient or will be able to manage IV abx at home. After today she has 5 days left of IV abx so options are either SNF (looking to see if they will take her with PIV) or stay in hospital until completion of abx -If remains inpatient until completion of IV abx, family prefers home with home health so then could discharge home on 01/20 Dysphagia -Complicated by AMS. Has since improved, speech cleared her for regular diet Hyperglycemia, with previously non insulin dependent DM2- history of DM type 2 on glipizide and metformin only -A1C 10.6% at OSH on admission -Glucose in 500s at OSH. S/p IVFs and insulin -Continue glargine 8 units for now, lispro SSI, will uptitrate as needed -Endocrine consulted, initially recommend basal bolus regimen with SSI at discharge - personally discussed with them today regarding a simpler regimen, seems overwhelmed with SSI and I don't think he could manage at home -Plan for glargine 8 units, scheduled lispro 2 units for small meal/4 units for big meal - might need titration prior to discharge -linseed oil refiner consulted to help teach how to do insulin -insulin is new for patient, she will need all new supplies prior to discharge Hyperthyroidism, with left thyroid nodule - cont Methimazole. TSH/T4 wnl at OSH. 2.8cm L thyroid nodule incidentally noted on CTA -Thyroid ultrasound done at OSH shows multinodular goiter with up to 2.3 cm left thyroid TI-RAD 3 lesion and 1.2cm right thyroid TI-RA 4 lesion for which 1 year follow up ultrasound is recommended HTN: Continue coreg, resumed home lisinopril and diltiazem Depression/anxiety: continue home duloxetine GERD: home PPI HLD: statin Resolved at OSH: Hyponatremia, mild RICK: Cr 1.4 on admission, unclear baseline but has now trended down to 1. Continue to monitor Complexity. Any conditions listed below are present on admission unless otherwise specified. . DVT prophylaxis with lovenox Anticipated Disposition: TBD - while on IV abx only options are SNF (if will take her with peripheral IV) or stay in hospital until abx completed on 01/19. After that, pt and family prefer home with home health Code status is Full Code Interval History / Subjective Pt seen and examined at bedside. Laying in bed, feels ok. at bedside. She is able to tell me name and place but disoriented to time and situation, similar to yesterday. says this is baseline. She has no complaints Objective Temp: [97 F (36.1 C)-97.9 F (36.6 C)] 97 F (36.1 C) Pulse (Heart Rate): [58-78] 74 Resp Rate: [15-17] 15 BP: (131-194)/(62-77) 143/63 O2 Sat (%): [97 %-100 %] 98 % Physical Exam General: awake and alert, calm, NAD, pleasantly confused Cardiac: RRR Lungs: CTAB, normal effort Abdomen: soft, nontender, nondistended, +BS Extremities: no LE edema Neuro: A&Ox1-2 to self and being in the hospital but not which one, disoriented to time and situation, follows commands easily Data Review WBC/Hgb/Hct/Plts: --/--/--/252 (01/14 333) Bun/Creat/Cl/CO2/Glucose: --/--/--/--/253 (01/13 2139) Sunitha Corley DO Division of Hospital Medicine [facility] Acute Occupational Therapy Treatment Prior Gross Functional Mobility: used device Current AM-PAC score(s): CURRENT AM-PAC Activity Raw Score: 14 Based on the above AM-PAC score(s), and OT clinical judgment, discharge destination recommendation is: Jail Facility Barriers to discharge home: Patient needs assistance with functional mobility, Patient needs assistance with ADLs, Patient needs assistance with IADLs (see note below), Patient needs assistance with medication management, Patient needs assistance with self-care for medical condition (see note below), Cognitive impairments that impact safety (see note below) Mobility equipment available at home: rollator, straight cane ADL equipment available at home: shower chair, grab bars Equipment recommendations for discharge: 2 wheeled walker, wheelchair, bedside commode, bathing equipment, dressing equipment, toileting equipment Current therapy frequency recommendation(s) in acute: 5 times a week Activity Recommendations for outside of rehab session: 2 person side-steps to bedside chair with gait belt versus quincy lift with fatigue onset. Precautions and Weightbearing Status: OT Existing Precautions/Restrictions: fall, cardiac (Sitter.) Telemetry Patient Safety Communication Prior to Visit: Nursing Subjective: Pt reported, I'm falling forward when therapist cueing pt to correct posture in standing and presenting with significant retropulsive lean. Pain: General Pain Documentation (Adult, OB, Peds) Presence of Pain: denies pain/discomfort Presence of Pain Score (Auto-calculated): 0 Objective/Observation: Vitals/Vitals Responses to Treatment: No adverse reactions noted. O2 Device: room air Vision Screen Currently wearing corrective lenses: No Visual Impairments Observed?: No Speech Speech: no gross deficits noted Hearing Hearing: hard of hearing (Mild.) Cognition Overall Cognitive Status: Impaired Arousal/Alertness: Delayed responses to stimuli Orientation Level: Oriented to person, Oriented to place (Pt reported current date as January 1941.) Following Commands: Follows one step commands with increased time, Follows one step commands with repetition Safety Judgment: Decreased awareness of need for assistance, Decreased awareness of need for safety Awareness of Errors: Decreased awareness of errors Deficits: Decreased awareness of deficits Attention Span: Attends with cues to redirect, Difficulty attending to directions, Difficulty dividing attention 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 ADL Assessment/Intervention: UE Dressing Assistance: Moderate UE Dressing Location: seated in chair UE Dressing Deficit: Retrieval of items, Attention, Initiation, Sequencing, Problem solving, Follows safety/precautions, Balance, Increased time to complete (Changing soiled hospital gown.) UE Dressing Skilled Rationale (Verbal/Tactile/Visual/Demonstrati on): Setup, Cues for increased safety, Technique of activity, Cues for cognitive deficit, Facilitate postural control, Facilitate positioning UE Dressing Intervention/Details: Pt required moderate cues/assistance in order to initiate/sequence/problem solve changing soiled hospital gown, demonstrating adequate UE ROM/strength for performance, but mostly limited by cognition. LE Dressing Assistance: Maximal LE Dressing Location: edge of bed LE Dressing Deficit: Don/doff R sock, Don/doff L sock, Retrieval of items, Initiation, Sequencing, Problem solving, Follows safety/precautions, Attention, Balance, Increased time to complete, Generalized weakness LE Dressing Skilled Rationale (Verbal/Tactile/Visual/Demonstrati on): Setup, Cues for increased safety, Technique of activity, Cues for cognitive deficit, Facilitate postural control, Facilitate positioning LE Dressing Intervention/Details: Pt unable to achieve a figure-4 position seated EOB (appears secondary to limitations in balance, LE flexibility/strength, and overall difficulty sequencing performance cognitively) and, in turn, requiring max assistance to don bilateral hospital socks safely. Increased time/effort for management. Toilet Assistance: Total Toileting Location: other, see comments (Pt found incontinent of urine upon standing trial.) Toileting Deficit: Bladder incontinence, Perineal hygiene Toileting Intervention/Details: Pt requiring moderate-max assistance x 1 and 2 wheeled walker to maintain static standing balance and, in turn, dependent for hygiene/mercedes-care performance in this position this date (completed once transferred to bedside chair). Extremity Assessments: See OT Evaluation flowsheet for Extremity Measurement updates. Balance: Sitting Balance Static Sitting-Level of Assistance: Standby Dynamic Sitting-Level of Assistance: Contact guard Sitting Balance Skilled Intervention/Details: Seated EOB for about 10 minutes while completing lower body dressing, mostly requiring cues for safety. Standing Balance Static Standing-Level of Assistance: Moderate assistance Dynamic Standing-Level of Assistance: Moderate assistance, Maximum assistance Standing Balance Skilled Intervention/Details: Standing for about 1-2 minutes at a time (x several trials) while completing functional transfers/mobility and toileting, mostly requiring cues for safety and with initial hip extension, retropulsive lean, and overall upright versus kyphotic posturing. Skin and Edema: Skin Integrity Skin Integrity Description: WFL (Visible areas.) Edema Edema: none noted Mobility Assessment/Intervention: Supine to Sit Mobility Clare Level: Supine->Sit: moderate assist (50% patient effort) Bed Features/Set-up: Supine->Sit: Head of bed elevated, Use of bed rail Skilled Rationale: Cues for increased safety, Initiation and execution of task, Technique of activity, Full extension to upright positioning/posture, Facilitate anterior shift, Tactile cues, Verbal cues, Hand placement, Sequencing, Positioning Skilled Intervention/Details: Supine->Sit: Cues for initiation/sequencing/safety, as well as assisting with upper trunk support, LEs, and aligning hips to midline. Increased time/effort for performance with pt appearing increasingly limited in performance by cognition/comprehension of task. Transfer Assessment/Intervention: Sit to Stand Transfer Clare Level: Sit->Stand: moderate assist (50% patient effort) (Moderate-max assistance; x 3 trials from EOB; x 1 trial from bedside chair.) Assistive Device: Sit->Stand: gait belt, 2 wheeled walker (Arm and arm assist.) Skilled Rationale: Cues for increased safety, Initiation and execution of task, Technique of activity, Upright gaze/neck extension, Full extension to upright positioning/posture, Facilitate anterior shift, Ischial assist, Arm in arm, Tactile cues, Verbal cues, Hand placement, Sequencing, Positioning Skilled Intervention/Details: Sit->Stand: Cues for initiation/sequencing/safety/hand placement, as well as assisting with initial hip extension, retropulsive lean, and overall upright versus kyphotic posturing. Pt completed initial stands from EOB with moderate assistance and 2 wheeled walker, but progressed to requiring max assistance (arm and arm assist, no DME) when preparing to transfer to bedside chair due to fatigue onset, weakness, and decreased comprehension of task. Pt further required moderate-max assistance x 1 and 2 wheeled walker to complete remaining transfer from bedside chair. Stand to Sit Transfer Clare Level: Stand->Sit: moderate assist (50% patient effort) Assistive Device: Stand->Sit: gait belt, 2 wheeled walker Skilled Rationale: Cues for increased safety, Technique of activity, Controlled descent for sitting, Ischial assist, Arm in arm, Tactile cues, Verbal cues, Hand placement, Sequencing, Positioning Bed-Chair Transfer Clare Level: Bed<->Chair: moderate assist (50% patient effort) (EOB>Bedside chair.) Physical Assist: Bed<->Chair: 2 person assist Assistive Device: Bed<->Chair: gait belt (Arm and arm assist; Non-skid socks.) Skilled Rationale: Cues for increased safety, Initiation and execution of task, Technique of activity, Upright gaze/neck extension, Finding/maintaining midline positioning, Controlled descent for sitting, Full extension to upright positioning/posture, Facilitate anterior shift, Ischial assist, Arm in arm, Tactile cues, Verbal cues, Hand placement, Sequencing, Positioning Skilled Intervention/Details: Bed<->Chair: Cues for initiation/sequencing/safety, as well as assisting with maintenance of upright posture and side-stepping to the right to align hips to chair prior to initiation of descent. Pt with increased difficulty sequencing/problem solving transfer, requiring increased passive assistance for safety. Pt also requiring assistance to efficiently laterally weight shift and with decreased LE clearance when side-stepping to the right. Functional Mobility: Functional Mobility Skilled Intervention/Details - Functional Mobility/Gait: Attempted mobilizing from EOB, but pt with decreased standing balance and ability to sequence steps/walker management despite therapist cueing/education. Outcome Score(s): CURRENT [facility] Daily Activity Inpatient Short Form Putting on/Taking Off Lower Body Clothin - A Lot of Assistance Bathin - A Lot of Assistance Toiletin - A Lot of Assistance Putting on/Taking Off Upper Body Clothin - A Lot of Assistance Groomin - A Little Assistance Eatin - A Little Assistance CURRENT [facility] Activity Raw Score: 14 CURRENT [facility] Activity Functional Limitation/Modifier: 59.67% Currently Impaired in Daily Activity - CK Assessment & Plan: Pt is demonstrating Fair minus progress in occupational therapy goals this date, primarily in static seated balance, dynamic seated balance, left UE ROM, right UE ROM, left UE strength, right UE strength, vision, speech, and alertness. However, pt's barriers to discharge and overall inhibitors in ADL/IADL/functional transfer performance/independence include pt's deficits in endurance/activity tolerance, bed mobility, static standing balance, dynamic standing balance, functional transfers, functional mobility, left UE coordination, right UE coordination, and cognition. Pt would benefit from continued acute occupational therapy services prior to discharge to address noted deficits and progress towards achieving increased independence in occupational performance. Patient Instruction/Education this session: Learners: Patient, Spouse Education provided: Balance training, Bed mobility, Discharge recommendations, Plan of care, Positioning, Role of this discipline, Safety, Activity outside of therapy, Fall precautions, Functional transfers Plan for next session: Therapist to address further standing balance/functional transfers and mobility, lower body ADL management with use of AE, and cognitive functioning. Acute OT Goals Plan of Care by Fanny Fregoso OT at 01/15/2024 10:11 AM Version 1 of 1 Problem: OT - ADLs Goal: Bathing - Patient will perform full body bathing routine with standby assistance while seated for improved ability to complete self-care activities Outcome: Ongoing Problem: OT - Transfers Goal: Transfers Toilet/ Bedside Commode - Patient will transfer to/from toilet/bedside commode with standby assistance for improved ability to safely complete ADLs. Outcome: Ongoing Problem: OT - Endurance Goal: Endurance Functional Mobility - Patient will complete distance needed for common household mobility with no greater than 0 rest breaks for improved tolerance to safely complete I/ADL's Outcome: Ongoing Problem: OT - Strength/ROM Goal: Strength/ROM ADL Participation - Patient will participate in UE exercise program with independence to prevent deconditioning while in hospital and to max UE ROM/Coordination/strength for ADLs. Outcome: Ongoing Problem: OT - ADLs Goal: Lower Body Dressing - Patient will complete lower body dressing tasks with standby assistance using adaptive equipment/compensatory strategies as needed for improved ability to complete self-care activities. Outcome: Progressing Problem: OT - Cognition Goal: Cognition Simple ADL - Patient will demonstrate improved cognition, completing simple ADL task for 8-10 minutes with no greater than min cues required to maintain attention. Outcome: Progressing OT treatment consisted of the following to work and progress towards the above goal(s): OT Evaluation and Treatment Time Self Care/Home Management (ADLs) Time Entry: 12 Therapeutic Activity Time Entry: 12 Treating Therapist: Fanny Fregoso OT Additional Details: OT Co-Eval/Treatment Information Co-evaluation/co-treatment performed?: No simultaneous skilled care performed PPE used during patient interaction: facemask, gloves Patient location at end of session: chair Alarms on at end of session: RN aware, Other (Sitter present.) Needs in reach. Time In: 1010 Time Out: 1034 Total Visit Time: 24 minutes Total Treatment Time (skilled, billable minutes): 24 minutes Upon discontinuation of Acute Care Occupational Therapy Services or patient discharge from the hospital this note represents the current Occupational Therapy Discharge Summary. NEUROLOGY IN-PATIENT FOLLOW-UP NOTE Reason for consultation: AMS, headache, and fever, transferred here for possible meningitis vs encephalitis, LP done yesterday, appreciate recs for any further infectious workup and abx management HPI: Kerrie Kearney is a 78 y.o. female with a PMH of HLD, HTN, DM, hyperthyroidism, who presents with with fevers, headache, and AMS with concerns for meningitis. INTERVAL HISTORY: 01/13- spoke with and patient at bedside. He reports she has short term memory issues at baseline. He feels like she is near normal but not back to baseline, would typically know location. She denies complaints, she does not remember what brought her to the hospital. PHYSICAL EXAM Temp: [96.9 F (36.1 C)-97.8 F (36.6 C)] 97.6 F (36.4 C) Pulse (Heart Rate): [56-68] 58 Resp Rate: [16] 16 BP: (108-142)/(52-67) 131/62 O2 Sat (%): [96 %-99 %] 99 % Body mass index is 27.59 kg/m . General: Laying comfortably in chair; in no acute distress. NEUROLOGICAL EXAMINATION MENTAL STATUS: awake and alert; oriented to person, place (knows she is in a hospital, but does not know which hospital or city/state), is NOT oriented to year, and month. Does know the president. good attention- can recite days of the week backwards. Normal mood and affect. Fund of knowledge intact. Delayed recall - can remember 1/3 words but with category cue only LANGUAGE/SPEECH: fluent; comprehension - Can follow simple one step commands. Has difficulty with 2 step command crossing midline (but may be affected by her poor hearing); object naming intact; repetition intact. CRANIAL NERVES CN II: Regards examiner, tracks examiner. Normal conjunctivae and lids. traffic checker III, IV and : extraocular movements intact. No nystagmus. CN VII: Face symmetric CN VIII: Hearing diminished, can only hear finger rub right next to ears MOTOR: Normal bulk. Moves all extremities antigravity. Laboratory data: Serum: Normal: RPR, HIV Abnormal: Pending: lyme CSF: TNC 5, RBC 248, glucose 143, protein 88, gram stain neg, biofire neg Normal: Lyme negative Abnormal: Pending: AIE panel Imaging/diagnostic procedures: MRI brain ([facility]): diffuse DWI changes in cerebral cortex bilaterally, most pronounced in parietal occipital region on official read, but per attending neurologist read changes may have been 2/2 motion artifact. ASSESSMENT/PLAN Impression: Kerrie Kearney is a 78 y.o. female with a PMH of HLD, HTN, DM, hyperthyroidism, who presents with with fevers, headache, and AMS with concerns for meningitis. Patient's initial presentation of BEAL, photophobia, AMS, and fever is consistent with meningitis, and is supported by the substantial improvement in mental status after receiving empiric antimicrobials. Suspect LP profile was not overtly infectious because she had already received 3 days of empiric meningitis treatment prior to the LP and was already substantially improving (from not opening eyes and not responsive to alert and oriented to name and hospital but not year). Interval: 01/13- patient continues to improve, near but not at baseline per . Given age and underlying memory issues, it may take more time for her to return to normal. Recommendations: - Would complete full course of antibiotics given improvement and CSF results were obtained while on antibiotics, we defer to ID - Neurology will follow up results of AIE panel, but seems less likely to be autoimmune - If patient/ are interested in following up at [facility], can place AMB referral to Neurology - in comments PLEASE WRITE hospital follow up, 2-4 weeks from discharge, resident clinic - [facility] if able. Otherwise if they would like to remain local, can follow up with PCP who can refer to local neurologist. - Neurology will sign off at this time Thank you for the consultation. If you have any further questions, please contact the neurology consultation resident. Andressa Carrington MD [facility] Department of Neurology Patient seen and staffed with Dr. Silva Associated attestation - Leonidas Silva MD - 01/15/2024 6:53 AM EDT Attending Physician Note (GC) I interviewed and examined this patient with the resident. I reviewed the history and exam detailed in the note. I agree with the medical decision making with the following comment(s): Interval Hx: 78yoF admitted on 01/11/2024 as outside hospital transfer for delirium and fever (c/f meningoencephalitis). Neurology was consulted for recommendations on further management. She was started on empiric antibiotics for presumed infectious meningoencephalitis. CSF was obtained after ~3 days of abx and was notable for elevated protein and glucose. Today, her at bedside reports that she is almost back to baseline mental status. She has some memory impairment at baseline. PE: On exam, she is AAOx1 (self ; knew she was in hospital but not city), follows simple (but not 2 step) commands, and was able to name/repeat No gross CN abnormality DATA: Labs/imaging reviewed CSF was obtained after ~3 days of abx on 01/11/2024 and was notable for elevated protein and glucose. OSH Brain MRI reported to have DWI changes, but on my review of images no ADC/FLAIR correlate and overall not impressive Routine EEG on 01/09/2024 was c/w nonspecific encephalopathy w/o focal/epileptiform abnormality A/P: 78yoF with delirium secondary to infectious meningoencephalitis. Her mental status is improved since starting antibiotics. -no further neurologic workup -agree with PT/OT ; prefers to care for patient at home if possible -delirium precautions -would be reasonable to complete antibiotic course due to clinical improvement ; defer to ID on antibiotic management -consider outpatient neurology referral for evaluation of baseline memory impairment Rest per resident note Neurology consult team will sign off Please contact us if any further assistance is needed Leonidas Silva MD [employer] Department of Neurology, Epilepsy Division [facility] Acute Care Speech Language Pathology Treatment Diet Recommendations: Recommended Method of Nutrition: PO Recommended Diet Grade: regular Recommended Liquid Consistency: liquid- thin (IDDSI 0) Recommended Medication Administration (as appropriate per MD): Per patient preference Swallow Strategies: (Small sips, bites and liquid washes) Type of Cues/Supervision: 1:1 supervision Assistance: nurse/aide, family Discharge Recommendations: Based on the below outcome measures/assessment score(s), FOIS, and FRAME CLEANER clinical judgment, discharge destination recommendation is: Deferred to PT/OT recomendations related to mobility Barriers to discharge home: Need for 1:1 assist to ensure safety with all PO intake Supporting factors for discharge setting: Impaired swallow function limiting nutritional status and safety with oral intake Acute FRAME CLEANER Outcomes Tracking Communicate basic wants and needs?: yes Demo insight/appreciation of deficits?: unable to determine Complete basic problem solving?: unable to determine Current therapy frequency recommendation in acute: Swallow Therapy Frequency: 3 times a week Clinical Impression: Presumed functional oropharyngeal swallow function. Recommend advancing diet to regular solids/ thin liquids with supervision to ensure small bites, liquid washes. Subjective information: Patient seen sitting upright in bed, alert and agreeable to tx. and sitter present in room. Pain: General Pain Documentation (Adult, OB, Peds) Presence of Pain: denies pain/discomfort Presence of Pain Score (Auto-calculated): 0 Precautions: Patient Safety Communication Prior to Visit: Nursing Lines/Tubes/Drains (Rehab Status): No critical lines at this time Existing Precautions/Restrictions: fall Respiratory Status: Room air O2 Sat (%): 99 % (01/13 1506) O2 Device: room air (01/13 150) Acute FRAME CLEANER Goals Plan of Care by MAYRA Cramer at 01/14/2024 3:33 PM Version 1 of 1 Problem: Dysphagia Goal: Ongoing Assessment - Patient will participate in ongoing assessment by accepting various PO consistency trials with appropriate participation/oral acceptance and no significant respiratory complications to determine readiness for diet advancement vs MBS. Outcome: Ongoing Patient Education/Instruction Learners: Patient, Spouse Education provided: Dysphagia recommendations/impressions Teaching method: Verbal Education/Instruction Learner response: Needs review Learning preferences: Auditory Learning considerations: Cognition Stroke education: Role of rehabilitation discipline Plan for next session: Determine ongoing safety/ independence with diet advancement Speech Language Pathologist: MAYRA Cramer Time In: 1533 Time Out: 1550 Total Visit Time: 17 minutes Total Treatment Time (skilled, billable minutes): 17 minutes PPE used during patient interaction: facemask, gloves Patient location/status at end of session: bed with head of bed elevated Patient alarms at end of session: none altered Needs in reach. FRAME CLEANER Evaluation and Treatment Time Swallowing Dysfunction Treatment [id number]: 17 Upon discontinuation of Acute Care Speech Therapy Services or patient discharge from the hospital this note represents the current Speech Therapy Discharge Summary Department of Pharmacy Renal Documentation Note Patient: Kerrie Kearney Room/Bed: 08/A Assessment and Plan: The patient is currently prescribed Meropenem 1 G every 12 hours. The patient's most recent renal function markers include: Weight: Wt Readings from Last 1 Encounters: 01/11/24 66.2 kg (146 lb) Estimated Creatinine Clearance: 37 mL/min (by C-G formula based on SCr of 1.12 mg/dL). Based on these values - The following adjustments have been made: meropenem 2 G every 12 hours. I have modified the orders in IHIS to reflect the above plan.. Please contact with any questions, Name: Rin Morales RPH Phone: [phone] Date/Time: 01/14/2024 1:38 PM Discharge Planning Patient Assessment Admission Assessment Patient Assessment Completed: Initial Anticipated discharge disposition: Jail Facility Reason for Admission: Kerrie Kearney is a 78 y.o. female with PMH HTN, DM2, hyperthyroidism who presented from OSH on 01/07 with altered mental status, headache, and fever. Transferred to [facility] for LP, neurology and further care due to concern for meningitis or encephalitis Is the patient able to participate in the assessment?: No Explanation of why patient is unable to participate: weakness Information source: Spouse, Review of Medical Record Information Source Name/Contact: Jaime Caio Demographics Verified and Updated: Yes Has the patient been admitted to any hospital in the last 30 days?: No Advanced Care Planning Has the patient completed Advance Directives?: Not Completed Legal Next of Kin Does the patient have a Guardian?: No Spouse: Yes Name and Contact information: Jaime Caio Outpatient Providers Does patient have a primary care physician? : No Is the patient agreeable to a referral or information on a primary care physician?: Patient Agreeable Referral for primary care physician made to: Local PCP office contacted, Resources for local provider given Does the patient follow any specialists?: Yes Reviewed and updated Care Team?: Yes No care senior stereo compiler team lead to display Environment/Caregivers Is the patient from a facility or fdc?: No Patient lives with: Spouse or Partner Living Environment: House Does the patient have a first floor set-up with bed and bathroom?: Yes Patient Caregiving Responsibilities: Spouse Patient-identified caregiver/support network: Family Who does the patient identify as a teachable caregiver(s)?: Spouse or Partner, Other Family Services Does the patient use a home health or hospice agency?: No Current with dialysis?: No Does the patient use any community programs or services?: No Does patient use DME? : walker Does the patient use oxygen?: No Does patient use medical supplies? : glucose testing strips How does patient obtain supplies?: pharmacy Would you like to add additional medical suppliers?: No Anticipated Changes Related to Illness/Injury? : No Initial ADLs Prior to Arrival What is the patient's baseline physical functioning prior to this acute illness?: independent What is the patient's baseline cognitive functioning prior to this acute illness?: assist with decision making, intermittent supervision Is the patient's baseline functioning changed by this acute illness? : No Concerns with patient being able to care for themselves at home? : Yes Are there therapy or specialists consults?: Yes Select consult type: OT, PT Does the patient's home require any home modifications for discharge? : Unknown at this time CM to recommend therapy or other consults? : No Medication Management Does the patient have prescription insurance coverage? : Yes Is the patient on Anticoagulation? : No [id number] [place] [address] [facility] [address] [facility] AT [phone] 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 : No Employed?: Yes Coping/Stress Concerns about patient s coping and stress?: No Concerns about patient s caregiver s coping and stress?: Yes Referrals to address coping or stress concerns: Other Initial Discharge Planning Anticipated discharge disposition: Jail Facility Transportation Available for Discharge: Ambulance, Private Vehicle, Family or Friend Anticipated DME: none Anticipated Services at Discharge: DME, Physical Therapy, Occupational Therapy, Outpatient follow up Patient Assessment Completed: Initial Expected Discharge Date: 01/14/2024 Care Management Plan Spouse present during this admission. Confirmed couple relocated back to [place] from [place]. Patient going to need SNF at discharge. PT/OT rec's skilled rehabilitation. Plan of IV antibiotic at discharge. Plan to re-visit discharge plan with the family. Will determine next level of care closer to discharge. Phylicia ORELLANA RN Clinical Scheduler Maintenance [phone] Outpatient Parenteral Antibiotic Therapy (OPAT): For patients who will be discharged on parenteral (IV) antibiotic therapy, please utilize the OPAT discharge orderset. For patients who are on oral antibiotic therapy, utilization of this orderset is not necessary. Diagnosis: STEWARD/STEWARDESS RAILROAD DINING CAR Meningitis Antibiotic(s) with dose: The dosing of these antibiotics is based on today's PK/PD calculations and is subject to change. Please evaluate the patient's medication list and carefully verify their dosing, and infusion rate prior to discharge. Do not hesitate to call the on-call ID Team with any questions. - Meropenem 2 gm every 12 hour as an intermittent infusion - Vancomycin (Please refer to the most recent inpatient pharmacy note for dose at discharge and for goal vancomycin level) as an intermittent infusion Duration of Therapy: Total Duration of therapy: 14 days Meropenem - Start Date: 01/07/2024; Stop Date: 01/20/2024 Vancomycin - Start Date: 01/07/2024; Stop Date: 01/20/2024 Does Patient Need Oral Antibiotic Therapy at the End of Parenteral Therapy: No OPAT ID Providers: (ID Attending): Dr. Ana England Labs: Please have the [facility] or [facility] obtain the following labs and fax to [phone], attention (ID Attending): Dr. Ana England - Chem-6 (Including serum creatinine) without Glucose every Sunday - CBC w/diff every Sunday - Vancomycin trough level. (Please refer to the most recent pharmacy note for the goal outpatient Vancomycin level; a vancomycin level and chem-6 checked every Sunday and for the first two weeks after being discharged from the hospital then every Sunday on a weekly basis) - Hepatic Function Panel every Sunday Imaging: No Follow-up: No - patient does not require follow-up in the ID Clinic If the patient is being [facility] we will defer ID Care to the Infectious Disease Providers at the [facility] facility. Please instruct the facility that if the patient requires ID Follow-up after discharge, then they should call our office to arrange for an appointment. Central Access: Can Central Access be removed at the end of therapy: Yes Iker Sanford MD INFECTIOUS DISEASE FOLLOW-UP NOTE - ID Team 2 IDENTIFYING INFORMATION PATIENT: Kerrie Kearney REFERRING PROVIDER: Sunitha Corley DO ADMIT DATE: 01/11/2024 TODAY'S DATE: 01/14/2024 REASON FOR CONSULT AMS, headache, and fever, transferred here for possible meningitis vs encephalitis, LP done yesterday, appreciate recs for any further infectious workup and abx management ASSESSMENT Kerrie Kearney is a 78 y.o. female with diabetes mellitus, hypertension, and hyperthyroidism admitted as transfer after presenting with acute encephalopathy with Infectious Diseases consulted for evaluation of STEWARD/STEWARDESS RAILROAD DINING CAR infection. Acute encephalopathy, concern for bacterial meningitis Received extensive antibiotic therapy prior to transfer with LP performed (unsuccessful with Acyclovir, Ampicillin, Cefepime, and Vancomycin started on 01/07/2024 prior to transfer). Given rapidity of symptom onset with possible preceding GI symptoms, will plan to treat with antibiotics for a total 14-day course. Given need to provide coverage of Listeria, especially with GI symptoms, will transition Ampicillin & Ceftriaxone to Meropenem to simplify dosing for home. Type 2 diabetes mellitus Estimated Creatinine Clearance: 37 mL/min (by C-G formula based on SCr of 1.12 mg/dL). RECOMMENDATIONS Diagnostics Continue to monitor previously obtained cultures. Therapeutics Discontinue Ceftriaxone and Ampicillin. Start Meropenem 2g every 12 hours (ASP: [id number]) based on current renal function. Continue Vancomycin with goal trough 15-20. End of therapy of 01/20/2024 based on start date of 01/07/2024 at [facility]. ID Team 2 will sign-off at this time. If you have any questions, please reach out to the ID Team 2. Discussed with attending, Dr. England. The ID Team pagers are available - Sunday through Sunday from 7:00am to 6:00pm. For emergent or after hour issues, please call the on-call/1st-call ID fellow pager. [facility] - [facility] Infectious Disease - Iker Sanford MD Infectious Disease Fellow, PGY-6 SUBJECTIVE/INTERVAL HISTORY at bedside today. Report that her symptoms/mental status changes happened over short period of time with confusion and she did have fevers along with possible diarrhea. Review of systems otherwise negative, unless noted above. INPATIENT MEDICATIONS ampicillin 2 g Intravenous Q6HNS Atorvastatin 10 mg Oral QHS carveDILOL 25 mg Oral BID cefTRIAXone 2 g Intravenous Q12H Diltiazem 120 mg Oral Daily DULoxetine 30 mg Oral Daily enoxaparin 40 mg Subcutaneous Q24H insulin glargine 8 Units Subcutaneous QHS Insulin lispro Subcutaneous 4x daily w/meals, HS Lisinopril 20 mg Oral Daily methimazole 5 mg Oral Once per day on Sunday Pantoprazole 40 mg Oral Daily vancomycin 1,250 mg Intravenous Q24H Allergies Not on File PHYSICAL EXAM Temp: [96.9 F (36.1 C)-97.8 F (36.6 C)] 96.9 F (36.1 C) Pulse (Heart Rate): [56-68] 60 Resp Rate: [16-18] 16 BP: (108-159)/(52-77) 142/67 O2 Sat (%): [96 %-99 %] 99 % Physical Exam Constitutional: General: She is not in acute distress. HENT: Head: Atraumatic. Cardiovascular: Rate and Rhythm: Normal rate. Heart sounds: Normal heart sounds. Pulmonary: Effort: Pulmonary effort is normal. Abdominal: General: There is no distension. Palpations: Abdomen is soft. Tenderness: There is no abdominal tenderness. Skin: General: Skin is warm. Neurological: Mental Status: She is alert. LABS AND IMAGING Lab Results Component Value Date WBC 6.23 01/14/2024 HGB 10.6 (L) 01/14/2024 HCT 34.1 (L) 01/14/2024 PLATELET 218 01/14/2024 MCV 89.7 01/14/2024 Lab Results Component Value Date SODIUM 137 01/14/2024 POTASSIUM 3.7 01/14/2024 CHLORIDE 106 01/14/2024 CO2 22 01/14/2024 BUN 21 01/14/2024 CREATSERUM 1.12 01/14/2024 Microbiologic Data (personally reviewed): Blood (01/08/2024, [place]): No growth CSF (01/11/2024): No growth Glu 143, Pr 88 TNC 5, RBC 248 MEID Negative Lyme Negative HIV (01/11/2024): Non-Reactive RPR (01/11/2024): Non-Reactive Imaging (personally reviewed): CT Head (01/08/2024): Chronic ischemic changes. Associated attestation - Ana England MD - 01/14/2024 2:13 PM EDT I saw, examined, and discussed the patient with Dr. Sanford. I agree with the history, examination, and medical decision making as noted above by the fellow. Briefly, sudden onset of enceaphalopathy preceeded by BEAL and diarrhea. LP is benign, but after 4 days of broad spectrum abx. Will plan 14 day course of meningitis treatment. Patient and wish to go home. Will change ceftriaxone and amp to meropenem to make the regimen easier. Continue vancomycin. Opat to follow Ana England MD Division of Infectious Diseases Pager: [phone] Hospital Medicine Progress Note Patient: Kerrie Kearney, : 1945, Impression / Plan Kerrie Kearney is a 78 y.o. female with PMH HTN, DM2, hyperthyroidism who presented from OSH on 01/07 with altered mental status, headache, and fever. Transferred to [facility] for LP, neurology and further care due to concern for meningitis or encephalitis. Acute metabolic encephalopathy, fever, headaches Possible delirium Likely meningitis -Per OSH records, had reported patient acting different, difficulty ambulating, headaches for a couple days prior. Febrile in OSH ED to 101. Concern for meningitis or encephalitis. OSH unable to do LP due to scoliosis so transferred to [facility] -Mental status overall seems improved from OSH, had garbled speech, confusion, restlessness, unable to state her name, reaching for things in the air - she is a little more oriented now and calm, still confused but seems a bit less so compared to admission records -CT head and CTA negative -For infectious w/up, UA and CXR unremarkable, COVID/flu/RSV neg. Blood cx sent -Mild leukocytosis of 12.3 on admission, lactate 2.1 -HIV, RPR negative -MRI brain showed diffuse restricted diffusion in cerebral cortex bilaterally most pronounced in parietal occipital regions of indeterminate etiology -LP under fluoro completed 01/10 -Only 5 WBCs. Elevated protein and glucose -Meningitis/encephalitis panel negative -Autoimmune encepahlopathy panel in process, lyme negative -Neurology and ID consulted, appreciate recs. Personally discussed with ID today. Given substantial improvement in mental status after receiving abx will treat for presumed meningitis although cultures were negative (suspect LP profile was not overtly infectious because she had already received 3 days of empiric treatment prior to LP) -ID to place OPAT note today -Awaiting PT/OT recs. If home going, patient will need PICC and HHC for IV abx -Continue vancomycin, ampicillin, and ceftriaxone for now - may switch to vanc and meropenem for simpler dosing if patient going home Dysphagia -Complicated by AMS. Seen by speech and cleared for pureed diet Hyperglycemia, with previously non insulin dependent DM2- history of DM type 2 on glipizide and metformin only -A1C 10.6% at OSH on admission -Glucose in 500s at OSH. S/p IVFs and insulin -Continue glargine 8 units for now, lispro SSI, will uptitrate as needed -Endocrine and metals sales representative consulted. Will need insulin supplies prior to discharge and to make sure either she or her can administer insulin Hyperthyroidism, with left thyroid nodule - cont Methimazole. TSH/T4 wnl at OSH. 2.8cm L thyroid nodule incidentally noted on CTA -Thyroid ultrasound done at OSH shows multinodular goiter with up to 2.3 cm left thyroid TI-RAD 3 lesion and 1.2cm right thyroid TI-RA 4 lesion for which 1 year follow up ultrasound is recommended HTN: Continue coreg, resume home lisinopril and diltiazem Depression/anxiety: continue home duloxetine GERD: home PPI HLD: statin Resolved at OSH: Hyponatremia, mild RICK: Cr 1.4 on admission, unclear baseline but has now trended down to 1. Continue to monitor Complexity. Any conditions listed below are present on admission unless otherwise specified. . DVT prophylaxis with lovenox Anticipated Disposition: TBD, pending PT/OT Code status is Full Code Interval History / Subjective Pt seen and examined at bedside. Up in recliner eating breakfast. at bedside. He feels she looks much better and back to her baseline. She is disoriented to name of hospital, time and situation but he says this is about normal for her. She is alert and answering questions Objective Temp: [96.9 F (36.1 C)-97.8 F (36.6 C)] 97.5 F (36.4 C) Pulse (Heart Rate): [56-68] 58 Resp Rate: [16-18] 16 BP: (108-142)/(52-77) 127/56 O2 Sat (%): [96 %-99 %] 98 % Physical Exam General: awake and alert, calm, NAD, up in recliner Cardiac: RRR Lungs: CTAB, normal effort Abdomen: soft, nontender, nondistended, +BS Extremities: no LE edema Neuro: A&Ox1-2 to self and being in the hospital but not which one, disoriented to time and situation, follows commands easily Data Review WBC/Hgb/Hct/Plts: 6.23/10.6/34.1/218 (01/13 418) Na/K+/Phos/Mg/Ca: 137/3.7/--/2.2/9.1 (01/13 418) Bun/Creat/Cl/CO2/Glucose: 21/1.12/106/22/182 (01/13 418) Sunitha Corley DO Division of Hospital Medicine [facility] Acute Physical Therapy Evaluation Prior Gross Functional Mobility: used device Current AM-PAC score(s): CURRENT AM-PAC Mobility Raw Score: 15 Based on the above AM-PAC score(s) and PT clinical judgment, patient is a good candidate for discharge to Jail Facility Barriers to discharge home: Patient needs assistance with functional mobility Mobility equipment available at home: rollator, straight cane ADL equipment available at home: shower chair, grab bars Equipment needed for discharge: to be determined Current therapy frequency recommendation in acute: Therapy Frequency: 5 times a week Activity Recommendations for outside of rehab session: assist x1 bed to chair Precautions and Weightbearing Status: Existing Precautions/Restrictions: fall No critical lines at this time Patient Safety Communication Prior to Visit: Nursing Subjective: Pt lethargic but agreeable to therapy services. Pain: General Pain Documentation (Adult, OB, Peds) Presence of Pain: reports pain/discomfort Pain Location: abdomen DVPRS (Defense and Veterans Pain Rating Scale) DVPRS: Rest: 3- mild pain DVPRS: Activity: 3- mild pain Home Setting Residence: House (One-level home.) Lives With: spouse Patient receives help from : none Patient reported support for discharge plannin hour supervision, 24 hour physical assistance First floor setup: bedroom, walk-in shower, grab bars Number of stairs to enter home: 3 Number of stairs in home: 0 Stair Railings at Home: entry - no rail Mobility Equipment Available: rollator, straight cane ADL Equipment Available: shower chair, grab bars Home Environment Details: Secondary to pt's current deficits in cognition/mentation, unable to ensure accuracy of Occupational Profile information collected via pt this date. Previous Level of Function Gross Functional Mobility: used device Assistive Device: 4 wheeled walker Prior level ADL Overview: Independent with all ADLs Dominant Hand: Left Bathing: independent Bed Mobility: independent Transfers: independent Stairs: independent Ambulation: modified independent with home, modified independent with community Prior Level of Function Details: Secondary to pt's current deficits in cognition/mentation, unable to ensure accuracy of Occupational Profile information collected via pt this date; Pt endorses use of walker at all times when mobilizing; Pt states she has experienced a few recent falls in the past 3 months, but unable to report etiology. Vocation: retired Objective/Observation: Vitals/Vitals Responses to Treatment: WFL O2 Device: room air Cognition Overall Cognitive Status: Impaired Arousal/Alertness: Delayed responses to stimuli Orientation Level: Oriented to person Following Commands: Follows one step commands with repetition, Follows one step commands with increased time Safety Judgment: Decreased awareness of need for assistance, Decreased awareness of need for safety Awareness of Errors: Assistance required to identify errors made, Assistance required to correct errors made, Decreased awareness of errors Deficits: Decreased awareness of deficits Cognition Comments: Pt requires continuous cueing and redirection for safety. Vision Screen Currently wearing corrective lenses: No Speech Speech: no gross deficits noted Hearing Hearing: no gross deficits noted Extremity Assessments: RLE Assessment RLE Assessment: (4/5 grossly) LLE Assessment LLE Assessment: (4/5 grossly) Sensation Overall Sensation: Intact Mobility Assessment: Supine to Sit Mobility Clare Level: Supine->Sit: moderate assist (50% patient effort) Bed Features/Set-up: Supine->Sit: Head of bed elevated, Use of bed rail Skilled Rationale: Positioning, Hand placement, Verbal cues Skilled Intervention/Details: Supine->Sit: Max cueing for initiation and technique of activity. Balance: Sitting Balance Static Sitting-Level of Assistance: Standby Dynamic Sitting-Level of Assistance: Standby Skilled Rationale: Positioning, Hand placement, Verbal cues Sitting Balance Skilled Intervention/Details: Pt sat EOB roughly 6 min with SBA. Pt used B UE support on the bed to maintain balance during dynamic sitting. Standing Balance Static Standing-Level of Assistance: Minimum assistance Dynamic Standing-Level of Assistance: Minimum assistance Standing-Balance Support: Gait belt, 2 wheeled walker Skilled Rationale: Positioning, Verbal cues, Full extension to upright positioning/posture Standing Balance Skilled Intervention/Details: Pt stood roughly 30 sec with 2WW and Min A. Pt required cueing to fully extend. Transfer Assessment: Sit to Stand Transfer Clare Level: Sit->Stand: minimum assist (75% patient effort) Assistive Device: Sit->Stand: gait belt, 2 wheeled walker Skilled Rationale: Positioning, Hand placement, Verbal cues, Full extension to upright positioning/posture, Finding/maintaining midline positioning Skilled Intervention/Details: Sit->Stand: x1 from EOB Stand to Sit Transfer Clare Level: Stand->Sit: minimum assist (75% patient effort) Assistive Device: Stand->Sit: gait belt, 2 wheeled walker Skilled Rationale: Positioning, Hand placement, Verbal cues Gait/Functional Mobility: Gait Assessment Clare Level: Gait: minimum assist (75% patient effort) Physical Assist: Gait: chair follow Assistive Device: Gait: gait belt, 2 wheeled walker Ambulation Distance (Feet): 6 Gait Deviations Identified: decreased chris, decreased gait speed, decreased heel strike, flexed posture, decreased weight shifting, decreased step length, increased knee flexion Gait Skilled Rationale: tactile, verbal, upright posture, safety to avoid obstacles Skilled Intervention/Details - Gait: Pt ambulated 6 ft in room. Pt required max cueing to extend knees in stance and decrease trunk flexion. Pt ambulated with shuffling pattern and decreased cadenced. Stairs: Outcome Score(s): CURRENT AM-PAC Basic Mobility Inpatient Short Form Turning over in bed: 3 - A Little Assistance Moving from lying on back to sittin - A Lot of Assistance Moving to and from bed to chair: 3 - A Little Assistance Sitting/standing from chair: 3 - A Little Assistance Walk in hospital room: 3 - A Little Assistance Climbing 3-5 steps with a railin - Total Assistance CURRENT -[facility] Mobility Raw Score: 15 CURRENT -[facility] Mobility Functional Limitation: 57.70% Impaired in Basic Mobility Interventions: Assessment & Plan: Patient was admitted for Confusion [R41.0] and seen for therapy evaluation related to deficits in functional mobility. Exam findings include impairments in: Balance, Coordination, Transfers, Gait/Locomotion, Strength. These impairments contribute to functional limitations including Decreased ambulation distance/endurance, Difficulty stair climbing/descent, Increased fall risk, Limited standing tolerance, Difficulty with bed mobility, Difficulty with transfers, Decreased functional mobility. Current clinical presentation is Evolving - changing/inconsistent clinical characteristics (Moderate). Patient history factors impacting Plan Of Care include . Patient will benefit from skilled physical therapy to address these impairments, functional limitations, and participation restrictions and has good rehab potential to achieve therapy goals. Planned Therapy Interventions: balance training, endurance, gait training, neuromuscular re-education, strengthening, transfer training, bed mobility training Patient Instruction/Education this session: Learners: Patient Education provided: Activity outside of therapy, Plan of care Teaching method: Verbal Education/Instruction Learner response: Needs review Learning preferences: Auditory Learning considerations: Cognition Plan for next session: Progress ambulation distance and LE strengthening Acute PT Goals Plan of Care by Karuna Masters, PT at 01/14/2024 12:07 PM Version 1 of 1 Problem: PT - General Goals Goal: Supine <-> Sit Transfers - Patient will perform supine to/from sit transfers with standby assistance and without use of hospital bed features in order to improve functional mobility and safety. Outcome: Ongoing Goal: Sit <-> Stand Transfers - Patient will perform sit to/from stand transfers with standby assistance and wheeled walker in order to improve functional mobility and safety. Outcome: Ongoing Goal: Ambulation - Patient will ambulate 100 feet with standby assistance and wheeled walker to improve ability to safely navigate home and community. Outcome: Ongoing Goal: Stairs - Patient will ascend/descend 3 stairs with standby assistance, least restrictive device, and no railing(s) to improve ability to safely navigate home and community. Outcome: Ongoing PT treatment consisted of the following to progress towards the above goal(s): PT Evaluation and Treatment Time PT Evaluation (Moderate) Time Entry: 18 Evaluating Therapist: Yamila Connolly Additional Details: PT Co-Eval/Treatment Information Co-evaluation/co-treatment performed?: Yes, simultaneous billable skilled care was necessary due to medical complexity and functional deficits Other discipline: OT Rationale for need to co-eval/treat: cognitive issues, coordination issues, postural control, alertness/arousal Co-treatment goal focus: balance, mobility, transfer Evaluation Complexity Components History: Moderate (1-2 personal factors and/or comorbidities) Body Systems Review: Moderate (Addressing a total of 3 or more elements) Clinical Presentation: Evolving - changing/inconsistent clinical characteristics (Moderate) Clinical Decision Making: Moderate Time In: 753 Time Out: 811 Total Visit Time: 18 minutes Total Treatment Time (skilled, billable minutes): 18 minutes PPE used during patient interaction: gloves Patient location at end of session: chair Alarms on at end of session: chair alarm Needs in reach. Upon discontinuation of Acute Care Physical Therapy Services or patient discharge from the hospital this note represents the current Physical Therapy Discharge Summary. Associated attestation - Karuna Masters, PT - 01/14/2024 3:13 PM EDT I, Karuna Masters, PT, provided direct guidance in the room during this patient care session. I attest that all documentation reflects accurate skilled clinical decisions and judgements. Acute Occupational Therapy Evaluation Prior Gross Functional Mobility: used device Current AM-PAC score(s): CURRENT AM-PAC Activity Raw Score: 16 Based on the above AM-PAC score(s) and OT clinical judgment, discharge destination recommendation is: [facility] Facility Barriers to discharge home: Patient unable to navigate stairs to enter home, Patient needs assistance with functional mobility, Patient needs assistance with ADLs, Patient needs assistance with IADLs (see note below), Patient needs assistance with medication management, Patient needs assistance with self-care for medical condition (see note below), Cognitive impairments that impact safety (see note below) Mobility equipment available at home: rollator, straight cane ADL equipment available at home: shower chair, grab bars Equipment recommendations for discharge: 2 wheeled walker Current therapy frequency recommendation(s) in acute: 5 times a week Activity Recommendations for outside of rehab session: 1 person assist with 2 wheeled walker and gait belt for short distance mobility within room. Precautions and Weightbearing Status: OT Existing Precautions/Restrictions: fall (Exit alarm; Confusion/dementia precautions; Sitter.) No critical lines at this time Patient Safety Communication Prior to Visit: Nursing Subjective: Pt reported, Where am I? How did I get here? several times during session despite therapist re-education/cueing. Pain: General Pain Documentation (Adult, OB, Peds) Presence of Pain: reports pain/discomfort Pain Location: abdomen Home Setting Residence: House (One-level home.) Lives With: spouse Patient receives help from : none Patient reported support for discharge plannin hour supervision, 24 hour physical assistance First floor setup: bedroom, walk-in shower, grab bars Number of stairs to enter home: 3 Number of stairs in home: 0 Stair Railings at Home: entry - no rail Mobility Equipment Available: rollator, straight cane ADL Equipment Available: shower chair, grab bars Home Environment Details: Secondary to pt's current deficits in cognition/mentation, unable to ensure accuracy of Occupational Profile information collected via pt this date. Previous Level of Function Gross Functional Mobility: used device Assistive Device: 4 wheeled walker Prior level ADL Overview: Independent with all ADLs Dominant Hand: Left Bathing: independent Bed Mobility: independent Transfers: independent Stairs: independent Ambulation: modified independent with home, modified independent with community Prior Level of Function Details: Secondary to pt's current deficits in cognition/mentation, unable to ensure accuracy of Occupational Profile information collected via pt this date; Pt endorses use of walker at all times when mobilizing; Pt states she has experienced a few recent falls in the past 3 months, but unable to report etiology. Vocation: retired IADL History IADLs: independent Objective/Observation: Vitals/Vitals Responses to Treatment: No adverse reactions noted. O2 Device: room air Vision Screen Currently wearing corrective lenses: No Visual Impairments Observed?: No Speech Speech: no gross deficits noted Hearing Hearing: hard of hearing (Mild.) Cognition Overall Cognitive Status: Impaired Arousal/Alertness: Delayed responses to stimuli Orientation Level: Oriented to person Following Commands: Follows one step commands with increased time, Follows one step commands with repetition Safety Judgment: Decreased awareness of need for assistance, Decreased awareness of need for safety Awareness of Errors: Decreased awareness of errors Deficits: Decreased awareness of deficits Attention Span: Attends with cues to redirect, Difficulty attending to directions, Difficulty dividing attention 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 ADLs: ADL Anticipated Performance (ADLs not directly observed this session): Eating, Grooming, Bathing, UE Dressing, LE Dressing, Toileting Eating Assistance: Independent Eating Location: chair Grooming Assistance: Minimal Grooming Location: seated in chair Bathing Assistance: Moderate Bathing Location: seated in chair UE Dressing Assistance: Minimal UE Dressing Location: seated in chair LE Dressing Assistance: Maximal LE Dressing Location: seated in chair, standing Toilet Assistance: Maximal Toileting Location: bedside commode Extremity Assessments: RUE Assessment RUE Assessment: Within Functional Limits Right UE Assessment Details: About 4/5-4+/5 grossly; Moderate grasp strength. LUE Assessment LUE Assessment: Within Functional Limits Left UE Assessment Details: About 4/5-4+/5 grossly; Moderate grasp strength. Balance: Sitting Balance Static Sitting-Level of Assistance: Standby Dynamic Sitting-Level of Assistance: Contact guard Sitting Balance Skilled Intervention/Details: Seated EOB for about 10 minutes with no difficulty, mostly requiring cues for safety. Standing Balance Static Standing-Level of Assistance: Contact guard, Minimum assistance Dynamic Standing-Level of Assistance: Minimum assistance Standing Balance Skilled Intervention/Details: Standing for about 4-5 minutes while completing functional transfers/mobility, mostly requiring cues for safety and with initial hip extension, mild retropulsive lean, and overall upright versus kyphotic posturing. Neuro: Sensation Overall Sensation: Intact Fine Motor Coordination Left Hand, Finger To Nose: moderate impairment Right Hand, Finger To Nose: moderate impairment Left Hand Thumb/Finger Opposition Skills: moderate impairment Right Hand Thumb/Finger Opposition Skills: moderate impairment Left Hand, Diadochokinesis Skills: moderate impairment Right Hand, Diadochokinesis Skills: moderate impairment Skin and Edema: Skin Integrity Skin Integrity Description: WFL (Visible areas.) Edema Edema: none noted Mobility Assessment: Supine to Sit Mobility Clare Level: Supine->Sit: moderate assist (50% patient effort) Bed Features/Set-up: Supine->Sit: Head of bed elevated, Use of bed rail Skilled Rationale: Cues for increased safety, Initiation and execution of task, Technique of activity, Full extension to upright positioning/posture, Facilitate anterior shift, Tactile cues, Verbal cues, Hand placement, Sequencing, Positioning Skilled Intervention/Details: Supine->Sit: Cues for initiation/sequencing/safety, as well as assisting with upper trunk support, LEs, and aligning hips to midline. Increased time/effort for performance with pt appearing increasingly limited in performance by cognition/comprehension of task. Transfer Assessment: Sit to Stand Transfer Clare Level: Sit->Stand: minimum assist (75% patient effort) (x 1 trial from EOB.) Assistive Device: Sit->Stand: gait belt, 2 wheeled walker Skilled Rationale: Cues for increased safety, Initiation and execution of task, Technique of activity, Full extension to upright positioning/posture, Facilitate anterior shift, Upright gaze/neck extension, Arm in arm, Tactile cues, Verbal cues, Hand placement Skilled Intervention/Details: Sit->Stand: Cues for initiation/sequencing/safety/hand placement on walker, as well as assisting with initial hip extension, mild retropulsive lean, and overall upright versus kyphotic posturing. Stand to Sit Transfer Clare Level: Stand->Sit: minimum assist (75% patient effort) Assistive Device: Stand->Sit: gait belt, 2 wheeled walker Skilled Rationale: Cues for increased safety, Initiation and execution of task, Technique of activity, Controlled descent for sitting, Arm in arm, Tactile cues, Verbal cues, Hand placement Functional Mobility: Functional Mobility Clare Level: Functional Mobility/Gait: minimum assist (75% patient effort) Physical Assist: Functional Mobility/Gait: chair follow Assistive Device: Functional Mobility/Gait: 2 wheeled walker, gait belt (Non-skid socks.) Functional Mobility Distance: (From EOB to entrance of room.) Skilled Intervention/Details - Functional Mobility/Gait: No LOB/SOB experienced; Mild-moderate unsteadiness with pt requiring increased cues to maintain upright versus kyphotic posturing, to maintain adequate positioning within walker, and for overall walker management. Pt often mobilizing with narrow base of support and shuffled steps, mobilizing at a moderately reduced rate overall. Outcome Score(s): CURRENT AM-PAC Daily Activity Inpatient Short Form Putting on/Taking Off Lower Body Clothin - A Lot of Assistance Bathin - A Lot of Assistance Toiletin - A Lot of Assistance Putting on/Taking Off Upper Body Clothin - A Little Assistance Groomin - A Little Assistance Eatin - No Assistance CURRENT AM-PAC Activity Raw Score: 16 CURRENT AM-PAC Activity Functional Limitation/Modifier: 53.32% Currently Impaired in Daily Activity - CK Assessment & Plan: Patient was admitted for AMS, headache, and fevers and found to have acute metabolic encephalopathy/possible delirium and seen for therapy evaluation related to impairments in endurance/activity tolerance, bed mobility, functional transfers/mobility, standing balance, UE coordination/precision, and cognition limiting pt's safe/independent ADL/IADL performance this date. Exam findings include impairments in: attention, balance, cognitive impairments, coordination, endurance, motor function, posture, transfers. These impairments contribute to occupational performance limitations including bathing, dressing, grooming, toileting, functional mobility, ADL transfers, community integration, leisure integration, home management tasks, shopping/errands, driving/transportation. The following factors impact the plan of care: Hx of depression and anxiety. Psychosocial Factors Positive indicators for performance: Adequate support system, Positive interpersonal relationships, Active participation in community/group program, Positive coping mechanisms Possible barriers for performance: None Patient will benefit from skilled occupational therapy to address these impairments, occupational performance limitations, and participation restrictions. Patient's rehab potential is: good. Planned Therapy Interventions (OT Eval): ADL retraining, balance training, bed mobility training, cognitive training, fine motor coordination training, functional activity tolerance, motor coordination training, transfer training Patient Instruction/Education this session: Learners: Patient Education provided: Balance training, Bed mobility, Discharge recommendations, Plan of care, Positioning, Role of this discipline, Safety, Activity outside of therapy, Fall precautions, Functional transfers, Gait training safety Teaching method: Verbal Education/Instruction Learner response: Needs review Learning preferences: Auditory Learning considerations: Cognition Stroke education: Role of rehabilitation discipline, Recovery process Plan for next session: Therapist to address further dynamic standing balance/functional mobility, cognitive functioning, and ADL engagement. Acute OT Goals Plan of Care by Fanny Fregoso OT at 01/14/2024 7:55 AM Version 1 of 1 Problem: OT - ADLs Goal: Lower Body Dressing - Patient will complete lower body dressing tasks with standby assistance using adaptive equipment/compensatory strategies as needed for improved ability to complete self-care activities. Outcome: Ongoing Goal: Bathing - Patient will perform full body bathing routine with standby assistance while seated for improved ability to complete self-care activities Outcome: Ongoing Problem: OT - Transfers Goal: Transfers Toilet/ Bedside Commode - Patient will transfer to/from toilet/bedside commode with standby assistance for improved ability to safely complete ADLs. Outcome: Ongoing Problem: OT - Endurance Goal: Endurance Functional Mobility - Patient will complete distance needed for common household mobility with no greater than 0 rest breaks for improved tolerance to safely complete I/ADL's Outcome: Ongoing Problem: OT - Strength/ROM Goal: Strength/ROM ADL Participation - Patient will participate in UE exercise program with independence to prevent deconditioning while in hospital and to max UE ROM/Coordination/strength for ADLs. Outcome: Ongoing Problem: OT - Cognition Goal: Cognition Simple ADL - Patient will demonstrate improved cognition, completing simple ADL task for 8-10 minutes with no greater than min cues required to maintain attention. Outcome: Ongoing OT treatment consisted of the following to work and progress towards the above goal(s): OT Evaluation and Treatment Time OT Evaluation (Moderate) Time Entry: 18 Evaluating Therapist: Fanny Fregoso OT Additional Details: OT Co-Eval/Treatment Information Co-evaluation/co-treatment performed?: Yes, simultaneous billable skilled care was necessary due to medical complexity and functional deficits Other discipline: PT Rationale for need to co-eval/treat: cognitive issues, coordination issues, postural control OT Evaluation Complexity Occupational Profile and Client History: Moderate - expanded history Assessment of Occupational Performance: Moderate (3-5 performance deficits) Clinical Decision/Performance Deficits: Moderate (detailed assessments w/several treatment options) Time In: 753 Time Out: 811 Total Visit Time: 18 minutes Total Treatment Time (skilled, billable minutes): 18 minutes PPE used during patient interaction: facemask, gloves Patient location at end of session: chair Alarms on at end of session: RN aware, chair alarm, Other (Sitter present.) Needs in reach. Upon discontinuation of Acute Care Occupational Therapy Services or patient discharge from the hospital this note represents the current Occupational Therapy Discharge Summary. Department of Pharmacy Pharmacokinetics Progress Note Patient: Kerrie Kearney [facility] Assessment and Plan: Based upon drug level assessment and interpretation (steady state), I have changed the vancomycin dose and/or dosing interval to 1250 mg IV every 24 hours to start at 2230 on 01/13/24. A pharmacist will continue to follow and order drug levels and adjust dosing as clinically appropriate. I have modified the orders in IS to reflect the above plan. Vancomycin regimen at time of level: Vancomycin 1000 mg IV every 24 hours Last Dose Administered: Dose: Date: Time: 1000 mg 01/12/242156 Levels: 13.6 mcg/mL drawn at 2138 on 01/12. Level was a trough. Most Recent Labs: WBC Count Date Value Ref Range Status 01/13/2024 8.81 3.99 - 11.19 K/uL Final BUN Date Value Ref Range Status 01/13/2024 20 7 - 25 mg/dL Final Creatinine Date Value Ref Range Status 01/13/2024 0.93 0.50 - 1.20 mg/dL Final I/O last 3 completed shifts: In: 940.4 [P.O.:905; I.V.:0.4; IV Piggyback:35] Out: 900 [Urine:900] Estimated Creatinine Clearance: 45 mL/min (by C-G formula based on SCr of 0.93 mg/dL). Ongoing Vancomycin Monitoring: The following trough goal is recommended for ongoing therapy based on the suspected/confirmed source of infection and today s calculations: Goal trough range: 15-20 mcg/mL If therapy is to be continued after discharge, please contact pharmacy for appropriate dosing. Please feel free to contact me with any further questions. Name: Samantha Vallejo RPH Phone: [phone] Date/Time: 01/13/2024 10:08 PM [facility] Progress Note Patient: Kerrie Kearney, : 1945, Impression / Plan Kerrie Kearney is a 78 y.o. female with PMH HTN, DM2, hyperthyroidism who presented from OSH on 6/25 with altered mental status, headache, and fever. Transferred to [facility] for LP, neurology and further care due to concern for meningitis or encephalitis. Acute metabolic encephalopathy, fever, headaches Possible delirium -Per OSH records, had reported patient acting different, difficulty ambulating, headaches for a couple days prior. Febrile in OSH ED to 101. Concern for meningitis or encephalitis. OSH unable to do LP due to scoliosis so transferred to [facility] -Mental status overall seems improved from OSH, had garbled speech, confusion, restlessness, unable to state her name, reaching for things in the air - she is a little more oriented now and calm, still confused but seems a bit less so compared to admission records -CT head and CTA negative -For infectious w/up, UA and CXR unremarkable, COVID/flu/RSV neg. Blood cx sent -Mild leukocytosis of 12.3 on admission, lactate 2.1 -HIV, RPR negative -MRI brain showed diffuse restricted diffusion in cerebral cortex bilaterally most pronounced in parietal occipital regions of indeterminate etiology -LP under fluoro completed 01/10 -Only 5 WBCs. Elevated protein and glucose -Meningitis/encephalitis panel negative -Autoimmune encepahlopathy panel in process, lyme negative -Neurology consulted, appreciate recs. Personally discussed today. Given substantial improvement in mental status after receiving abx would continue for now, suspect LP profile was not overtly infectious because she had already received 3 days of empiric treatment prior to LP -Appreciate ID recs, continue vanc/ceftriaxone/ampicillin, stop acyclovir, follow up CSF cx -Continue acyclovir, vancomycin, ampicillin, and ceftriaxone for now Dysphagia -Complicated by AMS. Seen by speech and cleared for pureed diet Hyperglycemia, with previously non insulin dependent DM2- history of DM type 2 on glipizide and metformin only -A1C 10.6% at OSH on admission -Glucose in 500s at OSH. S/p IVFs and insulin -Continue glargine 8 units for now, lispro SSI, will uptitrate as needed -linseed oil refiner consulted. Will need insulin supplies prior to discharge Hyperthyroidism, with left thyroid nodule - cont Methimazole. TSH/T4 wnl at OSH. 2.8cm L thyroid nodule incidentally noted on CTA -Thyroid ultrasound done at OSH shows multinodular goiter with up to 2.3 cm left thyroid TI-RAD 3 lesion and 1.2cm right thyroid TI-RA 4 lesion for which 1 year follow up ultrasound is recommended HTN: Continue coreg, resume home lisinopril and diltiazem Depression/anxiety: continue home duloxetine GERD: home PPI HLD: statin Resolved at OSH: Hyponatremia, mild RICK: Cr 1.4 on admission, unclear baseline but has now trended down to 1. Continue to monitor Complexity. Hypomagnesemia - Continue to monitor and replete. Any conditions listed below are present on admission unless otherwise specified. . DVT prophylaxis with lovenox Anticipated Disposition: TBD, pending PT/OT Code status is Full Code Interval History / Subjective Pt seen and examined at bedside. Awake and alert, disoriented to place, time and situation. She does not remember why she is here and says her and son went beserk last night but she is unable to specify further. She is eating breakfast calmly with no complaints Objective Temp: [97.1 F (36.2 C)-97.9 F (36.6 C)] 97.2 F (36.2 C) Pulse (Heart Rate): [62-83] 62 Resp Rate: [16-17] 17 BP: (109-193)/(57-82) 112/58 O2 Sat (%): [96 %-100 %] 98 % Physical Exam General: awake and alert, NAD, calm but confused Cardiac: RRR Lungs: CTAB, normal effort Abdomen: soft, nontender, nondistended, +BS Extremities: no LE edema Neuro: A&Ox1 to self, disoriented to place time and situation, no focal deficits and follows commands easily Data Review WBC/Hgb/Hct/Plts: 8.81/12.3/39.2/254 (01/12 603) Na/K+/Phos/Mg/Ca: 139/3.9/--/1.4/9.5 (01/12 603) Bun/Creat/Cl/CO2/Glucose: 20/0.93/105/25/159 (01/12 603) Sunitha Corley DO Division of Hospital Medicine [facility] ..BEHAVIORAL EMERGENCY RESPONSE TEAM ([facility]) PCT NOTE 01/12/2024 Kerrie Kearney : 1945 Pt was observed awake in bed speaking with a visitor. Sitter is present at the bedside and indicates the Pt has no issues to report. Pt has no needs of [facility] at this time. Staff are encouraged to utilize [facility] as a resource if/when behavior or emotional issues arise. UMER Riley [facility] Pager: [phone] [facility] Phone: [phone] Hospital Medicine Progress Note Patient: Kerrie Kearney, : 1945, Impression / Plan Kerrie Kearney is a 78 y.o. female with PMH HTN, DM2, hyperthyroidism who presented from OSH on 01/07 with altered mental status, headache, and fever. Transferred to [facility] for LP, neurology and further care due to concern for meningitis or encephalitis. Acute metbaolic encephalopathy, fever, headaches Possible delirium -Per OSH records, had reported patient acting different, difficulty ambulating, headaches for a couple days prior. Febrile in OSH ED to 101. Concern for meningitis or encephalitis. OSH unable to do LP due to scoliosis so transferred to [facility] -Mental status overall seems improved from OSH, had garbled speech, confusion, restlessness, unable to state her name, reaching for things in the air - she is a little more oriented now and calm, still confused but seems a bit less so compared to admission records -CT head and CTA negative -For infectious w/up, UA and CXR unremarkable, COVID/flu/RSV neg. Blood cx sent -Mild leukocytosis of 12.3 on admission, lactate 2.1 -HIV, RPR negative -MRI brain showed diffuse restricted diffusion in cerebral cortex bilaterally most pronounced in parietal occipital regions of indeterminate etiology -LP under fluoro completed yesterday -Only 5 WBCs. Elevated protein and glucose -Meningitis/encephalitis panel negative -Autoimmune encepahlopathy panel, lyme negative -Neurology and ID consults -Continue acyclovir, vancomycin, ampicillin, and ceftriaxone for now Hyperglycemia, with previously non insulin dependent DM2- history of DM type 2 on glipizide and metformin only -A1C 10.6% at OSH on admission -Glucose in 500s at OSH. S/p IVFs and insulin -Continue glargine 8 units for now, lispro SSI, will uptitrate as needed -linseed oil refiner consult and will need insulin supplies prior to discharge Hyperthyroidism, with left thyroid nodule - cont Methimazole. TSH/T4 wnl at OSH. 2.8cm L thyroid nodule incidentally noted on CTA -Thyroid ultrasound done at OSH shows multinodular goiter with up to 2.3 cm left thyroid TI-RAD 3 lesion and 1.2cm right thyroid TI-RA 4 lesion for which 1 year follow up ultrasound is recommended HTN: holding home lisinopril, diltiazem. Resume coreg. Will add back agents as needed Depression/anxiety: continue home duloxetine GERD: home PPI HLD: statin Resolved at OSH: Hyponatremia, mild RICK: Cr 1.4 on admission, unclear baseline but has now trended down to 1. Continue to monitor Complexity. Hypomagnesemia - Continue to monitor and replete. Any conditions listed below are present on admission unless otherwise specified. . DVT prophylaxis with lovenox Anticipated Disposition: TBD, pending PT/OT Code status is Full Code Interval History / Subjective Pt seen and examined at bedside. She is awake and alert. Able to tell me she is in the hospital but confused about which one, city, month/year - even though nurse had just told her which hospital she was at not too long ago. She does not remember the past few days or why she is in the hospital. Follows commands, able to identify objects. Denies headaches or subjective fevers Discussed with over the phone, he feels like her mental status is improved from a few days ago but not back to baseline yet. He thinks she seems to recall more than before and conversation is more appropriate Objective Temp: [97.7 F (36.5 C)-99 F (37.2 C)] 98.3 F (36.8 C) Pulse (Heart Rate): [90-114] 100 Resp Rate: [17-24] 18 BP: (148-192)/(68-109) 154/75 O2 Sat (%): [79 %-100 %] 98 % Weight: [66.2 kg (146 lb)] 66.2 kg (146 lb) Physical Exam General: awake and alert, NAD, confused Cardiac: RRR Lungs: CTAB, normal effort Abdomen: soft, nontender, nondistended, +BS Extremities: no LE edema Neuro: A&Ox1-2 to self and being in hospital but not which one, disoriented to time and situation, no focal deficits and follows commands, able to identify objects appropriately and repeat sentences with a bit of delay Data Review WBC/Hgb/Hct/Plts: 7.52/11.6/36.9/273 (01/11 439) Na/K+/Phos/Mg/Ca: 140/4.1/--/1.4/-- (01/11 439) Bun/Creat/Cl/CO2/Glucose: 21/0.98/106/21/215 (01/11 439) Ptt/Pt/Inr: 32.7/14.6/1.1 (01/10 1113) Sunitha Corley DO Division of Hospital Medicine [facility] Images from the original note were not included. Inpatient Neurology Consultation Note Physician: Alisha Armendariz MD, MPH, PGY-3 Patient: Kerrie Kearney, 1945, [id number] ADMIT DATE: 01/11/2024 Date of face to face patient encounter: 01/12/2024 Reason for Consultation AMS, headache, and fever, transferred here for possible meningitis vs encephalitis, LP done yesterday, appreciate recs for any further infectious workup and abx management History of Present Illness: Kerrie Kearney is a 78 y.o. female with a PMH of HLD, HTN, DM, hyperthyroidism, who presents with with fevers, headache, and AMS with concerns for meningitis. Per HPI from Dr. Tolentino at [facility]: Per , at baseline she uses a walker, they go out for limited walks and to the store but not much. She takes care of all her ADLs at home. Cognitively, there has been increasing amount of loss of memory over the past few years, things don t stick that long . Per , what happened last night is absolutely abnormal, She was at her baseline prior going to bed, she had a phone call with her sister right before 10 PM. She went into the master bedroom. The following events happened over the course of 3-4 hours. Shortly after going to bed, around midnight, he realized she was up moving around on her walker. She was coming down the hallway and bumping into things. When he saw her coming around the corner, she was leaning forward on the R side onto the walker, knocked over few things, she seemed confused, she was trying to express herself, but not clearly able to do so and she was getting frustrated, this gradually got worse. He got to calm her down a bit and was able to get her back in bed, she stayed there for a bit, then got up again and continued to wander around the house, and then she got very weak and was unable to carry herself around. She rarely complains about headaches, but over the past couple days she has been bad headache and was taking extra OTC for headache. No prior history of seizures. She used to check her sugar at home but has not checked it in months. Usually her sugar runs in the mid 100s. In the ER, Febrile 101, WBC 12, BG 500s, Na 139, Cr 1.43, Utox negative, UA non-infections, CXR clear. TSH wnl LP was attempted but unsuccessful due to severe scoliosis MRI brain read with diffuse cortical DWI but on my personal review, these findings are not clear enough and could be artifactual due to movement. Will need to repeat MRI brain in a couple days. At [facility], she was started on vanc, cefepime, ampicillin, and acyclovir on 01/07 (called OSH to confirm). rEEG showed generalized slowing with some triphasics. She was transferred to [facility] on 01/11/24 given inability to obtain an LP. LP was performed by IR on 01/11/24. She was continued on vanc, ampicillin, and acyclovir, but cefepime was transitioned to ceftriaxone. While at [facility], she has been afebrile, but tachycardic. On further history from son and , her initial presentation was keeping her eyes closed and not really responding to stimuli. Was very agitated and had ocassional myoclonic jerks. Medical and Surgical History: No past medical history on file. No past surgical history on file. Social History: Social History Tobacco Use Smoking status: Not on file Smokeless tobacco: Not on file Substance Use Topics Alcohol use: Not on file Social History Substance and Sexual Activity Drug Use Not on file Social History Social History Narrative Not on file Family History: family history is not on file. Medications: Prior to Admission Medications: Medications Prior to Admission Medication Sig Dispense Refill Last Dose Atorvastatin 10 MG tablet Take 1 tablet by mouth daily. carveDILOL 25 MG tablet Take 1 tablet by mouth 2 times daily with meals. Diltiazem 120 MG Cap SR 24HR capsule XL Take 1 capsule by mouth daily. DULoxetine [address] Particles capsule DR Take 1 capsule by mouth daily. glipiZIDE 2.5 MG tablet Take 2.5 mg by mouth 2 times daily. Lisinopril 20 MG tablet Take 1 tablet by mouth daily. methimazole 5 MG tablet Take 1 tablet by mouth 3 times daily. omeprazole [address] capsule Take 1 capsule by mouth daily. Current Scheduled Medications: Acyclovir (ZOVIRAX) 300 mg in Sodium chloride 0.9%, with overfill 116 mL (total volume) IVPB, 5 mg/kg (Order-Specific), Q12HNS Ampicillin (OMNIPEN) 2 g in sodium chloride 0.9% (MB PLUS) 100 mL (total volume) IVPB, 2 g, Q6HNS cefTRIAXone (ROCEPHIN) 2 g in dextrose 50mL premix IVPB, 2 g, Q12H Enoxaparin Sodium (LOVENOX) injection 40 mg, 40 mg, Q24H insulin glargine-yfgn (SEMGLEE) injection 8 Units, 8 Units, QHS Insulin regular (HUMULIN R;NOVOLIN R) injection, , Q6H methimazole (TAPAZOLE) tablet 5 mg, 5 mg, Once per day on Sunday Pantoprazole (PROTONIX) injection 40 mg, 40 mg, Daily Vancomycin HCl in NaCl (VANCOCIN) 1,000 mg in 200 ml NS premix IVPB, 20 mg/kg (Adjusted), Q24H Current PRN Medications: Acetaminophen, 650 mg, Q6H PRN Dextrose, 7.5-25 g, As directed PRN And glucose, 1-2 Tube, As directed PRN Melatonin, 6 mg, QHS PRN Sodium chloride 0.9%, 250 mL, PRN Allergies: Not on File Physical Exam General Examination Temp: [97.7 F (36.5 C)-99 F (37.2 C)] 98.3 F (36.8 C) Pulse (Heart Rate): [90-114] 100 Resp Rate: [17-24] 18 BP: (148-192)/(68-109) 154/75 O2 Sat (%): [79 %-100 %] 98 % Weight: [66.2 kg (146 lb)] 66.2 kg (146 lb) Body mass index is 27.59 kg/m . GENERAL: Laying comfortably in bed; in no acute distress. Neurologic Examination Mental status: awake and alert; oriented to name and place, but not specific hospital or year. Normal mood and affect. Speech/language: fluent, follows most commands Cranial nerves: CN II: Visual roberts intact to confrontation. Differed pupillary exam given photophobia traffic checker III, IV and : extraocular movements intact. No nystagmus CN V: Facial sensation is intact to light touch. CN VII: Facial strength normal with symmetric movement. CN VIII: Hearing is grossly intact. CN IX and X: Soft palate elevates symmetrically in the midline CN XI: Shoulder shrug and sternocleidomastoid strength (R/L) 5/5 CN XII: Tongue is midline with normal movement; no fasciculations. Motor: Normal bulk and tone. No pronator drift. Significant negative myoclonus in BUE SA EE EF WE WF Sheeter Machine Operator HF KE KF DF PF Right 5 5 5 5 5 5 4+ 5 5 5 5 Left 5 5 5 5 5 5 5 5 5 5 5 Reflexes: Right Left Comments Biceps 2 2 Triceps 2 2 Brachioradialis 2 2 Patellar 1 1 Achilles 1 1 Jaw jerk Durbin Palmomental Babinski Down Up Sensation: Intact to light touch throughout Coordination/Complex Motor: - Nuqpse-ve-vszt intact bilaterally without dysmetria Data Review: Lytes: Na/K+/Phos/Mg/Ca: 140/4.1/--/1.4/-- (01/11 439) Chem: Bun/Creat/Cl/CO2/Glucose: 21/0.98/106/21/215 (01/11 439) CBC: WBC/Hgb/Hct/Plts: 7.52/11.6/36.9/273 (01/11 439) Coags: Ptt/Pt/Inr: 32.7/14.6/1.1 (01/10 1113) MRI brain ([facility]): diffuse DWI changes in cerebral cortex bilaterally, most pronounced in parietal occipital region on official read, but per attending neurologist read changes may have been 2/2 motion artifact. Serum: Normal: RPR, HIV Abnormal: Pending: lyme CSF: TNC 5, RBC 248, glucose 143, protein 88, gram stain neg, biofire neg Normal: Abnormal: Pending: lyme, AIE panel Impression Kerrie Kearney is a 78 y.o. female with a PMH of HLD, HTN, DM, hyperthyroidism, who presents with with fevers, headache, and AMS with concerns for meningitis. Patient's initial presentation of BEAL, photophobia, AMS, and fever is consistent with meningitis, and is supported by the substantial improvement in mental status after receiving empiric antimicrobials. Suspect LP profile was not overtly infectious because she had already received 3 days of empiric meningitis treatment prior to the LP and was already substantially improving (from not opening eyes and not responsive to alert and oriented to name and hospital but not year). HSV was negative in the biofire. Would recommend ID consult to assess for continued need for acyclovir as well as for abx management. Would not recommend an MRI brain unless patient does not continue to improve, at which point will have to consider alternative etiologies. Recommendations Agree with ID consult for assistance with abx If patient does not continue to improve, will consider MRI brain Neurology will continue to follow. Thank you for the consultation. If you have any further questions, please contact Neurology Team A. Plan discussed with Dr. Reagan who agrees with the plan and will addend this note for final recommendations. Alisha Armendariz MD, MPH Neurology Resident, PGY-3 Associated attestation - Chava Reagan MD, PhD - 01/13/2024 2:01 PM EDT Neurology Attending Attestation I personally obtained the history, reviewed the data and examined the patient and the note by Dr. Armendariz accurately reports my findings and decision making. Discussed patient on 01/12/24. Staffed patient in person on 01/13/24. Patient history c/w meningitis and she is improving on empiric Abx at this time. If patient continue to improve, no further workup at this time. Please see resident note for full recommendations. Chava Reagan M.D., Ph.D. Acute Care Speech-Language Pathology Clinical Swallow Evaluation Diet recommendation: Recommended Method of Nutrition: PO Recommended Diet Grade: dysphagia- pureed (IDDSI 4) Recommended Liquid Consistency: liquid- thin (IDDSI 0) Recommended Medication Administration (as appropriate per MD): In puree, Whole, Crushed Swallow Strategies: (small sips) Type of Cues/Supervision: 1:1 supervision Assistance: nurse/aide, family Other Recommendations: Discharge Recommendations: Based on the below outcome measures/assessment score(s) and FRAME CLEANER clinical judgment, discharge destination recommendation is: Deferred to PT/OT recomendations related to mobility Acute FRAME CLEANER Outcomes Tracking Communicate basic wants and needs?: yes Demo insight/appreciation of deficits?: no Complete basic problem solving?: no Current therapy frequency recommendation in acute care: Swallow Therapy Frequency: 3 times a week Date of Admission: 01/11/2024 Date of Evaluation: 01/12/2024 Attending Physician: Sunitha Corley DO General Patient Information Name: Kerrie Kearney Gender: female Date of : 1945 Primary Diagnosis: No diagnosis found. No past medical history on file. No past surgical history on file. Pain: General Pain Documentation (Adult, OB, Peds) Presence of Pain: denies pain/discomfort Presence of Pain Score (Auto-calculated): 0 Precautions: Patient Safety Communication Prior to Visit: Nursing Lines/Tubes/Drains (Rehab Status): Telemetry Patient History Comments: Pt is a 78 y.o. female who presents per chart with a past medical history of hypertension, diabetes mellitus and hyperthyroidism who presented to [facility] on 01/07 with a chief complaint of confusion. Of note this history is obtained from outside hospital documentation as the patient can not provide history. It seems that she was last known well at 11:30 p.m. the evening before presentation. noted she was having unusual behaviors, and difficulty ambulating. At [facility] she underwent a stroke alert and a tele neurology consultation. Her initial CT and CTA were free of evidence of a CVA. She was noted to be febrile in the emergency department, raising the concern for infectious cause of her delirium. Eventually she underwent an MRI of the brain which demonstrated diffuse restricted diffusion in the cerebral cortex bilaterally most pronounced in the parietal occipital region. Tele neurology consultation was most concern for encephalitis or meningitis and she was referred to [facility]. LP was attempted but not successfully completed. She has been on vancomycin, cefepime, ampicillin, and acyclovir. She was noted to have a blood sugar of greater than 500 on presentation, with pseudo hyponatremia. This has improved with insulin administration Admitting physician noted that patient may have had several weeks of more subtle difficulties prior to the more dramatic changes over last several days. Prior FRAME CLEANER history: none on file. Current Method of Nutrition: Route of Nutrition: NPO, No alternative means Respiratory Status: O2 Device: room air O2 Sat (%): 98 % Resp Rate: 18 Subjective information: Awake and alert, family members at bedside. Noted to be confused. RN reports patient coughing with intake overnight. Exam limited by cognition: No (confused but did not limit exam) Objective Evaluation: Oral Motor: Cranial Nerve Exam CN V (Trigeminal) strong equal bilateral strength of masseter and temporal muscles CN VII (Facial) strong bilateral movement of upper and lower face CN IX (Glossopharyngeal) voice quality strong and clear CN X (Vagus) uvula is midline CN XI (Accessory) raises head off pillow without difficulty CN XII (Hypoglossal) clearly articulated speech Vocal Quality: WDL GRBAS: A perceptual rating scale for voice parameters Rating scale of 0 to 3 0 = no impairment 1 = minimal to mild impairment 2 = moderate impairment 3 = severe impairment Subjective Voice Evaluation Grade of dysphonia (G): 0 Roughness (R): 0 Breathiness (B): 0 Asthenia (A): 0 Strain (S): 0 Positioning: High Hoffman's (60-90 degrees) Anticipatory Phase: Intact Foods and Liquids Trialed: Modality: Amount: Ice Teaspoon x3 Thin Teaspoon x3 Thin Straw x8 Dysphagia- pureed (IDDSI 4) Teaspoon x5 Oral Phase Function Comments Oral Mucosa Intact Dentition Natural teeth Labial Closure Intact Mastication Unable to assess Oral Stasis Absent Cough before the swallow Absent Oral Phase Summary: oral phase intact with consistencies assessed. did not present chewable solids due to mental status. Pharyngeal Phase Function Comments Perceived Swallow Present Cough Response Yes, Immediate (x1) Throat Clear No Subjective Complaint of Residue Absent Pharyngeal Phase Summary: demonstrated overt s/s of aspiration x1 including immediate cough with thin liquids. likely isolated occurrence. Voice and Swallow Outcomes: Functional Oral Intake Scale: Level 5 - Total oral intake of multiple consistencies requiring special prep Clinical Impression: Kerrie Kearney presents with possible oropharyngeal dysphagia in the setting of admission for confusion. Given current presentation, recommend diet of puree solids and thin liquids, with 1:1 supervision during intake. Recommend meds crushed or whole in puree. FRAME CLEANER to follow for ongoing dysphagia management and determine readiness for diet advancement vs need for instrumental swallow study. Anticipate improvement as mental status improves. Plan for next session: determine readiness for diet advancement vs need for MBS Patient Education/Instruction Learners: Patient, Family Education provided: Dysphagia recommendations/impressions, Role of this discipline, Plan of care Teaching method: Verbal Education/Instruction Learner response: Needs review (needs review with patient, family demonstrated understanding) Learning preferences: Auditory Learning considerations: Cognition Stroke education: Role of rehabilitation discipline Acute FRAME CLEANER Goals Plan of Care by MAYRA Campbell at 01/12/2024 9:49 AM Version 1 of 1 Problem: Dysphagia Goal: Ongoing Assessment - Patient will participate in ongoing assessment by accepting various PO consistency trials with appropriate participation/oral acceptance and no significant respiratory complications to determine readiness for diet advancement vs MBS. Outcome: Ongoing Speech Language Pathologist: MAYRA Campbell Time In: 948 Time Out: 1002 Total Visit Time: 13 minutes Total Treatment Time (skilled, billable minutes): 13 minutes PPE used during patient interaction: facemask, gloves, protective eye shield Patient location/status at end of session: bed with head of bed elevated Patient alarms at end of session: none altered Needs in reach. FRAME CLEANER Evaluation and Treatment Time Swallowing Eval 81311: 13 Upon discontinuation of Acute Care Speech Therapy Services or patient discharge from the hospital this note represents the current Speech Therapy Discharge Summary Patient Information: Inpatient/Outpatient: Inpatient Weight: N/A Code Status: Full IV: N/A Only Outpatient Blacksmith Hammer Operator: N/A Phone Number: N/A Procedure Information: Exam: Lumbar Puncture with Fluroscopy Needle In: 1445 Needle Out: 1457 Attending: Jethro Fellow: N/A Resident: N/A RA: Liliane Patient Summary: Pre Pain: N/A Post Pain: N/A Are Pre/Post vitals in IHIS:Yes Things To Do: Document CSF collected in IHIS:Yes CSF taken to lab:Yes Report Handoff: Patient to lie flat until:1557 Department of Pharmacy Outside Facility Transfer Note Patient: Kerrie Kearney Room/Bed: 0876/A Patient has transferred from an outside hospital ([facility]). I have contacted the facility and confirmed the following antimicrobial, antiepileptic, and anticoagulant medications were received by the patient prior to arrival at [facility]: Antimicrobials: Vancomycin 1 g on 01/09 @ 1852 Acyclovir 595 mg on 01/09 @ 2347 Ampicillin 2 g on 01/10@0515 Cefepime2 g on 01/09 @ 2323 Please feel free to contact me with any further questions. Name: Rin Morales RPH Phone #: [phone] Date/Time: 01/11/2024 1:39 PM Department of Pharmacy Renal Documentation Note Patient: Kerrie Kearney Room/Bed: 0876/A Assessment and Plan: The patient is currently prescribed acyclovir 300 mg every 8 hours and ampicillin 2 G every 4 hours. The patient's most recent renal function markers include: Weight: Wt Readings from Last 1 Encounters: 01/11/24 66.2 kg (146 lb) Estimated Creatinine Clearance: 38 mL/min (by C-G formula based on SCr of 1.11 mg/dL). Based on these values - The following adjustments have been made: acyclovir 300mg every 12 hours and ampicillin 2 G every 6 hours. I have modified the orders in IHIS to reflect the above plan.. Please contact with any questions, Name: Rin Morales RPH Phone: [phone] Date/Time: 01/11/2024 1:02 PM H&P Procedure Update: I have reviewed the previous H&P and verify there aren't relevant updates. CBC Lab Results Component Value Date WBC 9.03 01/11/2024 HGB 12.4 01/11/2024 HCT 38.5 01/11/2024 PLATELET 274 01/11/2024 MCV 86.7 01/11/2024 EDIF Lab Results Component Value Date RBCDISTRIBU 12.5 01/11/2024 GRNLOCYT 80.2 01/11/2024 LYMPHOCYT 11.7 01/11/2024 MONOCYTELEC 6.9 01/11/2024 EOSINOPHILS 0.3 01/11/2024 BASOPHILS 0.7 01/11/2024 LYMPHOCYTABS 1.06 (L) 01/11/2024 EOSINOPHLABS <0.04 01/11/2024 PLATELET 274 01/11/2024 MPV 10.8 01/11/202401/10 INR 1.1 acyclovir 5 mg/kg (Order-Specific) Intravenous Q8H ampicillin 2 g Intravenous Q4H cefTRIAXone 2 g Intravenous Q24H [START ON 01/12/2024] enoxaparin 40 mg Subcutaneous Q24H insulin glargine 10 Units Subcutaneous QHS Insulin regular Subcutaneous Q6H methimazole 5 mg Oral TID Pantoprazole 40 mg Oral Daily vancomycin 20 mg/kg (Adjusted) Intravenous Q24H Not on File Consent will be signed and operative site(s) confirmed with the patient/spouse. Procedure and Vascular Access Pre-Procedure Evaluation Note A consult has been placed for a lumbar puncture on this patient. This is a diagnostic procedure. For this procedure, laterality is N/A. Diagnostic labs have been ordered by the referring team. If not these will need to be ordered prior to the procedure. Labwork has been reviewed: No results found for: INR No results found for: PLATELET No results found for: HGB The labs are unacceptable to proceed with the procedure. Current Allergies:Not on File The medication list has been reviewed. Prior to starting the procedure, there is not medication to hold. Code status is None The patient is not able to provide consent. Consent will be obtained and matches procedure being performed. The estimated start time for this procedure is pending INR/plt, primary team note, which has been communicated to the RN and the primary service. The patient is not required to be NPO. PVAT WOJCIECH: HUSSEIN Gill Contact # [phone] documented in this encounter [facility] 01-29-2024 Miscellaneous Notes Problem: Adult Inpatient Plan of Care Goal: Plan of Care Review Outcome: Progressing Goal: Patient-Specific Goal (Individualized) Outcome: Progressing Goal: Absence of Hospital-Acquired Illness or Injury Outcome: Progressing Goal: Optimal Comfort and Wellbeing Outcome: Progressing Goal: Readiness for Transition of Care Outcome: Progressing Problem: Pain Acute Goal: Optimal Pain Control and Function Outcome: Progressing Problem: Fall Injury Risk Goal: Fall/Trauma/Injury Risk: Absence of Trauma/Injury/Falls Description: Patient will demonstrate the desired outcomes. Outcome: Progressing Goal: Knowledge of risk factors/behavior modification Description: Knowledge of risk factors/behavior modification for fall/injury prevention Outcome: Progressing Thierno Mcnamara RN Problem: OT - ADLs Goal: Lower Body Dressing - Patient will complete lower body dressing tasks with standby assistance using adaptive equipment/compensatory strategies as needed for improved ability to complete self-care activities. Outcome: Ongoing Goal: Bathing - Patient will perform full body bathing routine with standby assistance while seated for improved ability to complete self-care activities Outcome: Ongoing Problem: OT - Strength/ROM Goal: Strength/ROM ADL Participation - Patient will participate in UE exercise program with independence to prevent deconditioning while in hospital and to max UE ROM/Coordination/strength for ADLs. Outcome: Ongoing Problem: OT - Transfers Goal: Transfers Toilet/ Bedside Commode - Patient will transfer to/from toilet/bedside commode with standby assistance for improved ability to safely complete ADLs. Outcome: Progressing Problem: OT - Endurance Goal: Endurance Functional Mobility - Patient will complete distance needed for common household mobility with no greater than 0 rest breaks for improved tolerance to safely complete I/ADL's Outcome: Progressing Problem: OT - Cognition Goal: Cognition Simple ADL - Patient will demonstrate improved cognition, completing simple ADL task for 8-10 minutes with no greater than min cues required to maintain attention. Outcome: Progressing Problem: Adult Inpatient Plan of Care Goal: Plan of Care Review Outcome: Progressing Goal: Patient-Specific Goal (Individualized) Outcome: Progressing Goal: Absence of Hospital-Acquired Illness or Injury Outcome: Progressing Goal: Readiness for Transition of Care Outcome: Progressing Problem: Adult Inpatient Plan of Care Goal: Plan of Care Review Outcome: Progressing Goal: Patient-Specific Goal (Individualized) Outcome: Progressing Goal: Absence of Hospital-Acquired Illness or Injury Outcome: Progressing Goal: Optimal Comfort and Wellbeing Outcome: Progressing Goal: Readiness for Transition of Care Outcome: Progressing Problem: Pain Acute Goal: Optimal Pain Control and Function Outcome: Progressing Problem: Fall Injury Risk Goal: Fall/Trauma/Injury Risk: Absence of Trauma/Injury/Falls Description: Patient will demonstrate the desired outcomes. Outcome: Progressing Goal: Knowledge of risk factors/behavior modification Description: Knowledge of risk factors/behavior modification for fall/injury prevention Outcome: Progressing Thierno Mcnamara RN BEHAVIORAL EMERGENCY RESPONSE TEAM (JUANJO) RN NOTE 01/28/2024 Kerrie Kearney : 1945 JUANJO rounds: Pt was observed sitting in recliner chair and watching tv. PACKAGE LINER/sitter provided 1:1 safety monitoring in room. Pt expressed hopefulness for discharge soon and denied needs at this time. No behavioral issues or distress noted. Call JUANJO as needed to use as a resource for pt. JUANJO is available daily between [phone]. Oneil ORELLANA, JESSICA- JUANJO Pager: [phone] JUANJO Problem: Adult Inpatient Plan of Care Goal: Plan of Care Review Outcome: Progressing Goal: Patient-Specific Goal (Individualized) Outcome: Progressing Goal: Absence of Hospital-Acquired Illness or Injury Outcome: Progressing Goal: Optimal Comfort and Wellbeing Outcome: Progressing Goal: Readiness for Transition of Care Outcome: Progressing Problem: Pain Acute Goal: Optimal Pain Control and Function Outcome: Progressing Problem: Fall Injury Risk Goal: Fall/Trauma/Injury Risk: Absence of Trauma/Injury/Falls Description: Patient will demonstrate the desired outcomes. Outcome: Progressing Goal: Knowledge of risk factors/behavior modification Description: Knowledge of risk factors/behavior modification for fall/injury prevention Outcome: Progressing Problem: OT - ADLs Goal: Lower Body Dressing - Patient will complete lower body dressing tasks with standby assistance using adaptive equipment/compensatory strategies as needed for improved ability to complete self-care activities. Outcome: Progressing Goal: Bathing - Patient will perform full body bathing routine with standby assistance while seated for improved ability to complete self-care activities Outcome: Progressing Problem: OT - Transfers Goal: Transfers Toilet/ Bedside Commode - Patient will transfer to/from toilet/bedside commode with standby assistance for improved ability to safely complete ADLs. Outcome: Progressing Problem: OT - Endurance Goal: Endurance Functional Mobility - Patient will complete distance needed for common household mobility with no greater than 0 rest breaks for improved tolerance to safely complete I/ADL's Outcome: Progressing Problem: OT - Strength/ROM Goal: Strength/ROM ADL Participation - Patient will participate in UE exercise program with independence to prevent deconditioning while in hospital and to max UE ROM/Coordination/strength for ADLs. Outcome: Progressing Problem: OT - Cognition Goal: Cognition Simple ADL - Patient will demonstrate improved cognition, completing simple ADL task for 8-10 minutes with no greater than min cues required to maintain attention. Outcome: Progressing Problem: PT - General Goals Goal: Supine <-> Sit Transfers - Patient will perform supine to/from sit transfers with standby assistance and without use of hospital bed features in order to improve functional mobility and safety. Outcome: Progressing Goal: Sit <-> Stand Transfers - Patient will perform sit to/from stand transfers with standby assistance and wheeled walker in order to improve functional mobility and safety. Outcome: Progressing Goal: Ambulation - Patient will ambulate 100 feet with standby assistance and wheeled walker to improve ability to safely navigate home and community. Outcome: Progressing Goal: Stairs - Patient will ascend/descend 3 stairs with standby assistance, least restrictive device, and no railing(s) to improve ability to safely navigate home and community. Outcome: Progressing Problem: Adult Inpatient Plan of Care Goal: Plan of Care Review Outcome: Progressing Goal: Patient-Specific Goal (Individualized) Outcome: Progressing Goal: Absence of Hospital-Acquired Illness or Injury Outcome: Progressing Goal: Optimal Comfort and Wellbeing Outcome: Progressing Goal: Readiness for Transition of Care Outcome: Progressing Problem: Pain Acute Goal: Optimal Pain Control and Function Outcome: Progressing Problem: Fall Injury Risk Goal: Fall/Trauma/Injury Risk: Absence of Trauma/Injury/Falls Description: Patient will demonstrate the desired outcomes. Outcome: Progressing Goal: Knowledge of risk factors/behavior modification Description: Knowledge of risk factors/behavior modification for fall/injury prevention Outcome: Progressing Thierno Mcnamara RN Secure message to MD Chambers Patient becoming agitated and making comments that Im gonna kill my as soon as I see him again When I entered the room she was calm with me but she did shake her fists saying how chanell she was with him when trying to call him and he didn't respond. Is there anything I can possibly give her to calm her down? BEHAVIORAL EMERGENCY RESPONSE TEAM (JUANJO) RN NOTE 01/26/2024 Kerrie Kearney : 1945 Sitter Rounds: Pt observed sitting up in recliner talking with and two other visitors. Sitter present in room. Sitter reports no concerns. Patient's RN reports no behavioral concerns for JUANJO at this time. Migdalia Valenzuela RN- JUANJO Pager: [phone] JUANJO Phone: [phone] Notified regarding hyperglycemia 361. Had 53 carbs at dinner, no other meals charted for day. Will remove dextrose from IV fluids, change lispro coverage for nighttime coverage. Monitor response. Ian Bell MD Secure chat to MD Bell: patient blood sugar is currently 361. She does not get lispro at night and its only ordered with her meals. She is only getting 2 units of Glargine. Do we want to change the lispro order? also would you want to change her ivf to fluids without dextrose? Thanks JESSICA Willis [phone] Paged : [phone] Caio: Pt. blood sugar 361. Lispro is only ordered with meals not bedtime. She got 2 units of glargine. Do we want to change that order. Also her fluids are with dextrose. should we change to without? Thanks JESSICA Willis [phone] 1. Continue current diet order. 2. Will provide any flavor Ensure Clear (240 kcal, 8g PRO each)or equivalent based on availability once daily with Dinner to increase calorie and protein intake and to improve po intake 3. Monitor Weight status, Nutrition related Labs, Po intake & GI function -Please obtain a current wt to assist with determining malnutrition risk. 4. Monitor and encourage po intakes with goal of average po being 50-100%. -Please consistently document PO intake (including supplements) to assist with monitoring trends and plan of care goals. 5. Jet Pilot to follow. BEHAVIORAL EMERGENCY RESPONSE TEAM (JUANJO) RN NOTE 01/25/2024 Kerrie Kearney : 1945 JUANJO rounds: Pt was observed sleeping in recliner chair and was not disturbed at this time. PACKAGE LINER/sitter provided 1:1 safety monitoring in room and pt's was visiting at bedside. No behavioral issues or distress noted. Call JUANJO as needed to use as a resource for pt. JUANJO is available daily between [phone]. Oneil ORELLANA, RN- JUANJO Pager: [phone] JUANJO Problem: PT - General Goals Goal: Supine <-> Sit Transfers - Patient will perform supine to/from sit transfers with standby assistance and without use of hospital bed features in order to improve functional mobility and safety. Outcome: Progressing Goal: Sit <-> Stand Transfers - Patient will perform sit to/from stand transfers with standby assistance and wheeled walker in order to improve functional mobility and safety. Outcome: Progressing Goal: Ambulation - Patient will ambulate 100 feet with standby assistance and wheeled walker to improve ability to safely navigate home and community. Outcome: Progressing Problem: Adult Inpatient Plan of Care Goal: Plan of Care Review Outcome: Progressing Goal: Patient-Specific Goal (Individualized) Outcome: Progressing Goal: Absence of Hospital-Acquired Illness or Injury Outcome: Progressing Goal: Optimal Comfort and Wellbeing Outcome: Progressing Goal: Readiness for Transition of Care Outcome: Progressing Problem: Pain Acute Goal: Optimal Pain Control and Function Outcome: Progressing Problem: Fall Injury Risk Goal: Fall/Trauma/Injury Risk: Absence of Trauma/Injury/Falls Description: Patient will demonstrate the desired outcomes. Outcome: Progressing Goal: Knowledge of risk factors/behavior modification Description: Knowledge of risk factors/behavior modification for fall/injury prevention Outcome: Progressing Problem: OT - ADLs Goal: Lower Body Dressing - Patient will complete lower body dressing tasks with standby assistance using adaptive equipment/compensatory strategies as needed for improved ability to complete self-care activities. Outcome: Progressing Goal: Bathing - Patient will perform full body bathing routine with standby assistance while seated for improved ability to complete self-care activities Outcome: Progressing Problem: OT - Transfers Goal: Transfers Toilet/ Bedside Commode - Patient will transfer to/from toilet/bedside commode with standby assistance for improved ability to safely complete ADLs. Outcome: Progressing Problem: OT - Endurance Goal: Endurance Functional Mobility - Patient will complete distance needed for common household mobility with no greater than 0 rest breaks for improved tolerance to safely complete I/ADL's Outcome: Progressing Problem: OT - Strength/ROM Goal: Strength/ROM ADL Participation - Patient will participate in UE exercise program with independence to prevent deconditioning while in hospital and to max UE ROM/Coordination/strength for ADLs. Outcome: Progressing Problem: OT - Cognition Goal: Cognition Simple ADL - Patient will demonstrate improved cognition, completing simple ADL task for 8-10 minutes with no greater than min cues required to maintain attention. Outcome: Progressing Problem: PT - General Goals Goal: Supine <-> Sit Transfers - Patient will perform supine to/from sit transfers with standby assistance and without use of hospital bed features in order to improve functional mobility and safety. Outcome: Progressing Goal: Sit <-> Stand Transfers - Patient will perform sit to/from stand transfers with standby assistance and wheeled walker in order to improve functional mobility and safety. Outcome: Progressing Goal: Ambulation - Patient will ambulate 100 feet with standby assistance and wheeled walker to improve ability to safely navigate home and community. Outcome: Progressing Goal: Stairs - Patient will ascend/descend 3 stairs with standby assistance, least restrictive device, and no railing(s) to improve ability to safely navigate home and community. Outcome: Progressing Problem: PT - General Goals Goal: Supine <-> Sit Transfers - Patient will perform supine to/from sit transfers with standby assistance and without use of hospital bed features in order to improve functional mobility and safety. Outcome: Ongoing Goal: Ambulation - Patient will ambulate 100 feet with standby assistance and wheeled walker to improve ability to safely navigate home and community. Outcome: Ongoing Goal: Stairs - Patient will ascend/descend 3 stairs with standby assistance, least restrictive device, and no railing(s) to improve ability to safely navigate home and community. Outcome: Ongoing Problem: PT - General Goals Goal: Sit <-> Stand Transfers - Patient will perform sit to/from stand transfers with standby assistance and wheeled walker in order to improve functional mobility and safety. Outcome: Progressing BEHAVIORAL EMERGENCY RESPONSE TEAM (JUANJO) RN NOTE 01/24/2024 Kerrie Kearney : 1945 JUANJO rounds: Pt was observed sitting up in chair and visiting with . PACKAGE LINER/sitter was checking pt's blood glucose. No behavioral issues, distress, or needs noted for the JUANJO at this time. Call JUANJO as needed to use as a resource for pt. JUANJO is available daily between [phone]. Oneil ORELLANA, RN- JUANJO Pager: [phone] JUANJO Problem: OT - Transfers Goal: Transfers Toilet/ Bedside Commode - Patient will transfer to/from toilet/bedside commode with standby assistance for improved ability to safely complete ADLs. Outcome: Ongoing Problem: OT - Cognition Goal: Cognition Simple ADL - Patient will demonstrate improved cognition, completing simple ADL task for 8-10 minutes with no greater than min cues required to maintain attention. Outcome: Ongoing Problem: Adult Inpatient Plan of Care Goal: Plan of Care Review Outcome: Progressing Goal: Patient-Specific Goal (Individualized) Outcome: Progressing Goal: Absence of Hospital-Acquired Illness or Injury Outcome: Progressing Goal: Optimal Comfort and Wellbeing Outcome: Progressing Goal: Readiness for Transition of Care Outcome: Progressing Problem: Pain Acute Goal: Optimal Pain Control and Function Outcome: Progressing Problem: Fall Injury Risk Goal: Fall/Trauma/Injury Risk: Absence of Trauma/Injury/Falls Description: Patient will demonstrate the desired outcomes. Outcome: Progressing Goal: Knowledge of risk factors/behavior modification Description: Knowledge of risk factors/behavior modification for fall/injury prevention Outcome: Progressing Problem: OT - ADLs Goal: Lower Body Dressing - Patient will complete lower body dressing tasks with standby assistance using adaptive equipment/compensatory strategies as needed for improved ability to complete self-care activities. Outcome: Progressing Goal: Bathing - Patient will perform full body bathing routine with standby assistance while seated for improved ability to complete self-care activities Outcome: Progressing Problem: OT - Transfers Goal: Transfers Toilet/ Bedside Commode - Patient will transfer to/from toilet/bedside commode with standby assistance for improved ability to safely complete ADLs. Outcome: Progressing Problem: OT - Endurance Goal: Endurance Functional Mobility - Patient will complete distance needed for common household mobility with no greater than 0 rest breaks for improved tolerance to safely complete I/ADL's Outcome: Progressing Problem: OT - Strength/ROM Goal: Strength/ROM ADL Participation - Patient will participate in UE exercise program with independence to prevent deconditioning while in hospital and to max UE ROM/Coordination/strength for ADLs. Outcome: Progressing Problem: OT - Cognition Goal: Cognition Simple ADL - Patient will demonstrate improved cognition, completing simple ADL task for 8-10 minutes with no greater than min cues required to maintain attention. Outcome: Progressing Problem: PT - General Goals Goal: Supine <-> Sit Transfers - Patient will perform supine to/from sit transfers with standby assistance and without use of hospital bed features in order to improve functional mobility and safety. Outcome: Progressing Goal: Sit <-> Stand Transfers - Patient will perform sit to/from stand transfers with standby assistance and wheeled walker in order to improve functional mobility and safety. Outcome: Progressing Goal: Ambulation - Patient will ambulate 100 feet with standby assistance and wheeled walker to improve ability to safely navigate home and community. Outcome: Progressing Goal: Stairs - Patient will ascend/descend 3 stairs with standby assistance, least restrictive device, and no railing(s) to improve ability to safely navigate home and community. Outcome: Progressing BEHAVIORAL EMERGENCY RESPONSE TEAM (JUANJO) RN NOTE 01/23/2024 Kerrie Kearney : 1945 JUANJO sitter round: PACKAGE LINER/sitter at bedside providing care I did not disturb at this time. JUANJO is available as a resource daily from [phone]. Contact if needs arise. Ashley Stallworth RN-[facility] Pager: [phone] JUANJO Phone: [phone] Problem: OT - ADLs Goal: Lower Body Dressing - Patient will complete lower body dressing tasks with standby assistance using adaptive equipment/compensatory strategies as needed for improved ability to complete self-care activities. Outcome: Ongoing Goal: Bathing - Patient will perform full body bathing routine with standby assistance while seated for improved ability to complete self-care activities Outcome: Ongoing Problem: OT - Transfers Goal: Transfers Toilet/ Bedside Commode - Patient will transfer to/from toilet/bedside commode with standby assistance for improved ability to safely complete ADLs. Outcome: Ongoing Problem: OT - Strength/ROM Goal: Strength/ROM ADL Participation - Patient will participate in UE exercise program with independence to prevent deconditioning while in hospital and to max UE ROM/Coordination/strength for ADLs. Outcome: Ongoing Problem: OT - Endurance Goal: Endurance Functional Mobility - Patient will complete distance needed for common household mobility with no greater than 0 rest breaks for improved tolerance to safely complete I/ADL's Outcome: Progressing Problem: OT - Cognition Goal: Cognition Simple ADL - Patient will demonstrate improved cognition, completing simple ADL task for 8-10 minutes with no greater than min cues required to maintain attention. Outcome: Progressing Problem: PT - General Goals Goal: Supine <-> Sit Transfers - Patient will perform supine to/from sit transfers with standby assistance and without use of hospital bed features in order to improve functional mobility and safety. Outcome: Ongoing Goal: Sit <-> Stand Transfers - Patient will perform sit to/from stand transfers with standby assistance and wheeled walker in order to improve functional mobility and safety. Outcome: Ongoing Goal: Ambulation - Patient will ambulate 100 feet with standby assistance and wheeled walker to improve ability to safely navigate home and community. Outcome: Ongoing Patient Mg 1.3 and K 3.4. MD Titus Acevedo notified. Orders placed for replacements. Patient post-op after ex lap, MERCEDES, SBR C/o pain. Ordered morphine 3 mg prn IV Que Machado MD Kerrie Caio ([id number]) PRE OPERATIVE DIAGNOSIS Small bowel obstruction [K56.609] POST OPERATIVE DIAGNOSIS Small bowel obstruction [K56.609] PROCEDURE PERFORMED 1) diagnostic laparoscopy 2) exploratory laparotomy 3) lysis of adhesions x2 hours 4) small bowel resection with stapled side to side anastomosis PRIMARY CLOSURE Yes INTRAOPERATIVE FINDINGS Dense omental and interloop adhesions in the pelvis forming a closed loop obstruction 20 cm of necrotic bowel RLQ drain in pelvis SURGEON Surgeons and Role: * Jacob Chester MD - Primary ANESTHESIOLOGIST Anesthesiologist: Vinod Duke MD; Michelle Woodruff MD PATCH MACHINE OPERATOR: Gilda Meyers APRN-PATCH MACHINE OPERATOR Resin Coater: KYA Emmanuel SURGICAL STAFF Acetylene Torch Operator: Joce Mei RN Physician Carry In Worker: Alisha Trimble, PAC Relief Acetylene Torch Operator: Amber Chacon RN Scrub Person: Annie Webb RN Resident Assisting: Josh Camacho MD; Mariela Carrillo MD COMPLICATIONS None ESTIMATED BLOOD LOSS 100 ml SPECIMENS ID Type Source Tests Collected by Time Destination 1 : small bowel Permanent TISSUE SURG PATH REQUEST Jacob Chester MD 01/22/2024 1502 Jacob Chester MD January 22, 2024 4:37 PM [facility] Trauma, Critical Care, and Burn Surgery Operative Report Name: Kerrie Kearney Date of : 1945 Date of Operation: 01/22/2024 Preoperative Diagnosis: closed loop small bowel obstruction Postoperative Diagnosis: closed loop small bowel obstruction, necrotic bowel Findings: Dense omental and interloop adhesions in the pelvis forming a closed loop obstruction 20 cm of necrotic bowel RLQ drain in pelvis Procedure(s) Preformed: 1) diagnostic laparoscopy 2) exploratory laparotomy 3) lysis of adhesions x2 hours 4) small bowel resection with stapled side to side anastomosis Surgeon: Jacob Chester MD Anesthesiologist: Michelle Woodruff MD Surgical Staff: Acetylene Torch Operator: Joce Mei RN Physician Carry In Worker: Alisha Trimble PAC Relief Acetylene Torch Operator: Amber Chacon RN Scrub Person: Annie Webb RN Resident Assisting: Josh Camacho MD; Mariela Carrillo MD Anesthesia: General Specimen(s): ID Type Source Tests Collected by Time Destination 1 : small bowel Permanent TISSUE SURG PATH REQUEST Jacob Chester MD 01/22/2024 1502 Estimated Blood Loss: 100 mL Complication(s): None Indication for Operation: 78 year old female with history of cognitive impairment and multiple abdominal surgeries including open cholecystectomy, appendectomy, ZE/BSO who is admitted to the medical service for ileus vs SBO. CT was done demonstrating possible closed loop bowel obstruction. WBC normal, abdominal exam relatively soft and benign. Will proceed to the OR for diagnostic laparoscopy, possible laparotomy. Description of Procedure: The procedure, alternatives, risk, limitations, and benefits were discussed at length with the patient and their family . All questions were answered and the patient and their family understood the surgical indication. After obtaining informed consent, the patient was brought to the operating room. She was placed in supine position ensuring all bony prominences were padded. Sequential compression device was applied to the ankles for deep venous thrombi prophylaxis prior to the induction of anesthesia. General endotracheal anesthesia was induced. Preoperative prophylactic antibiotics were given. A leonard catheter was in-place upon arrival to the operating room. A time out was completed, verify correct patient, allergies, procedure, site, and positioning prior to the beginning of the procedure with anesthesia, surgical aide, operating room nurse, and members of the surgical team. The surgical site was then prepped with chlorhexidine and allowed to the appropriate amount of time to dry. Site was then draped in standard sterile fashion. Supraumbilical incision was made and dissection down to the fascia, which was elevated and incised. The peritoneum was elevated and incised with entry into the abdominal cavity. Finger-sweep was done without significant adhesions. Stay sutures were placed. 12 mm Chavo port was placed and the abdomen insufflated. A 5 mm port was a handsbreadth above this. The omentum was lifted off the small bowel. There was a segment that was clearly necrotic in the mid abdomen deep within adhesions. We thus decided to open. A midline incision was made incorporating the two port sites. There were dense adhesions in the pelvis and interloop adhesions that were forming a closed loop obstruction around the 20 cm of necrotic bowel. We spent 2 hours lysing adhesions. The small bowel was ran from terminal ileum to ligament of Treitz. We resected the 20 cm of small bowel with BRYAN blue linear staplers. The intervening mesentery was ligated with Ligasure. The rest of the small bowel was healthy without ischemia or serosal injuries. We performed a side by side small bowel anastomosis with BRYAN blue load. The common channel was stapled off with another blue load. The mesenteric defect was closed with 3-0 vicryl. The staple line was imbricated with 3-0 silk. The abdomen was irrigated until effluent ran clear. A 19 Fr PAOLA drain was placed in the pelvis and brought out through the right lower quadrant. A drain stitch was placed. The fascia was closed with #1 PDS in a continuous fashion. The skin was stapled. Kerrie Kearney tolerated the procedure well without any complications. She was extubated in the operating room and taken to the post-anesthesia care unit hemodynamically stable. She will return to floor once meeting post-anesthesia care unit discharge criteria. I was present for the critical and edwards portions of the procedure and was immediately available to provide assistance throughout the entirety of the case. Jacob Chester MD Acute Care Surgery Fellow Division of Trauma, Critical Care, and Burn Department of Surgery Overnight Cross-Cover: Previous Progress Notes and/or H&P Reviewed. Patient with nausea, currently NPO. Glucose much better controlled and now down to 161. Will reduce Lantus dose to 4 units until PO intake improves. Continue regular SSI. Update, 11:51 PM - patient developed brown-black emesis. NG placed and confirmed on KUB. Abdomen is soft, non-tender/non-distended on examination. Will keep NG to LIWS. [place] mitts ordered as patient pulled out NG tube earlier today. Will obtain CT abdomen/pelvis to evaluate for SBO now that NG is in place. Update, 4:38 AM - discussed CT with radiology, concerning for closed loop SBO. Will consult gen surg. Checking CBC, chem, LFTs, lactate, INR, and T/C. Continue NPO with NG to LIWS. Titus Acevedo MD [facility] RN sent page to MD Martin Kapadia III regarding patient report of nausea and increasing abdominal pain. Order placed for NG to suction and KUB. NG placed without difficulty, patient tolerating. Patient reporting abdominal pain/burning, prn tylenol administered. MD Lety Rodriguez notified of patient symptom. No orders received. Problem: Adult Inpatient Plan of Care Goal: Plan of Care Review Outcome: Progressing Goal: Patient-Specific Goal (Individualized) Outcome: Progressing Goal: Absence of Hospital-Acquired Illness or Injury Outcome: Progressing Goal: Optimal Comfort and Wellbeing Outcome: Progressing Problem: Pain Acute Goal: Optimal Pain Control and Function Outcome: Progressing Problem: Fall Injury Risk Goal: Fall/Trauma/Injury Risk: Absence of Trauma/Injury/Falls Description: Patient will demonstrate the desired outcomes. Outcome: Progressing Goal: Knowledge of risk factors/behavior modification Description: Knowledge of risk factors/behavior modification for fall/injury prevention Outcome: Progressing Pt diet advanced to clears. Pt currently tolerating sprite, water and sips of broth. Will continue to monitor and encourage small sips. Administered morning medications in applesauce one by one giving patient breaks between each medication. Patient tolerated well, no emesis noted during or after administration. Patient reporting abdominal discomfort. PRN tylenol switched to liquid PO as patient did not tolerate tablet earlier in the shift. Liquid tylenol administered, patient began vomiting shortly after. MD Mick Alas notified that patient not tolerating anything by mouth at this time. Patient made NPO and abdominal xray ordered. Now multiple episodes of emesis this evening. Did not toelrate talbet or liquid tylenol CXR with some dilated loops, will formally eval with Abd XR to start, will make NPO for now. If concerns for obstruction/ileus may need to transition PO options to alternatives if constitutes to not tolerate. Has had Bms per I&O x3 Already on IVF Anti-emetic PRNs added RN called to room by sitter for patient report of lower back pain. PRN tylenol administered without difficulty, one minute after administration patient began vomiting. Patient with auditory gurgling and congested cough. Vitals obtained and oxygen saturation 94% on room air. Patient in no apparent distress, reports abdominal pain resolved after throwing up. MD Mick Alas notified of situation, cxray ordered. BEHAVIORAL EMERGENCY RESPONSE TEAM (JUANJO) RN NOTE 01/18/2024 Kerrie Kearney : 1945 JUANJO rounds: Pt was observed resting in bed and visiting with spouse. This RN introduced self and provided education on the role of JUANJO. Pt denied needs at this time and did not appear to be in distress. No behavioral issues noted. Pt was being monitored via video sitter. Call JUANJO as needed to use as a resource for pt. JUANJO is available daily between [phone]. Oneil ORELLANA, RN- JUANJO Pager: [phone] JUANJO Problem: Adult Inpatient Plan of Care Goal: Plan of Care Review Outcome: Progressing Goal: Patient-Specific Goal (Individualized) Outcome: Progressing Goal: Absence of Hospital-Acquired Illness or Injury Outcome: Progressing Goal: Optimal Comfort and Wellbeing Outcome: Progressing Goal: Readiness for Transition of Care Outcome: Progressing Problem: Pain Acute Goal: Optimal Pain Control and Function Outcome: Progressing Problem: Fall Injury Risk Goal: Fall/Trauma/Injury Risk: Absence of Trauma/Injury/Falls Description: Patient will demonstrate the desired outcomes. Outcome: Progressing Goal: Knowledge of risk factors/behavior modification Description: Knowledge of risk factors/behavior modification for fall/injury prevention Outcome: Progressing Problem: Adult Inpatient Plan of Care Goal: Plan of Care Review Outcome: Not Progressing Goal: Patient-Specific Goal (Individualized) Outcome: Not Progressing Goal: Absence of Hospital-Acquired Illness or Injury Outcome: Not Progressing Goal: Optimal Comfort and Wellbeing Outcome: Not Progressing Goal: Readiness for Transition of Care Outcome: Not Progressing Problem: Pain Acute Goal: Optimal Pain Control and Function Outcome: Not Progressing Problem: Fall Injury Risk Goal: Fall/Trauma/Injury Risk: Absence of Trauma/Injury/Falls Description: Patient will demonstrate the desired outcomes. Outcome: Not Progressing Goal: Knowledge of risk factors/behavior modification Description: Knowledge of risk factors/behavior modification for fall/injury prevention Outcome: Not Progressing Problem: OT - ADLs Goal: Lower Body Dressing - Patient will complete lower body dressing tasks with standby assistance using adaptive equipment/compensatory strategies as needed for improved ability to complete self-care activities. Outcome: Not Progressing Goal: Bathing - Patient will perform full body bathing routine with standby assistance while seated for improved ability to complete self-care activities Outcome: Not Progressing Problem: OT - Transfers Goal: Transfers Toilet/ Bedside Commode - Patient will transfer to/from toilet/bedside commode with standby assistance for improved ability to safely complete ADLs. Outcome: Not Progressing Problem: OT - Endurance Goal: Endurance Functional Mobility - Patient will complete distance needed for common household mobility with no greater than 0 rest breaks for improved tolerance to safely complete I/ADL's Outcome: Not Progressing Problem: OT - Strength/ROM Goal: Strength/ROM ADL Participation - Patient will participate in UE exercise program with independence to prevent deconditioning while in hospital and to max UE ROM/Coordination/strength for ADLs. Outcome: Not Progressing Problem: OT - Cognition Goal: Cognition Simple ADL - Patient will demonstrate improved cognition, completing simple ADL task for 8-10 minutes with no greater than min cues required to maintain attention. Outcome: Not Progressing Problem: PT - General Goals Goal: Supine <-> Sit Transfers - Patient will perform supine to/from sit transfers with standby assistance and without use of hospital bed features in order to improve functional mobility and safety. Outcome: Not Progressing Goal: Sit <-> Stand Transfers - Patient will perform sit to/from stand transfers with standby assistance and wheeled walker in order to improve functional mobility and safety. Outcome: Not Progressing Goal: Ambulation - Patient will ambulate 100 feet with standby assistance and wheeled walker to improve ability to safely navigate home and community. Outcome: Not Progressing Goal: Stairs - Patient will ascend/descend 3 stairs with standby assistance, least restrictive device, and no railing(s) to improve ability to safely navigate home and community. Outcome: Not Progressing Problem: Dysphagia Goal: Ongoing Assessment - Patient will participate in ongoing assessment by accepting various PO consistency trials with appropriate participation/oral acceptance and no significant respiratory complications to determine readiness for diet advancement vs MBS. Outcome: Met Problem: PT - General Goals Goal: Supine <-> Sit Transfers - Patient will perform supine to/from sit transfers with standby assistance and without use of hospital bed features in order to improve functional mobility and safety. Outcome: Progressing Goal: Sit <-> Stand Transfers - Patient will perform sit to/from stand transfers with standby assistance and wheeled walker in order to improve functional mobility and safety. Outcome: Progressing Goal: Ambulation - Patient will ambulate 100 feet with standby assistance and wheeled walker to improve ability to safely navigate home and community. Outcome: Progressing BEHAVIORAL EMERGENCY RESPONSE TEAM (JUANJO) RN NOTE 01/16/2024 Kerrie Kearney : 1945 Sitter Rounds: Patient resting in recliner and spouse seated on bench in room. Sitter present in room and denies having any behavioral concerns for JUANJO. JUANJO availability explained to sitter. Migdalia Valenzuela RN-[facility] Pager: [phone] JUANJO Phone: [phone] Problem: OT - ADLs Goal: Lower Body Dressing - Patient will complete lower body dressing tasks with standby assistance using adaptive equipment/compensatory strategies as needed for improved ability to complete self-care activities. Outcome: Ongoing Goal: Bathing - Patient will perform full body bathing routine with standby assistance while seated for improved ability to complete self-care activities Outcome: Ongoing Problem: OT - Strength/ROM Goal: Strength/ROM ADL Participation - Patient will participate in UE exercise program with independence to prevent deconditioning while in hospital and to max UE ROM/Coordination/strength for ADLs. Outcome: Ongoing Problem: OT - Transfers Goal: Transfers Toilet/ Bedside Commode - Patient will transfer to/from toilet/bedside commode with standby assistance for improved ability to safely complete ADLs. Outcome: Progressing Problem: OT - Endurance Goal: Endurance Functional Mobility - Patient will complete distance needed for common household mobility with no greater than 0 rest breaks for improved tolerance to safely complete I/ADL's Outcome: Progressing Problem: OT - Cognition Goal: Cognition Simple ADL - Patient will demonstrate improved cognition, completing simple ADL task for 8-10 minutes with no greater than min cues required to maintain attention. Outcome: Progressing Problem: Adult Inpatient Plan of Care Goal: Plan of Care Review Outcome: Progressing Goal: Patient-Specific Goal (Individualized) Outcome: Progressing Goal: Absence of Hospital-Acquired Illness or Injury Outcome: Progressing Goal: Optimal Comfort and Wellbeing Outcome: Progressing Goal: Readiness for Transition of Care Outcome: Progressing Problem: Pain Acute Goal: Optimal Pain Control and Function Outcome: Progressing Problem: Fall Injury Risk Goal: Fall/Trauma/Injury Risk: Absence of Trauma/Injury/Falls Description: Patient will demonstrate the desired outcomes. Outcome: Progressing Goal: Knowledge of risk factors/behavior modification Description: Knowledge of risk factors/behavior modification for fall/injury prevention Outcome: Progressing Problem: Adult Inpatient Plan of Care Goal: Plan of Care Review Outcome: Progressing Goal: Patient-Specific Goal (Individualized) Outcome: Progressing Goal: Absence of Hospital-Acquired Illness or Injury Outcome: Progressing Goal: Optimal Comfort and Wellbeing Outcome: Progressing Goal: Readiness for Transition of Care Outcome: Progressing Problem: Pain Acute Goal: Optimal Pain Control and Function Outcome: Progressing Problem: Fall Injury Risk Goal: Fall/Trauma/Injury Risk: Absence of Trauma/Injury/Falls Description: Patient will demonstrate the desired outcomes. Outcome: Progressing Goal: Knowledge of risk factors/behavior modification Description: Knowledge of risk factors/behavior modification for fall/injury prevention Outcome: Progressing BEHAVIORAL EMERGENCY RESPONSE TEAM (JUANJO) RN NOTE 01/15/2024 Kerrie Kearney : 1945 Sitter Rounds: Pt working with OT when JUANJO was rounding. Patient's present and observing. Sitter in room. JUANJO did not disrupt care. No needs reported for JUANJO at this time. Migdalia Valenzuela RN- JUANJO Pager: [phone] JUANJO Phone: [phone] Problem: OT - ADLs Goal: Bathing - Patient will perform full body bathing routine with standby assistance while seated for improved ability to complete self-care activities Outcome: Ongoing Problem: OT - Transfers Goal: Transfers Toilet/ Bedside Commode - Patient will transfer to/from toilet/bedside commode with standby assistance for improved ability to safely complete ADLs. Outcome: Ongoing Problem: OT - Endurance Goal: Endurance Functional Mobility - Patient will complete distance needed for common household mobility with no greater than 0 rest breaks for improved tolerance to safely complete I/ADL's Outcome: Ongoing Problem: OT - Strength/ROM Goal: Strength/ROM ADL Participation - Patient will participate in UE exercise program with independence to prevent deconditioning while in hospital and to max UE ROM/Coordination/strength for ADLs. Outcome: Ongoing Problem: OT - ADLs Goal: Lower Body Dressing - Patient will complete lower body dressing tasks with standby assistance using adaptive equipment/compensatory strategies as needed for improved ability to complete self-care activities. Outcome: Progressing Problem: OT - Cognition Goal: Cognition Simple ADL - Patient will demonstrate improved cognition, completing simple ADL task for 8-10 minutes with no greater than min cues required to maintain attention. Outcome: Progressing Problem: Dysphagia Goal: Ongoing Assessment - Patient will participate in ongoing assessment by accepting various PO consistency trials with appropriate participation/oral acceptance and no significant respiratory complications to determine readiness for diet advancement vs MBS. Outcome: Ongoing Problem: PT - General Goals Goal: Supine <-> Sit Transfers - Patient will perform supine to/from sit transfers with standby assistance and without use of hospital bed features in order to improve functional mobility and safety. Outcome: Ongoing Goal: Sit <-> Stand Transfers - Patient will perform sit to/from stand transfers with standby assistance and wheeled walker in order to improve functional mobility and safety. Outcome: Ongoing Goal: Ambulation - Patient will ambulate 100 feet with standby assistance and wheeled walker to improve ability to safely navigate home and community. Outcome: Ongoing Goal: Stairs - Patient will ascend/descend 3 stairs with standby assistance, least restrictive device, and no railing(s) to improve ability to safely navigate home and community. Outcome: Ongoing Problem: Pain Acute Goal: Optimal Pain Control and Function Outcome: Progressing Problem: Fall Injury Risk Goal: Fall/Trauma/Injury Risk: Absence of Trauma/Injury/Falls Description: Patient will demonstrate the desired outcomes. Outcome: Progressing Goal: Knowledge of risk factors/behavior modification Description: Knowledge of risk factors/behavior modification for fall/injury prevention Outcome: Progressing Problem: OT - ADLs Goal: Lower Body Dressing - Patient will complete lower body dressing tasks with standby assistance using adaptive equipment/compensatory strategies as needed for improved ability to complete self-care activities. Outcome: Ongoing Goal: Bathing - Patient will perform full body bathing routine with standby assistance while seated for improved ability to complete self-care activities Outcome: Ongoing Problem: OT - Transfers Goal: Transfers Toilet/ Bedside Commode - Patient will transfer to/from toilet/bedside commode with standby assistance for improved ability to safely complete ADLs. Outcome: Ongoing Problem: OT - Endurance Goal: Endurance Functional Mobility - Patient will complete distance needed for common household mobility with no greater than 0 rest breaks for improved tolerance to safely complete I/ADL's Outcome: Ongoing Problem: OT - Strength/ROM Goal: Strength/ROM ADL Participation - Patient will participate in UE exercise program with independence to prevent deconditioning while in hospital and to max UE ROM/Coordination/strength for ADLs. Outcome: Ongoing Problem: OT - Cognition Goal: Cognition Simple ADL - Patient will demonstrate improved cognition, completing simple ADL task for 8-10 minutes with no greater than min cues required to maintain attention. Outcome: Ongoing Problem: Adult Inpatient Plan of Care Goal: Plan of Care Review Outcome: Progressing Goal: Patient-Specific Goal (Individualized) Outcome: Progressing Goal: Absence of Hospital-Acquired Illness or Injury Outcome: Progressing Goal: Optimal Comfort and Wellbeing Outcome: Progressing Goal: Readiness for Transition of Care Outcome: Progressing Problem: Pain Acute Goal: Optimal Pain Control and Function Outcome: Progressing Problem: Fall Injury Risk Goal: Fall/Trauma/Injury Risk: Absence of Trauma/Injury/Falls Description: Patient will demonstrate the desired outcomes. Outcome: Progressing Goal: Knowledge of risk factors/behavior modification Description: Knowledge of risk factors/behavior modification for fall/injury prevention Outcome: Progressing Problem: Dysphagia Goal: Ongoing Assessment - Patient will participate in ongoing assessment by accepting various PO consistency trials with appropriate participation/oral acceptance and no significant respiratory complications to determine readiness for diet advancement vs MBS. Outcome: Progressing Problem: Adult Inpatient Plan of Care Goal: Plan of Care Review Outcome: Progressing Goal: Patient-Specific Goal (Individualized) Outcome: Progressing Goal: Absence of Hospital-Acquired Illness or Injury Outcome: Progressing Goal: Optimal Comfort and Wellbeing Outcome: Progressing Goal: Readiness for Transition of Care Outcome: Progressing Problem: Pain Acute Goal: Optimal Pain Control and Function Outcome: Progressing Problem: Fall Injury Risk Goal: Fall/Trauma/Injury Risk: Absence of Trauma/Injury/Falls Description: Patient will demonstrate the desired outcomes. Outcome: Progressing Goal: Knowledge of risk factors/behavior modification Description: Knowledge of risk factors/behavior modification for fall/injury prevention Outcome: Progressing Problem: Dysphagia Goal: Ongoing Assessment - Patient will participate in ongoing assessment by accepting various PO consistency trials with appropriate participation/oral acceptance and no significant respiratory complications to determine readiness for diet advancement vs MBS. Outcome: Ongoing Problem: Adult Inpatient Plan of Care Goal: Plan of Care Review Outcome: Progressing Goal: Patient-Specific Goal (Individualized) Outcome: Progressing Goal: Absence of Hospital-Acquired Illness or Injury Outcome: Progressing Goal: Optimal Comfort and Wellbeing Outcome: Progressing Goal: Readiness for Transition of Care Outcome: Progressing Problem: Pain Acute Goal: Optimal Pain Control and Function Outcome: Progressing Problem: Fall Injury Risk Goal: Fall/Trauma/Injury Risk: Absence of Trauma/Injury/Falls Description: Patient will demonstrate the desired outcomes. Outcome: Progressing Goal: Knowledge of risk factors/behavior modification Description: Knowledge of risk factors/behavior modification for fall/injury prevention Outcome: Progressing Problem: Dysphagia Goal: IOPI - Patient will participate in initial IOPI pressure (kPA) assessment session to identify initial anterior and posterior strength measures to determine need for skllied intervention Outcome: Progressing Goal: Effortful Swallow Goal - Patient will complete repetitions of effortful swallow until reaching a self-reported level of fatigue (7/10 rating) to improve pharyngeal clearance and airway protection during the swallow Outcome: Progressing Goal: MBS - Patient will participate in Modified Barium Swallow (MBS) Study to objectively assess oropharyngeal swallow function to most appropriately guide FRAME CLEANER plan of care Outcome: Progressing Goal: FEES - Patient will participate in Fiberoptic Endoscopic Evaluation of Swallowing (FEES) study to objectively assess pharyngeal swallow function to most appropriately guide FRAME CLEANER plan of care Outcome: Progressing Problem: FRAME CLEANER - Cognition Goal: Ongoing Assessment - Patient will participate in ongoing dynamic assessment of motor speech, expressive/receptive language, and cognitive-linguistic skills across 1 session to better assess deficits and most appropriately guide FRAME CLEANER plan of care Outcome: Progressing Problem: FRAME CLEANER - Language Goal: Communicate Wants/Needs - Patient will independently communicate basic wants/needs via any communication modality on at least 3 opportunities to improve functional communication and ability to direct care Outcome: Progressing Problem: FRAME CLEANER - AAC Goal: Utilization - Patient will use augmentative and alternative communication/speech generating device to communicate wants/needs/ideas on at least 5 occurrences to demonstrate improved independence communicating Outcome: Progressing Problem: FRAME CLEANER - Disorders of Consciousness Goal: Emergence - Patient will demonstrate emergence from disorders of consciousness as evidenced by accurate yes/no responses OR functional object use OR discriminatory choice making in 6/6 trials across at least 2-3 consecutive sessions. Outcome: Progressing Goal: Auditory Localized Response - Patient will demonstrate a localized response to auditory simulation in at least 2/4 opportunities in 2-3 consecutive sessions as a prerequisite sensory skill in preparation for auditory comprehension. Outcome: Progressing Goal: Object/Word ID - Patient will accurately identify words/objects from field of 2 via any modality, given no more than one repetition of cue within a 10 second interval, as a precursor for reading/augmentative and alternative communication. Outcome: Progressing Goal: Visual Tracking - Patient will visually track objects/photos across at least a 45-degree range within visual abilities via vertical or horizontal plane as a prerequisite skill for reading. Outcome: Progressing Goal: Object Manipulation - Patient will achieve object manipulation of at least 2 separate stimuli, max cues across 2-3 consecutive sessions as a precursor for augmentative and alternative communication. Outcome: Progressing Overnight Call: Previous Progress Notes and/or H&P Reviewed. NOTIFIED patient coughing whenever trying to eat, concern for potential aspiration Made NPO, speech eval in a.m. Patient was given Lantus 8 units last night, monitor sugars closely Presented to bedside for planned LP and after examination determined patient has significant scoliosis and will need referral to fluoroscopy for further workup. Team notified. documented in this encounter [facility] 01-26-2024 Consult note Formatting of th is note might be different from the original. PIV with Ultrasound Consultation and Evaluation Note: Assessment: Patient assessed and evaluated for peripheral IV insertion using ultrasound guidance. ID band present, allergies and limb precautions verified with patient/nurse. No evidence of ecchymosis, infiltration, hematoma, edema, or any condition that would prevent safe insertion of a peripheral IV with ultrasound. Insertion: Ultrasound guided PIV: 22 gauge 1.75 inch length Nexiva catheter inserted into left forearm site. Peripheral IV placed per aseptic technique using a chlorascrub swab for 30 seconds at insertion site under ultrasound guidance on 1 attempt, per [id number]. [] Used 0.5ml 1% lidocaine subcutaneously at insertion site [] Obtained labs. ( labeled labs checked against patients name band, placed labels on tubes and tubes left at bedside ) [X] Call light in reach. [X] Bed low and locked position. [X] Tray table within reach. Reassessment: Flushes easily, no edema, or leakage noted. Occlusive dressing applied. Denies pain at site. Patient tolerated procedure well. Education: Patient/Family informed to notify nurse of any complications including pain, redness, swelling, or leakage post insertion. Extra insertion Note if applicable: Associated Order(s): IP CONSULT TO SURGERY - GENERAL (EMERGENT) Acute Care Surgery Consult Note Patient: Kerrie Kearney Date: 01/22/2024 5:18 AM Consulting Service: gen med 6 Reason for Consult: 78 yo F with vomiting, initial concern for ileus since 01/17 - CT obtained this evening with concern for SBO HPI: Kerrie Kearney is a 78 y.o. female with PMH cognitive impairment, hyperthyroidism, T2DM, HTN, and prior open cholecystectomy, appendectomy, ZE/BSO, and who presents with encephalopathy. Acute care surgery is consulted to evaluate for small bowel obstruction. The patient has been admitted since 01/11/24 for acute confusion, headaches, and difficulty ambulating with fevers. He was evaluated by neurology and ID and completed 14 days of empiric antibiotics. On 01/17 AM, she developed some abdominal pain and nausea. KUB showed evidence of ileus vs SBO. She has had multiple bowel movements but overnight developed recurrent vomiting requiring replacement of an NG and CT imaging. CT shows concern for closed loop small bowel obstruction. The patient is afebrile and hemodynamically within normal limits. Labs show a normal WBC at 8.1. Lactate is pending. Since placement, NG has had about 500 cc of bilious output. She has one stool recorded from 01/19. The patient is encephalopathic at baseline and unable to answer questions. The patient is not anticoagulated. The patient is not on steroids or chemotherapy. REVIEW OF SYSTEMS: (all positives in bold, otherwise negative) Unable to obtain due to mental status. Medical History PAST MEDICAL/SURGICAL HISTORY PMH: cognitive impairment, hyperthyroidism, T2DM, HTN PSH: open cholecystectomy, appendectomy, ZE/BSO, and MEDS Current Outpatient Medications Medication Instructions Atorvastatin (LIPITOR) 10 mg, Oral, DAILY carveDILOL (COREG) 25 mg, Oral, 2 TIMES DAILY WITH MEALS Diltiazem (CARDIZEM CD) 120 mg, Oral, DAILY DULoxetine (CYMBALTA) 30 mg, Oral, DAILY glipiZIDE 2.5 mg, Oral, 2 TIMES DAILY Lisinopril (PRINIVIL) 20 mg, Oral, DAILY methimazole (TAPAZOLE) 5 mg, Oral, 3 TIMES DAILY omeprazole (PRILOSEC) 20 mg, Oral, DAILY FAMILY HISTORY Her family history is not on file. SOCIAL HISTORY has no history on file for tobacco use, alcohol use, and drug use. ALLERGIES Patient has no allergy information on record. Vitals/Physical Exam VITALS: Temp: [98 F (36.7 C)-99.1 F (37.3 C)] 98 F (36.7 C) Pulse (Heart Rate): [65-71] 70 Resp Rate: [14-17] 16 BP: (161-168)/(75-81) 167/75 O2 Sat (%): [92 %-96 %] 96 % O2 Sat (%): 96 % (01/22 336) O2 Device: room air (01/22 336) PHYSICAL EXAM Constitutional: No acute distress. HEENT: Head normocephalic, atraumatic. Cardiovascular: Regular rate and rhythm. Pulmonary/Chest: Unlabored breathing on room air. Abdomen: Soft, non-distended, non-tender. Open cholecystectomy incision. Extremities: Moving all extremities equally and purposefully. Neurological: Alert, oriented. No gross deficits. Skin: No rash noted. Psychiatric: Mood, affect, and memory normal. Labs/Imaging LABS: Recent Labs 01/22/24 0358 WBC 8.11 HGB 10.3* PLATELET 256 CREATSERUM 1.17 Recent Labs 01/22/24 0358 SODIUM 133* POTASSIUM 3.8 CHLORIDE 95* CO2 26 BUN 24 CREATSERUM 1.17 MAGNESIUM 1.8 No results for input(s): PT, PTT, INR in the last 72 hours. No results for input(s): AST, ALT, BILITOTAL, BILIDIRECT, TOTALPROTEIN, ALBUMIN, ALBUMINALB, ALBUMINFLD, ALBUMINCSF, ALBUMINSERUM, ALKPHOS, PREALBUMIN in the last 72 hours. Invalid input(s): ALB IMAGING CT ABDOMEN/PELVIS WITH CONTRAST XR ABDOMEN 1 VIEW PORTABLE Final Result IMPRESSION: Enteric tube within the stomach. ABDOMEN 1 VIEW PORTABLE Final Result IMPRESSION: Satisfactory position of the nasogastric tube. ABDOMEN 1 VIEW PORTABLE Final Result IMPRESSION: Unchanged likely small bowel ileus versus less likely obstruction. ABDOMEN 1 VIEW PORTABLE Final Result IMPRESSION: Ileus versus small bowel obstruction. CHEST 1 VIEW PORTABLE Final Result IMPRESSION: No acute cardiopulmonary disease FLUORO LUMBAR PUNCTURE Final Result IMPRESSION: Successful fluoroscopic-guided lumbar puncture with 14 ml of clear slightly xanthochromic CSF removed. Opening pressure: 13 cm H2O. Closing pressure: <9 cm H2O. Lumbar puncture performed by ISMA Burrell. Dr. Que Morelos was physically present for the edwards components of the procedure and was immediately available throughout the remaining portions of the procedure. I personally viewed and interpreted these images and I have reviewed and approved this report. Assessment/Plan Kerrie Kearney is a 78 y.o. female with PMH cognitive impairment, hyperthyroidism, T2DM, HTN, and prior open cholecystectomy, appendectomy, ZE/BSO, and who presents with encephalopathy. Acute care surgery is consulted to evaluate for small bowel obstruction. Imaging shows concern for a closed loop bowel obstruction. - NPO, IVF, NG decompression - Given closed loop physiology, will require operative intervention with diagnostic laparoscopy, possible exploratory laparotomy, possible bowel resection today - Booked and consented - Zosyn preoperatively (ordered) - Labs WNL - ACS will follow The plan was discussed with attending Dr. Galaviz. Thank you for the consultation and the opportunity to participate in the care of this patient. Oapl Whaley MD PGY-3 Department of Surgery [phone] Associated attestation - Jacob Chester MD - 01/22/2024 1:47 PM EDT Acute Care Surgery Attending Attestation Kerrie Kearney was seen and examined with Opal Whaley MD on 01/22/24. I personally reviewed relevant laboratory results and studies, as well as preformed critical components of the physical exam. Discussed the plan of care with the resident physician. I agree with the history, physical exam, assessment, and plan of care. 78 year old female with history of cognitive impairment and multiple abdominal surgeries including open cholecystectomy, appendectomy, ZE/BSO who is admitted to the medical service for ileus vs SBO. CT was done demonstrating possible closed loop bowel obstruction. WBC normal, abdominal exam relatively soft and benign. Will proceed to the OR for diagnostic laparoscopy, possible laparotomy. Jacob Chester MD Acute Care Surgery Fellow Division of Trauma, Critical Care and Burn Department of Surgery Images from the original note were not included. DIABETES EDUCATION CONSULT Kerrie Kearney is a 78 y.o. female admitted 01/11/2024. Consult received for diabetes education. Met with pt to review DM learning needs, barriers, and self management plan. Pt was resting in bed quietly, awake, alert and oriented x 3, zero s/sx of acute distress noted at the time of this encounter. Pt's was present at her bedside for support and actively participated in this DM self-management education. Bedside nursing staff to reinforce Diabetes Education: [x]Practicing checking glucoses Testing your blood sugar video [x]Practicing and teachback of insulin injection How to use insulin pen video [x]Carb control/portion control reinforcement Carbohydrates and Blood Sugar video Diabetes Education Resources: Link to diabetes education book in North Korean: DiabetesEducation.pdf Link to diabetes education book in Polish: DiabetesEducation_SP.pdf Diabetes videos: [email or web address]/osumych art/Content/StdDocument.[email or web address]?DOCHW [email or web address] Link to order the diabetes education books (you would login and select your location, select the disease, diabetes and then you will see the option to order the book): [email or web address] ng DM History: Type of Diabetes: Type 2 Diabetes Mellitus (T2DM) Date of diagnosis: > 10 years. Outpatient physician: None Last Seen: (n/a) Diabetes Complications: none known Home blood glucoses: Checking blood sugars about 0 times per day. Type of glucometer/strips: regular glucometer. Usual results are (n/a) Home diabetes medications: see med rec Intervention: (Diabetes Education): [x]Diabetes Education booklet provided to patient [x]Pathophysiology of Type 1 or 2 Diabetes [x]Target glucose range and target A1c [x]Self monitoring of glucose [x]Self administration of insulin [x]Nutrition modification/ plate method [x]Benefits of exercise [x]How to assess and treat hypoglycemia [x]How to assess and treat hyperglycemia [x]Sick day rules [x]Who to contact in an emergency [x]DKA prevention and symptoms Goals: Pt's goals for better outcomes: Zero goal set at the time of this encounter I recommend checking blood sugar 2 x daily (fasting), and at HS Diabetes Supplies: Denied difficulties obtaining medication and supplies. - Glucose monitoring supplies for twice daily: Glucose test strips: dispense 100 with 1 refill - Patient prefers any brand or substitute brand covered by insurance, Lancets: dispense 100 with 1 refill, and alcohol swabs: dispense 100 with 1 refill - The patient will need script for new glucometer: yes: Patient prefers any brand or substitute brand covered by insurance Insulin: New to insulin [x]YES []NO New to meal time insulin [x]YES []NO Insulin teaching done including site rotation, how to administer insulin []YES []NO Return demonstration [x]YES []NO (done by pt's ) Pt will benefit from a simple regimen. Pt and are unable to follow meal time insulin with corrections. Follow Up: [x]Per inpatient diabetes team note []Follow up with outpatient Diabetes Education Classes [x]Follow up with PCP Evaluation: Pt seen at her bedside today; we were able to complete DM education: Self monitoring blood sugar (SMBG) discussed. . We discussed before meals and bedtime, we also reviewed how to use BG levels to dose insulin before meals at home. How to self administer insulin, return demonstration provided by pt's with prompting. The plan is to reinforce this education consistent with each dose of insulin required to increase patient's confidence to self inject. Continue to reinforce self-management. Follow-up needed to reinforce this DM self-management education. Thank you, Agustin Pinzon CLINICAL SAFETY SPECIALIST-[employer] Claims Service Adjustor- Endocrinology, Diabetes & Metabolism Associated Order(s): IP CONSULT TO ENDOCRINOLOGY - DIABETES Images from the original note were not included. [facility] Inpatient Diabetes Consults - Initial Consult Note- TEAM 2 Assessment Uncontrolled Type 2 Diabetes Mellitus (A1c 10.6) with microvascular complications of nephropathy and retinopathy Admitted with concern for meningitis with AMS. Toxic MNG () On home methimazole 5mg 3 x per week under primary team. Barriers to Diabetes Self-Care: Cognitive issues .PMH: HTN, multinodular goiter with hyperthyroidism, CKD stage 3a/b, GERD, depression, hyperlipidemia. Adjusted carb coverage for post-prandial hyperglycemia. Plan 1. Hospital Plan: with this degree of hyperglycemia (A1c 10.6 and OSH BG 566), will need basal bolus regimen. Basal: Insulin glargine: 8 units at bedtime, continued Prandial: Insulin lispro: 1 unit per 12 gram carbs qachs & prn Correction: Insulin lispro: 1 unit(s) per every 50 mg/dL above 150 mg/dL qachs 2. Discharge Plan: Anticipated discharge disposition: Jail Facility Tentative Discharge Plan: If patient is requiring more/less prandial or basal insulin at the time of discharge, based on above titrations, please update the discharge recommendations. can be done by primary team. Glargine insulin 8 units nightly Lispro 2 units for a small meal and 4 units for a large meal Lispro correction scale Pre-meal blood sugar Add # units 201 to 250 1 251 to 300 2 301 to 350 3 351 to 400 4 401 or higher 5 3. Follow up needed: PCP after discharge from facility 4. Diabetes Education: Educator will attempt to meet with pt's CONSULT SIGN OFF See details from: Clinical Practice Guideline Inpatient Management of Diabetes Mellitus (DM): Non- Adults For avoidance of AM/fasting hypoglycemia, lower basal insulin by 10-20% if AM blood glucose is lower than target. For management of AM/fasting hyperglycemia, increase basal insulin by 10-20%, as long as there is no uncovered overnight carb intake. For avoidance of post-prandial hypoglycemia, lower prandial/correction insulin by 10-20% For management of post-prandial hyperglycemia, increase prandial/correction insulin by 10-20%. Thank you for allowing us to participate in the care of this patient. Our consult team will sign off today. If primary team having difficulty keeping patient within hospital targets after making insulin adjustments, please contact our team for additional assistance. Additional consult does not need placed. For provider vice president of operations, please use QGENDA : TEAM 2 Thank you for allowing us to participate in your patient's care. Diabetes consult: Kerrie Kearney is a 78 y.o. female being seen for diabetes management consult for T2DM, uncontrolled. HPI: Patient is not able to provide any history. History obtained from chart. She lives with her and she is not sure about her DM meds or degree of control. She denies feeling of confusion, pain, CP/SOB or any other complaints. Per chart, moved from [place] to [place] in 2023. Presented to OSH 01-07 with confusion. She had stroke alert there and also noted to have a fever. MRI showed diffuse restricted diffusion in the cerebral cortex bilaterally most pronounced in the parietal occipital region. Tele neurology consultation was most concern for encephalitis or meningitis and she was referred to [facility]. Currently on treatment with meropenem for concern for meningitis with PICC placement. At OSH, BG was 566 and was treated with basal 15 units + Lispro 5 units per meal. BG was 294 on admission. Pt was started on 8 units basal by primary team and 1:20 ICR. 10.6% at OSH on admission -Glucose in 500s at OSH. S/p IVFs and insulin Fasting blood glucose has improved but she has post-prandial elevated values. PMH: HTN, multinodular goiter with hyperthyroidism, CKD stage 3a/b, GERD, depression, hyperlipidemia. Per chart: patient has history of toxic multinodular goiter. She has been on methimazole 5 mg times per week Reason for Endocrinology-Diabetes Consult: A1C 10.7 with new insulin requirement. Appreciate recs for optimization of glucose Current inpatient diabetes medications at time of initial consult: Glargine 8 units nightly Lispro 1 unit insulin = 20 grams carbs every meal and at bedtime Correction Factor: 151-250 = 1 unit; 251-350 = 2 units; 351-450 = 3 units; Diabetes History: Type of Diabetes: Type 2 Diabetes Mellitus (T2DM) Date of diagnosis: > 20 years Outpatient physician: ? Prior was with: [facility] [address] [id number] Diabetes Complications: retinopathy and nephropathy Date of most recent dilated eye exam: unsure DKA occurrences: none Home blood glucoses: Thinks is checking blood glucose but does not recall any values From -2023 note: No blood sugar record available for review today. Reports checking 5-10 times per month, glucose range 200-250. Home diabetes medications: per chart/dispense report Metformin 1000mg twice daily Glipizide 2.5mg 1 per day Trulicity 1.5mg weekly - not able to obtain BP Medication(s): lisinopril and carvedilol Cholesterol Medication: atorvastatin Home diet/meal plan: unknown Hemoglobin A1c this admission: No results found for: HGBA1C HgbA1c 10.6 25-24 Hemoglobin A1c 8.5 (A) 08/02/2023 Inpatient Glucoses: Diet: Current Diet Orders Procedures DIET REGULAR With supervision Standing Status: Standing Number of Occurrences: 1 PMH: PMH: HTN, multinodular goiter with hyperthyroidism, CKD, GERD, depression, hyperlipidemia. SOCIAL HISTORY Lives with FAMILY HISTORY: unable to obtain due to AMS Her family history is not on file. REVIEW OF SYSTEMS: limited due to AMS but she denies confusion, pain, CP, SOB, bowel changes or any concerns. PHYSICAL EXAM General/Constitutional: female, who looks her stated age of 78 y.o.. No acute distress. Vital Signs: BP 131/62 (BP Location: Right arm, BP Position: Lying) Pulse 58 Temp 97.6 F (36.4 C) (Oral) Resp 16 Ht 1.549 m (5' 1) Wt 66.2 kg (146 lb) SpO2 99% BMI 27.59 kg/m , Wt Readings from Last 2 Encounters: 01/11/24 66.2 kg (146 lb) , Body mass index is 27.59 kg/m . O2 Sat (%): [96 %-99 %] 99 % O2 Device: room air Head: Normocephalic and atraumatic. Eyes: Sclerae and conjunctiva are clear. Neck: Supple, non-tender. . Cardiac: Regular rhythm, normal rate. No peripheral edema. Pulmonary/Chest: Lungs are clear to ascultation bilaterally with normal respiratory effort. Abdominal: Non-distended, normoactive bowel sounds. Soft, non-tender. Musculoskeletal: No bony deformities, normal muscle mass and tone Extremities: No cyanosis or clubbing Periperal Vascular Exam: 2+ dorsalis pedis pulses. Neurological: Conscious, alert but not oriented. Skin: Skin is warm and dry. Psychiatric: Appropriate mood and affect for her clinical situation. LABS 01-08-24 Lipids No results found for: HGBA1C No results found for: CHOLESTEROL, TRIG, HDL, LDLCALC, LDLDIRECT Creatinine Date Value Ref Range Status 01/14/2024 1.12 0.50 - 1.20 mg/dL Final No results found for: MICROALBUMIN, MICROALBUPOC Lab Results Component Value Date ALT 8 (L) 01/12/2024 AST 20 01/12/2024 No results found for: TSH, O9LTQMI, T4FREE Cardiac echo: EF = Results for orders placed in visit on 01/08/24 ECHOCARDIOGRAM (OUTSIDE) (Final) Diabetes Education Consult Note: Kerrie Kearney is a 78 y.o pt admitted on 01/11/2024, consult receive for diabetes education to review learning needs, barriers and DM self-management plan, DM education attempted today, pt was sitting up in fartun at her bedside, awake, alert and oriented, however pt was pleasantly confused, DM education deferred for 01/15/2024, DM education will be done with pt's . Thank you, Agustin Pinzon APRN - [employer] Claims Service Adjustor/Endo. Diabetes & Metabolism VASCULAR ACCESS NOTE: Thank you for your referral to the Vascular Access Team. Consulted for placement of: [] PIV [] Midline [x] PICC [] Arms assessed for device placement, viable vessels identified: No device placed due to: [] Awaiting OPAT/final recommendations from ID [] Awaiting approval from nephrology in the presence of CKD 3 or higher [] Awaiting patient to be 24 hours fever free and/or 48 hours of negative blood cultures [] Awaiting TPN approval [] Already has adequate access for therapies prescribed [] No viable veins (see description below) [] Patient refused [] Both arms found to have contraindications for line placement [] Continued malposition despite multiple attempts [] Accessed vein successfully, but PICC catheter would not advance [x] Patient unable to give consent, no POA/unable to reach POA Additional note: I will continue to attempt to reach Mr. Kearney. PICC pager [phone] PIV pager [phone] Associated Order(s): IP CONSULT TO INFECTIOUS DISEASE INFECTIOUS DISEASE CONSULT NOTE Referring MD: Sunitha Corley DO Reason for Consult: AMS, headache, and fever, transferred here for possible meningitis vs encephalitis, LP done yesterday, appreciate recs for any further infectious workup and abx management HPI: Kerrie Kearney is a 78 y.o. female with a PMH of DM HTN and hyperthyroidism. Admitted 01/11/2024 as a transfer from [facility] for neurological evaluation, LP for c/f meningitis/encephalitis. ID is c/for the same When we met the patient she was awake and was talking but she didn't remember why she was here, and was AAOx1. Her was at bedside and gave the hx. It seems that she was last known well at 11:30 p.m. on 01/06. noted she was having sudden onset unusual behaviors (running into ramirez, knocking out the television speaker), and difficulty ambulating, confusion and difficulty talking. Before this she was absolutely normal and was on a phone call with her sister. Of note patient and her recently moved from [place] which seemed to be a very difficult move, she had also c/o some headaches in the past few days. She was taken to [place] by EMS on 01/07 she underwent a stroke alert and a tele neurology consultation. Her initial CT and CTA were free of evidence of a CVA. Per documentation she was noted to be febrile to 101 in the emergency department, it seems like Neurology was consulted over the phone, they were concerned for infectious cause of her delirium hence she underwent an MRI of the brain which demonstrated diffuse restricted diffusion in the cerebral cortex bilaterally most pronounced in the parietal occipital region, LP was unsuccessful given scoliosis. Vancomycin, cefepime, ampicillin, and acyclovir were started on 01/06. An EEG showed diffuse slowing. Once transferred here LP was done w neg meningitis encephalitis panel, gluc 143, prot 88, RBC 248, TNC 5. She was continued on all the antibiotics She was noted to have a blood sugar of greater than 500 on presentation, with pseudo hyponatremia. This has improved with insulin and saline administration. Here she's been afebrile and HD stable. She denies any headache, neck stiffness fevers. She has no rash on her body. They own a dog, no bites or scratches. WBC 7.52 Antibiotics Received: Acyclovir Ampicillin Ceftriaxone Vancomycin Review of Systems - GENERAL: Patient denies fever, chills, weight loss, fatigue, night sweats EYES: Patient denies blurry vision, eye pain HENT: Patient denies headache, hearing loss, sore throat, dysphagia, sinus pain CARDIO: Patient denies chest pain, palpitations, orthopnea PULM: Patient denies shortness of breath, wheezing, cough, sputum, hemoptysis GI: Patient denies nausea, vomiting, diarrhea, abdominal pain, blood in stool : Patient denies urinary frequency, urgency, dysuria, urethral discharge MSK: Patient denies joint pain, back pain, swelling SKIN: Patient denies rash, redness HEME: Patient denies easy bruising, bleeding Past Medical History No past medical history on file. Surgical History No past surgical history on file. Social History Social History Socioeconomic History Marital status: Social Determinants of Health Financial Resource Strain: Low Risk (07/25/2023) Received from [facility] Overall Financial Resource Strain (CARDIA) Difficulty of Paying Living Expenses: Not very hard Food Insecurity: No Food Insecurity (07/25/2023) Received from [facility] Hunger Vital Sign Worried About Running Out of Food in the Last Year: Never true Ran Out of Food in the Last Year: Never true Transportation Needs: No Transportation Needs (07/25/2023) Received from [facility] PRAPARE - Transportation Lack of Transportation (Medical): No Lack of Transportation (Non-Medical): No Physical Activity: Insufficiently Active (07/25/2023) Received from [facility] Exercise Vital Sign Days of Exercise per Week: 1 day Minutes of Exercise per Session: 10 min Stress: No Stress Concern Present (07/25/2023) Received from [facility] [place] [facility] [employer] - Occupational Stress Questionnaire Feeling of Stress : Not at all Social Connections: Moderately Integrated (07/25/2023) Received from [facility] Social Network How would you rate your social network (family, work, friends)?: Adequate participation with social networks Intimate Partner Violence: Not At Risk (07/25/2023) Received from [facility] HITS Over the last 12 months how often did your partner physically hurt you?: 1 Over the last 12 months how often did your partner insult you or talk down to you?: 2 Over the last 12 months how often did your partner threaten you with physical harm?: 1 Over the last 12 months how often did your partner scream or curse at you?: 1 Housing Stability: Low Risk (07/25/2023) Received from [facility] Housing Stability Vital Sign Unable to Pay for Housing in the Last Year: No Number of Places Lived in the Last Year: 1 Unstable Housing in the Last Year: No Family History No family history on file. Inpatient Medications: acyclovir 5 mg/kg (Order-Specific) Intravenous Q12HNS ampicillin 2 g Intravenous Q6HNS cefTRIAXone 2 g Intravenous Q12H enoxaparin 40 mg Subcutaneous Q24H insulin glargine 8 Units Subcutaneous QHS Insulin regular Subcutaneous Q6H methimazole 5 mg Oral Once per day on Sunday Pantoprazole 40 mg Intravenous Daily vancomycin 20 mg/kg (Adjusted) Intravenous Q24H Not on File OBJECTIVE FINDINGS: Vital Signs (24hrs): Temp: [97.7 F (36.5 C)-99 F (37.2 C)] 97.9 F (36.6 C) Pulse (Heart Rate): [90-114] 104 Resp Rate: [17-24] 18 BP: (148-192)/(68-109) 148/68 O2 Sat (%): [79 %-100 %] 98 % Weight: [66.2 kg (146 lb)] 66.2 kg (146 lb) Physical Exam: GEN: Awake, resting comfortably EYES: EOMI, no scleral icterus HENT: MMM. No oral lesions. Fair dentition. NECK: Supple, no cervical lymphadenopathy or meningismus. CARDIO: RRR, no murmur. PULM/CHEST: CTAB. No increased work of breathing ABD: Soft, not tender or distended MSK: no obvious effusion, swelling, increased warmth, or erythema of major joints. No pedal edema. SKIN: scabbed wound on the L sims NEURO: AOx1. Moves all four extremities. Diagnostic Data: CBC Lab Results Component Value Date WBC 7.52 01/12/2024 HGB 11.6 01/12/2024 HCT 36.9 01/12/2024 PLATELET 273 01/12/2024 MCV 87.2 01/12/2024 EDIF Lab Results Component Value Date RBCDISTRIBU 12.6 01/12/2024 GRNLOCYT 80.2 01/11/2024 LYMPHOCYT 11.7 01/11/2024 MONOCYTELEC 6.9 01/11/2024 EOSINOPHILS 0.3 01/11/2024 BASOPHILS 0.7 01/11/2024 LYMPHOCYTABS 1.06 (L) 01/11/2024 EOSINOPHLABS <0.04 01/11/2024 PLATELET 273 01/12/2024 MPV 11.4 01/12/2024 Lab Results Component Value Date SODIUM 140 01/12/2024 POTASSIUM 4.1 01/12/2024 CHLORIDE 106 01/12/2024 CO2 21 01/12/2024 BUN 21 01/12/2024 CREATSERUM 0.98 01/12/2024 GLUCOSE 215 (H) 01/12/2024 No results found for: ALT, TRANSFERASEA, AST, GGT, GAMMAGT, ALKPHOS, BILITOTAL, BILIDIRECT No results found for: SEDRATE No results found for: CRP Urinalysis No results found for: SPGRVTYUR, SPECGRAVUR, GLUCOSEURINE, BILIRUBINURI, KETONESURINE, BLOODURINE, PHURINE, NITRITEURINE, NITRITESURIN, LEUKOCESTUR, WBCURINE, RBCURINE, BACTERIAURIN Microbiology and Other Significant ID Labs: (personally reviewed) 01/10 LP gluc 143, prot 88, RBC 248, TNC 5, neg meningitis encephalitis panel. Paolo no organisms on gram rare neutros Imaging: (personally reviewed) CT head stroke w/o 01/08 Mastoid air cells are clear, stable chronic ischemic and atrophic changes. Addendum report mentioned that findings could represent atypical appearance of anterior reversible encephalopathy under the appropriate clinical circumstances CTA 09/10 no large vessel occlusion or MCA thrombus, moderate to severe stenosis of distal right ICA and moderate stenosis of proximal left PACKAGE LINER; 2.8 cm heterogenously enhancing left thyroid nodule was also noted. MRI brain with and without contrast 01/07 Mild atrophy and minor periventricular white matter ischemic changes Diffuse restricted diffusion in the cerebral cortex bilaterally most pronounced in the parietal occipital regions of indeterminate etiology possibly due to inflammatory disease or less likely anoxic event. There is no enhancement following contrast administration. Clinical correlation is recommended ASSESSMENT: Kerrie Kearney is a 78 y.o. female with a PMH of DM HTN and hyperthyroidism. Admitted 01/11/2024 as a transfer from [facility] for neurological evaluation, LP for c/f meningitis/encephalitis. ID is c/for the same AMS: on reviewing hx, fever happened in [place] [facility]. AMS had started at home w confusion, difficulty talking and ambulation, which was all sudden in onset. Doubt that an infectious pathology is at play here fernanda w unimpressive LP findings and neg meningitis encephalitis panel. Do not think HSV encephalitis is at play here hence can stop acyclovir. Can continue the rest of the antibx till cx finalize. MRI w restricted diffusion in cerebral cortex (neurology consulted) Fever: none here but noted to be 101 at [place]. Doesn't appear that bcx were obtained Estimated Creatinine Clearance: 43 mL/min (by C-G formula based on SCr of 0.98 mg/dL). RECOMMENDATIONS: Diagnostics: Agree w neurology Will follow CSF cx Therapeutics: Please stop acyclovir Can continue vancomycin ceftriaxone and ampicillin as you are ID team 2 will follow. Please call with questions. Myrna Singleton Infectious Diseases Fellow The ID Team pagers are available - Sunday through Sunday from 7:00 am to 06:00 pm. For emergent or after hour issues, please call the on-call/1st-call ID fellow pager. [facility] - [facility] - ID ATTENDING NOTE I have seen and examined this patient personally on 01/12/2024. I have independently verified Dr. Myrna Singleton's history and physical examination findings and I agree with the assessment and plan with my edits added. I have discussed the case and supervised the medical decision making. Pt admitted with change in mental status/empirically started on broad antimicrobial prior to transfer. Clinically improving. Work-up negative thus far with negative CSF meningitis panel. Agree with stopping acyclovir for now, pending final CXs. Ron Guaman MD documented in this encounter [facility] 01-22-2024 Nurse Note Report given to recovery room, Aure Aguilar RN. Pt breathing responsively, on oxygen, transported in hospital bed with anesthesiologist. documented in this encounter [facility] 01-14-2024 Hospital Discharge instructions Jaime Chambers II, MD - 01/14/2024 8:07 AM EDT Take all medications as prescribed You will have follow up with Surgery for drain removal as an outpatient Some medications may have changed/started/stopped during this hospitalization. Please review your medication list closely and take as prescribed. An incidental goiter was noted on your thyroid imaging. You should have further outpatient follow with your Primary Care Doctor and repeat Ultrasound imaging in 1 year Patient Experience Survey Reminder You may receive a survey in the mail within a few weeks regarding your hospitalization. This helps us to improve the care and services we provide at [facility]. We truly appreciate you taking the time to fill this out. We particularly welcome any specific comments you may have (good or bad!) regarding your experience at [facility] so that we may use them to continue to strive towards excellence for our patients. Notify Physician. Who To Call: Emergencies: Call 911. Go directly to [facility] or nearest Emergency Room. Trauma/Emergency General Surgery - Questions M-F 8a-4:00p. - For non-emergency questions call the Surgery Clinic at [phone]. - Eves, weekends and holidays - Ask to page the Trauma/Emergency General Surgery resident vice president of operations. - Clinical Casemanager: Leonel Arita RN. [phone]. Personal Responsibilities: Driving Restriction: - You should not return to driving at this time. - Your doctor will discuss recommendations at your follow-up appointment. - You should have a relative or friend bring you to your follow-up appointment(s). - Do not operate a motor vehicle while taking new prescription medications. - Your new medication(s) may impair your ability to operate a vehicle safely. Return To Work (RTW) Recommendations: - Ask your doctor when you can RTW and if you have any physical restrictions. Documentation Requests from Insurance or Employer: - Your CCM, SW supervisor [employer] can provide you with a work excuse. - Family Medical Leave, Short Term Disability or other documents can be sent to your casemanager or clinic staff for completion. - Fax documents with your full name, date of and medical record number to clinic [phone]. [employer] a return fax number. - Anticipate < 10 business days for document completion. To Request Your Medical Records: [facility] Department of Medical Information Management: - The care you receive at [facility] is documented on your Electronic Medical Record (EMR) - You may request information from your medical record or participate in your care through [employer], which provides a portion of your overall medical record and offers communication services with your providers offices. - To request information from your medical record: Download, complete and return this authorization form: [email or web address]~/[email or web address]/[facility] centerMedical/Patient-Car e/Krnrcva-iwk-Xopyvqq-Guide/Medica l-Records/Xivomcbppgoen-[email or web address]-Xhkczf d-uw-Yawkvxv-[email or web address]=en [facility] Medical Information Management Office: - [facility] at [phone] Mon- Fri 8am- 7pm - [facility] at [phone] Mon-Sun 8am- 7pm For Copies of [facility] Digital Radiologic Imaging on DVD Contact: - [facility] Department of Radiology Imaging Informatics PACS - PACS- [employer] [facility] - p [phone]. Hours Mon-Fri 9:00am to 3:00pm Personal Health Information: - Carry an up to date list of all of your medicines in your wallet or purse in case of an emergency. - Include both prescriptions and over the counter medicines and any vitamin or herbal products you use. - Be sure you share your medicine list with all of your doctors, including your dentist. - Keep your medicine list up to date anytime you have a medicine stopped or started, or if a dose changes. - Keep a list of emergency contact persons whom you want contacted in the event of an emergency. Important Information for Follow-up Appointments: Please be prepared for your appointments: - Please arrive 15 minutes early for new patient registration and any tests/scans. Items to bring with you: - For your appointments please bring your photo ID and your insurance card. - Bring gonzales, check or credit card for any insurance co-pays. - Bring a list of your current medications (names, dose, when taken). - Bring a list of all your current health care providers. - You should also bring a copy of your hospital discharge instructions. Determine coverage: - It is your responsibility to check that this appointment is covered by your insurance. - If the appointment requires prior-authorization or physician referral, you must bring that prior-authorization # or paperwork to your visit. - You need to verify if the doctor you are scheduled to see is a participant in your insurance plan by calling your carrier. - If your insurance will not authorize this visit or you have no insurance coverage, you will need to make a gonzales payment at the time of the appointment. [facility] Follow-up Appointments: Driving and Parking Recommendations for Follow-up Appointments: - See the first page of this AVS (After Visit Summary) for your scheduled and/or recommended follow-up appointments. - Always call to verify all appointments 2-3 days prior to the appointment. - Always verify the location of your follow-up appointments. There are multiple clinic locations. - Always verify the date, time and location of all previously scheduled appointments. - [email or web address] [email or web address]. [facility], [facility] Map: [email or web address]/~/[facility]/Files/Shared/Locations/Driving- Directions/[facility]iz-Agjmvh-Cqj.[email or web address]?la=en Trauma and Emergency General Surgery Clinic: [email or web address]~/[email or web address] [email or web address]/Files/Shared/Locations/Driving- Directions/[facility]/Dri_Dir _[facility].pdf Irene Ahmadi MD - 01/27/2024 12:18 PM EDT Incision located: abdomen FOR YOUR INCISION CARE + - Please clean it daily with mild soap and water. - Keep it dry for the rest of the day. - You do not need to cover your incision. - Watch for increasing redness, pus-like discharge or apart of the incision. - Do not let the water from the shower stream hit the incision directly. - If you have paula tentative removal will be in 14 days (02/02/24 - 02/06/24). If paula remain in place at dates listed please reach out to physicians office for removal. The following attachments cannot be sent through Care Everywhere.Wound Drainage Record Sheet (Rhett Garcia) (North Korean)Wound Drain Care (Rhett Garcia) ([place] Korean)documented in this encounter [facility] 01-11-2024 History and physical note Hospital Medicine Admission History & Physical Patient: Kerrie Kearney, : 1945, Date of face to face patient encounter: 01/11/2024 Impression / Plan Delirium, fever acute: Immediate diagnostic concern is for encephalitis or meningitis Consult to P that for LP this afternoon, if unsuccessful will arrange for sedated LP Your treatment with acyclovir, vancomycin, ampicillin, ceftriaxone At this point there is no ongoing benefit to dexamethasone. Ddx includes NMS/ serotonin syndrome, but is not on high risk medications. Exam limited so unable to properly assess for clonus. Ddx also includes [employer] lyme and syphillis. Will grab CSF lyme, HIV, RPR, serum lyme. Auto-immune encephalopathy panel as well. Hyperglycemia - history of DM type 2 on glipizide and metformin only. Treated at [facility] with 15 units. While NPO will start with 10 units here and adjust. Low regular insulin q 6 while NPO Hyperthyroidism - cont Methimazole. Unclear underlying etiology. TSH and T4 in range at [facility]. Resolved at [facility] Hyponatremia Mild RICK 1.4->1.2 Complexity. Any conditions listed below are present on admission unless otherwise specified. .None DVT prophylaxis with lovenox Anticipated Disposition: inpatient Code status is full Chief Complaint Confusion History of Presenting Illness Kerrie Kearney is a 78 y.o. female with a past medical history of hypertension, diabetes mellitus and hyperthyroidism who presented to [facility] on 01/07 with a chief complaint of confusion. Of note this history is obtained from outside hospital documentation as the patient can not provide history. It seems that she was last known well at 11:30 p.m. the evening before presentation. noted she was having unusual behaviors, and difficulty ambulating. At [place] she underwent a stroke alert and a tele neurology consultation. Her initial CT and CTA were free of evidence of a CVA. She was noted to be febrile in the emergency department, raising the concern for infectious cause of her delirium. Eventually she underwent an MRI of the brain which demonstrated diffuse restricted diffusion in the cerebral cortex bilaterally most pronounced in the parietal occipital region. Tele neurology consultation was most concern for encephalitis or meningitis and she was referred to [facility]. LP was attempted but not successfully completed. She has been on vancomycin, cefepime, ampicillin, and acyclovir. She was noted to have a blood sugar of greater than 500 on presentation, with pseudo hyponatremia. This has improved with insulin administration Admitting physician noted that patient may have had several weeks of more subtle difficulties prior to the more dramatic changes over last several days. Review of Systems ROS not reliably obtained History PMH Hyperthyroidism - unclear type. HTN Social History Unable to obtain Family History Unable to obtain. Medications / Allergies Prior to Admission Medications Prescriptions Atorvastatin 10 MG tablet Sig: Take 1 tablet by mouth daily. DULoxetine [address] Particles capsule DR Sig: Take 1 capsule by mouth daily. Diltiazem 120 MG Cap SR 24HR capsule XL Sig: Take 1 capsule by mouth daily. Lisinopril 20 MG tablet Sig: Take 1 tablet by mouth daily. carveDILOL 25 MG tablet Sig: Take 1 tablet by mouth 2 times daily with meals. glipiZIDE 2.5 MG tablet Sig: Take 2.5 mg by mouth 2 times daily. methimazole 5 MG tablet Sig: Take 1 tablet by mouth 3 times daily. omeprazole [address] capsule Sig: Take 1 capsule by mouth daily. Facility-Administered Medications: None Not on File Objective Findings BP 167/88 (BP Location: Right arm, BP Position: Lying) Pulse 112 Temp 97.8 F (36.6 C) (Oral) Resp 17 SpO2 100% Physical Exam Gen: confused, Awake, NAD Eyes: PERRLA, EOMI, no icterus ENT: MMM, trachea midline, no cervical tenderness or nuchal rigidity. Resp: CTA, normal respiratory effort Cardio: RRR, normal S1, S2, +2 murmu noted at the R sternal border. No LIDIA. GI: S/NT/ND, NABS MS: No joint effusions or erythema Skin: R sims with wound.. Neuro: traffic checker 3-7, 9-11 intact and equal. Strength grossly equal in muscle groups of the bilateral UEs and LEs. Psych: Ox0, appropriate affect and cognition Data Review [facility] labs, imaging reviewed. Discuseed with PVAT documented in this encounter [facility] 01-11-2024 Note [facility] Evaluation note Diagnosis Delirium- Primary Other alteration of consciousness Meningitis Meningitis, unspecified Decreased functional mobility Impaired cognition Unspecified persistent mental disorders due to conditions classified elsewhere Small bowel obstruction Unspecified intestinal obstruction Delirium Other alteration of consciousness SBO (small bowel obstruction) Unspecified intestinal obstruction Abnormal MRI of head Nonspecific (abnormal) findings on radiological and other examination of skull and head Essential hypertension Unspecified essential hypertension Type 2 diabetes mellitus with hyperglycemia, with long-term current use of insulin Hyperthyroidism Thyrotoxicosis without mention of goiter or other cause, without mention of thyrotoxic crisis or storm Anemia (Low HGB) Anemia, unspecified Renal disease (High Serum Creatinine) Unspecified disorder of kidney and ureter Electrolyte disorder (K, Cl, or Na) Electrolyte and fluid disorders not elsewhere classified SBO (small bowel obstruction) Unspecified intestinal obstruction [facility] Diagnosis SBO (small bowel obstruction)- Primary Unspecified intestinal obstruction [facility] Diagnosis Iron deficiency anemia, unspecified iron deficiency anemia type- Primary [facility]* Diagnosis 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 documented in this encounter [facility]* Diagnosis 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 [facility] Diagnosis 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 documented [facility]* Diagnosis 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 documented [facility]* Diagnosis 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 [facility]* Diagnosis 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 documented [facility] this encounter [facility]* Diagnosis Iron deficiency anemia secondary to inadequate dietary iron intake- Primary Iron deficiency anemia, unspecified iron deficiency anemia type documented [facility] this encounter [facility] noteNo assessment information availableWBlanchard [facility] Work Phone: Reason for referral (narrative)No reason for referral information availableWBlanchard Valley Health System [facility] Work Phone: Reason for Referral Specialty Diagnoses / Procedures Referred By Lester head Referred To Contact Social Work Diagnoses Decreased functional mobility Delirium Jaime Chambers II, MD [address] [place] [address] Referral ID Status Reason Start Date Expiration Date V isits Requested Visits Authorized [id number] New Request 01/29/2024 02/22/2025 1 1 Specialty Diagnoses / Procedures Referred By Contac t Referred To Contact [facility] [address] [place] [id number] Referral ID Status Reason Start Date Expiration Date Visits Re quested Visits Authorized Specialty Diagnoses / Procedures Referred By Contac t Referred To Contact Neurology Diagnoses Impaired cognition Sunitha Corley, DO [address] [address] Referral ID Status Reason Start Date Expiration Date V isits Requested Visits Authorized [id number] New Request 01/15/2024 02/08/2025 1 1 Specialty Diagnoses / Procedures Referred By Contac t Referred To Contact Social Work Diagnoses Meningitis Decreased functional mobility Sunitha Corley, DO [address] [address] Referral ID Status Reason Start Date Expiration Date V isits Requested Visits Authorized [id number] New Request 01/14/2024 02/07/2025 1 1 Specialty Diagnoses / Procedures Referred By Contac t Referred To Contact Interventional Radiology [facility] [address] [place] [phone] Advance Directives Date Activated Date Inactivated Comments 01/11/2024 11:49 AM Date Activated Date Inactivated Comments 01/11/2024 11:49 AM Summary Purpose Family History No Family History Records FoundNo Family History Records FoundNo Family History Records Found Additional Source Comments Reason for Visit (unrecogniz ed section and content) Specialty Diagnoses / Procedures Referred By Contac t Referred To Contact Diagnoses Confusion Natividad Guzman MD [address] [place] [address] [facility] [address] [place] [address] Referral ID Status Reason Start Date Expiration Date Visits Re quested Visits Authorized [id number] 1 1 Reason Comments Follow-up Reason Comments New Patient Reason Comments Benefits Investigation Reason Comments Non-Chemotherapy Treatment Specialty Diagnoses / Procedures Referred By Contac t Referred To Contact Diagnoses Iron malabsorption Iron deficiency anemia secondary to inadequate dietary iron intake Procedures IRON SUCROSE INJECTION PER 1 MG Adan Scott, DO [address] [place] [address] [facility] [address] [place] [address] Referral ID Status Reason Start Date Expiration Date V isits Requested Visits Authorized [id number] Authorized 04/09/2024 07/15/2024 0 99 Reason Comments SOCIAL WORK SERVICES (1ST TIME TREATMENT ) Referral ID Status Reason Start Date Expiration Date V isits Requested Visits Authorized [id number] Authorized 04/09/2024 07/15/2024 99 99 Reason Comments Established Patient Scheduled Active and Recently Administ ered Medications (unrecognized section and content) Medication Order 01/28/2024 01/29/2024 01/30/2024 Atorvastatin (LIPITOR) tablet 10 mg 10 mg, Oral, DAILY AT BEDTIME, First dose (after last modification) on Sun01/23/24 at 2100, Until Discontinued 2002 (Given - Provider: Balbir Pelletier RN) 2056 (Given - Provider: Lisa Cornejo RN) carveDILOL (COREG) tablet 12.5 mg 12.5 mg, Oral, 2 TIMES DAILY, First dose (after last modification) on Sun01/29/24 at 0900, Until Discontinued, Hold for SBP <100 or HR <60 0858 (Given - Provider: Thierno Mcnamara RN)1643 (Given - Provider: Thierno Mcnamara RN) 0838 (Given - Provider: Lucita Levy, JESSICA)1700 (Canceled Entry - Provider: System Discharge - Comment: Automatically canceled at discontinue of medication order) carveDILOL (COREG) tablet 6.25 mg (CANCELED) 6.25 mg, Oral, 2 TIMES DAILY, First dose (after last modification) on Sun01/23/24 at 0900, Until Discontinued, Hold for SBP <100 or HR <60 0820 (Given - Provider: Thierno Mcnamara RN)1709 (Given - Provider: Thierno Mcnamara RN) Diltiazem (CARDIZEM CD) capsule XL 120 mg 120 mg, Oral, DAILY, First dose on Sun01/13/24 at 0900, Until Discontinued, Slow release product. Do not chew or crush. Hold for SBP <100 or HR <60 0820 (Given - Provider: Thierno Mcnamara RN) 0858 (Given - Provider: Thierno Mcnamara RN) 0838 (Given - Provider: Lucita Levy, JESSICA) DULoxetine (CYMBALTA) capsule DR 30 mg 30 mg, Oral, DAILY, First dose on 01/12/24 at 1130, Until Discontinued, Swallow capsule whole; do not crush or chew. May add contents of capsule to apple juice or applesauce (but NOT chocolate) taking care not to crush the pellets and damage the enteric coating. 0819 (Given - Provider: Thierno Mcnamara RN) 0858 (Given - Provider: Thierno Mcnamara RN) 0838 (Given - Provider: Lucita Levy, JESSICA) Heparin injection 5,000 Units 5,000 Units, Subcutaneous, EVERY 8 HOURS (0800/1600/2200), First dose on Eli 01/17/24 at 0800, Until Discontinued 0820 (Given - Provider: Thierno Mcnamara RN)1710 (Given - Provider: Thierno Mcnamara RN)2222 (Given - Provider: Balbir Pelletier, JESSICA) 0858 (Given - Provider: Thierno Mcnamara RN)1643 (Given - Provider: Thierno Mcnamara RN)2056 (Given - Provider: Lisa Cornejo, JESSICA) 0838 (Given - Provider: Lucita Levy, JESSICA)1600 (Canceled Entry - Provider: System Discharge - Comment: Automatically canceled at discontinue of medication order) insulin glargine-yfgn (SEMGLEE) injection 4 Units (CANCELED) 4 Units, Subcutaneous, DAILY AT BEDTIME, First dose (after last modification) on 01/26/24 at 2100, Until Discontinued, Do not mix in syringe with other insulins. 2003 (Given - Provider: Balbir Pelletier, JESSICA - Comment: Bgl 234 ) insulin glargine-yfgn (SEMGLEE) injection 7 Units(Linked Group 1) 7 Units, Subcutaneous, DAILY AT BEDTIME, First dose (after last modification) on Sun01/29/24 at 2100, Until Discontinued, Do not mix in syringe with other insulins. 2056 (Given - Provider: Lisa Cornejo RN) Insulin lispro (HUMALOG) injection(Linked Group 2) Subcutaneous, 4 TIMES DAILY WITH MEALS & AT BEDTIME, First dose (after last modification) on Sun01/28/24 at 0800, Until Discontinued, Correction Factor: 151-250 = 2 unit; 251-350 = 3 units; 351-450 = 4 units; Kwikpen: Prime pen before each injection; refer to Pen Priming and Care Handout for further details. Warning! Confirm patient. Insulin pen is for labeled individual patient use ONLY. 0831 (Given - Provider: Thierno Mcnamara RN)1347 (Given - Provider: Thierno Mcnamara RN)1713 (Given - Provider: Thierno Mcnamara, RN)2004 (Given - Provider: Balbir Pelletier RN - Comment: Bgl 234) 0907 (Given - Provider: Thierno Mcnamara RN)1317 (Given - Provider: Thierno Mcnamara RN)1734 (Given - Provider: Thierno Mcnamara RN)2056 (Given - Provider: Lisa Cornejo RN) 1036 (Given - Provider: Lucita Levy RN - Comment: ate late)1236 (Given - Provider: Lucita Levy RN)1700 (Canceled Entry - Provider: System Discharge - Comment: Automatically canceled at discontinue of medication order) Lisinopril (PRINIVIL) tablet 20 mg 20 mg, Oral, DAILY, First dose (after last modification) on Sun01/27/24 at 1030, Until Discontinued 0820 (Given - Provider: Thierno Mcnamara RN) 0721 (Held by provider - Provider: Jaime Chambers II, MD - Reason: Other)0900 (Automatically Held - Provider: Jaime Chambers II, MD) 0807 (Unheld by provider - Provider: Jaime Chambers II, MD)0838 (Given - Provider: Lucita Levy, JESSICA) methimazole (TAPAZOLE) tablet 5 mg 5 mg, Oral, THREE TIMES WEEKLY (Once per day on Sunday), First dose (after last reorder) on Sun01/11/24 at 1700, Until Discontinued, Swallow tablet whole; do not crush, split or chew. Contact pharmacy if alternate route or dose is needed. 0819 (Given - Provider: Thierno Mcnamara RN) 0838 (Given - Provider: Lucita Levy, RN) Pantoprazole (PROTONIX) tablet DR 40 mg 40 mg, Oral, 2 TIMES DAILY, First dose (after last modification) on Sun01/21/24 at 0900, Until Discontinued, Swallow whole; do not crush or chew., Indications: Continuation of Home Therapy 0820 (Given - Provider: Thierno Mcnamara, RN)1709 (Given - Provider: Thierno Mcnamara RN) 0858 (Given - Provider: Thierno Mcnamara RN)1643 (Given - Provider: Thierno Mcnamara, JESSICA) 0838 (Given - Provider: Lucita Levy, RN)1700 (Canceled Entry - Provider: System Discharge - Comment: Automatically canceled at discontinue of medication order) Continuous Medication Order 01/28/2024 01/29/2024 01/30/2024 Lactated ringers IV solution () Intravenous, at 75 mL/hr, CONTINUOUS, Starting on Sun01/29/24 at 0730, Until Sun01/29/24 at 1929 0903 ($$New Bag$$ - Provider: Thierno Mcnamara RN)1254 (Paused - Provider: Thierno Mcnamara RN)1315 (Restarted - Provider: Thierno Mcnamara RN)1436 (Paused - Provider: Thierno Mcnamara, RN)1451 (Paused - Provider: Thierno Mcnamara, RN)1502 (Restarted - Provider: Thierno Mcnamara, RN)1513 (Paused - Provider: Thierno Mcnamara, RN)1557 (Restarted - Provider: Thierno Mcnamara, RN)1603 (Paused - Provider: Thierno Mcnamara, RN)1626 (Restarted - Provider: Thierno Mcnamara, RN)1643 (Rate/Dose Verify - Provider: Thierno Mcnamara RN)1813 (Paused - Provider: Lisa Cornejo, RN)1817 (Restarted - Provider: Lisa Cornejo, RN)1827 (Paused - Provider: Lisa Cornejo, RN)1837 (Restarted - Provider: Lisa Cornejo, RN)1916 (Paused - Provider: Lisa Cornejo, RN)1933 (Restarted - Provider: Lisa Cornejo RN)1933 (Paused - Provider: Lisa Cornejo RN)2043 (Restarted - Provider: Lisa Cornejo RN)2055 (Rate/Dose Verify - Provider: Lisa Cornejo RN) 53 (Stopped - Provider: Lisa Cornejo RN) PRN Medication Order 01/28/2024 01/29/2024 01/30/2024 Acetaminophen (TYLENOL) oral solution 650 mg(Linked Group 3) 650 mg, Oral, EVERY 6 HOURS NEEDED, Starting on 01/27/24 at 0745, Until Sun01/30/24 at 1811, Moderate Pain, Maximum dose of acetaminophen is 4000 mg from all sources in 24 hours. Acetaminophen (TYLENOL) suppository 650 mg(Linked Group 3) 650 mg, Rectal, EVERY 6 HOURS NEEDED, Starting on 01/27/24 at 0745, Until Sun01/30/24 at 1811, Moderate Pain, Maximum dose of acetaminophen is 4000 mg from all sources in 24 hours. Acetaminophen (TYLENOL) tablet 650 mg(Linked Group 3) 650 mg, Oral, EVERY 6 HOURS NEEDED, Starting on 01/27/24 at 0745, Until Sun01/30/24 at 1811, Moderate Pain, Maximum dose of acetaminophen is 4000 mg from all sources in 24 hours. alum/mag hydrox.-simethicone oral suspension 30 mL 30 mL, Oral, EVERY 6 HOURS NEEDED, Starting on 01/18/24 at 1151, Until Sun01/30/24 at 1811, Indigestion, abdominal pain, Per 5 mL is equivalent to: (Alum-Mag Hydroxide 200-225 mg and Simethicone 20 mg) and (Alum-Mag Hydroxide 200-200 mg and Simethicone 20 mg) bisacodyl (DULCOLAX) suppository 10 mg 10 mg, Rectal, DAILY NEEDED, Starting on 01/20/24 at 1159, Until Sun01/30/24 at 1811, Constipation 1st Line Dextrose 50% injection 7.5-25 g(Linked Group 4) 7.5-25 g, Intravenous, ADMINISTER DIRECTED, Starting on 01/21/24 at 0842, Until Sun01/30/24 at 1811, Blood glucose <80 mg/dL, For patients who are not alert, are NPO, or are on IV insulin infusion administer as directed per Hypoglycemia in Non- Adults Clinical Practice Guideline. For Blood Glucose: 60-79 mg/dL administer 7.5 gm (15ml); 45-59 mg/dL administer 12.5 gm (25ml); less than 45mg/dL administer 25gm (50ml). ++ If additional dextrose 50% needed, contact pharmacy or obtain from [facility] cart ++ Dextrose 50% injection 7.5-25 g(Linked Group 2) 7.5-25 g, Intravenous, ADMINISTER DIRECTED, Starting on Sun01/28/24 at 0738, Until Sun01/30/24 at 181, Blood glucose <80 mg/dL, For patients who are not alert, are NPO, or are on IV insulin infusion administer as directed per Hypoglycemia in Non- Adults Clinical Practice Guideline. For Blood Glucose: 60-79 mg/dL administer 7.5 gm (15ml); 45-59 mg/dL administer 12.5 gm (25ml); less than 45mg/dL administer 25gm (50ml). ++ If additional dextrose 50% needed, contact pharmacy or obtain from [facility] ++ glucose (GLUTOSE) 40 % oral gel 1-2 Tube(Linked Group 4) 1-2 Tube, Oral, ADMINISTER DIRECTED, Starting on Sun01/21/24 at 0842, Until Sun01/30/24 at 181, Blood glucose <80 mg/dL, For patients who are alert, able to tolerate PO intake and with intact cognitive status administer as directed per Hypoglycemia in Non- Adults Clinical Practice Guideline. For Blood Glucose: 60-79 mg/dL administer 1 tube; 45-59 mg/dl administer 1.5 tubes; less than 45 mg/dL administer 2 tubes. Each tube of 37.5g delivers 15g of carbohydrate. glucose (GLUTOSE) 40 % oral gel 1-2 Tube(Linked Group 2) 1-2 Tube, Oral, ADMINISTER DIRECTED, Starting on Sun01/28/24 at 0738, Until Sun01/30/24 at 1811, Blood glucose <80 mg/dL, For patients who are alert, able to tolerate PO intake and with intact cognitive status administer as directed per Hypoglycemia in Non- Adults Clinical Practice Guideline. For Blood Glucose: 60-79 mg/dL administer 1 tube; 45-59 mg/dl administer 1.5 tubes; less than 45 mg/dL administer 2 tubes. Each tube of 37.5g delivers 15g of carbohydrate. Melatonin tablet 6 mg 6 mg, Oral, DAILY AT BEDTIME NEEDED, Starting on Sun01/11/24 at 1149, Until Sun01/30/24 at 1810, Insomnia Morphine (PF) injection 1 mg 1 mg, Intravenous, EVERY 3 HOURS NEEDED, Starting on Sun01/22/24 at 1937, Until Sun01/30/24 at 1810, Severe Pain, Moderate Pain Ondansetron (ZOFRAN) tablet 4 mg(Linked Group 5) 4 mg, Oral, EVERY 6 HOURS NEEDED, Starting on 01/19/24 at 0245, Until Sun01/30/24 at 1810, Nausea / Vomiting Ondansetron 4mg/2ml (ZOFRAN) injection 4 mg(Linked Group 5) 4 mg, Intravenous, EVERY 6 HOURS NEEDED, Starting on Sun01/19/24 at 0245, Until Sun01/30/24 at 1810, Nausea / Vomiting Polyethylene glycol (MIRALAX) packet 17 g 17 g, Oral, DAILY NEEDED, Starting on Sun01/27/24 at 0945, Until Sun01/30/24 at 1810, Constipation 1st Line Prochlorperazine (COMPAZINE) injection 10 mg 10 mg, Intravenous, EVERY 6 HOURS NEEDED, Starting on 01/19/24 at 0245, Until Sun01/30/24 at 1810, Refractory Nausea Vomiting, For IV route: dilute dose with 10mL normal saline and give by slow IV push at a rate of 5mg/min. Maximum of 40mg/day. Senna (SENOKOT) tablet 8.6 mg 8.6 mg, Oral, EVERY 12 HOURS NEEDED, Starting on 01/27/24 at 0945, Until Sun01/30/24 at 1810, Constipation 2nd Line Sodium chloride 0.9% IV solution 250 mL Intravenous, at 20 mL/hr, NEEDED, Starting on Sun01/11/24 at 1148, Until Sun01/30/24 at 1810, Carrier Fluid - See Admin. Inst, 250mL 0.9NS to be used as carrier fluid for intermittent small volume or piggyback medication administration as needed. Infusion rate of the carrier fluid should be set at 20 mL/hr unless the rate as the intermittent medication is less than 20 mL/hr. For intermittent medications with a rate less than 20 mL/hr set the carrier fluid at that rate of the intermittent or piggy back medication. Linked Groups Order Group 1: insulin glargine-yfgn (SEMGLEE) injection 7 UnitsJump to med 7 Units, Subcutaneous, DAILY AT BEDTIME, First dose (after last modification) on Sun01/29/24 at 2100, Until Discontinued, Do not mix in syringe with other insulins. And NOTIFY PHYSICIAN, OTHER (CANCELED) Routine, CONTINUOUS, Starting on Sun01/29/24 at 0722, Until Specified, Who to Notify: [employer] [employer], Call [employer] if a.m. Glucose is less than 80 and dose reduction not already ordered. And BLOOD GLUCOSE (POC DEVICE) (CANCELED) Routine, DIRECTED, Starting on Sun01/29/24 at 0721, Until Specified, Symptoms of Hypoglycemia: sweating, shaking, fatigue, rapid pulse, slow thinking & dizziness. Notify physician w/results. Symptoms of Hyperglycemia: excessive thirst, blurred vision, excessive urination & tiredness. Notify physician w/results. If patient NPO, obtain Blood Glucose (POC) prior to administration of all insulin products. Group 2: Insulin lispro (HUMALOG) injectionJump to med Subcutaneous, 4 TIMES DAILY WITH MEALS & AT BEDTIME, First dose (after last modification) on Sun01/28/24 at 0800, Until Discontinued, Correction Factor: 151-250 = 2 unit; 251-350 = 3 units; 351-450 = 4 units; Kwikpen: Prime pen before each injection; refer to Pen Priming and Care Handout for further details. Warning! Confirm patient. Insulin pen is for labeled individual patient use ONLY. And BLOOD GLUCOSE (POC DEVICE) (CANCELED) Routine, 3 TIMES DAILY BEFORE MEALS, First occurrence on Sun01/28/24 at 0745, If any Blood Glucose (POC) is greater than 300mg/dl, then repeat Blood Glucose (POC) in 2 hours. If the initial blood glucose was greater than 300mg/dl and if second blood glucose is greater than 200md/dl, then notify [employer]. And BLOOD GLUCOSE (POC DEVICE) (CANCELED) Routine, DIRECTED, Starting on Sun01/28/24 at 0738, Until Specified, For all Blood Glucose LESS THAN 80 mg/dL, treat per Hypoglycemia in Non- Adults Clinical Practice Guideline (CPG) and recheck glucose 15 min after treatment. Repeat per CPG until glucose GREATER THAN 80 mg/dL. Once glucose IS GREATER THAN 80 mg/dL, recheck Blood Glucose every 1 hour x2, then resume as previously ordered. For Blood Glucose LESS THAN 80 mg/dL on admission OR LESS than 45 mg/dL at any time, obtain POC Blood Glucose every 4 hours for 6 occurrences AFTER treating per CPG. Obtain blood glucose for symptoms of hypoglycemia: sweating, shaking, fatigue, rapid pulse, slow thinking & dizziness. Notify physician w/results. Obtain blood glucose for symptoms of hyperglycemia: excessive thirst, blurred vision, excessive urination & tiredness. Notify physician w/results. If patient NPO, obtain POC Blood Glucose prior to administration of any insulin products. And COMMUNICATION ORDER FOR NURSING CARE: For Blood Glucose LESS THAN 80 mg/dl (CANCELED) Routine, CONTINUOUS, Starting on Sun01/28/24 at 0739, Until Specified, For Blood Glucose LESS THAN 80 mg/dl follow Hypoglycemia in Non- Adults Clinical Practice Guideline (CPG) And Dextrose 50% injection 7.5-25 gJump to med 7.5-25 g, Intravenous, ADMINISTER DIRECTED, Starting on Sun01/28/24 at 0738, Until Sun01/30/24 at 1811, Blood glucose <80 mg/dL, For patients who are not alert, are NPO, or are on IV insulin infusion administer as directed per Hypoglycemia in Non- Adults Clinical Practice Guideline. For Blood Glucose: 60-79 mg/dL administer 7.5 gm (15ml); 45-59 mg/dL administer 12.5 gm (25ml); less than 45mg/dL administer 25gm (50ml). ++ If additional dextrose 50% needed, contact pharmacy or obtain from [facility] ++ And glucose (GLUTOSE) 40 % oral gel 1-2 TubeJump to med 1-2 Tube, Oral, ADMINISTER DIRECTED, Starting on Sun01/28/24 at 0738, Until Sun01/30/24 at 1811, Blood glucose <80 mg/dL, For patients who are alert, able to tolerate PO intake and with intact cognitive status administer as directed per Hypoglycemia in Non- Adults Clinical Practice Guideline. For Blood Glucose: 60-79 mg/dL administer 1 tube; 45-59 mg/dl administer 1.5 tubes; less than 45 mg/dL administer 2 tubes. Each tube of 37.5g delivers 15g of carbohydrate. And NOTIFY PHYSICIAN, Blood Glucose LESS THAN 80 mg/dl (CANCELED) Routine, CONTINUOUS, Starting on Sun01/28/24 at 0739, Until Specified, Who to Notify: [employer], For all Blood Glucose LESS THAN 80 mg/dl, notify [employer] after treatment per Hypoglycemia in Non- Adults Clinical Practice Guideline Group 3: Acetaminophen (TYLENOL) oral solution 650 mgJump to med 650 mg, Oral, EVERY 6 HOURS NEEDED, Starting on Sun01/27/24 at 0745, Until Sun01/30/24 at 1811, Moderate Pain, Maximum dose of acetaminophen is 4000 mg from all sources in 24 hours. Or Acetaminophen (TYLENOL) tablet 650 mgJump to med 650 mg, Oral, EVERY 6 HOURS NEEDED, Starting on Sun01/27/24 at 0745, Until Sun01/30/24 at 1811, Moderate Pain, Maximum dose of acetaminophen is 4000 mg from all sources in 24 hours. Or Acetaminophen (TYLENOL) suppository 650 mgJump to med 650 mg, Rectal, EVERY 6 HOURS NEEDED, Starting on Sun01/27/24 at 0745, Until Sun01/30/24 at 1811, Moderate Pain, Maximum dose of acetaminophen is 4000 mg from all sources in 24 hours. Group 4: Insulin regular (HUMULIN R;NOVOLIN R) injection (CANCELED) Subcutaneous, EVERY 6 HOURS, First dose on Sun01/21/24 at 0845, Until Discontinued, Correction factor parameters most appropriate for NPO or tube feeding patients: Blood glucose under 60 = call H.O.; 151 - 200 = 2 units; 201 - 250 = 4 units; 251 - 300 = 6 units; 301 - 350 = 8 units; 351 - 400 = 10 units; Over 400 = call H.O. An initial vial will be sent from the pharmacy without prompting. Replacement vials require a MAR request when needed. Pyxis has a vial for emergent doses only. And BLOOD GLUCOSE (POC DEVICE) (CANCELED) Routine, EVERY 6 HOURS, First occurrence on Sun01/21/24 at 1200, If any Blood Glucose (POC) is greater than 300mg/dl, treat per correction factor orders; and repeat Blood Glucose (POC) in 2 hours if second blood glucose is greater than 200mg/dl, then notify house supervisor. And BLOOD GLUCOSE (POC DEVICE) (CANCELED) Routine, PRN, Starting on Sun01/21/24 at 0842, Until Specified, For all Blood Glucose LESS THAN 80 mg/dL, treat per Hypoglycemia in Non- Adults Clinical Practice Guideline (CPG) and recheck glucose 15 min after treatment. Repeat per CPG until glucose GREATER THAN 80 mg/dL. Once glucose IS GREATER THAN 80 mg/dL, recheck Blood Glucose every 1 hour x2, then resume as previously ordered. For Blood Glucose LESS THAN 80 mg/dL on admission OR LESS than 45 mg/dL at any time, obtain POC Blood Glucose every 4 hours for 6 occurrences AFTER treating per CPG. Obtain blood glucose for symptoms of hypoglycemia: sweating, shaking, fatigue, rapid pulse, slow thinking & dizziness. Notify physician w/results. Obtain blood glucose for symptoms of hyperglycemia: excessive thirst, blurred vision, excessive urination & tiredness. Notify physician w/results. If patient NPO, obtain POC Blood Glucose prior to administration of any insulin products. And COMMUNICATION ORDER FOR NURSING CARE: For Blood Glucose LESS THAN 80 mg/dl (CANCELED) Routine, CONTINUOUS, Starting on Sun01/21/24 at 0843, Until Specified, For Blood Glucose LESS THAN 80 mg/dl follow Hypoglycemia in Non- Adults Clinical Practice Guideline (CPG) And Dextrose 50% injection 7.5-25 gJump to med 7.5-25 g, Intravenous, ADMINISTER DIRECTED, Starting on Sun01/21/24 at 0842, Until Sun01/30/24 at 1811, Blood glucose <80 mg/dL, For patients who are not alert, are NPO, or are on IV insulin infusion administer as directed per Hypoglycemia in Non- Adults Clinical Practice Guideline. For Blood Glucose: 60-79 mg/dL administer 7.5 gm (15ml); 45-59 mg/dL administer 12.5 gm (25ml); less than 45mg/dL administer 25gm (50ml). ++ If additional dextrose 50% needed, contact pharmacy or obtain from [facility] ++ And glucose (GLUTOSE) 40 % oral gel 1-2 TubeJump to med 1-2 Tube, Oral, ADMINISTER DIRECTED, Starting on Sun01/21/24 at 0842, Until Sun01/30/24 at 1811, Blood glucose <80 mg/dL, For patients who are alert, able to tolerate PO intake and with intact cognitive status administer as directed per Hypoglycemia in Non- Adults Clinical Practice Guideline. For Blood Glucose: 60-79 mg/dL administer 1 tube; 45-59 mg/dl administer 1.5 tubes; less than 45 mg/dL administer 2 tubes. Each tube of 37.5g delivers 15g of carbohydrate. And NOTIFY PHYSICIAN, Blood Glucose LESS THAN 80 mg/dl (CANCELED) Routine, CONTINUOUS, Starting on Sun01/21/24 at 0843, Until Specified, Who to Notify: [employer], For all Blood Glucose LESS THAN 80 mg/dl, notify [employer]ice [employer] after treatment per Hypoglycemia in Non- Adults Clinical Practice Guideline Group 5: Ondansetron (ZOFRAN) tablet 4 mgJump to med 4 mg, Oral, EVERY 6 HOURS NEEDED, Starting on 01/19/24 at 0245, Until Sun01/30/24 at 1811, Nausea / Vomiting Or Ondansetron 4mg/2ml (ZOFRAN) injection 4 mgJump to med 4 mg, Intravenous, EVERY 6 HOURS NEEDED, Starting on 01/19/24 at 0245, Until Sun01/30/24 at 1811, Nausea / Vomiting Care Teams (unrecognized sec tion and content) Physical Therapy Manager Relationship Specialty Start Date End Date Charlie Mosquera [facility] Pharmacist Infectious Disease 01/18/24 01/20/24 Ana England MD [address] [place] [address] Infectious Disease Infectious Disease 01/18/24 01/20/24 Physical Therapy Manager Relationship Specialty Start Date End Date Julieta Orlando DO [address] [address] Internal Medicine 04/08/24 Physical Therapy Manager Relationship Specialty Start Date End Date Fast, Julieta A, DO [address] [facility] [address] [place] [address] PCP - General Internal Medicine 04/09/24 Fast, Julieta A, DO [address] [facility] [address] [place] [address] Internal Medicine 04/08/24 Physical Therapy Manager Relationship Specialty Start Date End Date Fast, Julieta A, DO [address] [facility] [address] [place] [address] PCP - General Internal Medicine 04/09/24 Fast, Julieta A, DO [address] [facility] [address] [place] [address] Internal Medicine 04/08/24 Physical Therapy Manager Relationship Specialty Start Date End Date Fast, Julieta A, DO [address] [facility] [address] [place] [address] PCP - General Internal Medicine 04/09/24 Fast, Julieta A, DO [address] [facility] [address] [place] [address] Internal Medicine 04/08/24 Physical Therapy Manager Relationship Specialty Start Date End Date Fast, Julieta A, DO [address] [facility] [address] [place] [address] PCP - General Internal Medicine 04/09/24 Fast, Julieta A, DO [address] [facility] [address] [place] [address] Internal Medicine 04/08/24 Physical Therapy Manager Relationship Specialty Start Date End Date Fast, Julieta A, DO [address] [facility] [address] [place] [address] PCP - General Internal Medicine 04/09/24 Julieta Orlando DO [address] [facility] [address] [place] [address] Internal Medicine 04/08/24 Physical Therapy Manager Relationship Specialty Start Date End Date Julieta Orlando DO [address] [facility] [address] [place] [address] PCP - General Internal Medicine 04/09/24 Julieta Orlando DO [address] [facility] [address] [place] [address] Internal Medicine 04/08/24 Physical Therapy Manager Relationship Specialty Start Date End Date Julieta Orlando DO [address] [facility] [address] [place] [address] PCP - General Internal Medicine 04/09/24 Julieta Orlando DO [address] [facility] [address] [place] [address] Internal Medicine 04/08/24 Team Status: Active Member Role Status Dates Dr. Julieta Orlando DO Family Provider Active Dr. Julieta Orlando DO Primary Care Provider Active Team Status: Inactive Member Role Status Dates Dr. Julieta Orlando DO Primary Care Provider Active Start: August 19, 2024 End: August 19, 2024 Dr. Julieta Orlando DO Attending Provider Active St art: August 19, 2024 End: August 19, 2024 Dr. Julieta Orlando DO Referring Provider Active St art: August 19, 2024 End: August [birth year], 2024 INFORMATION SOURCE (unrecogn ized section and content) DATE CREATED AUTHOR 03/02/2024 [facility] DATE CREATED AUTHOR AUTHOR'S ORGANIZ ATION 06/06/2024 [facility] DATE CREATED AUTHOR AUTHOR'S ORGANPAULINO ATION 09/05/2024 [facility] Source Comments (unrecognize d section and content) In the event this informatio n is protected by the Federal Confidentiality of Alcohol and Drug Abuse Patient Records regulations: The Federal rules restrict any use of the information to criminally investigate or prosecute any alcohol or drug abuse patient.[facility] the event this information is protected by the Federal Confidentiality of Alcohol and Drug Abuse Patient Records regulations: The Federal rules restrict any use of the information to criminally investigate or prosecute any alcohol or drug abuse patient.[facility] the event this information is protected by the Federal Confidentiality of Alcohol and Drug Abuse Patient Records regulations: The Federal rules restrict any use of the information to criminally investigate or prosecute any alcohol or drug abuse patient.[facility] Center[facility] the event this information is protected by the Federal Confidentiality of Alcohol and Drug Abuse Patient Records regulations: The Federal rules restrict any use of the information to criminally investigate or prosecute any alcohol or drug abuse patient.[facility] Center[facility] the event this information is protected by the Federal Confidentiality of Alcohol and Drug Abuse Patient Records regulations: The Federal rules restrict any use of the information to criminally investigate or prosecute any alcohol or drug abuse patient.[facility] CenterIn the event this information is protected by the Federal Confidentiality of Alcohol and Drug Abuse Patient Records regulations: The Federal rules restrict any use of the information to criminally investigate or prosecute any alcohol or drug abuse patient.[facility] CenterIn the event this information is protected by the Federal Confidentiality of Alcohol and Drug Abuse Patient Records regulations: The Federal rules restrict any use of the information to criminally investigate or prosecute any alcohol or drug abuse patient.[facility] CenterIn the event this information is protected by the Federal Confidentiality of Alcohol and Drug Abuse Patient Records regulations: The Federal rules restrict any use of the information to criminally investigate or prosecute any alcohol or drug abuse patient.[facility] CenterIn the event this information is protected by the Federal Confidentiality of Alcohol and Drug Abuse Patient Records regulations: The Federal rules restrict any use of the information to criminally investigate or prosecute any alcohol or drug abuse patient.[facility] CenterIn the event this information is protected by the Federal Confidentiality of Alcohol and Drug Abuse Patient Records regulations: The Federal rules restrict any use of the information to criminally investigate or prosecute any alcohol or drug abuse patient.[facility] Goals (unrecognized section and content) Goals may be documented in a n alternate section FOR RECORDS PERTAINING TO PATIENTS WHO ARE OR HAVE BEEN ENROLLED IN A CHEMICAL DEPENDENCY/SUBSTANCEABUSE PROGRAM, SOME INFORMATION MAY BE OMITTED. This clinical summary was aggregated from multiple sources. Caution should be exercised in using it in the provision of clinical care. This summary normalizes information from multiple sources, and as a consequence, information in this document may materially change the coding, format and clinical context of patient data. In addition, data may be omitted in some cases. CLINICAL DECISIONS SHOULD BE BASED ON THE PRIMARY CLINICAL RECORDS. [facility] [employer] [facility]. provides no warranty or guarantee of the accuracy or completeness of information in this document.
[2025-02-01 14:41] LABS: AST(SGOT) 20 U/L (<=31); Alanine Aminotransfer ALT/SGPT 12 U/L (<=34); Albumin, Serum 3.4 g/dL (3.4-4.8); Alkaline Phosphatase 152 U/L (35-104); Anion Gap 14 (5-15); BUN 53 mg/dL (4-19); BUN/Creat Ratio 31.2 RATIO (10-20); CPK Total, Creatine Kinase 80 U/L (24-195); Calcium,Total 10.3 mg/dL (7.6-11.0); Carbon Dioxide 20.8 mmol/L (21.0-32.0); Chloride 95 mmol/L (98-108); Estimated Creatinine Clearance 25.72 ml/min (50-250); Globulin 3.4 g/dL (2.2-4.2); Glucose 255 mg/dL (70-99); Potassium 4.8 mmol/L (3.3-5.1)
[2025-02-01 14:46] LABS: Squamous Epithelial Cells - UA 5-10 SEEN /hpf (5-10); Transitional Epithelial - Ur 0-5 SEEN /hpf (0-5)
[2025-02-01] MEDS: Piperacil/Tazobactam 4.5 GM in 0.9% Normal Saline (100mL MB+) 100 ML IV (14:46)
[2025-02-01] MEDS: 0.9% Normal Saline (1000mL) 1,000 ML 1000 ML IV (14:46)
--- NOTE | 2025-02-01 15:25 | RAD_ITS ---
PROCEDURE: HIP, UNI W/ PELVIS 2-3 VIEWS 02/01/2025 REASON FOR EXAM: RIGHT HIP WOUND TECHNIQUE: HIP, UNI W/ PELVIS 2-3 VIEWS COMPARISON: Right hip CT and right hip radiographs 06/17/2024. FINDINGS: Hardware: Prior ORIF of the right intertrochanteric fracture. Interval migration of the femoral neck hardware component through the femoral head, into the acetabulum. Bones: No obvious acute fracture. Mild interval osseous healing of the prior right intertrochanteric fracture. There is foreshortening of the right leg, similar to prior examination. Joints: Fixation of the right femoral head secondary to migrated hardware. 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 Soft tissues: Vascular calcifications. Other: Severe lumbar spondylosis and rightward curvature of the lumbar spine. RAD/HIP, UNI W/ Pelvis 2-3 Views IMPRESSION: 1. No obvious acute fracture. 2. Migration of the right femoral neck hardware component through the femoral h ead, into the acetabulum. 3. Foreshortening of the right leg, similar to prior. However, CT examination of the right hip may be useful for further evaluation if clinically indicated. Reading Location: [id number]
--- OUTSIDE RECORDS SUMMARY | 2025-02-01 15:44 | XMS RPT_ITS | CCD ---
Author Organization [facility] Care Team Providers Care Whiskey Filterer Name Role Phone [facility] Leonard [facility] Un[facility] Un available Ana England MD Unavailable [...] Chapa Consulting Unavailable Norma Brooke Consulting Unavailable KASIA, WAGNER Consulting Unavailable Shira, Leonidas Consulting Unavailable Keri, Maegan Consulting Unavailable Bc Zeng Consulting Unavailable Ventura De Leon Attending Unavailable Martin Banuelos Consulting Unavailable Moises, Ventura Consulting Unavailable Fast, Julieta Primary Care Unavailable Rebecca Kaye Attending Unavailable Fast, Julieta Primary Care Unavailable Fast, Ujlieta Attending Unavailable Fast, Julieta Referring Unavailable Fast, Julieta Primary Care Unavailable Adan Perez Attending Unavailable Fast, Julieta Primary Care Unavailable Adan Perez Referring Unavailable Adan Perez Attending Unavailable Fast DO, Dr. Garcia Primary Care Provider [phone] Darion SINGER, Dr. Garcia Attending Provider Fast DO, Dr. Garcia Referring Provider Allergies Allergy Classification Reported Allergen(s) Allergy Type Date of Onset Reaction(s) Facility (12 sources) Sulfonamides (Antibiotic) Propensity to adverse reactions to drug 4 Itching [facility] (3 sources) Sulfonamides (Antibiotic); Translations: [SULFA (SULFONAMIDE ANTIBIOTICS)] Propensity to adverse reactions to drug (disorder) 4 NEEDS FOLLOW-UP [facility] Repository Comment on above: spouse [...] January 08, 2024 12:00am polyethylene glycol 3350 42663 mg powder for oral solution (4 sources) [...] MEALS 0 June 20, 2024 1:00am sennosides, halfway 8.6 mg oral tablet (4 sources) Start: [...] Active docusate sodium 50 mg / sennosides, halfway 8.6 mg oral tablet (1 source) Start: [...] at 0722, Until Specified, Who to Notify: 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 Glucose is less than 80 [...] glucose is greater than 200md/dl, then notify [employer] Worker. [Order 2 End] [Order 3 Start] Name: [...] 50% needed, contact pharmacy or obtain from [facility] cart ++ [Order 5 End] [Order 6 [...] at 0739, Until Specified, Who to Notify: Geothermal Sheet Metal Worker, For all Blood Glucose LESS THAN 80 mg/dl, notify [employer] Sheet Metal Worker after treatment per Hypoglycemia in Non- Adults [...] 50% needed, contact pharmacy or obtain from [facility] ++ [Order 1 End] [Order 2 [...] at 0843, Until Specified, Who to Notify: Geothermal Sheet Metal Worker, For all Blood Glucose LESS THAN 80 mg/dl, notify Ge[employer] Sheet Metal Worker after treatment per Hypoglycemia in Non- Adults [...] B (Bld) [Mass/Vol] 220.1 pg/mL High 0-100 [facility] BNP,B-Type NATRIURETIC PEPTI Rah 08-19-2024 Natriuretic peptide B (Bld) [Mass/Vol] 220.1 pg/mL High 0-100 [facility] Comment on above: Performed By: #### L 503.6620 ####[facility] [address] [place], [address] Basic Metabolic Profile (BMP )on 08-01-2024 BUN Normal 7-18 [facility] Comment on above: Result Comment: Canc elled via OM: Order cancelled - Patient discharged Performed By: #### L 100.0100, L500.2500 ####[facility] [address] [place], [address] BUN/CRE Normal 10-20 [facility] Comment on above: Result Comment: Canc elled via OM: Order cancelled - Patient discharged Performed By: #### L 100.0100, L500.2500 ####[facility] [address] [place], [address] CA,Total Normal 8.5-10.1 [facility] Comment on above: Result Comment: Canc elled via OM: Order cancelled - Patient discharged Performed By: #### L 100.0100, L500.2500 ####[facility] [address] [place], [address] CL Normal 98-107 [facility] Comment on above: Result Comment: Canc elled via OM: Order cancelled - Patient discharged Performed By: #### L 100.0100, L500.2500 ####[facility] [address] [place], [address] CO2 Normal 21.0-32.0 [facility] Comment on above: Result Comment: Canc elled via OM: Order cancelled - Patient discharged Performed By: #### L 100.0100, L500.2500 ####[facility] [address] [place], [address] CREAT,SERUM Normal 0.55-1.02 [facility] Comment on above: Result Comment: Canc elled via OM: Order cancelled - Patient discharged Performed By: #### L 100.0100, L500.2500 ####[facility] [address] [place], [address] EST GFR Normal >60 [facility] Comment on above: Result Comment: Canc elled via OM: Order cancelled - Patient discharged Performed By: #### L 100.0100, L500.2500 ####[facility] [address] [place], [address] EST GFR - AA Normal >60 [facility] Comment on above: Result Comment: Canc elled via OM: Order cancelled - Patient discharged Performed By: #### L 100.0100, L500.2500 ####[facility] [address] [place], [address] GAP Normal 5-15 [facility] Comment on above: Result Comment: Canc elled via OM: Order cancelled - Patient discharged Performed By: #### L 100.0100, L500.2500 ####[facility] [address] [place], [address] GLU Normal 74-106 [facility] Comment on above: Result Comment: Canc elled via OM: Order cancelled - Patient discharged Performed By: #### L 100.0100, L500.2500 ####[facility] [address] [place], [address] Potassium Normal 3.5-5.1 [facility] Comment on above: Result Comment: Canc elled via OM: Order cancelled - Patient discharged Performed By: #### L 100.0100, L500.2500 ####[facility] [address] [place], [address] Basic Metabolic Profile (BMP) Normal 136-145 [facility] Comment on above: Result Comment: Canc elled via OM: Order cancelled - Patient discharged Performed By: #### L 100.0100, L500.2500 ####[facility] [address] [place], [address] CBC W/Diff, Automatedon - Absolute Neut Normal 2.0-7.7 [facility] Comment on above: Result Comment: Canc elled via OM: Order cancelled - Patient discharged Performed By: #### L 100.0100, L500.2500 ####[facility] [address] [place], [address] HCT Normal 37-47 [facility] Comment on above: Result Comment: Canc elled via OM: Order cancelled - Patient discharged Performed By: #### L 100.0100, L500.2500 ####[facility] [address] [place], [address] HGB Normal 12.0-15.0 [facility] Comment on above: Result Comment: Canc elled via OM: Order cancelled - Patient discharged Performed By: #### L 100.0100, L500.2500 ####[facility] [address] [place], [address] MCH Normal 27.0-32.0 [facility] Comment on above: Result Comment: Canc elled via OM: Order cancelled - Patient discharged Performed By: #### L 100.0100, L500.2500 ####[facility] [address] [place], [address] MCHC Normal 32-36 [facility] Comment on above: Result Comment: Canc elled via OM: Order cancelled - Patient discharged Performed By: #### L 100.0100, L500.2500 ####[facility] [address] [place], [address] MCV Normal 81-99 [facility] Comment on above: Result Comment: Canc elled via OM: Order cancelled - Patient discharged Performed By: #### L 100.0100, L500.2500 ####[facility] [address] [place], [address] NEUT% Normal 47-70 [facility] Comment on above: Result Comment: Canc elled via OM: Order cancelled - Patient discharged Performed By: #### L 100.0100, L500.2500 ####[facility] [address] [place], [address] PLT Normal 150-450 [facility] Comment on above: Result Comment: Canc elled via OM: Order cancelled - Patient discharged Performed By: #### L 100.0100, L500.2500 ####[facility] [address] [place], [address] RBC Normal 4.2-5.4 [facility] Comment on above: Result Comment: Canc elled via OM: Order cancelled - Patient discharged Performed By: #### L 100.0100, L500.2500 ####[facility] [address] [place], [address] RDW CV Normal 11.6-14.6 [facility] Comment on above: Result Comment: Canc elled via OM: Order cancelled - Patient discharged Performed By: #### L 100.0100, L500.2500 ####[facility] [address] [place], [address] RDW SD Normal 35.1-43.9 [facility] Comment on above: Result Comment: Canc elled via OM: Order cancelled - Patient discharged Performed By: #### L 100.0100, L500.2500 ####[facility] [address] [place], [address] WBC Normal 4.4-11.0 [facility] Comment on above: Result Comment: Canc elled via OM: Order cancelled - Patient discharged Performed By: #### L 100.0100, L500.2500 ####[facility] [address] [place], [address] Basic Metabolic Profile (BMP )on 07-25-2024 BUN Normal 7-18 [facility] Comment on above: Result Comment: Canc elled via OM: Order cancelled - Patient discharged Performed By: #### L 100.0100, L500.2500 ####[facility] [address] [place], [address] BUN/CRE Normal 10-20 [facility] Comment on above: Result Comment: Canc elled via OM: Order cancelled - Patient discharged Performed By: #### L 100.0100, L500.2500 ####[facility] [address] [place], [address] CA,Total Normal 8.5-10.1 [facility] Comment on above: Result Comment: Canc elled via OM: Order cancelled - Patient discharged Performed By: #### L 100.0100, L500.2500 ####[facility] [address] [place], [address] CL Normal 98-107 [facility] Comment on above: Result Comment: Canc elled via OM: Order cancelled - Patient discharged Performed By: #### L 100.0100, L500.2500 ####[facility] [address] [place], [address] CO2 Normal 21.0-32.0 [facility] Comment on above: Result Comment: Canc elled via OM: Order cancelled - Patient discharged Performed By: #### L 100.0100, L500.2500 ####[facility] [address] [place], [address] CREAT,SERUM Normal 0.55-1.02 [facility] Comment on above: Result Comment: Canc elled via OM: Order cancelled - Patient discharged Performed By: #### L 100.0100, L500.2500 ####[facility] [address] [place], [address] EST GFR Normal >60 [facility] Comment on above: Result Comment: Canc elled via OM: Order cancelled - Patient discharged Performed By: #### L 100.0100, L500.2500 ####[facility] [address] [place], [address] EST GFR - AA Normal >60 [facility] Comment on above: Result Comment: Canc elled via OM: Order cancelled - Patient discharged Performed By: #### L 100.0100, L500.2500 ####[facility] [address] [place], [address] GAP Normal 5-15 [facility] Comment on above: Result Comment: Canc elled via OM: Order cancelled - Patient discharged Performed By: #### L 100.0100, L500.2500 ####[facility] [address] [place], [address] GLU Normal 74-106 [facility] Comment on above: Result Comment: Canc elled via OM: Order cancelled - Patient discharged Performed By: #### L 100.0100, L500.2500 ####[facility] [address] [place], [address] Potassium Normal 3.5-5.1 [facility] Comment on above: Result Comment: Canc elled via OM: Order cancelled - Patient discharged Performed By: #### L 100.0100, L500.2500 ####[facility] [address] [place], [address] Basic Metabolic Profile (BMP) Normal 136-145 [facility] Comment on above: Result Comment: Canc elled via OM: Order cancelled - Patient discharged Performed By: #### L 100.0100, L500.2500 ####[facility] [address] [place], [address] CBC W/Diff, Automatedon 07-16 Absolute Neut Normal 2.0-7.7 [facility] Comment on above: Result Comment: Canc elled via OM: Order cancelled - Patient discharged Performed By: #### L 100.0100, L500.2500 ####[facility] [address] [place], [address] HCT Normal 37-47 [facility] Comment on above: Result Comment: Canc elled via OM: Order cancelled - Patient discharged Performed By: #### L 100.0100, L500.2500 ####[facility] [address] [place], [address] HGB Normal 12.0-15.0 [facility] Comment on above: Result Comment: Canc elled via OM: Order cancelled - Patient discharged Performed By: #### L 100.0100, L500.2500 ####[facility] [address] [place], [address] MCH Normal 27.0-32.0 [facility] Comment on above: Result Comment: Canc elled via OM: Order cancelled - Patient discharged Performed By: #### L 100.0100, L500.2500 ####[facility] [address] [place], [address] MCHC Normal 32-36 [facility] Comment on above: Result Comment: Canc elled via OM: Order cancelled - Patient discharged Performed By: #### L 100.0100, L500.2500 ####[facility] [address] [place], [address] MCV Normal 81-99 [facility] Comment on above: Result Comment: Canc elled via OM: Order cancelled - Patient discharged Performed By: #### L 100.0100, L500.2500 ####[facility] [address] [place], [address] NEUT% Normal 47-70 [facility] Comment on above: Result Comment: Canc elled via OM: Order cancelled - Patient discharged Performed By: #### L 100.0100, L500.2500 ####[facility] [address] [place], [address] PLT Normal 150-450 [facility] Comment on above: Result Comment: Canc elled via OM: Order cancelled - Patient discharged Performed By: #### L 100.0100, L500.2500 ####[facility] [address] [place], [address] RBC Normal 4.2-5.4 [facility] Comment on above: Result Comment: Canc elled via OM: Order cancelled - Patient discharged Performed By: #### L 100.0100, L500.2500 ####[facility] [address] [place], [address] RDW CV Normal 11.6-14.6 [facility] Comment on above: Result Comment: Canc elled via OM: Order cancelled - Patient discharged Performed By: #### L 100.0100, L500.2500 ####[facility] [address] [place], [address] RDW SD Normal 35.1-43.9 [facility] Comment on above: Result Comment: Canc elled via OM: Order cancelled - Patient discharged Performed By: #### L 100.0100, L500.2500 ####[facility] [address] [place], [address] WBC Normal 4.4-11.0 [facility] Comment on above: Result Comment: Canc elled via OM: Order cancelled - Patient discharged Performed By: #### L 100.0100, L500.2500 ####[facility] [address] [place], [address] Basic Metabolic Profile (BMP )on 07-18-2024 BUN Normal 7-18 [facility] Comment on above: Result Comment: Canc elled via OM: Order cancelled - Patient discharged Performed By: #### L 500.2500, L100.0100 ####[facility] [address] [place], [address] BUN/CRE Normal 10-20 [facility] Comment on above: Result Comment: Canc elled via OM: Order cancelled - Patient discharged Performed By: #### L 500.2500, L100.0100 ####[facility] [address] [place], [address] CA,Total Normal 8.5-10.1 [facility] Comment on above: Result Comment: Canc elled via OM: Order cancelled - Patient discharged Performed By: #### L 500.2500, L100.0100 ####[facility] [address] [place], [address] CL Normal 98-107 [facility] Comment on above: Result Comment: Canc elled via OM: Order cancelled - Patient discharged Performed By: #### L 500.2500, L100.0100 ####[facility] [address] [place], [address] CO2 Normal 21.0-32.0 [facility] Comment on above: Result Comment: Canc elled via OM: Order cancelled - Patient discharged Performed By: #### L 500.2500, L100.0100 ####[facility] [address] [place], [address] CREAT,SERUM Normal 0.55-1.02 [facility] Comment on above: Result Comment: Canc elled via OM: Order cancelled - Patient discharged Performed By: #### L 500.2500, L100.0100 ####[facility] [address] [place], [address] EST GFR Normal >60 [facility] Comment on above: Result Comment: Canc elled via OM: Order cancelled - Patient discharged Performed By: #### L 500.2500, L100.0100 ####[facility] [address] [place], [address] EST GFR - AA Normal >60 [facility] Comment on above: Result Comment: Canc elled via OM: Order cancelled - Patient discharged Performed By: #### L 500.2500, L100.0100 ####[facility] [address] [place], [address] GAP Normal 5-15 [facility] Comment on above: Result Comment: Canc elled via OM: Order cancelled - Patient discharged Performed By: #### L 500.2500, L100.0100 ####[facility] [address] [place], [address] GLU Normal 74-106 [facility] Comment on above: Result Comment: Canc elled via OM: Order cancelled - Patient discharged Performed By: #### L 500.2500, L100.0100 ####[facility] [address] [place], [address] Potassium Normal 3.5-5.1 [facility] Comment on above: Result Comment: Canc elled via OM: Order cancelled - Patient discharged Performed By: #### L 500.2500, L100.0100 ####[facility] [address] [place], [address] Basic Metabolic Profile (BMP) Normal 136-145 [facility] Comment on above: Result Comment: Canc elled via OM: Order cancelled - Patient discharged Performed By: #### L 500.2500, L100.0100 ####[facility] [address] [place], [address] CBC W/Diff, Automatedon 01-0 Absolute Neut Normal 2.0-7.7 [facility] Comment on above: Result Comment: Canc elled via OM: Order cancelled - Patient discharged Performed By: #### L 500.2500, L100.0100 ####[facility] [address] [place], [address] HCT Normal 37-47 [facility] Comment on above: Result Comment: Canc elled via OM: Order cancelled - Patient discharged Performed By: #### L 500.2500, L100.0100 ####[facility] [address] [place], [address] HGB Normal 12.0-15.0 [facility] Comment on above: Result Comment: Canc elled via OM: Order cancelled - Patient discharged Performed By: #### L 500.2500, L100.0100 ####[facility] [address] [place], [address] MCH Normal 27.0-32.0 [facility] Comment on above: Result Comment: Canc elled via OM: Order cancelled - Patient discharged Performed By: #### L 500.2500, L100.0100 ####[facility] [address] [place], [address] MCHC Normal 32-36 [facility] Comment on above: Result Comment: Canc elled via OM: Order cancelled - Patient discharged Performed By: #### L 500.2500, L100.0100 ####[facility] [address] [place], [address] MCV Normal 81-99 [facility] Comment on above: Result Comment: Canc elled via OM: Order cancelled - Patient discharged Performed By: #### L 500.2500, L100.0100 ####[facility] [address] [place], [address] NEUT% Normal 47-70 [facility] Comment on above: Result Comment: Canc elled via OM: Order cancelled - Patient discharged Performed By: #### L 500.2500, L100.0100 ####[facility] [address] [place], [address] PLT Normal 150-450 [facility] Comment on above: Result Comment: Canc elled via OM: Order cancelled - Patient discharged Performed By: #### L 500.2500, L100.0100 ####[facility] [address] [place], [address] RBC Normal 4.2-5.4 [facility] Comment on above: Result Comment: Canc elled via OM: Order cancelled - Patient discharged Performed By: #### L 500.2500, L100.0100 ####[facility] [address] [place], [address] RDW CV Normal 11.6-14.6 [facility] Comment on above: Result Comment: Canc elled via OM: Order cancelled - Patient discharged Performed By: #### L 500.2500, L100.0100 ####[facility] [address] [place], [address] RDW SD Normal 35.1-43.9 [facility] Comment on above: Result Comment: Canc elled via OM: Order cancelled - Patient discharged Performed By: #### L 500.2500, L100.0100 ####[facility] [address] [place], [address] WBC Normal 4.4-11.0 [facility] Comment on above: Result Comment: Canc elled via OM: Order cancelled - Patient discharged Performed By: #### L 500.2500, L100.0100 ####[facility] [address] [place], [address] Basic Metabolic Profile (BMP )on 07-11-2024 BUN Normal 7-18 [facility] Comment on above: Result Comment: Canc elled via OM: Order cancelled - Patient discharged Performed By: #### L 100.0100, L500.2500 ####[facility] [address] [place], [address] BUN/CRE Normal 10-20 [facility] Comment on above: Result Comment: Canc elled via OM: Order cancelled - Patient discharged Performed By: #### L 100.0100, L500.2500 ####[facility] [address] [place], [address] CA,Total Normal 8.5-10.1 [facility] Comment on above: Result Comment: Canc elled via OM: Order cancelled - Patient discharged Performed By: #### L 100.0100, L500.2500 ####[facility] [address] [place], [address] CL Normal 98-107 [facility] Comment on above: Result Comment: Canc elled via OM: Order cancelled - Patient discharged Performed By: #### L 100.0100, L500.2500 ####[facility] [address] [place], [address] CO2 Normal 21.0-32.0 [facility] Comment on above: Result Comment: Canc elled via OM: Order cancelled - Patient discharged Performed By: #### L 100.0100, L500.2500 ####[facility] [address] [place], [address] CREAT,SERUM Normal 0.55-1.02 [facility] Comment on above: Result Comment: Canc elled via OM: Order cancelled - Patient discharged Performed By: #### L 100.0100, L500.2500 ####[facility] [address] [place], [address] EST GFR Normal >60 [facility] Comment on above: Result Comment: Canc elled via OM: Order cancelled - Patient discharged Performed By: #### L 100.0100, L500.2500 ####[facility] [address] [place], [address] EST GFR - AA Normal >60 [facility] Comment on above: Result Comment: Canc elled via OM: Order cancelled - Patient discharged Performed By: #### L 100.0100, L500.2500 ####[facility] [address] [place], [address] GAP Normal 5-15 [facility] Comment on above: Result Comment: Canc elled via OM: Order cancelled - Patient discharged Performed By: #### L 100.0100, L500.2500 ####[facility] [address] [place], [address] GLU Normal 74-106 [facility] Comment on above: Result Comment: Canc elled via OM: Order cancelled - Patient discharged Performed By: #### L 100.0100, L500.2500 ####[facility] [address] [place], [address] Potassium Normal 3.5-5.1 [facility] Comment on above: Result Comment: Canc elled via OM: Order cancelled - Patient discharged Performed By: #### L 100.0100, L500.2500 ####[facility] [address] [place], [address] Basic Metabolic Profile (BMP) Normal 136-145 [facility] Comment on above: Result Comment: Canc elled via OM: Order cancelled - Patient discharged Performed By: #### L 100.0100, L500.2500 ####[facility] [address] [place], [address] CBC W/Diff, Automatedon 12-2 Absolute Neut Normal 2.0-7.7 [facility] Comment on above: Result Comment: Canc elled via OM: Order cancelled - Patient discharged Performed By: #### L 100.0100, L500.2500 ####[facility] [address] [place], [address] HCT Normal 37-47 [facility] Comment on above: Result Comment: Canc elled via OM: Order cancelled - Patient discharged Performed By: #### L 100.0100, L500.2500 ####[facility] [address] [place], [address] HGB Normal 12.0-15.0 [facility] Comment on above: Result Comment: Canc elled via OM: Order cancelled - Patient discharged Performed By: #### L 100.0100, L500.2500 ####[facility] [address] [place], [address] MCH Normal 27.0-32.0 [facility] Comment on above: Result Comment: Canc elled via OM: Order cancelled - Patient discharged Performed By: #### L 100.0100, L500.2500 ####[facility] [address] [place], [address] MCHC Normal 32-36 [facility] Comment on above: Result Comment: Canc elled via OM: Order cancelled - Patient discharged Performed By: #### L 100.0100, L500.2500 ####[facility] [address] [place], [address] MCV Normal 81-99 [facility] Comment on above: Result Comment: Canc elled via OM: Order cancelled - Patient discharged Performed By: #### L 100.0100, L500.2500 ####[facility] [address] [place], [address] NEUT% Normal 47-70 [facility] Comment on above: Result Comment: Canc elled via OM: Order cancelled - Patient discharged Performed By: #### L 100.0100, L500.2500 ####[facility] [address] [place], [address] PLT Normal 150-450 [facility] Comment on above: Result Comment: Canc elled via OM: Order cancelled - Patient discharged Performed By: #### L 100.0100, L500.2500 ####[facility] [address] [place], [address] RBC Normal 4.2-5.4 [facility] Comment on above: Result Comment: Canc elled via OM: Order cancelled - Patient discharged Performed By: #### L 100.0100, L500.2500 ####[facility] [address] [place], [address] RDW CV Normal 11.6-14.6 [facility] Comment on above: Result Comment: Canc elled via OM: Order cancelled - Patient discharged Performed By: #### L 100.0100, L500.2500 ####[facility] [address] [place], [address] RDW SD Normal 35.1-43.9 [facility] Comment on above: Result Comment: Canc elled via OM: Order cancelled - Patient discharged Performed By: #### L 100.0100, L500.2500 ####[facility] [address] [place], [address] WBC Normal 4.4-11.0 [facility] Comment on above: Result Comment: Canc elled via OM: Order cancelled - Patient discharged Performed By: #### L 100.0100, L500.2500 ####[facility] [address] [place], [address] Bedside Glucoseon 07-06-2024 FINGERSTICK GLU 143 mg/dL High 74-106 [facility] Comment on above: Result Comment: ADAL GEMENT OF PATIENT CARE PER NURSING PROTOCOL Performed By: #### L 501.080 ####[facility] [address] [place], [address] Bedside Glucoseon 4 FINGERSTICK GLU 231 mg/dL High 74-106 [facility] Comment on above: Result Comment: ADAL GEMENT OF PATIENT CARE PER NURSING PROTOCOL Performed By: #### L 501.080 ####[facility] [address] [place], [address] FINGERSTICK GLU 206 mg/dL High 74-106 [facility] Comment on above: Result Comment: ADAL GEMENT OF PATIENT CARE PER NURSING PROTOCOL Performed By: #### L 501.080 ####[facility] [address] [place], [address] FINGERSTICK GLU 238 mg/dL High 74-106 [facility] Comment on above: Result Comment: ADAL GEMENT OF PATIENT CARE PER NURSING PROTOCOL Performed By: #### L 501.080 ####[facility] [address] [place], [address] FINGERSTICK GLU 137 mg/dL High 74-106 [facility] Comment on above: Result Comment: ADAL GEMENT OF PATIENT CARE PER NURSING PROTOCOL Performed By: #### L 501.080 ####[facility] [address] [place], [address] Basic Metabolic Profile (BMP )on 07-04-2024 BUN/CRE 28.0 RATIO High 10-20 [facility] Comment on above: Performed By: #### L 100.0100, L500.2500 ####[facility] [address] [place], [address] CA,Total 9.7 mg/dL Normal 8.5-10.1 [facility] Comment on above: Performed By: #### L 100.0100, L500.2500 ####[facility] [address] [place], [address] Chloride [Moles/Vol] 111 mmol/L High 98-107 [facility] Comment on above: Performed By: #### L 100.0100, L500.2500 ####[facility] [address] [place], [address] CO2 [Moles/Vol] 25.0 mmol/L Normal 21.0-32.0 [facility] Comment on above: Performed By: #### L 100.0100, L500.2500 ####[facility] [address] [place], [address] Creatinine [Mass/Vol] 1.18 mg/dL High 0.55-1.02 [facility] Comment on above: Result Comment: The validity of the calculated GFR GFRAA in patients over70 years has not been determined. Clinical correlation isessential. Performed By: #### L 100.0100, L500.2500 ####[facility] [address] [place], [address] ECRCL 36.10 ml/min Normal [facility] Comment on above: Performed By: #### L 100.0100, L500.2500 ####[facility] [address] [place], [address] EST GFR - AA 57 mL/min Low >60 [facility] Comment on above: Result Comment: Afri can Citizen [place] GFR Calc Performed By: #### L 100.0100, L500.2500 ####[facility] [address] [place], [address] GAP 3 Low 5-15 [facility] Comment on above: Performed By: #### L 100.0100, L500.2500 ####[facility] [address] [place], [address] GFR/1.73 sq M.predicted among non-blacks MDRD (S/P/Bld) [Vol rate/Area] 47 mL/min/{1.73_m2} Low >60 [facility] Comment on above: Result Comment: Non- GFR Calc Performed By: #### L 100.0100, L500.2500 ####[facility] [address] [place], [address] Glucose [Mass/Vol] 169 mg/dL High 74-106 [facility] Comment on above: Result Comment: Fast ing Glucose result greater than or equal to 126 mg/dLsuggests DIABETES MELLITUS per A.D.A. criteria. Performed By: #### L 100.0100, L500.2500 ####[facility] [address] [place], [address] Potassium [Moles/Vol] 4.9 mmol/L Normal 3.5-5.1 [facility] Comment on above: Performed By: #### L 100.0100, L500.2500 ####[facility] [address] [place], [address] Sodium [Moles/Vol] 139 mmol/L Normal 136-145 [facility] Comment on above: Performed By: #### L 100.0100, L500.2500 ####[facility] [address] [place], [address] Urea nitrogen [Mass/Vol] 33 mg/dL High 7-18 [facility] Comment on above: Performed By: #### L 100.0100, L500.2500 ####[facility] [address] [place], [address] Bedside Glucoseon 07-04-2024 FINGERSTICK GLU 192 mg/dL High 74-106 [facility] Comment on above: Result Comment: ADAL GEMENT OF PATIENT CARE PER NURSING PROTOCOL Performed By: #### L 501.080 ####[facility] [address] [place], [address] FINGERSTICK GLU 197 mg/dL High 74-106 [facility] Comment on above: Result Comment: ADAL GEMENT OF PATIENT CARE PER NURSING PROTOCOL Performed By: #### L 501.080 ####[facility] [address] [place], [address] FINGERSTICK GLU 151 mg/dL High 74-106 [facility] Comment on above: Result Comment: ADAL GEMENT OF PATIENT CARE PER NURSING PROTOCOL Performed By: #### L 501.080 ####[facility] [address] [place], [address] CBC W/Diff, Automatedon 12-2 0-2023 Absolute Lymph 1.58 X10 3/uL Normal 0.83-4.51 [facility] Comment on above: Performed By: #### L 100.0100, L500.2500 ####[facility] [address] [place], [address] Absolute Neut 4.0 X10 3/uL Normal 2.0-7.7 [facility] Comment on above: Performed By: #### L 100.0100, L500.2500 ####[facility] [address] [place], [address] Basophils/100 WBC (Bld) 0.8 % Normal 0-1 [facility] Comment on above: Performed By: #### L 100.0100, L500.2500 ####[facility] [address] [place], [address] Eosinophils/100 WBC (Bld) 3.3 % Normal 0-5 [facility] Comment on above: Performed By: #### L 100.0100, L500.2500 ####[facility] [address] [place], [address] Erythrocyte distribution width (RBC) [Ratio] 16.9 % High 11.6-14.6 [facility] Comment on above: Performed By: #### L 100.0100, L500.2500 ####[facility] [address] [place], [address] Hematocrit (Bld) [Volume fraction] 36.1 % Low 37-47 [facility] Comment on above: Performed By: #### L 100.0100, L500.2500 ####[facility] [address] [place], [address] Hemoglobin (Bld) [Mass/Vol] 10.9 g/dL Low 12.0-15.0 [facility] Comment on above: Performed By: #### L 100.0100, L500.2500 ####[facility] [address] [place], [address] IG% 0.300 Normal 0.0-0.9 [facility] Comment on above: Result Comment: IG% - Immature Granulocytes (promyelocytes, myelocytes andmetamyelocytes) > 1% indicates that a LEFT SHIFT is Present. Performed By: #### L 100.0100, L500.2500 ####[facility] [address] [place], [address] Lymphocytes/100 WBC (Bld) 24.8 % Normal 19-41 [facility] Comment on above: Performed By: #### L 100.0100, L500.2500 ####[facility] [address] [place], [address] MCH (RBC) [Entitic mass] 26.0 pg Low 27.0-32.0 [facility] Comment on above: Performed By: #### L 100.0100, L500.2500 ####[facility] [address] [place], [address] MCHC (RBC) [Mass/Vol] 30.2 g/dL Low 32-36 [facility] Comment on above: Performed By: #### L 100.0100, L500.2500 ####[facility] [address] [place], [address] MCV (RBC) [Entitic vol] 86.2 fL Normal 81-99 [facility] Comment on above: Performed By: #### L 100.0100, L500.2500 ####[facility] [address] [place], [address] Monocytes/100 WBC (Bld) 8.6 % Normal 0-10 [facility] Comment on above: Performed By: #### L 100.0100, L500.2500 ####[facility] [address] [place], [address] Neutrophils/100 WBC (Bld) 62.2 % Normal 47-70 [facility] Comment on above: Performed By: #### L 100.0100, L500.2500 ####[facility] [address] [place], [address] Nucleated RBC (Bld) [#/Vol] 0 10*3/uL Normal 0-5 [facility] Comment on above: Performed By: #### L 100.0100, L500.2500 ####[facility] [address] [place], [address] Platelet mean volume (Bld) [Entitic vol] 10.2 fL Normal 6.2-12.0 [facility] Comment on above: Performed By: #### L 100.0100, L500.2500 ####[facility] [address] [place], [address] Platelets (Bld) [#/Vol] 261 10*3/uL Normal 150-450 [facility] Comment on above: Performed By: #### L 100.0100, L500.2500 ####[facility] [address] [place], [address] RBC (Bld) [#/Vol] 4.19 10*6/uL Low 4.2-5.4 [facility] Comment on above: Performed By: #### L 100.0100, L500.2500 ####[facility] [address] [place], [address] RDW SD 52.9 fl High 35.1-43.9 [facility] Comment on above: Performed By: #### L 100.0100, L500.2500 ####[facility] [address] [place], [address] WBC (Bld) [#/Vol] 6.4 10*3/uL Normal 4.4-11.0 [facility] Comment on above: Performed By: #### L 100.0100, L500.2500 ####[facility] [address] [place], [address] Bedside Glucoseon 12-19-2024 FINGERSTICK GLU 265 mg/dL High 74-106 [facility] Comment on above: Result Comment: ADAL GEMENT OF PATIENT CARE PER NURSING PROTOCOL Performed By: #### L 501.080 ####[facility] [address] [place], [address] FINGERSTICK GLU 130 mg/dL High [facility]106 [facility] Comment on above: Result Comment: ADAL GEMENT OF PATIENT CARE PER NURSING PROTOCOL Performed By: #### L 501.080 ####[facility] [address] [facility] [address] FINGERSTICK GLU 220 mg/dL High [address] [place] [address] Comment on above: Result Comment: ADAL GEMENT OF PATIENT CARE PER NURSING PROTOCOL Performed By: #### L 501.080 ####[facility] [address] [facility] [address] FINGERSTICK GLU 119 mg/dL High [address] [place] [address] Comment on above: Result Comment: ADAL GEMENT OF PATIENT CARE PER NURSING PROTOCOL Performed By: #### L 501.080 ####[facility] [address] [place], [address] Bedside Glucoseon 4 FINGERSTICK GLU 151 mg/dL High [address] [place] [address] Comment on above: Result Comment: ADAL GEMENT OF PATIENT CARE PER NURSING PROTOCOL Performed By: #### L 501.080 ####[facility] [address] [place], [address] FINGERSTICK GLU 110 mg/dL High [address] [place] [address] Comment on above: Result Comment: ADAL GEMENT OF PATIENT CARE PER NURSING PROTOCOL Performed By: #### L 501.080 ####[facility] [address] [place], [address] FINGERSTICK GLU 159 mg/dL High [facility]106 [facility] Comment on above: Result Comment: ADAL GEMENT OF PATIENT CARE PER NURSING PROTOCOL Performed By: #### L 501.080 ####[facility] [address] [place], [address] FINGERSTICK GLU 109 mg/dL High [facility]106 [facility] Comment on above: Result Comment: ADAL GEMENT OF PATIENT CARE PER NURSING PROTOCOL Performed By: #### L 501.080 ####[facility] [address] [place], [address] Bedside Glucoseon 12-4 FINGERSTICK GLU 114 mg/dL High -106 [facility] Comment on above: Result Comment: ADAL GEMENT OF PATIENT CARE PER NURSING PROTOCOL Performed By: #### L 501.080 ####[facility] [address] [place], [address] FINGERSTICK GLU 123 mg/dL High -[address] [place] [address] Comment on above: Result Comment: ADAL GEMENT OF PATIENT CARE PER NURSING PROTOCOL Performed By: #### L 501.080 ####[facility] [address] [place], [address] FINGERSTICK GLU 96 mg/dL Normal -[address] [place] [address] Comment on above: Result Comment: ADAL GEMENT OF PATIENT CARE PER NURSING PROTOCOL Performed By: #### L 501.080 ####[facility] [address] [place], [address] Bedside Glucoseon 16-4 FINGERSTICK GLU 146 mg/dL High [address] [place] [address] Comment on above: Result Comment: ADAL GEMENT OF PATIENT CARE PER NURSING PROTOCOL Performed By: #### L 501.080 ####[facility] [address] [place], [address] FINGERSTICK GLU 42 mg/dL Invalid Interpretation Code 74-106 [facility] Comment on above: Result Comment: Dr Prisca griffith FollowedMANAGEMENT OF PATIENT CARE PER NURSING PROTOCOL Performed By: #### L 501.080 ####[facility] [address] [place], [address] FINGERSTICK GLU 88 mg/dL Normal 74-106 [facility] Comment on above: Result Comment: ADAL GEMENT OF PATIENT CARE PER NURSING PROTOCOL Performed By: #### L 501.080 ####[facility] [address] [place], [address] FINGERSTICK GLU 116 mg/dL High 74-106 [facility] Comment on above: Result Comment: ADAL GEMENT OF PATIENT CARE PER NURSING PROTOCOL Performed By: #### L 501.080 ####[facility] [address] [place], [address] FINGERSTICK GLU 118 mg/dL High 74-106 [facility] Comment on above: Result Comment: ADAL GEMENT OF PATIENT CARE PER NURSING PROTOCOL Performed By: #### L 501.080 ####[facility] [address] [place], [address] COVID 19 AG RAPID (RN DANIEL Head)on 06-30-2024 SARS-CoV-2 (COVID-19) RNA JAYLIN+probe Ql (Unsp spec) SARS-CoV-2 (COVID 19) Negative RAPID METHOD BinaxNow COVID19 Ag Card Normal [facility] Comment on above: Performed By: #### M 100.505 ####[facility] [address] [place], [address] Bedside Glucoseon 06-29-2024 FINGERSTICK GLU 90 mg/dL Normal 74-106 [facility] Comment on above: Result Comment: ADAL GEMENT OF PATIENT CARE PER NURSING PROTOCOL Performed By: #### L 501.080 ####[facility] [address] [place], [address] FINGERSTICK GLU 112 mg/dL High 74-106 [facility] Comment on above: Result Comment: ADAL GEMENT OF PATIENT CARE PER NURSING PROTOCOL Performed By: #### L 501.080 ####[facility] [address] [place], [address] FINGERSTICK GLU 59 mg/dL Low 74-106 [facility] Comment on above: Result Comment: ADAL GEMENT OF PATIENT CARE PER NURSING PROTOCOL Performed By: #### L 501.080 ####[facility] [address] [place], [address] FINGERSTICK GLU 214 mg/dL High 74-106 [facility] Comment on above: Result Comment: ADAL GEMENT OF PATIENT CARE PER NURSING PROTOCOL Performed By: #### L 501.080 ####[facility] [address] [place], [address] FINGERSTICK GLU 94 mg/dL Normal 74-106 [facility] Comment on above: Result Comment: ADAL GEMENT OF PATIENT CARE PER NURSING PROTOCOL Performed By: #### L 501.080 ####[facility] [address] [place], [address] Bedside Glucoseon 06-28-2024 FINGERSTICK GLU 80 mg/dL Normal 74-106 [facility] Comment on above: Result Comment: ADAL GEMENT OF PATIENT CARE PER NURSING PROTOCOL Performed By: #### L 501.080 ####[facility] [address] [place], [address] FINGERSTICK GLU 97 mg/dL Normal 74-106 [facility] Comment on above: Result Comment: ADAL GEMENT OF PATIENT CARE PER NURSING PROTOCOL Performed By: #### L 501.080 ####[facility] [address] [place], [address] FINGERSTICK GLU 142 mg/dL High 74-106 [facility] Comment on above: Result Comment: ADAL GEMENT OF PATIENT CARE PER NURSING PROTOCOL Performed By: #### L 501.080 ####[facility] [address] [place], [address] FINGERSTICK GLU 97 mg/dL Normal 74-106 [facility] Comment on above: Result Comment: ADAL GOODEN OF PATIENT CARE PER NURSING PROTOCOL Performed By: #### L 501.080 ####[facility] [address] [place], [address] Basic Metabolic Profile (BMP )on 06-27-2024 BUN/CRE 21.1 RATIO High 10-20 [facility] Comment on above: Performed By: #### L 500.2500, L100.0100 ####[facility] [address] [place], [address] CA,Total 9.6 mg/dL Normal 8.5-10.1 [facility] Comment on above: Performed By: #### L 500.2500, L100.0100 ####[facility] [address] [place], [address] Chloride [Moles/Vol] 110 mmol/L High 98-107 [facility] Comment on above: Performed By: #### L 500.2500, L100.0100 ####[facility] [address] [place], [address] CO2 [Moles/Vol] 27.0 mmol/L Normal 21.0-32.0 [facility] Comment on above: Performed By: #### L 500.2500, L100.0100 ####[facility] [address] [place], [address] Creatinine [Mass/Vol] 1.14 mg/dL High 0.55-1.02 [facility] Comment on above: Result Comment: The validity of the calculated GFR GFRAA in patients over70 years has not been determined. Clinical correlation isessential. Performed By: #### L 500.2500, L100.0100 ####[facility] [address] [place], [address] ECRCL 37.97 ml/min Normal [facility] Comment on above: Performed By: #### L 500.2500, L100.0100 ####[facility] [address] [place], [address] EST GFR - AA 59 mL/min Low >60 [facility] Comment on above: Result Comment: Afri can Citizen [place] GFR Calc Performed By: #### L 500.2500, L100.0100 ####[facility] [address] [place], [address] GAP 3 Low 5-15 [facility] Comment on above: Performed By: #### L 500.2500, L100.0100 ####[facility] [address] [place], [address] GFR/1.73 sq M.predicted among non-blacks MDRD (S/P/Bld) [Vol rate/Area] 49 mL/min/{1.73_m2} Low >60 [facility] Comment on above: Result Comment: Non- GFR Calc Performed By: #### L 500.2500, L100.0100 ####[facility] [address] [place], [address] Glucose [Mass/Vol] 111 mg/dL High 74-106 [facility] Comment on above: Result Comment: Fast ing Glucose result from 100 to 125 mg/dLsuggests IMPAIRED HOMEOSTASIS per A.D.A. criteria. Performed By: #### L 500.2500, L100.0100 ####[facility] [address] [place], [address] Potassium [Moles/Vol] 4.9 mmol/L Normal 3.5-5.1 [facility] Comment on above: Performed By: #### L 500.2500, L100.0100 ####[facility] [address] [place], [address] Sodium [Moles/Vol] 140 mmol/L Normal 136-145 [facility] Comment on above: Performed By: #### L 500.2500, L100.0100 ####[facility] [address] [place], [address] Urea nitrogen [Mass/Vol] 24 mg/dL High 7-18 [facility] Comment on above: Performed By: #### L 500.2500, L100.0100 ####[facility] [address] [place], [address] Bedside Glucoseon 06-27-2024 FINGERSTICK GLU 88 mg/dL Normal 74-106 [facility] Comment on above: Result Comment: ADAL GEMENT OF PATIENT CARE PER NURSING PROTOCOL Performed By: #### L 501.080 ####[facility] [address] [place], [address] FINGERSTICK GLU 124 mg/dL High 74-106 [facility] Comment on above: Result Comment: ADAL GEMENT OF PATIENT CARE PER NURSING PROTOCOL Performed By: #### L 501.080 ####[facility] [address] [place], [address] CBC W/Diff, Automatedon - Absolute Lymph 1.74 X10 3/uL Normal 0.83-4.51 [facility] [facility] Comment on above: Performed By: #### L 500.2500, L100.0100 ####[facility] [address] [place], [address] Absolute Neut 3.3 X10 3/uL Normal 2.0-7.7 [facility] Comment on above: Performed By: #### L 500.2500, L100.0100 ####[facility] [address] [place], [address] Basophils/100 WBC (Bld) 0.5 % Normal 0-1 [facility] Comment on above: Performed By: #### L 500.2500, L100.0100 ####[facility] [address] [place], [address] Eosinophils/100 WBC (Bld) 4.9 % Normal 0-5 [facility] Comment on above: Performed By: #### L 500.2500, L100.0100 ####[facility] [address] [place], [address] Erythrocyte distribution width (RBC) [Ratio] 17.1 % High 11.6-14.6 [facility] Comment on above: Performed By: #### L 500.2500, L100.0100 ####[facility] [address] [place], [address] Hematocrit (Bld) [Volume fraction] 37.3 % Normal 37-47 [facility] Comment on above: Performed By: #### L 500.2500, L100.0100 ####[facility] [address] [place], [address] Hemoglobin (Bld) [Mass/Vol] 11.1 g/dL Low 12.0-15.0 [facility] Comment on above: Performed By: #### L 500.2500, L100.0100 ####[facility] [address] [place], [address] IG% 0.700 Normal 0.0-0.9 [facility] Comment on above: Result Comment: IG% - Immature Granulocytes (promyelocytes, myelocytes andmetamyelocytes) > 1% indicates that a LEFT SHIFT is Present. Performed By: #### L 500.2500, L100.0100 ####[facility] [address] [place], [address] Lymphocytes/100 WBC (Bld) 29.2 % Normal 19-41 [facility] Comment on above: Performed By: #### L 500.2500, L100.0100 ####[facility] [address] [place], [address] MCH (RBC) [Entitic mass] 25.8 pg Low 27.0-32.0 [facility] Comment on above: Performed By: #### L 500.2500, L100.0100 ####[facility] [address] [place], [address] MCHC (RBC) [Mass/Vol] 29.8 g/dL Low 32-36 [facility] Comment on above: Performed By: #### L 500.2500, L100.0100 ####[facility] [address] [place], [address] MCV (RBC) [Entitic vol] 86.7 fL Normal 81-99 [facility] Comment on above: Performed By: #### L 500.2500, L100.0100 ####[facility] [address] [place], [address] Monocytes/100 WBC (Bld) 9.4 % Normal 0-10 [facility] Comment on above: Performed By: #### L 500.2500, L100.0100 ####[facility] [address] [place], [address] Neutrophils/100 WBC (Bld) 55.3 % Normal 47-70 [facility] Comment on above: Performed By: #### L 500.2500, L100.0100 ####[facility] [address] [place], [address] Nucleated RBC (Bld) [#/Vol] 0 10*3/uL Normal 0-5 [facility] Comment on above: Performed By: #### L 500.2500, L100.0100 ####[facility] [address] [place], [address] Platelet mean volume (Bld) [Entitic vol] 10.5 fL Normal 6.2-12.0 [facility] Comment on above: Performed By: #### L 500.2500, L100.0100 ####[facility] [address] [place], [address] Platelets (Bld) [#/Vol] 272 10*3/uL Normal 150-450 [facility] Comment on above: Performed By: #### L 500.2500, L100.0100 ####[facility] [address] [place], [address] RBC (Bld) [#/Vol] 4.30 10*6/uL Normal 4.2-5.4 [facility] Comment on above: Performed By: #### L 500.2500, L100.0100 ####[facility] [address] [place], [address] RDW SD 53.7 fl High 35.1-43.9 [facility] Comment on above: Performed By: #### L 500.2500, L100.0100 ####[facility] [address] [place], [address] WBC (Bld) [#/Vol] 6.0 10*3/uL Normal 4.4-11.0 [facility] Comment on above: Performed By: #### L 500.2500, L100.0100 ####[facility] [address] [place], [address] Bedside Glucoseon 06-26-2024 FINGERSTICK GLU 107 mg/dL High 74-106 [facility] Comment on above: Result Comment: ADAL GEMENT OF PATIENT CARE PER NURSING PROTOCOL Performed By: #### L 501.080 ####[facility] [address] [place], [address] FINGERSTICK GLU 120 mg/dL High 74-106 [facility] Comment on above: Result Comment: ADAL GEMENT OF PATIENT CARE PER NURSING PROTOCOL Performed By: #### L 501.080 ####[facility] [address] [place], [address] FINGERSTICK GLU 66 mg/dL Low 74-106 [facility] Comment on above: Result Comment: ADAL GEMENT OF PATIENT CARE PER NURSING PROTOCOL Performed By: #### L 501.080 ####[facility] [address] [place], [address] FINGERSTICK GLU 181 mg/dL High 74-106 [facility] Comment on above: Result Comment: ADAL GEMENT OF PATIENT CARE PER NURSING PROTOCOL Performed By: #### L 501.080 ####[facility] [address] [place], [address] FINGERSTICK GLU 159 mg/dL High 74-106 [facility] Comment on above: Result Comment: ADAL GEMENT OF PATIENT CARE PER NURSING PROTOCOL Performed By: #### L 501.080 ####[facility] [address] [place], [address] Bedside Glucoseon 06-25-2024 FINGERSTICK GLU 87 mg/dL Normal 74-106 [facility] Comment on above: Result Comment: ADAL GEMENT OF PATIENT CARE PER NURSING PROTOCOL Performed By: #### L 501.080 ####[facility] [address] [place], [address] FINGERSTICK GLU 56 mg/dL Low 74-106 [facility] Comment on above: Result Comment: ADAL GEMENT OF PATIENT CARE PER NURSING PROTOCOL Performed By: #### L 501.080 ####[facility] [address] [place], [address] FINGERSTICK GLU 57 mg/dL Low 74-106 [facility] Comment on above: Result Comment: ADAL GEMENT OF PATIENT CARE PER NURSING PROTOCOL Performed By: #### L 501.080 ####[facility] [address] [place], [address] FINGERSTICK GLU 100 mg/dL Normal 74-106 [facility] Comment on above: Result Comment: ADAL GEMENT OF PATIENT CARE PER NURSING PROTOCOL Performed By: #### L 501.080 ####[facility] [address] [place], [address] FINGERSTICK GLU 127 mg/dL High 74-106 [facility] Comment on above: Result Comment: ADAL GEMENT OF PATIENT CARE PER NURSING PROTOCOL Performed By: #### L 501.080 ####[facility] [address] [place], [address] FINGERSTICK GLU 98 mg/dL Normal 74-106 [facility] Comment on above: Result Comment: ADAL GEMENT OF PATIENT CARE PER NURSING PROTOCOL Performed By: #### L 501.080 ####[facility] [address] [place], [address] Bedside Glucoseon 06-24-2024 FINGERSTICK GLU 90 mg/dL Normal 74-106 [facility] Comment on above: Result Comment: ADAL GEMENT OF PATIENT CARE PER NURSING PROTOCOL Performed By: #### L 501.080 ####[facility] [address] [place], [address] FINGERSTICK GLU 172 mg/dL High 74-106 [facility] Comment on above: Result Comment: ADAL GEMENT OF PATIENT CARE PER NURSING PROTOCOL Performed By: #### L 501.080 ####[facility] [address] [place], [address] FINGERSTICK GLU 147 mg/dL High 74-106 [facility] Comment on above: Result Comment: ADAL GEMENT OF PATIENT CARE PER NURSING PROTOCOL Performed By: #### L 501.080 ####[facility] [address] [place], [address] FINGERSTICK GLU 88 mg/dL Normal 74-106 [facility] Comment on above: Result Comment: ADAL GEMENT OF PATIENT CARE PER NURSING PROTOCOL Performed By: #### L 501.080 ####[facility] [address] [place], [address] FINGERSTICK GLU 59 mg/dL Low 74-106 [facility] Comment on above: Result Comment: ADAL GEMENT OF PATIENT CARE PER NURSING PROTOCOL Performed By: #### L 501.080 ####[facility] [address] [place], [address] Bedside Glucoseon 06-23-2024 FINGERSTICK GLU 129 mg/dL High [address] [place] [address] Comment on above: Result Comment: ADAL GEMENT OF PATIENT CARE PER NURSING PROTOCOL Performed By: #### L 501.080 ####[facility] [address] [place], [address] FINGERSTICK GLU 44 mg/dL Invalid Interpretation Code [address] [place] [address] Comment on above: Result Comment: [facility] k GivenRepeat TestMANAGEMENT OF PATIENT CARE PER NURSING PROTOCOL Performed By: #### L 501.080 ####[facility] [address] [place], [address] FINGERSTICK GLU 87 mg/dL Normal [address] [place] [address] Comment on above: Result Comment: ADAL GEMENT OF PATIENT CARE PER NURSING PROTOCOL Performed By: #### L 501.080 ####[facility] [address] [place], [address] FINGERSTICK GLU 110 mg/dL High [address] [place] [address] Comment on above: Result Comment: ADAL GEMENT OF PATIENT CARE PER NURSING PROTOCOL Performed By: #### L 501.080 ####[facility] [address] [place], [address] FINGERSTICK GLU 119 mg/dL High [address] [place] [address] Comment on above: Result Comment: ADAL GEMENT OF PATIENT CARE PER NURSING PROTOCOL Performed By: #### L 501.080 ####[facility] [address] [place], [address] FINGERSTICK GLU 61 mg/dL Low [address] [place] [address] Comment on above: Result Comment: ADAL GEMENT OF PATIENT CARE PER NURSING PROTOCOL Performed By: #### L 501.080 ####[facility] [address] [place], [address] COVID 19 AG RAPID (JESSICA Head)on 06-23-2024 SARS-CoV-2 (COVID-19) RNA JAYLIN+probe Ql (Unsp spec) Normal [facility] Comment on above: Performed By: #### M 100.505 ####[facility] [address] [place], [address] Basic Metabolic Profile (BMP )on 06-22-2024 BUN/CRE 33.1 RATIO High 10-20 [facility] Comment on above: Performed By: #### L 500.2500 ####[facility] [address] [place], [address] CA,Total 9.0 mg/dL Normal 8.5-10.1 [facility] Comment on above: Performed By: #### L 500.2500 ####[facility] [address] [place], [address] Chloride [Moles/Vol] 107 mmol/L Normal 98-107 [facility] Comment on above: Performed By: #### L 500.2500 ####[facility] [address] [place], [address] CO2 [Moles/Vol] 26.0 mmol/L Normal 21.0-32.0 [facility] Comment on above: Performed By: #### L 500.2500 ####[facility] [address] [place], [address] Creatinine [Mass/Vol] 1.42 mg/dL High 0.55-1.02 [facility] Comment on above: Result Comment: The validity of the calculated GFR GFRAA in patients over70 years has not been determined. Clinical correlation isessential. Performed By: #### L 500.2500 ####[facility] [address] [place], [address] ECRCL 29.70 ml/min Normal [facility] Comment on above: Performed By: #### L 500.2500 ####[facility] [address] [place], [address] EST GFR - AA 46 mL/min Low >60 [facility] Comment on above: Result Comment: Afri can [place] GFR Calc Performed By: #### L 500.2500 ####[facility] [address] [place], [address] GAP 6 Normal 5-15 [facility] Comment on above: Performed By: #### L 500.2500 ####[facility] [address] [place], [address] GFR/1.73 sq M.predicted among non-blacks MDRD (S/P/Bld) [Vol rate/Area] 38 mL/min/{1.73_m2} Low >60 [facility] Comment on above: Result Comment: Non- GFR Calc Performed By: #### L 500.2500 ####[facility] [address] [place], [address] Glucose [Mass/Vol] 207 mg/dL High 74-106 [facility] Comment on above: Result Comment: Gluc ose result greater than or equal to 200 mg/dLsuggests DIABETES MELLITUS per A.D.A. criteria. Performed By: #### L 500.2500 ####[facility] [address] [place], [address] Potassium [Moles/Vol] 4.1 mmol/L Normal 3.5-5.1 [facility] Comment on above: Performed By: #### L 500.2500 ####[facility] [address] [place], [address] Sodium [Moles/Vol] 139 mmol/L Normal 136-145 [facility] Comment on above: Performed By: #### L 500.2500 ####[facility] [address] [place], [address] Urea nitrogen [Mass/Vol] 47 mg/dL High 7-18 [facility] Comment on above: Performed By: #### L 500.2500 ####[facility] [address] [place], [address] BUN Normal 7-18 [facility] Comment on above: Result Comment: Canc elled via OM: Order cancelled - Patient discharged Performed By: #### L 100.0100, L500.2500 ####[facility] [address] [place], [address] BUN/CRE Normal 10-20 [facility] Comment on above: Result Comment: Canc elled via OM: Order cancelled - Patient discharged Performed By: #### L 100.0100, L500.2500 ####[facility] [address] [place], [address] CA,Total Normal 8.5-10.1 [facility] Comment on above: Result Comment: Canc elled via OM: Order cancelled - Patient discharged Performed By: #### L 100.0100, L500.2500 ####[facility] [address] [place], [address] CL Normal 98-107 [facility] Comment on above: Result Comment: Canc elled via OM: Order cancelled - Patient discharged Performed By: #### L 100.0100, L500.2500 ####[facility] [address] [place], [address] CO2 Normal 21.0-32.0 [facility] Comment on above: Result Comment: Canc elled via OM: Order cancelled - Patient discharged Performed By: #### L 100.0100, L500.2500 ####[facility] [address] [place], [address] CREAT,SERUM Normal 0.55-1.02 [facility] Comment on above: Result Comment: Canc elled via OM: Order cancelled - Patient discharged Performed By: #### L 100.0100, L500.2500 ####[facility] [address] [place], [address] EST GFR Normal >60 [facility] Comment on above: Result Comment: Canc elled via OM: Order cancelled - Patient discharged Performed By: #### L 100.0100, L500.2500 ####[facility] [address] [place], [address] EST GFR - AA Normal >60 [facility] Comment on above: Result Comment: Canc elled via OM: Order cancelled - Patient discharged Performed By: #### L 100.0100, L500.2500 ####[facility] [address] [place], [address] GAP Normal 5-15 [facility] Comment on above: Result Comment: Canc elled via OM: Order cancelled - Patient discharged Performed By: #### L 100.0100, L500.2500 ####[facility] [address] [place], [address] GLU Normal 74-106 [facility] Comment on above: Result Comment: Canc elled via OM: Order cancelled - Patient discharged Performed By: #### L 100.0100, L500.2500 ####[facility] [address] [place], [address] Potassium Normal 3.5-5.1 [facility] Comment on above: Result Comment: Canc elled via OM: Order cancelled - Patient discharged Performed By: #### L 100.0100, L500.2500 ####[facility] [address] [place], [address] Basic Metabolic Profile (BMP) Normal 136-145 [facility] Comment on above: Result Comment: Canc elled via OM: Order cancelled - Patient discharged Performed By: #### L 100.0100, L500.2500 ####[facility] [address] [place], [address] Bedside Glucoseon 06-22-2024 FINGERSTICK GLU 102 mg/dL Normal 74-106 [facility] Comment on above: Result Comment: ADAL GEMENT OF PATIENT CARE PER NURSING PROTOCOL Performed By: #### L 501.080 ####[facility] [address] [place], [address] FINGERSTICK GLU 126 mg/dL High 74-106 [facility] Comment on above: Result Comment: ADAL GEMENT OF PATIENT CARE PER NURSING PROTOCOL Performed By: #### L 501.080 ####[facility] [address] [place], [address] FINGERSTICK GLU 168 mg/dL High 74-106 [facility] Comment on above: Result Comment: ADAL GEMENT OF PATIENT CARE PER NURSING PROTOCOL Performed By: #### L 501.080 ####[facility] [address] [place], [address] FINGERSTICK GLU 196 mg/dL High 74-106 [facility] Comment on above: Result Comment: ADAL GEMENT OF PATIENT CARE PER NURSING PROTOCOL Performed By: #### L 501.080 ####[facility] [address] [place], [address] FINGERSTICK GLU 190 mg/dL High 74-106 [facility] Comment on above: Result Comment: ADAL GEMENT OF PATIENT CARE PER NURSING PROTOCOL Performed By: #### L 501.080 ####[facility] [address] [place], [address] FINGERSTICK GLU 173 mg/dL High -106 [facility] Comment on above: Result Comment: ADAL GEMENT OF PATIENT CARE PER NURSING PROTOCOL Performed By: #### L 501.080 ####[facility] [address] [place], [address] CBC W/Diff, Automatedon 12-0 -2023 Absolute Neut Normal 2.0-7.7 [facility] Comment on above: Result Comment: Canc elled via OM: Order cancelled - Patient discharged Performed By: #### L 100.0100, L500.2500 ####[facility] [address] [place], [address] HCT Normal 37-47 [facility] Comment on above: Result Comment: Canc elled via OM: Order cancelled - Patient discharged Performed By: #### L 100.0100, L500.2500 ####[facility] [address] [place], [address] HGB Normal 12.0-15.0 [facility] Comment on above: Result Comment: Canc elled via OM: Order cancelled - Patient discharged Performed By: #### L 100.0100, L500.2500 ####[facility] [address] [place], [address] MCH Normal 27.0-32.0 [facility] Comment on above: Result Comment: Canc elled via OM: Order cancelled - Patient discharged Performed By: #### L 100.0100, L500.2500 ####[facility] [address] [place], [address] MCHC Normal 32-36 [facility] Comment on above: Result Comment: Canc elled via OM: Order cancelled - Patient discharged Performed By: #### L 100.0100, L500.2500 ####[facility] [address] [place], [address] MCV Normal 81-99 [facility] Comment on above: Result Comment: Canc elled via OM: Order cancelled - Patient discharged Performed By: #### L 100.0100, L500.2500 ####[facility] [address] [place], [address] NEUT% Normal 47-70 [facility] Comment on above: Result Comment: Canc elled via OM: Order cancelled - Patient discharged Performed By: #### L 100.0100, L500.2500 ####[facility] [address] [place], [address] PLT Normal 150-450 [facility] Comment on above: Result Comment: Canc elled via OM: Order cancelled - Patient discharged Performed By: #### L 100.0100, L500.2500 ####[facility] [address] [place], [address] RBC Normal 4.2-5.4 [facility] Comment on above: Result Comment: Canc elled via OM: Order cancelled - Patient discharged Performed By: #### L 100.0100, L500.2500 ####[facility] [address] [place], [address] RDW CV Normal 11.6-14.6 [facility] Comment on above: Result Comment: Canc elled via OM: Order cancelled - Patient discharged Performed By: #### L 100.0100, L500.2500 ####[facility] [address] [place], [address] RDW SD Normal 35.1-43.9 [facility] Comment on above: Result Comment: Canc elled via OM: Order cancelled - Patient discharged Performed By: #### L 100.0100, L500.2500 ####[facility] [address] [place], [address] WBC Normal 4.4-11.0 [facility] Comment on above: Result Comment: Canc elled via OM: Order cancelled - Patient discharged Performed By: #### L 100.0100, L500.2500 ####[facility] [address] [place], [address] Basic Metabolic Profile (BMP )on 06-21-2024 BUN/CRE 37.0 RATIO High 10-20 [facility] Comment on above: Performed By: #### L 100.0100, L500.2500 ####[facility] [address] [place], [address] CA,Total 9.3 mg/dL Normal 8.5-10.1 [facility] Comment on above: Performed By: #### L 100.0100, L500.2500 ####[facility] [address] [place], [address] Chloride [Moles/Vol] 107 mmol/L Normal 98-107 [facility] Comment on above: Performed By: #### L 100.0100, L500.2500 ####[facility] [address] [place], [address] CO2 [Moles/Vol] 24.0 mmol/L Normal 21.0-32.0 [facility] Comment on above: Performed By: #### L 100.0100, L500.2500 ####[facility] [address] [place], [address] Creatinine [Mass/Vol] 0.95 mg/dL Normal 0.55-1.02 [facility] Comment on above: Result Comment: The validity of the calculated GFR GFRAA in patients over70 years has not been determined. Clinical correlation isessential. Performed By: #### L 100.0100, L500.2500 ####[facility] [address] [place], [address] ECRCL 44.39 ml/min Normal [facility] Comment on above: Performed By: #### L 100.0100, L500.2500 ####[facility] [address] [place], [address] EST GFR - AA 74 mL/min Normal >60 [facility] Comment on above: Result Comment: Afri can Citizen [place] GFR Calc Performed By: #### L 100.0100, L500.2500 ####[facility] [address] [place], [address] GAP 7 Normal 5-15 [facility] Comment on above: Performed By: #### L 100.0100, L500.2500 ####[facility] [address] [place], [address] GFR/1.73 sq M.predicted among non-blacks MDRD (S/P/Bld) [Vol rate/Area] 61 mL/min/{1.73_m2} Normal >60 [facility] Comment on above: Result Comment: Non- GFR Calc Performed By: #### L 100.0100, L500.2500 ####[facility] [address] [place], [address] Glucose [Mass/Vol] 336 mg/dL High 74-106 [facility] Comment on above: Result Comment: Gluc ose result greater than or equal to 200 mg/dLsuggests DIABETES MELLITUS per A.D.A. criteria. Performed By: #### L 100.0100, L500.2500 ####[facility] [address] [place], [address] Potassium [Moles/Vol] 3.4 mmol/L Low 3.5-5.1 [facility] Comment on above: Performed By: #### L 100.0100, L500.2500 ####[facility] [address] [place], [address] Sodium [Moles/Vol] 138 mmol/L Normal 136-145 [facility] Comment on above: Performed By: #### L 100.0100, L500.2500 ####[facility] [address] [place], [address] Urea nitrogen [Mass/Vol] 35 mg/dL High 7-18 [facility] Comment on above: Performed By: #### L 100.0100, L500.2500 ####[facility] [address] [place], [address] BUN Normal 7-18 [facility] Comment on above: Result Comment: Canc elled via OM: Order cancelled - Patient discharged Performed By: #### L 100.0100, L500.2500 ####[facility] [address] [place], [address] BUN/CRE Normal 10-20 [facility] Comment on above: Result Comment: Canc elled via OM: Order cancelled - Patient discharged Performed By: #### L 100.0100, L500.2500 ####[facility] [address] [place], [address] CA,Total Normal 8.5-10.1 [facility] Comment on above: Result Comment: Canc elled via OM: Order cancelled - Patient discharged Performed By: #### L 100.0100, L500.2500 ####[facility] [address] [place], [address] CL Normal 98-107 [facility] Comment on above: Result Comment: Canc elled via OM: Order cancelled - Patient discharged Performed By: #### L 100.0100, L500.2500 ####[facility] [address] [place], [address] CO2 Normal 21.0-32.0 [facility] Comment on above: Result Comment: Canc elled via OM: Order cancelled - Patient discharged Performed By: #### L 100.0100, L500.2500 ####[facility] [address] [place], [address] CREAT,SERUM Normal 0.55-1.02 [facility] Comment on above: Result Comment: Canc elled via OM: Order cancelled - Patient discharged Performed By: #### L 100.0100, L500.2500 ####[facility] [address] [place], [address] EST GFR Normal >60 [facility] Comment on above: Result Comment: Canc elled via OM: Order cancelled - Patient discharged Performed By: #### L 100.0100, L500.2500 ####[facility] [address] [place], [address] EST GFR - AA Normal >60 [facility] Comment on above: Result Comment: Canc elled via OM: Order cancelled - Patient discharged Performed By: #### L 100.0100, L500.2500 ####[facility] [address] [place], [address] GAP Normal 5-15 [facility] Comment on above: Result Comment: Canc elled via OM: Order cancelled - Patient discharged Performed By: #### L 100.0100, L500.2500 ####[facility] [address] [place], [address] GLU Normal 74-106 [facility] Comment on above: Result Comment: Canc elled via OM: Order cancelled - Patient discharged Performed By: #### L 100.0100, L500.2500 ####[facility] [address] [place], [address] Potassium Normal 3.5-5.1 [facility] Comment on above: Result Comment: Canc elled via OM: Order cancelled - Patient discharged Performed By: #### L 100.0100, L500.2500 ####[facility] [address] [place], [address] Basic Metabolic Profile (BMP) Normal 136-145 [facility] Comment on above: Result Comment: Canc elled via OM: Order cancelled - Patient discharged Performed By: #### L 100.0100, L500.2500 ####[facility] [address] [place], [address] Bedside Glucoseon 06-21-2024 FINGERSTICK GLU 84 mg/dL Normal 74-106 [facility] Comment on above: Result Comment: ADAL GEMENT OF PATIENT CARE PER NURSING PROTOCOL Performed By: #### L 501.080 ####[facility] [address] [place], [address] FINGERSTICK GLU 205 mg/dL High [address] [place] [address] Comment on above: Result Comment: ADAL GEMENT OF PATIENT CARE PER NURSING PROTOCOL Performed By: #### L 501.080 ####[facility] [address] [place], [address] FINGERSTICK GLU 436 mg/dL High [address] [place] [address] Comment on above: Result Comment: ADAL GEMENT OF PATIENT CARE PER NURSING PROTOCOL Performed By: #### L 501.080 ####[facility] [address] [place], [address] FINGERSTICK GLU 464 mg/dL Invalid Interpretation Code [address] [place] [address] Comment on above: Result Comment: Dr Prisca griffith FollowedMANAGEMENT OF PATIENT CARE PER NURSING PROTOCOL Performed By: #### L 501.080 ####[facility] [address] [place], [address] FINGERSTICK GLU 303 mg/dL High [address] [place] [address] Comment on above: Result Comment: ADAL GEMENT OF PATIENT CARE PER NURSING PROTOCOL Performed By: #### L 501.080 ####[facility] [address] [place], [address] CBC W/Diff, Automatedon 12-0 Absolute Lymph 1.03 X10 3/uL Normal 0.83-4.51 [facility] Comment on above: Performed By: #### L 100.0100, L500.2500 ####[facility] [address] [place], [address] Absolute Neut 3.7 X10 3/uL Normal 2.0-7.7 [facility] Comment on above: Performed By: #### L 100.0100, L500.2500 ####[facility] [address] [place], [address] Basophils/100 WBC (Bld) 0.5 % Normal 0-1 [facility] Comment on above: Performed By: #### L 100.0100, L500.2500 ####[facility] [address] [place], [address] Eosinophils/100 WBC (Bld) 4.3 % Normal 0-5 [facility] Comment on above: Performed By: #### L 100.0100, L500.2500 ####[facility] [address] [place], [address] Erythrocyte distribution width (RBC) [Ratio] 16.3 % High 11.6-14.6 [facility] Comment on above: Performed By: #### L 100.0100, L500.2500 ####[facility] [address] [place], [address] Hematocrit (Bld) [Volume fraction] 37.0 % Normal 37-47 [facility] Comment on above: Performed By: #### L 100.0100, L500.2500 ####[facility] [address] [place], [address] Hemoglobin (Bld) [Mass/Vol] 11.3 g/dL Low 12.0-15.0 [facility] Comment on above: Performed By: #### L 100.0100, L500.2500 ####[facility] [address] [place], [address] IG% 0.400 Normal 0.0-0.9 [facility] Comment on above: Result Comment: IG% - Immature Granulocytes (promyelocytes, myelocytes andmetamyelocytes) > 1% indicates that a LEFT SHIFT is Present. Performed By: #### L 100.0100, L500.2500 ####[facility] [address] [place], [address] Lymphocytes/100 WBC (Bld) 18.6 % Low 19-41 [facility] Comment on above: Performed By: #### L 100.0100, L500.2500 ####[facility] [address] [place], [address] MCH (RBC) [Entitic mass] 25.6 pg Low 27.0-32.0 [facility] Comment on above: Performed By: #### L 100.0100, L500.2500 ####[facility] [address] [place], [address] MCHC (RBC) [Mass/Vol] 30.5 g/dL Low 32-36 [facility] Comment on above: Performed By: #### L 100.0100, L500.2500 ####[facility] [address] [place], [address] MCV (RBC) [Entitic vol] 83.9 fL Normal 81-99 [facility] Comment on above: Performed By: #### L 100.0100, L500.2500 ####[facility] [address] [place], [address] Monocytes/100 WBC (Bld) 8.5 % Normal 0-10 [facility] Comment on above: Performed By: #### L 100.0100, L500.2500 ####[facility] [address] [place], [address] Neutrophils/100 WBC (Bld) 67.7 % Normal 47-70 [facility] Comment on above: Performed By: #### L 100.0100, L500.2500 ####[facility] [address] [place], [address] Nucleated RBC (Bld) [#/Vol] 0 10*3/uL Normal 0-5 [facility] Comment on above: Performed By: #### L 100.0100, L500.2500 ####[facility] [address] [place], [address] Platelet mean volume (Bld) [Entitic vol] 10.9 fL Normal 6.2-12.0 [facility] Comment on above: Performed By: #### L 100.0100, L500.2500 ####[facility] [address] [place], [address] Platelets (Bld) [#/Vol] 224 10*3/uL Normal 150-450 [facility] Comment on above: Performed By: #### L 100.0100, L500.2500 ####[facility] [address] [place], [address] RBC (Bld) [#/Vol] 4.41 10*6/uL Normal 4.2-5.4 [facility] Comment on above: Performed By: #### L 100.0100, L500.2500 ####[facility] [address] [place], [address] RDW SD 50.3 fl High 35.1-43.9 [facility] Comment on above: Performed By: #### L 100.0100, L500.2500 ####[facility] [address] [place], [address] WBC (Bld) [#/Vol] 5.5 10*3/uL Normal 4.4-11.0 [facility] Comment on above: Performed By: #### L 100.0100, L500.2500 ####[facility] [address] [place], [address] Absolute Neut Normal 2.0-7.7 [facility] Comment on above: Result Comment: Canc elled via OM: Order cancelled - Patient discharged Performed By: #### L 100.0100, L500.2500 ####[facility] [address] [place], [address] HCT Normal 37-47 [facility] Comment on above: Result Comment: Canc elled via OM: Order cancelled - Patient discharged Performed By: #### L 100.0100, L500.2500 ####[facility] [address] [place], [address] HGB Normal 12.0-15.0 [facility] Comment on above: Result Comment: Canc elled via OM: Order cancelled - Patient discharged Performed By: #### L 100.0100, L500.2500 ####[facility] [address] [place], [address] MCH Normal 27.0-32.0 [facility] Comment on above: Result Comment: Canc elled via OM: Order cancelled - Patient discharged Performed By: #### L 100.0100, L500.2500 ####[facility] [address] [place], [address] MCHC Normal 32-36 [facility] Comment on above: Result Comment: Canc elled via OM: Order cancelled - Patient discharged Performed By: #### L 100.0100, L500.2500 ####[facility] [address] [place], [address] MCV Normal 81-99 [facility] Comment on above: Result Comment: Canc elled via OM: Order cancelled - Patient discharged Performed By: #### L 100.0100, L500.2500 ####[facility] [address] [place], [address] NEUT% Normal 47-70 [facility] Comment on above: Result Comment: Canc elled via OM: Order cancelled - Patient discharged Performed By: #### L 100.0100, L500.2500 ####[facility] [address] [place], [address] PLT Normal 150-450 [facility] Comment on above: Result Comment: Canc elled via OM: Order cancelled - Patient discharged Performed By: #### L 100.0100, L500.2500 ####[facility] [address] [place], [address] RBC Normal 4.2-5.4 [facility] Comment on above: Result Comment: Canc elled via OM: Order cancelled - Patient discharged Performed By: #### L 100.0100, L500.2500 ####[facility] [address] [place], [address] RDW CV Normal 11.6-14.6 [facility] Comment on above: Result Comment: Canc elled via OM: Order cancelled - Patient discharged Performed By: #### L 100.0100, L500.2500 ####[facility] [address] [place], [address] RDW SD Normal 35.1-43.9 [facility] Comment on above: Result Comment: Canc elled via OM: Order cancelled - Patient discharged Performed By: #### L 100.0100, L500.2500 ####[facility] [address] [place], [address] WBC Normal 4.4-11.0 [facility] Comment on above: Result Comment: Canc elled via OM: Order cancelled - Patient discharged Performed By: #### L 100.0100, L500.2500 ####[facility] [address] [place], [address] Basic Metabolic Profile (BMP )on 06-20-2024 BUN/CRE 38.0 RATIO High 10-20 [facility] Comment on above: Performed By: #### L 500.2500, L100.0100 ####[facility] [address] [place], [address] CA,Total 9.4 mg/dL Normal 8.5-10.1 [facility] Comment on above: Performed By: #### L 500.2500, L100.0100 ####[facility] [address] [place], [address] Chloride [Moles/Vol] 107 mmol/L Normal 98-107 [facility] Comment on above: Performed By: #### L 500.2500, L100.0100 ####[facility] [address] [place], [address] CO2 [Moles/Vol] 24.0 mmol/L Normal 21.0-32.0 [facility] Comment on above: Performed By: #### L 500.2500, L100.0100 ####[facility] [address] [place], [address] Creatinine [Mass/Vol] 1.21 mg/dL High 0.55-1.02 [facility] Comment on above: Result Comment: The validity of the calculated GFR GFRAA in patients over70 years has not been determined. Clinical correlation isessential. Performed By: #### L 500.2500, L100.0100 ####[facility] [address] [place], [address] ECRCL 37.86 ml/min Normal [facility] Comment on above: Performed By: #### L 500.2500, L100.0100 ####[facility] [address] [place], [address] EST GFR - AA 56 mL/min Low >60 [facility] Comment on above: Result Comment: Afri can [place] GFR Calc Performed By: #### L 500.2500, L100.0100 ####[facility] [address] [place], [address] GAP 8 Normal 5-15 [facility] Comment on above: Performed By: #### L 500.2500, L100.0100 ####[facility] [address] [place], [address] GFR/1.73 sq M.predicted among non-blacks MDRD (S/P/Bld) [Vol rate/Area] 46 mL/min/{1.73_m2} Low >60 [facility] Comment on above: Result Comment: Non- GFR Calc Performed By: #### L 500.2500, L100.0100 ####[facility] [address] [place], [address] Glucose [Mass/Vol] 228 mg/dL High 74-106 [facility] Comment on above: Result Comment: Gluc ose result greater than or equal to 200 mg/dLsuggests DIABETES MELLITUS per A.D.A. criteria. Performed By: #### L 500.2500, L100.0100 ####[facility] [address] [place], [address] Potassium [Moles/Vol] 3.1 mmol/L Low 3.5-5.1 [facility] Comment on above: Performed By: #### L 500.2500, L100.0100 ####[facility] [address] [place], [address] Sodium [Moles/Vol] 138 mmol/L Normal 136-145 [facility] Comment on above: Performed By: #### L 500.2500, L100.0100 ####[facility] [address] [place], [address] Urea nitrogen [Mass/Vol] 46 mg/dL High 7-18 [facility] Comment on above: Performed By: #### L 500.2500, L100.0100 ####[facility] [address] [place], [address] Bedside Glucoseon 06-20-2024 FINGERSTICK GLU 270 mg/dL High 74-106 [facility] Comment on above: Result Comment: ADAL GOODEN OF PATIENT CARE PER NURSING PROTOCOL Performed By: #### L 501.080 ####[facility] [address] [place], [address] FINGERSTICK GLU 328 mg/dL High 74-106 [facility] Comment on above: Result Comment: ADAL GEMENT OF PATIENT CARE PER NURSING PROTOCOL Performed By: #### L 501.080 ####[facility] [address] [place], [address] FINGERSTICK GLU 350 mg/dL High 74-106 [facility] Comment on above: Result Comment: ADAL GEMENT OF PATIENT CARE PER NURSING PROTOCOL Performed By: #### L 501.080 ####[facility] [address] [place], [address] FINGERSTICK GLU 230 mg/dL High 74-106 [facility] Comment on above: Result Comment: ADAL GEMENT OF PATIENT CARE PER NURSING PROTOCOL Performed By: #### L 501.080 ####[facility] [address] [place], [address] CBC W/Diff, Automatedon 12-0 6-4 Absolute Lymph 1.50 X10 3/uL Normal 0.83-4.51 [facility] Comment on above: Performed By: #### L 500.2500, L100.0100 ####[facility] [address] [place], [address] Absolute Neut 4.1 X10 3/uL Normal 2.0-7.7 [facility] Comment on above: Performed By: #### L 500.2500, L100.0100 ####[facility] [address] [place], [address] Basophils/100 WBC (Bld) 0.6 % Normal 0-1 [facility] Comment on above: Performed By: #### L 500.2500, L100.0100 ####[facility] [address] [place], [address] Eosinophils/100 WBC (Bld) 3.1 % Normal 0-5 [facility] Comment on above: Performed By: #### L 500.2500, L100.0100 ####[facility] [address] [place], [address] Erythrocyte distribution width (RBC) [Ratio] 16.7 % High 11.6-14.6 [facility] Comment on above: Performed By: #### L 500.2500, L100.0100 ####[facility] [address] [place], [address] Hematocrit (Bld) [Volume fraction] 39.3 % Normal 37-47 [facility] Comment on above: Performed By: #### L 500.2500, L100.0100 ####[facility] [address] [place], [address] Hemoglobin (Bld) [Mass/Vol] 12.1 g/dL Normal 12.0-15.0 [facility] Comment on above: Performed By: #### L 500.2500, L100.0100 ####[facility] [address] [place], [address] IG% 0.500 Normal 0.0-0.9 [facility] Comment on above: Result Comment: IG% - Immature Granulocytes (promyelocytes, myelocytes andmetamyelocytes) > 1% indicates that a LEFT SHIFT is Present. Performed By: #### L 500.2500, L100.0100 ####[facility] [address] [place], [address] Lymphocytes/100 WBC (Bld) 23.1 % Normal 19-41 [facility] Comment on above: Performed By: #### L 500.2500, L100.0100 ####[facility] [address] [place], [address] MCH (RBC) [Entitic mass] 26.2 pg Low 27.0-32.0 [facility] Comment on above: Performed By: #### L 500.2500, L100.0100 ####[facility] [address] [place], [address] MCHC (RBC) [Mass/Vol] 30.8 g/dL Low 32-36 [facility] Comment on above: Performed By: #### L 500.2500, L100.0100 ####[facility] [address] [place], [address] MCV (RBC) [Entitic vol] 85.2 fL Normal 81-99 [facility] Comment on above: Performed By: #### L 500.2500, L100.0100 ####[facility] [address] [place], [address] Monocytes/100 WBC (Bld) 9.0 % Normal 0-10 [facility] Comment on above: Performed By: #### L 500.2500, L100.0100 ####[facility] [address] [place], [address] Neutrophils/100 WBC (Bld) 63.7 % Normal 47-70 [facility] Comment on above: Performed By: #### L 500.2500, L100.0100 ####[facility] [address] [place], [address] Nucleated RBC (Bld) [#/Vol] 0 10*3/uL Normal 0-5 [facility] Comment on above: Performed By: #### L 500.2500, L100.0100 ####[facility] [address] [place], [address] Platelet mean volume (Bld) [Entitic vol] 10.9 fL Normal 6.2-12.0 [facility] Comment on above: Performed By: #### L 500.2500, L100.0100 ####[facility] [address] [place], [address] Platelets (Bld) [#/Vol] 196 10*3/uL Normal 150-450 [facility] Comment on above: Performed By: #### L 500.2500, L100.0100 ####[facility] [address] [place], [address] RBC (Bld) [#/Vol] 4.61 10*6/uL Normal 4.2-5.4 [facility] Comment on above: Performed By: #### L 500.2500, L100.0100 ####[facility] [address] [place], [address] RDW SD 51.9 fl High 35.1-43.9 [facility] Comment on above: Performed By: #### L 500.2500, L100.0100 ####[facility] [address] [place], [address] WBC (Bld) [#/Vol] 6.5 10*3/uL Normal 4.4-11.0 [facility] Comment on above: Performed By: #### L 500.2500, L100.0100 ####[facility] [address] [place], [address] Urine Cultureon 06-20-2024 URC Normal [facility] Comment on above: Performed By: #### M 100.2200 ####[facility] [address] [place], [address] Basic Metabolic Profile (BMP )on 06-19-2024 BUN/CRE 27.9 RATIO High 10-20 [facility] Comment on above: Performed By: #### L 500.2500, L501.5200, L100.0100, L501.2300 ####[facility] [address] [place], [address] CA,Total 9.6 mg/dL Normal 8.5-10.1 [facility] Comment on above: Performed By: #### L 500.2500, L501.5200, L100.0100, L501.2300 ####[facility] [address] [place], [address] Chloride [Moles/Vol] 108 mmol/L High 98-107 [facility] Comment on above: Performed By: #### L 500.2500, L501.5200, L100.0100, L501.2300 ####[facility] [address] [place], [address] CO2 [Moles/Vol] 22.0 mmol/L Normal 21.0-32.0 [facility] Comment on above: Performed By: #### L 500.2500, L501.5200, L100.0100, L501.2300 ####[facility] [address] [place], [address] Creatinine [Mass/Vol] 1.54 mg/dL High 0.55-1.02 [facility] Comment on above: Result Comment: The validity of the calculated GFR GFRAA in patients over70 years has not been determined. Clinical correlation isessential. Performed By: #### L 500.2500, L501.5200, L100.0100, L501.2300 ####[facility] [address] [place], [address] ECRCL 29.75 ml/min Normal [facility] Comment on above: Performed By: #### L 500.2500, L501.5200, L100.0100, L501.2300 ####[facility] [address] [place], [address] EST GFR - AA 42 mL/min Low >60 [facility] Comment on above: Result Comment: Afri can [place] GFR Calc Performed By: #### L 500.2500, L501.5200, L100.0100, L501.2300 ####[facility] [address] [place], [address] GAP 10 Normal 5-15 [facility] Comment on above: Performed By: #### L 500.2500, L501.5200, L100.0100, L501.2300 ####[facility] [address] [place], [address] GFR/1.73 sq M.predicted among non-blacks MDRD (S/P/Bld) [Vol rate/Area] 35 mL/min/{1.73_m2} Low >60 [facility] Comment on above: Result Comment: Non- GFR Calc Performed By: #### L 500.2500, L501.5200, L100.0100, L501.2300 ####[facility] [address] [place], [address] Glucose [Mass/Vol] 227 mg/dL High 74-106 [facility] Comment on above: Result Comment: Gluc ose result greater than or equal to 200 mg/dLsuggests DIABETES MELLITUS per A.D.A. criteria. Performed By: #### L 500.2500, L501.5200, L100.0100, L501.2300 ####[facility] [address] [place], [address] Potassium [Moles/Vol] 3.3 mmol/L Low 3.5-5.1 [facility] Comment on above: Performed By: #### L 500.2500, L501.5200, L100.0100, L501.2300 ####[facility] [address] [place], [address] Sodium [Moles/Vol] 139 mmol/L Normal 136-145 [facility] Comment on above: Performed By: #### L 500.2500, L501.5200, L100.0100, L501.2300 ####[facility] [address] [place], [address] Urea nitrogen [Mass/Vol] 43 mg/dL High 7-18 [facility] Comment on above: Performed By: #### L 500.2500, L501.5200, L100.0100, L501.2300 ####[facility] [address] [place], [address] Bedside Glucoseon 06-19-2024 FINGERSTICK GLU 241 mg/dL High 74-106 [facility] Comment on above: Result Comment: ADAL GEMENT OF PATIENT CARE PER NURSING PROTOCOL Performed By: #### L 501.080 ####[facility] [address] [place], [address] FINGERSTICK GLU 233 mg/dL High [facility] [facility]106 [facility] Comment on above: Result Comment: ADAL GEMENT OF PATIENT CARE PER NURSING PROTOCOL Performed By: #### L 501.080 ####[facility] [address] [place], [address] FINGERSTICK GLU 281 mg/dL High [facility]106 [facility] Comment on above: Result Comment: ADAL GEMENT OF PATIENT CARE PER NURSING PROTOCOL Performed By: #### L 501.080 ####[facility] [address] [place], [address] FINGERSTICK GLU 255 mg/dL High [facility]106 [facility] Comment on above: Result Comment: ADAL GEMENT OF PATIENT CARE PER NURSING PROTOCOL Performed By: #### L 501.080 ####[facility] [address] [place], [address] CBC W/Diff, Automatedon Absolute Lymph 1.50 X10 3/uL Normal 0.83-4.51 [facility] Comment on above: Performed By: #### L 500.2500, L501.5200, L100.0100, L501.2300 ####[facility] [address] [place], [address] Absolute Neut 7.0 X10 3/uL Normal 2.0-7.7 [facility] Comment on above: Performed By: #### L 500.2500, L501.5200, L100.0100, L501.2300 ####[facility] [address] [place], [address] Basophils/100 WBC (Bld) 0.4 % Normal 0-1 [facility] Comment on above: Performed By: #### L 500.2500, L501.5200, L100.0100, L501.2300 ####[facility] [address] [place], [address] Eosinophils/100 WBC (Bld) 0.3 % Normal 0-5 [facility] Comment on above: Performed By: #### L 500.2500, L501.5200, L100.0100, L501.2300 ####[facility] [address] [place], [address] Erythrocyte distribution width (RBC) [Ratio] 16.7 % High 11.6-14.6 [facility] Comment on above: Performed By: #### L 500.2500, L501.5200, L100.0100, L501.2300 ####[facility] [address] [place], [address] Hematocrit (Bld) [Volume fraction] 37.9 % Normal 37-47 [facility] Comment on above: Performed By: #### L 500.2500, L501.5200, L100.0100, L501.2300 ####[facility] [address] [place], [address] Hemoglobin (Bld) [Mass/Vol] 11.9 g/dL Low 12.0-15.0 [facility] Comment on above: Performed By: #### L 500.2500, L501.5200, L100.0100, L501.2300 ####[facility] [address] [place], [address] IG% 0.400 Normal 0.0-0.9 [facility] Comment on above: Result Comment: IG% - Immature Granulocytes (promyelocytes, myelocytes andmetamyelocytes) > 1% indicates that a LEFT SHIFT is Present. Performed By: #### L 500.2500, L501.5200, L100.0100, L501.2300 ####[facility] [address] [place], [address] Lymphocytes/100 WBC (Bld) 16.0 % Low 19-41 [facility] Comment on above: Performed By: #### L 500.2500, L501.5200, L100.0100, L501.2300 ####[facility] [address] [place], [address] MCH (RBC) [Entitic mass] 26.6 pg Low 27.0-32.0 [facility] Comment on above: Performed By: #### L 500.2500, L501.5200, L100.0100, L501.2300 ####[facility] [address] [place], [address] MCHC (RBC) [Mass/Vol] 31.4 g/dL Low 32-36 [facility] Comment on above: Performed By: #### L 500.2500, L501.5200, L100.0100, L501.2300 ####[facility] [address] [place], [address] MCV (RBC) [Entitic vol] 84.8 fL Normal 81-99 [facility] Comment on above: Performed By: #### L 500.2500, L501.5200, L100.0100, L501.2300 ####[facility] [address] [place], [address] Monocytes/100 WBC (Bld) 8.2 % Normal 0-10 [facility] Comment on above: Performed By: #### L 500.2500, L501.5200, L100.0100, L501.2300 ####[facility] [address] [place], [address] Neutrophils/100 WBC (Bld) 74.7 % High 47-70 [facility] Comment on above: Performed By: #### L 500.2500, L501.5200, L100.0100, L501.2300 ####[facility] [address] [place], [address] Nucleated RBC (Bld) [#/Vol] 0 10*3/uL Normal 0-5 [facility] Comment on above: Performed By: #### L 500.2500, L501.5200, L100.0100, L501.2300 ####[facility] [address] [place], [address] Platelet mean volume (Bld) [Entitic vol] 10.7 fL Normal 6.2-12.0 [facility] Comment on above: Performed By: #### L 500.2500, L501.5200, L100.0100, L501.2300 ####[facility] [address] [place], [address] Platelets (Bld) [#/Vol] 217 10*3/uL Normal 150-450 [facility] Comment on above: Performed By: #### L 500.2500, L501.5200, L100.0100, L501.2300 ####[facility] [address] [place], [address] RBC (Bld) [#/Vol] 4.47 10*6/uL Normal 4.2-5.4 [facility] Comment on above: Performed By: #### L 500.2500, L501.5200, L100.0100, L501.2300 ####[facility] [address] [place], [address] RDW SD 52.4 fl High 35.1-43.9 [facility] Comment on above: Performed By: #### L 500.2500, L501.5200, L100.0100, L501.2300 ####[facility] [address] [place], [address] WBC (Bld) [#/Vol] 9.4 10*3/uL Normal 4.4-11.0 [facility] Comment on above: Performed By: #### L 500.2500, L501.5200, L100.0100, L501.2300 ####[facility] [address] [place], [address] Magnesiumon 06-19-2024 Magnesium [Mass/Vol] 2.0 mg/dL Normal 1.6-2.6 [facility] Comment on above: Performed By: #### L 500.2500, L501.5200, L100.0100, L501.2300 ####[facility] [address] [place], [address] Phosphoruson 06-19-2024 Phosphate [Mass/Vol] 2.4 mg/dL Low 2.5-4.9 [facility] Comment on above: Performed By: #### L 500.2500, L501.5200, L100.0100, L501.2300 ####[facility] [address] [place], [address] Bedside Glucoseon 06-18-2024 FINGERSTICK GLU 245 mg/dL High 74-106 [facility] Comment on above: Result Comment: ADAL GEMENT OF PATIENT CARE PER NURSING PROTOCOL Performed By: #### L 501.080 ####[facility] [address] [place], [address] FINGERSTICK GLU 309 mg/dL High 74-106 [facility] Comment on above: Result Comment: ADAL GEMENT OF PATIENT CARE PER NURSING PROTOCOL Performed By: #### L 501.080 ####[facility] [address], [address] FINGERSTICK GLU 234 mg/dL High 74-106 [facility] Comment on above: Result Comment: ADAL GEMENT OF PATIENT CARE PER NURSING PROTOCOL Performed By: #### L 501.080 ####[facility] [address] [place], [address] FINGERSTICK GLU 408 mg/dL High 74-106 [facility] Comment on above: Result Comment: ADAL GEMENT OF PATIENT CARE PER NURSING PROTOCOL Performed By: #### L 501.080 ####[facility] [address] [place], [address] CBC W/Diff, Automatedon 12-0 -2023 Absolute Lymph 0.81 X10 3/uL Low 0.83-4.51 [facility] Comment on above: Performed By: #### L 500.4050, L100.0100, L501.9985, L501.9520, L501.2300 ####[facility] [address] [place], [address] Absolute Neut 13.1 X10 3/uL High 2.0-7.7 [facility] Comment on above: Performed By: #### L 500.4050, L100.0100, L501.9985, L501.9520, L501.2300 ####[facility] [address] [place], [address] Basophils/100 WBC (Bld) 0.2 % Normal 0-1 [facility] Comment on above: Performed By: #### L 500.4050, L100.0100, L501.9985, L501.9520, L501.2300 ####[facility] [address] [place], [address] Eosinophils/100 WBC (Bld) 0.0 % Normal 0-5 [facility] Comment on above: Performed By: #### L 500.4050, L100.0100, L501.9985, L501.9520, L501.2300 ####[facility] [address] [place], [address] Erythrocyte distribution width (RBC) [Ratio] 16.4 % High 11.6-14.6 [facility] Comment on above: Performed By: #### L 500.4050, L100.0100, L501.9985, L501.9520, L501.2300 ####[facility] [address] [place], [address] Hematocrit (Bld) [Volume fraction] 41.4 % Normal 37-47 [facility] Comment on above: Performed By: #### L 500.4050, L100.0100, L501.9985, L501.9520, L501.2300 ####[facility] [address] [place], [address] Hemoglobin (Bld) [Mass/Vol] 12.8 g/dL Normal 12.0-15.0 [facility] Comment on above: Performed By: #### L 500.4050, L100.0100, L501.9985, L501.9520, L501.2300 ####[facility] [address] [place], [address] IG% 0.500 Normal 0.0-0.9 [facility] Comment on above: Result Comment: IG% - Immature Granulocytes (promyelocytes, myelocytes andmetamyelocytes) > 1% indicates that a LEFT SHIFT is Present. Performed By: #### L 500.4050, L100.0100, L501.9985, L501.9520, L501.2300 ####[facility] [address] [place], [address] Lymphocytes/100 WBC (Bld) 5.5 % Low 19-41 [facility] Comment on above: Performed By: #### L 500.4050, L100.0100, L501.9985, L501.9520, L501.2300 ####[facility] [address] [place], [address] MCH (RBC) [Entitic mass] 26.1 pg Low 27.0-32.0 [facility] Comment on above: Performed By: #### L 500.4050, L100.0100, L501.9985, L501.9520, L501.2300 ####[facility] [address] [place], [address] MCHC (RBC) [Mass/Vol] 30.9 g/dL Low 32-36 [facility] Comment on above: Performed By: #### L 500.4050, L100.0100, L501.9985, L501.9520, L501.2300 ####[facility] [address] [place], [address] MCV (RBC) [Entitic vol] 84.5 fL Normal 81-99 [facility] Comment on above: Performed By: #### L 500.4050, L100.0100, L501.9985, L501.9520, L501.2300 ####[facility] [address] [place], [address] Monocytes/100 WBC (Bld) 5.2 % Normal 0-10 [facility] Comment on above: Performed By: #### L 500.4050, L100.0100, L501.9985, L501.9520, L501.2300 ####[facility] [address] [place], [address] Neutrophils/100 WBC (Bld) 88.6 % High 47-70 [facility] Comment on above: Performed By: #### L 500.4050, L100.0100, L501.9985, L501.9520, L501.2300 ####[facility] [address] [place], [address] Nucleated RBC (Bld) [#/Vol] 0 10*3/uL Normal 0-5 [facility] Comment on above: Performed By: #### L 500.4050, L100.0100, L501.9985, L501.9520, L501.2300 ####[facility] [address] [place], [address] Platelet mean volume (Bld) [Entitic vol] 11.0 fL Normal 6.2-12.0 [facility] Comment on above: Performed By: #### L 500.4050, L100.0100, L501.9985, L501.9520, L501.2300 ####[facility] [address] [place], [address] Platelets (Bld) [#/Vol] 254 10*3/uL Normal 150-450 [facility] Comment on above: Performed By: #### L 500.4050, L100.0100, L501.9985, L501.9520, L501.2300 ####[facility] [address] [place], [address] RBC (Bld) [#/Vol] 4.90 10*6/uL Normal 4.2-5.4 [facility] Comment on above: Performed By: #### L 500.4050, L100.0100, L501.9985, L501.9520, L501.2300 ####[facility] [address] [place], [address] RDW SD 51.1 fl High 35.1-43.9 [facility] Comment on above: Performed By: #### L 500.4050, L100.0100, L501.9985, L501.9520, L501.2300 ####[facility] [address] [place], [address] WBC (Bld) [#/Vol] 14.8 10*3/uL High 4.4-11.0 [facility] Comment on above: Performed By: #### L 500.4050, L100.0100, L501.9985, L501.9520, L501.2300 ####[facility] [address] [place], [address] Comprehensive Metabolic Prof ilon 06-18-2024 Albumin [Mass/Vol] 3.4 g/dL Normal 3.2-5.0 [facility] Comment on above: Performed By: #### L 500.4050, L100.0100, L501.9985, L501.9520, L501.2300 ####[facility] [address] [place], [address] Albumin/Globulin [Mass ratio] 0.9 {ratio} Normal 0.9-2.4 [facility] Comment on above: Performed By: #### L 500.4050, L100.0100, L501.9985, L501.9520, L501.2300 ####[facility] [address] [place], [address] ALK P 128 U/L High 45-117 [facility] Comment on above: Performed By: #### L 500.4050, L100.0100, L501.9985, L501.9520, L501.2300 ####[facility] [address] [place], [address] ALT [Catalytic activity/Vol] 23 U/L Normal 13-56 [facility] Comment on above: Performed By: #### L 500.4050, L100.0100, L501.9985, L501.9520, L501.2300 ####[facility] [address] [place], [address] AST [Catalytic activity/Vol] 35 U/L Normal 15-37 [facility] Comment on above: Performed By: #### L 500.4050, L100.0100, L501.9985, L501.9520, L501.2300 ####[facility] [address] [place], [address] Bilirubin [Mass/Vol] 0.80 mg/dL Normal 0.20-1.00 [facility] Comment on above: Result Comment: For patients on eltrombopag therapy, use of Dimension [place] TBIL is not recommended. Performed By: #### L 500.4050, L100.0100, L501.9985, L501.9520, L501.2300 ####[facility] [address] [place], [address] BUN/CRE 23.2 RATIO High 10-20 [facility] Comment on above: Performed By: #### L 500.4050, L100.0100, L501.9985, L501.9520, L501.2300 ####[facility] [address] [place], [address] CA,Total 9.6 mg/dL Normal 8.5-10.1 [facility] Comment on above: Performed By: #### L 500.4050, L100.0100, L501.9985, L501.9520, L501.2300 ####[facility] [address] [place], [address] Chloride [Moles/Vol] 108 mmol/L High 98-107 [facility] Comment on above: Performed By: #### L 500.4050, L100.0100, L501.9985, L501.9520, L501.2300 ####[facility] [address] [place], [address] CO2 [Moles/Vol] 24.0 mmol/L Normal 21.0-32.0 [facility] Comment on above: Performed By: #### L 500.4050, L100.0100, L501.9985, L501.9520, L501.2300 ####[facility] [address] [place], [address] Creatinine [Mass/Vol] 1.25 mg/dL High 0.55-1.02 [facility] Comment on above: Result Comment: The validity of the calculated GFR GFRAA in patients over70 years has not been determined. Clinical correlation isessential. Performed By: #### L 500.4050, L100.0100, L501.9985, L501.9520, L501.2300 ####[facility] [address] [place], [address] ECRCL 36.68 ml/min Normal [facility] Comment on above: Performed By: #### L 500.4050, L100.0100, L501.9985, L501.9520, L501.2300 ####[facility] [address] [place], [address] EST GFR - AA 53 mL/min Low >60 [facility] Comment on above: Result Comment: Afri can [place] GFR Calc Performed By: #### L 500.4050, L100.0100, L501.9985, L501.9520, L501.2300 ####[facility] [address] [place], [address] GAP 8 Normal 5-15 [facility] Comment on above: Performed By: #### L 500.4050, L100.0100, L501.9985, L501.9520, L501.2300 ####[facility] [address] [place], [address] GFR/1.73 sq M.predicted among non-blacks MDRD (S/P/Bld) [Vol rate/Area] 44 mL/min/{1.73_m2} Low >60 [facility] Comment on above: Result Comment: Non- GFR Calc Performed By: #### L 500.4050, L100.0100, L501.9985, L501.9520, L501.2300 ####[facility] [address] [place], [address] Globulin (S) [Mass/Vol] 3.6 g/dL Normal 2.2-4.2 [facility] Comment on above: Performed By: #### L 500.4050, L100.0100, L501.9985, L501.9520, L501.2300 ####[facility] [address] [place], [address] Glucose [Mass/Vol] 355 mg/dL High 74-106 [facility] Comment on above: Result Comment: Gluc ose result greater than or equal to 200 mg/dLsuggests DIABETES MELLITUS per A.D.A. criteria. Performed By: #### L 500.4050, L100.0100, L501.9985, L501.9520, L501.2300 ####[facility] [address] [place], [address] Potassium [Moles/Vol] 3.5 mmol/L Normal 3.5-5.1 [facility] Comment on above: Performed By: #### L 500.4050, L100.0100, L501.9985, L501.9520, L501.2300 ####[facility] [address] [place], [address] Sodium [Moles/Vol] 140 mmol/L Normal 136-145 [facility] Comment on above: Performed By: #### L 500.4050, L100.0100, L501.9985, L501.9520, L501.2300 ####[facility] [address] [place], [address] T PROT 7.0 g/dL Normal 6.4-8.2 [facility] Comment on above: Performed By: #### L 500.4050, L100.0100, L501.9985, L501.9520, L501.2300 ####[facility] [address] [place], [address] Urea nitrogen [Mass/Vol] 29 mg/dL High 7-18 [facility] Comment on above: Performed By: #### L 500.4050, L100.0100, L501.9985, L501.9520, L501.2300 ####[facility] [address] [place], [address] Consultation - Infectious Dx on 06-18-2024 Consultation - Infectious Dx Normal [facility] Hemoglobin A1con 06-18-2024 HbA1c (Bld) [Mass fraction] 8.5 % High 3.8-5.6 [facility] Comment on above: Result Comment: Norm al < 5.7 % Prediabetic 5.7 - 6.4 % Diabetic >or= 6.5 % Please note range changes. Performed By: #### L 500.4050, L100.0100, L501.9985, L501.9520, L501.2300 ####[facility] [address] [place], [address] Phosphoruson 06-18-2024 Phosphate [Mass/Vol] 3.1 mg/dL Normal 2.5-4.9 [facility] Comment on above: Performed By: #### L 500.4050, L100.0100, L501.9985, L501.9520, L501.2300 ####[facility] [address] [place], [address] Thyroid Stim Hormone (TSH)on 06-18-2024 TSH 0.160 uIU/mL Low 0.358-3.740 [facility] Comment on above: Performed By: #### L 500.4050, L100.0100, L501.9985, L501.9520, L501.2300 ####[facility] [address] [place], [address] Urinalysis, Completeon 06-18 BACTERIA 2+ /hpf Normal None Seen [facility] Comment on above: Order Comment: SENT LABEL TO MS3 TO COLLECTCOLLECTOR TO SPECIFY Performed By: #### L 400.0001 ####[facility] [address] [place], [address] EPI,SQUAMOUS 0-5 SEEN Normal 5-10 [facility] Comment on above: Order Comment: SENT LABEL TO MS3 TO COLLECTCOLLECTOR TO SPECIFY Performed By: #### L 400.0001 ####[facility] [address] [place], [address] RBC 0-5 SEEN Normal 0-5 [facility] Comment on above: Order Comment: SENT LABEL TO MS3 TO COLLECTCOLLECTOR TO SPECIFY Performed By: #### L 400.0001 ####[facility] [address] [place], [address] WBC 10-25 SEEN Normal 0-5 [facility] Comment on above: Order Comment: SENT LABEL TO MS3 TO COLLECTCOLLECTOR TO SPECIFY Performed By: #### L 400.0001 ####[facility] [address] [place], [address] Mucus Ql (Urine sed) 0 SEEN Normal [facility] Comment on above: Order Comment: SENT LABEL TO MS3 TO COLLECTCOLLECTOR TO SPECIFY Performed By: #### L 400.0001 ####[facility] [address] [place], [address] Vitamin D,25 Hydroxyon 06-18 Vitamin D 25-OH 83.4 ng/mL Normal [facility] Comment on above: Result Comment: Jenni min D 25(OH) Status Range Deficiency <20 ng/mL (50nmol/L) Insufficiency 20 - 30 ng/mL (50 - 75 nmol/L) Sufficiency 30 - 100 ng/mL (75 - 250 nmol/L) Toxicity >100 ng/mL (>250 nmol/L) Performed By: #### L 506.1000, L500.3400 ####[facility] [address] [place], [address] 12 Lead EKGon 06-17-2024 12 Lead EKG Normal [facility] Ammoniaon 06-17-2024 Ammonia (P) [Mass/Vol] ug/dL Low 11-32 [facility] Comment on above: Performed By: #### L 503.5510 ####[facility] [address] [place], [address] Basic Metabolic Profile (BMP )on 06-17-2024 BUN/CRE 20.8 RATIO High 10-20 [facility] Comment on above: Order Comment: 'TROP ' Serial specimen #1, #2 or #3: 1 Performed By: #### L 500.2500, L100.0100, L501.3620, L501.4020 ####[facility] [address] [place], [address] CA,Total 11.4 mg/dL High 8.5-10.1 [facility] Comment on above: Order Comment: 'TROP ' Serial specimen #1, #2 or #3: 1 Performed By: #### L 500.2500, L100.0100, L501.3620, L501.4020 ####[facility] [address] [place], [address] Chloride [Moles/Vol] 100 mmol/L Normal 98-107 [facility] Comment on above: Order Comment: 'TROP ' Serial specimen #1, #2 or #3: 1 Performed By: #### L 500.2500, L100.0100, L501.3620, L501.4020 ####[facility] [address] [place], [address] CO2 [Moles/Vol] 25.0 mmol/L Normal 21.0-32.0 [facility] Comment on above: Order Comment: 'TROP ' Serial specimen #1, #2 or #3: 1 Performed By: #### L 500.2500, L100.0100, L501.3620, L501.4020 ####[facility] [address] [place], [address] Creatinine [Mass/Vol] 1.30 mg/dL High 0.55-1.02 [facility] Comment on above: Order Comment: 'TROP ' Serial specimen #1, #2 or #3: 1 Result Comment: The validity of the calculated GFR GFRAA in patients over70 years has not been determined. Clinical correlation isessential. Performed By: #### L 500.2500, L100.0100, L501.3620, L501.4020 ####[facility] [address] [place], [address] ECRCL 33.93 ml/min Normal [facility] Comment on above: Order Comment: 'TROP ' Serial specimen #1, #2 or #3: 1 Performed By: #### L 500.2500, L100.0100, L501.3620, L501.4020 ####[facility] [address] [place], [address] EST GFR - AA 51 mL/min Low >60 [facility] Comment on above: Order Comment: 'TROP ' Serial specimen #1, #2 or #3: 1 Result Comment: Afri can Citizen [place] GFR Calc Performed By: #### L 500.2500, L100.0100, L501.3620, L501.4020 ####[facility] [address] [place], [address] GAP 14 Normal 5-15 [facility] Comment on above: Order Comment: 'TROP ' Serial specimen #1, #2 or #3: 1 Performed By: #### L 500.2500, L100.0100, L501.3620, L501.4020 ####[facility] [address] [place], [address] GFR/1.73 sq M.predicted among non-blacks MDRD (S/P/Bld) [Vol rate/Area] 42 mL/min/{1.73_m2} Low >60 [facility] Comment on above: Order Comment: 'TROP ' Serial specimen #1, #2 or #3: 1 Result Comment: Non- GFR Calc Performed By: #### L 500.2500, L100.0100, L501.3620, L501.4020 ####[facility] [address] [place], [address] Glucose [Mass/Vol] 465 mg/dL Invalid Interpretation Code 74-106 [facility] Comment on above: Order Comment: 'TROP ' Serial specimen #1, #2 or #3: 1 Result Comment: Crit ical Result(s) Called at: 13:05:53 06/17/2024 by:Marilynn Marie. Results read back by same.Glucose result greater than or equal to 200 mg/dLsuggests DIABETES MELLITUS per A.D.A. criteria. Performed By: #### L 500.2500, L100.0100, L501.3620, L501.4020 ####[facility] [address] [place], [address] Potassium [Moles/Vol] 3.5 mmol/L Normal 3.5-5.1 [facility] Comment on above: Order Comment: 'TROP ' Serial specimen #1, #2 or #3: 1 Performed By: #### L 500.2500, L100.0100, L501.3620, L501.4020 ####[facility] [address] [place], [address] Sodium [Moles/Vol] 138 mmol/L Normal 136-145 [facility] Comment on above: Order Comment: 'TROP ' Serial specimen #1, #2 or #3: 1 Performed By: #### L 500.2500, L100.0100, L501.3620, L501.4020 ####[facility] [address] [place], [address] Urea nitrogen [Mass/Vol] 27 mg/dL High 7-18 [facility] Comment on above: Order Comment: 'TROP ' Serial specimen #1, #2 or #3: 1 Performed By: #### L 500.2500, L100.0100, L501.3620, L501.4020 ####[facility] [address] [place], [address] Bedside Glucoseon 06-17-2024 FINGERSTICK GLU 356 mg/dL High 74-106 [facility] Comment on above: Result Comment: ADAL GEMENT OF PATIENT CARE PER NURSING PROTOCOL Performed By: #### L 501.080 ####[facility] [address] [place], [address] FINGERSTICK GLU 335 mg/dL High 74-106 [facility] Comment on above: Result Comment: ADAL GEMENT OF PATIENT CARE PER NURSING PROTOCOL Performed By: #### L 501.080 ####[facility] [address] [place], [address] Brain/Head without Contrasto n 06-17-2024 Brain/Head without Contrast Normal [facility] CBC W/Diff, Automatedon 12-0 Absolute Lymph 0.63 X10 3/uL Low 0.83-4.51 [facility] Comment on above: Performed By: #### L 500.2500, L100.0100, L501.3620, L501.4020 ####[facility] [address] [place], [address] Absolute Neut 12.1 X10 3/uL High 2.0-7.7 [facility] Comment on above: Performed By: #### L 500.2500, L100.0100, L501.3620, L501.4020 ####[facility] [address] [place], [address] Basophils/100 WBC (Bld) 0.4 % Normal 0-1 [facility] Comment on above: Performed By: #### L 500.2500, L100.0100, L501.3620, L501.4020 ####[facility] [address] [place], [address] Eosinophils/100 WBC (Bld) 0.0 % Normal 0-5 [facility] Comment on above: Performed By: #### L 500.2500, L100.0100, L501.3620, L501.4020 ####[facility] [address] [place], [address] Erythrocyte distribution width (RBC) [Ratio] 16.7 % High 11.6-14.6 [facility] Comment on above: Performed By: #### L 500.2500, L100.0100, L501.3620, L501.4020 ####[facility] [address] [place], [address] Hematocrit (Bld) [Volume fraction] 48.2 % High 37-47 [facility] Comment on above: Performed By: #### L 500.2500, L100.0100, L501.3620, L501.4020 ####[facility] [address] [place], [address] Hemoglobin (Bld) [Mass/Vol] 15.0 g/dL Normal 12.0-15.0 [facility] Comment on above: Performed By: #### L 500.2500, L100.0100, L501.3620, L501.4020 ####[facility] [address] [place], [address] IG% 0.500 Normal 0.0-0.9 [facility] Comment on above: Result Comment: IG% - Immature Granulocytes (promyelocytes, myelocytes andmetamyelocytes) > 1% indicates that a LEFT SHIFT is Present. Performed By: #### L 500.2500, L100.0100, L501.3620, L501.4020 ####[facility] [address] [place], [address] Lymphocytes/100 WBC (Bld) 4.7 % Low 19-41 [facility] Comment on above: Performed By: #### L 500.2500, L100.0100, L501.3620, L501.4020 ####[facility] [address] [place], [address] MCH (RBC) [Entitic mass] 25.9 pg Low 27.0-32.0 [facility] Comment on above: Performed By: #### L 500.2500, L100.0100, L501.3620, L501.4020 ####[facility] [address] [place], [address] MCHC (RBC) [Mass/Vol] 31.1 g/dL Low 32-36 [facility] Comment on above: Performed By: #### L 500.2500, L100.0100, L501.3620, L501.4020 ####[facility] [address] [place], [address] MCV (RBC) [Entitic vol] 83.2 fL Normal 81-99 [facility] Comment on above: Performed By: #### L 500.2500, L100.0100, L501.3620, L501.4020 ####[facility] [address] [place], [address] Monocytes/100 WBC (Bld) 3.8 % Normal 0-10 [facility] Comment on above: Performed By: #### L 500.2500, L100.0100, L501.3620, L501.4020 ####[facility] [address] [place], [address] Neutrophils/100 WBC (Bld) 90.6 % High 47-70 [facility] Comment on above: Performed By: #### L 500.2500, L100.0100, L501.3620, L501.4020 ####[facility] [address] [place], [address] Nucleated RBC (Bld) [#/Vol] 0 10*3/uL Normal 0-5 [facility] Comment on above: Performed By: #### L 500.2500, L100.0100, L501.3620, L501.4020 ####[facility] [address] [place], [address] Platelet mean volume (Bld) [Entitic vol] 11.2 fL Normal 6.2-12.0 [facility] Comment on above: Performed By: #### L 500.2500, L100.0100, L501.3620, L501.4020 ####[facility] [address] [place], [address] Platelets (Bld) [#/Vol] 273 10*3/uL Normal 150-450 [facility] Comment on above: Performed By: #### L 500.2500, L100.0100, L501.3620, L501.4020 ####[facility] [address] [place], [address] RBC (Bld) [#/Vol] 5.79 10*6/uL High 4.2-5.4 [facility] Comment on above: Performed By: #### L 500.2500, L100.0100, L501.3620, L501.4020 ####[facility] [address] [place], [address] RDW SD 48.9 fl High 35.1-43.9 [facility] Comment on above: Performed By: #### L 500.2500, L100.0100, L501.3620, L501.4020 ####[facility] [address] [place], [address] WBC (Bld) [#/Vol] 13.4 10*3/uL High 4.4-11.0 [facility] Comment on above: Performed By: #### L 500.2500, L100.0100, L501.3620, L501.4020 ####[facility] [address] [place], [address] CPK Total, Creatine Kinaseon 06-17-2024 CPK TOTAL 526 U/L High 26-192 [facility] Comment on above: Order Comment: 'TROP ' Serial specimen #1, #2 or #3: 1 Performed By: #### L 500.2500, L100.0100, L501.3620, L501.4020 ####[facility] [address] [place], [address] Chest 1 View (Portable)on Chest 1 View (Portable) Normal [facility] Emergency Department Summary on 06-17-2024 Emergency Department Summary Normal [facility] Extremity Lower without Cont raon 06-17-2024 Extremity Lower without Contra Normal [facility] Free T3on 06-17-2024 Free T3 [Mass/Vol] 3.8 pg/mL Normal 2.18-3.98 [facility] Comment on above: Performed By: #### L 501.89795, L501.5200, L506.0400 ####[facility] [address] [place], [address] H AND P Exam - Hospitaliston 06-17-2024 H&P Exam - Hospitalist Normal [facility] HIP, UNI W/ Pelvis 2-3 Views on 06-17-2024 HIP, UNI W/ Pelvis 2-3 Views Normal [facility] L501.4020on 06-17-2024 TROPONIN-I HS 47 pg/mL Normal 3.0-54.0 [facility] Comment on above: Order Comment: 'TROP ' Serial specimen #1, #2 or #3: 1 Result Comment: Plea Note: New Test Units and Gender Specific Reference Ranges. For more information see Policy Stat Procedure [place] High Sensitivity Troponin (TNIH) and attachments. Performed By: #### L 500.2500, L100.0100, L501.3620, L501.4020 ####[facility] [address] [place], [address] Liver Profileon 06-17-2024 Albumin [Mass/Vol] 4.6 g/dL Normal 3.2-5.0 [facility] Comment on above: Performed By: #### L 506.1000, L500.3400 ####[facility] [address] [place], [address] ALK P 97 U/L Normal 45-117 [facility] Comment on above: Performed By: #### L 506.1000, L500.3400 ####[facility] [address] [place], [address] ALT [Catalytic activity/Vol] 23 U/L Normal 13-56 [facility] Comment on above: Performed By: #### L 506.1000, L500.3400 ####[facility] [address] [place], [address] AST [Catalytic activity/Vol] 33 U/L Normal 15-37 [facility] Comment on above: Performed By: #### L 506.1000, L500.3400 ####[facility] [address] [place], [address] Bilirubin [Mass/Vol] 0.90 mg/dL Normal 0.20-1.00 [facility] Comment on above: Result Comment: For patients on eltrombopag therapy, use of Dimension [place] TBIL is not recommended. Performed By: #### L 506.1000, L500.3400 ####[facility] [address] [place], [address] Bilirubin.direct [Mass/Vol] 0.31 mg/dL High 0.00-0.30 [facility] Comment on above: Performed By: #### L 506.1000, L500.3400 ####[facility] [address] [place], [address] Globulin (S) [Mass/Vol] 4.4 g/dL High 2.2-4.2 [facility] Comment on above: Performed By: #### L 506.1000, L500.3400 ####[facility] [address] [place], [address] T PROT 9.0 g/dL High 6.4-8.2 [facility] Comment on above: Performed By: #### L 506.1000, L500.3400 ####[facility] [address] [place], [address] Magnesiumon 06-17-2024 Magnesium [Mass/Vol] 1.6 mg/dL Normal 1.6-2.6 [facility] Comment on above: Performed By: #### L 501.87457, L501.5200, L506.0400 ####[facility] [address] [place], [address] PTHINon 06-17-2024 PTH 55.4 pg/mL Normal 18.4-80.1 [facility] Comment on above: Performed By: #### L 509.1000 ####[facility] [address] [place], [address] Spine Cervical without Contr ason 06-17-2024 Spine Cervical without Contras Normal [facility] T4 Free Directon 06-17-2024 T4 FREE DIRECT 1.50 ng/dL High 0.76-1.46 [facility] Comment on above: Performed By: #### L 501.80721, L501.5200, L506.0400 ####[facility] [address] [place], [address] CBC W Auto Differential pane l (Bld)on 06-03-2024 Basophils (Bld) [#/Vol] 0.05 10*3/uL Normal <0.11 [facility] Comment on above: Order Comment: Speci men Type: BLOOD SPECIMENOrdering Facility: [facility] Address: [address] [place] [address] Performed By: #### 1 4196-0, 95046-9 ####[facility] JONATHANDAVE [id number] [place] [address] [place] Basophils/100 WBC (Bld) 0.8 % Normal [facility] Comment on above: Order Comment: Speci men Type: BLOOD SPECIMENOrdering Facility: [facility] Address: [address] [place] [address] Performed By: #### 1 4196-0, 05965-9 ####[facility]OSPITALBRITTANYNaz [id number] [place] [address] [place] Differential cell count method Nom (Bld) Auto Normal [facility] Comment on above: Order Comment: Speci men Type: BLOOD SPECIMENOrdering Facility: [facility] Address: [address] [place] [address] Performed By: #### 1 4196-0, 08211-6 ####[facility]OSPITALARIELA [id number] [place] [address] [place] Eosinophils (Bld) [#/Vol] 0.30 10*3/uL Normal <0.46 [facility] Comment on above: Order Comment: Speci men Type: BLOOD SPECIMENOrdering Facility: [facility] Address: [address] [place] [address] Performed By: #### 1 4196-0, 66718-7 ####[facility] [id number] [place] [address] [place] Eosinophils/100 WBC (Bld) 5.0 % Normal [facility] Comment on above: Order Comment: Speci men Type: BLOOD SPECIMENOrdering Facility: [facility] Address: [address] [place] [address] Performed By: #### 1 4196-0, 83218-2 ####[facility] HOSPITALWNCLIA [id number] [place] [address] [place] Erythrocyte distribution width (RBC) [Ratio] 17.2 % High 11.5-15.0 [facility] Comment on above: Order Comment: Speci men Type: BLOOD SPECIMENOrdering Facility: [facility] Address: [address] [place] [address] Performed By: #### 1 4196-0, 17052-7 ####[facility] CENTERLIA [id number] [place] [address] [place] Hematocrit (Bld) [Volume fraction] 38.4 % Normal 36.0-46.0 [facility] Comment on above: Order Comment: Speci men Type: BLOOD SPECIMENOrdering Facility: [facility] Address: [address] [place] [address] Performed By: #### 1 4196-0, 65883-1 ####[facility] CENTERLINaz [id number] [place] [address] [place] Hemoglobin (Bld) [Mass/Vol] 11.6 g/dL Normal 11.5-15.5 [facility] Comment on above: Order Comment: Speci men Type: BLOOD SPECIMENOrdering Facility: [facility] Address: [address] [place] [address] Performed By: #### 1 4196-0, 01705-7 ####[facility] HOSPITALWNCLIA [id number] [place] [address] [place] Immature granulocytes (Bld) [#/Vol] 10*3/uL Normal <0.10 [facility] Comment on above: Order Comment: Speci men Type: BLOOD SPECIMENOrdering Facility: [facility] Address: [address] [place] [address] Performed By: #### 1 4196-0, 25180-2 ####[facility] [id number] [place] [address] [place] Immature granulocytes/100 WBC (Bld) 0.2 % Normal [facility] Comment on above: Order Comment: Speci men Type: BLOOD SPECIMENOrdering Facility: [facility] Address: [address] [place] [address] Performed By: #### 1 4196-0, 81568-9 ####[facility] [id number] [place] [address] [place] Lymphocytes (Bld) [#/Vol] 1.39 10*3/uL Normal 1.00-4.00 [facility] Comment on above: Order Comment: Speci men Type: BLOOD SPECIMENOrdering Facility: [facility] Address: [address] [place] [address] Performed By: #### 1 4196-0, 37682-4 ####[facility] [id number] [place] [address] [place] Lymphocytes/100 WBC (Bld) 23.0 % Normal [facility] Comment on above: Order Comment: Speci men Type: BLOOD SPECIMENOrdering Facility: [facility] Address: [address] [place] [address] Performed By: #### 1 4196-0, 76824-5 ####[facility] [id number] [place] [address] [place] MCH (RBC) [Entitic mass] 25.5 pg Low 26.0-34.0 [facility] Comment on above: Order Comment: Speci men Type: BLOOD SPECIMENOrdering Facility: [facility] Address: [address] [place] [address] Performed By: #### 1 4196-0, 36893-2 ####[facility] CENTERLIA [id number] [place] [address] [place] MCHC (RBC) [Mass/Vol] 30.2 g/dL Low 30.5-36.0 [facility] Comment on above: Order Comment: Speci men Type: BLOOD SPECIMENOrdering Facility: [facility] Address: [address] [place] [address] Performed By: #### 1 4196-0, 89271-2 ####[facility]ITALARIELA [id number] [place] [address] [place] MCV (RBC) [Entitic vol] 84.4 fL Normal 80.0-100.0 [facility] Comment on above: Order Comment: Speci men Type: BLOOD SPECIMENOrdering Facility: [facility] Address: [address] [place] [address] Performed By: #### 1 4196-0, 60996-3 ####[facility]ITALARIELA [id number] [place] [address] [place] Monocytes (Bld) [#/Vol] 0.56 10*3/uL Normal <0.87 [facility] Comment on above: Order Comment: Speci men Type: BLOOD SPECIMENOrdering Facility: [facility] Address: [address] [place] [address] Performed By: #### 1 4196-0, 88571-6 ####[facility]PITALMAYURIA [id number] [place] [address] [place] Monocytes/100 WBC (Bld) 9.3 % Normal [facility] Comment on above: Order Comment: Speci men Type: BLOOD SPECIMENOrdering Facility: [facility] Address: [address] [place] [address] Performed By: #### 1 4196-0, 20866-5 ####[facility]ITALNCLIA [id number] [place] [address] [place] Neutrophils (Bld) [#/Vol] 3.74 10*3/uL Normal 1.45-7.50 [facility] Comment on above: Order Comment: Speci men Type: BLOOD SPECIMENOrdering Facility: [facility] Address: [address] [place] [address] Performed By: #### 1 4196-0, 89250-4 ####[facility] [id number] [place] [address] [place] Neutrophils/100 WBC (Bld) 61.7 % Normal [facility] Comment on above: Order Comment: Speci men Type: BLOOD SPECIMENOrdering Facility: [facility] Address: [address] [place] [address] Performed By: #### 1 4196-0, 76042-5 ####[facility] [id number] [place] [address] [place] Nucleated RBC (Bld) [#/Vol] 10*3/uL Normal <0.01 [facility] Comment on above: Order Comment: Speci men Type: BLOOD SPECIMENOrdering Facility: [facility] Address: [address] [place] [address] Performed By: #### 1 4196-0, 76278-8 ####[facility] [id number] [place] [address] [place] Nucleated RBC/100 WBC (Bld) [Ratio] 0.0 /100 WBC Normal [facility] Comment on above: Order Comment: Speci men Type: BLOOD SPECIMENOrdering Facility: [facility] Address: [address] [place] [address] Performed By: #### 1 4196-0, 68089-4 ####[facility] [id number] [place] [address] [place] Platelet mean volume (Bld) [Entitic vol] 10.0 fL Normal 9.0-12.7 [facility] Comment on above: Order Comment: Speci men Type: BLOOD SPECIMENOrdering Facility: [facility] Address: [address] [place] [address] Performed By: #### 1 4196-0, 64176-0 ####[facility] ARJUN SALDIAVRNCDEXTERA [id number] [place] [address] [place] Platelets (Bld) [#/Vol] 280 10*3/uL Normal 150-400 [facility] Comment on above: Order Comment: Speci men Type: BLOOD SPECIMENOrdering Facility: [facility] Address: [address] [place] [address] Performed By: #### 1 4196-0, 10435-0 ####[facility] HOSPITALNCDEXTERA [id number] [place] [address] [place] RBC (Bld) [#/Vol] 4.55 10*6/uL Normal 3.90-5.20 [facility] Comment on above: Order Comment: Speci men Type: BLOOD SPECIMENOrdering Facility: [facility] Address: [address] [place] [address] Performed By: #### 1 4196-0, 48928-0 ####[facility]ITALNCLIA [id number] [place] [address] [place] WBC (Bld) [#/Vol] 6.05 10*3/uL Normal 3.70-11.00 [facility] Comment on above: Order Comment: Speci men Type: BLOOD SPECIMENOrdering Facility: [facility] Address: [address] [place] [address] Performed By: #### 1 4196-0, 09554-7 ####[facility]PITALNCLIA [id number] [place] [address] [place] CNOVSPon 06-03-2024 CNOVSP Visit (SP) Office ([facility]) -- KERRIE KEARNEY ([id number]) 1945 F Date Time Provider Department 06/03/24 [...] a month ago. recalls getting it at [facility]. Was living in [place]. Moved back to [place] early summer. Was admitted to [facility] for meningitis 12/2023. Transferred to [facility]. Course [...] in 6 months with labs Teressa Brennan APRN.INSTRUCTOR WARPER I spent a total of 30 minutes on the date of the service which included preparing to see the patient, lhze-an-oenc patient care, completing clinical documentation, and counseling and educating the patient/family/caregiver. Portions of this note including HPI, ROS, impression/plan may have b (more content not included)... Normal [facility] Ferritin SerPl-mCncon 2023 Ferritin [Mass/Vol] 183.0 ng/mL Normal 14.7-205.1 [facility] Comment on above: Order Comment: Speci men Type: BLOOD SPECIMENOrdering Facility: [facility] Address: [address] [place] [address] Performed By: #### 5 0190-8, 2276-4 ####[facility] LABCLIA [id number] [place] [address] [place] Iron and Iron binding capaci ty panelon 06-03-2024 Iron [Mass/Vol] 55 ug/dL Normal 41-186 [facility] Comment on above: Order Comment: Speci men Type: BLOOD SPECIMENOrdering Facility: [facility] Address: [address] [place] [address] Performed By: #### 5 0190-8, 2276-4 ####[facility] LABCLIA [id number] [place] [address] [place] Iron binding capacity [Mass/Vol] 303 ug/dL Normal 232-386 [facility] Comment on above: Order Comment: Speci men Type: BLOOD SPECIMENOrdering Facility: [facility] Address: [address] [place] [address] Performed By: #### 5 0190-8, 2275-4 ####[facility] LABIA [id number] [place] [address] [place] Iron/TIBC [Molar ratio] 18.2 % Normal 15.0-57.0 [facility] Comment on above: Order Comment: Speci men Type: BLOOD SPECIMENOrdering Facility: [facility] Address: [address] [place] [address] Performed By: #### 5 0190-8, 2275-4 ####[facility] LABIA [id number] [place] [address] [place] Retics #on 06-03-2024 Reticulocytes (Bld) [#/Vol] 0.86040 10*3/uL Normal 0.018-0.100 [facility] Comment on above: Order Comment: Speci men Type: BLOOD SPECIMENOrdering Facility: [facility] Address: [address] [place] [address] Performed By: #### 1 4196-0, 75787-9 ####[facility] ARJUN CASTILLOWESTMORELANDARIELA [id number] [place] [address] [place] Reticulocytes (Bld) [#/Vol]o n 06-03-2024 Reticulocytes/100 RBC (Bld) 0.6 % Normal 0.4-2.0 [facility] Comment on above: Order Comment: Aime grace Type: BLOOD SPECIMENOrdering Facility: [facility] Address: [place] [address] Performed By: #### 1 4196-0, 21431-8 ####[facility] ARJUN CASTILLOWESTMORELANDARIELA [id number] [address] OF [facility] CNOVSPon 04-29-2024 CNOVSP Visit (SP) Office (H EMAWS) -- KERRIE KEARNEY ([id number]) 1945 F Date Time Provider Department 04/29/24 10:30 AM TREATMENT RM 15 SEKOU [facility] WSTRHEMAWS During your visit today, we recorded the following information about you: Temperature Pulse Respiration Blood pressure 98.2 degrees 78/minute 16/minute 144/75 Referring Provider: ADAN SCOTT [[id number]] Allergies As of Date: 04/29/2024 Noted Allergy Reaction SULFA (SULFONAMIDE ANTIBIOTICS) 04/08/2024 9 - Itching Date Reviewed: 04/29/2024 Reviewed by: Madai Hunter RN - Fully Assessed Reason for Visit: Non-Chemotherapy Treatment [795] 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] Other Visit Diagnosis:Iron deficiency anemia secondary to inadequate dietary iron intake [D50.8] Order(s):TREATMENT PARAMETER-NOT NEEDED [9990723] Order #: [id number]: 1 BCN NURSING COMMUNICATION [[id number]] Order #: [id number]: 1 STANDING BCN NURSING COMMUNICATION [[id number]] Order #: [id number]: 1 STANDING [] iron sucrose 200 mg injection (VENOFER)Disp: Rfl: NaCl 0.9% iv infusionDisp: Rfl: diphenhydrAMINE 50 mg injection (BENADRYL)Disp: Rfl: hydrocortisone sodium succinate (PF) 100 mg injection (Solu-CORTEF)Disp: Rfl: EPINEPHrine HCl (PF) 1 mg/mL (1 mL) 0.3 mg injectionDisp: Rfl: N NURSING COMMUNICATION [[id number]] Order #: [id number]: 1 STANDING Prescriptions as of 04/29/2024 - [...] Encounter Status:Closed by MADAI HUNTER on 04/29/24 [facility] Mar yAnn 04-28-2024 KESHIA Telephone (HEMAWS) -- KERRIE KEARNEY ([id number]) 1945 F Date Time Provider Department 04/28/24 [...] Status:Closed by SAMANTHA MCDONALD on 04/28/24 [facility] CNOVSPon 10-11-2024 CNOVSP Visit (SP) Office (H EMAWS) -- KERRIE KEARNEY ([id number]) 1945 F Date Time Provider Department 04/25/24 3:30 PM TREATMENT RM 14 [facility] WSTRHEMAWS During your visit today, we recorded the following information about you: Referring Provider: ADAN SCOTT [[id number]] Allergies As of Date: 04/25/2024 Noted Allergy Reaction SULFA (SULFONAMIDE ANTIBIOTICS) 04/08/2024 9 - Itching Date Reviewed: 04/25/2024 Reviewed by: Veronique Barbour, RN - Fully Assessed Reason for Visit: Non-Chemotherapy Treatment [795] Primary Visit Diagnosis:Iron deficiency anemia secondary to inadequate dietary iron intake [D50.8] 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] Order(s):[] iron sucrose 200 mg injection (VENOFER)Disp: Rfl: TREATMENT PARAMETER-NOT NEEDED [9990723] Order #: [id number]: 1 BCN NURSING COMMUNICATION [9990720] Order #: [id number]: 1 STANDING BCN NURSING COMMUNICATION [9990720] Order #: [id number]: 1 STANDING NaCl 0.9% iv infusionDisp: Rfl: diphenhydrAMINE 50 mg injection (BENADRYL)Disp: Rfl: hydrocortisone sodium succinate (PF) 100 mg injection (Solu-CORTEF)Disp: Rfl: EPINEPHrine HCl (PF) 1 mg/mL (1 mL) 0.3 mg injectionDisp: Rfl: BCN NURSING COMMUNICATION [9990720] Order #: [id number]: 1 STANDING BCN NURSING COMMUNICATION [9990720] Order #: [id number]: 1 STANDING sodium chloride 0.9 % (flush) 10-20 mL (BD POSIFLUSH)Disp: Rfl: sodium chloride 0.9 % (flush) 10-20 mL (BD POSIFLUSH)Disp: Rfl: [facility] NURSING COMMUNICATION [[id number]] Order #: [id number]: 1 STANDING [facility] NURSING COMMUNICATION [[id number]] Order #: [id number]: 1 STANDING Prescriptions as of 04/25/2024 - [...] Encounter Status:Closed by VERONIQUE BARBOUR on 04/25/24 [facility] CNOVSPon 04-23-2024 CNOVSP Visit (SP) Office (H EMAWS) -- KERRIE KEARNEY ([id number]) 1945 F Date Time Provider Department 04/23/24 1:00 PM TREATMENT RM 15 [facility] WSTRHEMAWS During your visit today, we recorded the following information about you: Temperature Pulse Blood pressure 98.2 degrees 85/minute 126/64 Referring Provider: ADAN SCOTT [[id number]] Allergies As of Date: 04/23/2024 Noted Allergy Reaction SULFA (SULFONAMIDE ANTIBIOTICS) 04/08/2024 9 - Itching Date Reviewed: 04/21/2024 Reviewed by: Oksana Masters RN - Fully Assessed Reason for Visit: Non-Chemotherapy Treatment [795] 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] Other Visit Diagnosis:Iron deficiency anemia secondary to inadequate dietary iron intake [D50.8] Order(s):TREATMENT PARAMETER-NOT NEEDED [[id number]] Order #: [id number]: 1 BCN NURSING COMMUNICATION [3238868] Order #: [id number]: 1 STANDING BCN NURSING COMMUNICATION [9990720] Order #: [id number]: 1 STANDING [] iron sucrose iv piggyback 200 mg in NaCl 0.9% 100 mL (VENOFER)Disp: Rfl: NaCl 0.9% iv infusionDisp: Rfl: diphenhydrAMINE 50 mg injection (BENADRYL)Disp: Rfl: hydrocortisone sodium succinate (PF) 100 mg injection (Solu-CORTEF)Disp: Rfl: EPINEPHrine HCl (PF) 1 mg/mL (1 mL) 0.3 mg injectionDisp: Rfl: BCN NURSING COMMUNICATION [[id number]] Order #: [id number]: 1 STANDING Prescriptions as of 04/23/2024 - [...] Encounter Status:Closed by RADHA GRESHAM on 04/23/24 [facility] CNOVSPon 04-21-2024 CNOVSP Visit (SP) Office (H EMAWS) -- KERRIE KEARNEY ([id number]) 1945 F Date Time Provider Department 04/21/24 10:00 AM TREATMENT RM 14 [facility] WSTRHEMAWS During your visit today, we recorded the following information about you: Temperature Pulse Respiration Blood pressure 98.1 degrees 70/minute 14/minute 127/63 Referring Provider: ADAN SCOTT [[id number]] Allergies As of Date: 04/21/2024 Noted Allergy Reaction SULFA (SULFONAMIDE ANTIBIOTICS) 04/08/2024 9 - Itching Date Reviewed: 04/21/2024 Reviewed by: Oksana Masters RN - Fully Assessed Reason for Visit: Non-Chemotherapy Treatment [795] 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] Other Visit Diagnosis:Iron deficiency anemia secondary to inadequate dietary iron intake [D50.8] Order(s):TREATMENT PARAMETER-NOT NEEDED [[id number]] Order #: [id number]: 1 N NURSING COMMUNICATION [5199714] Order #: [id number]: 1 STANDING N NURSING COMMUNICATION [7388314] Order #: [id number]: 1 STANDING [] iron sucrose iv piggyback 200 mg in NaCl 0.9% 100 mL (VENOFER)Disp: Rfl: NaCl 0.9% iv infusionDisp: Rfl: diphenhydrAMINE 50 mg injection (BENADRYL)Disp: Rfl: hydrocortisone sodium succinate (PF) 100 mg injection (Solu-CORTEF)Disp: Rfl: EPINEPHrine HCl (PF) 1 mg/mL (1 mL) 0.3 mg injectionDisp: Rfl: N NURSING COMMUNICATION [3343717] Order #: [id number]: 1 STANDING Prescriptions as of 04/21/2024 - [...] Status:Closed by OKSANA MASTERS on 04/21/24 Normal [facility] CNOVSPon 04-17-2024 CNOVSP Visit (SP) Office (H EMAWS) -- KERRIE KEARNEY ([id number]) 1945 F Date Time Provider Department 04/17/24 11:00 AM TREATMENT RM 16 [facility] WSTRHEMAWS During your visit today, we recorded the following information about you: Temperature Pulse Blood pressure 97.4 degrees 90/minute 147/72 Referring Provider: ADAN SCOTT [[id number]] Allergies As of Date: 04/17/2024 Noted Allergy [...] Rfl: TREATMENT PARAMETER-NOT NEEDED [9990723] Order #: [id number]: 1 BCN NURSING COMMUNICATION [9990720] Order #: [id number]: 1 STANDING N NURSING COMMUNICATION [9990720] Order #: [id number]: 1 STANDING BCN NURSING COMMUNICATION [9990720] Order #: [id number]: 1 STANDING BCN NURSING COMMUNICATION [9990720] Order #: [id number]: 1 STANDING BCN NURSING COMMUNICATION [9990720] Order #: [id number]: 1 STANDING N NURSING COMMUNICATION [9990720] Order #: [id number]: 1 STANDING Prescriptions as of 04/17/2024 - [...] Encounter Status:Closed by VERONIQUE BARBOUR on 04/17/24 [facility] Mary Ann 04-15-2024 CNPN Telephone (PFS) -- KERRIE KEARNEY ([id number]) 1945 F Date Time Provider Department 04/15/24 [...] Fully Assessed Reason for Visit: Benefits Investigation [5168] Prescriptions as of 04/15/2024 - atorvastatin (LIPITOR) [...] Status:Closed by JOCE BUSTAMANTE on 04/15/24 Normal [facility] CNPWanda 04-09-2024 CNPN Telephone (HEMDANICA) -- KERRIE KEARNEY ([id number]) 1945 F Date Time Provider Department 04/09/24 [...] Status:Closed by CARLEEN BALES on 04/09/24 [facility] Auto Differential pane l (Bld)on 04-08-2024 Basophils (Bld) [#/Vol] 0.06 10*3/uL NINF [facility] Basophils/100 WBC (Bld) 0.7 % [facility] Differential cell count method Nom (Bld) Auto [facility] Eosinophils (Bld) [#/Vol] 0.16 10*3/uL [facility] Eosinophils/100 WBC (Bld) 1.9 % [facility] Erythrocyte distribution width (RBC) [Ratio] 13.0 % 11.5 - 15.0 % [facility] Hematocrit (Bld) [Volume fraction] 32.1 % Low 36.0 - 46.0 % [facility] Hemoglobin (Bld) [Mass/Vol] 9.6 g/dL Low 11.5 - 15.5 g/dL [facility] Immature granulocytes (Bld) [#/Vol] [facility] Immature granulocytes/100 WBC (Bld) 0.1 % [facility] Interpretation and review of laboratory results Abnormal [facility] Lymphocytes (Bld) [#/Vol] 1.47 10*3/uL [facility] Lymphocytes/100 WBC (Bld) 17.7 % [facility] MCH (RBC) [Entitic mass] 24.9 pg Low 26.0 - 34.[address] [facility] MCHC (RBC) [Mass/Vol] 29.9 g/dL Low 30.5 - 36.0 g/dL [facility] MCV (RBC) [Entitic vol] 83.4 fL 80.0 - 100.[address] [facility] Monocytes (Bld) [#/Vol] 0.59 10*3/uL [facility] Monocytes/100 WBC (Bld) 7.1 % [facility] Neutrophils (Bld) [#/Vol] 6.02 10*3/uL [facility] Neutrophils/100 WBC (Bld) 72.5 % [facility] Nucleated RBC (Bld) [#/Vol] [facility] Nucleated RBC/100 WBC (Bld) [Ratio] 0.0 % /[address] [facility] Platelet mean volume (Bld) [Entitic vol] 10.2 fL 9.0 - 12.[address] [facility] Platelets (Bld) [#/Vol] 317 10*3/uL [facility] RBC (Bld) [#/Vol] 3.85 10*6/uL Low 3.90 - 5.2 0 m/uL [facility] WBC (Bld) [#/Vol] 8.31 10*3/uL [facility] Basophils (Bld) [#/Vol] 0.06 10*3/uL Normal <0.11 [facility] Comment on above: Order Comment: Speci men Type: BLOOD SPECIMENOrdering Facility: [facility] Address: [address] [place] [address] Performed By: #### 5 7021-8 ####[facility] JONATHANJUSTOLIA [id number] [place] [address] [place] Basophils/100 WBC (Bld) 0.7 % Normal [facility] Comment on above: Order Comment: Speci men Type: BLOOD SPECIMENOrdering Facility: [facility] Address: [address] [place] [address] Performed By: #### 5 7021-8 ####[facility] HOSPITALBRITTANYLIA [id number] [place] [address] [place] Differential cell count method Nom (Bld) Auto Normal [facility] Comment on above: Order Comment: Speci men Type: BLOOD SPECIMENOrdering Facility: [facility] Address: [address] [place] [address] Performed By: #### 5 7021-8 ####[facility] MED[facility] CENTERLIA [id number] [place] [address] [place] Eosinophils (Bld) [#/Vol] 0.16 10*3/uL Normal <0.46 [facility] Comment on above: Order Comment: Speci men Type: BLOOD SPECIMENOrdering Facility: [facility] Address: [address] [place] [address] Performed By: #### 5 7021-8 ####[facility] MILLWNCLIA [id number] [place] [address] [place] Eosinophils/100 WBC (Bld) 1.9 % Normal [facility] Comment on above: Order Comment: Speci men Type: BLOOD SPECIMENOrdering Facility: [facility] Address: [address] [place] [address] Performed By: #### 5 7021-8 ####[facility] JONATHANWNCLIA [id number] [place] [address] [place] Erythrocyte distribution width (RBC) [Ratio] 13.0 % Normal 11.5-15.0 [facility] Comment on above: Order Comment: Speci men Type: BLOOD SPECIMENOrdering Facility: [facility] Address: [address] [place] [address] Performed By: #### 5 7021-8 ####[facility] CENTERLIA [id number] [place] [address] [place] Hematocrit (Bld) [Volume fraction] 32.1 % Low 36.0-46.0 [facility] Comment on above: Order Comment: Speci men Type: BLOOD SPECIMENOrdering Facility: [facility] Address: [address] [place] [address] Performed By: #### 5 7021-8 ####[facility] [id number] [place] [address] [place] Hemoglobin (Bld) [Mass/Vol] 9.6 g/dL Low 11.5-15.5 [facility] Comment on above: Order Comment: Speci men Type: BLOOD SPECIMENOrdering Facility: [facility] Address: [address] [place] [address] Performed By: #### 5 7021-8 ####[facility] CENTERLIA [id number] [place] [address] [place] Immature granulocytes (Bld) [#/Vol] 10*3/uL Normal <0.10 [facility] Comment on above: Order Comment: Speci men Type: BLOOD SPECIMENOrdering Facility: [facility] Address: [address] [place] [address] Performed By: #### 5 7021-8 ####[facility]OSPITALNCLIA [id number] [place] [address] [place] Immature granulocytes/100 WBC (Bld) 0.1 % Normal [facility] Comment on above: Order Comment: Speci men Type: BLOOD SPECIMENOrdering Facility: [facility] Address: [address] [place] [address] Performed By: #### 5 7021-8 ####[facility]OSPITALNCLIFEPOINT HOSPITALS [id number] [place] [address] [place] Lymphocytes (Bld) [#/Vol] 1.47 10*3/uL Normal 1.00-4.00 [facility] Comment on above: Order Comment: Speci men Type: BLOOD SPECIMENOrdering Facility: [facility] Address: [address] [place] [address] Performed By: #### 5 7021-8 ####[facility] [id number] [place] [address] [place] Lymphocytes/100 WBC (Bld) 17.7 % Normal [facility] Comment on above: Order Comment: Speci men Type: BLOOD SPECIMENOrdering Facility: [facility] Address: [address] [place] [address] Performed By: #### 5 7021-8 ####[facility] HOSPITALNCLI [id number] [place] [address] [place] MCH (RBC) [Entitic mass] 24.9 pg Low 26.0-34.0 [facility] Comment on above: Order Comment: Speci men Type: BLOOD SPECIMENOrdering Facility: [facility] Address: [address] [place] [address] Performed By: #### 5 7021-8 ####[facility] [id number] [place] [address] [place] MCHC (RBC) [Mass/Vol] 29.9 g/dL Low 30.5-36.0 [facility] Comment on above: Order Comment: Speci men Type: BLOOD SPECIMENOrdering Facility: [facility] Address: [address] [place] [address] Performed By: #### 5 7021-8 ####[facility] JONATHANWESTMORELANDARIELA [id number] [place] [address] [place] MCV (RBC) [Entitic vol] 83.4 fL Normal 80.0-100.0 [facility] Comment on above: Order Comment: Speci men Type: BLOOD SPECIMENOrdering Facility: [facility] Address: [address] [place] [address] Performed By: #### 5 7021-8 ####[facility]OSPITALNCLIFEPOINT HOSPITALS [id number] [place] [address] [place] Monocytes (Bld) [#/Vol] 0.59 10*3/uL Normal <0.87 [facility] Comment on above: Order Comment: Speci men Type: BLOOD SPECIMENOrdering Facility: [facility] Address: [address] [place] [address] Performed By: #### 5 7021-8 ####[facility] HOSPITALNCA [id number] [place] [address] [place] Monocytes/100 WBC (Bld) 7.1 % Normal [facility] Comment on above: Order Comment: Speci men Type: BLOOD SPECIMENOrdering Facility: [facility] Address: [address] [place] [address] Performed By: #### 5 7021-8 ####[facility]PITALNCLIA [id number] [place] [address] [place] Neutrophils (Bld) [#/Vol] 6.02 10*3/uL Normal 1.45-7.50 [facility] Comment on above: Order Comment: Speci men Type: BLOOD SPECIMENOrdering Facility: [facility] Address: [address] [place] [address] Performed By: #### 5 7021-8 ####[facility] JONATHANWBRITTANYLIA [id number] [place] [address] [place] Neutrophils/100 WBC (Bld) 72.5 % Normal [facility] Comment on above: Order Comment: Speci men Type: BLOOD SPECIMENOrdering Facility: [facility] Address: [address] [place] [address] Performed By: #### 5 7021-8 ####[facility]ITALBRITTANYLIA [id number] [place] [address] [place] Nucleated RBC (Bld) [#/Vol] 10*3/uL Normal <0.01 [facility] Comment on above: Order Comment: Speci men Type: BLOOD SPECIMENOrdering Facility: [facility] Address: [address] [place] [address] Performed By: #### 5 7021-8 ####[facility] [id number] [place] [address] [place] Nucleated RBC/100 WBC (Bld) [Ratio] 0.0 /100 WBC Normal [facility] Comment on above: Order Comment: Speci men Type: BLOOD SPECIMENOrdering Facility: [facility] Address: [address] [place] [address] Performed By: #### 5 7021-8 ####[facility] CENTERDEXTERA [id number] [place] [address] [place] Platelet mean volume (Bld) [Entitic vol] 10.2 fL Normal 9.0-12.7 [facility] Comment on above: Order Comment: Speci men Type: BLOOD SPECIMENOrdering Facility: [facility] Address: [address] [place] [address] Performed By: #### 5 7021-8 ####[facility] CENTERLIA [id number] [place] [address] [place] Platelets (Bld) [#/Vol] 317 10*3/uL Normal 150-400 [facility] Comment on above: Order Comment: Speci men Type: BLOOD SPECIMENOrdering Facility: [facility] Address: [address] [place] [address] Performed By: #### 5 7021-8 ####[facility] HOSPITALWNCLIA [id number] [place] [address] [place] RBC (Bld) [#/Vol] 3.85 10*6/uL Low 3.90-5.20 [facility] Comment on above: Order Comment: Speci men Type: BLOOD SPECIMENOrdering Facility: [facility] Address: [address] [place] [address] Performed By: #### 5 7021-8 ####[facility]PITALNCLIA [id number] [place] [address] [place] WBC (Bld) [#/Vol] 8.31 10*3/uL Normal 3.70-11.00 [facility] Comment on above: Order Comment: Speci men Type: BLOOD SPECIMENOrdering Facility: [facility] Address: [address] [place] [address] Performed By: #### 5 7021-8 ####[facility]PITALNCLIA [id number] [place] [address] [place] CNOVSPon 04-08-2024 CNOVSP Visit (SP) Office (H EMAWS) -- KERRIE KEARNEY ([id number]) 1945 F Date Time Provider Department 04/08/24 [...] a month ago. recalls getting it at [facility]. Was living in [place]. Moved back to [place] early summer. Was admitted to [facility] for meningitis 12/2023. Transferred to [facility]. Course [...] which included preparing to see the patient, [id number] patient care, completing clinical documentation, obtaining and/or [...] BLOOD COUNT AND DIFFERENTIAL [SQCBCDIF] Order #: [id number] FUTURE IRON AND TIBC [SQIRON] Order #: [id number] FUTURE FERRITIN [SQFERR] Order #: [id number] FUTURE COMPREHENSIVE METABOLIC PANEL [SQCMP] Order #: [id number] FUTURE Follow-up and Disposition History for Encounter Date Pro (more content not included)... Normal [facility] metabolic 2000 panelOrdered By: Radha Mcadams on 04-08-2024 Albumin [Mass/Vol] 4.3 g/dL 3.9 - 4.9 g/dL [facility] ALP [Catalytic activity/Vol] 100 U/L 34 - 123 U/L [facility] ALT [Catalytic activity/Vol] 7 U/L 7 - 38 U/L [facility] Anion gap [Moles/Vol] 14 mmol/L 8 - 15 mmol/L [facility] AST [Catalytic activity/Vol] 11 U/L Low 13 - 35 U/L [facility] Bilirubin [Mass/Vol] 0.2 mg/dL 0.2 - 1 .3 mg/dL [facility] Calcium [Mass/Vol] 10.2 mg/dL 8.5 - 10. 2 mg/dL [facility] Chloride [Moles/Vol] 102 mmol/L 98 - 10 7 mmol/L [facility] CO2 [Moles/Vol] 20 mmol/L Low 22 - 30 mmol/L [facility] Creatinine [Mass/Vol] 1.17 mg/dL High 0.58 - 0.96 mg/dL [facility] GFR/1.73 sq M.predicted among non-blacks MDRD (S/P/Bld) [Vol rate/Area] 48 mL/min/{1.73_m2} Low - PINF [facility] Comment on above: Estimated Glomerular Filtration Rate [...] 215 mg/dL High 74 - 99 mg/dL [facility] Comment on above: [place] Diabete s Association (ADA) provides guidance for [...] Standards of Medical Care in Diabetes 2016, [place] Diabetes Association. Diabetes Care. 2016.39(Suppl 1). Interpretation and review of laboratory results Abnormal [facility] Potassium [Moles/Vol] 4.4 mmol/L 3.7 - 5.1 mmol/L [facility] Protein [Mass/Vol] 7.3 g/dL 6.3 - 8.0 g/dL [facility] Sodium [Moles/Vol] 136 mmol/L 136 - 144 mmol/L [facility] Urea nitrogen [Mass/Vol] 56 mg/dL High 7 - 21 mg/dL [facility] Comprehensive metabolic 2000 panelon 04-08-2024 Albumin [Mass/Vol] 4.3 g/dL Normal 3.9-4.9 [facility] Comment on above: Order Comment: Speci men Type: BLOOD SPECIMENOrdering Facility: [facility] Address: [address] [place] [address] Performed By: #### 2 4323-8 ####[facility] [id number] [place] [address] [place] ALP [Catalytic activity/Vol] 100 U/L Normal 34-123 [facility] Comment on above: Order Comment: Speci men Type: BLOOD SPECIMENOrdering Facility: [facility] Address: [address] [place] [address] Performed By: #### 2 4323-8 ####[facility] [id number] [place] [address] [place] ALT [Catalytic activity/Vol] 7 U/L Normal 7-38 [facility] Comment on above: Order Comment: Speci men Type: BLOOD SPECIMENOrdering Facility: [facility] Address: [address] [place] [address] Performed By: #### 2 4323-8 ####[facility] JONATHANWNCLIA [id number] [place] [address] [place] Anion gap [Moles/Vol] 14 mmol/L Normal 8-15 [facility] Comment on above: Order Comment: Speci men Type: BLOOD SPECIMENOrdering Facility: [facility] Address: [address] [place] [address] Performed By: #### 2 4323-8 ####[facility]PITALNCLIA [id number] [place] [address] [place] AST [Catalytic activity/Vol] 11 U/L Low 13-35 [facility] Comment on above: Order Comment: Speci men Type: BLOOD SPECIMENOrdering Facility: [facility] Address: [address] [place] [address] Performed By: #### 2 4323-8 ####[facility]ENTERA [id number] [place] [address] [place] Bilirubin [Mass/Vol] 0.2 mg/dL Normal 0.2-1.3 [facility] Comment on above: Order Comment: Speci men Type: BLOOD SPECIMENOrdering Facility: [facility] Address: [address] [place] [address] Performed By: #### 2 4323-8 ####[facility]ITALNCLIA [id number] [place] [address] [place] Calcium [Mass/Vol] 10.2 mg/dL Normal 8.5-10.2 [facility] Comment on above: Order Comment: Speci men Type: BLOOD SPECIMENOrdering Facility: [facility] Address: [address] [place] [address] Performed By: #### 2 4323-8 ####[facility] MILLWNCLIA [id number] [place] [address] [place] Chloride [Moles/Vol] 102 mmol/L Normal 98-107 [facility] Comment on above: Order Comment: Speci men Type: BLOOD SPECIMENOrdering Facility: [facility] Address: [address] [place] [address] Performed By: #### 2 4323-8 ####[facility]ITALNCLIA [id number] [place] [address] [place] CO2 [Moles/Vol] 20 mmol/L Low 22-30 [facility] Comment on above: Order Comment: Speci men Type: BLOOD SPECIMENOrdering Facility: [facility] Address: [address] [place] [address] Performed By: #### 2 4323-8 ####[facility] CENTERLIA [id number] [place] [address] [place] Creatinine [Mass/Vol] 1.17 mg/dL High 0.58-0.96 [facility] Comment on above: Order Comment: Speci men Type: BLOOD SPECIMENOrdering Facility: [facility] Address: [address] [place] [address] Performed By: #### 2 4323-8 ####[facility] CENTERLIA [id number] [place] [address] [place] [facility] Creatinine and Glomerular filtration rate.predicted panel (S/P/Bld) 48 mL/min/1.73m??? Low >=60 [facility] Comment on above: Order Comment: Speci men Type: BLOOD SPECIMENOrdering Facility: [facility] Address: [address] [place] [address] Result Comment: Isabella mated Glomerular Filtration Rate [...] actual GFR. Performed By: #### 2 4323-8 ####[facility] HOSPITALWBRITTANYLIA [id number] [place] [address] [place] Glucose [Mass/Vol] 215 mg/dL High 74-99 [facility] Comment on above: Order Comment: Speci men Type: BLOOD SPECIMENOrdering Facility: [facility] Address: [address] [place], [place] [id number] Result Comment: The [place] Diabetes Association (ADA) provides guidance for cutoff [...] Standards of Medical Care in Diabetes 2016, [place] Diabetes Association. Diabetes Care. 2016.39(Suppl 1). Performed By: #### 2 4323-8 ####[facility] CENTERLIA [id number] [place] [address] [place] Potassium [Moles/Vol] 4.4 mmol/L Normal 3.7-5.1 [facility] Comment on above: Order Comment: Speci men Type: BLOOD SPECIMENOrdering Facility: [facility] Address: [address] [place] [address] Performed By: #### 2 4323-8 ####[facility] HOSPITALWNCLIA [id number] [place] [address] [place] Protein [Mass/Vol] 7.3 g/dL Normal 6.3-8.0 [facility] Comment on above: Order Comment: Speci men Type: BLOOD SPECIMENOrdering Facility: [facility] Address: [address] [place] [address] Performed By: #### 2 4323-8 ####[facility] [id number] [place] [address] [place] Sodium [Moles/Vol] 136 mmol/L Normal 136-144 [facility] Comment on above: Order Comment: Speci men Type: BLOOD SPECIMENOrdering Facility: [facility] Address: [address] [place] [address] Performed By: #### 2 4323-8 ####[facility] [id number] [place] [address] [place] Urea nitrogen [Mass/Vol] 56 mg/dL High 7-21 [facility] Comment on above: Order Comment: Speci men Type: BLOOD SPECIMENOrdering Facility: [facility] Address: [address] [place] [address] Performed By: #### 2 4323-8 ####[facility] [id number] [place] [address] [place] Ferritin SerPl-mCncon 2023 Ferritin [Mass/Vol] 9.4 ng/mL Low 14.7-205.1 [facility] Comment on above: Order Comment: Speci men Type: BLOOD SPECIMENOrdering Facility: [facility] Address: [address] [place] [address] Performed By: #### 2 276-4, 54268-3 ####[facility] LABCLIA [id number] [place] [address] [place] Iron and Iron binding capaci ty panelon 04-08-2024 Iron [Mass/Vol] 20 ug/dL Low 41-186 [facility] Comment on above: Order Comment: Speci men Type: BLOOD SPECIMENOrdering Facility: [facility] Address: [address] [place], [place] [address] Performed By: #### 2 276-4, 80394-2 ####[facility] LABCLIA [id number] [place] [id number] [place] Iron binding capacity [Mass/Vol] 444 ug/dL High 232-386 [facility] Comment on above: Order Comment: Speci men Type: BLOOD SPECIMENOrdering Facility: [facility] Address: [address] [place] [address] Performed By: #### 2 276-4, 45391-8 ####[facility] LABCLIA [id number] [place] [address] [place] Iron/TIBC [Molar ratio] 4.5 % Low 15.0-57.0 [facility] Comment on above: Order Comment: Speci men Type: BLOOD SPECIMENOrdering Facility: [facility] Address: [address] [place] [address] Performed By: #### 2 276-4, 57778-3 ####[facility] LABIA [id number] [place] [address] [place] Basic Metabolic Profile (BMP )on 02-07-2024 BUN/CRE 11.8 RATIO Normal 10-20 [facility] Comment on above: Order Comment: 211.1 Performed By: #### L 500.2500, L100.0500 ####[facility] [address] [place], [address] CA,Total 9.4 mg/dL Normal 8.5-10.1 [facility] Comment on above: Order Comment: 211.1 Performed By: #### L 500.2500, L100.0500 ####[facility] [address] [place], [address] Chloride [Moles/Vol] 109 mmol/L High 98-107 [facility] Comment on above: Order Comment: 211.1 Performed By: #### L 500.2500, L100.0500 ####[facility] [address] [place], [address] CO2 [Moles/Vol] 29.0 mmol/L Normal 21.0-32.0 [facility] Comment on above: Order Comment: . Performed By: #### L 500.2500, L100.0500 ####[facility] [address] [place], [address] Creatinine [Mass/Vol] 1.02 mg/dL Normal 0.55-1.02 [facility] Comment on above: Order Comment: .1 Result Comment: The validity of the calculated GFR GFRAA in patients over70 years has not been determined. Clinical correlation isessential. Performed By: #### L 500.2500, L100.0500 ####[facility] [address] [place], [address] EST GFR - AA 68 mL/min Normal >60 [facility] Comment on above: Order Comment: .1 Result Comment: Afri can Citizen [place] GFR Calc Performed By: #### L 500.2500, L100.0500 ####[facility] [address] [place], [address] GAP 4 Low 5-15 [facility] Comment on above: Order Comment: . Performed By: #### L 500.2500, L100.0500 ####[facility] [address] [place], [address] GFR/1.73 sq M.predicted among non-blacks MDRD (S/P/Bld) [Vol rate/Area] 56 mL/min/{1.73_m2} Low >60 [facility] Comment on above: Order Comment: 211.1 Result Comment: Non- GFR Calc Performed By: #### L 500.2500, L100.0500 ####[facility] [address] [place], [address] Glucose [Mass/Vol] 168 mg/dL High 74-106 [facility] Comment on above: Order Comment: 211.1 Result Comment: Fast ing Glucose result greater than or equal to 126 mg/dLsuggests DIABETES MELLITUS per A.D.A. criteria. Performed By: #### L 500.2500, L100.0500 ####[facility] [address] [place], [address] Potassium [Moles/Vol] 3.9 mmol/L Normal 3.5-5.1 [facility] Comment on above: Order Comment: . Performed By: #### L 500.2500, L100.0500 ####[facility] [address] [place], [address] Sodium [Moles/Vol] 142 mmol/L Normal 136-145 [facility] Comment on above: Order Comment: . Performed By: #### L 500.2500, L100.0500 ####[facility] [address] [place], [address] Urea nitrogen [Mass/Vol] 12 mg/dL Normal 7-18 [facility] Comment on above: Order Comment: . Performed By: #### L 500.2500, L100.0500 ####[facility] [address] [place], [address] CBC-Complete Blood Cnt No Di ffon 02-07-2024 Erythrocyte distribution width (RBC) [Ratio] 13.2 % Normal 11.6-14.6 [facility] Comment on above: Order Comment: 211. Performed By: #### L 500.2500, L100.0500 ####[facility] [address] [place], [address] Hematocrit (Bld) [Volume fraction] 29.9 % Low 37-47 [facility] Comment on above: Order Comment: 211.1 Performed By: #### L 500.2500, L100.0500 ####[facility] [address] [place], [address] Hemoglobin (Bld) [Mass/Vol] 9.1 g/dL Low 12.0-15.0 [facility] Comment on above: Order Comment: 211.1 Performed By: #### L 500.2500, L100.0500 ####[facility] [address] [place], [address] MCH (RBC) [Entitic mass] 27.2 pg Normal 27.0-32.0 [facility] Comment on above: Order Comment: 211.1 Performed By: #### L 500.2500, L100.0500 ####[facility] [address] [place], [address] MCHC (RBC) [Mass/Vol] 30.4 g/dL Low 32-36 [facility] Comment on above: Order Comment: 211.1 Performed By: #### L 500.2500, L100.0500 ####[facility] [address] [place], [address] MCV (RBC) [Entitic vol] 89.3 fL Normal 81-99 [facility] Comment on above: Order Comment: 211.1 Performed By: #### L 500.2500, L100.0500 ####[facility] [address] [place], [address] Platelet mean volume (Bld) [Entitic vol] 10.5 fL Normal 6.2-12.0 [facility] Comment on above: Order Comment: 211.1 Performed By: #### L 500.2500, L100.0500 ####[facility] [address] [place], [address] Platelets (Bld) [#/Vol] 359 10*3/uL Normal 150-450 [facility] Comment on above: Order Comment: 211.1 Performed By: #### L 500.2500, L100.0500 ####[facility] [address] [place], [address] RBC (Bld) [#/Vol] 3.35 10*6/uL Low 4.2-5.4 [facility] Comment on above: Order Comment: 211. Performed By: #### L 500.2500, L100.0500 ####[facility] [address] [place], [address] RDW SD 43.1 fl Normal 35.1-43.9 [facility] Comment on above: Order Comment: . Performed By: #### L 500.2500, L100.0500 ####[facility] [address] [place], [address] WBC (Bld) [#/Vol] 5.7 10*3/uL Normal 4.4-11.0 [facility] Comment on above: Order Comment: . Performed By: #### L 500.2500, L100.0500 ####[facility] [address] [place], [address] Basic Metabolic Profile (BMP )on 01-31-2024 BUN/CRE 12.4 RATIO Normal 10-20 [facility] Comment on above: Performed By: #### L 100.0500, L500.2500 ####[facility] [address] [place], [address] [place],Total 8.9 mg/dL Normal 8.5-10.1 [facility] Comment on above: Performed By: #### L 100.0500, L500.2500 ####[facility] [address] [place], [address] Chloride [Moles/Vol] 104 mmol/L Normal 98-107 [facility] Comment on above: Performed By: #### L 100.0500, L500.2500 ####[facility] [address] [place], [address] CO2 [Moles/Vol] 28.0 mmol/L Normal 21.0-32.0 [facility] Comment on above: Performed By: #### L 100.0500, L500.2500 ####[facility] [address] [place], [address] Creatinine [Mass/Vol] 1.21 mg/dL High 0.55-1.02 [facility] Comment on above: Result Comment: The validity of the calculated GFR GFRAA in patients over70 years has not been determined. Clinical correlation isessential. Performed By: #### L 100.0500, L500.2500 ####[facility] [address] [place] [place], [address] EST GFR - AA 56 mL/min Low >60 [facility] Comment on above: Result Comment: Afri can [place] GFR Calc Performed By: #### L 100.0500, L500.2500 ####[facility] [address] [place], [address] GAP 6 Normal 5-15 [facility] Comment on above: Performed By: #### L 100.0500, L500.2500 ####[facility] [address] [place], [address] GFR/1.73 sq M.predicted among non-blacks MDRD (S/P/Bld) [Vol rate/Area] 46 mL/min/{1.73_m2} Low >60 [facility] Comment on above: Result Comment: Non- GFR Calc Performed By: #### L 100.0500, L500.2500 ####[facility] [address] [place], [address] Glucose [Mass/Vol] 177 mg/dL High 74-106 [facility] Comment on above: Result Comment: Fast ing Glucose result greater than or equal to 126 mg/dLsuggests DIABETES MELLITUS per A.D.A. criteria. Performed By: #### L 100.0500, L500.2500 ####[facility] [address] [place], [address] Potassium [Moles/Vol] 3.9 mmol/L Normal 3.5-5.1 [facility] Comment on above: Performed By: #### L 100.0500, L500.2500 ####[facility] [address] [place], [address] Sodium [Moles/Vol] 138 mmol/L Normal 136-145 [facility] Comment on above: Performed By: #### L 100.0500, L500.2500 ####[facility] [address] [place], [address] Urea nitrogen [Mass/Vol] 15 mg/dL Normal 7-18 [facility] Comment on above: Performed By: #### L 100.0500, L500.2500 ####[facility] [address] [place], [address] CBC-Complete Blood Cnt No Di ffon 01-31-2024 Erythrocyte distribution width (RBC) [Ratio] 13.2 % Normal 11.6-14.6 [facility] Comment on above: Performed By: #### L 100.0500, L500.2500 ####[facility] [address] [place], [address] Hematocrit (Bld) [Volume fraction] 27.1 % Low 37-47 [facility] Comment on above: Performed By: #### L 100.0500, L500.2500 ####[facility] [address] [place], [address] Hemoglobin (Bld) [Mass/Vol] 8.3 g/dL Low 12.0-15.0 [facility] Comment on above: Performed By: #### L 100.0500, L500.2500 ####[facility] [address] [place], [address] MCH (RBC) [Entitic mass] 27.4 pg Normal 27.0-32.0 [facility] Comment on above: Performed By: #### L 100.0500, L500.2500 ####[facility] [address] [place], [address] MCHC (RBC) [Mass/Vol] 30.6 g/dL Low 32-36 [facility] Comment on above: Performed By: #### L 100.0500, L500.2500 ####[facility] [address] [place], [address] MCV (RBC) [Entitic vol] 89.4 fL Normal 81-99 [facility] Comment on above: Performed By: #### L 100.0500, L500.2500 ####[facility] [address] [place], [address] Platelet mean volume (Bld) [Entitic vol] 10.4 fL Normal 6.2-12.0 [facility] Comment on above: Performed By: #### L 100.0500, L500.2500 ####[facility] [address] [place], [address] Platelets (Bld) [#/Vol] 337 10*3/uL Normal 150-450 [facility] Comment on above: Performed By: #### L 100.0500, L500.2500 ####[facility] [address] [place], [address] RBC (Bld) [#/Vol] 3.03 10*6/uL Low 4.2-5.4 [facility] Comment on above: Performed By: #### L 100.0500, L500.2500 ####[facility] [address] [place], [address] RDW SD 42.4 fl Normal 35.1-43.9 [facility] Comment on above: Performed By: #### L 100.0500, L500.2500 ####[facility] [address] [place], [address] WBC (Bld) [#/Vol] 8.1 10*3/uL Normal 4.4-11.0 [facility] Comment on above: Performed By: #### L 100.0500, L500.2500 ####[facility] [address] [place], [address] BASIC METABOLIC PANELon - Anion gap [Moles/Vol] 11 mmol/L 7 - 17 mmol/L [facility] Calcium [Mass/Vol] 8.6 mg/dL 8.6 - 10. 5 mg/dL [facility] Chloride [Moles/Vol] 101 mmol/L 98 - 10 8 mmol/L [facility] CO2 [Moles/Vol] 26 mmol/L 21 - 31 mmol/L [facility] Creatinine [Mass/Vol] 1.19 mg/dL 0.50 - 1.20 mg/dL [facility] eGFR, CKD-EPI, Female 47 Low - PINF [facility] Glucose [Mass/Vol] 231 mg/dL High 70 - 99 mg/dL [facility] Interpretation and review of laboratory results Abnormal [facility] Osmolality Calc [Osmolality] 292 [facility] Potassium [Moles/Vol] 4.0 mmol/L 3.5 - 5.0 mmol/L [facility] Sodium [Moles/Vol] 134 mmol/L Low 135 - 145 mmol/L [facility] Urea nitrogen [Mass/Vol] 18 mg/dL 7 - 25 mg/dL [facility] Urea nitrogen/Creatinine [Mass ratio] 15 mg/mg [facility] Anion gap [Moles/Vol] 11 mmol/L Normal 7-17 [facility] Comment on above: Performed By: #### B FLD #### U [facility] (DEFAULT) [address] [place] [address] Calcium [Mass/Vol] 8.6 mg/dL Normal 8.6-10.5 [facility] Comment on above: Performed By: #### B FLD #### [facility] (DEFAULT) [address] [place] [address] Chloride [Moles/Vol] 101 mmol/L Normal 98-108 [facility] Comment on above: Performed By: #### B FLD #### [facility] (DEFAULT) [address] [place] [address] CO2 [Moles/Vol] 26 mmol/L Normal 21-31 [facility] Comment on above: Performed By: #### Genia FLD #### [facility] (DEFAULT) [address] [place] [address] Creatinine [Mass/Vol] 1.19 mg/dL Normal 0.50-1.20 [facility] Comment on above: Performed By: #### B FLD #### [facility] (DEFAULT) [address] [place] [address] GFR/1.73 sq M.predicted among non-blacks MDRD (S/P/Bld) [Vol rate/Area] 47 mL/min/{1.73_m2} Low >=60 [facility] Comment on above: Result Comment: Repo rted eGFR is based on the CKD-EPI 2020 equation using creatinine, age, and sex. Performed By: #### B FLD #### [facility] (DEFAULT) [address] [place] [address] Glucose [Mass/Vol] 231 mg/dL High 70-99 [facility] Comment on above: Performed By: #### B FLD #### [facility] (DEFAULT) [address] [address] Osmolality [Osmolality] 292 mosm/kg Normal 278-305 [facility] Comment on above: Performed By: #### B FLD #### [facility] (DEFAULT) [address] [address] Potassium [Moles/Vol] 4.0 mmol/L Normal 3.5-5.0 [facility] Comment on above: Performed By: #### B FLD #### [facility] (DEFAULT) [address] [place] [address] Sodium [Moles/Vol] 134 mmol/L Low 135-145 [facility] Comment on above: Performed By: #### B FLD #### [facility] (DEFAULT) [address] [place] [address] Urea nitrogen [Mass/Vol] 18 mg/dL Normal 7-25 [facility] Comment on above: Performed By: #### B FLD #### U [facility] (DEFAULT) [address] [place] [address] Urea nitrogen/Creatinine [Mass ratio] 15 mg/mg Normal [facility] Comment on above: Performed By: #### B FLD #### [facility] (DEFAULT) [address] [place] [address] CBC,PLATELETSon 01-30-2024 Erythrocyte distribution width (RBC) [Ratio] 13.0 % 10.8 - 14.9 % [facility] Hematocrit (Bld) [Volume fraction] 29.7 % Low 34.9 - 44.3 % [facility] Hemoglobin (Bld) [Mass/Vol] 9.1 g/dL Low 11.4 - 15.2 g/dL [facility] Interpretation and review of laboratory results Abnormal [facility] MCH (RBC) [Entitic mass] 27.4 pg 25.9 - 33.9 pg [facility] MCHC (RBC) [Mass/Vol] 30.6 g/dL Low 31.4 - 35.9 g/dL [facility] MCV (RBC) [Entitic vol] 89.5 fL 79.6 - 97.7 fL [facility] Platelet mean volume (Bld) [Entitic vol] 10.8 fL 8.5 - 12.2 fL [facility] Platelets (Bld) [#/Vol] 343 10*3/uL 150 - 393 K/uL [facility] RBC (Bld) [#/Vol] 3.32 10*6/uL Low [facility] WBC (Bld) [#/Vol] 9.55 10*3/uL 3.99 - 11. 19 K/uL [facility] Hematocrit (Bld) [Volume fraction] 29.7 % Low 34.9-44.3 [facility] Comment on above: Performed By: #### S URGP #### [facility] (DEFAULT) [address] [address] Hemoglobin (Bld) [Mass/Vol] 9.1 g/dL Low 11.4-15.2 [facility] Comment on above: Performed By: #### S URGP #### [facility] (DEFAULT) [address] [address] MCV (RBC) [Entitic vol] 89.5 fL Normal 79.6-97.7 [facility] Comment on above: Performed By: #### S URGP #### [facility] (DEFAULT) [address] [address] Mean Cell Hgb 27.4 pg Normal 25.9-33.9 [facility] Comment on above: Performed By: #### S URGP #### [facility] (DEFAULT) [address] [address] Mean Cell Hgb Conc 30.6 g/dL Low 31.4-35.9 [facility] Comment on above: Performed By: #### S URGP #### [facility] (DEFAULT) [address] [address] Platelet mean volume (Bld) [Entitic vol] 10.8 fL Normal 8.5-12.2 [facility] Comment on above: Performed By: #### S URGP #### [facility] (DEFAULT) [address] [address] Platelets (Bld) [#/Vol] 343 10*3/uL Normal 150-393 [facility] Comment on above: Performed By: #### S URGP #### [facility] (DEFAULT) [address] [place] [address] RBC (Bld) [#/Vol] 3.32 10*6/uL Low 3.91-5.04 [facility] Comment on above: Performed By: #### S URGP #### U [facility] (DEFAULT) [address] [place] [address] RBC Distribution 13.0 % Normal 10.8-14.9 [facility] Comment on above: Performed By: #### S URGP #### U [facility] (DEFAULT) [address] [place] [address] WBC (Bld) [#/Vol] 9.55 10*3/uL Normal 3.99-11.19 [facility] Comment on above: Performed By: #### S URGP #### [facility] (DEFAULT) [address] [place] [address] GLUCOSE POCon 01-30-2024 Glucose [Mass/Vol] 227 mg/dL High 70 - 99 mg/dL [facility] Interpretation and review of laboratory results Abnormal [facility] POC Sample Type CAPBL [facility] Glucose [Mass/Vol] 225 mg/dL High 70 - 99 mg/dL [facility] Interpretation and review of laboratory results Abnormal [facility] POC Sample Type CAPBL [facility] MAGNESIUMon 01-30-2024 Interpretation and review of laboratory results Normal [facility] Magnesium [Mass/Vol] 1.6 mg/dL 1.6 - 2 .6 mg/dL [facility] Magnesium [Mass/Vol] 1.6 mg/dL Normal 1.6-2.6 [facility] Comment on above: Performed By: #### S URGP #### [facility] (DEFAULT) [address] [place] [address] No Panel Informationon 01-29 [facility] BASIC METABOLIC PANELon 01-13 Anion gap [Moles/Vol] 12 mmol/L 7 - 17 mmol/L [facility] Calcium [Mass/Vol] 8.3 mg/dL Low 8.6 - 10. 5 mg/dL [facility] Chloride [Moles/Vol] 104 mmol/L 98 - 10 8 mmol/L [facility] CO2 [Moles/Vol] 26 mmol/L 21 - 31 mmol/L [facility] Creatinine [Mass/Vol] 1.30 mg/dL High 0.50 - 1.20 mg/dL [facility] eGFR, CKD-EPI, Female 43 Low - PINF [facility] Glucose [Mass/Vol] 240 mg/dL High 70 - 99 mg/dL [facility] Interpretation and review of laboratory results Abnormal [facility] Osmolality Calc [Osmolality] 300 [facility] Potassium [Moles/Vol] 3.8 mmol/L 3.5 - 5.0 mmol/L [facility] Sodium [Moles/Vol] 138 mmol/L 135 - 145 mmol/L [facility] Urea nitrogen [Mass/Vol] 18 mg/dL 7 - 25 mg/dL [facility] Urea nitrogen/Creatinine [Mass ratio] 14 mg/mg [facility] Anion gap [Moles/Vol] 12 mmol/L Normal 7-17 [facility] Comment on above: Performed By: #### José 7C, MGO #### [facility] (DEFAULT) [address] [place] [address] Calcium [Mass/Vol] 8.3 mg/dL Low 8.6-10.5 [facility] Comment on above: Performed By: #### José 7C, MGO #### [facility] (DEFAULT) [address] [place] [address] Chloride [Moles/Vol] 104 mmol/L Normal 98-108 [facility] Comment on above: Performed By: #### José Quiñones, MGO #### [facility] (DEFAULT) [address] [place] [address] CO2 [Moles/Vol] 26 mmol/L Normal 21-31 [facility] Comment on above: Performed By: #### José Quiñones, MGO #### [facility] (DEFAULT) [address] [place] [address] Creatinine [Mass/Vol] 1.30 mg/dL High 0.50-1.20 [facility] Comment on above: Performed By: #### José Quiñones, MGO #### [facility] (DEFAULT) [address] [place] [address] GFR/1.73 sq M.predicted among non-blacks MDRD (S/P/Bld) [Vol rate/Area] 43 mL/min/{1.73_m2} Low >=60 [facility] Comment on above: Result Comment: Repo rted eGFR is based on the CKD-EPI 2020 equation using creatinine, age, and sex. Performed By: #### José Quiñones, MGO #### [facility] (DEFAULT) [address] [place] [address] Glucose [Mass/Vol] 240 mg/dL High 70-99 [facility] Comment on above: Performed By: #### José Quiñones, MGO #### [facility] (DEFAULT) [address] [place] [address] 9[address]41 Osmolality [Osmolality] 300 mosm/kg Normal 278-305 [facility] Comment on above: Performed By: #### José Quiñones, MGO #### [facility] (DEFAULT) [address] [place] [address] 22465 Potassium [Moles/Vol] 3.8 mmol/L Normal 3.5-5.0 [facility] Comment on above: Performed By: #### C 7C, MGO #### [facility] (DEFAULT) [address] [place] [address] Sodium [Moles/Vol] 138 mmol/L Normal 135-145 [facility] Comment on above: Performed By: #### C 7C, MGO #### [facility] (DEFAULT) [address] [place] [address] Urea nitrogen [Mass/Vol] 18 mg/dL Normal 7-25 [facility] Comment on above: Performed By: #### C 7C, MGO #### [facility] (DEFAULT) [address] [place] [address] Urea nitrogen/Creatinine [Mass ratio] 14 mg/mg Normal [facility] Comment on above: Performed By: #### C 7C, MGO #### [facility] (DEFAULT) [address] [place] [address] GLUCOSE POCon 01-29-2024 Glucose [Mass/Vol] 213 mg/dL High 70 - 99 mg/dL [facility] Interpretation and review of laboratory results Abnormal [facility] POC Sample Type CAPBL [facility] Glucose [Mass/Vol] 164 mg/dL High 70 - 99 mg/dL [facility] Interpretation and review of laboratory results Abnormal [facility] POC Sample [facility] Glucose [Mass/Vol] 191 mg/dL High 70 - 99 mg/dL [facility] Interpretation and review of laboratory results Abnormal [facility] POC Sample Type [facility] Glucose [Mass/Vol] 231 mg/dL High 70 - 99 mg/dL [facility] Interpretation and review of laboratory results Abnormal [facility] POC Sample Type [facility] MAGNESIUMon 01-29-2024 Interpretation and review of laboratory results Normal [facility] Magnesium [Mass/Vol] 1.6 mg/dL 1.6 - 2 .6 mg/dL [facility] Magnesium [Mass/Vol] 1.6 mg/dL Normal 1.6-2.6 [facility] Comment on above: Performed By: #### C 7C, MGO #### [facility] (DEFAULT) [address] [place] [id number] BASIC METABOLIC PANELon 01-13 Anion gap [Moles/Vol] 12 mmol/L 7 - 17 mmol/L [facility] Calcium [Mass/Vol] 8.5 mg/dL Low 8.6 - 10. 5 mg/dL [facility] Chloride [Moles/Vol] 103 mmol/L 98 - 10 8 mmol/L [facility] CO2 [Moles/Vol] 26 mmol/L 21 - 31 mmol/L [facility] Creatinine [Mass/Vol] 1.15 mg/dL 0.50 - 1.20 mg/dL [facility] eGFR, CKD-EPI, Female 49 Low - PINF [facility] Glucose [Mass/Vol] 221 mg/dL High 70 - 99 mg/dL [facility] Interpretation and review of laboratory results Abnormal [facility] Osmolality Calc [Osmolality] 295 [facility] Potassium [Moles/Vol] 4.0 mmol/L 3.5 - 5.0 mmol/L [facility] Sodium [Moles/Vol] 137 mmol/L 135 - 145 mmol/L [facility] Urea nitrogen [Mass/Vol] 14 mg/dL 7 - 25 mg/dL [facility] Urea nitrogen/Creatinine [Mass ratio] 12 mg/mg [facility] Anion gap [Moles/Vol] 12 mmol/L Normal 7-17 [facility] Comment on above: Performed By: #### M GO, CHM7, HFP #### [facility] (DEFAULT) [address] [place] [address] Calcium [Mass/Vol] 8.5 mg/dL Low 8.6-10.5 [facility] Comment on above: Performed By: #### LYN MALONEY, HFP #### [facility] (DEFAULT) [address] [place] [address] Chloride [Moles/Vol] 103 mmol/L Normal 98-108 [facility] Comment on above: Performed By: #### LYN MALONEY, HFP #### [facility] (DEFAULT) [address] [place] [address] 10169 CO2 [Moles/Vol] 26 mmol/L Normal 21-31 [facility] Comment on above: Performed By: #### LYN MALONEY, HFP #### [facility] (DEFAULT) [address] [place] [address] 33125 Creatinine [Mass/Vol] 1.15 mg/dL Normal 0.50-1.20 [facility] Comment on above: Performed By: #### LYN MALONEY, HFP #### [facility] (DEFAULT) [address] [place] [address] 53599 GFR/1.73 sq M.predicted among non-blacks MDRD (S/P/Bld) [Vol rate/Area] 49 mL/min/{1.73_m2} Low >=60 [facility] Comment on above: Result Comment: Repo rted eGFR is based on the CKD-EPI 2020 equation using creatinine, age, and sex. Performed By: #### LYN MALONEY, HFP #### [facility] (DEFAULT) [address] [place] [address] 22483 Glucose [Mass/Vol] 221 mg/dL High 70-99 [facility] Comment on above: Performed By: #### LYN MALONEY, HFP #### [facility] (DEFAULT) [address] [place] [address] 86179 Osmolality [Osmolality] 295 mosm/kg Normal 278-305 [facility] Comment on above: Performed By: #### LYN MALONEY, HFP #### [facility] (DEFAULT) [address] [place] [address] 61318 Potassium [Moles/Vol] 4.0 mmol/L Normal 3.5-5.0 [facility] Comment on above: Performed By: #### SILVIA MALONEY7, HFP #### [facility] (DEFAULT) [address] [place] [address] 00717 Sodium [Moles/Vol] 137 mmol/L Normal 135-145 [facility] Comment on above: Performed By: #### LYN MALONEY, HFP #### [facility] (DEFAULT) [address] [place] [address] 56338 Urea nitrogen [Mass/Vol] 14 mg/dL Normal 7-25 [facility] Comment on above: Performed By: #### LYN MALONEY, HFP #### [facility] (DEFAULT) [address] [place] [address] 75320 Urea nitrogen/Creatinine [Mass ratio] 12 mg/mg Normal [facility] Comment on above: Performed By: #### LYN MALONEY, HFP #### [facility] (DEFAULT) [address] [place] [address]994 CBC,PLATELETSon 01-28-2024 Erythrocyte distribution width (RBC) [Ratio] 12.8 % 10.8 - 14.9 % [facility] Hematocrit (Bld) [Volume fraction] 31.7 % Low 34.9 - 44.3 % [facility] Hemoglobin (Bld) [Mass/Vol] 10.0 g/dL Low 11.4 - 15.2 g/dL [facility] Interpretation and review of laboratory results Abnormal [facility] MCH (RBC) [Entitic mass] 28.2 pg 25.9 - 33.9 pg [facility] MCHC (RBC) [Mass/Vol] 31.5 g/dL 31.4 - 35.9 g/dL [facility] MCV (RBC) [Entitic vol] 89.3 fL 79.6 - 97.7 fL [facility] Platelet mean volume (Bld) [Entitic vol] 10.5 fL 8.5 - 12.2 fL [facility] Platelets (Bld) [#/Vol] 362 10*3/uL 150 - 393 K/uL [facility] RBC (Bld) [#/Vol] 3.55 10*6/uL Low [facility] WBC (Bld) [#/Vol] 7.66 10*3/uL 3.99 - 11. 19 K/uL [facility] Hematocrit (Bld) [Volume fraction] 31.7 % Low 34.9-44.3 [facility] Comment on above: Performed By: #### José 7C, MGO #### [facility] (DEFAULT) [address] [address] Hemoglobin (Bld) [Mass/Vol] 10.0 g/dL Low 11.4-15.2 [facility] Comment on above: Performed By: #### José 7C, MGO #### [facility] (DEFAULT) [address] [address] MCV (RBC) [Entitic vol] 89.3 fL Normal 79.6-97.7 [facility] Comment on above: Performed By: #### C 7C, MGO #### [facility] (DEFAULT) [address] [place] [address] 52540 Mean Cell Hgb 28.2 pg Normal 25.9-33.9 [facility] Comment on above: Performed By: #### C 7C, MGO #### [facility] (DEFAULT) [address] [place] [address] 42217 Mean Cell Hgb Conc 31.5 g/dL Normal 31.4-35.9 [facility] Comment on above: Performed By: #### C 7C, MGO #### [facility] (DEFAULT) [address] [place] [address] 38851 Platelet mean volume (Bld) [Entitic vol] 10.5 fL Normal 8.5-12.2 [facility] Comment on above: Performed By: #### José Quiñones, MGO #### [facility] (DEFAULT) [address] [place] [address] 86695 Platelets (Bld) [#/Vol] 362 10*3/uL Normal 150-393 [facility] Comment on above: Performed By: #### José 7C, MGO #### [facility] (DEFAULT) [address] [place] [address] 18451 RBC (Bld) [#/Vol] 3.55 10*6/uL Low 3.91-5.04 [facility] Comment on above: Performed By: #### José 7C, MGO #### [facility] (DEFAULT) [address] [place] [address] 63100 RBC Distribution 12.8 % Normal 10.8-14.9 [facility] Comment on above: Performed By: #### José Quiñones, MGO #### [facility] (DEFAULT) [address] [place] [address] 01707 WBC (Bld) [#/Vol] 7.66 10*3/uL Normal 3.99-11.19 [facility] Comment on above: Performed By: #### José 7C, MGO #### [facility] (DEFAULT) [address] [place] [address] 60798 GLUCOSE POCon 01-28-2024 Glucose [Mass/Vol] 234 mg/dL High 70 - 99 mg/dL [facility] Interpretation and review of laboratory results Abnormal [facility] POC Sample Type CAPBL [facility] Glucose [Mass/Vol] 193 mg/dL High 70 - 99 mg/dL [facility] Glucose [Mass/Vol] 185 mg/dL High 70 - 99 mg/dL [facility] Glucose [Mass/Vol] 195 mg/dL High 70 - 99 mg/dL [facility] Interpretation and review of laboratory results Abnormal [facility] POC [facility] Glucose [Mass/Vol] 202 mg/dL High 70 - 99 mg/dL [facility] Glucose [Mass/Vol] 258 mg/dL High 70 - 99 mg/dL [facility] MAGNESIUMon 01-28-2024 Interpretation and review of laboratory results Normal [facility] Magnesium [Mass/Vol] 1.9 mg/dL 1.6 - 2 .6 mg/dL [facility] Magnesium [Mass/Vol] 1.9 mg/dL Normal 1.6-2.6 [facility] Comment on above: Performed By: #### M GIOVANNI, M7, HFP #### [facility] (DEFAULT) [address] [place] [address] No Panel Informationon 01-27 Interpretation and review of laboratory results Abnormal [facility] POC Sample Type [facility] Interpretation and review of laboratory results Abnormal [facility] POC Sample Type [facility] BASIC METABOLIC PANELon 01-13 Anion gap [Moles/Vol] 9 mmol/L 7 - 17 mmol/L [facility] Calcium [Mass/Vol] 8.3 mg/dL Low 8.6 - 10. 5 mg/dL [facility] Chloride [Moles/Vol] 105 mmol/L 98 - 10 8 mmol/L [facility] CO2 [Moles/Vol] 28 mmol/L 21 - 31 mmol/L [facility] Creatinine [Mass/Vol] 1.03 mg/dL 0.50 - 1.20 mg/dL [facility] eGFR, CKD-EPI, Female 56 Low - PINF [facility] Glucose [Mass/Vol] 143 mg/dL High 70 - 99 mg/dL [facility] Osmolality Calc [Osmolality] [facility] Potassium [Moles/Vol] 3.9 mmol/L 3.5 - 5.0 mmol/L [facility] Sodium [Moles/Vol] 138 mmol/L 135 - 145 mmol/L [facility] Urea nitrogen [Mass/Vol] 12 mg/dL 7 - 25 mg/dL [facility] Urea nitrogen/Creatinine [Mass ratio] 12 mg/mg [facility] Anion gap [Moles/Vol] 9 mmol/L Normal 7-17 [facility] Comment on above: Performed By: #### T YPEC #### [facility] (DEFAULT) [address] [address] Calcium [Mass/Vol] 8.3 mg/dL Low 8.6-10.5 [facility] Comment on above: Performed By: #### T YPEC #### [facility] (DEFAULT) [address] [address] Chloride [Moles/Vol] 105 mmol/L Normal 98-108 [facility] Comment on above: Performed By: #### T YPEC #### [facility] (DEFAULT) [address] [place] [address] 39575 CO2 [Moles/Vol] 28 mmol/L Normal 21-31 [facility] Comment on above: Performed By: #### T YPEC #### [facility] (DEFAULT) [address] [address] Creatinine [Mass/Vol] 1.03 mg/dL Normal 0.50-1.20 [facility] Comment on above: Performed By: #### T YPEC #### [facility] (DEFAULT) [address] [address] GFR/1.73 sq M.predicted among non-blacks MDRD (S/P/Bld) [Vol rate/Area] 56 mL/min/{1.73_m2} Low >=60 [facility] Comment on above: Result Comment: Repo rted eGFR is based on the CKD-EPI 2021 equation using creatinine, age, and sex. Performed By: #### T YPEC #### [facility] (DEFAULT) [address] [place] [address]2619 Glucose [Mass/Vol] 143 mg/dL High 70-99 [facility] Comment on above: Performed By: #### T YPEC #### [facility] (DEFAULT) [address] [place] [address] 06530 Osmolality [Osmolality] 291 mosm/kg Normal 278-305 [facility] Comment on above: Performed By: #### T YPEC #### [facility] (DEFAULT) [address] [place] [address] 65877 Potassium [Moles/Vol] 3.9 mmol/L Normal 3.5-5.0 [facility] Comment on above: Performed By: #### T YPEC #### [facility] (DEFAULT) [address] [place] [address] 12603 Sodium [Moles/Vol] 138 mmol/L Normal 135-145 [facility] Comment on above: Performed By: #### T YPEC #### [facility] (DEFAULT) [address] [place] [address] 86256 Urea nitrogen [Mass/Vol] 12 mg/dL Normal 7-25 [facility] Comment on above: Performed By: #### T YPEC #### [facility] (DEFAULT) [address] [place] [address] 57627 Urea nitrogen/Creatinine [Mass ratio] 12 mg/mg Normal [facility] Comment on above: Performed By: #### T YPEC #### [facility] (DEFAULT) [address] [place] [address] 97155 GLUCOSE POCon 01-27-2024 Glucose [Mass/Vol] 129 mg/dL High 70 - 99 mg/dL [facility] Glucose [Mass/Vol] 149 mg/dL High 70 - 99 mg/dL [facility] Glucose [Mass/Vol] 174 mg/dL High 70 - 99 mg/dL [facility] Interpretation and review of laboratory results Abnormal [facility] POC Sample Type CAPBL [facility] Glucose [Mass/Vol] 206 mg/dL High 70 - 99 mg/dL [facility] Interpretation and review of laboratory results Abnormal [facility] POC Sample Type CAPBL [facility] MAGNESIUMon 01-27-2024 Magnesium [Mass/Vol] 1.5 mg/dL Low 1.6 - 2 .6 mg/dL [facility] Magnesium [Mass/Vol] 1.5 mg/dL Low 1.6-2.6 [facility] Comment on above: Performed By: #### T YPEC #### [facility] (DEFAULT) [address] [place] [address] No Panel Informationon 01-26 Interpretation and review of laboratory results Abnormal [facility] POC Sample Type CAPBL [facility] Interpretation and review of laboratory results Abnormal [facility] BASIC METABOLIC PANELOrdered By: Tessie Trevizo on 01-26-2024 Anion gap [Moles/Vol] 12 mmol/L 7 - 17 mmol/L [facility] Calcium [Mass/Vol] 8.3 mg/dL Low 8.6 - 10. 5 mg/dL [facility] Chloride [Moles/Vol] 103 mmol/L 98 - 10 8 mmol/L [facility] CO2 [Moles/Vol] 24 mmol/L 21 - 31 mmol/L [facility] Creatinine [Mass/Vol] 1.11 mg/dL 0.50 - 1.20 mg/dL [facility] eGFR, CKD-EPI, Female 52 Low - PINF [facility] Glucose [Mass/Vol] 222 mg/dL High 70 - 99 mg/dL [facility] Interpretation and review of laboratory results Abnormal [facility] Osmolality Calc [Osmolality] 293 [facility] Potassium [Moles/Vol] 4.1 mmol/L 3.5 - 5.0 mmol/L [facility] Sodium [Moles/Vol] 135 mmol/L 135 - 145 mmol/L [facility] Urea nitrogen [Mass/Vol] 16 mg/dL 7 - 25 mg/dL [facility] Urea nitrogen/Creatinine [Mass ratio] 14 mg/mg [facility] CBC,PLATELETSon 01-26-2024 Hematocrit (Bld) [Volume fraction] 29.3 % Low 34.9-44.3 [facility] Comment on above: Performed By: #### T YPEC #### [facility] (DEFAULT) [address] [address] Hemoglobin (Bld) [Mass/Vol] 9.3 g/dL Low 11.4-15.2 [facility] Comment on above: Performed By: #### T YPEC #### [facility] (DEFAULT) [address] [address] MCV (RBC) [Entitic vol] 88.3 fL Normal 79.6-97.7 [facility] Comment on above: Performed By: #### T YPEC #### [facility] (DEFAULT) [address] [address] Mean Cell Hgb 28.0 pg Normal 25.9-33.9 [facility] Comment on above: Performed By: #### T YPEC #### [facility] (DEFAULT) [address] [address] Mean Cell Hgb Conc 31.7 g/dL Normal 31.4-35.9 [facility] Comment on above: Performed By: #### T YPEC #### [facility] (DEFAULT) [address] [address] Platelet mean volume (Bld) [Entitic vol] 11.1 fL Normal 8.5-12.2 [facility] Comment on above: Performed By: #### T YPEC #### [facility] (DEFAULT) [address] [place] [address]709 Platelets (Bld) [#/Vol] 297 10*3/uL Normal 150-393 [facility] Comment on above: Performed By: #### T YPEC #### [facility] (DEFAULT) [address] [place] [address] 12107 RBC (Bld) [#/Vol] 3.32 10*6/uL Low 3.91-5.04 [facility] Comment on above: Performed By: #### T YPEC #### [facility] (DEFAULT) [address] [place] [address] 37642 RBC Distribution 12.9 % Normal 10.8-14.9 [facility] Comment on above: Performed By: #### T YPEC #### [facility] (DEFAULT) [address] [place] [address]237 WBC (Bld) [#/Vol] 6.83 10*3/uL Normal 3.99-11.19 [facility] Comment on above: Performed By: #### T YPEC #### [facility] (DEFAULT) [address] [place] [address]3785 Erythrocyte distribution width (RBC) [Ratio] 12.9 % 10.8 - 14.9 % [facility] Hematocrit (Bld) [Volume fraction] 29.3 % Low 34.9 - 44.3 % [facility] Hemoglobin (Bld) [Mass/Vol] 9.3 g/dL Low 11.4 - 15.2 g/dL [facility] Interpretation and review of laboratory results Abnormal [facility] MCH (RBC) [Entitic mass] 28.0 pg 25.9 - 33.9 pg [facility] MCHC (RBC) [Mass/Vol] 31.7 g/dL 31.4 - 35.9 g/dL [facility] MCV (RBC) [Entitic vol] 88.3 fL 79.6 - 97.7 fL [facility] Platelet mean volume (Bld) [Entitic vol] 11.1 fL 8.5 - 12.2 fL [facility] Platelets (Bld) [#/Vol] 297 10*3/uL 150 - 393 K/uL [facility] RBC (Bld) [#/Vol] 3.32 10*6/uL Low [facility] WBC (Bld) [#/Vol] 6.83 10*3/uL 3.99 - 11. 19 K/uL [facility] GLUCOSE POCon 01-26-2024 Glucose [Mass/Vol] 178 mg/dL High 70 - 99 mg/dL [facility] Interpretation and review of laboratory results Abnormal [facility] POC Sample Type CAPBL [facility] Glucose [Mass/Vol] 203 mg/dL High 70 - 99 mg/dL [facility] Interpretation and review of laboratory results Abnormal [facility] POC Sample Type CAPBL [facility] MAGNESIUMon 01-26-2024 Interpretation and review of laboratory results Normal [facility] Magnesium [Mass/Vol] 1.6 mg/dL 1.6 - 2 .6 mg/dL [facility] No Panel InformationOrdered By: Tessie Trevizo on 01-26-2024 [facility] XR ABDOMEN 1 VIEW PORTABLEon 01-26-2024 XR ABDOMEN 1 VIEW PORTABLE EXAM: XR ABDOMEN 1 VIEW PORTABLE, 01/26/2024 05:51 AM COMPARISON: Abdominal radiograph from January 25, 2024. CLINICAL INDICATIONS: serial exams, s/p laporotomy FINDINGS: Tubes: Drainage catheter in the pelvis. Leonrad catheter in the bladder. Bowel gas pattern: Stable dilation most of the small bowel keeping with ileus. Colon is normal in caliber. No visible free air. Abnormal calcifications/Radiopaciti es: None. Bones: No acute abnormality. Sigmoid curvature of the thoracolumbar spine. Partially imaged right femoral fixation hardware. Other findings: None. IMPRESSION: Persistent ileus. Normal [facility] XR Abdomen Single viewon RADIOLOGY RADIOLOGY [facility] Radiology Study observation (narrative) [facility] XR Abdomen Single viewOrdere d By: Nichole Burnett on 01-26-2024 [facility] Work Phone: BASIC METABOLIC PANELon 01-13 Anion gap [Moles/Vol] 12 mmol/L Normal 7-17 [facility] Comment on above: Performed By: #### SILVIA MALONEY7, HFP #### [facility] (DEFAULT) [address] [place] [address] 13137 Calcium [Mass/Vol] 8.3 mg/dL Low 8.6-10.5 [facility] Comment on above: Performed By: #### LYN MALONEY, HFP #### [facility] (DEFAULT) [address] [place] [address] 25759 Chloride [Moles/Vol] 103 mmol/L Normal 98-108 [facility] Comment on above: Performed By: #### SILVIA MALONEY7, HFP #### [facility] (DEFAULT) [address] [place] [address] 69197 CO2 [Moles/Vol] 24 mmol/L Normal 21-31 [facility] Comment on above: Performed By: #### LYN MALONEY, HFP #### [facility] (DEFAULT) [address] [place] [address] 03877 Creatinine [Mass/Vol] 1.11 mg/dL Normal 0.50-1.20 [facility] Comment on above: Performed By: #### SILVIA MALONEY7, HFP #### [facility] (DEFAULT) [address] [place] [address] 24835 GFR/1.73 sq M.predicted among non-blacks MDRD (S/P/Bld) [Vol rate/Area] 52 mL/min/{1.73_m2} Low >=60 [facility] Comment on above: Result Comment: Repo rted eGFR is based on the CKD-EPI 2020 equation using creatinine, age, and sex. Performed By: #### LYN MALONEY, HFP #### [facility] (DEFAULT) [address] [place] [address] 55436 Glucose [Mass/Vol] 222 mg/dL High 70-99 [facility] Comment on above: Performed By: #### LYN MALONEY, HFP #### [facility] (DEFAULT) [address] [place] [address] 85680 Osmolality [Osmolality] 293 mosm/kg Normal 278-305 [facility] Comment on above: Performed By: #### LYN MALONEY, HFP #### [facility] (DEFAULT) [address] [place] [address] 35346 Potassium [Moles/Vol] 4.1 mmol/L Normal 3.5-5.0 [facility] Comment on above: Performed By: #### LYN MALONEY, HFP #### [facility] (DEFAULT) [address] [place] [address] 44481 Sodium [Moles/Vol] 135 mmol/L Normal 135-145 [facility] Comment on above: Performed By: #### LYN MALONEY, HFP #### [facility] (DEFAULT) [address] [place] [address] 32785 Urea nitrogen [Mass/Vol] 16 mg/dL Normal 7-25 [facility] Comment on above: Performed By: #### LYN MALONEY, HFP #### [facility] (DEFAULT) [address] [place] [address] 70335 Urea nitrogen/Creatinine [Mass ratio] 14 mg/mg Normal [facility] Comment on above: Performed By: #### LYN MALONEY, HFP #### [facility] (DEFAULT) [address] [place] [address] 55532 Anion gap [Moles/Vol] 12 mmol/L 7 - 17 mmol/L [facility] Calcium [Mass/Vol] 8.6 mg/dL 8.6 - 10. 5 mg/dL [facility] Chloride [Moles/Vol] 100 mmol/L 98 - 10 8 mmol/L [facility] CO2 [Moles/Vol] 25 mmol/L 21 - 31 mmol/L [facility] Creatinine [Mass/Vol] 1.11 mg/dL 0.50 - 1.20 mg/dL [facility] eGFR, CKD-EPI, Female 52 Low - PINF [facility] Glucose [Mass/Vol] 177 mg/dL High 70 - 99 mg/dL [facility] Interpretation and review of laboratory results Abnormal [facility] Osmolality Calc [Osmolality] 288 [facility] Potassium [Moles/Vol] 4.4 mmol/L 3.5 - 5.0 mmol/L [facility] Sodium [Moles/Vol] 133 mmol/L Low 135 - 145 mmol/L [facility] Urea nitrogen [Mass/Vol] 19 mg/dL 7 - 25 mg/dL [facility] Urea nitrogen/Creatinine [Mass ratio] 17 mg/mg [facility] Anion gap [Moles/Vol] 12 mmol/L Normal 7-17 [facility] Comment on above: Performed By: #### S URGP #### [facility] (DEFAULT) [address] [place] [address] Calcium [Mass/Vol] 8.6 mg/dL Normal 8.6-10.5 [facility] Comment on above: Performed By: #### S URGP #### [facility] (DEFAULT) [address] [place] [address] Chloride [Moles/Vol] 100 mmol/L Normal 98-108 [facility] Comment on above: Performed By: #### S URGP #### [facility] (DEFAULT) [address] [place] [address] CO2 [Moles/Vol] 25 mmol/L Normal 21-31 [facility] Comment on above: Performed By: #### S URGP #### [facility] (DEFAULT) [address] [place] [address] 53132 Creatinine [Mass/Vol] 1.11 mg/dL Normal 0.50-1.20 [facility] Comment on above: Performed By: #### S URGP #### [facility] (DEFAULT) [address] [place] [address] 01226 GFR/1.73 sq M.predicted among non-blacks MDRD (S/P/Bld) [Vol rate/Area] 52 mL/min/{1.73_m2} Low >=60 [facility] Comment on above: Result Comment: Repo rted eGFR is based on the CKD-EPI 2020 equation using creatinine, age, and sex. Performed By: #### S URGP #### [facility] (DEFAULT) [address] [address] Glucose [Mass/Vol] 177 mg/dL High 70-99 [facility] Comment on above: Performed By: #### S URGP #### [facility] (DEFAULT) [address] [address] Osmolality [Osmolality] 288 mosm/kg Normal 278-305 [facility] Comment on above: Performed By: #### S URGP #### [facility] (DEFAULT) [address] [address] Potassium [Moles/Vol] 4.4 mmol/L Normal 3.5-5.0 [facility] Comment on above: Performed By: #### S URGP #### [facility] (DEFAULT) [address] [address] Sodium [Moles/Vol] 133 mmol/L Low 135-145 [facility] Comment on above: Performed By: #### S URGP #### [facility] (DEFAULT) [address] [place] [address] 09905 Urea nitrogen [Mass/Vol] 19 mg/dL Normal 7-25 [facility] Comment on above: Performed By: #### S URGP #### [facility] (DEFAULT) [address] [place] [address] 66464 Urea nitrogen/Creatinine [Mass ratio] 17 mg/mg Normal [facility] Comment on above: Performed By: #### S URGP #### [facility] (DEFAULT) [address] [place] [address] GLUCOSE POCon 01-25-2024 Glucose [Mass/Vol] 361 mg/dL High 70 - 99 mg/dL [facility] Interpretation and review of laboratory results Abnormal [facility] POC Sample Type CAPBL [facility] Glucose [Mass/Vol] 182 mg/dL High 70 - 99 mg/dL [facility] Glucose [Mass/Vol] 213 mg/dL High 70 - 99 mg/dL [facility] Glucose [Mass/Vol] 204 mg/dL High 70 - 99 mg/dL [facility] Glucose [Mass/Vol] 222 mg/dL High 70 - 99 mg/dL [facility] Glucose [Mass/Vol] 219 mg/dL High 70 - 99 mg/dL [facility] MAGNESIUMon 01-25-2024 Magnesium [Mass/Vol] 1.6 mg/dL Normal 1.6-2.6 [facility] Comment on above: Performed By: #### M GIOVANNI, CHM7, HFP #### [facility] (DEFAULT) [address] [place] [address] 09902 Interpretation and review of laboratory results Normal [facility] Magnesium [Mass/Vol] 1.7 mg/dL 1.6 - 2 .6 mg/dL [facility] Magnesium [Mass/Vol] 1.7 mg/dL Normal 1.6-2.6 [facility] Comment on above: Performed By: #### S URGP #### [facility] (DEFAULT) [address] [place] [address] 31358 No Panel Informationon 01-24 Interpretation and review of laboratory results Abnormal [facility] POC Sample Type CAPBL [facility] 1 VIEW PORTABLEon 01-25-2024 XR [...] Partially imaged right femoral fixation hardware. Normal [facility] XR Abdomen Single viewon RADIOLOGY RADIOLOGY [facility] Radiology Study observation (narrative) [facility] XR Abdomen Single viewOrdere d By: Kalen Mayberry on 01-25-2024 [facility] Work Phone: BASIC METABOLIC PANELon 01-13 Anion gap [Moles/Vol] 16 mmol/L 7 - 17 mmol/L [facility] Calcium [Mass/Vol] 8.7 mg/dL 8.6 - 10. 5 mg/dL [facility] Chloride [Moles/Vol] 97 mmol/L Low 98 - 10 8 mmol/L [facility] CO2 [Moles/Vol] 23 mmol/L 21 - 31 mmol/L [facility] Creatinine [Mass/Vol] 1.24 mg/dL High 0.50 - 1.20 mg/dL [facility] eGFR, CKD-EPI, Female 45 Low - PINF [facility] Glucose [Mass/Vol] 122 mg/dL High 70 - 99 mg/dL [facility] Interpretation and review of laboratory results Abnormal [facility] Osmolality Calc [Osmolality] 283 [facility] Potassium [Moles/Vol] 4.8 mmol/L 3.5 - 5.0 mmol/L [facility] Sodium [Moles/Vol] 131 mmol/L Low 135 - 145 mmol/L [facility] Urea nitrogen [Mass/Vol] 23 mg/dL 7 - 25 mg/dL [facility] Urea nitrogen/Creatinine [Mass ratio] 19 mg/mg [facility] Anion gap [Moles/Vol] 16 mmol/L Normal 7-17 [facility] Comment on above: Performed By: #### José 7C, MGO #### [facility] (DEFAULT) [address] [place] [address] 89907 Calcium [Mass/Vol] 8.7 mg/dL Normal 8.6-10.5 [facility] Comment on above: Performed By: #### José 7C, MGO #### [facility] (DEFAULT) [address] [place] [address] 62996 Chloride [Moles/Vol] 97 mmol/L Low 98-108 [facility] Comment on above: Performed By: #### José 7C, MGO #### [facility] (DEFAULT) [address] [place] [address] 92612 CO2 [Moles/Vol] 23 mmol/L Normal 21-31 [facility] Comment on above: Performed By: #### José 7C, MGO #### [facility] (DEFAULT) [address] [place] [address] 52301 Creatinine [Mass/Vol] 1.24 mg/dL High 0.50-1.20 [facility] Comment on above: Performed By: #### José 7C, MGO #### [facility] (DEFAULT) [address] [place] [address] 88835 GFR/1.73 sq M.predicted among non-blacks MDRD (S/P/Bld) [Vol rate/Area] 45 mL/min/{1.73_m2} Low >=60 [facility] Comment on above: Result Comment: Repo rted eGFR is based on the CKD-EPI 2020 equation using creatinine, age, and sex. Performed By: #### José 7C, MGO #### [facility] (DEFAULT) [address] [place] [address] 45995 Glucose [Mass/Vol] 122 mg/dL High 70-99 [facility] Comment on above: Performed By: #### José 7C, MGO #### [facility] (DEFAULT) [address] [place] [address] 97417 Osmolality [Osmolality] 283 mosm/kg Normal 278-305 [facility] Comment on above: Performed By: #### José 7C, MGO #### [facility] (DEFAULT) [address] [place] [address] 46247 Potassium [Moles/Vol] 4.8 mmol/L Normal 3.5-5.0 [facility] Comment on above: Performed By: #### José 7C, MGO #### [facility] (DEFAULT) [address] [place] [address] 01353 Sodium [Moles/Vol] 131 mmol/L Low 135-145 [facility] Comment on above: Performed By: #### José 7C, MGO #### [facility] (DEFAULT) [address] [place] [address] 44859 Urea nitrogen [Mass/Vol] 23 mg/dL Normal 7-25 [facility] Comment on above: Performed By: #### José 7C, MGO #### [facility] (DEFAULT) [address] [place] [address] 64095 Urea nitrogen/Creatinine [Mass ratio] 19 mg/mg Normal [facility] Comment on above: Performed By: #### José 7C, MGO #### [facility] (DEFAULT) [address] [place] [address] 70198 CBC,PLATELETSon 01-24-2024 Erythrocyte distribution width (RBC) [Ratio] 13.0 % 10.8 - 14.9 % [facility] Hematocrit (Bld) [Volume fraction] 31.8 % Low 34.9 - 44.3 % [facility] Hemoglobin (Bld) [Mass/Vol] 10.0 g/dL Low 11.4 - 15.2 g/dL [facility] Interpretation and review of laboratory results Abnormal [facility] MCH (RBC) [Entitic mass] 27.7 pg 25.9 - 33.9 pg [facility] MCHC (RBC) [Mass/Vol] 31.4 g/dL 31.4 - 35.9 g/dL [facility] MCV (RBC) [Entitic vol] 88.1 fL 79.6 - 97.7 fL [facility] Platelet mean volume (Bld) [Entitic vol] 11.3 fL 8.5 - 12.2 fL [facility] Platelets (Bld) [#/Vol] 263 10*3/uL 150 - 393 K/uL [facility] RBC (Bld) [#/Vol] 3.61 10*6/uL Low [facility] WBC (Bld) [#/Vol] 10.65 10*3/uL 3.99 - 11 .19 K/uL [facility] Hematocrit (Bld) [Volume fraction] 31.8 % Low 34.9-44.3 [facility] Comment on above: Performed By: #### LYN MALONEY, HFP #### [facility] (DEFAULT) [address] [address] Hemoglobin (Bld) [Mass/Vol] 10.0 g/dL Low 11.4-15.2 [facility] Comment on above: Performed By: #### LYN MALONEY, HFP #### [facility] (DEFAULT) [address] [address] MCV (RBC) [Entitic vol] 88.1 fL Normal 79.6-97.7 [facility] Comment on above: Performed By: #### LYN MALONEY, HFP #### [facility] (DEFAULT) [address] [place] [address] 17911 Mean Cell Hgb 27.7 pg Normal 25.9-33.9 [facility] Comment on above: Performed By: #### LYN MALONEY, HFP #### [facility] (DEFAULT) [address] [place] [address] 67842 Mean Cell Hgb Conc 31.4 g/dL Normal 31.4-35.9 [facility] Comment on above: Performed By: #### LYN MALONEY, HFP #### [facility] (DEFAULT) [address] [place] [address] 54155 Platelet mean volume (Bld) [Entitic vol] 11.3 fL Normal 8.5-12.2 [facility] Comment on above: Performed By: #### LYN MALONEY, HFP #### [facility] (DEFAULT) [address] [place] [address] 91179 Platelets (Bld) [#/Vol] 263 10*3/uL Normal 150-393 [facility] Comment on above: Performed By: #### LYN MALONEY, HFP #### [facility] (DEFAULT) [address] [place] [address] 08197 RBC (Bld) [#/Vol] 3.61 10*6/uL Low 3.91-5.04 [facility] Comment on above: Performed By: #### LYN MALONEY, HFP #### [facility] (DEFAULT) [address] [place] [address] 32175 RBC Distribution 13.0 % Normal 10.8-14.9 [facility] Comment on above: Performed By: #### LYN MALONEY, HFP #### [facility] (DEFAULT) [address] [place] [address] 08900 WBC (Bld) [#/Vol] 10.65 10*3/uL Normal 3.99-11.19 [facility] Comment on above: Performed By: #### LYN MALONYE, HFP #### [facility] (DEFAULT) [address] [place] [address] GLUCOSE POCon 01-24-2024 Glucose [Mass/Vol] 108 mg/dL High 70 - 99 mg/dL [facility] Interpretation and review of laboratory results Abnormal [facility] POC [facility] Glucose [Mass/Vol] 103 mg/dL High 70 - 99 mg/dL [facility] Interpretation and review of laboratory results Abnormal [facility] POC Sample Type CAPBL [facility] Glucose [Mass/Vol] 117 mg/dL High 70 - 99 mg/dL [facility] Interpretation and review of laboratory results Abnormal [facility] POC Sample Type CAPBL [facility] Glucose [Mass/Vol] 112 mg/dL High 70 - 99 mg/dL [facility] Interpretation and review of laboratory results Abnormal [facility] POC Sample Type CAPBL [facility] MAGNESIUMon 01-24-2024 Interpretation and review of laboratory results Normal [facility] Magnesium [Mass/Vol] 2.0 mg/dL 1.6 - 2 .6 mg/dL [facility] Magnesium [Mass/Vol] 2.0 mg/dL Normal 1.6-2.6 [facility] Comment on above: Performed By: #### C 7C, MGO #### [facility] (DEFAULT) [address] [place] [address] XR ABDOMEN 1 VIEWon 01-24-20 24 XR [...] which could indicate obstruction versus ileus. Normal [facility] XR Abdomen Single viewon RADIOLOGY RADIOLOGY [facility] Radiology Study observation (narrative) [facility] XR Abdomen Single viewOrdere d By: Charlie Olivera on 01-24-2024 [facility] BASIC METABOLIC PANELon 01-13 Anion gap [Moles/Vol] 10 mmol/L 7 - 17 mmol/L [facility] Calcium [Mass/Vol] 6.2 mg/dL Low 8.6 - 10. 5 mg/dL [facility] Chloride [Moles/Vol] 111 mmol/L High 98 - 10 8 mmol/L [facility] CO2 [Moles/Vol] 20 mmol/L Low 21 - 31 mmol/L [facility] Creatinine [Mass/Vol] 0.95 mg/dL 0.50 - 1.20 mg/dL [facility] eGFR, CKD-EPI, Female 62 - PINF [facility] Glucose [Mass/Vol] 105 mg/dL High 70 - 99 mg/dL [facility] Interpretation and review of laboratory results Abnormal [facility] Osmolality Calc [Osmolality] 291 [facility] Potassium [Moles/Vol] 3.4 mmol/L Low 3.5 - 5.0 mmol/L [facility] Sodium [Moles/Vol] 138 mmol/L 135 - 145 mmol/L [facility] Urea nitrogen [Mass/Vol] 20 mg/dL 7 - 25 mg/dL [facility] Urea nitrogen/Creatinine [Mass ratio] 21 mg/mg [facility] Anion gap [Moles/Vol] 10 mmol/L Normal 7-17 [facility] Comment on above: Performed By: #### José 7C, MGO #### [facility] (DEFAULT) [address] [place] [address] 40798 Calcium [Mass/Vol] 6.2 mg/dL Low 8.6-10.5 [facility] Comment on above: Performed By: #### José 7C, MGO #### [facility] (DEFAULT) [address] [place] [address] 56587 Chloride [Moles/Vol] 111 mmol/L High 98-108 [facility] Comment on above: Performed By: #### José 7C, MGO #### [facility] (DEFAULT) [address] [place] [address] 11644 CO2 [Moles/Vol] 20 mmol/L Low 21-31 [facility] Comment on above: Performed By: #### José 7C, MGO #### [facility] (DEFAULT) [address] [place] [address] 66431 Creatinine [Mass/Vol] 0.95 mg/dL Normal 0.50-1.20 [facility] Comment on above: Performed By: #### José 7C, MGO #### [facility] (DEFAULT) [address] [place] [address] 46954 GFR/1.73 sq M.predicted among non-blacks MDRD (S/P/Bld) [Vol rate/Area] 62 mL/min/{1.73_m2} Normal >=60 [facility] Comment on above: Result Comment: Repo rted eGFR is based on the CKD-EPI 2020 equation using creatinine, age, and sex. Performed By: #### José 7C, MGO #### [facility] (DEFAULT) [address] [place] [address] 48324 Glucose [Mass/Vol] 105 mg/dL High 70-99 [facility] Comment on above: Performed By: #### C 7C, MGO #### [facility] (DEFAULT) [address] [place] [address] 38661 Osmolality [Osmolality] 291 mosm/kg Normal 278-305 [facility] Comment on above: Performed By: #### C 7C, MGO #### [facility] (DEFAULT) [address] [place] [address] 50603 Potassium [Moles/Vol] 3.4 mmol/L Low 3.5-5.0 [facility] Comment on above: Performed By: #### C 7C, MGO #### [facility] (DEFAULT) [address] [place] [address] 73024 Sodium [Moles/Vol] 138 mmol/L Normal 135-145 [facility] Comment on above: Performed By: #### José 7C, MGO #### [facility] (DEFAULT) [address] [place] [address] 33065 Urea nitrogen [Mass/Vol] 20 mg/dL Normal 7-25 [facility] Comment on above: Performed By: #### José 7C, MGO #### [facility] (DEFAULT) [address] [place] [address] 35570 Urea nitrogen/Creatinine [Mass ratio] 21 mg/mg Normal [facility] Comment on above: Performed By: #### C 7C, MGO #### [facility] (DEFAULT) [address] [place] [address] 24153 GLUCOSE POCon 01-23-2024 Glucose [Mass/Vol] 117 mg/dL High 70 - 99 mg/dL [facility] Interpretation and review of laboratory results Abnormal [facility] POC Sample Type CAPBL [facility] Glucose [Mass/Vol] 130 mg/dL High 70 - 99 mg/dL [facility] Interpretation and review of laboratory results Abnormal [facility] POC Sample Type CAPBL [facility] Glucose [Mass/Vol] 119 mg/dL High 70 - 99 mg/dL [facility] Interpretation and review of laboratory results Abnormal [facility] POC Sample Type CAPBL [facility] Glucose [Mass/Vol] 135 mg/dL High 70 - 99 mg/dL [facility] Interpretation and review of laboratory results Abnormal [facility] POC Sample Type CAPBL [facility] MAGNESIUMon 01-23-2024 Interpretation and review of laboratory results Abnormal [facility] Magnesium [Mass/Vol] 1.2 mg/dL Low 1.6 - 2 .6 mg/dL [facility] Magnesium [Mass/Vol] 1.2 mg/dL Low 1.6-2.6 [facility] Comment on above: Performed By: #### C 7C, MGO #### [facility] (DEFAULT) [address] [place] [address] ABORH TYPE RECONFIRMATIONon 01-22-2024 ABO/RH(D) TYPE Positive [facility] ABO/RH(D) TYPE Positive Normal [facility] Comment on above: Performed By: #### T YPEC #### [facility] (DEFAULT) [address] [address] BASIC METABOLIC PANELon Anion gap [Moles/Vol] 16 mmol/L 7 - 17 mmol/L [facility] Calcium [Mass/Vol] 9.4 mg/dL 8.6 - 10. 5 mg/dL [facility] Chloride [Moles/Vol] 95 mmol/L Low 98 - 10 8 mmol/L [facility] CO2 [Moles/Vol] 26 mmol/L 21 - 31 mmol/L [facility] Creatinine [Mass/Vol] 1.17 mg/dL 0.50 - 1.20 mg/dL [facility] eGFR, CKD-EPI, Female 48 Low - PINF [facility] Glucose [Mass/Vol] 150 mg/dL High 70 - 99 mg/dL [facility] Interpretation and review of laboratory results Abnormal [facility] Osmolality Calc [Osmolality] 287 [facility] Potassium [Moles/Vol] 3.8 mmol/L 3.5 - 5.0 mmol/L [facility] Sodium [Moles/Vol] 133 mmol/L Low 135 - 145 mmol/L [facility] Urea nitrogen [Mass/Vol] 24 mg/dL 7 - 25 mg/dL [facility] Urea nitrogen/Creatinine [Mass ratio] 21 mg/mg [facility] Anion gap [Moles/Vol] 16 mmol/L Normal 7-17 [facility] Comment on above: Performed By: #### LYN MALONEY, HFP #### [facility] (DEFAULT) [address] [place] [address] Calcium [Mass/Vol] 9.4 mg/dL Normal 8.6-10.5 [facility] Comment on above: Performed By: #### LYN MALONEY, HFP #### [facility] (DEFAULT) [address] [place] [address] Chloride [Moles/Vol] 95 mmol/L Low 98-108 [facility] Comment on above: Performed By: #### LYN MALONEY, HFP #### [facility] (DEFAULT) [address] [place] [address] CO2 [Moles/Vol] 26 mmol/L Normal 21-31 [facility] Comment on above: Performed By: #### LYN MALONEY, HFP #### [facility] (DEFAULT) [address] [place] [address] Creatinine [Mass/Vol] 1.17 mg/dL Normal 0.50-1.20 [facility] Comment on above: Performed By: #### LYN MALONEY, HFP #### [facility] (DEFAULT) [address] [place] [address] GFR/1.73 sq M.predicted among non-blacks MDRD (S/P/Bld) [Vol rate/Area] 48 mL/min/{1.73_m2} Low >=60 [facility] Comment on above: Result Comment: Repo rted eGFR is based on the CKD-EPI 2020 equation using creatinine, age, and sex. Performed By: #### LYN MALONEY, HFP #### [facility] (DEFAULT) [address] [place] [address] Glucose [Mass/Vol] 150 mg/dL High 70-99 [facility] Comment on above: Performed By: #### LYN MALONEY, HFP #### [facility] (DEFAULT) [address] [place] [address] Osmolality [Osmolality] 287 mosm/kg Normal 278-305 [facility] Comment on above: Performed By: #### LYN MALONEY, HFP #### [facility] (DEFAULT) [address] [place] [address] Potassium [Moles/Vol] 3.8 mmol/L Normal 3.5-5.0 [facility] Comment on above: Performed By: #### LYN MALONEY, HFP #### [facility] (DEFAULT) [address] [place] [address] Sodium [Moles/Vol] 133 mmol/L Low 135-145 [facility] Comment on above: Performed By: #### LYN MALONEY, HFP #### [facility] (DEFAULT) [address] [place] [address] Urea nitrogen [Mass/Vol] 24 mg/dL Normal 7-25 [facility] Comment on above: Performed By: #### LYN MALONEY, HFP #### [facility] (DEFAULT) [address] [place] [address] Urea nitrogen/Creatinine [Mass ratio] 21 mg/mg Normal [facility] Comment on above: Performed By: #### M GO, CHM7, HFP #### [facility] (DEFAULT) [address] [place] [address] CARDIAC RHYTHM (SCANNED)on 0 01-22-2024 [facility] CBC,PLATELETSon 01-22-2024 Erythrocyte distribution width (RBC) [Ratio] 13.1 % 10.8 - 14.9 % [facility] Hematocrit (Bld) [Volume fraction] 32.9 % Low 34.9 - 44.3 % [facility] Hemoglobin (Bld) [Mass/Vol] 10.3 g/dL Low 11.4 - 15.2 g/dL [facility] Interpretation and review of laboratory results Abnormal [facility] MCH (RBC) [Entitic mass] 27.6 pg 25.9 - 33.9 pg [facility] MCHC (RBC) [Mass/Vol] 31.3 g/dL Low 31.4 - 35.9 g/dL [facility] MCV (RBC) [Entitic vol] 88.2 fL 79.6 - 97.7 fL [facility] Platelet mean volume (Bld) [Entitic vol] 11.0 fL 8.5 - 12.2 fL [facility] Platelets (Bld) [#/Vol] 256 10*3/uL 150 - 393 K/uL [facility] RBC (Bld) [#/Vol] 3.73 10*6/uL Low [facility] WBC (Bld) [#/Vol] 8.11 10*3/uL 3.99 - 11. 19 K/uL [facility] Hematocrit (Bld) [Volume fraction] 32.9 % Low 34.9-44.3 [facility] Comment on above: Performed By: #### T YPEC #### [facility] (DEFAULT) [address] [place] [address] Hemoglobin (Bld) [Mass/Vol] 10.3 g/dL Low 11.4-15.2 [facility] Comment on above: Performed By: #### T YPEC #### [facility] (DEFAULT) [address] [address] MCV (RBC) [Entitic vol] 88.2 fL Normal 79.6-97.7 [facility] Comment on above: Performed By: #### T YPEC #### [facility] (DEFAULT) [address] [address] Mean Cell Hgb 27.6 pg Normal 25.9-33.9 [facility] Comment on above: Performed By: #### T YPEC #### [facility] (DEFAULT) [address] [address] Mean Cell Hgb Conc 31.3 g/dL Low 31.4-35.9 [facility] Comment on above: Performed By: #### T YPEC #### [facility] (DEFAULT) [address] [address] Platelet mean volume (Bld) [Entitic vol] 11.0 fL Normal 8.5-12.2 [facility] Comment on above: Performed By: #### T YPEC #### [facility] (DEFAULT) [address] [address] Platelets (Bld) [#/Vol] 256 10*3/uL Normal 150-393 [facility] Comment on above: Performed By: #### T YPEC #### [facility] (DEFAULT) [address] [address] RBC (Bld) [#/Vol] 3.73 10*6/uL Low 3.91-5.04 [facility] Comment on above: Performed By: #### T YPEC #### [facility] (DEFAULT) [address] [address] RBC Distribution 13.1 % Normal 10.8-14.9 [facility] Comment on above: Performed By: #### T YPEC #### [facility] (DEFAULT) [address] [place] [address] WBC (Bld) [#/Vol] 8.11 10*3/uL Normal 3.99-11.19 [facility] Comment on above: Performed By: #### T YPEC #### [facility] (DEFAULT) [address] [place] [address] CT ABDOMEN/PELVIS WITH CONTR Monse 01-22-2024 CT [...] have reviewed and approved this report. Normal [facility] CT Abdomen and Pelvis W cont rast Cherelle 01-22-2024 RAD[facility] Rad[facility] Study observation (narrative) [facility] CT Abdomen and Pelvis W cont rast IVOrdered By: Doron Rodrigez on 01-22-2024 [facility] ENCEPHALOPATHY, AUTOIMMUNE E VALUATION, CSFon 01-22-2024 AMPAR2 IgG Cell binding assay immunofluorescent assay Ql (CSF) Negative Negative [facility] Amphiphysin Ab IF Ql (CSF) Negative Negative [facility] Annotation comment [Interpretation] Narrative None. [facility] Contactin-associated protein 2 IgG Cell binding assay immunofluorescent assay Ql (CSF) Negative Negative [facility] CV2 Ab IF Ql (CSF) Negative Negative [facility] Dipeptidyl aminopeptidase-like protein 6 IgG Cell binding assay immunofluorescent assay Ql (CSF) Negative Negative [facility] GABABR IgG Cell binding assay immunofluorescent assay Ql (CSF) Negative Negative [facility] Glial fibrillary acidic protein alpha subunit IgG IF Ql (CSF) Negative Negative [facility] Glial nuclear type 1 Ab IF Ql (CSF) Negative Negative [facility] Glutamate decarboxylase 65 IgG+IgM IA (CSF) [Moles/Vol] 0.00 nmol/L NINF - 0.02 nmol/L [facility] IgLON5 CBA, CSF Negative Negative [facility] High Pressure Firer review Roger (Unsp spec) [Interp] SEE COMMENTS [facility] Leucine-rich glioma-inactivated protein 1 IgG Cell binding assay immunofluorescent assay Ql (CSF) Negative Negative [facility] Metabotropic glutamate receptor 1 IgG IF Ql (CSF) Negative Negative [facility] Neurochondrin IFA, CSF Negative Negative [facility] Neuronal nuclear type 1 Ab IF Ql (CSF) Negative Negative [facility] Neuronal nuclear type 2 Ab IF Ql (CSF) Negative Negative [facility] Neuronal nuclear type 3 Ab IF Ql (CSF) Negative Negative [facility] NIF IFA, CSF Negative Negative [facility] NMDAR subunit 1 IgG Cell binding assay immunofluorescent assay Ql (CSF) Negative Negative [facility] RDA-1 Ab IF Ql (CSF) Negative Negative [facility] RDA-2 Ab IF Ql (CSF) Negative Negative [facility] RDA-Tr Ab IF Ql (CSF) Negative Negative [facility] PDE10A AB IFA, CSF Negative Negative [facility] IFA, CSF Negative Negative [facility] [employer]-Containing Protein 46 IgG IFA, CSF Negative Negative [facility] GLUCOSE POCon 01-22-2024 Glucose [Mass/Vol] 156 mg/dL High 70 - 99 mg/dL [facility] Interpretation and review of laboratory results Abnormal [facility] POC Sample Type [facility] Glucose [Mass/Vol] 139 mg/dL High 70 - 99 mg/dL [facility] Interpretation and review of laboratory results Abnormal [facility] POC Sample Type [facility]BL [facility] Glucose [Mass/Vol] 156 mg/dL High 70 - 99 mg/dL [facility] Interpretation and review of laboratory results Abnormal [facility] POC Sample Type [facility] Glucose [Mass/Vol] 120 mg/dL High 70 - 99 mg/dL [facility] Interpretation and review of laboratory results Abnormal [facility] POC Sample Type [facility] Glucose [Mass/Vol] 149 mg/dL High 70 - 99 mg/dL [facility] Interpretation and review of laboratory results Abnormal [facility] POC Sample Type CAPBL [facility] Glucose [Mass/Vol] 141 mg/dL High 70 - 99 mg/dL [facility] Interpretation and review of laboratory results Abnormal [facility] POC Sample Type CAPBL [facility] Glucose [Mass/Vol] 152 mg/dL High 70 - 99 mg/dL [facility] Interpretation and review of laboratory results Abnormal [facility] POC [facility] HE[facility] FUNCTION PANELon Albumin [Mass/Vol] 3.4 g/dL Low 3.5 - 5.0 g/dL [facility] ALP [Catalytic activity/Vol] 72 U/L 32 - 126 U/L [facility] ALT [Catalytic activity/Vol] 10 U/L 9 - 48 U/L [facility] AST [Catalytic activity/Vol] 19 U/L 10 - 39 U/L [facility] Bilirubin [Mass/Vol] 0.5 mg/dL NINF - 1.5 mg/dL [facility] Bilirubin.direct [Mass/Vol] 0.1 mg/dL NINF - 0.3 mg/dL [facility] Interpretation and review of laboratory results Abnormal [facility] Protein [Mass/Vol] 6.3 g/dL Low 6.4 - 8.3 g/dL [facility] Albumin [Mass/Vol] 3.4 g/dL Low 3.5-5.0 [facility] Comment on above: Performed By: #### S URGP #### [facility] (DEFAULT) [address] [place] [address] ALP [Catalytic activity/Vol] 72 U/L Normal 32-126 [facility] Comment on above: Performed By: #### S URGP #### [facility] (DEFAULT) [address] [place] [address] ALT [Catalytic activity/Vol] 10 U/L Normal 9-48 [facility] Comment on above: Performed By: #### S URGP #### [facility] (DEFAULT) [address] [place] [address] AST [Catalytic activity/Vol] 19 U/L Normal 10-39 [facility] Comment on above: Performed By: #### S URGP #### [facility] (DEFAULT) [address] [place] [address] Bilirubin [Mass/Vol] 0.5 mg/dL Normal <1.5 [facility] Comment on above: Performed By: #### S URGP #### [facility] (DEFAULT) [address] [place] [address] Bilirubin.indirect [Mass/Vol] 0.1 mg/dL Normal <0.3 [facility] Comment on above: Performed By: #### S URGP #### [facility] (DEFAULT) [address] [place] [address] Protein [Mass/Vol] 6.3 g/dL Low 6.4-8.3 [facility] Comment on above: Performed By: #### S URGP #### [facility] (DEFAULT) [address] [place] [address] LACTATE, BLOODOrdered By: Er in [place] on 01-22-2024 Interpretation and review of laboratory results Normal [facility] Lactate [Moles/Vol] 1.4 mmol/L 0.5 - 1. 6 mmol/L [facility] LACTATE, BLOODon 01-22-2024 Lactate, Blood 1.4 mmol/L Normal 0.5-1.6 [facility] Comment on above: Performed By: #### M GO, CHM7, HFP #### [facility] (DEFAULT) [address] [place] [address] MAGNESIUMon 01-22-2024 Interpretation and review of laboratory results Normal [facility] Magnesium [Mass/Vol] 1.8 mg/dL 1.6 - 2 .6 mg/dL [facility] Magnesium [Mass/Vol] 1.8 mg/dL Normal 1.6-2.6 [facility] Comment on above: Performed By: #### LYN MALONEY, HFP #### [facility] (DEFAULT) [address] [place] [address] No Panel Informationon 01-21 [facility] PROTIME-INRon 01-22-2024 INR Coag (Bld) [Relative time] 1.0 {INR} 0.9 - 1.1 [facility] Interpretation and review of laboratory results Normal [facility] PT Coag (PPP) [Time] 13.3 s [facility] INR Coag (PPP) [Relative time] 1.0 {INR} Normal 0.9-1.1 [facility] Comment on above: Performed By: #### LYN MALONEY, HFP #### [facility] (DEFAULT) [address] [place] [address] PT Coag (PPP) [Time] 13.3 s Normal 11.9-14.2 [facility] Comment on above: Performed By: #### LYN MALONEY, HFP #### [facility] (DEFAULT) [address] [place] [address] SURG PATH REQUESTon 01-22-20 Case Report Normal [facility] Comment on above: Result Comment: Surg ical Pathology Report Case: [id number] Authorizing Provider: Jacob Chester MD Collected: 01/22/2024 03:02 PM Ordering Location: [facility] Received: 01/23/2024 08:05 AM Pathologist: Rosario Thornton MD Specimen: TISSUE, small bowel Performed By: #### S URGP #### [facility] (DEFAULT) [address] [place] [address] Clinical History Small bowel obstruction. Normal [facility] Comment on above: Performed By: #### S URGP #### [facility] (DEFAULT) [address] [address] Gross Description Normal [facility] Comment on above: Result Comment: The specimen [...] varela-brown ragged mucosa; A4, uninvolved mucosa; A5, textile designs sales representative section of hemorrhagic dark brown areas with the mesenteric fat; A6, additional textile designs sales representative section mesenteric fat to include vasculature Lab Use Only: JobID [id number] Grosser for this case was: Iman Aponte Performed By: #### S URGP #### [facility] (DEFAULT) [address] [address] Microscopic Description A microscopic examination was performed. Normal [facility] Comment on above: Performed By: #### S URGP #### [facility] (DEFAULT) [address] [address] Pathologic Diagnosis [facility] Comment on above: Result Comment: Navi weller bowel, excision: Small bowel with focal ischemic injury Viable margins Performed By: #### S URGP #### [facility] (DEFAULT) [address] [place] [address] Professional Interpretation Performed at: Normal [facility] Comment on above: Result Comment: [facility] For Immediate Release to Patient's MyChart? Yes [address] [address] Performed By: #### S URGP #### [facility] (DEFAULT) [address] [place] [address] TYPE AND SCREENon 01-22-2024 ABO/RH(D) TYPE Positive [facility] ABO/RH(D) TYPE Positive Normal [facility] Comment on above: Performed By: #### M GO, CHM7, HFP #### [facility] (DEFAULT) [address] [place] [address] BASIC METABOLIC PANELOrdered By: Thierno Morelos on 01-21-2024 Anion gap [Moles/Vol] 11 mmol/L 7 - 17 mmol/L [facility] Calcium [Mass/Vol] 9.5 mg/dL 8.6 - 10. 5 mg/dL [facility] Chloride [Moles/Vol] 96 mmol/L Low 98 - 10 8 mmol/L [facility] CO2 [Moles/Vol] 31 mmol/L 21 - 31 mmol/L [facility] Creatinine [Mass/Vol] 1.52 mg/dL High 0.50 - 1.20 mg/dL [facility] eGFR, CKD-EPI, Female 35 Low - PINF [facility] Glucose [Mass/Vol] 206 mg/dL High 70 - 99 mg/dL [facility] Interpretation and review of laboratory results Abnormal [facility] Osmolality Calc [Osmolality] 293 [facility] Potassium [Moles/Vol] 3.8 mmol/L 3.5 - 5.0 mmol/L [facility] Sodium [Moles/Vol] 134 mmol/L Low 135 - 145 mmol/L [facility] Urea nitrogen [Mass/Vol] 26 mg/dL High 7 - 25 mg/dL [facility] Urea nitrogen/Creatinine [Mass ratio] 17 mg/mg [facility] BASIC METABOLIC PANELon 07-0 Anion gap [Moles/Vol] 11 mmol/L Normal 7-17 [facility] Comment on above: Performed By: #### S URGP #### [facility] (DEFAULT) [address] [place] [address] Calcium [Mass/Vol] 9.5 mg/dL Normal 8.6-10.5 [facility] Comment on above: Performed By: #### S URGP #### [facility] (DEFAULT) [address] [place] [address] Chloride [Moles/Vol] 96 mmol/L Low 98-108 [facility] Comment on above: Performed By: #### S URGP #### [facility] (DEFAULT) [address] [place] [address] CO2 [Moles/Vol] 31 mmol/L Normal 21-31 [facility] Comment on above: Performed By: #### S URGP #### [facility] (DEFAULT) [address] [place] [address] Creatinine [Mass/Vol] 1.52 mg/dL High 0.50-1.20 [facility] Comment on above: Performed By: #### S URGP #### [facility] (DEFAULT) [address] [place] [address] GFR/1.73 sq M.predicted among non-blacks MDRD (S/P/Bld) [Vol rate/Area] 35 mL/min/{1.73_m2} Low >=60 [facility] Comment on above: Result Comment: Repo rted eGFR is based on the CKD-EPI 2020 equation using creatinine, age, and sex. Performed By: #### S URGP #### [facility] (DEFAULT) [address] [place] [address] Glucose [Mass/Vol] 206 mg/dL High 70-99 [facility] Comment on above: Performed By: #### S URGP #### [facility] (DEFAULT) [address] [place] [address] Osmolality [Osmolality] 293 mosm/kg Normal 278-305 [facility] Comment on above: Performed By: #### S URGP #### [facility] [facility] (DEFAULT) [address] [place] [address] 38893 Potassium [Moles/Vol] 3.8 mmol/L Normal 3.5-5.0 [facility] Comment on above: Performed By: #### S URGP #### [facility] (DEFAULT) [address] [place] [address] 15140 Sodium [Moles/Vol] 134 mmol/L Low 135-145 [facility] Comment on above: Performed By: #### S URGP #### [facility] (DEFAULT) [address] [place] [address] 29459 Urea nitrogen [Mass/Vol] 26 mg/dL High 7-25 [facility] Comment on above: Performed By: #### S URGP #### [facility] (DEFAULT) [address] [place] [address] 31751 Urea nitrogen/Creatinine [Mass ratio] 17 mg/mg Normal [facility] Comment on above: Performed By: #### S URGP #### [facility] (DEFAULT) [address] [place] [address] 27942 GLUCOSE POCon 01-21-2024 Glucose [Mass/Vol] 185 mg/dL High 70 - 99 mg/dL [facility] Glucose [Mass/Vol] 161 mg/dL High 70 - 99 mg/dL [facility] Glucose [Mass/Vol] 193 mg/dL High 70 - 99 mg/dL [facility] Interpretation and review of laboratory results Abnormal [facility] POC Sample Type CAPBL [facility] MAGNESIUMon 01-21-2024 Interpretation and review of laboratory results Normal [facility] Magnesium [Mass/Vol] 2.0 mg/dL 1.6 - 2 .6 mg/dL [facility] Magnesium [Mass/Vol] 2.0 mg/dL Normal 1.6-2.6 [facility] Comment on above: Performed By: #### T YPEC #### [facility] (DEFAULT) [address] [place] [address] 49071 No Panel Informationon 01-20 Interpretation and review of laboratory results Abnormal [facility] POC Sample Type CAPBL [facility] TSH W/FT4 REFLEXon Interpretation and review of laboratory results Normal [facility] TSH Qn 3.805 m[IU]/L [facility] TSH 3.805 uIU/mL Normal 0.550-4.780 [facility] Comment on above: Performed By: #### S URGP #### [facility] (DEFAULT) [address] [place] [address] 36882 XR ABDOMEN 1 VIEW PORTABLEon 01-21-2024 XR [...] IMPRESSION: Enteric tube within the stomach. Normal [facility] XR ABDOMEN 1 VIEW PORTABLE EXAM: [...] Satisfactory position of the nasogastric tube. Normal [facility] XR Abdomen Single viewon [facility]narrative) [facility] (narrative) [facility] XR Abdomen Single viewOrdere d By: Carmelo Rosales on 01-21-2024 [facility] Work Phone: BASIC METABOLIC PANELOrdered By: Alba Ambrose on 01-20-2024 Anion gap [Moles/Vol] 14 mmol/L 7 - 17 mmol/L [facility] Calcium [Mass/Vol] 9.6 mg/dL 8.6 - 10. 5 mg/dL [facility] Chloride [Moles/Vol] 100 mmol/L 98 - 10 8 mmol/L [facility] CO2 [Moles/Vol] 26 mmol/L 21 - 31 mmol/L [facility] Creatinine [Mass/Vol] 1.42 mg/dL High 0.50 - 1.20 mg/dL [facility] eGFR, CKD-EPI, Female 38 Low - PINF [facility] Glucose [Mass/Vol] 216 mg/dL High 70 - 99 mg/dL [facility] Interpretation and review of laboratory results Abnormal [facility] Osmolality Calc [Osmolality] 298 [facility] Potassium [Moles/Vol] 5.0 mmol/L 3.5 - 5.0 mmol/L [facility] Sodium [Moles/Vol] 135 mmol/L 135 - 145 mmol/L [facility] Urea nitrogen [Mass/Vol] 27 mg/dL High 7 - 25 mg/dL [facility] Urea nitrogen/Creatinine [Mass ratio] 19 mg/mg [facility] BASIC METABOLIC PANELon 07-0 Anion gap [Moles/Vol] 14 mmol/L Normal 7-17 [facility] Comment on above: Performed By: #### B FLD #### [facility] (DEFAULT) [address] [place] [address] 14395 Calcium [Mass/Vol] 9.6 mg/dL Normal 8.6-10.5 [facility] Comment on above: Performed By: #### B FLD #### [facility] (DEFAULT) [address] [place] [address] 39646 Chloride [Moles/Vol] 100 mmol/L Normal 98-108 [facility] Comment on above: Performed By: #### B FLD #### [facility] (DEFAULT) [address] [place] [address] 88104 CO2 [Moles/Vol] 26 mmol/L Normal 21-31 [facility] Comment on above: Performed By: #### B FLD #### [facility] (DEFAULT) [address] [place] [address] 94349 Creatinine [Mass/Vol] 1.42 mg/dL High 0.50-1.20 [facility] Comment on above: Performed By: #### B FLD #### [facility] (DEFAULT) [address] [place] [address] 85950 GFR/1.73 sq M.predicted among non-blacks MDRD (S/P/Bld) [Vol rate/Area] 38 mL/min/{1.73_m2} Low >=60 [facility] Comment on above: Result Comment: Repo rted eGFR is based on the CKD-EPI 2020 equation using creatinine, age, and sex. Performed By: #### B FLD #### [facility] (DEFAULT) [address] [place] [address] 74913 Glucose [Mass/Vol] 216 mg/dL High 70-99 [facility] Comment on above: Performed By: #### B FLD #### [facility] (DEFAULT) [address] [place] [address] 99574 Osmolality [Osmolality] 298 mosm/kg Normal 278-305 [facility] Comment on above: Performed By: #### B FLD #### [facility] (DEFAULT) [address] [place] [address] 87279 Potassium [Moles/Vol] 5.0 mmol/L Normal 3.5-5.0 [facility] Comment on above: Performed By: #### B FLD #### [facility] (DEFAULT) [address] [place] [address] 49218 Sodium [Moles/Vol] 135 mmol/L Normal 135-145 [facility] Comment on above: Performed By: #### B FLD #### [facility] (DEFAULT) [address] [place] [address] 39144 Urea nitrogen [Mass/Vol] 27 mg/dL High 7-25 [facility] Comment on above: Performed By: #### B FLD #### [facility] (DEFAULT) [address] [place] [address] 44483 Urea nitrogen/Creatinine [Mass ratio] 19 mg/mg Normal [facility] Comment on above: Performed By: #### B FLD #### [facility] (DEFAULT) [address] [place] [address] 37071 CBC,PLATELETSon 01-20-2024 Erythrocyte distribution width (RBC) [Ratio] 13.3 % 10.8 - 14.9 % [facility] Hematocrit (Bld) [Volume fraction] 37.2 % 34.9 - 44.3 % [facility] Hemoglobin (Bld) [Mass/Vol] 11.5 g/dL 11.4 - 15.2 g/dL [facility] Interpretation and review of laboratory results Abnormal [facility] MCH (RBC) [Entitic mass] 27.9 pg 25.9 - 33.9 pg [facility] MCHC (RBC) [Mass/Vol] 30.9 g/dL Low 31.4 - 35.9 g/dL [facility] MCV (RBC) [Entitic vol] 90.3 fL 79.6 - 97.7 fL [facility] Platelet mean volume (Bld) [Entitic vol] 11.3 fL 8.5 - 12.2 fL [facility] Platelets (Bld) [#/Vol] 235 10*3/uL 150 - 393 K/uL [facility] RBC (Bld) [#/Vol] 4.12 10*6/uL [facility] WBC (Bld) [#/Vol] 11.68 10*3/uL High 3.99 - 11 .19 K/uL [facility] Hematocrit (Bld) [Volume fraction] 37.2 % Normal 34.9-44.3 [facility] Comment on above: Performed By: #### LYN MALONEY, HFP #### [facility] (DEFAULT) [address] [address] Hemoglobin (Bld) [Mass/Vol] 11.5 g/dL Normal 11.4-15.2 [facility] Comment on above: Performed By: #### LYN MALONEY, HFP #### [facility] (DEFAULT) [address] [place] [address] 75112 MCV (RBC) [Entitic vol] 90.3 fL Normal 79.6-97.7 [facility] Comment on above: Performed By: #### LYN MALONEY, HFP #### [facility] (DEFAULT) [address] [place] [address] 41553 Mean Cell Hgb 27.9 pg Normal 25.9-33.9 [facility] Comment on above: Performed By: #### LYN MALONEY, HFP #### [facility] (DEFAULT) [address] [place] [address] 24759 Mean Cell Hgb Conc 30.9 g/dL Low 31.4-35.9 [facility] Comment on above: Performed By: #### LYN MALONEY, HFP #### [facility] (DEFAULT) [address] [place] [address] 20672 Platelet mean volume (Bld) [Entitic vol] 11.3 fL Normal 8.5-12.2 [facility] Comment on above: Performed By: #### LYN MALONEY, HFP #### [facility] (DEFAULT) [address] [place] [address] 11110 Platelets (Bld) [#/Vol] 235 10*3/uL Normal 150-393 [facility] Comment on above: Performed By: #### LYN MALONEY, HFP #### [facility] (DEFAULT) [address] [place] [address] 29019 RBC (Bld) [#/Vol] 4.12 10*6/uL Normal 3.91-5.04 [facility] Comment on above: Performed By: #### LYN MALONEY, HFP #### [facility] (DEFAULT) [address] [place] [address] 21280 RBC Distribution 13.3 % Normal 10.8-14.9 [facility] Comment on above: Performed By: #### LYN MALONEY, HFP #### [facility] (DEFAULT) [address] [place] [address] 60947 WBC (Bld) [#/Vol] 11.68 10*3/uL High 3.99-11.19 [facility] Comment on above: Performed By: #### LYN MALONEY, HFP #### [facility] (DEFAULT) [address] [place] [address] 95980 GLUCOSE POCon 01-20-2024 Glucose [Mass/Vol] 237 mg/dL High 70 - 99 mg/dL [facility] Interpretation and review of laboratory results Abnormal [facility] POC Sample Type CAPBL [facility] Glucose [Mass/Vol] 296 mg/dL High 70 - 99 mg/dL [facility] Interpretation and review of laboratory results Abnormal [facility] POC Sample Type CAPBL [facility] Glucose [Mass/Vol] 210 mg/dL High 70 - 99 mg/dL [facility] Interpretation and review of laboratory results Abnormal [facility] POC Sample Type CAPBL [facility] Glucose [Mass/Vol] 184 mg/dL High 70 - 99 mg/dL [facility] Interpretation and review of laboratory results Abnormal [facility] POC Sample Type CAPBL [facility] Glucose [Mass/Vol] 248 mg/dL High 70 - 99 mg/dL [facility] Interpretation and review of laboratory results Abnormal [facility] POC Sample Type CAPBL [facility] Glucose [Mass/Vol] 253 mg/dL High 70 - 99 mg/dL [facility] Interpretation and review of laboratory results Abnormal [facility] POC Sample Type CAPBL [facility] MAGNESIUMon 01-20-2024 Interpretation and review of laboratory results Normal [facility] Magnesium [Mass/Vol] 2.6 mg/dL 1.6 - 2 .6 mg/dL [facility] Magnesium [Mass/Vol] 2.6 mg/dL Normal 1.6-2.6 [facility] Comment on above: Performed By: #### B FLD #### [facility] (DEFAULT) [address] [place] [address] 12694 XR ABDOMEN 1 VIEW PORTABLEon 01-20-2024 XR [...] bowel ileus versus less likely obstruction. Normal [facility] XR Abdomen Single viewon RADIOLOGY RADIOLOGY [facility] Radiology Study observation (narrative) [facility] BASIC METABOLIC PANELOrdered By: Jet Reed on 01-19-2024 Anion gap [Moles/Vol] 14 mmol/L 7 - 17 mmol/L [facility] Calcium [Mass/Vol] 9.4 mg/dL 8.6 - 10. 5 mg/dL [facility] Chloride [Moles/Vol] 97 mmol/L Low 98 - 10 8 mmol/L [facility] CO2 [Moles/Vol] 26 mmol/L 21 - 31 mmol/L [facility] Creatinine [Mass/Vol] 1.33 mg/dL High 0.50 - 1.20 mg/dL [facility] eGFR, CKD-EPI, Female 41 Low - PINF [facility] Glucose [Mass/Vol] 283 mg/dL High 70 - 99 mg/dL [facility] Interpretation and review of laboratory results Abnormal [facility] Osmolality Calc [Osmolality] 295 [facility] Potassium [Moles/Vol] 4.0 mmol/L 3.5 - 5.0 mmol/L [facility] Sodium [Moles/Vol] 133 mmol/L Low 135 - 145 mmol/L [facility] Urea nitrogen [Mass/Vol] 24 mg/dL 7 - 25 mg/dL [facility] Urea nitrogen/Creatinine [Mass ratio] 18 mg/mg [facility] BASIC METABOLIC PANELon Anion gap [Moles/Vol] 14 mmol/L Normal 7-17 [facility] Comment on above: Performed By: #### C 7C, MGO #### [facility] (DEFAULT) [address] [place] [address] 37325 Calcium [Mass/Vol] 9.4 mg/dL Normal 8.6-10.5 [facility] Comment on above: Performed By: #### C 7C, MGO #### [facility] (DEFAULT) [address] [place] [address] 97755 Chloride [Moles/Vol] 97 mmol/L Low 98-108 [facility] Comment on above: Performed By: #### C 7C, MGO #### [facility] (DEFAULT) [address] [place] [address] 48371 CO2 [Moles/Vol] 26 mmol/L Normal 21-31 [facility] Comment on above: Performed By: #### José 7C, MGO #### [facility] (DEFAULT) [address] [place] [address] 71640 Creatinine [Mass/Vol] 1.33 mg/dL High 0.50-1.20 [facility] Comment on above: Performed By: #### José 7C, MGO #### [facility] (DEFAULT) [address] [place] [address] 36273 GFR/1.73 sq M.predicted among non-blacks MDRD (S/P/Bld) [Vol rate/Area] 41 mL/min/{1.73_m2} Low >=60 [facility] Comment on above: Result Comment: Repo rted eGFR is based on the CKD-EPI 2020 equation using creatinine, age, and sex. Performed By: #### C 7C, MGO #### [facility] (DEFAULT) [address] [place] [address] 83617 Glucose [Mass/Vol] 283 mg/dL High 70-99 [facility] Comment on above: Performed By: #### C 7C, MGO #### [facility] (DEFAULT) [address] [place] [address] 38129 Osmolality [Osmolality] 295 mosm/kg Normal 278-305 [facility] Comment on above: Performed By: #### C 7C, MGO #### [facility] (DEFAULT) [address] [place] [address] Potassium [Moles/Vol] 4.0 mmol/L Normal 3.5-5.0 [facility] Comment on above: Performed By: #### José 7C, MGO #### [facility] (DEFAULT) [address] [place] [address] Sodium [Moles/Vol] 133 mmol/L Low 135-145 [facility] Comment on above: Performed By: #### José 7C, MGO #### [facility] (DEFAULT) [address] [place] [address] Urea nitrogen [Mass/Vol] 24 mg/dL Normal 7-25 [facility] Comment on above: Performed By: #### José 7C, MGO #### [facility] (DEFAULT) [address] [place] [address] 38119 Urea nitrogen/Creatinine [Mass ratio] 18 mg/mg Normal [facility] Comment on above: Performed By: #### José 7C, MGO #### [facility] (DEFAULT) [address] [place] [address] 67387 GLUCOSE POCon 01-19-2024 Glucose [Mass/Vol] 283 mg/dL High 70 - 99 mg/dL [facility] Glucose [Mass/Vol] 294 mg/dL High 70 - 99 mg/dL [facility] Glucose [Mass/Vol] 276 mg/dL High 70 - 99 mg/dL [facility] Glucose [Mass/Vol] 268 mg/dL High 70 - 99 mg/dL [facility] Glucose [Mass/Vol] 246 mg/dL High 70 - 99 mg/dL [facility] MAGNESIUMon 01-19-2024 Interpretation and review of laboratory results Abnormal [facility] Magnesium [Mass/Vol] 1.4 mg/dL Low 1.6 - 2 .6 mg/dL [facility] Magnesium [Mass/Vol] 1.4 mg/dL Low 1.6-2.6 [facility] Comment on above: Performed By: #### C 7C, MGO #### [facility] (DEFAULT) [address] [place] [address] No Panel Informationon 01-18 Interpretation and review of laboratory results Abnormal [facility] POC Sample Type CAPBL [facility] Interpretation and review of laboratory results Abnormal [facility] POC Sample Type CAPBL [facility] Portable XR Chest Viewson RADIOLOGY RADIOLOGY [facility] Portable XR Chest ViewsOrder ed By: Laisha Tolentino on 01-19-2024 [facility] Work Phone: XR ABDOMEN 1 VIEW PORTABLEon [...] IMPRESSION: Ileus versus small bowel obstruction. Normal [facility] XR Abdomen Single viewon RADIOLOGY RADIOLOGY [facility] Radiology Study observation (narrative) [facility] XR Abdomen Single viewOrdere d By: Malina Leonard on 01-19-2024 [facility] Work Phone: XR CHEST 1 VIEW PORTABLEon 0 01-19-2024 XR CHEST 1 VIEW PORTABLE EXAM: XR CHEST 1 VIEW PORTABLE, 01/18/2024 23:39 PM COMPARISON: No prior studies available for comparison. CLINICAL INDICATIONS: concern for aspiratoon RELEVANT CLINICAL HISTORY: FINDINGS: (Adequate technique) Implanted Devices: None Thorax: No acute findings in the chest. IMPRESSION: No acute cardiopulmonary disease Normal [facility] BASIC METABOLIC PANELon Anion gap [Moles/Vol] 12 mmol/L 7 - 17 mmol/L [facility] Calcium [Mass/Vol] 9.7 mg/dL 8.6 - 10. 5 mg/dL [facility] Chloride [Moles/Vol] 102 mmol/L 98 - 10 8 mmol/L [facility] CO2 [Moles/Vol] 29 mmol/L 21 - 31 mmol/L [facility] Creatinine [Mass/Vol] 1.56 mg/dL High 0.50 - 1.20 mg/dL [facility] eGFR, CKD-EPI, Female 34 Low - PINF [facility] Glucose [Mass/Vol] 162 mg/dL High 70 - 99 mg/dL [facility] Interpretation and review of laboratory results Abnormal [facility] Osmolality Calc [Osmolality] 299 [facility] Potassium [Moles/Vol] 4.0 mmol/L 3.5 - 5.0 mmol/L [facility] Sodium [Moles/Vol] 139 mmol/L 135 - 145 mmol/L [facility] Urea nitrogen [Mass/Vol] 24 mg/dL 7 - 25 mg/dL [facility] Urea nitrogen/Creatinine [Mass ratio] 15 mg/mg [facility] Anion gap [Moles/Vol] 12 mmol/L Normal 7-17 [facility] Comment on above: Performed By: #### M GIOVANNI, CHM7, HFP #### [facility] (DEFAULT) [address] [place] [address] Calcium [Mass/Vol] 9.7 mg/dL Normal 8.6-10.5 [facility] Comment on above: Performed By: #### LYN MALONEY, HFP #### [facility] (DEFAULT) [address] [place] [address] 19659 Chloride [Moles/Vol] 102 mmol/L Normal 98-108 [facility] Comment on above: Performed By: #### LYN MALONEY, HFP #### [facility] (DEFAULT) [address] [place] [address] 73709 CO2 [Moles/Vol] 29 mmol/L Normal 21-31 [facility] Comment on above: Performed By: #### LYN MALONEY, HFP #### [facility] (DEFAULT) [address] [place] [address] 54229 Creatinine [Mass/Vol] 1.56 mg/dL High 0.50-1.20 [facility] Comment on above: Performed By: #### LYN MALONEY, HFP #### [facility] (DEFAULT) [address] [place] [address] 80690 GFR/1.73 sq M.predicted among non-blacks MDRD (S/P/Bld) [Vol rate/Area] 34 mL/min/{1.73_m2} Low >=60 [facility] Comment on above: Result Comment: Repo rted eGFR is based on the CKD-EPI 2020 equation using creatinine, age, and sex. Performed By: #### LYN MALONEY, HFP #### [facility] (DEFAULT) [address] [place] [address] 32732 Glucose [Mass/Vol] 162 mg/dL High 70-99 [facility] Comment on above: Performed By: #### LYN MALONEY, HFP #### [facility] (DEFAULT) [address] [place] [address] 16562 Osmolality [Osmolality] 299 mosm/kg Normal 278-305 [facility] Comment on above: Performed By: #### M GO, CHM7, HFP #### [facility] (DEFAULT) [address] [place] [address] 33157 Potassium [Moles/Vol] 4.0 mmol/L Normal 3.5-5.0 [facility] Comment on above: Performed By: #### Brian DAVILA CHM7, HFP #### [facility] (DEFAULT) [address] [place] [address] 55915 Sodium [Moles/Vol] 139 mmol/L Normal 135-145 [facility] Comment on above: Performed By: #### Brian DAVILA CHM7, HFP #### [facility] (DEFAULT) [address] [place] [address] 22374 Urea nitrogen [Mass/Vol] 24 mg/dL Normal 7-25 [facility] Comment on above: Performed By: #### Brian DAVILA CHM7, HFP #### [facility] (DEFAULT) [address] [place] [address] 79889 Urea nitrogen/Creatinine [Mass ratio] 15 mg/mg Normal [facility] Comment on above: Performed By: #### Brian DAVILA CHM7, HFP #### [facility] (DEFAULT) [address] [place] [address] 89543 CBC,PLATELETSon 01-18-2024 Erythrocyte distribution width (RBC) [Ratio] 13.0 % 10.8 - 14.9 % [facility] Hematocrit (Bld) [Volume fraction] 34.9 % 34.9 - 44.3 % [facility] Hemoglobin (Bld) [Mass/Vol] 10.7 g/dL Low 11.4 - 15.2 g/dL [facility] Interpretation and review of laboratory results Abnormal [facility] MCH (RBC) [Entitic mass] 27.1 pg 25.9 - 33.9 pg [facility] MCHC (RBC) [Mass/Vol] 30.7 g/dL Low 31.4 - 35.9 g/dL [facility] MCV (RBC) [Entitic vol] 88.4 fL 79.6 - 97.7 fL [facility] Platelet mean volume (Bld) [Entitic vol] 11.1 fL 8.5 - 12.2 fL [facility] Platelets (Bld) [#/Vol] 251 10*3/uL 150 - 393 K/uL [facility] RBC (Bld) [#/Vol] 3.95 10*6/uL [facility] WBC (Bld) [#/Vol] 6.73 10*3/uL 3.99 - 11. 19 K/uL [facility] Hematocrit (Bld) [Volume fraction] 34.9 % Normal 34.9-44.3 [facility] Comment on above: Performed By: #### José 7C, MGO #### [facility] (DEFAULT) [address] [place] [address] 17272 Hemoglobin (Bld) [Mass/Vol] 10.7 g/dL Low 11.4-15.2 [facility] Comment on above: Performed By: #### José 7C, MGO #### [facility] (DEFAULT) [address] [place] [address] 36531 MCV (RBC) [Entitic vol] 88.4 fL Normal 79.6-97.7 [facility] Comment on above: Performed By: #### José 7C, MGO #### [facility] (DEFAULT) [address] [place] [address] 75008 Mean Cell Hgb 27.1 pg Normal 25.9-33.9 [facility] Comment on above: Performed By: #### José 7C, MGO #### [facility] (DEFAULT) [address] [place] [address] 88196 Mean Cell Hgb Conc 30.7 g/dL Low 31.4-35.9 [facility] Comment on above: Performed By: #### José 7C, MGO #### [facility] (DEFAULT) [address] [place] [address] 65152 Platelet mean volume (Bld) [Entitic vol] 11.1 fL Normal 8.5-12.2 [facility] Comment on above: Performed By: #### José 7C, MGO #### [facility] (DEFAULT) [address] [place] [address] 22387 Platelets (Bld) [#/Vol] 251 10*3/uL Normal 150-393 [facility] Comment on above: Performed By: #### José 7C, MGO #### [facility] (DEFAULT) [address] [place] [address] 71813 RBC (Bld) [#/Vol] 3.95 10*6/uL Normal 3.91-5.04 [facility] Comment on above: Performed By: #### José 7C, MGO #### [facility] (DEFAULT) [address] [place] [address] 39728 RBC Distribution 13.0 % Normal 10.8-14.9 [facility] Comment on above: Performed By: #### José 7C, MGO #### [facility] (DEFAULT) [address] [place] [address] 88303 WBC (Bld) [#/Vol] 6.73 10*3/uL Normal 3.99-11.19 [facility] Comment on above: Performed By: #### José 7C, MGO #### [facility] (DEFAULT) [address] [place] [address] 48348 GLUCOSE POCon 01-18-2024 Glucose [Mass/Vol] 256 mg/dL High 70 - 99 mg/dL [facility] Interpretation and review of laboratory results Abnormal [facility] POC Sample Type CAPBL [facility] Glucose [Mass/Vol] 194 mg/dL High 70 - 99 mg/dL [facility] Interpretation and review of laboratory results Abnormal [facility] POC Sample Type CAPBL [facility] Portable XR Chest Viewson Radiology Study observation (narrative) [facility] VANCOMYCIN LEVEL, TROUGH (MS E DRUG LEVEL)on 01-18-2024 Interpretation and review of laboratory results Abnormal [facility] Vancomycin trough [Mass/Vol] 21.0 ug/mL High Therapeutic Range: 10.0-20.0 mcg/mL mcg/mL [facility] Vancomycin, Trough 21.0 mcg/mL High Therapeut ic Range: 10.0-20.0 mcg/mL [facility] Comment on above: Order Comment: Pleas e draw level at specified interval PRIOR to next dose. Performed By: #### B FLD #### [facility] (DEFAULT) [address] [place] [address] BASIC METABOLIC PANELon Anion gap [Moles/Vol] 14 mmol/L 7 - 17 mmol/L [facility] Calcium [Mass/Vol] 9.3 mg/dL 8.6 - 10. 5 mg/dL [facility] Chloride [Moles/Vol] 102 mmol/L 98 - 10 8 mmol/L [facility] CO2 [Moles/Vol] 26 mmol/L 21 - 31 mmol/L [facility] Creatinine [Mass/Vol] 1.63 mg/dL High 0.50 - 1.20 mg/dL [facility] eGFR, CKD-EPI, Female 32 Low - PINF [facility] Glucose [Mass/Vol] 251 mg/dL High 70 - 99 mg/dL [facility] Interpretation and review of laboratory results Abnormal [facility] Osmolality Calc [Osmolality] 303 [facility] Potassium [Moles/Vol] 3.9 mmol/L 3.5 - 5.0 mmol/L [facility] Sodium [Moles/Vol] 138 mmol/L 135 - 145 mmol/L [facility] Urea nitrogen [Mass/Vol] 25 mg/dL 7 - 25 mg/dL [facility] Urea nitrogen/Creatinine [Mass ratio] 15 mg[facility]SE [facility]Con 01-17-2024 Glucose [Mass/Vol] 240 mg/dL High 70 - 99 mg/dL [facility] Interpretation and review of laboratory results Abnormal [facility]OC [facility] Glucose [Mass/Vol] 242 mg/dL High 70 - 99 mg/dL [facility] Interpretation and review of laboratory results Abnormal [facility] POC Sample [facility] Glucose [Mass/Vol] 174 mg/dL High 70 - 99 mg/dL [facility] Interpretation and review of laboratory results Abnormal [facility] POC Sample Type CAPBL [facility] Glucose [Mass/Vol] 174 mg/dL High 70 - 99 mg/dL [facility] Interpretation and review of laboratory results Abnormal [facility] POC Sample Type CAPBL [facility] BASIC METABOLIC PANELon 07-0 -2023 Anion gap [Moles/Vol] 14 mmol/L Normal 7-17 [facility] Comment on above: Performed By: #### LYN MALONEY, HFP #### [facility] (DEFAULT) [address] [place] [address] Calcium [Mass/Vol] 9.3 mg/dL Normal 8.6-10.5 [facility] Comment on above: Performed By: #### LYN MALONEY, HFP #### [facility] (DEFAULT) [address] [place] [address] Chloride [Moles/Vol] 102 mmol/L Normal 98-108 [facility] Comment on above: Performed By: #### LYN MALONEY, HFP #### [facility] (DEFAULT) [address] [place] [address] CO2 [Moles/Vol] 26 mmol/L Normal 21-31 [facility] Comment on above: Performed By: #### LYN MALONEY, HFP #### [facility] (DEFAULT) [address] [place] [address] 89827 Creatinine [Mass/Vol] 1.63 mg/dL High 0.50-1.20 [facility] Comment on above: Performed By: #### LYN MALONEY, HFP #### [facility] (DEFAULT) [address] [place] [address] 82555 GFR/1.73 sq M.predicted among non-blacks MDRD (S/P/Bld) [Vol rate/Area] 32 mL/min/{1.73_m2} Low >=60 [facility] Comment on above: Result Comment: Repo rted eGFR is based on the CKD-EPI 2020 equation using creatinine, age, and sex. Performed By: #### LYN MALONEY, HFP #### [facility] (DEFAULT) [address] [place] [address] 09030 Glucose [Mass/Vol] 251 mg/dL High 70-99 [facility] Comment on above: Performed By: #### LYN MALONEY, HFP #### [facility] (DEFAULT) [address] [place] [address] 02871 Osmolality [Osmolality] 303 mosm/kg Normal 278-305 [facility] Comment on above: Performed By: #### LYN MALONEY, HFP #### [facility] (DEFAULT) [address] [place] [address] 78634 Potassium [Moles/Vol] 3.9 mmol/L Normal 3.5-5.0 [facility] Comment on above: Performed By: #### LYN MALONEY, HFP #### [facility] (DEFAULT) [address] [place] [address] 29673 Sodium [Moles/Vol] 138 mmol/L Normal 135-145 [facility] Comment on above: Performed By: #### LYN MALONEY, HFP #### [facility] (DEFAULT) [address] [place] [address] Urea nitrogen [Mass/Vol] 25 mg/dL Normal 7-25 [facility] Comment on above: Performed By: #### M LYN DAVILA, HFP #### [facility] (DEFAULT) [address] [place] [address] Urea nitrogen/Creatinine [Mass ratio] 15 mg/mg Normal [facility] Comment on above: Performed By: #### LYN MALONEY, HFP #### [facility] (DEFAULT) [address] [place] [address] Anion gap [Moles/Vol] 13 mmol/L 7 - 17 mmol/L [facility] Calcium [Mass/Vol] 9.6 mg/dL 8.6 - 10. 5 mg/dL [facility] Chloride [Moles/Vol] 107 mmol/L 98 - 10 8 mmol/L [facility] CO2 [Moles/Vol] 25 mmol/L 21 - 31 mmol/L [facility] Creatinine [Mass/Vol] 1.05 mg/dL 0.50 - 1.20 mg/dL [facility] eGFR, CKD-EPI, Female 55 Low - PINF [facility] Glucose [Mass/Vol] 136 mg/dL High 70 - 99 mg/dL [facility] Interpretation and review of laboratory results Abnormal [facility] Osmolality Calc [Osmolality] 299 [facility] Potassium [Moles/Vol] 3.7 mmol/L 3.5 - 5.0 mmol/L [facility] Sodium [Moles/Vol] 141 mmol/L 135 - 145 mmol/L [facility] Urea nitrogen [Mass/Vol] 19 mg/dL 7 - 25 mg/dL [facility] Urea nitrogen/Creatinine [Mass ratio] 18 mg/mg [facility] Anion gap [Moles/Vol] 13 mmol/L Normal 7-17 [facility] Comment on above: Performed By: #### José 7C, MGO #### [facility] (DEFAULT) [address] [place] [address] 30605 Calcium [Mass/Vol] 9.6 mg/dL Normal 8.6-10.5 [facility] Comment on above: Performed By: #### C 7C, MGO #### [facility] (DEFAULT) [address] [place] [address] 61096 Chloride [Moles/Vol] 107 mmol/L Normal 98-108 [facility] Comment on above: Performed By: #### C 7C, MGO #### [facility] (DEFAULT) [address] [place] [address] 79106 CO2 [Moles/Vol] 25 mmol/L Normal 21-31 [facility] Comment on above: Performed By: #### C 7C, MGO #### [facility] (DEFAULT) [address] [place] [address] 73549 Creatinine [Mass/Vol] 1.05 mg/dL Normal 0.50-1.20 [facility] Comment on above: Performed By: #### C 7C, MGO #### [facility] (DEFAULT) [address] [place] [address] 52721 GFR/1.73 sq M.predicted among non-blacks MDRD (S/P/Bld) [Vol rate/Area] 55 mL/min/{1.73_m2} Low >=60 [facility] Comment on above: Result Comment: Repo rted eGFR is based on the CKD-EPI 2020 equation using creatinine, age, and sex. Performed By: #### C 7C, MGO #### [facility] (DEFAULT) [address] [place] [address] 71090 Glucose [Mass/Vol] 136 mg/dL High 70-99 [facility] Comment on above: Performed By: #### C 7C, MGO #### [facility] (DEFAULT) [address] [place] [address] 93253 Osmolality [Osmolality] 299 mosm/kg Normal 278-305 [facility] Comment on above: Performed By: #### C 7C, MGO #### [facility] (DEFAULT) [address] [place] [address] 37946 Potassium [Moles/Vol] 3.7 mmol/L Normal 3.5-5.0 [facility] Comment on above: Performed By: #### C 7C, MGO #### [facility] (DEFAULT) [address] [place] [address] 14096 Sodium [Moles/Vol] 141 mmol/L Normal 135-145 [facility] Comment on above: Performed By: #### C 7C, MGO #### [facility] (DEFAULT) [address] [place] [address] 72124 Urea nitrogen [Mass/Vol] 19 mg/dL Normal 7-25 [facility] Comment on above: Performed By: #### C 7C, MGO #### [facility] (DEFAULT) [address] [place] [address] 19915 Urea nitrogen/Creatinine [Mass ratio] 18 mg/mg Normal [facility] Comment on above: Performed By: #### C 7C, MGO #### [facility] (DEFAULT) [address] [place] [address] 47959 CBC,PLATELETSon 01-16-2024 Erythrocyte distribution width (RBC) [Ratio] 12.9 % 10.8 - 14.9 % [facility] Hematocrit (Bld) [Volume fraction] 35.4 % 34.9 - 44.3 % [facility] Hemoglobin (Bld) [Mass/Vol] 11.1 g/dL Low 11.4 - 15.2 g/dL [facility] Interpretation and review of laboratory results Abnormal [facility] MCH (RBC) [Entitic mass] 27.8 pg 25.9 - 33.9 pg [facility] MCHC (RBC) [Mass/Vol] 31.4 g/dL 31.4 - 35.9 g/dL [facility] MCV (RBC) [Entitic vol] 88.5 fL 79.6 - 97.7 fL [facility] Platelet mean volume (Bld) [Entitic vol] 10.5 fL 8.5 - 12.2 fL [facility] Platelets (Bld) [#/Vol] 249 10*3/uL 150 - 393 K/uL [facility] RBC (Bld) [#/Vol] 4.00 10*6/uL [facility] WBC (Bld) [#/Vol] 6.67 10*3/uL 3.99 - 11. 19 K/uL [facility] Hematocrit (Bld) [Volume fraction] 35.4 % Normal 34.9-44.3 [facility] Comment on above: Performed By: #### LYN MALONEY, HFP #### [facility] (DEFAULT) [address] [place] [address] 00883 Hemoglobin (Bld) [Mass/Vol] 11.1 g/dL Low 11.4-15.2 [facility] Comment on above: Performed By: #### LYN MALONEY, HFP #### [facility] (DEFAULT) [address] [place] [address] 81985 MCV (RBC) [Entitic vol] 88.5 fL Normal 79.6-97.7 [facility] Comment on above: Performed By: #### LYN MALONEY, HFP #### [facility] (DEFAULT) [address] [place] [address] 48189 Mean Cell Hgb 27.8 pg Normal 25.9-33.9 [facility] Comment on above: Performed By: #### SILVIA MALONEY7, HFP #### [facility] (DEFAULT) [address] [place] [address] 80858 Mean Cell Hgb Conc 31.4 g/dL Normal 31.4-35.9 [facility] Comment on above: Performed By: #### Brian DAVILA CHM7, HFP #### [facility] (DEFAULT) [address] [place] [address] 83836 Platelet mean volume (Bld) [Entitic vol] 10.5 fL Normal 8.5-12.2 [facility] Comment on above: Performed By: #### SILVIA MALONEY7, HFP #### [facility] (DEFAULT) [address] [place] [address] 62588 Platelets (Bld) [#/Vol] 249 10*3/uL Normal 150-393 [facility] Comment on above: Performed By: #### M SILVIA DAVILA7, HFP #### [facility] (DEFAULT) [address] [place] [address] 44743 RBC (Bld) [#/Vol] 4.00 10*6/uL Normal 3.91-5.04 [facility] Comment on above: Performed By: #### Brian DAVILA CHM7, HFP #### [facility] (DEFAULT) [address] [place] [address] 25431 RBC Distribution 12.9 % Normal 10.8-14.9 [facility] Comment on above: Performed By: #### SILVIA MALONEY7, HFP #### [facility] (DEFAULT) [address] [place] [address] 29109 WBC (Bld) [#/Vol] 6.67 10*3/uL Normal 3.99-11.19 [facility] Comment on above: Performed By: #### Brian DAVILA CHM7, HFP #### [facility] (DEFAULT) [address] [place] [address] 32737 Enterovirus By PCRon 024 ENTEROVIRUS PCR Negative Normal Negative [facility] Comment on above: Result Comment: No E nteroviral RNA Detected.This test was developed and its performance characteristicsdetermined by [facility]. It has not been cleared or approvedby the Food and Drug Administration. The FDA hasdetermined that such clearance or approval is notnecessary.Performed at: [address] [id number] Director: Johnathon Malik MD, Phone: [phone] Performed By: #### L [id number] ####[facility] [id number] [place], [address] GLUCOSE POCon 01-16-2024 Glucose [Mass/Vol] 295 mg/dL High 70 - 99 mg/dL [facility] Glucose [Mass/Vol] 230 mg/dL High 70 - 99 mg/dL [facility] Glucose [Mass/Vol] 132 mg/dL High 70 - 99 mg/dL [facility] Glucose [Mass/Vol] 266 mg/dL High 70 - 99 mg/dL [facility] Glucose [Mass/Vol] 284 mg/dL High 70 - 99 mg/dL [facility] Glucose [Mass/Vol] 278 mg/dL High 70 - 99 mg/dL [facility] LYME ABon 01-16-2024 B. burgdorferi IgM IA Qn (S) Negative Negative [facility] Interpretation and review of laboratory results Normal [facility] No Panel Informationon 01-15 Interpretation and review of laboratory results Abnormal [facility] POC Sample Type CAPBL [facility] TSH W/FT4 REFLEXon Interpretation and review of laboratory results Normal [facility] TSH Qn 1.610 m[IU]/L [facility] TSH 1.610 uIU/mL Normal 0.550-4.780 [facility] Comment on above: Performed By: #### C 7C, MGO #### [facility] (DEFAULT) [address] [place] [address] VANCOMYCIN LEVEL, TROUGH (MS E DRUG LEVEL)on 01-16-2024 Interpretation and review of laboratory results Abnormal [facility] Vancomycin trough [Mass/Vol] 20.9 ug/mL High Therapeutic Range: 10.0-20.0 mcg/mL mcg/mL [facility] Vancomycin, Trough 20.9 mcg/mL High Therapeut ic Range: 10.0-20.0 mcg/mL [facility] Comment on above: Order Comment: Pleas e draw level at specified interval PRIOR to next dose. Performed By: #### M GIOVANNI, M7, [facility] #### [facility] (DEFAULT) [address] [place] [address] GLUCOSE POCon 01-15-2024 Glucose [Mass/Vol] 331 mg/dL High 70 - 99 mg/dL [facility] Interpretation and review of laboratory results Abnormal [facility] POC Sample Type CAPBL [facility] Glucose [Mass/Vol] 187 mg/dL High 70 - 99 mg/dL [facility] Glucose [Mass/Vol] 276 mg/dL High 70 - 99 mg/dL [facility] No Panel Informationon 01-14 Interpretation and review of laboratory results Abnormal [facility] POC Sample Type CAPBL [facility] PLATELET COUNTon 01-15-2024 Interpretation and review of laboratory results Normal [facility] Platelet mean volume (Bld) [Entitic vol] 11.1 fL 8.5 - 12.2 fL [facility] Platelets (Bld) [#/Vol] 252 10*3/uL 150 - 393 K/uL [facility] Platelet mean volume (Bld) [Entitic vol] 11.1 fL Normal 8.5-12.2 [facility] Comment on above: Performed By: #### T YPEC #### [facility] (DEFAULT) [address] [place] [address] Platelets (Bld) [#/Vol] 252 10*3/uL Normal 150-393 [facility] Comment on above: Performed By: #### T YPEC #### [facility] (DEFAULT) [address] [place] [address] BASIC METABOLIC PANELon Anion gap [Moles/Vol] 13 mmol/L 7 - 17 mmol/L [facility] Calcium [Mass/Vol] 9.1 mg/dL 8.6 - 10. 5 mg/dL [facility] Chloride [Moles/Vol] 106 mmol/L 98 - 10 8 mmol/L [facility] CO2 [Moles/Vol] 22 mmol/L 21 - 31 mmol/L [facility] Creatinine [Mass/Vol] 1.12 mg/dL 0.50 - 1.20 mg/dL [facility] eGFR, CKD-EPI, Female 51 Low - PINF [facility] Glucose [Mass/Vol] 182 mg/dL High 70 - 99 mg/dL [facility] Interpretation and review of laboratory results Abnormal [facility] Osmolality Calc [Osmolality] 295 [facility] Potassium [Moles/Vol] 3.7 mmol/L 3.5 - 5.0 mmol/L [facility] Sodium [Moles/Vol] 137 mmol/L 135 - 145 mmol/L [facility] Urea nitrogen [Mass/Vol] 21 mg/dL 7 - 25 mg/dL [facility] Urea nitrogen/Creatinine [Mass ratio] 19 mg/mg [facility] Anion gap [Moles/Vol] 13 mmol/L Normal 7-17 [facility] Comment on above: Performed By: #### José 7C, MGO #### [facility] (DEFAULT) [address] [place] [address] Calcium [Mass/Vol] 9.1 mg/dL Normal 8.6-10.5 [facility] Comment on above: Performed By: #### José 7C, MGO #### [facility] (DEFAULT) [address] [place] [address] Chloride [Moles/Vol] 106 mmol/L Normal 98-108 [facility] Comment on above: Performed By: #### José 7C, MGO #### [facility] (DEFAULT) [address] [place] [address] CO2 [Moles/Vol] 22 mmol/L Normal 21-31 [facility] Comment on above: Performed By: #### José 7C, MGO #### [facility] (DEFAULT) [address] [place] [address]74 Creatinine [Mass/Vol] 1.12 mg/dL Normal 0.50-1.20 [facility] Comment on above: Performed By: #### José 7C, MGO #### [facility] (DEFAULT) [address] [place] [address] 15935 GFR/1.73 sq M.predicted among non-blacks MDRD (S/P/Bld) [Vol rate/Area] 51 mL/min/{1.73_m2} Low >=60 [facility] Comment on above: Result Comment: Repo rted eGFR is based on the CKD-EPI 2020 equation using creatinine, age, and sex. Performed By: #### José 7C, MGO #### [facility] (DEFAULT) [address] [place] [address] 72091 Glucose [Mass/Vol] 182 mg/dL High 70-99 [facility] Comment on above: Performed By: #### José Quiñones, MGO #### [facility] (DEFAULT) [address] [place] [address] 15588 Osmolality [Osmolality] 295 mosm/kg Normal 278-305 [facility] Comment on above: Performed By: #### José 7C, MGO #### [facility] (DEFAULT) [address] [place] [address] 21915 Potassium [Moles/Vol] 3.7 mmol/L Normal 3.5-5.0 [facility] Comment on above: Performed By: #### José 7C, MGO #### [facility] (DEFAULT) [address] [place] [address] 55809 Sodium [Moles/Vol] 137 mmol/L Normal 135-145 [facility] Comment on above: Performed By: #### José 7C, MGO #### [facility] (DEFAULT) [address] [place] [address] 67517 Urea nitrogen [Mass/Vol] 21 mg/dL Normal 7-25 [facility] Comment on above: Performed By: #### José 7C, MGO #### [facility] (DEFAULT) [address] [place] [address] Urea nitrogen/Creatinine [Mass ratio] 19 mg/mg Normal [facility] Comment on above: Performed By: #### José 7C, MGO #### [facility] (DEFAULT) [address] [place] [address] CBC,PLATELETSon 01-14-2024 Erythrocyte distribution width (RBC) [Ratio] 12.5 % 10.8 - 14.9 % [facility] Hematocrit (Bld) [Volume fraction] 34.1 % Low 34.9 - 44.3 % [facility] Hemoglobin (Bld) [Mass/Vol] 10.6 g/dL Low 11.4 - 15.2 g/dL [facility] Interpretation and review of laboratory results Abnormal [facility] MCH (RBC) [Entitic mass] 27.9 pg 25.9 - 33.9 pg [facility] MCHC (RBC) [Mass/Vol] 31.1 g/dL Low 31.4 - 35.9 g/dL [facility] MCV (RBC) [Entitic vol] 89.7 fL 79.6 - 97.7 fL [facility] Platelet mean volume (Bld) [Entitic vol] 10.6 fL 8.5 - 12.2 fL [facility] Platelets (Bld) [#/Vol] 218 10*3/uL 150 - 393 K/uL [facility] RBC (Bld) [#/Vol] 3.80 10*6/uL Low [facility] WBC (Bld) [#/Vol] 6.23 10*3/uL 3.99 - 11. 19 K/uL [facility] Hematocrit (Bld) [Volume fraction] 34.1 % Low 34.9-44.3 [facility] Comment on above: Performed By: #### Brian DAVILA CHM7, HFP #### [facility] (DEFAULT) [address] [place] [address] 56116 Hemoglobin (Bld) [Mass/Vol] 10.6 g/dL Low 11.4-15.2 [facility] Comment on above: Performed By: #### Brian DAVILA CHM7, HFP #### [facility] (DEFAULT) [address] [place] [address] 98825 MCV (RBC) [Entitic vol] 89.7 fL Normal 79.6-97.7 [facility] Comment on above: Performed By: #### LYN MALONEY, HFP #### [facility] (DEFAULT) [address] [place] [address] 82011 Mean Cell Hgb 27.9 pg Normal 25.9-33.9 [facility] Comment on above: Performed By: #### LYN MALONEY, HFP #### [facility] (DEFAULT) [address] [place] [address] 14987 Mean Cell Hgb Conc 31.1 g/dL Low 31.4-35.9 [facility] Comment on above: Performed By: #### LYN MALONEY, HFP #### [facility] (DEFAULT) [address] [place] [address] 15862 Platelet mean volume (Bld) [Entitic vol] 10.6 fL Normal 8.5-12.2 [facility] Comment on above: Performed By: #### Brian DAVILA CHM7, HFP #### [facility] (DEFAULT) [address] [place] [address] 77538 Platelets (Bld) [#/Vol] 218 10*3/uL Normal 150-393 [facility] Comment on above: Performed By: #### Brian DAVILA CHM7, HFP #### [facility] (DEFAULT) [address] [place] [address] 00451 RBC (Bld) [#/Vol] 3.80 10*6/uL Low 3.91-5.04 [facility] Comment on above: Performed By: #### M GIOVANNI CHM7, HFP #### [facility] (DEFAULT) [address] [place] [address] 54229 RBC Distribution 12.5 % Normal 10.8-14.9 [facility] Comment on above: Performed By: #### M GIOVANNI CHM7, HFP #### [facility] (DEFAULT) [address] [place] [address] 31215 WBC (Bld) [#/Vol] 6.23 10*3/uL Normal 3.99-11.19 [facility] Comment on above: Performed By: #### Brian DAVILA CHM7, HFP #### [facility] (DEFAULT) [address] [place] [address] 95872 CSF DIFFERENTIALOrdered By: Montez Davis on 01-14-2024 Basophils/100 WBC Manual cnt (CSF) 0 % [facility] Work Phone: Cells Counted Total (CSF) [#] 100 [facility] Work Phone: Eosinophils/100 WBC Manual cnt (CSF) 0 % [facility] Work Phone: Interpretation and review of laboratory results Abnormal [facility] Work Phone: Lymphocytes/100 WBC Manual cnt (CSF) 48 % 40 - 80 % [facility] Work Phone: Monocytes+Macrophages /100 WBC (CSF) 6 % Low 15 - 45 % [facility] Work Phone: Neutrophils/100 WBC Manual cnt (CSF) 44 % High NINF - 6 % [facility] Work Phone: Nucleated RBC/100 WBC (Bld) [Ratio] 2 % [facility] Work Phone: Pathologist review Roger (Unsp spec) [Interp] Montez Davis MD [facility] Work Phone: Pathology report comments [Interpretation] Narrative f8wniOTvZEQggVSgGTNoV6xchw KnCQJdyXFzM8EzetwjZAdrHE8y UM8tcHexqBMzoXOyXGOjSiQxh5 bzi720mHAbu0rhXSZVXRawMKYG WCp2pXevC89wu3I0SbsdA67gsG QrPBV5CRVvPYOytVHsLRImXNZ1 SHObrHMaN3uaGDZsTF0vnpwvGL qzNIcfJCBepOB1LAXajIHpL6Hz GSGbHEggLCVeyie5RkXtDi7opG VyeTcyMFxwYXJkXHBsYWluXGZz SzSxRHuiaz65VON2l4vrgVOnKO llPsitoOCpzdJ9IDmVFFYPFJeH RaCiXJ1sJHoUW6MGYKrHWdpsJj anF4hrmNZ6t7fhmKRsi1h1CGie GQK8nA4cSAGoMTQ3eIHtZ5QpFS 3dD1EkiEFebtFuWACbByQmRflq d1NukHDrrTOjl6KyxS5gDQP1eS JiOR3mTZJviq6zbTKjsJ8stCQx fFD1l5O2RTEotDfdQHKrAZSmri KdFRANg7DxHJljpOhckkF9rTJw YSfpJI7xo0NfhI9aGX2bGLH7lE Y5vfEmrpTwi28zKY5nEISfb4yi fUPlXUfqEjokjBAsnrU0JXySYT WFHGuTUvRjES4zCAiAJ8IYSsE9 QcV3MeD2VBqdxSvrXqtlpvCqfN XvVsSmoC8ndLajnZ9rSyFeJDHt BGSeliwsJVGzQGWooqk5XIHJNN YUKWmPSD8OMUJPSXYSFF1DCMyP IuDgUujeS3fsTHW5YrN0KmV1Nd W6UNOWVLQXXUjDEH1XRCADXSSE KF7DZbOsZ1yWLKAHUzKtCDDGCL ICOTWbJnVTOE6bG6sLBYPUNlZs GRKOAGJHCNOsXU2HURTGUZJBLF 4JUMSIS13SKOKPHNYXT1PRS0aH FQApl0BnjGWQq2T7RONdhBosLA SoPVEcIjVqDlVwCR2oFIhLP1UM X8aBKVEiZATSYDKIXWUuLX4YNJ wNAP3XHAJwBMBHINXXZVAeAxZT OF9tBCaPGN4QMMYoATZNZQJIDU GhEH3ZSWFEBY0OBWDGAEJMX37C OFAETXOQQ1MNK1yBOEDKAQLKMt HIObVGXQ3CALCUALLKZS8NXkQ5 [facility] Work Phone: Tube number Nom (CSF) [ID] CSF TUBE 4 [facility] Work Phone: [facility] Work Phone: EBV Acute VCA IgMon 01-14-20 24 EBV Ab VCA, IgM < 36.0 Normal 0.0-35.9 [facility] Comment on above: Result Comment: Nega tive <36.0 Equivocal 36.0 - 43.9 Positive >43.9 Performed By: #### L 800.7510, L7000.8600, L3100.5900 ####[facility] [id number] [place], [place], [id number] GLUCOSE POCon 01-14-2024 Glucose [Mass/Vol] 253 mg/dL High 70 - 99 mg/dL [facility] Interpretation and review of laboratory results Abnormal [facility] POC Sample Type CAPBL [facility] Glucose [Mass/Vol] 251 mg/dL High 70 - 99 mg/dL [facility] Glucose [Mass/Vol] 241 mg/dL High 70 - 99 mg/dL [facility] Glucose [Mass/Vol] 168 mg/dL High 70 - 99 mg/dL [facility] Interpretation and review of laboratory results Abnormal [facility] POC Sample Type CAPBL [facility] HSV Culture and Typingon HSV CULT/TYPING Comment Normal . [facility] Comment on above: Result Comment: Jigar Middleton Herpes simplex virus isolated. Performed By: #### L 800.7510, L7000.8600, L3100.5900 ####[facility] [id number] [place], [place], [id number] MICHELINE Virus Whole Blood DNA, PC Iain 01-14-2024 JCV WB DNA PCR Normal [facility] Comment on above: Result Comment: TEST RESULTS LIMITSJC Virus DNA,PCR (WholeBlood) Negative Negative No JCV DNA detectedThis test was developed and its performance characteristicsdetermined by [employer]. It has not been cleared or approvedby the Food and Drug Administration. The FDA has determinedthat such clearance or approval is not necessary. ___ TESTING PERFORMED AT [facility]. ORIGINAL REPORT ON FILE IN LAB CONTAINS ADDITIONAL TEST SITE INFORMATION. Performed By: #### L 800.7510, L7000.8600, L3100.5900 ####[facility] [address] [place], [place], [id number] MAGNESIUMon 01-14-2024 Interpretation and review of laboratory results Normal [facility] Magnesium [Mass/Vol] 2.2 mg/dL 1.6 - 2 .6 mg/dL [facility] Magnesium [Mass/Vol] 2.2 mg/dL Normal 1.6-2.6 [facility] Comment on above: Performed By: #### C 7C, MGO #### [facility] (DEFAULT) [address] [place] [address] No Panel Informationon 01-13 Interpretation and review of laboratory results Abnormal [facility] POC Sample Type CAPBL [facility] BASIC METABOLIC PANELon 12-16 Anion gap [Moles/Vol] 13 mmol/L 7 - 17 mmol/L [facility] Calcium [Mass/Vol] 9.5 mg/dL 8.6 - 10. 5 mg/dL [facility] Chloride [Moles/Vol] 105 mmol/L 98 - 10 8 mmol/L [facility] CO2 [Moles/Vol] 25 mmol/L 21 - 31 mmol/L [facility] Creatinine [Mass/Vol] 0.93 mg/dL 0.50 - 1.20 mg/dL [facility] eGFR, CKD-EPI, Female 64 - PINF [facility] Glucose [Mass/Vol] 159 mg/dL High 70 - 99 mg/dL [facility] Osmolality Calc [Osmolality] 297 [facility] Potassium [Moles/Vol] 3.9 mmol/L 3.5 - 5.0 mmol/L [facility] Sodium [Moles/Vol] 139 mmol/L 135 - 145 mmol/L [facility] Urea nitrogen [Mass/Vol] 20 mg/dL 7 - 25 mg/dL [facility] Urea nitrogen/Creatinine [Mass ratio] 22 mg/mg [facility] Anion gap [Moles/Vol] 13 mmol/L Normal 7-17 [facility] Comment on above: Performed By: #### C 7C, MGO #### [facility] (DEFAULT) [address] [place] [address] 07612 Calcium [Mass/Vol] 9.5 mg/dL Normal 8.6-10.5 [facility] Comment on above: Performed By: #### José 7C, MGO #### [facility] (DEFAULT) [address] [place] [address] 27967 Chloride [Moles/Vol] 105 mmol/L Normal 98-108 [facility] Comment on above: Performed By: #### José 7C, MGO #### [facility] (DEFAULT) [address] [place] [address] 30698 CO2 [Moles/Vol] 25 mmol/L Normal 21-31 [facility] Comment on above: Performed By: #### José 7C, MGO #### [facility] (DEFAULT) [address] [place] [address] 36743 Creatinine [Mass/Vol] 0.93 mg/dL Normal 0.50-1.20 [facility] Comment on above: Performed By: #### José 7C, MGO #### [facility] (DEFAULT) [address] [place] [address] 91650 GFR/1.73 sq M.predicted among non-blacks MDRD (S/P/Bld) [Vol rate/Area] 64 mL/min/{1.73_m2} Normal >=60 [facility] Comment on above: Result Comment: Repo rted eGFR is based on the CKD-EPI 2020 equation using creatinine, age, and sex. Performed By: #### José 7C, MGO #### [facility] (DEFAULT) [address] [place] [address] 98291 Glucose [Mass/Vol] 159 mg/dL High 70-99 [facility] Comment on above: Performed By: #### José 7C, MGO #### [facility] (DEFAULT) [address] [place] [address] 47774 Osmolality [Osmolality] 297 mosm/kg Normal 278-305 [facility] Comment on above: Performed By: #### José 7C, MGO #### [facility] (DEFAULT) [address] [place] [address] 10189 Potassium [Moles/Vol] 3.9 mmol/L Normal 3.5-5.0 [facility] Comment on above: Performed By: #### C 7C, MGO #### [facility] (DEFAULT) [address] [place] [address] Sodium [Moles/Vol] 139 mmol/L Normal 135-145 [facility] Comment on above: Performed By: #### C 7C, MGO #### [facility] (DEFAULT) [address] [place] [address] 72221 Urea nitrogen [Mass/Vol] 20 mg/dL Normal 7-25 [facility] Comment on above: Performed By: #### C 7C, MGO #### [facility] (DEFAULT) [address] [place] [address] 83491 Urea nitrogen/Creatinine [Mass ratio] 22 mg/mg Normal [facility] Comment on above: Performed By: #### C 7C, MGO #### [facility] (DEFAULT) [address] [place] [address] 32659 Bacteria identified Cx Nom ( Body fld)Ordered By: Lina Guaman on 01-13-2024 Bacteria identified Cx Nom (Unsp spec) NO GROWTH DAY 2 OF 2 [facility] Microscopic observation Other stain Nom (Unsp spec) Cytocentrifuge preparation [facility] Microscopic observation Other stain Nom (Unsp spec) Neutrophils, Rare [facility] Microscopic observation Other stain Nom (Unsp spec) Mononuclear cells present [facility] Microscopic observation Other stain Nom (Unsp spec) No organisms seen [facility] CBC,PLATELETSon 01-13-2024 Erythrocyte distribution width (RBC) [Ratio] 12.5 % 10.8 - 14.9 % [facility] Hematocrit (Bld) [Volume fraction] 39.2 % 34.9 - 44.3 % [facility] Hemoglobin (Bld) [Mass/Vol] 12.3 g/dL 11.4 - 15.2 g/dL [facility] Interpretation and review of laboratory results Normal [facility] MCH (RBC) [Entitic mass] 27.6 pg 25.9 - 33.9 pg [facility] MCHC (RBC) [Mass/Vol] 31.4 g/dL 31.4 - 35.9 g/dL [facility] MCV (RBC) [Entitic vol] 88.1 fL 79.6 - 97.7 fL [facility] Platelet mean volume (Bld) [Entitic vol] 10.5 fL 8.5 - 12.2 fL [facility] Platelets (Bld) [#/Vol] 254 10*3/uL 150 - 393 K/uL [facility] RBC (Bld) [#/Vol] 4.45 10*6/uL [facility] WBC (Bld) [#/Vol] 8.81 10*3/uL 3.99 - 11. 19 K/uL [facility] Hematocrit (Bld) [Volume fraction] 39.2 % Normal 34.9-44.3 [facility] Comment on above: Performed By: #### B FLD #### [facility] (DEFAULT) [address] [place] [address] Hemoglobin (Bld) [Mass/Vol] 12.3 g/dL Normal 11.4-15.2 [facility] Comment on above: Performed By: #### B FLD #### [facility] (DEFAULT) [address] [place] [address] MCV (RBC) [Entitic vol] 88.1 fL Normal 79.6-97.7 [facility] Comment on above: Performed By: #### B FLD #### [facility] (DEFAULT) [address] [place] [address] Mean Cell Hgb 27.6 pg Normal 25.9-33.9 [facility] Comment on above: Performed By: #### B FLD #### [facility] (DEFAULT) [address] [address] Mean Cell Hgb Conc 31.4 g/dL Normal 31.4-35.9 [facility] Comment on above: Performed By: #### B FLD #### [facility] (DEFAULT) [address] [address] Platelet mean volume (Bld) [Entitic vol] 10.5 fL Normal 8.5-12.2 [facility] Comment on above: Performed By: #### B FLD #### [facility] (DEFAULT) [address] [address] Platelets (Bld) [#/Vol] 254 10*3/uL Normal 150-393 [facility] Comment on above: Performed By: #### B FLD #### [facility] (DEFAULT) [address] [address] RBC (Bld) [#/Vol] 4.45 10*6/uL Normal 3.91-5.04 [facility] Comment on above: Performed By: #### B FLD #### [facility] (DEFAULT) [address] [address] RBC Distribution 12.5 % Normal 10.8-14.9 [facility] Comment on above: Performed By: #### B FLD #### [facility] (DEFAULT) [address] [place] [address] 62510 WBC (Bld) [#/Vol] 8.81 10*3/uL Normal 3.99-11.19 [facility] Comment on above: Performed By: #### B FLD #### [facility] (DEFAULT) [address] [address] Culture, Blood (WB)on 2023 CUB No growth in 5 days. Normal [facility] Comment on above: Performed By: #### L 500.3400, M200.1000, L503.6005, L503.5510 ####[facility] [address] [place], [place], [address] Performed By: #### M 200.1000 ####[facility] [id number] [facility] [place], [address] GLUCOSE POCon 01-13-2024 Glucose [Mass/Vol] 350 mg/dL High 70 - 99 mg/dL [facility] Interpretation and review of laboratory results Abnormal [facility] POC Sample Type CAPBL [facility] Glucose [Mass/Vol] 339 mg/dL High 70 - 99 mg/dL [facility] Interpretation and review of laboratory results Abnormal [facility] POC Sample Type CAPBL [facility] Glucose [Mass/Vol] 143 mg/dL High 70 - 99 mg/dL [facility] Glucose [Mass/Vol] 179 mg/dL High 70 - 99 mg/dL [facility] Glucose [Mass/Vol] 264 mg/dL High 70 - 99 mg/dL [facility] Interpretation and review of laboratory results Abnormal [facility] POC Sample Type CAPBL [facility] LYME DISEASE BY PCR, FLUIDon 01-13-2024 B. burgdorferi oppA2 gene JAYLIN+non-probe Ql (Unsp spec) Negative Negative [facility] B. garinii+afzelii oppA2 gene JAYLIN+non-probe Ql (Unsp spec) Negative Negative [facility] B. mayonii oppA2 gene JAYLIN+non-probe Ql (Unsp spec) Negative Negative [facility] Microbiologist review Roger (Unsp spec) [Interp] SEE COMMENTS [facility] Specimen source Nom (Unsp spec) [facility] MAGNESIUMon 01-13-2024 Magnesium [Mass/Vol] 1.4 mg/dL Low 1.6 - 2 .6 mg/dL [facility] Magnesium [Mass/Vol] 1.4 mg/dL Low 1.6-2.6 [facility] Comment on above: Performed By: #### C 7C, MGO #### [facility] (DEFAULT) [address] [place] [address] 259[address] No Panel Informationon 01-12 Interpretation and review of laboratory results Abnormal [facility] POC Sample Type CAPBL [facility] Interpretation and review of laboratory results Abnormal [facility] VANCOMYCIN LEVEL, TROUGH (MS E DRUG LEVEL)on 01-13-2024 Interpretation and review of laboratory results Normal [facility] Vancomycin trough [Mass/Vol] 13.6 ug/mL Therapeutic Range: 10.0-20.0 mcg/mL mcg/mL [facility] Vancomycin, Trough 13.6 mcg/mL Normal Therapeut ic Range: 10.0-20.0 mcg/mL [facility] Comment on above: Order Comment: Pleas e draw level at specified interval PRIOR to next dose. Performed By: #### M GIOVANNI, CHM7, HFP #### [facility] (DEFAULT) [address] [address] Basic Metabolic Profile (BMP )on 01-12-2024 BUN Normal 7-18 [facility] Comment on above: Result Comment: Canc elled via OM: Order cancelled - Patient discharged Performed By: #### L 500.2500, L100.0100 ####[facility] [address] [place], [address] BUN/CRE Normal 10-20 [facility] Comment on above: Result Comment: Canc elled via OM: Order cancelled - Patient discharged Performed By: #### L 500.2500, L100.0100 ####[facility] [address] [place], [address] CA,Total Normal 8.5-10.1 [facility] Comment on above: Result Comment: Canc elled via OM: Order cancelled - Patient discharged Performed By: #### L 500.2500, L100.0100 ####[facility] [address] [place], [address] CL Normal 98-107 [facility] Comment on above: Result Comment: Canc elled via OM: Order cancelled - Patient discharged Performed By: #### L 500.2500, L100.0100 ####[facility] [address] [place], [address] CO2 Normal 21.0-32.0 [facility] Comment on above: Result Comment: Canc elled via OM: Order cancelled - Patient discharged Performed By: #### L 500.2500, L100.0100 ####[facility] [address] [place], [address] CREAT,SERUM Normal 0.55-1.02 [facility] Comment on above: Result Comment: Canc elled via OM: Order cancelled - Patient discharged Performed By: #### L 500.2500, L100.0100 ####[facility] [address] [place], [address] EST GFR Normal >60 [facility] Comment on above: Result Comment: Canc elled via OM: Order cancelled - Patient discharged Performed By: #### L 500.2500, L100.0100 ####[facility] [address] [place], [address] EST GFR - AA Normal >60 [facility] Comment on above: Result Comment: Canc elled via OM: Order cancelled - Patient discharged Performed By: #### L 500.2500, L100.0100 ####[facility] [address] [place], [address] GAP Normal 5-15 [facility] Comment on above: Result Comment: Canc elled via OM: Order cancelled - Patient discharged Performed By: #### L 500.2500, L100.0100 ####[facility] [address] [place], [address] GLU Normal 74-106 [facility] Comment on above: Result Comment: Canc elled via OM: Order cancelled - Patient discharged Performed By: #### L 500.2500, L100.0100 ####[facility] [address] [place], [address] Potassium Normal 3.5-5.1 [facility] Comment on above: Result Comment: Canc elled via OM: Order cancelled - Patient discharged Performed By: #### L 500.2500, L100.0100 ####[facility] [address] [place], [address] Basic Metabolic Profile (BMP) Normal 136-145 [facility] Comment on above: Result Comment: Canc elled via OM: Order cancelled - Patient discharged Performed By: #### L 500.2500, L100.0100 ####[facility] [address] [place], [address] CBC W/Diff, Automatedon 06-2 Absolute Neut Normal 2.0-7.7 [facility] Comment on above: Result Comment: Canc elled via OM: Order cancelled - Patient discharged Performed By: #### L 500.2500, L100.0100 ####[facility] [address] [place], [address] HCT Normal 37-47 [facility] Comment on above: Result Comment: Canc elled via OM: Order cancelled - Patient discharged Performed By: #### L 500.2500, L100.0100 ####[facility] [address] [place], [address] HGB Normal 12.0-15.0 [facility] Comment on above: Result Comment: Canc elled via OM: Order cancelled - Patient discharged Performed By: #### L 500.2500, L100.0100 ####[facility] [address] [place], [address] MCH Normal 27.0-32.0 [facility] Comment on above: Result Comment: Canc elled via OM: Order cancelled - Patient discharged Performed By: #### L 500.2500, L100.0100 ####[facility] [address] [place], [address] MCHC Normal 32-36 [facility] Comment on above: Result Comment: Canc elled via OM: Order cancelled - Patient discharged Performed By: #### L 500.2500, L100.0100 ####[facility] [address] [place], [address] MCV Normal 81-99 [facility] Comment on above: Result Comment: Canc elled via OM: Order cancelled - Patient discharged Performed By: #### L 500.2500, L100.0100 ####[facility] [address] [place], [address] NEUT% Normal 47-70 [facility] Comment on above: Result Comment: Canc elled via OM: Order cancelled - Patient discharged Performed By: #### L 500.2500, L100.0100 ####[facility] [address] [place], [address] PLT Normal 150-450 [facility] Comment on above: Result Comment: Canc elled via OM: Order cancelled - Patient discharged Performed By: #### L 500.2500, L100.0100 ####[facility] [address] [place], [address] RBC Normal 4.2-5.4 [facility] Comment on above: Result Comment: Canc elled via OM: Order cancelled - Patient discharged Performed By: #### L 500.2500, L100.0100 ####[facility] [address] [place], [address] RDW CV Normal 11.6-14.6 [facility] Comment on above: Result Comment: Canc elled via OM: Order cancelled - Patient discharged Performed By: #### L 500.2500, L100.0100 ####[facility] [address] [place], [address] RDW SD Normal 35.1-43.9 [facility] Comment on above: Result Comment: Canc elled via OM: Order cancelled - Patient discharged Performed By: #### L 500.2500, L100.0100 ####[facility] [address] [place], [address] WBC Normal 4.4-11.0 [facility] Comment on above: Result Comment: Canc elled via OM: Order cancelled - Patient discharged Performed By: #### L 500.2500, L100.0100 ####[facility] [address] [place], [address] CBC,PLATELETSon 01-12-2024 Erythrocyte distribution width (RBC) [Ratio] 12.6 % 10.8 - 14.9 % [facility] Hematocrit (Bld) [Volume fraction] 36.9 % 34.9 - 44.3 % [facility] Hemoglobin (Bld) [Mass/Vol] 11.6 g/dL 11.4 - 15.2 g/dL [facility] Interpretation and review of laboratory results Normal [facility] MCH (RBC) [Entitic mass] 27.4 pg 25.9 - 33.9 pg [facility] MCHC (RBC) [Mass/Vol] 31.4 g/dL 31.4 - 35.9 g/dL [facility] MCV (RBC) [Entitic vol] 87.2 fL 79.6 - 97.7 fL [facility] Platelet mean volume (Bld) [Entitic vol] 11.4 fL 8.5 - 12.2 fL [facility] Platelets (Bld) [#/Vol] 273 10*3/uL 150 - 393 K/uL [facility] RBC (Bld) [#/Vol] 4.23 10*6/uL [facility] WBC (Bld) [#/Vol] 7.52 10*3/uL 3.99 - 11. 19 K/uL [facility] Hematocrit (Bld) [Volume fraction] 36.9 % Normal 34.9-44.3 [facility] Comment on above: Performed By: #### S URGP #### [facility] (DEFAULT) [address] [address] Hemoglobin (Bld) [Mass/Vol] 11.6 g/dL Normal 11.4-15.2 [facility] Comment on above: Performed By: #### S URGP #### [facility] (DEFAULT) [address] [place] [address] MCV (RBC) [Entitic vol] 87.2 fL Normal 79.6-97.7 [facility] Comment on above: Performed By: #### S URGP #### [facility] (DEFAULT) [address] [address] Mean Cell Hgb 27.4 pg Normal 25.9-33.9 [facility] Comment on above: Performed By: #### S URGP #### [facility] (DEFAULT) [address] [place] [address] Mean Cell Hgb Conc 31.4 g/dL Normal 31.4-35.9 [facility] Comment on above: Performed By: #### S URGP #### [facility] (DEFAULT) [address] [address] Platelet mean volume (Bld) [Entitic vol] 11.4 fL Normal 8.5-12.2 [facility] Comment on above: Performed By: #### S URGP #### [facility] (DEFAULT) [address] [place] [address] Platelets (Bld) [#/Vol] 273 10*3/uL Normal 150-393 [facility] Comment on above: Performed By: #### S URGP #### [facility] (DEFAULT) [address] [place] [address] RBC (Bld) [#/Vol] 4.23 10*6/uL Normal 3.91-5.04 [facility] Comment on above: Performed By: #### S URGP #### [facility] (DEFAULT) [address] [place] [address] RBC Distribution 12.6 % Normal 10.8-14.9 [facility] Comment on above: Performed By: #### S URGP #### [facility] (DEFAULT) [address] [place] [address] WBC (Bld) [#/Vol] 7.52 10*3/uL Normal 3.99-11.19 [facility] Comment on above: Performed By: #### S URGP #### [facility] (DEFAULT) [address] [place] [address] CHEM 7 (LYTES,BUN,CREA,GLUC) Ordered By: Rodrigue Jeffries on 01-12-2024 Anion gap [Moles/Vol] 17 mmol/L 7 - 17 mmol/L [facility] Chloride [Moles/Vol] 106 mmol/L 98 - 10 8 mmol/L [facility] CO2 [Moles/Vol] 21 mmol/L 21 - 31 mmol/L [facility] Creatinine [Mass/Vol] 0.98 mg/dL 0.50 - 1.20 mg/dL [facility] eGFR, CKD-EPI, Female 60 - PINF [facility] Glucose [Mass/Vol] 215 mg/dL High 70 - 99 mg/dL [facility] Interpretation and review of laboratory results Abnormal [facility] Osmolality Calc [Osmolality] 303 [facility] Potassium [Moles/Vol] 4.1 mmol/L 3.5 - 5.0 mmol/L [facility] Sodium [Moles/Vol] 140 mmol/L 135 - 145 mmol/L [facility] Urea nitrogen [Mass/Vol] 21 mg/dL 7 - 25 mg/dL [facility] Urea nitrogen/Creatinine [Mass ratio] 21 mg/mg [facility] CHEM 7 (LYTES,BUN,CREA,GLUC) on 01-12-2024 Anion gap [Moles/Vol] 17 mmol/L Normal 7-17 [facility] Comment on above: Performed By: #### LYN MALONEY, HFP #### [facility] (DEFAULT) [address] [place] [address] Chloride [Moles/Vol] 106 mmol/L Normal 98-108 [facility] Comment on above: Performed By: #### LYN MALONEY, HFP #### [facility] (DEFAULT) [address] [place] [address] CO2 [Moles/Vol] 21 mmol/L Normal 21-31 [facility] Comment on above: Performed By: #### LYN MALONEY, HFP #### [facility] (DEFAULT) [address] [place] [address] Creatinine [Mass/Vol] 0.98 mg/dL Normal 0.50-1.20 [facility] Comment on above: Performed By: #### LYN MALONEY, HFP #### [facility] (DEFAULT) [address] [place] [address] GFR/1.73 sq M.predicted among non-blacks MDRD (S/P/Bld) [Vol rate/Area] 60 mL/min/{1.73_m2} Normal >=60 [facility] Comment on above: Result Comment: Repo rted eGFR is based on the CKD-EPI 2020 equation using creatinine, age, and sex. Performed By: #### LYN MALONEY, HFP #### [facility] (DEFAULT) [address] [place] [address] Glucose [Mass/Vol] 215 mg/dL High 70-99 [facility] Comment on above: Performed By: #### LYN MALONEY, HFP #### [facility] (DEFAULT) [address] [place] [address] Osmolality [Osmolality] 303 mosm/kg Normal 278-305 [facility] Comment on above: Performed By: #### LYN MALONEY, HFP #### [facility] (DEFAULT) [address] [place] [address] Potassium [Moles/Vol] 4.1 mmol/L Normal 3.5-5.0 [facility] Comment on above: Performed By: #### LYN MALONEY, HFP #### [facility] (DEFAULT) [address] [place] [address] Sodium [Moles/Vol] 140 mmol/L Normal 135-145 [facility] Comment on above: Performed By: #### LYN MALONEY, HFP #### [facility] (DEFAULT) [address] [place] [address] Urea nitrogen [Mass/Vol] 21 mg/dL Normal 7-25 [facility] Comment on above: Performed By: #### LYN MALONEY, HFP #### [facility] (DEFAULT) [address] [place] [address] Urea nitrogen/Creatinine [Mass ratio] 21 mg/mg Normal [facility] Comment on above: Performed By: #### LYN MALONEY, HFP #### [facility] (DEFAULT) [address] [place] [address] EXTRA STERILEon 01-12-2024 [facility] GLUCOSE POCon 01-12-2024 Glucose [Mass/Vol] 213 mg/dL High 70 - 99 mg/dL [facility] Interpretation and review of laboratory results Abnormal [facility] POC Sample Type CAPBL [facility] Glucose [Mass/Vol] 198 mg/dL High 70 - 99 mg/dL [facility] Interpretation and review of laboratory results Abnormal [facility] POC Sample Type CAPBL [facility] Glucose [Mass/Vol] 278 mg/dL High 70 - 99 mg/dL [facility] Interpretation and review of laboratory results Abnormal [facility] POC Sample Type CAPBL [facility] Glucose [Mass/Vol] 273 mg/dL High 70 - 99 mg/dL [facility] Glucose [Mass/Vol] 243 mg/dL High 70 - 99 mg/dL [facility] Glucose [Mass/Vol] 230 mg/dL High 70 - 99 mg/dL [facility] HEPATIC FUNCTION PANELon Albumin [Mass/Vol] 3.4 g/dL Low 3.5 - 5.0 g/dL [facility] ALP [Catalytic activity/Vol] 91 U/L 32 - 126 U/L [facility] ALT [Catalytic activity/Vol] 8 U/L Low 9 - 48 U/L [facility] AST [Catalytic activity/Vol] 20 U/L 10 - 39 U/L [facility] Bilirubin [Mass/Vol] 0.4 mg/dL NINF - 1.5 mg/dL [facility] Bilirubin.direct [Mass/Vol] 0.1 mg/dL NINF - 0.3 mg/dL [facility] Interpretation and review of laboratory results Abnormal [facility] Protein [Mass/Vol] 6.3 g/dL Low 6.4 - 8.3 g/dL [facility] Albumin [Mass/Vol] 3.4 g/dL Low 3.5-5.0 [facility] Comment on above: Performed By: #### M GIOVANNI, CHM7, HFP #### [facility] (DEFAULT) [address] [place] [address] ALP [Catalytic activity/Vol] 91 U/L Normal 32-126 [facility] Comment on above: Performed By: #### LYN MALONEY, HFP #### [facility] (DEFAULT) [address] [place] [address] ALT [Catalytic activity/Vol] 8 U/L Low 9-48 [facility] Comment on above: Performed By: #### LYN MALONEY, HFP #### [facility] (DEFAULT) [address] [place] [address] AST [Catalytic activity/Vol] 20 U/L Normal 10-39 [facility] Comment on above: Performed By: #### LYN MALONEY, HFP #### [facility] (DEFAULT) [address] [place] [address] Bilirubin [Mass/Vol] 0.4 mg/dL Normal <1.5 [facility] Comment on above: Performed By: #### LYN MALONEY, HFP #### [facility] (DEFAULT) [address] [place] [address] Bilirubin.indirect [Mass/Vol] 0.1 mg/dL Normal <0.3 [facility] Comment on above: Performed By: #### LYN MALONEY, HFP #### [facility] (DEFAULT) [address] [place] [address] Protein [Mass/Vol] 6.3 g/dL Low 6.4-8.3 [facility] Comment on above: Performed By: #### LYN MALONEY, HFP #### [facility] (DEFAULT) [address] [place] [address] MAGNESIUMon 01-12-2024 Interpretation and review of laboratory results Abnormal [facility] Magnesium [Mass/Vol] 1.4 mg/dL Low 1.6 - 2 .6 mg/dL [facility] Magnesium [Mass/Vol] 1.4 mg/dL Low 1.6-2.6 [facility] Comment on above: Performed By: #### M GO, CHM7, HFP #### [facility] (DEFAULT) [address] [place] [address] No Panel Informationon 01-11 Interpretation and review of laboratory results Abnormal [facility] POC Sample Type CAPBL [facility] BODY FLUID CULTURE AND DIREC T SMEARon 01-11-2024 Bacteria identified Cx Nom (Unsp spec) NO GROWTH DAY 2 OF 2 Normal [facility] Comment on above: Performed By: #### B FLD #### [facility] (DEFAULT) [address] [address] Microscopic observation Gram stain Nom (Unsp spec) Normal [facility] Comment on above: Result Comment: Cyto centrifuge preparation Neutrophils, Rare Mononuclear cells present No organisms seen Performed By: #### B FLD #### [facility] (DEFAULT) [address] [place] [address] Basic Metabolic Profile (BMP )on 01-11-2024 BUN/CRE 20.6 RATIO High 10-20 [facility] Comment on above: Performed By: #### L 500.2500, L100.0100 ####[facility] [address] [place], [address] CA,Total 10.0 mg/dL Normal 8.5-10.1 [facility] Comment on above: Performed By: #### L 500.2500, L100.0100 ####[facility] [address] [place], [address] Chloride [Moles/Vol] 102 mmol/L Normal 98-107 [facility] Comment on above: Performed By: #### L 500.2500, L100.0100 ####[facility] [address] [place], [address] CO2 [Moles/Vol] 22.0 mmol/L Normal 21.0-32.0 [facility] Comment on above: Performed By: #### L 500.2500, L100.0100 ####[facility] [address] [place], [address] Creatinine [Mass/Vol] 1.07 mg/dL High 0.55-1.02 [facility] Comment on above: Result Comment: The validity of the calculated GFR GFRAA in patients over70 years has not been determined. Clinical correlation isessential. Performed By: #### L 500.2500, L100.0100 ####[facility] [address] [place], [address] ECRCL 41.87 ml/min Normal [facility] Comment on above: Performed By: #### L 500.2500, L100.0100 ####[facility] [address] [place], [address] EST GFR - AA 64 mL/min Normal >60 [facility] Comment on above: Result Comment: Afri can Citizen [place] GFR Calc Performed By: #### L 500.2500, L100.0100 ####[facility] [address] [place], [address] GAP 12 Normal 5-15 [facility] Comment on above: Performed By: #### L 500.2500, L100.0100 ####[facility] [address] [place], [address] GFR/1.73 sq M.predicted among non-blacks MDRD (S/P/Bld) [Vol rate/Area] 53 mL/min/{1.73_m2} Low >60 [facility] Comment on above: Result Comment: Non- GFR Calc Performed By: #### L 500.2500, L100.0100 ####[facility] [address] [place], [address] Glucose [Mass/Vol] 274 mg/dL High 74-106 [facility] Comment on above: Result Comment: Gluc ose result greater than or equal to 200 mg/dLsuggests DIABETES MELLITUS per A.D.A. criteria. Performed By: #### L 500.2500, L100.0100 ####[facility] [address] [place], [address] Potassium [Moles/Vol] 3.5 mmol/L Normal 3.5-5.1 [facility] Comment on above: Performed By: #### L 500.2500, L100.0100 ####[facility] [address] [place], [address] Sodium [Moles/Vol] 136 mmol/L Normal 136-145 [facility] Comment on above: Performed By: #### L 500.2500, L100.0100 ####[facility] [address] [place], [address] Urea nitrogen [Mass/Vol] 22 mg/dL High 7-18 [facility] Comment on above: Performed By: #### L 500.2500, L100.0100 ####[facility] [address] [place], [address] Bedside Glucoseon 01-11-2024 FINGERSTICK GLU 267 mg/dL High 74-106 [facility] Comment on above: Result Comment: ADAL GOODEN OF PATIENT CARE PER NURSING PROTOCOL Performed By: #### L 501.080 ####[facility] [address] [place], [address] CBC AND ELECTRONIC DIFFOrder ed By: Aparna Amezcua on 01-11-2024 Basophils (Bld) [#/Vol] 0.06 10*3/uL 0.00 - 0.15 K[facility]L [facility] Basophils/100 WBC (Bld) 0.7 % [facility] Differential cell count method Nom (Bld) Electronic Differential [facility] Eosinophils (Bld) [#/Vol] K/uL 0.00 - 0.42 K/uL [facility] Eosinophils/100 WBC (Bld) 0.3 % [facility] Erythrocyte distribution width (RBC) [Ratio] 12.5 % 10.8 - 14.9 % [facility] Hematocrit (Bld) [Volume fraction] 38.5 % 34.9 - 44.3 % [facility] Hemoglobin (Bld) [Mass/Vol] 12.4 g/dL 11.4 - 15.2 g/dL [facility] Immature granulocytes (Bld) [#/Vol] K/uL NINF - 0.08 K/uL [facility] Immature granulocytes/100 WBC (Bld) 0.2 % [facility] Interpretation and review of laboratory results Abnormal [facility] Lymphocytes (Bld) [#/Vol] 1.06 10*3/uL Low 1.16 - 3.51 K/uL [facility] Lymphocytes/100 WBC (Bld) 11.7 % [facility] MCH (RBC) [Entitic mass] 27.9 pg 25.9 - 33.9 pg [facility] MCHC (RBC) [Mass/Vol] 32.2 g/dL 31.4 - 35.9 g/dL [facility] MCV (RBC) [Entitic vol] 86.7 fL 79.6 - 97.7 fL [facility] Monocytes (Bld) [#/Vol] 0.62 10*3/uL 0.22 - 0.87 K/uL [facility] Monocytes/100 WBC (Bld) 6.9 % [facility] Neutrophils (Bld) [#/Vol] 7.24 10*3/uL 1.64 - 7.28 K/uL [facility] Nucleated RBC/100 WBC (Bld) [Ratio] 0.0 % [facility] Platelet mean volume (Bld) [Entitic vol] 10.8 fL 8.5 - 12.2 fL [facility] Platelets (Bld) [#/Vol] 274 10*3/uL 150 - 393 K/uL [facility] RBC (Bld) [#/Vol] 4.44 10*6/uL [facility] Segmented neutrophils/100 WBC (Bld) 80.2 % [facility] WBC (Bld) [#/Vol] 9.03 10*3/uL 3.99 - 11. 19 K/uL [facility] CBC AND ELECTRONIC DIFFon Abs Eos Auto < Normal 0.00-0.42 [facility] Comment on above: Performed By: #### S URGP #### [facility] (DEFAULT) [address] [place] [address] Basophils (Bld) [#/Vol] 0.06 10*3/uL Normal 0.00-0.15 [facility] Comment on above: Performed By: #### S URGP #### [facility] (DEFAULT) [address] [place] [address] Basophils/100 WBC (Bld) 0.7 % Normal [facility] Comment on above: Performed By: #### S URGP #### [facility] (DEFAULT) [address] [place] [address] DIFF STATUS Electronic Differential Normal [facility] Comment on above: Performed By: #### S URGP #### [facility] (DEFAULT) [address] [place] [address] Eosinophils/100 WBC (Bld) 0.3 % Normal [facility] Comment on above: Performed By: #### S URGP #### [facility] (DEFAULT) [address] [address] Hematocrit (Bld) [Volume fraction] 38.5 % Normal 34.9-44.3 [facility] Comment on above: Performed By: #### S URGP #### [facility] (DEFAULT) [address] [address] Hemoglobin (Bld) [Mass/Vol] 12.4 g/dL Normal 11.4-15.2 [facility] Comment on above: Performed By: #### S URGP #### [facility] (DEFAULT) [address] [place] [address] Immature Grans % 0.2 % Normal [facility] Comment on above: Performed By: #### S URGP #### [facility] (DEFAULT) [address] [address] Immature Grans Absolute < Normal <=0.08 [facility] Comment on above: Performed By: #### S URGP #### [facility] (DEFAULT) [address] [address] [address] Lymphocytes (Bld) [#/Vol] 1.06 10*3/uL Low 1.16-3.51 [facility] Comment on above: Performed By: #### S URGP #### [facility] (DEFAULT) [address] [address] Lymphocytes/100 WBC (Bld) 11.7 % Normal [facility] Comment on above: Performed By: #### S URGP #### [facility] (DEFAULT) [address] [address] MCV (RBC) [Entitic vol] 86.7 fL Normal 79.6-97.7 [facility] Comment on above: Performed By: #### S URGP #### [facility] (DEFAULT) [address] [address] Mean Cell Hgb 27.9 pg Normal 25.9-33.9 [facility] Comment on above: Performed By: #### S URGP #### [facility] (DEFAULT) [address] [address] Mean Cell Hgb Conc 32.2 g/dL Normal 31.4-35.9 [facility] Comment on above: Performed By: #### S URGP #### [facility] (DEFAULT) [address] [place] [address] Monocytes (Bld) [#/Vol] 0.62 10*3/uL Normal 0.22-0.87 [facility] Comment on above: Performed By: #### S URGP #### [facility] (DEFAULT) [address] [place] [address] Monocytes/100 WBC (Bld) 6.9 % Normal [facility] Comment on above: Performed By: #### S URGP #### [facility] (DEFAULT) [address] [place] [address] Nucleated RBC 0.0 /100 WBC Normal <=0.2 [facility] Comment on above: Performed By: #### S URGP #### [facility] (DEFAULT) [address] [place] [address] Platelet mean volume (Bld) [Entitic vol] 10.8 fL Normal 8.5-12.2 [facility] Comment on above: Performed By: #### S URGP #### [facility] (DEFAULT) [address] [address] Platelets (Bld) [#/Vol] 274 10*3/uL Normal 150-393 [facility] Comment on above: Performed By: #### S URGP #### [facility] (DEFAULT) [address] [address] RBC (Bld) [#/Vol] 4.44 10*6/uL Normal 3.91-5.04 [facility] Comment on above: Performed By: #### S URGP #### [facility] (DEFAULT) [address] [place] [address] RBC Distribution 12.5 % Normal 10.8-14.9 [facility] Comment on above: Performed By: #### S URGP #### [facility] (DEFAULT) [address] [address] Segs + Bands Auto 80.2 % Normal [facility] Comment on above: Performed By: #### S URGP #### U [facility] (DEFAULT) [address] [address] Segs + Bands,Absolute Auto 7.24 K/uL Normal 1.64-7.28 [facility] Comment on above: Performed By: #### S URGP #### [facility] (DEFAULT) [address] [place] [address] WBC (Bld) [#/Vol] 9.03 10*3/uL Normal 3.99-11.19 [facility] Comment on above: Performed By: #### S URGP #### U [facility] (DEFAULT) [address] [place] [address] CBC W/Diff, Automatedon 12-15 Absolute Lymph 1.26 X10 3/uL Normal 0.83-4.51 [facility] Comment on above: Performed By: #### L 500.2500, L100.0100 ####[facility] [address] [place], [address] Absolute Neut 9.3 X10 3/uL High 2.0-7.7 [facility] Comment on above: Performed By: #### L 500.2500, L100.0100 ####[facility] [address] [place], [address] Basophils/100 WBC (Bld) 0.6 % Normal 0-1 [facility] Comment on above: Performed By: #### L 500.2500, L100.0100 ####[facility] [address] [place], [address] Eosinophils/100 WBC (Bld) 0.7 % Normal 0-5 [facility] Comment on above: Performed By: #### L 500.2500, L100.0100 ####[facility] [address] [place], [address] Erythrocyte distribution width (RBC) [Ratio] 12.3 % Normal 11.6-14.6 [facility] Comment on above: Performed By: #### L 500.2500, L100.0100 ####[facility] [address] [place], [address] Hematocrit (Bld) [Volume fraction] 39.0 % Normal 37-47 [facility] Comment on above: Performed By: #### L 500.2500, L100.0100 ####[facility] [address] [place], [address] Hemoglobin (Bld) [Mass/Vol] 12.4 g/dL Normal 12.0-15.0 [facility] Comment on above: Performed By: #### L 500.2500, L100.0100 ####[facility] [address] [place], [address] IG% 0.300 Normal 0.0-0.9 [facility] Comment on above: Result Comment: IG% - Immature Granulocytes (promyelocytes, myelocytes andmetamyelocytes) > 1% indicates that a LEFT SHIFT is Present. Performed By: #### L 500.2500, L100.0100 ####[facility] [address] [place], [address] Lymphocytes/100 WBC (Bld) 10.9 % Low 19-41 [facility] Comment on above: Performed By: #### L 500.2500, L100.0100 ####[facility] [address] [place], [address] MCH (RBC) [Entitic mass] 27.8 pg Normal 27.0-32.0 [facility] Comment on above: Performed By: #### L 500.2500, L100.0100 ####[facility] [address] [place], [address] MCHC (RBC) [Mass/Vol] 31.8 g/dL Low 32-36 [facility] Comment on above: Performed By: #### L 500.2500, L100.0100 ####[facility] [address] [place], [address] MCV (RBC) [Entitic vol] 87.4 fL Normal 81-99 [facility] Comment on above: Performed By: #### L 500.2500, L100.0100 ####[facility] [address] [place], [address] Monocytes/100 WBC (Bld) 7.4 % Normal 0-10 [facility] Comment on above: Performed By: #### L 500.2500, L100.0100 ####[facility] [address] [place], [address] Neutrophils/100 WBC (Bld) 80.1 % High 47-70 [facility] Comment on above: Performed By: #### L 500.2500, L100.0100 ####[facility] [address] [place], [address] Nucleated RBC (Bld) [#/Vol] 0 10*3/uL Normal 0-5 [facility] Comment on above: Performed By: #### L 500.2500, L100.0100 ####[facility] [address] [place], [address] Platelet mean volume (Bld) [Entitic vol] 10.3 fL Normal 6.2-12.0 [facility] Comment on above: Performed By: #### L 500.2500, L100.0100 ####[facility] [address] [place], [address] Platelets (Bld) [#/Vol] 270 10*3/uL Normal 150-450 [facility] Comment on above: Performed By: #### L 500.2500, L100.0100 ####[facility] [address] [place], [address] RBC (Bld) [#/Vol] 4.46 10*6/uL Normal 4.2-5.4 [facility] Comment on above: Performed By: #### L 500.2500, L100.0100 ####[facility] [address] [place], [address] RDW SD 39.7 fl Normal 35.1-43.9 [facility] Comment on above: Performed By: #### L 500.2500, L100.0100 ####[facility] [address] [place], [address] WBC (Bld) [#/Vol] 11.6 10*3/uL High 4.4-11.0 [facility] Comment on above: Performed By: #### L 500.2500, L100.0100 ####[facility] [address] [place], [address] CHEM 7 (LYTES,BUN,CREA,GLUC) Ordered By: Kwaku Schwab on 01-11-2024 Anion gap [Moles/Vol] 24 mmol/L High 7 - 17 mmol/L [facility] Chloride [Moles/Vol] 99 mmol/L 98 - 10 8 mmol/L [facility] CO2 [Moles/Vol] 18 mmol/L Low 21 - 31 mmol/L [facility] Creatinine [Mass/Vol] 1.11 mg/dL 0.50 - 1.20 mg/dL [facility] eGFR, CKD-EPI, Female 52 Low - PINF [facility] Glucose [Mass/Vol] 294 mg/dL High 70 - 99 mg/dL [facility] Interpretation and review of laboratory results Abnormal [facility] Osmolality Calc [Osmolality] 303 [facility] Potassium [Moles/Vol] 4.1 mmol/L 3.5 - 5.0 mmol/L [facility] Sodium [Moles/Vol] 137 mmol/L 135 - 145 mmol/L [facility] Urea nitrogen [Mass/Vol] 23 mg/dL 7 - 25 mg/dL [facility] Urea nitrogen/Creatinine [Mass ratio] 21 mg[facility]M 7 (LYTES,BUN,CREA,GLUC) on 01-11-2024 Anion gap [Moles/Vol] 24 mmol/L High 7-17 [facility] Comment on above: Performed By: #### José Quiñones, MGO #### [facility] (DEFAULT) [address] [place] [address] Chloride [Moles/Vol] 99 mmol/L Normal 98-108 [facility] Comment on above: Performed By: #### José Quiñones, MGO #### [facility] (DEFAULT) [address] [place] [address] CO2 [Moles/Vol] 18 mmol/L Low 21-31 [facility] Comment on above: Performed By: #### José Quiñones, MGO #### [facility] (DEFAULT) [address] [place] [address] Creatinine [Mass/Vol] 1.11 mg/dL Normal 0.50-1.20 [facility] Comment on above: Performed By: #### José Quiñones, MGO #### [facility] (DEFAULT) [address] [place] [address] GFR/1.73 sq M.predicted among non-blacks MDRD (S/P/Bld) [Vol rate/Area] 52 mL/min/{1.73_m2} Low >=60 [facility] Comment on above: Result Comment: Repo rted eGFR is based on the CKD-EPI 2020 equation using creatinine, age, and sex. Performed By: #### José Quiñones, MGO #### [facility] (DEFAULT) [address] [place] [address] Glucose [Mass/Vol] 294 mg/dL High 70-99 [facility] Comment on above: Performed By: #### José 7C, MGO #### [facility] (DEFAULT) [address] [place] [address] Osmolality [Osmolality] 303 mosm/kg Normal 278-305 [facility] Comment on above: Performed By: #### José Quiñones, MGO #### [facility] (DEFAULT) [address] [place] [address] Potassium [Moles/Vol] 4.1 mmol/L Normal 3.5-5.0 [facility] Comment on above: Performed By: #### C 7C, MGO #### [facility] (DEFAULT) [address] [place] [address] Sodium [Moles/Vol] 137 mmol/L Normal 135-145 [facility] Comment on above: Performed By: #### C 7C, MGO #### [facility] (DEFAULT) [address] [place] [address] Urea nitrogen [Mass/Vol] 23 mg/dL Normal 7-25 [facility] Comment on above: Performed By: #### José 7C, MGO #### [facility] (DEFAULT) [address] [place] [address] Urea nitrogen/Creatinine [Mass ratio] 21 mg/mg Normal [facility] Comment on above: Performed By: #### José 7C, MGO #### [facility] (DEFAULT) [address] [place] [address] CSF DIFFERENTIALon 4 Basophils (Csf) 0 % Normal [facility] Comment on above: Result Comment: The reference range has not been established for this parameter for this fluid. Clinical correlation is recommended. Performed By: #### L AB951 #### [facility] (DEFAULT) [address] [place] [address] Cells Counted (CSF) 100 Normal [facility] Comment on above: Performed By: #### L AB951 #### [facility] (DEFAULT) [address] [address] Comment (Csf) Normal [facility] Comment on above: Result Comment: No u nequivocal organisms seen. Blood is present. Acute and chronic inflammatory cells present. Correlation with gram stain and culture recommended. Performed By: #### L AB951 #### [facility] (DEFAULT) [address] [place] [address] CSF Tube Number CSF TUBE 4 Normal [facility] Comment on above: Performed By: #### L AB951 #### [facility] (DEFAULT) [address] [place] [address] Performed By: #### B FLD #### [facility] (DEFAULT) [address] [place] [address] Differential Reviewed By Montez Davis MD Normal [facility] Comment on above: Performed By: #### L AB951 #### [facility] (DEFAULT) [address] [place] [address] Eosinophils (Csf) 0 % Normal [facility] Comment on above: Result Comment: The reference range has not been established for this parameter for this fluid. Clinical correlation is recommended. Performed By: #### L AB951 #### [facility] (DEFAULT) [address] [address] Lymphocytes (Csf) 48 % Normal 40-80 [facility] Comment on above: Performed By: #### L AB951 #### [facility] (DEFAULT) [address] [address] Monocytes/Macrophages , CSF 6 % Low 15-45 [facility] Comment on above: Performed By: #### L AB951 #### [facility] (DEFAULT) [address] [address] Neutrophils (Csf) 44 % High <=6 [facility] Comment on above: Performed By: #### L AB951 #### [facility] (DEFAULT) [address] [address] Nucleated RBC/100 WBC (Bld) [Ratio] 2 % Normal [facility] Comment on above: Result Comment: The reference range has not been established for this parameter for this fluid. Clinical correlation is recommended. Performed By: #### L AB951 #### [facility] (DEFAULT) [address] [place] [address] CSF FLUID COUNT ONLYOrdered By: Lottie White on 01-11-2024 Appearance (Body fld) [facility] Appearance (Body fld) Not Indicated [facility] Interpretation and review of laboratory results Abnormal [facility] RBC Manual cnt (CSF) [#/Vol] 248 /uL High NINF - 3 /uL [facility] Tube number Nom (CSF) [ID] CSF TUBE 4 [facility] WBC Manual cnt (CSF) [#/Vol] 5 /uL NINF - 6 /uL [facility] CSF FLUID COUNT ONLYon 01-10 Gross Appearance (Csf) Normal [facility] Comment on above: Result Comment: Eliz Stone Performed By: #### B FLD #### [facility] (DEFAULT) [address] [place] [address] RBC (Bld) [#/Vol] 0.03960 10*6/uL High <[address] [facility] Comment on above: Performed By: #### B FLD #### [facility] (DEFAULT) [address] [place] [address] Supernatant (Csf) Not Indicated Normal [facility] Comment on above: Performed By: #### B FLD #### [facility] (DEFAULT) [address] [place] [address] Total Nucleated Cells (TNC CSF) 5 /uL Normal <6 [facility] Comment on above: Performed By: #### B FLD #### [facility] (DEFAULT) [address] [place] [address] CSF TECH DIFFERENTIALOrdered By: Adry Bernard on 01-11-2024 [facility] ENCEPHALOPATHY, AUTOIMMUNE E VALUATION, CSFon 01-11-2024 AGNA-1,CSF Negative Normal Negative [facility] Comment on above: Result Comment: ADDITIONAL INFORMATION This test was developed and its performance characteristics determined by [facility] in a manner consistent with CLIA requirements. This test has not been cleared or approved by the [place]S. Food and Drug Administration. Performed By: #### Genia FLGennaro #### [facility] (DEFAULT) [address] [place] [address] AMPA-R AB CBA, CSF Negative Normal Negative [facility] Comment on above: Result Comment: ADDITIONAL INFORMATION This test was developed and its performance characteristics determined by [facility] in a manner consistent with CLIA requirements. This test has not been cleared or approved by the [place].S. Food and Drug Administration. Performed By: ###Glenna Cormier FLGennaro #### [facility] (DEFAULT) [address] [place] [address] AMPHIPHYSIN AB, CSF Negative Normal Negative [facility] Comment on above: Result Comment: ADDITIONAL INFORMATION This test was developed and its performance characteristics determined by [facility] in a manner consistent with CLIA requirements. This test has not been cleared or approved by the [place].S. Food and Drug Administration. Performed By: #### Genia FLD #### [facility] (DEFAULT) [address] [place] [address] LANRE-1, CSF Negative Normal Negative [facility] Comment on above: Result Comment: ADDITIONAL INFORMATION This test was developed and its performance characteristics determined by [facility] in a manner consistent with CLIA requirements. This test has not been cleared or approved by the [place].S. Food and Drug Administration. Performed By: #### Genia FLD #### [facility] (DEFAULT) [address] [place] [address] LANRE-2,CSF Negative Normal Negative [facility] Comment on above: Result Comment: ADDITIONAL INFORMATION This test was developed and its performance characteristics determined by [facility] in a manner consistent with CLIA requirements. This test has not been cleared or approved by the U.S. Food and Drug Administration. Performed By: #### B FLD #### [facility] (DEFAULT) [address] [place] [address] LANRE-3,CSF Negative Normal Negative [facility] Comment on above: Result Comment: ADDITIONAL INFORMATION This test was developed and its performance characteristics determined by [facility] in a manner consistent with CLIA requirements. This test has not been cleared or approved by the [place].S. Food and Drug Administration. Performed By: #### Genia FLD #### [facility] (DEFAULT) [address] [place] [address] CASPR2-IgG CBA, CSF Negative Normal Negative [facility] Comment on above: Result Comment: ADDITIONAL INFORMATION This test was developed and its performance characteristics determined by [facility] in a manner consistent with CLIA requirements. This test has not been cleared or approved by the [place].S. Food and Drug Administration. Performed By: #### B FLD #### [facility] (DEFAULT) [address] [place] [address] CRMP-[id number],CSF Negative Normal Negative [facility] Comment on above: Result Comment: ADDITIONAL INFORMATION This test was developed and its performance characteristics determined by [facility] in a manner consistent with CLIA requirements. This test has not been cleared or approved by the [place].S. Food and Drug Administration. Performed By: ###Glenna BAUTISTA #### [facility] (DEFAULT) [address] [place] [address] DPPX AB CBA,CSF Negative Normal Negative [facility] Comment on above: Result Comment: ADDITIONAL INFORMATION This test was developed and its performance characteristics determined by [facility] in a manner consistent with CLIA requirements. This test has not been cleared or approved by the U.S. Food and Drug Administration. Performed By: ###Glenna BAUTISTA #### [facility] (DEFAULT) [address] [place] [address] Encephalopathy, Interpretation, CSF SEE COMMENTS Normal [facility] Comment on above: Result Comment: No i nformative autoantibodies were detected in this evaluation. However, a negative result does not exclude autoimmune encephalopathy, idiopathic or paraneoplastic. Sensitivity and specificity of antibody testing are enhanced by testing both serum and CSF. Performed By: ##Kevin B MICHELE #### [facility] (DEFAULT) [address] [place] [address] RICH-B-R AB CBA, CSF Negative Normal Negative [facility] Comment on above: Result Comment: ADDITIONAL INFORMATION This test was developed and its performance characteristics determined by [facility] in a manner consistent with CLIA requirements. This test has not been cleared or approved by the U.S. Food and Drug Administration. Performed By: #### B FLGennaro #### [facility] (DEFAULT) [address] [place] [address] GAD65 AB ASSAY, CSF 0.00 nmol/L Normal <= 0.02 [facility] Comment on above: Result Comment: ADDITIONAL INFORMATION This test was developed and its performance characteristics determined by [facility] in a manner consistent with CLIA requirements. This test has not been cleared or approved by the U.S. Food and Drug Administration. Performed By: #### B FLD #### [facility] (DEFAULT) [address] [place] [address] GFAP IFA, CSF Negative Normal Negative [facility] Comment on above: Result Comment: ADDITIONAL INFORMATION This test was developed and its performance characteristics determined by [facility] in a manner consistent with CLIA requirements. This test has not been cleared or approved by the U.S. Food and Drug Administration. Performed By: #### Genia FLD #### [facility] (DEFAULT) [address] [place] [address] IFA Notes None. Normal [facility] Comment on above: Performed By: #### Genia FLD #### [facility] (DEFAULT) [address] [place] [address] IgLON5 CBA, CSF Negative Normal Negative [facility] Comment on above: Result Comment: ADDITIONAL INFORMATION This test was developed and its performance characteristics determined by [facility] in a manner consistent with CLIA requirements. This test has not been cleared or approved by the U.S. Food and Drug Administration. Performed By: #### Genia FLD #### [facility] (DEFAULT) [address] [place] [address] LGI1-IgG,CBA,csf Negative Normal Negative [facility] Comment on above: Result Comment: ADDITIONAL INFORMATION This test was developed and its performance characteristics determined by [facility] in a manner consistent with CLIA requirements. This test has not been cleared or approved by the U.S. Food and Drug Administration. Performed By: ###Glenna BAUTISTA #### [facility] (DEFAULT) [address] [place] [address] MGLUR1 AB, IFA, CSF Negative Normal Negative [facility] Comment on above: Result Comment: ADDITIONAL INFORMATION This test was developed and its performance characteristics determined by [facility] in a manner consistent with CLIA requirements. This test has not been cleared or approved by the U.S. Food and Drug Administration. Performed By: ###Glenna Cormier FLGennaro #### [facility] (DEFAULT) [address] [place] [address] Neurochondrin IFA, CSF Negative Normal Negative [facility] Comment on above: Result Comment: ADDITIONAL INFORMATION This test was developed and its performance characteristics determined by [facility] in a manner consistent with CLIA requirements. This test has not been cleared or approved by the U.S. Food and Drug Administration. Performed By: #### Genia FLGennaro #### CORINNE [facility] (DEFAULT) [address] [place] [address] NIF IFA, CSF Negative Normal Negative [facility] Comment on above: Result Comment: ADDITIONAL INFORMATION This test was developed and its performance characteristics determined by [facility] in a manner consistent with CLIA requirements. This test has not been cleared or approved by the U.S. Food and Drug Administration. Performed By: #### Genia FLD #### OSBreanne [facility] (DEFAULT) [address] [place] [address] NMDA-R AB CBA, CSF Negative Normal Negative [facility] Comment on above: Result Comment: ADDITIONAL INFORMATION This test was developed and its performance characteristics determined by [facility] in a manner consistent with CLIA requirements. This test has not been cleared or approved by the U.S. Food and Drug Administration. Performed By: #### B FLD #### [facility] (DEFAULT) [address] [place] [address] RDA-1,CSF Negative Normal Negative [facility] Comment on above: Result Comment: ADDITIONAL INFORMATION This test was developed and its performance characteristics determined by [facility] in a manner consistent with CLIA requirements. This test has not been cleared or approved by the U.S. Food and Drug Administration. Performed By: #### Genia FLD #### [facility] (DEFAULT) [address] [place] [address] RDA-2,CSF Negative Normal Negative [facility] Comment on above: Result Comment: ADDITIONAL INFORMATION This test was developed and its performance characteristics determined by [facility] in a manner consistent with CLIA requirements. This test has not been cleared or approved by the U.S. Food and Drug Administration. Performed By: #### B FLD #### U [facility] (DEFAULT) [address] [place] [address] RDA-TR,CSF Negative Normal Negative [facility] Comment on above: Result Comment: ADDITIONAL INFORMATION This test was developed and its performance characteristics determined by [facility] in a manner consistent with CLIA requirements. This test has not been cleared or approved by the U.S. Food and Drug Administration. Performed By: #### Genia FLD #### [facility] (DEFAULT) [address] [address] PDE10A AB IFA, CSF Negative Normal Negative [facility] Comment on above: Result Comment: ADDITIONAL INFORMATION This test was developed and its performance characteristics determined by [facility] in a manner consistent with CLIA requirements. This test has not been cleared or approved by the U.S. Food and Drug Administration. Performed By: ###Glenna Cormier FLD #### [facility] (DEFAULT) [address] [place] [address] Septin-7 IFA, CSF Negative Normal Negative [facility] Comment on above: Result Comment: ADDITIONAL INFORMATION This test was developed and its performance characteristics determined by [facility] in a manner consistent with CLIA requirements. This test has not been cleared or approved by the U.S. Food and Drug Administration. Performed By: #### Genia FLD #### [facility] (DEFAULT) [address] [place] [address] Tripartite Motif-Containing Protein 46 IgG IFA, CSF Negative Normal Negative [facility] Comment on above: Result Comment: ADDITIONAL INFORMATION This test was developed and its performance characteristics determined by [facility] in a manner consistent with CLIA requirements. This test has not been cleared or approved by the U.S. Food and Drug Administration. Test Performed by: [address] [address] [employer]: Dennis Shields Ph.D.; CLIA# [id number] Performed By: ###Glenna Cormier FLD #### [facility]Bre[facility] (DEFAULT) [address] [address] GENERAL PROCEDUREon 01-11-20 [facility] Radiology Study observation (narrative) [facility] GLUCOSE POCon 01-11-2024 Glucose [Mass/Vol] 268 mg/dL High 70 - 99 mg/dL [facility] Interpretation and review of laboratory results Abnormal [facility] POC Sample Type CAPBL [facility] HIV 1 AND 2 ANTIBODIES/P24 A NTIGENOrdered By: Sandy Fernandez on 01-11-2024 HIV 1+2 Ab+HIV1 p24 Ag IA Ql Non-Reactive Non Reactive [facility] Interpretation and review of laboratory results Normal [facility] HIV 1 AND 2 ANTIBODIES/P24 A NTIGENon 01-11-2024 HIV-1/HIV-2 Ab With p24 Antigen Non-Reactive Normal Non Reactive [facility] Comment on above: Performed By: #### S URGP #### [facility] (DEFAULT) [address] [address] LYME ABon 01-11-2024 Lyme Antibody Negative Normal Negative [facility] Comment on above: Performed By: #### M GO, CHM7, HFP #### [facility] (DEFAULT) [address] [address] LYME DISEASE BY PCR, FLUIDon 01-11-2024 B. BURGDORFERI AB Negative Normal Negative [facility] Comment on above: Performed By: #### B FLD #### [facility] (DEFAULT) [address] [address] B. garinii/B. afzelii Negative Normal Negative [facility] Comment on above: Performed By: #### B FLD #### [facility] (DEFAULT) [address] [address] B. mayonii Negative Normal Negative [facility] Comment on above: Performed By: #### B FLD #### [facility] (DEFAULT) [address] [address] Borrelia Species DNA Detection by PCR SEE COMMENTS Normal [facility] Comment on above: Result Comment: If c linical features of illness are highly indicative of Lyme neuroborreliosis, additional serological testing would be recommended. ADDITIONAL INFORMATION This test was developed and its performance characteristics determined by [facility] in a manner consistent with CLIA requirements. This test has not been cleared or approved by the U.S. Food and Drug Administration. Test Performed by: [facility] [place] [address] [employer]: Dennis Shields Ph.D.; CLIA# [id number] Performed By: #### B FLD #### [facility] (DEFAULT) [address] [address] Borrelia Species Source csf Normal [facility] Comment on above: Performed By: #### B FLD #### [facility] (DEFAULT) [address] [address] MENINGITIS/ENCEPHALITIS PANE L, CSFOrdered By: Binu Gamino on 01-11-2024 C. gattii+neoformans DNA JAYLIN+non-probe Ql (CSF) Not detected Not Detected [facility] CMV DNA JAYLIN+non-probe Ql (CSF) Not detected Not Detected [facility] E. coli K1 DNA JAYLIN+non-probe Ql (CSF) Not detected Not Detected [facility] Enterovirus RNA JAYLIN+non-probe Ql (CSF) Not detected Not Detected [facility] H. influenzae DNA JAYLIN+non-probe Ql (CSF) Not detected Not Detected [facility] HHV 6 DNA JAYLIN+non-probe Ql (CSF) Not detected Not Detected [facility] HSV 1 DNA JAYLIN+non-probe Ql (CSF) Not detected Not Detected [facility] HSV 2 DNA JAYLIN+non-probe Ql (CSF) Not detected Not Detected [facility] Interpretation and review of laboratory results Normal [facility] L. monocytogenes DNA JAYLIN+non-probe Ql (CSF) Not detected Not Detected [facility] N. meningitidis DNA JAYLIN+non-probe Ql (CSF) Not detected Not Detected [facility] Parechovirus A RNA JAYLIN+non-probe Ql (CSF) Not detected Not Detected [facility] S. agalactiae DNA JAYLIN+non-probe Ql (CSF) Not detected Not Detected [facility] S. pneumoniae DNA JAYLIN+non-probe Ql (CSF) Not detected Not Detected [facility] VZV DNA JAYLIN+non-probe Ql (CSF) Not detected Not Detected [facility] MENINGITIS/ENCEPHALITIS PANE L, CSFon 01-11-2024 CMV DNA Not detected Normal Not Detected [facility] Comment on above: Order Comment: A neg ative result does not exclude the possibility of [employer] CHAIR infection and should not be used as [...] neoformans/bárbara. Performed By: #### B FLD #### [facility] (DEFAULT) [address] [place] [address] Cryptococcus Bárbara/Neoformans DNA Not detected Normal Not Detected [facility] Comment on above: Order Comment: A neg ative result does not exclude the possibility of [employer] CHAIR infection and should not be used as [...] neoformans/bárbara. Performed By: #### B FLD #### [facility] (DEFAULT) [address] [place] [address] E. Coli K1 DNA Not detected Normal Not Detected [facility] Comment on above: Order Comment: A neg ative result does not exclude the possibility of [employer] CHAIR infection and should not be used as [...] neoformans/bárbara. Performed By: #### B FLD #### [facility] (DEFAULT) [address] [place] [address] Enterovirus RNA Not detected Normal Not Detected [facility] Comment on above: Order Comment: A neg ative result does not exclude the possibility of [employer] CHAIR infection and should not be used as [...] Performed By: #### B FLD #### [facility] (DEFAULT) [address] [address] Haemophilus Influenza DNA Not detected Normal Not Detected [facility] Comment on above: Order Comment: A neg ative result does not exclude the possibility of [employer] CHAIR infection and should not be used as [...] Performed By: #### B FLD #### [facility] (DEFAULT) [address] [address] Hhv-6 DNA Not detected Normal Not Detected [facility] Comment on above: Order Comment: A neg ative result does not exclude the possibility of [employer] CHAIR infection and should not be used as [...] Performed By: #### B FLD #### U [facility] (DEFAULT) [address] [place] [address] Hsv-1 DNA Not detected Normal Not Detected [facility] Comment on above: Order Comment: A neg ative result does not exclude the possibility of [employer] CHAIR infection and should not be used as [...] Performed By: #### B FLD #### U [facility] (DEFAULT) [address] [place] [address] Hsv-2 DNA Not detected Normal Not Detected [facility] Comment on above: Order Comment: A neg ative result does not exclude the possibility of [employer] CHAIR infection and should not be used as [...] Performed By: #### B FLD #### [facility] (DEFAULT) [address] [place] [address] Human Parechovirus RNA Not detected Normal Not Detected [facility] Comment on above: Order Comment: A neg ative result does not exclude the possibility of [employer] CHAIR infection and should not be used as [...] neoformans/bárbara. Performed By: #### B FLD #### [facility] (DEFAULT) [address] [place] [address] Listeria Monocytogenes DNA Not detected Normal Not Detected [facility] Comment on above: Order Comment: A neg ative result does not exclude the possibility of [employer] CHAIR infection and should not be used as [...] Performed By: #### B FLD #### U [facility] (DEFAULT) [address] [place] [address] Neisseria Meningitidis DNA Not detected Normal Not Detected [facility] Comment on above: Order Comment: A neg ative result does not exclude the possibility of [employer] CHAIR infection and should not be used as [...] Performed By: #### B FLD #### [facility] (DEFAULT) [address] [address] Streptococcus Agalactiae DNA Not detected Normal Not Detected [facility] Comment on above: Order Comment: A neg ative result does not exclude the possibility of [employer] CHAIR infection and should not be used as [...] Performed By: #### B FLD #### [facility] (DEFAULT) [address] [address] Streptococcus Pneumoniae DNA Not detected Normal Not Detected [facility] Comment on above: Order Comment: A neg ative result does not exclude the possibility of [employer] CHAIR infection and should not be used as [...] Performed By: #### B FLD #### [facility] (DEFAULT) [address] [address] Varicella Zoster DNA Not detected Normal Not Detected [facility] Comment on above: Order Comment: A neg ative result does not exclude the possibility of [employer] CHAIR infection and should not be used as [...] neoformans/bárbara. Performed By: #### B FLD #### [facility] (DEFAULT) [address] [place] [address] PROTEIN & GLUCOSE, CSFOrdere d By: Mackenzie Barnes on 01-11-2024 Glucose (CSF) [Mass/Vol] 143 mg/dL High 40 - 70 mg/dL [facility] Interpretation and review of laboratory results Abnormal [facility] Protein (CSF) [Mass/Vol] 88 mg/dL High 15 - 45 mg/dL [facility] PROTEIN & GLUCOSE, CSFon CSF Glucose 143 mg/dL High 40-70 [facility] Comment on above: Performed By: #### B FLD #### [facility] (DEFAULT) [address] [place] [address] CSF Protein 88 mg/dL High 15-45 [facility] Comment on above: Performed By: #### B FLD #### [facility] (DEFAULT) [address] [place] [address] PT,INR,PTTon 01-11-2024 aPTT Coag (PPP) [Time] 32.7 s [facility] INR Coag (Bld) [Relative time] 1.1 {INR} 0.9 - 1.1 [facility] Interpretation and review of laboratory results Abnormal [facility] PT Coag (PPP) [Time] 14.6 s High [facility] aPTT Coag (Bld) [Time] 32.7 s Normal 24.0-34.3 [facility] Comment on above: Performed By: #### LYN MALONEY, HFP #### [facility] (DEFAULT) [address] [place] [address] INR Coag (PPP) [Relative time] 1.1 {INR} Normal 0.9-1.1 [facility] Comment on above: Performed By: #### LYN MALONEY, HFP #### [facility] (DEFAULT) [address] [place] [address] PT Coag (PPP) [Time] 14.6 s High 11.9-14.2 [facility] Comment on above: Performed By: #### LYN MALONEY, HFP #### [facility] (DEFAULT) [address] [place] [address] RF Guidance for fluid aspira tion of Lumbar spine spaceon 01-11-2024 RADIOLOGY RADIOLOGY [facility] Radiology Study observation (narrative) [facility] RF Guidance for fluid aspira tion of Lumbar spine spaceOrdered By: Que Morelos on 01-11-2024 [facility] Work Phone: RPR WITH TITERon 01-11-2024 Reagin Ab RPR Ql (S) Non-Reactive Normal Non Reactive [facility] Comment on above: Performed By: #### LYN MALONEY, HFP #### [facility] (DEFAULT) [address] [place] [address] T. pallidum Ab Ql (S)Ordered By: Rox Victor on 01-11-2024 Interpretation and review of laboratory results Normal [facility] Reagin Ab RPR Ql (S) Non-Reactive Non Reactive [facility] XR FLUORO LUMBAR PUNCTUREon 01-11-2024 XR FLUORO [...] have reviewed and approved this report. Normal [facility] Basic Metabolic Profile (BMP )on 01-10-2024 BUN/CRE 24.2 RATIO High 10-20 [facility] Comment on above: Performed By: #### L 100.0500, L500.2500 ####[facility] [address] [place], [place], [id number] CA,Total 9.7 mg/dL Normal 8.5-10.1 [facility] Comment on above: Performed By: #### L 100.0500, L500.2500 ####[facility] [address] [place], [address] Chloride [Moles/Vol] 107 mmol/L Normal 98-107 [facility] Comment on above: Performed By: #### L 100.0500, L500.2500 ####[facility] [address] [place], [address] CO2 [Moles/Vol] 23.0 mmol/L Normal 21.0-32.0 [facility] Comment on above: Performed By: #### L 100.0500, L500.2500 ####[facility] [address] [place], [address] Creatinine [Mass/Vol] 1.20 mg/dL High 0.55-1.02 [facility] Comment on above: Result Comment: The validity of the calculated GFR GFRAA in patients over70 years has not been determined. Clinical correlation isessential. Performed By: #### L 100.0500, L500.2500 ####[facility] [address] [place], [address] ECRCL 37.34 ml/min Normal [facility] Comment on above: Performed By: #### L 100.0500, L500.2500 ####[facility] [address] [place], [address] EST GFR - AA 56 mL/min Low >60 [facility] Comment on above: Result Comment: Afri can Citizen [place] GFR Calc Performed By: #### L 100.0500, L500.2500 ####[facility] [address] [place], [address] GAP 9 Normal 5-15 [facility] Comment on above: Performed By: #### L 100.0500, L500.2500 ####[facility] [address] [place], [address] GFR/1.73 sq M.predicted among non-blacks MDRD (S/P/Bld) [Vol rate/Area] 46 mL/min/{1.73_m2} Low >60 [facility] Comment on above: Result Comment: Non- GFR Calc Performed By: #### L 100.0500, L500.2500 ####[facility] [address] [place], [address] Glucose [Mass/Vol] 225 mg/dL High 74-106 [facility] Comment on above: Result Comment: Gluc ose result greater than or equal to 200 mg/dLsuggests DIABETES MELLITUS per A.D.A. criteria. Performed By: #### L 100.0500, L500.2500 ####[facility] [address] [place], [address] Potassium [Moles/Vol] 3.3 mmol/L Low 3.5-5.1 [facility] Comment on above: Performed By: #### L 100.0500, L500.2500 ####[facility] [address] [place], [address] Sodium [Moles/Vol] 139 mmol/L Normal 136-145 [facility] Comment on above: Performed By: #### L 100.0500, L500.2500 ####[facility] [address] [place], [address] Urea nitrogen [Mass/Vol] 29 mg/dL High 7-18 [facility] Comment on above: Performed By: #### L 100.0500, L500.2500 ####[facility] [address] [place], [address] Bedside Glucoseon 01-10-2024 FINGERSTICK GLU 201 mg/dL High 74-106 [facility] Comment on above: Result Comment: ADAL GEMENT OF PATIENT CARE PER NURSING PROTOCOL Performed By: #### L 501.080 ####[facility] [address] [place], [address] FINGERSTICK GLU 266 mg/dL High 74-106 [facility] Comment on above: Result Comment: ADAL GEMENT OF PATIENT CARE PER NURSING PROTOCOL Performed By: #### L 501.080 ####[facility] [address] [place], [address] CBC-Complete Blood Cnt No Di ffon 01-10-2024 Erythrocyte distribution width (RBC) [Ratio] 12.6 % Normal 11.6-14.6 [facility] Comment on above: Performed By: #### L 100.0500, L500.2500 ####[facility] [address] [place], [address] Hematocrit (Bld) [Volume fraction] 35.7 % Low 37-47 [facility] Comment on above: Performed By: #### L 100.0500, L500.2500 ####[facility] [address] [place], [address] Hemoglobin (Bld) [Mass/Vol] 11.2 g/dL Low 12.0-15.0 [facility] Comment on above: Performed By: #### L 100.0500, L500.2500 ####[facility] [address] [place], [address] MCH (RBC) [Entitic mass] 27.7 pg Normal 27.0-32.0 [facility] Comment on above: Performed By: #### L 100.0500, L500.2500 ####[facility] [address] [place], [address] MCHC (RBC) [Mass/Vol] 31.4 g/dL Low 32-36 [facility] Comment on above: Performed By: #### L 100.0500, L500.2500 ####[facility] [address] [place], [address] MCV (RBC) [Entitic vol] 88.1 fL Normal 81-99 [facility] Comment on above: Performed By: #### L 100.0500, L500.2500 ####[facility] [address] [place], [address] Platelet mean volume (Bld) [Entitic vol] 10.7 fL Normal 6.2-12.0 [facility] Comment on above: Performed By: #### L 100.0500, L500.2500 ####[facility] [address] [place], [address] Platelets (Bld) [#/Vol] 246 10*3/uL Normal 150-450 [facility] Comment on above: Performed By: #### L 100.0500, L500.2500 ####[facility] [address] [place], [address] RBC (Bld) [#/Vol] 4.05 10*6/uL Low 4.2-5.4 [facility] Comment on above: Performed By: #### L 100.0500, L500.2500 ####[facility] [address] [place], [address] RDW SD 40.6 fl Normal 35.1-43.9 [facility] Comment on above: Performed By: #### L 100.0500, L500.2500 ####[facility] [address] [place], [address] WBC (Bld) [#/Vol] 8.6 10*3/uL Normal 4.4-11.0 [facility] Comment on above: Performed By: #### L 100.0500, L500.2500 ####[facility] [address] [place], [address] Consultation - Infectious Dx on 01-10-2024 Consultation - Infectious Dx Normal [facility] RESPIRATORY PANEL MOLECULARo n 01-10-2024 RP PANEL Normal [facility] Comment on above: Performed By: #### M 100.638 ####[facility] [address] [place], [address] Vancomycin, Trough Levelon 0 01-10-2024 VANCO, TROUGH 14.5 ug/mL Normal 5.0-15.0 [facility] Comment on above: Order Comment: Comme nts: Trough to be drawn 30 mins prior to scheduled [id number] Result Comment: VANC OMYCIN STANDARED DRUG THERAPY TROUGH LEVEL: 5.0 - 15.0 mg/LVANCOMYCIN HIGH INTENSITY THERAPY TROUGH LEVEL: 15.0 - 20.0 mg/LHigh Intensity therapy recommended for serious lifethreatening infections include:- Rknapfinpa-Rzxmkcuveyzc-Qgsxzryja ([employer])-SepsisPLEASE CONTACT PHARMACY SERVICES (#0904) FOR INTERPRETATIONOF RESULTS. Performed By: #### L 501.8820 ####[facility] [address] [place], [address] Basic Metabolic Profile (BMP )on 01-09-2024 BUN/CRE 20.6 RATIO High 10-20 [facility] Comment on above: Performed By: #### L 100.0100, L500.2500 ####[facility] [address] [place], [address] CA,Total 10.2 mg/dL High 8.5-10.1 [facility] Comment on above: Performed By: #### L 100.0100, L500.2500 ####[facility] [address] [place], [address] Chloride [Moles/Vol] 104 mmol/L Normal 98-107 [facility] Comment on above: Performed By: #### L 100.0100, L500.2500 ####[facility] [address] [place], [address] CO2 [Moles/Vol] 28.0 mmol/L Normal 21.0-32.0 [facility] Comment on above: Performed By: #### L 100.0100, L500.2500 ####[facility] [address] [place], [address] Creatinine [Mass/Vol] 1.26 mg/dL High 0.55-1.02 [facility] Comment on above: Result Comment: The validity of the calculated GFR GFRAA in patients over70 years has not been determined. Clinical correlation isessential. Performed By: #### L 100.0100, L500.2500 ####[facility] [address] [place], [address] ECRCL 35.56 ml/min Normal [facility] Comment on above: Performed By: #### L 100.0100, L500.2500 ####[facility] [address] [place], [address] EST GFR - AA 53 mL/min Low >60 [facility] Comment on above: Result Comment: Afri can Citizen [place] GFR Calc Performed By: #### L 100.0100, L500.2500 ####[facility] [address] [place], [address] GAP 7 Normal 5-15 [facility] Comment on above: Performed By: #### L 100.0100, L500.2500 ####[facility] [address] [place], [address] GFR/1.73 sq M.predicted among non-blacks MDRD (S/P/Bld) [Vol rate/Area] 44 mL/min/{1.73_m2} Low >60 [facility] Comment on above: Result Comment: Non- GFR Calc Performed By: #### L 100.0100, L500.2500 ####[facility] [address] [place], [address] Glucose [Mass/Vol] 218 mg/dL High 74-106 [facility] Comment on above: Result Comment: Gluc ose result greater than or equal to 200 mg/dLsuggests DIABETES MELLITUS per A.D.A. criteria. Performed By: #### L 100.0100, L500.2500 ####[facility] [address] [place], [address] Potassium [Moles/Vol] 3.4 mmol/L Low 3.5-5.1 [facility] Comment on above: Performed By: #### L 100.0100, L500.2500 ####[facility] [address] [place], [address] Sodium [Moles/Vol] 139 mmol/L Normal 136-145 [facility] Comment on above: Performed By: #### L 100.0100, L500.2500 ####[facility] [address] [place], [address] Urea nitrogen [Mass/Vol] 26 mg/dL High 7-18 [facility] Comment on above: Performed By: #### L 100.0100, L500.2500 ####[facility] [address] [place], [address] Bedside Glucoseon 01-09-2024 FINGERSTICK GLU 171 mg/dL High 74-106 [facility] Comment on above: Result Comment: ADAL GEMENT OF PATIENT CARE PER NURSING PROTOCOL Performed By: #### L 501.080 ####[facility] [address] [place], [address] FINGERSTICK GLU 182 mg/dL High 74-106 [facility] Comment on above: Result Comment: ADAL GEMENT OF PATIENT CARE PER NURSING PROTOCOL Performed By: #### L 501.080 ####[facility] [address] [place], [address] FINGERSTICK GLU 199 mg/dL High 74-106 [facility] Comment on above: Result Comment: ADAL GEMENT OF PATIENT CARE PER NURSING PROTOCOL Performed By: #### L 501.080 ####[facility] [address] [place], [address] CBC W/Diff, Automatedon 06-2 Absolute Lymph 1.80 X10 3/uL Normal 0.83-4.51 [facility] Comment on above: Performed By: #### L 100.0100, L500.2500 ####[facility] [address] [place], [address] Absolute Neut 10.1 X10 3/uL High 2.0-7.7 [facility] Comment on above: Performed By: #### L 100.0100, L500.2500 ####[facility] [address] [place], [address] Basophils/100 WBC (Bld) 0.4 % Normal 0-1 [facility] Comment on above: Performed By: #### L 100.0100, L500.2500 ####[facility] [address] [place], [address] Eosinophils/100 WBC (Bld) 0.0 % Normal 0-5 [facility] Comment on above: Performed By: #### L 100.0100, L500.2500 ####[facility] [address] [place], [address] Erythrocyte distribution width (RBC) [Ratio] 12.5 % Normal 11.6-14.6 [facility] Comment on above: Performed By: #### L 100.0100, L500.2500 ####[facility] [address] [place], [address] Hematocrit (Bld) [Volume fraction] 34.5 % Low 37-47 [facility] Comment on above: Performed By: #### L 100.0100, L500.2500 ####[facility] [address] [place], [address] Hemoglobin (Bld) [Mass/Vol] 10.9 g/dL Low 12.0-15.0 [facility] Comment on above: Performed By: #### L 100.0100, L500.2500 ####[facility] [address] [place], [address] IG% 0.500 Normal 0.0-0.9 [facility] Comment on above: Result Comment: IG% - Immature Granulocytes (promyelocytes, myelocytes andmetamyelocytes) > 1% indicates that a LEFT SHIFT is Present. Performed By: #### L 100.0100, L500.2500 ####[facility] [address] [place], [address] Lymphocytes/100 WBC (Bld) 13.5 % Low 19-41 [facility] Comment on above: Performed By: #### L 100.0100, L500.2500 ####[facility] [address] [place], [address] MCH (RBC) [Entitic mass] 27.5 pg Normal 27.0-32.0 [facility] Comment on above: Performed By: #### L 100.0100, L500.2500 ####[facility] [address] [place], [address] MCHC (RBC) [Mass/Vol] 31.6 g/dL Low 32-36 [facility] Comment on above: Performed By: #### L 100.0100, L500.2500 ####[facility] [address] [place], [address] MCV (RBC) [Entitic vol] 87.1 fL Normal 81-99 [facility] Comment on above: Performed By: #### L 100.0100, L500.2500 ####[facility] [address] [place], [address] Monocytes/100 WBC (Bld) 10.0 % Normal 0-10 [facility] Comment on above: Performed By: #### L 100.0100, L500.2500 ####[facility] [address] [place], [address] Neutrophils/100 WBC (Bld) 75.6 % High 47-70 [facility] Comment on above: Performed By: #### L 100.0100, L500.2500 ####[facility] [address] [place], [address] Nucleated RBC (Bld) [#/Vol] 0 10*3/uL Normal 0-5 [facility] Comment on above: Performed By: #### L 100.0100, L500.2500 ####[facility] [address] [place], [address] Platelet mean volume (Bld) [Entitic vol] 11.1 fL Normal 6.2-12.0 [facility] Comment on above: Performed By: #### L 100.0100, L500.2500 ####[facility] [address] [place], [address] Platelets (Bld) [#/Vol] 286 10*3/uL Normal 150-450 [facility] Comment on above: Performed By: #### L 100.0100, L500.2500 ####[facility] [address] [place], [address] RBC (Bld) [#/Vol] 3.96 10*6/uL Low 4.2-5.4 [facility] Comment on above: Performed By: #### L 100.0100, L500.2500 ####[facility] [address] [place], [address] RDW SD 39.9 fl Normal 35.1-43.9 [facility] Comment on above: Performed By: #### L 100.0100, L500.2500 ####[facility] [address] [place], [address] WBC (Bld) [#/Vol] 13.3 10*3/uL High 4.4-11.0 [facility] Comment on above: Performed By: #### L 100.0100, L500.2500 ####[facility] [address] [place], [address] Lipid Profileon 01-09-2024 Cholesterol [Mass/Vol] 135 mg/dL Normal 200 [facility] Comment on above: Order Comment: Comme nts: NPO at [place] prior to lipid panel Result Comment: <200 mg/dL Desirable 200-240 mg/dL Borderline >240 mg/dL High Risk Performed By: #### L 500.4100 ####[facility] [address] [place], [address] Cholesterol in HDL [Mass/Vol] 68 mg/dL Normal [facility] Comment on above: Order Comment: Comme nts: NPO at MN prior to lipid panel Result Comment: The drugs N-Acetylcysteine and Metamizole may falselydepress this assay. Reference Range HDL <40 mg/dL Low HDL Cholesterol HDL >or= 60 mg/dL High HDL Cholesterol Performed By: #### L 500.4100 ####[facility] [address] [place], [address] Cholesterol in LDL [Mass/Vol] 54 mg/dL Normal 0-130 [facility] Comment on above: Order Comment: Comme nts: NPO at [place] prior to lipid panel Performed By: #### L 500.4100 ####[facility] [address] [place], [address] Cholesterol in VLDL [Mass/Vol] 13 mg/dL Normal 5-40 [facility] Comment on above: Order Comment: Comme nts: NPO at [place] prior to lipid panel Performed By: #### L 500.4100 ####[facility] [address] [place], [address] Triglyceride [Mass/Vol] 64 mg/dL Normal [facility] Comment on above: Order Comment: Comme nts: NPO at [place] prior to lipid panel Result Comment: The drugs N-Acetylcysteine and Metamizole may falselydepress this assay.Serum Triglycerides Reference Interval Normal <150 mg/dL Borderline high 150 - 199 mg/dL High 200 - 499 mg/dL Very High > or = 500 mg/dL Performed By: #### L 500.4100 ####[facility] [address] [place], [address] 12 Lead EKGon 01-08-2024 12 Lead EKG Normal [facility] Ammoniaon 01-08-2024 Ammonia (P) [Moles/Vol] 13.0 umol/L Normal 11-32 [facility] Comment on above: Performed By: #### L 500.3400, M200.1000, L503.6005, L503.5510 ####[facility] [address] [place], [address] Basic Metabolic Profile (BMP )on 01-08-2024 BUN/CRE 18.2 RATIO Normal 10-20 [facility] Comment on above: Order Comment: 'TROP ' Serial specimen #1, #2 or #3: 1 Performed By: #### L 300.3900, L300.4310, L100.0100, L500.2500, L501.4020 ####[facility] [address] [place], [address] CA,Total 10.3 mg/dL High 8.5-10.1 [facility] Comment on above: Order Comment: 'TROP ' Serial specimen #1, #2 or #3: 1 Performed By: #### L 300.3900, L300.4310, L100.0100, L500.2500, L501.4020 ####[facility] [address] [place], [address] Chloride [Moles/Vol] 93 mmol/L Low 98-107 [facility] Comment on above: Order Comment: 'TROP ' Serial specimen #1, #2 or #3: 1 Performed By: #### L 300.3900, L300.4310, L100.0100, L500.2500, L501.4020 ####[facility] [address] [place], [address] CO2 [Moles/Vol] 31.0 mmol/L Normal 21.0-32.0 [facility] Comment on above: Order Comment: 'TROP ' Serial specimen #1, #2 or #3: 1 Performed By: #### L 300.3900, L300.4310, L100.0100, L500.2500, L501.4020 ####[facility] [address] [place], [address] Creatinine [Mass/Vol] 1.43 mg/dL High 0.55-1.02 [facility] Comment on above: Order Comment: 'TROP ' Serial specimen #1, #2 or #3: 1 Result Comment: The validity of the calculated GFR GFRAA in patients over70 years has not been determined. Clinical correlation isessential. Performed By: #### L 300.3900, L300.4310, L100.0100, L500.2500, L501.4020 ####[facility] [address] [place], [address] ECRCL 31.33 ml/min Normal [facility] Comment on above: Order Comment: 'TROP ' Serial specimen #1, #2 or #3: 1 Performed By: #### L 300.3900, L300.4310, L100.0100, L500.2500, L501.4020 ####[facility] [address] [place], [address] EST GFR - AA 46 mL/min Low >60 [facility] Comment on above: Order Comment: 'TROP ' Serial specimen #1, #2 or #3: 1 Result Comment: Afri can Citizen [place] GFR Calc Performed By: #### L 300.3900, L300.4310, L100.0100, L500.2500, L501.4020 ####[facility] [address] [place], [address] GAP 6 Normal 5-15 [facility] Comment on above: Order Comment: 'TROP ' Serial specimen #1, #2 or #3: 1 Performed By: #### L 300.3900, L300.4310, L100.0100, L500.2500, L501.4020 ####[facility] [address] [place], [address] GFR/1.73 sq M.predicted among non-blacks MDRD (S/P/Bld) [Vol rate/Area] 38 mL/min/{1.73_m2} Low >60 [facility] Comment on above: Order Comment: 'TROP ' Serial specimen #1, #2 or #3: 1 Result Comment: Non- GFR Calc Performed By: #### L 300.3900, L300.4310, L100.0100, L500.2500, L501.4020 ####[facility] [address] [place], [address] Glucose [Mass/Vol] 566 mg/dL Invalid Interpretation Code 74106 [facility] Comment on above: Order Comment: 'TROP ' Serial specimen #1, #2 or #3: 1 Result Comment: Crit ical Result(s) Called at: 08:03:04 01/08/2024 by:SAI Saladna. Results read back by same.Glucose result greater than or equal to 200 mg/dLsuggests DIABETES MELLITUS per A.D.A. criteria. Performed By: #### L 300.3900, L300.4310, L100.0100, L500.2500, L501.4020 ####[facility] [address] [place], [address] Potassium [Moles/Vol] 4.0 mmol/L Normal 3.5-5.1 [facility] Comment on above: Order Comment: 'TROP ' Serial specimen #1, #2 or #3: 1 Performed By: #### L 300.3900, L300.4310, L100.0100, L500.2500, L501.4020 ####[facility] [address] [place], [address] Sodium [Moles/Vol] 130 mmol/L Low 136-145 [facility] Comment on above: Order Comment: 'TROP ' Serial specimen #1, #2 or #3: 1 Performed By: #### L 300.3900, L300.4310, L100.0100, L500.2500, L501.4020 ####[facility] [address] [place], [address] Urea nitrogen [Mass/Vol] 26 mg/dL High 7-18 [facility] Comment on above: Order Comment: 'TROP ' Serial specimen #1, #2 or #3: 1 Performed By: #### L 300.3900, L300.4310, L100.0100, L500.2500, L501.4020 ####[facility] [address] [place], [address] Bedside Glucoseon 01-08-2024 FINGERSTICK GLU 240 mg/dL High 74-106 [facility] Comment on above: Result Comment: ADAL GEMENT OF PATIENT CARE PER NURSING PROTOCOL Performed By: #### L 501.080 ####[facility] [address] [place], [address] FINGERSTICK GLU 340 mg/dL High 74-106 [facility] Comment on above: Result Comment: ADAL GEMENT OF PATIENT CARE PER NURSING PROTOCOL Performed By: #### L 501.080 ####[facility] [address] [place], [address] FINGERSTICK GLU > 500 Invalid Interpretation Code 74-106 [facility] Comment on above: Result Comment: Dr Prisca griffith FollowedMANAGEMENT OF PATIENT CARE PER NURSING PROTOCOL Performed By: #### L 501.080 ####[facility] [address] [place], [address] Brain W/WO Contraston 2023 Brain W/WO Contrast Normal [facility] CBC W/Diff, Automatedon 12-15 Absolute Lymph 0.82 X10 3/uL Low 0.83-4.51 [facility] Comment on above: Performed By: #### L 300.3900, L300.4310, L100.0100, L500.2500, L501.4020 ####[facility] [address] [place], [address] Absolute Neut 10.9 X10 3/uL High 2.0-7.7 [facility] Comment on above: Performed By: #### L 300.3900, L300.4310, L100.0100, L500.2500, L501.4020 ####[facility] [address] [place], [address] Basophils/100 WBC (Bld) 0.6 % Normal 0-1 [facility] Comment on above: Performed By: #### L 300.3900, L300.4310, L100.0100, L500.2500, L501.4020 ####[facility] [address] [place], [address] Eosinophils/100 WBC (Bld) 0.4 % Normal 0-5 [facility] Comment on above: Performed By: #### L 300.3900, L300.4310, L100.0100, L500.2500, L501.4020 ####[facility] [address] [place], [address] Erythrocyte distribution width (RBC) [Ratio] 12.2 % Normal 11.6-14.6 [facility] Comment on above: Performed By: #### L 300.3900, L300.4310, L100.0100, L500.2500, L501.4020 ####[facility] [address] [place], [address] Hematocrit (Bld) [Volume fraction] 40.1 % Normal 37-47 [facility] Comment on above: Performed By: #### L 300.3900, L300.4310, L100.0100, L500.2500, L501.4020 ####[facility] [address] [place], [address] Hemoglobin (Bld) [Mass/Vol] 12.7 g/dL Normal 12.0-15.0 [facility] Comment on above: Performed By: #### L 300.3900, L300.4310, L100.0100, L500.2500, L501.4020 ####[facility] [address] [place], [address] IG% 0.200 Normal 0.0-0.9 [facility] Comment on above: Result Comment: IG% - Immature Granulocytes (promyelocytes, myelocytes andmetamyelocytes) > 1% indicates that a LEFT SHIFT is Present. Performed By: #### L 300.3900, L300.4310, L100.0100, L500.2500, L501.4020 ####[facility] [address] [place], [address] Lymphocytes/100 WBC (Bld) 6.7 % Low 19-41 [facility] Comment on above: Performed By: #### L 300.3900, L300.4310, L100.0100, L500.2500, L501.4020 ####[facility] [address] [place], [address] MCH (RBC) [Entitic mass] 27.7 pg Normal 27.0-32.0 [facility] Comment on above: Performed By: #### L 300.3900, L300.4310, L100.0100, L500.2500, L501.4020 ####[facility] [address] [place], [address] MCHC (RBC) [Mass/Vol] 31.7 g/dL Low 32-36 [facility] Comment on above: Performed By: #### L 300.3900, L300.4310, L100.0100, L500.2500, L501.4020 ####[facility] [address] [place], [address] MCV (RBC) [Entitic vol] 87.6 fL Normal 81-99 [facility] Comment on above: Performed By: #### L 300.3900, L300.4310, L100.0100, L500.2500, L501.4020 ####[facility] [address] [place], [address] Monocytes/100 WBC (Bld) 3.7 % Normal 0-10 [facility] Comment on above: Performed By: #### L 300.3900, L300.4310, L100.0100, L500.2500, L501.4020 ####[facility] [address] [place], [address] Neutrophils/100 WBC (Bld) 88.4 % High 47-70 [facility] Comment on above: Performed By: #### L 300.3900, L300.4310, L100.0100, L500.2500, L501.4020 ####[facility] [address] [place], [address] Nucleated RBC (Bld) [#/Vol] 0 10*3/uL Normal 0-5 [facility] Comment on above: Performed By: #### L 300.3900, L300.4310, L100.0100, L500.2500, L501.4020 ####[facility] [address] [place], [address] Platelet mean volume (Bld) [Entitic vol] 11.1 fL Normal 6.2-12.0 [facility] Comment on above: Performed By: #### L 300.3900, L300.4310, L100.0100, L500.2500, L501.4020 ####[facility] [address] [place], [address] Platelets (Bld) [#/Vol] 331 10*3/uL Normal 150-450 [facility] Comment on above: Performed By: #### L 300.3900, L300.4310, L100.0100, L500.2500, L501.4020 ####[facility] [address] [place], [address] RBC (Bld) [#/Vol] 4.58 10*6/uL Normal 4.2-5.4 [facility] Comment on above: Performed By: #### L 300.3900, L300.4310, L100.0100, L500.2500, L501.4020 ####[facility] [address] [place], [address] RDW SD 39.3 fl Normal 35.1-43.9 [facility] Comment on above: Performed By: #### L 300.3900, L300.4310, L100.0100, L500.2500, L501.4020 ####[facility] [address] [place], [address] WBC (Bld) [#/Vol] 12.3 10*3/uL High 4.4-11.0 [facility] Comment on above: Performed By: #### L 300.3900, L300.4310, L100.0100, L500.2500, L501.4020 ####[facility] [address] [place], [address] Chest 1 Viewon 01-08-2024 Chest 1 View Normal [facility] Echo Completeon 01-08-2024 Echo Complete Normal [facility] Emergency Department Summary on 01-08-2024 Emergency Department Summary Normal [facility] H AND P Exam - Hospitaliston 01-08-2024 H&P Exam - Hospitalist Normal [facility] Hemoglobin A1con 01-08-2024 HbA1c (Bld) [Mass fraction] 10.6 % High 3.8-5.6 [facility] Comment on above: Result Comment: Norm al < 5.7 % Prediabetic 5.7 - 6.4 % Diabetic >or= 6.5 % Please note range changes. Performed By: #### L 501.9985, L501.9520, L506.0400 ####[facility] [address] [place], [address] L501.4020on 01-08-2024 TROPONIN-I HS 54 pg/mL Normal 3.0-54.0 [facility] Comment on above: Order Comment: 'TROP ' Serial specimen #1, #2 or #3: 1 Result Comment: Plea se Note: New Test Units and Gender Specific Reference Ranges. For more information see Policy Stat Procedure [place] High Sensitivity Troponin (TNIH) and attachments. Performed By: #### L 300.3900, L300.4310, L100.0100, L500.2500, L501.4020 ####[facility] [address] [place], [address] Lactic Acidon 01-08-2024 Lactate [Moles/Vol] 1.7 mmol/L Normal 0.4-1.9 [facility] Comment on above: Order Comment: PT IN ULTRASOUND, FLOOR WILL CALL WHEN BACK Performed By: #### L 503.6005 ####[facility] [address] [place], [address] Lactate [Moles/Vol] 2.1 mmol/L Invalid Interpretation Code 0.4-1.9 [facility] Comment on above: Order Comment: Y Result Comment: Crit ical Result(s) Called at: 09:10:50 01/08/2024 by: BALJINDER TO KARLOS GUADALUPE. Results read back by same. Performed By: #### L 500.3400, M200.1000, L503.6005, L503.5510 ####[facility] [address] [place], [address] Liver Profileon 01-08-2024 Albumin [Mass/Vol] 4.2 g/dL Normal 3.2-5.0 [facility] Comment on above: Performed By: #### L 500.3400, M200.1000, L503.6005, L503.5510 ####[facility] [address] [place], [address] ALK P 176 U/L High 45-117 [facility] Comment on above: Performed By: #### L 500.3400, M200.1000, L503.6005, L503.5510 ####[facility] [address] [place], [address] ALT [Catalytic activity/Vol] 19 U/L Normal 13-56 [facility] Comment on above: Performed By: #### L 500.3400, M200.1000, L503.6005, L503.5510 ####[facility] [address] [place], [address] AST [Catalytic activity/Vol] 17 U/L Normal 15-37 [facility] Comment on above: Performed By: #### L 500.3400, M200.1000, L503.6005, L503.5510 ####[facility] [address] [place], [address] Bilirubin [Mass/Vol] 0.60 mg/dL Normal 0.20-1.00 [facility] Comment on above: Result Comment: For patients on eltrombopag therapy, use of Dimension [place] TBIL is not recommended. Performed By: #### L 500.3400, M200.1000, L503.6005, L503.5510 ####[facility] [address] [place], [address] Bilirubin.direct [Mass/Vol] 0.21 mg/dL Normal 0.00-0.30 [facility] Comment on above: Performed By: #### L 500.3400, M200.1000, L503.6005, L503.5510 ####[facility] [address] [place], [address] Globulin (S) [Mass/Vol] 4.2 g/dL Normal 2.2-4.2 [facility] Comment on above: Performed By: #### L 500.3400, M200.1000, L503.6005, L503.5510 ####[facility] [address] [place], [address] T PROT 8.4 g/dL High 6.4-8.2 [facility] Comment on above: Performed By: #### L 500.3400, M200.1000, L503.6005, L503.5510 ####[facility] [address] [place], [address] M100.678on 01-08-2024 M100.678 SARS-CoV-2 (COVID 19 ) Negative INFLUENZA A Negative INFLUENZA B Negative RSV PCR Negative Normal [facility] Comment on above: Performed By: #### M 100.678 ####[facility] [address] [place], [address] MR/CON.PCM.NEon 01-08-2024 MR/CON.PCM.NE Normal [facility] Partial Thromboplast Timeon 01-08-2024 aPTT Coag (Bld) [Time] 34.3 s Normal 24.1-36.2 [facility] Comment on above: Performed By: #### L 300.3900, L300.4310, L100.0100, L500.2500, L501.4020 ####[facility] [address] [place], [address] Prothrombin Time w/INRon INR Coag (PPP) [Relative time] 1.2 {INR} Normal [facility] Comment on above: Performed By: #### L 300.3900, L300.4310, L100.0100, L500.2500, L501.4020 ####[facility] [address] [place], [address] PT Coag (PPP) [Time] 15.1 s High 11.7-14.9 [facility] Comment on above: Performed By: #### L 300.3900, L300.4310, L100.0100, L500.2500, L501.4020 ####[facility] [address] [place], [address] STROKE Brain/Head without Co nton 01-08-2024 STROKE Brain/Head without Cont Normal [facility] STROKE CTA Head AND Neck W/C onon 01-08-2024 STROKE CTA Head AND Neck W/Con Normal [facility] T4 Free Directon 01-08-2024 T4 FREE DIRECT 1.31 ng/dL Normal 0.76-1.46 [facility] Comment on above: Performed By: #### L 501.9985, L501.9520, L506.0400 ####[facility] [address] [place], [address] Thyroidon 01-08-2024 Thyroid Normal [facility] Thyroid Stim Hormone (TSH)on 01-08-2024 TSH 0.39 uIU/mL Normal 0.358-3.74 [facility] Comment on above: Performed By: #### L 501.9985, L501.9520, L506.0400 ####[facility] [address] [place], [address] Urinalysis, Completeon 01-07 RBC 0-5 SEEN Normal 0-5 [facility] Comment on above: Order Comment: COLLE CTOR TO SPECIFY Performed By: #### L 400.0001 ####[facility] [address] [place], [address] BACTERIA 0 SEEN Normal None Seen [facility] Comment on above: Order Comment: COLLE CTOR TO SPECIFY Performed By: #### L 400.0001 ####[facility] [address] [place], [address] EPI,SQUAMOUS 0 SEEN Normal 5-10 [facility] Comment on above: Order Comment: LUCIA CTOR TO SPECIFY Performed By: #### L 400.0001 ####[facility] [address] [place], [address] Mucus Ql (Urine sed) 0 SEEN Normal [facility] Comment on above: Order Comment: COLLE CTOR TO SPECIFY Performed By: #### L 400.0001 ####[facility] [address] [place], [address] WBC 0 SEEN Normal 0-5 [facility] Comment on above: Order Comment: COLLE CTOR TO SPECIFY Performed By: #### L 400.0001 ####[facility] [address] [facility] [address] Urine Drug Screen (VISTA)on 01-08-2024 AMPHETAMINES Negative Normal <1000 ng/mL [facility] Comment on above: Performed By: #### L 505.5000 ####[facility] [address] [place] [id number] BARBITIURATES Negative Normal < 200 ng/mL [facility] Comment on above: Performed By: #### L 505.5000 ####[facility] [address] [place], [address] BENZODIAZIPINE Negative Normal < 200 ng/mL [facility] Comment on above: Performed By: #### L 505.5000 ####[facility] [address] [place] [address] COCAINE Negative Normal < 300 ng/mL [facility] Comment on above: Performed By: #### L 505.5000 ####[facility] [address] [place], [address] ECSTACY Negative Normal < 500 ng/mL [facility] Comment on above: Performed By: #### L 505.5000 ####[facility] [address] [place] [id number] METHADONE Negative Normal < 300 ng/mL [facility] Comment on above: Performed By: #### L 505.5000 ####[facility] [address] [place], [address] OPIATES Negative Normal < 300 ng/mL [facility] Comment on above: Performed By: #### L 505.5000 ####[facility] [address] [place], [address] PCP Negative Normal < 25 ng/mL [facility] Comment on above: Performed By: #### L 505.5000 ####[facility] [address] [place], [address] THC Negative Normal < 50 ng/mL [facility] Comment on above: Performed By: #### L 505.5000 ####[facility] [address] [place], [address] VISTA UDS PH 6 Normal [facility] Comment on above: Performed By: #### L 505.5000 ####[facility] [address] [place], [address] Vital Signs Date Time Vital Sign Value Performing Clinician Facility 06-03-2024 13:44-0500 Body mass index (BMI) [Ratio] 30.65 kg/m2 Teressa Brennan Work Phone: [facility] 06-03-2024 13:44-0500 Body temperature 97.11 [degF] Teressa Brennan Work Phone: [facility] 06-03-2024 13:44-0500 Body weight 68.04 kg Teressa Brennan Work Phone: [facility] 06-03-2024 13:44-0500 Diastolic blood pressure 77 mm[Hg] Teressa Brennan Work Phone: [facility] 06-03-2024 13:44-0500 Heart rate 78 /min Teressa Brennan Work Phone: [facility] 06-03-2024 13:44-0500 SaO2% (BldA) [Mass fraction] 98 % Teressa Brennan Work Phone: [facility] 06-03-2024 13:44-0500 Systolic blood pressure 155 mm[Hg] Teressa Brennan Work Phone: [facility] 04-29-2024 10:11-0400 Body temperature 98.2 [degF] Treatment Wstr Work Phone: [facility] 04-29-2024 10:11-0400 Diastolic blood pressure 75 mm[Hg] Treatment Wstr Work Phone: [facility] 04-29-2024 10:11-0400 Heart rate 78 /min Treatment Wstr Work Phone: [facility] 04-29-2024 10:11-0400 Respiratory rate 16 /min Treatment Wstr Work Phone: [facility] 04-29-2024 10:11-0400 SaO2% (BldA) [Mass fraction] 98 % Treatment Wstr Work Phone: [facility] 04-29-2024 10:11-0400 Systolic blood pressure 144 mm[Hg] Treatment Wstr Work Phone: [facility] 04-23-2024 12:42-0400 Body temperature 98.2 [degF] Treatment Wstr Work Phone: [facility] 04-23-2024 12:42-0400 Diastolic blood pressure 64 mm[Hg] Treatment Wstr Work Phone: [facility] 04-23-2024 12:42-0400 Heart rate 85 /min Treatment Wstr Work Phone: [facility] 04-23-2024 12:42-0400 SaO2% (BldA) [Mass fraction] 98 % Treatment Wstr Work Phone: [facility] 04-23-2024 12:42-0400 Systolic blood pressure 126 mm[Hg] Treatment Wstr Work Phone: [facility] 04-21-2024 10:00-0400 Body temperature 98.1 [degF] Treatment Wstr Work Phone: [facility] 04-21-2024 10:00-0400 Diastolic blood pressure 63 mm[Hg] Treatment Wstr Work Phone: [facility] 04-21-2024 10:00-0400 Heart rate 70 /min Treatment Wstr Work Phone: [facility] 04-21-2024 10:00-0400 Respiratory rate 14 /min Treatment Wstr Work Phone: [facility] 04-21-2024 10:00-0400 SaO2% (BldA) [Mass fraction] 98 % Treatment Wstr Work Phone: [facility] 04-21-2024 10:00-0400 Systolic blood pressure 127 mm[Hg] Treatment Wstr Work Phone: [facility] 04-17-2024 11:11-0400 Diastolic blood pressure 72 mm[Hg] Treatment Wstr Work Phone: [facility] 04-17-2024 11:11-0400 Heart rate 90 /min Treatment Wstr Work Phone: [facility] 04-17-2024 11:11-0400 Systolic blood pressure 147 mm[Hg] Treatment Wstr Work Phone: [facility] 04-17-2024 10:00-0400 Body temperature 97.39 [degF] Treatment Wstr Work Phone: [facility] 04-08-2024 14:11-0400 Body height 149 cm Adan Mayi DO Work Phone: [facility] 04-08-2024 14:11-0400 Body mass index (BMI) [Ratio] 29.93 kg/m2 Adan Olverai DO Work Phone: [facility] 04-08-2024 14:11-0400 Body temperature 97.5 [degF] Adan Scott DO Work Phone: [facility] 04-08-2024 14:11-0400 Body weight 66.45 kg Adan Scott DO Work Phone: [facility] 04-08-2024 14:11-0400 Diastolic blood pressure 69 mm[Hg] Adan Scott DO Work Phone: [facility] 04-08-2024 14:11-0400 Heart rate 85 /min Adan Scott DO Work Phone: [facility] 04-08-2024 [id number] SaO2% (BldA) [Mass fraction] 99 % Adan Scott DO Work Phone: [facility] 04-08-2024 14:[id number] Systolic blood pressure 129 mm[Hg] Adan Olverai DO Work Phone: [facility] 02-05-2024 15:28-0400 Body height 154.9 cm Annie Kearney MD Work Phone: [facility] 02-05-2024 15:28-0400 Body temperature 98.8 [degF] Annie Kearney MD Work Phone: [facility] 02-05-2024 15:28-0400 Diastolic blood pressure 76 mm[Hg] Annie Kearney MD Work Phone: [facility] 02-05-2024 15:28-0400 Heart rate 68 /min Annie Kearney MD Work Phone: [facility] 02-05-2024 15:28-0400 Systolic blood pressure 161 mm[Hg] Annie Kearney MD Work Phone: [facility] 01-30-2024 11:57-0400 Body temperature 97.7 [degF] Natividad Ramirez MD Work Phone: [facility] 01-30-2024 11:57-0400 Diastolic blood pressure 65 mm[Hg] Natividad Ramirez MD Work Phone: [facility] 01-30-2024 11:57-0400 Heart rate 73 /min Natividad Ramirez MD Work Phone: [facility] 01-30-2024 11:57-0400 Respiratory rate 18 /min Natividad Ramirez MD Work Phone: [facility] 01-30-2024 11:57-0400 SaO2% (BldA) [Mass fraction] 98 % Natividad Ramirez MD Work Phone: [facility] 01-30-2024 11:57-0400 Systolic blood pressure 147 mm[Hg] Natividad Ramirez MD Work Phone: [facility] 01-27-2024 00:00-0400 Body mass index (BMI) [Ratio] 29.37 kg/m2 Natividad Ramirez MD Work Phone: [facility] 01-27-2024 00:00-0400 Body weight 70.5 kg Natividad Ramirez MD Work Phone: [facility] 01-11-2024 11:49-0400 Body height 154.9 cm Natividad Ramirez MD Work Phone: [facility] Encounters Encounter Date Encounter Type Care Provider Facility Start: 08-19-2024 End: 08-19-[address] [facility] Work [facility]: Start: 08-19-2024 End: 08-19-2024 ambulatory Julieta Fast Facility:[facility] Start: 06-20-2024 End: 07-06-2024 Evaluation and management of inpatient Julieta Fast Facility:[facility] Start: 06-17-2024 ambulatory Kasia Arnold Facility:[facility] Start: 06-17-2024 End: 06-20-2024 Evaluation and management of inpatient Kasia Arnold Facility:[facility] Start: 06-03-2024 End: 06-03-2024 Patient encounter procedure [...] Rm 15 [facility] Work Phone: Hematology/Oncology Start: 04-28-2024 End: 04-28-2024 Telephone encounter Samantha CORRAL Hematology/Oncology Comment on above: SOCIAL WORK SERVICES (1ST TIME TREATMENT) Start: 04-25-2024 End: 04-25-2024 ambulatory ADAN SCOTT Hematology/Oncology Comment on above: Iron deficiency anem ia secondary to inadequate dietary iron intake (Primary Dx); Iron malabsorption Start: 04-25-2024 End: 04-25-2024 Patient encounter procedure Treatment Rm 14 [facility] Work Phone: Hematology/Oncology Start: 04-23-2024 End: 04-23-2024 ambulatory ADAN SCOTT Hematology/Oncology Comment on above: Iron malabsorption ( Primary Dx); Iron deficiency anemia secondary to inadequate dietary iron intake Start: 04-23-2024 End: 04-23-2024 Patient encounter procedure Treatment Rm 15 [facility] Work Phone: Hematology/Oncology Start: 04-21-2024 End: 04-21-2024 ambulatory ADAN SCOTT Hematology/Oncology Comment on above: Iron malabsorption ( Primary Dx); Iron deficiency anemia secondary to inadequate dietary iron intake Start: 04-21-2024 End: 04-21-2024 Patient encounter procedure Treatment Rm 14 [facility] Work Phone: Hematology/Oncology Start: 04-17-2024 End: 04-17-2024 [...] Phone: Hematology/Oncology Start: 02-07-2024 ambulatory Julieta Fast Facility:[facility] Start: 02-05-2024 ambulatory ANNIE KEARNEY Facility:[facility] Start: 02-05-2024 End: 02-05-2024 Patient encounter procedure Annie Kearney MD Work Phone: Trauma Surgery [facility] Comment on above: SBO (small bowel obs truction) (Primary Dx) Start: 01-31-2024 ambulatory Julieta Fast Facility:[facility] Start: 01-11-2024 End: 01-30-2024 Evaluation and management of inpatient Natividad Ramirez MD Work Phone: [facility] Start: 01-08-2024 ambulatory Julieta Fast Facility:[facility] Start: 01-08-2024 ambulatory Bc Zeng Fac ility:[facility] Start: 01-08-2024 End: 01-11-2024 Evaluation and management of inpatient Bc Zeng Facility:[facility] Procedures Date Procedure Procedure Detail Performing Clinician [...] Jaime Chambers MD Work Phone: Start: 01-24-2024 Radiologic exam [...] #### M GIOVANNI, CHM7, HFP #### [facility] ([facility]) [address] [place] [address] Start: 01-22-2024 Bilirubin direct Titus Acevedo MD [...] Martin Kapadia MD Work Phone: Start: 01-20-2024 Radiologic exam [...] screen quantita tive vancomycin Rico J Brigitte [facility] Start: 01-18-2024 Glucose measurement, blood Martin Kapadia [...] Work Phone: Start: 01-17-2024 Glucose measurement, blood Maritn Kapadia MD Work Phone: Start: 01-17-2024 Glucose measurement, blood Martin Kapadia MD Work Phone: Start: 01-16-2024 Basic metabolic pane l calcium total Martin Kapadia MD Work Phone: Start: 01-16-2024 Drug screen quantita tive vancomycin Ricoardha Boyceuse [facility] Start: 01-16-2024 Glucose measurement, blood Martin Kapadia [...] metabolic pane l calcium total Sunitha M Upland DO Work Phone: Start: 01-13-2024 Drug screen quantita tive vancomycin Roddy P Counts [facility] Work Phone: Start: 01-13-2024 Glucose measurement, blood Sunitha M Upland DO Work Phone: Start: 01-13-2024 Glucose measurement, blood Sunitha M Upland DO Work Phone: Start: 01-13-2024 Glucose measurement, blood Sunitha M Upland DO Work Phone: Start: 01-13-2024 Glucose measurement, blood Sunitha M Upland DO Work Phone: Start: 01-13-2024 Basic metabolic pane l calcium total Sunitha M Upland DO Work Phone: Start: 01-12-2024 Glucose measurement, blood Sunitha M Upland DO Work Phone: Start: 01-12-2024 Glucose measurement, blood Sunitha M Upland DO Work Phone: Start: 01-12-2024 Glucose measurement, blood Sunitha M Upland DO Work Phone: Start: 01-12-2024 Glucose measurement, blood Sunitha M Upland DO Work Phone: Start: 01-12-2024 Assay of magnesium Ko Augustine MD Work Phone: Start: 01-12-2024 Hepatic function panel Alisha Armendariz MD, MPH Work Phone: Start: 01-12-2024 IP CONSULT TO SPEECH THERAPY Ron Hand MD Work Phone: Start: 01-12-2024 Glucose measurement, blood Sunitha M Upland DO Work Phone: Start: 01-11-2024 Glucose measurement, [...] Start: 04-08-2027 Diabetes Screening Diabetes Screenin g [facility] Start: 12-03-2024 End: 12-03-2024 ambulatory Memphissaira Carmona [facility] Comment on above: CBC/IRON STUDIES* 6 MO OV/LABS EARLY* Start: 09-03-2024 End: 09-03-2024 ambulatory 09/03/2024 11:30 AM EST Results Only Arjun Marcus [facility] [address] [place] [address] CBC/IRON STUDIES* [facility] Comment on above: CBC/IRON STUDIES* Start: 06-03-2024 End: 06-03-2024 [facility] Comment on above: labs ov Start: 04-29-2024 End: 04-29-2024 ambulatory 04/29/2024 10:30 AM EDT Visit (SP) Office Hematology/Oncology [address] [place] [address] 2ND Hematology/Oncology Comment on above: 2ND Start: 04-25-2024 End: 04-25-2024 ambulatory 04/25/2024 3:30 PM EDT Visit (SP) Office Hematology/Oncology [address] [place] [address] 2ND Hematology/Oncology Comment on above: 2ND Start: 04-23-2024 End: 04-23-2024 ambulatory 04/23/2024 1:00 PM EDT Visit (SP) Office Hematology/Oncology [address] [place] [address] 2ND Hematology/Oncology Comment on above: 2ND Start: 04-21-2024 End: 04-21-2024 ambulatory 04/21/2024 10:00 AM EDT Visit (SP) Office Hematology/Oncology [address] [place] [address] 2ND Hematology/Oncology Comment on above: 2ND Start: 04-17-2024 End: 04-17-2024 ambulatory 04/17/2024 11:00 AM EDT Visit (SP) Office Hematology/Oncology [address] [place] [address] 2nd Hematology/Oncology Comment on above: 2nd Start: 04-08-2024 End: 07-08-2024 Ferritin [Mass/volume] in Serum or Plasma [facility] Comment on above: Expected: 04/08/2024 , Expires: 07/08/2024 Start: 04-08-2024 End: 07-08-2024 Iron and Iron binding capacity panel - Serum or Plasma [facility] Work Phone: Comment on above: Expected: 04/08/2024 , Expires: 07/08/2024 Start: 03-16-2024 Covid-19 Vaccine () Covid-[address] Vacc[address] () [facility] Start: 03-16-2024 Influenza vaccination [facility] Start: 03-13-2024 Tetanus vaccination [facility] Start: 03-13-2024 Urine microalbumin profile DTaP,Tdap,Td Vaccine (2 - Td or Tdap) [facility] Start: 02-05-2024 End: 02-05-2024 ambulatory Trauma Surgery [facility] Start: 11-29-2023 Screening for malign ant neoplasm of breast [facility] Start: 07-16-2023 Advance Directive Discussion Advance Directive Discussion [facility] Start: 03-16-2023 COVID-19 VACCINE ( season) COVID-19 VACCINE () [facility] Start: 03-16-2023 [facility] Start: 2022 RSV Vaccine (1 - 1-d ose 75+ series) RSV Vaccine (1 - 1-dose 75+ series) [facility] Start: 10-16-2015 Pneumococcal Vaccine : 65+ (2 of 2 - PPSV23 or PCV20) Pneumococcal Vaccine: 65+ (2 of 2 - PPSV23 or PCV20) [facility] Start: 12-10-2014 Pneumococcal vaccination [facility] Start: 08-28-2014 Shingrix Vaccine (2 of 3) Shingrix Vaccine (2 of 3) [facility] Start: 08-28-2014 Zoster vaccine hzv l shaq for subcutaneous use ZOSTER (SHINGLES) VACCINE (2 of 3) [facility] Start: 08-28-2014 [facility] Start: 2012 Screening for osteoporosis Bone Density Screening [facility] Start: 1992 Screening for malign ant neoplasm of colon [facility] Start: 1968 Screening for malign ant neoplasm of cervix [facility] Start: 1965 Anxiety Screening Anxiety Screening [facility] Start: 1965 Depression Screening Depression Scre ening [facility] Start: 1965 Hepatitis C screening Hepatitis C Sc reening [facility] Start: 1947 Hepatitis C screening [facility] Start: 1947 Screening for osteoporosis [facility] SURG PATH REQUEST [facility] Immunizations Immunization Date Immunization Notes Care Provider Fa cility 03-23-2022 influenza virus vaccine, unspecified formulation Annie Kearney MD Work Phone: [facility] 07-03-2014 zoster vaccine, unspecified formulation Annie Kearney MD Work Phone: [facility] Payers Date Payer Category Payer Self-pay 2019 Unknown [id number] 2019 Unknown [id number] 2012 Medicare [id number] 2012 Medicare [id number] 1945 Unknown [id number] 1945 Unknown [id number] Unknown [id number] Unknown [id number] Unknown [id number] [id number] Unknown [id number] [id number] Unknown [id number] [id number] Unknown [id number] [id number] Unknown [id number] [id number] Unknown [id number] [id number] Unknown [id number] Unknown [id number] 2..[id number] Unknown [id number] [id number] Unknown [id number] [id number] Unknown [id number] [id number] Unknown PAOLA Burdick *DO NOT USE* [id number] Social History Date Type Detail Facility Tobacco smoking stat us MIIS Tobacco smoking consumption unknown [facility] Start: 1945 Sex assigned at [facility] Start: 02-05-2024 End: 06-20-2024 Tobacco smoking status MIIS Never smoked tobacco [facility] Start: 02-05-2024 End: 04-08-2024 Tobacco use and exposure Smokeless tobacco non-user [facility] Start: 02-05-2024 Alcoholic beverage intake Ex-drinker (finding) [facility] Start: 02-05-2024 End: 06-03-2024 History of Social function [facility] Start: 02-05-2024 End: 06-03-2024 Tobacco use panel [facility] Start: 04-08-2024 End: 06-03-2024 Alcoholic beverage intake Lifetime non-drinker (finding) [facility] National Score (1-100), lower number is lower risk 64 [facility] Start: 1945 Sex Assigned At Female [facility] Clinical Notes 01-11-2024 to 07-03-2024 Teressa Brnenan - 06/03/2024 1:30 PM ESTTelephone Encounter - Samantha Mcdonald LISW - 04/28/2024 11:20 AM EDTTelephone Encounter - Samantha Mcdonald LISW - 04/28/2024 11:20 AM EDTAttachments Note Date & Type Note Facility 07-03-2024 Note [facility] 06-20-2024 Note [facility] 06-20-2024 Note [facility] 06-03-2024 History of Present illness Narrative [...] a month ago. recalls getting it at [facility]. Was living in [place]. Moved back to [place] early summer. Was admitted to [facility] for meningitis 12/2023. Transferred to [facility]. Course [...] in 6 months with labs Teressa Brennan APRN.INSTRUCTOR WARPER I spent a total of 30 minutes on the date of the service which included preparing to see the patient, [id number] patient care, completing clinical documentation, and counseling [...] of this patient. documented in this encounter [facility] 06-03-2024 Note HNO ID: [id number] Author: TERESSA BRENNAN, ? Service: ? Author [...] a month ago. recalls getting it at [facility]. Was living in [place]. Moved back to [place] early summer. Was admitted to [facility] for meningitis 12/2023. Transferred to [facility]. Course [...] in 6 months with labs Teressa Brennan APRN.INSTRUCTOR WARPER I spent a total of 30 minutes on the date of the service which included preparing to see the patient, [id number] patient care, completing clinical documentation, and counseling and educating the patient/family/caregiver. Portions of this note including HPI, ROS, impression/plan may have been copied forward as to provide important historical information essential in contributing to medical decision making. Documentation has been reviewed and edited as necessary to support clinical decision making for today's visit and to reflect my own independ (more content not included)... [facility] 04-28-2024 Telephone encounter Note SOCIAL WORK FOLLOW UP NOTE: CANCER CENTER Pt noted on [facility] 1st time treatment report. Pt has a non-oncology regimen. No social work follow up indicated. SHAYNA Carrillo-S [facility] 04-28-2024 Miscellaneous Notes SOCIAL WORK FOLLOW UP NOTE: CANCER CENTER Pt noted on [facility] 1st time treatment report. Pt has a non-oncology regimen. No social work follow up indicated. SHAYNA Carrillo-S documented in this encounter [facility] 04-15-2024 Telephone encounter Note I reviewed the patient on the 1st-time treatment report. The patient does not have a cancer diagnosis or a chemo/radiation regimen. No further Financial Navigator intervention is needed at this time. [facility] 04-15-2024 Miscellaneous Notes I reviewed the patient on the 1st-time treatment report. The patient does not have a cancer diagnosis or a chemo/radiation regimen. No further Financial Navigator intervention is needed at this time. documented in this encounter [facility] 04-09-2024 Telephone encounter Note Spouse returned call. Scheduled first 2 infusions. Spouse states will have to schedule more appointments as they go. Notes added to appointment notes for future appts. [facility] Work Phone: 04-09-2024 Miscellaneous Notes Spouse returned [...] Adan Scott DO documented in this encounter [facility] 04-09-2024 Telephone encounter Note 1st attempt lvm for patient to return the call. Belen Nix [facility] 04-09-2024 Telephone encounter Note Patient's aware of all information. This note and lab results faxed to Dr. Orlando. PSS- please contact patient/ to schedule as directed below. Carleen Bales LPN [facility] 04-09-2024 Telephone encounter Note Can let her [...] to Dr. Orlando's office. Adan Scott DO [facility] 04-08-2024 Note HNO ID: [id number] Author: ADAN SCOTT DO Service: ? Author [...] a month ago. recalls getting it at [facility]. Was living in [place]. Moved back to [place] early summer. Was admitted to [facility] for meningitis 12/2023. Transferred to [facility]. Course [...] which included preparing to see the patient, [id number] patient care, completing clinical documentation, obtaining and/or reviewing separately obtained history, performing a medically appropriate examination, counseling and educating the patient/family/caregiver, ordering medications, tests, or procedures, communicating with other HCPs (not separately reported), and communicating results to the patient/family/caregiver. Adan Scott DO [facility] 04-08-2024 History of Present illness Narrative [...] a month ago. recalls getting it at [facility]. Was living in [place]. Moved back to [place] early summer. Was admitted to [facility] for meningitis 12/2023. Transferred to [facility]. Course [...] which included preparing to see the patient, [id number] patient care, completing clinical documentation, obtaining and/or reviewing separately obtained history, performing a medically appropriate examination, counseling and educating the patient/family/caregiver, ordering medications, tests, or procedures, communicating with other HCPs (not separately reported), and communicating results to the patient/family/caregiver. Adan Scott DO documented in this encounter [facility] 02-05-2024 History of Present illness Narrative Subjective: [...] Follow up: PRN documented in this encounter [facility] 01-30-2024 Hospital course Narrative Hospital Medicine Discharge [...] during her recent hospital stay at [facility]. As you may know, Ms. Kearney is a 78y/o F w/ h/o chronic cognitive impairment, DM2, hyperthyroidism, an dHTN who was transferred to [facility] on 01/11/24 from [place] for evaluation of encephalopathy and fevers concerning [...] patient's records can be obtained via [email or web address] at [email or web address] It has been my pleasure participating in [...] Center 02/05/2024 2:15 PM Annie Kearney MD [facility] Jacob Chester MD [address] [place] [address] [address] [place] [id number] Follow up Plesae make an appointment 2-3 weeks following initial surgery date [facility] [address] [facility] [id number] Medication List START taking these medications [...] MG TABS documented in this encounter [facility] 01-30-2024 History of Present illness Narrative Social Work Final Discharge Plan and Transportation Final Discharge Planning Discharge Disposition: Shelter Facility Services at Discharge: Physical Therapy, Occupational Therapy, Shelter Community Agency Name(s) For Handoff: [facility] Phone For Handoff: [phone] Fax For Handoff: [phone] Additional Community Agency Name(s): no Selected Continued Care - Admitted Since 01/11/2024 Destination Coordination complete. Service Provider Selected Services Address Phone Fax Patient Preferred [facility] Shelter [address] [facility] [address] [phone] -- Plan Plan: Discharge to senior living facility Patient/Family In Agreement With Plan: yes Transportation Transport Request Mode of Transfer: [facility] Name of Discharge Transport Company: [employer] Discharge Transport ETA: 1400 on 01/29 Patient medically stable for discharge per physician/medical team. confirmed with [facility] that they are able to accept the patient this date. Insurance pre-certification is not required and a hospital exemption has been completed. SW arranged transport as indicated above, ETA is 1400 on 01/29. The patient has no specialized equipment needs for transportation. AVS/GAURI completed from a SW standpoint. SW updated the bedside RN, CCM, facility and patient/textile designs sales representative of the discharge plan and transport time. Patient/Hydrology Technician remain in agreement with the discharge plan. Bedside RN to call report and fax AVS/GAURI. Ambulance form left at the catalyst unit operator desk with a request for a printed transfer report. Discharge Instruction for Bedside RN: 1. Confirm the Ambulatory Order is in the GAURI. 2. Print the GAURI and AVS. 3. Print the Discharge Summary for facilities (if available). 4. Fax GAURI, AVS and Discharge Summary (when applicable) to agency or facility. 5. Call the agency or facility for report. OPAL Escobar, MARILU Cloth Worker, Transplant 01/29/24 1537 Outlier Review Reviewing for: Outlier Meeting Medical Necessity: Yes Medical Necessity Summary: RICK Barriers: Standard Treatment/Therapy;Medical Complications Barrier(s) Comments: Sitter free for almost 24 hours, should be able to discharge to SNF in a day Intervention: No intervention needed Escalated to: None Required OPAL Escobar LSW Cloth Worker, Transplant Hospital Medicine Daily Progress Note SUBJECTIVE: [...] in a hospital today) Labs Reviewed in [facility]: Lab Results Component Value Date SODIUM 138 01/29/2024 POTASSIUM 3.8 01/29/2024 CREATSERUM 1.30 (H) 01/29/2024 BMI: 27.6 IMPRESSION/PLAN: Kerrie Kearney is a 78 y.o. female with a history of chronic cognitive impairment, hyperthyroidism, DM2, and HTN who presented on 01/11/2024 as a transfer from [place] for further evaluation of encephalopathy and fevers [...] status: Full Code Pt's , Jaime @ [phone], updated via phone 01/29/24 Dispo: Continue inpatient management. Eventually discharge to SNF (she will not need pre-cert) Isac Chambers MD Acute Occupational Therapy Treatment Prior Gross Functional Mobility: used device Current AM-PAC score(s): CURRENT AM-PAC Activity Raw Score: 16 Based on the above AM-PAC score(s), and OT clinical judgment, discharge destination recommendation is: Shelter Facility Barriers to discharge home: Patient needs [...] to directions, Difficulty dividing attention Memory: Decreased senior care memory, Decreased short term memory Problem Solving: [...] noted Mobility Assessment/Intervention: Supine to Sit Mobility [place] Level: Supine->Sit: stand-by assist Bed Features/Set-up: Supine->Sit: Head of bed elevated, Use of bed rail Skilled Rationale: Cues for increased safety, Technique of activity, Verbal cues, Sequencing, Positioning, Hand placement Skilled Intervention/Details: Supine->Sit: Cues for sequencing/safety/use of log-roll technique; Mildly increased time/effort for performance due to pain. Transfer Assessment/Intervention: Sit to Stand Transfer [place] Level: Sit->Stand: contact guard assist (x 1 trial from EOB.) Assistive Device: Sit->Stand: gait belt, 2 wheeled walker Skilled Rationale: Cues for increased safety, Technique of activity, Tactile cues, Verbal cues, Hand placement Skilled Intervention/Details: Sit->Stand: Cues for safety/hand placement on walker. Stand to Sit Transfer [place] Level: Stand->Sit: contact guard assist Assistive Device: Stand->Sit: gait belt, 2 wheeled walker Skilled Rationale: Cues for increased safety, Technique of activity, Tactile cues, Verbal cues, Hand placement Toilet Transfer [place] Level: Toilet: minimum assist (75% patient effort) [...] (low elevation surface). Functional Mobility: Functional Mobility [place] Level: Functional Mobility/Gait: (CGA-minimal assistance) Assistive Device: [...] represents the current Occupational Therapy Discharge Summary. [facility] Medicine Daily Progress Note SUBJECTIVE: Pt doing [...] presented on 01/11/2024 as a transfer from [place] for further evaluation of encephalopathy and fevers [...] status: Full Code Pt's , Jaime @ [phone], updated at bedside 01/27/24 Dispo: Continue inpatient [...] questions or concerns. Tena Sherman MD MPH [employer] product owner Division of Trauma, Critical Care, Burn Hospital [...] focal, conversationally confused, A&Ox1 Labs Reviewed in [facility]: Lab Results Component Value Date SODIUM 138 01/27/2024 POTASSIUM 3.9 01/27/2024 CREATSERUM 1.03 01/27/2024 BMI: 27.6 IMPRESSION/PLAN: Kerrie Kearney is a 78 y.o. female with a history of chronic cognitive impairment, hyperthyroidism, DM2, and HTN who presented on 01/11/2024 as a transfer from [place] for further evaluation of encephalopathy and fevers [...] status: Full Code Pt's , Jaime @ [phone], updated at bedside 01/27/24 Dispo: Continue inpatient management. Eventually discharge to SNF (she will not need pre-cert) Isac Chambers MD [facility] Medicine Daily Progress Note SUBJECTIVE: Pt seen [...] focal, conversationally confused, A&Ox1 Labs Reviewed in [facility]: Lab Results Component Value Date WBC 6.83 01/26/2024 HGB 9.3 (L) 01/26/2024 PLATELET 297 01/26/2024 Images/Report Reviewed XR ABDOMEN 1 VIEW Final Result FINDINGS/IMPRESSION: Persistent ileus BMI: 27.6 IMPRESSION/PLAN: Kerrie Kearney is a 78 y.o. female with a history of chronic cognitive impairment, hyperthyroidism, DM2, and HTN who presented on 01/11/2024 as a transfer from [place] for further evaluation of encephalopathy and fevers [...] status: Full Code Pt's , Jaime @ [phone], updated at bedside 01/26/24 Dispo: Continue inpatient [...] trends and plan of care goals. 5. Fruit Dryer to follow. Samantha Robin NDTR Pager#[phone] ___ Pt unavailable and information obtained via [...] 06:19 GI-Last Bowel Movement: 01/25/24 ELMER LujanR Pager:[phone] [facility] Medicine Daily Progress Note SUBJECTIVE: Pt reports [...] presented on 01/11/2024 as a transfer from [place] for further evaluation of encephalopathy and fevers [...] status: Full Code Pt's , Jaime @ [phone], on 01/24/24 w/o answer Dispo: Continue inpatient management. Eventually discharge to SNF (she will not need pre-cert) Isac Chambers MD Acute Physical Therapy Treatment Prior Gross Functional Mobility: used device Current AM-PAC score(s): CURRENT AM-PAC Mobility Raw Score: 16 Based on the above AM-PAC score(s) and PT clinical judgment, patient is a good candidate for discharge to Shelter Facility Barriers to discharge home: Patient needs [...] sway. Mobility Assessment/Intervention: Supine to Sit Mobility [place] Level: Supine->Sit: minimum assist (75% patient effort) Bed Features/Set-up: Supine->Sit: Head of bed elevated, Use of bed rail Skilled Rationale: Verbal cues, Hand placement, Sequencing, Technique of activity Skilled Intervention/Details: Supine->Sit: Educated for log roll with cues for sequencing Transfer Assessment/Intervention: Sit to Stand Transfer [place] Level: Sit->Stand: minimum assist (75% patient effort) Assistive Device: Sit->Stand: gait belt, 2 wheeled walker Skilled Rationale: Verbal cues, Sequencing, Hand placement, Facilitate anterior shift Skilled Intervention/Details: Sit->Stand: Educated for pushing from seat with BUE x1 from EOB, x3 from recliner. Stand to Sit Transfer [place] Level: Stand->Sit: minimum assist (75% patient effort) Assistive Device: Stand->Sit: gait belt, armed chair Skilled Rationale: Verbal cues, Hand placement, Controlled descent for sitting Skilled Intervention/Details: Stand->Sit: Cues for reaching ack for seat with fair compliance this date. Bed-Chair Transfer [place] Level: Bed<->Chair: minimum assist (75% patient effort) Assistive Device: Bed<->Chair: gait belt, 2 wheeled walker Skilled Rationale: Verbal cues, Sequencing Gait/Functional Mobility Assessment/Intervention: Gait Assessment [place] Level: Gait: minimum assist (75% patient effort) [...] improve stability and independence. Stairs Assessment/Intervention: [facility]RENT [facility] Basic Mobility Inpatient Short Form Turning over [...] with a railin - Total Assistance [facility]RENT [facility] Mobility Raw Score: 16 [facility]RENT [facility] Mobility Functional Limitation: 54.16% Impaired in Basic [...] Camacho MD Acute Care Surgery Pager #: [phone] 01/25/24 Associated attestation - Jacob Chester MD [...] is a good candidate for discharge to Shelter Facility Barriers to discharge home: Patient needs [...] Assessment/Intervention: Transfer Assessment/Intervention: Sit to Stand Transfer [place] Level: Sit->Stand: moderate assist (50% patient effort) Assistive Device: Sit->Stand: gait belt, 2 wheeled walker Skilled Rationale: Verbal cues, Hand placement, Sequencing, Full extension to upright positioning/posture, Facilitate anterior shift Skilled Intervention/Details: Sit->Stand: x7 from recliner with frequent cues for hand placement and sequencing. patient requires cues for keeping feet back during transfers to facilitate improved BLE engagement. Stand to Sit Transfer [place] Level: Stand->Sit: minimum assist (75% patient effort) Assistive Device: Stand->Sit: gait belt, armed chair Skilled Rationale: Verbal cues, Hand placement, Controlled descent for sitting Skilled Intervention/Details: Stand->Sit: max cues for reaching back with poor compliance throughout. Educated for backing up to seat to improve safety and improve controlled descent. Gait/Functional Mobility Assessment/Intervention: Stairs Assessment/Intervention: CURRENT [facility] Basic Mobility Inpatient Short Form Turning over [...] with a railin - Total Assistance [facility]RENT [facility] Mobility Raw Score: 12 [facility]RENT [facility] Mobility Functional Limitation: 68.66% Impaired in Basic [...] represents the current Physical Therapy Discharge Summary. [facility] Medicine Daily Progress Note SUBJECTIVE: Pt reports [...] sounds, no HSM, surgical laparotomy scar w/ paual noted w/o surrounding erythema, drain in place [...] presented on 01/11/2024 as a transfer from [place] for further evaluation of encephalopathy and fevers [...] status: Full Code Pt's , Jaime @ [phone], on 01/24/24 w/o answer Dispo: Continue inpatient management. Eventually discharge to SNF (she will not need pre-cert) Isac Chambers MD Acute Occupational Therapy Treatment Prior Gross Functional Mobility: used device Current AM-PAC score(s): CURRENT AM-PAC Activity Raw Score: 14 Based on the above AM-PAC score(s), and OT clinical judgment, discharge destination recommendation is: Shelter Facility Barriers to discharge home: Patient needs [...] redirect Memory: Decreased short term memory, Decreased terminal clerk memory, Decreased recall of recent events, Decreased [...] Edema: Mobility Assessment/Intervention: Supine to Sit Mobility [place] Level: Supine->Sit: moderate assist (50% patient effort) Bed Features/Set-up: Supine->Sit: Head of bed elevated, Use of bed rail Skilled Rationale: Positioning, Hand placement, Verbal cues, Technique of activity, Full extension to upright positioning/posture Skilled Intervention/Details: Supine->Sit: Cues for logroll, assist w/ trunk to upright Sit to Supine Mobility [place] Level: Sit->Supine: not tested Transfer Assessment/Intervention: Sit to Stand Transfer [place] Level: Sit->Stand: moderate assist (50% patient effort) Assistive Device: Sit->Stand: gait belt, 2 wheeled walker Skilled Rationale: Positioning, Hand placement, Verbal cues, Full extension to upright positioning/posture Skilled Intervention/Details: Sit->Stand: x1 from EOB, x1 from recliner - cueing each time for hand placement and anterior weightshifting Stand to Sit Transfer [place] Level: Stand->Sit: minimum assist (75% patient effort) Assistive Device: Stand->Sit: gait belt, 2 wheeled walker, armed chair Skilled Rationale: Positioning, Hand placement, Verbal cues, Tactile cues, Controlled descent for sitting, Technique of activity, Cues for increased safety Skilled Intervention/Details: Stand->Sit: x2 to recliner, cueing for proximity, hand placement, and controlled descent Bed-Chair Transfer [place] Level: Bed<->Chair: minimum assist (75% patient effort) [...] positioning Functional Mobility: Outcome Score(s): \ [facility]RENT [facility] Daily Activity Inpatient Short Form Putting on/Taking Off Lower Body Clothin - Total Assistance Bathin - A Lot of Assistance Toiletin - Total Assistance Putting on/Taking Off Upper Body Clothin - A Little Assistance Groomin - A Little Assistance Eatin - No Assistance [facility]RENT [facility] Activity Raw Score: 14 [facility]RENT [facility] Activity Functional Limitation/Modifier: 59.67% Currently Impaired in [...] Camacho MD Acute Care Surgery Pager #: [phone] 01/24/24 Associated attestation - Jacob Chester MD [...] Critical Care and Burn Department of Surgery [facility] Medicine Daily Progress Note Physician: Martin Kapadia III, MD, Attending Physician, 6 service Today's Date: 01/23/2024 Patient: Kerrie Kearney, : 1945, Admitted: 01/11/2024, Length of stay: 12 days IMPRESSION/PLAN: Kerrie Kearney is a 78 y.o. female with a history of chronic cognitive impairment, hyperthyroidism, DMt2, and HTN who presented on 01/11/2024 as a transfer from [place] for further evaluation of encephalopathy and fevers [...] OT clinical judgment, discharge destination recommendation is: Shelter Facility *Pt may decline SNF placement. If [...] noted Mobility Assessment/Intervention: Supine to Sit Mobility [place] Level: Supine->Sit: moderate assist (50% patient effort) [...] pain. Transfer Assessment/Intervention: Sit to Stand Transfer [place] Level: Sit->Stand: moderate assist (50% patient effort) [...] due to pain. Stand to Sit Transfer [place] Level: Stand->Sit: minimum assist (75% patient effort) Assistive Device: Stand->Sit: gait belt, 2 wheeled walker Skilled Rationale: Cues for increased safety, Initiation and execution of task, Technique of activity, Controlled descent for sitting, Ischial assist, Arm in arm, Tactile cues, Verbal cues, Hand placement Bed-Chair Transfer [place] Level: Bed<->Chair: minimum assist (75% patient effort) [...] versus kyphotic/flexed posture. Functional Mobility: Functional Mobility [place] Level: Functional Mobility/Gait: minimum assist (75% patient [...] required for walker management. Outcome Score(s): [facility]RENT [facility] Daily Activity Inpatient Short Form Putting on/Taking Off Lower Body Clothin - Total Assistance Bathin - A Lot of Assistance Toiletin - Total Assistance Putting on/Taking Off Upper Body Clothin - A Little Assistance Groomin - A Little Assistance Eatin - No Assistance [facility]RENT [facility] Activity Raw Score: 14 [facility] Activity Functional Limitation/Modifier: 59.67% Currently Impaired in [...] is a good candidate for discharge to Shelter Facility Barriers to discharge home: Patient needs [...] pain Mobility Assessment/Intervention: Supine to Sit Mobility [place] Level: Supine->Sit: moderate assist (50% patient effort) Physical Assist: Supine->Sit: 2 person assist Bed Features/Set-up: Supine->Sit: Head of bed elevated, Use of bed rail Skilled Intervention/Details: Supine->Sit: Logroll to L for abdominal with step by step sequencing for safety/ participation Transfer Assessment/Intervention: Sit to Stand Transfer [place] Level: Sit->Stand: moderate assist (50% patient effort) Physical Assist: Sit->Stand: 1 person + 1 person to manage equipment Assistive Device: Sit->Stand: gait belt, 2 wheeled walker Skilled Intervention/Details: Sit->Stand: EOB x1, recliner x2. Cues for hand, initiation, and assisted anterior wt shift with decreased upright Stand to Sit Transfer [place] Level: Stand->Sit: moderate assist (50% patient effort) Physical Assist: Stand->Sit: 1 person + 1 person to manage equipment Assistive Device: Stand->Sit: gait belt, 2 wheeled walker Skilled Rationale: Hand placement, Maintain precautions, Cues for increased safety Bed-Chair Transfer [place] Level: Bed<->Chair: minimum assist (75% patient effort) Physical Assist: Bed<->Chair: 1 person + 1 person to manage equipment Assistive Device: Bed<->Chair: gait belt, 2 wheeled walker Skilled Rationale: Cues for increased safety Skilled Intervention/Details: Bed<->Chair: EOB to chair R with steps fwd and chair brought to her Gait/Functional Mobility Assessment/Intervention: Gait Assessment [place] Level: Gait: (min to mod assist) Physical [...] 2/2 pain Stairs Assessment/Intervention: Outcome Score(s): [facility]RENT [facility] Basic Mobility Inpatient Short Form Turning over [...] with a railin - Total Assistance [facility]RENT [facility] Mobility Raw Score: 11 [facility]RENT [facility] Mobility Functional Limitation: 72.57% Impaired in Basic [...] chair Alarms on at end of session: (RDA present for care setup following tx) Needs [...] Whaley MD PGY-3 Department of Surgery [phone] [facility] Medicine Daily Progress Note Physician: Martin Kapadia III, MD, Attending Physician, GM6 service Today's Date: 01/22/2024 Patient: Kerrie Kearney, : 1945, Admitted: 01/11/2024, Length of stay: 11 days IMPRESSION/PLAN: Kerrie Kearney is a 78 y.o. female with a history of chronic cognitive impairment, hyperthyroidism, DMt2, and HTN who presented on 01/11/2024 as a transfer from [place] for further evaluation of encephalopathy and fevers [...] needed Escalated to: None Required OPAL Escobar, MOLDING MACHINE OPERATOR HELPER Cloth Worker, Transplant Hospital Medicine Daily Progress Note Physician: Martin Kapadia III, MD, Attending Physician, GM6 service Today's Date: 01/21/2024 Patient: Kerrie Kearney, : 1945, Admitted: 01/11/2024, Length of stay: 10 days IMPRESSION/PLAN: Kerrie Kearney is a 78 y.o. female with a history of chronic cognitive impairment, hyperthyroidism, DMt2, and HTN who presented on 01/11/2024 as a transfer from [place] for further evaluation of encephalopathy and fevers [...] appearing fluids. Planned to leave NG to [facility] but she ended up pulling out her [...] Discharge Date: 01/22/2024 Referred Level of Care: senior living facility Barriers: medical readiness and transportation Current Referrals and Status 1. [facility]...... accepted and reserved. KATIE contacted pt's spouse, Jaime. Spouse reported he toured [place] and confirmed [place] was choice. SW messaged SNF about pt completing antibiotics, but may still be a few days from discharge due to needing NG placed. AnyMARILU Acosta IRP Automatic Centrifugal Station Operator Please note that I am float aids social worker and am not the primary aids social worker for this service and/or patient. Please contact primary aids social worker during the week for any additional needs. Contact info for weekend CM and SW staff (8:00am - 4:30pm): Brain and Spine: CCM: [phone] / Cloth Worker: [phone] Munoz: [facility]: [phone] / Cloth Worker: [phone] Gregory: [facility] : [phone] / Cloth Worker: [phone] Nikolay/MICU/PCU Jose: [facility]: [phone] / Cloth Worker: [phone] [facility] Medicine Daily Progress Note Physician: Martin Kapadia III, MD, Attending Physician, [facility] service Today's Date: 01/20/2024 Patient: Kerrie Kearney, : 1945, Admitted: 01/11/2024, Length of stay: 9 days IMPRESSION/PLAN: Kerrie Kearney is a 78 y.o. female with a history of chronic cognitive impairment, hyperthyroidism, DMt2, and HTN who presented on 01/11/2024 as a transfer from [place] for further evaluation of encephalopathy and fevers [...] RICK -May fold in some Hydralazine to case picker the slack while Lisinopril is held RICK: [...] personally reviewed. Signed, Martin Kapadia III, MD [facility] Medicine Daily Progress Note Physician: Martin Kapadia III, MD, Attending Physician, 6 service Today's Date: 01/19/2024 Patient: Kerrie Kearney, : 1945, Admitted: 01/11/2024, Length of stay: 8 days IMPRESSION/PLAN: Kerrie Kearney is a 78 y.o. female with a history of chronic cognitive impairment, hyperthyroidism, DMt2, and HTN who presented on 01/11/2024 as a transfer from [place] for further evaluation of encephalopathy and fevers [...] RICK -May fold in some Hydralazine to case picker the slack while Lisinopril is held RICK: [...] IVPB 1,250 mg Intravenous Q48H Carleen Gould, [facility] DATA REVIEW: CBC: Chem: Na/K+/Phos/Mg/Ca: 133/4.0/--/--/9.4 (01/18 032) Bun/Creat/Cl/CO2/Glucose: 24/1.33/97/26/283 (01/18 321) Coags: All lab, imaging, and procedure results from the last 24 hours were personally reviewed. Signed, Martin Kapadia III, MD Placement Plan Expected Discharge Date: 01/21/2024 Referred Level of Care: skilled Barriers: medical readiness Current Referrals and Status 1. [place] (RESERVED) KATIE met with patient's at bedside for follow up re:SNF selection. reported [place] is [place] mile from their home and it would be convenient although he had not been in it. SW answered questions he had and encouraged him to tour. agreed to tour with his son tomorrow; son is arriving today from [place]. in agreement with reserving [place] and will update KATIE if they change their mind. requested SW reach out to [facility] to see if patient would have a private room. SW messaged [facility]. also states he is willing to transport patient to [place], since he did not want transportation to delay her discharge. SW agreed to follow up with the team to see if patient could go safely by car. SW agreed to update him accordingly. 1520 SW followed up with patient and patient's at bedside to let them know SW did not have any updates from [place] at this time but that SW would keep them posted tomorrow if there was any response. Lydia South TAXI TRUCK DRIVER,MOLDING MACHINE OPERATOR HELPER SW IRP, Please note that I am the weekend IRP and am not the primary aids social worker for this service and/or patient. Please contact primary aids social worker during the week for any additional needs. Contact info for weekend CM and SW staff (8:00am - 4:30pm): Brain and Spine: CCM: [phone] / Cloth Worker: [phone] Munoz: CCM: [phone] / Cloth Worker: [phone] Gregory: CCM : [phone] / Cloth Worker: [phone] Ross/MICU/PCU Jose: CCM: [phone] / Cloth Worker: [phone] Department of Pharmacy Pharmacokinetics Progress Note Patient: Kerrie Kearney Room[facility]Bed: [facility]/A Assessment and Plan: Based upon drug level [...] further questions. Name: Carleen Gould RPH Phone: [phone] Date/Time: 01/18/2024 9:08 PM NUTRITION RISK SCREENING [...] encourage PO intake with goal of 75%, medical technologist prn to follow __ Kerrie Kearney is a 78 y.o. female admitted with a past medical history of hypertension, diabetes mellitus and hyperthyroidism who presented to [facility] on 01/07 with a chief complaint of confusion. Past medical history reviewed in chart: Diet order: DIET REGULAR Nutrition Risk Factor Screening Appetite: poor Patient c/o: nausea GI: Last Bowel Movement: 01/18/24 Chewing / Swallowing Problems: no issues with chewing and/or swallowing Cultural or Catholic Restrictions/Preferences: None Food Allergies: None Skin Integrity [...] for tolerance to PO and weight changes. [facility] DTR Pager: [phone] Placement Plan Expected Discharge Date: 01/21/2024 Referred Level of Care: SNF Barriers: Medical stability, Facility choice Current Referrals and Status 1. [facility] - Accepted 2. [facility] - Accepted 3. [facility] - Accepted Went to pt's room [...] SW assistance in following up. JAMAR Mccain Cloth Worker *Please note that I am a float aids social worker and that I may not cover the same service everyday. Please call the main Social Work office at for up to date coverage. For Social Work assistance for the weekend, please contact for assistance as needed (8:00am - 4:30pm): BAS: [phone] or [phone] Tammy: [phone] or [phone] Gregory: [phone] or [phone] Ross/MICU/PCU Jose: [phone] or [phone] [facility] Medicine Daily Progress Note Physician: Martin Kapadia III, MD, Attending Physician, 6 service Today's Date: 01/18/2024 Patient: Kerrie Kearney, : 1945, Admitted: 01/11/2024, Length of stay: 7 days IMPRESSION/PLAN: Kerrie Kearney is a 78 y.o. female with a history of chronic cognitive impairment, hyperthyroidism, DMt2, and HTN who presented on 01/11/2024 as a transfer from [place] for further evaluation of encephalopathy and fevers [...] RICK -May fold in some Hydralazine to case picker the slack while Lisinopril is held RICK: [...] choice, precert, transport Current Referrals and Status [facility] - accepted [facility] - accepted [facility] - accepted [facility] [place] - under review [facility] - under review [facility] - under review sent clinical updates, updated facilities that patient will finish her IV abx prior to DC. Extended Aidin timer until tomorrow and asked reviewing facilities to provide determination. SHAYNA Marc Cloth Worker - [facility] Medicine Daily Progress Note Physician: Martin Kapadia III, MD, Attending Physician, GM6 service Today's Date: 01/17/2024 Patient: Kerrie Kearney, : 1945, Admitted: 01/11/2024, Length of stay: 6 days IMPRESSION/PLAN: Kerrie Kearney is a 78 y.o. female with a history of chronic cognitive impairment, hyperthyroidism, DMt2, and HTN who presented on 01/11/2024 as a transfer from [place] for further evaluation of encephalopathy and fevers [...] Pharmacokinetics Progress Note Patient: Kerrie Kearney Room/Bed: [facility] Assessment and Plan: Based upon drug level [...] further questions. Name: Lina Stubbs RPH Phone: [phone] Date/Time: 01/16/2024 10:07 PM Acute Care Speech Language Pathology Treatment Diet Recommendations: Recommended Method of Nutrition: PO Recommended Diet Grade: regular Recommended Liquid Consistency: liquid- thin (IDDSI 0) Recommended Medication Administration (as appropriate per MD): Per patient preference Type of Cues/Supervision: intermittent supervision Assistance: nurse/aide, family Best mode of Communication: verbal Discharge Recommendations: Based on the below outcome measures/assessment score(s) and IS CONSULTANT clinical judgment, discharge destination recommendation is: no skilled IS CONSULTANT services anticipated Acute IS CONSULTANT Outcomes Tracking Communicate basic wants and needs?: [...] O2 Device: room air (01/15 1055) Acute IS CONSULTANT Goals Plan of Care by MAYRA Prakash [...] fade cues to redirect attention. However, skilled IS CONSULTANT services no longer appear warranted as long as patient has assist to support attention to po intake. Outcome: Met Patient Education/Instruction Learners: Patient, Spouse Education provided: Dysphagia recommendations/impressions Teaching method: Verbal Education/Instruction, Demonstration Learner response: Applies knowledge Learning preferences: Auditory Learning considerations: No barriers/ready to learn Patient Instruction/Education comments: IS CONSULTANT signing off, positioning during po intake Plan for next session: sign off IS CONSULTANT Outcomes: FOIS7 Speech Language Pathologist: MAYRA Prakash Time In: 1415 Time Out: 1430 Total Visit Time: 15 minutes Total Treatment Time (skilled, billable minutes): 15 minutes Non-billable assistance during session: na Assisted by during session: na PPE used during patient interaction: gloves Patient location/status at end of session: chair Patient alarms at end of session: none altered Needs in reach. IS CONSULTANT Evaluation and Treatment Time Swallowing Dysfunction Treatment 68583: 15 Upon discontinuation of Acute Care Speech Therapy Services or patient discharge from the hospital this note represents the current Speech Therapy Discharge Summary [facility] Medicine Daily Progress Note Physician: Martin Kapadia III, MD, Attending Physician, 6 service Today's Date: 01/16/2024 Patient: Kerrie Kearney, : 1945, Admitted: 01/11/2024, Length of stay: 5 days IMPRESSION/PLAN: Kerrie Kearney is a 78 y.o. female with a history of chronic cognitive impairment, hyperthyroidism, DMt2, and HTN who presented on 01/11/2024 as a transfer from [place] for further evaluation of encephalopathy and fevers [...] IVPB 1,250 mg Intravenous Q24H Samantha Vallejo, [facility] 143.8 mL/hr at 01/15/242131 1,250 mg at [...] is a good candidate for discharge to Shelter Facility Barriers to discharge home: Patient needs [...] noted Mobility Assessment/Intervention: Supine to Sit Mobility [place] Level: Supine->Sit: stand-by assist Skilled Rationale: Verbal cues, Tactile cues, Hand placement, Full extension to upright positioning/posture, Technique of activity Skilled Intervention/Details: Supine->Sit: supine to sit to EOB with SBA and increased time Transfer Assessment/Intervention: Sit to Stand Transfer [place] Level: Sit->Stand: minimum assist (75% patient effort) Assistive Device: Sit->Stand: gait belt, 2 wheeled walker Skilled Rationale: Verbal cues, Tactile cues, Hand placement, Full extension to upright positioning/posture Skilled Intervention/Details: Sit->Stand: x1 trial from EOB, x1 trial from toilet. Verbal/tactile cues for instruction on hand placement and faciliation of anterior weight shift required to initiate transfer. Gait/Functional Mobility Assessment/Intervention: Gait Assessment [place] Level: Gait: (min to mod A) Assistive [...] promotion of upright posture. Outcome Score(s): [facility] Basic Mobility Inpatient Short Form Turning over [...] with a railin - Total Assistance [facility] Mobility Raw Score: 16 [facility] Mobility Functional Limitation: 54.16% Impaired in Basic [...] OT clinical judgment, discharge destination recommendation is: Shelter Facility *If pt and spouse decide to [...] noted Mobility Assessment/Intervention: Supine to Sit Mobility [place] Level: Supine->Sit: stand-by assist Bed Features/Set-up: Supine->Sit: Head of bed elevated, Use of bed rail Skilled Rationale: Cues for increased safety, Technique of activity, Verbal cues Skilled Intervention/Details: Supine->Sit: Cues for safety; Mildly increased time/effort to align hips. Transfer Assessment/Intervention: Sit to Stand Transfer [place] Level: Sit->Stand: minimum assist (75% patient effort) [...] versus kyphotic posture. Stand to Sit Transfer [place] Level: Stand->Sit: minimum assist (75% patient effort) Assistive Device: Stand->Sit: gait belt, 2 wheeled walker Skilled Rationale: Cues for increased safety, Technique of activity, Controlled descent for sitting, Tactile cues, Verbal cues, Hand placement Toilet Transfer [place] Level: Toilet: minimum assist (75% patient effort) [...] alignment upon descent. Functional Mobility: Functional Mobility [place] Level: Functional Mobility/Gait: minimum assist (75% patient [...] a decreased rate overall. Outcome Score(s): [facility] Daily Activity Inpatient Short Form Putting on/Taking Off Lower Body Clothin - A Lot of Assistance Bathin - A Lot of Assistance Toiletin - A Lot of Assistance Putting on/Taking Off Upper Body Clothin - A Little Assistance Groomin - A Little Assistance Eatin - No Assistance [facility] Activity Raw Score: 16 [facility] Activity Functional Limitation/Modifier: 53.32% Currently Impaired in [...] represents the current Occupational Therapy Discharge Summary. [facility] Medicine Progress Note Patient: Kerrie Kearney, : [...] - improved Delirium, on top of suspected senior care cognitive decline Suspected bacterial meningitis -Per OSH [...] - might need titration prior to discharge -adaptive physical educator consulted to help teach how to do [...] Corley DO Division of Hospital Medicine [facility] Acute Occupational Therapy Treatment Prior Gross Functional Mobility: used device Current AM-PAC score(s): CURRENT AM-PAC Activity Raw Score: 14 Based on the above AM-PAC score(s), and OT clinical judgment, discharge destination recommendation is: Shelter Facility Barriers to discharge home: Patient needs [...] to directions, Difficulty dividing attention Memory: Decreased terminal clerk memory, Decreased short term memory Problem Solving: [...] noted Mobility Assessment/Intervention: Supine to Sit Mobility [place] Level: Supine->Sit: moderate assist (50% patient effort) [...] task. Transfer Assessment/Intervention: Sit to Stand Transfer [place] Level: Sit->Stand: moderate assist (50% patient effort) [...] from bedside chair. Stand to Sit Transfer [place] Level: Stand->Sit: moderate assist (50% patient effort) Assistive Device: Stand->Sit: gait belt, 2 wheeled walker Skilled Rationale: Cues for increased safety, Technique of activity, Controlled descent for sitting, Ischial assist, Arm in arm, Tactile cues, Verbal cues, Hand placement, Sequencing, Positioning Bed-Chair Transfer [place] Level: Bed<->Chair: moderate assist (50% patient effort) [...] management despite therapist cueing/education. Outcome Score(s): [facility] Daily Activity Inpatient Short Form Putting on/Taking Off Lower Body Clothin - A Lot of Assistance Bathin - A Lot of Assistance Toiletin - A Lot of Assistance Putting on/Taking Off Upper Body Clothin - A Lot of Assistance Groomin - A Little Assistance Eatin - A Little Assistance [facility] Activity Raw Score: 14 [facility] Activity Functional Limitation/Modifier: 59.67% Currently Impaired in [...] examiner, tracks examiner. Normal conjunctivae and lids. 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 [...] neurology consultation resident. Andressa Carrington MD [facility] Department of Neurology Patient seen and staffed [...] further assistance is needed Leonidas Silva MD It Engineer Department of Neurology, Epilepsy Division [facility] Acute Care Speech Language Pathology Treatment Diet Recommendations: Recommended Method of Nutrition: PO Recommended Diet Grade: regular Recommended Liquid Consistency: liquid- thin (IDDSI 0) Recommended Medication Administration (as appropriate per MD): Per patient preference Swallow Strategies: (Small sips, bites and liquid washes) Type of Cues/Supervision: 1:1 supervision Assistance: nurse/aide, family Discharge Recommendations: Based on the below outcome measures/assessment score(s), FOIS, and IS CONSULTANT clinical judgment, discharge destination recommendation is: Deferred to PT/OT recomendations related to mobility Barriers to discharge home: Need for 1:1 assist to ensure safety with all PO intake Supporting factors for discharge setting: Impaired swallow function limiting nutritional status and safety with oral intake Acute IS CONSULTANT Outcomes Tracking Communicate basic wants and needs?: [...] O2 Device: room air (01/13 150) Acute IS CONSULTANT Goals Plan of Care by MAYRA Cramer [...] of session: none altered Needs in reach. IS CONSULTANT Evaluation and Treatment Time Swallowing Dysfunction Treatment 94204: 17 Upon discontinuation of Acute Care Speech [...] any questions, Name: Rin Morales RPH Phone: [phone] Date/Time: 01/14/2024 1:38 PM Discharge Planning Patient Assessment Admission Assessment Patient Assessment Completed: Initial Anticipated discharge disposition: Shelter Facility Reason for Admission: Kerrie Kearney is [...] and updated Care Team?: Yes No care team cdl driver to display Environment/Caregivers Is the patient from a facility or intermediate?: No Patient lives with: Spouse or Partner [...] Anticoagulation? : No [id number] [place] [address] [phone] 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 : No Employed?: Yes Coping/Stress Concerns about patient s coping and stress?: No Concerns about patient s caregiver s coping and stress?: Yes Referrals to address coping or stress concerns: Other Initial Discharge Planning Anticipated discharge disposition: Shelter Facility Transportation Available for Discharge: Ambulance, Private Vehicle, Family or Friend Anticipated DME: none Anticipated Services at Discharge: DME, Physical Therapy, Occupational Therapy, Outpatient follow up Patient Assessment Completed: Initial Expected Discharge Date: 01/14/2024 Care Management Plan Spouse present during this admission. Confirmed couple relocated back to [place] from [place]. Patient going to need SNF at discharge. PT/OT rec's skilled rehabilitation. Plan of IV antibiotic at discharge. Plan to re-visit discharge plan with the family. Will determine next level of care closer to discharge. Phylicia ORELLANA RN Clinical [employer] Leak Tester [phone] Outpatient Parenteral Antibiotic Therapy (OPAT): For patients who will be discharged on parenteral (IV) antibiotic therapy, please utilize the OPAT discharge orderset. For patients who are on oral antibiotic therapy, utilization of this orderset is not necessary. Diagnosis: MATHEMATICS ACADEMIC CHAIR Meningitis Antibiotic(s) with dose: The dosing of [...] Dr. Ana England Labs: Please have the [facility] [employer] or [facility] obtain the following labs and fax to [phone], attention (ID Attending): Dr. Ana England - [...] [facility] we will defer ID Care to the Infectious Disease Providers at the [facility] facility. Please instruct the facility that [...] with Infectious Diseases consulted for evaluation of MATHEMATICS ACADEMIC CHAIR infection. Acute encephalopathy, concern for bacterial meningitis [...] Start Meropenem 2g every 12 hours (ASP: [id number]) based on current renal function. Continue Vancomycin with goal trough 15-20. End of therapy of 01/20/2024 based on start date of 01/07/2024 at [facility]. ID Team 2 will sign-off at this [...] 01/14/2024 Microbiologic Data (personally reviewed): Blood (01/08/2024, [place]): No growth CSF (01/11/2024): No growth Glu [...] England MD Division of Infectious Diseases Pager: [phone] Hospital Medicine Progress Note Patient: Kerrie Kearney, [...] SSI, will uptitrate as needed -Endocrine and community health educator consulted. Will need insulin supplies prior to [...] Corley DO Division of Hospital Medicine [facility] Acute Physical Therapy Evaluation Prior Gross Functional Mobility: used device Current AM-PAC score(s): CURRENT AM-PAC Mobility Raw Score: 15 Based on the above AM-PAC score(s) and PT clinical judgment, patient is a good candidate for discharge to Shelter Facility Barriers to discharge home: Patient needs [...] Intact Mobility Assessment: Supine to Sit Mobility [place] Level: Supine->Sit: moderate assist (50% patient effort) [...] extend. Transfer Assessment: Sit to Stand Transfer [place] Level: Sit->Stand: minimum assist (75% patient effort) Assistive Device: Sit->Stand: gait belt, 2 wheeled walker Skilled Rationale: Positioning, Hand placement, Verbal cues, Full extension to upright positioning/posture, Finding/maintaining midline positioning Skilled Intervention/Details: Sit->Stand: x1 from EOB Stand to Sit Transfer [place] Level: Stand->Sit: minimum assist (75% patient effort) Assistive Device: Stand->Sit: gait belt, 2 wheeled walker Skilled Rationale: Positioning, Hand placement, Verbal cues Gait/Functional Mobility: Gait Assessment [place] Level: Gait: minimum assist (75% patient effort) [...] with a railin - Total Assistance [facility]RENT [facility] Mobility Raw Score: 15 CURRENT [facility] Mobility Functional Limitation: 57.70% Impaired in Basic [...] OT clinical judgment, discharge destination recommendation is: Shelter Facility Barriers to discharge home: Patient unable [...] to directions, Difficulty dividing attention Memory: Decreased terminal clerk memory, Decreased short term memory Problem Solving: [...] noted Mobility Assessment: Supine to Sit Mobility [place] Level: Supine->Sit: moderate assist (50% patient effort) [...] task. Transfer Assessment: Sit to Stand Transfer [place] Level: Sit->Stand: minimum assist (75% patient effort) [...] versus kyphotic posturing. Stand to Sit Transfer [place] Level: Stand->Sit: minimum assist (75% patient effort) Assistive Device: Stand->Sit: gait belt, 2 wheeled walker Skilled Rationale: Cues for increased safety, Initiation and execution of task, Technique of activity, Controlled descent for sitting, Arm in arm, Tactile cues, Verbal cues, Hand placement Functional Mobility: Functional Mobility [place] Level: Functional Mobility/Gait: minimum assist (75% patient [...] Pharmacokinetics Progress Note Patient: Kerrie [facility]ear[facility] Assessment and Plan: Based upon drug level [...] further questions. Name: Samantha Vallejo RPH Phone: [phone] Date/Time: 01/13/2024 10:08 PM [facility] Medicine Progress Note Patient: Kerrie Kearney, : [...] now, lispro SSI, will uptitrate as needed -adaptive physical educator consulted. Will need insulin supplies prior to [...] Corley DO Division of Hospital Medicine [facility] ..BEHAVIORAL EMERGENCY RESPONSE TEAM (JUANJO) PCT [...] behavior or emotional issues arise. UMER Riley [facility] Pager: [phone] [facility] Phone: [phone] Hospital Medicine Progress Note Patient: Kerrie Kearney, [...] now, lispro SSI, will uptitrate as needed -adaptive physical educator consult and will need insulin supplies prior [...] Corley DO Division of Hospital Medicine [facility] Images from the original note were not included. Inpatient Neurology Consultation Note Physician: Alisha Armendariz MD, MPH, PGY-3 Patient: Kerrie Kearney, 1945, [id number] ADMIT DATE: 01/11/2024 Date of face to [...] meningitis. Per HPI from Dr. Tolentino at [place]: Per , at baseline she uses a [...] MRI brain in a couple days. At [place], she was started on vanc, cefepime, ampicillin, and acyclovir on 01/07 (called OSH to confirm). rEEG showed generalized slowing with some triphasics. She was transferred to [facility] on 01/11/24 given inability to obtain an [...] to confrontation. 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 [...] in BUE SA EE EF WE WF Architectural Drafting Instructor HF KE KF DF PF Right 5 [...] to light touch throughout Coordination/Complex Motor: - Sowoqg-td-ruts intact bilaterally without dysmetria Data Review: Lytes: [...] on the below outcome measures/assessment score(s) and IS CONSULTANT clinical judgment, discharge destination recommendation is: Deferred to PT/OT recomendations related to mobility Acute IS CONSULTANT Outcomes Tracking Communicate basic wants and needs?: [...] diabetes mellitus and hyperthyroidism who presented to [facility] on 01/07 with a chief complaint of confusion. Of note this history is obtained from outside hospital documentation as the patient can not provide history. It seems that she was last known well at 11:30 p.m. the evening before presentation. noted she was having unusual behaviors, and difficulty ambulating. At [facility] she underwent a stroke alert and a [...] or meningitis and she was referred to [facility]. LP was attempted but not successfully [...] dramatic changes over last several days. Prior IS CONSULTANT history: none on file. Current Method of [...] Recommend meds crushed or whole in puree. IS CONSULTANT to follow for ongoing dysphagia management and [...] Stroke education: Role of rehabilitation discipline Acute IS CONSULTANT Goals Plan of Care by MAYRA Campbell [...] of session: none altered Needs in reach. IS CONSULTANT Evaluation and Treatment Time Swallowing Eval 07913: 13 Upon discontinuation of Acute Care Speech Therapy Services or patient discharge from the hospital this note represents the current Speech Therapy Discharge Summary Patient Information: Inpatient/Outpatient: Inpatient Weight: N/A Code Status: Full IV: N/A Only Outpatient Welder Shielded Metal Arc: N/A Phone Number: N/A Procedure Information: Exam: [...] Patient has transferred from an outside hospital ([facility]). I have contacted the facility and confirmed the following antimicrobial, antiepileptic, and anticoagulant medications were received by the patient prior to arrival at [facility]: Antimicrobials: Vancomycin 1 g on 01/09 @ 1852 Acyclovir 595 mg on 01/09 @ 2347 Ampicillin 2 g on 01/10@0515 Cefepime2 g on 01/09 @ 2323 Please feel free to contact me with any further questions. Name: Rin Morales RPH Phone #: [phone] Date/Time: 01/11/2024 1:39 PM Department of Pharmacy [...] any questions, Name: Rin Morales RPH Phone: [phone] Date/Time: 01/11/2024 1:02 PM H&P Procedure Update: [...] NPO. PVAT WOJCIECH: HUSSEIN Gill Contact # [phone] documented in this encounter [facility] 01-29-2024 Miscellaneous Notes Problem: Adult Inpatient Plan [...] sitting in recliner chair and watching tv. RDA/sitter provided 1:1 safety monitoring in room. Pt expressed hopefulness for discharge soon and denied needs at this time. No behavioral issues or distress noted. Call JUANJO as needed to use as a resource for pt. JUANJO is available daily between [phone]. Oneil ORELLANA, JESSICA- JUANJO Pager: [phone] JUANJO Problem: Adult Inpatient Plan of Care [...] this time. Migdalia Valenzuela RN- JUANJO Pager: [phone] JUANJO Phone: [phone] Notified regarding hyperglycemia 361. Had 53 carbs [...] to fluids without dextrose? Thanks JESSICA Willis [phone] Paged : [phone] Caio: Pt. blood sugar 361. Lispro is only ordered with meals not bedtime. She got 2 units of glargine. Do we want to change that order. Also her fluids are with dextrose. should we change to without? Thanks JESSICA Willis [phone] 1. Continue current diet order. 2. Will [...] trends and plan of care goals. 5. Fruit Dryer to follow. BEHAVIORAL EMERGENCY RESPONSE TEAM (JUANJO) RN NOTE 01/25/2024 Kerrie Kearney : 1945 JUANJO rounds: Pt was observed sleeping in recliner chair and was not disturbed at this time. RDA/sitter provided 1:1 safety monitoring in room and pt's was visiting at bedside. No behavioral issues or distress noted. Call JUANJO as needed to use as a resource for pt. JUANJO is available daily between [phone]. Oneil ORELLANA, RN- JUANJO Pager: [phone] JUANJO Problem: PT - General Goals Goal: [...] up in chair and visiting with . RDA/sitter was checking pt's blood glucose. No behavioral issues, distress, or needs noted for the JUANJO at this time. Call JUANJO as needed to use as a resource for pt. JUANJO is available daily between [phone]. Oneil ORELLANA, RN- JUANJO Pager: [phone] JUANJO Problem: OT - Transfers Goal: Transfers [...] Kerrie Kearney : 1945 JUANJO sitter round: RDA/sitter at bedside providing care I did not disturb at this time. JUANJO is available as a resource daily from [phone]. Contact if needs arise. Ashley Stallworth RN-[facility] Pager: [phone] JUANJO Phone: [phone] Problem: OT - ADLs Goal: Lower Body [...] prn IV Que Machado MD Kerrie Caio ([id number]) PRE OPERATIVE DIAGNOSIS Small bowel obstruction [K56.609] [...] Anesthesiologist: Vinod Duke MD; Michelle Woodruff MD VACUUM COOKER OPERATOR: Gilda Meyers APRN-VACUUM COOKER OPERATOR Occupational Therapy Aide: KYA Emmanuel SURGICAL STAFF Director Reactor Projects: Joce Mei RN Physician Accounting Analyst: Alisha Trimble, PAC Relief Director Reactor Projects: Amber Chacon RN Scrub Person: Annie Webb RN Resident Assisting: Josh Camacho MD; Mariela Carrillo MD COMPLICATIONS None ESTIMATED BLOOD LOSS 100 ml SPECIMENS ID Type Source Tests Collected by Time Destination 1 : small bowel Permanent TISSUE SURG PATH REQUEST Jacob Chester MD 01/22/2024 1502 Jacob Chester MD January 22, 2024 4:37 PM [facility] Trauma, Critical Care, and Burn Surgery [...] MD Anesthesiologist: Michelle Woodruff MD Surgical Staff: Director Reactor Projects: Joce Mei RN Physician Accounting Analyst: Alisha Trimble PAC Relief Director Reactor Projects: Amber Chacon RN Scrub Person: Annie Webb [...] beginning of the procedure with anesthesia, surgical elastic knitter hand frame, operating room nurse, and members of the [...] on examination. Will keep NG to LIWS. Sampson mitts ordered as patient pulled out NG tube earlier today. Will obtain CT abdomen/pelvis to evaluate for SBO now that NG is in place. Update, 4:38 AM - discussed CT with radiology, concerning for closed loop SBO. Will consult gen surg. Checking CBC, chem, LFTs, lactate, INR, and T/C. Continue NPO with NG to LIWS. Titus Acevedo MD [facility] Medicine RN sent page to MD Martin [...] for pt. JUANJO is available daily between [phone]. Oneil ORELLANA, RN- JUANJO Pager: [phone] JUANJO Problem: Adult Inpatient Plan of Care [...] JUANJO availability explained to sitter. Migdalia Valenzuela RN-[facility] Pager: [phone] JUANJO Phone: [phone] Problem: OT - ADLs Goal: Lower Body [...] this time. Migdalia Valenzuela RN- JUANJO Pager: [phone] JUANJO Phone: [phone] Problem: OT - ADLs Goal: Bathing - [...] oropharyngeal swallow function to most appropriately guide IS CONSULTANT plan of care Outcome: Progressing Goal: FEES - Patient will participate in Fiberoptic Endoscopic Evaluation of Swallowing (FEES) study to objectively assess pharyngeal swallow function to most appropriately guide IS CONSULTANT plan of care Outcome: Progressing Problem: IS CONSULTANT - Cognition Goal: Ongoing Assessment - Patient will participate in ongoing dynamic assessment of motor speech, expressive/receptive language, and cognitive-linguistic skills across 1 session to better assess deficits and most appropriately guide IS CONSULTANT plan of care Outcome: Progressing Problem: IS CONSULTANT - Language Goal: Communicate Wants/Needs - Patient will independently communicate basic wants/needs via any communication modality on at least 3 opportunities to improve functional communication and ability to direct care Outcome: Progressing Problem: IS CONSULTANT - AAC Goal: Utilization - Patient will use augmentative and alternative communication/speech generating device to communicate wants/needs/ideas on at least 5 occurrences to demonstrate improved independence communicating Outcome: Progressing Problem: IS CONSULTANT - Disorders of Consciousness Goal: Emergence - [...] Team notified. documented in this encounter [facility] 01-26-2024 Consult note Formatting of th is [...] participate in the care of this patient. Opal Whaley MD PGY-3 Department of Surgery [...] Resources: Link to diabetes education book in Russian: DiabetesEducation.pdf Link to diabetes education book in Mongolian: DiabetesEducation_SP.pdf Diabetes videos: https://www.healthwise.net/osumych art/Content/StdDocument.aspx?DOCHW DY=[email or web address] Link to order the diabetes education books (you would login and select your location, select the disease, diabetes and then you will see the option to order the book): [email or web address].edu/clinical/pt educordering/Identity/Account/Logi n?ReturnUrl=/clinical/pteducorderi ng DM History: Type of [...] DM self-management education. Thank you, Agustin Pinzon BUILDING EQUIPMENT INSPECTOR-MATHEMATICS ACADEMIC CHAIR Engineering Design Manager- Endocrinology, Diabetes & Metabolism Associated Order(s): IP CONSULT TO ENDOCRINOLOGY - DIABETES Images from the original note were not included. [facility] Inpatient Diabetes Consults - Initial Consult Note- [...] qachs 2. Discharge Plan: Anticipated discharge disposition: Shelter Facility Tentative Discharge Plan: If patient is [...] consult does not need placed. For provider continuity editor, please use QGENDA : TEAM 2 Thank [...] any other complaints. Per chart, moved from [place] to [place] in 2023. Presented to [facility] 01[facility]07 with [...] years Outpatient physician: ? Prior was with: [facility] Endocrinology [address] [address] Diabetes Complications: retinopathy and nephropathy [...] 20 01/12/2024 No results found for: TSH, M5WGQPW, T4FREE Cardiac echo: EF = Results for [...] . Thank you, Agustin Pinzon APRN - MATHEMATICS ACADEMIC CHAIR Engineering Design Manager/Endo. Diabetes & Metabolism VASCULAR ACCESS NOTE: Thank [...] attempt to reach Mr. Kearney. PICC pager [phone] PIV pager [phone] Associated Order(s): IP CONSULT TO INFECTIOUS DISEASE [...] hyperthyroidism. Admitted 01/11/2024 as a transfer from [facility] for neurological evaluation, LP for c/f meningitis/encephalitis. [...] note patient and her recently moved from [place] which seemed to be a very difficult move, she had also c/o some headaches in the past few days. She was taken to [place] by EMS on 01/07 she underwent a [...] Resource Strain: Low Risk (07/25/2023) Received from [facility] Overall Financial Resource Strain (CARDIA) Difficulty of Paying Living Expenses: Not very hard Food Insecurity: No Food Insecurity (07/25/2023) Received from [facility] Hunger Vital Sign Worried About Running Out of Food in the Last Year: Never true Ran Out of Food in the Last Year: Never true Transportation Needs: No Transportation Needs (07/25/2023) Received from [facility] PRAPARE - Transportation Lack of Transportation (Medical): No Lack of Transportation (Non-Medical): No Physical Activity: Insufficiently Active (07/25/2023) Received from [facility] Exercise Vital Sign Days of Exercise per Week: 1 day Minutes of Exercise per Session: 10 min Stress: No Stress Concern Present (07/25/2023) Received from [facility] [place] [facility] Occupational Health - Occupational Stress Questionnaire Feeling of Stress : Not at all Social Connections: Moderately Integrated (07/25/2023) Received from [facility] Social Network How would you rate your social network (family, work, friends)?: Adequate participation with social networks Intimate Partner Violence: Not At Risk (07/25/2023) Received from [facility] HITS Over the last 12 months how [...] Housing Stability: Low Risk (07/25/2023) Received from [facility] Housing Stability Vital Sign Unable to Pay [...] 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 Admitted 01/11/2024 as a transfer from [facility] for neurological evaluation, LP for c/f meningitis/encephalitis. ID is c/for the same AMS: on reviewing hx, fever happened in [place] ER. AMS had started at home w [...] here but noted to be 101 at [place]. Doesn't appear that bcx were obtained Estimated [...] Guaman MD documented in this encounter [facility] 01-22-2024 Nurse Note Report given to recovery room, Aure Aguilar RN. Pt breathing responsively, on oxygen, transported in hospital bed with anesthesiologist. documented in this encounter [facility] 01-14-2024 Hospital Discharge instructions Jaime Chambers II, [...] the care and services we provide at [facility]. We truly appreciate you taking the time [...] non-emergency questions call the Surgery Clinic at [phone]. - Eves, weekends and holidays - Ask to page the Trauma/Emergency General Surgery resident continuity editor. - Clinical Casemanager: Leonel Arita RN. [phone]. Personal Responsibilities: Driving Restriction: - You should [...] Insurance or Employer: - Your CCM, SW clinical trial coordinator can provide you with a work excuse. - Family Medical Leave, Short Term Disability or other documents can be sent to your casemanager or clinic staff for completion. - Fax documents with your full name, date of and medical record number to clinic [phone]. [employer] a return fax number. - Anticipate < 10 business days for document completion. To Request Your Medical Records: [facility] Department of Medical Information Management: - The care you receive at [facility] is documented on your Electronic Medical Record (EMR) - You may request information from your medical record or participate in your care through [employer], which provides a portion of your overall medical record and offers communication services with your providers offices. - To request information from your medical record: Download, complete and return this authorization form: [email or web address]/~/med ia/Files/WetanabannerMedical/Patient-Car e/Zeulmnh-hzx-Ljmypit-Guide/Medica l-Records/Jnbkguavlfpgx-sfn-Udtozh m-rq-Qmfkbmb-Information.pdf?la=en [facility] Medical Information Management Office: - [facility] at [phone] Mon- Fri 8am- 7pm - [facility] at [phone] Mon-Sun 8am- 7pm For Copies of [facility] Digital Radiologic Imaging on DVD Contact: - [facility] Department of Radiology Imaging Informatics PACS - PACS- Picture Archiving and Communications Systems [facility] - p [phone]. Hours Mon-Fri 9:00am to 3:00pm Personal Health [...] location of all previously scheduled appointments. - [email or web address]/patie nt-care/wtwlaeymt-nhl-hidxsge. [facility], [facility] [place] Map: [email or web address]/~/[facility]/Files/Shared/Locations/Driving- Directions/[facility]-Epw.pdf?la=en Trauma and Emergency General Surgery Clinic: [email or web address]/~/[facility] ia/Files/Shared/Locations/Driving- Directions/[facility]/Dri_Dir _[facility].pdf Irene Ahmadi MD - 01/27/2024 12:18 PM [...] Care Everywhere.Wound Drainage Record Sheet (Rhett Garcia) (Russian)Wound Drain Care (Rhett Garcia) (Russian)documented in this encounter [facility] 01-11-2024 History and physical note Hospital Medicine [...] properly assess for clonus. Ddx also includes MATHEMATICS ACADEMIC CHAIR lyme and syphillis. Will grab CSF lyme, [...] diabetes mellitus and hyperthyroidism who presented to [facility] on 01/07 with a chief complaint of confusion. Of note this history is obtained from outside hospital documentation as the patient can not provide history. It seems that she was last known well at 11:30 p.m. the evening before presentation. noted she was having unusual behaviors, and difficulty ambulating. At [facility] she underwent a stroke alert and a [...] or meningitis and she was referred to [facility]. LP was attempted but not successfully [...] erythema Skin: R sims with wound.. 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 Strength grossly equal in muscle groups of the bilateral UEs and LEs. Psych: Ox0, appropriate affect and cognition Data Review [facility] labs, imaging reviewed. Discuseed with PVAT documented in this encounter [facility] 01-11-2024 Note [facility] Evaluation note Diagnosis Delirium- Primary Other [...] intestinal obstruction [facility] Diagnosis SBO (small bowel obstruction)- Primary Unspecified intestinal obstruction [facility] Diagnosis Iron deficiency anemia, unspecified iron deficiency anemia type- Primary [facility] Diagnosis 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 noteNo assessment information availableWVan Wert [facility] Hospital Work Phone: Reason for referral (narrative)No reason for referral information availableWVan Wert County Hospital Work Phone: Reason for Referral Specialty Diagnoses / Procedures Referred By Lester head Referred To Contact Social Work Diagnoses Decreased functional mobility Delirium Jaime Chambers II, MD [address] [place] [address] Referral ID Status Reason Start Date Expiration Date V isits Requested Visits Authorized [id number] New Request 01/29/2024 02/22/2025 1 1 Specialty Diagnoses / Procedures Referred By Contac t Referred To Contact [facility] [address] [place] [phone] Referral ID Status Reason Start Date Expiration Date Visits Re quested Visits Authorized Specialty Diagnoses / Procedures Referred By Contac t Referred To Contact Neurology Diagnoses Impaired cognition Sunitha Corley, DO [address] [address] Referral ID Status Reason Start Date Expiration Date V isits Requested Visits Authorized [id number] New Request 01/15/2024 02/08/2025 1 1 Specialty Diagnoses / Procedures Referred By Contac t Referred To Contact Social Work Diagnoses Meningitis Decreased functional mobility Sunitha Corley, DO [address] [facility] [address] [address] Referral ID Status Reason Start Date Expiration Date V isits Requested Visits Authorized [id number] New Request 01/14/2024 02/07/2025 1 1 Specialty Diagnoses / Procedures Referred By Contac t Referred To Contact Interventional Radiology [facility] [address] [place] [phone] Advance Directives Date Activated Date Inactivated Comments [...] Guzman MD [address] [place] [address] [facility] [address] [place] [address] Referral ID Status Reason Start Date Expiration Date Visits Re quested Visits Authorized [id number] 1 1 Reason Comments Follow-up Reason Comments New Patient Reason Comments Benefits Investigation Reason Comments Non-Chemotherapy Treatment Specialty Diagnoses / Procedures Referred By Contac t Referred To Contact Diagnoses Iron malabsorption Iron deficiency anemia secondary to inadequate dietary iron intake Procedures IRON SUCROSE INJECTION PER 1 MG Adan Scott, DO [address] [place] [address] [facility] [address] [place] [address] Referral ID Status Reason Start Date Expiration Date V isits Requested Visits Authorized [id number] Authorized 04/09/2024 07/15/2024 0 99 Reason Comments SOCIAL WORK SERVICES (1ST TIME TREATMENT ) Referral ID Status Reason Start Date Expiration Date V isits Requested Visits Authorized [id number] Authorized 04/09/2024 07/15/2024 99 99 Reason Comments [...] Lisa Cornejo, RN)1916 (Paused - Provider: Lisa Cronejo, RN)1933 (Restarted - Provider: Lisa Cornejo RN)1933 [...] 50% needed, contact pharmacy or obtain from [employer] cart ++ Dextrose 50% injection 7.5-25 g(Linked [...] 50% needed, contact pharmacy or obtain from Virtual [employer] ++ glucose (GLUTOSE) 40 % oral gel [...] at 0722, Until Specified, Who to Notify: 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 Glucose is less than 80 [...] glucose is greater than 200md/dl, then notify Geothermal Sheet Metal Worker. And BLOOD GLUCOSE (POC DEVICE) (CANCELED) Routine, [...] 50% needed, contact pharmacy or obtain from [facility] cart ++ And glucose (GLUTOSE) 40 % [...] at 0739, Until Specified, Who to Notify: Geothermal Sheet Metal Worker, For all Blood Glucose LESS THAN 80 mg/dl, notify Geothermal Sheet Metal Worker after treatment per Hypoglycemia in Non- Adults [...] glucose is greater than 200mg/dl, then notify char house supervisor. And BLOOD GLUCOSE (POC DEVICE) [...] 50% needed, contact pharmacy or obtain from [facility] cart ++ And glucose (GLUTOSE) 40 % [...] at 0843, Until Specified, Who to Notify: Geothermal Sheet Metal Worker, For all Blood Glucose LESS THAN 80 mg/dl, notify Geothermal Sheet Metal Worker after treatment per Hypoglycemia in Non- Adults [...] Care Teams (unrecognized sec tion and content) Whiskey Filterer Relationship Specialty Start Date End Date Charlie Mosquera [facility] Pharmacist Infectious Disease 01/18/24 01/20/24 Ana England MD [address] [place] [address] Infectious Disease Infectious Disease 01/18/24 01/20/24 Whiskey Filterer Relationship Specialty Start Date End Date Julieta Orlando DO [address] [address] Internal Medicine 04/08/24 Whiskey Filterer Relationship Specialty Start Date End Date Fast, Julieta A, DO [address] [facility] [address] [place] [address] PCP - General Internal Medicine 04/09/24 Fast, Julieta A, DO [address] [facility] [address] [place] [address] Internal Medicine 04/08/24 Whiskey Filterer Relationship Specialty Start Date End Date Fast, Julieta A, DO [address] [facility] [facility] [address] [place] [address] PCP - General Internal Medicine 04/09/24 Fast, Julieta A, DO [address] [facility] [address] [place] [address] Internal Medicine 04/08/24 Whiskey Filterer Relationship Specialty Start Date End Date Fast, Julieta A, DO [address] [facility] [address] [place] [address] PCP - General Internal Medicine 04/09/24 Fast, Julieta A, DO [address] [facility] [address] [place] [address] Internal Medicine 04/08/24 Whiskey Filterer Relationship Specialty Start Date End Date Fast, Julieta A, DO [address] [facility] [address] [place] [address] PCP - General Internal Medicine 04/09/24 Fast, Julieta A, DO [address] [facility] [address] [place] [address] Internal Medicine 04/08/24 Whiskey Filterer Relationship Specialty Start Date End Date Fast, Julieta A, DO [address] [facility] [address] [place] [address] PCP - General Internal Medicine 04/09/24 Julieta Orlando DO [address] [facility] [address] [place] [address] Internal Medicine 04/08/24 Whiskey Filterer Relationship Specialty Start Date End Date Julieta Orlando DO [address] [facility] [address] [place] [address] PCP - General Internal Medicine 04/09/24 Julieta Orlando DO [address] [facility] [address] [place] [address] Internal Medicine 04/08/24 Whiskey Filterer Relationship Specialty Start Date End Date Julieta Orlando DO [address] [facility] [address] [facility] [address] PCP - General Internal Medicine 04/09/24 Julieta Orlando DO [address] [facility] [address] [place] [address] Internal Medicine 04/08/24 Team Status: Active Member [...] section and content) DATE CREATED AUTHOR 03/02/2024 [facility] DATE CREATED AUTHOR AUTHOR'S ORGANIZ ATION 06/06/2024 [facility] DATE CREATED AUTHOR AUTHOR'S ORGANPAULINO ATION 09/05/2024 [facility] Source Comments (unrecognize d section and content) In the event this informatio n is protected by the Federal Confidentiality of Alcohol and Drug Abuse Patient Records regulations: The Federal rules restrict any use of the information to criminally investigate or prosecute any alcohol or drug abuse patient.[facility] the event this information is protected by the Federal Confidentiality of Alcohol and Drug Abuse Patient Records regulations: The Federal rules restrict any use of the information to criminally investigate or prosecute any alcohol or drug abuse patient.[facility] the event this information is protected by the Federal Confidentiality of Alcohol and Drug Abuse Patient Records regulations: The Federal rules restrict any use of the information to criminally investigate or prosecute any alcohol or drug abuse patient.[facility] the event this information is protected by the Federal Confidentiality of Alcohol and Drug Abuse Patient Records regulations: The Federal rules restrict any use of the information to criminally investigate or prosecute any alcohol or drug abuse patient.[facility] the event this information is protected by the Federal Confidentiality of Alcohol and Drug Abuse Patient Records regulations: The Federal rules restrict any use of the information to criminally investigate or prosecute any alcohol or drug abuse patient.[facility] the event this information is protected by the Federal Confidentiality of Alcohol and Drug Abuse Patient Records regulations: The Federal rules restrict any use of the information to criminally investigate or prosecute any alcohol or drug abuse patient.[facility] the event this information is protected by the Federal Confidentiality of Alcohol and Drug Abuse Patient Records regulations: The Federal rules restrict any use of the information to criminally investigate or prosecute any alcohol or drug abuse patient.[facility] the event this information is protected by the Federal Confidentiality of Alcohol and Drug Abuse Patient Records regulations: The Federal rules restrict any use of the information to criminally investigate or prosecute any alcohol or drug abuse patient.[facility] the event this information is protected by the Federal Confidentiality of Alcohol and Drug Abuse Patient Records regulations: The Federal rules restrict any use of the information to criminally investigate or prosecute any alcohol or drug abuse patient.[facility] the event this information is protected by the Federal Confidentiality of Alcohol and Drug Abuse Patient Records regulations: The Federal rules restrict any use of the information to criminally investigate or prosecute any alcohol or drug abuse patient.[facility] Goals (unrecognized section and content) Goals may [...] BE BASED ON THE PRIMARY CLINICAL RECORDS. [facility] [employer] [facility]. provides no warranty or guarantee of the accuracy or completeness of information in this document.
--- NOTE | 2025-02-01 15:55 | HP.PCM.HOS_ITS ---
HPI - General General Date of Admission: 02/01/25 Date of Service: 02/01/25 Chief Complaint: Generalized weakness HPI Narrative OLY REYES, is a 79-year-old female history of diabetes, GERD, hyperthyroidism, hypertension who presented to [facility] ED 02/01/2025 due to decline over several days to weeks. Reportedly per family she had an episode where she lowered herself to the ground and was unable to get up and had laid on the floor for at least a day and has had decreased p.o. intake. In the ED temp 97.7, heart rate 74, blood pressure 103/53, RR 16 and pulse ox 100% on room air. CBC with white blood cell count of 8, hemoglobin 11.4, CMP revealed sodium of 131, bicarb 20.8, BUN 53 with a creatinine of 1.70, glucose of 255. CK obtained and was only 80. UA with leuk esterase, white blood cells, bacteria but also squamous cells. Chest x-ray no acute process. Brain CT no acute abnormality. Lactic acid 2.7. Patient's blood pressure was systolic in 80s to 90s but white blood cell count in normal limits, afebrile, was not suspected to be septic and was felt that this was due to dehydration, patient improved with IV fluids and hospitalist contacted for admission for generalized weakness and right hip cellulitis. Patient evaluated with at bedside. Patient and very poor historians and somewhat vague and evasive with answering questions. Reportedly patient did not fall but was feeling weak so she lowered herself to the floor and sat in the corner of the room for days, she has had poor p.o. intake in general but it was unclear how well she was eating and drinking while sitting there though sounds as though it was low as well. Patient initially denied headache and then reported she does have some headache, has a little bit of pain across her lower back but ROS otherwise negative though again patient very poor historian. [facility] Medical History Hypothyroidism Diabetes GERD (gastroesophageal reflux disease) Non-smoker Hypertension Home Medications ?Medication ?Instructions ?Recorded ?Last Taken ?Type atorvastatin 10 mg tablet 10 mg PO DAILY CHOLESTEROL 0 01/08/24 02/01/25 History carvedilol 25 mg tablet 25 mg PO BID HEART 01/08/24 02/01/25 History diltiazem HCl 120 mg 120 mg PO DAILY BLOOD PRESSU RE 01/08/24 02/01/25 History capsule,extended release 24 hr duloxetine 30 mg capsule,delayed 30 mg PO DAILY DEPRES GRECIA 01/08/24 02/01/25 History release methimazole 5 mg tablet 5 mg PO UD THYROID 01/08/24 Unknown History omeprazole 20 mg capsule,delayed 20 mg PO DAILY GERD 0 01/08/24 02/01/25 History release melatonin 3 mg tablet 3 mg PO QHS PRN PRN Insomnia #0 06/20/24 Unknown Rx tabs potassium chloride 20 mEq 20 meq PO BIDCM supplement # 0 tabs 06/20/24 02/01/25 Rx tablet,extended release(part/cryst) acetaminophen 500 mg tablet 1,000 mg (2 x 500 mg) PO Q 8 #0 tabs 07/03/24 Unknown Rx losartan 100 mg tablet 100 mg PO DAILY 30 days #30 tabs 07/03/24 02/01/25 Rx amlodipine 5 mg tablet 5 mg PO DAILY 02/01/2502/01 History furosemide 40 mg tablet 40 mg PO DAILY 02/01/25 07/2 History glipizide 5 mg tablet 2.5 mg PO DAILY 02/01/25 History ibuprofen 200 mg tablet (Advil) 200 mg PO Q8H PRN feve r or pain 02/01/25 02/01/25 History metformin 1,000 mg tablet 1,000 mg PO BID 02/01/25 History Allergy/AdvReac Type Severity Reaction Status Date / Time Sulfa (Sulfonamide Allergy Intermediate NEEDS Verified 02/01/25 13:39 Antibiotics) FOLLOW-UP Surgical History History of appendectomy History of cholecystectomy Social History household members: spouse Smoking Status: Never smoker alcohol intake: never substance use type: does not use ROS ROS Narrative General: Denies fever/chills HENT: Slight headache, denies stuffy nose, denies sore throat EYES: Denies changes in vision Resp: Denies cough, denies shortness of breath Cardiac: Denies chest pain GI: Denies abdominal pain, denies changes in bowel, denies nausea/vomiting : Denies changes in urination Extremity: Denies swelling MSK: Denies weakness Neuro: Denies any numbness/tingling Heme: Denies any bleeding or bruising Skin: Denies rashes but does have erythematous/cellulitic looking area on right hip Psychiatric: No complaints voiced Vital Signs Vital Signs Vital Signs: 02/01/25 13:25 02/01/25 13:37 02/01/25 14:29 Temperature 97.7 F L 97.7 F L Temperature Source Oral Oral Pulse Rate 74 71 70 Respiratory Rate 16 16 16 Blood Pressure 103/53 L 98/54 L 113/64 Blood Pressure Mean 69 68 80 Pulse Ox 100 98 98 Oxygen Delivery Method Room Air Room Air 02/01/25 14:37 02/01/25 15:00 02/01/25 15:30 Temperature 97.6 F L 97.9 F Temperature Source Oral Oral Pulse Rate 66 66 65 Respiratory Rate 17 20 H 17 Blood Pressure 83/54 L 88/49 L 107/60 Blood Pressure Mean 63 62 75 Pulse Ox 99 100 100 Oxygen Delivery Method Room Air Room Air 02/01/25 15:42 Temperature 97.7 F L Temperature Source Pulse Rate 65 Respiratory Rate 17 Blood Pressure 107/60 Blood Pressure Mean 75 Pulse Ox 100 Oxygen Delivery Method Weight Weight: 68.4 kg Body Mass Index (BMI) 26.6 Physical Exam Narrative General: Alert, poor historian, no she is at the hospital but not the year and has difficulty providing history HEENT: Normocephalic Eyes: Anicteric, normal conjunctiva, extraocular movements grossly intact Neck: Supple Respiratory: Clear to auscultation bilaterally, normal respiratory effort Cardiovascular: Regular rate and rhythm GI: Soft, nontender, nondistended Extremities: No edema Musculoskeletal: Moving all extremities Neuro: No overt focal neurological deficits Skin: Patient with area with eschar on right hip and surrounding appearing cellulitis Psych: Cooperative Results Lab / Micro Data 02/01/25 13:54 02/01/25 13:54 Labs: Laboratory Results - last 24 hr 02/01/25 13:54: WBC 8.0, RBC 4.10 L, Hgb 11.4 L, Hct 33.7 L, MCV 82.2, MCH 27.8, MCHC 33.8, RDW Std Deviation 37.4, RDW Coeff of Carmen 12.5, Plt Count 286, MPV 10.2, Immature Gran % (Auto) 0.400, Neut % (Auto) 73.1 H, Lymph % (Auto) 17.7 L, Antelope % (Auto) 6.1, Eos % (Auto) 2.1, Baso % (Auto) 0.6, Absolute Neuts (auto) 5.9, Absolute Lymphs (auto) 1.42, Nucleated RBC % 0, Sodium 131 L, Potassium 4.8, Chloride 95 L, Carbon Dioxide 20.8 L, Anion Gap 14, BUN 53 H, Creatinine 1.70 H, Estim Creat Clear Calc 25.72 L, Est GFR (MDRD) Non-Af 31 L, B UN/Creatinine Ratio 31.2 H, Glucose 255 H, Lactic Acid 2.7 H*, Calcium 10.3, Total Bilirubin 0.29, AST 20, ALT 12, Alkaline Phosphatase 152 H, Total Creatine Kinase 80, Total Protein 6.9, Albumin 3.4, Globulin 3.4, Albumin/Globulin Ratio 1.0 02/01/25 14:24: Urine Color Yellow, Urine Clarity Cloudy, Urine pH 5.0, Ur Specific [place] 1.020, Urine Protein 15 H, Urine Glucose (UA) 250 H, Urine Ketones 5 H, Urine Occult Blood 10 H, Urine Nitrite Negative, Urine Bilirubin Negative, Urine Urobilinogen Normal, Ur Leukocyte Esterase 500 H, Urine RBC 0 SEEN, Urine WBC 10-25 SEEN, Ur Squamous Epith Cells 5-10 SEEN, Ur Transition Epith Cell 0-5 SEEN, Urine Bacteria 3+, Urine Mucus 0 SEEN Rhythm Strip Rhythm Strip: Sinus Rhythm Rate: 71 Ectopy: None Imaging Radiology Impression Brain CT 02/01/25 14:06 IMPRESSION: No acute abnormality Reading Location: [facility] Chest X-Ray 02/01/25 14:06 IMPRESSION: Negative chest Reading Location: [facility] Assessment & Plan Assessment/Plan (1) Acute dehydration: (2) Acute kidney injury: (3) Wound cellulitis: PLAN: Plan # Acute metabolic encephalopathy -Thought to be due to right hip cellulitis and likely worsened with dehydration -Continue antibiotics/treat underlying conditions -UA abnormal but had squamous cells positive so unclear if this was contaminant or not -Supportive care # Right hip cellulitis - Patient started on Zosyn -Supportive care - Low suspicion for sepsis, suspect isolated cellulitis on top of patient's dehydration, blood cultures were sent in the ED however and are pending #Generalized weakness - Went down at home and was unable to stand and sat on the floor for days reportedly -CK actually within normal limits -Likely secondary to underlying infection and worsened by dehydration -PT/OT -IV fluid - TSH ordered #Low BP - Suspect secondary to dehydration with her elevated BUN and creatinine, sitting on the floor for days with reported poor p.o. intake - Hold home antihypertensives - IV fluids - Suspect lactic acid is also due to her dehydration # Abnormal UA -Patient with leuk esterase, white blood cells and bacteria 3+ but does have squamous cells this is concerning for possible contamination -Will continue empiric antibiotics for the right hip cellulitis and await culture and sensitivity data -Treating for right hip cellulitis as above # RICK on CKD stage IIIb -BUN of 53 and creatinine of 1.70, baseline creatinine appears to be around 1.3 -Suspect this is prerenal due to dehydration, IV fluids - Hold home Lasix - Monitor I's and O's # Hyponatremia - Sodium 131, unclear how long patient was down for but given her elevated BUN and creatinine suspect she is dehydrated, IV fluid repeat in the a.m. - If no improvement or if worsening may need to consider further workup #Type 2 diabetes mellitus -Glucose checks and sliding scale insulin - Hold home oral hypoglycemics, metformin, glipizide #GERD -Continue PPI # Hyperthyroidism - Continue home methimazole #Hypertension - Patient on the low side, hold home medications at this time #Depression/anxiety - Holding home duloxetine given extent of RICK/kidney dysfunction, can restart once this improves #DVT ppx: SCDs Kasia Arnold MD Charges/Coding Visit Charges Inpatient E&M: 30371 Init Hosp L2
[2025-02-01] MEDS: 0.9% Normal Saline (1000mL) 1,000 ML 999 ML IV (15:58)
--- OUTSIDE RECORDS SUMMARY | 2025-02-01 16:30 | XMS RPT_ITS | CCD ---
Author Organization [facility] Care Team Providers Care Field Identification Specialist Name Role Phone Christy Leonard [facility] Un available Ana England MD Unavailable [phone] Unavailable Primary Care Provider UnavailANNIE Mcneil Attending Unavail able SELF, SELF Referring Unavailable JAIME CHAMBERS II Attending Unavailable NATIVIDAD RAMIREZ Admitting Unavailable CONSULT, NEUROLOGY Consulting Unavailable SELF, SELF Referring Unavailable Fast DO, Julieta A Unavailable Fast DO, Julieta A Primary Care Provider [phone] MASCI, ADAN A Referring Unavailable FAST, JULIETA [...] Brooke Consulting Unavailable KRISTY DORANTES Consulting Unavailable hSira, Leonidas Consulting Unavailable Keri, Maegan Consulting Unavailable [...] Care Unavailable Fast, Julieta Attending Unavailable Fast, Juleita Referring Unavailable Fast, Julieta Primary Care Unavailable Adan Perez Attending Unavailable Fast, Julieta Primary Care Unavailable Adan Perez Referring Unavailable Adan Perez Attending Unavailable Fast DO, Dr. Garcia Primary Care Provider [phone] Darion SINGER, Dr. Garcia Attending Provider [phone] Fast DO, Dr. Garcia Referring Provider Allergies Allergy Classification Reported Allergen(s) Allergy Type Date of Onset Reaction(s) Facility (12 sources) Sulfonamides (Antibiotic) Propensity to adverse reactions to drug 4 Itching [facility] (3 sources) Sulfonamides (Antibiotic); Translations: [SULFA (SULFONAMIDE ANTIBIOTICS)] Propensity to adverse reactions to drug (disorder) 4 NEEDS FOLLOW-UP [facility] Repository Comment on above: spouse does not [...] January 08, 2024 12:00am polyethylene glycol 3350 89101 mg powder for oral solution (4 sources) [...] MEALS 0 June 20, 2024 1:00am sennosides, jail 8.6 mg oral tablet (4 sources) Start: [...] Active docusate sodium 50 mg / sennosides, jail 8.6 mg oral tablet (1 source) Start: [...] at 0722, Until Specified, Who to Notify: Digital Imaging Technician, Call Digital Imaging Technician if a.m. Glucose is less than 80 [...] glucose is greater than 200md/dl, then notify Digital Imaging Technician. [Order 2 End] [Order 3 Start] Name: [...] 50% needed, contact pharmacy or obtain from [facility] cart ++ [Order 5 End] [Order 6 [...] at 0739, Until Specified, Who to Notify: Digital Imaging Technician, For all Blood Glucose LESS THAN 80 mg/dl, notify Digital Imaging Technician after treatment per Hypoglycemia in Non- Adults [...] 50% needed, contact pharmacy or obtain from [facility] cart ++ [Order 1 End] [Order 2 [...] at 0843, Until Specified, Who to Notify: Digital Imaging Technician, For all Blood Glucose LESS THAN 80 mg/dl, notify Digital Imaging Technician after treatment per Hypoglycemia in Non- Adults [...] B (Bld) [Mass/Vol] 220.1 pg/mL High 0-100 [facility] BNP,B-Type NATRIURETIC PEPTI Rah 08-19-2024 Natriuretic peptide B (Bld) [Mass/Vol] 220.1 pg/mL High 0-100 [facility] Comment on above: Performed By: #### L 503.6620 ####[facility] [address] [place], [address] Basic Metabolic Profile (BMP )on 08-01-2024 BUN Normal 7-18 [facility] Comment on above: Result Comment: Canc elled via OM: Order cancelled - Patient discharged Performed By: #### L 100.0100, L500.2500 ####[facility] [address] [place], [address] BUN/CRE Normal 10-20 [facility] Comment on above: Result Comment: Canc elled via OM: Order cancelled - Patient discharged Performed By: #### L 100.0100, L500.2500 ####[facility] [address] [place], [address] CA,Total Normal 8.5-10.1 [facility] Comment on above: Result Comment: Canc elled via OM: Order cancelled - Patient discharged Performed By: #### L 100.0100, L500.2500 ####[facility] [address] [place], [address] CL Normal 98-107 [facility] Comment on above: Result Comment: Canc elled via OM: Order cancelled - Patient discharged Performed By: #### L 100.0100, L500.2500 ####[facility] [address] [place], [address] CO2 Normal 21.0-32.0 [facility] Comment on above: Result Comment: Canc elled via OM: Order cancelled - Patient discharged Performed By: #### L 100.0100, L500.2500 ####[facility] [address] [place], [address] CREAT,SERUM Normal 0.55-1.02 [facility] Comment on above: Result Comment: Canc elled via OM: Order cancelled - Patient discharged Performed By: #### L 100.0100, L500.2500 ####[facility] [address] [place], [address] EST GFR Normal >60 [facility] Comment on above: Result Comment: Canc elled via OM: Order cancelled - Patient discharged Performed By: #### L 100.0100, L500.2500 ####[facility] [address] [place], [address] EST GFR - AA Normal >60 [facility] Comment on above: Result Comment: Canc elled via OM: Order cancelled - Patient discharged Performed By: #### L 100.0100, L500.2500 ####[facility] [address] [place], [address] GAP Normal 5-15 [facility] Comment on above: Result Comment: Canc elled via OM: Order cancelled - Patient discharged Performed By: #### L 100.0100, L500.2500 ####[facility] [address] [place], [address] GLU Normal 74-106 [facility] Comment on above: Result Comment: Canc elled via OM: Order cancelled - Patient discharged Performed By: #### L 100.0100, L500.2500 ####[facility] [address] [place], [address] Potassium Normal 3.5-5.1 [facility] Comment on above: Result Comment: Canc elled via OM: Order cancelled - Patient discharged Performed By: #### L 100.0100, L500.2500 ####[facility] [address] [place], [address] Basic Metabolic Profile (BMP) Normal 136-145 [facility] Comment on above: Result Comment: Canc elled via OM: Order cancelled - Patient discharged Performed By: #### L 100.0100, L500.2500 ####[facility] [address] [place], [address] CBC W/Diff, Automatedon - Absolute Neut Normal 2.0-7.7 [facility] Comment on above: Result Comment: Canc elled via OM: Order cancelled - Patient discharged Performed By: #### L 100.0100, L500.2500 ####[facility] [address] [place], [address] HCT Normal 37-47 [facility] Comment on above: Result Comment: Canc elled via OM: Order cancelled - Patient discharged Performed By: #### L 100.0100, L500.2500 ####[facility] [address] [place], [address] HGB Normal 12.0-15.0 [facility] Comment on above: Result Comment: Canc elled via OM: Order cancelled - Patient discharged Performed By: #### L 100.0100, L500.2500 ####[facility] [address] [place], [address] MCH Normal 27.0-32.0 [facility] Comment on above: Result Comment: Canc elled via OM: Order cancelled - Patient discharged Performed By: #### L 100.0100, L500.2500 ####[facility] [address] [place], [address] MCHC Normal 32-36 [facility] Comment on above: Result Comment: Canc elled via OM: Order cancelled - Patient discharged Performed By: #### L 100.0100, L500.2500 ####[facility] [address] [place], [address] MCV Normal 81-99 [facility] Comment on above: Result Comment: Canc elled via OM: Order cancelled - Patient discharged Performed By: #### L 100.0100, L500.2500 ####[facility] [address] [place], [address] NEUT% Normal 47-70 [facility] Comment on above: Result Comment: Canc elled via OM: Order cancelled - Patient discharged Performed By: #### L 100.0100, L500.2500 ####[facility] [address] [place], [address] PLT Normal 150-450 [facility] Comment on above: Result Comment: Canc elled via OM: Order cancelled - Patient discharged Performed By: #### L 100.0100, L500.2500 ####[facility] [address] [place], [address] RBC Normal 4.2-5.4 [facility] Comment on above: Result Comment: Canc elled via OM: Order cancelled - Patient discharged Performed By: #### L 100.0100, L500.2500 ####[facility] [address] [place], [address] RDW CV Normal 11.6-14.6 [facility] Comment on above: Result Comment: Canc elled via OM: Order cancelled - Patient discharged Performed By: #### L 100.0100, L500.2500 ####[facility] [address] [place], [address] RDW SD Normal 35.1-43.9 [facility] Comment on above: Result Comment: Canc elled via OM: Order cancelled - Patient discharged Performed By: #### L 100.0100, L500.2500 ####[facility] [address] [place], [address] WBC Normal 4.4-11.0 [facility] Comment on above: Result Comment: Canc elled via OM: Order cancelled - Patient discharged Performed By: #### L 100.0100, L500.2500 ####[facility] [address] [place], [address] Basic Metabolic Profile (BMP )on 07-25-2024 BUN Normal 7-18 [facility] Comment on above: Result Comment: Canc elled via OM: Order cancelled - Patient discharged Performed By: #### L 100.0100, L500.2500 ####[facility] [address] [place], [address] BUN/CRE Normal 10-20 [facility] Comment on above: Result Comment: Canc elled via OM: Order cancelled - Patient discharged Performed By: #### L 100.0100, L500.2500 ####[facility] [address] [place], [address] CA,Total Normal 8.5-10.1 [facility] Comment on above: Result Comment: Canc elled via OM: Order cancelled - Patient discharged Performed By: #### L 100.0100, L500.2500 ####[facility] [address] [place], [address] CL Normal 98-107 [facility] Comment on above: Result Comment: Canc elled via OM: Order cancelled - Patient discharged Performed By: #### L 100.0100, L500.2500 ####[facility] [address] [place], [address] CO2 Normal 21.0-32.0 [facility] Comment on above: Result Comment: Canc elled via OM: Order cancelled - Patient discharged Performed By: #### L 100.0100, L500.2500 ####[facility] [address] [place], [address] CREAT,SERUM Normal 0.55-1.02 [facility] Comment on above: Result Comment: Canc elled via OM: Order cancelled - Patient discharged Performed By: #### L 100.0100, L500.2500 ####[facility] [address] [place], [address] EST GFR Normal >60 [facility] Comment on above: Result Comment: Canc elled via OM: Order cancelled - Patient discharged Performed By: #### L 100.0100, L500.2500 ####[facility] [address] [place], [address] EST GFR - AA Normal >60 [facility] Comment on above: Result Comment: Canc elled via OM: Order cancelled - Patient discharged Performed By: #### L 100.0100, L500.2500 ####[facility] [address] [place], [address] GAP Normal 5-15 [facility] Comment on above: Result Comment: Canc elled via OM: Order cancelled - Patient discharged Performed By: #### L 100.0100, L500.2500 ####[facility] [address] [place], [address] GLU Normal 74-106 [facility] Comment on above: Result Comment: Canc elled via OM: Order cancelled - Patient discharged Performed By: #### L 100.0100, L500.2500 ####[facility] [address] [place], [address] Potassium Normal 3.5-5.1 [facility] Comment on above: Result Comment: Canc elled via OM: Order cancelled - Patient discharged Performed By: #### L 100.0100, L500.2500 ####[facility] [address] [place], [address] Basic Metabolic Profile (BMP) Normal 136-145 [facility] Comment on above: Result Comment: Canc elled via OM: Order cancelled - Patient discharged Performed By: #### L 100.0100, L500.2500 ####[facility] [address] [place], [address] CBC W/Diff, Automatedon 07-16 Absolute Neut Normal 2.0-7.7 [facility] Comment on above: Result Comment: Canc elled via OM: Order cancelled - Patient discharged Performed By: #### L 100.0100, L500.2500 ####[facility] [address] [place], [address] HCT Normal 37-47 [facility] Comment on above: Result Comment: Canc elled via OM: Order cancelled - Patient discharged Performed By: #### L 100.0100, L500.2500 ####[facility] [address] [place], [address] HGB Normal 12.0-15.0 [facility] Comment on above: Result Comment: Canc elled via OM: Order cancelled - Patient discharged Performed By: #### L 100.0100, L500.2500 ####[facility] [address] [place], [address] MCH Normal 27.0-32.0 [facility] Comment on above: Result Comment: Canc elled via OM: Order cancelled - Patient discharged Performed By: #### L 100.0100, L500.2500 ####[facility] [address] [place], [address] MCHC Normal 32-36 [facility] Comment on above: Result Comment: Canc elled via OM: Order cancelled - Patient discharged Performed By: #### L 100.0100, L500.2500 ####[facility] [address] [place], [address] MCV Normal 81-99 [facility] Comment on above: Result Comment: Canc elled via OM: Order cancelled - Patient discharged Performed By: #### L 100.0100, L500.2500 ####[facility] [address] [place], [address] NEUT% Normal 47-70 [facility] Comment on above: Result Comment: Canc elled via OM: Order cancelled - Patient discharged Performed By: #### L 100.0100, L500.2500 ####[facility] [address] [place], [address] PLT Normal 150-450 [facility] Comment on above: Result Comment: Canc elled via OM: Order cancelled - Patient discharged Performed By: #### L 100.0100, L500.2500 ####[facility] [address] [place], [address] RBC Normal 4.2-5.4 [facility] Comment on above: Result Comment: Canc elled via OM: Order cancelled - Patient discharged Performed By: #### L 100.0100, L500.2500 ####[facility] [address], [address] RDW CV Normal 11.6-14.6 [facility] Comment on above: Result Comment: Canc elled via OM: Order cancelled - Patient discharged Performed By: #### L 100.0100, L500.2500 ####[facility] [address] [place], [address] RDW SD Normal 35.1-43.9 [facility] Comment on above: Result Comment: Canc elled via OM: Order cancelled - Patient discharged Performed By: #### L 100.0100, L500.2500 ####[facility] [address] [place], [address] WBC Normal 4.4-11.0 [facility] Comment on above: Result Comment: Canc elled via OM: Order cancelled - Patient discharged Performed By: #### L 100.0100, L500.2500 ####[facility] [address] [place], [address] Basic Metabolic Profile (BMP )on 07-18-2024 BUN Normal 7-18 [facility] Comment on above: Result Comment: Canc elled via OM: Order cancelled - Patient discharged Performed By: #### L 500.2500, L100.0100 ####[facility] [address] [place], [address] BUN/CRE Normal 10-20 [facility] Comment on above: Result Comment: Canc elled via OM: Order cancelled - Patient discharged Performed By: #### L 500.2500, L100.0100 ####[facility] [address] [place], [address] CA,Total Normal 8.5-10.1 [facility] Comment on above: Result Comment: Canc elled via OM: Order cancelled - Patient discharged Performed By: #### L 500.2500, L100.0100 ####[facility] [address] [place], [address] CL Normal 98-107 [facility] Comment on above: Result Comment: Canc elled via OM: Order cancelled - Patient discharged Performed By: #### L 500.2500, L100.0100 ####[facility] [address] [place], [address] CO2 Normal 21.0-32.0 [facility] Comment on above: Result Comment: Canc elled via OM: Order cancelled - Patient discharged Performed By: #### L 500.2500, L100.0100 ####[facility] [address] [place], [address] CREAT,SERUM Normal 0.55-1.02 [facility] Comment on above: Result Comment: Canc elled via OM: Order cancelled - Patient discharged Performed By: #### L 500.2500, L100.0100 ####[facility] [address] [place], [address] EST GFR Normal >60 [facility] Comment on above: Result Comment: Canc elled via OM: Order cancelled - Patient discharged Performed By: #### L 500.2500, L100.0100 ####[facility] [address] [place], [address] EST GFR - AA Normal >60 [facility] Comment on above: Result Comment: Canc elled via OM: Order cancelled - Patient discharged Performed By: #### L 500.2500, L100.0100 ####[facility] [address] [place], [address] GAP Normal 5-15 [facility] Comment on above: Result Comment: Canc elled via OM: Order cancelled - Patient discharged Performed By: #### L 500.2500, L100.0100 ####[facility] [address] [place], [address] GLU Normal 74-106 [facility] Comment on above: Result Comment: Canc elled via OM: Order cancelled - Patient discharged Performed By: #### L 500.2500, L100.0100 ####[facility] [address] [place], [address] Potassium Normal 3.5-5.1 [facility] Comment on above: Result Comment: Canc elled via OM: Order cancelled - Patient discharged Performed By: #### L 500.2500, L100.0100 ####[facility] [address] [place], [address] Basic Metabolic Profile (BMP) Normal 136-145 [facility] Comment on above: Result Comment: Canc elled via OM: Order cancelled - Patient discharged Performed By: #### L 500.2500, L100.0100 ####[facility] [address] [place], [address] CBC W/Diff, Automatedon 01-0 Absolute Neut Normal 2.0-7.7 [facility] Comment on above: Result Comment: Canc elled via OM: Order cancelled - Patient discharged Performed By: #### L 500.2500, L100.0100 ####[facility] [address] [place], [address] HCT Normal 37-47 [facility] Comment on above: Result Comment: Canc elled via OM: Order cancelled - Patient discharged Performed By: #### L 500.2500, L100.0100 ####[facility] [address] [place], [address] HGB Normal 12.0-15.0 [facility] Comment on above: Result Comment: Canc elled via OM: Order cancelled - Patient discharged Performed By: #### L 500.2500, L100.0100 ####[facility] [address] [place], [address] MCH Normal 27.0-32.0 [facility] Comment on above: Result Comment: Canc elled via OM: Order cancelled - Patient discharged Performed By: #### L 500.2500, L100.0100 ####[facility] [address] [place], [address] MCHC Normal 32-36 [facility] Comment on above: Result Comment: Canc elled via OM: Order cancelled - Patient discharged Performed By: #### L 500.2500, L100.0100 ####[facility] [address] [place], [address] MCV Normal 81-99 [facility] Comment on above: Result Comment: Canc elled via OM: Order cancelled - Patient discharged Performed By: #### L 500.2500, L100.0100 ####[facility] [address] [place], [address] NEUT% Normal 47-70 [facility] Comment on above: Result Comment: Canc elled via OM: Order cancelled - Patient discharged Performed By: #### L 500.2500, L100.0100 ####[facility] [address] [place], [address] PLT Normal 150-450 [facility] Comment on above: Result Comment: Canc elled via OM: Order cancelled - Patient discharged Performed By: #### L 500.2500, L100.0100 ####[facility] [address] [place], [address] RBC Normal 4.2-5.4 [facility] Comment on above: Result Comment: Canc elled via OM: Order cancelled - Patient discharged Performed By: #### L 500.2500, L100.0100 ####[facility] [address], [address] RDW CV Normal 11.6-14.6 [facility] Comment on above: Result Comment: Canc elled via OM: Order cancelled - Patient discharged Performed By: #### L 500.2500, L100.0100 ####[facility] [address] [place], [address] RDW SD Normal 35.1-43.9 [facility] Comment on above: Result Comment: Canc elled via OM: Order cancelled - Patient discharged Performed By: #### L 500.2500, L100.0100 ####[facility] [address], [address] WBC Normal 4.4-11.0 [facility] Comment on above: Result Comment: Canc elled via OM: Order cancelled - Patient discharged Performed By: #### L 500.2500, L100.0100 ####[facility] [address] [place], [address] Basic Metabolic Profile (BMP )on 07-11-2024 BUN Normal 7-18 [facility] Comment on above: Result Comment: Canc elled via OM: Order cancelled - Patient discharged Performed By: #### L 100.0100, L500.2500 ####[facility] [address] [place], [address] BUN/CRE Normal 10-20 [facility] Comment on above: Result Comment: Canc elled via OM: Order cancelled - Patient discharged Performed By: #### L 100.0100, L500.2500 ####[facility] [address] [place], [address] CA,Total Normal 8.5-10.1 [facility] Comment on above: Result Comment: Canc elled via OM: Order cancelled - Patient discharged Performed By: #### L 100.0100, L500.2500 ####[facility] [address] [place], [address] CL Normal 98-107 [facility] Comment on above: Result Comment: Canc elled via OM: Order cancelled - Patient discharged Performed By: #### L 100.0100, L500.2500 ####[facility] [address] [place], [address] CO2 Normal 21.0-32.0 [facility] Comment on above: Result Comment: Canc elled via OM: Order cancelled - Patient discharged Performed By: #### L 100.0100, L500.2500 ####[facility] [address] [place], [address] CREAT,SERUM Normal 0.55-1.02 [facility] Comment on above: Result Comment: Canc elled via OM: Order cancelled - Patient discharged Performed By: #### L 100.0100, L500.2500 ####[facility] [address] [place], [address] EST GFR Normal >60 [facility] Comment on above: Result Comment: Canc elled via OM: Order cancelled - Patient discharged Performed By: #### L 100.0100, L500.2500 ####[facility] [address] [place], [address] EST GFR - AA Normal >60 [facility] Comment on above: Result Comment: Canc elled via OM: Order cancelled - Patient discharged Performed By: #### L 100.0100, L500.2500 ####[facility] [address] [place], [address] GAP Normal 5-15 [facility] Comment on above: Result Comment: Canc elled via OM: Order cancelled - Patient discharged Performed By: #### L 100.0100, L500.2500 ####[facility] [address] [place], [address] GLU Normal 74-106 [facility] Comment on above: Result Comment: Canc elled via OM: Order cancelled - Patient discharged Performed By: #### L 100.0100, L500.2500 ####[facility] [address] [place], [address] Potassium Normal 3.5-5.1 [facility] Comment on above: Result Comment: Canc elled via OM: Order cancelled - Patient discharged Performed By: #### L 100.0100, L500.2500 ####[facility] [address] [place], [address] Basic Metabolic Profile (BMP) Normal 136-145 [facility] Comment on above: Result Comment: Canc elled via OM: Order cancelled - Patient discharged Performed By: #### L 100.0100, L500.2500 ####[facility] [address] [place], [address] CBC W/Diff, Automatedon 12-2 Absolute Neut Normal 2.0-7.7 [facility] Comment on above: Result Comment: Canc elled via OM: Order cancelled - Patient discharged Performed By: #### L 100.0100, L500.2500 ####[facility] [address] [place], [address] HCT Normal 37-47 [facility] Comment on above: Result Comment: Canc elled via OM: Order cancelled - Patient discharged Performed By: #### L 100.0100, L500.2500 ####[facility] [address] [place], [address] HGB Normal 12.0-15.0 [facility] Comment on above: Result Comment: Canc elled via OM: Order cancelled - Patient discharged Performed By: #### L 100.0100, L500.2500 ####[facility] [address] [place], [address] MCH Normal 27.0-32.0 [facility] Comment on above: Result Comment: Canc elled via OM: Order cancelled - Patient discharged Performed By: #### L 100.0100, L500.2500 ####[facility] [address] [place], [address] MCHC Normal 32-36 [facility] Comment on above: Result Comment: Canc elled via OM: Order cancelled - Patient discharged Performed By: #### L 100.0100, L500.2500 ####[facility] [address] [place], [address] MCV Normal 81-99 [facility] Comment on above: Result Comment: Canc elled via OM: Order cancelled - Patient discharged Performed By: #### L 100.0100, L500.2500 ####[facility] [address] [place], [address] NEUT% Normal 47-70 [facility] Comment on above: Result Comment: Canc elled via OM: Order cancelled - Patient discharged Performed By: #### L 100.0100, L500.2500 ####[facility] [address] [place], [address] PLT Normal 150-450 [facility] Comment on above: Result Comment: Canc elled via OM: Order cancelled - Patient discharged Performed By: #### L 100.0100, L500.2500 ####[facility] [address] [place], [address] RBC Normal 4.2-5.4 [facility] Comment on above: Result Comment: Canc elled via OM: Order cancelled - Patient discharged Performed By: #### L 100.0100, L500.2500 ####[facility] [address] [place], [address] RDW CV Normal 11.6-14.6 [facility] Comment on above: Result Comment: Canc elled via OM: Order cancelled - Patient discharged Performed By: #### L 100.0100, L500.2500 ####[facility] [address] [place], [address] RDW SD Normal 35.1-43.9 [facility] Comment on above: Result Comment: Canc elled via OM: Order cancelled - Patient discharged Performed By: #### L 100.0100, L500.2500 ####[facility] [address] [place], [address] WBC Normal 4.4-11.0 [facility] Comment on above: Result Comment: Canc elled via OM: Order cancelled - Patient discharged Performed By: #### L 100.0100, L500.2500 ####[facility] [address] [place], [address] Bedside Glucoseon 07-06-2024 FINGERSTICK GLU 143 mg/dL High 74-106 [facility] Comment on above: Result Comment: ADAL GEMENT OF PATIENT CARE PER NURSING PROTOCOL Performed By: #### L 501.080 ####[facility] [address] [place], [address] Bedside Glucoseon 4 FINGERSTICK GLU 231 mg/dL High 74-106 [facility] Comment on above: Result Comment: ADAL GEMENT OF PATIENT CARE PER NURSING PROTOCOL Performed By: #### L 501.080 ####[facility] [address] [place], [address] FINGERSTICK GLU 206 mg/dL High 74-106 [facility] Comment on above: Result Comment: ADAL GEMENT OF PATIENT CARE PER NURSING PROTOCOL Performed By: #### L 501.080 ####[facility] [address] [place], [address] FINGERSTICK GLU 238 mg/dL High 74-106 [facility] Comment on above: Result Comment: ADAL GEMENT OF PATIENT CARE PER NURSING PROTOCOL Performed By: #### L 501.080 ####[facility] [address] [place], [address] FINGERSTICK GLU 137 mg/dL High 74-106 [facility] Comment on above: Result Comment: ADAL GEMENT OF PATIENT CARE PER NURSING PROTOCOL Performed By: #### L 501.080 ####[facility] [address] [place], [address] Basic Metabolic Profile (BMP )on 07-04-2024 BUN/CRE 28.0 RATIO High 10-20 [facility] Comment on above: Performed By: #### L 100.0100, L500.2500 ####[facility] [address] [place], [address] CA,Total 9.7 mg/dL Normal 8.5-10.1 [facility] Comment on above: Performed By: #### L 100.0100, L500.2500 ####[facility] [address] [place], [address] Chloride [Moles/Vol] 111 mmol/L High 98-107 [facility] Comment on above: Performed By: #### L 100.0100, L500.2500 ####[facility] [address] [place], [address] CO2 [Moles/Vol] 25.0 mmol/L Normal 21.0-32.0 [facility] Comment on above: Performed By: #### L 100.0100, L500.2500 ####[facility] [address] [place], [address] Creatinine [Mass/Vol] 1.18 mg/dL High 0.55-1.02 [facility] Comment on above: Result Comment: The validity of the calculated GFR GFRAA in patients over70 years has not been determined. Clinical correlation isessential. Performed By: #### L 100.0100, L500.2500 ####[facility] [address] [place], [address] ECRCL 36.10 ml/min Normal [facility] Comment on above: Performed By: #### L 100.0100, L500.2500 ####[facility] [address] [place], [address] EST GFR - AA 57 mL/min Low >60 [facility] Comment on above: Result Comment: Afri can Egyptian GFR Calc Performed By: #### L 100.0100, L500.2500 ####[facility] [address] [place], [address] GAP 3 Low 5-15 [facility] Comment on above: Performed By: #### L 100.0100, L500.2500 ####[facility] [address] [place], [address] GFR/1.73 sq M.predicted among non-blacks MDRD (S/P/Bld) [Vol rate/Area] 47 mL/min/{1.73_m2} Low >60 [facility] Comment on above: Result Comment: Non- GFR Calc Performed By: #### L 100.0100, L500.2500 ####[facility] [address] [place], [address] Glucose [Mass/Vol] 169 mg/dL High 74-106 [facility] Comment on above: Result Comment: Fast ing Glucose result greater than or equal to 126 mg/dLsuggests DIABETES MELLITUS per A.D.A. criteria. Performed By: #### L 100.0100, L500.2500 ####[facility] [address] [place], [address] Potassium [Moles/Vol] 4.9 mmol/L Normal 3.5-5.1 [facility] Comment on above: Performed By: #### L 100.0100, L500.2500 ####[facility] [address] [place], [address] Sodium [Moles/Vol] 139 mmol/L Normal 136-145 [facility] Comment on above: Performed By: #### L 100.0100, L500.2500 ####[facility] [address] [place], [address] Urea nitrogen [Mass/Vol] 33 mg/dL High 7-18 [facility] Comment on above: Performed By: #### L 100.0100, L500.2500 ####[facility] [address] [place], [address] Bedside Glucoseon 07-04-2024 FINGERSTICK GLU 192 mg/dL High 74-106 [facility] Comment on above: Result Comment: ADAL GEMENT OF PATIENT CARE PER NURSING PROTOCOL Performed By: #### L 501.080 ####[facility] [address] [place], [address] FINGERSTICK GLU 197 mg/dL High 74-106 [facility] Comment on above: Result Comment: ADAL GEMENT OF PATIENT CARE PER NURSING PROTOCOL Performed By: #### L 501.080 ####[facility] [address] [place], [address] FINGERSTICK GLU 151 mg/dL High 74-106 [facility] Comment on above: Result Comment: ADAL GEMENT OF PATIENT CARE PER NURSING PROTOCOL Performed By: #### L 501.080 ####[facility] [address] [place], [address] CBC W/Diff, Automatedon 12-2 0-2023 Absolute Lymph 1.58 X10 3/uL Normal 0.83-4.51 [facility] Comment on above: Performed By: #### L 100.0100, L500.2500 ####[facility] [address] [place], [address] Absolute Neut 4.0 X10 3/uL Normal 2.0-7.7 [facility] Comment on above: Performed By: #### L 100.0100, L500.2500 ####[facility] [address] [place], [address] Basophils/100 WBC (Bld) 0.8 % Normal 0-1 [facility] Comment on above: Performed By: #### L 100.0100, L500.2500 ####[facility] [address] [place], [address] Eosinophils/100 WBC (Bld) 3.3 % Normal 0-5 [facility] Comment on above: Performed By: #### L 100.0100, L500.2500 ####[facility] [address] [place], [address] Erythrocyte distribution width (RBC) [Ratio] 16.9 % High 11.6-14.6 [facility] Comment on above: Performed By: #### L 100.0100, L500.2500 ####[facility] [address] [place], [address] Hematocrit (Bld) [Volume fraction] 36.1 % Low 37-47 [facility] Comment on above: Performed By: #### L 100.0100, L500.2500 ####[facility] [address] [place], [address] Hemoglobin (Bld) [Mass/Vol] 10.9 g/dL Low 12.0-15.0 [facility] Comment on above: Performed By: #### L 100.0100, L500.2500 ####[facility] [address] [place], [address] IG% 0.300 Normal 0.0-0.9 [facility] Comment on above: Result Comment: IG% - Immature Granulocytes (promyelocytes, myelocytes andmetamyelocytes) > 1% indicates that a LEFT SHIFT is Present. Performed By: #### L 100.0100, L500.2500 ####[facility] [address] [place], [address] Lymphocytes/100 WBC (Bld) 24.8 % Normal 19-41 [facility] Comment on above: Performed By: #### L 100.0100, L500.2500 ####[facility] [address] [place], [address] MCH (RBC) [Entitic mass] 26.0 pg Low 27.0-32.0 [facility] Comment on above: Performed By: #### L 100.0100, L500.2500 ####[facility] [address] [place], [address] MCHC (RBC) [Mass/Vol] 30.2 g/dL Low 32-36 [facility] Comment on above: Performed By: #### L 100.0100, L500.2500 ####[facility] [address] [place], [address] MCV (RBC) [Entitic vol] 86.2 fL Normal 81-99 [facility] Comment on above: Performed By: #### L 100.0100, L500.2500 ####[facility] [address] [place], [address] Monocytes/100 WBC (Bld) 8.6 % Normal 0-10 [facility] Comment on above: Performed By: #### L 100.0100, L500.2500 ####[facility] [address] [place], [address] Neutrophils/100 WBC (Bld) 62.2 % Normal 47-70 [facility] Comment on above: Performed By: #### L 100.0100, L500.2500 ####[facility] [address] [place], [address] Nucleated RBC (Bld) [#/Vol] 0 10*3/uL Normal 0-5 [facility] Comment on above: Performed By: #### L 100.0100, L500.2500 ####[facility] [address] [place], [address] Platelet mean volume (Bld) [Entitic vol] 10.2 fL Normal 6.2-12.0 [facility] Comment on above: Performed By: #### L 100.0100, L500.2500 ####[facility] [address] [place], [address] Platelets (Bld) [#/Vol] 261 10*3/uL Normal 150-450 [facility] Comment on above: Performed By: #### L 100.0100, L500.2500 ####[facility] [address] [place], [address] RBC (Bld) [#/Vol] 4.19 10*6/uL Low 4.2-5.4 [facility] Comment on above: Performed By: #### L 100.0100, L500.2500 ####[facility] [address] [place], [address] RDW SD 52.9 fl High 35.1-43.9 [facility] Comment on above: Performed By: #### L 100.0100, L500.2500 ####[facility] [address] [place], [address] WBC (Bld) [#/Vol] 6.4 10*3/uL Normal 4.4-11.0 [facility] Comment on above: Performed By: #### L 100.0100, L500.2500 ####[facility] [address] [place], [address] Bedside Glucoseon 12-19-2024 FINGERSTICK GLU 265 mg/dL High 74-106 [facility] Comment on above: Result Comment: ADAL GEMENT OF PATIENT CARE PER NURSING PROTOCOL Performed By: #### L 501.080 ####[facility] [address] [place], [address] FINGERSTICK GLU 130 mg/dL High [facility]106 [facility] Comment on above: Result Comment: ADAL GEMENT OF PATIENT CARE PER NURSING PROTOCOL Performed By: #### L 501.080 ####[facility] [address] [facility] [address] FINGERSTICK GLU 220 mg/dL High [address] [place] [address] Comment on above: Result Comment: ADAL GEMENT OF PATIENT CARE PER NURSING PROTOCOL Performed By: #### L 501.080 ####[facility] [address] [facility] [address] FINGERSTICK GLU 119 mg/dL High [address] [place] [address] Comment on above: Result Comment: ADAL GEMENT OF PATIENT CARE PER NURSING PROTOCOL Performed By: #### L 501.080 ####[facility] [address] [place], [address] Bedside Glucoseon 4 FINGERSTICK GLU 151 mg/dL High [address] [place] [address] Comment on above: Result Comment: ADAL GEMENT OF PATIENT CARE PER NURSING PROTOCOL Performed By: #### L 501.080 ####[facility] [address] [place], [address] FINGERSTICK GLU 110 mg/dL High [address] [place] [address] Comment on above: Result Comment: ADAL GEMENT OF PATIENT CARE PER NURSING PROTOCOL Performed By: #### L 501.080 ####[facility] [address] [place], [address] FINGERSTICK GLU 159 mg/dL High [facility]106 [facility] Comment on above: Result Comment: ADAL GEMENT OF PATIENT CARE PER NURSING PROTOCOL Performed By: #### L 501.080 ####[facility] [address] [place], [address] FINGERSTICK GLU 109 mg/dL High [facility]106 [facility] Comment on above: Result Comment: ADAL GEMENT OF PATIENT CARE PER NURSING PROTOCOL Performed By: #### L 501.080 ####[facility] [address] [place], [address] Bedside Glucoseon 12-4 FINGERSTICK GLU 114 mg/dL High -106 [facility] Comment on above: Result Comment: ADAL GEMENT OF PATIENT CARE PER NURSING PROTOCOL Performed By: #### L 501.080 ####[facility] [address] [place], [address] FINGERSTICK GLU 123 mg/dL High -[address] [place] [address] Comment on above: Result Comment: ADAL GEMENT OF PATIENT CARE PER NURSING PROTOCOL Performed By: #### L 501.080 ####[facility] [address] [place], [address] FINGERSTICK GLU 96 mg/dL Normal -[address] [place] [address] Comment on above: Result Comment: ADAL GEMENT OF PATIENT CARE PER NURSING PROTOCOL Performed By: #### L 501.080 ####[facility] [address] [place], [address] Bedside Glucoseon 16-4 FINGERSTICK GLU 146 mg/dL High [address] [place] [address] Comment on above: Result Comment: ADAL GEMENT OF PATIENT CARE PER NURSING PROTOCOL Performed By: #### L 501.080 ####[facility] [address] [place], [address] FINGERSTICK GLU 42 mg/dL Invalid Interpretation Code 74-106 [facility] Comment on above: Result Comment: Dr Prisca griffith FollowedMANAGEMENT OF PATIENT CARE PER NURSING PROTOCOL Performed By: #### L 501.080 ####[facility] [address] [place], [address] FINGERSTICK GLU 88 mg/dL Normal 74-106 [facility] Comment on above: Result Comment: ADAL GEMENT OF PATIENT CARE PER NURSING PROTOCOL Performed By: #### L 501.080 ####[facility] [address] [place], [address] FINGERSTICK GLU 116 mg/dL High 74-106 [facility] Comment on above: Result Comment: ADAL GEMENT OF PATIENT CARE PER NURSING PROTOCOL Performed By: #### L 501.080 ####[facility] [address] [place], [address] FINGERSTICK GLU 118 mg/dL High 74-106 [facility] Comment on above: Result Comment: ADAL GEMENT OF PATIENT CARE PER NURSING PROTOCOL Performed By: #### L 501.080 ####[facility] [address] [place], [address] COVID 19 AG RAPID (RN DANIEL Head)on 06-30-2024 SARS-CoV-2 (COVID-19) RNA JAYLIN+probe Ql (Unsp spec) SARS-CoV-2 (COVID 19) Negative RAPID METHOD BinaxNow COVID19 Ag Card Normal [facility] Comment on above: Performed By: #### M 100.505 ####[facility] [address] [place], [address] Bedside Glucoseon 06-29-2024 FINGERSTICK GLU 90 mg/dL Normal 74-106 [facility] Comment on above: Result Comment: ADAL GEMENT OF PATIENT CARE PER NURSING PROTOCOL Performed By: #### L 501.080 ####[facility] [address] [place], [address] FINGERSTICK GLU 112 mg/dL High 74-106 [facility] Comment on above: Result Comment: ADAL GEMENT OF PATIENT CARE PER NURSING PROTOCOL Performed By: #### L 501.080 ####[facility] [address] [place], [address] FINGERSTICK GLU 59 mg/dL Low 74-106 [facility] Comment on above: Result Comment: ADAL GEMENT OF PATIENT CARE PER NURSING PROTOCOL Performed By: #### L 501.080 ####[facility] [address] [place], [address] FINGERSTICK GLU 214 mg/dL High 74-106 [facility] Comment on above: Result Comment: ADAL GEMENT OF PATIENT CARE PER NURSING PROTOCOL Performed By: #### L 501.080 ####[facility] [address] [place], [address] FINGERSTICK GLU 94 mg/dL Normal 74-106 [facility] Comment on above: Result Comment: ADAL GEMENT OF PATIENT CARE PER NURSING PROTOCOL Performed By: #### L 501.080 ####[facility] [address] [place], [address] Bedside Glucoseon 06-28-2024 FINGERSTICK GLU 80 mg/dL Normal 74-106 [facility] Comment on above: Result Comment: ADAL GEMENT OF PATIENT CARE PER NURSING PROTOCOL Performed By: #### L 501.080 ####[facility] [address] [place], [address] FINGERSTICK GLU 97 mg/dL Normal 74-106 [facility] Comment on above: Result Comment: ADAL GEMENT OF PATIENT CARE PER NURSING PROTOCOL Performed By: #### L 501.080 ####[facility] [address] [place], [address] FINGERSTICK GLU 142 mg/dL High 74-106 [facility] Comment on above: Result Comment: ADAL GEMENT OF PATIENT CARE PER NURSING PROTOCOL Performed By: #### L 501.080 ####[facility] [address] [place], [address] FINGERSTICK GLU 97 mg/dL Normal 74-106 [facility] Comment on above: Result Comment: ADAL GOODEN OF PATIENT CARE PER NURSING PROTOCOL Performed By: #### L 501.080 ####[facility] [address] [place], [address] Basic Metabolic Profile (BMP )on 06-27-2024 BUN/CRE 21.1 RATIO High 10-20 [facility] Comment on above: Performed By: #### L 500.2500, L100.0100 ####[facility] [address], [address] CA,Total 9.6 mg/dL Normal 8.5-10.1 [facility] Comment on above: Performed By: #### L 500.2500, L100.0100 ####[facility] [address] [place], [address] Chloride [Moles/Vol] 110 mmol/L High 98-107 [facility] Comment on above: Performed By: #### L 500.2500, L100.0100 ####[facility] [address] [place], [address] CO2 [Moles/Vol] 27.0 mmol/L Normal 21.0-32.0 [facility] Comment on above: Performed By: #### L 500.2500, L100.0100 ####[facility] [address], [address] Creatinine [Mass/Vol] 1.14 mg/dL High 0.55-1.02 [facility] Comment on above: Result Comment: The validity of the calculated GFR GFRAA in patients over70 years has not been determined. Clinical correlation isessential. Performed By: #### L 500.2500, L100.0100 ####[facility] [address] [place], [address] ECRCL 37.97 ml/min Normal [facility] Comment on above: Performed By: #### L 500.2500, L100.0100 ####[facility] [address] [place], [address] EST GFR - AA 59 mL/min Low >60 [facility] Comment on above: Result Comment: Afri can Egyptian GFR Calc Performed By: #### L 500.2500, L100.0100 ####[facility] [address] [place], [address] GAP 3 Low 5-15 [facility] Comment on above: Performed By: #### L 500.2500, L100.0100 ####[facility] [address] [place], [address] GFR/1.73 sq M.predicted among non-blacks MDRD (S/P/Bld) [Vol rate/Area] 49 mL/min/{1.73_m2} Low >60 [facility] Comment on above: Result Comment: Non- GFR Calc Performed By: #### L 500.2500, L100.0100 ####[facility] [address] [place], [address] Glucose [Mass/Vol] 111 mg/dL High 74-106 [facility] Comment on above: Result Comment: Fast ing Glucose result from 100 to 125 mg/dLsuggests IMPAIRED HOMEOSTASIS per A.D.A. criteria. Performed By: #### L 500.2500, L100.0100 ####[facility] [address] [place], [address] Potassium [Moles/Vol] 4.9 mmol/L Normal 3.5-5.1 [facility] Comment on above: Performed By: #### L 500.2500, L100.0100 ####[facility] [address] [place], [address] Sodium [Moles/Vol] 140 mmol/L Normal 136-145 [facility] Comment on above: Performed By: #### L 500.2500, L100.0100 ####[facility] [address] [place], [address] Urea nitrogen [Mass/Vol] 24 mg/dL High 7-18 [facility] Comment on above: Performed By: #### L 500.2500, L100.0100 ####[facility] [address], [address] Bedside Glucoseon 06-27-2024 FINGERSTICK GLU 88 mg/dL Normal 74-106 [facility] Comment on above: Result Comment: ADAL GEMENT OF PATIENT CARE PER NURSING PROTOCOL Performed By: #### L 501.080 ####[facility] [address] [place], [address] FINGERSTICK GLU 124 mg/dL High 74-106 [facility] Comment on above: Result Comment: ADAL GEMENT OF PATIENT CARE PER NURSING PROTOCOL Performed By: #### L 501.080 ####[facility] [address] [place], [address] CBC W/Diff, Automatedon - Absolute Lymph 1.74 X10 3/uL Normal 0.83-4.51 [facility] Comment on above: Performed By: #### L 500.2500, L100.0100 ####[facility] [address] [place], [address] Absolute Neut 3.3 X10 3/uL Normal 2.0-7.7 [facility] Comment on above: Performed By: #### L 500.2500, L100.0100 ####[facility] [address], [address] Basophils/100 WBC (Bld) 0.5 % Normal 0-1 [facility] Comment on above: Performed By: #### L 500.2500, L100.0100 ####[facility] [address] [place], [address] Eosinophils/100 WBC (Bld) 4.9 % Normal 0-5 [facility] Comment on above: Performed By: #### L 500.2500, L100.0100 ####[facility] [address] [place], [address] Erythrocyte distribution width (RBC) [Ratio] 17.1 % High 11.6-14.6 [facility] Comment on above: Performed By: #### L 500.2500, L100.0100 ####[facility] [address] [place], [address] Hematocrit (Bld) [Volume fraction] 37.3 % Normal 37-47 [facility] Comment on above: Performed By: #### L 500.2500, L100.0100 ####[facility] [address] [place], [address] Hemoglobin (Bld) [Mass/Vol] 11.1 g/dL Low 12.0-15.0 [facility] Comment on above: Performed By: #### L 500.2500, L100.0100 ####[facility] [address] [place], [address] IG% 0.700 Normal 0.0-0.9 [facility] Comment on above: Result Comment: IG% - Immature Granulocytes (promyelocytes, myelocytes andmetamyelocytes) > 1% indicates that a LEFT SHIFT is Present. Performed By: #### L 500.2500, L100.0100 ####[facility] [address] [place], [address] Lymphocytes/100 WBC (Bld) 29.2 % Normal 19-41 [facility] Comment on above: Performed By: #### L 500.2500, L100.0100 ####[facility] [address] [place], [address] MCH (RBC) [Entitic mass] 25.8 pg Low 27.0-32.0 [facility] Comment on above: Performed By: #### L 500.2500, L100.0100 ####[facility] [address] [place], [address] MCHC (RBC) [Mass/Vol] 29.8 g/dL Low 32-36 [facility] Comment on above: Performed By: #### L 500.2500, L100.0100 ####[facility] [address] [place], [address] MCV (RBC) [Entitic vol] 86.7 fL Normal 81-99 [facility] Comment on above: Performed By: #### L 500.2500, L100.0100 ####[facility] [address] [place], [address] Monocytes/100 WBC (Bld) 9.4 % Normal 0-10 [facility] Comment on above: Performed By: #### L 500.2500, L100.0100 ####[facility] [address] [place], [address] Neutrophils/100 WBC (Bld) 55.3 % Normal 47-70 [facility] Comment on above: Performed By: #### L 500.2500, L100.0100 ####[facility] [address] [place], [address] Nucleated RBC (Bld) [#/Vol] 0 10*3/uL Normal 0-5 [facility] Comment on above: Performed By: #### L 500.2500, L100.0100 ####[facility] [address] [place], [address] Platelet mean volume (Bld) [Entitic vol] 10.5 fL Normal 6.2-12.0 [facility] Comment on above: Performed By: #### L 500.2500, L100.0100 ####[facility] [address] [place], [address] Platelets (Bld) [#/Vol] 272 10*3/uL Normal 150-450 [facility] Comment on above: Performed By: #### L 500.2500, L100.0100 ####[facility] [address] [place], [address] RBC (Bld) [#/Vol] 4.30 10*6/uL Normal 4.2-5.4 [facility] Comment on above: Performed By: #### L 500.2500, L100.0100 ####[facility] [address] [place], [address] RDW SD 53.7 fl High 35.1-43.9 [facility] Comment on above: Performed By: #### L 500.2500, L100.0100 ####[facility] [address] [place], [address] WBC (Bld) [#/Vol] 6.0 10*3/uL Normal 4.4-11.0 [facility] Comment on above: Performed By: #### L 500.2500, L100.0100 ####[facility] [address] [place], [address] Bedside Glucoseon 06-26-2024 FINGERSTICK GLU 107 mg/dL High 74-106 [facility] Comment on above: Result Comment: ADAL GEMENT OF PATIENT CARE PER NURSING PROTOCOL Performed By: #### L 501.080 ####[facility] [address] [place], [address] FINGERSTICK GLU 120 mg/dL High 74-106 [facility] Comment on above: Result Comment: ADAL GEMENT OF PATIENT CARE PER NURSING PROTOCOL Performed By: #### L 501.080 ####[facility] [address] [place], [address] FINGERSTICK GLU 66 mg/dL Low 74-106 [facility] Comment on above: Result Comment: ADAL GEMENT OF PATIENT CARE PER NURSING PROTOCOL Performed By: #### L 501.080 ####[facility] [address] [place], [address] FINGERSTICK GLU 181 mg/dL High 74-106 [facility] Comment on above: Result Comment: ADAL GEMENT OF PATIENT CARE PER NURSING PROTOCOL Performed By: #### L 501.080 ####[facility] [address] [place], [address] FINGERSTICK GLU 159 mg/dL High 74-106 [facility] Comment on above: Result Comment: ADAL GEMENT OF PATIENT CARE PER NURSING PROTOCOL Performed By: #### L 501.080 ####[facility] [address] [place], [address] Bedside Glucoseon 06-25-2024 FINGERSTICK GLU 87 mg/dL Normal 74-106 [facility] Comment on above: Result Comment: ADAL GEMENT OF PATIENT CARE PER NURSING PROTOCOL Performed By: #### L 501.080 ####[facility] [address] [place], [address] FINGERSTICK GLU 56 mg/dL Low 74-106 [facility] Comment on above: Result Comment: ADAL GEMENT OF PATIENT CARE PER NURSING PROTOCOL Performed By: #### L 501.080 ####[facility] [address] [place], [address] FINGERSTICK GLU 57 mg/dL Low 74-106 [facility] Comment on above: Result Comment: ADAL GEMENT OF PATIENT CARE PER NURSING PROTOCOL Performed By: #### L 501.080 ####[facility] [address] [place], [address] FINGERSTICK GLU 100 mg/dL Normal 74-106 [facility] Comment on above: Result Comment: ADAL GEMENT OF PATIENT CARE PER NURSING PROTOCOL Performed By: #### L 501.080 ####[facility] [address] [place], [address] FINGERSTICK GLU 127 mg/dL High 74-106 [facility] Comment on above: Result Comment: ADAL GEMENT OF PATIENT CARE PER NURSING PROTOCOL Performed By: #### L 501.080 ####[facility] [address] [place], [address] FINGERSTICK GLU 98 mg/dL Normal 74-106 [facility] Comment on above: Result Comment: ADAL GEMENT OF PATIENT CARE PER NURSING PROTOCOL Performed By: #### L 501.080 ####[facility] [address] [place], [address] Bedside Glucoseon 06-24-2024 FINGERSTICK GLU 90 mg/dL Normal 74-106 [facility] Comment on above: Result Comment: ADAL GEMENT OF PATIENT CARE PER NURSING PROTOCOL Performed By: #### L 501.080 ####[facility] [address] [place], [address] FINGERSTICK GLU 172 mg/dL High 74-106 [facility] Comment on above: Result Comment: ADAL GEMENT OF PATIENT CARE PER NURSING PROTOCOL Performed By: #### L 501.080 ####[facility] [address] [place], [address] FINGERSTICK GLU 147 mg/dL High 74-106 [facility] Comment on above: Result Comment: ADAL GEMENT OF PATIENT CARE PER NURSING PROTOCOL Performed By: #### L 501.080 ####[facility] [address] [place], [address] FINGERSTICK GLU 88 mg/dL Normal 74-106 [facility] Comment on above: Result Comment: ADAL GEMENT OF PATIENT CARE PER NURSING PROTOCOL Performed By: #### L 501.080 ####[facility] [address] [place], [address] FINGERSTICK GLU 59 mg/dL Low 74-106 [facility] Comment on above: Result Comment: ADAL GEMENT OF PATIENT CARE PER NURSING PROTOCOL Performed By: #### L 501.080 ####[facility] [address] [place], [address] Bedside Glucoseon 06-23-2024 FINGERSTICK GLU 129 mg/dL High [address] [place] [address] Comment on above: Result Comment: ADAL GEMENT OF PATIENT CARE PER NURSING PROTOCOL Performed By: #### L 501.080 ####[facility] [address] [place], [address] FINGERSTICK GLU 44 mg/dL Invalid Interpretation Code [address] [place] [address] Comment on above: Result Comment: [facility] GivenRepeat TestMANAGEMENT OF PATIENT CARE PER NURSING PROTOCOL Performed By: #### L 501.080 ####[facility] [address] [place], [address] FINGERSTICK GLU 87 mg/dL Normal [address] [place] [address] Comment on above: Result Comment: ADAL GEMENT OF PATIENT CARE PER NURSING PROTOCOL Performed By: #### L 501.080 ####[facility] [address] [place], [address] FINGERSTICK GLU 110 mg/dL High [address] [place] [address] Comment on above: Result Comment: ADAL GEMENT OF PATIENT CARE PER NURSING PROTOCOL Performed By: #### L 501.080 ####[facility] [address] [place], [address] FINGERSTICK GLU 119 mg/dL High [address] [place] [address] Comment on above: Result Comment: ADAL GEMENT OF PATIENT CARE PER NURSING PROTOCOL Performed By: #### L 501.080 ####[facility] [address] [place], [address] FINGERSTICK GLU 61 mg/dL Low [address] [place] [address] Comment on above: Result Comment: ADAL GEMENT OF PATIENT CARE PER NURSING PROTOCOL Performed By: #### L 501.080 ####[facility] [address] [place], [address] COVID 19 AG RAPID (JESSICA Head)on 06-23-2024 SARS-CoV-2 (COVID-19) RNA JAYLIN+probe Ql (Unsp spec) Normal [facility] Comment on above: Performed By: #### M 100.505 ####[facility] [address] [place], [address] Basic Metabolic Profile (BMP )on 06-22-2024 BUN/CRE 33.1 RATIO High 10-20 [facility] Comment on above: Performed By: #### L 500.2500 ####[facility] [address] [place], [address] CA,Total 9.0 mg/dL Normal 8.5-10.1 [facility] Comment on above: Performed By: #### L 500.2500 ####[facility] [address] [place], [address] Chloride [Moles/Vol] 107 mmol/L Normal 98-107 [facility] Comment on above: Performed By: #### L 500.2500 ####[facility] [address] [place], [address] CO2 [Moles/Vol] 26.0 mmol/L Normal 21.0-32.0 [facility] Comment on above: Performed By: #### L 500.2500 ####[facility] [address] [place], [address] Creatinine [Mass/Vol] 1.42 mg/dL High 0.55-1.02 [facility] Comment on above: Result Comment: The validity of the calculated GFR GFRAA in patients over70 years has not been determined. Clinical correlation isessential. Performed By: #### L 500.2500 ####[facility] [address] [place], [address] ECRCL 29.70 ml/min Normal [facility] Comment on above: Performed By: #### L 500.2500 ####[facility] [address] [place], [address] EST GFR - AA 46 mL/min Low >60 [facility] Comment on above: Result Comment: Afri can Egyptian GFR Calc Performed By: #### L 500.2500 ####[facility] [address] [place], [address] GAP 6 Normal 5-15 [facility] Comment on above: Performed By: #### L 500.2500 ####[facility] [address] [place], [address] GFR/1.73 sq M.predicted among non-blacks MDRD (S/P/Bld) [Vol rate/Area] 38 mL/min/{1.73_m2} Low >60 [facility] Comment on above: Result Comment: Non- GFR Calc Performed By: #### L 500.2500 ####[facility] [address] [place], [address] Glucose [Mass/Vol] 207 mg/dL High 74-106 [facility] Comment on above: Result Comment: Gluc ose result greater than or equal to 200 mg/dLsuggests DIABETES MELLITUS per A.D.A. criteria. Performed By: #### L 500.2500 ####[facility] [address] [place], [address] Potassium [Moles/Vol] 4.1 mmol/L Normal 3.5-5.1 [facility] Comment on above: Performed By: #### L 500.2500 ####[facility] [address] [place], [address] Sodium [Moles/Vol] 139 mmol/L Normal 136-145 [facility] Comment on above: Performed By: #### L 500.2500 ####[facility] [address] [place], [address] Urea nitrogen [Mass/Vol] 47 mg/dL High 7-18 [facility] Comment on above: Performed By: #### L 500.2500 ####[facility] [address] [place], [address] BUN Normal 7-18 [facility] Comment on above: Result Comment: Canc elled via OM: Order cancelled - Patient discharged Performed By: #### L 100.0100, L500.2500 ####[facility] [address] [place], [address] BUN/CRE Normal 10-20 [facility] Comment on above: Result Comment: Canc elled via OM: Order cancelled - Patient discharged Performed By: #### L 100.0100, L500.2500 ####[facility] [address] [place], [address] CA,Total Normal 8.5-10.1 [facility] Comment on above: Result Comment: Canc elled via OM: Order cancelled - Patient discharged Performed By: #### L 100.0100, L500.2500 ####[facility] [address] [place], [address] CL Normal 98-107 [facility] Comment on above: Result Comment: Canc elled via OM: Order cancelled - Patient discharged Performed By: #### L 100.0100, L500.2500 ####[facility] [address] [place], [address] CO2 Normal 21.0-32.0 [facility] Comment on above: Result Comment: Canc elled via OM: Order cancelled - Patient discharged Performed By: #### L 100.0100, L500.2500 ####[facility] [address] [place], [address] CREAT,SERUM Normal 0.55-1.02 [facility] Comment on above: Result Comment: Canc elled via OM: Order cancelled - Patient discharged Performed By: #### L 100.0100, L500.2500 ####[facility] [address] [place], [address] EST GFR Normal >60 [facility] Comment on above: Result Comment: Canc elled via OM: Order cancelled - Patient discharged Performed By: #### L 100.0100, L500.2500 ####[facility] [address] [place], [address] EST GFR - AA Normal >60 [facility] Comment on above: Result Comment: Canc elled via OM: Order cancelled - Patient discharged Performed By: #### L 100.0100, L500.2500 ####[facility] [address] [place], [address] GAP Normal 5-15 [facility] Comment on above: Result Comment: Canc elled via OM: Order cancelled - Patient discharged Performed By: #### L 100.0100, L500.2500 ####[facility] [address] [place], [address] GLU Normal 74-106 [facility] Comment on above: Result Comment: Canc elled via OM: Order cancelled - Patient discharged Performed By: #### L 100.0100, L500.2500 ####[facility] [address] [place], [address] Potassium Normal 3.5-5.1 [facility] Comment on above: Result Comment: Canc elled via OM: Order cancelled - Patient discharged Performed By: #### L 100.0100, L500.2500 ####[facility] [address] [place], [address] Basic Metabolic Profile (BMP) Normal 136-145 [facility] Comment on above: Result Comment: Canc elled via OM: Order cancelled - Patient discharged Performed By: #### L 100.0100, L500.2500 ####[facility] [address] [place], [address] Bedside Glucoseon 06-22-2024 FINGERSTICK GLU 102 mg/dL Normal 74-106 [facility] Comment on above: Result Comment: ADAL GEMENT OF PATIENT CARE PER NURSING PROTOCOL Performed By: #### L 501.080 ####[facility] [address] [place], [address] FINGERSTICK GLU 126 mg/dL High 74-106 [facility] Comment on above: Result Comment: ADAL GEMENT OF PATIENT CARE PER NURSING PROTOCOL Performed By: #### L 501.080 ####[facility] [address] [place], [address] FINGERSTICK GLU 168 mg/dL High 74-106 [facility] Comment on above: Result Comment: ADAL GEMENT OF PATIENT CARE PER NURSING PROTOCOL Performed By: #### L 501.080 ####[facility] [address] [place], [address] FINGERSTICK GLU 196 mg/dL High 74-106 [facility] Comment on above: Result Comment: ADAL GEMENT OF PATIENT CARE PER NURSING PROTOCOL Performed By: #### L 501.080 ####[facility] [address] [place], [address] FINGERSTICK GLU 190 mg/dL High 74-106 [facility] Comment on above: Result Comment: ADAL GEMENT OF PATIENT CARE PER NURSING PROTOCOL Performed By: #### L 501.080 ####[facility] [address] [place], [address] FINGERSTICK GLU 173 mg/dL High -106 [facility] Comment on above: Result Comment: ADAL GEMENT OF PATIENT CARE PER NURSING PROTOCOL Performed By: #### L 501.080 ####[facility] [address] [place], [address] CBC W/Diff, Automatedon 12-0 -2023 Absolute Neut Normal 2.0-7.7 [facility] Comment on above: Result Comment: Canc elled via OM: Order cancelled - Patient discharged Performed By: #### L 100.0100, L500.2500 ####[facility] [address] [place], [address] HCT Normal 37-47 [facility] Comment on above: Result Comment: Canc elled via OM: Order cancelled - Patient discharged Performed By: #### L 100.0100, L500.2500 ####[facility] [address] [place], [address] HGB Normal 12.0-15.0 [facility] Comment on above: Result Comment: Canc elled via OM: Order cancelled - Patient discharged Performed By: #### L 100.0100, L500.2500 ####[facility] [address] [place], [address] MCH Normal 27.0-32.0 [facility] Comment on above: Result Comment: Canc elled via OM: Order cancelled - Patient discharged Performed By: #### L 100.0100, L500.2500 ####[facility] [address] [place], [address] MCHC Normal 32-36 [facility] Comment on above: Result Comment: Canc elled via OM: Order cancelled - Patient discharged Performed By: #### L 100.0100, L500.2500 ####[facility] [address] [place], [address] MCV Normal 81-99 [facility] Comment on above: Result Comment: Canc elled via OM: Order cancelled - Patient discharged Performed By: #### L 100.0100, L500.2500 ####[facility] [address] [place], [address] NEUT% Normal 47-70 [facility] Comment on above: Result Comment: Canc elled via OM: Order cancelled - Patient discharged Performed By: #### L 100.0100, L500.2500 ####[facility] [address] [place], [address] PLT Normal 150-450 [facility] Comment on above: Result Comment: Canc elled via OM: Order cancelled - Patient discharged Performed By: #### L 100.0100, L500.2500 ####[facility] [address] [place], [address] RBC Normal 4.2-5.4 [facility] Comment on above: Result Comment: Canc elled via OM: Order cancelled - Patient discharged Performed By: #### L 100.0100, L500.2500 ####[facility] [address] [place], [address] RDW CV Normal 11.6-14.6 [facility] Comment on above: Result Comment: Canc elled via OM: Order cancelled - Patient discharged Performed By: #### L 100.0100, L500.2500 ####[facility] [address] [place], [address] RDW SD Normal 35.1-43.9 [facility] Comment on above: Result Comment: Canc elled via OM: Order cancelled - Patient discharged Performed By: #### L 100.0100, L500.2500 ####[facility] [address] [place], [address] WBC Normal 4.4-11.0 [facility] Comment on above: Result Comment: Canc elled via OM: Order cancelled - Patient discharged Performed By: #### L 100.0100, L500.2500 ####[facility] [address] [place], [address] Basic Metabolic Profile (BMP )on 06-21-2024 BUN/CRE 37.0 RATIO High 10-20 [facility] Comment on above: Performed By: #### L 100.0100, L500.2500 ####[facility] [address] [place], [address] CA,Total 9.3 mg/dL Normal 8.5-10.1 [facility] Comment on above: Performed By: #### L 100.0100, L500.2500 ####[facility] [address] [place], [address] Chloride [Moles/Vol] 107 mmol/L Normal 98-107 [facility] Comment on above: Performed By: #### L 100.0100, L500.2500 ####[facility] [address] [place], [address] CO2 [Moles/Vol] 24.0 mmol/L Normal 21.0-32.0 [facility] Comment on above: Performed By: #### L 100.0100, L500.2500 ####[facility] [address] [place], [address] Creatinine [Mass/Vol] 0.95 mg/dL Normal 0.55-1.02 [facility] Comment on above: Result Comment: The validity of the calculated GFR GFRAA in patients over70 years has not been determined. Clinical correlation isessential. Performed By: #### L 100.0100, L500.2500 ####[facility] [address] [place], [address] ECRCL 44.39 ml/min Normal [facility] Comment on above: Performed By: #### L 100.0100, L500.2500 ####[facility] [address] [place], [address] EST GFR - AA 74 mL/min Normal >60 [facility] Comment on above: Result Comment: Afri can Egyptian GFR Calc Performed By: #### L 100.0100, L500.2500 ####[facility] [address] [place], [address] GAP 7 Normal 5-15 [facility] Comment on above: Performed By: #### L 100.0100, L500.2500 ####[facility] [address] [place], [address] GFR/1.73 sq M.predicted among non-blacks MDRD (S/P/Bld) [Vol rate/Area] 61 mL/min/{1.73_m2} Normal >60 [facility] Comment on above: Result Comment: Non- GFR Calc Performed By: #### L 100.0100, L500.2500 ####[facility] [address] [place], [address] Glucose [Mass/Vol] 336 mg/dL High 74-106 [facility] Comment on above: Result Comment: Gluc ose result greater than or equal to 200 mg/dLsuggests DIABETES MELLITUS per A.D.A. criteria. Performed By: #### L 100.0100, L500.2500 ####[facility] [address] [place], [address] Potassium [Moles/Vol] 3.4 mmol/L Low 3.5-5.1 [facility] Comment on above: Performed By: #### L 100.0100, L500.2500 ####[facility] [address] [place], [address] Sodium [Moles/Vol] 138 mmol/L Normal 136-145 [facility] Comment on above: Performed By: #### L 100.0100, L500.2500 ####[facility] [address] [place], [address] Urea nitrogen [Mass/Vol] 35 mg/dL High 7-18 [facility] Comment on above: Performed By: #### L 100.0100, L500.2500 ####[facility] [address] [place], [address] BUN Normal 7-18 [facility] Comment on above: Result Comment: Canc elled via OM: Order cancelled - Patient discharged Performed By: #### L 100.0100, L500.2500 ####[facility] [address], [address] BUN/CRE Normal 10-20 [facility] Comment on above: Result Comment: Canc elled via OM: Order cancelled - Patient discharged Performed By: #### L 100.0100, L500.2500 ####[facility] [address] [place], [address] CA,Total Normal 8.5-10.1 [facility] Comment on above: Result Comment: Canc elled via OM: Order cancelled - Patient discharged Performed By: #### L 100.0100, L500.2500 ####[facility] [address] [place], [address] CL Normal 98-107 [facility] Comment on above: Result Comment: Canc elled via OM: Order cancelled - Patient discharged Performed By: #### L 100.0100, L500.2500 ####[facility] [address] [place], [address] CO2 Normal 21.0-32.0 [facility] Comment on above: Result Comment: Canc elled via OM: Order cancelled - Patient discharged Performed By: #### L 100.0100, L500.2500 ####[facility] [address] [place], [address] CREAT,SERUM Normal 0.55-1.02 [facility] Comment on above: Result Comment: Canc elled via OM: Order cancelled - Patient discharged Performed By: #### L 100.0100, L500.2500 ####[facility] [address] [place], [address] EST GFR Normal >60 [facility] Comment on above: Result Comment: Canc elled via OM: Order cancelled - Patient discharged Performed By: #### L 100.0100, L500.2500 ####[facility] [address] [place], [address] EST GFR - AA Normal >60 [facility] Comment on above: Result Comment: Canc elled via OM: Order cancelled - Patient discharged Performed By: #### L 100.0100, L500.2500 ####[facility] [address] [place], [address] GAP Normal 5-15 [facility] Comment on above: Result Comment: Canc elled via OM: Order cancelled - Patient discharged Performed By: #### L 100.0100, L500.2500 ####[facility] [address] [place], [address] GLU Normal 74-106 [facility] Comment on above: Result Comment: Canc elled via OM: Order cancelled - Patient discharged Performed By: #### L 100.0100, L500.2500 ####[facility] [address] [place], [address] Potassium Normal 3.5-5.1 [facility] Comment on above: Result Comment: Canc elled via OM: Order cancelled - Patient discharged Performed By: #### L 100.0100, L500.2500 ####[facility] [address] [place], [address] Basic Metabolic Profile (BMP) Normal 136-145 [facility] Comment on above: Result Comment: Canc elled via OM: Order cancelled - Patient discharged Performed By: #### L 100.0100, L500.2500 ####[facility] [address] [place], [address] Bedside Glucoseon 06-21-2024 FINGERSTICK GLU 84 mg/dL Normal 74-106 [facility] Comment on above: Result Comment: ADAL GEMENT OF PATIENT CARE PER NURSING PROTOCOL Performed By: #### L 501.080 ####[facility] [address] [place], [address] FINGERSTICK GLU 205 mg/dL High [address] [place] [address] Comment on above: Result Comment: ADAL GEMENT OF PATIENT CARE PER NURSING PROTOCOL Performed By: #### L 501.080 ####[facility] [address] [place], [address] FINGERSTICK GLU 436 mg/dL High [address] [place] [address] Comment on above: Result Comment: ADAL GEMENT OF PATIENT CARE PER NURSING PROTOCOL Performed By: #### L 501.080 ####[facility] [address] [place], [address] FINGERSTICK GLU 464 mg/dL Invalid Interpretation Code [address] [place] [address] Comment on above: Result Comment: Dr Prisca griffith FollowedMANAGEMENT OF PATIENT CARE PER NURSING PROTOCOL Performed By: #### L 501.080 ####[facility] [address] [place], [address] FINGERSTICK GLU 303 mg/dL High [address] [place] [address] Comment on above: Result Comment: ADAL GEMENT OF PATIENT CARE PER NURSING PROTOCOL Performed By: #### L 501.080 ####[facility] [address] [place], [address] CBC W/Diff, Automatedon 12-0 Absolute Lymph 1.03 X10 3/uL Normal 0.83-4.51 [facility] Comment on above: Performed By: #### L 100.0100, L500.2500 ####[facility] [address] [place], [address] Absolute Neut 3.7 X10 3/uL Normal 2.0-7.7 [facility] Comment on above: Performed By: #### L 100.0100, L500.2500 ####[facility] [address] [place], [address] Basophils/100 WBC (Bld) 0.5 % Normal 0-1 [facility] Comment on above: Performed By: #### L 100.0100, L500.2500 ####[facility] [address] [place], [address] Eosinophils/100 WBC (Bld) 4.3 % Normal 0-5 [facility] Comment on above: Performed By: #### L 100.0100, L500.2500 ####[facility] [address] [place], [address] Erythrocyte distribution width (RBC) [Ratio] 16.3 % High 11.6-14.6 [facility] Comment on above: Performed By: #### L 100.0100, L500.2500 ####[facility] [address] [place], [address] Hematocrit (Bld) [Volume fraction] 37.0 % Normal 37-47 [facility] Comment on above: Performed By: #### L 100.0100, L500.2500 ####[facility] [address] [place], [address] Hemoglobin (Bld) [Mass/Vol] 11.3 g/dL Low 12.0-15.0 [facility] Comment on above: Performed By: #### L 100.0100, L500.2500 ####[facility] [address] [place], [address] IG% 0.400 Normal 0.0-0.9 [facility] Comment on above: Result Comment: IG% - Immature Granulocytes (promyelocytes, myelocytes andmetamyelocytes) > 1% indicates that a LEFT SHIFT is Present. Performed By: #### L 100.0100, L500.2500 ####[facility] [address], [address] Lymphocytes/100 WBC (Bld) 18.6 % Low 19-41 [facility] Comment on above: Performed By: #### L 100.0100, L500.2500 ####[facility] [address] [place], [address] MCH (RBC) [Entitic mass] 25.6 pg Low 27.0-32.0 [facility] Comment on above: Performed By: #### L 100.0100, L500.2500 ####[facility] [address] [place], [address] MCHC (RBC) [Mass/Vol] 30.5 g/dL Low 32-36 [facility] Comment on above: Performed By: #### L 100.0100, L500.2500 ####[facility] [address] [place], [address] MCV (RBC) [Entitic vol] 83.9 fL Normal 81-99 [facility] Comment on above: Performed By: #### L 100.0100, L500.2500 ####[facility] [address] [place], [address] Monocytes/100 WBC (Bld) 8.5 % Normal 0-10 [facility] Comment on above: Performed By: #### L 100.0100, L500.2500 ####[facility] [address] [place], [address] Neutrophils/100 WBC (Bld) 67.7 % Normal 47-70 [facility] Comment on above: Performed By: #### L 100.0100, L500.2500 ####[facility] [address] [place], [address] Nucleated RBC (Bld) [#/Vol] 0 10*3/uL Normal 0-5 [facility] Comment on above: Performed By: #### L 100.0100, L500.2500 ####[facility] [address] [place], [address] Platelet mean volume (Bld) [Entitic vol] 10.9 fL Normal 6.2-12.0 [facility] Comment on above: Performed By: #### L 100.0100, L500.2500 ####[facility] [address] [place], [address] Platelets (Bld) [#/Vol] 224 10*3/uL Normal 150-450 [facility] Comment on above: Performed By: #### L 100.0100, L500.2500 ####[facility] [address] [place], [address] RBC (Bld) [#/Vol] 4.41 10*6/uL Normal 4.2-5.4 [facility] Comment on above: Performed By: #### L 100.0100, L500.2500 ####[facility] [address] [place], [address] RDW SD 50.3 fl High 35.1-43.9 [facility] Comment on above: Performed By: #### L 100.0100, L500.2500 ####[facility] [address] [place], [address] WBC (Bld) [#/Vol] 5.5 10*3/uL Normal 4.4-11.0 [facility] Comment on above: Performed By: #### L 100.0100, L500.2500 ####[facility] [address] [place], [address] Absolute Neut Normal 2.0-7.7 [facility] Comment on above: Result Comment: Canc elled via OM: Order cancelled - Patient discharged Performed By: #### L 100.0100, L500.2500 ####[facility] [address] [place], [address] HCT Normal 37-47 [facility] Comment on above: Result Comment: Canc elled via OM: Order cancelled - Patient discharged Performed By: #### L 100.0100, L500.2500 ####[facility] [address] [place], [address] HGB Normal 12.0-15.0 [facility] Comment on above: Result Comment: Canc elled via OM: Order cancelled - Patient discharged Performed By: #### L 100.0100, L500.2500 ####[facility] [address] [place], [address] MCH Normal 27.0-32.0 [facility] Comment on above: Result Comment: Canc elled via OM: Order cancelled - Patient discharged Performed By: #### L 100.0100, L500.2500 ####[facility] [address] [place], [address] MCHC Normal 32-36 [facility] Comment on above: Result Comment: Canc elled via OM: Order cancelled - Patient discharged Performed By: #### L 100.0100, L500.2500 ####[facility] [address] [place], [address] MCV Normal 81-99 [facility] Comment on above: Result Comment: Canc elled via OM: Order cancelled - Patient discharged Performed By: #### L 100.0100, L500.2500 ####[facility] [address] [place], [address] NEUT% Normal 47-70 [facility] Comment on above: Result Comment: Canc elled via OM: Order cancelled - Patient discharged Performed By: #### L 100.0100, L500.2500 ####[facility] [address] [place], [address] PLT Normal 150-450 [facility] Comment on above: Result Comment: Canc elled via OM: Order cancelled - Patient discharged Performed By: #### L 100.0100, L500.2500 ####[facility] [address] [place], [address] RBC Normal 4.2-5.4 [facility] Comment on above: Result Comment: Canc elled via OM: Order cancelled - Patient discharged Performed By: #### L 100.0100, L500.2500 ####[facility] [address] [place], [address] RDW CV Normal 11.6-14.6 [facility] Comment on above: Result Comment: Canc elled via OM: Order cancelled - Patient discharged Performed By: #### L 100.0100, L500.2500 ####[facility] [address] [place], [address] RDW SD Normal 35.1-43.9 [facility] Comment on above: Result Comment: Canc elled via OM: Order cancelled - Patient discharged Performed By: #### L 100.0100, L500.2500 ####[facility] [address] [place], [address] WBC Normal 4.4-11.0 [facility] Comment on above: Result Comment: Canc elled via OM: Order cancelled - Patient discharged Performed By: #### L 100.0100, L500.2500 ####[facility] [address] [place], [address] Basic Metabolic Profile (BMP )on 06-20-2024 BUN/CRE 38.0 RATIO High 10-20 [facility] Comment on above: Performed By: #### L 500.2500, L100.0100 ####[facility] [address] [place], [address] CA,Total 9.4 mg/dL Normal 8.5-10.1 [facility] Comment on above: Performed By: #### L 500.2500, L100.0100 ####[facility] [address] [place], [address] Chloride [Moles/Vol] 107 mmol/L Normal 98-107 [facility] Comment on above: Performed By: #### L 500.2500, L100.0100 ####[facility] [address] [place], [address] CO2 [Moles/Vol] 24.0 mmol/L Normal 21.0-32.0 [facility] Comment on above: Performed By: #### L 500.2500, L100.0100 ####[facility] [address] [place], [address] Creatinine [Mass/Vol] 1.21 mg/dL High 0.55-1.02 [facility] Comment on above: Result Comment: The validity of the calculated GFR GFRAA in patients over70 years has not been determined. Clinical correlation isessential. Performed By: #### L 500.2500, L100.0100 ####[facility] [address] [place], [address] ECRCL 37.86 ml/min Normal [facility] Comment on above: Performed By: #### L 500.2500, L100.0100 ####[facility] [address] [place], [address] EST GFR - AA 56 mL/min Low >60 [facility] Comment on above: Result Comment: Afri can Egyptian GFR Calc Performed By: #### L 500.2500, L100.0100 ####[facility] [address] [place], [address] GAP 8 Normal 5-15 [facility] Comment on above: Performed By: #### L 500.2500, L100.0100 ####[facility] [address] [place], [address] GFR/1.73 sq M.predicted among non-blacks MDRD (S/P/Bld) [Vol rate/Area] 46 mL/min/{1.73_m2} Low >60 [facility] Comment on above: Result Comment: Non- GFR Calc Performed By: #### L 500.2500, L100.0100 ####[facility] [address] [place], [address] Glucose [Mass/Vol] 228 mg/dL High 74-106 [facility] Comment on above: Result Comment: Gluc ose result greater than or equal to 200 mg/dLsuggests DIABETES MELLITUS per A.D.A. criteria. Performed By: #### L 500.2500, L100.0100 ####[facility] [address] [place], [address] Potassium [Moles/Vol] 3.1 mmol/L Low 3.5-5.1 [facility] Comment on above: Performed By: #### L 500.2500, L100.0100 ####[facility] [address] [place], [address] Sodium [Moles/Vol] 138 mmol/L Normal 136-145 [facility] Comment on above: Performed By: #### L 500.2500, L100.0100 ####[facility] [address] [place], [address] Urea nitrogen [Mass/Vol] 46 mg/dL High 7-18 [facility] Comment on above: Performed By: #### L 500.2500, L100.0100 ####[facility] [address] [place], [address] Bedside Glucoseon 06-20-2024 FINGERSTICK GLU 270 mg/dL High 74-106 [facility] Comment on above: Result Comment: ADAL GOODEN OF PATIENT CARE PER NURSING PROTOCOL Performed By: #### L 501.080 ####[facility] [address] [place], [address] FINGERSTICK GLU 328 mg/dL High 74-106 [facility] Comment on above: Result Comment: ADAL GEMENT OF PATIENT CARE PER NURSING PROTOCOL Performed By: #### L 501.080 ####[facility] [address] [place], [address] FINGERSTICK GLU 350 mg/dL High 74-106 [facility] Comment on above: Result Comment: ADAL GEMENT OF PATIENT CARE PER NURSING PROTOCOL Performed By: #### L 501.080 ####[facility] [address] [place], [address] FINGERSTICK GLU 230 mg/dL High 74-106 [facility] Comment on above: Result Comment: ADAL GEMENT OF PATIENT CARE PER NURSING PROTOCOL Performed By: #### L 501.080 ####[facility] [address] [place], [address] CBC W/Diff, Automatedon 12-0 6-4 Absolute Lymph 1.50 X10 3/uL Normal 0.83-4.51 [facility] Comment on above: Performed By: #### L 500.2500, L100.0100 ####[facility] [address] [place], [address] Absolute Neut 4.1 X10 3/uL Normal 2.0-7.7 [facility] Comment on above: Performed By: #### L 500.2500, L100.0100 ####[facility] [address] [place], [address] Basophils/100 WBC (Bld) 0.6 % Normal 0-1 [facility] Comment on above: Performed By: #### L 500.2500, L100.0100 ####[facility] [address] [place], [address] Eosinophils/100 WBC (Bld) 3.1 % Normal 0-5 [facility] Comment on above: Performed By: #### L 500.2500, L100.0100 ####[facility] [address] [place], [address] Erythrocyte distribution width (RBC) [Ratio] 16.7 % High 11.6-14.6 [facility] Comment on above: Performed By: #### L 500.2500, L100.0100 ####[facility] [address] [place], [address] Hematocrit (Bld) [Volume fraction] 39.3 % Normal 37-47 [facility] Comment on above: Performed By: #### L 500.2500, L100.0100 ####[facility] [address] [place], [address] Hemoglobin (Bld) [Mass/Vol] 12.1 g/dL Normal 12.0-15.0 [facility] Comment on above: Performed By: #### L 500.2500, L100.0100 ####[facility] [address] [place], [address] IG% 0.500 Normal 0.0-0.9 [facility] Comment on above: Result Comment: IG% - Immature Granulocytes (promyelocytes, myelocytes andmetamyelocytes) > 1% indicates that a LEFT SHIFT is Present. Performed By: #### L 500.2500, L100.0100 ####[facility] [address] [place], [address] Lymphocytes/100 WBC (Bld) 23.1 % Normal 19-41 [facility] Comment on above: Performed By: #### L 500.2500, L100.0100 ####[facility] [address] [place], [address] MCH (RBC) [Entitic mass] 26.2 pg Low 27.0-32.0 [facility] Comment on above: Performed By: #### L 500.2500, L100.0100 ####[facility] [address] [place], [address] MCHC (RBC) [Mass/Vol] 30.8 g/dL Low 32-36 [facility] Comment on above: Performed By: #### L 500.2500, L100.0100 ####[facility] [address] [place], [address] MCV (RBC) [Entitic vol] 85.2 fL Normal 81-99 [facility] Comment on above: Performed By: #### L 500.2500, L100.0100 ####[facility] [address] [place], [address] Monocytes/100 WBC (Bld) 9.0 % Normal 0-10 [facility] Comment on above: Performed By: #### L 500.2500, L100.0100 ####[facility] [address] [place], [address] Neutrophils/100 WBC (Bld) 63.7 % Normal 47-70 [facility] Comment on above: Performed By: #### L 500.2500, L100.0100 ####[facility] [address] [place], [address] Nucleated RBC (Bld) [#/Vol] 0 10*3/uL Normal 0-5 [facility] Comment on above: Performed By: #### L 500.2500, L100.0100 ####[facility] [address] [place], [address] Platelet mean volume (Bld) [Entitic vol] 10.9 fL Normal 6.2-12.0 [facility] Comment on above: Performed By: #### L 500.2500, L100.0100 ####[facility] [address] [place], [address] Platelets (Bld) [#/Vol] 196 10*3/uL Normal 150-450 [facility] Comment on above: Performed By: #### L 500.2500, L100.0100 ####[facility] [address] [place], [address] RBC (Bld) [#/Vol] 4.61 10*6/uL Normal 4.2-5.4 [facility] Comment on above: Performed By: #### L 500.2500, L100.0100 ####[facility] [address] [place], [address] RDW SD 51.9 fl High 35.1-43.9 [facility] Comment on above: Performed By: #### L 500.2500, L100.0100 ####[facility] [address] [place], [address] WBC (Bld) [#/Vol] 6.5 10*3/uL Normal 4.4-11.0 [facility] Comment on above: Performed By: #### L 500.2500, L100.0100 ####[facility] [address] [place], [address] Urine Cultureon 06-20-2024 URC Normal [facility] Comment on above: Performed By: #### M 100.2200 ####[facility] [address] [place], [address] Basic Metabolic Profile (BMP )on 06-19-2024 BUN/CRE 27.9 RATIO High 10-20 [facility] Comment on above: Performed By: #### L 500.2500, L501.5200, L100.0100, L501.2300 ####[facility] [address] [place], [address] CA,Total 9.6 mg/dL Normal 8.5-10.1 [facility] Comment on above: Performed By: #### L 500.2500, L501.5200, L100.0100, L501.2300 ####[facility] [address] [place], [address] Chloride [Moles/Vol] 108 mmol/L High 98-107 [facility] Comment on above: Performed By: #### L 500.2500, L501.5200, L100.0100, L501.2300 ####[facility] [address] [place], [address] CO2 [Moles/Vol] 22.0 mmol/L Normal 21.0-32.0 [facility] Comment on above: Performed By: #### L 500.2500, L501.5200, L100.0100, L501.2300 ####[facility] [address] [place], [address] Creatinine [Mass/Vol] 1.54 mg/dL High 0.55-1.02 [facility] Comment on above: Result Comment: The validity of the calculated GFR GFRAA in patients over70 years has not been determined. Clinical correlation isessential. Performed By: #### L 500.2500, L501.5200, L100.0100, L501.2300 ####[facility] [address] [place], [address] ECRCL 29.75 ml/min Normal [facility] Comment on above: Performed By: #### L 500.2500, L501.5200, L100.0100, L501.2300 ####[facility] [address] [place], [address] EST GFR - AA 42 mL/min Low >60 [facility] Comment on above: Result Comment: Afri can Egyptian GFR Calc Performed By: #### L 500.2500, L501.5200, L100.0100, L501.2300 ####[facility] [address] [place], [address] GAP 10 Normal 5-15 [facility] Comment on above: Performed By: #### L 500.2500, L501.5200, L100.0100, L501.2300 ####[facility] [address] [place], [address] GFR/1.73 sq M.predicted among non-blacks MDRD (S/P/Bld) [Vol rate/Area] 35 mL/min/{1.73_m2} Low >60 [facility] Comment on above: Result Comment: Non- GFR Calc Performed By: #### L 500.2500, L501.5200, L100.0100, L501.2300 ####[facility] [address] [place], [address] Glucose [Mass/Vol] 227 mg/dL High 74-106 [facility] Comment on above: Result Comment: Gluc ose result greater than or equal to 200 mg/dLsuggests DIABETES MELLITUS per A.D.A. criteria. Performed By: #### L 500.2500, L501.5200, L100.0100, L501.2300 ####[facility] [address] [place], [address] Potassium [Moles/Vol] 3.3 mmol/L Low 3.5-5.1 [facility] Comment on above: Performed By: #### L 500.2500, L501.5200, L100.0100, L501.2300 ####[facility] [address] [place], [address] Sodium [Moles/Vol] 139 mmol/L Normal 136-145 [facility] Comment on above: Performed By: #### L 500.2500, L501.5200, L100.0100, L501.2300 ####[facility] [address] [place], [address] Urea nitrogen [Mass/Vol] 43 mg/dL High 7-18 [facility] Comment on above: Performed By: #### L 500.2500, L501.5200, L100.0100, L501.2300 ####[facility] [address] [place], [address] Bedside Glucoseon 06-19-2024 FINGERSTICK GLU 241 mg/dL High 74-106 [facility] Comment on above: Result Comment: ADAL GEMENT OF PATIENT CARE PER NURSING PROTOCOL Performed By: #### L 501.080 ####[facility] [address] [place], [address] FINGERSTICK GLU 233 mg/dL High [facility]106 [facility] Comment on above: Result Comment: ADAL GEMENT OF PATIENT CARE PER NURSING PROTOCOL Performed By: #### L 501.080 ####[facility] [address] [place], [address] FINGERSTICK GLU 281 mg/dL High [facility]106 [facility] Comment on above: Result Comment: ADAL GEMENT OF PATIENT CARE PER NURSING PROTOCOL Performed By: #### L 501.080 ####[facility] [address] [place], [address] FINGERSTICK GLU 255 mg/dL High [facility]106 [facility] Comment on above: Result Comment: ADAL GEMENT OF PATIENT CARE PER NURSING PROTOCOL Performed By: #### L 501.080 ####[facility] [address] [place], [address] CBC W/Diff, Automatedon Absolute Lymph 1.50 X10 3/uL Normal 0.83-4.51 [facility] Comment on above: Performed By: #### L 500.2500, L501.5200, L100.0100, L501.2300 ####[facility] [address] [place], [address] Absolute Neut 7.0 X10 3/uL Normal 2.0-7.7 [facility] Comment on above: Performed By: #### L 500.2500, L501.5200, L100.0100, L501.2300 ####[facility] [address] [place], [address] Basophils/100 WBC (Bld) 0.4 % Normal 0-1 [facility] Comment on above: Performed By: #### L 500.2500, L501.5200, L100.0100, L501.2300 ####[facility] [address] [place], [address] Eosinophils/100 WBC (Bld) 0.3 % Normal 0-5 [facility] Comment on above: Performed By: #### L 500.2500, L501.5200, L100.0100, L501.2300 ####[facility] [address] [place], [address] Erythrocyte distribution width (RBC) [Ratio] 16.7 % High 11.6-14.6 [facility] Comment on above: Performed By: #### L 500.2500, L501.5200, L100.0100, L501.2300 ####[facility] [address] [place], [address] Hematocrit (Bld) [Volume fraction] 37.9 % Normal 37-47 [facility] Comment on above: Performed By: #### L 500.2500, L501.5200, L100.0100, L501.2300 ####[facility] [address] [place], [address] Hemoglobin (Bld) [Mass/Vol] 11.9 g/dL Low 12.0-15.0 [facility] Comment on above: Performed By: #### L 500.2500, L501.5200, L100.0100, L501.2300 ####[facility] [address] [place], [address] IG% 0.400 Normal 0.0-0.9 [facility] Comment on above: Result Comment: IG% - Immature Granulocytes (promyelocytes, myelocytes andmetamyelocytes) > 1% indicates that a LEFT SHIFT is Present. Performed By: #### L 500.2500, L501.5200, L100.0100, L501.2300 ####[facility] [address] [place], [address] Lymphocytes/100 WBC (Bld) 16.0 % Low 19-41 [facility] Comment on above: Performed By: #### L 500.2500, L501.5200, L100.0100, L501.2300 ####[facility] [address] [place], [address] MCH (RBC) [Entitic mass] 26.6 pg Low 27.0-32.0 [facility] Comment on above: Performed By: #### L 500.2500, L501.5200, L100.0100, L501.2300 ####[facility] [address] [place], [address] MCHC (RBC) [Mass/Vol] 31.4 g/dL Low 32-36 [facility] Comment on above: Performed By: #### L 500.2500, L501.5200, L100.0100, L501.2300 ####[facility] [address] [place], [address] MCV (RBC) [Entitic vol] 84.8 fL Normal 81-99 [facility] Comment on above: Performed By: #### L 500.2500, L501.5200, L100.0100, L501.2300 ####[facility] [address] [place], [address] Monocytes/100 WBC (Bld) 8.2 % Normal 0-10 [facility] Comment on above: Performed By: #### L 500.2500, L501.5200, L100.0100, L501.2300 ####[facility] [address] [place], [address] Neutrophils/100 WBC (Bld) 74.7 % High 47-70 [facility] Comment on above: Performed By: #### L 500.2500, L501.5200, L100.0100, L501.2300 ####[facility] [address] [place], [address] Nucleated RBC (Bld) [#/Vol] 0 10*3/uL Normal 0-5 [facility] Comment on above: Performed By: #### L 500.2500, L501.5200, L100.0100, L501.2300 ####[facility] [address] [place], [address] Platelet mean volume (Bld) [Entitic vol] 10.7 fL Normal 6.2-12.0 [facility] Comment on above: Performed By: #### L 500.2500, L501.5200, L100.0100, L501.2300 ####[facility] [address] [place], [address] Platelets (Bld) [#/Vol] 217 10*3/uL Normal 150-450 [facility] Comment on above: Performed By: #### L 500.2500, L501.5200, L100.0100, L501.2300 ####[facility] [address] [place], [address] RBC (Bld) [#/Vol] 4.47 10*6/uL Normal 4.2-5.4 [facility] Comment on above: Performed By: #### L 500.2500, L501.5200, L100.0100, L501.2300 ####[facility] [address] [place], [address] RDW SD 52.4 fl High 35.1-43.9 [facility] Comment on above: Performed By: #### L 500.2500, L501.5200, L100.0100, L501.2300 ####[facility] [address] [place], [address] WBC (Bld) [#/Vol] 9.4 10*3/uL Normal 4.4-11.0 [facility] Comment on above: Performed By: #### L 500.2500, L501.5200, L100.0100, L501.2300 ####[facility] [address] [place], [address] Magnesiumon 06-19-2024 Magnesium [Mass/Vol] 2.0 mg/dL Normal 1.6-2.6 [facility] Comment on above: Performed By: #### L 500.2500, L501.5200, L100.0100, L501.2300 ####[facility] [address] [place], [address] Phosphoruson 06-19-2024 Phosphate [Mass/Vol] 2.4 mg/dL Low 2.5-4.9 [facility] Comment on above: Performed By: #### L 500.2500, L501.5200, L100.0100, L501.2300 ####[facility] [address] [place], [address] Bedside Glucoseon 06-18-2024 FINGERSTICK GLU 245 mg/dL High 74-106 [facility] Comment on above: Result Comment: ADAL GEMENT OF PATIENT CARE PER NURSING PROTOCOL Performed By: #### L 501.080 ####[facility] [address] [place], [address] FINGERSTICK GLU 309 mg/dL High 74-106 [facility] Comment on above: Result Comment: ADAL GEMENT OF PATIENT CARE PER NURSING PROTOCOL Performed By: #### L 501.080 ####[facility] [address] [place], [address] FINGERSTICK GLU 234 mg/dL High 74-106 [facility] Comment on above: Result Comment: ADAL GEMENT OF PATIENT CARE PER NURSING PROTOCOL Performed By: #### L 501.080 ####[facility] [address] [place], [address] FINGERSTICK GLU 408 mg/dL High 74-106 [facility] Comment on above: Result Comment: ADAL GEMENT OF PATIENT CARE PER NURSING PROTOCOL Performed By: #### L 501.080 ####[facility] [address] [place], [address] CBC W/Diff, Automatedon 12-0 -2023 Absolute Lymph 0.81 X10 3/uL Low 0.83-4.51 [facility] Comment on above: Performed By: #### L 500.4050, L100.0100, L501.9985, L501.9520, L501.2300 ####[facility] [address] [place], [address] Absolute Neut 13.1 X10 3/uL High 2.0-7.7 [facility] Comment on above: Performed By: #### L 500.4050, L100.0100, L501.9985, L501.9520, L501.2300 ####[facility] [address] [place], [address] Basophils/100 WBC (Bld) 0.2 % Normal 0-1 [facility] Comment on above: Performed By: #### L 500.4050, L100.0100, L501.9985, L501.9520, L501.2300 ####[facility] [address] [place], [address] Eosinophils/100 WBC (Bld) 0.0 % Normal 0-5 [facility] Comment on above: Performed By: #### L 500.4050, L100.0100, L501.9985, L501.9520, L501.2300 ####[facility] [address] [place], [address] Erythrocyte distribution width (RBC) [Ratio] 16.4 % High 11.6-14.6 [facility] Comment on above: Performed By: #### L 500.4050, L100.0100, L501.9985, L501.9520, L501.2300 ####[facility] [address] [place], [address] Hematocrit (Bld) [Volume fraction] 41.4 % Normal 37-47 [facility] Comment on above: Performed By: #### L 500.4050, L100.0100, L501.9985, L501.9520, L501.2300 ####[facility] [address] [place], [address] Hemoglobin (Bld) [Mass/Vol] 12.8 g/dL Normal 12.0-15.0 [facility] Comment on above: Performed By: #### L 500.4050, L100.0100, L501.9985, L501.9520, L501.2300 ####[facility] [address] [place], [address] IG% 0.500 Normal 0.0-0.9 [facility] Comment on above: Result Comment: IG% - Immature Granulocytes (promyelocytes, myelocytes andmetamyelocytes) > 1% indicates that a LEFT SHIFT is Present. Performed By: #### L 500.4050, L100.0100, L501.9985, L501.9520, L501.2300 ####[facility] [address] [place], [address] Lymphocytes/100 WBC (Bld) 5.5 % Low 19-41 [facility] Comment on above: Performed By: #### L 500.4050, L100.0100, L501.9985, L501.9520, L501.2300 ####[facility] [address] [place], [address] MCH (RBC) [Entitic mass] 26.1 pg Low 27.0-32.0 [facility] Comment on above: Performed By: #### L 500.4050, L100.0100, L501.9985, L501.9520, L501.2300 ####[facility] [address] [place], [address] MCHC (RBC) [Mass/Vol] 30.9 g/dL Low 32-36 [facility] Comment on above: Performed By: #### L 500.4050, L100.0100, L501.9985, L501.9520, L501.2300 ####[facility] [address] [place], [address] MCV (RBC) [Entitic vol] 84.5 fL Normal 81-99 [facility] Comment on above: Performed By: #### L 500.4050, L100.0100, L501.9985, L501.9520, L501.2300 ####[facility] [address] [place], [address] Monocytes/100 WBC (Bld) 5.2 % Normal 0-10 [facility] Comment on above: Performed By: #### L 500.4050, L100.0100, L501.9985, L501.9520, L501.2300 ####[facility] [address] [place], [address] Neutrophils/100 WBC (Bld) 88.6 % High 47-70 [facility] Comment on above: Performed By: #### L 500.4050, L100.0100, L501.9985, L501.9520, L501.2300 ####[facility] [address] [place], [address] Nucleated RBC (Bld) [#/Vol] 0 10*3/uL Normal 0-5 [facility] Comment on above: Performed By: #### L 500.4050, L100.0100, L501.9985, L501.9520, L501.2300 ####[facility] [address] [place], [address] Platelet mean volume (Bld) [Entitic vol] 11.0 fL Normal 6.2-12.0 [facility] Comment on above: Performed By: #### L 500.4050, L100.0100, L501.9985, L501.9520, L501.2300 ####[facility] [address] [place], [address] Platelets (Bld) [#/Vol] 254 10*3/uL Normal 150-450 [facility] Comment on above: Performed By: #### L 500.4050, L100.0100, L501.9985, L501.9520, L501.2300 ####[facility] [address] [place], [address] RBC (Bld) [#/Vol] 4.90 10*6/uL Normal 4.2-5.4 [facility] Comment on above: Performed By: #### L 500.4050, L100.0100, L501.9985, L501.9520, L501.2300 ####[facility] [address] [place], [address] RDW SD 51.1 fl High 35.1-43.9 [facility] Comment on above: Performed By: #### L 500.4050, L100.0100, L501.9985, L501.9520, L501.2300 ####[facility] [address] [place], [address] WBC (Bld) [#/Vol] 14.8 10*3/uL High 4.4-11.0 [facility] Comment on above: Performed By: #### L 500.4050, L100.0100, L501.9985, L501.9520, L501.2300 ####[facility] [address] [place], [address] Comprehensive Metabolic Prof ilon 06-18-2024 Albumin [Mass/Vol] 3.4 g/dL Normal 3.2-5.0 [facility] Comment on above: Performed By: #### L 500.4050, L100.0100, L501.9985, L501.9520, L501.2300 ####[facility] [address] [place], [address] Albumin/Globulin [Mass ratio] 0.9 {ratio} Normal 0.9-2.4 [facility] Comment on above: Performed By: #### L 500.4050, L100.0100, L501.9985, L501.9520, L501.2300 ####[facility] [address] [place], [address] ALK P 128 U/L High 45-117 [facility] Comment on above: Performed By: #### L 500.4050, L100.0100, L501.9985, L501.9520, L501.2300 ####[facility] [address] [place], [address] ALT [Catalytic activity/Vol] 23 U/L Normal 13-56 [facility] Comment on above: Performed By: #### L 500.4050, L100.0100, L501.9985, L501.9520, L501.2300 ####[facility] [address] [place], [address] AST [Catalytic activity/Vol] 35 U/L Normal 15-37 [facility] Comment on above: Performed By: #### L 500.4050, L100.0100, L501.9985, L501.9520, L501.2300 ####[facility] [address] [place], [address] Bilirubin [Mass/Vol] 0.80 mg/dL Normal 0.20-1.00 [facility] Comment on above: Result Comment: For patients on eltrombopag therapy, use of Dimension [place] TBIL is not recommended. Performed By: #### L 500.4050, L100.0100, L501.9985, L501.9520, L501.2300 ####[facility] [address] [place], [address] BUN/CRE 23.2 RATIO High 10-20 [facility] Comment on above: Performed By: #### L 500.4050, L100.0100, L501.9985, L501.9520, L501.2300 ####[facility] [address] [place], [address] CA,Total 9.6 mg/dL Normal 8.5-10.1 [facility] Comment on above: Performed By: #### L 500.4050, L100.0100, L501.9985, L501.9520, L501.2300 ####[facility] [address] [place], [address] Chloride [Moles/Vol] 108 mmol/L High 98-107 [facility] Comment on above: Performed By: #### L 500.4050, L100.0100, L501.9985, L501.9520, L501.2300 ####[facility] [address] [place], [address] CO2 [Moles/Vol] 24.0 mmol/L Normal 21.0-32.0 [facility] Comment on above: Performed By: #### L 500.4050, L100.0100, L501.9985, L501.9520, L501.2300 ####[facility] [address] [place], [address] Creatinine [Mass/Vol] 1.25 mg/dL High 0.55-1.02 [facility] Comment on above: Result Comment: The validity of the calculated GFR GFRAA in patients over70 years has not been determined. Clinical correlation isessential. Performed By: #### L 500.4050, L100.0100, L501.9985, L501.9520, L501.2300 ####[facility] [address] [place], [address] ECRCL 36.68 ml/min Normal [facility] Comment on above: Performed By: #### L 500.4050, L100.0100, L501.9985, L501.9520, L501.2300 ####[facility] [address] [place], [address] EST GFR - AA 53 mL/min Low >60 [facility] Comment on above: Result Comment: Afri can Egyptian GFR Calc Performed By: #### L 500.4050, L100.0100, L501.9985, L501.9520, L501.2300 ####[facility] [address] [place], [address] GAP 8 Normal 5-15 [facility] Comment on above: Performed By: #### L 500.4050, L100.0100, L501.9985, L501.9520, L501.2300 ####[facility] [address] [place], [address] GFR/1.73 sq M.predicted among non-blacks MDRD (S/P/Bld) [Vol rate/Area] 44 mL/min/{1.73_m2} Low >60 [facility] Comment on above: Result Comment: Non- GFR Calc Performed By: #### L 500.4050, L100.0100, L501.9985, L501.9520, L501.2300 ####[facility] [address] [place], [address] Globulin (S) [Mass/Vol] 3.6 g/dL Normal 2.2-4.2 [facility] Comment on above: Performed By: #### L 500.4050, L100.0100, L501.9985, L501.9520, L501.2300 ####[facility] [address] [place], [address] Glucose [Mass/Vol] 355 mg/dL High 74-106 [facility] Comment on above: Result Comment: Gluc ose result greater than or equal to 200 mg/dLsuggests DIABETES MELLITUS per A.D.A. criteria. Performed By: #### L 500.4050, L100.0100, L501.9985, L501.9520, L501.2300 ####[facility] [address] [place], [address] Potassium [Moles/Vol] 3.5 mmol/L Normal 3.5-5.1 [facility] Comment on above: Performed By: #### L 500.4050, L100.0100, L501.9985, L501.9520, L501.2300 ####[facility] [address] [place], [address] Sodium [Moles/Vol] 140 mmol/L Normal 136-145 [facility] Comment on above: Performed By: #### L 500.4050, L100.0100, L501.9985, L501.9520, L501.2300 ####[facility] [address] [place], [address] T PROT 7.0 g/dL Normal 6.4-8.2 [facility] Comment on above: Performed By: #### L 500.4050, L100.0100, L501.9985, L501.9520, L501.2300 ####[facility] [address] [place], [address] Urea nitrogen [Mass/Vol] 29 mg/dL High 7-18 [facility] Comment on above: Performed By: #### L 500.4050, L100.0100, L501.9985, L501.9520, L501.2300 ####[facility] [address] [place], [address] Consultation - Infectious Dx on 06-18-2024 Consultation - Infectious Dx Normal [facility] Hemoglobin A1con 06-18-2024 HbA1c (Bld) [Mass fraction] 8.5 % High 3.8-5.6 [facility] Comment on above: Result Comment: Norm al < 5.7 % Prediabetic 5.7 - 6.4 % Diabetic >or= 6.5 % Please note range changes. Performed By: #### L 500.4050, L100.0100, L501.9985, L501.9520, L501.2300 ####[facility] [address] [place], [address] Phosphoruson 06-18-2024 Phosphate [Mass/Vol] 3.1 mg/dL Normal 2.5-4.9 [facility] Comment on above: Performed By: #### L 500.4050, L100.0100, L501.9985, L501.9520, L501.2300 ####[facility] [address] [place], [address] Thyroid Stim Hormone (TSH)on 06-18-2024 TSH 0.160 uIU/mL Low 0.358-3.740 [facility] Comment on above: Performed By: #### L 500.4050, L100.0100, L501.9985, L501.9520, L501.2300 ####[facility] [address] [place], [address] Urinalysis, Completeon 06-18 BACTERIA 2+ /hpf Normal None Seen [facility] Comment on above: Order Comment: SENT LABEL TO MS3 TO COLLECTCOLLECTOR TO SPECIFY Performed By: #### L 400.0001 ####[facility] [address] [place], [address] EPI,SQUAMOUS 0-5 SEEN Normal 5-10 [facility] Comment on above: Order Comment: SENT LABEL TO MS3 TO COLLECTCOLLECTOR TO SPECIFY Performed By: #### L 400.0001 ####[facility] [address] [place], [address] RBC 0-5 SEEN Normal 0-5 [facility] Comment on above: Order Comment: SENT LABEL TO MS3 TO COLLECTCOLLECTOR TO SPECIFY Performed By: #### L 400.0001 ####[facility] [address] [place], [address] WBC 10-25 SEEN Normal 0-5 [facility] Comment on above: Order Comment: SENT LABEL TO MS3 TO COLLECTCOLLECTOR TO SPECIFY Performed By: #### L 400.0001 ####[facility] [address] [place], [address] Mucus Ql (Urine sed) 0 SEEN Normal [facility] Comment on above: Order Comment: SENT LABEL TO MS3 TO COLLECTCOLLECTOR TO SPECIFY Performed By: #### L 400.0001 ####[facility] [address] [place], [address] Vitamin D,25 Hydroxyon 06-18 Vitamin D 25-OH 83.4 ng/mL Normal [facility] Comment on above: Result Comment: Jenni min D 25(OH) Status Range Deficiency <20 ng/mL (50nmol/L) Insufficiency 20 - 30 ng/mL (50 - 75 nmol/L) Sufficiency 30 - 100 ng/mL (75 - 250 nmol/L) Toxicity >100 ng/mL (>250 nmol/L) Performed By: #### L 506.1000, L500.3400 ####[facility] [address] [place], [address] 12 Lead EKGon 06-17-2024 12 Lead EKG Normal [facility] Ammoniaon 06-17-2024 Ammonia (P) [Mass/Vol] ug/dL Low 11-32 [facility] Comment on above: Performed By: #### L 503.5510 ####[facility] [address] [place], [address] Basic Metabolic Profile (BMP )on 06-17-2024 BUN/CRE 20.8 RATIO High 10-20 [facility] Comment on above: Order Comment: 'TROP ' Serial specimen #1, #2 or #3: 1 Performed By: #### L 500.2500, L100.0100, L501.3620, L501.4020 ####[facility] [address] [place], [address] CA,Total 11.4 mg/dL High 8.5-10.1 [facility] Comment on above: Order Comment: 'TROP ' Serial specimen #1, #2 or #3: 1 Performed By: #### L 500.2500, L100.0100, L501.3620, L501.4020 ####[facility] [address] [place], [address] Chloride [Moles/Vol] 100 mmol/L Normal 98-107 [facility] Comment on above: Order Comment: 'TROP ' Serial specimen #1, #2 or #3: 1 Performed By: #### L 500.2500, L100.0100, L501.3620, L501.4020 ####[facility] [address] [place], [address] CO2 [Moles/Vol] 25.0 mmol/L Normal 21.0-32.0 [facility] Comment on above: Order Comment: 'TROP ' Serial specimen #1, #2 or #3: 1 Performed By: #### L 500.2500, L100.0100, L501.3620, L501.4020 ####[facility] [address] [place], [address] Creatinine [Mass/Vol] 1.30 mg/dL High 0.55-1.02 [facility] Comment on above: Order Comment: 'TROP ' Serial specimen #1, #2 or #3: 1 Result Comment: The validity of the calculated GFR GFRAA in patients over70 years has not been determined. Clinical correlation isessential. Performed By: #### L 500.2500, L100.0100, L501.3620, L501.4020 ####[facility] [address] [place], [address] ECRCL 33.93 ml/min Normal [facility] Comment on above: Order Comment: 'TROP ' Serial specimen #1, #2 or #3: 1 Performed By: #### L 500.2500, L100.0100, L501.3620, L501.4020 ####[facility] [address] [place], [address] EST GFR - AA 51 mL/min Low >60 [facility] Comment on above: Order Comment: 'TROP ' Serial specimen #1, #2 or #3: 1 Result Comment: Afri can Egyptian GFR Calc Performed By: #### L 500.2500, L100.0100, L501.3620, L501.4020 ####[facility] [address] [place], [address] GAP 14 Normal 5-15 [facility] Comment on above: Order Comment: 'TROP ' Serial specimen #1, #2 or #3: 1 Performed By: #### L 500.2500, L100.0100, L501.3620, L501.4020 ####[facility] [address] [place], [address] GFR/1.73 sq M.predicted among non-blacks MDRD (S/P/Bld) [Vol rate/Area] 42 mL/min/{1.73_m2} Low >60 [facility] Comment on above: Order Comment: 'TROP ' Serial specimen #1, #2 or #3: 1 Result Comment: Non- GFR Calc Performed By: #### L 500.2500, L100.0100, L501.3620, L501.4020 ####[facility] [address] [place], [address] Glucose [Mass/Vol] 465 mg/dL Invalid Interpretation Code 74-106 [facility] Comment on above: Order Comment: 'TROP ' Serial specimen #1, #2 or #3: 1 Result Comment: Crit ical Result(s) Called at: 13:05:53 06/17/2024 by:Marilynn Marie. Results read back by same.Glucose result greater than or equal to 200 mg/dLsuggests DIABETES MELLITUS per A.D.A. criteria. Performed By: #### L 500.2500, L100.0100, L501.3620, L501.4020 ####[facility] [address] [place], [address] Potassium [Moles/Vol] 3.5 mmol/L Normal 3.5-5.1 [facility] Comment on above: Order Comment: 'TROP ' Serial specimen #1, #2 or #3: 1 Performed By: #### L 500.2500, L100.0100, L501.3620, L501.4020 ####[facility] [address] [place], [address] Sodium [Moles/Vol] 138 mmol/L Normal 136-145 [facility] Comment on above: Order Comment: 'TROP ' Serial specimen #1, #2 or #3: 1 Performed By: #### L 500.2500, L100.0100, L501.3620, L501.4020 ####[facility] [address] [place], [address] Urea nitrogen [Mass/Vol] 27 mg/dL High 7-18 [facility] Comment on above: Order Comment: 'TROP ' Serial specimen #1, #2 or #3: 1 Performed By: #### L 500.2500, L100.0100, L501.3620, L501.4020 ####[facility] [address] [place], [address] Bedside Glucoseon 06-17-2024 FINGERSTICK GLU 356 mg/dL High 74-106 [facility] Comment on above: Result Comment: ADAL GEMENT OF PATIENT CARE PER NURSING PROTOCOL Performed By: #### L 501.080 ####[facility] [address] [place], [address] FINGERSTICK GLU 335 mg/dL High 74-106 [facility] Comment on above: Result Comment: ADAL GEMENT OF PATIENT CARE PER NURSING PROTOCOL Performed By: #### L 501.080 ####[facility] [address] [place], [address] Brain/Head without Contrasto n 06-17-2024 Brain/Head without Contrast Normal [facility] CBC W/Diff, Automatedon 12-0 Absolute Lymph 0.63 X10 3/uL Low 0.83-4.51 [facility] Comment on above: Performed By: #### L 500.2500, L100.0100, L501.3620, L501.4020 ####[facility] [address] [place], [address] Absolute Neut 12.1 X10 3/uL High 2.0-7.7 [facility] Comment on above: Performed By: #### L 500.2500, L100.0100, L501.3620, L501.4020 ####[facility] [address] [place], [address] Basophils/100 WBC (Bld) 0.4 % Normal 0-1 [facility] Comment on above: Performed By: #### L 500.2500, L100.0100, L501.3620, L501.4020 ####[facility] [address] [place], [address] Eosinophils/100 WBC (Bld) 0.0 % Normal 0-5 [facility] Comment on above: Performed By: #### L 500.2500, L100.0100, L501.3620, L501.4020 ####[facility] [address] [place], [address] Erythrocyte distribution width (RBC) [Ratio] 16.7 % High 11.6-14.6 [facility] Comment on above: Performed By: #### L 500.2500, L100.0100, L501.3620, L501.4020 ####[facility] [address] [place], [address] Hematocrit (Bld) [Volume fraction] 48.2 % High 37-47 [facility] Comment on above: Performed By: #### L 500.2500, L100.0100, L501.3620, L501.4020 ####[facility] [address] [place], [address] Hemoglobin (Bld) [Mass/Vol] 15.0 g/dL Normal 12.0-15.0 [facility] Comment on above: Performed By: #### L 500.2500, L100.0100, L501.3620, L501.4020 ####[facility] [address] [place], [address] IG% 0.500 Normal 0.0-0.9 [facility] Comment on above: Result Comment: IG% - Immature Granulocytes (promyelocytes, myelocytes andmetamyelocytes) > 1% indicates that a LEFT SHIFT is Present. Performed By: #### L 500.2500, L100.0100, L501.3620, L501.4020 ####[facility] [address] [place], [address] Lymphocytes/100 WBC (Bld) 4.7 % Low 19-41 [facility] Comment on above: Performed By: #### L 500.2500, L100.0100, L501.3620, L501.4020 ####[facility] [address] [place], [address] MCH (RBC) [Entitic mass] 25.9 pg Low 27.0-32.0 [facility] Comment on above: Performed By: #### L 500.2500, L100.0100, L501.3620, L501.4020 ####[facility] [address] [place], [address] MCHC (RBC) [Mass/Vol] 31.1 g/dL Low 32-36 [facility] Comment on above: Performed By: #### L 500.2500, L100.0100, L501.3620, L501.4020 ####[facility] [address] [place], [address] MCV (RBC) [Entitic vol] 83.2 fL Normal 81-99 [facility] Comment on above: Performed By: #### L 500.2500, L100.0100, L501.3620, L501.4020 ####[facility] [address] [place], [address] Monocytes/100 WBC (Bld) 3.8 % Normal 0-10 [facility] Comment on above: Performed By: #### L 500.2500, L100.0100, L501.3620, L501.4020 ####[facility] [address] [place], [address] Neutrophils/100 WBC (Bld) 90.6 % High 47-70 [facility] Comment on above: Performed By: #### L 500.2500, L100.0100, L501.3620, L501.4020 ####[facility] [address] [place], [address] Nucleated RBC (Bld) [#/Vol] 0 10*3/uL Normal 0-5 [facility] Comment on above: Performed By: #### L 500.2500, L100.0100, L501.3620, L501.4020 ####[facility] [address] [place], [address] Platelet mean volume (Bld) [Entitic vol] 11.2 fL Normal 6.2-12.0 [facility] Comment on above: Performed By: #### L 500.2500, L100.0100, L501.3620, L501.4020 ####[facility] [address] [place], [address] Platelets (Bld) [#/Vol] 273 10*3/uL Normal 150-450 [facility] Comment on above: Performed By: #### L 500.2500, L100.0100, L501.3620, L501.4020 ####[facility] [address] [place], [address] RBC (Bld) [#/Vol] 5.79 10*6/uL High 4.2-5.4 [facility] Comment on above: Performed By: #### L 500.2500, L100.0100, L501.3620, L501.4020 ####[facility] [facility] [address] [place], [address] RDW SD 48.9 fl High 35.1-43.9 [facility] Comment on above: Performed By: #### L 500.2500, L100.0100, L501.3620, L501.4020 ####[facility] [address] [place], [address] WBC (Bld) [#/Vol] 13.4 10*3/uL High 4.4-11.0 [facility] Comment on above: Performed By: #### L 500.2500, L100.0100, L501.3620, L501.4020 ####[facility] [address] [place], [address] CPK Total, Creatine Kinaseon 06-17-2024 CPK TOTAL 526 U/L High 26-192 [facility] Comment on above: Order Comment: 'TROP ' Serial specimen #1, #2 or #3: 1 Performed By: #### L 500.2500, L100.0100, L501.3620, L501.4020 ####[facility] [address] [place], [address] Chest 1 View (Portable)on Chest 1 View (Portable) Normal [facility] Emergency Department Summary on 06-17-2024 Emergency Department Summary Normal [facility] Extremity Lower without Cont raon 06-17-2024 Extremity Lower without Contra Normal [facility] Free T3on 06-17-2024 Free T3 [Mass/Vol] 3.8 pg/mL Normal 2.18-3.98 [facility] Comment on above: Performed By: #### L 501.85552, L501.5200, L506.0400 ####[facility] [address] [place], [address] H AND P Exam - Hospitaliston 06-17-2024 H&P Exam - Hospitalist Normal [facility] HIP, UNI W/ Pelvis 2-3 Views on 06-17-2024 HIP, UNI W/ Pelvis 2-3 Views Normal [facility] L501.4020on 06-17-2024 TROPONIN-I HS 47 pg/mL Normal 3.0-54.0 [facility] Comment on above: Order Comment: 'TROP ' Serial specimen #1, #2 or #3: 1 Result Comment: Plea Note: New Test Units and Gender Specific Reference Ranges. For more information see Policy Stat Procedure [place] High Sensitivity Troponin (TNIH) and attachments. Performed By: #### L 500.2500, L100.0100, L501.3620, L501.4020 ####[facility] [address] [place], [address] Liver Profileon 06-17-2024 Albumin [Mass/Vol] 4.6 g/dL Normal 3.2-5.0 [facility] Comment on above: Performed By: #### L 506.1000, L500.3400 ####[facility] [address] [place], [address] ALK P 97 U/L Normal 45-117 [facility] Comment on above: Performed By: #### L 506.1000, L500.3400 ####[facility] [address] [place], [address] ALT [Catalytic activity/Vol] 23 U/L Normal 13-56 [facility] Comment on above: Performed By: #### L 506.1000, L500.3400 ####[facility] [address] [place], [address] AST [Catalytic activity/Vol] 33 U/L Normal 15-37 [facility] Comment on above: Performed By: #### L 506.1000, L500.3400 ####[facility] [address] [place], [address] Bilirubin [Mass/Vol] 0.90 mg/dL Normal 0.20-1.00 [facility] Comment on above: Result Comment: For patients on eltrombopag therapy, use of Dimension [place] TBIL is not recommended. Performed By: #### L 506.1000, L500.3400 ####[facility] [address] [place], [address] Bilirubin.direct [Mass/Vol] 0.31 mg/dL High 0.00-0.30 [facility] Comment on above: Performed By: #### L 506.1000, L500.3400 ####[facility] [address] [place], [address] Globulin (S) [Mass/Vol] 4.4 g/dL High 2.2-4.2 [facility] Comment on above: Performed By: #### L 506.1000, L500.3400 ####[facility] [address] [place], [address] T PROT 9.0 g/dL High 6.4-8.2 [facility] Comment on above: Performed By: #### L 506.1000, L500.3400 ####[facility] [address] [place], [address] Magnesiumon 06-17-2024 Magnesium [Mass/Vol] 1.6 mg/dL Normal 1.6-2.6 [facility] Comment on above: Performed By: #### L 501.55080, L501.5200, L506.0400 ####[facility] [address] [place], [address] PTHINon 06-17-2024 PTH 55.4 pg/mL Normal 18.4-80.1 [facility] Comment on above: Performed By: #### L 509.1000 ####[facility] [address] [place], [address] Spine Cervical without Contr ason 06-17-2024 Spine Cervical without Contras Normal [facility] T4 Free Directon 06-17-2024 T4 FREE DIRECT 1.50 ng/dL High 0.76-1.46 [facility] Comment on above: Performed By: #### L 501.62468, L501.5200, L506.0400 ####[facility] [address] [place], [address] CBC W Auto Differential pane l (Bld)on 06-03-2024 Basophils (Bld) [#/Vol] 0.05 10*3/uL Normal <0.11 [facility] Comment on above: Order Comment: Speci men Type: BLOOD SPECIMENOrdering Facility: [facility] Address: [address] [place] [address] Performed By: #### 1 4196-0, 24962-3 ####[facility] JONATHANDAVE [id number] [place] [address] [place] Basophils/100 WBC (Bld) 0.8 % Normal [facility] Comment on above: Order Comment: Speci men Type: BLOOD SPECIMENOrdering Facility: [facility] Address: [address] [place] [address] Performed By: #### 1 4196-0, 97973-7 ####[facility]ANYNaz [id number] [place] [address] [place] Differential cell count method Nom (Bld) Auto Normal [facility] Comment on above: Order Comment: Speci men Type: BLOOD SPECIMENOrdering Facility: [facility] Address: [address] [place] [address] Performed By: #### 1 4196-0, 56138-2 ####[facility] [id number] [place] [address] [place] Eosinophils (Bld) [#/Vol] 0.30 10*3/uL Normal <0.46 [facility] Comment on above: Order Comment: Speci men Type: BLOOD SPECIMENOrdering Facility: [facility] Address: [address] [place] [address] Performed By: #### 1 4196-0, 82241-3 ####[facility] [id number] [place] [address] [place] Eosinophils/100 WBC (Bld) 5.0 % Normal [facility] Comment on above: Order Comment: Speci men Type: BLOOD SPECIMENOrdering Facility: [facility] Address: [address] [place] [address] Performed By: #### 1 4196-0, 32896-8 ####[facility]CL[facility] [id number] [place] [address] [place] Erythrocyte distribution width (RBC) [Ratio] 17.2 % High 11.5-15.0 [facility] Comment on above: Order Comment: Speci men Type: BLOOD SPECIMENOrdering Facility: [facility] Address: [address] [place] [address] Performed By: #### 1 4196-0, 52922-7 ####[facility] NORTHLIA [id number] [place] [address] [place] Hematocrit (Bld) [Volume fraction] 38.4 % Normal 36.0-46.0 [facility] Comment on above: Order Comment: Speci men Type: BLOOD SPECIMENOrdering Facility: [facility] Address: [address] [place] [address] Performed By: #### 1 4196-0, 96287-2 ####[facility] NORTHLINaz [id number] [place] [address] [place] Hemoglobin (Bld) [Mass/Vol] 11.6 g/dL Normal 11.5-15.5 [facility] Comment on above: Order Comment: Speci men Type: BLOOD SPECIMENOrdering Facility: [facility] Address: [address] [place] [address] Performed By: #### 1 4196-0, 02364-1 ####[facility] WESTWNCL[facility] [id number] [place] [address] [place] Immature granulocytes (Bld) [#/Vol] 10*3/uL Normal <0.10 [facility] Comment on above: Order Comment: Speci men Type: BLOOD SPECIMENOrdering Facility: [facility] Address: [address] [place] [address] Performed By: #### 1 4196-0, 44601-7 ####[facility] [id number] [place] [address] [place] Immature granulocytes/100 WBC (Bld) 0.2 % Normal [facility] Comment on above: Order Comment: Speci men Type: BLOOD SPECIMENOrdering Facility: [facility] Address: [address] [place] [address] Performed By: #### 1 4196-0, 40434-7 ####[facility] [id number] [place] [address] [place] Lymphocytes (Bld) [#/Vol] 1.39 10*3/uL Normal 1.00-4.00 [facility] Comment on above: Order Comment: Speci men Type: BLOOD SPECIMENOrdering Facility: [facility] Address: [address] [place] [address] Performed By: #### 1 4196-0, 85546-0 ####[facility] [id number] [place] [address] [place] Lymphocytes/100 WBC (Bld) 23.0 % Normal [facility] Comment on above: Order Comment: Speci men Type: BLOOD SPECIMENOrdering Facility: [facility] Address: [address] [place] [address] Performed By: #### 1 4196-0, 70979-9 ####[facility] [id number] [place] [address] [place] MCH (RBC) [Entitic mass] 25.5 pg Low 26.0-34.0 [facility] Comment on above: Order Comment: Speci men Type: BLOOD SPECIMENOrdering Facility: [facility] Address: [address] [place] [address] Performed By: #### 1 4196-0, 50178-2 ####[facility] NORTHLIA [id number] [place] [address] [place] MCHC (RBC) [Mass/Vol] 30.2 g/dL Low 30.5-36.0 [facility] Comment on above: Order Comment: Speci men Type: BLOOD SPECIMENOrdering Facility: [facility] Address: [address] [place] [address] Performed By: #### 1 4196-0, 77902-0 ####[facility] [id number] [place] [address] [place] MCV (RBC) [Entitic vol] 84.4 fL Normal 80.0-100.0 [facility] Comment on above: Order Comment: Speci men Type: BLOOD SPECIMENOrdering Facility: [facility] Address: [address] [place] [address] Performed By: #### 1 4196-0, 35148-8 ####[facility] [id number] [place] [address] [place] Monocytes (Bld) [#/Vol] 0.56 10*3/uL Normal <0.87 [facility] Comment on above: Order Comment: Speci men Type: BLOOD SPECIMENOrdering Facility: [facility] Address: [address] [place] [address] Performed By: #### 1 4196-0, 92872-1 ####[facility]LLASMAYURIA [id number] [place] [address] [place] Monocytes/100 WBC (Bld) 9.3 % Normal [facility] Comment on above: Order Comment: Speci men Type: BLOOD SPECIMENOrdering Facility: [facility] Address: [address] [place] [address] Performed By: #### 1 4196-0, 67723-9 ####[facility]ASNCLIA [id number] [place] [address] [place] Neutrophils (Bld) [#/Vol] 3.74 10*3/uL Normal 1.45-7.50 [facility] Comment on above: Order Comment: Speci men Type: BLOOD SPECIMENOrdering Facility: [facility] Address: [address] [place] [address] Performed By: #### 1 4196-0, 61558-5 ####[facility] [id number] [place] [address] [place] Neutrophils/100 WBC (Bld) 61.7 % Normal [facility] Comment on above: Order Comment: Speci men Type: BLOOD SPECIMENOrdering Facility: [facility] Address: [address] [place] [address] Performed By: #### 1 4196-0, 16671-8 ####[facility] [id number] [place] [address] [place] Nucleated RBC (Bld) [#/Vol] 10*3/uL Normal <0.01 [facility] Comment on above: Order Comment: Speci men Type: BLOOD SPECIMENOrdering Facility: [facility] Address: [address] [place] [address] Performed By: #### 1 4196-0, 86638-9 ####[facility] [id number] [place] [address] [place] Nucleated RBC/100 WBC (Bld) [Ratio] 0.0 /100 WBC Normal [facility] Comment on above: Order Comment: Speci men Type: BLOOD SPECIMENOrdering Facility: [facility] Address: [address] [place] [address] Performed By: #### 1 4196-0, 30454-9 ####[facility] [id number] [place] [address] [place] Platelet mean volume (Bld) [Entitic vol] 10.0 fL Normal 9.0-12.7 [facility] Comment on above: Order Comment: Speci men Type: BLOOD SPECIMENOrdering Facility: [facility] Address: [address] [place] [address] Performed By: #### 1 4196-0, 16114-5 ####[facility] ARJUN SALDIVARNCDEXTERA [id number] [place] [address] [place] Platelets (Bld) [#/Vol] 280 10*3/uL Normal 150-400 [facility] Comment on above: Order Comment: Speci men Type: BLOOD SPECIMENOrdering Facility: [facility] Address: [address] [place] [address] Performed By: #### 1 4196-0, 11463-5 ####[facility]DEX[facility] [id number] [place] [address] [place] RBC (Bld) [#/Vol] 4.55 10*6/uL Normal 3.90-5.20 [facility] Comment on above: Order Comment: Speci men Type: BLOOD SPECIMENOrdering Facility: [facility] Address: [address] [place] [address] Performed By: #### 1 4196-0, 41206-0 ####[facility]CL[facility] [id number] [place] [address] [place] WBC (Bld) [#/Vol] 6.05 10*3/uL Normal 3.70-11.00 [facility] Comment on above: Order Comment: Speci men Type: BLOOD SPECIMENOrdering Facility: [facility] Address: [address] [place] [address] Performed By: #### 1 4196-0, 58252-3 ####[facility]CL[facility] [id number] [place] [address] [place] CNOVSPon 06-03-2024 CNOVSP Visit (SP) Office [facility] -- KERRIE KEARNEY ([id number]) 1945 F Date Time Provider Department 06/03/24 [...] a month ago. recalls getting it at [facility]. Was living in [place]. Moved back to [place] early summer. Was admitted to [facility] for meningitis 12/2023. Transferred to [facility]. Course [...] in 6 months with labs Teressa Brennan APRN.[employer] MACHINE OPERATOR I spent a total of 30 minutes on the date of the service which included preparing to see the patient, nmeb-sg-[id number] patient care, completing clinical documentation, and counseling and educating the patient/family/caregiver. Portions of this note including HPI, ROS, impression/plan may have b (more content not included)... Normal [facility] Ferritin SerPl-mCncon 2023 Ferritin [Mass/Vol] 183.0 ng/mL Normal 14.7-205.1 [facility] Comment on above: Order Comment: Speci men Type: BLOOD SPECIMENOrdering Facility: [facility] Address: [address] [place] [address] Performed By: #### 5 0190-8, 2276-4 ####[facility] LABCLIA [id number] [place] [address] [place] Iron and Iron binding capaci ty panelon 06-03-2024 Iron [Mass/Vol] 55 ug/dL Normal 41-186 [facility] Comment on above: Order Comment: Speci men Type: BLOOD SPECIMENOrdering Facility: [facility] Address: [address] [place] [address] Performed By: #### 5 0190-8, 2276-4 ####[facility] LABCLIA [id number] [place] [address] [place] Iron binding capacity [Mass/Vol] 303 ug/dL Normal 232-386 [facility] Comment on above: Order Comment: Speci men Type: BLOOD SPECIMENOrdering Facility: [facility] Address: [address] [place] [address] Performed By: #### 5 0190-8, 2275-4 ####[facility] LABIA [id number] [place] [address] [place] Iron/TIBC [Molar ratio] 18.2 % Normal 15.0-57.0 [facility] Comment on above: Order Comment: Speci men Type: BLOOD SPECIMENOrdering Facility: [facility] Address: [address] [place] [address] Performed By: #### 5 0190-8, 2275-4 ####[facility] LABIA [id number] [place] [address] [place] Retics #on 06-03-2024 Reticulocytes (Bld) [#/Vol] 0.37792 10*3/uL Normal 0.018-0.100 [facility] Comment on above: Order Comment: Speci men Type: BLOOD SPECIMENOrdering Facility: [facility] Address: [address] [place] [address] Performed By: #### 1 4196-0, 46947-8 ####[facility] ARJUN CASTILLOFALMOUTHARIELA [id number] [place] [address] [place] Reticulocytes (Bld) [#/Vol]o n 06-03-2024 Reticulocytes/100 RBC (Bld) 0.6 % Normal 0.4-2.0 [facility] Comment on above: Order Comment: Aime grace Type: BLOOD SPECIMENOrdering Facility: [facility] Address: [place] [address] Performed By: #### 1 4196-0, 10339-6 ####[facility] ARJUN CASTILLOFALMOUTHARIELA [id number] [address] [facility] CNOVSPon 04-29-2024 CNOVSP Visit (SP) Office ([facility] E[facility]WS) -- KERRIE KEARNEY ([id number]) 1945 F Date Time Provider Department 04/29/24 10:30 AM TREATMENT RM 15 [facility] WSTRHEMA[facility] During your visit today, we recorded the following information about you: Temperature Pulse Respiration Blood pressure 98.2 degrees 78/minute 16/minute 144/75 Referring Provider: ADAN SCOTT [[id number]] Allergies As of Date: 04/29/2024 Noted Allergy Reaction SULFA (SULFONAMIDE ANTIBIOTICS) 04/08/2024 9 - Itching Date Reviewed: 04/29/2024 Reviewed by: Madai Hunter RN - Fully Assessed Reason for Visit: Non-Chemotherapy Treatment [795] 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] Other Visit Diagnosis:Iron deficiency anemia secondary to inadequate dietary iron intake [D50.8] Order(s):TREATMENT PARAMETER-NOT NEEDED [9990723] Order #: [id number]: 1 BCN NURSING COMMUNICATION [9990720] Order #: [id number]: 1 STANDING BCN NURSING COMMUNICATION [9990720] Order #: [id number]: 1 STANDING [] iron sucrose 200 mg injection (VENOFER)Disp: Rfl: NaCl 0.9% iv infusionDisp: Rfl: diphenhydrAMINE 50 mg injection (BENADRYL)Disp: Rfl: hydrocortisone sodium succinate (PF) 100 mg injection (Solu-CORTEF)Disp: Rfl: EPINEPHrine HCl (PF) 1 mg/mL (1 mL) 0.3 mg injectionDisp: Rfl: N NURSING COMMUNICATION [6499108] Order #: [id number]: 1 STANDING Prescriptions as of 04/29/2024 - [...] by MADAI HUNTER on 04/29/24 [facility] [place] 04-28-2024 KESHIA Telephone (HEMAWS) -- KERRIE KEARNEY ([id number]) 1945 F Date Time Provider Department 04/28/24 [...] Status:Closed by SAMANTHA MCDONALD on 04/28/24 Normal [facility] CNOVSPon 10-11-2024 CNOVSP Visit (SP) Office ([facility]) -- KERRIE KEARNEY ([id number]) 1945 F Date Time Provider Department 04/25/24 3:30 PM TREATMENT RM 14 [facility] W[facility] During your visit today, we recorded the following information about you: Referring Provider: ADAN SCOTT [[id number]] Allergies As of Date: 04/25/2024 Noted Allergy Reaction SULFA (SULFONAMIDE ANTIBIOTICS) 04/08/2024 9 - Itching Date Reviewed: 04/25/2024 Reviewed by: Veronique Barbour, RN - Fully Assessed Reason for Visit: Non-Chemotherapy Treatment [795] Primary Visit Diagnosis:Iron deficiency anemia secondary to inadequate dietary iron intake [D50.8] 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] Order(s):[] iron sucrose 200 mg injection (VENOFER)Disp: Rfl: TREATMENT PARAMETER-NOT NEEDED [9990723] Order #: [id number]: 1 BCN NURSING COMMUNICATION [9990720] Order #: [id number]: 1 STANDING BCN NURSING COMMUNICATION [9990720] Order #: [id number]: 1 STANDING NaCl 0.9% iv infusionDisp: Rfl: diphenhydrAMINE 50 mg injection (BENADRYL)Disp: Rfl: hydrocortisone sodium succinate (PF) 100 mg injection (Solu-CORTEF)Disp: Rfl: EPINEPHrine HCl (PF) 1 mg/mL (1 mL) 0.3 mg injectionDisp: Rfl: BCN NURSING COMMUNICATION [9990720] Order #: [id number]: 1 STANDING BCN NURSING COMMUNICATION [9990720] Order #: [id number]: 1 STANDING sodium chloride 0.9 % (flush) 10-20 mL (BD POSIFLUSH)Disp: Rfl: sodium chloride 0.9 % (flush) 10-20 mL (BD POSIFLUSH)Disp: Rfl: [facility] NURSING COMMUNICATION [1357512] Order #: [id number]: 1 STANDING [facility] NURSING COMMUNICATION [[id number]] Order #: [id number]: 1 STANDING Prescriptions as of 04/25/2024 - [...] by VERONIQUE BARBOUR on 04/25/24 [facility] CNOVSPon 04-23-2024 CNOVSP Visit (SP) Office (H EMAWS) -- KERRIE KEARNEY ([id number]) 1945 F Date Time Provider Department 04/23/24 1:00 PM TREATMENT RM 15 [facility] During your visit today, we recorded the following information about you: Temperature Pulse Blood pressure 98.2 degrees 85/minute 126/64 Referring Provider: ADAN SCOTT [[id number]] Allergies As of Date: 04/23/2024 Noted Allergy Reaction SULFA (SULFONAMIDE ANTIBIOTICS) 04/08/2024 9 - Itching Date Reviewed: 04/21/2024 Reviewed by: Oksana Masters RN - Fully Assessed Reason for Visit: Non-Chemotherapy Treatment [795] 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] Other Visit Diagnosis:Iron deficiency anemia secondary to inadequate dietary iron intake [D50.8] Order(s):TREATMENT PARAMETER-NOT NEEDED [2637541] Order #: [id number]: 1 BCN NURSING COMMUNICATION [0065169] Order #: [id number]: 1 STANDING BCN NURSING COMMUNICATION [9990720] Order #: [id number]: 1 STANDING [] iron sucrose iv piggyback 200 mg in NaCl 0.9% 100 mL (VENOFER)Disp: Rfl: NaCl 0.9% iv infusionDisp: Rfl: diphenhydrAMINE 50 mg injection (BENADRYL)Disp: Rfl: hydrocortisone sodium succinate (PF) 100 mg injection (Solu-CORTEF)Disp: Rfl: EPINEPHrine HCl (PF) 1 mg/mL (1 mL) 0.3 mg injectionDisp: Rfl: BCN NURSING COMMUNICATION [[id number]] Order #: [id number]: 1 STANDING Prescriptions as of 04/23/2024 - [...] by RADHA GRESHAM on 04/23/24 [facility] CNOVSPon 04-21-2024 CNOVSP Visit (SP) Office (H EMAWS) -- KERRIE KEARNEY ([id number]) 1945 F Date Time Provider Department 04/21/24 10:00 AM TREATMENT RM 14 [facility] WSTR[facility]MA[facility] During your visit today, we recorded the following information about you: Temperature Pulse Respiration Blood pressure 98.1 degrees 70/minute 14/minute 127/63 Referring Provider: ADAN SCOTT [[id number]] Allergies As of Date: 04/21/2024 Noted Allergy Reaction SULFA (SULFONAMIDE ANTIBIOTICS) 04/08/2024 9 - Itching Date Reviewed: 04/21/2024 Reviewed by: Oksana Masters RN - Fully Assessed Reason for Visit: Non-Chemotherapy Treatment [795] 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] Other Visit Diagnosis:Iron deficiency anemia secondary to inadequate dietary iron intake [D50.8] Order(s):TREATMENT PARAMETER-NOT NEEDED [9693891] Order #: [id number]: 1 N NURSING COMMUNICATION [1193252] Order #: [id number]: 1 STANDING N NURSING COMMUNICATION [1298040] Order #: [id number]: 1 STANDING [] iron sucrose iv piggyback 200 mg in NaCl 0.9% 100 mL (VENOFER)Disp: Rfl: NaCl 0.9% iv infusionDisp: Rfl: diphenhydrAMINE 50 mg injection (BENADRYL)Disp: Rfl: hydrocortisone sodium succinate (PF) 100 mg injection (Solu-CORTEF)Disp: Rfl: EPINEPHrine HCl (PF) 1 mg/mL (1 mL) 0.3 mg injectionDisp: Rfl: N NURSING COMMUNICATION [0775712] Order #: [id number]: 1 STANDING Prescriptions as of 04/21/2024 - [...] Status:Closed by OKSANA MASTERS on 04/21/24 Normal [facility] CNOVSPon 04-17-2024 CNOVSP Visit (SP) Office (H EMAWS) -- KERRIE KEARNEY ([id number]) 1945 F Date Time Provider Department 04/17/24 11:00 AM TREATMENT RM 16 [facility] W[facility] During your visit today, we recorded the following information about you: Temperature Pulse Blood pressure 97.4 degrees 90/minute 147/72 Referring Provider: ADAN SCOTT [[id number]] Allergies As of Date: 04/17/2024 Noted Allergy [...] Rfl: TREATMENT PARAMETER-NOT NEEDED [9990723] Order #: [id number]: 1 BCN NURSING COMMUNICATION [[id number]] Order #: [id number]: 1 STANDING N NURSING COMMUNICATION [[id number]] Order #: [id number]: 1 STANDING BCN NURSING COMMUNICATION [[id number]] Order #: [id number]: 1 STANDING BCN NURSING COMMUNICATION [[id number]] Order #: [id number]: 1 STANDING BCN NURSING COMMUNICATION [[id number]] Order #: [id number]: 1 STANDING N NURSING COMMUNICATION [[id number]] Order #: [id number]: 1 STANDING Prescriptions as of 04/17/2024 - [...] by VERONIQUE BARBOUR on 04/17/24 [facility] Mary Ann 04-15-2024 CNPN Telephone (PFS) -- KERRIE KEARNEY ([id number]) 1945 F Date Time Provider Department 04/15/24 [...] Fully Assessed Reason for Visit: Benefits Investigation [7598] Prescriptions as of 04/15/2024 - atorvastatin (LIPITOR) [...] Status:Closed by JOCE BUSTAMANTE on 04/15/24 Normal [facility] CNPWanda 04-09-2024 CNPN Telephone (HEMDANICA) -- KERRIE KEARNEY ([id number]) 1945 F Date Time Provider Department 04/09/24 [...] Status:Closed by CARLEEN BALES on 04/09/24 [facility] Auto Differential pane l (Bld)on 04-08-2024 Basophils (Bld) [#/Vol] 0.06 10*3/uL NINF [facility] Basophils/100 WBC (Bld) 0.7 % [facility] Differential cell count method Nom (Bld) Auto [facility] Eosinophils (Bld) [#/Vol] 0.16 10*3/uL [facility] Eosinophils/100 WBC (Bld) 1.9 % [facility] Erythrocyte distribution width (RBC) [Ratio] 13.0 % 11.5 - 15.0 % [facility] Hematocrit (Bld) [Volume fraction] 32.1 % Low 36.0 - 46.0 % [facility] Hemoglobin (Bld) [Mass/Vol] 9.6 g/dL Low 11.5 - 15.5 g/dL [facility] Immature granulocytes (Bld) [#/Vol] [facility] Immature granulocytes/100 WBC (Bld) 0.1 % [facility] Interpretation and review of laboratory results Abnormal [facility] Lymphocytes (Bld) [#/Vol] 1.47 10*3/uL [facility] Lymphocytes/100 WBC (Bld) 17.7 % [facility] MCH (RBC) [Entitic mass] 24.9 pg Low 26.0 - 34.0 pg [facility] MCHC (RBC) [Mass/Vol] 29.9 g/dL Low 30.5 - 36.0 g/dL [facility] MCV (RBC) [Entitic vol] 83.4 fL 80.0 - 100.0 fL [facility] Monocytes (Bld) [#/Vol] 0.59 10*3/uL [facility] Monocytes/100 WBC (Bld) 7.1 % [facility] Neutrophils (Bld) [#/Vol] 6.02 10*3/uL [facility] Neutrophils/100 WBC (Bld) 72.5 % [facility] Nucleated RBC (Bld) [#/Vol] [facility] Nucleated RBC/100 WBC (Bld) [Ratio] 0.0 % /100 WBC [facility] Platelet mean volume (Bld) [Entitic vol] 10.2 fL 9.0 - 12.7 fL [facility] Platelets (Bld) [#/Vol] 317 10*3/uL [facility] RBC (Bld) [#/Vol] 3.85 10*6/uL Low 3.90 - 5.2 0 m/uL [facility] WBC (Bld) [#/Vol] 8.31 10*3/uL [facility] Basophils (Bld) [#/Vol] 0.06 10*3/uL Normal <0.11 [facility] Comment on above: Order Comment: Speci men Type: BLOOD SPECIMENOrdering Facility: [facility] Address: [address] [place] [address] Performed By: #### 5 7021-8 ####[facility] JONATHANJUSTOLIA [id number] [place] [address] [place] Basophils/100 WBC (Bld) 0.7 % Normal [facility] Comment on above: Order Comment: Speci men Type: BLOOD SPECIMENOrdering Facility: [facility] Address: [address] [place] [address] Performed By: #### 5 7021-8 ####[facility]LLASBRITTANYLIA [id number] [place] [address] [place] Differential cell count method Nom (Bld) Auto Normal [facility] Comment on above: Order Comment: Speci men Type: BLOOD SPECIMENOrdering Facility: [facility] Address: [address] [place] [address] Performed By: #### 5 7021-8 ####[facility] NORTHLIA [id number] [place] [address] [place] Eosinophils (Bld) [#/Vol] 0.16 10*3/uL Normal <0.46 [facility] Comment on above: Order Comment: Speci men Type: BLOOD SPECIMENOrdering Facility: [facility] Address: [address] [place] [address] Performed By: #### 5 7021-8 ####[facility] MILLWNCLIA [id number] [place] [address] [place] Eosinophils/100 WBC (Bld) 1.9 % Normal [facility] Comment on above: Order Comment: Speci men Type: BLOOD SPECIMENOrdering Facility: [facility] Address: [address] [place] [address] Performed By: #### 5 7021-8 ####[facility] JONATHANWNCLIA [id number] [place] [address] [place] Erythrocyte distribution width (RBC) [Ratio] 13.0 % Normal 11.5-15.0 [facility] Comment on above: Order Comment: Speci men Type: BLOOD SPECIMENOrdering Facility: [facility] Address: [address] [place] [address] Performed By: #### 5 7021-8 ####[facility] NORTHLIA [id number] [place] [address] [place] Hematocrit (Bld) [Volume fraction] 32.1 % Low 36.0-46.0 [facility] Comment on above: Order Comment: Speci men Type: BLOOD SPECIMENOrdering Facility: [facility] Address: [address] [place] [address] Performed By: #### 5 7021-8 ####[facility] [id number] [place] [address] [place] Hemoglobin (Bld) [Mass/Vol] 9.6 g/dL Low 11.5-15.5 [facility] Comment on above: Order Comment: Speci men Type: BLOOD SPECIMENOrdering Facility: [facility] Address: [address] [place] [address] Performed By: #### 5 7021-8 ####[facility] NORTHLIA [id number] [place] [address] [place] Immature granulocytes (Bld) [#/Vol] 10*3/uL Normal <0.10 [facility] Comment on above: Order Comment: Speci men Type: BLOOD SPECIMENOrdering Facility: [facility] Address: [address] [place] [address] Performed By: #### 5 7021-8 ####[facility] P[facility]LLASNCLIA [id number] [place] [address] [place] Immature granulocytes/100 WBC (Bld) 0.1 % Normal [facility] Comment on above: Order Comment: Speci men Type: BLOOD SPECIMENOrdering Facility: [facility] Address: [address] [place] [address] Performed By: #### 5 7021-8 ####[facility] [id number] [place] [address] [place] Lymphocytes (Bld) [#/Vol] 1.47 10*3/uL Normal 1.00-4.00 [facility] Comment on above: Order Comment: Speci men Type: BLOOD SPECIMENOrdering Facility: [facility] Address: [address] [place] [address] Performed By: #### 5 7021-8 ####[facility] [id number] [place] [address] [place] Lymphocytes/100 WBC (Bld) 17.7 % Normal [facility] Comment on above: Order Comment: Speci men Type: BLOOD SPECIMENOrdering Facility: [facility] Address: [address] [place] [address] Performed By: #### 5 7021-8 ####[facility]LLASNCLI [id number] [place] [address] [place] MCH (RBC) [Entitic mass] 24.9 pg Low 26.0-34.0 [facility] Comment on above: Order Comment: Speci men Type: BLOOD SPECIMENOrdering Facility: [facility] Address: [address] [place] [address] Performed By: #### 5 7021-8 ####[facility] [id number] [place] [address] [place] MCHC (RBC) [Mass/Vol] 29.9 g/dL Low 30.5-36.0 [facility] Comment on above: Order Comment: Speci men Type: BLOOD SPECIMENOrdering Facility: [facility] Address: [address] [place] [address] Performed By: #### 5 7021-8 ####[facility] JONATHANFALMOUTHARIELA [id number] [place] [address] [place] MCV (RBC) [Entitic vol] 83.4 fL Normal 80.0-100.0 [facility] Comment on above: Order Comment: Speci men Type: BLOOD SPECIMENOrdering Facility: [facility] Address: [address] [place] [address] Performed By: #### 5 7021-8 ####[facility] [id number] [place] [address] [place] Monocytes (Bld) [#/Vol] 0.59 10*3/uL Normal <0.87 [facility] Comment on above: Order Comment: Speci men Type: BLOOD SPECIMENOrdering Facility: [facility] Address: [address] [place] [address] Performed By: #### 5 7021-8 ####[facility]LLASNCA [id number] [place] [address] [place] Monocytes/100 WBC (Bld) 7.1 % Normal [facility] Comment on above: Order Comment: Speci men Type: BLOOD SPECIMENOrdering Facility: [facility] Address: [address] [place] [address] Performed By: #### 5 7021-8 ####[facility]CL[facility] [id number] [place] [address] [place] Neutrophils (Bld) [#/Vol] 6.02 10*3/uL Normal 1.45-7.50 [facility] Comment on above: Order Comment: Speci men Type: BLOOD SPECIMENOrdering Facility: [facility] Address: [address] [place] [address] Performed By: #### 5 7021-8 ####[facility] JONATHANWBRITTANYLIA [id number] [place] [address] [place] Neutrophils/100 WBC (Bld) 72.5 % Normal [facility] Comment on above: Order Comment: Speci men Type: BLOOD SPECIMENOrdering Facility: [facility] Address: [address] [place] [address] Performed By: #### 5 7021-8 ####[facility]ANYLIA [id number] [place] [address] [place] Nucleated RBC (Bld) [#/Vol] 10*3/uL Normal <0.01 [facility] Comment on above: Order Comment: Speci men Type: BLOOD SPECIMENOrdering Facility: [facility] Address: [address] [place] [address] Performed By: #### 5 7021-8 ####[facility] [id number] [place] [address] [place] Nucleated RBC/100 WBC (Bld) [Ratio] 0.0 /100 WBC Normal [facility] Comment on above: Order Comment: Speci men Type: BLOOD SPECIMENOrdering Facility: [facility] Address: [address] [place] [address] Performed By: #### 5 7021-8 ####[facility] NORTHDEXTERA [id number] [place] [address] [place] Platelet mean volume (Bld) [Entitic vol] 10.2 fL Normal 9.0-12.7 [facility] Comment on above: Order Comment: Speci men Type: BLOOD SPECIMENOrdering Facility: [facility] Address: [address] [place] [address] Performed By: #### 5 7021-8 ####[facility] NORTHLIA [id number] [place] [address] [place] Platelets (Bld) [#/Vol] 317 10*3/uL Normal 150-400 [facility] Comment on above: Order Comment: Speci men Type: BLOOD SPECIMENOrdering Facility: [facility] Address: [address] [place] [address] Performed By: #### 5 7021-8 ####[facility] WESTWNCLIA [id number] [place] [address] [place] RBC (Bld) [#/Vol] 3.85 10*6/uL Low 3.90-5.20 [facility] Comment on above: Order Comment: Speci men Type: BLOOD SPECIMENOrdering Facility: [facility] Address: [address] [place] [address] Performed By: #### 5 7021-8 ####[facility] [id number] [place] [address] [place] WBC (Bld) [#/Vol] 8.31 10*3/uL Normal 3.70-11.00 [facility] Comment on above: Order Comment: Speci men Type: BLOOD SPECIMENOrdering Facility: [facility] Address: [address] [place] [address] Performed By: #### 5 7021-8 ####[facility]NCL[facility] [id number] [place] [address] [place] CNOVSPon 04-08-2024 CNOVSP Visit (SP) Office (H EMAWS) -- KERRIE KEARNEY ([id number]) 1945 F Date Time Provider Department 04/08/24 [...] a month ago. recalls getting it at [facility]. Was living in [place]. Moved back to [place] early summer. Was admitted to [facility] for meningitis 12/2023. Transferred to [facility]. Course [...] which included preparing to see the patient, [id number] patient care, completing clinical documentation, obtaining and/or [...] BLOOD COUNT AND DIFFERENTIAL [SQCBCDIF] Order #: [id number] FUTURE IRON AND TIBC [SQIRON] Order #: [id number] FUTURE FERRITIN [SQFERR] Order #: [id number] FUTURE COMPREHENSIVE METABOLIC PANEL [SQCMP] Order #: [id number] FUTURE Follow-up and Disposition History for Encounter Date Pro (more content not included)... Normal [facility] metabolic 2000 panelOrdered By: Radha Mcadams on 04-08-2024 Albumin [Mass/Vol] 4.3 g/dL 3.9 - 4.9 g/dL [facility] ALP [Catalytic activity/Vol] 100 U/L 34 - 123 U/L [facility] ALT [Catalytic activity/Vol] 7 U/L 7 - 38 U/L [facility] Anion gap [Moles/Vol] 14 mmol/L 8 - 15 mmol/L [facility] AST [Catalytic activity/Vol] 11 U/L Low 13 - 35 U/L [facility] Bilirubin [Mass/Vol] 0.2 mg/dL 0.2 - 1 .3 mg/dL [facility] Calcium [Mass/Vol] 10.2 mg/dL 8.5 - 10. 2 mg/dL [facility] Chloride [Moles/Vol] 102 mmol/L 98 - 10 7 mmol/L [facility] CO2 [Moles/Vol] 20 mmol/L Low 22 - 30 mmol/L [facility] Creatinine [Mass/Vol] 1.17 mg/dL High 0.58 - 0.96 mg/dL [facility] GFR/1.73 sq M.predicted among non-blacks MDRD (S/P/Bld) [Vol rate/Area] 48 mL/min/{1.73_m2} Low - PINF [facility] Comment on above: Estimated Glomerular Filtration Rate [...] 215 mg/dL High 74 - 99 mg/dL [facility] Comment on above: The [place] Diabete s Association (ADA) provides guidance for [...] Standards of Medical Care in Diabetes 2016, [place] [employer] Association. Diabetes Care. 2016.39(Suppl 1). Interpretation and review of laboratory results Abnormal [facility] Potassium [Moles/Vol] 4.4 mmol/L 3.7 - 5.1 mmol/L [facility] Protein [Mass/Vol] 7.3 g/dL 6.3 - 8.0 g/dL [facility] Sodium [Moles/Vol] 136 mmol/L 136 - 144 mmol/L [facility] Urea nitrogen [Mass/Vol] 56 mg/dL High 7 - 21 mg/dL [facility] Comprehensive metabolic 2000 panelon 04-08-2024 Albumin [Mass/Vol] 4.3 g/dL Normal 3.9-4.9 [facility] Comment on above: Order Comment: Speci men Type: BLOOD SPECIMENOrdering Facility: [facility] Address: [address] [place] [address] Performed By: #### 2 4323-8 ####[facility] [id number] [place] [address] [place] ALP [Catalytic activity/Vol] 100 U/L Normal 34-123 [facility] Comment on above: Order Comment: Speci men Type: BLOOD SPECIMENOrdering Facility: [facility] Address: [address] [place] [address] Performed By: #### 2 4323-8 ####[facility] [id number] [place] [address] [place] ALT [Catalytic activity/Vol] 7 U/L Normal 7-38 [facility] Comment on above: Order Comment: Speci men Type: BLOOD SPECIMENOrdering Facility: [facility] Address: [address] [place] [address] Performed By: #### 2 4323-8 ####[facility] JONATHANWNCLIA [id number] [place] [address] [place] Anion gap [Moles/Vol] 14 mmol/L Normal 8-15 [facility] Comment on above: Order Comment: Speci men Type: BLOOD SPECIMENOrdering Facility: [facility] Address: [address] [place] [address] Performed By: #### 2 4323-8 ####[facility] [id number] [place] [address] [place] AST [Catalytic activity/Vol] 11 U/L Low 13-35 [facility] Comment on above: Order Comment: Speci men Type: BLOOD SPECIMENOrdering Facility: [facility] Address: [address] [place] [address] Performed By: #### 2 4323-8 ####[facility] [id number] [place] [address] [place] Bilirubin [Mass/Vol] 0.2 mg/dL Normal 0.2-1.3 [facility] Comment on above: Order Comment: Speci men Type: BLOOD SPECIMENOrdering Facility: [facility] Address: [address] [place] [address] Performed By: #### 2 4323-8 ####[facility]CL[facility] [id number] [place] [address] [place] Calcium [Mass/Vol] 10.2 mg/dL Normal 8.5-10.2 [facility] Comment on above: Order Comment: Speci men Type: BLOOD SPECIMENOrdering Facility: [facility] Address: [address] [place] [address] Performed By: #### 2 4323-8 ####[facility] MILLWNCLIA [id number] [place] [address] [place] Chloride [Moles/Vol] 102 mmol/L Normal 98-107 [facility] Comment on above: Order Comment: Speci men Type: BLOOD SPECIMENOrdering Facility: [facility] Address: [address] [place] [address] Performed By: #### 2 4323-8 ####[facility] [id number] [place] [address] [place] CO2 [Moles/Vol] 20 mmol/L Low 22-30 [facility] Comment on above: Order Comment: Speci men Type: BLOOD SPECIMENOrdering Facility: [facility] Address: [address] [place] [address] Performed By: #### 2 4323-8 ####[facility] NORTHLIA [id number] [place] [address] [place] Creatinine [Mass/Vol] 1.17 mg/dL High 0.58-0.96 [facility] Comment on above: Order Comment: Speci men Type: BLOOD SPECIMENOrdering Facility: [facility] Address: [address] [place] [address] Performed By: #### 2 4323-8 ####[facility] NORTHLIA [id number] [place] [address] [place] [facility] Creatinine and Glomerular filtration rate.predicted panel (S/P/Bld) 48 mL/min/1.73m??? Low >=60 [facility] Comment on above: Order Comment: Speci men Type: BLOOD SPECIMENOrdering Facility: [facility] Address: [address] [place] [address] Result Comment: Isabella mated Glomerular Filtration Rate [...] actual GFR. Performed By: #### 2 4323-8 ####[facility]WBRITTANYLIA [id number] [place] [address] [place] Glucose [Mass/Vol] 215 mg/dL High 74-99 [facility] Comment on above: Order Comment: Speci men Type: BLOOD SPECIMENOrdering Facility: [facility] Address: [address] [place], [place] [address] Result Comment: The [place] Diabetes Association (ADA) provides guidance for cutoff [...] Standards of Medical Care in Diabetes 2016, [place] Diabetes Association. Diabetes Care. 2016.39(Suppl 1). Performed By: #### 2 4323-8 ####[facility] NORTHL[facility] [id number] [place] [address] [place] Potassium [Moles/Vol] 4.4 mmol/L Normal 3.7-5.1 [facility] Comment on above: Order Comment: Speci men Type: BLOOD SPECIMENOrdering Facility: [facility] Address: [address] [place] [address] Performed By: #### 2 4323-8 ####[facility]WNCL[facility] [id number] [place] [address] [place] Protein [Mass/Vol] 7.3 g/dL Normal 6.3-8.0 [facility] Comment on above: Order Comment: Speci men Type: BLOOD SPECIMENOrdering Facility: [facility] Address: [address] [place] [address] Performed By: #### 2 4323-8 ####[facility] [id number] [place] [address] [place] Sodium [Moles/Vol] 136 mmol/L Normal 136-144 [facility] Comment on above: Order Comment: Speci men Type: BLOOD SPECIMENOrdering Facility: [facility] Address: [address] [place] [address] Performed By: #### 2 4323-8 ####[facility] [id number] [place] [address] [place] Urea nitrogen [Mass/Vol] 56 mg/dL High 7-21 [facility] Comment on above: Order Comment: Speci men Type: BLOOD SPECIMENOrdering Facility: [facility] Address: [address] [place] [address] Performed By: #### 2 4323-8 ####[facility] [id number] [place] [address] [place] Ferritin SerPl-mCncon 2023 Ferritin [Mass/Vol] 9.4 ng/mL Low 14.7-205.1 [facility] Comment on above: Order Comment: Speci men Type: BLOOD SPECIMENOrdering Facility: [facility] Address: [address] [place] [address] Performed By: #### 2 276-4, 88858-9 ####[facility] LABCLIA [id number] [place] [address] [place] Iron and Iron binding capaci ty panelon 04-08-2024 Iron [Mass/Vol] 20 ug/dL Low 41-186 [facility] Comment on above: Order Comment: Speci men Type: BLOOD SPECIMENOrdering Facility: [facility] Address: [address] [place], [place] [address] Performed By: #### 2 276-4, 53707-6 ####[facility] LABCLIA [id number] [place] [address] [place] Iron binding capacity [Mass/Vol] 444 ug/dL High 232-386 [facility] Comment on above: Order Comment: Speci men Type: BLOOD SPECIMENOrdering Facility: [facility] Address: [address] [place] [address] Performed By: #### 2 276-4, 24168-5 ####[facility] LABCLIA [id number] [place] [address] [place] Iron/TIBC [Molar ratio] 4.5 % Low 15.0-57.0 [facility] Comment on above: Order Comment: Speci men Type: BLOOD SPECIMENOrdering Facility: [facility] Address: [address] [place] [address] Performed By: #### 2 276-4, 26143-0 ####[facility] LABIA [id number] [place] [address] [place] Basic Metabolic Profile (BMP )on 02-07-2024 BUN/CRE 11.8 RATIO Normal 10-20 [facility] Comment on above: Order Comment: 211.1 Performed By: #### L 500.2500, L100.0500 ####[facility] [address] [place], [address] CA,Total 9.4 mg/dL Normal 8.5-10.1 [facility] Comment on above: Order Comment: 211.1 Performed By: #### L 500.2500, L100.0500 ####[facility] [address] [place], [address] Chloride [Moles/Vol] 109 mmol/L High 98-107 [facility] Comment on above: Order Comment: 211.1 Performed By: #### L 500.2500, L100.0500 ####[facility] [address] [place], [address] CO2 [Moles/Vol] 29.0 mmol/L Normal 21.0-32.0 [facility] Comment on above: Order Comment: . Performed By: #### L 500.2500, L100.0500 ####[facility] [address] [place], [address] Creatinine [Mass/Vol] 1.02 mg/dL Normal 0.55-1.02 [facility] Comment on above: Order Comment: .1 Result Comment: The validity of the calculated GFR GFRAA in patients over70 years has not been determined. Clinical correlation isessential. Performed By: #### L 500.2500, L100.0500 ####[facility] [address] [place], [address] EST GFR - AA 68 mL/min Normal >60 [facility] Comment on above: Order Comment: .1 Result Comment: Afri can Egyptian GFR Calc Performed By: #### L 500.2500, L100.0500 ####[facility] [address] [place], [address] GAP 4 Low 5-15 [facility] [facility] Comment on above: Order Comment: . Performed By: #### L 500.2500, L100.0500 ####[facility] [address] [place], [address] GFR/1.73 sq M.predicted among non-blacks MDRD (S/P/Bld) [Vol rate/Area] 56 mL/min/{1.73_m2} Low >60 [facility] Comment on above: Order Comment: 211.1 Result Comment: Non- GFR Calc Performed By: #### L 500.2500, L100.0500 ####[facility] [address] [place], [address] Glucose [Mass/Vol] 168 mg/dL High 74-106 [facility] Comment on above: Order Comment: 211.1 Result Comment: Fast ing Glucose result greater than or equal to 126 mg/dLsuggests DIABETES MELLITUS per A.D.A. criteria. Performed By: #### L 500.2500, L100.0500 ####[facility] [address] [place], [address] Potassium [Moles/Vol] 3.9 mmol/L Normal 3.5-5.1 [facility] Comment on above: Order Comment: . Performed By: #### L 500.2500, L100.0500 ####[facility] [address] [place], [address] Sodium [Moles/Vol] 142 mmol/L Normal 136-145 [facility] Comment on above: Order Comment: . Performed By: #### L 500.2500, L100.0500 ####[facility] [address] [place], [address] Urea nitrogen [Mass/Vol] 12 mg/dL Normal 7-18 [facility] Comment on above: Order Comment: . Performed By: #### L 500.2500, L100.0500 ####[facility] [address] [place], [address] CBC-Complete Blood Cnt No Di ffon 02-07-2024 Erythrocyte distribution width (RBC) [Ratio] 13.2 % Normal 11.6-14.6 [facility] Comment on above: Order Comment: 211. Performed By: #### L 500.2500, L100.0500 ####[facility] [address] [place], [address] Hematocrit (Bld) [Volume fraction] 29.9 % Low 37-47 [facility] Comment on above: Order Comment: 211.1 Performed By: #### L 500.2500, L100.0500 ####[facility] [address] [place], [address] Hemoglobin (Bld) [Mass/Vol] 9.1 g/dL Low 12.0-15.0 [facility] Comment on above: Order Comment: 211.1 Performed By: #### L 500.2500, L100.0500 ####[facility] [address] [place], [address] MCH (RBC) [Entitic mass] 27.2 pg Normal 27.0-32.0 [facility] Comment on above: Order Comment: 211.1 Performed By: #### L 500.2500, L100.0500 ####[facility] [address] [place], [address] MCHC (RBC) [Mass/Vol] 30.4 g/dL Low 32-36 [facility] Comment on above: Order Comment: 211.1 Performed By: #### L 500.2500, L100.0500 ####[facility] [address] [place], [address] MCV (RBC) [Entitic vol] 89.3 fL Normal 81-99 [facility] Comment on above: Order Comment: 211.1 Performed By: #### L 500.2500, L100.0500 ####[facility] [address] [place], [address] Platelet mean volume (Bld) [Entitic vol] 10.5 fL Normal 6.2-12.0 [facility] Comment on above: Order Comment: 211.1 Performed By: #### L 500.2500, L100.0500 ####[facility] [address] [place], [address] Platelets (Bld) [#/Vol] 359 10*3/uL Normal 150-450 [facility] Comment on above: Order Comment: 211.1 Performed By: #### L 500.2500, L100.0500 ####[facility] [address] [place], [address] RBC (Bld) [#/Vol] 3.35 10*6/uL Low 4.2-5.4 [facility] Comment on above: Order Comment: 211. Performed By: #### L 500.2500, L100.0500 ####[facility] [address] [place], [address] RDW SD 43.1 fl Normal 35.1-43.9 [facility] Comment on above: Order Comment: . Performed By: #### L 500.2500, L100.0500 ####[facility] [address] [place], [address] WBC (Bld) [#/Vol] 5.7 10*3/uL Normal 4.4-11.0 [facility] Comment on above: Order Comment: . Performed By: #### L 500.2500, L100.0500 ####[facility] [address] [place], [address] Basic Metabolic Profile (BMP )on 01-31-2024 BUN/CRE 12.4 RATIO Normal 10-20 [facility] Comment on above: Performed By: #### L 100.0500, L500.2500 ####[facility] [address] [place], [address] CA,Total 8.9 mg/dL Normal 8.5-10.1 [facility] Comment on above: Performed By: #### L 100.0500, L500.2500 ####[facility] [address] [place], [address] Chloride [Moles/Vol] 104 mmol/L Normal 98-107 [facility] Comment on above: Performed By: #### L 100.0500, L500.2500 ####[facility] [address] [place], [address] CO2 [Moles/Vol] 28.0 mmol/L Normal 21.0-32.0 [facility] Comment on above: Performed By: #### L 100.0500, L500.2500 ####[facility] [address] [place], [address] Creatinine [Mass/Vol] 1.21 mg/dL High 0.55-1.02 [facility] Comment on above: Result Comment: The validity of the calculated GFR GFRAA in patients over70 years has not been determined. Clinical correlation isessential. Performed By: #### L 100.0500, L500.2500 ####[facility] [address] [place], [address] EST GFR - AA 56 mL/min Low >60 [facility] Comment on above: Result Comment: Afri can Egyptian GFR Calc Performed By: #### L 100.0500, L500.2500 ####[facility] [address] [place], [address] GAP 6 Normal 5-15 [facility] Comment on above: Performed By: #### L 100.0500, L500.2500 ####[facility] [address] [place], [address] GFR/1.73 sq M.predicted among non-blacks MDRD (S/P/Bld) [Vol rate/Area] 46 mL/min/{1.73_m2} Low >60 [facility] Comment on above: Result Comment: Non- GFR Calc Performed By: #### L 100.0500, L500.2500 ####[facility] [address] [place], [address] Glucose [Mass/Vol] 177 mg/dL High 74-106 [facility] Comment on above: Result Comment: Fast ing Glucose result greater than or equal to 126 mg/dLsuggests DIABETES MELLITUS per A.D.A. criteria. Performed By: #### L 100.0500, L500.2500 ####[facility] [address] [place], [address] Potassium [Moles/Vol] 3.9 mmol/L Normal 3.5-5.1 [facility] Comment on above: Performed By: #### L 100.0500, L500.2500 ####[facility] [address] [place], [address] Sodium [Moles/Vol] 138 mmol/L Normal 136-145 [facility] Comment on above: Performed By: #### L 100.0500, L500.2500 ####[facility] [address] [place], [address] Urea nitrogen [Mass/Vol] 15 mg/dL Normal 7-18 [facility] Comment on above: Performed By: #### L 100.0500, L500.2500 ####[facility] [address] [place], [address] CBC-Complete Blood Cnt No Di ffon 01-31-2024 Erythrocyte distribution width (RBC) [Ratio] 13.2 % Normal 11.6-14.6 [facility] Comment on above: Performed By: #### L 100.0500, L500.2500 ####[facility] [address] [place], [address] Hematocrit (Bld) [Volume fraction] 27.1 % Low 37-47 [facility] Comment on above: Performed By: #### L 100.0500, L500.2500 ####[facility] [address] [place], [address] Hemoglobin (Bld) [Mass/Vol] 8.3 g/dL Low 12.0-15.0 [facility] Comment on above: Performed By: #### L 100.0500, L500.2500 ####[facility] [address] [place], [address] MCH (RBC) [Entitic mass] 27.4 pg Normal 27.0-32.0 [facility] Comment on above: Performed By: #### L 100.0500, L500.2500 ####[facility] [address] [place], [address] MCHC (RBC) [Mass/Vol] 30.6 g/dL Low 32-36 [facility] Comment on above: Performed By: #### L 100.0500, L500.2500 ####[facility] [address] [place], [address] MCV (RBC) [Entitic vol] 89.4 fL Normal 81-99 [facility] Comment on above: Performed By: #### L 100.0500, L500.2500 ####[facility] [address] [place], [address] Platelet mean volume (Bld) [Entitic vol] 10.4 fL Normal 6.2-12.0 [facility] Comment on above: Performed By: #### L 100.0500, L500.2500 ####[facility] [address] [place], [address] Platelets (Bld) [#/Vol] 337 10*3/uL Normal 150-450 [facility] Comment on above: Performed By: #### L 100.0500, L500.2500 ####[facility] [address] [place], [address] RBC (Bld) [#/Vol] 3.03 10*6/uL Low 4.2-5.4 [facility] Comment on above: Performed By: #### L 100.0500, L500.2500 ####[facility] [address] [place], [address] RDW SD 42.4 fl Normal 35.1-43.9 [facility] Comment on above: Performed By: #### L 100.0500, L500.2500 ####[facility] [address] [place], [address] WBC (Bld) [#/Vol] 8.1 10*3/uL Normal 4.4-11.0 [facility] Comment on above: Performed By: #### L 100.0500, L500.2500 ####[facility] [address] [place], [address] BASIC METABOLIC PANELon - Anion gap [Moles/Vol] 11 mmol/L 7 - 17 mmol/L [facility] Calcium [Mass/Vol] 8.6 mg/dL 8.6 - 10. 5 mg/dL [facility] Chloride [Moles/Vol] 101 mmol/L 98 - 10 8 mmol/L [facility] CO2 [Moles/Vol] 26 mmol/L 21 - 31 mmol/L [facility] Creatinine [Mass/Vol] 1.19 mg/dL 0.50 - 1.20 mg/dL [facility] eGFR, CKD-EPI, Female 47 Low - PINF [facility] Glucose [Mass/Vol] 231 mg/dL High 70 - 99 mg/dL [facility] Interpretation and review of laboratory results Abnormal [facility] Osmolality Calc [Osmolality] 292 [facility] Potassium [Moles/Vol] 4.0 mmol/L 3.5 - 5.0 mmol/L [facility] Sodium [Moles/Vol] 134 mmol/L Low 135 - 145 mmol/L [facility] Urea nitrogen [Mass/Vol] 18 mg/dL 7 - 25 mg/dL [facility] Urea nitrogen/Creatinine [Mass ratio] 15 mg/mg [facility] Anion gap [Moles/Vol] 11 mmol/L Normal 7-17 [facility] Comment on above: Performed By: #### B FLD #### [facility] (DEFAULT) [address] [place] [address] Calcium [Mass/Vol] 8.6 mg/dL Normal 8.6-10.5 [facility] Comment on above: Performed By: #### B FLD #### [facility] (DEFAULT) [address] [place] [address] Chloride [Moles/Vol] 101 mmol/L Normal 98-108 [facility] Comment on above: Performed By: #### B FLD #### [facility] (DEFAULT) [address] [place] [address] CO2 [Moles/Vol] 26 mmol/L Normal 21-31 [facility] Comment on above: Performed By: #### Genia FLD #### [facility] (DEFAULT) [address] [place] [address] Creatinine [Mass/Vol] 1.19 mg/dL Normal 0.50-1.20 [facility] Comment on above: Performed By: #### B FLD #### [facility] (DEFAULT) [address] [place] [address] GFR/1.73 sq M.predicted among non-blacks MDRD (S/P/Bld) [Vol rate/Area] 47 mL/min/{1.73_m2} Low >=60 [facility] Comment on above: Result Comment: Repo rted eGFR is based on the CKD-EPI 2020 equation using creatinine, age, and sex. Performed By: #### B FLD #### [facility] (DEFAULT) [address] [place] [address] Glucose [Mass/Vol] 231 mg/dL High 70-99 [facility] Comment on above: Performed By: #### B FLD #### [facility] (DEFAULT) [address] [address] Osmolality [Osmolality] 292 mosm/kg Normal 278-305 [facility] Comment on above: Performed By: #### B FLD #### [facility] (DEFAULT) [address] [address] Potassium [Moles/Vol] 4.0 mmol/L Normal 3.5-5.0 [facility] Comment on above: Performed By: #### B FLD #### [facility] (DEFAULT) [address] [place] [address] Sodium [Moles/Vol] 134 mmol/L Low 135-145 [facility] Comment on above: Performed By: #### B FLD #### [facility] (DEFAULT) [address] [place] [address] Urea nitrogen [Mass/Vol] 18 mg/dL Normal 7-25 [facility] Comment on above: Performed By: #### B FLD #### [facility] (DEFAULT) [address] [place] [address] Urea nitrogen/Creatinine [Mass ratio] 15 mg/mg Normal [facility] Comment on above: Performed By: #### B FLD #### [facility] (DEFAULT) [address] [place] [address] CBC,PLATELETSon 01-30-2024 Erythrocyte distribution width (RBC) [Ratio] 13.0 % 10.8 - 14.9 % [facility] Hematocrit (Bld) [Volume fraction] 29.7 % Low 34.9 - 44.3 % [facility] Hemoglobin (Bld) [Mass/Vol] 9.1 g/dL Low 11.4 - 15.2 g/dL [facility] Interpretation and review of laboratory results Abnormal [facility] MCH (RBC) [Entitic mass] 27.4 pg 25.9 - 33.9 pg [facility] MCHC (RBC) [Mass/Vol] 30.6 g/dL Low 31.4 - 35.9 g/dL [facility] MCV (RBC) [Entitic vol] 89.5 fL 79.6 - 97.7 fL [facility] Platelet mean volume (Bld) [Entitic vol] 10.8 fL 8.5 - 12.2 fL [facility] Platelets (Bld) [#/Vol] 343 10*3/uL 150 - 393 K/uL [facility] RBC (Bld) [#/Vol] 3.32 10*6/uL Low [facility] WBC (Bld) [#/Vol] 9.55 10*3/uL 3.99 - 11. 19 K/uL [facility] Hematocrit (Bld) [Volume fraction] 29.7 % Low 34.9-44.3 [facility] Comment on above: Performed By: #### S URGP #### [facility] (DEFAULT) [address] [address] Hemoglobin (Bld) [Mass/Vol] 9.1 g/dL Low 11.4-15.2 [facility] Comment on above: Performed By: #### S URGP #### [facility] (DEFAULT) [address] [address] MCV (RBC) [Entitic vol] 89.5 fL Normal 79.6-97.7 [facility] Comment on above: Performed By: #### S URGP #### [facility] (DEFAULT) [address] [address] Mean Cell Hgb 27.4 pg Normal 25.9-33.9 [facility] Comment on above: Performed By: #### S URGP #### [facility] (DEFAULT) [address] [address] Mean Cell Hgb Conc 30.6 g/dL Low 31.4-35.9 [facility] Comment on above: Performed By: #### S URGP #### [facility] (DEFAULT) [address] [address] Platelet mean volume (Bld) [Entitic vol] 10.8 fL Normal 8.5-12.2 [facility] Comment on above: Performed By: #### S URGP #### [facility] (DEFAULT) [address] [address] Platelets (Bld) [#/Vol] 343 10*3/uL Normal 150-393 [facility] Comment on above: Performed By: #### S URGP #### [facility] (DEFAULT) [address] [place] [address] RBC (Bld) [#/Vol] 3.32 10*6/uL Low 3.91-5.04 [facility] Comment on above: Performed By: #### S URGP #### [facility] (DEFAULT) [address] [place] [address] RBC Distribution 13.0 % Normal 10.8-14.9 [facility] Comment on above: Performed By: #### S URGP #### [facility] (DEFAULT) [address] [place] [address] WBC (Bld) [#/Vol] 9.55 10*3/uL Normal 3.99-11.19 [facility] Comment on above: Performed By: #### S URGP #### [facility] (DEFAULT) [address] [place] [address] GLUCOSE POCon 01-30-2024 Glucose [Mass/Vol] 227 mg/dL High 70 - 99 mg/dL [facility] Interpretation and review of laboratory results Abnormal [facility] POC Sample Type CAPBL [facility] Glucose [Mass/Vol] 225 mg/dL High 70 - 99 mg/dL [facility] Interpretation and review of laboratory results Abnormal [facility] POC Sample Type CAPBL [facility] MAGNESIUMon 01-30-2024 Interpretation and review of laboratory results Normal [facility] Magnesium [Mass/Vol] 1.6 mg/dL 1.6 - 2 .6 mg/dL [facility] Magnesium [Mass/Vol] 1.6 mg/dL Normal 1.6-2.6 [facility] Comment on above: Performed By: #### S URGP #### [facility] (DEFAULT) [address] [place] [address] No Panel Informationon 01-29 [facility] BASIC METABOLIC PANELon 01-13 Anion gap [Moles/Vol] 12 mmol/L 7 - 17 mmol/L [facility] Calcium [Mass/Vol] 8.3 mg/dL Low 8.6 - 10. 5 mg/dL [facility] Chloride [Moles/Vol] 104 mmol/L 98 - 10 8 mmol/L [facility] CO2 [Moles/Vol] 26 mmol/L 21 - 31 mmol/L [facility] Creatinine [Mass/Vol] 1.30 mg/dL High 0.50 - 1.20 mg/dL [facility] eGFR, CKD-EPI, Female 43 Low - PINF [facility] Glucose [Mass/Vol] 240 mg/dL High 70 - 99 mg/dL [facility] Interpretation and review of laboratory results Abnormal [facility] Osmolality Calc [Osmolality] 300 [facility] Potassium [Moles/Vol] 3.8 mmol/L 3.5 - 5.0 mmol/L [facility] Sodium [Moles/Vol] 138 mmol/L 135 - 145 mmol/L [facility] Urea nitrogen [Mass/Vol] 18 mg/dL 7 - 25 mg/dL [facility] Urea nitrogen/Creatinine [Mass ratio] 14 mg/mg [facility] Anion gap [Moles/Vol] 12 mmol/L Normal 7-17 [facility] Comment on above: Performed By: #### José 7C, MGO #### [facility] (DEFAULT) [address] [place] [address] Calcium [Mass/Vol] 8.3 mg/dL Low 8.6-10.5 [facility] Comment on above: Performed By: #### José 7C, MGO #### [facility] (DEFAULT) [address] [place] [address] Chloride [Moles/Vol] 104 mmol/L Normal 98-108 [facility] Comment on above: Performed By: #### José Quiñones, MGO #### [facility] (DEFAULT) [address] [place] [address] CO2 [Moles/Vol] 26 mmol/L Normal 21-31 [facility] Comment on above: Performed By: #### José Quiñones, MGO #### [facility] (DEFAULT) [address] [place] [address] Creatinine [Mass/Vol] 1.30 mg/dL High 0.50-1.20 [facility] Comment on above: Performed By: #### José Quiñones, MGO #### [facility] (DEFAULT) [address] [place] [address] GFR/1.73 sq M.predicted among non-blacks MDRD (S/P/Bld) [Vol rate/Area] 43 mL/min/{1.73_m2} Low >=60 [facility] Comment on above: Result Comment: Repo rted eGFR is based on the CKD-EPI 2020 equation using creatinine, age, and sex. Performed By: #### José Quiñones, MGO #### [facility] (DEFAULT) [address] [place] [address] Glucose [Mass/Vol] 240 mg/dL High 70-99 [facility] Comment on above: Performed By: #### José Quiñones, MGO #### [facility] (DEFAULT) [address] [place] [address] Osmolality [Osmolality] 300 mosm/kg Normal 278-305 [facility] Comment on above: Performed By: #### José Quiñones, MGO #### [facility] (DEFAULT) [address] [place] [address] Potassium [Moles/Vol] 3.8 mmol/L Normal 3.5-5.0 [facility] Comment on above: Performed By: #### C 7C, MGO #### [facility] (DEFAULT) [address] [place] [address] Sodium [Moles/Vol] 138 mmol/L Normal 135-145 [facility] Comment on above: Performed By: #### C 7C, MGO #### [facility] (DEFAULT) [address] [place] [address] Urea nitrogen [Mass/Vol] 18 mg/dL Normal 7-25 [facility] Comment on above: Performed By: #### C 7C, MGO #### [facility] (DEFAULT) [address] [place] [address] Urea nitrogen/Creatinine [Mass ratio] 14 mg/mg Normal [facility] Comment on above: Performed By: #### C 7C, MGO #### [facility] (DEFAULT) [address] [place] [address] GLUCOSE POCon 01-29-2024 Glucose [Mass/Vol] 213 mg/dL High 70 - 99 mg/dL [facility] Interpretation and review of laboratory results Abnormal [facility] POC Sample Type CAPBL [facility] Glucose [Mass/Vol] 164 mg/dL High 70 - 99 mg/dL [facility] Interpretation and review of laboratory results Abnormal [facility] POC Sample Type CAPBL [facility] Glucose [Mass/Vol] 191 mg/dL High 70 - 99 mg/dL [facility] Interpretation and review of laboratory results Abnormal [facility] POC Sample Type CAPBL [facility] Glucose [Mass/Vol] 231 mg/dL High 70 - 99 mg/dL [facility] Interpretation and review of laboratory results Abnormal [facility] POC Sample Type CAPBL [facility] MAGNESIUMon 01-29-2024 Interpretation and review of laboratory results Normal [facility] Magnesium [Mass/Vol] 1.6 mg/dL 1.6 - 2 .6 mg/dL [facility] Magnesium [Mass/Vol] 1.6 mg/dL Normal 1.6-2.6 [facility] Comment on above: Performed By: #### C 7C, MGO #### [facility] (DEFAULT) [address] [place] [id number] BASIC METABOLIC PANELon 01-13 Anion gap [Moles/Vol] 12 mmol/L 7 - 17 mmol/L [facility] Calcium [Mass/Vol] 8.5 mg/dL Low 8.6 - 10. 5 mg/dL [facility] Chloride [Moles/Vol] 103 mmol/L 98 - 10 8 mmol/L [facility] CO2 [Moles/Vol] 26 mmol/L 21 - 31 mmol/L [facility] Creatinine [Mass/Vol] 1.15 mg/dL 0.50 - 1.20 mg/dL [facility] eGFR, CKD-EPI, Female 49 Low - PINF [facility] Glucose [Mass/Vol] 221 mg/dL High 70 - 99 mg/dL [facility] Interpretation and review of laboratory results Abnormal [facility] Osmolality Calc [Osmolality] 295 [facility] Potassium [Moles/Vol] 4.0 mmol/L 3.5 - 5.0 mmol/L [facility] Sodium [Moles/Vol] 137 mmol/L 135 - 145 mmol/L [facility] Urea nitrogen [Mass/Vol] 14 mg/dL 7 - 25 mg/dL [facility] Urea nitrogen/Creatinine [Mass ratio] 12 mg/mg [facility] Anion gap [Moles/Vol] 12 mmol/L Normal 7-17 [facility] Comment on above: Performed By: #### M GO, CHM7, HFP #### [facility] (DEFAULT) [address] [place] [address] Calcium [Mass/Vol] 8.5 mg/dL Low 8.6-10.5 [facility] Comment on above: Performed By: #### LYN MALONEY, HFP #### [facility] (DEFAULT) [address] [place] [address] Chloride [Moles/Vol] 103 mmol/L Normal 98-108 [facility] Comment on above: Performed By: #### LYN MALONEY, HFP #### [facility] (DEFAULT) [address] [place] [address] CO2 [Moles/Vol] 26 mmol/L Normal 21-31 [facility] Comment on above: Performed By: #### LYN MALONEY, HFP #### [facility] (DEFAULT) [address] [place] [address]957 Creatinine [Mass/Vol] 1.15 mg/dL Normal 0.50-1.20 [facility] Comment on above: Performed By: #### LYN MALONEY, HFP #### [facility] (DEFAULT) [address] [place] [address]645 GFR/1.73 sq M.predicted among non-blacks MDRD (S/P/Bld) [Vol rate/Area] 49 mL/min/{1.73_m2} Low >=60 [facility] Comment on above: Result Comment: Repo rted eGFR is based on the CKD-EPI 2020 equation using creatinine, age, and sex. Performed By: #### LYN MALONEY, HFP #### [facility] (DEFAULT) [address] [place] [address] Glucose [Mass/Vol] 221 mg/dL High 70-99 [facility] Comment on above: Performed By: #### LYN MALONEY, HFP #### [facility] (DEFAULT) [address] [place] [address]907 Osmolality [Osmolality] 295 mosm/kg Normal 278-305 [facility] Comment on above: Performed By: #### LYN MALONEY, HFP #### [facility] (DEFAULT) [address] [place] [address] Potassium [Moles/Vol] 4.0 mmol/L Normal 3.5-5.0 [facility] Comment on above: Performed By: #### SILVIA MALONEY7, HFP #### [facility] (DEFAULT) [address] [place] [address] Sodium [Moles/Vol] 137 mmol/L Normal 135-145 [facility] Comment on above: Performed By: #### LYN MALONEY, HFP #### [facility] (DEFAULT) [address] [place] [address] Urea nitrogen [Mass/Vol] 14 mg/dL Normal 7-25 [facility] Comment on above: Performed By: #### LYN MALONEY, HFP #### [facility] (DEFAULT) [address] [place] [address]50 Urea nitrogen/Creatinine [Mass ratio] 12 mg/mg Normal [facility] Comment on above: Performed By: #### LYN MALONEY, HFP #### [facility] (DEFAULT) [address] [place] [address]31 CBC,PLATELETSon 01-28-2024 Erythrocyte distribution width (RBC) [Ratio] 12.8 % 10.8 - 14.9 % [facility] Hematocrit (Bld) [Volume fraction] 31.7 % Low 34.9 - 44.3 % [facility] Hemoglobin (Bld) [Mass/Vol] 10.0 g/dL Low 11.4 - 15.2 g/dL [facility] Interpretation and review of laboratory results Abnormal [facility] MCH (RBC) [Entitic mass] 28.2 pg 25.9 - 33.9 pg [facility] MCHC (RBC) [Mass/Vol] 31.5 g/dL 31.4 - 35.9 g/dL [facility] MCV (RBC) [Entitic vol] 89.3 fL 79.6 - 97.7 fL [facility] Platelet mean volume (Bld) [Entitic vol] 10.5 fL 8.5 - 12.2 fL [facility] Platelets (Bld) [#/Vol] 362 10*3/uL 150 - 393 K/uL [facility] RBC (Bld) [#/Vol] 3.55 10*6/uL Low [facility] WBC (Bld) [#/Vol] 7.66 10*3/uL 3.99 - 11. 19 K/uL [facility] Hematocrit (Bld) [Volume fraction] 31.7 % Low 34.9-44.3 [facility] Comment on above: Performed By: #### José 7C, MGO #### [facility] (DEFAULT) [address] [address] Hemoglobin (Bld) [Mass/Vol] 10.0 g/dL Low 11.4-15.2 [facility] Comment on above: Performed By: #### José 7C, MGO #### [facility] (DEFAULT) [address] [address] MCV (RBC) [Entitic vol] 89.3 fL Normal 79.6-97.7 [facility] Comment on above: Performed By: #### C 7C, MGO #### [facility] (DEFAULT) [address] [place] [address]697 Mean Cell Hgb 28.2 pg Normal 25.9-33.9 [facility] Comment on above: Performed By: #### C 7C, MGO #### [facility] (DEFAULT) [address] [place] [address] 67784 Mean Cell Hgb Conc 31.5 g/dL Normal 31.4-35.9 [facility] Comment on above: Performed By: #### C 7C, MGO #### [facility] (DEFAULT) [address] [place] [address]19 Platelet mean volume (Bld) [Entitic vol] 10.5 fL Normal 8.5-12.2 [facility] Comment on above: Performed By: #### José Quiñones, MGO #### [facility] (DEFAULT) [address] [place] [address] 86053 Platelets (Bld) [#/Vol] 362 10*3/uL Normal 150-393 [facility] Comment on above: Performed By: #### José 7C, MGO #### [facility] (DEFAULT) [address] [place] [address] 12427 RBC (Bld) [#/Vol] 3.55 10*6/uL Low 3.91-5.04 [facility] Comment on above: Performed By: #### José 7C, MGO #### [facility] (DEFAULT) [address] [place] [address] 12895 RBC Distribution 12.8 % Normal 10.8-14.9 [facility] Comment on above: Performed By: #### José Quiñones, MGO #### [facility] (DEFAULT) [address] [place] [address] 10162 WBC (Bld) [#/Vol] 7.66 10*3/uL Normal 3.99-11.19 [facility] Comment on above: Performed By: #### José 7C, MGO #### [facility] (DEFAULT) [address] [place] [address] GLUCOSE POCon 01-28-2024 Glucose [Mass/Vol] 234 mg/dL High 70 - 99 mg/dL [facility] Interpretation and review of laboratory results Abnormal [facility] POC Sample Type CAPBL [facility] Glucose [Mass/Vol] 193 mg/dL High 70 - 99 mg/dL [facility] Glucose [Mass/Vol] 185 mg/dL High 70 - 99 mg/dL [facility] Glucose [Mass/Vol] 195 mg/dL High 70 - 99 mg/dL [facility] Interpretation and review of laboratory results Abnormal [facility] Glucose [Mass/Vol] 202 mg/dL High 70 - 99 mg/dL [facility] Glucose [Mass/Vol] 258 mg/dL High 70 - 99 mg/dL [facility] MAGNESIUMon 01-28-2024 Interpretation and review of laboratory results Normal [facility] Magnesium [Mass/Vol] 1.9 mg/dL 1.6 - 2 .6 mg/dL [facility] Magnesium [Mass/Vol] 1.9 mg/dL Normal 1.6-2.6 [facility] Comment on above: Performed By: #### M GIOVANNI, M7, HFP #### [facility] (DEFAULT) [address] [place] [address] No Panel Informationon 01-27 Interpretation and review of laboratory results Abnormal [facility] POC Sample Type [facility] Interpretation and review of laboratory results Abnormal [facility] POC Sample Type [facility] BASIC METABOLIC PANELon 01-13 Anion gap [Moles/Vol] 9 mmol/L 7 - 17 mmol/L [facility] Calcium [Mass/Vol] 8.3 mg/dL Low 8.6 - 10. 5 mg/dL [facility] Chloride [Moles/Vol] 105 mmol/L 98 - 10 8 mmol/L [facility] CO2 [Moles/Vol] 28 mmol/L 21 - 31 mmol/L [facility] Creatinine [Mass/Vol] 1.03 mg/dL 0.50 - 1.20 mg/dL [facility] eGFR, CKD-EPI, Female 56 Low - PINF [facility] Glucose [Mass/Vol] 143 mg/dL High 70 - 99 mg/dL [facility] Osmolality Calc [[facility]olality] [facility] Potassium [Moles/Vol] 3.9 mmol/L 3.5 - 5.0 mmol/L [facility] Sodium [Moles/Vol] 138 mmol/L 135 - 145 mmol/L [facility] Urea nitrogen [Mass/Vol] 12 mg/dL 7 - 25 mg/dL [facility] Urea nitrogen/Creatinine [Mass ratio] 12 mg/mg [facility] Anion gap [Moles/Vol] 9 mmol/L Normal 7-17 [facility] Comment on above: Performed By: #### T YPEC #### [facility] (DEFAULT) [address] [address] Calcium [Mass/Vol] 8.3 mg/dL Low 8.6-10.5 [facility] Comment on above: Performed By: #### T YPEC #### [facility] (DEFAULT) [address] [address] Chloride [Moles/Vol] 105 mmol/L Normal 98-108 [facility] Comment on above: Performed By: #### T YPEC #### [facility] (DEFAULT) [address] [place] [address] 26556 CO2 [Moles/Vol] 28 mmol/L Normal 21-31 [facility] Comment on above: Performed By: #### T YPEC #### [facility] (DEFAULT) [address] [address] Creatinine [Mass/Vol] 1.03 mg/dL Normal 0.50-1.20 [facility] Comment on above: Performed By: #### T YPEC #### [facility] (DEFAULT) [address] [address] GFR/1.73 sq M.predicted among non-blacks MDRD (S/P/Bld) [Vol rate/Area] 56 mL/min/{1.73_m2} Low >=60 [facility] Comment on above: Result Comment: Repo rted eGFR is based on the CKD-EPI 2021 equation using creatinine, age, and sex. Performed By: #### T YPEC #### [facility] (DEFAULT) [address] [place] [address] Glucose [Mass/Vol] 143 mg/dL High 70-99 [facility] Comment on above: Performed By: #### T YPEC #### [facility] (DEFAULT) [address] [place] [address] 9[address]61 Osmolality [Osmolality] 291 mosm/kg Normal 278-305 [facility] Comment on above: Performed By: #### T YPEC #### [facility] (DEFAULT) [address] [place] [address]645 Potassium [Moles/Vol] 3.9 mmol/L Normal 3.5-5.0 [facility] Comment on above: Performed By: #### T YPEC #### [facility] (DEFAULT) [address] [place] [address]27 Sodium [Moles/Vol] 138 mmol/L Normal 135-145 [facility] Comment on above: Performed By: #### T YPEC #### [facility] (DEFAULT) [address] [place] [address] 23095 Urea nitrogen [Mass/Vol] 12 mg/dL Normal 7-25 [facility] Comment on above: Performed By: #### T YPEC #### [facility] (DEFAULT) [address] [place] [address] 46219 Urea nitrogen/Creatinine [Mass ratio] 12 mg/mg Normal [facility] Comment on above: Performed By: #### T YPEC #### [facility] (DEFAULT) [address] [place] [address] 14895 GLUCOSE POCon 01-27-2024 Glucose [Mass/Vol] 129 mg/dL High 70 - 99 mg/dL [facility] Glucose [Mass/Vol] 149 mg/dL High 70 - 99 mg/dL [facility] Glucose [Mass/Vol] 174 mg/dL High 70 - 99 mg/dL [facility] Interpretation and review of laboratory results Abnormal [facility] POC Sample Type CAPBL [facility] Glucose [Mass/Vol] 206 mg/dL High 70 - 99 mg/dL [facility] Interpretation and review of laboratory results Abnormal [facility] POC Sample Type CAPBL [facility] MAGNESIUMon 01-27-2024 Magnesium [Mass/Vol] 1.5 mg/dL Low 1.6 - 2 .6 mg/dL [facility] Magnesium [Mass/Vol] 1.5 mg/dL Low 1.6-2.6 [facility] Comment on above: Performed By: #### T YPEC #### [facility] (DEFAULT) [address] [place] [address] No Panel Informationon 01-26 Interpretation and review of laboratory results Abnormal [facility] POC Sample Type CAPBL [facility] Interpretation and review of laboratory results Abnormal [facility] BASIC METABOLIC PANELOrdered By: Tessie Trevizo on 01-26-2024 Anion gap [Moles/Vol] 12 mmol/L 7 - 17 mmol/L [facility] Calcium [Mass/Vol] 8.3 mg/dL Low 8.6 - 10. 5 mg/dL [facility] Chloride [Moles/Vol] 103 mmol/L 98 - 10 8 mmol/L [facility] CO2 [Moles/Vol] 24 mmol/L 21 - 31 mmol/L [facility] Creatinine [Mass/Vol] 1.11 mg/dL 0.50 - 1.20 mg/dL [facility] eGFR, CKD-EPI, Female 52 Low - PINF [facility] Glucose [Mass/Vol] 222 mg/dL High 70 - 99 mg/dL [facility] Interpretation and review of laboratory results Abnormal [facility] Osmolality Calc [Osmolality] 293 [facility] Potassium [Moles/Vol] 4.1 mmol/L 3.5 - 5.0 mmol/L [facility] Sodium [Moles/Vol] 135 mmol/L 135 - 145 mmol/L [facility] Urea nitrogen [Mass/Vol] 16 mg/dL 7 - 25 mg/dL [facility] Urea nitrogen/Creatinine [Mass ratio] 14 mg/mg [facility] CBC,PLATELETSon 01-26-2024 Hematocrit (Bld) [Volume fraction] 29.3 % Low 34.9-44.3 [facility] Comment on above: Performed By: #### T YPEC #### [facility] (DEFAULT) [address] [address] Hemoglobin (Bld) [Mass/Vol] 9.3 g/dL Low 11.4-15.2 [facility] Comment on above: Performed By: #### T YPEC #### [facility] (DEFAULT) [address] [address] MCV (RBC) [Entitic vol] 88.3 fL Normal 79.6-97.7 [facility] Comment on above: Performed By: #### T YPEC #### [facility] (DEFAULT) [address] [address] Mean Cell Hgb 28.0 pg Normal 25.9-33.9 [facility] Comment on above: Performed By: #### T YPEC #### [facility] (DEFAULT) [address] [address] Mean Cell Hgb Conc 31.7 g/dL Normal 31.4-35.9 [facility] Comment on above: Performed By: #### T YPEC #### [facility] (DEFAULT) [address] [address] Platelet mean volume (Bld) [Entitic vol] 11.1 fL Normal 8.5-12.2 [facility] Comment on above: Performed By: #### T YPEC #### [facility] (DEFAULT) [address] [place] [address]161 Platelets (Bld) [#/Vol] 297 10*3/uL Normal 150-393 [facility] Comment on above: Performed By: #### T YPEC #### [facility] (DEFAULT) [address] [place] [address] 04721 RBC (Bld) [#/Vol] 3.32 10*6/uL Low 3.91-5.04 [facility] Comment on above: Performed By: #### T YPEC #### [facility] (DEFAULT) [address] [place] [address]704 RBC Distribution 12.9 % Normal 10.8-14.9 [facility] Comment on above: Performed By: #### T YPEC #### [facility] (DEFAULT) [address] [place] [address]187 WBC (Bld) [#/Vol] 6.83 10*3/uL Normal 3.99-11.19 [facility] Comment on above: Performed By: #### T YPEC #### [facility] (DEFAULT) [address] [place] [address] Erythrocyte distribution width (RBC) [Ratio] 12.9 % 10.8 - 14.9 % [facility] Hematocrit (Bld) [Volume fraction] 29.3 % Low 34.9 - 44.3 % [facility] Hemoglobin (Bld) [Mass/Vol] 9.3 g/dL Low 11.4 - 15.2 g/dL [facility] Interpretation and review of laboratory results Abnormal [facility] MCH (RBC) [Entitic mass] 28.0 pg 25.9 - 33.9 pg [facility] MCHC (RBC) [Mass/Vol] 31.7 g/dL 31.4 - 35.9 g/dL [facility] MCV (RBC) [Entitic vol] 88.3 fL 79.6 - 97.7 fL [facility] Platelet mean volume (Bld) [Entitic vol] 11.1 fL 8.5 - 12.2 fL [facility] Platelets (Bld) [#/Vol] 297 10*3/uL 150 - 393 K/uL [facility] RBC (Bld) [#/Vol] 3.32 10*6/uL Low [facility] WBC (Bld) [#/Vol] 6.83 10*3/uL 3.99 - 11. 19 K/uL [facility] GLUCOSE POCon 01-26-2024 Glucose [Mass/Vol] 178 mg/dL High 70 - 99 mg/dL [facility] Interpretation and review of laboratory results Abnormal [facility] POC Sample Type CAPBL [facility] Glucose [Mass/Vol] 203 mg/dL High 70 - 99 mg/dL [facility] Interpretation and review of laboratory results Abnormal [facility] POC Sample Type CAPBL [facility] MAGNESIUMon 01-26-2024 Interpretation and review of laboratory results Normal [facility] Magnesium [Mass/Vol] 1.6 mg/dL 1.6 - 2 .6 mg/dL [facility] No Panel InformationOrdered By: Tessie Trevizo on 01-26-2024 [facility] XR ABDOMEN 1 VIEW PORTABLEon 01-26-2024 XR [...] Other findings: None. IMPRESSION: Persistent ileus. Normal [facility] XR Abdomen Single viewon RADIOLOGY RADIOLOGY [facility] Radiology Study observation (narrative) [facility] XR Abdomen Single viewOrdere d By: Nichole Burnett on 01-26-2024 [facility] Work Phone: BASIC METABOLIC PANELon 01-13 Anion gap [Moles/Vol] 12 mmol/L Normal 7-17 [facility] Comment on above: Performed By: #### SILVIA MALONEY7, HFP #### [facility] (DEFAULT) [address] [place] [address] Calcium [Mass/Vol] 8.3 mg/dL Low 8.6-10.5 [facility] Comment on above: Performed By: #### LYN MALONEY, HFP #### [facility] (DEFAULT) [address] [place] [address] Chloride [Moles/Vol] 103 mmol/L Normal 98-108 [facility] Comment on above: Performed By: #### SILVIA MALONEY7, HFP #### [facility] (DEFAULT) [address] [place] [address] CO2 [Moles/Vol] 24 mmol/L Normal 21-31 [facility] Comment on above: Performed By: #### LYN MALONEY, HFP #### [facility] (DEFAULT) [address] [place] [address]83 Creatinine [Mass/Vol] 1.11 mg/dL Normal 0.50-1.20 [facility] Comment on above: Performed By: #### SILVIA MALONEY7, HFP #### [facility] (DEFAULT) [address] [place] [address] GFR/1.73 sq M.predicted among non-blacks MDRD (S/P/Bld) [Vol rate/Area] 52 mL/min/{1.73_m2} Low >=60 [facility] Comment on above: Result Comment: Repo rted eGFR is based on the CKD-EPI 2020 equation using creatinine, age, and sex. Performed By: #### LYN MALONEY, HFP #### [facility] (DEFAULT) [address] [place] [address] Glucose [Mass/Vol] 222 mg/dL High 70-99 [facility] Comment on above: Performed By: #### LYN MALONEY, HFP #### [facility] (DEFAULT) [address] [place] [address] Osmolality [Osmolality] 293 mosm/kg Normal 278-305 [facility] Comment on above: Performed By: #### LYN MALONEY, HFP #### [facility] (DEFAULT) [address] [place] [address] Potassium [Moles/Vol] 4.1 mmol/L Normal 3.5-5.0 [facility] Comment on above: Performed By: #### LYN MALONEY, HFP #### [facility] (DEFAULT) [address] [place] [address]385 Sodium [Moles/Vol] 135 mmol/L Normal 135-145 [facility] Comment on above: Performed By: #### LYN MALONEY, HFP #### [facility] (DEFAULT) [address] [place] [address] Urea nitrogen [Mass/Vol] 16 mg/dL Normal 7-25 [facility] Comment on above: Performed By: #### LYN MALONEY, HFP #### [facility] (DEFAULT) [address] [place] [address]871 Urea nitrogen/Creatinine [Mass ratio] 14 mg/mg Normal [facility] Comment on above: Performed By: #### LYN MALONEY, HFP #### [facility] (DEFAULT) [address] [place] [address]74 Anion gap [Moles/Vol] 12 mmol/L 7 - 17 mmol/L [facility] Calcium [Mass/Vol] 8.6 mg/dL 8.6 - 10. 5 mg/dL [facility] Chloride [Moles/Vol] 100 mmol/L 98 - 10 8 mmol/L [facility] CO2 [Moles/Vol] 25 mmol/L 21 - 31 mmol/L [facility] Creatinine [Mass/Vol] 1.11 mg/dL 0.50 - 1.20 mg/dL [facility] eGFR, CKD-EPI, Female 52 Low - PINF [facility] Glucose [Mass/Vol] 177 mg/dL High 70 - 99 mg/dL [facility] Interpretation and review of laboratory results Abnormal [facility] Osmolality Calc [Osmolality] 288 [facility] Potassium [Moles/Vol] 4.4 mmol/L 3.5 - 5.0 mmol/L [facility] Sodium [Moles/Vol] 133 mmol/L Low 135 - 145 mmol/L [facility] Urea nitrogen [Mass/Vol] 19 mg/dL 7 - 25 mg/dL [facility] Urea nitrogen/Creatinine [Mass ratio] 17 mg/mg [facility] Anion gap [Moles/Vol] 12 mmol/L Normal 7-17 [facility] Comment on above: Performed By: #### S URGP #### [facility] (DEFAULT) [address] [place] [address] Calcium [Mass/Vol] 8.6 mg/dL Normal 8.6-10.5 [facility] Comment on above: Performed By: #### S URGP #### [facility] (DEFAULT) [address] [place] [address] Chloride [Moles/Vol] 100 mmol/L Normal 98-108 [facility] Comment on above: Performed By: #### S URGP #### [facility] (DEFAULT) [address] [place] [address] CO2 [Moles/Vol] 25 mmol/L Normal 21-31 [facility] Comment on above: Performed By: #### S URGP #### [facility] (DEFAULT) [address] [place] [address] Creatinine [Mass/Vol] 1.11 mg/dL Normal 0.50-1.20 [facility] Comment on above: Performed By: #### S URGP #### [facility] (DEFAULT) [address] [place] [address] GFR/1.73 sq M.predicted among non-blacks MDRD (S/P/Bld) [Vol rate/Area] 52 mL/min/{1.73_m2} Low >=60 [facility] Comment on above: Result Comment: Repo rted eGFR is based on the CKD-EPI 2020 equation using creatinine, age, and sex. Performed By: #### S URGP #### [facility] (DEFAULT) [address] [address] Glucose [Mass/Vol] 177 mg/dL High 70-99 [facility] Comment on above: Performed By: #### S URGP #### [facility] (DEFAULT) [address] [address] Osmolality [Osmolality] 288 mosm/kg Normal 278-305 [facility] Comment on above: Performed By: #### S URGP #### [facility] (DEFAULT) [address] [address] Potassium [Moles/Vol] 4.4 mmol/L Normal 3.5-5.0 [facility] Comment on above: Performed By: #### S URGP #### [facility] (DEFAULT) [address] [address] Sodium [Moles/Vol] 133 mmol/L Low 135-145 [facility] Comment on above: Performed By: #### S URGP #### [facility] (DEFAULT) [address] [place] [address] Urea nitrogen [Mass/Vol] 19 mg/dL Normal 7-25 [facility] Comment on above: Performed By: #### S URGP #### [facility] (DEFAULT) [address] [place] [address] Urea nitrogen/Creatinine [Mass ratio] 17 mg/mg Normal [facility] Comment on above: Performed By: #### S URGP #### [facility] (DEFAULT) [address] [place] [address] GLUCOSE POCon 01-25-2024 Glucose [Mass/Vol] 361 mg/dL High 70 - 99 mg/dL [facility] Interpretation and review of laboratory results Abnormal [facility] POC Sample Type CAPBL [facility] Glucose [Mass/Vol] 182 mg/dL High 70 - 99 mg/dL [facility] Glucose [Mass/Vol] 213 mg/dL High 70 - 99 mg/dL [facility] Glucose [Mass/Vol] 204 mg/dL High 70 - 99 mg/dL [facility] Glucose [Mass/Vol] 222 mg/dL High 70 - 99 mg/dL [facility] Glucose [Mass/Vol] 219 mg/dL High 70 - 99 mg/dL [facility] MAGNESIUMon 01-25-2024 Magnesium [Mass/Vol] 1.6 mg/dL Normal 1.6-2.6 [facility] Comment on above: Performed By: #### M GIOVANNI, CHM7, HFP #### [facility] (DEFAULT) [address] [place] [address] Interpretation and review of laboratory results Normal [facility] Magnesium [Mass/Vol] 1.7 mg/dL 1.6 - 2 .6 mg/dL [facility] Magnesium [Mass/Vol] 1.7 mg/dL Normal 1.6-2.6 [facility] Comment on above: Performed By: #### S URGP #### [facility] (DEFAULT) [address] [place] [address] No Panel Informationon 01-24 Interpretation and review of laboratory results Abnormal [facility] POC Sample Type CAPBL [facility] XR ABDOMEN 1 VIEW PORTABLEon 01-25-2024 [...] Partially imaged right femoral fixation hardware. Normal [facility] XR Abdomen Single viewon RADIOLOGY RADIOLOGY [facility] Radiology Study observation (narrative) [facility] XR Abdomen Single viewOrdere d By: Kalen Mayberry on 01-25-2024 [facility] Work Phone: BASIC METABOLIC PANELon 01-13 Anion gap [Moles/Vol] 16 mmol/L 7 - 17 mmol/L [facility] Calcium [Mass/Vol] 8.7 mg/dL 8.6 - 10. 5 mg/dL [facility] Chloride [Moles/Vol] 97 mmol/L Low 98 - 10 8 mmol/L [facility] CO2 [Moles/Vol] 23 mmol/L 21 - 31 mmol/L [facility] Creatinine [Mass/Vol] 1.24 mg/dL High 0.50 - 1.20 mg/dL [facility] eGFR, CKD-EPI, Female 45 Low - PINF [facility] Glucose [Mass/Vol] 122 mg/dL High 70 - 99 mg/dL [facility] Interpretation and review of laboratory results Abnormal [facility] Osmolality Calc [Osmolality] 283 [facility] Potassium [Moles/Vol] 4.8 mmol/L 3.5 - 5.0 mmol/L [facility] Sodium [Moles/Vol] 131 mmol/L Low 135 - 145 mmol/L [facility] Urea nitrogen [Mass/Vol] 23 mg/dL 7 - 25 mg/dL [facility] Urea nitrogen/Creatinine [Mass ratio] 19 mg/mg [facility] Anion gap [Moles/Vol] 16 mmol/L Normal 7-17 [facility] Comment on above: Performed By: #### José 7C, MGO #### [facility] (DEFAULT) [address] [place] [address] Calcium [Mass/Vol] 8.7 mg/dL Normal 8.6-10.5 [facility] Comment on above: Performed By: #### José 7C, MGO #### [facility] (DEFAULT) [address] [place] [address] Chloride [Moles/Vol] 97 mmol/L Low 98-108 [facility] Comment on above: Performed By: #### José 7C, MGO #### [facility] (DEFAULT) [address] [place] [address] CO2 [Moles/Vol] 23 mmol/L Normal 21-31 [facility] Comment on above: Performed By: #### José 7C, MGO #### [facility] (DEFAULT) [address] [place] [address] Creatinine [Mass/Vol] 1.24 mg/dL High 0.50-1.20 [facility] Comment on above: Performed By: #### José 7C, MGO #### [facility] (DEFAULT) [address] [place] [address] GFR/1.73 sq M.predicted among non-blacks MDRD (S/P/Bld) [Vol rate/Area] 45 mL/min/{1.73_m2} Low >=60 [facility] Comment on above: Result Comment: Repo rted eGFR is based on the CKD-EPI 2020 equation using creatinine, age, and sex. Performed By: #### José 7C, MGO #### [facility] (DEFAULT) [address] [place] [address] Glucose [Mass/Vol] 122 mg/dL High 70-99 [facility] Comment on above: Performed By: #### José 7C, MGO #### [facility] (DEFAULT) [address] [place] [address] Osmolality [Osmolality] 283 mosm/kg Normal 278-305 [facility] Comment on above: Performed By: #### José 7C, MGO #### [facility] (DEFAULT) [address] [place] [address] Potassium [Moles/Vol] 4.8 mmol/L Normal 3.5-5.0 [facility] Comment on above: Performed By: #### José 7C, MGO #### [facility] (DEFAULT) [address] [place] [address] Sodium [Moles/Vol] 131 mmol/L Low 135-145 [facility] Comment on above: Performed By: #### José 7C, MGO #### [facility] (DEFAULT) [address] [place] [address] Urea nitrogen [Mass/Vol] 23 mg/dL Normal 7-25 [facility] Comment on above: Performed By: #### José 7C, MGO #### [facility] (DEFAULT) [address] [place] [address] Urea nitrogen/Creatinine [Mass ratio] 19 mg/mg Normal [facility] Comment on above: Performed By: #### José 7C, MGO #### [facility] (DEFAULT) [address] [place] [address] CBC,PLATELETSon 01-24-2024 Erythrocyte distribution width (RBC) [Ratio] 13.0 % 10.8 - 14.9 % [facility] Hematocrit (Bld) [Volume fraction] 31.8 % Low 34.9 - 44.3 % [facility] Hemoglobin (Bld) [Mass/Vol] 10.0 g/dL Low 11.4 - 15.2 g/dL [facility] Interpretation and review of laboratory results Abnormal [facility] MCH (RBC) [Entitic mass] 27.7 pg 25.9 - 33.9 pg [facility] MCHC (RBC) [Mass/Vol] 31.4 g/dL 31.4 - 35.9 g/dL [facility] MCV (RBC) [Entitic vol] 88.1 fL 79.6 - 97.7 fL [facility] Platelet mean volume (Bld) [Entitic vol] 11.3 fL 8.5 - 12.2 fL [facility] Platelets (Bld) [#/Vol] 263 10*3/uL 150 - 393 K/uL [facility] RBC (Bld) [#/Vol] 3.61 10*6/uL Low [facility] WBC (Bld) [#/Vol] 10.65 10*3/uL 3.99 - 11 .19 K/uL [facility] Hematocrit (Bld) [Volume fraction] 31.8 % Low 34.9-44.3 [facility] Comment on above: Performed By: #### LYN MALONEY, HFP #### [facility] (DEFAULT) [address] [address] Hemoglobin (Bld) [Mass/Vol] 10.0 g/dL Low 11.4-15.2 [facility] Comment on above: Performed By: #### LYN MALONEY, HFP #### [facility] (DEFAULT) [address] [address] MCV (RBC) [Entitic vol] 88.1 fL Normal 79.6-97.7 [facility] Comment on above: Performed By: #### LYN MALONEY, HFP #### [facility] (DEFAULT) [address] [place] [address] Mean Cell Hgb 27.7 pg Normal 25.9-33.9 [facility] Comment on above: Performed By: #### LYN MALONEY, HFP #### [facility] (DEFAULT) [address] [place] [address] Mean Cell Hgb Conc 31.4 g/dL Normal 31.4-35.9 [facility] Comment on above: Performed By: #### LYN MALONEY, HFP #### [facility] (DEFAULT) [address] [place] [address] Platelet mean volume (Bld) [Entitic vol] 11.3 fL Normal 8.5-12.2 [facility] Comment on above: Performed By: #### LYN MALONEY, HFP #### [facility] (DEFAULT) [address] [place] [address] Platelets (Bld) [#/Vol] 263 10*3/uL Normal 150-393 [facility] Comment on above: Performed By: #### LYN MALONEY, HFP #### [facility] (DEFAULT) [address] [place] [address] RBC (Bld) [#/Vol] 3.61 10*6/uL Low 3.91-5.04 [facility] Comment on above: Performed By: #### LYN MALONEY, HFP #### [facility] (DEFAULT) [address] [place] [address] RBC Distribution 13.0 % Normal 10.8-14.9 [facility] Comment on above: Performed By: #### LYN MALONEY, HFP #### [facility] (DEFAULT) [address] [place] [address] WBC (Bld) [#/Vol] 10.65 10*3/uL Normal 3.99-11.19 [facility] Comment on above: Performed By: #### LYN MALONEY, HFP #### [facility] (DEFAULT) [address] [place] [address] GLUCOSE POCon 01-24-2024 Glucose [Mass/Vol] 108 mg/dL High 70 - 99 mg/dL [facility] Interpretation and review of laboratory results Abnormal [facility]OC [facility] Glucose [Mass/Vol] 103 mg/dL High 70 - 99 mg/dL [facility] Interpretation and review of laboratory results Abnormal [facility] POC Sample Type CAPBL [facility] Glucose [Mass/Vol] 117 mg/dL High 70 - 99 mg/dL [facility] Interpretation and review of laboratory results Abnormal [facility] POC Sample Type CAPBL [facility] Glucose [Mass/Vol] 112 mg/dL High 70 - 99 mg/dL [facility] Interpretation and review of laboratory results Abnormal [facility] POC Sample Type CAPBL [facility] MAGNESIUMon 01-24-2024 Interpretation and review of laboratory results Normal [facility] Magnesium [Mass/Vol] 2.0 mg/dL 1.6 - 2 .6 mg/dL [facility] Magnesium [Mass/Vol] 2.0 mg/dL Normal 1.6-2.6 [facility] Comment on above: Performed By: #### C 7C, MGO #### [facility] (DEFAULT) [address] [place] [address] XR ABDOMEN 1 VIEWon 01-24-20 24 XR [...] which could indicate obstruction versus ileus. Normal [facility] XR Abdomen Single viewon RADIOLOGY RADIOLOGY [facility] Radiology Study observation (narrative) [facility] XR Abdomen Single viewOrdere d By: Charlie Olivera on 01-24-2024 [facility] BASIC METABOLIC PANELon 01-13 Anion gap [Moles/Vol] 10 mmol/L 7 - 17 mmol/L [facility] Calcium [Mass/Vol] 6.2 mg/dL Low 8.6 - 10. 5 mg/dL [facility] Chloride [Moles/Vol] 111 mmol/L High 98 - 10 8 mmol/L [facility] CO2 [Moles/Vol] 20 mmol/L Low 21 - 31 mmol/L [facility] Creatinine [Mass/Vol] 0.95 mg/dL 0.50 - 1.20 mg/dL [facility] eGFR, CKD-EPI, Female 62 - PINF [facility] Glucose [Mass/Vol] 105 mg/dL High 70 - 99 mg/dL [facility] Interpretation and review of laboratory results Abnormal [facility] Osmolality Calc [Osmolality] 291 [facility] Potassium [Moles/Vol] 3.4 mmol/L Low 3.5 - 5.0 mmol/L [facility] Sodium [Moles/Vol] 138 mmol/L 135 - 145 mmol/L [facility] Urea nitrogen [Mass/Vol] 20 mg/dL 7 - 25 mg/dL [facility] Urea nitrogen/Creatinine [Mass ratio] 21 mg/mg [facility] Anion gap [Moles/Vol] 10 mmol/L Normal 7-17 [facility] Comment on above: Performed By: #### José 7C, MGO #### [facility] (DEFAULT) [address] [place] [address] Calcium [Mass/Vol] 6.2 mg/dL Low 8.6-10.5 [facility] Comment on above: Performed By: #### José 7C, MGO #### [facility] (DEFAULT) [address] [place] [address] Chloride [Moles/Vol] 111 mmol/L High 98-108 [facility] Comment on above: Performed By: #### José 7C, MGO #### [facility] (DEFAULT) [address] [place] [address] CO2 [Moles/Vol] 20 mmol/L Low 21-31 [facility] Comment on above: Performed By: #### José 7C, MGO #### [facility] (DEFAULT) [address] [place] [address] Creatinine [Mass/Vol] 0.95 mg/dL Normal 0.50-1.20 [facility] Comment on above: Performed By: #### José 7C, MGO #### [facility] (DEFAULT) [address] [place] [address] GFR/1.73 sq M.predicted among non-blacks MDRD (S/P/Bld) [Vol rate/Area] 62 mL/min/{1.73_m2} Normal >=60 [facility] Comment on above: Result Comment: Repo rted eGFR is based on the CKD-EPI 2020 equation using creatinine, age, and sex. Performed By: #### José 7C, MGO #### [facility] (DEFAULT) [address] [place] [address] Glucose [Mass/Vol] 105 mg/dL High 70-99 [facility] Comment on above: Performed By: #### C 7C, MGO #### [facility] (DEFAULT) [address] [place] [address] Osmolality [Osmolality] 291 mosm/kg Normal 278-305 [facility] Comment on above: Performed By: #### C 7C, MGO #### [facility] (DEFAULT) [address] [place] [address] Potassium [Moles/Vol] 3.4 mmol/L Low 3.5-5.0 [facility] Comment on above: Performed By: #### C 7C, MGO #### [facility] (DEFAULT) [address] [place] [address] Sodium [Moles/Vol] 138 mmol/L Normal 135-145 [facility] Comment on above: Performed By: #### José 7C, MGO #### [facility] (DEFAULT) [address] [place] [address] Urea nitrogen [Mass/Vol] 20 mg/dL Normal 7-25 [facility] Comment on above: Performed By: #### José 7C, MGO #### [facility] (DEFAULT) [address] [place] [address] Urea nitrogen/Creatinine [Mass ratio] 21 mg/mg Normal [facility] Comment on above: Performed By: #### C 7C, MGO #### [facility] (DEFAULT) [address] [place] [address] GLUCOSE POCon 01-23-2024 Glucose [Mass/Vol] 117 mg/dL High 70 - 99 mg/dL [facility] Interpretation and review of laboratory results Abnormal [facility] POC Sample Type CAPBL [facility] Glucose [Mass/Vol] 130 mg/dL High 70 - 99 mg/dL [facility] Interpretation and review of laboratory results Abnormal [facility] POC Sample Type [facility] Glucose [Mass/Vol] 119 mg/dL High 70 - 99 mg/dL [facility] Interpretation and review of laboratory results Abnormal [facility] POC Sample Type CAPBL [facility] Glucose [Mass/Vol] 135 mg/dL High 70 - 99 mg/dL [facility] Interpretation and review of laboratory results Abnormal [facility] POC Sample Type CAPBL [facility] MAGNESIUMon 01-23-2024 Interpretation and review of laboratory results Abnormal [facility] Magnesium [Mass/Vol] 1.2 mg/dL Low 1.6 - 2 .6 mg/dL [facility] Magnesium [Mass/Vol] 1.2 mg/dL Low 1.6-2.6 [facility] Comment on above: Performed By: #### C 7C, MGO #### [facility] (DEFAULT) [address] [place] [address] ABORH TYPE RECONFIRMATIONon 01-22-2024 ABO/RH(D) TYPE Positive [facility] ABO/RH(D) TYPE Positive Normal [facility] Comment on above: Performed By: #### T YPEC #### [facility] (DEFAULT) [address] [address] BASIC METABOLIC PANELon Anion gap [Moles/Vol] 16 mmol/L 7 - 17 mmol/L [facility] Calcium [Mass/Vol] 9.4 mg/dL 8.6 - 10. 5 mg/dL [facility] Chloride [Moles/Vol] 95 mmol/L Low 98 - 10 8 mmol/L [facility] CO2 [Moles/Vol] 26 mmol/L 21 - 31 mmol/L [facility] Creatinine [Mass/Vol] 1.17 mg/dL 0.50 - 1.20 mg/dL [facility] eGFR, CKD-EPI, Female 50 Low - PINF [facility] Glucose [Mass/Vol] 150 mg/dL High 70 - 99 mg/dL [facility] Interpretation and review of laboratory results Abnormal [facility] Osmolality Calc [Osmolality] 287 [facility] Potassium [Moles/Vol] 3.8 mmol/L 3.5 - 5.0 mmol/L [facility] Sodium [Moles/Vol] 133 mmol/L Low 135 - 145 mmol/L [facility] Urea nitrogen [Mass/Vol] 24 mg/dL 7 - 25 mg/dL [facility] Urea nitrogen/Creatinine [Mass ratio] 21 mg/mg [facility] Anion gap [Moles/Vol] 16 mmol/L Normal 7-17 [facility] Comment on above: Performed By: #### LYN MALONEY, HFP #### [facility] (DEFAULT) [address] [place] [address] Calcium [Mass/Vol] 9.4 mg/dL Normal 8.6-10.5 [facility] Comment on above: Performed By: #### LYN MALONEY, HFP #### [facility] (DEFAULT) [address] [place] [address] Chloride [Moles/Vol] 95 mmol/L Low 98-108 [facility] Comment on above: Performed By: #### LYN MALONEY, HFP #### [facility] (DEFAULT) [address] [place] [address] CO2 [Moles/Vol] 26 mmol/L Normal 21-31 [facility] Comment on above: Performed By: #### LYN MALONEY, HFP #### [facility] (DEFAULT) [address] [place] [address] Creatinine [Mass/Vol] 1.17 mg/dL Normal 0.50-1.20 [facility] Comment on above: Performed By: #### LYN MALONEY, HFP #### [facility] (DEFAULT) [address] [place] [address]99 GFR/1.73 sq M.predicted among non-blacks MDRD (S/P/Bld) [Vol rate/Area] 48 mL/min/{1.73_m2} Low >=60 [facility] Comment on above: Result Comment: Repo rted eGFR is based on the CKD-EPI 2020 equation using creatinine, age, and sex. Performed By: #### LYN MALONEY, HFP #### [facility] (DEFAULT) [address] [place] [address] Glucose [Mass/Vol] 150 mg/dL High 70-99 [facility] Comment on above: Performed By: #### LYN MALONEY, HFP #### [facility] (DEFAULT) [address] [place] [address] Osmolality [Osmolality] 287 mosm/kg Normal 278-305 [facility] Comment on above: Performed By: #### LYN MALONEY, HFP #### [facility] (DEFAULT) [address] [place] [address] Potassium [Moles/Vol] 3.8 mmol/L Normal 3.5-5.0 [facility] Comment on above: Performed By: #### LYN MALONEY, HFP #### [facility] (DEFAULT) [address] [place] [address] Sodium [Moles/Vol] 133 mmol/L Low 135-145 [facility] Comment on above: Performed By: #### LYN MALONEY, HFP #### [facility] (DEFAULT) [address] [place] [address] Urea nitrogen [Mass/Vol] 24 mg/dL Normal 7-25 [facility] Comment on above: Performed By: #### LYN MALONEY, HFP #### [facility] (DEFAULT) [address] [place] [address] 97432 Urea nitrogen/Creatinine [Mass ratio] 21 mg/mg Normal [facility] Comment on above: Performed By: #### M GO, CHM7, HFP #### [facility] [facility] (DEFAULT) [address] [place] [address] CARDIAC RHYTHM (SCANNED)on 0 01-22-2024 [facility] CBC,PLATELETSon 01-22-2024 Erythrocyte distribution width (RBC) [Ratio] 13.1 % 10.8 - 14.9 % [facility] Hematocrit (Bld) [Volume fraction] 32.9 % Low 34.9 - 44.3 % [facility] Hemoglobin (Bld) [Mass/Vol] 10.3 g/dL Low 11.4 - 15.2 g/dL [facility] Interpretation and review of laboratory results Abnormal [facility] MCH (RBC) [Entitic mass] 27.6 pg 25.9 - 33.9 pg [facility] MCHC (RBC) [Mass/Vol] 31.3 g/dL Low 31.4 - 35.9 g/dL [facility] MCV (RBC) [Entitic vol] 88.2 fL 79.6 - 97.7 fL [facility] Platelet mean volume (Bld) [Entitic vol] 11.0 fL 8.5 - 12.2 fL [facility] Platelets (Bld) [#/Vol] 256 10*3/uL 150 - 393 K/uL [facility] RBC (Bld) [#/Vol] 3.73 10*6/uL Low [facility] WBC (Bld) [#/Vol] 8.11 10*3/uL 3.99 - 11. 19 K/uL [facility] Hematocrit (Bld) [Volume fraction] 32.9 % Low 34.9-44.3 [facility] Comment on above: Performed By: #### T YPEC #### [facility] (DEFAULT) [address] [place] [address] Hemoglobin (Bld) [Mass/Vol] 10.3 g/dL Low 11.4-15.2 [facility] Comment on above: Performed By: #### T YPEC #### [facility] (DEFAULT) [address] [address] MCV (RBC) [Entitic vol] 88.2 fL Normal 79.6-97.7 [facility] Comment on above: Performed By: #### T YPEC #### [facility] (DEFAULT) [address] [address] Mean Cell Hgb 27.6 pg Normal 25.9-33.9 [facility] Comment on above: Performed By: #### T YPEC #### [facility] (DEFAULT) [address] [address] Mean Cell Hgb Conc 31.3 g/dL Low 31.4-35.9 [facility] Comment on above: Performed By: #### T YPEC #### [facility] (DEFAULT) [address] [address] Platelet mean volume (Bld) [Entitic vol] 11.0 fL Normal 8.5-12.2 [facility] Comment on above: Performed By: #### T YPEC #### [facility] (DEFAULT) [address] [address] Platelets (Bld) [#/Vol] 256 10*3/uL Normal 150-393 [facility] Comment on above: Performed By: #### T YPEC #### [facility] (DEFAULT) [address] [address] RBC (Bld) [#/Vol] 3.73 10*6/uL Low 3.91-5.04 [facility] Comment on above: Performed By: #### T YPEC #### [facility] (DEFAULT) [address] [address] RBC Distribution 13.1 % Normal 10.8-14.9 [facility] Comment on above: Performed By: #### T YPEC #### [facility] (DEFAULT) [address] [place] [address] WBC (Bld) [#/Vol] 8.11 10*3/uL Normal 3.99-11.19 [facility] Comment on above: Performed By: #### T YPEC #### [facility] (DEFAULT) [address] [place] [address] CT ABDOMEN/PELVIS WITH CONTR Monse 01-22-2024 CT [...] have reviewed and approved this report. Normal [facility] CT Abdomen and Pelvis W cont rast Cherelle 01-22-2024 [facility] observation (narrative) [facility] CT Abdomen and Pelvis W cont rast IVOrdered By: Doron Rodrigez on 01-22-2024 [facility] ENCEPHALOPATHY, AUTOIMMUNE E VALUATION, CSFon 01-22-2024 AMPAR2 IgG Cell binding assay immunofluorescent assay Ql (CSF) Negative Negative [facility] Amphiphysin Ab IF Ql (CSF) Negative Negative [facility] Annotation comment [Interpretation] Narrative None. [facility] Contactin-associated protein 2 IgG Cell binding assay immunofluorescent assay Ql (CSF) Negative Negative [facility] CV2 Ab IF Ql (CSF) Negative Negative [facility] Dipeptidyl aminopeptidase-like protein 6 IgG Cell binding assay immunofluorescent assay Ql (CSF) Negative Negative [facility] GABABR IgG Cell binding assay immunofluorescent assay Ql (CSF) Negative Negative [facility] Glial fibrillary acidic protein alpha subunit IgG IF Ql (CSF) Negative Negative [facility] Glial nuclear type 1 Ab IF Ql (CSF) Negative Negative [facility] Glutamate decarboxylase 65 IgG+IgM IA (CSF) [Moles/Vol] 0.00 nmol/L NINF - 0.02 nmol/L [facility] [id number] CBA, CSF Negative Negative [facility] Mat Cleaning Machine Operator review Roger (Unsp spec) [Interp] SEE COMMENTS [facility] Leucine-rich glioma-inactivated protein 1 IgG Cell binding assay immunofluorescent assay Ql (CSF) Negative Negative [facility] Metabotropic glutamate receptor 1 IgG IF Ql (CSF) Negative Negative [facility] Neurochondrin IFA, CSF Negative Negative [facility] Neuronal nuclear type 1 Ab IF Ql (CSF) Negative Negative [facility] Neuronal nuclear type 2 Ab IF Ql (CSF) Negative Negative [facility] Neuronal nuclear type 3 Ab IF Ql (CSF) Negative Negative [facility] NIF IFA, CSF Negative Negative [facility] NMDAR subunit 1 IgG Cell binding assay immunofluorescent assay Ql (CSF) Negative Negative [facility] CEMENT DESPATCH OPERATOR-1 Ab IF Ql (CSF) Negative Negative [facility] CEMENT DESPATCH OPERATOR-2 Ab IF Ql (CSF) Negative Negative [facility] CEMENT DESPATCH OPERATOR-Tr Ab IF Ql (CSF) Negative Negative [facility] PDE10A AB IFA, CSF Negative Negative [facility] Septin-7 IFA, CSF Negative Negative [facility] Tripartite Motif-Containing Protein 46 IgG IFA, CSF Negative Negative [facility] GLUCOSE POCon 01-22-2024 Glucose [Mass/Vol] 156 mg/dL High 70 - 99 mg/dL [facility] Interpretation and review of laboratory results Abnormal [facility] POC [facility] Glucose [Mass/Vol] 139 mg/dL High 70 - 99 mg/dL [facility] Interpretation and review of laboratory results Abnormal [facility] POC [facility] Glucose [Mass/Vol] 156 mg/dL High 70 - 99 mg/dL [facility] Interpretation and review of laboratory results Abnormal [facility] POC Sample Type [facility] Glucose [Mass/Vol] 120 mg/dL High 70 - 99 mg/dL [facility] Interpretation and review of laboratory results Abnormal [facility] POC Sample Type [facility] Glucose [Mass/Vol] 149 mg/dL High 70 - 99 mg/dL [facility] Interpretation and review of laboratory results Abnormal [facility] POC Sample Type CAPBL [facility] Glucose [Mass/Vol] 141 mg/dL High 70 - 99 mg/dL [facility] Interpretation and review of laboratory results Abnormal [facility] POC Sample Type CAPBL [facility] Glucose [Mass/Vol] 152 mg/dL High 70 - 99 mg/dL [facility] Interpretation and review of laboratory results Abnormal [facility] PANELon Albumin [Mass/Vol] 3.4 g/dL Low 3.5 - 5.0 g/dL [facility] ALP [Catalytic activity/Vol] 72 U/L 32 - 126 U/L [facility] ALT [Catalytic activity/Vol] 10 U/L 9 - 48 U/L [facility] AST [Catalytic activity/Vol] 19 U/L 10 - 39 U/L [facility] Bilirubin [Mass/Vol] 0.5 mg/dL NINF - 1.5 mg/dL [facility] Bilirubin.direct [Mass/Vol] 0.1 mg/dL NINF - 0.3 mg/dL [facility] Interpretation and review of laboratory results Abnormal [facility] Protein [Mass/Vol] 6.3 g/dL Low 6.4 - 8.3 g/dL [facility] Albumin [Mass/Vol] 3.4 g/dL Low 3.5-5.0 [facility] Comment on above: Performed By: #### S URGP #### [facility] (DEFAULT) [address] [place] [address] ALP [Catalytic activity/Vol] 72 U/L Normal 32-126 [facility] Comment on above: Performed By: #### S URGP #### [facility] (DEFAULT) [address] [place] [address] ALT [Catalytic activity/Vol] 10 U/L Normal 9-48 [facility] Comment on above: Performed By: #### S URGP #### [facility] (DEFAULT) [address] [place] [address] AST [Catalytic activity/Vol] 19 U/L Normal 10-39 [facility] Comment on above: Performed By: #### S URGP #### [facility] (DEFAULT) [address] [place] [address] Bilirubin [Mass/Vol] 0.5 mg/dL Normal <1.5 [facility] Comment on above: Performed By: #### S URGP #### [facility] (DEFAULT) [address] [place] [address] Bilirubin.indirect [Mass/Vol] 0.1 mg/dL Normal <0.3 [facility] Comment on above: Performed By: #### S URGP #### [facility] (DEFAULT) [address] [place] [address] Protein [Mass/Vol] 6.3 g/dL Low 6.4-8.3 [facility] Comment on above: Performed By: #### S URGP #### [facility] (DEFAULT) [address] [place] [address] LACTATE, BLOODOrdered By: Er in [place] on 01-22-2024 Interpretation and review of laboratory results Normal [facility] Lactate [Moles/Vol] 1.4 mmol/L 0.5 - 1. 6 mmol/L [facility] LACTATE, BLOODon 01-22-2024 Lactate, Blood 1.4 mmol/L Normal 0.5-1.6 [facility] Comment on above: Performed By: #### M GO, CHM7, HFP #### [facility] (DEFAULT) [address] [place] [address] MAGNESIUMon 01-22-2024 Interpretation and review of laboratory results Normal [facility] Magnesium [Mass/Vol] 1.8 mg/dL 1.6 - 2 .6 mg/dL [facility] Magnesium [Mass/Vol] 1.8 mg/dL Normal 1.6-2.6 [facility] Comment on above: Performed By: #### LYN MALONEY, HFP #### [facility] (DEFAULT) [address] [place] [address] No Panel Informationon 01-21 [facility] PROTIME-INRon 01-22-2024 INR Coag (Bld) [Relative time] 1.0 {INR} 0.9 - 1.1 [facility] Interpretation and review of laboratory results Normal [facility] PT Coag (PPP) [Time] 13.3 s [facility] INR Coag (PPP) [Relative time] 1.0 {INR} Normal 0.9-1.1 [facility] Comment on above: Performed By: #### LYN MALONEY, HFP #### [facility] (DEFAULT) [address] [place] [address] PT Coag (PPP) [Time] 13.3 s Normal 11.9-14.2 [facility] Comment on above: Performed By: #### LYN MALONEY, HFP #### [facility] (DEFAULT) [address] [place] [address] SURG PATH REQUESTon 01-22-20 Case Report Normal [facility] Comment on above: Result Comment: Surg ical Pathology Report Case: [id number] Authorizing Provider: Jacob Chester MD Collected: 01/22/2024 03:02 PM Ordering Location: [facility] Received: 01/23/2024 08:05 AM Pathologist: Rosario Thornton MD Specimen: TISSUE, small bowel Performed By: #### S URGP #### [facility] (DEFAULT) [address] [place] [address] Clinical History Small bowel obstruction. Normal [facility] Comment on above: Performed By: #### S URGP #### [facility] (DEFAULT) [address] [address] Gross Description Normal [facility] Comment on above: Result [...] varela-brown ragged mucosa; A4, uninvolved mucosa; A5, public utilities sales representative section of hemorrhagic dark brown areas with the mesenteric fat; A6, additional public utilities sales representative section mesenteric fat to include vasculature Lab Use Only: JobID [id number] Grosser for this case was: Iman Aponte Performed By: #### S URGP #### [facility] (DEFAULT) [address] [address] Microscopic Description A microscopic examination was performed. Normal [facility] Comment on above: Performed By: #### S URGP #### [facility] (DEFAULT) [address] [address] Pathologic Diagnosis [facility] Comment on above: Result Comment: Navi weller bowel, excision: Small bowel with focal ischemic injury Viable margins Performed By: #### S URGP #### [facility] (DEFAULT) [address] [place] [address] Professional Interpretation Performed at: Normal [facility] Comment on above: Result Comment: [facility] For Immediate Release to Patient's MyChart? Yes [address] [address] Performed By: #### S URGP #### [facility] (DEFAULT) [address] [place] [address] TYPE AND SCREENon 01-22-2024 ABO/RH(D) TYPE Positive [facility] ABO/RH(D) TYPE Positive Normal [facility] Comment on above: Performed By: #### M GO, CHM7, HFP #### [facility] (DEFAULT) [address] [place] [address] BASIC METABOLIC PANELOrdered By: Thierno Morelos on 01-21-2024 Anion gap [Moles/Vol] 11 mmol/L 7 - 17 mmol/L [facility] Calcium [Mass/Vol] 9.5 mg/dL 8.6 - 10. 5 mg/dL [facility] Chloride [Moles/Vol] 96 mmol/L Low 98 - 10 8 mmol/L [facility] CO2 [Moles/Vol] 31 mmol/L 21 - 31 mmol/L [facility] Creatinine [Mass/Vol] 1.52 mg/dL High 0.50 - 1.20 mg/dL [facility] eGFR, CKD-EPI, Female 35 Low - PINF [facility] Glucose [Mass/Vol] 206 mg/dL High 70 - 99 mg/dL [facility] Interpretation and review of laboratory results Abnormal [facility] Osmolality Calc [Osmolality] 293 [facility] Potassium [Moles/Vol] 3.8 mmol/L 3.5 - 5.0 mmol/L [facility] Sodium [Moles/Vol] 134 mmol/L Low 135 - 145 mmol/L [facility] Urea nitrogen [Mass/Vol] 26 mg/dL High 7 - 25 mg/dL [facility] Urea nitrogen/Creatinine [Mass ratio] 17 mg/mg [facility] BASIC METABOLIC PANELon 07-0 Anion gap [Moles/Vol] 11 mmol/L Normal 7-17 [facility] Comment on above: Performed By: #### S URGP #### [facility] (DEFAULT) [address] [place] [address] Calcium [Mass/Vol] 9.5 mg/dL Normal 8.6-10.5 [facility] Comment on above: Performed By: #### S URGP #### [facility] (DEFAULT) [address] [place] [address] Chloride [Moles/Vol] 96 mmol/L Low 98-108 [facility] Comment on above: Performed By: #### S URGP #### [facility] (DEFAULT) [address] [place] [address] CO2 [Moles/Vol] 31 mmol/L Normal 21-31 [facility] Comment on above: Performed By: #### S URGP #### [facility] (DEFAULT) [address] [place] [address] Creatinine [Mass/Vol] 1.52 mg/dL High 0.50-1.20 [facility] Comment on above: Performed By: #### S URGP #### [facility] (DEFAULT) [address] [place] [address] GFR/1.73 sq M.predicted among non-blacks MDRD (S/P/Bld) [Vol rate/Area] 35 mL/min/{1.73_m2} Low >=60 [facility] Comment on above: Result Comment: Repo rted eGFR is based on the CKD-EPI 2020 equation using creatinine, age, and sex. Performed By: #### S URGP #### [facility] (DEFAULT) [address] [place] [address] Glucose [Mass/Vol] 206 mg/dL High 70-99 [facility] Comment on above: Performed By: #### S URGP #### [facility] (DEFAULT) [address] [place] [address] Osmolality [Osmolality] 293 mosm/kg Normal 278-305 [facility] Comment on above: Performed By: #### S URGP #### [facility] (DEFAULT) [address] [place] [address] Potassium [Moles/Vol] 3.8 mmol/L Normal 3.5-5.0 [facility] Comment on above: Performed By: #### S URGP #### [facility] (DEFAULT) [address] [place] [address] Sodium [Moles/Vol] 134 mmol/L Low 135-145 [facility] Comment on above: Performed By: #### S URGP #### [facility] (DEFAULT) [address] [place] [address] Urea nitrogen [Mass/Vol] 26 mg/dL High 7-25 [facility] Comment on above: Performed By: #### S URGP #### [facility] (DEFAULT) [address] [place] [address] Urea nitrogen/Creatinine [Mass ratio] 17 mg/mg Normal [facility] Comment on above: Performed By: #### S URGP #### [facility] (DEFAULT) [address] [place] [address] GLUCOSE POCon 01-21-2024 Glucose [Mass/Vol] 185 mg/dL High 70 - 99 mg/dL [facility] Glucose [Mass/Vol] 161 mg/dL High 70 - 99 mg/dL [facility] Glucose [Mass/Vol] 193 mg/dL High 70 - 99 mg/dL [facility] Interpretation and review of laboratory results Abnormal [facility] POC Sample Type CAPBL [facility] MAGNESIUMon 01-21-2024 Interpretation and review of laboratory results Normal [facility] Magnesium [Mass/Vol] 2.0 mg/dL 1.6 - 2 .6 mg/dL [facility] Magnesium [Mass/Vol] 2.0 mg/dL Normal 1.6-2.6 [facility] Comment on above: Performed By: #### T YPEC #### [facility] (DEFAULT) [address] [place] [address] No Panel Informationon 01-20 Interpretation and review of laboratory results Abnormal [facility] POC Sample Type CAPBL [facility] TSH W/FT4 REFLEXon Interpretation and review of laboratory results Normal [facility] TSH Qn 3.805 m[IU]/L [facility] TSH 3.805 uIU/mL Normal 0.550-4.780 [facility] Comment on above: Performed By: #### S URGP #### [facility] (DEFAULT) [address] [place] [address] XR ABDOMEN 1 VIEW PORTABLEon 01-21-2024 XR [...] IMPRESSION: Enteric tube within the stomach. Normal [facility] XR ABDOMEN 1 VIEW PORTABLE EXAM: XR [...] Satisfactory position of the nasogastric tube. Normal [facility] XR Abdomen Single viewon [facility]narrative) [facility] (narrative) [facility] XR Abdomen Single viewOrdere d By: Carmelo Rosales on 01-21-2024 [facility] Work Phone: BASIC METABOLIC PANELOrdered By: Alba Ambrose on 01-20-2024 Anion gap [Moles/Vol] 14 mmol/L 7 - 17 mmol/L [facility] Calcium [Mass/Vol] 9.6 mg/dL 8.6 - 10. 5 mg/dL [facility] Chloride [Moles/Vol] 100 mmol/L 98 - 10 8 mmol/L [facility] CO2 [Moles/Vol] 26 mmol/L 21 - 31 mmol/L [facility] Creatinine [Mass/Vol] 1.42 mg/dL High 0.50 - 1.20 mg/dL [facility] eGFR, CKD-EPI, Female 38 Low - PINF [facility] Glucose [Mass/Vol] 216 mg/dL High 70 - 99 mg/dL [facility] Interpretation and review of laboratory results Abnormal [facility] Osmolality Calc [Osmolality] 298 [facility] Potassium [Moles/Vol] 5.0 mmol/L 3.5 - 5.0 mmol/L [facility] Sodium [Moles/Vol] 135 mmol/L 135 - 145 mmol/L [facility] Urea nitrogen [Mass/Vol] 27 mg/dL High 7 - 25 mg/dL [facility] Urea nitrogen/Creatinine [Mass ratio] 19 mg/mg [facility] BASIC METABOLIC PANELon 07-0 Anion gap [Moles/Vol] 14 mmol/L Normal 7-17 [facility] Comment on above: Performed By: #### B FLD #### [facility] (DEFAULT) [address] [place] [address] Calcium [Mass/Vol] 9.6 mg/dL Normal 8.6-10.5 [facility] Comment on above: Performed By: #### B FLD #### [facility] (DEFAULT) [address] [place] [address] Chloride [Moles/Vol] 100 mmol/L Normal 98-108 [facility] Comment on above: Performed By: #### B FLD #### [facility] (DEFAULT) [address] [place] [address] CO2 [Moles/Vol] 26 mmol/L Normal 21-31 [facility] Comment on above: Performed By: #### B FLD #### [facility] (DEFAULT) [address] [place] [address] Creatinine [Mass/Vol] 1.42 mg/dL High 0.50-1.20 [facility] Comment on above: Performed By: #### B FLD #### [facility] (DEFAULT) [address] [place] [address] GFR/1.73 sq M.predicted among non-blacks MDRD (S/P/Bld) [Vol rate/Area] 38 mL/min/{1.73_m2} Low >=60 [facility] Comment on above: Result Comment: Repo rted eGFR is based on the CKD-EPI 2020 equation using creatinine, age, and sex. Performed By: #### B FLD #### [facility] (DEFAULT) [address] [place] [address] Glucose [Mass/Vol] 216 mg/dL High 70-99 [facility] Comment on above: Performed By: #### B FLD #### [facility] (DEFAULT) [address] [place] [address] Osmolality [Osmolality] 298 mosm/kg Normal 278-305 [facility] Comment on above: Performed By: #### B FLD #### [facility] (DEFAULT) [address] [place] [address] Potassium [Moles/Vol] 5.0 mmol/L Normal 3.5-5.0 [facility] Comment on above: Performed By: #### B FLD #### [facility] (DEFAULT) [address] [place] [address] 23762 Sodium [Moles/Vol] 135 mmol/L Normal 135-145 [facility] Comment on above: Performed By: #### B FLD #### [facility] (DEFAULT) [address] [place] [address] 55710 Urea nitrogen [Mass/Vol] 27 mg/dL High 7-25 [facility] Comment on above: Performed By: #### B FLD #### [facility] (DEFAULT) [address] [place] [address] 48550 Urea nitrogen/Creatinine [Mass ratio] 19 mg/mg Normal [facility] Comment on above: Performed By: #### B FLD #### [facility] (DEFAULT) [address] [place] [address] 43835 CBC,PLATELETSon 01-20-2024 Erythrocyte distribution width (RBC) [Ratio] 13.3 % 10.8 - 14.9 % [facility] Hematocrit (Bld) [Volume fraction] 37.2 % 34.9 - 44.3 % [facility] Hemoglobin (Bld) [Mass/Vol] 11.5 g/dL 11.4 - 15.2 g/dL [facility] Interpretation and review of laboratory results Abnormal [facility] MCH (RBC) [Entitic mass] 27.9 pg 25.9 - 33.9 pg [facility] MCHC (RBC) [Mass/Vol] 30.9 g/dL Low 31.4 - 35.9 g/dL [facility] MCV (RBC) [Entitic vol] 90.3 fL 79.6 - 97.7 fL [facility] Platelet mean volume (Bld) [Entitic vol] 11.3 fL 8.5 - 12.2 fL [facility] Platelets (Bld) [#/Vol] 235 10*3/uL 150 - 393 K/uL [facility] RBC (Bld) [#/Vol] 4.12 10*6/uL [facility] WBC (Bld) [#/Vol] 11.68 10*3/uL High 3.99 - 11 .19 K/uL [facility] Hematocrit (Bld) [Volume fraction] 37.2 % Normal 34.9-44.3 [facility] Comment on above: Performed By: #### LYN MALONEY, HFP #### [facility] (DEFAULT) [address] [address] Hemoglobin (Bld) [Mass/Vol] 11.5 g/dL Normal 11.4-15.2 [facility] Comment on above: Performed By: #### LYN MALONEY, HFP #### [facility] (DEFAULT) [address] [place] [address] 08921 MCV (RBC) [Entitic vol] 90.3 fL Normal 79.6-97.7 [facility] Comment on above: Performed By: #### LYN MALONEY, HFP #### [facility] (DEFAULT) [address] [place] [address] 51102 Mean Cell Hgb 27.9 pg Normal 25.9-33.9 [facility] Comment on above: Performed By: #### LYN MALONEY, HFP #### [facility] (DEFAULT) [address] [place] [address] 05978 Mean Cell Hgb Conc 30.9 g/dL Low 31.4-35.9 [facility] Comment on above: Performed By: #### LYN MALONEY, HFP #### [facility] (DEFAULT) [address] [place] [address] 52730 Platelet mean volume (Bld) [Entitic vol] 11.3 fL Normal 8.5-12.2 [facility] Comment on above: Performed By: #### LYN MALONEY, HFP #### [facility] (DEFAULT) [address] [place] [address] 93723 Platelets (Bld) [#/Vol] 235 10*3/uL Normal 150-393 [facility] Comment on above: Performed By: #### LYN MALONEY, HFP #### [facility] (DEFAULT) [address] [place] [address] 68090 RBC (Bld) [#/Vol] 4.12 10*6/uL Normal 3.91-5.04 [facility] Comment on above: Performed By: #### LYN MALONEY, HFP #### [facility] (DEFAULT) [address] [place] [address] 16048 RBC Distribution 13.3 % Normal 10.8-14.9 [facility] Comment on above: Performed By: #### LYN MALONEY, HFP #### [facility] (DEFAULT) [address] [place] [address] 19859 WBC (Bld) [#/Vol] 11.68 10*3/uL High 3.99-11.19 [facility] Comment on above: Performed By: #### LYN MALONEY, HFP #### [facility] (DEFAULT) [address] [place] [address] 93315 GLUCOSE POCon 01-20-2024 Glucose [Mass/Vol] 237 mg/dL High 70 - 99 mg/dL [facility] Interpretation and review of laboratory results Abnormal [facility] POC Sample Type CAPBL [facility] Glucose [Mass/Vol] 296 mg/dL High 70 - 99 mg/dL [facility] Interpretation and review of laboratory results Abnormal [facility] POC Sample Type CAPBL [facility] Glucose [Mass/Vol] 210 mg/dL High 70 - 99 mg/dL [facility] Interpretation and review of laboratory results Abnormal [facility] POC Sample Type CAPBL [facility] Glucose [Mass/Vol] 184 mg/dL High 70 - 99 mg/dL [facility] Interpretation and review of laboratory results Abnormal [facility] POC Sample Type CAPBL [facility] Glucose [Mass/Vol] 248 mg/dL High 70 - 99 mg/dL [facility] Interpretation and review of laboratory results Abnormal [facility] POC Sample Type CAPBL [facility] Glucose [Mass/Vol] 253 mg/dL High 70 - 99 mg/dL [facility] Interpretation and review of laboratory results Abnormal [facility] POC Sample Type CAPBL [facility] MAGNESIUMon 01-20-2024 Interpretation and review of laboratory results Normal [facility] Magnesium [Mass/Vol] 2.6 mg/dL 1.6 - 2 .6 mg/dL [facility] Magnesium [Mass/Vol] 2.6 mg/dL Normal 1.6-2.6 [facility] Comment on above: Performed By: #### B FLD #### [facility] (DEFAULT) [address] [place] [address] 76949 XR ABDOMEN 1 VIEW PORTABLEon 01-20-2024 XR [...] bowel ileus versus less likely obstruction. Normal [facility] XR Abdomen Single viewon RADIOLOGY RADIOLOGY [facility] Radiology Study observation (narrative) [facility] BASIC METABOLIC PANELOrdered By: Jet Reed on 01-19-2024 Anion gap [Moles/Vol] 14 mmol/L 7 - 17 mmol/L [facility] Calcium [Mass/Vol] 9.4 mg/dL 8.6 - 10. 5 mg/dL [facility] Chloride [Moles/Vol] 97 mmol/L Low 98 - 10 8 mmol/L [facility] CO2 [Moles/Vol] 26 mmol/L 21 - 31 mmol/L [facility] Creatinine [Mass/Vol] 1.33 mg/dL High 0.50 - 1.20 mg/dL [facility] eGFR, CKD-EPI, Female 41 Low - PINF [facility] Glucose [Mass/Vol] 283 mg/dL High 70 - 99 mg/dL [facility] Interpretation and review of laboratory results Abnormal [facility] Osmolality Calc [Osmolality] 295 [facility] Potassium [Moles/Vol] 4.0 mmol/L 3.5 - 5.0 mmol/L [facility] Sodium [Moles/Vol] 133 mmol/L Low 135 - 145 mmol/L [facility] Urea nitrogen [Mass/Vol] 24 mg/dL 7 - 25 mg/dL [facility] Urea nitrogen/Creatinine [Mass ratio] 18 mg/mg [facility] BASIC METABOLIC PANELon Anion gap [Moles/Vol] 14 mmol/L Normal 7-17 [facility] Comment on above: Performed By: #### C 7C, MGO #### [facility] (DEFAULT) [address] [place] [address] 95427 Calcium [Mass/Vol] 9.4 mg/dL Normal 8.6-10.5 [facility] Comment on above: Performed By: #### C 7C, MGO #### [facility] (DEFAULT) [address] [place] [address] 56446 Chloride [Moles/Vol] 97 mmol/L Low 98-108 [facility] Comment on above: Performed By: #### C 7C, MGO #### [facility] (DEFAULT) [address] [place] [address] 81512 CO2 [Moles/Vol] 26 mmol/L Normal 21-31 [facility] Comment on above: Performed By: #### José 7C, MGO #### [facility] (DEFAULT) [address] [place] [address] 62361 Creatinine [Mass/Vol] 1.33 mg/dL High 0.50-1.20 [facility] Comment on above: Performed By: #### José 7C, MGO #### [facility] (DEFAULT) [address] [place] [address] 19927 GFR/1.73 sq M.predicted among non-blacks MDRD (S/P/Bld) [Vol rate/Area] 41 mL/min/{1.73_m2} Low >=60 [facility] Comment on above: Result Comment: Repo rted eGFR is based on the CKD-EPI 2020 equation using creatinine, age, and sex. Performed By: #### C 7C, MGO #### [facility] (DEFAULT) [address] [place] [address] 54197 Glucose [Mass/Vol] 283 mg/dL High 70-99 [facility] Comment on above: Performed By: #### C 7C, MGO #### [facility] (DEFAULT) [address] [place] [address] 31333 Osmolality [Osmolality] 295 mosm/kg Normal 278-305 [facility] Comment on above: Performed By: #### C 7C, MGO #### [facility] (DEFAULT) [address] [place] [address] Potassium [Moles/Vol] 4.0 mmol/L Normal 3.5-5.0 [facility] Comment on above: Performed By: #### oJsé 7C, MGO #### [facility] (DEFAULT) [address] [place] [address] Sodium [Moles/Vol] 133 mmol/L Low 135-145 [facility] Comment on above: Performed By: #### José 7C, MGO #### [facility] (DEFAULT) [address] [place] [address] Urea nitrogen [Mass/Vol] 24 mg/dL Normal 7-25 [facility] Comment on above: Performed By: #### José 7C, MGO #### [facility] (DEFAULT) [address] [place] [address] 83336 Urea nitrogen/Creatinine [Mass ratio] 18 mg/mg Normal [facility] Comment on above: Performed By: #### José 7C, MGO #### [facility] (DEFAULT) [address] [place] [address] 17416 GLUCOSE POCon 01-19-2024 Glucose [Mass/Vol] 283 mg/dL High 70 - 99 mg/dL [facility] Glucose [Mass/Vol] 294 mg/dL High 70 - 99 mg/dL [facility] Glucose [Mass/Vol] 276 mg/dL High 70 - 99 mg/dL [facility] Glucose [Mass/Vol] 268 mg/dL High 70 - 99 mg/dL [facility] Glucose [Mass/Vol] 246 mg/dL High 70 - 99 mg/dL [facility] MAGNESIUMon 01-19-2024 Interpretation and review of laboratory results Abnormal [facility] Magnesium [Mass/Vol] 1.4 mg/dL Low 1.6 - 2 .6 mg/dL [facility] Magnesium [Mass/Vol] 1.4 mg/dL Low 1.6-2.6 [facility] Comment on above: Performed By: #### C 7C, MGO #### [facility] (DEFAULT) [address] [place] [address] No Panel Informationon 01-18 Interpretation and review of laboratory results Abnormal [facility] POC Sample Type CAPBL [facility] Interpretation and review of laboratory results Abnormal [facility] POC Sample Type CAPBL [facility] Portable XR Chest Viewson RADIOLOGY RADIOLOGY [facility] Portable XR Chest ViewsOrder ed By: Laisha Tolentino on 01-19-2024 [facility] Work Phone: XR ABDOMEN 1 VIEW PORTABLEon [...] IMPRESSION: Ileus versus small bowel obstruction. Normal [facility] XR Abdomen Single viewon RADIOLOGY RADIOLOGY [facility] Radiology Study observation (narrative) [facility] XR Abdomen Single viewOrdere d By: Malina Leonard on 01-19-2024 [facility] Work Phone: XR CHEST 1 VIEW PORTABLEon 0 01-19-2024 XR CHEST 1 VIEW PORTABLE EXAM: XR CHEST 1 VIEW PORTABLE, 01/18/2024 23:39 PM COMPARISON: No prior studies available for comparison. CLINICAL INDICATIONS: concern for aspiratoon RELEVANT CLINICAL HISTORY: FINDINGS: (Adequate technique) Implanted Devices: None Thorax: No acute findings in the chest. IMPRESSION: No acute cardiopulmonary disease Normal [facility] BASIC METABOLIC PANELon Anion gap [Moles/Vol] 12 mmol/L 7 - 17 mmol/L [facility] Calcium [Mass/Vol] 9.7 mg/dL 8.6 - 10. 5 mg/dL [facility] Chloride [Moles/Vol] 102 mmol/L 98 - 10 8 mmol/L [facility] CO2 [Moles/Vol] 29 mmol/L 21 - 31 mmol/L [facility] Creatinine [Mass/Vol] 1.56 mg/dL High 0.50 - 1.20 mg/dL [facility] eGFR, CKD-EPI, Female 34 Low - PINF [facility] Glucose [Mass/Vol] 162 mg/dL High 70 - 99 mg/dL [facility] Interpretation and review of laboratory results Abnormal [facility] Osmolality Calc [Osmolality] 299 [facility] Potassium [Moles/Vol] 4.0 mmol/L 3.5 - 5.0 mmol/L [facility] Sodium [Moles/Vol] 139 mmol/L 135 - 145 mmol/L [facility] Urea nitrogen [Mass/Vol] 24 mg/dL 7 - 25 mg/dL [facility] Urea nitrogen/Creatinine [Mass ratio] 15 mg/mg [facility] Anion gap [Moles/Vol] 12 mmol/L Normal 7-17 [facility] Comment on above: Performed By: #### M GIOVANNI, CHM7, HFP #### [facility] (DEFAULT) [address] [place] [address] Calcium [Mass/Vol] 9.7 mg/dL Normal 8.6-10.5 [facility] Comment on above: Performed By: #### LYN MALONEY, HFP #### [facility] (DEFAULT) [address] [place] [address] 15063 Chloride [Moles/Vol] 102 mmol/L Normal 98-108 [facility] Comment on above: Performed By: #### LYN MALONEY, HFP #### [facility] (DEFAULT) [address] [place] [address] 42488 CO2 [Moles/Vol] 29 mmol/L Normal 21-31 [facility] Comment on above: Performed By: #### LYN MALONEY, HFP #### [facility] (DEFAULT) [address] [place] [address] 67448 Creatinine [Mass/Vol] 1.56 mg/dL High 0.50-1.20 [facility] Comment on above: Performed By: #### LYN MALONEY, HFP #### [facility] (DEFAULT) [address] [place] [address] 26126 GFR/1.73 sq M.predicted among non-blacks MDRD (S/P/Bld) [Vol rate/Area] 34 mL/min/{1.73_m2} Low >=60 [facility] Comment on above: Result Comment: Repo rted eGFR is based on the CKD-EPI 2020 equation using creatinine, age, and sex. Performed By: #### LYN MALONEY, HFP #### [facility] (DEFAULT) [address] [place] [address] 65682 Glucose [Mass/Vol] 162 mg/dL High 70-99 [facility] Comment on above: Performed By: #### LYN MALONEY, HFP #### [facility] (DEFAULT) [address] [place] [address] 22557 Osmolality [Osmolality] 299 mosm/kg Normal 278-305 [facility] Comment on above: Performed By: #### M GO, CHM7, HFP #### [facility] (DEFAULT) [address] [place] [address] 81528 Potassium [Moles/Vol] 4.0 mmol/L Normal 3.5-5.0 [facility] Comment on above: Performed By: #### Brain DAVILA CHM7, HFP #### [facility] (DEFAULT) [address] [place] [address] 96078 Sodium [Moles/Vol] 139 mmol/L Normal 135-145 [facility] Comment on above: Performed By: #### Brian DAVILA CHM7, HFP #### [facility] (DEFAULT) [address] [place] [address] 34483 Urea nitrogen [Mass/Vol] 24 mg/dL Normal 7-25 [facility] Comment on above: Performed By: #### Brian DAVILA CHM7, HFP #### [facility] (DEFAULT) [address] [place] [address] 29180 Urea nitrogen/Creatinine [Mass ratio] 15 mg/mg Normal [facility] Comment on above: Performed By: #### Brian DAVILA CHM7, HFP #### [facility] (DEFAULT) [address] [place] [address] 64697 CBC,PLATELETSon 01-18-2024 Erythrocyte distribution width (RBC) [Ratio] 13.0 % 10.8 - 14.9 % [facility] Hematocrit (Bld) [Volume fraction] 34.9 % 34.9 - 44.3 % [facility] Hemoglobin (Bld) [Mass/Vol] 10.7 g/dL Low 11.4 - 15.2 g/dL [facility] Interpretation and review of laboratory results Abnormal [facility] MCH (RBC) [Entitic mass] 27.1 pg 25.9 - 33.9 pg [facility] MCHC (RBC) [Mass/Vol] 30.7 g/dL Low 31.4 - 35.9 g/dL [facility] MCV (RBC) [Entitic vol] 88.4 fL 79.6 - 97.7 fL [facility] Platelet mean volume (Bld) [Entitic vol] 11.1 fL 8.5 - 12.2 fL [facility] Platelets (Bld) [#/Vol] 251 10*3/uL 150 - 393 K/uL [facility] RBC (Bld) [#/Vol] 3.95 10*6/uL [facility] WBC (Bld) [#/Vol] 6.73 10*3/uL 3.99 - 11. 19 K/uL [facility] Hematocrit (Bld) [Volume fraction] 34.9 % Normal 34.9-44.3 [facility] Comment on above: Performed By: #### José 7C, MGO #### [facility] (DEFAULT) [address] [place] [address] 78179 Hemoglobin (Bld) [Mass/Vol] 10.7 g/dL Low 11.4-15.2 [facility] Comment on above: Performed By: #### José 7C, MGO #### [facility] (DEFAULT) [address] [place] [address] 94586 MCV (RBC) [Entitic vol] 88.4 fL Normal 79.6-97.7 [facility] Comment on above: Performed By: #### José 7C, MGO #### [facility] (DEFAULT) [address] [place] [address] 45995 Mean Cell Hgb 27.1 pg Normal 25.9-33.9 [facility] Comment on above: Performed By: #### José 7C, MGO #### [facility] (DEFAULT) [address] [place] [address] 07100 Mean Cell Hgb Conc 30.7 g/dL Low 31.4-35.9 [facility] Comment on above: Performed By: #### José 7C, MGO #### [facility] (DEFAULT) [address] [place] [address] 14907 Platelet mean volume (Bld) [Entitic vol] 11.1 fL Normal 8.5-12.2 [facility] Comment on above: Performed By: #### José 7C, MGO #### [facility] (DEFAULT) [address] [place] [address] 31834 Platelets (Bld) [#/Vol] 251 10*3/uL Normal 150-393 [facility] Comment on above: Performed By: #### José 7C, MGO #### [facility] (DEFAULT) [address] [place] [address] 31371 RBC (Bld) [#/Vol] 3.95 10*6/uL Normal 3.91-5.04 [facility] Comment on above: Performed By: #### José 7C, MGO #### [facility] (DEFAULT) [address] [place] [address] 02629 RBC Distribution 13.0 % Normal 10.8-14.9 [facility] Comment on above: Performed By: #### José 7C, MGO #### [facility] (DEFAULT) [address] [place] [address] 21682 WBC (Bld) [#/Vol] 6.73 10*3/uL Normal 3.99-11.19 [facility] Comment on above: Performed By: #### José 7C, MGO #### [facility] (DEFAULT) [address] [place] [address] 91799 GLUCOSE POCon 01-18-2024 Glucose [Mass/Vol] 256 mg/dL High 70 - 99 mg/dL [facility] Interpretation and review of laboratory results Abnormal [facility] POC Sample Type CAPBL [facility] Glucose [Mass/Vol] 194 mg/dL High 70 - 99 mg/dL [facility] Interpretation and review of laboratory results Abnormal [facility] POC Sample Type CAPBL [facility] Portable XR Chest Viewson Radiology Study observation (narrative) [facility] VANCOMYCIN LEVEL, TROUGH (ID E DRUG LEVEL)on 01-18-2024 Interpretation and review of laboratory results Abnormal [facility] Vancomycin trough [Mass/Vol] 21.0 ug/mL High Therapeutic Range: 10.0-20.0 mcg/mL mcg/mL [facility] Vancomycin, Trough 21.0 mcg/mL High Therapeut ic Range: 10.0-20.0 mcg/mL [facility] Comment on above: Order Comment: Pleas e draw level at specified interval PRIOR to next dose. Performed By: #### B FLD #### [facility] (DEFAULT) [address] [place] [address] BASIC METABOLIC PANELon Anion gap [Moles/Vol] 14 mmol/L 7 - 17 mmol/L [facility] Calcium [Mass/Vol] 9.3 mg/dL 8.6 - 10. 5 mg/dL [facility] Chloride [Moles/Vol] 102 mmol/L 98 - 10 8 mmol/L [facility] CO2 [Moles/Vol] 26 mmol/L 21 - 31 mmol/L [facility] Creatinine [Mass/Vol] 1.63 mg/dL High 0.50 - 1.20 mg/dL [facility] eGFR, CKD-EPI, Female 32 Low - PINF [facility] Glucose [Mass/Vol] 251 mg/dL High 70 - 99 mg/dL [facility] Interpretation and review of laboratory results Abnormal [facility] Osmolality Calc [Osmolality] 303 [facility] Potassium [Moles/Vol] 3.9 mmol/L 3.5 - 5.0 mmol/L [facility] Sodium [Moles/Vol] 138 mmol/L 135 - 145 mmol/L [facility] Urea nitrogen [Mass/Vol] 25 mg/dL 7 - 25 mg/dL [facility] Urea nitrogen/Creatinine [Mass ratio] 15 mg[facility] GLUCOSE POCon 01-17-2024 Glucose [Mass/Vol] 240 mg/dL High 70 - 99 mg/dL [facility] Interpretation and review of laboratory results Abnormal [facility] POC [facility] Glucose [Mass/Vol] 242 mg/dL High 70 - 99 mg/dL [facility] Interpretation and review of laboratory results Abnormal [facility] POC Sample [facility] Glucose [Mass/Vol] 174 mg/dL High 70 - 99 mg/dL [facility] Interpretation and review of laboratory results Abnormal [facility] POC Sample Type CAPBL [facility] Glucose [Mass/Vol] 174 mg/dL High 70 - 99 mg/dL [facility] Interpretation and review of laboratory results Abnormal [facility] POC Sample Type CAPBL [facility] BASIC METABOLIC PANELon 07-0 -2023 Anion gap [Moles/Vol] 14 mmol/L Normal 7-17 [facility] Comment on above: Performed By: #### LYN MALONEY, HFP #### [facility] (DEFAULT) [address] [place] [address] Calcium [Mass/Vol] 9.3 mg/dL Normal 8.6-10.5 [facility] Comment on above: Performed By: #### LYN MALONEY, HFP #### [facility] (DEFAULT) [address] [place] [address] Chloride [Moles/Vol] 102 mmol/L Normal 98-108 [facility] Comment on above: Performed By: #### LYN MALONEY, HFP #### [facility] (DEFAULT) [address] [place] [address] CO2 [Moles/Vol] 26 mmol/L Normal 21-31 [facility] Comment on above: Performed By: #### LYN MALONEY, HFP #### [facility] (DEFAULT) [address] [place] [address]800 Creatinine [Mass/Vol] 1.63 mg/dL High 0.50-1.20 [facility] Comment on above: Performed By: #### LYN MALONEY, HFP #### [facility] (DEFAULT) [address] [place] [address] 57981 GFR/1.73 sq M.predicted among non-blacks MDRD (S/P/Bld) [Vol rate/Area] 32 mL/min/{1.73_m2} Low >=60 [facility] Comment on above: Result Comment: Repo rted eGFR is based on the CKD-EPI 2020 equation using creatinine, age, and sex. Performed By: #### LYN MALONEY, HFP #### [facility] (DEFAULT) [address] [place] [address] 61741 Glucose [Mass/Vol] 251 mg/dL High 70-99 [facility] Comment on above: Performed By: #### LYN MALONEY, HFP #### [facility] (DEFAULT) [address] [place] [address] 10756 Osmolality [Osmolality] 303 mosm/kg Normal 278-305 [facility] Comment on above: Performed By: #### LYN MALONEY, HFP #### [facility] (DEFAULT) [address] [place] [address] 40399 Potassium [Moles/Vol] 3.9 mmol/L Normal 3.5-5.0 [facility] Comment on above: Performed By: #### LYN MALONEY, HFP #### [facility] (DEFAULT) [address] [place] [address] 82566 Sodium [Moles/Vol] 138 mmol/L Normal 135-145 [facility] Comment on above: Performed By: #### LYN MALONEY, HFP #### [facility] (DEFAULT) [address] [place] [address] Urea nitrogen [Mass/Vol] 25 mg/dL Normal 7-25 [facility] Comment on above: Performed By: #### M LYN DAVILA, HFP #### [facility] (DEFAULT) [address] [place] [address] Urea nitrogen/Creatinine [Mass ratio] 15 mg/mg Normal [facility] Comment on above: Performed By: #### LYN MALONEY, HFP #### [facility] (DEFAULT) [address] [place] [address] Anion gap [Moles/Vol] 13 mmol/L 7 - 17 mmol/L [facility] Calcium [Mass/Vol] 9.6 mg/dL 8.6 - 10. 5 mg/dL [facility] Chloride [Moles/Vol] 107 mmol/L 98 - 10 8 mmol/L [facility] CO2 [Moles/Vol] 25 mmol/L 21 - 31 mmol/L [facility] Creatinine [Mass/Vol] 1.05 mg/dL 0.50 - 1.20 mg/dL [facility] eGFR, CKD-EPI, Female 55 Low - PINF [facility] Glucose [Mass/Vol] 136 mg/dL High 70 - 99 mg/dL [facility] Interpretation and review of laboratory results Abnormal [facility] Osmolality Calc [Osmolality] 299 [facility] Potassium [Moles/Vol] 3.7 mmol/L 3.5 - 5.0 mmol/L [facility] Sodium [Moles/Vol] 141 mmol/L 135 - 145 mmol/L [facility] Urea nitrogen [Mass/Vol] 19 mg/dL 7 - 25 mg/dL [facility] Urea nitrogen/Creatinine [Mass ratio] 18 mg/mg [facility] Anion gap [Moles/Vol] 13 mmol/L Normal 7-17 [facility] Comment on above: Performed By: #### José 7C, MGO #### [facility] (DEFAULT) [address] [place] [address] Calcium [Mass/Vol] 9.6 mg/dL Normal 8.6-10.5 [facility] Comment on above: Performed By: #### C 7C, MGO #### [facility] (DEFAULT) [address] [place] [address] 34103 Chloride [Moles/Vol] 107 mmol/L Normal 98-108 [facility] Comment on above: Performed By: #### C 7C, MGO #### [facility] (DEFAULT) [address] [place] [address] 61223 CO2 [Moles/Vol] 25 mmol/L Normal 21-31 [facility] Comment on above: Performed By: #### C 7C, MGO #### [facility] (DEFAULT) [address] [place] [address] 03028 Creatinine [Mass/Vol] 1.05 mg/dL Normal 0.50-1.20 [facility] Comment on above: Performed By: #### C 7C, MGO #### [facility] (DEFAULT) [address] [place] [address] 33977 GFR/1.73 sq M.predicted among non-blacks MDRD (S/P/Bld) [Vol rate/Area] 55 mL/min/{1.73_m2} Low >=60 [facility] Comment on above: Result Comment: Repo rted eGFR is based on the CKD-EPI 2020 equation using creatinine, age, and sex. Performed By: #### C 7C, MGO #### [facility] (DEFAULT) [address] [place] [address] 52823 Glucose [Mass/Vol] 136 mg/dL High 70-99 [facility] Comment on above: Performed By: #### C 7C, MGO #### [facility] (DEFAULT) [address] [place] [address] 71049 Osmolality [Osmolality] 299 mosm/kg Normal 278-305 [facility] Comment on above: Performed By: #### C 7C, MGO #### [facility] (DEFAULT) [address] [place] [address] 69314 Potassium [Moles/Vol] 3.7 mmol/L Normal 3.5-5.0 [facility] Comment on above: Performed By: #### C 7C, MGO #### [facility] (DEFAULT) [address] [place] [address] 32425 Sodium [Moles/Vol] 141 mmol/L Normal 135-145 [facility] Comment on above: Performed By: #### C 7C, MGO #### [facility] (DEFAULT) [address] [place] [address] 18055 Urea nitrogen [Mass/Vol] 19 mg/dL Normal 7-25 [facility] Comment on above: Performed By: #### C 7C, MGO #### [facility] (DEFAULT) [address] [place] [address] 08392 Urea nitrogen/Creatinine [Mass ratio] 18 mg/mg Normal [facility] Comment on above: Performed By: #### C 7C, MGO #### [facility] (DEFAULT) [address] [place] [address] 28911 CBC,PLATELETSon 01-16-2024 Erythrocyte distribution width (RBC) [Ratio] 12.9 % 10.8 - 14.9 % [facility] Hematocrit (Bld) [Volume fraction] 35.4 % 34.9 - 44.3 % [facility] Hemoglobin (Bld) [Mass/Vol] 11.1 g/dL Low 11.4 - 15.2 g/dL [facility] Interpretation and review of laboratory results Abnormal [facility] MCH (RBC) [Entitic mass] 27.8 pg 25.9 - 33.9 pg [facility] MCHC (RBC) [Mass/Vol] 31.4 g/dL 31.4 - 35.9 g/dL [facility] MCV (RBC) [Entitic vol] 88.5 fL 79.6 - 97.7 fL [facility] Platelet mean volume (Bld) [Entitic vol] 10.5 fL 8.5 - 12.2 fL [facility] Platelets (Bld) [#/Vol] 249 10*3/uL 150 - 393 K/uL [facility] RBC (Bld) [#/Vol] 4.00 10*6/uL [facility] WBC (Bld) [#/Vol] 6.67 10*3/uL 3.99 - 11. 19 K/uL [facility] Hematocrit (Bld) [Volume fraction] 35.4 % Normal 34.9-44.3 [facility] Comment on above: Performed By: #### LYN MALONEY, HFP #### [facility] (DEFAULT) [address] [place] [address] 04229 Hemoglobin (Bld) [Mass/Vol] 11.1 g/dL Low 11.4-15.2 [facility] Comment on above: Performed By: #### LYN MALONEY, HFP #### [facility] (DEFAULT) [address] [place] [address] 28536 MCV (RBC) [Entitic vol] 88.5 fL Normal 79.6-97.7 [facility] Comment on above: Performed By: #### LYN MALONEY, HFP #### [facility] (DEFAULT) [address] [place] [address] 40836 Mean Cell Hgb 27.8 pg Normal 25.9-33.9 [facility] Comment on above: Performed By: #### SILVIA MALONEY7, HFP #### [facility] (DEFAULT) [address] [place] [address] 30544 Mean Cell Hgb Conc 31.4 g/dL Normal 31.4-35.9 [facility] Comment on above: Performed By: #### Brian DAVILA CHM7, HFP #### [facility] (DEFAULT) [address] [place] [address] 71384 Platelet mean volume (Bld) [Entitic vol] 10.5 fL Normal 8.5-12.2 [facility] Comment on above: Performed By: #### SILVIA MALONEY7, HFP #### [facility] (DEFAULT) [address] [place] [address] 73970 Platelets (Bld) [#/Vol] 249 10*3/uL Normal 150-393 [facility] Comment on above: Performed By: #### M SILVIA DAVILA7, HFP #### [facility] (DEFAULT) [address] [place] [address] 94112 RBC (Bld) [#/Vol] 4.00 10*6/uL Normal 3.91-5.04 [facility] Comment on above: Performed By: #### Brian DAVILA CHM7, HFP #### [facility] (DEFAULT) [address] [place] [address] 53844 RBC Distribution 12.9 % Normal 10.8-14.9 [facility] Comment on above: Performed By: #### SILVIA MALONEY7, HFP #### [facility] (DEFAULT) [address] [place] [address] 92707 WBC (Bld) [#/Vol] 6.67 10*3/uL Normal 3.99-11.19 [facility] Comment on above: Performed By: #### Brian DAVILA CHM7, HFP #### [facility] (DEFAULT) [address] [place] [address] 30917 Enterovirus By PCRon 024 ENTEROVIRUS PCR Negative Normal Negative [facility] Comment on above: Result Comment: No E nteroviral RNA Detected.This test was developed and its performance characteristicsdetermined by [facility]. It has not been cleared or approvedby the Food and Drug Administration. The FDA hasdetermined that such clearance or approval is notnecessary.Performed at: [address] [id number] Director: Johnathon Malik MD, Phone: [phone] Performed By: #### L 5511.3454 ####[facility] [address] [place], [address] GLUCOSE POCon 01-16-2024 Glucose [Mass/Vol] 295 mg/dL High 70 - 99 mg/dL [facility] Glucose [Mass/Vol] 230 mg/dL High 70 - 99 mg/dL [facility] Glucose [Mass/Vol] 132 mg/dL High 70 - 99 mg/dL [facility] Glucose [Mass/Vol] 266 mg/dL High 70 - 99 mg/dL [facility] Glucose [Mass/Vol] 284 mg/dL High 70 - 99 mg/dL [facility] Glucose [Mass/Vol] 278 mg/dL High 70 - 99 mg/dL [facility] LYME ABon 01-16-2024 B. burgdorferi IgM IA Qn (S) Negative Negative [facility] Interpretation and review of laboratory results Normal [facility] No Panel Informationon 01-15 Interpretation and review of laboratory results Abnormal [facility] POC Sample Type CAPBL [facility] TSH W/FT4 REFLEXon Interpretation and review of laboratory results Normal [facility] TSH Qn 1.610 m[IU]/L [facility] TSH 1.610 uIU/mL Normal 0.550-4.780 [facility] Comment on above: Performed By: #### C 7C, MGO #### [facility] (DEFAULT) [address] [place] [address] VANCOMYCIN LEVEL, TROUGH (ID E DRUG LEVEL)on 01-16-2024 Interpretation and review of laboratory results Abnormal [facility] Vancomycin trough [Mass/Vol] 20.9 ug/mL High Therapeutic Range: 10.0-20.0 mcg/mL mcg/mL [facility] Vancomycin, Trough 20.9 mcg/mL High Therapeut ic Range: 10.0-20.0 mcg/mL [facility] Comment on above: Order Comment: Pleas e draw level at specified interval PRIOR to next dose. Performed By: #### M GIOVANNI, M7, [facility] #### [facility] (DEFAULT) [address] [place] [address] GLUCOSE POCon 01-15-2024 Glucose [Mass/Vol] 331 mg/dL High 70 - 99 mg/dL [facility] Interpretation and review of laboratory results Abnormal [facility] POC Sample Type CAPBL [facility] Glucose [Mass/Vol] 187 mg/dL High 70 - 99 mg/dL [facility] Glucose [Mass/Vol] 276 mg/dL High 70 - 99 mg/dL [facility] No Panel Informationon 01-14 Interpretation and review of laboratory results Abnormal [facility] POC Sample Type CAPBL [facility] PLATELET COUNTon 01-15-2024 Interpretation and review of laboratory results Normal [facility] Platelet mean volume (Bld) [Entitic vol] 11.1 fL 8.5 - 12.2 fL [facility] Platelets (Bld) [#/Vol] 252 10*3/uL 150 - 393 K/uL [facility] Platelet mean volume (Bld) [Entitic vol] 11.1 fL Normal 8.5-12.2 [facility] Comment on above: Performed By: #### T YPEC #### [facility] (DEFAULT) [address] [place] [address] Platelets (Bld) [#/Vol] 252 10*3/uL Normal 150-393 [facility] Comment on above: Performed By: #### T YPEC #### [facility] (DEFAULT) [address] [place] [address] BASIC METABOLIC PANELon Anion gap [Moles/Vol] 13 mmol/L 7 - 17 mmol/L [facility] Calcium [Mass/Vol] 9.1 mg/dL 8.6 - 10. 5 mg/dL [facility] Chloride [Moles/Vol] 106 mmol/L 98 - 10 8 mmol/L [facility] CO2 [Moles/Vol] 22 mmol/L 21 - 31 mmol/L [facility] Creatinine [Mass/Vol] 1.12 mg/dL 0.50 - 1.20 mg/dL [facility] eGFR, CKD-EPI, Female 51 Low - PINF [facility] Glucose [Mass/Vol] 182 mg/dL High 70 - 99 mg/dL [facility] Interpretation and review of laboratory results Abnormal [facility] Osmolality Calc [Osmolality] 295 [facility] Potassium [Moles/Vol] 3.7 mmol/L 3.5 - 5.0 mmol/L [facility] Sodium [Moles/Vol] 137 mmol/L 135 - 145 mmol/L [facility] Urea nitrogen [Mass/Vol] 21 mg/dL 7 - 25 mg/dL [facility] Urea nitrogen/Creatinine [Mass ratio] 19 mg/mg [facility] Anion gap [Moles/Vol] 13 mmol/L Normal 7-17 [facility] Comment on above: Performed By: #### José 7C, MGO #### [facility] (DEFAULT) [address] [place] [address] Calcium [Mass/Vol] 9.1 mg/dL Normal 8.6-10.5 [facility] Comment on above: Performed By: #### José 7C, MGO #### [facility] (DEFAULT) [address] [place] [address] Chloride [Moles/Vol] 106 mmol/L Normal 98-108 [facility] Comment on above: Performed By: #### José 7C, MGO #### [facility] (DEFAULT) [address] [place] [address] CO2 [Moles/Vol] 22 mmol/L Normal 21-31 [facility] Comment on above: Performed By: #### José 7C, MGO #### [facility] (DEFAULT) [address] [place] [address] 73578 Creatinine [Mass/Vol] 1.12 mg/dL Normal 0.50-1.20 [facility] Comment on above: Performed By: #### oJsé 7C, MGO #### [facility] (DEFAULT) [address] [place] [address] 66527 GFR/1.73 sq M.predicted among non-blacks MDRD (S/P/Bld) [Vol rate/Area] 51 mL/min/{1.73_m2} Low >=60 [facility] Comment on above: Result Comment: Repo rted eGFR is based on the CKD-EPI 2020 equation using creatinine, age, and sex. Performed By: #### José 7C, MGO #### [facility] (DEFAULT) [address] [place] [address] 74683 Glucose [Mass/Vol] 182 mg/dL High 70-99 [facility] Comment on above: Performed By: #### José Quiñones, MGO #### [facility] (DEFAULT) [address] [place] [address] 09993 Osmolality [Osmolality] 295 mosm/kg Normal 278-305 [facility] Comment on above: Performed By: #### José 7C, MGO #### [facility] (DEFAULT) [address] [place] [address] 08384 Potassium [Moles/Vol] 3.7 mmol/L Normal 3.5-5.0 [facility] Comment on above: Performed By: #### José 7C, MGO #### [facility] (DEFAULT) [address] [place] [address] 08453 Sodium [Moles/Vol] 137 mmol/L Normal 135-145 [facility] Comment on above: Performed By: #### José 7C, MGO #### [facility] (DEFAULT) [address] [place] [address] 96821 Urea nitrogen [Mass/Vol] 21 mg/dL Normal 7-25 [facility] Comment on above: Performed By: #### José 7C, MGO #### [facility] (DEFAULT) [address] [place] [address] Urea nitrogen/Creatinine [Mass ratio] 19 mg/mg Normal [facility] Comment on above: Performed By: #### José 7C, MGO #### [facility] (DEFAULT) [address] [place] [address] CBC,PLATELETSon 01-14-2024 Erythrocyte distribution width (RBC) [Ratio] 12.5 % 10.8 - 14.9 % [facility] Hematocrit (Bld) [Volume fraction] 34.1 % Low 34.9 - 44.3 % [facility] Hemoglobin (Bld) [Mass/Vol] 10.6 g/dL Low 11.4 - 15.2 g/dL [facility] Interpretation and review of laboratory results Abnormal [facility] MCH (RBC) [Entitic mass] 27.9 pg 25.9 - 33.9 pg [facility] MCHC (RBC) [Mass/Vol] 31.1 g/dL Low 31.4 - 35.9 g/dL [facility] MCV (RBC) [Entitic vol] 89.7 fL 79.6 - 97.7 fL [facility] Platelet mean volume (Bld) [Entitic vol] 10.6 fL 8.5 - 12.2 fL [facility] Platelets (Bld) [#/Vol] 218 10*3/uL 150 - 393 K/uL [facility] RBC (Bld) [#/Vol] 3.80 10*6/uL Low [facility] WBC (Bld) [#/Vol] 6.23 10*3/uL 3.99 - 11. 19 K/uL [facility] Hematocrit (Bld) [Volume fraction] 34.1 % Low 34.9-44.3 [facility] Comment on above: Performed By: #### Brian DAVILA CHM7, HFP #### [facility] (DEFAULT) [address] [place] [address] 45174 Hemoglobin (Bld) [Mass/Vol] 10.6 g/dL Low 11.4-15.2 [facility] Comment on above: Performed By: #### Brain DAVILA CHM7, HFP #### [facility] (DEFAULT) [address] [place] [address] 43160 MCV (RBC) [Entitic vol] 89.7 fL Normal 79.6-97.7 [facility] Comment on above: Performed By: #### LYN MALONEY, HFP #### [facility] (DEFAULT) [address] [place] [address] 83539 Mean Cell Hgb 27.9 pg Normal 25.9-33.9 [facility] Comment on above: Performed By: #### LYN MALONEY, HFP #### [facility] (DEFAULT) [address] [place] [address] 93340 Mean Cell Hgb Conc 31.1 g/dL Low 31.4-35.9 [facility] Comment on above: Performed By: #### LYN MALONEY, HFP #### [facility] (DEFAULT) [address] [place] [address] 79244 Platelet mean volume (Bld) [Entitic vol] 10.6 fL Normal 8.5-12.2 [facility] Comment on above: Performed By: #### Brian DAVILA CHM7, HFP #### [facility] (DEFAULT) [address] [place] [address] 56528 Platelets (Bld) [#/Vol] 218 10*3/uL Normal 150-393 [facility] Comment on above: Performed By: #### Brian DAVILA CHM7, HFP #### [facility] (DEFAULT) [address] [place] [address] 97201 RBC (Bld) [#/Vol] 3.80 10*6/uL Low 3.91-5.04 [facility] Comment on above: Performed By: #### M GIOVANNI CHM7, HFP #### [facility] (DEFAULT) [address] [place] [address] 85630 RBC Distribution 12.5 % Normal 10.8-14.9 [facility] Comment on above: Performed By: #### M GIOVANNI CHM7, HFP #### [facility] (DEFAULT) [address] [place] [address] 69022 WBC (Bld) [#/Vol] 6.23 10*3/uL Normal 3.99-11.19 [facility] Comment on above: Performed By: #### Brian DAVILA CHM7, HFP #### [facility] (DEFAULT) [address] [place] [address] 91409 CSF DIFFERENTIALOrdered By: Montez Davis on 01-14-2024 Basophils/100 WBC Manual cnt (CSF) 0 % [facility] Work Phone: Cells Counted Total (CSF) [#] 100 [facility] Work Phone: Eosinophils/100 WBC Manual cnt (CSF) 0 % [facility] Work Phone: Interpretation and review of laboratory results Abnormal [facility] Work Phone: Lymphocytes/100 WBC Manual cnt (CSF) 48 % 40 - 80 % [facility] Work Phone: Monocytes+Macrophages /100 WBC (CSF) 6 % Low 15 - 45 % [facility] Work Phone: Neutrophils/100 WBC Manual cnt (CSF) 44 % High NINF - 6 % [facility] Work Phone: Nucleated RBC/100 WBC (Bld) [Ratio] 2 % [facility] Work Phone: Pathologist review Roger (Unsp spec) [Interp] Montez Davis MD [facility] Work Phone: Pathology report comments [Interpretation] Narrative m0yzvQVdMZXhvQQeKRGrN7bsda YrCQFigXGiR5QoriyzMCpbTR8q GM0amWhgvBThbBRkITTiQxZwi2 uqm667uIFkm2ycHWEXPGayNKBK WAy1pUkgC09cr3N7PyglA72xbS LrOKY2ZOPwQSCpdSBmTDCuFWK1 QFNbmQPvL9pmCDRyMQ9wqubyEF ykLMwqIXRfrSM2WEAlqQNfX6Wl PQGbMBwuBHXbisr0MkXgRq8qeB VyeTcyMFxwYXJkXHBsYWluXGZz CsXtLDbcrq00LBB7g0efpLSnWY ptPglueHVztsF4VOdMGJDMSAbJ YsLzBG7jFXzCZ2GIYNtPZplzEh anF7hngUO6x9kncWCyp4o8WRob GTC9lD6jFVVzSAY4xXYrM7GjVT 9gM8PjoHUgiiAkGKKmFrSvBrmy i0XnjBYelYSmv5TwhW4eBXZ4xV DfNN8vQPWlsp0tkNRpnG4gyCGn sUG2w2P5EAMdcDllUCDxZBCnxx JyUWSFy9ZtNWaciOvkoyZ1eNBy EYhjNX9au3ZtuE3oKB5eIAE6oO K5ldQjbqHpz88oHL6pZGZow5cr zBDlGCusOomhkMWzwmE0AAoZXX CRITwCLyDfLU2ySUoAZ8IOLmQ8 NeZ4WbT2RRjglXbtCpxarrBwwW FiQbBabZ2teFfeeX7uKqXiYIOd GMQyqezpYXVxYGWhvhg7WLTYAT KDZKmVPC9YVCTUKSGEMJ9WOQmV EtBwJvoyX3yxCSB3WqB3FkC4Mu L1GPSFLPEMDHhCCN6XSOHICCLI EE6WDbDiH4yMTZSRCjKhVJAGBH HYYOOsEzMAED6kM7fHKSMRQeHv NZQAEIZXXXEuJH0RNQCYAHWLKI 3TWVTBR33PEOELSSLMY0GNH6gK OXTnj0DzkJBQc7M3TLPfbDvwNH EdAXTdPsAsKgOjHZ8lDUdVE6LW G3oZUQPkONVZTFUAGSDrVR9TDT hFXD2VOKRwPRVYYNSNQLViJoHG US5wHRiTDS7QAWPuCPVDIQNUIR CpTV1MPMFGZR8ZZUTAPMZNK31D GHYVJPQUV5DKQ2mEVTFGCDHGZm AKBxITGG6GTLCOVYFTAR6YCiR0 [facility] Work Phone: Tube number Nom (CSF) [ID] CSF TUBE 4 [facility] Work Phone: [facility] Work Phone: EBV Acute VCA IgMon 01-14-20 24 EBV Ab VCA, IgM < 36.0 Normal 0.0-35.9 [facility] Comment on above: Result Comment: Nega tive <36.0 Equivocal 36.0 - 43.9 Positive >43.9 Performed By: #### L 800.7510, L7000.8600, L3100.5900 ####[facility] [id number] [place], [place], [id number] GLUCOSE POCon 01-14-2024 Glucose [Mass/Vol] 253 mg/dL High 70 - 99 mg/dL [facility] Interpretation and review of laboratory results Abnormal [facility] POC Sample Type CAPBL [facility] Glucose [Mass/Vol] 251 mg/dL High 70 - 99 mg/dL [facility] Glucose [Mass/Vol] 241 mg/dL High 70 - 99 mg/dL [facility] Glucose [Mass/Vol] 168 mg/dL High 70 - 99 mg/dL [facility] Interpretation and review of laboratory results Abnormal [facility] POC Sample Type CAPBL [facility] HSV Culture and Typingon HSV CULT/TYPING Comment Normal . [facility] Comment on above: Result Comment: Jigar Middleton Herpes simplex virus isolated. Performed By: #### L 800.7510, L7000.8600, L3100.5900 ####[facility] [address] [place], [place], [id number] MICHELINE Virus Whole Blood DNA, PC Iain 01-14-2024 JCV WB DNA PCR Normal [facility] Comment on above: Result Comment: TEST RESULTS LIMITSJC Virus DNA,PCR (WholeBlood) Negative Negative No JCV DNA detectedThis test was developed and its performance characteristicsdetermined by [employer]. It has not been cleared or approvedby the Food and Drug Administration. The FDA has determinedthat such clearance or approval is not necessary. ___ TESTING PERFORMED AT [facility]. ORIGINAL REPORT ON FILE IN LAB CONTAINS ADDITIONAL TEST SITE INFORMATION. Performed By: #### L 800.7510, L7000.8600, L3100.5900 ####[facility] [address] [place], [place], [address] MAGNESIUMon 01-14-2024 Interpretation and review of laboratory results Normal [facility] Magnesium [Mass/Vol] 2.2 mg/dL 1.6 - 2 .6 mg/dL [facility] Magnesium [Mass/Vol] 2.2 mg/dL Normal 1.6-2.6 [facility] Comment on above: Performed By: #### C 7C, MGO #### [facility] (DEFAULT) [address] [place] [address] No Panel Informationon 01-13 Interpretation and review of laboratory results Abnormal [facility] POC Sample Type CAPBL [facility]3] BASIC METABOLIC PANELon 12-16 Anion gap [Moles/Vol] 13 mmol/L 7 - 17 mmol/L [facility] Calcium [Mass/Vol] 9.5 mg/dL 8.6 - 10. 5 mg/dL [facility] Chloride [Moles/Vol] 105 mmol/L 98 - 10 8 mmol/L [facility] CO2 [Moles/Vol] 25 mmol/L 21 - 31 mmol/L [facility] Creatinine [Mass/Vol] 0.93 mg/dL 0.50 - 1.20 mg/dL [facility] eGFR, CKD-EPI, Female 64 - PINF [facility] Glucose [Mass/Vol] 159 mg/dL High 70 - 99 mg/dL [facility] Osmolality Calc [Osmolality] 297 [facility] Potassium [Moles/Vol] 3.9 mmol/L 3.5 - 5.0 mmol/L [facility] Sodium [Moles/Vol] 139 mmol/L 135 - 145 mmol/L [facility] Urea nitrogen [Mass/Vol] 20 mg/dL 7 - 25 mg/dL [facility] Urea nitrogen/Creatinine [Mass ratio] 22 mg/mg [facility] Anion gap [Moles/Vol] 13 mmol/L Normal 7-17 [facility] Comment on above: Performed By: #### C 7C, MGO #### [facility] (DEFAULT) [address] [place] [address] Calcium [Mass/Vol] 9.5 mg/dL Normal 8.6-10.5 [facility] Comment on above: Performed By: #### José 7C, MGO #### [facility] (DEFAULT) [address] [place] [address] Chloride [Moles/Vol] 105 mmol/L Normal 98-108 [facility] Comment on above: Performed By: #### José 7C, MGO #### [facility] (DEFAULT) [address] [place] [address] CO2 [Moles/Vol] 25 mmol/L Normal 21-31 [facility] Comment on above: Performed By: #### José 7C, MGO #### [facility] (DEFAULT) [address] [place] [address] Creatinine [Mass/Vol] 0.93 mg/dL Normal 0.50-1.20 [facility] Comment on above: Performed By: #### José 7C, MGO #### [facility] (DEFAULT) [address] [place] [address] GFR/1.73 sq M.predicted among non-blacks MDRD (S/P/Bld) [Vol rate/Area] 64 mL/min/{1.73_m2} Normal >=60 [facility] Comment on above: Result Comment: Repo rted eGFR is based on the CKD-EPI 2020 equation using creatinine, age, and sex. Performed By: #### José 7C, MGO #### [facility] (DEFAULT) [address] [place] [address] Glucose [Mass/Vol] 159 mg/dL High 70-99 [facility] Comment on above: Performed By: #### José 7C, MGO #### [facility] (DEFAULT) [address] [place] [address] Osmolality [Osmolality] 297 mosm/kg Normal 278-305 [facility] Comment on above: Performed By: #### José 7C, MGO #### [facility] (DEFAULT) [address] [place] [address] Potassium [Moles/Vol] 3.9 mmol/L Normal 3.5-5.0 [facility] Comment on above: Performed By: #### C 7C, MGO #### [facility] (DEFAULT) [address] [place] [address] Sodium [Moles/Vol] 139 mmol/L Normal 135-145 [facility] Comment on above: Performed By: #### C 7C, MGO #### [facility] (DEFAULT) [address] [place] [address] Urea nitrogen [Mass/Vol] 20 mg/dL Normal 7-25 [facility] Comment on above: Performed By: #### C 7C, MGO #### [facility] (DEFAULT) [address] [place] [address] Urea nitrogen/Creatinine [Mass ratio] 22 mg/mg Normal [facility] Comment on above: Performed By: #### C 7C, MGO #### [facility] (DEFAULT) [address] [place] [address] Bacteria identified Cx Nom ( Body fld)Ordered By: Lina Guaman on 01-13-2024 Bacteria identified Cx Nom (Unsp spec) NO GROWTH DAY 2 OF 2 [facility] Microscopic observation Other stain Nom (Unsp spec) Cytocentrifuge preparation [facility] Microscopic observation Other stain Nom (Unsp spec) Neutrophils, Rare [facility] Microscopic observation Other stain Nom (Unsp spec) Mononuclear cells present [facility] Microscopic observation Other stain Nom (Unsp spec) No organisms seen [facility] CBC,PLATELETSon 01-13-2024 Erythrocyte distribution width (RBC) [Ratio] 12.5 % 10.8 - 14.9 % [facility] Hematocrit (Bld) [Volume fraction] 39.2 % 34.9 - 44.3 % [facility] Hemoglobin (Bld) [Mass/Vol] 12.3 g/dL 11.4 - 15.2 g/dL [facility] Interpretation and review of laboratory results Normal [facility] MCH (RBC) [Entitic mass] 27.6 pg 25.9 - 33.9 pg [facility] MCHC (RBC) [Mass/Vol] 31.4 g/dL 31.4 - 35.9 g/dL [facility] MCV (RBC) [Entitic vol] 88.1 fL 79.6 - 97.7 fL [facility] Platelet mean volume (Bld) [Entitic vol] 10.5 fL 8.5 - 12.2 fL [facility] Platelets (Bld) [#/Vol] 254 10*3/uL 150 - 393 K/uL [facility] RBC (Bld) [#/Vol] 4.45 10*6/uL [facility] WBC (Bld) [#/Vol] 8.81 10*3/uL 3.99 - 11. 19 K/uL [facility] Hematocrit (Bld) [Volume fraction] 39.2 % Normal 34.9-44.3 [facility] Comment on above: Performed By: #### B FLD #### [facility] (DEFAULT) [address] [place] [address] Hemoglobin (Bld) [Mass/Vol] 12.3 g/dL Normal 11.4-15.2 [facility] Comment on above: Performed By: #### B FLD #### [facility] (DEFAULT) [address] [place] [address] MCV (RBC) [Entitic vol] 88.1 fL Normal 79.6-97.7 [facility] Comment on above: Performed By: #### B FLD #### [facility] (DEFAULT) [address] [place] [address] Mean Cell Hgb 27.6 pg Normal 25.9-33.9 [facility] Comment on above: Performed By: #### B FLD #### [facility] (DEFAULT) [address] [address] Mean Cell Hgb Conc 31.4 g/dL Normal 31.4-35.9 [facility] Comment on above: Performed By: #### B FLD #### [facility] (DEFAULT) [address] [address] Platelet mean volume (Bld) [Entitic vol] 10.5 fL Normal 8.5-12.2 [facility] Comment on above: Performed By: #### B FLD #### [facility] (DEFAULT) [address] [address] Platelets (Bld) [#/Vol] 254 10*3/uL Normal 150-393 [facility] Comment on above: Performed By: #### B FLD #### [facility] (DEFAULT) [address] [address] RBC (Bld) [#/Vol] 4.45 10*6/uL Normal 3.91-5.04 [facility] Comment on above: Performed By: #### B FLD #### [facility] (DEFAULT) [address] [address] RBC Distribution 12.5 % Normal 10.8-14.9 [facility] Comment on above: Performed By: #### B FLD #### [facility] (DEFAULT) [address] [place] [address] WBC (Bld) [#/Vol] 8.81 10*3/uL Normal 3.99-11.19 [facility] Comment on above: Performed By: #### B FLD #### [facility] (DEFAULT) [address] [address] Culture, Blood (WB)on 2023 CUB No growth in 5 days. Normal [facility] Comment on above: Performed By: #### L 500.3400, M200.1000, L503.6005, L503.5510 ####[facility] [address] [place], [place], [address] Performed By: #### M 200.1000 ####[facility] [address] [facility] [place], [address] GLUCOSE POCon 01-13-2024 Glucose [Mass/Vol] 350 mg/dL High 70 - 99 mg/dL [facility] Interpretation and review of laboratory results Abnormal [facility] POC Sample Type CAPBL [facility] Glucose [Mass/Vol] 339 mg/dL High 70 - 99 mg/dL [facility] Interpretation and review of laboratory results Abnormal [facility] POC Sample Type CAPBL [facility] Glucose [Mass/Vol] 143 mg/dL High 70 - 99 mg/dL [facility] Glucose [Mass/Vol] 179 mg/dL High 70 - 99 mg/dL [facility] Glucose [Mass/Vol] 264 mg/dL High 70 - 99 mg/dL [facility] Interpretation and review of laboratory results Abnormal [facility] POC Sample Type CAPBL [facility] LYME DISEASE BY PCR, FLUIDon 01-13-2024 B. burgdorferi oppA2 gene JAYLIN+non-probe Ql (Unsp spec) Negative Negative [facility] B. garinii+afzelii oppA2 gene JAYLIN+non-probe Ql (Unsp spec) Negative Negative [facility] B. mayonii oppA2 gene JAYLIN+non-probe Ql (Unsp spec) Negative Negative [facility] Microbiologist review Roger (Unsp spec) [Interp] SEE COMMENTS [facility] Specimen source Nom (Unsp spec) [facility] MAGNESIUMon 01-13-2024 Magnesium [Mass/Vol] 1.4 mg/dL Low 1.6 - 2 .6 mg/dL [facility] Magnesium [Mass/Vol] 1.4 mg/dL Low 1.6-2.6 [facility] Comment on above: Performed By: #### C 7C, MGO #### [facility] (DEFAULT) [address] [place] [address] No Panel Informationon 01-12 Interpretation and review of laboratory results Abnormal [facility] POC Sample Type CAPBL [facility] Interpretation and review of laboratory results Abnormal [facility] VANCOMYCIN LEVEL, TROUGH (ID E DRUG LEVEL)on 01-13-2024 Interpretation and review of laboratory results Normal [facility] Vancomycin trough [Mass/Vol] 13.6 ug/mL Therapeutic Range: 10.0-20.0 mcg/mL mcg/mL [facility] Vancomycin, Trough 13.6 mcg/mL Normal Therapeut ic Range: 10.0-20.0 mcg/mL [facility] Comment on above: Order Comment: Pleas e draw level at specified interval PRIOR to next dose. Performed By: #### M GIOVANNI, CHM7, HFP #### [facility] (DEFAULT) [address] [address] Basic Metabolic Profile (BMP )on 01-12-2024 BUN Normal 7-18 [facility] Comment on above: Result Comment: Canc elled via OM: Order cancelled - Patient discharged Performed By: #### L 500.2500, L100.0100 ####[facility] [address] [place], [address] BUN/CRE Normal 10-20 [facility] Comment on above: Result Comment: Canc elled via OM: Order cancelled - Patient discharged Performed By: #### L 500.2500, L100.0100 ####[facility] [address] [place], [address] CA,Total Normal 8.5-10.1 [facility] Comment on above: Result Comment: Canc elled via OM: Order cancelled - Patient discharged Performed By: #### L 500.2500, L100.0100 ####[facility] [address] [place], [address] CL Normal 98-107 [facility] Comment on above: Result Comment: Canc elled via OM: Order cancelled - Patient discharged Performed By: #### L 500.2500, L100.0100 ####[facility] [address] [place], [address] CO2 Normal 21.0-32.0 [facility] Comment on above: Result Comment: Canc elled via OM: Order cancelled - Patient discharged Performed By: #### L 500.2500, L100.0100 ####[facility] [address] [place], [address] CREAT,SERUM Normal 0.55-1.02 [facility] Comment on above: Result Comment: Canc elled via OM: Order cancelled - Patient discharged Performed By: #### L 500.2500, L100.0100 ####[facility] [address] [place], [address] EST GFR Normal >60 [facility] Comment on above: Result Comment: Canc elled via OM: Order cancelled - Patient discharged Performed By: #### L 500.2500, L100.0100 ####[facility] [address] [place], [address] EST GFR - AA Normal >60 [facility] Comment on above: Result Comment: Canc elled via OM: Order cancelled - Patient discharged Performed By: #### L 500.2500, L100.0100 ####[facility] [address], [address] GAP Normal 5-15 [facility] Comment on above: Result Comment: Canc elled via OM: Order cancelled - Patient discharged Performed By: #### L 500.2500, L100.0100 ####[facility] [address] [place], [address] GLU Normal 74-106 [facility] Comment on above: Result Comment: Canc elled via OM: Order cancelled - Patient discharged Performed By: #### L 500.2500, L100.0100 ####[facility] [address] [place], [address] Potassium Normal 3.5-5.1 [facility] Comment on above: Result Comment: Canc elled via OM: Order cancelled - Patient discharged Performed By: #### L 500.2500, L100.0100 ####[facility] [address] [place], [address] Basic Metabolic Profile (BMP) Normal 136-145 [facility] Comment on above: Result Comment: Canc elled via OM: Order cancelled - Patient discharged Performed By: #### L 500.2500, L100.0100 ####[facility] [address] [place], [address] CBC W/Diff, Automatedon 06-2 Absolute Neut Normal 2.0-7.7 [facility] Comment on above: Result Comment: Canc elled via OM: Order cancelled - Patient discharged Performed By: #### L 500.2500, L100.0100 ####[facility] [address] [place], [address] HCT Normal 37-47 [facility] Comment on above: Result Comment: Canc elled via OM: Order cancelled - Patient discharged Performed By: #### L 500.2500, L100.0100 ####[facility] [address] [place], [address] HGB Normal 12.0-15.0 [facility] Comment on above: Result Comment: Canc elled via OM: Order cancelled - Patient discharged Performed By: #### L 500.2500, L100.0100 ####[facility] [address] [place], [address] MCH Normal 27.0-32.0 [facility] Comment on above: Result Comment: Canc elled via OM: Order cancelled - Patient discharged Performed By: #### L 500.2500, L100.0100 ####[facility] [address] [place], [address] MCHC Normal 32-36 [facility] Comment on above: Result Comment: Canc elled via OM: Order cancelled - Patient discharged Performed By: #### L 500.2500, L100.0100 ####[facility] [address] [place], [address] MCV Normal 81-99 [facility] Comment on above: Result Comment: Canc elled via OM: Order cancelled - Patient discharged Performed By: #### L 500.2500, L100.0100 ####[facility] [address] [place], [address] NEUT% Normal 47-70 [facility] Comment on above: Result Comment: Canc elled via OM: Order cancelled - Patient discharged Performed By: #### L 500.2500, L100.0100 ####[facility] [address] [place], [address] PLT Normal 150-450 [facility] Comment on above: Result Comment: Canc elled via OM: Order cancelled - Patient discharged Performed By: #### L 500.2500, L100.0100 ####[facility] [address] [place], [address] RBC Normal 4.2-5.4 [facility] Comment on above: Result Comment: Canc elled via OM: Order cancelled - Patient discharged Performed By: #### L 500.2500, L100.0100 ####[facility] [address] [place], [address] RDW CV Normal 11.6-14.6 [facility] Comment on above: Result Comment: Canc elled via OM: Order cancelled - Patient discharged Performed By: #### L 500.2500, L100.0100 ####[facility] [address] [place], [address] RDW SD Normal 35.1-43.9 [facility] Comment on above: Result Comment: Canc elled via OM: Order cancelled - Patient discharged Performed By: #### L 500.2500, L100.0100 ####[facility] [address] [place], [address] WBC Normal 4.4-11.0 [facility] Comment on above: Result Comment: Canc elled via OM: Order cancelled - Patient discharged Performed By: #### L 500.2500, L100.0100 ####[facility] [address] [place], [address] CBC,PLATELETSon 01-12-2024 Erythrocyte distribution width (RBC) [Ratio] 12.6 % 10.8 - 14.9 % [facility] Hematocrit (Bld) [Volume fraction] 36.9 % 34.9 - 44.3 % [facility] Hemoglobin (Bld) [Mass/Vol] 11.6 g/dL 11.4 - 15.2 g/dL [facility] Interpretation and review of laboratory results Normal [facility] MCH (RBC) [Entitic mass] 27.4 pg 25.9 - 33.9 pg [facility] MCHC (RBC) [Mass/Vol] 31.4 g/dL 31.4 - 35.9 g/dL [facility] MCV (RBC) [Entitic vol] 87.2 fL 79.6 - 97.7 fL [facility] Platelet mean volume (Bld) [Entitic vol] 11.4 fL 8.5 - 12.2 fL [facility] Platelets (Bld) [#/Vol] 273 10*3/uL 150 - 393 K/uL [facility] RBC (Bld) [#/Vol] 4.23 10*6/uL [facility] WBC (Bld) [#/Vol] 7.52 10*3/uL 3.99 - 11. 19 K/uL [facility] Hematocrit (Bld) [Volume fraction] 36.9 % Normal 34.9-44.3 [facility] Comment on above: Performed By: #### S URGP #### [facility] (DEFAULT) [address] [address] Hemoglobin (Bld) [Mass/Vol] 11.6 g/dL Normal 11.4-15.2 [facility] Comment on above: Performed By: #### S URGP #### [facility] (DEFAULT) [address] [place] [address] MCV (RBC) [Entitic vol] 87.2 fL Normal 79.6-97.7 [facility] Comment on above: Performed By: #### S URGP #### [facility] (DEFAULT) [address] [address] Mean Cell Hgb 27.4 pg Normal 25.9-33.9 [facility] Comment on above: Performed By: #### S URGP #### [facility] (DEFAULT) [address] [place] [address] Mean Cell Hgb Conc 31.4 g/dL Normal 31.4-35.9 [facility] Comment on above: Performed By: #### S URGP #### [facility] (DEFAULT) [address] [address] Platelet mean volume (Bld) [Entitic vol] 11.4 fL Normal 8.5-12.2 [facility] Comment on above: Performed By: #### S URGP #### [facility] (DEFAULT) [address] [place] [address] Platelets (Bld) [#/Vol] 273 10*3/uL Normal 150-393 [facility] Comment on above: Performed By: #### S URGP #### [facility] (DEFAULT) [address] [place] [address] RBC (Bld) [#/Vol] 4.23 10*6/uL Normal 3.91-5.04 [facility] Comment on above: Performed By: #### S URGP #### [facility] (DEFAULT) [address] [place] [address] RBC Distribution 12.6 % Normal 10.8-14.9 [facility] Comment on above: Performed By: #### S URGP #### [facility] (DEFAULT) [address] [place] [address] WBC (Bld) [#/Vol] 7.52 10*3/uL Normal 3.99-11.19 [facility] Comment on above: Performed By: #### S URGP #### [facility] (DEFAULT) [address] [place] [address] CHEM 7 (LYTES,BUN,CREA,GLUC) Ordered By: Rodrigue Jeffries on 01-12-2024 Anion gap [Moles/Vol] 17 mmol/L 7 - 17 mmol/L [facility] Chloride [Moles/Vol] 106 mmol/L 98 - 10 8 mmol/L [facility] CO2 [Moles/Vol] 21 mmol/L 21 - 31 mmol/L [facility] Creatinine [Mass/Vol] 0.98 mg/dL 0.50 - 1.20 mg/dL [facility] eGFR, CKD-EPI, Female 60 - PINF [facility] Glucose [Mass/Vol] 215 mg/dL High 70 - 99 mg/dL [facility] Interpretation and review of laboratory results Abnormal [facility] Osmolality Calc [Osmolality] 303 [facility] Potassium [Moles/Vol] 4.1 mmol/L 3.5 - 5.0 mmol/L [facility] Sodium [Moles/Vol] 140 mmol/L 135 - 145 mmol/L [facility] Urea nitrogen [Mass/Vol] 21 mg/dL 7 - 25 mg/dL [facility] Urea nitrogen/Creatinine [Mass ratio] 21 mg/mg [facility] CHEM 7 (LYTES,BUN,CREA,GLUC) on 01-12-2024 Anion gap [Moles/Vol] 17 mmol/L Normal 7-17 [facility] Comment on above: Performed By: #### LYN MALONEY, HFP #### [facility] (DEFAULT) [address] [place] [address] Chloride [Moles/Vol] 106 mmol/L Normal 98-108 [facility] Comment on above: Performed By: #### LYN MALONEY, HFP #### [facility] (DEFAULT) [address] [place] [address] CO2 [Moles/Vol] 21 mmol/L Normal 21-31 [facility] Comment on above: Performed By: #### LYN MALONEY, HFP #### [facility] (DEFAULT) [address] [place] [address] Creatinine [Mass/Vol] 0.98 mg/dL Normal 0.50-1.20 [facility] Comment on above: Performed By: #### LYN MALONEY, HFP #### [facility] (DEFAULT) [address] [place] [address] GFR/1.73 sq M.predicted among non-blacks MDRD (S/P/Bld) [Vol rate/Area] 60 mL/min/{1.73_m2} Normal >=60 [facility] Comment on above: Result Comment: Repo rted eGFR is based on the CKD-EPI 2020 equation using creatinine, age, and sex. Performed By: #### LYN MALONEY, HFP #### [facility] (DEFAULT) [address] [place] [address] Glucose [Mass/Vol] 215 mg/dL High 70-99 [facility] Comment on above: Performed By: #### LYN MALONEY, HFP #### [facility] (DEFAULT) [address] [place] [address] Osmolality [Osmolality] 303 mosm/kg Normal 278-305 [facility] Comment on above: Performed By: #### LYN MALONEY, HFP #### [facility] (DEFAULT) [address] [place] [address] Potassium [Moles/Vol] 4.1 mmol/L Normal 3.5-5.0 [facility] Comment on above: Performed By: #### LYN MALONEY, HFP #### [facility] (DEFAULT) [address] [place] [address] Sodium [Moles/Vol] 140 mmol/L Normal 135-145 [facility] Comment on above: Performed By: #### LYN MALONEY, HFP #### [facility] (DEFAULT) [address] [place] [address] Urea nitrogen [Mass/Vol] 21 mg/dL Normal 7-25 [facility] Comment on above: Performed By: #### LYN MALONEY, HFP #### [facility] (DEFAULT) [address] [place] [address] 29071 Urea nitrogen/Creatinine [Mass ratio] 21 mg/mg Normal [facility] Comment on above: Performed By: #### LYN MALONEY, HFP #### [facility] (DEFAULT) [address] [place] [address] EXTRA STERILEon 01-12-2024 [facility] GLUCOSE POCon 01-12-2024 Glucose [Mass/Vol] 213 mg/dL High 70 - 99 mg/dL [facility] Interpretation and review of laboratory results Abnormal [facility] POC Sample Type CAPBL [facility] Glucose [Mass/Vol] 198 mg/dL High 70 - 99 mg/dL [facility] Interpretation and review of laboratory results Abnormal [facility] POC Sample Type CAPBL [facility] Glucose [Mass/Vol] 278 mg/dL High 70 - 99 mg/dL [facility] Interpretation and review of laboratory results Abnormal [facility] POC Sample Type CAPBL [facility] Glucose [Mass/Vol] 273 mg/dL High 70 - 99 mg/dL [facility] Glucose [Mass/Vol] 243 mg/dL High 70 - 99 mg/dL [facility] Glucose [Mass/Vol] 230 mg/dL High 70 - 99 mg/dL [facility] HEPATIC FUNCTION PANELon Albumin [Mass/Vol] 3.4 g/dL Low 3.5 - 5.0 g/dL [facility] ALP [Catalytic activity/Vol] 91 U/L 32 - 126 U/L [facility] ALT [Catalytic activity/Vol] 8 U/L Low 9 - 48 U/L [facility] AST [Catalytic activity/Vol] 20 U/L 10 - 39 U/L [facility] Bilirubin [Mass/Vol] 0.4 mg/dL NINF - 1.5 mg/dL [facility] Bilirubin.direct [Mass/Vol] 0.1 mg/dL NINF - 0.3 mg/dL [facility] Interpretation and review of laboratory results Abnormal [facility] Protein [Mass/Vol] 6.3 g/dL Low 6.4 - 8.3 g/dL [facility] Albumin [Mass/Vol] 3.4 g/dL Low 3.5-5.0 [facility] Comment on above: Performed By: #### M GIOVANNI, CHM7, HFP #### [facility] (DEFAULT) [address] [place] [address] ALP [Catalytic activity/Vol] 91 U/L Normal 32-126 [facility] Comment on above: Performed By: #### LYN MALONEY, HFP #### [facility] (DEFAULT) [address] [place] [address]10 ALT [Catalytic activity/Vol] 8 U/L Low 9-48 [facility] Comment on above: Performed By: #### LYN MALONEY, HFP #### [facility] (DEFAULT) [address] [place] [address] 46818 AST [Catalytic activity/Vol] 20 U/L Normal 10-39 [facility] Comment on above: Performed By: #### LYN MALONEY, HFP #### [facility] (DEFAULT) [address] [place] [address] Bilirubin [Mass/Vol] 0.4 mg/dL Normal <1.5 [facility] Comment on above: Performed By: #### LYN MALONEY, HFP #### [facility] (DEFAULT) [address] [place] [address] Bilirubin.indirect [Mass/Vol] 0.1 mg/dL Normal <0.3 [facility] Comment on above: Performed By: #### LYN MALONEY, HFP #### [facility] (DEFAULT) [address] [place] [address] 09745 Protein [Mass/Vol] 6.3 g/dL Low 6.4-8.3 [facility] Comment on above: Performed By: #### LYN MALONEY, HFP #### [facility] (DEFAULT) [address] [place] [address]36 MAGNESIUMon 01-12-2024 Interpretation and review of laboratory results Abnormal [facility] Magnesium [Mass/Vol] 1.4 mg/dL Low 1.6 - 2 .6 mg/dL [facility] Magnesium [Mass/Vol] 1.4 mg/dL Low 1.6-2.6 [facility] Comment on above: Performed By: #### M GO, CHM7, HFP #### [facility] (DEFAULT) [address] [place] [address] No Panel Informationon 01-11 Interpretation and review of laboratory results Abnormal [facility] POC Sample Type CAPBL [facility] BODY FLUID CULTURE AND DIREC T SMEARon 01-11-2024 Bacteria identified Cx Nom (Unsp spec) NO GROWTH DAY 2 OF 2 Normal [facility] Comment on above: Performed By: #### B FLD #### [facility] (DEFAULT) [address] [address] Microscopic observation Gram stain Nom (Unsp spec) Normal [facility] Comment on above: Result Comment: Cyto centrifuge preparation Neutrophils, Rare Mononuclear cells present No organisms seen Performed By: #### B FLD #### [facility] (DEFAULT) [address] [place] [address] Basic Metabolic Profile (BMP )on 01-11-2024 BUN/CRE 20.6 RATIO High 10-20 [facility] Comment on above: Performed By: #### L 500.2500, L100.0100 ####[facility] [address] [place], [address] CA,Total 10.0 mg/dL Normal 8.5-10.1 [facility] Comment on above: Performed By: #### L 500.2500, L100.0100 ####[facility] [address] [place], [address] Chloride [Moles/Vol] 102 mmol/L Normal 98-107 [facility] Comment on above: Performed By: #### L 500.2500, L100.0100 ####[facility] [address] [place], [address] CO2 [Moles/Vol] 22.0 mmol/L Normal 21.0-32.0 [facility] Comment on above: Performed By: #### L 500.2500, L100.0100 ####[facility] [address] [place], [address] Creatinine [Mass/Vol] 1.07 mg/dL High 0.55-1.02 [facility] Comment on above: Result Comment: The validity of the calculated GFR GFRAA in patients over70 years has not been determined. Clinical correlation isessential. Performed By: #### L 500.2500, L100.0100 ####[facility] [address] [place], [address] ECRCL 41.87 ml/min Normal [facility] Comment on above: Performed By: #### L 500.2500, L100.0100 ####[facility] [address] [place], [address] EST GFR - AA 64 mL/min Normal >60 [facility] Comment on above: Result Comment: Afri can Egyptian GFR Calc Performed By: #### L 500.2500, L100.0100 ####[facility] [address] [place], [address] GAP 12 Normal 5-15 [facility] Comment on above: Performed By: #### L 500.2500, L100.0100 ####[facility] [address] [place], [address] GFR/1.73 sq M.predicted among non-blacks MDRD (S/P/Bld) [Vol rate/Area] 53 mL/min/{1.73_m2} Low >60 [facility] Comment on above: Result Comment: Non- GFR Calc Performed By: #### L 500.2500, L100.0100 ####[facility] [address] [place], [address] Glucose [Mass/Vol] 274 mg/dL High 74-106 [facility] Comment on above: Result Comment: Gluc ose result greater than or equal to 200 mg/dLsuggests DIABETES MELLITUS per A.D.A. criteria. Performed By: #### L 500.2500, L100.0100 ####[facility] [address] [place], [address] Potassium [Moles/Vol] 3.5 mmol/L Normal 3.5-5.1 [facility] Comment on above: Performed By: #### L 500.2500, L100.0100 ####[facility] [address] [place], [address] Sodium [Moles/Vol] 136 mmol/L Normal 136-145 [facility] Comment on above: Performed By: #### L 500.2500, L100.0100 ####[facility] [address] [place], [address] Urea nitrogen [Mass/Vol] 22 mg/dL High 7-18 [facility] Comment on above: Performed By: #### L 500.2500, L100.0100 ####[facility] [address] [place], [address] Bedside Glucoseon 01-11-2024 FINGERSTICK GLU 267 mg/dL High 74-106 [facility] Comment on above: Result Comment: ADAL GOODEN OF PATIENT CARE PER NURSING PROTOCOL Performed By: #### L 501.080 ####[facility] [address] [place], [address] CBC AND ELECTRONIC DIFFOrder ed By: Aparna Amezcua on 01-11-2024 Basophils (Bld) [#/Vol] 0.06 10*3/uL 0.00 - 0.15 K[facility]L [facility] Bas[facility]/100 WBC (Bld) 0.7 % [facility] Differential cell count method Nom (Bld) Electronic Differential [facility] Eosinophils (Bld) [#/Vol] K/uL 0.00 - 0.42 K/uL [facility] Eosinophils/100 WBC (Bld) 0.3 % [facility] Erythrocyte distribution width (RBC) [Ratio] 12.5 % 10.8 - 14.9 % [facility] Hematocrit (Bld) [Volume fraction] 38.5 % 34.9 - 44.3 % [facility] Hemoglobin (Bld) [Mass/Vol] 12.4 g/dL 11.4 - 15.2 g/dL [facility] Immature granulocytes (Bld) [#/Vol] K/uL NINF - 0.08 K/uL [facility] Immature granulocytes/100 WBC (Bld) 0.2 % [facility] Interpretation and review of laboratory results Abnormal [facility] Lymphocytes (Bld) [#/Vol] 1.06 10*3/uL Low 1.16 - 3.51 K/uL [facility] Lymphocytes/100 WBC (Bld) 11.7 % [facility] MCH (RBC) [Entitic mass] 27.9 pg 25.9 - 33.9 pg [facility] MCHC (RBC) [Mass/Vol] 32.2 g/dL 31.4 - 35.9 g/dL [facility] MCV (RBC) [Entitic vol] 86.7 fL 79.6 - 97.7 fL [facility] Monocytes (Bld) [#/Vol] 0.62 10*3/uL 0.22 - 0.87 K/uL [facility] Monocytes/100 WBC (Bld) 6.9 % [facility] Neutrophils (Bld) [#/Vol] 7.24 10*3/uL 1.64 - 7.28 K/uL [facility] Nucleated RBC/100 WBC (Bld) [Ratio] 0.0 % [facility] Platelet mean volume (Bld) [Entitic vol] 10.8 fL 8.5 - 12.2 fL [facility] Platelets (Bld) [#/Vol] 274 10*3/uL 150 - 393 K/uL [facility] RBC (Bld) [#/Vol] 4.44 10*6/uL [facility] Segmented neutrophils/100 WBC (Bld) 80.2 % [facility] WBC (Bld) [#/Vol] 9.03 10*3/uL 3.99 - 11. 19 K/uL [facility] CBC AND ELECTRONIC DIFFon Abs Eos Auto < Normal 0.00-0.42 [facility] Comment on above: Performed By: #### S URGP #### [facility] (DEFAULT) [address] [place] [address]24 Basophils (Bld) [#/Vol] 0.06 10*3/uL Normal 0.00-0.15 [facility] Comment on above: Performed By: #### S URGP #### [facility] (DEFAULT) [address] [place] [address] 54148 Basophils/100 WBC (Bld) 0.7 % Normal [facility] Comment on above: Performed By: #### S URGP #### [facility] (DEFAULT) [address] [place] [address] 78971 DIFF STATUS Electronic Differential Normal [facility] Comment on above: Performed By: #### S URGP #### [facility] (DEFAULT) [address] [place] [address] 73003 Eosinophils/100 WBC (Bld) 0.3 % Normal [facility] Comment on above: Performed By: #### S URGP #### [facility] (DEFAULT) [address] [address] Hematocrit (Bld) [Volume fraction] 38.5 % Normal 34.9-44.3 [facility] Comment on above: Performed By: #### S URGP #### [facility] (DEFAULT) [address] [address] Hemoglobin (Bld) [Mass/Vol] 12.4 g/dL Normal 11.4-15.2 [facility] Comment on above: Performed By: #### S URGP #### [facility] (DEFAULT) [address] [place] [address] 53084 Immature Grans % 0.2 % Normal [facility] Comment on above: Performed By: #### S URGP #### [facility] (DEFAULT) [address] [address] Immature Grans Absolute < Normal <=0.08 [facility] Comment on above: Performed By: #### S URGP #### [facility] (DEFAULT) [address] [address] Lymphocytes (Bld) [#/Vol] 1.06 10*3/uL Low 1.16-3.51 [facility] Comment on above: Performed By: #### S URGP #### [facility] (DEFAULT) [address] [address] Lymphocytes/100 WBC (Bld) 11.7 % Normal [facility] Comment on above: Performed By: #### S URGP #### [facility] (DEFAULT) [address] [address] MCV (RBC) [Entitic vol] 86.7 fL Normal 79.6-97.7 [facility] Comment on above: Performed By: #### S URGP #### [facility] (DEFAULT) [address] [address] Mean Cell Hgb 27.9 pg Normal 25.9-33.9 [facility] Comment on above: Performed By: #### S URGP #### [facility] (DEFAULT) [address] [address] Mean Cell Hgb Conc 32.2 g/dL Normal 31.4-35.9 [facility] Comment on above: Performed By: #### S URGP #### [facility] (DEFAULT) [address] [place] [address] Monocytes (Bld) [#/Vol] 0.62 10*3/uL Normal 0.22-0.87 [facility] Comment on above: Performed By: #### S URGP #### [facility] (DEFAULT) [address] [place] [address] 739[address] Monocytes/100 WBC (Bld) 6.9 % Normal [facility] Comment on above: Performed By: #### S URGP #### [facility] (DEFAULT) [address] [place] [address] 60151 Nucleated RBC 0.0 /100 WBC Normal <=0.2 [facility] Comment on above: Performed By: #### S URGP #### [facility] (DEFAULT) [address] [place] [address] Platelet mean volume (Bld) [Entitic vol] 10.8 fL Normal 8.5-12.2 [facility] Comment on above: Performed By: #### S URGP #### [facility] (DEFAULT) [address] [address] Platelets (Bld) [#/Vol] 274 10*3/uL Normal 150-393 [facility] Comment on above: Performed By: #### S URGP #### [facility] (DEFAULT) [address] [address] RBC (Bld) [#/Vol] 4.44 10*6/uL Normal 3.91-5.04 [facility] Comment on above: Performed By: #### S URGP #### [facility] (DEFAULT) [address] [place] [address] 76870 RBC Distribution 12.5 % Normal 10.8-14.9 [facility] Comment on above: Performed By: #### S URGP #### [facility] (DEFAULT) [address] [address] Segs + Bands Auto 80.2 % Normal [facility] Comment on above: Performed By: #### S URGP #### [facility] (DEFAULT) [address] [address] Segs + Bands,Absolute Auto 7.24 K/uL Normal 1.64-7.28 [facility] Comment on above: Performed By: #### S URGP #### [facility] (DEFAULT) [address] [place] [address] WBC (Bld) [#/Vol] 9.03 10*3/uL Normal 3.99-11.19 [facility] Comment on above: Performed By: #### S URGP #### [facility] (DEFAULT) [address] [place] [address] CBC W/Diff, Automatedon 12-15 Absolute Lymph 1.26 X10 3/uL Normal 0.83-4.51 [facility] Comment on above: Performed By: #### L 500.2500, L100.0100 ####[facility] [address] [place], [address] Absolute Neut 9.3 X10 3/uL High 2.0-7.7 [facility] Comment on above: Performed By: #### L 500.2500, L100.0100 ####[facility] [address] [place], [address] Basophils/100 WBC (Bld) 0.6 % Normal 0-1 [facility] Comment on above: Performed By: #### L 500.2500, L100.0100 ####[facility] [address] [place], [address] Eosinophils/100 WBC (Bld) 0.7 % Normal 0-5 [facility] Comment on above: Performed By: #### L 500.2500, L100.0100 ####[facility] [address] [place], [address] Erythrocyte distribution width (RBC) [Ratio] 12.3 % Normal 11.6-14.6 [facility] Comment on above: Performed By: #### L 500.2500, L100.0100 ####[facility] [address] [place], [address] Hematocrit (Bld) [Volume fraction] 39.0 % Normal 37-47 [facility] Comment on above: Performed By: #### L 500.2500, L100.0100 ####[facility] [address] [place], [address] Hemoglobin (Bld) [Mass/Vol] 12.4 g/dL Normal 12.0-15.0 [facility] Comment on above: Performed By: #### L 500.2500, L100.0100 ####[facility] [address] [place], [address] IG% 0.300 Normal 0.0-0.9 [facility] Comment on above: Result Comment: IG% - Immature Granulocytes (promyelocytes, myelocytes andmetamyelocytes) > 1% indicates that a LEFT SHIFT is Present. Performed By: #### L 500.2500, L100.0100 ####[facility] [address] [place], [address] Lymphocytes/100 WBC (Bld) 10.9 % Low 19-41 [facility] Comment on above: Performed By: #### L 500.2500, L100.0100 ####[facility] [address] [place], [address] MCH (RBC) [Entitic mass] 27.8 pg Normal 27.0-32.0 [facility] Comment on above: Performed By: #### L 500.2500, L100.0100 ####[facility] [address] [place], [address] MCHC (RBC) [Mass/Vol] 31.8 g/dL Low 32-36 [facility] Comment on above: Performed By: #### L 500.2500, L100.0100 ####[facility] [address] [place], [address] MCV (RBC) [Entitic vol] 87.4 fL Normal 81-99 [facility] Comment on above: Performed By: #### L 500.2500, L100.0100 ####[facility] [address] [place], [address] Monocytes/100 WBC (Bld) 7.4 % Normal 0-10 [facility] Comment on above: Performed By: #### L 500.2500, L100.0100 ####[facility] [address] [place], [address] Neutrophils/100 WBC (Bld) 80.1 % High 47-70 [facility] Comment on above: Performed By: #### L 500.2500, L100.0100 ####[facility] [address] [place], [address] Nucleated RBC (Bld) [#/Vol] 0 10*3/uL Normal 0-5 [facility] Comment on above: Performed By: #### L 500.2500, L100.0100 ####[facility] [address] [place], [address] Platelet mean volume (Bld) [Entitic vol] 10.3 fL Normal 6.2-12.0 [facility] Comment on above: Performed By: #### L 500.2500, L100.0100 ####[facility] [address] [place], [address] Platelets (Bld) [#/Vol] 270 10*3/uL Normal 150-450 [facility] Comment on above: Performed By: #### L 500.2500, L100.0100 ####[facility] [address] [place], [address] RBC (Bld) [#/Vol] 4.46 10*6/uL Normal 4.2-5.4 [facility] Comment on above: Performed By: #### L 500.2500, L100.0100 ####[facility] [address] [place], [address] RDW SD 39.7 fl Normal 35.1-43.9 [facility] Comment on above: Performed By: #### L 500.2500, L100.0100 ####[facility] [address] [place] [address], [address] WBC (Bld) [#/Vol] 11.6 10*3/uL High 4.4-11.0 [facility] Comment on above: Performed By: #### L 500.2500, L100.0100 ####[facility] [address] [place], [address] CHEM 7 (LYTES,BUN,CREA,GLUC) Ordered By: Kwaku Schwab on 01-11-2024 Anion gap [Moles/Vol] 24 mmol/L High 7 - 17 mmol/L [facility] Chloride [Moles/Vol] 99 mmol/L 98 - 10 8 mmol/L [facility] CO2 [Moles/Vol] 18 mmol/L Low 21 - 31 mmol/L [facility] Creatinine [Mass/Vol] 1.11 mg/dL 0.50 - 1.20 mg/dL [facility] eGFR, CKD-EPI, Female 52 Low - PINF [facility] Glucose [Mass/Vol] 294 mg/dL High 70 - 99 mg/dL [facility] Interpretation and review of laboratory results Abnormal [facility] Osmolality Calc [Osmolality] 303 [facility] Potassium [Moles/Vol] 4.1 mmol/L 3.5 - 5.0 mmol/L [facility] Sodium [Moles/Vol] 137 mmol/L 135 - 145 mmol/L [facility] Urea nitrogen [Mass/Vol] 23 mg/dL 7 - 25 mg/dL [facility] Urea nitrogen/Creatinine [Mass ratio] 21 mg[facility] CHEM 7 (LYTES,BUN,CREA,GLUC) on 01-11-2024 Anion gap [Moles/Vol] 24 mmol/L High 7-17 [facility] Comment on above: Performed By: #### José Quñiones, MGO #### [facility] (DEFAULT) [address] [place] [address] Chloride [Moles/Vol] 99 mmol/L Normal 98-108 [facility] Comment on above: Performed By: #### José Quiñones, MGO #### [facility] (DEFAULT) [address] [place] [address] CO2 [Moles/Vol] 18 mmol/L Low 21-31 [facility] Comment on above: Performed By: #### José Quiñones, MGO #### [facility] (DEFAULT) [address] [place] [address] Creatinine [Mass/Vol] 1.11 mg/dL Normal 0.50-1.20 [facility] Comment on above: Performed By: #### José Quiñones, MGO #### [facility] (DEFAULT) [address] [place] [address] GFR/1.73 sq M.predicted among non-blacks MDRD (S/P/Bld) [Vol rate/Area] 52 mL/min/{1.73_m2} Low >=60 [facility] Comment on above: Result Comment: Repo rted eGFR is based on the CKD-EPI 2020 equation using creatinine, age, and sex. Performed By: #### José Quiñones, MGO #### [facility] (DEFAULT) [address] [place] [address] Glucose [Mass/Vol] 294 mg/dL High 70-99 [facility] Comment on above: Performed By: #### José 7C, MGO #### [facility] (DEFAULT) [address] [place] [address] Osmolality [Osmolality] 303 mosm/kg Normal 278-305 [facility] Comment on above: Performed By: #### José Quiñones, MGO #### [facility] (DEFAULT) [address] [place] [address] Potassium [Moles/Vol] 4.1 mmol/L Normal 3.5-5.0 [facility] Comment on above: Performed By: #### C 7C, MGO #### [facility] (DEFAULT) [address] [place] [address] Sodium [Moles/Vol] 137 mmol/L Normal 135-145 [facility] Comment on above: Performed By: #### C 7C, MGO #### [facility] (DEFAULT) [address] [place] [address] Urea nitrogen [Mass/Vol] 23 mg/dL Normal 7-25 [facility] Comment on above: Performed By: #### José 7C, MGO #### [facility] (DEFAULT) [address] [place] [address] Urea nitrogen/Creatinine [Mass ratio] 21 mg/mg Normal [facility] Comment on above: Performed By: #### José 7C, MGO #### [facility] (DEFAULT) [address] [place] [address] CSF DIFFERENTIALon 4 Basophils (Csf) 0 % Normal [facility] Comment on above: Result Comment: The reference range has not been established for this parameter for this fluid. Clinical correlation is recommended. Performed By: #### L [id number] #### [facility] (DEFAULT) [address] [place] [address] Cells Counted (CSF) 100 Normal [facility] Comment on above: Performed By: #### L [id number] #### [facility] (DEFAULT) [address] [address] Comment (Csf) Normal [facility] Comment on above: Result Comment: No u nequivocal organisms seen. Blood is present. Acute and chronic inflammatory cells present. Correlation with gram stain and culture recommended. Performed By: #### L [id number] #### [facility] (DEFAULT) [address] [place] [address] CSF Tube Number CSF TUBE 4 Normal [facility] Comment on above: Performed By: #### L [id number] #### [facility] (DEFAULT) [address] [place] [address] Performed By: #### B FLD #### [facility] (DEFAULT) [address] [place] [address] Differential Reviewed By Montez Davis MD Normal [facility] Comment on above: Performed By: #### L [id number] #### [facility] (DEFAULT) [address] [place] [address] Eosinophils (Csf) 0 % Normal [facility] Comment on above: Result Comment: The reference range has not been established for this parameter for this fluid. Clinical correlation is recommended. Performed By: #### L [id number] #### [facility] (DEFAULT) [address] [address] Lymphocytes (Csf) 48 % Normal 40-80 [facility] Comment on above: Performed By: #### L [id number] #### [facility] (DEFAULT) [address] [address] Monocytes/Macrophages , CSF 6 % Low 15-45 [facility] Comment on above: Performed By: #### L [id number] #### [facility] (DEFAULT) [address] [address] Neutrophils (Csf) 44 % High <=6 [facility] Comment on above: Performed By: #### L [id number] #### [facility] (DEFAULT) [address] [address] Nucleated RBC/100 WBC (Bld) [Ratio] 2 % Normal [facility] Comment on above: Result Comment: The reference range has not been established for this parameter for this fluid. Clinical correlation is recommended. Performed By: #### L [id number] #### [facility] (DEFAULT) [address] [place] [address] CSF FLUID COUNT ONLYOrdered By: Lottie White on 01-11-2024 Appearance (Body fld) [facility] Appearance (Body fld) Not Indicated [facility] Interpretation and review of laboratory results Abnormal [facility] RBC Manual cnt (CSF) [#/Vol] 248 /uL High NINF - 3 /uL [facility] Tube number Nom (CSF) [ID] CSF TUBE 4 [facility] WBC Manual cnt (CSF) [#/Vol] 5 /uL NINF - 6 /uL [facility] CSF FLUID COUNT ONLYon 01-10 Gross Appearance (Csf) Normal [facility] Comment on above: Result Comment: Eliz Stone Performed By: #### B FLD #### [facility] (DEFAULT) [address] [place] [address] RBC (Bld) [#/Vol] 0.63910 10*6/uL High <3 [facility] Comment on above: Performed By: #### B FLD #### [facility] (DEFAULT) [address] [place] [address] Supernatant (Csf) Not Indicated Normal [facility] Comment on above: Performed By: #### B FLD #### [facility] (DEFAULT) [address] [place] [address] Total Nucleated Cells (TNC CSF) 5 /uL Normal <6 [facility] Comment on above: Performed By: #### B FLD #### [facility] (DEFAULT) [address] [place] [address] CSF TECH DIFFERENTIALOrdered By: Adry Bernard on 01-11-2024 [facility] ENCEPHALOPATHY, AUTOIMMUNE E VALUATION, CSFon 01-11-2024 AGNA-1,CSF Negative Normal Negative [facility] Comment on above: Result Comment: ADDITIONAL INFORMATION This test was developed and its performance characteristics determined by [facility] in a manner consistent with CLIA requirements. This test has not been cleared or approved by the U.S. Food and Drug Administration. Performed By: #### Genia FLGennaro #### [facility] (DEFAULT) [address] [place] [address] AMPA-R AB CBA, CSF Negative Normal Negative [facility] Comment on above: Result Comment: ADDITIONAL INFORMATION This test was developed and its performance characteristics determined by [facility] in a manner consistent with CLIA requirements. This test has not been cleared or approved by the U.S. Food and Drug Administration. Performed By: ###Glenna Cormier FLGennaro #### [facility] (DEFAULT) [address] [place] [address] AMPHIPHYSIN AB, CSF Negative Normal Negative [facility] Comment on above: Result Comment: ADDITIONAL INFORMATION This test was developed and its performance characteristics determined by [facility] in a manner consistent with CLIA requirements. This test has not been cleared or approved by the [place].S. Food and Drug Administration. Performed By: #### Genia FLD #### [facility] (DEFAULT) [address] [place] [address] LANRE-1, CSF Negative Normal Negative [facility] Comment on above: Result Comment: ADDITIONAL INFORMATION This test was developed and its performance characteristics determined by [facility] in a manner consistent with CLIA requirements. This test has not been cleared or approved by the U.S. Food and Drug Administration. Performed By: #### Genia FLD #### [facility] (DEFAULT) [address] [place] [address] LANRE-2,CSF Negative Normal Negative [facility] Comment on above: Result Comment: ADDITIONAL INFORMATION This test was developed and its performance characteristics determined by [facility] in a manner consistent with CLIA requirements. This test has not been cleared or approved by the U.S. Food and Drug Administration. Performed By: #### B FLD #### [facility] (DEFAULT) [address] [place] [address] LANRE-3,CSF Negative Normal Negative [facility] Comment on above: Result Comment: ADDITIONAL INFORMATION This test was developed and its performance characteristics determined by [facility] in a manner consistent with CLIA requirements. This test has not been cleared or approved by the U.S. Food and Drug Administration. Performed By: #### Genia FLD #### [facility] (DEFAULT) [address] [place] [address] CASPR2-IgG CBA, CSF Negative Normal Negative [facility] Comment on above: Result Comment: ADDITIONAL INFORMATION This test was developed and its performance characteristics determined by [facility] in a manner consistent with CLIA requirements. This test has not been cleared or approved by the U.S. Food and Drug Administration. Performed By: #### B FLD #### [facility] (DEFAULT) [address] [place] [address] CRMP-5-IGG,CSF Negative Normal Negative [facility] Comment on above: Result Comment: ADDITIONAL INFORMATION This test was developed and its performance characteristics determined by [facility] in a manner consistent with CLIA requirements. This test has not been cleared or approved by the U.S. Food and Drug Administration. Performed By: ###Glenna BAUTISTA #### [facility] (DEFAULT) [address] [place] [address] DPPX AB CBA,CSF Negative Normal Negative [facility] Comment on above: Result Comment: ADDITIONAL INFORMATION This test was developed and its performance characteristics determined by [facility] in a manner consistent with CLIA requirements. This test has not been cleared or approved by the U.S. Food and Drug Administration. Performed By: ###Glenna BAUTISTA #### [facility] (DEFAULT) [address] [place] [address] Encephalopathy, Interpretation, CSF SEE COMMENTS Normal [facility] Comment on above: Result Comment: No i nformative autoantibodies were detected in this evaluation. However, a negative result does not exclude autoimmune encephalopathy, idiopathic or paraneoplastic. Sensitivity and specificity of antibody testing are enhanced by testing both serum and CSF. Performed By: ##Kevin B MICHELE #### [facility] (DEFAULT) [address] [place] [address] RICH-B-R AB CBA, CSF Negative Normal Negative [facility] Comment on above: Result Comment: ADDITIONAL INFORMATION This test was developed and its performance characteristics determined by [facility] in a manner consistent with CLIA requirements. This test has not been cleared or approved by the U.S. Food and Drug Administration. Performed By: #### B FLGennaro #### [facility] (DEFAULT) [address] [place] [address] GAD65 AB ASSAY, CSF 0.00 nmol/L Normal <= 0.02 [facility] Comment on above: Result Comment: ADDITIONAL INFORMATION This test was developed and its performance characteristics determined by [facility] in a manner consistent with CLIA requirements. This test has not been cleared or approved by the U.S. Food and Drug Administration. Performed By: #### B FLD #### [facility] (DEFAULT) [address] [place] [address] GFAP IFA, CSF Negative Normal Negative [facility] Comment on above: Result Comment: ADDITIONAL INFORMATION This test was developed and its performance characteristics determined by [facility] in a manner consistent with CLIA requirements. This test has not been cleared or approved by the U.S. Food and Drug Administration. Performed By: #### Genia FLD #### [facility] (DEFAULT) [address] [place] [address] IFA Notes None. Normal [facility] Comment on above: Performed By: #### Genia FLD #### [facility] (DEFAULT) [address] [place] [address] IgLON5 CBA, CSF Negative Normal Negative [facility] Comment on above: Result Comment: ADDITIONAL INFORMATION This test was developed and its performance characteristics determined by [facility] in a manner consistent with CLIA requirements. This test has not been cleared or approved by the U.S. Food and Drug Administration. Performed By: #### Genia FLD #### [facility] (DEFAULT) [address] [place] [address] LGI1-IgG,CBA,csf Negative Normal Negative [facility] Comment on above: Result Comment: ADDITIONAL INFORMATION This test was developed and its performance characteristics determined by [facility] in a manner consistent with CLIA requirements. This test has not been cleared or approved by the U.S. Food and Drug Administration. Performed By: ###Glenna BAUTISTA #### [facility] (DEFAULT) [address] [place] [address] MGLUR1 AB, IFA, CSF Negative Normal Negative [facility] Comment on above: Result Comment: ADDITIONAL INFORMATION This test was developed and its performance characteristics determined by [facility] in a manner consistent with CLIA requirements. This test has not been cleared or approved by the U.S. Food and Drug Administration. Performed By: ###Glenna Cormier FLGennaro #### [facility] (DEFAULT) [address] [place] [address] Neurochondrin IFA, CSF Negative Normal Negative [facility] Comment on above: Result Comment: ADDITIONAL INFORMATION This test was developed and its performance characteristics determined by [facility] in a manner consistent with CLIA requirements. This test has not been cleared or approved by the U.S. Food and Drug Administration. Performed By: #### Genia FLGennaro #### [facility] (DEFAULT) [address] [place] [address] NIF IFA, CSF Negative Normal Negative [facility] Comment on above: Result Comment: ADDITIONAL INFORMATION This test was developed and its performance characteristics determined by [facility] in a manner consistent with CLIA requirements. This test has not been cleared or approved by the U.S. Food and Drug Administration. Performed By: #### Genia FLD #### [facility] (DEFAULT) [address] [place] [address] NMDA-R AB CBA, CSF Negative Normal Negative [facility] Comment on above: Result Comment: ADDITIONAL INFORMATION This test was developed and its performance characteristics determined by [facility] in a manner consistent with CLIA requirements. This test has not been cleared or approved by the U.S. Food and Drug Administration. Performed By: #### B FLD #### [facility] (DEFAULT) [address] [place] [address] CEMENT DESPATCH OPERATOR-1,CSF Negative Normal Negative [facility] Comment on above: Result Comment: ADDITIONAL INFORMATION This test was developed and its performance characteristics determined by [facility] in a manner consistent with CLIA requirements. This test has not been cleared or approved by the U.S. Food and Drug Administration. Performed By: #### Genia FLD #### [facility] (DEFAULT) [address] [place] [address] CEMENT DESPATCH OPERATOR-2,CSF Negative Normal Negative [facility] Comment on above: Result Comment: ADDITIONAL INFORMATION This test was developed and its performance characteristics determined by [facility] in a manner consistent with CLIA requirements. This test has not been cleared or approved by the U.S. Food and Drug Administration. Performed By: #### B FLD #### [facility] (DEFAULT) [address] [place] [address] CEMENT DESPATCH OPERATOR-TR,CSF Negative Normal Negative [facility] Comment on above: Result Comment: ADDITIONAL INFORMATION This test was developed and its performance characteristics determined by [facility] in a manner consistent with CLIA requirements. This test has not been cleared or approved by the U.S. Food and Drug Administration. Performed By: #### Genia FLD #### [facility] (DEFAULT) [address] [address] PDE10A AB IFA, CSF Negative Normal Negative [facility] Comment on above: Result Comment: ADDITIONAL INFORMATION This test was developed and its performance characteristics determined by [facility] in a manner consistent with CLIA requirements. This test has not been cleared or approved by the U.S. Food and Drug Administration. Performed By: ###Glenna Cormier FLD #### [facility] (DEFAULT) [address] [place] [address] Septin-7 IFA, CSF Negative Normal Negative [facility] Comment on above: Result Comment: ADDITIONAL INFORMATION This test was developed and its performance characteristics determined by [facility] in a manner consistent with CLIA requirements. This test has not been cleared or approved by the U.S. Food and Drug Administration. Performed By: #### Genia FLD #### [facility] (DEFAULT) [address] [place] [address] Tripartite Motif-Containing Protein 46 IgG IFA, CSF Negative Normal Negative [facility] Comment on above: Result Comment: ADDITIONAL INFORMATION This test was developed and its performance characteristics determined by [facility] in a manner consistent with CLIA requirements. This test has not been cleared or approved by the U.S. Food and Drug Administration. Test Performed by: [address] [address] Journalist: Dennis Shields Ph.D.; CLIA# [id number] Performed By: ###Glenna Cormier FLD #### [facility] (DEFAULT) [address] [address] GENERAL PROCEDUREon 01-11-20 [facility] Radiology Study observation (narrative) [facility] GLUCOSE POCon 01-11-2024 Glucose [Mass/Vol] 268 mg/dL High 70 - 99 mg/dL [facility] Interpretation and review of laboratory results Abnormal [facility] POC Sample Type [facility] 1 AND 2 ANTIBODIES/P24 A NTIGENOrdered By: Sandy Fernandez on 01-11-2024 HIV 1+2 Ab+HIV1 p24 Ag IA Ql Non-Reactive Non Reactive [facility] Interpretation and review of laboratory results Normal [facility] HIV 1 AND 2 ANTIBODIES/P24 A NTIGENon 01-11-2024 HIV-1/HIV-2 Ab With p24 Antigen Non-Reactive Normal Non Reactive [facility] Comment on above: Performed By: #### S URGP #### [facility] (DEFAULT) [address] [address] LYME ABon 01-11-2024 Lyme Antibody Negative Normal Negative [facility] Comment on above: Performed By: #### M GO, CHM7, HFP #### [facility] (DEFAULT) [address] [address] LYME DISEASE BY PCR, FLUIDon 01-11-2024 B. BURGDORFERI AB Negative Normal Negative [facility] Comment on above: Performed By: #### B FLD #### [facility] (DEFAULT) [address] [address] B. garinii/B. afzelii Negative Normal Negative [facility] Comment on above: Performed By: #### B FLD #### [facility] (DEFAULT) [address] [address] B. mayonii Negative Normal Negative [facility] Comment on above: Performed By: #### B FLD #### [facility] (DEFAULT) [address] [address] Borrelia Species DNA Detection by PCR SEE COMMENTS Normal [facility] Comment on above: Result Comment: If c linical features of illness are highly indicative of Lyme neuroborreliosis, additional serological testing would be recommended. ADDITIONAL INFORMATION This test was developed and its performance characteristics determined by [facility] in a manner consistent with CLIA requirements. This test has not been cleared or approved by the U.S. Food and Drug Administration. Test Performed by: [facility] [place] [address] Journalist: Dennis Shields Ph.D.; CLIA# [id number] Performed By: #### B FLD #### [facility] (DEFAULT) [address] [address] Borrelia Species Source csf Normal [facility] Comment on above: Performed By: #### B FLD #### [facility] (DEFAULT) [address] [address] MENINGITIS/ENCEPHALITIS PANE L, CSFOrdered By: Binu Gamino on 01-11-2024 C. gattii+neoformans DNA JAYLIN+non-probe Ql (CSF) Not detected Not Detected [facility] CMV DNA JAYLIN+non-probe Ql (CSF) Not detected Not Detected [facility] E. coli K1 DNA JAYLIN+non-probe Ql (CSF) Not detected Not Detected [facility] Enterovirus RNA JAYLIN+non-probe Ql (CSF) Not detected Not Detected [facility] H. influenzae DNA JAYLIN+non-probe Ql (CSF) Not detected Not Detected [facility] HHV 6 DNA JAYLIN+non-probe Ql (CSF) Not detected Not Detected [facility] HSV 1 DNA JAYLIN+non-probe Ql (CSF) Not detected Not Detected [facility] HSV 2 DNA JAYLIN+non-probe Ql (CSF) Not detected Not Detected [facility] Interpretation and review of laboratory results Normal [facility] [facility] monocytogenes DNA JALYIN+non-probe Ql (CSF) Not detected Not Detected [facility] N. meningitidis DNA JAYLIN+non-probe Ql (CSF) Not detected Not Detected [facility] Parechovirus A RNA JAYLIN+non-probe Ql (CSF) Not detected Not Detected [facility] S. agalactiae DNA JAYLIN+non-probe Ql (CSF) Not detected Not Detected [facility] S. pneumoniae DNA JAYLIN+non-probe Ql (CSF) Not detected Not Detected [facility] VZV DNA JAYLIN+non-probe Ql (CSF) Not detected Not Detected [facility] MENINGITIS/ENCEPHALITIS PANE L, CSFon 01-11-2024 CMV DNA Not detected Normal Not Detected [facility] Comment on above: Order Comment: A neg ative result does not exclude the possibility of AIR TESTER infection and should not be used as [...] neoformans/bárbara. Performed By: #### B FLD #### [facility] (DEFAULT) [address] [place] [address] Cryptococcus Bárbara/Neoformans DNA Not detected Normal Not Detected [facility] Comment on above: Order Comment: A neg ative result does not exclude the possibility of AIR TESTER infection and should not be used as [...] neoformans/bárbara. Performed By: #### B FLD #### [facility] (DEFAULT) [address] [place] [address] E. Coli K1 DNA Not detected Normal Not Detected [facility] Comment on above: Order Comment: A neg ative result does not exclude the possibility of AIR TESTER infection and should not be used as [...] neoformans/bárbara. Performed By: #### B FLD #### [facility] (DEFAULT) [address] [place] [address] Enterovirus RNA Not detected Normal Not Detected [facility] Comment on above: Order Comment: A neg ative result does not exclude the possibility of AIR TESTER infection and should not be used as [...] Performed By: #### B FLD #### [facility] (DEFAULT) [address] [address] Haemophilus Influenza DNA Not detected Normal Not Detected [facility] Comment on above: Order Comment: A neg ative result does not exclude the possibility of AIR TESTER infection and should not be used as [...] Performed By: #### B FLD #### [facility] (DEFAULT) [address] [address] Hhv-6 DNA Not detected Normal Not Detected [facility] Comment on above: Order Comment: A neg ative result does not exclude the possibility of AIR TESTER infection and should not be used as [...] Performed By: #### B FLD #### [facility] (DEFAULT) [address] [place] [address] Hsv-1 DNA Not detected Normal Not Detected [facility] Comment on above: Order Comment: A neg ative result does not exclude the possibility of AIR TESTER infection and should not be used as [...] Performed By: #### B FLD #### [facility] (DEFAULT) [address] [place] [address] Hsv-2 DNA Not detected Normal Not Detected [facility] Comment on above: Order Comment: A neg ative result does not exclude the possibility of AIR TESTER infection and should not be used as [...] Performed By: #### B FLD #### [facility] (DEFAULT) [address] [place] [address] Human Parechovirus RNA Not detected Normal Not Detected [facility] Comment on above: Order Comment: A neg ative result does not exclude the possibility of AIR TESTER infection and should not be used as [...] neoformans/bárbara. Performed By: #### B FLD #### [facility] (DEFAULT) [address] [place] [address] Listeria Monocytogenes DNA Not detected Normal Not Detected [facility] Comment on above: Order Comment: A neg ative result does not exclude the possibility of AIR TESTER infection and should not be used as [...] Performed By: #### B FLD #### [facility] (DEFAULT) [address] [place] [address] Neisseria Meningitidis DNA Not detected Normal Not Detected [facility] Comment on above: Order Comment: A neg ative result does not exclude the possibility of AIR TESTER infection and should not be used as [...] Performed By: #### B FLD #### [facility] (DEFAULT) [address] [address] Streptococcus Agalactiae DNA Not detected Normal Not Detected [facility] Comment on above: Order Comment: A neg ative result does not exclude the possibility of AIR TESTER infection and should not be used as [...] Performed By: #### B FLD #### [facility] (DEFAULT) [address] [address] Streptococcus Pneumoniae DNA Not detected Normal Not Detected [facility] Comment on above: Order Comment: A neg ative result does not exclude the possibility of AIR TESTER infection and should not be used as [...] Performed By: #### B FLD #### [facility] (DEFAULT) [address] [address] Varicella Zoster DNA Not detected Normal Not Detected [facility] Comment on above: Order Comment: A neg ative result does not exclude the possibility of AIR TESTER infection and should not be used as [...] neoformans/bárbara. Performed By: #### B FLD #### [facility] (DEFAULT) [address] [place] [address] PROTEIN & GLUCOSE, CSFOrdere d By: Mackenzie Barnes on 01-11-2024 Glucose (CSF) [Mass/Vol] 143 mg/dL High 40 - 70 mg/dL [facility] Interpretation and review of laboratory results Abnormal [facility] Protein (CSF) [Mass/Vol] 88 mg/dL High 15 - 45 mg/dL [facility] PROTEIN & GLUCOSE, CSFon CSF Glucose 143 mg/dL High 40-70 [facility] Comment on above: Performed By: #### B FLD #### [facility] (DEFAULT) [address] [place] [address] CSF Protein 88 mg/dL High 15-45 [facility] Comment on above: Performed By: #### B FLD #### [facility] (DEFAULT) [address] [place] [address] PT,INR,PTTon 01-11-2024 aPTT Coag (PPP) [Time] 32.7 s [facility] INR Coag (Bld) [Relative time] 1.1 {INR} 0.9 - 1.1 [facility] Interpretation and review of laboratory results Abnormal [facility] PT Coag (PPP) [Time] 14.6 s High [facility] aPTT Coag (Bld) [Time] 32.7 s Normal 24.0-34.3 [facility] Comment on above: Performed By: #### LYN MALONEY, HFP #### [facility] (DEFAULT) [address] [place] [address] INR Coag (PPP) [Relative time] 1.1 {INR} Normal 0.9-1.1 [facility] Comment on above: Performed By: #### LYN MALONEY, HFP #### [facility] (DEFAULT) [address] [place] [address] PT Coag (PPP) [Time] 14.6 s High 11.9-14.2 [facility] Comment on above: Performed By: #### LYN MALONEY, HFP #### [facility] (DEFAULT) [address] [place] [address] RF Guidance for fluid aspira tion of Lumbar spine spaceon 01-11-2024 RADIOLOGY RADIOLOGY [facility] Radiology Study observation (narrative) [facility] RF Guidance for fluid aspira tion of Lumbar spine spaceOrdered By: Que Morelos on 01-11-2024 [facility] Work Phone: RPR WITH TITERon 01-11-2024 Reagin Ab RPR Ql (S) Non-Reactive Normal Non Reactive [facility] Comment on above: Performed By: #### LYN MALONEY, HFP #### [facility] (DEFAULT) [address] [place] [address] T. pallidum Ab Ql (S)Ordered By: Rox Victor on 01-11-2024 Interpretation and review of laboratory results Normal [facility] Reagin Ab RPR Ql (S) Non-Reactive Non Reactive [facility] XR FLUORO LUMBAR PUNCTUREon 01-11-2024 XR [...] have reviewed and approved this report. Normal [facility] Basic Metabolic Profile (BMP )on 01-10-2024 BUN/CRE 24.2 RATIO High 10-20 [facility] Comment on above: Performed By: #### L 100.0500, L500.2500 ####[facility] [address] [place], [place], [id number] CA,Total 9.7 mg/dL Normal 8.5-10.1 [facility] Comment on above: Performed By: #### L 100.0500, L500.2500 ####[facility] [address] [place], [address] Chloride [Moles/Vol] 107 mmol/L Normal 98-107 [facility] Comment on above: Performed By: #### L 100.0500, L500.2500 ####[facility] [address] [place], [address] CO2 [Moles/Vol] 23.0 mmol/L Normal 21.0-32.0 [facility] Comment on above: Performed By: #### L 100.0500, L500.2500 ####[facility] [address] [place], [address] Creatinine [Mass/Vol] 1.20 mg/dL High 0.55-1.02 [facility] Comment on above: Result Comment: The validity of the calculated GFR GFRAA in patients over70 years has not been determined. Clinical correlation isessential. Performed By: #### L 100.0500, L500.2500 ####[facility] [address] [place], [address] ECRCL 37.34 ml/min Normal [facility] Comment on above: Performed By: #### L 100.0500, L500.2500 ####[facility] [address] [place], [address] EST GFR - AA 56 mL/min Low >60 [facility] Comment on above: Result Comment: Afri can Egyptian GFR Calc Performed By: #### L 100.0500, L500.2500 ####[facility] [address] [place], [address] GAP 9 Normal 5-15 [facility] Comment on above: Performed By: #### L 100.0500, L500.2500 ####[facility] [address] [place], [address] GFR/1.73 sq M.predicted among non-blacks MDRD (S/P/Bld) [Vol rate/Area] 46 mL/min/{1.73_m2} Low >60 [facility] Comment on above: Result Comment: Non- GFR Calc Performed By: #### L 100.0500, L500.2500 ####[facility] [address] [place], [address] Glucose [Mass/Vol] 225 mg/dL High 74-106 [facility] Comment on above: Result Comment: Gluc ose result greater than or equal to 200 mg/dLsuggests DIABETES MELLITUS per A.D.A. criteria. Performed By: #### L 100.0500, L500.2500 ####[facility] [address] [place], [address] Potassium [Moles/Vol] 3.3 mmol/L Low 3.5-5.1 [facility] Comment on above: Performed By: #### L 100.0500, L500.2500 ####[facility] [address] [place], [address] Sodium [Moles/Vol] 139 mmol/L Normal 136-145 [facility] Comment on above: Performed By: #### L 100.0500, L500.2500 ####[facility] [address] [place], [address] Urea nitrogen [Mass/Vol] 29 mg/dL High 7-18 [facility] Comment on above: Performed By: #### L 100.0500, L500.2500 ####[facility] [address] [place], [address] Bedside Glucoseon 01-10-2024 FINGERSTICK GLU 201 mg/dL High 74-106 [facility] Comment on above: Result Comment: ADAL GEMENT OF PATIENT CARE PER NURSING PROTOCOL Performed By: #### L 501.080 ####[facility] [address] [place], [address] FINGERSTICK GLU 266 mg/dL High 74-106 [facility] Comment on above: Result Comment: ADAL GEMENT OF PATIENT CARE PER NURSING PROTOCOL Performed By: #### L 501.080 ####[facility] [address] [place], [address] CBC-Complete Blood Cnt No Di ffon 01-10-2024 Erythrocyte distribution width (RBC) [Ratio] 12.6 % Normal 11.6-14.6 [facility] Comment on above: Performed By: #### L 100.0500, L500.2500 ####[facility] [address] [place], [address] Hematocrit (Bld) [Volume fraction] 35.7 % Low 37-47 [facility] Comment on above: Performed By: #### L 100.0500, L500.2500 ####[facility] [address] [place], [address] Hemoglobin (Bld) [Mass/Vol] 11.2 g/dL Low 12.0-15.0 [facility] Comment on above: Performed By: #### L 100.0500, L500.2500 ####[facility] [address] [place], [address] MCH (RBC) [Entitic mass] 27.7 pg Normal 27.0-32.0 [facility] Comment on above: Performed By: #### L 100.0500, L500.2500 ####[facility] [address] [place], [address] MCHC (RBC) [Mass/Vol] 31.4 g/dL Low 32-36 [facility] Comment on above: Performed By: #### L 100.0500, L500.2500 ####[facility] [address] [place], [address] MCV (RBC) [Entitic vol] 88.1 fL Normal 81-99 [facility] Comment on above: Performed By: #### L 100.0500, L500.2500 ####[facility] [address] [place], [address] Platelet mean volume (Bld) [Entitic vol] 10.7 fL Normal 6.2-12.0 [facility] Comment on above: Performed By: #### L 100.0500, L500.2500 ####[facility] [address] [place], [address] Platelets (Bld) [#/Vol] 246 10*3/uL Normal 150-450 [facility] Comment on above: Performed By: #### L 100.0500, L500.2500 ####[facility] [address] [place], [address] RBC (Bld) [#/Vol] 4.05 10*6/uL Low 4.2-5.4 [facility] Comment on above: Performed By: #### L 100.0500, L500.2500 ####[facility] [address] [place], [address] RDW SD 40.6 fl Normal 35.1-43.9 [facility] Comment on above: Performed By: #### L 100.0500, L500.2500 ####[facility] [address] [place], [address] WBC (Bld) [#/Vol] 8.6 10*3/uL Normal 4.4-11.0 [facility] Comment on above: Performed By: #### L 100.0500, L500.2500 ####[facility] [address] [place], [address] Consultation - Infectious Dx on 01-10-2024 Consultation - Infectious Dx Normal [facility] RESPIRATORY PANEL MOLECULARo n 01-10-2024 RP PANEL Normal [facility] Comment on above: Performed By: #### M 100.638 ####[facility] [address] [place], [address] Vancomycin, Trough Levelon 0 01-10-2024 VANCO, TROUGH 14.5 ug/mL Normal 5.0-15.0 [facility] Comment on above: Order Comment: Comme nts: Trough to be drawn 30 mins prior to scheduled [id number] Result Comment: VANC OMYCIN STANDARED DRUG THERAPY TROUGH LEVEL: 5.0 - 15.0 mg/LVANCOMYCIN HIGH INTENSITY THERAPY TROUGH LEVEL: 15.0 - 20.0 mg/LHigh Intensity therapy recommended for serious lifethreatening infections include:- Vwvmsvqego-Dtwnsctpqeat-Acfvayays (Ventilator/Healtcare Associated)-SepsisPLEASE CONTACT PHARMACY SERVICES (#4082) FOR INTERPRETATIONOF RESULTS. Performed By: #### L 501.8820 ####[facility] [address] [place], [address] Basic Metabolic Profile (BMP )on 01-09-2024 BUN/CRE 20.6 RATIO High 10-20 [facility] Comment on above: Performed By: #### L 100.0100, L500.2500 ####[facility] [address] [place], [address] CA,Total 10.2 mg/dL High 8.5-10.1 [facility] Comment on above: Performed By: #### L 100.0100, L500.2500 ####[facility] [address] [place], [address] Chloride [Moles/Vol] 104 mmol/L Normal 98-107 [facility] Comment on above: Performed By: #### L 100.0100, L500.2500 ####[facility] [address] [place], [address] CO2 [Moles/Vol] 28.0 mmol/L Normal 21.0-32.0 [facility] Comment on above: Performed By: #### L 100.0100, L500.2500 ####[facility] [address] [place], [address] Creatinine [Mass/Vol] 1.26 mg/dL High 0.55-1.02 [facility] Comment on above: Result Comment: The validity of the calculated GFR GFRAA in patients over70 years has not been determined. Clinical correlation isessential. Performed By: #### L 100.0100, L500.2500 ####[facility] [address] [place], [address] ECRCL 35.56 ml/min Normal [facility] Comment on above: Performed By: #### L 100.0100, L500.2500 ####[facility] [address] [place], [address] EST GFR - AA 53 mL/min Low >60 [facility] Comment on above: Result Comment: Afri can Egyptian GFR Calc Performed By: #### L 100.0100, L500.2500 ####[facility] [address] [place], [address] GAP 7 Normal 5-15 [facility] Comment on above: Performed By: #### L 100.0100, L500.2500 ####[facility] [address] [place], [address] GFR/1.73 sq M.predicted among non-blacks MDRD (S/P/Bld) [Vol rate/Area] 44 mL/min/{1.73_m2} Low >60 [facility] Comment on above: Result Comment: Non- GFR Calc Performed By: #### L 100.0100, L500.2500 ####[facility] [address] [place], [address] Glucose [Mass/Vol] 218 mg/dL High 74-106 [facility] Comment on above: Result Comment: Gluc ose result greater than or equal to 200 mg/dLsuggests DIABETES MELLITUS per A.D.A. criteria. Performed By: #### L 100.0100, L500.2500 ####[facility] [address] [place], [address] Potassium [Moles/Vol] 3.4 mmol/L Low 3.5-5.1 [facility] Comment on above: Performed By: #### L 100.0100, L500.2500 ####[facility] [address] [place], [address] Sodium [Moles/Vol] 139 mmol/L Normal 136-145 [facility] Comment on above: Performed By: #### L 100.0100, L500.2500 ####[facility] [address] [place], [address] Urea nitrogen [Mass/Vol] 26 mg/dL High 7-18 [facility] Comment on above: Performed By: #### L 100.0100, L500.2500 ####[facility] [address] [place], [address] Bedside Glucoseon 01-09-2024 FINGERSTICK GLU 171 mg/dL High 74-106 [facility] Comment on above: Result Comment: ADAL GEMENT OF PATIENT CARE PER NURSING PROTOCOL Performed By: #### L 501.080 ####[facility] [address] [place], [address] FINGERSTICK GLU 182 mg/dL High 74-106 [facility] Comment on above: Result Comment: ADAL GEMENT OF PATIENT CARE PER NURSING PROTOCOL Performed By: #### L 501.080 ####[facility] [address] [place], [address] FINGERSTICK GLU 199 mg/dL High 74-106 [facility] Comment on above: Result Comment: ADAL GEMENT OF PATIENT CARE PER NURSING PROTOCOL Performed By: #### L 501.080 ####[facility] [address] [place], [address] CBC W/Diff, Automatedon 06-2 Absolute Lymph 1.80 X10 3/uL Normal 0.83-4.51 [facility] Comment on above: Performed By: #### L 100.0100, L500.2500 ####[facility] [address] [place], [address] Absolute Neut 10.1 X10 3/uL High 2.0-7.7 [facility] Comment on above: Performed By: #### L 100.0100, L500.2500 ####[facility] [address] [place], [address] Basophils/100 WBC (Bld) 0.4 % Normal 0-1 [facility] Comment on above: Performed By: #### L 100.0100, L500.2500 ####[facility] [address] [place], [address] Eosinophils/100 WBC (Bld) 0.0 % Normal 0-5 [facility] Comment on above: Performed By: #### L 100.0100, L500.2500 ####[facility] [address] [place], [address] Erythrocyte distribution width (RBC) [Ratio] 12.5 % Normal 11.6-14.6 [facility] Comment on above: Performed By: #### L 100.0100, L500.2500 ####[facility] [address] [place], [address] Hematocrit (Bld) [Volume fraction] 34.5 % Low 37-47 [facility] Comment on above: Performed By: #### L 100.0100, L500.2500 ####[facility] [address] [place], [address] Hemoglobin (Bld) [Mass/Vol] 10.9 g/dL Low 12.0-15.0 [facility] Comment on above: Performed By: #### L 100.0100, L500.2500 ####[facility] [address] [place], [address] IG% 0.500 Normal 0.0-0.9 [facility] Comment on above: Result Comment: IG% - Immature Granulocytes (promyelocytes, myelocytes andmetamyelocytes) > 1% indicates that a LEFT SHIFT is Present. Performed By: #### L 100.0100, L500.2500 ####[facility] [address] [place], [address] Lymphocytes/100 WBC (Bld) 13.5 % Low 19-41 [facility] Comment on above: Performed By: #### L 100.0100, L500.2500 ####[facility] [address] [place], [address] MCH (RBC) [Entitic mass] 27.5 pg Normal 27.0-32.0 [facility] Comment on above: Performed By: #### L 100.0100, L500.2500 ####[facility] [address] [place], [address] MCHC (RBC) [Mass/Vol] 31.6 g/dL Low 32-36 [facility] Comment on above: Performed By: #### L 100.0100, L500.2500 ####[facility] [address] [place], [address] MCV (RBC) [Entitic vol] 87.1 fL Normal 81-99 [facility] Comment on above: Performed By: #### L 100.0100, L500.2500 ####[facility] [address] [place], [address] Monocytes/100 WBC (Bld) 10.0 % Normal 0-10 [facility] Comment on above: Performed By: #### L 100.0100, L500.2500 ####[facility] [address] [place], [address] Neutrophils/100 WBC (Bld) 75.6 % High 47-70 [facility] Comment on above: Performed By: #### L 100.0100, L500.2500 ####[facility] [address] [place], [address] Nucleated RBC (Bld) [#/Vol] 0 10*3/uL Normal 0-5 [facility] Comment on above: Performed By: #### L 100.0100, L500.2500 ####[facility] [address] [place], [address] Platelet mean volume (Bld) [Entitic vol] 11.1 fL Normal 6.2-12.0 [facility] Comment on above: Performed By: #### L 100.0100, L500.2500 ####[facility] [address] [place], [address] Platelets (Bld) [#/Vol] 286 10*3/uL Normal 150-450 [facility] Comment on above: Performed By: #### L 100.0100, L500.2500 ####[facility] [address] [place], [address] RBC (Bld) [#/Vol] 3.96 10*6/uL Low 4.2-5.4 [facility] Comment on above: Performed By: #### L 100.0100, L500.2500 ####[facility] [address] [place], [address] RDW SD 39.9 fl Normal 35.1-43.9 [facility] Comment on above: Performed By: #### L 100.0100, L500.2500 ####[facility] [address] [place], [address] WBC (Bld) [#/Vol] 13.3 10*3/uL High 4.4-11.0 [facility] Comment on above: Performed By: #### L 100.0100, L500.2500 ####[facility] [address] [place], [address] Lipid Profileon 01-09-2024 Cholesterol [Mass/Vol] 135 mg/dL Normal 200 [facility] Comment on above: Order Comment: Comme nts: NPO at [place] prior to lipid panel Result Comment: <200 mg/dL Desirable 200-240 mg/dL Borderline >240 mg/dL High Risk Performed By: #### L 500.4100 ####[facility] [address] [place], [address] Cholesterol in HDL [Mass/Vol] 68 mg/dL Normal [facility] Comment on above: Order Comment: Comme nts: NPO at [place] prior to lipid panel Result Comment: The drugs N-Acetylcysteine and Metamizole may falselydepress this assay. Reference Range HDL <40 mg/dL Low HDL Cholesterol HDL >or= 60 mg/dL High HDL Cholesterol Performed By: #### L 500.4100 ####[facility] [address] [place], [address] Cholesterol in LDL [Mass/Vol] 54 mg/dL Normal 0-130 [facility] Comment on above: Order Comment: Comme nts: NPO at [place] prior to lipid panel Performed By: #### L 500.4100 ####[facility] [address] [place], [address] Cholesterol in VLDL [Mass/Vol] 13 mg/dL Normal 5-40 [facility] Comment on above: Order Comment: Comme nts: NPO at [place] prior to lipid panel Performed By: #### L 500.4100 ####[facility] [address] [place], [address] Triglyceride [Mass/Vol] 64 mg/dL Normal [facility] Comment on above: Order Comment: Comme nts: NPO at [place] prior to lipid panel Result Comment: The drugs N-Acetylcysteine and Metamizole may falselydepress this assay.Serum Triglycerides Reference Interval Normal <150 mg/dL Borderline high 150 - 199 mg/dL High 200 - 499 mg/dL Very High > or = 500 mg/dL Performed By: #### L 500.4100 ####[facility] [address] [place], [address] 12 Lead EKGon 01-08-2024 12 Lead EKG Normal [facility] Ammoniaon 01-08-2024 Ammonia (P) [Moles/Vol] 13.0 umol/L Normal 11-32 [facility] Comment on above: Performed By: #### L 500.3400, M200.1000, L503.6005, L503.5510 ####[facility] [address] [place], [address] Basic Metabolic Profile (BMP )on 01-08-2024 BUN/CRE 18.2 RATIO Normal 10-20 [facility] Comment on above: Order Comment: 'TROP ' Serial specimen #1, #2 or #3: 1 Performed By: #### L 300.3900, L300.4310, L100.0100, L500.2500, L501.4020 ####[facility] [address] [place], [address] CA,Total 10.3 mg/dL High 8.5-10.1 [facility] Comment on above: Order Comment: 'TROP ' Serial specimen #1, #2 or #3: 1 Performed By: #### L 300.3900, L300.4310, L100.0100, L500.2500, L501.4020 ####[facility] [address] [place], [address] Chloride [Moles/Vol] 93 mmol/L Low 98-107 [facility] Comment on above: Order Comment: 'TROP ' Serial specimen #1, #2 or #3: 1 Performed By: #### L 300.3900, L300.4310, L100.0100, L500.2500, L501.4020 ####[facility] [address] [place], [address] CO2 [Moles/Vol] 31.0 mmol/L Normal 21.0-32.0 [facility] Comment on above: Order Comment: 'TROP ' Serial specimen #1, #2 or #3: 1 Performed By: #### L 300.3900, L300.4310, L100.0100, L500.2500, L501.4020 ####[facility] [address] [place], [address] Creatinine [Mass/Vol] 1.43 mg/dL High 0.55-1.02 [facility] Comment on above: Order Comment: 'TROP ' Serial specimen #1, #2 or #3: 1 Result Comment: The validity of the calculated GFR GFRAA in patients over70 years has not been determined. Clinical correlation isessential. Performed By: #### L 300.3900, L300.4310, L100.0100, L500.2500, L501.4020 ####[facility] [address] [place], [address] ECRCL 31.33 ml/min Normal [facility] Comment on above: Order Comment: 'TROP ' Serial specimen #1, #2 or #3: 1 Performed By: #### L 300.3900, L300.4310, L100.0100, L500.2500, L501.4020 ####[facility] [address] [place], [address] EST GFR - AA 46 mL/min Low >60 [facility] Comment on above: Order Comment: 'TROP ' Serial specimen #1, #2 or #3: 1 Result Comment: Afri can Egyptian GFR Calc Performed By: #### L 300.3900, L300.4310, L100.0100, L500.2500, L501.4020 ####[facility] [address] [place], [address] GAP 6 Normal 5-15 [facility] Comment on above: Order Comment: 'TROP ' Serial specimen #1, #2 or #3: 1 Performed By: #### L 300.3900, L300.4310, L100.0100, L500.2500, L501.4020 ####[facility] [address] [place], [address] GFR/1.73 sq M.predicted among non-blacks MDRD (S/P/Bld) [Vol rate/Area] 38 mL/min/{1.73_m2} Low >60 [facility] Comment on above: Order Comment: 'TROP ' Serial specimen #1, #2 or #3: 1 Result Comment: Non- GFR Calc Performed By: #### L 300.3900, L300.4310, L100.0100, L500.2500, L501.4020 ####[facility] [address] [place], [address] Glucose [Mass/Vol] 566 mg/dL Invalid Interpretation Code 74106 [facility] Comment on above: Order Comment: 'TROP ' Serial specimen #1, #2 or #3: 1 Result Comment: Crit ical Result(s) Called at: 08:03:04 01/08/2024 by:SAI Saldana. Results read back by same.Glucose result greater than or equal to 200 mg/dLsuggests DIABETES MELLITUS per A.D.A. criteria. Performed By: #### L 300.3900, L300.4310, L100.0100, L500.2500, L501.4020 ####[facility] [address] [place], [address] Potassium [Moles/Vol] 4.0 mmol/L Normal 3.5-5.1 [facility] Comment on above: Order Comment: 'TROP ' Serial specimen #1, #2 or #3: 1 Performed By: #### L 300.3900, L300.4310, L100.0100, L500.2500, L501.4020 ####[facility] [address] [place], [address] Sodium [Moles/Vol] 130 mmol/L Low 136-145 [facility] Comment on above: Order Comment: 'TROP ' Serial specimen #1, #2 or #3: 1 Performed By: #### L 300.3900, L300.4310, L100.0100, L500.2500, L501.4020 ####[facility] [address] [place], [address] Urea nitrogen [Mass/Vol] 26 mg/dL High 7-18 [facility] Comment on above: Order Comment: 'TROP ' Serial specimen #1, #2 or #3: 1 Performed By: #### L 300.3900, L300.4310, L100.0100, L500.2500, L501.4020 ####[facility] [address] [place], [address] Bedside Glucoseon 01-08-2024 FINGERSTICK GLU 240 mg/dL High 74-106 [facility] Comment on above: Result Comment: ADAL GEMENT OF PATIENT CARE PER NURSING PROTOCOL Performed By: #### L 501.080 ####[facility] [address] [place], [address] FINGERSTICK GLU 340 mg/dL High 74-106 [facility] Comment on above: Result Comment: ADAL GEMENT OF PATIENT CARE PER NURSING PROTOCOL Performed By: #### L 501.080 ####[facility] [address] [place], [address] FINGERSTICK GLU > 500 Invalid Interpretation Code 74-106 [facility] Comment on above: Result Comment: Dr Prisca griffith FollowedMANAGEMENT OF PATIENT CARE PER NURSING PROTOCOL Performed By: #### L 501.080 ####[facility] [address] [place], [address] Brain W/WO Contraston 2023 Brain W/WO Contrast Normal [facility] CBC W/Diff, Automatedon 12-15 Absolute Lymph 0.82 X10 3/uL Low 0.83-4.51 [facility] Comment on above: Performed By: #### L 300.3900, L300.4310, L100.0100, L500.2500, L501.4020 ####[facility] [address] [place], [address] Absolute Neut 10.9 X10 3/uL High 2.0-7.7 [facility] Comment on above: Performed By: #### L 300.3900, L300.4310, L100.0100, L500.2500, L501.4020 ####[facility] [address] [place], [address] Basophils/100 WBC (Bld) 0.6 % Normal 0-1 [facility] Comment on above: Performed By: #### L 300.3900, L300.4310, L100.0100, L500.2500, L501.4020 ####[facility] [address] [place], [address] Eosinophils/100 WBC (Bld) 0.4 % Normal 0-5 [facility] Comment on above: Performed By: #### L 300.3900, L300.4310, L100.0100, L500.2500, L501.4020 ####[facility] [address] [place], [address] Erythrocyte distribution width (RBC) [Ratio] 12.2 % Normal 11.6-14.6 [facility] Comment on above: Performed By: #### L 300.3900, L300.4310, L100.0100, L500.2500, L501.4020 ####[facility] [address] [place], [address] Hematocrit (Bld) [Volume fraction] 40.1 % Normal 37-47 [facility] Comment on above: Performed By: #### L 300.3900, L300.4310, L100.0100, L500.2500, L501.4020 ####[facility] [address] [place], [address] Hemoglobin (Bld) [Mass/Vol] 12.7 g/dL Normal 12.0-15.0 [facility] Comment on above: Performed By: #### L 300.3900, L300.4310, L100.0100, L500.2500, L501.4020 ####[facility] [address] [place], [address] IG% 0.200 Normal 0.0-0.9 [facility] Comment on above: Result Comment: IG% - Immature Granulocytes (promyelocytes, myelocytes andmetamyelocytes) > 1% indicates that a LEFT SHIFT is Present. Performed By: #### L 300.3900, L300.4310, L100.0100, L500.2500, L501.4020 ####[facility] [address] [place], [address] Lymphocytes/100 WBC (Bld) 6.7 % Low 19-41 [facility] Comment on above: Performed By: #### L 300.3900, L300.4310, L100.0100, L500.2500, L501.4020 ####[facility] [address] [place], [address] MCH (RBC) [Entitic mass] 27.7 pg Normal 27.0-32.0 [facility] Comment on above: Performed By: #### L 300.3900, L300.4310, L100.0100, L500.2500, L501.4020 ####[facility] [address] [place], [address] MCHC (RBC) [Mass/Vol] 31.7 g/dL Low 32-36 [facility] Comment on above: Performed By: #### L 300.3900, L300.4310, L100.0100, L500.2500, L501.4020 ####[facility] [address] [place], [address] MCV (RBC) [Entitic vol] 87.6 fL Normal 81-99 [facility] Comment on above: Performed By: #### L 300.3900, L300.4310, L100.0100, L500.2500, L501.4020 ####[facility] [address] [place], [address] Monocytes/100 WBC (Bld) 3.7 % Normal 0-10 [facility] Comment on above: Performed By: #### L 300.3900, L300.4310, L100.0100, L500.2500, L501.4020 ####[facility] [address] [place], [address] Neutrophils/100 WBC (Bld) 88.4 % High 47-70 [facility] Comment on above: Performed By: #### L 300.3900, L300.4310, L100.0100, L500.2500, L501.4020 ####[facility] [address] [place], [address] Nucleated RBC (Bld) [#/Vol] 0 10*3/uL Normal 0-5 [facility] Comment on above: Performed By: #### L 300.3900, L300.4310, L100.0100, L500.2500, L501.4020 ####[facility] [address] [place], [address] Platelet mean volume (Bld) [Entitic vol] 11.1 fL Normal 6.2-12.0 [facility] Comment on above: Performed By: #### L 300.3900, L300.4310, L100.0100, L500.2500, L501.4020 ####[facility] [address] [place], [address] Platelets (Bld) [#/Vol] 331 10*3/uL Normal 150-450 [facility] Comment on above: Performed By: #### L 300.3900, L300.4310, L100.0100, L500.2500, L501.4020 ####[facility] [address] [place], [address] RBC (Bld) [#/Vol] 4.58 10*6/uL Normal 4.2-5.4 [facility] Comment on above: Performed By: #### L 300.3900, L300.4310, L100.0100, L500.2500, L501.4020 ####[facility] [address] [place], [address] RDW SD 39.3 fl Normal 35.1-43.9 [facility] Comment on above: Performed By: #### L 300.3900, L300.4310, L100.0100, L500.2500, L501.4020 ####[facility] [address] [place], [address] WBC (Bld) [#/Vol] 12.3 10*3/uL High 4.4-11.0 [facility] Comment on above: Performed By: #### L 300.3900, L300.4310, L100.0100, L500.2500, L501.4020 ####[facility] [address] [place], [address] Chest 1 Viewon 01-08-2024 Chest 1 View Normal [facility] Echo Completeon 01-08-2024 Echo Complete Normal [facility] Emergency Department Summary on 01-08-2024 Emergency Department Summary Normal [facility] H AND P Exam - Hospitaliston 01-08-2024 H&P Exam - Hospitalist Normal [facility] Hemoglobin A1con 01-08-2024 HbA1c (Bld) [Mass fraction] 10.6 % High 3.8-5.6 [facility] Comment on above: Result Comment: Norm al < 5.7 % Prediabetic 5.7 - 6.4 % Diabetic >or= 6.5 % Please note range changes. Performed By: #### L 501.9985, L501.9520, L506.0400 ####[facility] [address] [place], [address] L501.4020on 01-08-2024 TROPONIN-I HS 54 pg/mL Normal 3.0-54.0 [facility] Comment on above: Order Comment: 'TROP ' Serial specimen #1, #2 or #3: 1 Result Comment: Plea se Note: New Test Units and Gender Specific Reference Ranges. For more information see Policy Stat Procedure [place] High Sensitivity Troponin (TNIH) and attachments. Performed By: #### L 300.3900, L300.4310, L100.0100, L500.2500, L501.4020 ####[facility] [address] [place], [address] Lactic Acidon 01-08-2024 Lactate [Moles/Vol] 1.7 mmol/L Normal 0.4-1.9 [facility] Comment on above: Order Comment: PT IN ULTRASOUND, FLOOR WILL CALL WHEN BACK Performed By: #### L 503.6005 ####[facility] [address] [place], [address] Lactate [Moles/Vol] 2.1 mmol/L Invalid Interpretation Code 0.4-1.9 [facility] Comment on above: Order Comment: Y Result Comment: Crit ical Result(s) Called at: 09:10:50 01/08/2024 by: BALJINDER TO KARLOS GUADALUPE. Results read back by same. Performed By: #### L 500.3400, M200.1000, L503.6005, L503.5510 ####[facility] [address] [place], [address] Liver Profileon 01-08-2024 Albumin [Mass/Vol] 4.2 g/dL Normal 3.2-5.0 [facility] Comment on above: Performed By: #### L 500.3400, M200.1000, L503.6005, L503.5510 ####[facility] [address] [place], [address] ALK P 176 U/L High 45-117 [facility] Comment on above: Performed By: #### L 500.3400, M200.1000, L503.6005, L503.5510 ####[facility] [address] [place], [address] ALT [Catalytic activity/Vol] 19 U/L Normal 13-56 [facility] Comment on above: Performed By: #### L 500.3400, M200.1000, L503.6005, L503.5510 ####[facility] [address] [place], [address] AST [Catalytic activity/Vol] 17 U/L Normal 15-37 [facility] Comment on above: Performed By: #### L 500.3400, M200.1000, L503.6005, L503.5510 ####[facility] [address] [place], [address] Bilirubin [Mass/Vol] 0.60 mg/dL Normal 0.20-1.00 [facility] Comment on above: Result Comment: For patients on eltrombopag therapy, use of Dimension [place] TBIL is not recommended. Performed By: #### L 500.3400, M200.1000, L503.6005, L503.5510 ####[facility] [address] [place], [address] Bilirubin.direct [Mass/Vol] 0.21 mg/dL Normal 0.00-0.30 [facility] Comment on above: Performed By: #### L 500.3400, M200.1000, L503.6005, L503.5510 ####[facility] [address] [place], [address] Globulin (S) [Mass/Vol] 4.2 g/dL Normal 2.2-4.2 [facility] Comment on above: Performed By: #### L 500.3400, M200.1000, L503.6005, L503.5510 ####[facility] [address] [place], [address] T PROT 8.4 g/dL High 6.4-8.2 [facility] Comment on above: Performed By: #### L 500.3400, M200.1000, L503.6005, L503.5510 ####[facility] [address] [place], [address] M100.678on 01-08-2024 M100.678 SARS-CoV-2 (COVID 19 ) Negative INFLUENZA A Negative INFLUENZA B Negative RSV PCR Negative Normal [facility] Comment on above: Performed By: #### M 100.678 ####[facility] [address] [place], [address] MR/CON.PCM.NEon 01-08-2024 MR/CON.PCM.NE Normal [facility] Partial Thromboplast Timeon 01-08-2024 aPTT Coag (Bld) [Time] 34.3 s Normal 24.1-36.2 [facility] Comment on above: Performed By: #### L 300.3900, L300.4310, L100.0100, L500.2500, L501.4020 ####[facility] [address] [place], [address] Prothrombin Time w/INRon INR Coag (PPP) [Relative time] 1.2 {INR} Normal [facility] Comment on above: Performed By: #### L 300.3900, L300.4310, L100.0100, L500.2500, L501.4020 ####[facility] [address] [place], [address] PT Coag (PPP) [Time] 15.1 s High 11.7-14.9 [facility] Comment on above: Performed By: #### L 300.3900, L300.4310, L100.0100, L500.2500, L501.4020 ####[facility] [address] [place], [address] STROKE Brain/Head without Co nton 01-08-2024 STROKE Brain/Head without Cont Normal [facility] STROKE CTA Head AND Neck W/C onon 01-08-2024 STROKE CTA Head AND Neck W/Con Normal [facility] T4 Free Directon 01-08-2024 T4 FREE DIRECT 1.31 ng/dL Normal 0.76-1.46 [facility] Comment on above: Performed By: #### L 501.9985, L501.9520, L506.0400 ####[facility] [address] [place], [address] Thyroidon 01-08-2024 Thyroid Normal [facility] Thyroid Stim Hormone (TSH)on 01-08-2024 TSH 0.39 uIU/mL Normal 0.358-3.74 [facility] Comment on above: Performed By: #### L 501.9985, L501.9520, L506.0400 ####[facility] [address] [place], [address] Urinalysis, Completeon 01-07 RBC 0-5 SEEN Normal 0-5 [facility] Comment on above: Order Comment: COLLE CTOR TO SPECIFY Performed By: #### L 400.0001 ####[facility] [address] [place], [address] BACTERIA 0 SEEN Normal None Seen [facility] Comment on above: Order Comment: COLLE CTOR TO SPECIFY Performed By: #### L 400.0001 ####[facility] [address] [place], [address] EPI,SQUAMOUS 0 SEEN Normal 5-10 [facility] Comment on above: Order Comment: LUCIA CTOR TO SPECIFY Performed By: #### L 400.0001 ####[facility] [address] [place], [address] Mucus Ql (Urine sed) 0 SEEN Normal [facility] Comment on above: Order Comment: COLLE CTOR TO SPECIFY Performed By: #### L 400.0001 ####[facility] [address] [place], [address] WBC 0 SEEN Normal 0-5 [facility] Comment on above: Order Comment: COLLE CTOR TO SPECIFY Performed By: #### L 400.0001 ####[facility] [address] [facility] [address] Urine Drug Screen (VISTA)on 01-08-2024 AMPHETAMINES Negative Normal <1000 ng/mL [facility] Comment on above: Performed By: #### L 505.5000 ####[facility] [address] [place] [id number] BARBITIURATES Negative Normal < 200 ng/mL [facility] Comment on above: Performed By: #### L 505.5000 ####[facility] [address] [place], [address] BENZODIAZIPINE Negative Normal < 200 ng/mL [facility] Comment on above: Performed By: #### L 505.5000 ####[facility] [address] [place] [address] COCAINE Negative Normal < 300 ng/mL [facility] Comment on above: Performed By: #### L 505.5000 ####[facility] [address] [place], [address] ECSTACY Negative Normal < 500 ng/mL [facility] Comment on above: Performed By: #### L 505.5000 ####[facility] [address] [place] [id number] METHADONE Negative Normal < 300 ng/mL [facility] Comment on above: Performed By: #### L 505.5000 ####[facility] [address] [place], [address] OPIATES Negative Normal < 300 ng/mL [facility] Comment on above: Performed By: #### L 505.5000 ####[facility] [address] [place], [address] PCP Negative Normal < 25 ng/mL [facility] Comment on above: Performed By: #### L 505.5000 ####[facility] [address] [place], [address] THC Negative Normal < 50 ng/mL [facility] Comment on above: Performed By: #### L 505.5000 ####[facility] [address] [place], [address] VISTA UDS PH 6 Normal [facility] Comment on above: Performed By: #### L 505.5000 ####[facility] [address] [place], [address] Vital Signs Date Time Vital Sign Value Performing Clinician Facility 06-03-2024 13:44-0500 Body mass index (BMI) [Ratio] 30.65 kg/m2 Teressa Brennan Work Phone: [facility] 06-03-2024 13:44-0500 Body temperature 97.11 [degF] Teressa Brennan Work Phone: [facility] 06-03-2024 13:44-0500 Body weight 68.04 kg Teressa Brennan Work Phone: [facility] 06-03-2024 13:44-0500 Diastolic blood pressure 77 mm[Hg] Teressa Brennan Work Phone: [facility] 06-03-2024 13:44-0500 Heart rate 78 /min Teressa Brennan Work Phone: [facility] 06-03-2024 13:44-0500 SaO2% (BldA) [Mass fraction] 98 % Teressa Brennan Work Phone: [facility] 06-03-2024 13:44-0500 Systolic blood pressure 155 mm[Hg] Teressa Brennan Work Phone: [facility] 04-29-2024 10:11-0400 Body temperature 98.2 [degF] Treatment Wstr Work Phone: [facility] 04-29-2024 10:11-0400 Diastolic blood pressure 75 mm[Hg] Treatment Wstr Work Phone: [facility] 04-29-2024 10:11-0400 Heart rate 78 /min Treatment Wstr Work Phone: [facility] 04-29-2024 10:11-0400 Respiratory rate 16 /min Treatment Wstr Work Phone: [facility] 04-29-2024 10:11-0400 SaO2% (BldA) [Mass fraction] 98 % Treatment Wstr Work Phone: [facility] 04-29-2024 10:11-0400 Systolic blood pressure 144 mm[Hg] Treatment Wstr Work Phone: [facility] 04-23-2024 12:42-0400 Body temperature 98.2 [degF] Treatment Wstr Work Phone: [facility] 04-23-2024 12:42-0400 Diastolic blood pressure 64 mm[Hg] Treatment Wstr Work Phone: [facility] 04-23-2024 12:42-0400 Heart rate 85 /min Treatment Wstr Work Phone: [facility] 04-23-2024 12:42-0400 SaO2% (BldA) [Mass fraction] 98 % Treatment Wstr Work Phone: [facility] 04-23-2024 12:42-0400 Systolic blood pressure 126 mm[Hg] Treatment Wstr Work Phone: [facility] 04-21-2024 10:00-0400 Body temperature 98.1 [degF] Treatment Wstr Work Phone: [facility] 04-21-2024 10:00-0400 Diastolic blood pressure 63 mm[Hg] Treatment Wstr Work Phone: [facility] 04-21-2024 10:00-0400 Heart rate 70 /min Treatment Wstr Work Phone: [facility] 04-21-2024 10:00-0400 Respiratory rate 14 /min Treatment Wstr Work Phone: [facility] 04-21-2024 10:00-0400 SaO2% (BldA) [Mass fraction] 98 % Treatment Wstr Work Phone: [facility] 04-21-2024 10:00-0400 Systolic blood pressure 127 mm[Hg] Treatment Wstr Work Phone: [facility] 04-17-2024 11:11-0400 Diastolic blood pressure 72 mm[Hg] Treatment Wstr Work Phone: [facility] 04-17-2024 11:11-0400 Heart rate 90 /min Treatment Wstr Work Phone: [facility] 04-17-2024 11:11-0400 Systolic blood pressure 147 mm[Hg] Treatment Wstr Work Phone: [facility] 04-17-2024 10:00-0400 Body temperature 97.39 [degF] Treatment Wstr Work Phone: [facility] 04-08-2024 14:11-0400 Body height 149 cm Adan Mayi DO Work Phone: [facility] 04-08-2024 14:11-0400 Body mass index (BMI) [Ratio] 29.93 kg/m2 Adan Olverai DO Work Phone: [facility] 04-08-2024 14:11-0400 Body temperature 97.5 [degF] Adan Scott DO Work Phone: [facility] 04-08-2024 14:11-0400 Body weight 66.45 kg Adan Scott DO Work Phone: [facility] 04-08-2024 14:11-0400 Diastolic blood pressure 69 mm[Hg] Adan Scott DO Work Phone: [facility] 04-08-2024 14:11-0400 Heart rate 85 /min Adan Scott DO Work Phone: [facility] 04-08-2024 [id number] SaO2% (BldA) [Mass fraction] 99 % Adan Scott DO Work Phone: [facility] 04-08-2024 [id number] Systolic blood pressure 129 mm[Hg] Adan Olverai DO Work Phone: [facility] 02-05-2024 15:28-0400 Body height 154.9 cm Annie Kearney MD Work Phone: [facility] 02-05-2024 15:28-0400 Body temperature 98.8 [degF] Annie Kearney MD Work Phone: [facility] 02-05-2024 15:28-0400 Diastolic blood pressure 76 mm[Hg] Annie Kearney MD Work Phone: [facility] 02-05-2024 15:28-0400 Heart rate 68 /min Annie Kearney MD Work Phone: [facility] 02-05-2024 15:28-0400 Systolic blood pressure 161 mm[Hg] Annie Kearney MD Work Phone: [facility] 01-30-2024 11:57-0400 Body temperature 97.7 [degF] Natividad Ramirez MD Work Phone: [facility] 01-30-2024 11:57-0400 Diastolic blood pressure 65 mm[Hg] Nativiadd Ramirez MD Work Phone: [facility] 01-30-2024 11:57-0400 Heart rate 73 /min Natividad Ramirez MD Work Phone: [facility] 01-30-2024 11:57-0400 Respiratory rate 18 /min Natividad Ramirez MD Work Phone: [facility] 01-30-2024 11:57-0400 SaO2% (BldA) [Mass fraction] 98 % Natividad Ramirez MD Work Phone: [facility] 01-30-2024 11:57-0400 Systolic blood pressure 147 mm[Hg] Natividad Ramirez MD Work Phone: [facility] 01-27-2024 00:00-0400 Body mass index (BMI) [Ratio] 29.37 kg/m2 Natividad Ramirez MD Work Phone: [facility] 01-27-2024 00:00-0400 Body weight 70.5 kg Natividad Ramirez MD Work Phone: [facility] 01-11-2024 11:49-0400 Body height 154.9 cm Natividad Ramirez MD Work Phone: [facility] Encounters Encounter Date Encounter Type Care Provider Facility Start: 08-19-2024 End: 08-19-[address] [facility] Start: 08-19-2024 End: 08-19-2024 ambulatory Julieta Fast Facility:[facility] Start: 06-20-2024 End: 07-06-2024 Evaluation and management of inpatient Julieta Fast Facility:[facility] Start: 06-17-2024 ambulatory Kasia Arnold Facility:[facility] Start: 06-17-2024 End: 06-20-2024 Evaluation and management of inpatient Kasia Arnold Facility:[facility] Start: 06-03-2024 End: 06-03-2024 Patient encounter procedure [...] 04-29-2024 Patient encounter procedure Treatment Rm 15 [facility] Wstr Work Phone: Hematology/Oncology Start: 04-28-2024 End: 04-28-2024 Telephone encounter Samantha CORRAL Hematology/Oncology Comment on above: SOCIAL WORK SERVICES (1ST TIME TREATMENT) Start: 04-25-2024 End: 04-25-2024 ambulatory ADAN SCOTT Hematology/Oncology Comment on above: Iron deficiency anem ia secondary to inadequate dietary iron intake (Primary Dx); Iron malabsorption Start: 04-25-2024 End: 04-25-2024 Patient encounter procedure Treatment Rm 14 [facility] [employer] Work Phone: Hematology/Oncology Start: 04-23-2024 End: 04-23-2024 ambulatory ADAN SCOTT Hematology/Oncology Comment on above: Iron malabsorption ( Primary Dx); Iron deficiency anemia secondary to inadequate dietary iron intake Start: 04-23-2024 End: 04-23-2024 Patient encounter procedure Treatment Rm 15 [facility] [employer] Work Phone: Hematology/Oncology Start: 04-21-2024 End: 04-21-2024 ambulatory ADAN SCOTT Hematology/Oncology Comment on above: Iron malabsorption ( Primary Dx); Iron deficiency anemia secondary to inadequate dietary iron intake Start: 04-21-2024 End: 04-21-2024 Patient encounter procedure Treatment Rm 14 [facility] [employer] Work Phone: Hematology/Oncology Start: 04-17-2024 End: 04-17-2024 [...] Phone: Hematology/Oncology Start: 02-07-2024 ambulatory Julieta Fast Facility:[facility] Start: 02-05-2024 ambulatory ANNIE KEARNEY Facility:[facility] Start: 02-05-2024 End: 02-05-2024 Patient encounter procedure Annie Kearney MD Work Phone: [facility] Comment on above: SBO (small bowel obs truction) (Primary Dx) Start: 01-31-2024 ambulatory Julieta Fast Facility:[facility] Start: 01-11-2024 End: 01-30-2024 Evaluation and management of inpatient Natividad Ramirez MD Work Phone: [facility] Start: 01-08-2024 ambulatory Julieta Fast Facility:[facility] Start: 01-08-2024 ambulatory Bc Zeng Fac ility:[facility] Start: 01-08-2024 End: 01-11-2024 Evaluation and management of inpatient Bc Zeng Facility:[facility] Procedures Date Procedure Procedure Detail Performing Clinician [...] Work Phone: Start: 01-22-2024 Antibody screen Natividad gacria MD Work Phone: Start: 01-22-2024 ABORH TYPE RECONFIRMATION Marlen Richards DO Work Phone: Start: 01-22-2024 Antibody screen KRISTY KEARNEY Comment on above: Performed By: #### M GIOVANNI, CHM7, HFP #### [facility] ([facility]) [address] [place] [address] Start: 01-22-2024 Bilirubin direct Titus Acevedo MD [...] screen quantita tive vancomycin Rico J Brigitte [facility] Start: 01-18-2024 Glucose measurement, blood Martin Kapadia [...] Drug screen quantita tive vancomycin Ricoradha Boyceuse [facility] Start: 01-16-2024 Glucose measurement, blood Martin Kapadia [...] Start: 01-14-2024 Glucose measurement, blood Sunitha M Ojry DO Work Phone: Start: 01-14-2024 Glucose measurement, blood Sunitha M Jory DO Work Phone: Start: 01-14-2024 Glucose measurement, blood Sunitha M Jory DO Work Phone: Start: 01-14-2024 Basic metabolic pane l calcium total Sunitha M Ward DO Work Phone: Start: 01-13-2024 Drug screen quantita tive vancomycin Roddy P Counts [facility] Work Phone: Start: 01-13-2024 Glucose measurement, blood Sunitha M Ward DO Work Phone: Start: 01-13-2024 Glucose measurement, blood Sunitha M Ward DO Work Phone: Start: 01-13-2024 Glucose measurement, blood Sunitha M Ward DO Work Phone: Start: 01-13-2024 Glucose measurement, blood Sunitha M Ward DO Work Phone: Start: 01-13-2024 Basic metabolic pane l calcium total Sunitha M Ward DO Work Phone: Start: 01-12-2024 Glucose measurement, blood Sunitha M Ward DO Work Phone: Start: 01-12-2024 Glucose measurement, blood Sunitha M Ward DO Work Phone: Start: 01-12-2024 Glucose measurement, blood Sunitha M Ward DO Work Phone: Start: 01-12-2024 Glucose measurement, blood Sunitha M Ward DO Work Phone: Start: 01-12-2024 Assay of magnesium Ko Augustine MD Work Phone: Start: 01-12-2024 Hepatic function panel Alisha Armendariz MD, MPH Work Phone: Start: 01-12-2024 IP CONSULT TO SPEECH THERAPY Ron Hand MD Work Phone: Start: 01-12-2024 Glucose measurement, blood Sunitha M Ward DO Work Phone: Start: 01-11-2024 Glucose measurement, [...] Start: 04-08-2027 Diabetes Screening Diabetes Screenin g [facility] Start: 12-03-2024 End: 12-03-2024 ambulatory [place] [facility] Comment on above: CBC/IRON STUDIES* 6 MO OV/LABS EARLY* Start: 09-03-2024 End: 09-03-2024 ambulatory 09/03/2024 11:30 AM EST Results Only Arjun [place] [facility] [address] [place] [address] CBC/IRON STUDIES* [facility] Comment on above: CBC/IRON STUDIES* Start: 06-03-2024 End: 06-03-2024 [facility] Comment on above: labs ov Start: 04-29-2024 End: 04-29-2024 ambulatory 04/29/2024 10:30 AM EDT Visit (SP) Office Hematology/Oncology [address] [place] [address] 2ND Hematology/Oncology Comment on above: 2ND Start: 04-25-2024 End: 04-25-2024 ambulatory 04/25/2024 3:30 PM EDT Visit (SP) Office Hematology/Oncology [address] [place] [address] 2ND Hematology/Oncology Comment on above: 2ND Start: 04-23-2024 End: 04-23-2024 ambulatory 04/23/2024 1:00 PM EDT Visit (SP) Office Hematology/Oncology [address] [place] [address] 2ND Hematology/Oncology Comment on above: 2ND Start: 04-21-2024 End: 04-21-2024 ambulatory 04/21/2024 10:00 AM EDT Visit (SP) Office Hematology/Oncology [address] [place] [address] 2ND Hematology/Oncology Comment on above: 2ND Start: 04-17-2024 End: 04-17-2024 ambulatory 04/17/2024 11:00 AM EDT Visit (SP) Office Hematology/Oncology [address] [place] [address] 2nd Hematology/Oncology Comment on above: 2nd Start: 04-08-2024 End: 07-08-2024 Ferritin [Mass/volume] in Serum or Plasma [facility] Comment on above: Expected: 04/08/2024 , Expires: 07/08/2024 Start: 04-08-2024 End: 07-08-2024 Iron and Iron binding capacity panel - Serum or Plasma [facility] Work Phone: Comment on above: Expected: 04/08/2024 , Expires: 07/08/2024 Start: 03-16-2024 Covid-19 Vaccine () Covid-19 Vaccine () [facility] Start: 03-16-2024 Influenza vaccination O [facility] Start: 03-13-2024 Tetanus vaccination [facility] Start: 03-13-2024 Urine microalbumin profile DTaP,Tdap,Td Vaccine (2 - Td or Tdap) [facility] Start: 02-05-2024 End: 02-05-[address] [facility] Start: 11-29-2023 Screening for malign ant neoplasm of breast [facility] Start: 07-16-2023 Advance Directive Discussion Advance Directive Discussion [facility] Start: 03-16-2023 COVID-19 VACCINE ( season) COVID-19 VACCINE () [facility] Start: 03-16-2023 [facility] Start: 2022 RSV Vaccine (1 - 1-d ose 75+ series) RSV Vaccine (1 - 1-dose 75+ series) [facility] Start: 10-16-2015 Pneumococcal Vaccine : 65+ (2 of 2 - PPSV23 or PCV20) Pneumococcal Vaccine: 65+ (2 of 2 - PPSV23 or PCV20) [facility] Start: 12-10-2014 Pneumococcal vaccination [facility] Start: 08-28-2014 Shingrix Vaccine (2 of 3) Shingrix Vaccine (2 of 3) [facility] Start: 08-28-2014 Zoster vaccine hzv l shaq for subcutaneous use ZOSTER (SHINGLES) VACCINE (2 of 3) [facility] Start: 08-28-2014 [facility] Start: 2012 Screening for osteoporosis Bone Density Screening [facility] Start: 1992 Screening for malign ant neoplasm of colon [facility] Start: 1968 Screening for malign ant neoplasm of cervix [facility] Start: 1965 Anxiety Screening Anxiety Screening [facility] Start: 1965 Depression Screening Depression Scre ening [facility] Start: 1965 Hepatitis C screening Hepatitis C Sc reening [facility] Start: 1947 Hepatitis C screening O [facility] Start: 1945 Screening for osteoporosis [facility] SURG PATH REQUEST [facility] Immunizations Immunization Date Immunization Notes Care Provider Fa cility 03-23-2022 influenza virus vaccine, unspecified formulation Annie Kearney MD Work Phone: [facility] 07-03-2014 zoster vaccine, unspecified formulation Annie Kearney MD Work Phone: [facility] Payers Date Payer Category Payer Self-pay 2019 Unknown [id number] 2019 Unknown [id number] 2012 Medicare [id number] 2012 Medicare [id number] 1945 Unknown [id number] 1945 Unknown [id number] Unknown [id number] Unknown [id number] Unknown [id number] Unknown [id number] Unknown [id number] Unknown [id number] Unknown [id number] Unknown [id number] Unknown [id number] Unknown [id number] Unknown [id number] Unknown [id number] Unknown [id number] Unknown PAOLA Burdick *DO NOT USE* [id number] Social History Date Type Detail Facility Tobacco smoking stat us AKIS Tobacco smoking consumption unknown [facility] Start: 1945 Sex assigned at [facility] Start: 02-05-2024 End: 06-20-2024 Tobacco smoking status AKIS Never smoked tobacco [facility] Start: 02-05-2024 End: 04-08-2024 Tobacco use and exposure Smokeless tobacco non-user [facility] Start: 02-05-2024 Alcoholic beverage intake Ex-drinker (finding) [facility] Start: 02-05-2024 End: 06-03-2024 History of Social function [facility] Start: 02-05-2024 End: 06-03-2024 Tobacco use panel [facility] Start: 04-08-2024 End: 06-03-2024 Alcoholic beverage intake Lifetime non-drinker (finding) [facility] National Score (1-100), lower number is lower risk 64 [facility] Start: 1945 Sex Assigned At Female [facility] Clinical Notes 01-11-2024 to 07-03-2024 Teressa Brennan - 06/03/2024 1:30 PM ESTTelephone Encounter - Samantha Mcdonald LISW - 04/28/2024 11:20 AM EDTTelephone Encounter - Samantha Mcdonald LISW - 04/28/2024 11:20 AM EDTAttachments Note Date & Type Note Facility 07-03-2024 Note [facility] 06-20-2024 Note [facility] 06-20-2024 Note [facility] 06-03-2024 History of Present illness Narrative [...] a month ago. recalls getting it at [facility]. Was living in [place]. Moved back to [place] early summer. Was admitted to [facility] for meningitis 12/2023. Transferred to [facility]. Course [...] in 6 months with labs Teressa Brennan APRN.WOOD BORING MACHINE OPERATOR I spent a total of 30 minutes on the date of the service which included preparing to see the patient, [id number] patient care, completing clinical documentation, and counseling [...] of this patient. documented in this encounter [facility] 06-03-2024 Note HNO ID: [id number] Author: TERESSA BRENNAN, ? Service: ? Author [...] a month ago. recalls getting it at [facility]. Was living in [place]. Moved back to [place] early summer. Was admitted to [facility] for meningitis 12/2023. Transferred to [facility]. Course [...] in 6 months with labs Teressa Brennan APRN.WOOD BORING MACHINE OPERATOR I spent a total of 30 minutes on the date of the service which included preparing to see the patient, [id number] patient care, completing clinical documentation, and counseling and educating the patient/family/caregiver. Portions of this note including HPI, ROS, impression/plan may have been copied forward as to provide important historical information essential in contributing to medical decision making. Documentation has been reviewed and edited as necessary to support clinical decision making for today's visit and to reflect my own independ (more content not included)... [facility] 04-28-2024 Telephone encounter Note SOCIAL WORK FOLLOW UP NOTE: CANCER CENTER Pt noted on [facility] 1st time treatment report. Pt has a non-oncology regimen. No social work follow up indicated. SHAYNA Carrillo-S [facility] 04-28-2024 Miscellaneous Notes SOCIAL WORK FOLLOW UP NOTE: CANCER CENTER Pt noted on [facility] 1st time treatment report. Pt has a non-oncology regimen. No social work follow up indicated. SHAYNA Carrillo-S documented in this encounter [facility] 04-15-2024 Telephone encounter Note I reviewed the patient on the 1st-time treatment report. The patient does not have a cancer diagnosis or a chemo/radiation regimen. No further Financial Navigator intervention is needed at this time. [facility] 04-15-2024 Miscellaneous Notes I reviewed the patient on the 1st-time treatment report. The patient does not have a cancer diagnosis or a chemo/radiation regimen. No further Financial Navigator intervention is needed at this time. documented in this encounter [facility] 04-09-2024 Telephone encounter Note Spouse returned call. Scheduled first 2 infusions. Spouse states will have to schedule more appointments as they go. Notes added to appointment notes for future appts. [facility] Work Phone: 04-09-2024 Miscellaneous Notes Spouse returned [...] Adan Scott DO documented in this encounter [facility] 04-09-2024 Telephone encounter Note 1st attempt lvm for patient to return the call. Belen Nix [facility] 04-09-2024 Telephone encounter Note Patient's aware of all information. This note and lab results faxed to Dr. Orlando. PSS- please contact patient/ to schedule as directed below. Carleen Bales LPN [facility] 04-09-2024 Telephone encounter Note Can let her [...] to Dr. Orlando's office. Adan Scott DO [facility] 04-08-2024 Note HNO ID: [id number] Author: ADAN SCOTT DO Service: ? Author [...] a month ago. recalls getting it at [facility]. Was living in [place]. Moved back to [place] early summer. Was admitted to [facility] for meningitis 12/2023. Transferred to [facility]. Course [...] which included preparing to see the patient, [id number] patient care, completing clinical documentation, obtaining and/or reviewing separately obtained history, performing a medically appropriate examination, counseling and educating the patient/family/caregiver, ordering medications, tests, or procedures, communicating with other HCPs (not separately reported), and communicating results to the patient/family/caregiver. Adan Scott DO [facility] 04-08-2024 History of Present illness Narrative [...] a month ago. recalls getting it at [facility]. Was living in [place]. Moved back to [place] early summer. Was admitted to [facility] for meningitis 12/2023. Transferred to [facility]. Course [...] which included preparing to see the patient, [id number] patient care, completing clinical documentation, obtaining and/or reviewing separately obtained history, performing a medically appropriate examination, counseling and educating the patient/family/caregiver, ordering medications, tests, or procedures, communicating with other HCPs (not separately reported), and communicating results to the patient/family/caregiver. Adan Scott DO documented in this encounter [facility] 02-05-2024 History of Present illness Narrative Subjective: [...] Follow up: PRN documented in this encounter [facility] 01-30-2024 Hospital course Narrative Hospital Medicine Discharge [...] during her recent hospital stay at [facility]. As you may know, Ms. Kearney is a 78y/o F w/ h/o chronic cognitive impairment, DM2, hyperthyroidism, an dHTN who was transferred to [facility] on 01/11/24 from [place] for evaluation of encephalopathy and fevers concerning [...] patient's records can be obtained via [facility] at [email or web address] It has been my pleasure participating [...] Center 02/05/2024 2:15 PM Annie Kearney MD [facility] Jacob Chester MD [address] [place] [address] 6th Floor [place] [id number] Follow up Plesae make an appointment 2-3 weeks following initial surgery date [facility] [address] [facility] [address] Medication List START taking these medications [...] MG TABS documented in this encounter [facility] 01-30-2024 History of Present illness Narrative Social Work Final Discharge Plan and Transportation Final Discharge Planning Discharge Disposition: [facility] Facility Services at Discharge: Physical Therapy, Occupational Therapy, [facility] Community Agency Name(s) For Handoff: [facility] Phone For Handoff: [phone] Fax For Handoff: [phone] Additional Community Agency Name(s): no Selected Continued Care - Admitted Since 01/11/2024 Destination Coordination complete. Service Provider Selected Services Address Phone Fax Patient Preferred [facility] [address] [facility] [address] [phone] -- Plan Plan: Discharge to long term facility Patient/Family In Agreement With Plan: yes Transportation Transport Request Mode of Transfer: [facility] Name of Discharge Transport Company: [employer] Discharge Transport ETA: 1400 on 01/29 Patient medically stable for discharge per physician/medical team. confirmed with [facility] that they are able to accept the patient this date. Insurance pre-certification is not required and a hospital exemption has been completed. SW arranged transport as indicated above, ETA is 1400 on 01/29. The patient has no specialized equipment needs for transportation. AVS/GAURI completed from a SW standpoint. SW updated the bedside RN, CCM, facility and patient/public utilities sales representative of the discharge plan and transport time. Patient/Minister Assistant remain in agreement with the discharge plan. Bedside RN to call report and fax AVS/GAURI. Ambulance form left at the community health counselor desk with a request for a printed transfer report. Discharge Instruction for Bedside RN: 1. Confirm the Ambulatory Order is in the GAURI. 2. Print the GAURI and AVS. 3. Print the Discharge Summary for facilities (if available). 4. Fax GAURI, AVS and Discharge Summary (when applicable) to agency or facility. 5. Call the agency or facility for report. OPAL Escobar, MARILU Automotive Parts Specialist, Transplant 01/29/24 1537 Outlier Review Reviewing for: Outlier Meeting Medical Necessity: Yes Medical Necessity Summary: RICK Barriers: Standard Treatment/Therapy;Medical Complications Barrier(s) Comments: Sitter free for almost 24 hours, should be able to discharge to SNF in a day Intervention: No intervention needed Escalated to: None Required OPAL Escobar LSW Automotive Parts Specialist, Transplant Hospital Medicine Daily Progress Note SUBJECTIVE: [...] in a hospital today) Labs Reviewed in [facility]: Lab Results Component Value Date SODIUM 138 01/29/2024 POTASSIUM 3.8 01/29/2024 CREATSERUM 1.30 (H) 01/29/2024 BMI: 27.6 IMPRESSION/PLAN: Kerrie Kearney is a 78 y.o. female with a history of chronic cognitive impairment, hyperthyroidism, DM2, and HTN who presented on 01/11/2024 as a transfer from [place] for further evaluation of encephalopathy and fevers [...] status: Full Code Pt's , Jaime @ [phone], updated via phone 01/29/24 Dispo: Continue inpatient management. Eventually discharge to SNF (she will not need pre-cert) Isac Chambers MD Acute Occupational Therapy Treatment Prior Gross Functional Mobility: used device Current AM-PAC score(s): CURRENT AM-PAC Activity Raw Score: 16 Based on the above AM-PAC score(s), and OT clinical judgment, discharge destination recommendation is: [facility] Facility Barriers to discharge home: Patient needs [...] to directions, Difficulty dividing attention Memory: Decreased alf memory, Decreased short term memory Problem Solving: [...] noted Mobility Assessment/Intervention: Supine to Sit Mobility [place] Level: Supine->Sit: stand-by assist Bed Features/Set-up: Supine->Sit: Head of bed elevated, Use of bed rail Skilled Rationale: Cues for increased safety, Technique of activity, Verbal cues, Sequencing, Positioning, Hand placement Skilled Intervention/Details: Supine->Sit: Cues for sequencing/safety/use of log-roll technique; Mildly increased time/effort for performance due to pain. Transfer Assessment/Intervention: Sit to Stand Transfer [place] Level: Sit->Stand: contact guard assist (x 1 trial from EOB.) Assistive Device: Sit->Stand: gait belt, 2 wheeled walker Skilled Rationale: Cues for increased safety, Technique of activity, Tactile cues, Verbal cues, Hand placement Skilled Intervention/Details: Sit->Stand: Cues for safety/hand placement on walker. Stand to Sit Transfer [place] Level: Stand->Sit: contact guard assist Assistive Device: Stand->Sit: gait belt, 2 wheeled walker Skilled Rationale: Cues for increased safety, Technique of activity, Tactile cues, Verbal cues, Hand placement Toilet Transfer [place] Level: Toilet: minimum assist (75% patient effort) [...] (low elevation surface). Functional Mobility: Functional Mobility [place] Level: Functional Mobility/Gait: (CGA-minimal assistance) Assistive Device: [...] represents the current Occupational Therapy Discharge Summary. [facility] Medicine Daily Progress Note SUBJECTIVE: Pt doing [...] presented on 01/11/2024 as a transfer from [place] for further evaluation of encephalopathy and fevers [...] status: Full Code Pt's , Jaime @ [phone], updated at bedside 01/27/24 Dispo: Continue inpatient [...] questions or concerns. Tena Sherman MD MPH computer repairer Division of Trauma, Critical Care, Burn Hospital [...] focal, conversationally confused, A&Ox1 Labs Reviewed in [facility]: Lab Results Component Value Date SODIUM 138 01/27/2024 POTASSIUM 3.9 01/27/2024 CREATSERUM 1.03 01/27/2024 BMI: 27.6 IMPRESSION/PLAN: Kerrie Kearney is a 78 y.o. female with a history of chronic cognitive impairment, hyperthyroidism, DM2, and HTN who presented on 01/11/2024 as a transfer from [place] for further evaluation of encephalopathy and fevers [...] status: Full Code Pt's , Jaime @ [phone], updated at bedside 01/27/24 Dispo: Continue inpatient management. Eventually discharge to SNF (she will not need pre-cert) Isac Chambers MD [facility] Medicine Daily Progress Note SUBJECTIVE: Pt seen [...] focal, conversationally confused, A&Ox1 Labs Reviewed in [facility]: Lab Results Component Value Date WBC 6.83 01/26/2024 HGB 9.3 (L) 01/26/2024 PLATELET 297 01/26/2024 Images/Report Reviewed XR ABDOMEN 1 VIEW Final Result FINDINGS/IMPRESSION: Persistent ileus BMI: 27.6 IMPRESSION/PLAN: Kerrie Kearney is a 78 y.o. female with a history of chronic cognitive impairment, hyperthyroidism, DM2, and HTN who presented on 01/11/2024 as a transfer from [place] for further evaluation of encephalopathy and fevers [...] status: Full Code Pt's , Jaime @ [phone], updated at bedside 01/26/24 Dispo: Continue inpatient [...] trends and plan of care goals. 5. Cloth Picker to follow. Samantha Robin NDTR Pager#[phone] ___ Pt unavailable and information obtained via [...] 06:19 GI-Last Bowel Movement: 01/25/24 ELMER LujanR Pager:[phone] [facility] Medicine Daily Progress Note SUBJECTIVE: Pt reports [...] presented on 01/11/2024 as a transfer from [place] for further evaluation of encephalopathy and fevers [...] status: Full Code Pt's , Jaime @ [phone], on 01/24/24 w/o answer Dispo: Continue inpatient management. Eventually discharge to SNF (she will not need pre-cert) Isac Chambers MD Acute Physical Therapy Treatment Prior Gross Functional Mobility: used device Current AM-PAC score(s): CURRENT AM-PAC Mobility Raw Score: 16 Based on the above AM-PAC score(s) and PT clinical judgment, patient is a good candidate for discharge to [facility] Facility Barriers to discharge home: Patient needs [...] sway. Mobility Assessment/Intervention: Supine to Sit Mobility [place] Level: Supine->Sit: minimum assist (75% patient effort) Bed Features/Set-up: Supine->Sit: Head of bed elevated, Use of bed rail Skilled Rationale: Verbal cues, Hand placement, Sequencing, Technique of activity Skilled Intervention/Details: Supine->Sit: Educated for log roll with cues for sequencing Transfer Assessment/Intervention: Sit to Stand Transfer [place] Level: Sit->Stand: minimum assist (75% patient effort) Assistive Device: Sit->Stand: gait belt, 2 wheeled walker Skilled Rationale: Verbal cues, Sequencing, Hand placement, Facilitate anterior shift Skilled Intervention/Details: Sit->Stand: Educated for pushing from seat with BUE x1 from EOB, x3 from recliner. Stand to Sit Transfer [place] Level: Stand->Sit: minimum assist (75% patient effort) Assistive Device: Stand->Sit: gait belt, armed chair Skilled Rationale: Verbal cues, Hand placement, Controlled descent for sitting Skilled Intervention/Details: Stand->Sit: Cues for reaching ack for seat with fair compliance this date. Bed-Chair Transfer [place] Level: Bed<->Chair: minimum assist (75% patient effort) Assistive Device: Bed<->Chair: gait belt, 2 wheeled walker Skilled Rationale: Verbal cues, Sequencing Gait/Functional Mobility Assessment/Intervention: Gait Assessment [place] Level: Gait: minimum assist (75% patient effort) [...] improve stability and independence. Stairs Assessment/Intervention: CURRENT [facility] Basic Mobility Inpatient Short Form Turning over [...] with a railin - Total Assistance CURRENT [facility] Mobility Raw Score: 16 CURRENT [facility] Mobility Functional Limitation: 54.16% Impaired in Basic [...] Camacho MD Acute Care Surgery Pager #: [phone] 01/25/24 Associated attestation - Jacob Chester MD [...] is a good candidate for discharge to [facility] Facility Barriers to discharge home: Patient needs [...] Assessment/Intervention: Transfer Assessment/Intervention: Sit to Stand Transfer [place] Level: Sit->Stand: moderate assist (50% patient effort) Assistive Device: Sit->Stand: gait belt, 2 wheeled walker Skilled Rationale: Verbal cues, Hand placement, Sequencing, Full extension to upright positioning/posture, Facilitate anterior shift Skilled Intervention/Details: Sit->Stand: x7 from recliner with frequent cues for hand placement and sequencing. patient requires cues for keeping feet back during transfers to facilitate improved BLE engagement. Stand to Sit Transfer [place] Level: Stand->Sit: minimum assist (75% patient effort) Assistive Device: Stand->Sit: gait belt, armed chair Skilled Rationale: Verbal cues, Hand placement, Controlled descent for sitting Skilled Intervention/Details: Stand->Sit: max cues for reaching back with poor compliance throughout. Educated for backing up to seat to improve safety and improve controlled descent. Gait/Functional Mobility Assessment/Intervention: Stairs Assessment/Intervention: CURRENT [facility] Basic Mobility Inpatient Short Form Turning over [...] with a railin - Total Assistance CURRENT [facility] Mobility Raw Score: 12 CURRENT [facility] Mobility Functional Limitation: 68.66% Impaired in Basic [...] represents the current Physical Therapy Discharge Summary. [facility] Medicine Daily Progress Note SUBJECTIVE: Pt reports [...] presented on 01/11/2024 as a transfer from [place] for further evaluation of encephalopathy and fevers [...] status: Full Code Pt's , Jaime @ [phone], on 01/24/24 w/o answer Dispo: Continue inpatient management. Eventually discharge to SNF (she will not need pre-cert) Isac Chambers MD Acute Occupational Therapy Treatment Prior Gross Functional Mobility: used device Current AM-PAC score(s): CURRENT AM-PAC Activity Raw Score: 14 Based on the above AM-PAC score(s), and OT clinical judgment, discharge destination recommendation is: [facility] Facility Barriers to discharge home: Patient needs [...] redirect Memory: Decreased short term memory, Decreased bracer memory, Decreased recall of recent events, Decreased [...] Edema: Mobility Assessment/Intervention: Supine to Sit Mobility [place] Level: Supine->Sit: moderate assist (50% patient effort) Bed Features/Set-up: Supine->Sit: Head of bed elevated, Use of bed rail Skilled Rationale: Positioning, Hand placement, Verbal cues, Technique of activity, Full extension to upright positioning/posture Skilled Intervention/Details: Supine->Sit: Cues for logroll, assist w/ trunk to upright Sit to Supine Mobility [place] Level: Sit->Supine: not tested Transfer Assessment/Intervention: Sit to Stand Transfer [place] Level: Sit->Stand: moderate assist (50% patient effort) Assistive Device: Sit->Stand: gait belt, 2 wheeled walker Skilled Rationale: Positioning, Hand placement, Verbal cues, Full extension to upright positioning/posture Skilled Intervention/Details: Sit->Stand: x1 from EOB, x1 from recliner - cueing each time for hand placement and anterior weightshifting Stand to Sit Transfer [place] Level: Stand->Sit: minimum assist (75% patient effort) Assistive Device: Stand->Sit: gait belt, 2 wheeled walker, armed chair Skilled Rationale: Positioning, Hand placement, Verbal cues, Tactile cues, Controlled descent for sitting, Technique of activity, Cues for increased safety Skilled Intervention/Details: Stand->Sit: x2 to recliner, cueing for proximity, hand placement, and controlled descent Bed-Chair Transfer [place] Level: Bed<->Chair: minimum assist (75% patient effort) [...] positioning Functional Mobility: Outcome Score(s): \ CURRENT [facility] Daily Activity Inpatient Short Form Putting on/Taking Off Lower Body Clothin - Total Assistance Bathin - A Lot of Assistance Toiletin - Total Assistance Putting on/Taking Off Upper Body Clothin - A Little Assistance Groomin - A Little Assistance Eatin - No Assistance CURRENT [facility] Activity Raw Score: 14 CURRENT [facility] Activity Functional Limitation/Modifier: 59.67% Currently Impaired in [...] Camacho MD Acute Care Surgery Pager #: [phone] 01/24/24 Associated attestation - Jacob Chester MD [...] Critical Care and Burn Department of Surgery [facility] Medicine Daily Progress Note Physician: Martin Kapadia III, MD, Attending Physician, 6 service Today's Date: 01/23/2024 Patient: Kerrie Kearney, : 1945, Admitted: 01/11/2024, Length of stay: 12 days IMPRESSION/PLAN: Kerrie Kearney is a 78 y.o. female with a history of chronic cognitive impairment, hyperthyroidism, DMt2, and HTN who presented on 01/11/2024 as a transfer from [place] for further evaluation of encephalopathy and fevers [...] tablet 10 mg 10 mg Oral QHS Mratin Kapadia III, MD bisacodyl (DULCOLAX) suppository 10 [...] OT clinical judgment, discharge destination recommendation is: [facility] Facility *Pt may decline SNF placement. If [...] noted Mobility Assessment/Intervention: Supine to Sit Mobility [place] Level: Supine->Sit: moderate assist (50% patient effort) [...] pain. Transfer Assessment/Intervention: Sit to Stand Transfer [place] Level: Sit->Stand: moderate assist (50% patient effort) [...] due to pain. Stand to Sit Transfer [place] Level: Stand->Sit: minimum assist (75% patient effort) Assistive Device: Stand->Sit: gait belt, 2 wheeled walker Skilled Rationale: Cues for increased safety, Initiation and execution of task, Technique of activity, Controlled descent for sitting, Ischial assist, Arm in arm, Tactile cues, Verbal cues, Hand placement Bed-Chair Transfer [place] Level: Bed<->Chair: minimum assist (75% patient effort) [...] versus kyphotic/flexed posture. Functional Mobility: Functional Mobility [place] Level: Functional Mobility/Gait: minimum assist (75% patient [...] required for walker management. Outcome Score(s): CURRENT [facility] Daily Activity Inpatient Short Form Putting on/Taking Off Lower Body Clothin - Total Assistance Bathin - A Lot of Assistance Toiletin - Total Assistance Putting on/Taking Off Upper Body Clothin - A Little Assistance Groomin - A Little Assistance Eatin - No Assistance CURRENT [facility] Activity Raw Score: 14 CURRENT [facility] Activity Functional Limitation/Modifier: 59.67% Currently Impaired in [...] is a good candidate for discharge to [facility] Facility Barriers to discharge home: Patient needs [...] pain Mobility Assessment/Intervention: Supine to Sit Mobility [place] Level: Supine->Sit: moderate assist (50% patient effort) Physical Assist: Supine->Sit: 2 person assist Bed Features/Set-up: Supine->Sit: Head of bed elevated, Use of bed rail Skilled Intervention/Details: Supine->Sit: Logroll to L for abdominal with step by step sequencing for safety/ participation Transfer Assessment/Intervention: Sit to Stand Transfer [place] Level: Sit->Stand: moderate assist (50% patient effort) Physical Assist: Sit->Stand: 1 person + 1 person to manage equipment Assistive Device: Sit->Stand: gait belt, 2 wheeled walker Skilled Intervention/Details: Sit->Stand: EOB x1, recliner x2. Cues for hand, initiation, and assisted anterior wt shift with decreased upright Stand to Sit Transfer [place] Level: Stand->Sit: moderate assist (50% patient effort) Physical Assist: Stand->Sit: 1 person + 1 person to manage equipment Assistive Device: Stand->Sit: gait belt, 2 wheeled walker Skilled Rationale: Hand placement, Maintain precautions, Cues for increased safety Bed-Chair Transfer [place] Level: Bed<->Chair: minimum assist (75% patient effort) Physical Assist: Bed<->Chair: 1 person + 1 person to manage equipment Assistive Device: Bed<->Chair: gait belt, 2 wheeled walker Skilled Rationale: Cues for increased safety Skilled Intervention/Details: Bed<->Chair: EOB to chair R with steps fwd and chair brought to her Gait/Functional Mobility Assessment/Intervention: Gait Assessment [place] Level: Gait: (min to mod assist) Physical [...] 2/2 pain Stairs Assessment/Intervention: Outcome Score(s): CURRENT [facility] Basic Mobility Inpatient Short Form Turning over [...] with a railin - Total Assistance CURRENT [facility] Mobility Raw Score: 11 CURRENT [facility] Mobility Functional Limitation: 72.57% Impaired in Basic [...] chair Alarms on at end of session: (CEMENT DESPATCH OPERATOR present for care setup following tx) Needs [...] Whaley MD PGY-3 Department of Surgery [phone] [facility] Medicine Daily Progress Note Physician: Martin Kapadia III, MD, Attending Physician, GM6 service Today's Date: 01/22/2024 Patient: Kerrie Kearney, : 1945, Admitted: 01/11/2024, Length of stay: 11 days IMPRESSION/PLAN: Kerrie Kearney is a 78 y.o. female with a history of chronic cognitive impairment, hyperthyroidism, DMt2, and HTN who presented on 01/11/2024 as a transfer from [place] for further evaluation of encephalopathy and fevers [...] needed Escalated to: None Required OPAL Escobar, LARD RENDERER Automotive Parts Specialist, Transplant Hospital Medicine Daily Progress Note Physician: Martin Kapadia III, MD, Attending Physician, GM6 service Today's Date: 01/21/2024 Patient: Kerrie Kearney, : 1945, Admitted: 01/11/2024, Length of stay: 10 days IMPRESSION/PLAN: Kerrie Kearney is a 78 y.o. female with a history of chronic cognitive impairment, hyperthyroidism, DMt2, and HTN who presented on 01/11/2024 as a transfer from [place] for further evaluation of encephalopathy and fevers [...] appearing fluids. Planned to leave NG to [facility] but she ended up pulling out [...] Discharge Date: 01/22/2024 Referred Level of Care: long term facility Barriers: medical readiness and transportation Current Referrals and Status 1. [facility]...... accepted and reserved. KATIE contacted pt's spouse, Jaime. Spouse reported he toured [facility] and confirmed [facility] was choice. SW messaged SNF about pt completing antibiotics, but may still be a few days from discharge due to needing NG placed. AnyMARILU Acosta IRP Wire Stitcher Please note that I am float social insurance adviser and am not the primary social insurance adviser for this service and/or patient. Please contact primary social insurance adviser during the week for any additional needs. Contact info for weekend CM and SW staff (8:00am - 4:30pm): [facility]: CCM: [phone] / Automotive Parts Specialist: [phone] Munoz: [facility]: [phone] / Automotive Parts Specialist: [phone] Gregory: [facility] : [phone] / Automotive Parts Specialist: [phone] Nikolay/MICU/PCU Jose: [facility]: [phone] / Automotive Parts Specialist: [phone] [facility] Medicine Daily Progress Note Physician: Martin Kapadia III, MD, Attending Physician, [facility] service Today's Date: 01/20/2024 Patient: Kerrie Kearney, : 1945, Admitted: 01/11/2024, Length of stay: 9 days IMPRESSION/PLAN: Kerrie Kearney is a 78 y.o. female with a history of chronic cognitive impairment, hyperthyroidism, DMt2, and HTN who presented on 01/11/2024 as a transfer from [place] for further evaluation of encephalopathy and fevers [...] RICK -May fold in some Hydralazine to scrap picker the slack while Lisinopril is held [...] personally reviewed. Signed, Martin Kapadia III, MD [facility] Medicine Daily Progress Note Physician: Martin Kapadia III, MD, Attending Physician, 6 service Today's Date: 01/19/2024 Patient: Kerrie Kearney, : 1945, Admitted: 01/11/2024, Length of stay: 8 days IMPRESSION/PLAN: Kerrie Kearney is a 78 y.o. female with a history of chronic cognitive impairment, hyperthyroidism, DMt2, and HTN who presented on 01/11/2024 as a transfer from [place] for further evaluation of encephalopathy and fevers [...] RICK -May fold in some Hydralazine to scrap picker the slack while Lisinopril is held IRCK: Cr jumped to 1.6 on 7/4am - [...] IVPB 1,250 mg Intravenous Q48H Carleen Gould, [facility] DATA REVIEW: CBC: Chem: Na/K+/Phos/Mg/Ca: 133/4.0/--/--/9.4 (01/18 032) Bun/Creat/Cl/CO2/Glucose: 24/1.33/97/26/283 (01/18 321) Coags: All lab, imaging, and procedure results from the last 24 hours were personally reviewed. Signed, Martin Kapadia III, MD Placement Plan Expected Discharge Date: 01/21/2024 Referred Level of Care: skilled Barriers: medical readiness Current Referrals and Status 1. [facility] (RESERVED) KATIE met with patient's at bedside for follow up re:SNF selection. reported [facility] is a mile from their home and it would be convenient although he had not been in it. SW answered questions he had and encouraged him to tour. agreed to tour with his son tomorrow; son is arriving today from [place]. in agreement with reserving [facility] and will update KATIE if they change their mind. requested SW reach out to [facility] to see if patient would have a private room. SW messaged [facility]. also states he is willing to transport patient to [facility], since he did not want transportation to delay her discharge. SW agreed to follow up with the team to see if patient could go safely by car. SW agreed to update him accordingly. 1520 SW followed up with patient and patient's at bedside to let them know SW did not have any updates from [facility] at this time but that SW would keep them posted tomorrow if there was any response. Lydia South WINDSHIELD REPAIR TECHNICIAN,LARD RENDERER SW IRP, Please note that I am the weekend IRP and am not the primary social insurance adviser for this service and/or patient. Please contact primary social insurance adviser during the week for any additional needs. Contact info for weekend CM and SW staff (8:00am - 4:30pm): [facility]: CCM: [phone] / Automotive Parts Specialist: [phone] Munoz: CCM: [phone] / Automotive Parts Specialist: [phone] Gregory: CCM : [phone] / Automotive Parts Specialist: [phone] Ross/MICU/PCU Jose: CCM: [phone] / Automotive Parts Specialist: [phone] Department of Pharmacy Pharmacokinetics Progress Note Patient: Kerrie Kearney Room/Bed: [facility]/A Assessment and Plan: Based upon drug [...] further questions. Name: Carleen Gould RPH Phone: [phone] Date/Time: 01/18/2024 9:08 PM NUTRITION RISK SCREENING [...] encourage PO intake with goal of 75%, dietary internship to follow __ Kerrie Kearney is a 78 y.o. female admitted with a past medical history of hypertension, diabetes mellitus and hyperthyroidism who presented to [facility] on 01/07 with a chief complaint of confusion. Past medical history reviewed in chart: Diet order: DIET REGULAR Nutrition Risk Factor Screening Appetite: poor Patient c/o: nausea GI: Last Bowel Movement: 01/18/24 Chewing / Swallowing Problems: no issues with chewing and/or swallowing Cultural or Hinduism Restrictions/Preferences: None Food Allergies: None Skin Integrity [...] and weight changes. Bib Sage DTR Pager: [phone] Placement Plan Expected Discharge Date: 01/21/2024 Referred Level of Care: SNF Barriers: Medical stability, Facility choice Current Referrals and Status 1. [facility] - Accepted 2. [facility] - Accepted 3. [facility] - Accepted Went to pt's room to [...] SW assistance in following up. JAMAR Mccain Automotive Parts Specialist *Please note that I am a float social insurance adviser and that I may not cover the same service everyday. Please call the main Social Work office at for up to date coverage. For Social Work assistance for the weekend, please contact for assistance as needed (8:00am - 4:30pm): BAS: [phone] or [phone] Tammy: [phone] or [phone] Gregory: [phone] or [phone] Ross/MICU/PCU Jose: [phone] or [phone] [facility] Medicine Daily Progress Note Physician: Martin Kapadia III, MD, Attending Physician, 6 service Today's Date: 01/18/2024 Patient: Kerrie Kearney, : 1945, Admitted: 01/11/2024, Length of stay: 7 days IMPRESSION/PLAN: Kerrie Kearney is a 78 y.o. female with a history of chronic cognitive impairment, hyperthyroidism, DMt2, and HTN who presented on 01/11/2024 as a transfer from [place] for further evaluation of encephalopathy and fevers [...] home Coreg, Diltiazem -Holding home Lisinopril for RCIK -May fold in some Hydralazine to scrap picker the slack while Lisinopril is held [...] choice, precert, transport Current Referrals and Status [facility] - accepted [facility] - accepted [facility] - accepted [place] [facility] [place] - under review [facility] - under review [facility] - under review sent clinical updates, updated facilities that patient will finish her IV abx prior to DC. Extended Aidin timer until tomorrow and asked reviewing facilities to provide determination. SHAYNA Marc Automotive Parts Specialist - Surgical ICU Hospital Medicine Daily Progress Note Physician: Martin Kapadia III, MD, Attending Physician, GM6 service Today's Date: 01/17/2024 Patient: Kerrie Kearney, : 1945, Admitted: 01/11/2024, Length of stay: 6 days IMPRESSION/PLAN: Kerrie Kearney is a 78 y.o. female with a history of chronic cognitive impairment, hyperthyroidism, DMt2, and HTN who presented on 01/11/2024 as a transfer from [place] for further evaluation of encephalopathy and fevers [...] 6 mg 6 mg Oral QHS PRN Trerence Augustine MD 6 mg at 01/16/242057 Meropenem [...] Pharmacokinetics Progress Note Patient: Kerrie Kearney Room/Bed: [facility] Assessment and Plan: Based upon drug level [...] further questions. Name: Lina Stubbs RPH Phone: [phone] Date/Time: 01/16/2024 10:07 PM Acute Care Speech Language Pathology Treatment Diet Recommendations: Recommended Method of Nutrition: PO Recommended Diet Grade: regular Recommended Liquid Consistency: liquid- thin (IDDSI 0) Recommended Medication Administration (as appropriate per MD): Per patient preference Type of Cues/Supervision: intermittent supervision Assistance: nurse/aide, family Best mode of Communication: verbal Discharge Recommendations: Based on the below outcome measures/assessment score(s) and REELING AND TUBING MACHINE OPERATOR clinical judgment, discharge destination recommendation is: no skilled REELING AND TUBING MACHINE OPERATOR services anticipated Acute REELING AND TUBING MACHINE OPERATOR Outcomes Tracking Communicate basic wants and needs?: [...] O2 Device: room air (01/15 1055) Acute REELING AND TUBING MACHINE OPERATOR Goals Plan of Care by MAYRA Prakash [...] fade cues to redirect attention. However, skilled REELING AND TUBING MACHINE OPERATOR services no longer appear warranted as long as patient has assist to support attention to po intake. Outcome: Met Patient Education/Instruction Learners: Patient, Spouse Education provided: Dysphagia recommendations/impressions Teaching method: Verbal Education/Instruction, Demonstration Learner response: Applies knowledge Learning preferences: Auditory Learning considerations: No barriers/ready to learn Patient Instruction/Education comments: REELING AND TUBING MACHINE OPERATOR signing off, positioning during po intake Plan for next session: sign off REELING AND TUBING MACHINE OPERATOR Outcomes: FOIS7 Speech Language Pathologist: MAYRA Prakash Time In: 1415 Time Out: 1430 Total Visit Time: 15 minutes Total Treatment Time (skilled, billable minutes): 15 minutes Non-billable assistance during session: na Assisted by during session: na PPE used during patient interaction: gloves Patient location/status at end of session: chair Patient alarms at end of session: none altered Needs in reach. REELING AND TUBING MACHINE OPERATOR Evaluation and Treatment Time Swallowing Dysfunction Treatment 58184: 15 Upon discontinuation of Acute Care Speech Therapy Services or patient discharge from the hospital this note represents the current Speech Therapy Discharge Summary [facility] Medicine Daily Progress Note Physician: Martin Kapadia III, MD, Attending Physician, 6 service Today's Date: 01/16/2024 Patient: Kerrie Kearney, : 1945, Admitted: 01/11/2024, Length of stay: 5 days IMPRESSION/PLAN: Kerrie Kearney is a 78 y.o. female with a history of chronic cognitive impairment, hyperthyroidism, DMt2, and HTN who presented on 01/11/2024 as a transfer from [place] for further evaluation of encephalopathy and fevers [...] IVPB 1,250 mg Intravenous Q24H Samantha Vallejo, [facility] 143.8 mL/hr at 01/15/242131 1,250 mg at [...] is a good candidate for discharge to [facility] Facility Barriers to discharge home: Patient needs [...] noted Mobility Assessment/Intervention: Supine to Sit Mobility [place] Level: Supine->Sit: stand-by assist Skilled Rationale: Verbal cues, Tactile cues, Hand placement, Full extension to upright positioning/posture, Technique of activity Skilled Intervention/Details: Supine->Sit: supine to sit to EOB with SBA and increased time Transfer Assessment/Intervention: Sit to Stand Transfer [place] Level: Sit->Stand: minimum assist (75% patient effort) Assistive Device: Sit->Stand: gait belt, 2 wheeled walker Skilled Rationale: Verbal cues, Tactile cues, Hand placement, Full extension to upright positioning/posture Skilled Intervention/Details: Sit->Stand: x1 trial from EOB, x1 trial from toilet. Verbal/tactile cues for instruction on hand placement and faciliation of anterior weight shift required to initiate transfer. Gait/Functional Mobility Assessment/Intervention: Gait Assessment [place] Level: Gait: (min to mod A) Assistive [...] promotion of upright posture. Outcome Score(s): CURRENT [facility] Basic Mobility Inpatient Short Form Turning over [...] with a railin - Total Assistance CURRENT [facility] Mobility Raw Score: 16 CURRENT [facility] Mobility Functional Limitation: 54.16% Impaired in Basic [...] OT clinical judgment, discharge destination recommendation is: [facility] Facility *If pt and spouse decide to [...] noted Mobility Assessment/Intervention: Supine to Sit Mobility [place] Level: Supine->Sit: stand-by assist Bed Features/Set-up: Supine->Sit: Head of bed elevated, Use of bed rail Skilled Rationale: Cues for increased safety, Technique of activity, Verbal cues Skilled Intervention/Details: Supine->Sit: Cues for safety; Mildly increased time/effort to align hips. Transfer Assessment/Intervention: Sit to Stand Transfer [place] Level: Sit->Stand: minimum assist (75% patient effort) [...] versus kyphotic posture. Stand to Sit Transfer [place] Level: Stand->Sit: minimum assist (75% patient effort) Assistive Device: Stand->Sit: gait belt, 2 wheeled walker Skilled Rationale: Cues for increased safety, Technique of activity, Controlled descent for sitting, Tactile cues, Verbal cues, Hand placement Toilet Transfer [place] Level: Toilet: minimum assist (75% patient effort) [...] alignment upon descent. Functional Mobility: Functional Mobility [place] Level: Functional Mobility/Gait: minimum assist (75% patient [...] a decreased rate overall. Outcome Score(s): CURRENT [facility] Daily Activity Inpatient Short Form Putting on/Taking Off Lower Body Clothin - A Lot of Assistance Bathin - A Lot of Assistance Toiletin - A Lot of Assistance Putting on/Taking Off Upper Body Clothin - A Little Assistance Groomin - A Little Assistance Eatin - No Assistance CURRENT [facility] Activity Raw Score: 16 CURRENT [facility] Activity Functional Limitation/Modifier: 53.32% Currently Impaired in [...] represents the current Occupational Therapy Discharge Summary. [facility] Medicine Progress Note Patient: Kerrie Kearney, : [...] - improved Delirium, on top of suspected alf cognitive decline Suspected bacterial meningitis -Per OSH [...] - might need titration prior to discharge -telehealth nurse educator consulted to help teach how to [...] Corley DO Division of Hospital Medicine [facility] Acute Occupational Therapy Treatment Prior Gross Functional Mobility: used device Current AM-PAC score(s): CURRENT AM-PAC Activity Raw Score: 14 Based on the above AM-PAC score(s), and OT clinical judgment, discharge destination recommendation is: [facility] Facility Barriers to discharge home: Patient needs [...] to directions, Difficulty dividing attention Memory: Decreased bracer memory, Decreased short term memory Problem Solving: [...] noted Mobility Assessment/Intervention: Supine to Sit Mobility [place] Level: Supine->Sit: moderate assist (50% patient effort) [...] task. Transfer Assessment/Intervention: Sit to Stand Transfer [place] Level: Sit->Stand: moderate assist (50% patient effort) [...] from bedside chair. Stand to Sit Transfer [place] Level: Stand->Sit: moderate assist (50% patient effort) Assistive Device: Stand->Sit: gait belt, 2 wheeled walker Skilled Rationale: Cues for increased safety, Technique of activity, Controlled descent for sitting, Ischial assist, Arm in arm, Tactile cues, Verbal cues, Hand placement, Sequencing, Positioning Bed-Chair Transfer [place] Level: Bed<->Chair: moderate assist (50% patient effort) [...] management despite therapist cueing/education. Outcome Score(s): CURRENT [facility] Daily Activity Inpatient Short Form Putting on/Taking Off Lower Body Clothin - A Lot of Assistance Bathin - A Lot of Assistance Toiletin - A Lot of Assistance Putting on/Taking Off Upper Body Clothin - A Lot of Assistance Groomin - A Little Assistance Eatin - A Little Assistance CURRENT [facility] Activity Raw Score: 14 CURRENT [facility] Activity Functional Limitation/Modifier: 59.67% Currently Impaired in [...] examiner, tracks examiner. Normal conjunctivae and lids. hat trimmer III, IV and : extraocular movements intact. [...] neurology consultation resident. Andressa Carrington MD [facility] Department of Neurology Patient seen and staffed [...] if any further assistance is needed Leonidas Sliva MD Printing Press Operator Apprentice Department of Neurology, Epilepsy Division [facility] Acute Care Speech Language Pathology Treatment Diet Recommendations: Recommended Method of Nutrition: PO Recommended Diet Grade: regular Recommended Liquid Consistency: liquid- thin (IDDSI 0) Recommended Medication Administration (as appropriate per MD): Per patient preference Swallow Strategies: (Small sips, bites and liquid washes) Type of Cues/Supervision: 1:1 supervision Assistance: nurse/aide, family Discharge Recommendations: Based on the below outcome measures/assessment score(s), FOIS, and REELING AND TUBING MACHINE OPERATOR clinical judgment, discharge destination recommendation is: Deferred to PT/OT recomendations related to mobility Barriers to discharge home: Need for 1:1 assist to ensure safety with all PO intake Supporting factors for discharge setting: Impaired swallow function limiting nutritional status and safety with oral intake Acute REELING AND TUBING MACHINE OPERATOR Outcomes Tracking Communicate basic wants and needs?: [...] O2 Device: room air (01/13 150) Acute REELING AND TUBING MACHINE OPERATOR Goals Plan of Care by MAYRA Cramer [...] of session: none altered Needs in reach. REELING AND TUBING MACHINE OPERATOR Evaluation and Treatment Time Swallowing Dysfunction Treatment 41617: 17 Upon discontinuation of Acute Care Speech [...] any questions, Name: Rin Morales RPH Phone: [phone] Date/Time: 01/14/2024 1:38 PM Discharge Planning Patient Assessment Admission Assessment Patient Assessment Completed: Initial Anticipated discharge disposition: [facility] Facility Reason for Admission: Kerrie Kearney is [...] updated Care Team?: Yes No care senior engineering team leader to display Environment/Caregivers Is the patient from a facility or correction?: No Patient lives with: Spouse or Partner [...] Anticoagulation? : No [id number] [place] [address] [phone] [facility] [address] Bi Data Architect Does the patient or public utilities sales representative express financial concerns? : No Employed?: Yes Coping/Stress Concerns about patient s coping and stress?: No Concerns about patient s caregiver s coping and stress?: Yes Referrals to address coping or stress concerns: Other Initial Discharge Planning Anticipated discharge disposition: [facility] Facility Transportation Available for Discharge: Ambulance, Private Vehicle, Family or Friend Anticipated DME: none Anticipated Services at Discharge: DME, Physical Therapy, Occupational Therapy, Outpatient follow up Patient Assessment Completed: Initial Expected Discharge Date: 01/14/2024 Care Management Plan Spouse present during this admission. Confirmed couple relocated back to [place] from [place]. Patient going to need SNF at discharge. PT/OT rec's skilled rehabilitation. Plan of IV antibiotic at discharge. Plan to re-visit discharge plan with the family. Will determine next level of care closer to discharge. Phylicia ORELLANA RN Clinical Gas Meter Repair Supervisor [phone] Outpatient Parenteral Antibiotic Therapy (OPAT): For patients who will be discharged on parenteral (IV) antibiotic therapy, please utilize the OPAT discharge orderset. For patients who are on oral antibiotic therapy, utilization of this orderset is not necessary. Diagnosis: AIR TESTER Meningitis Antibiotic(s) with dose: The dosing of [...] Dr. Ana England Labs: Please have the [facility] or [facility] obtain the following labs and fax to [phone], attention (ID Attending): Dr. Ana England - [...] [facility] we will defer ID Care to the Infectious Disease Providers at the [facility] facility. Please instruct the facility that if [...] with Infectious Diseases consulted for evaluation of AIR TESTER infection. Acute encephalopathy, concern for bacterial meningitis [...] Start Meropenem 2g every 12 hours (ASP: [id number]) based on current renal function. Continue Vancomycin with goal trough 15-20. End of therapy of 01/20/2024 based on start date of 01/07/2024 at [facility]. ID Team 2 will sign-off at [...] 01/14/2024 Microbiologic Data (personally reviewed): Blood (01/08/2024, [place]): No growth CSF (01/11/2024): No growth Glu [...] England MD Division of Infectious Diseases Pager: [phone] Hospital Medicine Progress Note Patient: Kerrie Kearney, [...] SSI, will uptitrate as needed -Endocrine and nurse informatics educator consulted. Will need insulin supplies prior [...] Corley DO Division of Hospital Medicine [facility] Acute Physical Therapy Evaluation Prior Gross Functional Mobility: used device Current AM-PAC score(s): CURRENT AM-PAC Mobility Raw Score: 15 Based on the above AM-PAC score(s) and PT clinical judgment, patient is a good candidate for discharge to [facility] Barriers to discharge home: Patient needs [...] Intact Mobility Assessment: Supine to Sit Mobility [place] Level: Supine->Sit: moderate assist (50% patient effort) [...] extend. Transfer Assessment: Sit to Stand Transfer [place] Level: Sit->Stand: minimum assist (75% patient effort) Assistive Device: Sit->Stand: gait belt, 2 wheeled walker Skilled Rationale: Positioning, Hand placement, Verbal cues, Full extension to upright positioning/posture, Finding/maintaining midline positioning Skilled Intervention/Details: Sit->Stand: x1 from EOB Stand to Sit Transfer [place] Level: Stand->Sit: minimum assist (75% patient effort) Assistive Device: Stand->Sit: gait belt, 2 wheeled walker Skilled Rationale: Positioning, Hand placement, Verbal cues Gait/Functional Mobility: Gait Assessment [place] Level: Gait: minimum assist (75% patient effort) [...] with a railin - Total Assistance [facility]RENT -[facility] Mobility Raw Score: 15 CURRENT -[facility] Mobility Functional Limitation: 57.70% Impaired in Basic [...] OT clinical judgment, discharge destination recommendation is: [facility] Facility Barriers to discharge home: Patient unable [...] to directions, Difficulty dividing attention Memory: Decreased bracer memory, Decreased short term memory Problem Solving: [...] noted Mobility Assessment: Supine to Sit Mobility [place] Level: Supine->Sit: moderate assist (50% patient effort) [...] task. Transfer Assessment: Sit to Stand Transfer [place] Level: Sit->Stand: minimum assist (75% patient effort) [...] versus kyphotic posturing. Stand to Sit Transfer [place] Level: Stand->Sit: minimum assist (75% patient effort) Assistive Device: Stand->Sit: gait belt, 2 wheeled walker Skilled Rationale: Cues for increased safety, Initiation and execution of task, Technique of activity, Controlled descent for sitting, Arm in arm, Tactile cues, Verbal cues, Hand placement Functional Mobility: Functional Mobility [place] Level: Functional Mobility/Gait: minimum assist (75% patient [...] Pharmacokinetics Progress Note Patient: Kerrie [facility]earney [facility] Assessment and Plan: Based upon drug [...] further questions. Name: Samantha Vallejo RPH Phone: [phone] Date/Time: 01/13/2024 10:08 PM [facility] Medicine Progress Note Patient: Kerrie Kearney, : [...] now, lispro SSI, will uptitrate as needed -telehealth nurse educator consulted. Will need insulin supplies prior [...] Corley DO Division of Hospital Medicine [facility] ..BEHAVIORAL EMERGENCY RESPONSE TEAM ([place]) PCT NOTE [...] behavior or emotional issues arise. UMER Riley [facility] Pager: [phone] [facility] Phone: [phone] Hospital Medicine Progress Note Patient: Kerrie Kearney, [...] now, lispro SSI, will uptitrate as needed -telehealth nurse educator consult and will need insulin supplies [...] Corley DO Division of Hospital Medicine [facility] Images from the original note were not included. Inpatient Neurology Consultation Note Physician: Alisha Armendariz MD, MPH, PGY-3 Patient: Kerrie Kearney, 1945, [id number] ADMIT DATE: 01/11/2024 Date of face to [...] meningitis. Per HPI from Dr. Tolentino at [place]: Per , at baseline she uses a [...] MRI brain in a couple days. At [place], she was started on vanc, cefepime, ampicillin, and acyclovir on 01/07 (called OSH to confirm). rEEG showed generalized slowing with some triphasics. She was transferred to [facility] on 01/11/24 given inability to obtain an [...] to confrontation. Differed pupillary exam given photophobia hat trimmer III, IV and : extraocular movements intact. [...] in BUE SA EE EF WE WF Resident In Diagnostic Radiology HF KE KF DF PF Right 5 [...] to light touch throughout Coordination/Complex Motor: - [id number] intact bilaterally without dysmetria Data Review: Lytes: [...] on the below outcome measures/assessment score(s) and REELING AND TUBING MACHINE OPERATOR clinical judgment, discharge destination recommendation is: Deferred to PT/OT recomendations related to mobility Acute REELING AND TUBING MACHINE OPERATOR Outcomes Tracking Communicate basic wants and needs?: [...] diabetes mellitus and hyperthyroidism who presented to [facility] on 01/07 with a chief complaint of confusion. Of note this history is obtained from outside hospital documentation as the patient can not provide history. It seems that she was last known well at 11:30 p.m. the evening before presentation. noted she was having unusual behaviors, and difficulty ambulating. At [place] she underwent a stroke alert and a [...] or meningitis and she was referred to [facility]. LP was attempted but not successfully [...] dramatic changes over last several days. Prior REELING AND TUBING MACHINE OPERATOR history: none on file. Current Method of [...] Recommend meds crushed or whole in puree. REELING AND TUBING MACHINE OPERATOR to follow for ongoing dysphagia management and [...] Stroke education: Role of rehabilitation discipline Acute REELING AND TUBING MACHINE OPERATOR Goals Plan of Care by MAYRA Campbell [...] of session: none altered Needs in reach. REELING AND TUBING MACHINE OPERATOR Evaluation and Treatment Time Swallowing Eval 89882: 13 Upon discontinuation of Acute Care Speech Therapy Services or patient discharge from the hospital this note represents the current Speech Therapy Discharge Summary Patient Information: Inpatient/Outpatient: Inpatient Weight: N/A Code Status: Full IV: N/A Only Outpatient Senior Corporate Recruiter: N/A Phone Number: N/A Procedure Information: Exam: [...] Patient has transferred from an outside hospital ([facility]). I have contacted the facility and confirmed the following antimicrobial, antiepileptic, and anticoagulant medications were received by the patient prior to arrival at [facility]: Antimicrobials: Vancomycin 1 g on 01/09 @ 1852 Acyclovir 595 mg on 01/09 @ 2347 Ampicillin 2 g on 01/10@0515 Cefepime2 g on 01/09 @ 2323 Please feel free to contact me with any further questions. Name: Rin Morales RPH Phone #: [phone] Date/Time: 01/11/2024 1:39 PM Department of Pharmacy [...] any questions, Name: Rin Morales RPH Phone: [phone] Date/Time: 01/11/2024 1:02 PM H&P Procedure Update: [...] NPO. PVAT WOJCIECH: HUSSEIN Gill Contact # [phone] documented in this encounter [facility] 01-29-2024 Miscellaneous Notes Problem: Adult Inpatient Plan [...] sitting in recliner chair and watching tv. CEMENT DESPATCH OPERATOR/sitter provided 1:1 safety monitoring in room. Pt expressed hopefulness for discharge soon and denied needs at this time. No behavioral issues or distress noted. Call JUANJO as needed to use as a resource for pt. JUANJO is available daily between [phone]. Oneil ORELLANA, JESSICA- JUANJO Pager: [phone] JUANJO Problem: Adult Inpatient Plan of Care [...] this time. Migdalia Valenzuela RN- JUANJO Pager: [phone] JUANJO Phone: [phone] Notified regarding hyperglycemia 361. Had 53 carbs [...] to fluids without dextrose? Thanks JESSICA Willis [phone] Paged : [phone] Caio: Pt. blood sugar 361. Lispro is only ordered with meals not bedtime. She got 2 units of glargine. Do we want to change that order. Also her fluids are with dextrose. should we change to without? Thanks JESSICA Willis [phone] 1. Continue current diet order. 2. Will [...] trends and plan of care goals. 5. Cloth Picker to follow. BEHAVIORAL EMERGENCY RESPONSE TEAM (JUANJO) RN NOTE 01/25/2024 Kerrie Kearney : 1945 JUANJO rounds: Pt was observed sleeping in recliner chair and was not disturbed at this time. CEMENT DESPATCH OPERATOR/sitter provided 1:1 safety monitoring in room and pt's was visiting at bedside. No behavioral issues or distress noted. Call JUANJO as needed to use as a resource for pt. JUANJO is available daily between [phone]. Oneil ORELLANA, RN- JUANJO Pager: [phone] JUANJO Problem: PT - General Goals Goal: [...] up in chair and visiting with . CEMENT DESPATCH OPERATOR/sitter was checking pt's blood glucose. No behavioral issues, distress, or needs noted for the JUANJO at this time. Call JUANJO as needed to use as a resource for pt. JUANJO is available daily between [phone]. Oneil ORELLANA, RN- JUANJO Pager: [phone] JAUNJO Problem: OT - Transfers Goal: Transfers Toilet/ [...] Kerrie Kearney : 1945 JUANJO sitter round: CEMENT DESPATCH OPERATOR/sitter at bedside providing care I did not disturb at this time. JUANJO is available as a resource daily from [phone]. Contact if needs arise. Ashley Stallworth RN-[facility] Pager: [phone] JUANJO Phone: [phone] Problem: OT - ADLs Goal: Lower Body [...] prn IV Que Machado MD Kerrie Caio ([id number]) PRE OPERATIVE DIAGNOSIS Small bowel obstruction [K56.609] [...] Anesthesiologist: Vinod Duke MD; Michelle Woodruff MD BUFFER CHROME: Gilda Meyers APRN-BUFFER CHROME Commercial Internship: KYA Emmanuel SURGICAL STAFF Atmospheric Chemist: Joce Mei RN Physician Configuration Engineer: Alisha Trimble, PAC Relief Atmospheric Chemist: Amber Chacon RN Scrub Person: Annie Webb RN Resident Assisting: Josh Camacho MD; Mariela Carrillo MD COMPLICATIONS None ESTIMATED BLOOD LOSS 100 ml SPECIMENS ID Type Source Tests Collected by Time Destination 1 : small bowel Permanent TISSUE SURG PATH REQUEST Jacob Chester MD 01/22/2024 1502 Jacob Chester MD January 22, 2024 4:37 PM [facility] Trauma, Critical Care, and Burn Surgery Operative [...] MD Anesthesiologist: Michelle Woodruff MD Surgical Staff: Atmospheric Chemist: Joce Mei RN Physician Configuration Engineer: Alisha Trimble PAC Relief Atmospheric Chemist: Amber Chacon RN Scrub Person: Annie Webb [...] the beginning of the procedure with anesthesia, director surgical, operating room nurse, and members of the [...] on examination. Will keep NG to LIWS. Denali mitts ordered as patient pulled out NG tube earlier today. Will obtain CT abdomen/pelvis to evaluate for SBO now that NG is in place. Update, 4:38 AM - discussed CT with radiology, concerning for closed loop SBO. Will consult gen surg. Checking CBC, chem, LFTs, lactate, INR, and T/C. Continue NPO with NG to LIWS. Titus Acevedo MD [facility] Medicine RN sent page to MD Martin [...] for pt. JUANJO is available daily between [phone]. Oneil ORELLANA, RN- JUANJO Pager: [phone] JUANJO Problem: Adult Inpatient Plan of Care [...] JUANJO availability explained to sitter. Migdalia Valenzuela RN-[facility] Pager: [phone] JUANJO Phone: [phone] Problem: OT - ADLs Goal: Lower Body [...] Sitter Rounds: Pt working with OT when JUNAJO was rounding. Patient's present and observing. Sitter in room. JUANJO did not disrupt care. No needs reported for JUANJO at this time. Migdalia Valenzuela RN- JUANJO Pager: [phone] JUANJO Phone: [phone] Problem: OT - ADLs Goal: Bathing - [...] oropharyngeal swallow function to most appropriately guide REELING AND TUBING MACHINE OPERATOR plan of care Outcome: Progressing Goal: FEES - Patient will participate in Fiberoptic Endoscopic Evaluation of Swallowing (FEES) study to objectively assess pharyngeal swallow function to most appropriately guide REELING AND TUBING MACHINE OPERATOR plan of care Outcome: Progressing Problem: REELING AND TUBING MACHINE OPERATOR - Cognition Goal: Ongoing Assessment - Patient will participate in ongoing dynamic assessment of motor speech, expressive/receptive language, and cognitive-linguistic skills across 1 session to better assess deficits and most appropriately guide REELING AND TUBING MACHINE OPERATOR plan of care Outcome: Progressing Problem: REELING AND TUBING MACHINE OPERATOR - Language Goal: Communicate Wants/Needs - Patient will independently communicate basic wants/needs via any communication modality on at least 3 opportunities to improve functional communication and ability to direct care Outcome: Progressing Problem: REELING AND TUBING MACHINE OPERATOR - AAC Goal: Utilization - Patient will use augmentative and alternative communication/speech generating device to communicate wants/needs/ideas on at least 5 occurrences to demonstrate improved independence communicating Outcome: Progressing Problem: REELING AND TUBING MACHINE OPERATOR - Disorders of Consciousness Goal: Emergence - [...] Team notified. documented in this encounter [facility] 01-26-2024 Consult note Formatting of th is [...] Department of Surgery [phone] Associated attestation - aJcob Chester MD - 01/22/2024 1:47 PM EDT [...] Resources: Link to diabetes education book in Australian: DiabetesEducation.pdf Link to diabetes education book in Irish: DiabetesEducation_SP.pdf Diabetes videos: https://www.healthwise.net/osumych art/Content/StdDocument.aspx?DOCHW RZ=vhkmdl4570 Link to order the diabetes education books (you would login and select your location, select the disease, diabetes and then you will see the option to order the book): https://apps.[facility].edu/clinical/pt educordering/Identity/Account/Logi n?ReturnUrl=/clinical/pteducorderi ng DM History: Type [...] DM self-management education. Thank you, Agustin Pinzon SLIP FEEDER-AIR TESTER Gear Shaper Set Up Operator- Endocrinology, Diabetes & Metabolism Associated Order(s): IP CONSULT TO ENDOCRINOLOGY - DIABETES Images from the original note were not included. [facility] Inpatient Diabetes Consults - Initial Consult Note- [...] qachs 2. Discharge Plan: Anticipated discharge disposition: [facility] Facility Tentative Discharge Plan: If patient is [...] consult does not need placed. For provider personal clothing laundry aide, please use QGENDA : TEAM 2 Thank [...] any other complaints. Per chart, moved from [place] to [place] in 2023. Presented to [facility]SH 01-07 with [...] years Outpatient physician: ? Prior was with: [facility], [facility] Endocrinology [address] [address] Diabetes Complications: retinopathy and nephropathy [...] 20 01/12/2024 No results found for: TSH, V9IKABK, T4FREE Cardiac echo: EF = Results for [...] . Thank you, Agustin Pinzon APRN - AIR TESTER Gear Shaper Set Up Operator/Endo. Diabetes & Metabolism VASCULAR ACCESS NOTE: Thank [...] attempt to reach Mr. Kearney. PICC pager [phone] PIV pager [phone] Associated Order(s): IP CONSULT TO INFECTIOUS DISEASE [...] hyperthyroidism. Admitted 01/11/2024 as a transfer from [facility] for neurological evaluation, LP for c/f [...] note patient and her recently moved from [place] which seemed to be a very difficult move, she had also c/o some headaches in the past few days. She was taken to [place] by EMS on 01/07 she underwent a [...] Resource Strain: Low Risk (07/25/2023) Received from [employer] Overall Financial Resource Strain (CARDIA) Difficulty of Paying Living Expenses: Not very hard Food Insecurity: No Food Insecurity (07/25/2023) Received from [employer] Hunger Vital Sign Worried About Running Out of Food in the Last Year: Never true Ran Out of Food in the Last Year: Never true Transportation Needs: No Transportation Needs (07/25/2023) Received from [employer] PRAPARE - Transportation Lack of Transportation (Medical): No Lack of Transportation (Non-Medical): No Physical Activity: Insufficiently Active (07/25/2023) Received from [employer] Exercise Vital Sign Days of Exercise per Week: 1 day Minutes of Exercise per Session: 10 min Stress: No Stress Concern Present (07/25/2023) Received from [employer] [place] of Occupational Health - Occupational Stress Questionnaire Feeling of Stress : Not at all Social Connections: Moderately Integrated (07/25/2023) Received from [employer] Social Network How would you rate your social network (family, work, friends)?: Adequate participation with social networks Intimate Partner Violence: Not At Risk (07/25/2023) Received from [employer] HITS Over the last 12 months how [...] Housing Stability: Low Risk (07/25/2023) Received from [employer] Housing Stability Vital Sign Unable to Pay [...] 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 Admitted 01/11/2024 as a transfer from [facility] for neurological evaluation, LP for c/f meningitis/encephalitis. ID is c/for the same AMS: on reviewing hx, fever happened in [place] ER. AMS had started at home w [...] here but noted to be 101 at [place]. Doesn't appear that bcx were obtained Estimated [...] Guaman MD documented in this encounter [facility] 01-22-2024 Nurse Note Report given to recovery room, Aure Aguilar RN. Pt breathing responsively, on oxygen, transported in hospital bed with anesthesiologist. documented in this encounter [facility] 01-14-2024 Hospital Discharge instructions Jaime Chambers II, [...] the care and services we provide at [facility]. We truly appreciate you taking the time [...] non-emergency questions call the Surgery Clinic at [phone]. - Eves, weekends and holidays - Ask to page the Trauma/Emergency General Surgery resident personal clothing laundry aide. - Clinical Casemanager: Leonel Arita RN. [phone]. Personal Responsibilities: Driving Restriction: - You should [...] Insurance or Employer: - Your CCM, SW shafting worker can provide you with a work excuse. - Family Medical Leave, Short Term Disability or other documents can be sent to your casemanager or clinic staff for completion. - Fax documents with your full name, date of and medical record number to clinic [phone]. [employer] a return fax number. - Anticipate < 10 business days for document completion. To Request Your Medical Records: [facility] Department of Medical Information Management: - The care you receive at [facility] is documented on your Electronic Medical Record (EMR) - You may request information from your medical record or participate in your care through [employer], which provides a portion of your overall medical record and offers communication services with your providers offices. - To request information from your medical record: Download, complete and return this authorization form: [email or web address]://wetananermedical.[facility]/~/med ia/Files/Wetanaaurora west hospitalMedical/Patient-Car e/Gtixxmt-zkz-Lzpwwjo-Guide/Medica l-Records/Ppvncomajkvfg-dmv-Idrlbv k-kc-Qdiqdee-Information.pdf?la=en [facility] Medical Information Management Office: - [facility] at [phone] Mon- Fri 8am- 7pm - [facility] at [phone] Mon-Sun 8am- 7pm For Copies of [facility] Digital Radiologic Imaging on DVD Contact: - [facility] Department of Radiology Imaging Informatics PACS - PACS- Picture Arch[employer] [facility] - p [phone]. Hours Mon-Fri 9:00am to 3:00pm Personal Health [...] location of all previously scheduled appointments. - [email or web address]://[facility]/patie nt-care/xibpvpnzp-jtw-phwhvwy. [facility], [facility] Map: http://[facility]/~/[facility]/Files/Shared/Locations/Driving- Directions/[facility] Hospitalubdn-Lxihvm-Lnl.pdf?la=en Trauma and Emergency General Surgery Clinic: http://[facility]/~/[facility] ia/Files/Shared/Locations/Driving- Directions/[facility]/Dri_Dir _[facility].pdf Irene Ahmadi MD - 01/27/2024 12:18 PM [...] Care Everywhere.Wound Drainage Record Sheet (Rhett Garcia) (Australian)Wound Drain Care (Rhett Garcia) (Australian)documented in this encounter [facility] 01-11-2024 History and physical note Hospital Medicine [...] properly assess for clonus. Ddx also includes AIR TESTER lyme and syphillis. Will grab CSF lyme, [...] diabetes mellitus and hyperthyroidism who presented to [facility] on 01/07 with a chief complaint of confusion. Of note this history is obtained from outside hospital documentation as the patient can not provide history. It seems that she was last known well at 11:30 p.m. the evening before presentation. noted she was having unusual behaviors, and difficulty ambulating. At [place] she underwent a stroke alert and a [...] or meningitis and she was referred to [facility]. LP was attempted but not successfully [...] erythema Skin: R sims with wound.. Neuro: hat trimmer 3-7, 9-11 intact and equal. Strength grossly equal in muscle groups of the bilateral UEs and LEs. Psych: Ox0, appropriate affect and cognition Data Review [facility] labs, imaging reviewed. Discuseed with PVAT documented in this encounter [facility] 01-11-2024 Note [facility] Evaluation note Diagnosis Delirium- Primary Other [...] intestinal obstruction [facility] Diagnosis SBO (small bowel obstruction)- Primary Unspecified intestinal obstruction [facility] Diagnosis Iron deficiency anemia, unspecified iron deficiency anemia type- Primary [facility] Diagnosis 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 [facility]* Diagnosis 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 [facility] Diagnosis 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 documented [facility]* Diagnosis 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 documented [facility]* Diagnosis 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 documented [facility]* Diagnosis 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 [facility]'s [facility] Work Phone: Reason for referral (narrative)No reason for referral information availableWMercy Health St. [facility]'s Medical [facility] Work Phone: Reason for Referral Specialty Diagnoses / Procedures Referred By Lester head Referred To Contact Social Work Diagnoses Decreased functional mobility Delirium Jaime Chambers II, MD [address] [place] [address] Referral ID Status Reason Start Date Expiration Date V isits Requested Visits Authorized [id number] New Request 01/29/2024 02/22/2025 1 1 Specialty Diagnoses / Procedures Referred By Contac t Referred To Contact [facility] [address] [place] [phone] Referral ID Status Reason Start Date Expiration Date Visits Re quested Visits Authorized Specialty Diagnoses / Procedures Referred By Contac t Referred To Contact Neurology Diagnoses Impaired cognition Sunitha Corley, DO [address] [address] Referral ID Status Reason Start Date Expiration Date V isits Requested Visits Authorized [id number] New Request 01/15/2024 02/08/2025 1 1 Specialty Diagnoses / Procedures Referred By Contac t Referred To Contact Social Work Diagnoses Meningitis Decreased functional mobility Sunitha Corley, DO [address] [facility] [address] [address] Referral ID Status Reason Start Date Expiration Date V isits Requested Visits Authorized [id number] New Request 01/14/2024 02/07/2025 1 1 Specialty Diagnoses / Procedures Referred By Contac t Referred To Contact Interventional Radiology [facility] [address] [place] [phone] Advance Directives Date Activated Date Inactivated Comments [...] Guzman MD [address] [place] [address] [facility] [address] [place] [address] Referral ID Status Reason Start Date Expiration Date Visits Re quested Visits Authorized [id number] 1 1 Reason Comments Follow-up Reason Comments New Patient Reason Comments Benefits Investigation Reason Comments Non-Chemotherapy Treatment Specialty Diagnoses / Procedures Referred By Contac t Referred To Contact Diagnoses Iron malabsorption Iron deficiency anemia secondary to inadequate dietary iron intake Procedures IRON SUCROSE INJECTION PER 1 MG Adan Scott, DO [address] [place] [address] [facility] [address] [place] [address] Referral ID Status Reason Start Date Expiration Date V isits Requested Visits Authorized [id number] Authorized 04/09/2024 07/15/2024 0 99 Reason Comments SOCIAL WORK SERVICES (1ST TIME TREATMENT ) Referral ID Status Reason Start Date Expiration Date V isits Requested Visits Authorized [id number] Authorized 04/09/2024 07/15/2024 99 99 Reason Comments [...] Thierno Mcnamara RN)1254 (Paused - Provider: Thierno Mcanmara RN)1315 (Restarted - Provider: Thierno Mcnamara RN)1436 [...] Lisa Cornejo RN)2043 (Restarted - Provider: Lisa Conrejo RN)2055 (Rate/Dose Verify - Provider: Lisa Cornejo [...] 50% needed, contact pharmacy or obtain from [facility] cart ++ Dextrose 50% injection 7.5-25 g(Linked [...] 50% needed, contact pharmacy or obtain from [facility] ++ glucose (GLUTOSE) 40 % oral gel [...] at 0722, Until Specified, Who to Notify: Digital Imaging Technician, Call Digital Imaging Technician if a.m. Glucose is less than 80 [...] glucose is greater than 200md/dl, then notify Digital Imaging Technician. And BLOOD GLUCOSE (POC DEVICE) (CANCELED) Routine, [...] 50% needed, contact pharmacy or obtain from [facility] cart ++ And glucose (GLUTOSE) 40 % [...] at 0739, Until Specified, Who to Notify: Digital Imaging Technician, For all Blood Glucose LESS THAN 80 mg/dl, notify Digital Imaging Technician after treatment per Hypoglycemia in Non- Adults [...] glucose is greater than 200mg/dl, then notify warehouse attendant. And BLOOD GLUCOSE (POC DEVICE) (CANCELED) Routine, [...] 50% needed, contact pharmacy or obtain from [facility] cart ++ And glucose (GLUTOSE) 40 % [...] at 0843, Until Specified, Who to Notify: Digital Imaging Technician, For all Blood Glucose LESS THAN 80 mg/dl, notify Digital Imaging Technician after treatment per Hypoglycemia in Non- Adults [...] Care Teams (unrecognized sec tion and content) Field Identification Specialist Relationship Specialty Start Date End Date Charlie Mosquera [facility] Pharmacist Infectious Disease 01/18/24 01/20/24 Ana England MD [address] [place] [address] Infectious Disease Infectious Disease 01/18/24 01/20/24 Field Identification Specialist Relationship Specialty Start Date End Date Julieta Orlando DO [address] [address] Internal Medicine 04/08/24 Field Identification Specialist Relationship Specialty Start Date End Date Fast, Julieta A, DO [address] [facility] [address] [place] [address] PCP - General Internal Medicine 04/09/24 Fast, Julieta A, DO [address] [facility] [address] [place] [address] Internal Medicine 04/08/24 Field Identification Specialist Relationship Specialty Start Date End Date Fast, Julieta A, DO [address] [facility] [address] [place] [address] PCP - General Internal Medicine 04/09/24 Fast, Julieta A, DO [address] [facility] [address] [place] [address] Internal Medicine 04/08/24 Field Identification Specialist Relationship Specialty Start Date End Date Fast, Julieta A, DO [address] [facility] [address] [place] [address] PCP - General Internal Medicine 04/09/24 Fast, Julieta A, DO [address] [facility] [address] [place] [address] Internal Medicine 04/08/24 Field Identification Specialist Relationship Specialty Start Date End Date Fast, Julieta A, DO [address] [facility] [address] [place] [address] PCP - General Internal Medicine 04/09/24 Fast, Julieta A, DO [address] [facility] [address] [place] [address] Internal Medicine 04/08/24 Field Identification Specialist Relationship Specialty Start Date End Date Fast, Julieta A, DO [address] [facility] [address] [place] [address] PCP - General Internal Medicine 04/09/24 Julieta Orlando DO [address] [facility] [address] [place] [address] Internal Medicine 04/08/24 Field Identification Specialist Relationship Specialty Start Date End Date Julieta Orlando DO [address] [facility] [address] [place] [address] PCP - General Internal Medicine 04/09/24 Julieta Orlando DO [address] [facility] [address] [place] [address] Internal Medicine 04/08/24 Field Identification Specialist Relationship Specialty Start Date End Date Julieta Orlando DO [address] [facility] [address] [place] [address] PCP - General Internal Medicine 04/09/24 Julieta Orlando DO [address] [facility] [address] [place] [address] Internal Medicine 04/08/24 Team Status: Active Member [...] 2024 End: August 19, 2024 Dr. Julieta Olrando DO Referring Provider Active St art: August 19, 2024 End: August 19, 2024 INFORMATION SOURCE (unrecogn ized section and content) DATE CREATED AUTHOR 03/02/2024 [facility] DATE CREATED AUTHOR AUTHOR'S ORGANIZ ATION 06/06/2024 [facility] DATE CREATED AUTHOR AUTHOR'S ORGANPAULINO ATION 09/05/2024 [facility] Source Comments (unrecognize d section and content) In the event this informatio n is protected by the Federal Confidentiality of Alcohol and Drug Abuse Patient Records regulations: The Federal rules restrict any use of the information to criminally investigate or prosecute any alcohol or drug abuse patient.[facility] the event this information is protected by the Federal Confidentiality of Alcohol and Drug Abuse Patient Records regulations: The Federal rules restrict any use of the information to criminally investigate or prosecute any alcohol or drug abuse patient.[facility] the event this information is protected by the Federal Confidentiality of Alcohol and Drug Abuse Patient Records regulations: The Federal rules restrict any use of the information to criminally investigate or prosecute any alcohol or drug abuse patient.[facility] the event this information is protected by the Federal Confidentiality of Alcohol and Drug Abuse Patient Records regulations: The Federal rules restrict any use of the information to criminally investigate or prosecute any alcohol or drug abuse patient.[facility] the event this information is protected by the Federal Confidentiality of Alcohol and Drug Abuse Patient Records regulations: The Federal rules restrict any use of the information to criminally investigate or prosecute any alcohol or drug abuse patient.[facility]on[facility] the event this information is protected by the Federal Confidentiality of Alcohol and Drug Abuse Patient Records regulations: The Federal rules restrict any use of the information to criminally investigate or prosecute any alcohol or drug abuse patient.[facility]on[facility] the event this information is protected by the Federal Confidentiality of Alcohol and Drug Abuse Patient Records regulations: The Federal rules restrict any use of the information to criminally investigate or prosecute any alcohol or drug abuse patient.[facility]on[facility] the event this information is protected by the Federal Confidentiality of Alcohol and Drug Abuse Patient Records regulations: The Federal rules restrict any use of the information to criminally investigate or prosecute any alcohol or drug abuse patient.[facility]on[facility] the event this information is protected by the Federal Confidentiality of Alcohol and Drug Abuse Patient Records regulations: The Federal rules restrict any use of the information to criminally investigate or prosecute any alcohol or drug abuse patient.[facility]on[facility] the event this information is protected by the Federal Confidentiality of Alcohol and Drug Abuse Patient Records regulations: The Federal rules restrict any use of the information to criminally investigate or prosecute any alcohol or drug abuse patient.[facility] Goals (unrecognized section and content) Goals may [...] BE BASED ON THE PRIMARY CLINICAL RECORDS. [facility] [email or web address] [email or web address]. provides no warranty or guarantee of the accuracy or completeness of information in this document.
--- NOTE | 2025-02-01 17:23 | PCA ---
CALLED PHYSICIANS @ [phone] ETA 90MINS FOR MANAGER RETAIL FOR [facility]
--- NOTE | 2025-02-01 17:24 | PCM.HOSP.N ---
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 Discussed with ED physician and given patient's other medical problems as discussed the patient would still be medically admitted but with an Ortho consult. Called the orthopedic doctor on-call to inform him of the consult and the reason for consult. He reviewed the patient's case and the films, he advised that this does need to be fixed but given concern for the nail being broken and the migration of the screw through the femoral head and into the acetabulum with this was a complex case and beyond our current capabilities and recommended patient be transferred to a higher level of care. Discussed with ED physician.
[2025-02-01 17:55] LABS: Reflex Lactate? Y
--- NOTE | 2025-02-01 18:21 | PCA ---
FAMILY DOES NOT WANT PATIENT TRANSFERRED, I CALLED PHYSICIANS @ [phone] AND PUT THE RIDE ON A WILL CALL, UNTIL DR. BAL DETERMINES IF WE CAN KEEP THE PATIENT HERE. I DID NOT CALL [facility] YET.
== END 2025-02-01 20:44 | disposition short-term general hospital (02) ==
LOC: ED 15:33 → PCU 16:25
PROVIDERS: Emergency Provider Internal Medicine; PCP Internal Medicine; Referring Provider Emergency Medicine; Visit Provider Internal Medicine
DX: T84.124A Displacement of internal fixation device of right femur, initial encounter (principal); E11.22 Type 2 diabetes mellitus with diabetic chronic kidney disease; N18.32 Chronic kidney disease, stage 3b; N17.9 Acute kidney failure, unspecified; E86.0 Dehydration; Z79.84 Long term (current) use of oral hypoglycemic drugs; E87.1 Hypo-osmolality and hyponatremia; I12.9 Hypertensive chronic kidney disease with stage 1 through stage 4 chronic kidney disease, or unspecified chronic kidney disease; I95.9 Hypotension, unspecified; K21.9 Gastro-esophageal reflux disease without esophagitis; Z79.899 Other long term (current) drug therapy; R41.82 Altered mental status, unspecified; R53.81 Other malaise; E03.9 Hypothyroidism, unspecified; L03.115 Cellulitis of right lower limb; G93.41 Metabolic encephalopathy; F41.9 Anxiety disorder, unspecified; F32.A Depression, unspecified; Y79.8 Miscellaneous orthopedic devices associated with adverse incidents, not elsewhere classified
CPT/HCPCS: 70450; 71046; 73502; 80053; 81001; 82550; 83605; 84443; 85025; 87040; 87077; 87086; 87088; 87186; 93005; 96361; 96365; 99285; P9612; A4216

== ENCOUNTER → 2025-05-19 | Outpatient (CLI) | payer MEDICARE, BC, SELFPAY ==
[2025-05-19 12:37] LABS: PTHIN 94 pg/mL (11-61)
[2025-05-19 12:51] LABS: AST(SGOT) 15 U/L (<=31); Alanine Aminotransfer ALT/SGPT 12 U/L (<=34); Albumin, Serum 4.3 g/dL (3.4-4.8); Alkaline Phosphatase 119 U/L (35-104); Anion Gap 9 (5-15); BUN 55 mg/dL (4-19); BUN/Creat Ratio 35.8 RATIO (10-20); Calcium,Total 10.6 mg/dL (7.6-11.0); Carbon Dioxide 29.8 mmol/L (21.0-32.0); Chloride 101 mmol/L (98-108); Cholesterol 146 mg/dL (<=200); Globulin 3.0 g/dL (2.2-4.2); Glucose 148 mg/dL (70-99); Low Density Lipoprotein Calc. 65 mg/dL; Potassium 4.9 mmol/L (3.3-5.1); Triglycerides 46 mg/dL; Very Low Density Lipoprotein 9 mg/dL (5-40); Vitamin D,25 Hydroxy 62.0 ng/mL (30-100); cholesterol:hdl ratio screen 2.08
[2025-05-20 15:08] LABS: PROEL- A/G Ratio 1.2 (0.7-1.7); PROEL- Albumin 3.9 g/dL (2.9-4.4); PROEL- Alpha-1 Globulin 0.3 g/dL (0.0-0.4); PROEL- Alpha-2 Globulin 0.8 g/dL (0.4-1.0); PROEL- Beta Globulin 0.9 g/dL (0.7-1.3); PROEL- Gamma Globulin 1.3 g/dL (0.4-1.8); PROEL- Globulin, Total 3.3 g/dL (2.2-3.9); PROEL- TOTAL PROTEIN 7.2 g/dL (6.0-8.5); PROEL-M-Spike Comment: g/dL (Not Observed)
[2025-05-22 15:08] LABS: PROELU- Albumin, Urine 46.3 % (.); PROELU- Alpha-1-Globulin,Ur 5.9 % (.); PROELU- Alpha-2-Globulin,Ur 9.8 % (.); PROELU- Beta Globulin, Ur 22.0 % (.); PROELU- Gamma Globulin, Ur 16.1 % (.); Total Protein, Ur 21.9 mg/dL (Not Estab.)
== END | disposition home or self-care (01) ==
PROVIDERS: PCP Internal Medicine; Referring Provider Internal Medicine; Visit Provider Internal Medicine
DX: I11.9 Hypertensive heart disease without heart failure (principal); E78.5 Hyperlipidemia, unspecified; E55.9 Vitamin D deficiency, unspecified; D47.2 Monoclonal gammopathy
CPT/HCPCS: 80053; 80061; 82306; 83970; 84165; 84166

== ENCOUNTER → 2025-07-07 | Outpatient (CLI) | payer MEDICARE, BC, SELFPAY ==
[2025-07-07 10:02] LABS: Hematocrit 38.8 % (37-47); Hemoglobin 12.4 g/dL (12.0-15.0); Immature Granulocytes Count 0.020 X10^3/uL (0.0-0.0); Mean Corp Hgb Conc 32.0 g/dL (32-36); Mean Corpuscular Volume 87.6 fL (81-99); Mean Platelet Vol. 10.3 fl (6.2-12.0); NRBC Flagged by Analyzer 0 % (0-5); Platelet Count 322 K/mm3 (150-450); RBC Distribution Width CV 12.7 % (11.6-14.6); RBC Distribution Width SD 40.9 fl (35.1-43.9); Red Blood Count 4.43 M/mm3 (4.2-5.4); White Blood Count 6.7 K/mm3 (4.4-11.0)
[2025-07-07 10:33] LABS: AST(SGOT) 18 U/L (<=31); Alanine Aminotransfer ALT/SGPT 8 U/L (<=34); Albumin, Serum 4.5 g/dL (3.4-4.8); Alkaline Phosphatase 106 U/L (35-104); Anion Gap 13 (7-18); BUN 42 mg/dL (4-19); BUN/Creat Ratio 28.9 RATIO (10-20); Calcium,Total 10.8 mg/dL (7.6-11.0); Carbon Dioxide 27.2 mmol/L (20.0-29.0); Chloride 96 mmol/L (96-106); Cholesterol 187 mg/dL (<=200); Globulin 3.3 g/dL (2.2-4.2); Glucose 140 mg/dL (70-99); Low Density Lipoprotein Calc. 104 mg/dL; Potassium 4.0 mmol/L (3.5-5.1); Triglycerides 89 mg/dL; Very Low Density Lipoprotein 18 mg/dL (5-40); cholesterol:hdl ratio screen 2.80
[2025-07-11 14:08] LABS: Immunofixation Result, Serum Comment: (.); Immunoglobulin A 203 mg/dL (64-422); Immunoglobulin G 1367 mg/dL (586-1602); Immunoglobulin M 284 mg/dL (26-217)
== END | disposition home or self-care (01) ==
LOC: CIMLAB 08:32
PROVIDERS: PCP Internal Medicine; Referring Provider Internal Medicine; Visit Provider Internal Medicine
DX: E11.65 Type 2 diabetes mellitus with hyperglycemia (principal); D47.2 Monoclonal gammopathy; E78.5 Hyperlipidemia, unspecified
CPT/HCPCS: 36415; 80053; 80061; 82784; 83036; 83883; 85025; 86334; 86335